=== PATIENT | male | born 1990 | race Caucasian/White ===

== ENCOUNTER 2016-09-28 07:56 | Emergency (ER) | payer OTHER ==
[~2016-09-28] VITALS: Ht 170.2 cm; Wt 68.0 kg
[2016-09-28 08:00] VITALS: BP 117/61; PULSE 117; RESP 18; TEMP 97.5; O2SAT 98
[2016-09-28] MEDS ORDERED: predniSONE 20 MG TAB PO ONE (08:30)
[2016-09-28] MEDS ORDERED: SODIUM CHLOR 0.9% 1000 ML INJ 1,000 ML IV ONE (08:30)
--- NOTE | 2016-09-28 08:33 | PD ---
HPI Chief Complaint: General Weakness Time Seen by Provider: 08:12 Travel History International Travel<30 days: No Contact w/Intl Traveler<30days: No Traveled to known affect area: No History of Present Illness HPI This patient reports that he had some low-grade fever and congestion. 10 days ago he was started on antibiotics which she doesn't know the name of. Shortly thereafter his hands became bright red and irritated and he started to get some peeling of his feet. No involvement of other mucous membranes. He feels lightheaded and some generalized weakness. Symptoms severity is moderate. No longer has fever. He has no vomiting or diarrhea or cough or runny nose or congestion at this time. No syncope. No alleviating factors. PFSH Past Medical History ADHD: Yes Musculoskeletal: Yes (degenerative disc ) ?: Not Social History Alcohol Use: No Tobacco Use: No Substance Use: No Allergies-Medications (Allergen,Severity, Reaction): Coded Allergies: Sulfa (Verified Allergy, Unknown, 09/28/16) Toradol (Verified Allergy, Unknown, 09/28/16) Review of Systems General / Constitutional: No: Fever Eyes: No: Visual changes HENT: Positive: Lightheadedness, No: Headaches Cardiovascular: Positive: Tachycardia, No: Chest Pain or Discomfort Respiratory: No: Shortness of Breath Gastrointestinal: No: Abdominal Pain Genitourinary: No: Dysuria Musculoskeletal: Positive: Weakness, No: Pain Skin: Positive Rash, Positive Itching, Positive Change in Pigmentation Neurologic: Positive: Weakness, Dizziness Psychiatric: No: Depression Endocrine: No: Polydipsia Hematologic/Lymphatic: No: Easy Bruising Physical Exam Narrative GENERAL: Well-nourished, well-developed patient in no apparent distress. SKIN: Focused skin assessment reveals prominent macular erythema of both hands but no where else. A bit of peeling skin on the soles of the feet but no erythema there. Skin is Warm and dry. HEAD: Atraumatic. Normocephalic. EYES: Pupils equal and round. No scleral icterus. No injection or drainage. ENT: No nasal bleeding or discharge. Mucous membranes pink and moist. NECK: Trachea midline. No JVD. CARDIOVASCULAR: Regular rate and rhythm. No murmur appreciated. Heart rate 115 RESPIRATORY: No accessory muscle use. Clear to auscultation. Breath sounds equal bilaterally. GASTROINTESTINAL: Abdomen soft, non-tender, nondistended. Hepatic and splenic margins not palpable. MUSCULOSKELETAL: No obvious deformities. No clubbing. No cyanosis. No edema. NEUROLOGICAL: Awake and alert. No obvious cranial nerve deficits. Motor grossly within normal limits. Normal speech. PSYCHIATRIC: Appropriate mood and affect; insight and judgment normal. Data Data Last Documented VS Vital Signs Date Time Temp Pulse Resp B/P Pulse Ox O2 Delivery O2 Flow Rate FiO2 09/28/16 09:54 117 18 111/60 96 Room Air 09/28/16 08:00 97.5 Orders Iv Access Insert/Monitor (09/28/16 08:24) Complete Blood Count With Diff (09/28/16 08:24) Basic Metabolic Panel (Bmp) (09/28/16 08:24) Westergren Sedimentation Rate (09/28/16 08:24) Sodium Chlor 0.9% 1000 Ml Inj (Ns 1000 M (09/28/16 08:30) Prednisone (Deltasone) (09/28/16 08:30) Labs Laboratory Tests Test 09/28/16 08:30 White Blood Count 13.7 TH/MM3 Red Blood Count 3.41 MIL/MM3 Hemoglobin 10.2 GM/DL Hematocrit 29.4 % Mean Corpuscular Volume 86.4 FL Mean Corpuscular Hemoglobin 30.0 PG Mean Corpuscular Hemoglobin 34.8 % Concent Red Cell Distribution Width 13.2 % Platelet Count 164 TH/MM3 Mean Platelet Volume 7.6 FL Neutrophils (%) (Auto) 91.3 % Lymphocytes (%) (Auto) 3.0 % Monocytes (%) (Auto) 5.3 % Eosinophils (%) (Auto) 0.1 % Basophils (%) (Auto) 0.3 % Neutrophils # (Auto) 12.5 TH/MM3 Lymphocytes # (Auto) 0.4 TH/MM3 Monocytes # (Auto) 0.7 TH/MM3 Eosinophils # (Auto) 0.0 TH/MM3 Basophils # (Auto) 0.0 TH/MM3 CBC Comment AUTO DIFF Differential Total Cells 100 Counted Neutrophils % (Manual) 70 % Band Neutrophils % 18 % Lymphocytes % 6 % Monocytes % 5 % Basophils % 1 % Neutrophils # (Manual) 12.1 TH/MM3 Differential Comment FINAL DIFF MANUAL Platelet Estimate NORMAL Platelet Morphology Comment NORMAL Red Cell Morphology Comment NORMAL Erythrocyte Sedimentation Rate 82 mm/hr Sodium Level 135 MEQ/L Potassium Level 3.8 MEQ/L Chloride Level 99 MEQ/L Carbon Dioxide Level 24.9 MEQ/L Anion Gap 11 MEQ/L Blood Urea Nitrogen 28 MG/DL Creatinine 1.24 MG/DL Estimat Glomerular Filtration 70 ML/MIN Rate Random Glucose 161 MG/DL Calcium Level 8.8 MG/DL MDM Medical Decision Making Medical Screen Exam Complete: Yes Emergency Medical Condition: Yes Medical Record Reviewed: Yes Differential Diagnosis Allergic reaction, adverse side effect of medication, rheumatologic illness Narrative Course I have reviewed the patient's electronic medical record. Etiology of his presentation is not entirely clear. I think most likely some type of allergic reaction to antibiotic he is taking. He has tachycardia and some vague generalized symptoms. The only real objective finding is skin exam of hands and feet. No involvement of oral cavity or other mucous membranes. IV placed I gave him 1 L normal saline IV CBC shows some minor abnormalities Metabolic profile shows normal renal function Sedimentation rate is elevated at 82 I gave him 60 mg of prednisone and 1 L normal saline IV bolus He should call his primary physician when he gets home to get follow-up. I'm writing him 5 days of prednisone I don't believe this is infectious He will stop his antibiotics which I don't think he needs at this point and may be the cause of his problem Is not Carlos-Heriberto syndrome Diagnosis Primary Impression: Allergic reaction caused by a drug Qualified Code: T78.40XA - Allergic reaction caused by a drug, initial encounter Additional Impressions: Dizziness Rash and nonspecific skin eruption Additional Instructions: The patient was advised to follow up with their physician and return if they worsen. Take prednisone for the next 5 days Use Benadryl every 6 hours for the next 2 days but watch for sedation Stop antibiotics Med/Other Pt SpecificInfo: Prescription(s) given Scripts Prednisone 20 Mg Tab40 Mg PO DAILY #10 TAB Ref 0 Take 40 mg (2 tablets) daily for 5 days Prov:Stephen Mcginnis MD 09/28/16 Disposition: 01 DISCHARGE HOME Condition: Stable Stephen Mcginnis MD September 28, 2016 08:32
[2016-09-28 08:59] LABS: AUTOMATED NEUTROPHIL # 12.5 TH/MM3 (1.8-7.7); BASOPHIL % 0.3 % (0.0-2.0); EOSINOPHIL % 0.1 % (0.0-4.0); HEMATOCRIT 29.4 % (39.0-51.0); LYMPHOCYTE # 0.4 TH/MM3 (1.0-4.8); MEAN CELL VOLUME 86.4 FL (80.0-100.0); MEAN CORPUSCULAR HGB CONC 34.8 % (32.0-36.0); MONO % 5.3 % (0.0-8.0); NEUT % 91.3 % (16.0-70.0); PLATELET COUNT 164 TH/MM3 (150-450); RED BLOOD COUNT 3.41 MIL/MM3 (4.50-5.90); RED CELL DISTRIBUTION WIDTH 13.2 % (11.6-17.2); WHITE BLOOD COUNT 13.7 TH/MM3 (4.0-11.0)
[2016-09-28 09:03] LABS: HEMO FLAGS AUTO DIFF
[2016-09-28 09:12] LABS: BICARBONATE 24.9 MEQ/L (21.0-32.0); POTASSIUM 3.8 MEQ/L (3.5-5.1)
[2016-09-28 09:54] VITALS: BP 111/60; PULSE 117; RESP 18; O2SAT 96
[2016-09-28 09:57] LABS: BANDS 18 % (0-6); BASOPHILS 1 % (0-2); NEUTROPHIL # MANUAL DIFF 12.1 TH/MM3 (1.8-7.7); POLYS (SEG NEUTROPHILS) 70 % (16-70); WBC DIFF SAMPLE 100
[2016-09-28 09:58] LABS: PLATELET ESTIMATE SMEAR NORMAL (NORMAL); PLATELET MORPHOLOGY NORMAL (NORMAL); SCAN/DIFF FINAL DIFF MANUAL
[2016-09-28] MEDS ORDERED: PRED20 PO (11:08)
== END 2016-09-28 11:22 | disposition home or self-care (01) ==
LOC: NEPE 07:56
DX: L27.0 Generalized skin eruption due to drugs and medicaments taken internally (principal); T36.95XA Adverse effect of unspecified systemic antibiotic, initial encounter; R42 Dizziness and giddiness; R50.9 Fever, unspecified; R00.0 Tachycardia, unspecified
CPT/HCPCS: 80048; 85007; 85027; 85652; 99284; J7030; J7512

== ENCOUNTER 2016-09-30 14:48 | Inpatient (IN) | payer OTHER ==
[2016-09-30] VITALS (22 sets, daily range): BP systolic 83–147; BP diastolic 40–73; PULSE 127–162; RESP 14–28; TEMP 102.3–104.7; O2SAT 94–100
[~2016-09-30] VITALS: Ht 172.7 cm; Wt 71.5 kg
[~2016-09-30 14:48] MED LIST: PRED20 PO
[2016-09-30] MEDS ORDERED: TYLETAB34 PO (14:55)
[2016-09-30] MEDS ORDERED: ACYC200C66 PO (14:55)
[2016-09-30] MEDS ORDERED: fentaNYL DRIP 250 ML IV SCH (15:00)
[2016-09-30] MEDS ORDERED: ROCURONIUM INJ 50 MG/5 ML VIAL IV ONE (15:00)
[2016-09-30] MEDS ORDERED: fentaNYL DRIP 250 ML ONE (15:00)
[2016-09-30] MEDS ORDERED: SODIUM CHLOR 0.9% 1000 ML INJ 1,000 ML IV ONE ×3 (15:00→15:15)
[2016-09-30] MEDS ORDERED: ETOMIDATE 20 MG/10 ML VIAL IV PUSH ONE (15:00)
[2016-09-30] MEDS ORDERED: MIDAZOLAM 100 MG/ML INJ 100 ML ONE (15:00)
[2016-09-30] MEDS ORDERED: MIDAZOLAM 100 MG/ML INJ 100 ML IV SCH (15:00)
[2016-09-30] MEDS ORDERED: MECL25CH CHEW (15:13)
[2016-09-30] MEDS ORDERED: IBUP-232 PO (15:13)
[2016-09-30] MEDS ORDERED: cefTRIAXone INJ 2,000 MG in SODIUM CHLORIDE 0.9% INJ 100 ML IV ONE (15:15)
[2016-09-30] MEDS ORDERED: PIPERACIL-TAZO 3.375 GM PREMIX 50 ML IV ONE (15:15)
[2016-09-30] MEDS ORDERED: VANCOMYCIN INJ 1,000 MG in SODIUM CHLOR 0.9% 250 ML INJ 250 ML IV ONE (15:15)
--- NOTE | 2016-09-30 15:26 | PD ---
HPI Chief Complaint: Altered Mental Status Time Seen by Provider: 14:50 Travel History International Travel<30 days: No Contact w/Intl Traveler<30days: No Traveled to known affect area: No History of Present Illness HPI 26 years old male was brought in by EMS for altered mental status. Patient was last seen normal by the landlord 2 days ago. Patient was seen in emergency room 2 days ago for diagnosis of allergic reaction. Patient reported that he had low-grade fever and congestion at the visit 2 days ago. Patient was seen 10 days before that by unknown physician and was given antibiotic. Patient state to the physician at last visit that he does not know the name of the medication. Shortly after taking the antibiotic patient complains of red rash on the hands and peeling on his feet. Patient complains of generalized weakness and lightheadedness at that visit. Patient states that the fever subsided on the day of examination. Patient was given prescription for prednisone 40 mg daily for 5 days. Patient was advised to follow with local physician. Patient's landlord palpation with altered mental status today. EMS was called. Patient was with severe lethargy and unable to give information today. GCS was 10 at the scene. Family members call. Patient has a rash on the hands and feet for the past 2 weeks. Patient has been seen by local physicians for the rash. Family member states that the rash was painful with swelling of the hand and feet. The rash finally got better recently. Family member states the patient is allergic to sulfa, Toradol, penicillin, hydrocodone, codeine. Family member states that patient has history of substance abuse and was in rehabilitation recently. Last rehabilitation was a year ago. PFSH Past Medical History Medical History: Unable to Obtain ADHD: Yes Musculoskeletal: Yes (degenerative disc ) Influenza Vaccination: No Past Surgical History Surgical History: Unable to Obtain Social History Alcohol Use: No Tobacco Use: No Substance Use: No (uto) Allergies-Medications (Allergen,Severity, Reaction): Coded Allergies: Sulfa (Verified Allergy, Unknown, 09/30/16) Toradol (Verified Allergy, Unknown, 09/30/16) Reported Meds & Prescriptions Reported Meds & Active Scripts Active Prednisone 20 Mg Tab 40 Mg PO DAILY Take 40 mg (2 tablets) daily for 5 days Reported Ibuprofen 600 Mg Tab 600 Mg PO Q6H PRN Meclizine (Meclizine HCl) 25 Mg Chew 25 Mg CHEW DIRECTED PRN Acyclovir 200 Mg Cap 200 Mg PO 5 TIMES A DAY Tylenol-Codeine #3 (Acetaminophen-Codeine) 300-30 mg Tab 1 Tab PO Q4H PRN Review of Systems ROS Limitations: Altered Mental Status Physical Exam Narrative GENERAL: Well-nourished, well-developed patient. SKIN: Focused skin assessment warm/dry. Patient has red macular rash on the feet bilaterally to the ankle. Patient has red macular rash on both knees. Patient has sloughing of the skin on the right big toe. Patient has redness discoloration of both palms of the hands. HEAD: Normocephalic. EYES: No scleral icterus. No injection or drainage. Pupils 3 mm equal reactive. NECK: Supple, trachea midline. No JVD or lymphadenopathy. Patient moves the head and neck around freely. Oral mucous membranes extremely dry. CARDIOVASCULAR: Tachycardia rate and rhythm without murmurs, gallops, or rubs. RESPIRATORY: Breath sounds equal bilaterally. No accessory muscle use. GASTROINTESTINAL: Abdomen soft, non-tender, nondistended. MUSCULOSKELETAL: No cyanosis, or edema. BACK: Nontender without obvious deformity. No CVA tenderness. Neurologic exam: Patient's obtunded. Patient responded to painful stimuli. Deep tendon reflexes 2+ and equal. Negative Babinski. Data Data Last Documented VS Vital Signs Date Time Temp Pulse Resp B/P Pulse Ox O2 Delivery O2 Flow Rate FiO2 09/30/16 17:06 130 14 115/55 97 09/30/16 16:58 Ventilator 09/30/16 16:50 40 09/30/16 14:51 102.3 Orders Etomidate Inj (Amidate Inj) (09/30/16 15:00) Rocuronium Inj (Zemuron Inj) (09/30/16 15:00) Sodium Chlor 0.9% 1000 Ml Inj (Ns 1000 M (09/30/16 15:00) Sodium Chlor 0.9% 1000 Ml Inj (Ns 1000 M (09/30/16 15:00) Neurological Rass Scale Q30MX2,Q2HX4,Q4H (09/30/16 14:50) Fentanyl Drip (Fentanyl Drip) (09/30/16 15:00) Midazolam Inj (Versed Inj) (09/30/16 15:00) Neurological Rass Scale Q30MX2,Q2HX4,Q4H (09/30/16 14:50) Lactic Acid Sepsis Protocol (09/30/16 14:52) Electrocardiogram (09/30/16 14:53) Complete Blood Count With Diff (09/30/16 14:53) Comprehensive Metabolic Panel (09/30/16 14:53) Creatine Kinase (Cpk) (09/30/16 14:53) Troponin I (09/30/16 14:53) Prothrombin Time / Inr (Pt) (09/30/16 14:53) Act Partial Throm Time (Ptt) (09/30/16 14:53) Arterial Blood Gas (Abg) (09/30/16 14:53) Blood Culture (09/30/16 14:53) Urinalysis - C+S If Indicated (09/30/16 14:53) Magnesium (Mg) (09/30/16 14:53) Thyroid Stimulating Hormone (09/30/16 14:53) Phosphorus (Po4) (09/30/16 14:53) Chest, Single Ap (09/30/16 14:53) Ct Brain W/O Iv Contrast(Rout) (09/30/16 14:53) Iv Access Insert/Monitor (09/30/16 14:53) Ecg Monitoring (09/30/16 14:53) Oximetry (09/30/16 14:53) Urinary Catheter Insert/Apply (09/30/16 14:53) Drug Screen, Random Urine (09/30/16 14:53) Alcohol (Ethanol) (09/30/16 14:53) Salicylates (Aspirin) (09/30/16 14:53) Tylenol (Acetaminophen) (09/30/16 14:53) Midazolam Inj (Versed Inj) (09/30/16 15:00) Fentanyl Drip (Fentanyl Drip) (09/30/16 15:00) Ceftriaxone Inj (Rocephin Inj) (09/30/16 15:15) Vancomycin Inj (Vancomycin Inj) (09/30/16 15:15) Piperacil-Tazo 3.375 Gm Premix (Zosyn 3. (09/30/16 15:15) Sodium Chlor 0.9% 1000 Ml Inj (Ns 1000 M (09/30/16 15:15) Diltiazem Inj (Cardizem Inj) (09/30/16 15:30) Propofol 1000 Mg/100 Ml Inj (Diprivan 10 (09/30/16 16:30) Propofol 1000 Mg/100 Ml Inj (Diprivan 10 (09/30/16 16:27) Lorazepam Inj (Ativan Inj) (09/30/16 16:30) Lorazepam Inj (Ativan Inj) (09/30/16 16:29) CKMB (09/30/16 15:15) CKMB% (09/30/16 15:15) Mri Brain W&W/O Contrast (09/30/16 16:59) Norepinephrine-Dextrose Drip (Levophed-D (09/30/16 17:15) Terbutaline Inj (Brethine Inj) (09/30/16 17:15) Labs Laboratory Tests Test 09/30/16 09/30/16 09/30/16 09/30/16 14:53 15:00 15:05 15:15 Blood Gas Puncture Site RT Blood Gas Patient Temperature 98.6 Blood Gas HCO3 21 mmol/L Blood Gas Base Excess -3.3 mmol/L Blood Gas Oxygen Saturation 98 % Arterial Blood pH 7.38 Arterial Blood Partial 36 mmHg Pressure CO2 Arterial Blood Partial 215 mmHG Pressure O2 Arterial Blood Oxygen Content 13.5 Vol % Arterial Blood 0.7 % Carboxyhemoglobin Arterial Blood Methemoglobin 0.5 % Blood Gas Hemoglobin 9.4 G/DL Oxygen Delivery Device VENTILATOR Blood Gas Ventilator Setting AC14/500/5PEEP Blood Gas Inspired Oxygen 60 % Lactic Acid Level 3.7 mmol/L Urine Color YELLOW Urine Turbidity HAZY Urine pH 5.5 Urine Specific [place] 1.014 Urine Protein 30 mg/dL Urine Glucose (UA) NEG mg/dL Urine Ketones NEG mg/dL Urine Occult Blood SMALL Urine Nitrite NEG Urine Bilirubin NEG Urine Urobilinogen LESS THAN 2.0 MG/DL Urine Leukocyte Esterase SMALL Urine RBC 1 /hpf Urine WBC 5 /hpf Microscopic Urinalysis Comment CULT NOT INDICATED Urine Opiates Screen POS Urine Barbiturates Screen NEG Urine Amphetamines Screen POS Urine Benzodiazepines Screen NEG Urine Cocaine Screen NEG Urine Cannabinoids Screen NEG White Blood Count 19.7 TH/MM3 Red Blood Count 3.33 MIL/MM3 Hemoglobin 9.9 GM/DL Hematocrit 29.2 % Mean Corpuscular Volume 87.5 FL Mean Corpuscular Hemoglobin 29.8 PG Mean Corpuscular Hemoglobin 34.0 % Concent Red Cell Distribution Width 13.9 % Platelet Count 163 TH/MM3 Mean Platelet Volume 8.3 FL Neutrophils (%) (Auto) 87.4 % Lymphocytes (%) (Auto) 5.1 % Monocytes (%) (Auto) 6.4 % Eosinophils (%) (Auto) 0.9 % Basophils (%) (Auto) 0.2 % Neutrophils # (Auto) 17.2 TH/MM3 Lymphocytes # (Auto) 1.0 TH/MM3 Monocytes # (Auto) 1.3 TH/MM3 Eosinophils # (Auto) 0.2 TH/MM3 Basophils # (Auto) 0.0 TH/MM3 CBC Comment AUTO DIFF Differential Comment AUTO DIFF CONFIRMED Platelet Estimate NORMAL Platelet Morphology Comment NORMAL Red Cell Morphology Comment NORMAL Prothrombin Time 13.6 SEC Prothromb Time International 1.2 RATIO Ratio Activated Partial 28.2 SEC Thromboplast Time Sodium Level 147 MEQ/L Potassium Level 4.7 MEQ/L Chloride Level 110 MEQ/L Carbon Dioxide Level 26.6 MEQ/L Anion Gap 10 MEQ/L Blood Urea Nitrogen 54 MG/DL Creatinine 1.69 MG/DL Estimat Glomerular Filtration 49 ML/MIN Rate Random Glucose 160 MG/DL Calcium Level 8.8 MG/DL Phosphorus Level 4.0 MG/DL Magnesium Level 2.7 MG/DL Total Bilirubin 0.8 MG/DL Aspartate Amino Transf 91 U/L (AST/SGOT) Alanine Aminotransferase 72 U/L (ALT/SGPT) Alkaline Phosphatase 175 U/L Total Creatine Kinase 372 U/L Creatine Kinase MB 7.6 NG/ML Creatine Kinase MB % 2.0 % Troponin I 11.90 NG/ML Total Protein 7.3 GM/DL Albumin 2.4 GM/DL Thyroid Stimulating Hormone 0.160 uIU/ML 3rd Gen Salicylates Level LESS THAN 1.7 MG/DL Acetaminophen Level LESS THAN 2.0 MCG/ML Ethyl Alcohol Level LESS THAN 3 MG/DL MDM Medical Decision Making Medical Screen Exam Complete: Yes Emergency Medical Condition: Yes Interpretation(s) Last Impressions Chest X-Ray 09/30/16 3426 Signed Impressions: Service Date/Time: Friday, September 30, 2016 15:23 - CONCLUSION: No acute cardiopulmonary disease demonstrated. Appropriate endotracheal tube tip position. Nasogastric tube courses into the stomach, tip not included on the study. Michael Freitas MD 1607 p.m. CBC WBC 19.7. Hemoglobin 9.9 hematocrit 29.2. 87 neutrophil. UA is negative. ABG pH 7.38. PCO2 36. PO2 215. Patient on 60 % O2 ventilator setting 17 11 PM. BUN 54. Creatinine 1.69. GFR 49. Glucose 160. Lactic acid 3.7. Magnesium 2.7. Troponin 11.90. Alkaline phosphatase 175. Total CK 372. Normal MB fraction. Troponin 11.90. TSH 0.16. Salicylate and acetaminophen level normal. Urine drug screen positive for opiates and amphetamine. Alcohol negative. Differential Diagnosis Differential diagnosis including sepsis, meningitis, dehydration, electrolyte imbalance, substance abuse. Narrative Course 26 years old male with altered mental status, rash on the feet. Patient critically ill. Patient's obtunded. Patient was intubated. Normal saline solution 3 L IV bolus. Rocephin 2 g IV. Vancomycin 1 g IV. Fentanyl, Versed , propofol drip started. Jerez catheter inserted. Family reported allergies to penicillin. Zosyn was ordered originally and then canceled. Critical Care Narrative Aggregate critical care time was 60 minutes. Time to perform other separately billable procedures was not included in the critical care time. My time did not include minutes spent treating any other patients simultaneously or on activities that did not directly contribute to the patient's treatment. The services I provided to this patient were to treat and/or prevent clinically significant deterioration that could result in: I provided critical care services requiring my management, as noted below: Chart data review, documentation time, medication orders and management, vital sign assessments/reviewing monitor data, ordering and reviewing lab tests, ordering and interpreting/reviewing x-rays and diagnostic studies, care of the patient and discussion of the patient with the admitting physicians. Procedures Procedure Narrative After the risks and benefits were discussed the following procedure was performed: INTUBATION: The patient was put in optimal position for the procedure. Rapid sequence intubation was initiated by me using 20 milligrams of etomidate IV and 50 milligrams of rocuronium IV. The patient was intubated with a 8 Indonesian cuffed endotracheal tube. Tube placement was confirmed by visualization of the tube and balloon passing through the cords, capnometry and subsequent chest x- ray. Breath sounds were equal and well aerated bilaterally postintubation. No breath sounds over stomach. Patient tolerated procedure well. Diagnosis Primary Impression: Sepsis Qualified Code: A41.9 - Sepsis, due to unspecified organism Additional Impressions: Intracranial hemorrhage Brain abscess Substance abuse Respiratory failure Qualified Code: J96.01 - Acute respiratory failure with hypoxia and hypercapnia Elevated troponin Admitting Information Admitting Physician Requests: Admit Edwin Macedo MD September 30, 2016 15:26
[2016-09-30] MEDS ORDERED: DILTIAZEM HCL 25 MG/5 ML VIAL IV ONE (15:30)
--- NOTE | 2016-09-30 15:41 | RADRPT ---
EXAM DATE/TIME: 09/30/2016 15:23 [facility] COMPARISON: No previous studies available for comparison. INDICATIONS : Post intubation, chest pain. MEDICAL HISTORY : None. SURGICAL HISTORY : None. ENCOUNTER: Initial ACUITY: 1 day PAIN SCORE: 0/10 LOCATION: Bilateral chest FINDINGS: No focal infiltrate demonstrated. No perceptible effusion. No pneumothorax. Heart size within normal limits. Endotracheal tube tip is approximately 4 cm above the syeda. There is a nasogastric tube coursing in to the stomach. CONCLUSION: No acute cardiopulmonary disease demonstrated. Appropriate endotracheal tube tip position. Nasogastri c tube courses into the stomach, tip not included on the study. Michael Freitas MD on September 30, 2016 at 15:38 Board Certified Radiologist. This report was verified electronically.
[2016-09-30 15:45] LABS: AUTOMATED NEUTROPHIL # 17.2 TH/MM3 (1.8-7.7); BASOPHIL % 0.2 % (0.0-2.0); EOSINOPHIL # 0.2 TH/MM3 (0-0.4); EOSINOPHIL % 0.9 % (0.0-4.0); HEMATOCRIT 29.2 % (39.0-51.0); LYMPH % 5.1 % (9.0-44.0); MEAN CELL VOLUME 87.5 FL (80.0-100.0); MEAN CORPUSCULAR HEMOGLOBIN 29.8 PG (27.0-34.0); MONO % 6.4 % (0.0-8.0); NEUT % 87.4 % (16.0-70.0); PLATELET COUNT 163 TH/MM3 (150-450); RED BLOOD COUNT 3.33 MIL/MM3 (4.50-5.90); RED CELL DISTRIBUTION WIDTH 13.9 % (11.6-17.2); WHITE BLOOD COUNT 19.7 TH/MM3 (4.0-11.0)
[2016-09-30 15:48] LABS: HEMO FLAGS AUTO DIFF
[2016-09-30 15:51] LABS: BLOOD GAS BASE EXCESS -3.3 mmol/L (-2-2); BLOOD GAS CARBOXYHEMOGLOBIN 0.7 % (0-4); BLOOD GAS HCO3 21 mmol/L (22-26); BLOOD GAS METHEMOGLOBIN 0.5 % (0-2); BLOOD GAS O2 HGB SATURATION 98 % (90-100); BLOOD GAS OXYGEN CONTENT 13.5 Vol % (12.0-20.0); BLOOD GAS PCO2 36 mmHg (38-42); BLOOD GAS PO2 215 mmHG (61-120); BLOOD GAS TOTAL HGB 9.4 G/DL (12.0-16.0); CRITICAL VALUE NO; DRAW SITE RT; FIO2 60 %; NUMBER OF ARTERIAL PUNCTURES 1; OXYGEN DEVICE VENTILATOR; STAT YES; TEMP CORR TO 98.6; ULNAR PULSE Y; VENT SETTINGS AC14/500/5PEEP
[2016-09-30 16:02] LABS: APTT (PATIENT) 28.2 SEC (24.3-30.1); INTERNATIONAL NORMALIZED RATIO 1.2 RATIO; PROTHROMBIN TIME - PATIENT 13.6 SEC (9.8-11.6)
[2016-09-30 16:03] LABS: AMPHETAMINE, URINE POS (NEG); BARBITURATES, URINE NEG (NEG); COCAINE, URINE NEG (NEG)
[2016-09-30 16:05] LABS: BLOOD, URINE SMALL (NEG); COMMENT (UR) CULT NOT INDICATED; CULTURE IF INDICATED CULT NOT INDICATED; GLUCOSE,URINE NEG (NEG); KETONE, URINE NEG (NEG); NITRITE,URINE NEG (NEG); PH, URINE 5.5 (5.0-8.5); URINE COLOR YELLOW (YELLW/STRAW)
[2016-09-30 16:11] LABS: PLATELET ESTIMATE SMEAR NORMAL (NORMAL); PLATELET MORPHOLOGY NORMAL (NORMAL); SCAN/DIFF AUTO DIFF CONFIRMED
[2016-09-30 16:27] LABS: ALKALINE PHOSPHATASE 175 U/L (45-117); ALT (GPT) 72 U/L (12-78); ANION GAP 10 MEQ/L (5-15); AST (GOT) 91 U/L (15-37); BICARBONATE 26.6 MEQ/L (21.0-32.0); BLOOD UREA NITROGEN 54 MG/DL (7-18); CHLORIDE 110 MEQ/L (98-107); CREATINE KINASE 372 U/L (39-308); GLOMERULAR FILTRATION RATE 49 ML/MIN (>89); MAGNESIUM 2.7 MG/DL (1.5-2.5); POTASSIUM 4.7 MEQ/L (3.5-5.1); SODIUM (NA) 147 MEQ/L (136-145); TOTAL BILIRUBIN ADULT 0.8 MG/DL (0.2-1.0)
[2016-09-30] MEDS ORDERED: PROPOFOL 1000 MG/100 ML INJ 100 ML ONE (16:27)
[2016-09-30] MEDS ORDERED: LORazepam 2 MG/ML VIAL ONE (16:29)
[2016-09-30] MEDS ORDERED: PROPOFOL 1000 MG/100 ML INJ 100 ML IV SCH (16:30)
[2016-09-30] MEDS ORDERED: LORazepam 2 MG/ML VIAL IV PUSH ONE (16:30)
[2016-09-30 16:31] LABS: ACETAMINOPHEN LESS THAN 2.0 MCG/ML (10.0-30.0)
[2016-09-30 16:48] LABS: CKMB 7.6 NG/ML (0.5-3.6)
--- NOTE | 2016-09-30 16:55 | RADRPT ---
EXAM DATE/TIME: 09/30/2016 16:31 [facility] COMPARISON: No previous studies available for comparison. INDICATIONS : Altered mental status. RADIATION DOSE: 56.35 CTDIvol (mGy) MEDICAL HISTORY : Non-responsive. SURGICAL HISTORY : Non-responsive. ENCOUNTER: Initial ACUITY: 1 day PAIN SCALE: 10/10 LOCATION: cranial TECHNIQUE: Multiple contiguous axial images were obtained of the head. Using automated exposure control and adj ustment of the mA and/or kV according to patient size, radiation dose was kept as low as reasonably a chievable to obtain optimal diagnostic quality images. FINDINGS: Vague areas of cerebral edema are seen in the right frontal and temporal lobes. A focal area falcine area of low-attenuation is seen in the left posterior parietal lobe, measures 17 mm in size. A simila r area measuring about 10 mm in size is seen along the anterior margin of the right thalamus. There i s approximate 3 mm of leftward midline shift. There is small subarachnoid blood in the sulci of the right high parietal lobe, to a lesser exte nt in between the leaves of the falx and the sulci of the left high parietal lobe.. No other intracra nial hemorrhage demonstrated. Skull is intact. A 2 cm mucous retention cyst is seen of the right sphenoid sinus. Visualized pa ranasal sinuses are otherwise clear. CONCLUSION: Noncontrast CT findings of concern for multiple intra-axial masses. There is small acute subarachnoid blood present and about 3 mm of leftward midline shift. MRI of the brain with and without contrast r ecommended. Michael Freitas MD on September 30, 2016 at 16:47 Board Certified Radiologist. This report was verified electronically.
[2016-09-30] MEDS ORDERED: TERBUTALINE INJ 1 MG/ML AMP SQ PRN (17:15)
[2016-09-30] MEDS ORDERED: NOREPINEPHRINE-DEXTROSE DRIP 250 ML IV SCH (17:15)
[2016-09-30 17:30] LABS: LACTIC ACID GHOST NOT REPORTABLE
[2016-09-30] MEDS ORDERED: Vancomycin Consult Pharmacy 1 EA OTHER SCH (17:30)
[2016-09-30] MEDS ORDERED: CHLORHEXIDINE GLUCONATE 2 % 1 PACK (2 CLOTHS) TOP PRN (17:45)
[2016-09-30] MEDS ORDERED: ONDANSETRON HCL 4 MG/2 ML VIAL IV PRN (17:45)
[2016-09-30] MEDS ORDERED: SODIUM CHLORIDE 0.9% FLUSH 10 ML FLUSH IV FLUSH PRN (17:45)
[2016-09-30] MEDS ORDERED: MISCELLANEOUS NURSING INFORMATION XX SCH (17:45)
[2016-09-30] MEDS: SODIUM CHLOR 0.9% 1000 ML INJ 1,000 ML IV SCH (18:00)
[2016-09-30] MEDS: ARTIFICIAL TEARS OPTH SOLN 15 ML BTL EACH EYE SCH (18:00)
[2016-09-30] MEDS ORDERED: GLUCAGON 1 MG/ML VIAL OTHER PRN (18:00)
[2016-09-30] MEDS ORDERED: DEXTROSE 50% IN WATER 50 ML VIAL(D50) IV PRN (18:00)
[2016-09-30] MEDS: INSULIN NovoLIN REGULAR SUPPLEMENTAL SCALE SQ SCH (18:00)
[2016-09-30] MEDS ORDERED: GADODIAMIDE PF 287 MG/ML 5 ML VIAL (for RAD MRI) IV ONE (18:04)
--- NOTE | 2016-09-30 18:20 | HHI.HP ---
HPI Service Critical Care Medicine Primary Care Physician Unknown Admission Diagnosis brain abscess. Intracranial hemorrhage. Sepsis. Diagnosis: Chief Complaint: altered mental status Travel History International Travel<30 Days: No Contact w/Intl Traveler <30 Da: No Traveled to Known Affected Are: No History of Present Illness This is a 26yM who presents to the ED for altered mental status. On arrival, the patient was obtunded and emergently intubated. His roommate is with him and cannot provide much medical history. The remainder of the history is per EMS and ER documentation and my discussion with the ER physician. Per EMS and ED reports, patient was seen approximately 10 days prior to admission by an unknown physician in the clinic and given antibiotic for fever. After taking the antibiotic, the patient had a new red rash on his hands and healing on his feet. He he was seen in the emergency department 2 days prior to admission for low-grade fever and congestion, generalized weakness, lightheadedness. At that time she was given prescription for prednisone 40 mg daily for 5 days. The patient's landlord apparently found the patient today with altered mental status and called EMS. When EMS arrived, his GCS was 10. There is reports that the patient has a history of substance abuse and was recently in rehabilitation. I did talk to the roommate who confirms that the patient had recently gotten out of rehabilitation and was living with him. The remainder does say that he does not think the patient has been taking any illicit substances recently. In the emergency department, the patient was hypotensive, tachycardic. His head CT is significant for significant areas of infarction in the right frontal , temporal, and cerebellar regions as well as a small area of subarachnoid hemorrhage in the superior right parietal region. Patient has early 3 mm of midline shift as well as effacement on the right. Patient's laboratory data is significant for white blood cell count of 19,000, hemoglobin of 9.9, lactate of 3.7, creatinine 1.69, CK 372, troponin of 11.9. His urine drug screen is positive for opiates and amphetamines. I performed a bedside critical care ultrasound which demonstrated hyperdynamic left ventricular function and what appears to be aortic valve vegetations and I measured to be proximally 0.9 x 8.8 cm. This is associated with what appears to be severe aortic regurgitation. There is no pericardial effusion. Right ventricular function is preserved. A formal echo has been ordered to confirm these findings. Critical care medicine has been consulted to evaluate and manage his shock, altered mental status, multiple areas of infarction, and subarachnoid hemorrhage. Review of Systems ROS Limitations: Clinical Condition, Intubated, Altered Mental Status, Unresponsive Past Family Social History Allergies: Coded Allergies: Sulfa (Verified Allergy, Unknown, 09/30/16) Toradol (Verified Allergy, Unknown, 09/30/16) Past Medical History Patient is obtunded, intubated and unable to provide any additional past medical history. Per chart review: ADHD History of substance abuse status post rehabilitation Degenerative disc disease Past Surgical History Unknown and unobtainable secondary to patient's clinical condition. Reported Medications Unobtainable secondary to the patient's clinical condition. Per chart review: Prednisone 20 Mg Tab 40 Mg PO DAILY Take 40 mg (2 tablets) daily for 5 days Ibuprofen 600 Mg Tab 600 Mg PO Q6H PRN Meclizine (Meclizine HCl) 25 Mg Chew 25 Mg CHEW DIRECTED PRN Acyclovir 200 Mg Cap 200 Mg PO 5 TIMES A DAY Tylenol-Codeine #3 (Acetaminophen-Codeine) 300-30 mg Tab 1 Tab PO Q4H PRN Active Ordered Medications See MAR Family History Unknown and unobtainable secondary to patient's clinical condition Social History Unobtainable secondary to patient's clinical condition. Per chart review: No reported history of tobacco or alcohol abuse. Prior reported drug abuse status post rehabilitation Physical Exam Vital Signs Vital Signs Date Time Temp Pulse Resp B/P Pulse Ox O2 Delivery O2 Flow Rate FiO2 09/30/16 18:06 137 14 104/50 100 Ventilator 09/30/16 17:45 135 126/40 100 09/30/16 17:30 127 112/53 99 Ventilator 09/30/16 17:06 130 14 115/55 97 09/30/16 16:58 137 83/52 94 Ventilator 09/30/16 16:55 139 92/53 94 Ventilator 09/30/16 16:51 139 84/49 95 09/30/16 16:50 40 09/30/16 16:50 97 100 09/30/16 16:40 132 96/50 98 Ventilator 09/30/16 16:30 151 107/54 99 09/30/16 16:06 129 120/58 100 Ventilator 09/30/16 15:57 133 09/30/16 15:36 139 123/61 100 Ventilator 09/30/16 15:22 162 147/72 100 09/30/16 15:18 100 60 09/30/16 15:11 161 135/72 100 Ventilator 09/30/16 15:02 60 09/30/16 14:51 102.3 145 28 116/73 100 Physical Exam GENERAL: Young male, lying in bed, intubated, sedated, critically ill HEENT: Pupils 3 mm, equal, sluggishly reactive. Mucous members are dry. NECK: No JVD. Trachea midline. Orotracheally intubated CHEST: Equal chest rise. Clear to auscultation. CARDIOVASCULAR: Tachycardic rate, regular rhythm. II/ systolic and diastolic murmur. ABDOMEN: Soft, nontender, nondistended. No guarding. MUSCULOSKELETAL: There is a nonblanching macular rash primarily over the dorsal aspect of the bilateral feet up to the ankle. No peripheral edema. Distal pulses 2+. NEUROLOGICAL: RASS -5. Recently intubated and sedated. Laboratory Laboratory Tests Test 09/30/16 09/30/16 09/30/16 09/30/16 14:53 15:00 15:05 15:15 Blood Gas Puncture Site RT Blood Gas Patient Temperature 98.6 Blood Gas HCO3 21 Blood Gas Base Excess -3.3 Blood Gas Oxygen Saturation 98 Arterial Blood pH 7.38 Arterial Blood Partial 36 Pressure CO2 Arterial Blood Partial 215 Pressure O2 Arterial Blood Oxygen Content 13.5 Arterial Blood 0.7 Carboxyhemoglobin Arterial Blood Methemoglobin 0.5 Blood Gas Hemoglobin 9.4 Oxygen Delivery Device VENTILATOR Blood Gas Ventilator Setting AC14/500/5PEEP Blood Gas Inspired Oxygen 60 Lactic Acid Level 3.7 Urine Color YELLOW Urine Turbidity HAZY Urine pH 5.5 Urine Specific [place] 1.014 Urine Protein 30 Urine Glucose (UA) NEG Urine Ketones NEG Urine Occult Blood SMALL Urine Nitrite NEG Urine Bilirubin NEG Urine Urobilinogen LESS THAN 2.0 Urine Leukocyte Esterase SMALL Urine RBC 1 Urine WBC 5 Microscopic Urinalysis Comment CULT NOT INDICATED Urine Opiates Screen POS Urine Barbiturates Screen NEG Urine Amphetamines Screen POS Urine Benzodiazepines Screen NEG Urine Cocaine Screen NEG Urine Cannabinoids Screen NEG White Blood Count 19.7 Red Blood Count 3.33 Hemoglobin 9.9 Hematocrit 29.2 Mean Corpuscular Volume 87.5 Mean Corpuscular Hemoglobin 29.8 Mean Corpuscular Hemoglobin 34.0 Concent Red Cell Distribution Width 13.9 Platelet Count 163 Mean Platelet Volume 8.3 Neutrophils (%) (Auto) 87.4 Lymphocytes (%) (Auto) 5.1 Monocytes (%) (Auto) 6.4 Eosinophils (%) (Auto) 0.9 Basophils (%) (Auto) 0.2 Neutrophils # (Auto) 17.2 Lymphocytes # (Auto) 1.0 Monocytes # (Auto) 1.3 Eosinophils # (Auto) 0.2 Basophils # (Auto) 0.0 CBC Comment AUTO DIFF Differential Comment AUTO DIFF CONFIRMED Platelet Estimate NORMAL Platelet Morphology Comment NORMAL Red Cell Morphology Comment NORMAL Prothrombin Time 13.6 Prothromb Time International 1.2 Ratio Activated Partial 28.2 Thromboplast Time Sodium Level 147 Potassium Level 4.7 Chloride Level 110 Carbon Dioxide Level 26.6 Anion Gap 10 Blood Urea Nitrogen 54 Creatinine 1.69 Estimat Glomerular Filtration 49 Rate Random Glucose 160 Calcium Level 8.8 Phosphorus Level 4.0 Magnesium Level 2.7 Total Bilirubin 0.8 Aspartate Amino Transf 91 (AST/SGOT) Alanine Aminotransferase 72 (ALT/SGPT) Alkaline Phosphatase 175 Total Creatine Kinase 372 Creatine Kinase MB 7.6 Creatine Kinase MB % 2.0 Troponin I 11.90 Total Protein 7.3 Albumin 2.4 Thyroid Stimulating Hormone 0.160 3rd Gen Salicylates Level LESS THAN 1.7 Acetaminophen Level LESS THAN 2.0 Ethyl Alcohol Level LESS THAN 3 Date/Time Procedure Status Source Growth 09/30/16 15:05 Aerobic Blood Culture Received Blood Peripheral Pending 09/30/16 15:05 Anaerobic Blood Culture Received Blood Peripheral Pending Result Diagram: 09/30/16 1515 09/30/16 1515 Imaging Last Impressions Head CT 09/30/161452 Signed Impressions: Service Date/Time: Friday, September 30, 2016 16:31 - CONCLUSION: Noncontrast CT findings of concern for multiple intra-axial masses. There is small acute subarachnoid blood present and about 3 mm of leftward midline shift. MRI of the brain with and without contrast recommended. Michael Freitas MD Chest X-Ray 09/30/16 [id number] Signed Impressions: Service Date/Time: Friday, September 30, 2016 15:23 - CONCLUSION: No acute cardiopulmonary disease demonstrated. Appropriate endotracheal tube tip position. Nasogastric tube courses into the stomach, tip not included on the study. 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 He is very critically ill this time. I have consulted neurosurgery. His resuscitation will be very clinically difficult given his competing interests with his cardiogenic shock, valvulopathy, need for hyperosmolar therapy, acute CVAs, cerebral edema which is ongoing and likely will worsen. His prognosis is guarded at best will likely have a poor outcome. Plan by systems: Neurologic: Multiple acute septic CVAs Cerebral edema Small subarachnoid hemorrhage Midline shift, 3 mm Metabolic encephalopathy Neurosurgery consulted, Dr. Michelle q1h neuro checks --prop/fent for goal RASS -2. --avoid long-acting sedating meds --hyperosmolar therapy --f/u MRI --EEG Respiratory: Acute hypoxic and hypercarbic respiratory failure Vent bundle Head of bed 30 Avoid hypercarbia and hypoxia ABG now and in the morning Does not meet SBT criteria given his mental status and acute strokes Wean FiO2 for goal SPO2 greater than 92% Cardiovascular: Aortic valve endocarditis Cardiogenic shock Severe aortic insufficiency Possible aortic stenosis Septic shock IV fluid bolus resuscitation for septic shock Start 3% sodium chloride Arterial line, central line for invasive central pressure monitoring Antibodies as described below Follow-up formal echo Norepinephrine for goal map greater than 65 Renal: Acute kidney injury Jerez for accurate I's and O's Likely secondary to mixed septic and cardiogenic shock -- Strict I/Os FEN/GI: Hypermagnesemia Lactic acidosis Severe metabolic acidosis Acute protein calorie malnutritionmild Elevated LFTs Nothing by mouth OG tube to suction IV fluid resuscitation as above Serial sodiums, osmolalities Daily BMP, LFTs Heme/ID: Anemia, likely secondary to hemolysis from valvulopathy Infective endocarditis Septic shock Follow-up blood cultures Continue vancomycin, Rocephin add Flagyl for anaerobic coverage Consult infectious disease Endocrine: Hyperglycemia of critical illness -- SSI, every 6 hours, medium scale TSH is low, follow-up T3, free T4 Prophylaxis: GI Prophylaxis Protonix IV DVT Prophylaxis -- SCDs Holding pharmacologic DVT prophylaxis in the setting of cerebral hemorrhage Lines: Place arterial line. Place central line. May need PA catheter at some point for ongoing resuscitation and end-point of resuscitation goals. Dispo: Admit the ICU. He remains critically ill. This patient remains critically ill with one or more organ systems which are or may become a threat to life. I have spent in excess of 82 minutes discontinuously in the care and management of this patient. This time is exclusive of procedures, and includes, but is not limited to, evaluation of the patient, review of the medical record, discussions with family, consultants, nursing staff, or respiratory therapy, and documentation in the medical record. Code Status Full Code Discussed Condition With Dr. Sloan, Yahir Anderson MD September 30, 2016 18:20
--- NOTE | 2016-09-30 18:23 | RADRPT ---
EXAM DATE/TIME: 09/30/2016 17:42 [facility] COMPARISON: CT BRAIN W/O CONTRAST, September 30, 2016, 16:31. INDICATIONS : Altered mental status. Abnormal CT. MEDICAL HISTORY : None. SURGICAL HISTORY : None. ENCOUNTER: Subsequent ACUITY: 3 day PAIN SCORE: Nonresponsive. LOCATION: Please note a normal MRA of the brain does not entirely exclude the possibility of a small aneurysm, nor the possibility of distal intracranial vessel disease. TECHNIQUE: 3D time of flight MRA was performed. Source images, multiplanar STS MIP, and 3D volume MIP reconstru ctions were reviewed. FINDINGS: There is excellent visualization of the major intracranial arteries out to the second-order branch ve ssels. There is no evidence for aneurysm, vessel truncation or stenosis, and no evidence for vascula r malformation. CONCLUSION: No occlusion, aneurysm or other acute intracranial vascular abnormality demonstrated. Michael Freitas MD on September 30, 2016 at 18:21 Board Certified Radiologist. This report was verified electronically.
[2016-09-30] MEDS: PROPOFOL 1000 MG/100 ML INJ 100 ML IV SCH ×2 (18:26→21:19)
--- NOTE | 2016-09-30 18:52 | RADRPT ---
EXAM DATE/TIME: 09/30/2016 17:42 [facility] COMPARISON: MRA BRAIN W/O CONTRAST, September 30, 2016, 17:42. CT BRAIN W/O CONTRAST, September 30, 2016, 16:31. INDICATIONS : Altered mental status. Abnormal CT. CONTRAST: 14 cc Omniscan (gadodiamide) IV MEDICAL HISTORY : None. SURGICAL HISTORY : None. ENCOUNTER: Subsequent ACUITY: 3 day PAIN SCORE: Nonresponsive. LOCATION: cranial TECHNIQUE: Multiplanar, multisequence MRI of the brain was performed both prior to and following the administrat ion of paramagnetic contrast. FINDINGS: Numerous foci of are restricted diffusion are seen of both cerebral hemispheres. Most of the areas ar e 2.5 cm or less but there is a larger/broader area in the right temporal lobe that measures about 7. 6 cm. There is an area of the right thalamus that measures 1.5 cm. The bilateral cerebellar hemispher es are involved, up to 2.7 cm on the right and up to 1 cm on the left. No abnormal enhancement. No fl uid collections. Small subarachnoid blood seen in the sulci of both cerebral vertices, right more so than left. No par enchymal or subdural blood. There is about 4 mm of leftward midline shift. CONCLUSION: Numerous bilateral cerebral and cerebellar acute or subacute infarcts that are most likely embolic. P lease see above. No mass or evidence of abscess. 4 mm of leftward midline shift. Small subarachnoid b lood. Michael Freitas MD on September 30, 2016 at 18:46 Board Certified Radiologist. This report was verified electronically.
[2016-09-30] MEDS ORDERED: ACETAMINOPHEN 1000 MG/100 ML VIAL IV ONE (19:30)
[2016-09-30] MEDS: CHLORHEXIDINE 0.12% (ORAL KIT) 15 ML CUP MT SCH (20:00)
[2016-09-30] MEDS: DOCUSATE SODIUM 100 MG/10 ML UDC G-TUBE SCH (20:00)
[2016-09-30] MEDS ORDERED: 3% SALINE INJ 500 ML IV SCH (20:00)
--- NOTE | 2016-09-30 20:17 | RADRPT ---
EXAM DATE/TIME: 09/30/2016 18:45 [facility] COMPARISON: No previous studies available for comparison. INDICATIONS : Increased BUN/Creatinine. MEDICAL HISTORY : ADHD. Rash. Altered mental status. Degenerative disc disease. SURGICAL HISTORY : None. ENCOUNTER: Initial ACUITY: 1 day PAIN SCORE: Nonresponsive. LOCATION: Bilateral flank MEASUREMENTS: RIGHT KIDNEY: 13.3 x 5.5 x 5.4 cm LEFT KIDNEY: 14.0 x 5.3 x 4.8 cm FINDINGS: RIGHT KIDNEY: Renal cortex is normal in thickness and echotexture. No hydronephrosis, stone, or mass. LEFT KIDNEY: Renal cortex is normal in thickness and echotexture. No hydronephrosis, stone, or mass. BLADDER: Decompressed with a Jerez catheter, grossly unremarkable. Spleen appears enlarged, at least 17 cm craniocaudal. CONCLUSION: Ultrasound appearance of the kidneys within normal limits. Jerez catheter in the urinary bladder. Non specific splenomegaly incidentally noted. Michael Freitas MD on September 30, 2016 at 20:14 Board Certified Radiologist. This report was verified electronically.
[2016-09-30] MEDS ORDERED: NOREPINEPHRINE 4 MG/4 ML AMP ONE (20:37)
--- NOTE | 2016-09-30 20:41 | PD.PROCEDR ---
Procedure Note Procedure DATE: 09/30/16 CENTRAL LINE PLACEMENT: Left subclavian vein. INDICATION: Central venous access CONSENT Informed consent could not be obtained from patient due to clinical condition, altered mental status. There is no other individual available to consent. Reason patient's best interest to proceed with central venous access. Discussed with Dr. Cleve Dominguez who concurs. We'll proceed with procedure DESCRIPTION OF THE PROCEDURE The patient was placed in supine position, mild Trendelenburg. The skin was cleansed with Chloraprep. Additional barrier precautions included large sterile drape, sterile gloves, sterile gown, face mask, and hat. 1 % lidocaine was used for local anesthesia. Under direct ultrasound guidance and on single attempt, the vein was accessed with an introducer needle. The guide wire was advanced and the tract was dilated. Using Seldinger technique a 7 [place] 20 cm antimicrobial coated triple-lumen catheter was advanced to a depth of 18 centimeters. The guide wire was removed. All ports had good return of dark venous blood and flushed easily with saline. The central line was secured with 2.0 silk. A sterile dressing with antibiotic disc was applied. ESTIMATED BLOOD LOSS: Minimal COMPLICATIONS: No apparent complications. STAT chest x-ray is pending Renetta Reynoso MD September 30, 2016 20:41
--- NOTE | 2016-09-30 20:49 | PD.PROCEDR ---
Procedure Note Procedure DATE: 09/30/16 PROCEDURE: Left radial arterial catheter placement INDICATION: Hemodynamic and ABG monitoring. DETAILS OF PROCEDURE The patient was positioned and Nate test performed and demonstrated ulnar perfusion. The skin was cleansed with Chloraprep. Additional barrier precautions included sterile towel drape drape, sterile gloves, sterile gown, face mask, and hat. 1% lidocaine was used for local anesthesia. On the 3rd attempt, the artery was accessed with an introducer needle. The guide wire was advanced. Using Seldinger technique 20 gauge arterial catheter was placed. The guide wire was removed. The catheter was connected to a transducer line and flushed with saline. The video monitor displayed normal arterial wave forms. The catheter was secured with 2-0 silk. A sterile dressing with antibiotic disc was applied. ESTIMATED BLOOD LOSS: minimal COMPLICATIONS: None Renetta Reynoso MD September 30, 2016 20:49
[2016-09-30] MEDS: metroNIDAZOLE 500 MG INJ 100 ML IV SCH (21:19)
[2016-09-30] MEDS: SODIUM CHLORIDE 0.9% FLUSH 10 ML FLUSH IV FLUSH SCH (21:20)
--- NOTE | 2016-09-30 21:28 | RADRPT ---
EXAM DATE/TIME: 09/30/2016 21:06 [facility] COMPARISON: CHEST SINGLE AP, September 30, 2016, 15:23. INDICATIONS : Respiratory Failure, Short of Breath MEDICAL HISTORY : Unresponsive SURGICAL HISTORY : Unresponsive ENCOUNTER: Subsequent ACUITY: 1 day PAIN SCORE: Non-responsive. LOCATION: Bilateral chest FINDINGS: Minimal bibasilar atelectasis. No pleural effusion. No pneumothorax. Heart size stable, upper limits of normal. Endotracheal tube tip is approximately 3 cm above the syeda. Nasogastric tube courses into the stoma ch. There is a new left subclavian central venous catheter with tip in the superior vena cava. CONCLUSION: Endotracheal tube and nasogastric tube unchanged. Left subclavian central venous catheter has been pl aced, tip in superior vena cava. No pneumothorax or other acute complication. Michael Freitas MD on September 30, 2016 at 21:26 Board Certified Radiologist. This report was verified electronically.
[2016-09-30] MEDS: RESP: ALBUTEROL 2.5 MG/IPRATROPIUM 0.5 MG NEB (SCH) INH (22:25)
[2016-10-01] VITALS (13 sets, daily range): BP systolic 101–122; BP diastolic 49–64; PULSE 103–118; RESP 14–20; TEMP 99.7–100.2; O2SAT 98–100
[2016-10-01] MEDS: metroNIDAZOLE 500 MG INJ 100 ML IV SCH ×2 (02:10→07:34)
[2016-10-01] MEDS: ACETAMINOPHEN 325 MG TAB PO PRN ×3 (02:11→16:00)
[2016-10-01] MEDS: SODIUM CHLOR 0.9% 1000 ML INJ 1,000 ML IV SCH ×3 (02:51→19:25)
[2016-10-01] MEDS: cefTRIAXone INJ 2,000 MG in SODIUM CHLORIDE 0.9% INJ 100 ML IV SCH ×2 (03:03→14:30)
[2016-10-01] MEDS: RESP: ALBUTEROL 2.5 MG/IPRATROPIUM 0.5 MG NEB (SCH) INH ×4 (03:27→19:46)
[2016-10-01] MEDS: CHLORHEXIDINE GLUCONATE 2 % 1 PACK (2 CLOTHS) TOP SCH (03:57)
[2016-10-01 04:39] LABS: HEMATOCRIT 26.3 % (39.0-51.0); MEAN CORPUSCULAR HEMOGLOBIN 29.3 PG (27.0-34.0); MEAN CORPUSCULAR HGB CONC 33.3 % (32.0-36.0); PLATELET COUNT 109 TH/MM3 (150-450); RED BLOOD COUNT 2.99 MIL/MM3 (4.50-5.90); WHITE BLOOD COUNT 15.9 TH/MM3 (4.0-11.0)
[2016-10-01 04:53] LABS: INTERNATIONAL NORMALIZED RATIO 1.2 RATIO; PROTHROMBIN TIME - PATIENT 13.9 SEC (9.8-11.6)
[2016-10-01] MEDS ORDERED: VANCOMYCIN INJ 1,250 MG in SODIUM CHLOR 0.9% 250 ML INJ 250 ML IV SCH (05:00)
[2016-10-01 05:01] LABS: ALKALINE PHOSPHATASE 137 U/L (45-117); ALT (GPT) 59 U/L (12-78); ANION GAP 8 MEQ/L (5-15); AST (GOT) 80 U/L (15-37); BICARBONATE 24.4 MEQ/L (21.0-32.0); BLOOD UREA NITROGEN 32 MG/DL (7-18); CHLORIDE 119 MEQ/L (98-107); GLOMERULAR FILTRATION RATE 96 ML/MIN (>89); MAGNESIUM 2.6 MG/DL (1.5-2.5); POTASSIUM 3.7 MEQ/L (3.5-5.1); SODIUM (NA) 151 MEQ/L (136-145); TOTAL BILIRUBIN ADULT 0.6 MG/DL (0.2-1.0)
[2016-10-01 05:07] LABS: BLOOD GAS BASE EXCESS -3.3 mmol/L (-2-2); BLOOD GAS CARBOXYHEMOGLOBIN 0.7 % (0-4); BLOOD GAS HCO3 21 mmol/L (22-26); BLOOD GAS METHEMOGLOBIN 1.1 % (0-2); BLOOD GAS O2 HGB SATURATION 97 % (90-100); BLOOD GAS OXYGEN CONTENT 16.3 Vol % (12.0-20.0); BLOOD GAS PCO2 37 mmHg (38-42); BLOOD GAS PO2 163 mmHg (61-120); BLOOD GAS TOTAL HGB 11.7 G/DL (12.0-16.0); TEMP CORR TO 98.6
[2016-10-01 05:08] LABS: CRITICAL VALUE NO; DRAW SITE ART LINE; FIO2 40 %; OXYGEN DEVICE VENTILATOR; STAT NO; VENT SETTINGS AC14/500/PEEP5
[2016-10-01 05:16] LABS: HEMO FLAGS AUTO DIFF
[2016-10-01 05:20] LABS: BANDS 10 % (0-6); METAMYELOCYTES 1 % (0-1); MYELOCYTES 1 % (0-0); NEUTROPHIL # MANUAL DIFF 13.8 TH/MM3 (1.8-7.7); POLYS (SEG NEUTROPHILS) 75 % (16-70); WBC DIFF SAMPLE 100
[2016-10-01 05:21] LABS: SCAN/DIFF FINAL DIFF MANUAL
[2016-10-01 05:22] LABS: DOHLE BODIES PRESENT (NONE SEEN); PLATELET ESTIMATE SMEAR LOW (NORMAL); PLATELET MORPHOLOGY NORMAL (NORMAL); TOXIC VACUOLATION PRESENT (NONE SEEN)
[2016-10-01] MEDS: PROPOFOL 1000 MG/100 ML INJ 100 ML IV SCH ×3 (05:37→21:08)
[2016-10-01] MEDS: INSULIN NovoLIN REGULAR SUPPLEMENTAL SCALE SQ SCH ×4 (05:37→17:36)
--- NOTE | 2016-10-01 05:51 | RADRPT ---
EXAM DATE/TIME: 10/01/2016 05:10 [facility] COMPARISON: CHEST SINGLE AP, September 30, 2016, 21:06. INDICATIONS : Respiratory status. MEDICAL HISTORY : None. SURGICAL HISTORY : None. ENCOUNTER: Subsequent ACUITY: 4 - 6 days PAIN SCORE: Non-responsive. LOCATION: Bilateral chest FINDINGS: Lines and tubes are present not significantly changed. No definite pneumothorax is seen for technique . Slight bilateral perivascular infiltrate is seen worse on the left and slightly worse. Heart and me diastinum are unremarkable for technique. CONCLUSION: Slight worsening bilateral perihilar infiltrates. Angela Basilio MD on October 01, 2016 at 5:49 Board Certified Radiologist. This report was verified electronically.
[2016-10-01] MEDS: PANTOPRAZOLE SODIUM 40 MG VIAL IV SCH (07:34)
[2016-10-01] MEDS: CHLORHEXIDINE 0.12% (ORAL KIT) 15 ML CUP MT SCH ×2 (08:00→19:30)
[2016-10-01] MEDS: DOCUSATE SODIUM 100 MG/10 ML UDC G-TUBE SCH ×2 (08:00→19:30)
[2016-10-01] MEDS: SODIUM CHLORIDE 0.9% FLUSH 10 ML FLUSH IV FLUSH SCH ×2 (09:00→19:30)
[2016-10-01] MEDS: ARTIFICIAL TEARS OPTH SOLN 15 ML BTL EACH EYE SCH ×3 (09:00→17:53)
--- NOTE | 2016-10-01 11:39 | RADRPT ---
EXAM DATE/TIME: 10/01/2016 11:00 [facility] COMPARISON: MRI BRAIN W & W/O CONTRAST, September 30, 2016, 17:42. CT BRAIN W/O CONTRAST, September 30, 2016, 16:31. INDICATIONS : Change in edema, evaluate mid line shift. RADIATION DOSE: CTDIvol (mGy) MEDICAL HISTORY : Non-responsive. SURGICAL HISTORY : Non-responsive. ENCOUNTER: Subsequent ACUITY: 2 days PAIN SCALE: Non-responsive LOCATION: cranial TECHNIQUE: Multiple contiguous axial images were obtained of the head. Using automated exposure control and adj ustment of the mA and/or kV according to patient size, radiation dose was kept as low as reasonably a chievable to obtain optimal diagnostic quality images. FINDINGS: There are multifocal areas of abnormal low density bilaterally involving the parietal region at the h igh convexities and mid convexities, right basal ganglia, and right temporal lobe. There is also an a yrn of low density in the right cerebellum. Subtle high attenuation remains present on the sulci of t he right frontal high convexity. There is approximately 4 mm of [id number] midline shift compared to 2 mm previously. No new blood products are seen. Ventricles are normal in size. There is a stable mucous retention cyst in the sphenoid sinus. CONCLUSION: 1. Multifocal areas of low-density in the cerebrum and cerebellum, as above. These areas are now lowe r in attenuation and more well-defined typical of evolving edema. 2. There is approximately 4 mm of [id number] midline shift, increased from 2 mm on yesterday's exa mination. Michael Escalera MD on October 01, 2016 at 11:33 Board Certified Radiologist. This report was verified electronically.
--- NOTE | 2016-10-01 12:42 | MB ---
cc: MARIA DE JESUS MANCIA MD DATE OF CONSULTATION: 10/01/[address] 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 Antibiotic recommendation. Questionable penicillin allergy not documented. Rocephin given without anaphylaxis in ED. HISTORY OF PRESENT ILLNESS This is a 26-year-old white male who was brought to the emergency department with altered mental status. The patient reportedly was seen normal by his landlord two days prior. He was seen in the emergency department two days ago with a rash. The patient had been put on oral antibiotic 10 days prior for low grade fever and congestion and he developed bright red erythema at his feet and also his hands and there was peeling of the skin subsequently to that. There was no erythema noted at the soles of the feet. His white count was 13.7 at that time. Blood cultures were not taken. The patient was without fever but his white count was elevated and differential showed 18% bands. He also had elevated sedimentation rate of 82. It was felt that the rash was likely allergic reaction caused by a drug. It is unclear what antibiotic the patient was taking. The patient now is intubated and on the ventilator. Information is obtained from the medical record. He had a temperature of 102 degrees and heart rate of 130 and white count of 19.7. CT scan of the head was performed which showed multiple intra-axial masses and a small subacute subarachnoid blood. Subsequent MRI of the brain shows numerous bilateral cerebral and cerebellar acute or subacute infarcts that are most likely embolic. A 2-D echocardiogram was performed and it shows large aortic valve vegetation. The patient's temperature rosalva to 104 degrees yesterday evening. He has been started on antibiotic in the form of ceftriaxone and vancomycin. It is reported that his family stated that he is allergic to several medications including penicillin and sulfa. Currently he is on norepinephrine 6 mcg. Sputum culture has few gram-positive cocci in pairs and clusters. Chest x-ray showed slight worsening of bilateral perihilar infiltrates. The patient is currently unresponsive and he withdraws to stimulation. One blood culture set has gram-positive cocci in both bottles. PAST MEDICAL HISTORY 1. Substance abuse. The patient was in rehabilitation 1 year ago. 2. ADHD. 3. Degenerative disk disease. ALLERGIES Reportedly the patient is allergic to SULFA, PENICILLIN, TORADOL, CODEINE. MEDICATIONS 1. Ceftriaxone intravenous. 2. Vancomycin intravenous. 3. Metronidazole. 4. Protonix. 5. Norepinephrine. 6. DuoNeb. 7. Colace. 8. Tylenol. SOCIAL HISTORY Unobtainable at this time. FAMILY HISTORY Noncontributory. REVIEW OF SYSTEMS Unable to obtain. PHYSICAL EXAMINATION GENERAL: This is a slender well-developed male who is intubated on the ventilator. He is unresponsive. VITAL SIGNS: Temperature of 100.2. Systolic blood pressure 108, heart rate 118. HEENT: The pupils are reactive to light. No icterus. Positive conjunctival erythematous lesions at the lower eyelids. Oropharynx dry mucosa. NECK: No palpable adenopathy. No swelling. LUNGS: Basilar rhonchi. HEART: 3/6 systolic murmur at the left sternal border. ABDOMEN: Bowel sounds are present, soft, flat, nontender. RECTAL: Not performed. : Normal genitalia. EXTREMITIES: No clubbing or cyanosis or edema. The patient has embolic purpuric lesions at the plantar aspect of the great toe on the left and the second toe on the left and also the great toe on the right and several pinpoint purpuric lesions at the base of the foot beyond the toe plantar aspect. Bright red erythematous confluent rash is present at the feet with multiple punctate areas. There is peeled skin at the plantar aspect of both feet which is dried. There is confluent erythema at the arm both left and right and punctate erythematous lesion at the elbow on the right hand. There is no erythema at the chest, trunk, neck or face. The lower extremities have no edema. NEURO: Unable to assess. PSYCHE: Unable to assess. LABORATORY DATA WBC 15.9, platelets 109, hemoglobin 8.8, differential 10% bands, 75% neutrophils. Creatinine 0.95, BUN 32, estimated GFR 96. Sodium 151. Toxicology screen positive for amphetamines and opiates. Urinalysis unremarkable. MRSA nasal screen is negative. While doing this dictation another set of gram-positive cocci is reported, so therefore there are four positive blood culture bottles with gram-positive cocci. Sputum culture pending. Sputum gram stain showed gram-positive cocci in pairs and clusters. Chest x-ray shows worsening of perihilar infiltrates bilateral. IMPRESSION 1. Septic shock due to gram-positive cocci. 2. Acute endocarditis. 3. Acute respiratory failure. 4. Bilateral lung infiltrates, probably secondary to septic emboli. 5. 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 6. History of IV drug abuse. Unknown current use status. 7. Antibiotic allergies.. The patient reportedly is allergic to penicillin and sulfa. 8. Recent drug rash. It is not clear what antibiotic the patient received prior to development of the rash and this is yet to be definitively confirmed. RECOMMENDATIONS 1. Continue Vancomycin. 2. Continue Ceftriaxone. 3. Stop Metronidazole. 4. Monitor blood cultures. 5. Monitor sputum cultures. 6. Follow WBC. Given the history of recent reaction to probably antibiotic which the patient was taking, I would avoid use of penicillin and pay very close attention to him while he is receiving the ceftriaxone. The blood culture needs to be closely monitored for identity of bacteria and antibiotic adjustment. The patient is currently very critically ill. His progress will be monitored and further recommendations will be given on followup. Maria De Jesus Mancia MD FD/JULIO /11:32 AM /12:05 PM MTDRosalia
--- NOTE | 2016-10-01 13:17 | EKG ---
Date Performed: 09/30/2016 Time Performed: 15:22:56 PTAGE: 26 years EKG: Sinus tachycardia RIGHT BUNDLE BRANCH BLOCK with secondary ST-T wave changes ABNORMAL ECG NO PREVIOUS TRACING DOCTOR: Nino Rocha Interpretating Date/Time 10/01/2016 13:14:20
[2016-10-01 15:38] LABS: SODIUM (NA) 154 MEQ/L (136-145)
[2016-10-01 15:52] LABS: CREATINE KINASE 1064 U/L (39-308); FREE T3 LESS THAN 0.50 PG/ML (2.18-3.98); FREE T4 1.07 NG/DL (0.76-1.46)
[2016-10-01 16:09] LABS: CKMB 12.7 NG/ML (0.5-3.6)
--- NOTE | 2016-10-01 16:46 | PD.CONS ---
(Elliott Fragoso) HPI Service Neurosurgery Consult Requested By Dr Dominguez Reason for Consult Brain abscess Primary Care Physician Unknown History of Present Illness The HPI is obtained from a review of the EMR due to the patient's altered mental status and intubation. This is a 26-year-old male who was found by his landlord on with altered mental status and called EMS. Upon arrival of EMS the patient had a GCS of 10. In the emergency department the patient was hypotensive and tachycardiac. He was emergently intubated for airway protection. His CT brain demonstrated significant areas of infarction to the right frontal, temporal and cerebellar regions as well as a small subarachnoid haemorrhage to the superior right parietal region. There was a 3 mm midline shift as well as effacement on the right. The patient's laboratory data is significant for white blood cell count of 19,000, haemoglobin of 9.9, lactate of 3.7, creatinine 1.69, CK 372, troponin of 11.9. His urine drug screen is positive for opiates and amphetamines. He was subsequently admitted to the [facility] for further management and monitoring. Per EMS and ED reports, patient was seen approximately 10 days prior to admission by an unknown physician in the clinic and given antibiotic for fever. After taking the antibiotic, the patient had a new red rash on his hands and healing on his feet. He he was seen in the emergency department 2 days prior to admission for low-grade fever and congestion, generalized weakness, lightheadedness. At that time she was given prescription for prednisone 40 mg daily for 5 days. The patient's landlord apparently found the patient today with altered mental status and called EMS. When EMS arrived, his GCS was 10. There is reports that the patient has a history of substance abuse and was recently in rehabilitation. The patient's roommate confirmed to the [employer]quet [employer] that the patient had recently been in rehabilitation due to a history of substance abuse. The roommate did not think he was doing any illicit drugs recently. (Elliott Fragoso) Review of Systems Unable to obtain a ROS due to patient's mental status and being intubated. ( Elliott Fragoso) Past Family Social History Allergies: Coded Allergies: Hydrocodone (Verified Allergy, Unknown, Nausea/Vomiting, 10/04/16) Mother called Dentist to verify Sulfa (Verified Allergy, Unknown, 09/30/16) Toradol (Verified Allergy, Unknown, 09/30/16) Past Medical History Patient is obtunded, intubated and unable to provide any additional past medical history. Per chart review: ADHD History of substance abuse status post rehabilitation Degenerative disc disease Past Surgical History Unknown and unobtainable secondary to patient's clinical condition. Reported Medications Unobtainable secondary to the patient's clinical condition. Per chart review: Prednisone 20 Mg Tab 40 Mg PO DAILY Take 40 mg (2 tablets) daily for 5 days Ibuprofen 600 Mg Tab 600 Mg PO Q6H PRN Meclizine (Meclizine HCl) 25 Mg Chew 25 Mg CHEW DIRECTED PRN Acyclovir 200 Mg Cap 200 Mg PO 5 TIMES A DAY Tylenol-Codeine #3 (Acetaminophen-Codeine) 300-30 mg Tab 1 Tab PO Q4H PRN Active Ordered Medications Current Medications Medications (Trade) Dose Ordered Sig/Beena Route Start Time Stop Time Status Last Admin Terbutaline Sulfate 1 mg 1 mg UNSCH PRN SQ 09/30/16 17:15 Ceftriaxone Sodium 2000 mg/ Sodium Chloride 100 ml @ 200 mls/hr Q12H IV 10/01/16 03:00 10/01/16 14:30 (Vancomycin Consult Pharmacy) 0 ml @ 0 mls/hr UNSCH OTHER 09/30/16 17:30 Chlorhexidine Gluconate 15 ml 15 ml BID@08,20 MT 09/30/16 20:00 10/01/16 08:00 Propofol 100 ml @ 0 mls/hr TITRATE IV 09/30/16 17:45 10/01/16 13:36 Fentanyl Citrate 250 ml @ 0 mls/hr TITRATE IV 09/30/16 17:45 (NS 1000 ml Inj) 1,000 ml @ 125 mls/hr Q8H IV 09/30/16 18:00 10/01/16 13:36 (NS Flush) 2 ml UNSCH PRN IV FLUSH 09/30/16 17:45 (NS Flush) 2 ml BID IV FLUSH 09/30/16 21:00 10/01/16 09:00 (Tylenol) 650 mg Q6H PRN PO 09/30/16 17:45 10/01/16 09:46 (Protonix Inj) 40 mg DAILY IV 10/01/16 09:00 10/01/16 07:34 (Tears Naturale Opth Soln) 1 drop TID EACH EYE 09/30/16 18:00 10/01/16 13:00 (Zofran Inj) 4 mg Q6H PRN IV 09/30/16 17:45 (Colace Liq) 100 mg Q12H G-TUBE 09/30/16 20:00 (Senna Liq) 17.6 mg Q12H PRN G-TUBE 09/30/16 17:45 Miscellaneous Information 1 Q361D XX 09/30/16 17:45 09/30/16 17:45 (Chlorhexidine 2% Cloth) 3 pack Taper DAILY@04 TOP 10/01/16 04:00 09/27/17 03:59 10/01/16 03:57 (Chlorhexidine 2% Cloth) 3 pack UNSCH PRN TOP 09/30/16 17:45 (D50w (Vial) Inj) 50 ml UNSCH PRN IV 09/30/16 18:00 (Glucagon Inj) 1 mg UNSCH PRN OTHER 09/30/16 18:00 Insulin Human Regular 1 1 Q6HR SQ 09/30/16 18:00 Sodium Chloride 500 ml @ 10 mls/hr CONTINUOUS IV 09/30/16 20:00 09/30/16 21:21 Norepinephrine Bitartrate 4 mg/ Sodium Chloride 254 ml @ 0 mls/hr TITRATE IV 10/01/16 04:15 10/01/16 16:59 (Vancomycin Inj/ NS 250 ml Inj) 262.5 ml @ 250 mls/hr Q12H IV 10/01/16 17:00 10/01/16 16:59 Miscellaneous Information SPECIFIC LAB TO BE NEIL... ONCE ONCE .XX 10/02/16 04:45 10/02/16 04:46 Family History Unknown and unobtainable secondary to patient's clinical condition Social History Unobtainable secondary to patient's clinical condition. Per chart review: No reported history of tobacco or alcohol abuse. Prior reported drug abuse status post rehabilitation (Elliott Fragoso) Physical Exam Vital Signs Vital Signs Date Time Temp Pulse Resp B/P Pulse Ox O2 Delivery O2 Flow Rate FiO2 10/01/16 12:00 40 10/01/16 12:00 100.2 103 16 101/49 100 10/01/16 10:30 99 100 10/01/16 09:43 100 40 10/01/16 08:28 100 40 10/01/16 08:00 40 10/01/16 08:00 100.2 118 14 118/60 100 10/01/16 07:00 100 Mechanical Ventilator 40 10/01/16 04:00 100.0 116 15 109/63 98 10/01/16 04:00 40 10/01/16 01:02 100 40 10/01/16 00:00 99.7 106 17 117/49 100 Automatic Cuff 10/01/16 00:00 40 09/30/16 22:02 100 50 09/30/16 20:00 104.7 138 21 104/55 100 09/30/16 20:00 128 09/30/16 20:00 50 09/30/16 18:53 100 50 09/30/16 18:14 134 111/43 09/30/16 18:06 137 14 104/50 100 Ventilator 09/30/16 18:00 99 100 09/30/16 17:45 135 126/40 100 09/30/16 17:30 127 112/53 99 Ventilator 09/30/16 17:06 130 14 115/55 97 09/30/16 16:58 137 83/52 94 Ventilator 09/30/16 16:55 139 92/53 94 Ventilator 09/30/16 16:51 139 84/49 95 09/30/16 16:50 40 09/30/16 16:50 97 100 09/30/16 16:40 132 96/50 98 Ventilator 09/30/16 16:30 151 107/54 99 Physical Exam GENERAL: Well developed, well nourished male who appears his stated age, sedated & intubated, agitated at times as examined. HEENT: Normocephalic, atraumatic. PERRL 3 mm, sluggish. Mucous membranes dry, orally intubated, OGT present. NECK: No evident midline TTP, no nuchal rigidity, no JVD, trachea midline. CHEST: CTAB w/o W/R/R, equal excursion, non-laboured, orally intubated & mechanically ventilated. CARDIOVASCULAR: S1S2 w/regular rate but fast, grade II/ murmur, radial & pedal pulses 2+ bilaterally, cap refill < 2 sec. Monitor is sinus tachycardia w/ o any ectopy noted. ABDOMEN: Abdomen soft, nontender, no palpable masses or organomegaly, positive bowel sounds, OGT clamped at present. GENITOURINARY: Normal male genitalia, Jerez catheter to BSD w/clear orange coloured urine. MUSCULOSKELETAL: BUTCHER, no evident TTP, no evident deformity or clubbing. INTEGUMENTARY: There is a nonblanching macular rash primarily over the dorsal aspect of the bilateral feet up to the ankle, there is scaling of the skin which is peeling off. The tip of the right great toe does have several very small necrotic areas. NEUROLOGICAL: Sedated & intubated, GCS 7T (E1 V1T M5) He is not following any commands but does withdraw to painful stimuli, no eye opening Unable to assess for sensory deficit due to mental status No ankle clonus No Acuña's sign Negative Babinski sign bilaterally Laboratory Laboratory Tests Test 09/30/16 09/30/16 09/30/16 10/01/16 18:00 20:11 20:53 03:08 Nasal Screen MRSA (PCR) MRSA NOT DETECTED Fibrinogen 492 Sodium Level 148 152 Serum Osmolality 320 322 Lactic Acid Level 1.1 0.8 Troponin I 11.60 10.30 Lipase 37 Hepatitis A IgM Antibody NEGATIVE Hepatitis B Surface Antigen NEGATIVE Hepatitis B Core IgM Antibody NEGATIVE Hepatitis C Antibody NEGATIVE HIV (1&2) Antibody NEGATIVE Test 10/01/16 10/01/16 10/01/16 10/01/16 04:12 04:57 09:00 14:38 White Blood Count 15.9 Red Blood Count 2.99 Hemoglobin 8.8 Hematocrit 26.3 Mean Corpuscular Volume 88.0 Mean Corpuscular Hemoglobin 29.3 Mean Corpuscular Hemoglobin 33.3 Concent Red Cell Distribution Width 14.0 Platelet Count 109 Mean Platelet Volume 8.4 Neutrophils (%) (Auto) Lymphocytes (%) (Auto) Monocytes (%) (Auto) Eosinophils (%) (Auto) Basophils (%) (Auto) Neutrophils # (Auto) Lymphocytes # (Auto) Monocytes # (Auto) Eosinophils # (Auto) Basophils # (Auto) CBC Comment AUTO DIFF Differential Total Cells 100 Counted Neutrophils % (Manual) 75 Band Neutrophils % 10 Lymphocytes % 4 Monocytes % 9 Neutrophils # (Manual) 13.8 Metamyelocytes 1 Myelocytes 1 Differential Comment FINAL DIFF MANUAL Toxic Vacuolation PRESENT Dohle Bodies PRESENT Platelet Estimate LOW Platelet Morphology Comment NORMAL Red Cell Morphology Comment NORMAL Prothrombin Time 13.9 Prothromb Time International 1.2 Ratio Activated Partial 30.0 Thromboplast Time Sodium Level 151 152 154 Potassium Level 3.7 Chloride Level 119 Carbon Dioxide Level 24.4 Anion Gap 8 Blood Urea Nitrogen 32 Creatinine 0.95 Estimat Glomerular Filtration 96 Rate Random Glucose 133 Calcium Level 8.2 Phosphorus Level 3.0 Magnesium Level 2.6 Total Bilirubin 0.6 Aspartate Amino Transf 80 (AST/SGOT) Alanine Aminotransferase 59 (ALT/SGPT) Alkaline Phosphatase 137 Ammonia LESS THAN 10 Total Protein 6.2 Albumin 1.9 Random Cortisol 32.4 Blood Gas Puncture Site ART LINE Blood Gas Patient Temperature 98.6 Blood Gas HCO3 21 Blood Gas Base Excess -3.3 Blood Gas Oxygen Saturation 97 Arterial Blood pH 7.37 Arterial Blood Partial 37 Pressure CO2 Arterial Blood Partial 163 Pressure O2 Arterial Blood Oxygen Content 16.3 Arterial Blood 0.7 Carboxyhemoglobin Arterial Blood Methemoglobin 1.1 Blood Gas Hemoglobin 11.7 Oxygen Delivery Device VENTILATOR Blood Gas Ventilator Setting AC14/500/PEEP5 Blood Gas Inspired Oxygen 40 Serum Osmolality 327 328 Lactic Acid Level 0.9 0.8 Total Creatine Kinase 1064 Creatine Kinase MB 12.7 Creatine Kinase MB % 1.2 Free Thyroxine 1.07 Free Triiodothyronine (T3) LESS THAN 0.50 pg/dL Date/Time Procedure Status Source Growth 09/30/16 22:50 Gram Stain - Final Resulted Sputum Endotracheal 09/30/16 22:50 Sputum Culture - Preliminary Resulted Staphylococcus Aureus 09/30/16 20:11 Aerobic Blood Culture - Preliminary Resulted Blood Line NO GROWTH IN 1 DAY 09/30/16 20:11 Anaerobic Blood Culture - Preliminary Resulted Blood Line NO GROWTH IN 1 DAY (Elliott Fragoso) Result Diagram: 10/01/16 0412 10/01/16 1438 Imaging Recent Impressions Head CT 10/01/16 0000 Signed Impressions: Service Date/Time: Saturday, October 01, 2016 11:00 - CONCLUSION: 1. Multifocal areas of low-density in the cerebrum and cerebellum, as above. These areas are now lower in attenuation and more well-defined typical of evolving edema. 2. There is approximately 4 mm of qoaoe-au-sree midline shift, increased from 2 mm on yesterday's examination. Michael Escalera MD Chest X-Ray 10/01/16 0000 Signed Impressions: Service Date/Time: Saturday, October 01, 2016 05:10 - CONCLUSION: Slight worsening bilateral perihilar infiltrates. K. Juliano Basilio MD Brain MRI 09/30/16 1659 Signed Impressions: Service Date/Time: Friday, September 30, 2016 17:42 - CONCLUSION: Numerous bilateral cerebral and cerebellar acute or subacute infarcts that are most likely embolic. Please see above. No mass or evidence of abscess. 4 mm of leftward midline shift. Small subarachnoid blood. Michael Freitas MD Head CT 09/30/16 1453 Signed Impressions: Service Date/Time: Friday, September 30, 2016 16:31 - CONCLUSION: Noncontrast CT findings of concern for multiple intra-axial masses. There is small acute subarachnoid blood present and about 3 mm of leftward midline shift. MRI of the brain with and without contrast recommended. Michael Freitas MD Chest X-Ray 09/30/16 1453 Signed Impressions: Service Date/Time: Friday, September 30, 2016 15:23 - CONCLUSION: No acute cardiopulmonary disease demonstrated. Appropriate endotracheal tube tip position. Nasogastric tube courses into the stomach, tip not included on the study. Michael Freitas MD Renal Ultrasound 09/30/16 0000 Signed Impressions: Service Date/Time: Friday, September 30, 2016 18:45 - CONCLUSION: Ultrasound appearance of the kidneys within normal limits. Jerez catheter in the urinary bladder. Nonspecific splenomegaly incidentally noted. Michael Freitas MD Head Magnetic Resonance Angiography 09/30/16 0000 Signed Impressions: Service Date/Time: Friday, September 30, 2016 17:42 - CONCLUSION: No occlusion, aneurysm or other acute intracranial vascular abnormality demonstrated. Michael Freitas MD Chest X-Ray 09/30/16 0000 Signed Impressions: Service Date/Time: Friday, September 30, 2016 21:06 - CONCLUSION: Endotracheal tube and nasogastric tube unchanged. Left subclavian central venous catheter has been placed, tip in superior vena cava. No pneumothorax or other acute complication. Michael Freitas MD (Elliott Fragoso) Assessment and Plan Assessment and Plan Impression: Multiple acute septic CVAs Cerebral edema Small subarachnoid hemorrhage Midline shift, 3 mm Metabolic encephalopathy Plan: Consider repeat CT brain in AM Stat CT brain for any further decline in neurological status Frequent neuro checks Concur with 3% saline and keeping sodium elevated Monitor sodium levels Critical care management by [employer] Antibiotics per Infectious Disease (Elliott Fragoso) Attending Statement I have personally seen and examined the patient on 10/01/16. Pertinent documentation and study results have been reviewed by the undersigned. I have personally developed the treatment plan and performed medical decision making. Agree with findings, exam, and treatment plan as noted above. Patient will need initial routine follow-up CT scan and intermittent MRI imaging. At risk for developing progressive edema and possible focal abscess formation. ( Pino Michelle MD) Elliott Fragoso October 01, 2016 16:46 Pino Michelle MD Oct 18, 2016 17:47
[2016-10-01] MEDS: VANCOMYCIN INJ 1,250 MG in SODIUM CHLOR 0.9% 250 ML INJ 250 ML IV SCH (16:59)
[2016-10-01] MEDS: NOREPINEPHRINE INJ 4 MG in SODIUM CHLOR 0.9% 250 ML INJ 250 ML IV SCH (16:59)
--- NOTE | 2016-10-01 17:17 | EC ---
Study Study Date:10/01/2016 STUDY CONCLUSIONS SUMMARY - Left ventricle: The cavity size was mildly dilated. Wall thickness was normal. Systolic function was at the lower limits of normal. The estimated ejection fraction was 50%. Wall motion was normal; there were no regional wall motion abnormalities. - Aortic valve: There was an apparent, medium-sized vegetation. Moderate regurgitation directed eccentrically in the LVOT. Valve area: 2.1cm^2(VTI). Valve area: 2.27cm^2 (Vmax). - Mitral valve: Mild regurgitation. - Tricuspid valve: Mild regurgitation. - Pulmonary arteries: PA peak pressure: 37mm Hg (S). If LV function is below 40, please consider prescribing an ACEI or ARB or document rationale for non-use. PROCEDURE DATA STUDY STATUS: Elective. Procedure: Transthoracic echocardiography. Image quality was good. Scanning was performed from the parasternal, apical, and subcostal acoustic windows. Study completion: The patient tolerated the procedure well. Transthoracic echocardiography. M-mode, complete 2D, complete spectral Doppler, and color Doppler. Height: Height: 68in. Weight: Weight: 153.7lb. Body mass index: BMI: 23.4kg/m^2. Body surface area: BSA: 1.83m^2. Patient status: Inpatient. CARDIAC ANATOMY LEFT VENTRICLE: The cavity size was mildly dilated. Wall thickness was normal. Systolic function was at the lower limits of normal. The estimated ejection fraction was 50%. Wall motion was normal; there were no regional wall motion abnormalities. AORTIC VALVE: Trileaflet; normal thickness leaflets. There was an apparent, medium-sized vegetation. Doppler: Transvalvular velocity was within the normal range. There was no stenosis. Moderate regurgitation directed eccentrically in the LVOT. Valve area: 2.1cm^2(VTI). Indexed valve area: 1.15cm^2/m^2 (VTI). Valve area: 2.27cm^2 (Vmax). Indexed valve area: 1.24cm^2/m^2 (Vmax). Mean gradient: 6mm Hg (S). Peak gradient: 10mm Hg (S). AORTA: Aortic root: The aortic root was normal in size. MITRAL VALVE: Structurally normal valve. Doppler: Transvalvular velocity was within the normal range. There was no evidence for stenosis. Mild regurgitation. Peak gradient: 7mm Hg (D). LEFT ATRIUM: The atrium was normal in size. RIGHT VENTRICLE: The cavity size was normal. Wall thickness was normal. PULMONIC VALVE: Doppler: Transvalvular velocity was within the normal range. There was no evidence for stenosis. No regurgitation. TRICUSPID VALVE: Structurally normal valve. Doppler: Transvalvular velocity was within the normal range. Mild regurgitation. PULMONARY ARTERY: The main pulmonary artery was normal-sized. Systolic pressure was within the normal range. RIGHT ATRIUM: The atrium was normal in size. PERICARDIUM: There was no pericardial effusion. SYSTEMIC VEINS: Inferior vena cava: The vessel was normal in size. Patient weight: 153.7lb _Ejection fraction:_ 65-75% _Fractional shortening:_ 32% up to 5Kg 5-11.5Kg 11.6-22.9Kg 23-45Kg 45-57Kg Aortic Root 7-13 <17 13-22 17-27 17-27 LA diam 6-13 <23 24-38 33-47 37-40 RVID 10-17 7-15 7-15 7-18 8-17 LVIDd 12-22 <32 24-38 33-47 37-40 LVPW 2-4 3-6 5-7 6-8 7-8 IVS 2-4 3-6 5-7 6-8 7-8 BASIC MEASUREMENTS ADULT NORMAL Left ventricle LV internal dimension, ED, chordal 51.5 mm 43-52 level, PLAX LV internal dimension, ES, chordal *42.1 mm 23-38 level, PLAX Fractional shortening, chordal level, *18 % >29 PLAX LV posterior wall thickness, ED 6.85 mm IVS/LVPW ratio, ED 1.06 <1.3 Volume, ED, MOD, 1-plane 167 ml Volume, ES, MOD, 1-plane 83 ml Ejection fraction, MOD, 1-plane 50 % Stroke volume, MOD, 1-plane 84 ml Volume index, ED, MOD, 1-plane 91 ml/m^2 Volume index, ES, MOD, 1-plane 45 ml/m^2 Stroke index, MOD, 1-plane 45.9 ml/m^2 Volume, ED, MOD, 2-plane 206 ml Volume, ES, MOD, 2-plane 113 ml Ejection fraction, MOD, 2-plane 45 % Stroke volume, MOD, 2-plane 93 ml Volume index, ED, MOD, 2-plane 113 ml/m^2 Volume index, ES, MOD, 2-plane 62 ml/m^2 Stroke index, MOD, 2-plane 50.8 ml/m^2 Ventricular septum Septal thickness, ED 7.23 mm Aortic valve Leaflet separation 23 mm 15-26 Aorta Root diameter, ED 29 mm Left atrium Anterior-posterior dimension 41 mm Anterior-posterior dimension index *2.24 cm/m^2 <2.2 BASIC MEASUREMENTS ADULT NORMAL Aortic valve Leaflet separation 23 mm 15-26 DOPPLER MEASUREMENTS ADULT NORMAL Main pulmonary artery Pressure, S *37 mm Hg =30 Aortic valve Peak velocity, S 159 cm/s Mean velocity, S 112 cm/s VTI, S 26.7 cm Mean gradient, S 6 mm Hg Peak gradient, S 10 mm Hg Valve area, VTI 2.1 cm^2 Valve area index, VTI 1.15 cm^2/m^2 Valve area, Vmax 2.27 cm^2 Valve area index, Vmax 1.24 cm^2/m^2 Regurgitant velocity, ED 518 cm/s Regurgitant deceleration 9470 cm/s^2 Regurgitant pressure half-time 160 ms Regurgitant gradient, ED 107 mm Hg Mitral valve Peak E-wave velocity 131 cm/s Peak A-wave velocity 60.9 cm/s Deceleration time *132 ms 150-230 Peak gradient, D 7 mm Hg Peak E/A ratio 2.2 Tricuspid valve Regurgitant peak velocity 276 cm/s Peak RV-RA gradient, S 30 mm Hg Maximal regurgitant velocity 276 cm/s Systemic veins Estimated CVP 10 mm Hg Right ventricle RV pressure, S *40 mm Hg <30 Pulmonic valve Peak velocity, S 92.7 cm/s LEGEND: Mean values are shown as u=mean value. Asterisk (*) walters values outside specified normal range. Prepared and signed by Loyd Paul [id number]
--- NOTE | 2016-10-01 19:22 | HHI.CCPN ---
Subjective Remarks/Hospital Course Hospital Course: This is a 26yM who presents to the ED for altered mental status. On arrival, the patient was obtunded and emergently intubated. His roommate is with him and cannot provide much medical history. The remainder of the history is per EMS and ER documentation and my discussion with the ER physician. Per EMS and ED reports, patient was seen approximately 10 days prior to admission by an unknown physician in the clinic and given antibiotic for fever. After taking the antibiotic, the patient had a new red rash on his hands and healing on his feet. He he was seen in the emergency department 2 days prior to admission for low-grade fever and congestion, generalized weakness, lightheadedness. At that time she was given prescription for prednisone 40 mg daily for 5 days. The patient's landlord apparently found the patient today with altered mental status and called EMS. When EMS arrived, his GCS was 10. There is reports that the patient has a history of substance abuse and was recently in rehabilitation. I did talk to the roommate who confirms that the patient had recently gotten out of rehabilitation and was living with him. The remainder does say that he does not think the patient has been taking any illicit substances recently. In the emergency department, the patient was hypotensive, tachycardic. His head CT is significant for significant areas of infarction in the right frontal , temporal, and cerebellar regions as well as a small area of subarachnoid hemorrhage in the superior right parietal region. Patient has early 3 mm of midline shift as well as effacement on the right. Patient's laboratory data is significant for white blood cell count of 19,000, hemoglobin of 9.9, lactate of 3.7, creatinine 1.69, CK 372, troponin of 11.9. His urine drug screen is positive for opiates and amphetamines. I performed a bedside critical care ultrasound which demonstrated hyperdynamic left ventricular function and what appears to be aortic valve vegetations and I measured to be proximally 0.9 x 8.8 cm. This is associated with what appears to be severe aortic regurgitation. There is no pericardial effusion. Right ventricular function is preserved. A formal echo has been ordered to confirm these findings. Critical care medicine has been consulted to evaluate and manage his shock, altered mental status, multiple areas of infarction, and subarachnoid hemorrhage. Subjective: 10/01: seen and examined around 06:30am. patient on norepinephrine at 6 mcg/min , persistently in shock. patient localizes to pain x 4 extremities. repeat interval head CT with 4mm midline shift. echo with significant aortic valve vegetations and moderate aortic insufficiency. Objective Vital Signs Date Time Temp Pulse Resp B/P Pulse Ox O2 Delivery O2 Flow Rate FiO2 10/01/16 16:52 100 40 10/01/16 16:00 100.2 109 20 103/64 10/01/16 07:00 Mechanical Ventilator Intake and Output 09/30/16 09/30/16 09/30/16 07:59 15:59 23:59 Intake Total 799 ml Output Total 3250 ml Balance -2451 ml Result Diagram: 10/01/16 0412 10/01/16 1438 Other Results Laboratory Tests Test 10/01/16 04:57 Blood Gas Puncture Site ART LINE Blood Gas Patient Temperature 98.6 Blood Gas HCO3 21 mmol/L (22-26) Blood Gas Base Excess -3.3 mmol/L (-2-2) Blood Gas Oxygen Saturation 97 % (90-100) Arterial Blood pH 7.37 (7.380-7.420) Arterial Blood Partial 37 mmHg (38-42) Pressure CO2 Arterial Blood Partial 163 mmHg Pressure O2 (61-120) Arterial Blood Oxygen Content 16.3 Vol % (12.0-20.0) Arterial Blood 0.7 % (0-4) Carboxyhemoglobin Arterial Blood Methemoglobin 1.1 % (0-2) Blood Gas Hemoglobin 11.7 G/DL (12.0-16.0) Oxygen Delivery Device VENTILATOR Blood Gas Ventilator Setting AC14/500/PEEP5 Blood Gas Inspired Oxygen 40 % Imaging Last Impressions Head CT 09/30/16 9243 Signed Impressions: Service Date/Time: Friday, September 30, 2016 16:31 - CONCLUSION: Noncontrast CT findings of concern for multiple intra-axial masses. There is small acute subarachnoid blood present and about 3 mm of leftward midline shift. MRI of the brain with and without contrast recommended. Michael Freitas MD Chest X-Ray 09/30/16 3291 Signed Impressions: Service Date/Time: Friday, September 30, 2016 15:23 - CONCLUSION: No acute cardiopulmonary disease demonstrated. Appropriate endotracheal tube tip position. Nasogastric tube courses into the stomach, tip not included on the study. Michael Freitas MD Objective Remarks GENERAL: Young male, lying in bed, intubated, sedated, critically ill HEENT: Pupils 3 mm, equal, sluggishly reactive. Mucous membranes moist. NECK: No JVD. Trachea midline. Orotracheally intubated CHEST: Equal chest rise. Clear to auscultation. CARDIOVASCULAR: Tachycardic rate, regular rhythm. II/ systolic and diastolic murmur. ABDOMEN: Soft, nontender, nondistended. No guarding. MUSCULOSKELETAL: There is a nonblanching macular rash primarily over the dorsal aspect of the bilateral feet up to the ankle. No peripheral edema. Distal pulses 2+. NEUROLOGICAL: RASS -3. Localizes to pain x 4. does not follow commands. 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 He is very critically ill this time. We will continue with supportive care. I have had a long conversation today with his entire family where I expressed his severe critical illness and his prognosis, which is poor. They continue to want aggressive care and he will remain a Full Code. His cerebral edema is worse, and likely will continue to worsen over the coming days. We are unable to augment his cerebral perfusion pressure due to ongoing septic shock on vasopressors. His prognosis is guarded at best will likely have a poor outcome. Plan by systems: Neurologic: Multiple acute septic CVAs Cerebral edema Small subarachnoid hemorrhage Midline shift, 4 mm Metabolic encephalopathy Neurosurgery consulted, Dr. Michelle q1h neuro checks --prop/fent for goal RASS -2. --avoid long-acting sedating meds --hyperosmolar therapy -- f/u EEG Respiratory: Acute hypoxic and hypercarbic respiratory failure Vent bundle Head of bed 30 Avoid hypercarbia and hypoxia ABG in the AM. Does not meet SBT criteria given his mental status and acute strokes Wean FiO2 for goal SPO2 greater than 92% Cardiovascular: Aortic valve endocarditis Cardiogenic shock Moderate aortic insufficiency Septic shock continue 3% sodium chloride Arterial line, central line for invasive central pressure monitoring Abx as described below 2d echo 10/01: aortic valve vegetations, moderate AI. Norepinephrine for goal map greater than 65 Renal: Acute kidney injury- resolving. Jerez for accurate I's and O's Likely secondary to mixed septic and cardiogenic shock -- Strict I/Os FEN/GI: Hypermagnesemia Lactic acidosis- resolving. Severe metabolic acidosis- resolving. Acute protein calorie malnutritionmild Elevated LFTs Nothing by mouth OG tube to suction IV fluid resuscitation as above Serial sodiums, osmolalities Daily BMP, LFTs Heme/ID: Anemia, likely secondary to hemolysis from valvulopathy Infective endocarditis Septic shock 10/01 blood cultures: GPCs --10/01 sputum culture: Staph aureus Continue vancomycin, Rocephin, Flagyl Infectious disease following: Dontfraid Endocrine: Hyperglycemia of critical illness -- SSI, every 6 hours, medium scale TSH 0.16, free T4 1.07, T3 < 0.5: likely sick euthyroid. Prophylaxis: GI Prophylaxis Protonix IV DVT Prophylaxis -- SCDs Holding pharmacologic DVT prophylaxis in the setting of cerebral hemorrhage Lines: 09/30 radial arterial line --09/30 left SC TLC --Solitario Dispo: Remain in the ICU. He remains critically ill. This patient remains critically ill with one or more organ systems which are or may become a threat to life. I have spent in excess of 58 minutes discontinuously in the care and management of this patient. This time is exclusive of procedures, and includes, but is not limited to, evaluation of the patient, review of the medical record, discussions with family, consultants, nursing staff, or respiratory therapy, and documentation in the medical record. Yahir Dominguez MD October 01, 2016 19:22
--- NOTE | 2016-10-01 22:07 | MG ---
cc: WILY CARLSON M.D. Lab No: Date: 10/01/2016 Age: Sex: M Race: ELECTROENCEPHALOGRAM NUMBER [id number] Diprivan turned off. MEDICATIONS 1. Fentanyl. 2. Ceftriaxone. 3. Vancomycin. 4. Diprivan. INDICATION A 26-year-old substance abuse. Attention deficit hyperactivity disorder. DESCRIPTION The recording shows diffuse alpha and beta rhythms, what appears to be some sleep spindles are seen symmetric and synchronous. Some diffuse theta slowing is at times seen. Hyperventilation is not performed. Photic stimulation is performed without significant posterior driving. IMPRESSION A generally unremarkable recording. Some mild diffuse theta slowing is seen. It looks like some possible sleep activity, a spindle coma could be considered but clinical correlation is needed. No focal abnormalities were noted. No seizure activity is seen. MD MARTINE Livingston/LITO /7:35 PM /10:00 PM
[2016-10-02] VITALS (21 sets, daily range): BP systolic 98–125; BP diastolic 49–70; PULSE 98–122; RESP 16–23; TEMP 99–101.6; O2SAT 98–100
[2016-10-02] MEDS: ACETAMINOPHEN 325 MG TAB PO PRN ×3 (00:36→18:12)
[2016-10-02] MEDS: fentaNYL DRIP 250 ML IV SCH (00:55)
[2016-10-02] MEDS: CHLORHEXIDINE GLUCONATE 2 % 1 PACK (2 CLOTHS) TOP SCH (02:00)
[2016-10-02] MEDS: SODIUM CHLOR 0.9% 1000 ML INJ 1,000 ML IV SCH (02:51)
[2016-10-02] MEDS: PROPOFOL 1000 MG/100 ML INJ 100 ML IV SCH ×2 (03:15→12:05)
[2016-10-02] MEDS: cefTRIAXone INJ 2,000 MG in SODIUM CHLORIDE 0.9% INJ 100 ML IV SCH ×2 (03:15→15:15)
[2016-10-02] MEDS: NOREPINEPHRINE INJ 4 MG in SODIUM CHLOR 0.9% 250 ML INJ 250 ML IV SCH ×2 (03:15→20:18)
[2016-10-02] MEDS: RESP: ALBUTEROL 2.5 MG/IPRATROPIUM 0.5 MG NEB (SCH) INH ×4 (03:20→20:46)
[2016-10-02 03:40] LABS: HEMATOCRIT 25.2 % (39.0-51.0); MEAN CELL VOLUME 88.3 FL (80.0-100.0); MEAN CORPUSCULAR HEMOGLOBIN 29.6 PG (27.0-34.0); MEAN CORPUSCULAR HGB CONC 33.5 % (32.0-36.0); PLATELET COUNT 115 TH/MM3 (150-450); RED BLOOD COUNT 2.85 MIL/MM3 (4.50-5.90); RED CELL DISTRIBUTION WIDTH 14.7 % (11.6-17.2); REVIEW FLAG FINAL
[2016-10-02 04:03] LABS: BICARBONATE 25.6 MEQ/L (21.0-32.0); VANCOMYCIN TROUGH 8.8 MCG/ML (5.0-10.0)
[2016-10-02] MEDS ORDERED: PHARMACY ORDERED LAB ONE ×2 (04:45→16:45)
[2016-10-02] MEDS: INSULIN NovoLIN REGULAR SUPPLEMENTAL SCALE SQ SCH ×4 (04:53→17:16)
[2016-10-02] MEDS: VANCOMYCIN INJ 1,250 MG in SODIUM CHLOR 0.9% 250 ML INJ 250 ML IV SCH (05:10)
[2016-10-02 06:06] LABS: BLOOD GAS CARBOXYHEMOGLOBIN 0.8 % (0-4); BLOOD GAS HCO3 23 mmol/L (22-26); BLOOD GAS O2 HGB SATURATION 97 % (90-100); BLOOD GAS OXYGEN CONTENT 11.9 Vol % (12.0-20.0); BLOOD GAS PCO2 40 mmHg (38-42); BLOOD GAS PO2 176 mmHg (61-120); BLOOD GAS TOTAL HGB 8.4 G/DL (12.0-16.0); TEMP CORR TO 98.6
[2016-10-02 06:07] LABS: CRITICAL VALUE NO; DRAW SITE ART LINE; FIO2 40 %; OXYGEN DEVICE VENTILATOR; STAT NO; VENT SETTINGS AC/500/14/5PEEP
--- NOTE | 2016-10-02 07:38 | HHI.CCPN ---
Subjective Remarks/Hospital Course Hospital Course: This is a 26yM who presents to the ED for altered mental status. On arrival, the patient was obtunded and emergently intubated. His roommate is with him and cannot provide much medical history. The remainder of the history is per EMS and ER documentation and my discussion with the ER physician. Per EMS and ED reports, patient was seen approximately 10 days prior to admission by an unknown physician in the clinic and given antibiotic for fever. After taking the antibiotic, the patient had a new red rash on his hands and healing on his feet. He he was seen in the emergency department 2 days prior to admission for low-grade fever and congestion, generalized weakness, lightheadedness. At that time she was given prescription for prednisone 40 mg daily for 5 days. The patient's landlord apparently found the patient today with altered mental status and called EMS. When EMS arrived, his GCS was 10. There is reports that the patient has a history of substance abuse and was recently in rehabilitation. I did talk to the roommate who confirms that the patient had recently gotten out of rehabilitation and was living with him. The remainder does say that he does not think the patient has been taking any illicit substances recently. In the emergency department, the patient was hypotensive, tachycardic. His head CT is significant for significant areas of infarction in the right frontal , temporal, and cerebellar regions as well as a small area of subarachnoid hemorrhage in the superior right parietal region. Patient has early 3 mm of midline shift as well as effacement on the right. Patient's laboratory data is significant for white blood cell count of 19,000, hemoglobin of 9.9, lactate of 3.7, creatinine 1.69, CK 372, troponin of 11.9. His urine drug screen is positive for opiates and amphetamines. I performed a bedside critical care ultrasound which demonstrated hyperdynamic left ventricular function and what appears to be aortic valve vegetations and I measured to be proximally 0.9 x 8.8 cm. This is associated with what appears to be severe aortic regurgitation. There is no pericardial effusion. Right ventricular function is preserved. A formal echo has been ordered to confirm these findings. Critical care medicine has been consulted to evaluate and manage his shock, altered mental status, multiple areas of infarction, and subarachnoid hemorrhage. Subjective: 10/01: seen and examined around 06:30am. patient on norepinephrine at 6 mcg/min , persistently in shock. patient localizes to pain x 4 extremities. repeat interval head CT with 4mm midline shift. echo with significant aortic valve vegetations and moderate aortic insufficiency. 10/02: now following commands intermittently on the RUE, still localizing in LUE , BLE. off vasopressors this morning. cultures growing staph, sensitivities to follow. Objective Vital Signs Date Time Temp Pulse Resp B/P Pulse Ox O2 Delivery O2 Flow Rate FiO2 10/02/16 06:00 103 10/02/16 04:00 40 10/02/16 04:00 99.0 19 125/70 99 10/01/16 07:00 Mechanical Ventilator Intake and Output 10/01/16 10/01/16 10/02/16 08:00 16:00 00:00 Intake Total 1399 ml 1572 ml 2028 ml Output Total 1525 ml 1600 ml 1105 ml Balance -126 ml -28 ml 923 ml Result Diagram: 10/02/16 0315 10/02/16 0315 Other Results Laboratory Tests Test 10/02/16 05:55 Blood Gas Puncture Site ART LINE Blood Gas Patient Temperature 98.6 Blood Gas HCO3 23 mmol/L (22-26) Blood Gas Base Excess -1.0 mmol/L (-2-2) Blood Gas Oxygen Saturation 97 % (90-100) Arterial Blood pH 7.38 (7.380-7.420) Arterial Blood Partial 40 mmHg (38-42) Pressure CO2 Arterial Blood Partial 176 mmHg Pressure O2 (61-120) Arterial Blood Oxygen Content 11.9 Vol % (12.0-20.0) Arterial Blood 0.8 % (0-4) Carboxyhemoglobin Arterial Blood Methemoglobin 1.0 % (0-2) Blood Gas Hemoglobin 8.4 G/DL (12.0-16.0) Oxygen Delivery Device VENTILATOR Blood Gas Ventilator Setting AC/500/14/5PEEP Blood Gas Inspired Oxygen 40 % Imaging Last Impressions Head CT 09/30/16 5748 Signed Impressions: Service Date/Time: Friday, September 30, 2016 16:31 - CONCLUSION: Noncontrast CT findings of concern for multiple intra-axial masses. There is small acute subarachnoid blood present and about 3 mm of leftward midline shift. MRI of the brain with and without contrast recommended. Michael Freitas MD Chest X-Ray 09/30/16 0616 Signed Impressions: Service Date/Time: Friday, September 30, 2016 15:23 - CONCLUSION: No acute cardiopulmonary disease demonstrated. Appropriate endotracheal tube tip position. Nasogastric tube courses into the stomach, tip not included on the study. Michael Freitas MD Objective Remarks GENERAL: Young male, lying in bed, intubated, sedated, critically ill HEENT: Pupils 3 mm, equal, sluggishly reactive. Mucous membranes moist. NECK: No JVD. Trachea midline. Orotracheally intubated CHEST: Equal chest rise. Clear to auscultation. CARDIOVASCULAR: Tachycardic rate, regular rhythm. II/ systolic and diastolic murmur. ABDOMEN: Soft, nontender, nondistended. No guarding. MUSCULOSKELETAL: There is a nonblanching macular rash primarily over the dorsal aspect of the bilateral feet up to the ankle. No peripheral edema. Distal pulses 2+. NEUROLOGICAL: RASS -3. follows commands in bilateral LEs, nurse reports fc in RUE, but only localizing for me. Localizes to pain x 4. 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 Still critically ill and with ongoing cerebral edema. We will continue with supportive care. We are unable to augment his cerebral perfusion pressure due to ongoing shock. Plan by systems: Neurologic: Multiple acute septic CVAs Cerebral edema Small subarachnoid hemorrhage Midline shift, 4 mm Metabolic encephalopathy Agitated Delirium Neurosurgery consulted, Dr. Michelle q1h neuro checks --prop/fent for goal RASS -2. --avoid long-acting sedating meds --hyperosmolar therapy --EEG 10/01- negative for seizures --start seroquel 50mg po q8h. Respiratory: Acute hypoxic and hypercarbic respiratory failure Vent bundle Head of bed 30 Avoid hypercarbia and hypoxia ABG in the AM. Does not meet SBT criteria given his mental status and acute strokes Wean FiO2 for goal SPO2 greater than 92% Cardiovascular: Aortic valve endocarditis Cardiogenic shock- resolving. Moderate aortic insufficiency Septic shock- resolving. continue 3% sodium chloride, currently on hold, goal Na 145-150. Arterial line, central line for invasive central pressure monitoring --trend CVP. Abx as described below 2d echo 10/01: aortic valve vegetations, moderate AI. Norepinephrine for goal map greater than 65 Renal: Acute kidney injury- resolving. Jerez for accurate I's and O's Likely secondary to mixed septic and cardiogenic shock -- Strict I/Os FEN/GI: Hypermagnesemia Lactic acidosis- resolving. Severe metabolic acidosis- resolving. Acute protein calorie malnutritionmild Elevated LFTs start TF, jevity 1.5, nutrition consult for goals. OG tube to suction --d/c ivf. Serial sodiums, osmolalities Daily BMP, LFTs Heme/ID: Anemia, likely secondary to hemolysis from valvulopathy Infective endocarditis Septic shock- resolving. 10/01 blood cultures: GPCs --10/01 sputum culture: Staph aureus Continue vancomycin, Rocephin --d/c Flagyl. Infectious disease following: Dontfraid Endocrine: Hyperglycemia of critical illness -- SSI, every 6 hours, medium scale TSH 0.16, free T4 1.07, T3 < 0.5: likely sick euthyroid. Prophylaxis: GI Prophylaxis Protonix IV DVT Prophylaxis -- SCDs Holding pharmacologic DVT prophylaxis in the setting of cerebral hemorrhage Lines: 09/30 radial arterial line --09/30 left SC TLC --Jerez Dispo: Remain in the ICU. He remains critically ill. This patient remains critically ill with one or more organ systems which are or may become a threat to life. I have spent in excess of 32 minutes discontinuously in the care and management of this patient. This time is exclusive of procedures, and includes, but is not limited to, evaluation of the patient, review of the medical record, discussions with family, consultants, nursing staff, or respiratory therapy, and documentation in the medical record. Yahir Dominguez MD October 02, 2016 07:38
[2016-10-02] MEDS: DOCUSATE SODIUM 100 MG/10 ML UDC G-TUBE SCH ×2 (08:23→20:21)
[2016-10-02] MEDS: QUEtiapine FUMARATE 25 MG TAB PO SCH ×3 (08:24→21:55)
[2016-10-02] MEDS: CHLORHEXIDINE 0.12% (ORAL KIT) 15 ML CUP MT SCH ×2 (08:24→20:21)
[2016-10-02] MEDS: ARTIFICIAL TEARS OPTH SOLN 15 ML BTL EACH EYE SCH ×3 (08:24→17:16)
[2016-10-02] MEDS: PANTOPRAZOLE SODIUM 40 MG VIAL IV SCH (08:25)
[2016-10-02] MEDS: SODIUM CHLORIDE 0.9% FLUSH 10 ML FLUSH IV FLUSH SCH ×2 (08:25→20:21)
--- NOTE | 2016-10-02 10:44 | RADRPT ---
EXAM DATE/TIME: 10/02/2016 10:19 [place] COMPARISON: CT BRAIN W/O CONTRAST, October 01, 2016, 11:00. INDICATIONS : Evaluate for new embolic stroke. RADIATION DOSE: 56.35 CTDIvol (mGy) MEDICAL HISTORY : Cardiovascular disease. SURGICAL HISTORY : None. ENCOUNTER: Subsequent ACUITY: 4 - 6 days PAIN SCALE: Non-responsive LOCATION: cranial TECHNIQUE: Multiple contiguous axial images were obtained of the head. Using automated exposure control and adj ustment of the mA and/or kV according to patient size, radiation dose was kept as low as reasonably a chievable to obtain optimal diagnostic quality images. FINDINGS: There are multifocal areas of low density is stable in distribution from the prior study. These inclu de the right and left parietal lobe in the high convexity, left parietal mid convexity, right occipit al lobe, right temporal lobe, and right cerebellum. There is also a well-defined ovoid area of low de nsity in the right basal ganglia. Approximately 3 mm of [id number] midline shift is present. Ventr icles are normal in size. No acute blood products are visualized. No mass is seen. There is a stable mucus retention cyst in the sphenoid sinus. CONCLUSION: 1. Stable multifocal areas of low density bilaterally, as above. No acute blood products are identifi ed. Overall, no significant change has occurred since yesterday's exam. 2. Persistent but minimal right to left midline shift currently measuring 3 mm. Michael Escalera MD on October 02, 2016 at 10:39 Board Certified Radiologist. This report was verified electronically.
--- NOTE | 2016-10-02 11:45 | HHI.IDPN ---
Note Infectious Disease Note Patient on the vent. Patient is on 2 mcg of Levophed. Reported to move LLE to stimulation. No other response. Afebrile. Tachycardic. Lightly sedated. Blood cultures have gram positive cocci in 5 of 6 bottles. Sputum has staph aureus. Patient was brought to the emergency department with altered mental status. PAST MEDICAL HISTORY 1. Substance abuse. The patient was in rehabilitation 1 year ago. 2. ADHD. 3. Degenerative disk disease. ALLERGIES Reportedly the patient is allergic to SULFA, PENICILLIN, TORADOL, CODEINE. ANTIBIOTICS: 1. Ceftriaxone intravenous. 2. Vancomycin intravenous. OBJECTIVE: Vital Signs Date Time Temp Pulse Resp B/P Pulse Ox O2 Delivery O2 Flow Rate FiO2 10/02/16 11:07 99 30 10/02/16 11:02 111 10/02/16 10:20 100 100 10/02/16 10:00 110 10/02/16 09:00 116 10/02/16 08:00 99.7 112 23 98/50 100 10/02/16 08:00 112 10/02/16 08:00 30 10/02/16 07:38 100 30 10/02/16 06:00 103 10/02/16 04:00 112 10/02/16 04:00 40 10/02/16 04:00 99.0 112 19 125/70 99 10/02/16 04:00 99 40 10/02/16 02:00 98 10/02/16 01:39 20 10/02/16 00:55 99 40 10/02/16 00:00 100.0 105 16 111/66 100 10/02/16 00:00 105 10/02/16 00:00 40 10/01/16 22:00 105 10/01/16 20:00 40 10/01/16 20:00 111 10/01/16 20:00 100.0 108 16 122/64 100 10/01/16 19:51 100 50 10/01/16 16:52 100 40 10/01/16 16:00 40 10/01/16 16:00 100.2 109 20 103/64 99 10/01/16 12:00 40 10/01/16 12:00 100.2 103 16 101/49 100 10/01/16 10/01/16 10/02/16 15:00 23:00 07:00 Intake Total 1572 ml 2028 ml 1169 ml Output Total 1475 ml 1030 ml 940 ml Balance 97 ml 998 ml 229 ml Intake IV Total 1572 ml 1988 ml 1169 ml Other 40 ml Output Urine Total 1425 ml 1030 ml 940 ml Gastric Drainage Total 50 ml 0 ml 0 ml Laboratory Tests Test 09/30/16 10/01/16 10/02/16 15:15 04:12 03:15 White Blood Count 19.7 TH/MM3 15.9 TH/MM3 17.0 TH/MM3 Red Blood Count 3.33 MIL/MM3 2.99 MIL/MM3 2.85 MIL/MM3 Hemoglobin 9.9 GM/DL 8.8 GM/DL 8.5 GM/DL Hematocrit 29.2 % 26.3 % 25.2 % Mean Corpuscular Volume 87.5 FL 88.0 FL 88.3 FL Mean Corpuscular Hemoglobin 29.8 PG 29.3 PG 29.6 PG Mean Corpuscular Hemoglobin 34.0 % 33.3 % 33.5 % Concent Red Cell Distribution Width 13.9 % 14.0 % 14.7 % Platelet Count 163 TH/MM3 109 TH/MM3 115 TH/MM3 Mean Platelet Volume 8.3 FL 8.4 FL 8.4 FL Neutrophils (%) (Auto) 87.4 % % Lymphocytes (%) (Auto) 5.1 % % Monocytes (%) (Auto) 6.4 % % Eosinophils (%) (Auto) 0.9 % % Basophils (%) (Auto) 0.2 % % Neutrophils # (Auto) 17.2 TH/MM3 TH/MM3 Lymphocytes # (Auto) 1.0 TH/MM3 TH/MM3 Monocytes # (Auto) 1.3 TH/MM3 TH/MM3 Eosinophils # (Auto) 0.2 TH/MM3 TH/MM3 Basophils # (Auto) 0.0 TH/MM3 TH/MM3 CBC Comment AUTO DIFF AUTO DIFF Differential Comment AUTO DIFF FINAL DIFF CONFIRMED MANUAL Platelet Estimate NORMAL LOW Platelet Morphology Comment NORMAL NORMAL Red Cell Morphology Comment NORMAL NORMAL Differential Total Cells 100 Counted Neutrophils % (Manual) 75 % Band Neutrophils % 10 % Lymphocytes % 4 % Monocytes % 9 % Neutrophils # (Manual) 13.8 TH/MM3 Metamyelocytes 1 % Myelocytes 1 % Toxic Vacuolation PRESENT Dohle Bodies PRESENT Laboratory Tests Test 09/30/16 09/30/16 09/30/16 10/01/16 15:00 15:15 20:11 03:08 Lactic Acid Level 3.7 mmol/L 1.1 mmol/L 0.8 mmol/L Sodium Level 147 MEQ/L 148 MEQ/L 152 MEQ/L Potassium Level 4.7 MEQ/L Chloride Level 110 MEQ/L Carbon Dioxide Level 26.6 MEQ/L Anion Gap 10 MEQ/L Blood Urea Nitrogen 54 MG/DL Creatinine 1.69 MG/DL Estimat Glomerular Filtration 49 ML/MIN Rate Random Glucose 160 MG/DL Calcium Level 8.8 MG/DL Phosphorus Level 4.0 MG/DL Magnesium Level 2.7 MG/DL Total Bilirubin 0.8 MG/DL Aspartate Amino Transf 91 U/L (AST/SGOT) Alanine Aminotransferase 72 U/L (ALT/SGPT) Alkaline Phosphatase 175 U/L Total Creatine Kinase 372 U/L Creatine Kinase MB 7.6 NG/ML Creatine Kinase MB % 2.0 % Troponin I 11.90 NG/ML 11.60 NG/ML 10.30 NG/ML Total Protein 7.3 GM/DL Albumin 2.4 GM/DL Thyroid Stimulating Hormone 0.160 uIU/ML 3rd Gen Serum Osmolality 320 MOSM/KG 322 MOSM/KG Lipase 37 U/L Test 10/01/16 10/01/16 10/01/16 10/01/16 04:12 09:00 14:38 20:05 Sodium Level 151 MEQ/L 152 MEQ/L 154 MEQ/L 154 MEQ/L Potassium Level 3.7 MEQ/L Chloride Level 119 MEQ/L Carbon Dioxide Level 24.4 MEQ/L Anion Gap 8 MEQ/L Blood Urea Nitrogen 32 MG/DL Creatinine 0.95 MG/DL Estimat Glomerular Filtration 96 ML/MIN Rate Random Glucose 133 MG/DL Calcium Level 8.2 MG/DL Phosphorus Level 3.0 MG/DL Magnesium Level 2.6 MG/DL Total Bilirubin 0.6 MG/DL Aspartate Amino Transf 80 U/L (AST/SGOT) Alanine Aminotransferase 59 U/L (ALT/SGPT) Alkaline Phosphatase 137 U/L Ammonia LESS THAN 10 MCMOL/L Total Protein 6.2 GM/DL Albumin 1.9 GM/DL Random Cortisol 32.4 MCG/DL Serum Osmolality 327 MOSM/KG 328 MOSM/KG 332 MOSM/KG Lactic Acid Level 0.9 mmol/L 0.8 mmol/L Total Creatine Kinase 1064 U/L Creatine Kinase MB 12.7 NG/ML Creatine Kinase MB % 1.2 % Free Thyroxine 1.07 NG/DL Free Triiodothyronine (T3) LESS THAN 0.50 pg/dL PG/ML Test 10/02/16 03:15 Sodium Level 157 MEQ/L Potassium Level 4.0 MEQ/L Chloride Level 124 MEQ/L Carbon Dioxide Level 25.6 MEQ/L Anion Gap 7 MEQ/L Blood Urea Nitrogen 23 MG/DL Creatinine 0.82 MG/DL Estimat Glomerular Filtration 114 ML/MIN Rate Random Glucose 152 MG/DL Serum Osmolality 334 MOSM/KG Calcium Level 8.1 MG/DL Microbiology Date/Time Procedure Status Source Growth 09/30/16 15:00 Aerobic Blood Culture - Preliminary Resulted Blood Peripheral Staphylococcus Aureus 09/30/16 15:00 Anaerobic Blood Culture - Preliminary Resulted Gram Positive Cocci 09/30/16 15:05 Aerobic Blood Culture - Preliminary Resulted Blood Peripheral Gram Positive Cocci 09/30/16 15:05 Anaerobic Blood Culture - Preliminary Resulted Gram Positive Cocci 09/30/16 20:11 Aerobic Blood Culture - Preliminary Resulted Blood Line Gram Positive Cocci 09/30/16 20:11 Anaerobic Blood Culture - Preliminary Resulted Blood Line NO GROWTH IN 2 DAYS 09/30/16 22:50 Gram Stain - Final Complete Sputum Endotracheal 09/30/16 22:50 Sputum Culture - Final Complete Staphylococcus Aureus PHYSICAL EXAMINATION GENERAL: Patient is unresponsive. HEENT: No icterus. Positive conjunctival erythematous lesions at the lower eyelids. Oropharynx: dry mucosa. NECK: No palpable adenopathy. No swelling. LUNGS: Basilar rhonchi. HEART: 3/6 systolic murmur at the left sternal border. ABDOMEN: Bowel sounds are present, soft, flat, nontender. : Normal genitalia. EXTREMITIES: No clubbing or cyanosis or edema. The patient has embolic purpuric lesions at the plantar aspect of the great toe on the left and the second toe on the left and also the great toe on the right and several pinpoint purpuric lesions at the base of the foot beyond the toe plantar aspect. SKIN: Bright red erythematous confluent rash is present at the feet with multiple punctate areas. There is peeled skin at the plantar aspect of both feet which is dried. There is confluent erythema at the arm both left and right and punctate erythematous lesion at the elbow on the right hand. There is no erythema at the chest, trunk, neck or face. The lower extremities have no edema. IMPRESSION 1. Septic shock due to gram-positive cocci. 2. Acute endocarditis. [place] aortic valve. 3. Acute respiratory failure. 4. Bilateral lung infiltrates, probably secondary to septic emboli. 5. 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 6. History of IV drug abuse. Unknown current use status. 7. Antibiotic allergies. The patient reportedly is allergic to penicillin and sulfa. 8. Recent drug rash. It is not clear what antibiotic the patient received prior to development of the rash and this is yet to be definitively confirmed. RECOMMENDATIONS: 1. Continue Vancomycin. 2. Continue Ceftriaxone. 3. Repeat blood culture in AM. Follow identity of current blood cultures. 4. Follow sputum culture. 5. D/C isolation if no MRSA in sputum. Nemesio Jackson MD October 02, 2016 11:45
--- NOTE | 2016-10-02 12:15 | HHI.NSPN ---
(Elliott Fragoso) Note Status Status: Progress Note (Elliott Fragoso) Interval History Interval History 10/01: The HPI is obtained from a review of the EMR due to the patient's altered mental status and intubation. This is a 26-year-old male who was found by his landlord on with altered mental status and called EMS. Upon arrival of EMS the patient had a GCS of 10. In the emergency department the patient was hypotensive and tachycardiac. He was emergently intubated for airway protection. His CT brain demonstrated significant areas of infarction to the right frontal, temporal and cerebellar regions as well as a small subarachnoid haemorrhage to the superior right parietal region. There was a 3 mm midline shift as well as effacement on the right. The patient's laboratory data is significant for white blood cell count of 19,000, haemoglobin of 9.9, lactate of 3.7, creatinine 1.69, CK 372, troponin of 11.9. His urine drug screen is positive for opiates and amphetamines. He was subsequently admitted to the [facility] for further management and monitoring. Per EMS and ED reports, patient was seen approximately 10 days prior to admission by an unknown physician in the clinic and given antibiotic for fever. After taking the antibiotic, the patient had a new red rash on his hands and healing on his feet. He he was seen in the emergency department 2 days prior to admission for low-grade fever and congestion, generalized weakness, lightheadedness. At that time she was given prescription for prednisone 40 mg daily for 5 days. The patient's landlord apparently found the patient today with altered mental status and called EMS. When EMS arrived, his GCS was 10. There is reports that the patient has a history of substance abuse and was recently in rehabilitation. The patient's roommate confirmed to the [employer] that the patient had recently been in rehabilitation due to a history of substance abuse. The roommate did not think he was doing any illicit drugs recently. 10/02: The patient remains intubated & sedated. He withdraws to painful stimuli to the extremities. (Elliott Fragoso) Labs, Micro, & Vital Signs Results Allergies Coded Allergies Type Severity Reaction Last Updated Verified Sulfa Allergy Unknown 09/30/16 Yes Toradol Allergy Unknown 09/30/16 Yes Recent Impressions Head CT 10/02/16 0000 Signed Impressions: Service Date/Time: Sunday, October 02, 2016 10:19 - CONCLUSION: 1. Stable multifocal areas of low density bilaterally, as above. No acute blood products are identified. Overall, no significant change has occurred since yesterday's exam. 2. Persistent but minimal right to left midline shift currently measuring 3 mm. Michael Escalera MD Head CT 10/01/16 0000 Signed Impressions: Service Date/Time: Saturday, October 01, 2016 11:00 - CONCLUSION: 1. Multifocal areas of low-density in the cerebrum and cerebellum, as above. These areas are now lower in attenuation and more well-defined typical of evolving edema. 2. There is approximately 4 mm of [id number] midline shift, increased from 2 mm on yesterday's examination. Michael Escalera MD Chest X-Ray 10/01/16 0000 Signed Impressions: Service Date/Time: Saturday, October 01, 2016 05:10 - CONCLUSION: Slight worsening bilateral perihilar infiltrates. 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 Please see above. No mass or evidence of abscess. 4 mm of leftward midline shift. Small subarachnoid blood. Michael Freitas MD Head CT 09/30/16 1453 Signed Impressions: Service Date/Time: Friday, September 30, 2016 16:31 - CONCLUSION: Noncontrast CT findings of concern for multiple intra-axial masses. There is small acute subarachnoid blood present and about 3 mm of leftward midline shift. MRI of the brain with and without contrast recommended. Michael Freitas MD Chest X-Ray 09/30/16 1453 Signed Impressions: Service Date/Time: Friday, September 30, 2016 15:23 - CONCLUSION: No acute cardiopulmonary disease demonstrated. Appropriate endotracheal tube tip position. Nasogastric tube courses into the stomach, tip not included on the study. Michael Freitas MD Renal Ultrasound 09/30/16 0000 Signed Impressions: Service Date/Time: Friday, September 30, 2016 18:45 - CONCLUSION: Ultrasound appearance of the kidneys within normal limits. Jerez catheter in the urinary bladder. Nonspecific splenomegaly incidentally noted. Michael Freitas MD Head Magnetic Resonance Angiography 09/30/16 0000 Signed Impressions: Service Date/Time: Friday, September 30, 2016 17:42 - CONCLUSION: No occlusion, aneurysm or other acute intracranial vascular abnormality demonstrated. Michael Freitas MD Chest X-Ray 09/30/16 0000 Signed Impressions: Service Date/Time: Friday, September 30, 2016 21:06 - CONCLUSION: Endotracheal tube and nasogastric tube unchanged. Left subclavian central venous catheter has been placed, tip in superior vena cava. No pneumothorax or other acute complication. Michael Freitas MD /////// 05:59 17:59 05:59 17:59 05:59 17:59 Intake Total 799 ml 2971 ml 2028 ml 2022 ml Output Total 1600 ml 1650 ml 3250 ml 1595 ml 585.0 ml Balance -1600 ml -851 ml -279 ml 433 ml 1437.0 ml Intake IV Total 799 ml 2971 ml 1988 ml 2022 ml Other 40 ml Output Urine Total 1600 ml 1525 ml 3025 ml 1595 ml 530 ml Gastric Drainage Total 125 ml 225 ml 0 ml 50 ml Tube Feeding Residual Discard 5.0 ml # Voids 0 Laboratory Tests Test 09/30/16 09/30/16 09/30/16 09/30/16 14:53 15:00 15:05 15:15 Blood Gas Puncture Site RT Blood Gas Patient Temperature 98.6 Blood Gas HCO3 21 mmol/L Blood Gas Base Excess -3.3 mmol/L Blood Gas Oxygen Saturation 98 % Arterial Blood pH 7.38 Arterial Blood Partial 36 mmHg Pressure CO2 Arterial Blood Partial 215 mmHG Pressure O2 Arterial Blood Oxygen Content 13.5 Vol % Arterial Blood 0.7 % Carboxyhemoglobin Arterial Blood Methemoglobin 0.5 % Blood Gas Hemoglobin 9.4 G/DL Oxygen Delivery Device VENTILATOR Blood Gas Ventilator Setting AC14/500/5PEEP Blood Gas Inspired Oxygen 60 % Lactic Acid Level 3.7 mmol/L Urine Color YELLOW Urine Turbidity HAZY Urine pH 5.5 Urine Specific [place]al 1.014 Urine Protein 30 mg/dL Urine Glucose (UA) NEG mg/dL Urine Ketones NEG mg/dL Urine Occult Blood SMALL Urine Nitrite NEG Urine Bilirubin NEG Urine Urobilinogen LESS THAN 2.0 MG/DL Urine Leukocyte Esterase SMALL Urine RBC 1 /hpf Urine WBC 5 /hpf Microscopic Urinalysis Comment CULT NOT INDICATED Urine Opiates Screen POS Urine Barbiturates Screen NEG Urine Amphetamines Screen POS Urine Benzodiazepines Screen NEG Urine Cocaine Screen NEG Urine Cannabinoids Screen NEG Urine Random Creatinine 86.0 MG/DL Urine Random Sodium 11 MEQ/L White Blood Count 19.7 TH/MM3 Red Blood Count 3.33 MIL/MM3 Hemoglobin 9.9 GM/DL Hematocrit 29.2 % Mean Corpuscular Volume 87.5 FL Mean Corpuscular Hemoglobin 29.8 PG Mean Corpuscular Hemoglobin 34.0 % Concent Red Cell Distribution Width 13.9 % Platelet Count 163 TH/MM3 Mean Platelet Volume 8.3 FL Neutrophils (%) (Auto) 87.4 % Lymphocytes (%) (Auto) 5.1 % Monocytes (%) (Auto) 6.4 % Eosinophils (%) (Auto) 0.9 % Basophils (%) (Auto) 0.2 % Neutrophils # (Auto) 17.2 TH/MM3 Lymphocytes # (Auto) 1.0 TH/MM3 Monocytes # (Auto) 1.3 TH/MM3 Eosinophils # (Auto) 0.2 TH/MM3 Basophils # (Auto) 0.0 TH/MM3 CBC Comment AUTO DIFF Differential Comment AUTO DIFF CONFIRMED Platelet Estimate NORMAL Platelet Morphology Comment NORMAL Red Cell Morphology Comment NORMAL Prothrombin Time 13.6 SEC Prothromb Time International 1.2 RATIO Ratio Activated Partial 28.2 SEC Thromboplast Time Sodium Level 147 MEQ/L Potassium Level 4.7 MEQ/L Chloride Level 110 MEQ/L Carbon Dioxide Level 26.6 MEQ/L Anion Gap 10 MEQ/L Blood Urea Nitrogen 54 MG/DL Creatinine 1.69 MG/DL Estimat Glomerular Filtration 49 ML/MIN Rate Random Glucose 160 MG/DL Calcium Level 8.8 MG/DL Phosphorus Level 4.0 MG/DL Magnesium Level 2.7 MG/DL Total Bilirubin 0.8 MG/DL Aspartate Amino Transf 91 U/L (AST/SGOT) Alanine Aminotransferase 72 U/L (ALT/SGPT) Alkaline Phosphatase 175 U/L Total Creatine Kinase 372 U/L Creatine Kinase MB 7.6 NG/ML Creatine Kinase MB % 2.0 % Troponin I 11.90 NG/ML Total Protein 7.3 GM/DL Albumin 2.4 GM/DL Thyroid Stimulating Hormone 0.160 uIU/ML 3rd Gen Salicylates Level LESS THAN 1.7 MG/DL Acetaminophen Level LESS THAN 2.0 MCG/ML Ethyl Alcohol Level LESS THAN 3 MG/DL Test 09/30/16 09/30/16 09/30/16 10/01/16 18:00 20:11 20:53 03:08 Nasal Screen MRSA (PCR) MRSA NOT DETECTED Fibrinogen 492 mg/dL Sodium Level 148 MEQ/L 152 MEQ/L Serum Osmolality 320 MOSM/KG 322 MOSM/KG Lactic Acid Level 1.1 mmol/L 0.8 mmol/L Troponin I 11.60 NG/ML 10.30 NG/ML Lipase 37 U/L Hepatitis A IgM Antibody NEGATIVE Hepatitis B Surface Antigen NEGATIVE Hepatitis B Core IgM Antibody NEGATIVE Hepatitis C Antibody NEGATIVE HIV (1&2) Antibody NEGATIVE Test 10/01/16 10/01/16 10/01/16 10/01/16 04:12 04:57 09:00 14:38 White Blood Count 15.9 TH/MM3 Red Blood Count 2.99 MIL/MM3 Hemoglobin 8.8 GM/DL Hematocrit 26.3 % Mean Corpuscular Volume 88.0 FL Mean Corpuscular Hemoglobin 29.3 PG Mean Corpuscular Hemoglobin 33.3 % Concent Red Cell Distribution Width 14.0 % Platelet Count 109 TH/MM3 Mean Platelet Volume 8.4 FL Neutrophils (%) (Auto) % Lymphocytes (%) (Auto) % Monocytes (%) (Auto) % Eosinophils (%) (Auto) % Basophils (%) (Auto) % Neutrophils # (Auto) TH/MM3 Lymphocytes # (Auto) TH/MM3 Monocytes # (Auto) TH/MM3 Eosinophils # (Auto) TH/MM3 Basophils # (Auto) TH/MM3 CBC Comment AUTO DIFF Differential Total Cells 100 Counted Neutrophils % (Manual) 75 % Band Neutrophils % 10 % Lymphocytes % 4 % Monocytes % 9 % Neutrophils # (Manual) 13.8 TH/MM3 Metamyelocytes 1 % Myelocytes 1 % Differential Comment FINAL DIFF MANUAL Toxic Vacuolation PRESENT Dohle Bodies PRESENT Platelet Estimate LOW Platelet Morphology Comment NORMAL Red Cell Morphology Comment NORMAL Prothrombin Time 13.9 SEC Prothromb Time International 1.2 RATIO Ratio Activated Partial 30.0 SEC Thromboplast Time Sodium Level 151 MEQ/L 152 MEQ/L 154 MEQ/L Potassium Level 3.7 MEQ/L Chloride Level 119 MEQ/L Carbon Dioxide Level 24.4 MEQ/L Anion Gap 8 MEQ/L Blood Urea Nitrogen 32 MG/DL Creatinine 0.95 MG/DL Estimat Glomerular Filtration 96 ML/MIN Rate Random Glucose 133 MG/DL Calcium Level 8.2 MG/DL Phosphorus Level 3.0 MG/DL Magnesium Level 2.6 MG/DL Total Bilirubin 0.6 MG/DL Aspartate Amino Transf 80 U/L (AST/SGOT) Alanine Aminotransferase 59 U/L (ALT/SGPT) Alkaline Phosphatase 137 U/L Ammonia LESS THAN 10 MCMOL/L Total Protein 6.2 GM/DL Albumin 1.9 GM/DL Random Cortisol 32.4 MCG/DL Blood Gas Puncture Site ART LINE Blood Gas Patient Temperature 98.6 Blood Gas HCO3 21 mmol/L Blood Gas Base Excess -3.3 mmol/L Blood Gas Oxygen Saturation 97 % Arterial Blood pH 7.37 Arterial Blood Partial 37 mmHg Pressure CO2 Arterial Blood Partial 163 mmHg Pressure O2 Arterial Blood Oxygen Content 16.3 Vol % Arterial Blood 0.7 % Carboxyhemoglobin Arterial Blood Methemoglobin 1.1 % Blood Gas Hemoglobin 11.7 G/DL Oxygen Delivery Device VENTILATOR Blood Gas Ventilator Setting AC14/500/PEEP5 Blood Gas Inspired Oxygen 40 % Serum Osmolality 327 MOSM/KG 328 MOSM/KG Lactic Acid Level 0.9 mmol/L 0.8 mmol/L Total Creatine Kinase 1064 U/L Creatine Kinase MB 12.7 NG/ML Creatine Kinase MB % 1.2 % Free Thyroxine 1.07 NG/DL Free Triiodothyronine (T3) LESS THAN 0.50 pg/dL PG/ML Test 10/01/16 10/02/16 10/02/16 20:05 03:15 05:55 Sodium Level 154 MEQ/L 157 MEQ/L Serum Osmolality 332 MOSM/KG 334 MOSM/KG White Blood Count 17.0 TH/MM3 Red Blood Count 2.85 MIL/MM3 Hemoglobin 8.5 GM/DL Hematocrit 25.2 % Mean Corpuscular Volume 88.3 FL Mean Corpuscular Hemoglobin 29.6 PG Mean Corpuscular Hemoglobin 33.5 % Concent Red Cell Distribution Width 14.7 % Platelet Count 115 TH/MM3 Mean Platelet Volume 8.4 FL Potassium Level 4.0 MEQ/L Chloride Level 124 MEQ/L Carbon Dioxide Level 25.6 MEQ/L Anion Gap 7 MEQ/L Blood Urea Nitrogen 23 MG/DL Creatinine 0.82 MG/DL Estimat Glomerular Filtration 114 ML/MIN Rate Random Glucose 152 MG/DL Calcium Level 8.1 MG/DL Vancomycin Level Trough 8.8 MCG/ML Blood Gas Puncture Site ART LINE Blood Gas Patient Temperature 98.6 Blood Gas HCO3 23 mmol/L Blood Gas Base Excess -1.0 mmol/L Blood Gas Oxygen Saturation 97 % Arterial Blood pH 7.38 Arterial Blood Partial 40 mmHg Pressure CO2 Arterial Blood Partial 176 mmHg Pressure O2 Arterial Blood Oxygen Content 11.9 Vol % Arterial Blood 0.8 % Carboxyhemoglobin Arterial Blood Methemoglobin 1.0 % Blood Gas Hemoglobin 8.4 G/DL Oxygen Delivery Device VENTILATOR Blood Gas Ventilator Setting AC/500/14/5PEEP Blood Gas Inspired Oxygen 40 % Constitutional Vital Signs Date Time Temp Pulse Resp B/P Pulse Ox O2 Delivery O2 Flow Rate FiO2 10/02/16 11:07 99 30 10/02/16 11:02 111 10/02/16 10:20 100 100 10/02/16 10:00 110 10/02/16 09:00 116 10/02/16 08:00 99.7 112 23 98/50 100 10/02/16 08:00 112 10/02/16 08:00 30 10/02/16 07:38 100 30 10/02/16 06:00 103 10/02/16 04:00 112 10/02/16 04:00 40 10/02/16 04:00 99.0 112 19 125/70 99 10/02/16 04:00 99 40 10/02/16 02:00 98 10/02/16 01:39 20 10/02/16 00:55 99 40 10/02/16 00:00 100.0 105 16 111/66 100 10/02/16 00:00 105 10/02/16 00:00 40 10/01/16 22:00 105 10/01/16 20:00 40 10/01/16 20:00 111 10/01/16 20:00 100.0 108 16 122/64 100 10/01/16 19:51 100 50 10/01/16 16:52 100 40 10/01/16 16:00 40 10/01/16 16:00 100.2 109 20 103/64 99 10/02/16 06:59 Intake Total 4769 ml Output Total 3445 ml Balance 1324 ml (Elliott Fragoso) Review of Systems/Exam ROS Unable to obtain a ROS due to the patient's mental status, sedation & intubation. Exam GENERAL: Sedated & intubated, no agitation. HEENT: Normocephalic, atraumatic. PERRL 2 mm, sluggish. Mucous membranes dry, orally intubated, OGT present. NECK: No nuchal rigidity, no JVD, trachea midline. CHEST: CTAB w/o W/R/R, equal excursion, non-laboured, orally intubated & mechanically ventilated. CARDIOVASCULAR: S1S2 w/regular rate but fast, grade II/ murmur, radial & pedal pulses 2+ bilaterally, cap refill < 2 sec, 2+ edema at ankles but less to feet. Monitor is sinus tachycardia w/o any ectopy noted. ABDOMEN: Abdomen soft, nontender, no palpable masses or organomegaly, positive bowel sounds, OGT with enteral feeds. GENITOURINARY: Normal male genitalia, Jerez catheter to BSD. MUSCULOSKELETAL: BUTCHER, no evident TTP, no evident deformity or clubbing. INTEGUMENTARY: There is a nonblanching macular rash primarily over the dorsal aspect of the bilateral feet up to the ankle, there is scaling of the skin which is peeling off. The tip of the right great toe does have several very small necrotic areas. NEUROLOGICAL: Sedated & intubated, GCS 7T (E1 V1T M5) He is not following any commands but does withdraw to painful stimuli, no eye opening Unable to assess for sensory deficit due to mental status Negative Babinski sign on right but appears positive on left (Elliott Fragoso) Medications Current Medications Current Medications Medications (Trade) Dose Ordered Sig/Beena Route Start Time Stop Time Status Last Admin Ceftriaxone Sodium 2000 mg/ Sodium Chloride 100 ml @ 200 mls/hr Q12H IV 10/01/16 03:00 10/02/16 03:15 (Vancomycin Consult Pharmacy) 0 ml @ 0 mls/hr UNSCH OTHER 09/30/16 17:30 Chlorhexidine Gluconate 15 ml 15 ml BID@08,20 MT 09/30/16 20:00 10/02/16 08:24 Propofol 100 ml @ 0 mls/hr TITRATE IV 09/30/16 17:45 10/02/16 03:15 (fentaNYL DRIP) 250 ml @ 0 mls/hr TITRATE IV 09/30/16 17:45 10/02/16 00:55 (NS Flush) 2 ml UNSCH PRN IV FLUSH 09/30/16 17:45 (NS Flush) 2 ml BID IV FLUSH 09/30/16 21:00 10/02/16 08:25 (Tylenol) 650 mg Q6H PRN PO 09/30/16 17:45 10/02/16 00:36 (Protonix Inj) 40 mg DAILY IV 10/01/16 09:00 10/02/16 08:25 (Tears Naturale Opth Soln) 1 drop TID EACH EYE 09/30/16 18:00 10/02/16 08:24 (Zofran Inj) 4 mg Q6H PRN IV 09/30/16 17:45 (Colace Liq) 100 mg Q12H G-TUBE 09/30/16 20:00 10/02/16 08:23 (Senna Liq) 17.6 mg Q12H PRN G-TUBE 09/30/16 17:45 Miscellaneous Information 1 Q361D XX 09/30/16 17:45 09/30/16 17:45 (Chlorhexidine 2% Cloth) 3 pack Taper DAILY@04 TOP 10/01/16 04:00 09/27/17 03:59 10/02/16 02:00 (Chlorhexidine 2% Cloth) 3 pack UNSCH PRN TOP 09/30/16 17:45 (D50w (Vial) Inj) 50 ml UNSCH PRN IV 09/30/16 18:00 (Glucagon Inj) 1 mg UNSCH PRN OTHER 09/30/16 18:00 Insulin Human Regular 1 1 Q6HR SQ 09/30/16 18:00 (Levophed Inj/NS 250 ml Inj) 254 ml @ 0 mls/hr TITRATE IV 10/01/16 04:15 10/02/16 03:15 Quetiapine Fumarate 50 mg 50 mg Q8HR PO 10/02/16 08:00 10/02/16 08:24 (Vancomycin Inj/ NS 500 ml Inj) 515 ml @ 250 mls/hr Q12H IV 10/02/16 17:00 Miscellaneous Information SPECIFIC LAB TO BE DRAWN:VANCOMYCIN TROUGH DATE TO... ONCE ONCE .XX 10/04/16 04:45 10/04/16 04:46 (Elliott Fragoso) Medical Decision Making MDM Remarks Impression: Multiple acute septic CVAs Cerebral edema Small subarachnoid hemorrhage Midline shift, 3 mm Metabolic encephalopathy Septic shock Infective endocarditis Sodium 157, above target level of 155 Blood cultures & sputum from both growing Staph aureus CT brain this morning unremarkable for any change (Elliott Fragoso) Plan Plan Remarks CT brain qd in AM Stat CT brain for any further decline in neurological status Frequent neuro checks 3% saline PRN to keep sodium level at 155 Monitor sodium levels Critical care management by [employer] Antibiotics per Infectious Disease (Elliott Fragoso) Attending Statement I have personally seen and examined the patient on 10/02/16. Pertinent documentation and study results have been reviewed by the undersigned. I have personally developed the treatment plan and performed medical decision making. Agree with findings, exam, and treatment plan as noted above. Remains intubated with sedation. Discussed with nursing staff. Examination as above. Moves all extremities and opens eyes with decreased sedation. Still requires sedation for agitation. Discussed with patient's family in the room today. We will check a CT scan head again in the a.m. Discussed with mechanics handyman. Based on the most recent CT scan images, he will probably not require surgical intervention. Continue to keep sodium in the 145-155 range. (Pino Michelle MD) Elliott Fragoso October 02, 2016 12:14 Pino Michelle MD October 03, 2016 22:32
[2016-10-02] MEDS ORDERED: VANCOMYCIN INJ 1,500 MG in SODIUM CHLORID 0.9% 500 ML INJ 500 ML IV SCH (17:00)
[2016-10-03] VITALS (19 sets, daily range): BP systolic 118–128; BP diastolic 52–63; PULSE 100–131; RESP 14–17; TEMP 99.2–100.9; O2SAT 0–100
[2016-10-03] MEDS: PROPOFOL 1000 MG/100 ML INJ 100 ML IV SCH ×3 (00:08→19:12)
[2016-10-03] MEDS: fentaNYL DRIP 250 ML IV SCH ×3 (00:09→23:14)
[2016-10-03] MEDS: RESP: ALBUTEROL 2.5 MG/IPRATROPIUM 0.5 MG NEB (SCH) INH ×4 (00:59→21:11)
[2016-10-03] MEDS: ACETAMINOPHEN 325 MG TAB PO PRN ×3 (01:42→19:53)
[2016-10-03] MEDS: LACTATED RINGER'S 1000 ML INJ 1,000 ML IV SCH ×2 (02:34→13:51)
[2016-10-03] MEDS: cefTRIAXone INJ 2,000 MG in SODIUM CHLORIDE 0.9% INJ 100 ML IV SCH ×2 (02:46→13:50)
[2016-10-03] MEDS: CHLORHEXIDINE GLUCONATE 2 % 1 PACK (2 CLOTHS) TOP SCH (04:08)
[2016-10-03 05:33] LABS: AUTOMATED NEUTROPHIL # 17.5 TH/MM3 (1.8-7.7); BASOPHIL # 0.1 TH/MM3 (0-0.2); BASOPHIL % 0.3 % (0.0-2.0); EOSINOPHIL # 0.1 TH/MM3 (0-0.4); EOSINOPHIL % 0.6 % (0.0-4.0); HEMATOCRIT 26.1 % (39.0-51.0); HEMO FLAGS DIFF FINAL; LYMPH % 8.5 % (9.0-44.0); LYMPHOCYTE # 1.7 TH/MM3 (1.0-4.8); MEAN CELL VOLUME 88.1 FL (80.0-100.0); MEAN CORPUSCULAR HEMOGLOBIN 29.1 PG (27.0-34.0); MONO % 4.1 % (0.0-8.0); NEUT % 86.5 % (16.0-70.0); PLATELET COUNT 132 TH/MM3 (150-450); RED BLOOD COUNT 2.96 MIL/MM3 (4.50-5.90); RED CELL DISTRIBUTION WIDTH 14.5 % (11.6-17.2); WHITE BLOOD COUNT 20.2 TH/MM3 (4.0-11.0)
[2016-10-03 05:57] LABS: BICARBONATE 28.9 MEQ/L (21.0-32.0); POTASSIUM 4.1 MEQ/L (3.5-5.1)
[2016-10-03] MEDS: INSULIN NovoLIN REGULAR SUPPLEMENTAL SCALE SQ SCH ×5 (06:00→23:16)
[2016-10-03] MEDS: QUEtiapine FUMARATE 25 MG TAB PO SCH ×3 (07:38→21:35)
--- NOTE | 2016-10-03 07:45 | HHI.CCPN ---
Subjective Remarks/Hospital Course Hospital Course: This is a 26yM who presents to the ED for altered mental status. On arrival, the patient was obtunded and emergently intubated. His roommate is with him and cannot provide much medical history. The remainder of the history is per EMS and ER documentation and my discussion with the ER physician. Per EMS and ED reports, patient was seen approximately 10 days prior to admission by an unknown physician in the clinic and given antibiotic for fever. After taking the antibiotic, the patient had a new red rash on his hands and healing on his feet. He he was seen in the emergency department 2 days prior to admission for low-grade fever and congestion, generalized weakness, lightheadedness. At that time she was given prescription for prednisone 40 mg daily for 5 days. The patient's landlord apparently found the patient today with altered mental status and called EMS. When EMS arrived, his GCS was 10. There is reports that the patient has a history of substance abuse and was recently in rehabilitation. I did talk to the roommate who confirms that the patient had recently gotten out of rehabilitation and was living with him. The remainder does say that he does not think the patient has been taking any illicit substances recently. In the emergency department, the patient was hypotensive, tachycardic. His head CT is significant for significant areas of infarction in the right frontal , temporal, and cerebellar regions as well as a small area of subarachnoid hemorrhage in the superior right parietal region. Patient has early 3 mm of midline shift as well as effacement on the right. Patient's laboratory data is significant for white blood cell count of 19,000, hemoglobin of 9.9, lactate of 3.7, creatinine 1.69, CK 372, troponin of 11.9. His urine drug screen is positive for opiates and amphetamines. I performed a bedside critical care ultrasound which demonstrated hyperdynamic left ventricular function and what appears to be aortic valve vegetations and I measured to be proximally 0.9 x 8.8 cm. This is associated with what appears to be severe aortic regurgitation. There is no pericardial effusion. Right ventricular function is preserved. A formal echo has been ordered to confirm these findings. Critical care medicine has been consulted to evaluate and manage his shock, altered mental status, multiple areas of infarction, and subarachnoid hemorrhage. Subjective: 10/01: seen and examined around 06:30am. patient on norepinephrine at 6 mcg/min , persistently in shock. patient localizes to pain x 4 extremities. repeat interval head CT with 4mm midline shift. echo with significant aortic valve vegetations and moderate aortic insufficiency. 10/02: now following commands intermittently on the RUE, still localizing in LUE , BLE. off vasopressors this morning. cultures growing staph, sensitivities to follow. 10/03: tachycardic overnight. off vasopressors this morning. not following commands this morning. still persistently febrile and wbc uptrended to 20k. Objective Vital Signs Date Time Temp Pulse Resp B/P Pulse Ox O2 Delivery O2 Flow Rate FiO2 10/03/16 04:23 100 30 10/03/16 02:42 16 10/03/16 00:00 100.6 120 128/60 10/01/16 07:00 Mechanical Ventilator Intake and Output 10/02/16 10/02/16 10/03/16 08:00 16:00 00:00 Intake Total 1544 ml 1040 ml 1403 ml Output Total 1100 ml 655.0 ml 1365 ml Balance 444 ml 385.0 ml 38 ml Result Diagram: 10/03/16 0500 10/03/16 0500 Other Results Microbiology Date/Time Procedure Status Source Growth 09/30/16 15:05 Aerobic Blood Culture - Final Complete Blood Peripheral Staphylococcus Aureus 09/30/16 15:05 Anaerobic Blood Culture - Final Complete Staphylococcus Aureus 09/30/16 22:50 Gram Stain - Final Complete Sputum Endotracheal 09/30/16 22:50 Sputum Culture - Final Complete Staphylococcus Aureus Imaging Last Impressions Head CT 09/30/16 8798 Signed Impressions: Service Date/Time: Friday, September 30, 2016 16:31 - CONCLUSION: Noncontrast CT findings of concern for multiple intra-axial masses. There is small acute subarachnoid blood present and about 3 mm of leftward midline shift. MRI of the brain with and without contrast recommended. Michael Freitas MD Chest X-Ray 09/30/16 1843 Signed Impressions: Service Date/Time: Friday, September 30, 2016 15:23 - CONCLUSION: No acute cardiopulmonary disease demonstrated. Appropriate endotracheal tube tip position. Nasogastric tube courses into the stomach, tip not included on the study. Michael Freitas MD Objective Remarks GENERAL: Young male, lying in bed, intubated, sedated, critically ill HEENT: Pupils 3 mm, equal, sluggishly reactive. Mucous membranes moist. NECK: No JVD. Trachea midline. Orotracheally intubated CHEST: Equal chest rise. Clear to auscultation. CARDIOVASCULAR: Tachycardic rate, regular rhythm. II/ systolic and diastolic murmur. ABDOMEN: Soft, nontender, nondistended. No guarding. MUSCULOSKELETAL: There is a nonblanching macular rash primarily over the dorsal aspect of the bilateral feet up to the ankle. No peripheral edema. Distal pulses 2+. NEUROLOGICAL: RASS -4. does not follow commands for me this morning. weakly localizes in the RUE. spontaneous movements of BLE and w/d to pain. minimal movement in LUE. 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 Still critically ill and with ongoing cerebral edema. neuro exam worse today. will repeat CT head today. also febrile and elevated wbc. will repeat surveillance cultures today. We will continue with supportive care. We are unable to augment his cerebral perfusion pressure due to ongoing shock. Plan by systems: Neurologic: Multiple acute septic CVAs Cerebral edema Small subarachnoid hemorrhage Midline shift, 4 mm Metabolic encephalopathy Agitated Delirium Neurosurgery consulted, Dr. Michelle q1h neuro checks --prop/fent for goal RASS -2. --avoid long-acting sedating meds --hyperosmolar therapy --EEG 10/01- negative for seizures --hold seroquel this morning given worsening mental status. Respiratory: Acute hypoxic and hypercarbic respiratory failure Vent bundle Head of bed 30 Avoid hypercarbia and hypoxia ABG in the AM. Does not meet SBT criteria given his mental status and acute strokes Wean FiO2 for goal SPO2 greater than 92% Cardiovascular: Aortic valve endocarditis Cardiogenic shock- resolving. Moderate aortic insufficiency Septic shock- resolving. continue 3% sodium chloride, currently on hold, goal Na 145-150. Arterial line, central line for invasive central pressure monitoring --trend CVP. Abx as described below 2d echo 10/01: aortic valve vegetations, moderate AI. Norepinephrine for goal map greater than 65 Renal: Acute kidney injury- resolving. Jerez for accurate I's and O's Likely secondary to mixed septic and cardiogenic shock -- Strict I/Os FEN/GI: Hypermagnesemia Lactic acidosis- resolving. Severe metabolic acidosis- resolving. Acute protein calorie malnutritionmild Elevated LFTs start TF, jevity 1.5, nutrition consult for goals. OG tube to suction --had to restart ivf yesterday for persistent hypotension. will attempt to wean today. Serial sodiums, osmolalities Daily BMP, LFTs Heme/ID: Anemia, likely secondary to hemolysis from valvulopathy Infective endocarditis Septic shock- resolving. 10/01 blood cultures: MSSA --10/01 sputum culture: MSSA vancomycin, flagyl d/c 10/02. --continue Rocephin 2gm iv q12h. --repeat surveillance cultures today. Infectious disease following: Dontfraid Endocrine: Hyperglycemia of critical illness -- SSI, every 6 hours, medium scale TSH 0.16, free T4 1.07, T3 < 0.5: likely sick euthyroid. Prophylaxis: GI Prophylaxis Protonix IV DVT Prophylaxis -- SCDs Holding pharmacologic DVT prophylaxis in the setting of cerebral hemorrhage Lines: 09/30 radial arterial line --09/30 left SC TLC --Jerez Dispo: Remain in the ICU. He remains critically ill. This patient remains critically ill with one or more organ systems which are or may become a threat to life. I have spent in excess of 48 minutes discontinuously in the care and management of this patient. This time is exclusive of procedures, and includes, but is not limited to, evaluation of the patient, review of the medical record, discussions with family, consultants, nursing staff, or respiratory therapy, and documentation in the medical record. Yahir Dominguez MD October 03, 2016 07:45
[2016-10-03] MEDS: ARTIFICIAL TEARS OPTH SOLN 15 ML BTL EACH EYE SCH ×3 (08:16→16:11)
[2016-10-03] MEDS: CHLORHEXIDINE 0.12% (ORAL KIT) 15 ML CUP MT SCH ×2 (08:16→19:54)
[2016-10-03] MEDS: SODIUM CHLORIDE 0.9% FLUSH 10 ML FLUSH IV FLUSH SCH ×2 (08:17→19:54)
[2016-10-03] MEDS: PANTOPRAZOLE SODIUM 40 MG VIAL IV SCH (08:18)
[2016-10-03] MEDS: DOCUSATE SODIUM 100 MG/10 ML UDC G-TUBE SCH ×2 (08:18→19:53)
--- NOTE | 2016-10-03 10:12 | RADRPT ---
EXAM DATE/TIME: 10/03/2016 09:51 [facility] COMPARISON: MRI BRAIN W & W/O CONTRAST, September 30, 2016, 17:42. CT BRAIN W/O CONTRAST, October 02, 2016, 10:19. INDICATIONS : Evaluate status of brain abscess RADIATION DOSE: 48.36 CTDIvol (mGy) MEDICAL HISTORY : None SURGICAL HISTORY : None. ENCOUNTER: Subsequent ACUITY: 2 days PAIN SCALE: Non-responsive LOCATION: cranial TECHNIQUE: Multiple contiguous axial images were obtained of the head. Using automated exposure control and adj ustment of the mA and/or kV according to patient size, radiation dose was kept as low as reasonably a chievable to obtain optimal diagnostic quality images. FINDINGS: Focal areas of low-density are again seen in the left parietal, right temporal, right basal ganglia, right posterior frontal and left high parietal region as well as a subtle area of low density in the right frontal region on image 24. A left high parietal paramedian area of low density is also seen. T here is likely no significant change. Right mastoid air cell opacification is present. There are no f ractures. Stable bilateral cerebellar low density foci. Errco-hi-hzbm shift of 3.6 mm is noted decrea sed from previous. CONCLUSION: 1. Multiple foci of low attenuation seen within the cerebral and cerebellar hemispheres consistent wi th evolving infarcts. Mykel Cantu MD on October 03, 2016 at 10:06 Board Certified Radiologist. This report was verified electronically.
--- NOTE | 2016-10-03 12:01 | HHI.IDPN ---
Note Infectious Disease Note Patient is on the vent 30% FIO2. Sedated. Off Levophed. Reported to move extremities to stimulation. Not moving LUE. Febrile. Tachycardic. Blood cultures have gram positive cocci in 5 of 6 bottles. Sputum has staph aureus. Blood culture 10/02 positive. Blood culture repeated today. Spoke to his mom Felicita Roberts about his drug allergies. She reports that he had a reaction to penicillin in his early teens but he has been able to tolerate amoxicillin and ampicillin without difficulty when he goes to the dentist. Patient was brought to the emergency department with altered mental status. PAST MEDICAL HISTORY 1. Substance abuse. The patient was in rehabilitation 1 year ago. 2. ADHD. 3. Degenerative disk disease. ALLERGIES Reportedly the patient is allergic to SULFA, PENICILLIN, TORADOL, CODEINE. ANTIBIOTICS: 1. Ceftriaxone intravenous. 2. Vancomycin intravenous. OBJECTIVE: Vital Signs Date Time Temp Pulse Resp B/P Pulse Ox O2 Delivery O2 Flow Rate FiO2 10/03/16 10:05 100.3 10/03/16 10:05 120 10/03/16 09:30 100 100 10/03/16 08:10 100 30 10/03/16 08:00 30 10/03/16 08:00 120 10/03/16 08:00 99.9 128 16 118/59 99 10/03/16 06:00 108 10/03/16 04:23 100 30 10/03/16 04:00 30 10/03/16 04:00 99.2 100 17 118/56 100 10/03/16 04:00 100 10/03/16 02:42 16 10/03/16 02:00 120 10/03/16 00:59 100 30 10/03/16 00:00 100.6 120 14 128/60 100 10/03/16 00:00 120 10/03/16 00:00 30 10/02/16 22:00 122 10/02/16 20:46 100 30 10/02/16 20:00 30 10/02/16 20:00 102 10/02/16 20:00 100.5 102 20 108/54 99 10/02/16 18:00 112 10/02/16 17:00 101.6 10/02/16 16:21 100 30 10/02/16 16:00 30 10/02/16 16:00 101.5 116 16 107/50 98 10/02/16 16:00 116 10/02/16 14:03 110 10/02/16 12:02 100.6 122 19 115/49 100 10/02/16 12:02 30 10/02/16 12:02 122 10/02/16 10/02/16 10/03/16 15:00 23:00 07:00 Intake Total 1138 ml 1539 ml 1412 ml Output Total 630.0 ml 1360 ml 1515 ml Balance 508.0 ml 179 ml -103 ml Intake IV Total 1054 ml 1135 ml 1011 ml Tube Feeding 24 ml 254 ml 401 ml Tube Irrigant 60 ml Other 60 ml 90 ml Output Urine Total 575 ml 1360 ml 1515 ml Gastric Drainage Total 50 ml Tube Feeding Residual Discard 5.0 ml # Bowel Movements 0 0 Laboratory Tests Test 10/02/16 10/03/16 03:15 05:00 White Blood Count 17.0 TH/MM3 20.2 TH/MM3 Red Blood Count 2.85 MIL/MM3 2.96 MIL/MM3 Hemoglobin 8.5 GM/DL 8.6 GM/DL Hematocrit 25.2 % 26.1 % Mean Corpuscular Volume 88.3 FL 88.1 FL Mean Corpuscular Hemoglobin 29.6 PG 29.1 PG Mean Corpuscular Hemoglobin 33.5 % 33.0 % Concent Red Cell Distribution Width 14.7 % 14.5 % Platelet Count 115 TH/MM3 132 TH/MM3 Mean Platelet Volume 8.4 FL 8.5 FL Neutrophils (%) (Auto) 86.5 % Lymphocytes (%) (Auto) 8.5 % Monocytes (%) (Auto) 4.1 % Eosinophils (%) (Auto) 0.6 % Basophils (%) (Auto) 0.3 % Neutrophils # (Auto) 17.5 TH/MM3 Lymphocytes # (Auto) 1.7 TH/MM3 Monocytes # (Auto) 0.8 TH/MM3 Eosinophils # (Auto) 0.1 TH/MM3 Basophils # (Auto) 0.1 TH/MM3 CBC Comment DIFF FINAL Differential Comment Laboratory Tests Test 10/01/16 10/01/16 10/02/16 10/02/16 14:38 20:05 03:15 12:30 Sodium Level 154 MEQ/L 154 MEQ/L 157 MEQ/L 157 MEQ/L Serum Osmolality 328 MOSM/KG 332 MOSM/KG 334 MOSM/KG 335 MOSM/KG Lactic Acid Level 0.8 mmol/L Total Creatine Kinase 1064 U/L Creatine Kinase MB 12.7 NG/ML Creatine Kinase MB % 1.2 % Free Thyroxine 1.07 NG/DL Free Triiodothyronine (T3) LESS THAN 0.50 pg/dL PG/ML Potassium Level 4.0 MEQ/L Chloride Level 124 MEQ/L Carbon Dioxide Level 25.6 MEQ/L Anion Gap 7 MEQ/L Blood Urea Nitrogen 23 MG/DL Creatinine 0.82 MG/DL Estimat Glomerular Filtration 114 ML/MIN Rate Random Glucose 152 MG/DL Calcium Level 8.1 MG/DL Test 10/02/16 10/03/16 19:35 05:00 Sodium Level 156 MEQ/L 155 MEQ/L Serum Osmolality 329 MOSM/KG Potassium Level 4.1 MEQ/L Chloride Level 120 MEQ/L Carbon Dioxide Level 28.9 MEQ/L Anion Gap 6 MEQ/L Blood Urea Nitrogen 20 MG/DL Creatinine 0.81 MG/DL Estimat Glomerular Filtration 115 ML/MIN Rate Random Glucose 197 MG/DL Calcium Level 8.6 MG/DL Microbiology Date/Time Procedure Status Source Growth 09/30/16 15:00 Aerobic Blood Culture - Final Complete Blood Peripheral Staphylococcus Aureus 09/30/16 15:00 Anaerobic Blood Culture - Final Complete Staphylococcus Aureus 09/30/16 15:05 Aerobic Blood Culture - Final Complete Blood Peripheral Staphylococcus Aureus 09/30/16 15:05 Anaerobic Blood Culture - Final Complete Staphylococcus Aureus 09/30/16 20:11 Aerobic Blood Culture - Final Resulted Blood Line Staphylococcus Aureus 09/30/16 20:11 Anaerobic Blood Culture - Preliminary Resulted Blood Line NO GROWTH IN 3 DAYS 09/30/16 22:50 Gram Stain - Final Complete Sputum Endotracheal 09/30/16 22:50 Sputum Culture - Final Complete Staphylococcus Aureus 10/02/16 12:27 Aerobic Blood Culture - Preliminary Resulted Blood Peripheral Gram Positive Cocci 10/02/16 12:27 Anaerobic Blood Culture - Preliminary Resulted Blood Peripheral NO GROWTH IN 1 DAY 10/03/16 09:07 Aerobic Blood Culture Received Blood Peripheral Pending 10/03/16 09:07 Anaerobic Blood Culture Received Blood Peripheral Pending 10/03/16 09:11 Aerobic Blood Culture Received Blood Peripheral Pending 10/03/16 09:11 Anaerobic Blood Culture Received Blood Peripheral Pending Microbiology Date/Time Procedure Status Source Growth 09/30/16 15:00 Aerobic Blood Culture - Preliminary Resulted Blood Peripheral Staphylococcus Aureus 09/30/16 15:00 Anaerobic Blood Culture - Preliminary Resulted Gram Positive Cocci 09/30/16 15:05 Aerobic Blood Culture - Preliminary Resulted Blood Peripheral Gram Positive Cocci 09/30/16 15:05 Anaerobic Blood Culture - Preliminary Resulted Gram Positive Cocci 09/30/16 20:11 Aerobic Blood Culture - Preliminary Resulted Blood Line Gram Positive Cocci 09/30/16 20:11 Anaerobic Blood Culture - Preliminary Resulted Blood Line NO GROWTH IN 2 DAYS 09/30/16 22:50 Gram Stain - Final Complete Sputum Endotracheal 09/30/16 22:50 Sputum Culture - Final Complete Staphylococcus Aureus IMAGING: Head CT 10/03/16 0945 Signed Impressions: Service Date/Time: Monday, October 03, 2016 09:51 - CONCLUSION: 1. Multiple foci of low attenuation seen within the cerebral and cerebellar hemispheres consistent with evolving infarcts. Mykel Cantu MD Chest X-Ray 10/01/16 0000 Signed Impressions: Service Date/Time: Saturday, October 01, 2016 05:10 - CONCLUSION: Slight worsening bilateral perihilar infiltrates. KJerson Basilio MD Brain MRI 09/30/16 1659 Signed Impressions: Service Date/Time: Friday, September 30, 2016 17:42 - CONCLUSION: Numerous bilateral cerebral and cerebellar acute or subacute infarcts that are most likely embolic. Please see above. No mass or evidence of abscess. 4 mm of leftward midline shift. Small subarachnoid blood. Michael Freitas MD Renal Ultrasound 09/30/16 0000 Signed Impressions: Service Date/Time: Friday, September 30, 2016 18:45 - CONCLUSION: Ultrasound appearance of the kidneys within normal limits. Jerez catheter in the urinary bladder. Nonspecific splenomegaly incidentally noted. Michael Freitas MD Head Magnetic Resonance Angiography 09/30/16 0000 Signed Impressions: Service Date/Time: Friday, September 30, 2016 17:42 - CONCLUSION: No occlusion, aneurysm or other acute intracranial vascular abnormality demonstrated. Michael Freitas MD PHYSICAL EXAMINATION GENERAL: Patient is unresponsive. HEENT: No icterus. Positive conjunctival erythematous lesions at the lower eyelids. Oropharynx: dry mucosa. NECK: No palpable adenopathy. No swelling. LUNGS: Basilar rhonchi same. HEART: 3/6 systolic murmur at the left sternal border. ABDOMEN: Bowel sounds are present, soft, flat, nontender. EXTREMITIES: No clubbing or cyanosis or edema. Embolic purpuric lesions at the plantar aspect of the great toe on the left and the second toe on the left and also the great toe on the right and several pinpoint purpuric lesions at the base of the foot beyond the toe plantar aspect. SKIN: Bright red erythematous confluent rash at both feet is now fading multiple punctate areas fading. There is peeled skin at the plantar aspect of both feet which is dried. Less erythema at the arm both left and right and punctate erythematous lesion at the elbow on the right hand. There is no erythema at the chest, trunk, neck or face. The lower extremities have no edema. IMPRESSION 1. Septic shock due to Staph aureus 2. Acute endocarditis. [place] aortic valve. Staph aureus. 3. Acute respiratory failure. 4. Bilateral lung infiltrates, probably secondary to septic emboli./ PNA Staph aureus. 5. 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 6. History of IV drug abuse. Unknown current use status. 7. Antibiotic allergies. The patient reportedly is allergic to penicillin and sulfa. Confirmed with his mom who reported to me that he has been able to tolerate Amoxicillin. 8. Recent drug rash. It is not clear what antibiotic the patient received prior to development of the rash and this is yet to be definitively confirmed. RECOMMENDATIONS: 1. Continue Vancomycin. 2. Continue Ceftriaxone. 3. Give a challenge dose of Oxacillin. If he tolerates it would switch to Oxacillin IV. 4. Follow Repeat blood culture. 5. Monitor temps. 6. Monitor clinical status. Nemesio Jackson MD October 03, 2016 12:01
[2016-10-03] MEDS ORDERED: OXACILLIN IV ONE (13:00)
[2016-10-03] MEDS ORDERED: SODIUM CHLORIDE 0.9% IV ONE (13:00)
--- NOTE | 2016-10-03 14:08 | PD.CONS ---
Consult Service Palliative Care Consult Requested By Dr. Dominguez Primary Care Physician Unknown Reason for Consultation a. To assist with evaluation and management of symptoms including:dyspnea, encephalopathy b. To assist medical decision maker(s) with: better understanding of current medical conditions; weighing benefits/burdens of medical treatment options; making medical treatment decisions. (Sandy Liu) HPI History of Present Illness This 26-year-old male presented via EMS to the ED on 09/30/16 for altered mental status. He apparently been last seen normal by his landlord 2 days prior. Patient apparently presented to the ED 2 days prior for diagnosis of allergic reaction, at that time reporting low-grade fever and congestion. He at that time reported being seen 10 days prior by another physician and had been prescribed antibiotics for a fever. He then developed a red rash and peeling on his hands and feet, complains of generalized weakness and lightheadedness at that presentation. At that time he was prescribed prednisone and to follow-up with local provider. On day of presentation landlord found patient altered and notified EMS. Patient lethargic at presentation and unable to provide additional information. ED record notes family members were called, patient reported to have a rash on his hands and feet for the past 2 weeks and had been seen by a local physician. Family also reporting patient with a history of substance abuse, recently in rehabilitation, last rehabilitation a year ago. * ED course: Patient obtunded at arrival. Lactic acid 3.7, troponin 11.9, alkaline phosphatase 175 area total CK 372. BUN 54, creatinine 1.69, GFR 49. Glucose 116. Salicylate and acetaminophen levels normal. Urine drug screen positive for opiates, amphetamine. Alcohol negative. He was intubated sedated with fentanyl and Versed and propofol. Hypotensive, Receiving IV fluid bolus. Started on Rocephin, vancomycin.? PCN allergyno reaction to Rocephin in the ED. CXR with no acute process identified.Head CT= significant areas of infarction in the right frontal, temporal, and cerebellar regions as well as a small area of subarachnoid hemorrhage in the superior right parietal region. Patient has early 3 mm of midline shift as well as effacement on the right. He was admitted for further evaluation and management of sepsis, respiratory failure, altered mental status, elevated troponin. Critical care consulted. * Critical care notes bedside ultrasound performed demonstrating "hyperdynamic left ventricular function and what appears to be aortic valve vegetations and I measured to be approximally 0.9 x 8.8 cm. This is associated with what appears to be severe aortic regurgitation. There is no pericardial effusion. Right ventricular function is preserved." Formal echocardiogram ordered/pending. ID , neurosurgery consulted. Cultures pending. * Infectious disease: Initial cultures sputum :gram-positive cocci pairs and clusters, blood culture gram-positive cocci. CXR worsening. Patient continued on vancomycin, Rocephin, following cultures. * Neurosurgery: Patient with multiple acute septic CVAs, cerebral edema, small subarachnoid hemorrhage, midline shift, metabolic encephalopathy. Follow-up CT , repeat CT for any changes in neuro status. Continue 3% saline, keep sodium elevated * EEG 10/01-unremarkable recording. Mild diffuse theta slowing. Possible sleep activity, spindle coma could be considered. No focal abnormalities no seizure activity. * 10/01-requiring norepinephrine drip, localizing to pain. Repeat CT head with 4 mm midline shift. Echo confirmed significant aortic valve vegetations moderate aortic insufficiency. * 10/02 intermittently following commands right upper, localizing left upper, bilateral lowers. Off pressors. Cultures + staph. * 10/03 some tachycardia overnight. Not following commands. Febrile, MAXIMUM TEMPERATURE 101.6. Off vasopressors. WBC trending up 15-->17--> 20.2. H&H slowly trending down 8.6/26.1. Platelet 132. Sodium 155. Repeat blood cultures obtained/pending. ID discussed allergies with patient mother who reported allergic to penicillin as a teenager but has tolerated amoxicillin. Continue on vancomycin, this Rocephin, add challenge dose of oxacillin, monitor for tolerance. Palliative care consulted to assist family with support, clarification of goals of treatment. Pt seen in room, initially no family present. resident care technician in , placing EEG electrodes. Pt w no eye opening, does become restless when touching his head. Not following commands for me, seen moving rt hand spontaneously, lower extremities. No movement Left upper. On fentanyl 100mcgs hr, diprivan 15 mcgs/kg /min. + on levophed 1mcg/min. ADDITIONAL MEDS / medical HX PROVIDED BY FAMILY TODAY : * EKG, lower spine x-rays per Dr. Prather 07/09/16 * 09/07/16 RX ibuprofen TO replace meloxicam for joint pain, + Adderall 30 mg daily ([facility]) * 09/13/16 RX omeprazole, clindamycin 150 mg 4 tablets twice a day, acyclovir 200 mg 1 by mouth 5 times a day [address] Herrera ([facility]) * 09/14/16- RX prednisone Dr. Prather, doxycycline 100 mg 1 by mouth every 12 hours; family reports diagnosed with a "viral illness 09/17" ([facility]) * 09/[address] [facility] [address] Bj Luis Tylenol 3 quantity 20, acyclovir 200 mg 1 by mouth 5 times a day 10 days Function/Cognitive Trajectory lived at home independently no functional or cognitive deficits . (Sandy Liu) Review of Systems ROS Limitations: Clinical Condition (sedated/vented, AMS unable to provide current ROS), Intubated, Altered Mental Status Constitutional: DENIES: Fever (per family ) Musculoskeletal: COMPLAINS OF: Joint pain (x few weeks per family -- starting end of August? ) Integumentary: COMPLAINS OF: Rash (x few weeks per family ) (Sandy Liu) Past Family Social History Coded Allergies: Hydrocodone (Verified Allergy, Unknown, Nausea/Vomiting, 10/04/16) Mother called Dentist to verify Sulfa (Verified Allergy, Unknown, 09/30/16) Toradol (Verified Allergy, Unknown, 09/30/16) Past Medical History Per EMR ADHD History of substance abuse, post rehabilitation Degenerative disc disease . Past Surgical History oral surgeries in past year . Reported Medications Prednisone 20 Mg Tab 40 Mg PO DAILY Take 40 mg (2 tablets) daily for 5 days Ibuprofen 600 Mg Tab 600 Mg PO Q6H PRN Meclizine (Meclizine HCl) 25 Mg Chew 25 Mg CHEW DIRECTED PRN Acyclovir 200 Mg Cap 200 Mg PO 5 TIMES A DAY Tylenol-Codeine #3 (Acetaminophen-Codeine) 300-30 mg Tab 1 Tab PO Q4H PRN . Current Medications Medications (Trade) Dose Ordered Sig/Beena Route Start Time Stop Time Status Last Admin (Rocephin Inj/NS Inj) 100 ml @ 200 mls/hr Q12H IV 10/01/16 03:00 10/03/16 02:46 Chlorhexidine Gluconate 15 ml 15 ml BID@08,20 MT 09/30/16 20:00 10/03/16 08:16 Propofol 100 ml @ 0 mls/hr TITRATE IV 09/30/16 17:45 10/03/16 11:37 (fentaNYL DRIP) 250 ml @ 0 mls/hr TITRATE IV 09/30/16 17:45 10/03/16 12:28 (NS Flush) 2 ml UNSCH PRN IV FLUSH 09/30/16 17:45 (NS Flush) 2 ml BID IV FLUSH 09/30/16 21:00 10/03/16 08:17 (Tylenol) 650 mg Q6H PRN PO 09/30/16 17:45 10/03/16 01:42 (Protonix Inj) 40 mg DAILY IV 10/01/16 09:00 10/03/16 08:18 (Tears Naturale Opth Soln) 1 drop TID EACH EYE 09/30/16 18:00 10/03/16 11:52 (Zofran Inj) 4 mg Q6H PRN IV 09/30/16 17:45 (Colace Liq) 100 mg Q12H G-TUBE 09/30/16 20:00 10/03/16 08:18 (Senna Liq) 17.6 mg Q12H PRN G-TUBE 09/30/16 17:45 Miscellaneous Information 1 Q361D XX 09/30/16 17:45 09/30/16 17:45 (Chlorhexidine 2% Cloth) 3 pack Taper DAILY@04 TOP 10/01/16 04:00 09/27/17 03:59 10/03/16 04:08 (Chlorhexidine 2% Cloth) 3 pack UNSCH PRN TOP 09/30/16 17:45 (D50w (Vial) Inj) 50 ml UNSCH PRN IV 09/30/16 18:00 (Glucagon Inj) 1 mg UNSCH PRN OTHER 09/30/16 18:00 Insulin Human Regular 1 1 Q6HR SQ 09/30/16 18:00 (Levophed Inj/NS 250 ml Inj) 254 ml @ 0 mls/hr TITRATE IV 10/01/16 04:15 10/02/16 20:18 Quetiapine Fumarate 50 mg 50 mg Q8HR PO 10/02/16 08:00 10/03/16 07:38 Lactated Ringer's 1,000 ml @ 84 mls/hr [id number] IV 10/03/16 02:15 10/03/16 02:34 (Prostaphlin Inj/ NS Inj) 100 ml @ 200 mls/hr ONCE ONCE IV 10/03/16 13:00 10/03/16 13:29 Family History history of various cancers paternal, paternal aunt with aneurysm, hx [place] maternal GF . Substance Use Tobacco: not current smoker intermittent occasional smoking since Alcohol: Per EMR review no history of alcohol use; family confirms no ETOH Prescription med abuse: history of prior pill abuse, post rehabilitation several x Illicits: prior drug /pill/marijuana abuse post rehabilitation . Psychosocial History originally from [place], lived in [place] since . HS education. Was incarcerated and then in drug rehabilitation in [facility]. 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 Has 1 sister Elizabeth (Anay) ,lives in [place], mother lives in [place]. Father (parents ) lived in [place] with support from family there. Supported by local friends, coworkers, apartment landlord. Spiritual/Cultural Factors believes in God, no particular affiliation. would want ongoing director of training support. (Sandy Liu) Living Will: Never completed Health Care Surrogate: Never completed Durable Power of Branch Employment Coordinator: Completed, but not made available (mother reports has POA, not clear if this includes medical decision making, awaiting copies of documents) Ethical and Legal Issues Patient is not able to participate in decision-making due to clinical condition. He is not . Per [place] statutes his parents would be legal decision makers, mother is serving as primary supported by his sister and father. She reports she has POA paperwork. (Sandy Liu) Physical Exam Vital Signs Date Time Temp Pulse Resp B/P Pulse Ox O2 Delivery O2 Flow Rate FiO2 10/03/16 12:00 122 10/03/16 12:00 100.5 122 14 118/53 100 10/03/16 12:00 30 10/03/16 11:37 100 30 10/03/16 10:05 100.3 10/03/16 10:05 120 10/03/16 09:30 100 100 10/03/16 08:10 100 30 10/03/16 08:00 30 10/03/16 08:00 120 10/03/16 08:00 99.9 128 16 118/59 99 10/03/16 06:00 108 10/03/16 04:23 100 30 10/03/16 04:00 30 10/03/16 04:00 99.2 100 17 118/56 100 10/03/16 04:00 100 10/03/16 02:42 16 10/03/16 02:00 120 10/03/16 00:59 100 30 10/03/16 00:00 100.6 120 14 128/60 100 10/03/16 00:00 120 10/03/16 00:00 30 10/02/16 22:00 122 10/02/16 20:46 100 30 10/02/16 20:00 30 10/02/16 20:00 102 10/02/16 20:00 100.5 102 20 108/54 99 10/02/16 18:00 112 10/02/16 17:00 101.6 10/02/16 16:21 100 30 10/02/16 16:00 30 10/02/16 16:00 101.5 116 16 107/50 98 10/02/16 16:00 116 10/02/16 14:03 110 10/02/16 10/03/16 19:00 07:00 Intake Total 2035 ml 2054 ml Output Total 1475.0 ml 2030 ml Balance 560.0 ml 24 ml Intake IV Total 1747 ml 1453 ml Tube Feeding 138 ml 541 ml Tube Irrigant 60 ml Other 150 ml Output Urine Total 1420 ml 2030 ml Gastric Drainage Total 50 ml Tube Feeding Residual Discard 5.0 ml # Bowel Movements 0 0 Exam CONSTITUTIONAL/GENERAL: This is an adequately nourished patient, mildly restless at times, otherwise restful between, on [facility] vent TUBES/LINES/DRAINS: Lt SC central line. ETT, OGT, carrera catheter SKIN: No jaundice, or lesions. + slight peeling bottom feet/Embolic purpuric lesions on LT great toe. slight erythematous confluent rash top both feet . No wounds seen anteriorly. Skin temperature appropriate. Not diaphoretic. HEAD: Atraumatic. Normocephalic. EYES: Pupils 2mm/ slight reaction to light. no eye opening. No scleral icterus. No injection or drainage. Fundi not examined. ENT: Nose without bleeding or purulent drainage. limited oropharynx exam due to ETT/OGT NECK: Trachea midline. Supple, nontender. CARDIOVASCULAR: Regular rate and rhythm without murmur. Peripheral pulses symmetric. no peripheral edema RESPIRATORY/CHEST: Symmetric, unlabored respirations on mech vent. Course air movement throughout lungs. + scattered rhonchi. breath sounds equal bilat GASTROINTESTINAL: Abdomen soft, nondistended. No palpable masses. No guarding. Bowel sounds present. GENITOURINARY: Without palpable bladder distension. Carrera catheter in place. MUSCULOSKELETAL: Extremities without clubbing, cyanosis, or edema. No joint effusion noted. No mottling or clubbing. see above skin notation LYMPHATICS: No palpable cervical or supraclavicular adenopathy. NEUROLOGICAL: sedated on mech vent.limited assess-- moves head side to side, moves RUE as resident care technician placing leads. PSYCHIATRIC: No obvious anxiety/depression-- limited assess due to condition/ sedation . (Sandy Liu) Diagnostic Tests Laboratory Laboratory Tests Test 09/30/16 09/30/16 09/30/16 09/30/16 14:53 15:00 15:05 15:15 Blood Gas Puncture Site RT Blood Gas Patient Temperature 98.6 Blood Gas HCO3 21 mmol/L (22-26) Blood Gas Base Excess -3.3 mmol/L (-2-2) Blood Gas Oxygen Saturation 98 % (90-100) Arterial Blood pH 7.38 (7.380-7.420) Arterial Blood Partial 36 mmHg (38-42) Pressure CO2 Arterial Blood Partial 215 mmHG Pressure O2 (61-120) Arterial Blood Oxygen Content 13.5 Vol % (12.0-20.0) Arterial Blood 0.7 % (0-4) Carboxyhemoglobin Arterial Blood Methemoglobin 0.5 % (0-2) Blood Gas Hemoglobin 9.4 G/DL (12.0-16.0) Oxygen Delivery Device VENTILATOR Blood Gas Ventilator Setting AC14/500/5PEEP Blood Gas Inspired Oxygen 60 % Lactic Acid Level 3.7 mmol/L (0.4-2.0) Urine Color YELLOW (YELLW/STRAW) Urine Turbidity HAZY (CLEAR) Urine pH 5.5 (5.0-8.5) Urine Specific [place] 1.014 (1.002-1.035) Urine Protein 30 mg/dL (NEG-TRACE) Urine Glucose (UA) NEG mg/dL (NEG) Urine Ketones NEG mg/dL (NEG) Urine Occult Blood SMALL (NEG) Urine Nitrite NEG (NEG) Urine Bilirubin NEG (NEG) Urine Urobilinogen LESS THAN 2.0 MG/DL (LESS THAN 2.0) Urine Leukocyte Esterase SMALL (NEG) Urine RBC 1 /hpf (0-3) Urine WBC 5 /hpf (0-5) Microscopic Urinalysis Comment CULT NOT INDICATED Urine Opiates Screen POS (NEG) Urine Barbiturates Screen NEG (NEG) Urine Amphetamines Screen POS (NEG) Urine Benzodiazepines Screen NEG (NEG) Urine Cocaine Screen NEG (NEG) Urine Cannabinoids Screen NEG (NEG) Urine Random Creatinine 86.0 MG/DL Urine Random Sodium 11 MEQ/L White Blood Count 19.7 TH/MM3 (4.0-11.0) Red Blood Count 3.33 MIL/MM3 (4.50-5.90) Hemoglobin 9.9 GM/DL (13.0-17.0) Hematocrit 29.2 % (39.0-51.0) Mean Corpuscular Volume 87.5 FL (80.0-100.0) Mean Corpuscular Hemoglobin 29.8 PG (27.0-34.0) Mean Corpuscular Hemoglobin 34.0 % Concent (32.0-36.0) Red Cell Distribution Width 13.9 % (11.6-17.2) Platelet Count 163 TH/MM3 (150-450) Mean Platelet Volume 8.3 FL (7.0-11.0) Neutrophils (%) (Auto) 87.4 % (16.0-70.0) Lymphocytes (%) (Auto) 5.1 % (9.0-44.0) Monocytes (%) (Auto) 6.4 % (0.0-8.0) Eosinophils (%) (Auto) 0.9 % (0.0-4.0) Basophils (%) (Auto) 0.2 % (0.0-2.0) Neutrophils # (Auto) 17.2 TH/MM3 (1.8-7.7) Lymphocytes # (Auto) 1.0 TH/MM3 (1.0-4.8) Monocytes # (Auto) 1.3 TH/MM3 (0-0.9) Eosinophils # (Auto) 0.2 TH/MM3 (0-0.4) Basophils # (Auto) 0.0 TH/MM3 (0-0.2) CBC Comment AUTO DIFF Differential Comment AUTO DIFF CONFIRMED Platelet Estimate NORMAL (NORMAL) Platelet Morphology Comment NORMAL (NORMAL) Red Cell Morphology Comment NORMAL (NORMAL) Prothrombin Time 13.6 SEC (9.8-11.6) Prothromb Time International 1.2 RATIO Ratio Activated Partial 28.2 SEC Thromboplast Time (24.3-30.1) Sodium Level 147 MEQ/L (136-145) Potassium Level 4.7 MEQ/L (3.5-5.1) Chloride Level 110 MEQ/L (98-107) Carbon Dioxide Level 26.6 MEQ/L (21.0-32.0) Anion Gap 10 MEQ/L (5-15) Blood Urea Nitrogen 54 MG/DL (7-18) Creatinine 1.69 MG/DL (0.60-1.30) Estimat Glomerular Filtration 49 ML/MIN (>89) Rate Random Glucose 160 MG/DL (74-106) Calcium Level 8.8 MG/DL (8.5-10.1) Phosphorus Level 4.0 MG/DL (2.5-4.9) Magnesium Level 2.7 MG/DL (1.5-2.5) Total Bilirubin 0.8 MG/DL (0.2-1.0) Aspartate Amino Transf 91 U/L (15-37) (AST/SGOT) Alanine Aminotransferase 72 U/L (12-78) (ALT/SGPT) Alkaline Phosphatase 175 U/L (45-117) Total Creatine Kinase 372 U/L (39-308) Creatine Kinase MB 7.6 NG/ML (0.5-3.6) Creatine Kinase MB % 2.0 % (0.0-4.0) Troponin I 11.90 NG/ML (0.02-0.05) Total Protein 7.3 GM/DL (6.4-8.2) Albumin 2.4 GM/DL (3.4-5.0) Thyroid Stimulating Hormone 0.160 uIU/ML 3rd Gen (0.358-3.740) Salicylates Level LESS THAN 1.7 MG/DL (2.8-20.0) Acetaminophen Level LESS THAN 2.0 MCG/ML (10.0-30.0) Ethyl Alcohol Level LESS THAN 3 MG/DL (0-5) Test 09/30/16 09/30/16 09/30/16 10/01/16 18:00 20:11 20:53 03:08 Nasal Screen MRSA (PCR) MRSA NOT DETECTED (NOT DETECT) Fibrinogen 492 mg/dL (181-393) Sodium Level 148 MEQ/L 152 MEQ/L (136-145) (136-145) Serum Osmolality 320 MOSM/KG 322 MOSM/KG (275-295) (275-295) Lactic Acid Level 1.1 mmol/L 0.8 mmol/L (0.4-2.0) (0.4-2.0) Troponin I 11.60 NG/ML 10.30 NG/ML (0.02-0.05) (0.02-0.05) Lipase 37 U/L (73-393) Hepatitis A IgM Antibody NEGATIVE (NEGATIVE) Hepatitis B Surface Antigen NEGATIVE (NEGATIVE) Hepatitis B Core IgM Antibody NEGATIVE (NEGATIVE) Hepatitis C Antibody NEGATIVE (NEGATIVE) HIV (1&2) Antibody NEGATIVE (NEGATIVE) Test 10/01/16 10/01/16 10/01/16 10/01/16 04:12 04:57 09:00 14:38 White Blood Count 15.9 TH/MM3 (4.0-11.0) Red Blood Count 2.99 MIL/MM3 (4.50-5.90) Hemoglobin 8.8 GM/DL (13.0-17.0) Hematocrit 26.3 % (39.0-51.0) Mean Corpuscular Volume 88.0 FL (80.0-100.0) Mean Corpuscular Hemoglobin 29.3 PG (27.0-34.0) Mean Corpuscular Hemoglobin 33.3 % Concent (32.0-36.0) Red Cell Distribution Width 14.0 % (11.6-17.2) Platelet Count 109 TH/MM3 (150-450) Mean Platelet Volume 8.4 FL (7.0-11.0) Neutrophils (%) (Auto) % (16.0-70.0) Lymphocytes (%) (Auto) % (9.0-44.0) Monocytes (%) (Auto) % (0.0-8.0) Eosinophils (%) (Auto) % (0.0-4.0) Basophils (%) (Auto) % (0.0-2.0) Neutrophils # (Auto) TH/MM3 (1.8-7.7) Lymphocytes # (Auto) TH/MM3 (1.0-4.8) Monocytes # (Auto) TH/MM3 (0-0.9) Eosinophils # (Auto) TH/MM3 (0-0.4) Basophils # (Auto) TH/MM3 (0-0.2) CBC Comment AUTO DIFF Differential Total Cells 100 Counted Neutrophils % (Manual) 75 % (16-70) Band Neutrophils % 10 % (0-6) Lymphocytes % 4 % (9-44) Monocytes % 9 % (0-8) Neutrophils # (Manual) 13.8 TH/MM3 (1.8-7.7) Metamyelocytes 1 % (0-1) Myelocytes 1 % (0-0) Differential Comment FINAL DIFF MANUAL Toxic Vacuolation PRESENT (NONE SEEN) Dohle Bodies PRESENT (NONE SEEN) Platelet Estimate LOW (NORMAL) Platelet Morphology Comment NORMAL (NORMAL) Red Cell Morphology Comment NORMAL (NORMAL) Prothrombin Time 13.9 SEC (9.8-11.6) Prothromb Time International 1.2 RATIO Ratio Activated Partial 30.0 SEC Thromboplast Time (24.3-30.1) Sodium Level 151 MEQ/L 152 MEQ/L 154 MEQ/L (136-145) (136-145) (136-145) Potassium Level 3.7 MEQ/L (3.5-5.1) Chloride Level 119 MEQ/L (98-107) Carbon Dioxide Level 24.4 MEQ/L (21.0-32.0) Anion Gap 8 MEQ/L (5-15) Blood Urea Nitrogen 32 MG/DL (7-18) Creatinine 0.95 MG/DL (0.60-1.30) Estimat Glomerular Filtration 96 ML/MIN (>89) Rate Random Glucose 133 MG/DL (74-106) Calcium Level 8.2 MG/DL (8.5-10.1) Phosphorus Level 3.0 MG/DL (2.5-4.9) Magnesium Level 2.6 MG/DL (1.5-2.5) Total Bilirubin 0.6 MG/DL (0.2-1.0) Aspartate Amino Transf 80 U/L (15-37) (AST/SGOT) Alanine Aminotransferase 59 U/L (12-78) (ALT/SGPT) Alkaline Phosphatase 137 U/L (45-117) Ammonia LESS THAN 10 MCMOL/L (11-32) Total Protein 6.2 GM/DL (6.4-8.2) Albumin 1.9 GM/DL (3.4-5.0) Random Cortisol 32.4 MCG/DL Blood Gas Puncture Site ART LINE Blood Gas Patient Temperature 98.6 Blood Gas HCO3 21 mmol/L (22-26) Blood Gas Base Excess -3.3 mmol/L (-2-2) Blood Gas Oxygen Saturation 97 % (90-100) Arterial Blood pH 7.37 (7.380-7.420) Arterial Blood Partial 37 mmHg (38-42) Pressure CO2 Arterial Blood Partial 163 mmHg Pressure O2 (61-120) Arterial Blood Oxygen Content 16.3 Vol % (12.0-20.0) Arterial Blood 0.7 % (0-4) Carboxyhemoglobin Arterial Blood Methemoglobin 1.1 % (0-2) Blood Gas Hemoglobin 11.7 G/DL (12.0-16.0) Oxygen Delivery Device VENTILATOR Blood Gas Ventilator Setting AC14/500/PEEP5 Blood Gas Inspired Oxygen 40 % Serum Osmolality 327 MOSM/KG 328 MOSM/KG (275-295) (275-295) Lactic Acid Level 0.9 mmol/L 0.8 mmol/L (0.4-2.0) (0.4-2.0) Total Creatine Kinase 1064 U/L (39-308) Creatine Kinase MB 12.7 NG/ML (0.5-3.6) Creatine Kinase MB % 1.2 % (0.0-4.0) Free Thyroxine 1.07 NG/DL (0.76-1.46) Free Triiodothyronine (T3) LESS THAN 0.50 pg/dL PG/ML (2.18-3.98) Test 10/01/16 10/02/16 10/02/16 10/02/16 20:05 03:15 05:55 09:21 Sodium Level 154 MEQ/L 157 MEQ/L (136-145) (136-145) Serum Osmolality 332 MOSM/KG 334 MOSM/KG (275-295) (275-295) White Blood Count 17.0 TH/MM3 (4.0-11.0) Red Blood Count 2.85 MIL/MM3 (4.50-5.90) Hemoglobin 8.5 GM/DL (13.0-17.0) Hematocrit 25.2 % (39.0-51.0) Mean Corpuscular Volume 88.3 FL (80.0-100.0) Mean Corpuscular Hemoglobin 29.6 PG (27.0-34.0) Mean Corpuscular Hemoglobin 33.5 % Concent (32.0-36.0) Red Cell Distribution Width 14.7 % (11.6-17.2) Platelet Count 115 TH/MM3 (150-450) Mean Platelet Volume 8.4 FL (7.0-11.0) Potassium Level 4.0 MEQ/L (3.5-5.1) Chloride Level 124 MEQ/L (98-107) Carbon Dioxide Level 25.6 MEQ/L (21.0-32.0) Anion Gap 7 MEQ/L (5-15) Blood Urea Nitrogen 23 MG/DL (7-18) Creatinine 0.82 MG/DL (0.60-1.30) Estimat Glomerular Filtration 114 ML/MIN Rate (>89) Random Glucose 152 MG/DL (74-106) Calcium Level 8.1 MG/DL (8.5-10.1) Vancomycin Level Trough 8.8 MCG/ML (5.0-10.0) Blood Gas Puncture Site ART LINE Blood Gas Patient Temperature 98.6 Blood Gas HCO3 23 mmol/L (22-26) Blood Gas Base Excess -1.0 mmol/L (-2-2) Blood Gas Oxygen Saturation 97 % (90-100) Arterial Blood pH 7.38 (7.380-7.420) Arterial Blood Partial 40 mmHg (38-42) Pressure CO2 Arterial Blood Partial 176 mmHg Pressure O2 (61-120) Arterial Blood Oxygen Content 11.9 Vol % (12.0-20.0) Arterial Blood 0.8 % (0-4) Carboxyhemoglobin Arterial Blood Methemoglobin 1.0 % (0-2) Blood Gas Hemoglobin 8.4 G/DL (12.0-16.0) Oxygen Delivery Device VENTILATOR Blood Gas Ventilator Setting AC/500/14/5PEEP Blood Gas Inspired Oxygen 40 % Urine Eosinophils RARE /HPF (NONE SEEN) Test 10/02/16 10/02/16 10/03/16 12:30 19:35 05:00 Sodium Level 157 MEQ/L 156 MEQ/L 155 MEQ/L (136-145) (136-145) (136-145) Serum Osmolality 335 MOSM/KG 329 MOSM/KG (275-295) (275-295) White Blood Count 20.2 TH/MM3 (4.0-11.0) Red Blood Count 2.96 MIL/MM3 (4.50-5.90) Hemoglobin 8.6 GM/DL (13.0-17.0) Hematocrit 26.1 % (39.0-51.0) Mean Corpuscular Volume 88.1 FL (80.0-100.0) Mean Corpuscular Hemoglobin 29.1 PG (27.0-34.0) Mean Corpuscular Hemoglobin 33.0 % Concent (32.0-36.0) Red Cell Distribution Width 14.5 % (11.6-17.2) Platelet Count 132 TH/MM3 (150-450) Mean Platelet Volume 8.5 FL (7.0-11.0) Neutrophils (%) (Auto) 86.5 % (16.0-70.0) Lymphocytes (%) (Auto) 8.5 % (9.0-44.0) Monocytes (%) (Auto) 4.1 % (0.0-8.0) Eosinophils (%) (Auto) 0.6 % (0.0-4.0) Basophils (%) (Auto) 0.3 % (0.0-2.0) Neutrophils # (Auto) 17.5 TH/MM3 (1.8-7.7) Lymphocytes # (Auto) 1.7 TH/MM3 (1.0-4.8) Monocytes # (Auto) 0.8 TH/MM3 (0-0.9) Eosinophils # (Auto) 0.1 TH/MM3 (0-0.4) Basophils # (Auto) 0.1 TH/MM3 (0-0.2) CBC Comment DIFF FINAL Differential Comment Potassium Level 4.1 MEQ/L (3.5-5.1) Chloride Level 120 MEQ/L (98-107) Carbon Dioxide Level 28.9 MEQ/L (21.0-32.0) Anion Gap 6 MEQ/L (5-15) Blood Urea Nitrogen 20 MG/DL (7-18) Creatinine 0.81 MG/DL (0.60-1.30) Estimat Glomerular Filtration 115 ML/MIN Rate (>89) Random Glucose 197 MG/DL (74-106) Calcium Level 8.6 MG/DL (8.5-10.1) (Sandy Liu) Result Diagram: 10/03/16 0500 10/03/16 0500 Microbiology Microbiology Date/Time Procedure Status Source Growth 09/30/16 15:00 Aerobic Blood Culture - Final Complete Blood Peripheral Staphylococcus Aureus 09/30/16 15:00 Anaerobic Blood Culture - Final Complete Staphylococcus Aureus 09/30/16 15:05 Aerobic Blood Culture - Final Complete Blood Peripheral Staphylococcus Aureus 09/30/16 15:05 Anaerobic Blood Culture - Final Complete Staphylococcus Aureus 09/30/16 20:11 Aerobic Blood Culture - Final Resulted Blood Line Staphylococcus Aureus 09/30/16 20:11 Anaerobic Blood Culture - Preliminary Resulted Blood Line NO GROWTH IN 3 DAYS 09/30/16 22:50 Gram Stain - Final Complete Sputum Endotracheal 09/30/16 22:50 Sputum Culture - Final Complete Staphylococcus Aureus 10/02/16 12:27 Aerobic Blood Culture - Preliminary Resulted Blood Peripheral Gram Positive Cocci 10/02/16 12:27 Anaerobic Blood Culture - Preliminary Resulted Blood Peripheral NO GROWTH IN 1 DAY 10/03/16 09:07 Aerobic Blood Culture Received Blood Peripheral Pending 10/03/16 09:07 Anaerobic Blood Culture Received Blood Peripheral Pending 10/03/16 09:11 Aerobic Blood Culture Received Blood Peripheral Pending 10/03/16 09:11 Anaerobic Blood Culture Received Blood Peripheral Pending Imaging Last Impressions Head CT 10/03/16 0945 Signed Impressions: Service Date/Time: Monday, October 03, 2016 09:51 - CONCLUSION: 1. Multiple foci of low attenuation seen within the cerebral and cerebellar hemispheres consistent with evolving infarcts. Mykel Cantu MD Chest X-Ray 10/01/16 0000 Signed Impressions: Service Date/Time: Saturday, October 01, 2016 05:10 - CONCLUSION: Slight worsening bilateral perihilar infiltrates. 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 Please see above. No mass or evidence of abscess. 4 mm of leftward midline shift. Small subarachnoid blood. Michael Freitas MD Renal Ultrasound 09/30/16 0000 Signed Impressions: Service Date/Time: Friday, September 30, 2016 18:45 - CONCLUSION: Ultrasound appearance of the kidneys within normal limits. Carrera catheter in the urinary bladder. Nonspecific splenomegaly incidentally noted. Michael Freitas MD Head Magnetic Resonance Angiography 09/30/16 0000 Signed Impressions: Service Date/Time: Friday, September 30, 2016 17:42 - CONCLUSION: No occlusion, aneurysm or other acute intracranial vascular abnormality demonstrated. Michael Freitas MD Procedures 09/30left subclavian central line, left radial arterial line (Sandy Liu) Patient/Family Conference Present at Family Conference: Mother, father, sister Family Conference Time (mins): 45 (minutes) Family Conference Location: Consult Room Issues Discussed: Met at length with family. Discussion included: * Palliative care role, purpose, approach * Additional medical, psychosocial, and spiritual history * Patients general health, functional status, in the months leading up to the current hospitalization * Patient/family understanding of the current medical problems; current treatments in place--review of likely trajectory patient expected to experience prolonged ICU course and likely prolonged hospitalization not clear helpful his cognitive or functional recovery will be. He remains high risk for multiple complications. Additionally review possibility for future interventions and procedures including tracheostomy, PEG tube etc. * Patient/family understanding of prognosis * Patients goals of care as best understood from advance directives and/or conversations and/or values * Current medical treatment options and benefits/burdens of those options-as per above * Legal decision maker per [place] statutes; mother/parents. Family indicates father, who is present has some disabilities and requires a fair amount of care and support himself so is unable to fully participate. Mother includes father and daughter, daughter,( patient's sister )helps her process information * Questions answered to the best of my ability * Palliative care contact information provided Patient sister appears to have a reasonable understanding of conditions, prognosis. She relates that she was critically ill with sepsis in the past few years herself requiring a prolonged ICU course and life support at the time she had a poor prognosis. She also relates that she understands her brother has multiple conditions which she did not have an understands his guarded prognosis. Patient mother appears to have a very simple understanding of conditions and prognosis. At this time goals remain aggressive. Family indicates that recently the patient had been doing fairly well although he had had ongoing joint pains and the rash/foot swelling in the past few weeks to month that he had been trying to get treatment for. Patient's mother is hoping for a miracle and wants to continue whatever measures available to help patient recover. They are open to ongoing to conversations as clinical course evolves. . (Sandy Liu) Assessment and Plan Disease Oriented Problem List: (1) Intracranial hemorrhage (2) Sepsis (3) Elevated troponin (4) Subarachnoid hemorrhage (5) Cerebral edema (6) Metabolic encephalopathy (7) Acute respiratory failure with hypoxia (8) Septic shock due to Staphylococcus aureus (9) Rash and nonspecific skin eruption (10) Substance abuse Symptom Scale: (1) Dyspnea (2) Encephalopathy (3) Agitation Pertinent Non-Medical Issues Psychosocial:originally from [place], lived in [place] since . education. Was incarcerated and then in drug rehabilitation in [facility]. 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 Father (parents ) lived in [place] with support from family there. Supported by local friends, coworkers, apartment landlord. Spiritual:believes in God, no particular affiliation. would want ongoing director of training support. Legal: Patient is not able to participate in decision-making due to clinical condition. He is not . Per [place] statutes his parents would be legal decision makers, mother is serving as primary supported by his sister and father. She reports she has POA paperwork. Ethical issues impacting care: Important Contacts mother Felicita Roberts [phone] sister Elizabeth Raslauramichelle [phone] father Pradeep Rios [phone] . 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 He is currently in multiorgan failure, critically ill. Possible he can recover with prolonged resuscitation , prolonged ICU course. Remains very high risk for further complications and setbacks though possible he can survive this initial injury/ illness. Code Status: Full Code Plan * Legal decision maker: Patient is not able to participate in decision-making due to clinical condition. He is not . Per [place] statutes his parents would be legal decision makers, mother is serving as primary supported by his sister and father. She reports she has POA paperwork. * Goals: Met w pt mother, father, sister at length. Patient sister appears to have a reasonable understanding of conditions, prognosis. Patient mother appears to have a very simple understanding of conditions and prognosis. Sister relates that she was critically ill with sepsis in the past few years herself requiring a prolonged ICU course and life support at the time she had a poor prognosis. She also relates that she understands her brother has multiple conditions which she did not have an understands his guarded prognosis. At this time goals are aggressive. Family indicates that recently the patient had been doing fairly well although he had had ongoing joint pains and the rash/ foot swelling in the past few weeks to month that he had been trying to get treatment for. Patient's mother is hoping for a miracle and wants to continue whatever measures available to help patient recover. They are open to ongoing to conversations as clinical course evolves. * CODE STATUS: full * SYMPTOMS: --dyspnea- intubated for AMS. remains on mech vent -- agitation- hx substance abuse; hx ADD, on adderall. currently sedated with diprivan, fentanyl, some periods of restlessness breakthrough -- encephalopathy- multifactorial-- +sepsis, embolic CVA, hx substance abuse , EEG neg seizure * Palliative care will continue to follow during hospital course as condition evolves, to assist patient/decision-maker with understanding of medical conditions, weighing benefits/burdens of treatment options, for clarification of goals of treatment. Additionally will assist with any symptoms of palliative concern (Sandy Liu) Time Spent Total Floor Time (mins): 60 Face to Face Time (mins): 45 >50% Counseling/Coord of Care: Yes (d/w woods superintendent, rn) (Sandy Liu) Thank you for the opportunity to participate in the care of Mr. Rios. (Sandy Liu) Attestation To help prompt me to consider important information that might be impacting today's encounter and assessment, information from prior notes written by myself or my colleagues may have been "brought forward" into today's note. My signature on this note, however, is an attestation that I personally performed the exam, history, and/or decision-making noted today, and, unless otherwise indicated, the interactions with patient, family, and staff as well as the review of records all occurred today. I also attest that the listed assessment and stated plan reflect my best clinical judgment today based on the combination of historical information, prior notes, and today's exam/ interactions. When time spent is documented, it refers only to time spent today by the signer, or if indicated, combined time spent today by collaborating physician/nurse practitioner. (Sandy Liu) Collaborating MD Comments . Chart reviewed. Case discussed with palliative care RODENT EXTERMINATOR. Above RODENT EXTERMINATOR note reviewed and I concur. . (Foster Marina MD) Sandy Liu October 03, 2016 14:08 Foster Marina MD October 09, 2016 16:33
--- NOTE | 2016-10-03 17:12 | HHI.NSPN ---
(Elliott Fragoso Zhou KELLEYP) Note Status Status: Progress Note (Elliott Fragoso) Interval History Interval History 10/01: The HPI is obtained from a review of the EMR due to the patient's altered mental status and intubation. This is a 26-year-old male who was found by his landlord on with altered mental status and called EMS. Upon arrival of EMS the patient had a GCS of 10. In the emergency department the patient was hypotensive and tachycardiac. He was emergently intubated for airway protection. His CT brain demonstrated significant areas of infarction to the right frontal, temporal and cerebellar regions as well as a small subarachnoid haemorrhage to the superior right parietal region. There was a 3 mm midline shift as well as effacement on the right. The patient's laboratory data is significant for white blood cell count of 19,000, haemoglobin of 9.9, lactate of 3.7, creatinine 1.69, CK 372, troponin of 11.9. His urine drug screen is positive for opiates and amphetamines. He was subsequently admitted to the [facility] for further management and monitoring. Per EMS and ED reports, patient was seen approximately 10 days prior to admission by an unknown physician in the clinic and given antibiotic for fever. After taking the antibiotic, the patient had a new red rash on his hands and healing on his feet. He he was seen in the emergency department 2 days prior to admission for low-grade fever and congestion, generalized weakness, lightheadedness. At that time she was given prescription for prednisone 40 mg daily for 5 days. The patient's landlord apparently found the patient today with altered mental status and called EMS. When EMS arrived, his GCS was 10. There is reports that the patient has a history of substance abuse and was recently in rehabilitation. The patient's roommate confirmed to the [employer] Lieutenant that the patient had recently been in rehabilitation due to a history of substance abuse. The roommate did not think he was doing any illicit drugs recently. 10/02: The patient remains intubated & sedated. He withdraws to painful stimuli to the extremities. 10/03: The patient is sedated with propofol & fentanyl. Nursing reports that he does move the RUE mostly but will move the BLE when the sedation is off. Nursing reported no movement of the LUE. When EEG was at the bedside with the sedation down the patient became quite agitated and was kicking out. (Elliott Fragoso) Labs, Micro, & Vital Signs Results Allergies Coded Allergies Type Severity Reaction Last Updated Verified Sulfa Allergy Unknown 09/30/16 Yes Toradol Allergy Unknown 09/30/16 Yes Recent Impressions Head CT 10/03/16 0945 Signed Impressions: Service Date/Time: Monday, October 03, 2016 09:51 - CONCLUSION: 1. Multiple foci of low attenuation seen within the cerebral and cerebellar hemispheres consistent with evolving infarcts. Mykel Cantu MD Head CT 10/02/16 0000 Signed Impressions: Service Date/Time: Sunday, October 02, 2016 10:19 - CONCLUSION: 1. Stable multifocal areas of low density bilaterally, as above. No acute blood products are identified. Overall, no significant change has occurred since yesterday's exam. 2. Persistent but minimal right to left midline shift currently measuring 3 mm. Michael Escalera MD Head CT 10/01/16 0000 Signed Impressions: Service Date/Time: Saturday, October 01, 2016 11:00 - CONCLUSION: 1. Multifocal areas of low-density in the cerebrum and cerebellum, as above. These areas are now lower in attenuation and more well-defined typical of evolving edema. 2. There is approximately 4 mm of [id number] midline shift, increased from 2 mm on yesterday's examination. Michael Escalera MD Chest X-Ray 10/01/16 0000 Signed Impressions: Service Date/Time: Saturday, October 01, 2016 05:10 - CONCLUSION: Slight worsening bilateral perihilar infiltrates. Angela Basilio MD /////// 06:00 18:00 06:00 18:00 06:00 18:00 Intake Total 2198 ml 1572 ml 3197 ml 1845 ml 1910 ml 1892 ml Output Total 3175 ml 1850 ml 1595 ml 1540.0 ml 1815 ml 2260 ml Balance -977 ml -278 ml 1602 ml 305.0 ml 95 ml -368 ml Intake IV Total 2198 ml 1572 ml 3157 ml 1605 ml 1355 ml 1136 ml Tube Feeding 90 ml 495 ml 546 ml Tube Irrigant 60 ml Other 40 ml 150 ml 210 ml Output Urine Total 2875 ml 1800 ml 1595 ml 1485 ml 1815 ml 2260 ml Gastric Drainage Total 300 ml 50 ml 0 ml 50 ml Tube Feeding Residual Discard 5.0 ml # Bowel Movements 0 0 Laboratory Tests Test 09/30/16 09/30/16 09/30/16 10/01/16 18:00 20:11 20:53 03:08 Nasal Screen MRSA (PCR) MRSA NOT DETECTED Fibrinogen 492 mg/dL Sodium Level 148 MEQ/L 152 MEQ/L Serum Osmolality 320 MOSM/KG 322 MOSM/KG Lactic Acid Level 1.1 mmol/L 0.8 mmol/L Troponin I 11.60 NG/ML 10.30 NG/ML Lipase 37 U/L Hepatitis A IgM Antibody NEGATIVE Hepatitis B Surface Antigen NEGATIVE Hepatitis B Core IgM Antibody NEGATIVE Hepatitis C Antibody NEGATIVE HIV (1&2) Antibody NEGATIVE Test 10/01/16 10/01/16 10/01/16 10/01/16 04:12 04:57 09:00 14:38 White Blood Count 15.9 TH/MM3 Red Blood Count 2.99 MIL/MM3 Hemoglobin 8.8 GM/DL Hematocrit 26.3 % Mean Corpuscular Volume 88.0 FL Mean Corpuscular Hemoglobin 29.3 PG Mean Corpuscular Hemoglobin 33.3 % Concent Red Cell Distribution Width 14.0 % Platelet Count 109 TH/MM3 Mean Platelet Volume 8.4 FL Neutrophils (%) (Auto) % Lymphocytes (%) (Auto) % Monocytes (%) (Auto) % Eosinophils (%) (Auto) % Basophils (%) (Auto) % Neutrophils # (Auto) TH/MM3 Lymphocytes # (Auto) TH/MM3 Monocytes # (Auto) TH/MM3 Eosinophils # (Auto) TH/MM3 Basophils # (Auto) TH/MM3 CBC Comment AUTO DIFF Differential Total Cells 100 Counted Neutrophils % (Manual) 75 % Band Neutrophils % 10 % Lymphocytes % 4 % Monocytes % 9 % Neutrophils # (Manual) 13.8 TH/MM3 Metamyelocytes 1 % Myelocytes 1 % Differential Comment FINAL DIFF MANUAL Toxic Vacuolation PRESENT Dohle Bodies PRESENT Platelet Estimate LOW Platelet Morphology Comment NORMAL Red Cell Morphology Comment NORMAL Prothrombin Time 13.9 SEC Prothromb Time International 1.2 RATIO Ratio Activated Partial 30.0 SEC Thromboplast Time Sodium Level 151 MEQ/L 152 MEQ/L 154 MEQ/L Potassium Level 3.7 MEQ/L Chloride Level 119 MEQ/L Carbon Dioxide Level 24.4 MEQ/L Anion Gap 8 MEQ/L Blood Urea Nitrogen 32 MG/DL Creatinine 0.95 MG/DL Estimat Glomerular Filtration 96 ML/MIN Rate Random Glucose 133 MG/DL Calcium Level 8.2 MG/DL Phosphorus Level 3.0 MG/DL Magnesium Level 2.6 MG/DL Total Bilirubin 0.6 MG/DL Aspartate Amino Transf 80 U/L (AST/SGOT) Alanine Aminotransferase 59 U/L (ALT/SGPT) Alkaline Phosphatase 137 U/L Ammonia LESS THAN 10 MCMOL/L Total Protein 6.2 GM/DL Albumin 1.9 GM/DL Random Cortisol 32.4 MCG/DL Blood Gas Puncture Site ART LINE Blood Gas Patient Temperature 98.6 Blood Gas HCO3 21 mmol/L Blood Gas Base Excess -3.3 mmol/L Blood Gas Oxygen Saturation 97 % Arterial Blood pH 7.37 Arterial Blood Partial 37 mmHg Pressure CO2 Arterial Blood Partial 163 mmHg Pressure O2 Arterial Blood Oxygen Content 16.3 Vol % Arterial Blood 0.7 % Carboxyhemoglobin Arterial Blood Methemoglobin 1.1 % Blood Gas Hemoglobin 11.7 G/DL Oxygen Delivery Device VENTILATOR Blood Gas Ventilator Setting AC14/500/PEEP5 Blood Gas Inspired Oxygen 40 % Serum Osmolality 327 MOSM/KG 328 MOSM/KG Lactic Acid Level 0.9 mmol/L 0.8 mmol/L Total Creatine Kinase 1064 U/L Creatine Kinase MB 12.7 NG/ML Creatine Kinase MB % 1.2 % Free Thyroxine 1.07 NG/DL Free Triiodothyronine (T3) LESS THAN 0.50 pg/dL PG/ML Test 10/01/16 10/02/16 10/02/16 10/02/16 20:05 03:15 05:55 09:21 Sodium Level 154 MEQ/L 157 MEQ/L Serum Osmolality 332 MOSM/KG 334 MOSM/KG White Blood Count 17.0 TH/MM3 Red Blood Count 2.85 MIL/MM3 Hemoglobin 8.5 GM/DL Hematocrit 25.2 % Mean Corpuscular Volume 88.3 FL Mean Corpuscular Hemoglobin 29.6 PG Mean Corpuscular Hemoglobin 33.5 % Concent Red Cell Distribution Width 14.7 % Platelet Count 115 TH/MM3 Mean Platelet Volume 8.4 FL Potassium Level 4.0 MEQ/L Chloride Level 124 MEQ/L Carbon Dioxide Level 25.6 MEQ/L Anion Gap 7 MEQ/L Blood Urea Nitrogen 23 MG/DL Creatinine 0.82 MG/DL Estimat Glomerular Filtration 114 ML/MIN Rate Random Glucose 152 MG/DL Calcium Level 8.1 MG/DL Vancomycin Level Trough 8.8 MCG/ML Blood Gas Puncture Site ART LINE Blood Gas Patient Temperature 98.6 Blood Gas HCO3 23 mmol/L Blood Gas Base Excess -1.0 mmol/L Blood Gas Oxygen Saturation 97 % Arterial Blood pH 7.38 Arterial Blood Partial 40 mmHg Pressure CO2 Arterial Blood Partial 176 mmHg Pressure O2 Arterial Blood Oxygen Content 11.9 Vol % Arterial Blood 0.8 % Carboxyhemoglobin Arterial Blood Methemoglobin 1.0 % Blood Gas Hemoglobin 8.4 G/DL Oxygen Delivery Device VENTILATOR Blood Gas Ventilator Setting AC/500/14/5PEEP Blood Gas Inspired Oxygen 40 % Urine Eosinophils RARE /HPF Test 10/02/16 10/02/16 10/03/16 12:30 19:35 05:00 Sodium Level 157 MEQ/L 156 MEQ/L 155 MEQ/L Serum Osmolality 335 MOSM/KG 329 MOSM/KG White Blood Count 20.2 TH/MM3 Red Blood Count 2.96 MIL/MM3 Hemoglobin 8.6 GM/DL Hematocrit 26.1 % Mean Corpuscular Volume 88.1 FL Mean Corpuscular Hemoglobin 29.1 PG Mean Corpuscular Hemoglobin 33.0 % Concent Red Cell Distribution Width 14.5 % Platelet Count 132 TH/MM3 Mean Platelet Volume 8.5 FL Neutrophils (%) (Auto) 86.5 % Lymphocytes (%) (Auto) 8.5 % Monocytes (%) (Auto) 4.1 % Eosinophils (%) (Auto) 0.6 % Basophils (%) (Auto) 0.3 % Neutrophils # (Auto) 17.5 TH/MM3 Lymphocytes # (Auto) 1.7 TH/MM3 Monocytes # (Auto) 0.8 TH/MM3 Eosinophils # (Auto) 0.1 TH/MM3 Basophils # (Auto) 0.1 TH/MM3 CBC Comment DIFF FINAL Differential Comment Potassium Level 4.1 MEQ/L Chloride Level 120 MEQ/L Carbon Dioxide Level 28.9 MEQ/L Anion Gap 6 MEQ/L Blood Urea Nitrogen 20 MG/DL Creatinine 0.81 MG/DL Estimat Glomerular Filtration 115 ML/MIN Rate Random Glucose 197 MG/DL Calcium Level 8.6 MG/DL Constitutional Vital Signs Date Time Temp Pulse Resp B/P Pulse Ox O2 Delivery O2 Flow Rate FiO2 10/03/16 16:01 110 10/03/16 16:01 99.3 110 16 121/63 100 10/03/16 16:01 30 10/03/16 15:50 0 30 10/03/16 14:07 131 10/03/16 12:00 122 10/03/16 12:00 100.5 122 14 118/53 100 10/03/16 12:00 30 10/03/16 11:37 100 30 10/03/16 10:05 100.3 10/03/16 10:05 120 10/03/16 09:30 100 100 10/03/16 08:10 100 30 10/03/16 08:00 30 10/03/16 08:00 120 10/03/16 08:00 99.9 128 16 118/59 99 10/03/16 06:00 108 10/03/16 04:23 100 30 10/03/16 04:00 30 10/03/16 04:00 99.2 100 17 118/56 100 10/03/16 04:00 100 10/03/16 02:42 16 10/03/16 02:00 120 10/03/16 00:59 100 30 10/03/16 00:00 100.6 120 14 128/60 100 10/03/16 00:00 120 10/03/16 00:00 30 10/02/16 22:00 122 10/02/16 20:46 100 30 10/02/16 20:00 30 10/02/16 20:00 102 10/02/16 20:00 100.5 102 20 108/54 99 10/02/16 18:00 112 10/03/16 07:00 Intake Total 4089 ml Output Total 3505.0 ml Balance 584.0 ml (Elliott Fragoso) Review of Systems/Exam ROS Unable to obtain a ROS due to the patient's mental status, sedation & intubation. Exam GENERAL: Sedated & intubated, no agitation. HEENT: Normocephalic, atraumatic. PERRL 3 mm, sluggish. Mucous membranes moist, orally intubated, OGT present. NECK: No nuchal rigidity, no JVD, trachea midline. CHEST: CTAB w/o W/R/R, equal excursion, non-laboured, orally intubated & mechanically ventilated. CARDIOVASCULAR: S1S2 w/regular rate but fast, grade II/ murmur, radial & pedal pulses 2+ bilaterally, cap refill < 2 sec, 2+ edema at ankles but less to feet. Monitor is sinus tachycardia w/o any ectopy noted. ABDOMEN: Abdomen soft, nontender, no palpable masses or organomegaly, positive bowel sounds, OGT with enteral feeds. GENITOURINARY: Jerez catheter to BSD. MUSCULOSKELETAL: Moves only the RUE & BLE to stimuli, no evident TTP, no evident deformity or clubbing. INTEGUMENTARY: The nonblanching macular rash to the feet & ankle persists as does the scaling skin. The tip of the right great toe does have several very small necrotic areas. NEUROLOGICAL: Sedated & intubated, GCS 7T (E1 V1T M5) He is not following any commands, he withdraws the RUE & BLE to noxious stimuli to any nail bed but there is no movement of the LUE, no eye opening Unable to assess for sensory deficit due to mental status (Elliott Fragoso) Medications Current Medications Current Medications Medications (Trade) Dose Ordered Sig/Beena Route Start Time Stop Time Status Last Admin (Rocephin Inj/NS Inj) 100 ml @ 200 mls/hr Q12H IV 10/01/16 03:00 10/03/16 13:50 Chlorhexidine Gluconate 15 ml 15 ml BID@08,20 MT 09/30/16 20:00 10/03/16 08:16 Propofol 100 ml @ 0 mls/hr TITRATE IV 09/30/16 17:45 10/03/16 11:37 (fentaNYL DRIP) 250 ml @ 0 mls/hr TITRATE IV 09/30/16 17:45 10/03/16 12:28 (NS Flush) 2 ml UNSCH PRN IV FLUSH 09/30/16 17:45 (NS Flush) 2 ml BID IV FLUSH 09/30/16 21:00 10/03/16 08:17 (Tylenol) 650 mg Q6H PRN PO 09/30/16 17:45 10/03/16 13:59 (Protonix Inj) 40 mg DAILY IV 10/01/16 09:00 10/03/16 08:18 (Tears Naturale Opth Soln) 1 drop TID EACH EYE 09/30/16 18:00 10/03/16 16:11 (Zofran Inj) 4 mg Q6H PRN IV 09/30/16 17:45 (Colace Liq) 100 mg Q12H G-TUBE 09/30/16 20:00 10/03/16 08:18 (Senna Liq) 17.6 mg Q12H PRN G-TUBE 09/30/16 17:45 Miscellaneous Information 1 Q361D XX 09/30/16 17:45 09/30/16 17:45 (Chlorhexidine 2% Cloth) 3 pack Taper DAILY@04 TOP 10/01/16 04:00 09/27/17 03:59 10/03/16 04:08 (Chlorhexidine 2% Cloth) 3 pack UNSCH PRN TOP 09/30/16 17:45 (D50w (Vial) Inj) 50 ml UNSCH PRN IV 09/30/16 18:00 (Glucagon Inj) 1 mg UNSCH PRN OTHER 09/30/16 18:00 Insulin Human Regular 1 1 Q6HR SQ 09/30/16 18:00 (Levophed Inj/NS 250 ml Inj) 254 ml @ 0 mls/hr TITRATE IV 10/01/16 04:15 10/02/16 20:18 Quetiapine Fumarate 50 mg 50 mg Q8HR PO 10/02/16 08:00 10/03/16 14:35 (Lr 1000 ml Inj) 1,000 ml @ 84 mls/hr [id number] IV 10/03/16 02:15 10/03/16 13:51 (Elliott Fragoso) Medical Decision Making MDM Remarks Impression: Multiple acute septic CVAs Cerebral edema Small subarachnoid hemorrhage Midline shift, 3 mm Metabolic encephalopathy Septic shock Infective endocarditis Sodium at target level of 155 Blood cultures & sputum from both growing Staph aureus CT brain this morning demonstrates multiple evolving lesions consistent with infarcts (Elliott Fragoso) Plan Plan Remarks CT brain qd in AM Stat CT brain for any further decline in neurological status Frequent neuro checks 3% saline PRN to keep sodium level at 155 Monitor sodium levels Critical care management by [employer] Lieutenant Antibiotics per Infectious Disease (Elliott Fragoso) Attending Statement I have personally seen and examined the patient on 10/03/16. Pertinent documentation and study results have been reviewed by the undersigned. I have personally developed the treatment plan and performed medical decision making. Agree with findings, exam, and treatment plan as noted above. Sodium satisfactory He is more alert and less agitated today. He opens his eyes readily to voice and grasps his right hand. CT scan head 10/03/16 images reviewed by the undersigned. Edema is improving. No new lesions. Stable neurologic exam. May wean off sedation and ventilator from a neurosurgical standpoint. We will discontinue daily CT scans and image as needed depending on neurologic exam and clinical course. (Pino Michelle MD) Elliott Fragoso October 03, 2016 17:12 Pino Michelle MD October 03, 2016 22:35
[2016-10-03] MEDS: NOREPINEPHRINE INJ 4 MG in SODIUM CHLOR 0.9% 250 ML INJ 250 ML IV SCH (23:19)
[2016-10-04] VITALS (20 sets, daily range): BP systolic 106–145; BP diastolic 46–63; PULSE 100–120; RESP 14–18; TEMP 100–100.8; O2SAT 97–100
[2016-10-04] MEDS: LACTATED RINGER'S 1000 ML INJ 1,000 ML IV SCH (02:13)
[2016-10-04] MEDS: cefTRIAXone INJ 2,000 MG in SODIUM CHLORIDE 0.9% INJ 100 ML IV SCH (03:03)
[2016-10-04] MEDS: ACETAMINOPHEN 325 MG TAB PO PRN ×4 (03:03→23:10)
[2016-10-04] MEDS: CHLORHEXIDINE GLUCONATE 2 % 1 PACK (2 CLOTHS) TOP SCH (03:04)
[2016-10-04] MEDS: PROPOFOL 1000 MG/100 ML INJ 100 ML IV SCH ×3 (03:46→21:36)
[2016-10-04] MEDS ORDERED: PHARMACY ORDERED LAB ONE (04:45)
[2016-10-04] MEDS: RESP: ALBUTEROL 2.5 MG/IPRATROPIUM 0.5 MG NEB (SCH) INH ×4 (04:52→19:43)
[2016-10-04 05:19] LABS: AUTOMATED NEUTROPHIL # 22.4 TH/MM3 (1.8-7.7); BASOPHIL % 0.2 % (0.0-2.0); EOSINOPHIL # 0.2 TH/MM3 (0-0.4); EOSINOPHIL % 0.8 % (0.0-4.0); HEMATOCRIT 25.1 % (39.0-51.0); LYMPH % 7.5 % (9.0-44.0); LYMPHOCYTE # 1.9 TH/MM3 (1.0-4.8); MEAN CELL VOLUME 87.7 FL (80.0-100.0); MEAN CORPUSCULAR HEMOGLOBIN 28.9 PG (27.0-34.0); MEAN CORPUSCULAR HGB CONC 32.9 % (32.0-36.0); MONO % 2.9 % (0.0-8.0); NEUT % 88.6 % (16.0-70.0); PLATELET COUNT 150 TH/MM3 (150-450); RED BLOOD COUNT 2.87 MIL/MM3 (4.50-5.90); RED CELL DISTRIBUTION WIDTH 14.8 % (11.6-17.2); WHITE BLOOD COUNT 25.2 TH/MM3 (4.0-11.0)
[2016-10-04 05:35] LABS: HEMO FLAGS AUTO DIFF
[2016-10-04 05:38] LABS: POTASSIUM 3.9 MEQ/L (3.5-5.1)
[2016-10-04] MEDS: INSULIN NovoLIN REGULAR SUPPLEMENTAL SCALE SQ SCH ×4 (06:00→23:10)
[2016-10-04] MEDS: QUEtiapine FUMARATE 25 MG TAB PO SCH ×3 (06:14→21:35)
--- NOTE | 2016-10-04 07:44 | HHI.CCPN ---
Subjective Remarks/Hospital Course Hospital Course: This is a 26yM who presents to the ED for altered mental status. On arrival, the patient was obtunded and emergently intubated. His roommate is with him and cannot provide much medical history. The remainder of the history is per EMS and ER documentation and my discussion with the ER physician. Per EMS and ED reports, patient was seen approximately 10 days prior to admission by an unknown physician in the clinic and given antibiotic for fever. After taking the antibiotic, the patient had a new red rash on his hands and healing on his feet. He he was seen in the emergency department 2 days prior to admission for low-grade fever and congestion, generalized weakness, lightheadedness. At that time she was given prescription for prednisone 40 mg daily for 5 days. The patient's landlord apparently found the patient today with altered mental status and called EMS. When EMS arrived, his GCS was 10. There is reports that the patient has a history of substance abuse and was recently in rehabilitation. I did talk to the roommate who confirms that the patient had recently gotten out of rehabilitation and was living with him. The remainder does say that he does not think the patient has been taking any illicit substances recently. In the emergency department, the patient was hypotensive, tachycardic. His head CT is significant for significant areas of infarction in the right frontal , temporal, and cerebellar regions as well as a small area of subarachnoid hemorrhage in the superior right parietal region. Patient has early 3 mm of midline shift as well as effacement on the right. Patient's laboratory data is significant for white blood cell count of 19,000, hemoglobin of 9.9, lactate of 3.7, creatinine 1.69, CK 372, troponin of 11.9. His urine drug screen is positive for opiates and amphetamines. I performed a bedside critical care ultrasound which demonstrated hyperdynamic left ventricular function and what appears to be aortic valve vegetations and I measured to be proximally 0.9 x 8.8 cm. This is associated with what appears to be severe aortic regurgitation. There is no pericardial effusion. Right ventricular function is preserved. A formal echo has been ordered to confirm these findings. Critical care medicine has been consulted to evaluate and manage his shock, altered mental status, multiple areas of infarction, and subarachnoid hemorrhage. Subjective: 10/01: seen and examined around 06:30am. patient on norepinephrine at 6 mcg/min , persistently in shock. patient localizes to pain x [address] extremities. repeat interval head CT with 4mm midline shift. echo with significant aortic valve vegetations and moderate aortic insufficiency. 10/02: now following commands intermittently on the RUE, still localizing in LUE , BLE. off vasopressors this morning. cultures growing staph, sensitivities to follow. 10/03: tachycardic overnight. off vasopressors this morning. not following commands this morning. still persistently febrile and wbc uptrended to 20k. 10/04: still encephalopathic. EEG negative for seizure activity. received 1 trial dose of oxacillin yesterday without evidence of allergic reaction. will let ID guide this therapy, but safe from a critical care standpoint to pursue oxacillin therapy. cultures persistently positive and wbc uptrending. still febrile. Objective Vital Signs Date Time Temp Pulse Resp B/P Pulse Ox O2 Delivery O2 Flow Rate FiO2 10/04/16 06:00 102 10/04/16 04:52 97 30 10/04/16 04:00 100.8 17 106/52 10/01/16 07:00 Mechanical Ventilator Intake and Output 10/03/16 10/03/16 10/04/16 08:00 16:00 00:00 Intake Total 1458 ml 1229 ml 1326 ml Output Total 1585 ml 1500 ml 1350 ml Balance -127 ml -271 ml -24 ml Result Diagram: 10/04/16 0500 10/04/16 0500 Imaging Last Impressions Head CT 09/30/16 1453 Signed Impressions: Service Date/Time: Friday, September 30, 2016 16:31 - CONCLUSION: Noncontrast CT findings of concern for multiple intra-axial masses. There is small acute subarachnoid blood present and about 3 mm of leftward midline shift. MRI of the brain with and without contrast recommended. Michael Freitas MD Chest X-Ray 09/30/16 8312 Signed Impressions: Service Date/Time: Friday, September 30, 2016 15:23 - CONCLUSION: No acute cardiopulmonary disease demonstrated. Appropriate endotracheal tube tip position. Nasogastric tube courses into the stomach, tip not included on the study. Michael Freitas MD Objective Remarks GENERAL: Young male, lying in bed, intubated, sedated, critically ill HEENT: Pupils 3 mm, equal, sluggishly reactive. Mucous membranes moist. NECK: No JVD. Trachea midline. Orotracheally intubated CHEST: Equal chest rise. Clear to auscultation. CARDIOVASCULAR: Tachycardic rate, regular rhythm. II/ systolic and diastolic murmur. ABDOMEN: Soft, nontender, nondistended. No guarding. MUSCULOSKELETAL: There is a nonblanching macular rash primarily over the dorsal aspect of the bilateral feet up to the ankle. No peripheral edema. Distal pulses 2+. NEUROLOGICAL: RASS -3. does not follow commands for me this morning. localizes in the RUE. spontaneous movements of BLE and w/d to pain. minimal movement in LUE. 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 Still critically ill and with ongoing cerebral edema. neuro exam stable. continue to follow cultures. We will continue with supportive care. Remains very critically ill at this time. Plan by systems: Neurologic: Multiple acute septic CVAs Cerebral edema Small subarachnoid hemorrhage Midline shift, 4 mm Metabolic encephalopathy Agitated Delirium Neurosurgery consulted, Dr. Michelle q1h neuro checks --prop/fent for goal RASS -2. --avoid long-acting sedating meds --d/c 3% today. --EEG 10/01- negative for seizures --seroquel 50mg po q8hr. Respiratory: Acute hypoxic and hypercarbic respiratory failure Vent bundle Head of bed 30 Avoid hypercarbia and hypoxia would consider starting SBT today given improvement in cerebral edema. Wean FiO2 for goal SPO2 greater than 92% Cardiovascular: Aortic valve endocarditis Moderate aortic insufficiency Cardiogenic shock- resolved. Septic shock- resolved --slowly liberalize sodium goal. Arterial line, central line for invasive central pressure monitoring --trend CVP. Abx as described below 2d echo 10/01: aortic valve vegetations, moderate AI. Norepinephrine for goal map greater than 65 Renal: Acute kidney injury- resolved. Jerez for accurate I's and O's -- Strict I/Os FEN/GI: Hypermagnesemia Lactic acidosis- resolved. Severe metabolic acidosis- resolved. Acute protein calorie malnutritionmild Elevated LFTs jevity 1.5, nutrition consult. OG tube to suction --wean off ivf today. d/c serial sodiums/osms Daily BMP Heme/ID: Anemia, likely secondary to hemolysis from valvulopathy Infective endocarditis Septic shock- resolving. 10/01 blood cultures: MSSA --10/01 sputum culture: MSSA --10/02 blood cultures: MSSA --10/03 blood cultures: pending. vancomycin, flagyl d/c 10/02. --continue Rocephin 2gm iv q12h. Infectious disease following: Dontfraid --if persistently positive cultures, will discuss with ID possibly gent induction therapy. Endocrine: Hyperglycemia of critical illness -- SSI, every 6 hours, medium scale TSH 0.16, free T4 1.07, T3 < 0.5: likely sick euthyroid. Prophylaxis: GI Prophylaxis Protonix IV DVT Prophylaxis -- SCDs Holding pharmacologic DVT prophylaxis in the setting of cerebral hemorrhage Lines: 09/30 radial arterial line --09/30 left SC TLC --Jerez Dispo: Remain in the ICU. He remains critically ill. This patient remains critically ill with one or more organ systems which are or may become a threat to life. I have spent in excess of 40 minutes discontinuously in the care and management of this patient. This time is exclusive of procedures, and includes, but is not limited to, evaluation of the patient, review of the medical record, discussions with family, consultants, nursing staff, or respiratory therapy, and documentation in the medical record. Yahir Dominguez MD October 04, 2016 07:44
[2016-10-04 07:49] LABS: BANDS 1 % (0-6); EOSINOPHILS 2 % (0-4); METAMYELOCYTES 2 % (0-1); MYELOCYTES 3 % (0-0); NEUTROPHIL # MANUAL DIFF 22.2 TH/MM3 (1.8-7.7); PLATELET ESTIMATE SMEAR NORMAL (NORMAL); PLATELET MORPHOLOGY NORMAL (NORMAL); POLYS (SEG NEUTROPHILS) 82 % (16-70); SCAN/DIFF FINAL DIFF MANUAL; WBC DIFF SAMPLE 100
[2016-10-04] MEDS: CHLORHEXIDINE 0.12% (ORAL KIT) 15 ML CUP MT SCH ×2 (07:49→19:56)
[2016-10-04] MEDS: DOCUSATE SODIUM 100 MG/10 ML UDC G-TUBE SCH ×2 (07:49→19:55)
[2016-10-04] MEDS: ARTIFICIAL TEARS OPTH SOLN 15 ML BTL EACH EYE SCH ×3 (07:49→16:37)
[2016-10-04] MEDS: PANTOPRAZOLE SODIUM 40 MG VIAL IV SCH (07:49)
[2016-10-04] MEDS: SODIUM CHLORIDE 0.9% FLUSH 10 ML FLUSH IV FLUSH SCH ×2 (07:50→19:56)
[2016-10-04] MEDS: PROPRANOLOL HCL 10 MG TAB PO SCH ×3 (08:20→22:59)
--- NOTE | 2016-10-04 10:25 | HHI.NSPN ---
(Elliott Fragoso Zhou KELLEYP) Note Status Status: Progress Note (Elliott Fragoso) Interval History Interval History 10/01: The HPI is obtained from a review of the EMR due to the patient's altered mental status and intubation. This is a 26-year-old male who was found by his landlord on with altered mental status and called EMS. Upon arrival of EMS the patient had a GCS of 10. In the emergency department the patient was hypotensive and tachycardiac. He was emergently intubated for airway protection. His CT brain demonstrated significant areas of infarction to the right frontal, temporal and cerebellar regions as well as a small subarachnoid haemorrhage to the superior right parietal region. There was a 3 mm midline shift as well as effacement on the right. The patient's laboratory data is significant for white blood cell count of 19,000, haemoglobin of 9.9, lactate of 3.7, creatinine 1.69, CK 372, troponin of 11.9. His urine drug screen is positive for opiates and amphetamines. He was subsequently admitted to the [facility] for further management and monitoring. Per EMS and ED reports, patient was seen approximately 10 days prior to admission by an unknown physician in the clinic and given antibiotic for fever. After taking the antibiotic, the patient had a new red rash on his hands and healing on his feet. He he was seen in the emergency department 2 days prior to admission for low-grade fever and congestion, generalized weakness, lightheadedness. At that time she was given prescription for prednisone 40 mg daily for 5 days. The patient's landlord apparently found the patient today with altered mental status and called EMS. When EMS arrived, his GCS was 10. There is reports that the patient has a history of substance abuse and was recently in rehabilitation. The patient's roommate confirmed to the [employer] that the patient had recently been in rehabilitation due to a history of substance abuse. The roommate did not think he was doing any illicit drugs recently. 10/02: The patient remains intubated & sedated. He withdraws to painful stimuli to the extremities. 10/03: The patient is sedated with propofol & fentanyl. Nursing reports that he does move the RUE mostly but will move the BLE when the sedation is off. Nursing reported no movement of the LUE. When EEG was at the bedside with the sedation down the patient became quite agitated and was kicking out. 10/04: The patient remains sedated. Nursing states he continues to be agitated when the sedation is off. A CT brain yesterday demonstrated multiple evolving infarcts. (Elliott Fragoso) Labs, Micro, & Vital Signs Results Allergies Coded Allergies Type Severity Reaction Last Updated Verified Hydrocodone Allergy Unknown Nausea/Vomiting 10/04/16 Yes Sulfa Allergy Unknown 09/30/16 Yes Toradol Allergy Unknown 09/30/16 Yes Recent Impressions Head CT 10/03/16 0945 Signed Impressions: Service Date/Time: Monday, October 03, 2016 09:51 - CONCLUSION: 1. Multiple foci of low attenuation seen within the cerebral and cerebellar hemispheres consistent with evolving infarcts. Mykel Cantu MD Head CT 10/02/16 0000 Signed Impressions: Service Date/Time: Sunday, October 02, 2016 10:19 - CONCLUSION: 1. Stable multifocal areas of low density bilaterally, as above. No acute blood products are identified. Overall, no significant change has occurred since yesterday's exam. 2. Persistent but minimal right to left midline shift currently measuring 3 mm. Michael Escalera MD ///// 06: 18:00 06: 18: 06: 18:00 Intake Total 3197 ml 1845 ml 1910 ml 2053 ml 1968 ml 497 ml Output Total 1595 ml 1540.0 ml 1815 ml 2435 ml 2140 ml 850 ml Balance 1602 ml 305.0 ml 95 ml -382 ml -172 ml -353 ml Intake IV Total 3157 ml 1605 ml 1355 ml 1230 ml 1238 ml 238 ml Tube Feeding 90 ml 495 ml 613 ml 730 ml 199 ml Tube Irrigant 60 ml Other 40 ml 150 ml 210 ml 60 ml Output Urine Total 1595 ml 1485 ml 1815 ml 2435 ml 2140 ml 850 ml Gastric Drainage Total 0 ml 50 ml Tube Feeding Residual Discard 5.0 ml # Bowel Movements 0 0 0 Laboratory Tests Test 10/01/16 10/01/16 10/02/16 10/02/16 14:38 20:05 03:15 05:55 Sodium Level 154 MEQ/L 154 MEQ/L 157 MEQ/L Serum Osmolality 328 MOSM/KG 332 MOSM/KG 334 MOSM/KG Lactic Acid Level 0.8 mmol/L Total Creatine Kinase 1064 U/L Creatine Kinase MB 12.7 NG/ML Creatine Kinase MB % 1.2 % Free Thyroxine 1.07 NG/DL Free Triiodothyronine (T3) LESS THAN 0.50 pg/dL PG/ML White Blood Count 17.0 TH/MM3 Red Blood Count 2.85 MIL/MM3 Hemoglobin 8.5 GM/DL Hematocrit 25.2 % Mean Corpuscular Volume 88.3 FL Mean Corpuscular Hemoglobin 29.6 PG Mean Corpuscular Hemoglobin 33.5 % Concent Red Cell Distribution Width 14.7 % Platelet Count 115 TH/MM3 Mean Platelet Volume 8.4 FL Potassium Level 4.0 MEQ/L Chloride Level 124 MEQ/L Carbon Dioxide Level 25.6 MEQ/L Anion Gap 7 MEQ/L Blood Urea Nitrogen 23 MG/DL Creatinine 0.82 MG/DL Estimat Glomerular Filtration 114 ML/MIN Rate Random Glucose 152 MG/DL Calcium Level 8.1 MG/DL Vancomycin Level Trough 8.8 MCG/ML Blood Gas Puncture Site ART LINE Blood Gas Patient Temperature 98.6 Blood Gas HCO3 23 mmol/L Blood Gas Base Excess -1.0 mmol/L Blood Gas Oxygen Saturation 97 % Arterial Blood pH 7.38 Arterial Blood Partial 40 mmHg Pressure CO2 Arterial Blood Partial 176 mmHg Pressure O2 Arterial Blood Oxygen Content 11.9 Vol % Arterial Blood 0.8 % Carboxyhemoglobin Arterial Blood Methemoglobin 1.0 % Blood Gas Hemoglobin 8.4 G/DL Oxygen Delivery Device VENTILATOR Blood Gas Ventilator Setting AC/500/14/5PEEP Blood Gas Inspired Oxygen 40 % Test 10/02/16 10/02/16 10/02/16 10/03/16 09:21 12:30 19:35 05:00 Urine Eosinophils RARE /HPF Sodium Level 157 MEQ/L 156 MEQ/L 155 MEQ/L Serum Osmolality 335 MOSM/KG 329 MOSM/KG White Blood Count 20.2 TH/MM3 Red Blood Count 2.96 MIL/MM3 Hemoglobin 8.6 GM/DL Hematocrit 26.1 % Mean Corpuscular Volume 88.1 FL Mean Corpuscular Hemoglobin 29.1 PG Mean Corpuscular Hemoglobin 33.0 % Concent Red Cell Distribution Width 14.5 % Platelet Count 132 TH/MM3 Mean Platelet Volume 8.5 FL Neutrophils (%) (Auto) 86.5 % Lymphocytes (%) (Auto) 8.5 % Monocytes (%) (Auto) 4.1 % Eosinophils (%) (Auto) 0.6 % Basophils (%) (Auto) 0.3 % Neutrophils # (Auto) 17.5 TH/MM3 Lymphocytes # (Auto) 1.7 TH/MM3 Monocytes # (Auto) 0.8 TH/MM3 Eosinophils # (Auto) 0.1 TH/MM3 Basophils # (Auto) 0.1 TH/MM3 CBC Comment DIFF FINAL Differential Comment Potassium Level 4.1 MEQ/L Chloride Level 120 MEQ/L Carbon Dioxide Level 28.9 MEQ/L Anion Gap 6 MEQ/L Blood Urea Nitrogen 20 MG/DL Creatinine 0.81 MG/DL Estimat Glomerular Filtration 115 ML/MIN Rate Random Glucose 197 MG/DL Calcium Level 8.6 MG/DL Test 10/04/16 05:00 White Blood Count 25.2 TH/MM3 Red Blood Count 2.87 MIL/MM3 Hemoglobin 8.3 GM/DL Hematocrit 25.1 % Mean Corpuscular Volume 87.7 FL Mean Corpuscular Hemoglobin 28.9 PG Mean Corpuscular Hemoglobin 32.9 % Concent Red Cell Distribution Width 14.8 % Platelet Count 150 TH/MM3 Mean Platelet Volume 8.3 FL Neutrophils (%) (Auto) 88.6 % Lymphocytes (%) (Auto) 7.5 % Monocytes (%) (Auto) 2.9 % Eosinophils (%) (Auto) 0.8 % Basophils (%) (Auto) 0.2 % Neutrophils # (Auto) 22.4 TH/MM3 Lymphocytes # (Auto) 1.9 TH/MM3 Monocytes # (Auto) 0.7 TH/MM3 Eosinophils # (Auto) 0.2 TH/MM3 Basophils # (Auto) 0.0 TH/MM3 CBC Comment AUTO DIFF Differential Total Cells 100 Counted Neutrophils % (Manual) 82 % Band Neutrophils % 1 % Lymphocytes % 9 % Monocytes % 1 % Eosinophils % 2 % Neutrophils # (Manual) 22.2 TH/MM3 Metamyelocytes 2 % Myelocytes 3 % Differential Comment FINAL DIFF MANUAL Platelet Estimate NORMAL Platelet Morphology Comment NORMAL Red Cell Morphology Comment NORMAL Sodium Level 153 MEQ/L Potassium Level 3.9 MEQ/L Chloride Level 116 MEQ/L Carbon Dioxide Level 33.0 MEQ/L Anion Gap 4 MEQ/L Blood Urea Nitrogen 18 MG/DL Creatinine 0.73 MG/DL Estimat Glomerular Filtration 130 ML/MIN Rate Random Glucose 150 MG/DL Calcium Level 8.3 MG/DL Constitutional Vital Signs Date Time Temp Pulse Resp B/P Pulse Ox O2 Delivery O2 Flow Rate FiO2 10/04/16 10:00 113 10/04/16 08:05 100 30 10/04/16 08:00 120 10/04/16 08:00 30 10/04/16 08:00 100.3 117 14 127/58 100 10/04/16 06:00 102 10/04/16 04:52 97 30 10/04/16 04:00 30 10/04/16 04:00 116 10/04/16 04:00 100.8 116 17 106/52 99 10/04/16 02:00 120 10/04/16 01:03 99 30 10/04/16 00:00 30 10/04/16 00:00 100.5 116 14 124/63 99 10/04/16 00:00 116 10/03/16 22:00 104 10/03/16 21:12 95 30 10/03/16 20:53 16 10/03/16 20:00 100.9 128 15 122/52 100 10/03/16 20:00 30 10/03/16 20:00 128 10/03/16 18:01 121 10/03/16 16:01 110 10/03/16 16:01 99.3 110 16 121/63 100 10/03/16 16:01 30 10/03/16 15:50 0 30 10/03/16 14:07 131 10/03/16 12:00 122 10/03/16 12:00 100.5 122 14 118/53 100 10/03/16 12:00 30 10/03/16 11:37 100 30 10/04/16 07:00 Intake Total 3824 ml Output Total 4365 ml Balance -541 ml (Elliott Fragoso) Review of Systems/Exam ROS Unable to obtain a ROS due to the patient's mental status, sedation & intubation. Exam GENERAL: Sedated & intubated, no agitation. HEENT: Normocephalic, atraumatic. PERRL 3 mm, sluggish. Mucous membranes moist, orally intubated, OGT present. NECK: No nuchal rigidity, no JVD, trachea midline. CHEST: CTAB w/o W/R/R, equal excursion, non-laboured, orally intubated & mechanically ventilated. CARDIOVASCULAR: S1S2 w/regular rate but fast, grade II/ murmur, radial & pedal pulses 2+ bilaterally, cap refill < 2 sec, 2+ edema at ankles but less to feet. Monitor is sinus tachycardia w/o any ectopy noted. ABDOMEN: Abdomen soft, nontender, no palpable masses or organomegaly, positive bowel sounds, OGT with enteral feeds. GENITOURINARY: Jerez catheter to BSD. MUSCULOSKELETAL: Moves only the RUE & RLE to stimuli, no evident TTP, no evident deformity or clubbing. INTEGUMENTARY: The nonblanching macular rash to the feet & ankle persists as does the scaling skin. The tip of the right great toe does have several very small necrotic areas. NEUROLOGICAL: Sedated & intubated, GCS 7T (E1 V1T M5) The patient partially opens the right eye to stimulation He is not following any commands, he withdraws the RUE & RLE to noxious stimuli to any nail bed but there is no movement of the LUE or LLE Unable to assess for sensory deficit due to mental status (Elliott Fragoso) Medications Current Medications Current Medications Medications (Trade) Dose Ordered Sig/Beena Route Start Time Stop Time Status Last Admin Chlorhexidine Gluconate 15 ml 15 ml BID@08,20 MT 09/30/16 20:00 10/04/16 07:49 Propofol 100 ml @ 0 mls/hr TITRATE IV 09/30/16 17:45 10/04/16 03:46 (fentaNYL DRIP) 250 ml @ 0 mls/hr TITRATE IV 09/30/16 17:45 10/03/16 23:14 (NS Flush) 2 ml UNSCH PRN IV FLUSH 09/30/16 17:45 (NS Flush) 2 ml BID IV FLUSH 09/30/16 21:00 10/04/16 07:50 (Tylenol) 650 mg Q6H PRN PO 09/30/16 17:45 10/04/16 03:03 (Protonix Inj) 40 mg DAILY IV 10/01/16 09:00 10/04/16 07:49 (Tears Naturale Opth Soln) 1 drop TID EACH EYE 09/30/16 18:00 10/04/16 07:49 (Zofran Inj) 4 mg Q6H PRN IV 09/30/16 17:45 (Colace Liq) 100 mg Q12H G-TUBE 09/30/16 20:00 10/04/16 07:49 (Senna Liq) 17.6 mg Q12H PRN G-TUBE 09/30/16 17:45 Miscellaneous Information 1 Q361D XX 09/30/16 17:45 09/30/16 17:45 (Chlorhexidine 2% Cloth) 3 pack Taper DAILY@04 TOP 10/01/16 04:00 09/27/17 03:59 10/04/16 03:04 (Chlorhexidine 2% Cloth) 3 pack UNSCH PRN TOP 09/30/16 17:45 (D50w (Vial) Inj) 50 ml UNSCH PRN IV 09/30/16 18:00 (Glucagon Inj) 1 mg UNSCH PRN OTHER 09/30/16 18:00 Insulin Human Regular 1 1 Q6HR SQ 09/30/16 18:00 10/03/16 23:16 (Levophed Inj/NS 250 ml Inj) 254 ml @ 0 mls/hr TITRATE IV 10/01/16 04:15 10/03/16 23:19 (SEROquel) 50 mg Q8HR PO 10/02/16 08:00 10/04/16 06:14 Propranolol HCl 10 mg 10 mg Q8H PO 10/04/16 08:00 10/04/16 08:20 (Prostaphlin Inj/ NS Inj) 100 ml @ 200 mls/hr Q4H IV 10/04/16 10:30 UNV (Elliott Fragoso) Medical Decision Making MDM Remarks Impression: Multiple acute septic CVAs Cerebral edema Small subarachnoid hemorrhage Midline shift, 3 mm Metabolic encephalopathy Septic shock Infective endocarditis Sodium 153 Leukocytosis with interval worsening Blood cultures & sputum from both growing Staph aureus Blood cultures from & with Gram positive cocci CT brain demonstrates multiple evolving lesions consistent with infarcts Neuro exam essentially unchanged (Elliott Fragoso) Plan Plan Remarks Stat CT brain for any further decline in neurological status Frequent neuro checks 3% saline PRN to keep sodium level at 155 Monitor sodium levels Critical care management by [employer] Coiner Antibiotics per Infectious Disease (Elliott Fragoso) Attending Statement I have personally seen and examined the patient on 10/04/16. Pertinent documentation and study results have been reviewed by the undersigned. I have personally developed the treatment plan and performed medical decision making. Agree with findings, exam, and treatment plan as noted above. Opens his eyes with moderate stimulation. Not following commands Pupils equal and reactive Sodium remains low 150s. Stable neurologic function. Edema improving on most recent scan Can allow sodium to normalize at this point Follow-up imaging depending on clinical status (Pino Michelle MD) Elliott Fragoso October 04, 2016 10:25 Pino Michelle MD October 04, 2016 20:03
--- NOTE | 2016-10-04 10:39 | HHI.IDPN ---
Note Infectious Disease Note Patient is on the vent 30% FIO2. Sedated. Becomes agitated when sedation is weaned. Off Levophed. Not moving LUE. Febrile. temp in 100 range. Tachycardic. Tolerated Oxacillin dose without reaction. Sputum has staph aureus. Blood cultures 09/30 Staph aureus in 5 of 6 bottles. Blood culture 10/02 positive. staph aureus. Blood culture 10/03 positive. staph aureus. Spoke to his mom Felicita Roberts about his drug allergies. She reports that he had a reaction to penicillin in his early teens but he has been able to tolerate amoxicillin and ampicillin without difficulty when he goes to the dentist. Patient was brought to the emergency department with altered mental status. Was evaluated for rash. Medicines in weeks before admission: Clindamycin, Doxycycline, acyclovir, Adderral, Tylenol, prednisone, omeprazole, Ibuprofen. PAST MEDICAL HISTORY 1. Substance abuse. The patient was in rehabilitation 1 year ago. 2. ADHD. 3. Degenerative disk disease. ALLERGIES Reportedly the patient is allergic to SULFA, PENICILLIN, TORADOL, CODEINE. ANTIBIOTICS: 1. Ceftriaxone intravenous. 2. Vancomycin intravenous. OBJECTIVE: Vital Signs Date Time Temp Pulse Resp B/P Pulse Ox O2 Delivery O2 Flow Rate FiO2 10/04/16 10:00 113 10/04/16 08:05 100 30 10/04/16 08:00 120 10/04/16 08:00 30 10/04/16 08:00 100.3 117 14 127/58 100 10/04/16 06:00 102 10/04/16 04:52 97 30 10/04/16 04:00 30 10/04/16 04:00 116 10/04/16 04:00 100.8 116 17 106/52 99 10/04/16 02:00 120 10/04/16 01:03 99 30 10/04/16 00:00 30 10/04/16 00:00 100.5 116 14 124/63 99 10/04/16 00:00 116 10/03/16 22:00 104 10/03/16 21:12 95 30 10/03/16 20:53 16 10/03/16 20:00 100.9 128 15 122/52 100 10/03/16 20:00 30 10/03/16 20:00 128 10/03/16 18:01 121 10/03/16 16:01 110 10/03/16 16:01 99.3 110 16 121/63 100 10/03/16 16:01 30 10/03/16 15:50 0 30 10/03/16 14:07 131 10/03/16 12:00 122 10/03/16 12:00 100.5 122 14 118/53 100 10/03/16 12:00 30 10/03/16 11:37 100 30 10/03/16 10/03/16 10/04/16 15:00 23:00 07:00 Intake Total 1416 ml 1176 ml 1232 ml Output Total 1750 ml 1230 ml 1385 ml Balance -334 ml -54 ml -153 ml Intake IV Total 807 ml 713 ml 797 ml Tube Feeding 399 ml 463 ml 435 ml Other 210 ml Output Urine Total 1750 ml 1230 ml 1385 ml # Bowel Movements 0 0 Laboratory Tests Test 10/03/16 10/04/16 05:00 05:00 White Blood Count 20.2 TH/MM3 25.2 TH/MM3 Red Blood Count 2.96 MIL/MM3 2.87 MIL/MM3 Hemoglobin 8.6 GM/DL 8.3 GM/DL Hematocrit 26.1 % 25.1 % Mean Corpuscular Volume 88.1 FL 87.7 FL Mean Corpuscular Hemoglobin 29.1 PG 28.9 PG Mean Corpuscular Hemoglobin 33.0 % 32.9 % Concent Red Cell Distribution Width 14.5 % 14.8 % Platelet Count 132 TH/MM3 150 TH/MM3 Mean Platelet Volume 8.5 FL 8.3 FL Neutrophils (%) (Auto) 86.5 % 88.6 % Lymphocytes (%) (Auto) 8.5 % 7.5 % Monocytes (%) (Auto) 4.1 % 2.9 % Eosinophils (%) (Auto) 0.6 % 0.8 % Basophils (%) (Auto) 0.3 % 0.2 % Neutrophils # (Auto) 17.5 TH/MM3 22.4 TH/MM3 Lymphocytes # (Auto) 1.7 TH/MM3 1.9 TH/MM3 Monocytes # (Auto) 0.8 TH/MM3 0.7 TH/MM3 Eosinophils # (Auto) 0.1 TH/MM3 0.2 TH/MM3 Basophils # (Auto) 0.1 TH/MM3 0.0 TH/MM3 CBC Comment DIFF FINAL AUTO DIFF Differential Comment FINAL DIFF MANUAL Differential Total Cells 100 Counted Neutrophils % (Manual) 82 % Band Neutrophils % 1 % Lymphocytes % 9 % Monocytes % 1 % Eosinophils % 2 % Neutrophils # (Manual) 22.2 TH/MM3 Metamyelocytes 2 % Myelocytes 3 % Platelet Estimate NORMAL Platelet Morphology Comment NORMAL Red Cell Morphology Comment NORMAL Laboratory Tests Test 10/02/16 10/02/16 10/03/16 10/04/16 12:30 19:35 05:00 05:00 Sodium Level 157 MEQ/L 156 MEQ/L 155 MEQ/L 153 MEQ/L Serum Osmolality 335 MOSM/KG 329 MOSM/KG Potassium Level 4.1 MEQ/L 3.9 MEQ/L Chloride Level 120 MEQ/L 116 MEQ/L Carbon Dioxide Level 28.9 MEQ/L 33.0 MEQ/L Anion Gap 6 MEQ/L 4 MEQ/L Blood Urea Nitrogen 20 MG/DL 18 MG/DL Creatinine 0.81 MG/DL 0.73 MG/DL Estimat Glomerular Filtration 115 ML/MIN 130 ML/MIN Rate Random Glucose 197 MG/DL 150 MG/DL Calcium Level 8.6 MG/DL 8.3 MG/DL Microbiology Date/Time Procedure Status Source Growth 10/02/16 12:27 Aerobic Blood Culture - Preliminary Resulted Blood Peripheral Gram Positive Cocci 10/02/16 12:27 Anaerobic Blood Culture - Preliminary Resulted Blood Peripheral NO GROWTH IN 1 DAY 10/03/16 09:07 Aerobic Blood Culture - Preliminary Resulted Blood Peripheral Gram Positive Cocci 10/03/16 09:07 Anaerobic Blood Culture Resulted Blood Peripheral Pending 10/03/16 09:11 Aerobic Blood Culture - Preliminary Resulted Blood Peripheral Gram Positive Cocci 10/03/16 09:11 Anaerobic Blood Culture Resulted Blood Peripheral Pending Vital Signs Date Time Temp Pulse Resp B/P Pulse Ox O2 Delivery O2 Flow Rate FiO2 10/03/16 10:05 100.3 10/03/16 10:05 120 10/03/16 09:30 100 100 10/03/16 08:10 100 30 10/03/16 08:00 30 10/03/16 08:00 120 10/03/16 08:00 99.9 128 16 118/59 99 10/03/16 06:00 108 10/03/16 04:23 100 30 10/03/16 04:00 30 10/03/16 04:00 99.2 100 17 118/56 100 10/03/16 04:00 100 10/03/16 02:42 16 10/03/16 02:00 120 10/03/16 00:59 100 30 10/03/16 00:00 100.6 120 14 128/60 100 10/03/16 00:00 120 10/03/16 00:00 30 10/02/16 22:00 122 10/02/16 20:46 100 30 10/02/16 20:00 30 10/02/16 20:00 102 10/02/16 20:00 100.5 102 20 108/54 99 10/02/16 18:00 112 10/02/16 17:00 101.6 10/02/16 16:21 100 30 10/02/16 16:00 30 10/02/16 16:00 101.5 116 16 107/50 98 10/02/16 16:00 116 10/02/16 14:03 110 10/02/16 12:02 100.6 122 19 115/49 100 10/02/16 12:02 30 10/02/16 12:02 122 10/02/16 10/02/16 10/03/16 15:00 23:00 07:00 Intake Total 1138 ml 1539 ml 1412 ml Output Total 630.0 ml 1360 ml 1515 ml Balance 508.0 ml 179 ml -103 ml Intake IV Total 1054 ml 1135 ml 1011 ml Tube Feeding 24 ml 254 ml 401 ml Tube Irrigant 60 ml Other 60 ml 90 ml Output Urine Total 575 ml 1360 ml 1515 ml Gastric Drainage Total 50 ml Tube Feeding Residual Discard 5.0 ml # Bowel Movements 0 0 Laboratory Tests Test 10/02/16 10/03/16 03:15 05:00 White Blood Count 17.0 TH/MM3 20.2 TH/MM3 Red Blood Count 2.85 MIL/MM3 2.96 MIL/MM3 Hemoglobin 8.5 GM/DL 8.6 GM/DL Hematocrit 25.2 % 26.1 % Mean Corpuscular Volume 88.3 FL 88.1 FL Mean Corpuscular Hemoglobin 29.6 PG 29.1 PG Mean Corpuscular Hemoglobin 33.5 % 33.0 % Concent Red Cell Distribution Width 14.7 % 14.5 % Platelet Count 115 TH/MM3 132 TH/MM3 Mean Platelet Volume 8.4 FL 8.5 FL Neutrophils (%) (Auto) 86.5 % Lymphocytes (%) (Auto) 8.5 % Monocytes (%) (Auto) 4.1 % Eosinophils (%) (Auto) 0.6 % Basophils (%) (Auto) 0.3 % Neutrophils # (Auto) 17.5 TH/MM3 Lymphocytes # (Auto) 1.7 TH/MM3 Monocytes # (Auto) 0.8 TH/MM3 Eosinophils # (Auto) 0.1 TH/MM3 Basophils # (Auto) 0.1 TH/MM3 CBC Comment DIFF FINAL Differential Comment IMAGING: Head CT 10/03/16 0945 Signed Impressions: Service Date/Time: Monday, October 03, 2016 09:51 - CONCLUSION: 1. Multiple foci of low attenuation seen within the cerebral and cerebellar hemispheres consistent with evolving infarcts. Mykel Cantu MD Chest X-Ray 10/01/16 0000 Signed Impressions: Service Date/Time: Saturday, October 01, 2016 05:10 - CONCLUSION: Slight worsening bilateral perihilar infiltrates. 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 Please see above. No mass or evidence of abscess. 4 mm of leftward midline shift. Small subarachnoid blood. Michael Freitas MD Renal Ultrasound 09/30/16 0000 Signed Impressions: Service Date/Time: Friday, September 30, 2016 18:45 - CONCLUSION: Ultrasound appearance of the kidneys within normal limits. Jerez catheter in the urinary bladder. Nonspecific splenomegaly incidentally noted. Michael Freitas MD Head Magnetic Resonance Angiography 09/30/16 0000 Signed Impressions: Service Date/Time: Friday, September 30, 2016 17:42 - CONCLUSION: No occlusion, aneurysm or other acute intracranial vascular abnormality demonstrated. Michael Freitas MD PHYSICAL EXAMINATION GENERAL: Patient is sedated. On vent. HEENT: No icterus. Positive conjunctival erythematous lesions at the lower eyelids. Oropharynx: dry mucosa. NECK: No palpable adenopathy. No swelling. LUNGS: Basilar rhonchi. HEART: 3/6 systolic murmur at the left sternal border. ABDOMEN: Bowel sounds are present, soft, flat, nontender. EXTREMITIES: No clubbing or cyanosis or edema. Embolic purpuric lesions at the plantar aspect of the 4th and 5th toe on the left and the great toe on the right and several pinpoint purpuric lesions at the base of the foot beyond the toe plantar aspect. SKIN: Fading rash at the feet dorsum. There is peeled skin at the plantar aspect of both feet which is dried. Resolved erythema at the arms. There is no erythema at the chest, trunk, neck or face. The lower extremities have no edema. IMPRESSION 1. Septic shock due to Staph aureus 2. Acute endocarditis. Telida aortic valve. Staph aureus. 3. Acute respiratory failure. 4. Bilateral lung infiltrates, probably secondary to septic emboli./ PNA Staph aureus. 5. 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 6. History of IV drug abuse. Unknown current use status. 7. Antibiotic allergies. The patient reportedly is allergic to penicillin and sulfa. Confirmed with his mom who reported to me that he has been able to tolerate Amoxicillin. 8. Recent drug rash. It is not clear what antibiotic the patient received prior to development of the rash and this is yet to be definitively confirmed. RECOMMENDATIONS: 1. Continue Vancomycin. 2. Stop Ceftriaxone. 3. Begin Oxacillin 2 grams Q 4 hours. 4. Repeat blood culture. 5. Monitor temps. 6. Monitor clinical status. Nemesio Jackson MD October 04, 2016 10:39
[2016-10-04] MEDS: OXACILLIN INJ 2 GM in SODIUM CHLORIDE 0.9% INJ 100 ML IV SCH ×4 (11:10→22:59)
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
[2016-10-04] MEDS: fentaNYL DRIP 250 ML IV SCH (14:11)
--- NOTE | 2016-10-04 16:17 | MG ---
cc: WILY CARLSON M.D. Lab No: [id number] Date: Age: 26 Sex: M Race: HISTORY: 26-year-old man intubated on Diprivan, Fentanyl, agitated evolving strokes, substance abuse, Seroquel, DESCRIPTION OF THE RECORDING: A 10 hertz 60 microvolt posterior and diffuse rhythm is noted at times. This is intermixed with some diffuse theta slowing down to 5 hertz. The recording overall is synchronous and symmetric. Some delta slowing is occasionally noted. No epileptiform or seizure activity is seen. Photic stimulation was performed without significant posterior driving. Hyperventilation was not performed. IMPRESSION: Some diffuse slowing consistent with a moderate diffuse encephalopathy but likely medication effect. I did not see any focal abnormalities. No seizure activity was seen. MD MARTINE Livingston/PAULA /3:09 PM /4:13 PM
[2016-10-04] MEDS: NOREPINEPHRINE INJ 4 MG in SODIUM CHLOR 0.9% 250 ML INJ 250 ML IV SCH (23:46)
[2016-10-05] VITALS (18 sets, daily range): BP systolic 116–151; BP diastolic 46–61; PULSE 87–122; RESP 14–19; TEMP 99.5–101; O2SAT 98–100
[2016-10-05] MEDS: PROPOFOL 1000 MG/100 ML INJ 100 ML IV SCH ×4 (01:32→16:35)
[2016-10-05] MEDS: fentaNYL DRIP 250 ML IV SCH ×2 (01:33→11:33)
[2016-10-05] MEDS: OXACILLIN INJ 2 GM in SODIUM CHLORIDE 0.9% INJ 100 ML IV SCH ×6 (03:22→22:01)
[2016-10-05] MEDS: CHLORHEXIDINE GLUCONATE 2 % 1 PACK (2 CLOTHS) TOP SCH (03:23)
[2016-10-05] MEDS: RESP: ALBUTEROL 2.5 MG/IPRATROPIUM 0.5 MG NEB (SCH) INH ×4 (04:26→20:12)
[2016-10-05 04:54] LABS: HEMATOCRIT 23.9 % (39.0-51.0); MEAN CELL VOLUME 86.8 FL (80.0-100.0); MEAN CORPUSCULAR HEMOGLOBIN 29.8 PG (27.0-34.0); MEAN CORPUSCULAR HGB CONC 34.3 % (32.0-36.0); PLATELET COUNT 166 TH/MM3 (150-450); RED BLOOD COUNT 2.75 MIL/MM3 (4.50-5.90); RED CELL DISTRIBUTION WIDTH 14.3 % (11.6-17.2); REVIEW FLAG FINAL; WHITE BLOOD COUNT 22.5 TH/MM3 (4.0-11.0)
[2016-10-05 05:19] LABS: BICARBONATE 34.2 MEQ/L (21.0-32.0); POTASSIUM 3.7 MEQ/L (3.5-5.1)
[2016-10-05] MEDS: INSULIN NovoLIN REGULAR SUPPLEMENTAL SCALE SQ SCH ×4 (05:26→23:48)
[2016-10-05] MEDS: QUEtiapine FUMARATE 25 MG TAB PO SCH ×3 (06:04→22:00)
[2016-10-05] MEDS: SODIUM CHLORIDE 0.9% FLUSH 10 ML FLUSH IV FLUSH SCH ×2 (09:00→21:00)
[2016-10-05] MEDS: DOCUSATE SODIUM 100 MG/10 ML UDC G-TUBE SCH ×2 (09:05→20:34)
[2016-10-05] MEDS: PANTOPRAZOLE SODIUM 40 MG VIAL IV SCH (09:05)
[2016-10-05] MEDS: PROPRANOLOL HCL 10 MG TAB PO SCH ×3 (09:05→23:50)
[2016-10-05] MEDS: CHLORHEXIDINE 0.12% (ORAL KIT) 15 ML CUP MT SCH ×2 (09:06→20:00)
[2016-10-05] MEDS: ARTIFICIAL TEARS OPTH SOLN 15 ML BTL EACH EYE SCH ×3 (09:06→17:12)
[2016-10-05] MEDS: ACETAMINOPHEN 325 MG TAB PO PRN ×2 (09:08→17:50)
--- NOTE | 2016-10-05 11:03 | HHI.NSPN ---
(Elliott Fragoso Zhou KELLEYP) Note Status Status: Progress Note (Elliott Fragoso) Interval History Interval History 10/01: The HPI is obtained from a review of the EMR due to the patient's altered mental status and intubation. This is a 26-year-old male who was found by his landlord on with altered mental status and called EMS. Upon arrival of EMS the patient had a GCS of 10. In the emergency department the patient was hypotensive and tachycardiac. He was emergently intubated for airway protection. His CT brain demonstrated significant areas of infarction to the right frontal, temporal and cerebellar regions as well as a small subarachnoid haemorrhage to the superior right parietal region. There was a 3 mm midline shift as well as effacement on the right. The patient's laboratory data is significant for white blood cell count of 19,000, haemoglobin of 9.9, lactate of 3.7, creatinine 1.69, CK 372, troponin of 11.9. His urine drug screen is positive for opiates and amphetamines. He was subsequently admitted to the [facility] for further management and monitoring. Per EMS and ED reports, patient was seen approximately 10 days prior to admission by an unknown physician in the clinic and given antibiotic for fever. After taking the antibiotic, the patient had a new red rash on his hands and healing on his feet. He he was seen in the emergency department 2 days prior to admission for low-grade fever and congestion, generalized weakness, lightheadedness. At that time she was given prescription for prednisone 40 mg daily for 5 days. The patient's landlord apparently found the patient today with altered mental status and called EMS. When EMS arrived, his GCS was 10. There is reports that the patient has a history of substance abuse and was recently in rehabilitation. The patient's roommate confirmed to the [employer] that the patient had recently been in rehabilitation due to a history of substance abuse. The roommate did not think he was doing any illicit drugs recently. 10/02: The patient remains intubated & sedated. He withdraws to painful stimuli to the extremities. 10/03: The patient is sedated with propofol & fentanyl. Nursing reports that he does move the RUE mostly but will move the BLE when the sedation is off. Nursing reported no movement of the LUE. When EEG was at the bedside with the sedation down the patient became quite agitated and was kicking out. 10/04: The patient remains sedated. Nursing states he continues to be agitated when the sedation is off. A CT brain yesterday demonstrated multiple evolving infarcts. 10/05: The patient is still sedated with propofol & fentanyl. He does not appear to be responding to verbal commands. (Elliott Fragoso) Labs, Micro, & Vital Signs Results Allergies Coded Allergies Type Severity Reaction Last Updated Verified Hydrocodone Allergy Unknown Nausea/Vomiting 10/04/16 Yes Sulfa Allergy Unknown 09/30/16 Yes Toradol Allergy Unknown 09/30/16 Yes Recent Impressions Head CT 10/03/16 0945 Signed Impressions: Service Date/Time: Monday, October 03, 2016 09:51 - CONCLUSION: 1. Multiple foci of low attenuation seen within the cerebral and cerebellar hemispheres consistent with evolving infarcts. Mykel Cantu MD ///// 05:59 17:59 05:59 17:59 05:59 17:59 Intake Total 2056 ml 2223 ml 1847 ml 1603 ml 1548 ml 660 ml Output Total 1840 ml 2610 ml 1940 ml 2089 ml 1365 ml 745 ml Balance 216 ml -387 ml -93 ml -486 ml 183 ml -85 ml Intake IV Total 1433 ml 1353 ml 1152 ml 734 ml 845 ml 373 ml Tube Feeding 473 ml 660 ml 695 ml 619 ml 703 ml 287 ml Tube Irrigant 60 ml Other 90 ml 210 ml 250 ml Output Urine Total 1840 ml 2610 ml 1940 ml 2089 ml 1365 ml 745 ml # Bowel Movements 0 0 0 0 0 0 Laboratory Tests Test 10/02/16 10/02/16 10/03/16 10/04/16 12:30 19:35 05:00 05:00 Sodium Level 157 MEQ/L 156 MEQ/L 155 MEQ/L 153 MEQ/L Serum Osmolality 335 MOSM/KG 329 MOSM/KG White Blood Count 20.2 TH/MM3 25.2 TH/MM3 Red Blood Count 2.96 MIL/MM3 2.87 MIL/MM3 Hemoglobin 8.6 GM/DL 8.3 GM/DL Hematocrit 26.1 % 25.1 % Mean Corpuscular Volume 88.1 FL 87.7 FL Mean Corpuscular Hemoglobin 29.1 PG 28.9 PG Mean Corpuscular Hemoglobin 33.0 % 32.9 % Concent Red Cell Distribution Width 14.5 % 14.8 % Platelet Count 132 TH/MM3 150 TH/MM3 Mean Platelet Volume 8.5 FL 8.3 FL Neutrophils (%) (Auto) 86.5 % 88.6 % Lymphocytes (%) (Auto) 8.5 % 7.5 % Monocytes (%) (Auto) 4.1 % 2.9 % Eosinophils (%) (Auto) 0.6 % 0.8 % Basophils (%) (Auto) 0.3 % 0.2 % Neutrophils # (Auto) 17.5 TH/MM3 22.4 TH/MM3 Lymphocytes # (Auto) 1.7 TH/MM3 1.9 TH/MM3 Monocytes # (Auto) 0.8 TH/MM3 0.7 TH/MM3 Eosinophils # (Auto) 0.1 TH/MM3 0.2 TH/MM3 Basophils # (Auto) 0.1 TH/MM3 0.0 TH/MM3 CBC Comment DIFF FINAL AUTO DIFF Differential Comment FINAL DIFF MANUAL Potassium Level 4.1 MEQ/L 3.9 MEQ/L Chloride Level 120 MEQ/L 116 MEQ/L Carbon Dioxide Level 28.9 MEQ/L 33.0 MEQ/L Anion Gap 6 MEQ/L 4 MEQ/L Blood Urea Nitrogen 20 MG/DL 18 MG/DL Creatinine 0.81 MG/DL 0.73 MG/DL Estimat Glomerular Filtration 115 ML/MIN 130 ML/MIN Rate Random Glucose 197 MG/DL 150 MG/DL Calcium Level 8.6 MG/DL 8.3 MG/DL Differential Total Cells 100 Counted Neutrophils % (Manual) 82 % Band Neutrophils % 1 % Lymphocytes % 9 % Monocytes % 1 % Eosinophils % 2 % Neutrophils # (Manual) 22.2 TH/MM3 Metamyelocytes 2 % Myelocytes 3 % Platelet Estimate NORMAL Platelet Morphology Comment NORMAL Red Cell Morphology Comment NORMAL Test 10/05/16 04:40 White Blood Count 22.5 TH/MM3 Red Blood Count 2.75 MIL/MM3 Hemoglobin 8.2 GM/DL Hematocrit 23.9 % Mean Corpuscular Volume 86.8 FL Mean Corpuscular Hemoglobin 29.8 PG Mean Corpuscular Hemoglobin 34.3 % Concent Red Cell Distribution Width 14.3 % Platelet Count 166 TH/MM3 Mean Platelet Volume 8.1 FL Sodium Level 148 MEQ/L Potassium Level 3.7 MEQ/L Chloride Level 109 MEQ/L Carbon Dioxide Level 34.2 MEQ/L Anion Gap 5 MEQ/L Blood Urea Nitrogen 17 MG/DL Creatinine 0.67 MG/DL Estimat Glomerular Filtration 143 ML/MIN Rate Random Glucose 160 MG/DL Calcium Level 7.9 MG/DL Constitutional Vital Signs Date Time Temp Pulse Resp B/P Pulse Ox O2 Delivery O2 Flow Rate FiO2 10/05/16 10:08 14 10/05/16 10:00 96 10/05/16 08:59 98 30 10/05/16 08:00 99.7 116 14 151/58 100 10/05/16 08:00 30 10/05/16 08:00 116 10/05/16 06:00 122 10/05/16 04:00 30 10/05/16 04:00 99.8 108 14 134/46 100 10/05/16 04:00 108 10/05/16 02:00 100 10/05/16 00:17 100 30 10/05/16 00:00 100.5 90 14 116/58 99 10/05/16 00:00 90 10/05/16 00:00 30 10/04/16 22:00 118 10/04/16 20:00 100.0 118 18 144/56 100 10/04/16 20:00 118 10/04/16 20:00 30 10/04/16 19:43 100 30 10/04/16 18:31 100.0 10/04/16 18:14 106 10/04/16 16:54 100 30 10/04/16 16:00 100.5 103 14 145/46 100 10/04/16 16:00 30 10/04/16 16:00 103 10/04/16 14:00 106 10/04/16 13:15 100 30 10/04/16 12:00 30 10/04/16 12:00 100.5 100 17 125/56 100 10/04/16 12:00 100 10/05/16 06:59 Intake Total 3238 ml Output Total 3354 ml Balance -116 ml (Elliott Fragoso) Review of Systems/Exam ROS Unable to obtain a ROS due to the patient's mental status, sedation & intubation. Exam GENERAL: Sedated & intubated, no agitation. HEENT: Normocephalic, atraumatic. PERRL 3 mm, sluggish. Mucous membranes moist, orally intubated, OGT present. NECK: No nuchal rigidity, no JVD, trachea midline. CHEST: CTAB w/o W/R/R, equal excursion, non-laboured, orally intubated & mechanically ventilated. CARDIOVASCULAR: S1S2 w/RRR, grade II/ murmur, radial & pedal pulses 2+ bilaterally, cap refill < 2 sec, 1+ edema at ankles but less to feet. Monitor is sinus rhythm w/o any ectopy noted. ABDOMEN: Abdomen soft, nontender, positive bowel sounds, OGT with enteral feeds. GENITOURINARY: Jerez catheter to BSD. MUSCULOSKELETAL: Moves the RUE & BLE to stimuli, no evident TTP, no evident deformity or clubbing. INTEGUMENTARY: The nonblanching macular rash to the feet & ankle is significantly improved, still with the scaling skin. The tip of the right great toe does have several very small necrotic areas. NEUROLOGICAL: Sedated & intubated, GCS 7T (E1 V1T M5) No eye opening He is not following any commands, he withdraws the RUE & BLE to noxious stimuli to any nail bed although it is trace movement to the LLE but there is no movement of the LUE, he also will grimace to the stimuli. The patient did move his hand after I placed my hand in his but it seemed to be more reactionary than responding to the command to squeeze since he did not try to squeeze after that. Unable to assess for sensory deficit due to mental status (Elliott Fragoso) Medications Current Medications Current Medications Medications (Trade) Dose Ordered Sig/Beena Route Start Time Stop Time Status Last Admin Chlorhexidine Gluconate 15 ml 15 ml BID@08,20 MT 09/30/16 20:00 10/05/16 09:06 Propofol 100 ml @ 0 mls/hr TITRATE IV 09/30/16 17:45 10/05/16 06:04 (fentaNYL DRIP) 250 ml @ 0 mls/hr TITRATE IV 09/30/16 17:45 10/05/16 01:33 (NS Flush) 2 ml UNSCH PRN IV FLUSH 09/30/16 17:45 (NS Flush) 2 ml BID IV FLUSH 09/30/16 21:00 10/04/16 19:56 (Tylenol) 650 mg Q6H PRN PO 09/30/16 17:45 10/05/16 09:08 (Protonix Inj) 40 mg DAILY IV 10/01/16 09:00 10/05/16 09:05 (Tears Naturale Opth Soln) 1 drop TID EACH EYE 09/30/16 18:00 10/05/16 09:06 (Zofran Inj) 4 mg Q6H PRN IV 09/30/16 17:45 (Colace Liq) 100 mg Q12H G-TUBE 09/30/16 20:00 10/05/16 09:05 (Senna Liq) 17.6 mg Q12H PRN G-TUBE 09/30/16 17:45 Miscellaneous Information 1 Q361D XX 09/30/16 17:45 09/30/16 17:45 (Chlorhexidine 2% Cloth) 3 pack Taper DAILY@04 TOP 10/01/16 04:00 09/27/17 03:59 10/05/16 03:23 (Chlorhexidine 2% Cloth) 3 pack UNSCH PRN TOP 09/30/16 17:45 (D50w (Vial) Inj) 50 ml UNSCH PRN IV 09/30/16 18:00 (Glucagon Inj) 1 mg UNSCH PRN OTHER 09/30/16 18:00 Insulin Human Regular 1 1 Q6HR SQ 09/30/16 18:00 10/03/16 23:16 (Levophed Inj/NS 250 ml Inj) 254 ml @ 0 mls/hr TITRATE IV 10/01/16 04:15 10/04/16 23:46 (SEROquel) 50 mg Q8HR PO 10/02/16 08:00 10/05/16 06:04 Propranolol HCl 10 mg 10 mg Q8H PO 10/04/16 08:00 10/05/16 09:05 (Prostaphlin Inj/ NS Inj) 100 ml @ 200 mls/hr Q4H IV 10/04/16 11:00 10/05/16 06:04 (Elliott Fragoso) Medical Decision Making MDM Remarks Impression: Multiple acute septic CVAs Cerebral edema Small subarachnoid hemorrhage Midline shift, 3 mm Metabolic encephalopathy Septic shock Infective endocarditis Sodium 148 Leukocytosis with interval worsening Blood cultures & sputum from both growing Staph aureus Blood cultures from with Staph aureus Blood cultures from with Gram positive cocci CT brain demonstrates multiple evolving lesions consistent with infarcts Neuro exam essentially unchanged (Elliott Fragoso) Plan Plan Remarks Stat CT brain for any further decline in neurological status Frequent neuro checks 3% saline PRN to keep sodium level at 155 Monitor sodium levels Critical care management by [employer] Antibiotics per Infectious Disease (Elliott Fragoso) Attending Statement I have personally seen and examined the patient on 10/05/16. Pertinent documentation and study results have been reviewed by the undersigned. I have personally developed the treatment plan and performed medical decision making. Agree with findings, exam, and treatment plan as noted above. Neurologic exam remained stable Most recent CT scan with improving edema Recheck CT scan depending on clinical course No surgical intervention anticipated at this time in regards to the cerebral edema. (Pino Michelle MD) Elliott Fragoso October 05, 2016 11:03 Pino Michelle MD October 06, 2016 22:41
--- NOTE | 2016-10-05 11:10 | HHI.HCPN ---
Reason for visit a. To assist with evaluation and management of symptoms including:dyspnea, encephalopathy b. To assist medical decision maker(s) with: better understanding of current medical conditions; weighing benefits/burdens of medical treatment options; making medical treatment decisions. (Sandy Liu) Subjective/Interval History Patient seen today to follow-up on comfort, provided medical update to decision makers. Pt stable overnight. Remains on fentanyl, diprivan for sedation. nursing reports when sedation lightened significant agitation/tachycardia--up [id number]. Nursing reports spont movement of RUE, BLE localize, slight withdrawal LUE to pain. low grade fever, Tmax 100.5, remains on Vancomycin, Oxacillin per ID. Cultures persistently +gram positive cocci. Repeat cult 10/04 pending. Tolerating TF at goal rate/No bowel movement recorded since admission. Nursing reports +flatus. Patient seen in room with Angel SAMSON. Sister Anay at bedside; provided update of current conditions/ assessment, treatments. She indicates patient mother was in earlier today - they cont to visit most of the day. She understands patient remains stable with no significant changes. D/w primary nurse.Nursing to administer PRN senna today for no BM. Nursing to notify when mother arrives if she would like follow up visit from palliative. To my exam- (on sedation- 200mcgs fentanyl/hr, 30mcgs/kg/min diprivan) pt no eye opening , does blink/grimace when attempt to examine pupils. Spont movement RUE, no movement to pain LUE. Localizes to touch/pain BLE. Appears comfortable. . (Sandy Liu) Advance Directives Living Will: Never completed Health Care Surrogate: Never completed Durable Power of Farm Equipment Mechanic: Completed, but not made available (mother reports has POA, not clear if this includes medical decision making, awaiting copies of documents) (Sandy Liu) Objective Vital Signs Date Time Temp Pulse Resp B/P Pulse Ox O2 Delivery O2 Flow Rate FiO2 10/05/16 10:08 14 10/05/16 10:00 96 10/05/16 08:59 98 30 10/05/16 08:00 99.7 116 14 151/58 100 10/05/16 08:00 30 10/05/16 08:00 116 10/05/16 06:00 122 10/05/16 04:00 30 10/05/16 04:00 99.8 108 14 134/46 100 10/05/16 04:00 108 10/05/16 02:00 100 10/05/16 00:17 100 30 10/05/16 00:00 100.5 90 14 116/58 99 10/05/16 00:00 90 10/05/16 00:00 30 10/04/16 22:00 118 10/04/16 20:00 100.0 118 18 144/56 100 10/04/16 20:00 118 10/04/16 20:00 30 10/04/16 19:43 100 30 10/04/16 18:31 100.0 10/04/16 18:14 106 10/04/16 16:54 100 30 10/04/16 16:00 100.5 103 14 145/46 100 10/04/16 16:00 30 10/04/16 16:00 103 10/04/16 14:00 106 10/04/16 13:15 100 30 10/04/16 12:00 30 10/04/16 12:00 100.5 100 17 125/56 100 10/04/16 12:00 100 Intake & Output 10/05/16 10/05/16 07:00 19:00 Intake Total 1559 ml Output Total 1165 ml Balance 394 ml Intake IV Total 923 ml Tube Feeding 636 ml Output Urine Total 1165 ml # Bowel Movements 0 Physical Exam CONSTITUTIONAL/GENERAL: This is an adequately nourished patient, peaceful on mech vent TUBES/LINES/DRAINS: Lt SC central line. ETT, OGT, carrera catheter SKIN: No jaundice, or lesions. + slight peeling bottom feet/Embolic purpuric lesions on LT great toe. slight faint erythematous confluent rash top both feet- - resolving, very faint . No wounds seen anteriorly. Skin temperature appropriate. Not diaphoretic. CARDIOVASCULAR: Regular rate and rhythm without murmur. Peripheral pulses symmetric. no peripheral edema RESPIRATORY/CHEST: Symmetric, unlabored respirations on mech vent. Course air movement throughout lungs. breath sounds equal bilat GASTROINTESTINAL: Abdomen soft, nondistended. No palpable masses. No guarding. Bowel sounds present. TF infusing via OGT. GENITOURINARY: Without palpable bladder distension. Carrera catheter in place clear dark yellow urine. NEUROLOG[facility]: [facility]on sedation- 200mcgs fentanyl/hr, 30mcgs/kg/ min diprivan) no eye opening , does blink/grimace when attempt to examine pupils. Spont movement RUE, no movement to pain LUE. Localizes to touch/pain BLE. Appears comfortable. PSYCHIATRIC: No obvious anxiety/depression-- limited assess due to condition/ sedation . (Sandy Liu) Diagnostic Tests Laboratory Laboratory Tests Test 10/02/16 10/02/16 10/03/16 10/04/16 12:30 19:35 05:00 05:00 Sodium Level 157 MEQ/L 156 MEQ/L 155 MEQ/L 153 MEQ/L (136-145) (136-145) (136-145) (136-145) Serum Osmolality 335 MOSM/KG 329 MOSM/KG (275-295) (275-295) White Blood Count 20.2 TH/MM3 25.2 TH/MM3 (4.0-11.0) (4.0-11.0) Red Blood Count 2.96 MIL/MM3 2.87 MIL/MM3 (4.50-5.90) (4.50-5.90) Hemoglobin 8.6 GM/DL 8.3 GM/DL (13.0-17.0) (13.0-17.0) Hematocrit 26.1 % 25.1 % (39.0-51.0) (39.0-51.0) Mean Corpuscular Volume 88.1 FL 87.7 FL (80.0-100.0) (80.0-100.0) Mean Corpuscular Hemoglobin 29.1 PG 28.9 PG (27.0-34.0) (27.0-34.0) Mean Corpuscular Hemoglobin 33.0 % 32.9 % Concent (32.0-36.0) (32.0-36.0) Red Cell Distribution Width 14.5 % 14.8 % (11.6-17.2) (11.6-17.2) Platelet Count 132 TH/MM3 150 TH/MM3 (150-450) (150-450) Mean Platelet Volume 8.5 FL 8.3 FL (7.0-11.0) (7.0-11.0) Neutrophils (%) (Auto) 86.5 % 88.6 % (16.0-70.0) (16.0-70.0) Lymphocytes (%) (Auto) 8.5 % 7.5 % (9.0-44.0) (9.0-44.0) Monocytes (%) (Auto) 4.1 % (0.0-8.0) 2.9 % (0.0-8.0) Eosinophils (%) (Auto) 0.6 % (0.0-4.0) 0.8 % (0.0-4.0) Basophils (%) (Auto) 0.3 % (0.0-2.0) 0.2 % (0.0-2.0) Neutrophils # (Auto) 17.5 TH/MM3 22.4 TH/MM3 (1.8-7.7) (1.8-7.7) Lymphocytes # (Auto) 1.7 TH/MM3 1.9 TH/MM3 (1.0-4.8) (1.0-4.8) Monocytes # (Auto) 0.8 TH/MM3 0.7 TH/MM3 (0-0.9) (0-0.9) Eosinophils # (Auto) 0.1 TH/MM3 0.2 TH/MM3 (0-0.4) (0-0.4) Basophils # (Auto) 0.1 TH/MM3 0.0 TH/MM3 (0-0.2) (0-0.2) CBC Comment DIFF FINAL AUTO DIFF Differential Comment FINAL DIFF MANUAL Potassium Level 4.1 MEQ/L 3.9 MEQ/L (3.5-5.1) (3.5-5.1) Chloride Level 120 MEQ/L 116 MEQ/L (98-107) (98-107) Carbon Dioxide Level 28.9 MEQ/L 33.0 MEQ/L (21.0-32.0) (21.0-32.0) Anion Gap 6 MEQ/L (5-15) 4 MEQ/L (5-15) Blood Urea Nitrogen 20 MG/DL (7-18) 18 MG/DL (7-18) Creatinine 0.81 MG/DL 0.73 MG/DL (0.60-1.30) (0.60-1.30) Estimat Glomerular Filtration 115 ML/MIN 130 ML/MIN Rate (>89) (>89) Random Glucose 197 MG/DL 150 MG/DL (74-106) (74-106) Calcium Level 8.6 MG/DL 8.3 MG/DL (8.5-10.1) (8.5-10.1) Differential Total Cells 100 Counted Neutrophils % (Manual) 82 % (16-70) Band Neutrophils % 1 % (0-6) Lymphocytes % 9 % (9-44) Monocytes % 1 % (0-8) Eosinophils % 2 % (0-4) Neutrophils # (Manual) 22.2 TH/MM3 (1.8-7.7) Metamyelocytes 2 % (0-1) Myelocytes 3 % (0-0) Platelet Estimate NORMAL (NORMAL) Platelet Morphology Comment NORMAL (NORMAL) Red Cell Morphology Comment NORMAL (NORMAL) Test 10/05/16 04:40 White Blood Count 22.5 TH/MM3 (4.0-11.0) Red Blood Count 2.75 MIL/MM3 (4.50-5.90) Hemoglobin 8.2 GM/DL (13.0-17.0) Hematocrit 23.9 % (39.0-51.0) Mean Corpuscular Volume 86.8 FL (80.0-100.0) Mean Corpuscular Hemoglobin 29.8 PG (27.0-34.0) Mean Corpuscular Hemoglobin 34.3 % Concent (32.0-36.0) Red Cell Distribution Width 14.3 % (11.6-17.2) Platelet Count 166 TH/MM3 (150-450) Mean Platelet Volume 8.1 FL (7.0-11.0) Sodium Level 148 MEQ/L (136-145) Potassium Level 3.7 MEQ/L (3.5-5.1) Chloride Level 109 MEQ/L (98-107) Carbon Dioxide Level 34.2 MEQ/L (21.0-32.0) Anion Gap 5 MEQ/L (5-15) Blood Urea Nitrogen 17 MG/DL (7-18) Creatinine 0.67 MG/DL (0.60-1.30) Estimat Glomerular Filtration 143 ML/MIN Rate (>89) Random Glucose 160 MG/DL (74-106) Calcium Level 7.9 MG/DL (8.5-10.1) (Sandy Liu) Result Diagram: 10/05/16 0440 10/05/16 0440 Microbiology Microbiology Date/Time Procedure Status Source Growth 10/02/16 12:27 Aerobic Blood Culture - Final Resulted Blood Peripheral Staphylococcus Aureus 10/02/16 12:27 Anaerobic Blood Culture - Preliminary Resulted Blood Peripheral NO GROWTH IN 2 DAYS 10/03/16 09:07 Aerobic Blood Culture - Preliminary Resulted Blood Peripheral Gram Positive Cocci 10/03/16 09:07 Anaerobic Blood Culture - Preliminary Resulted Blood Peripheral NO GROWTH IN 1 DAY 10/03/16 09:11 Aerobic Blood Culture - Preliminary Resulted Blood Peripheral Gram Positive Cocci 10/03/16 09:11 Anaerobic Blood Culture - Preliminary Resulted Blood Peripheral NO GROWTH IN 1 DAY 10/04/16 12:19 Aerobic Blood Culture Received Blood Peripheral Pending 10/04/16 12:19 Anaerobic Blood Culture Received Blood Peripheral Pending Imaging Last Impressions Head CT 10/03/16 0945 Signed Impressions: Service Date/Time: Monday, October 03, 2016 09:51 - CONCLUSION: 1. Multiple foci of low attenuation seen within the cerebral and cerebellar hemispheres consistent with evolving infarcts. Mykel Cantu MD Chest X-Ray 10/01/16 0000 Signed Impressions: Service Date/Time: Saturday, October 01, 2016 05:10 - CONCLUSION: Slight worsening bilateral perihilar infiltrates. KJerson Basilio MD Brain MRI 09/30/16 1659 Signed Impressions: Service Date/Time: Friday, September 30, 2016 17:42 - CONCLUSION: Numerous bilateral cerebral and cerebellar acute or subacute infarcts that are most likely embolic. Please see above. No mass or evidence of abscess. 4 mm of leftward midline shift. Small subarachnoid blood. Michael Freitas MD Renal Ultrasound 09/30/16 0000 Signed Impressions: Service Date/Time: Friday, September 30, 2016 18:45 - CONCLUSION: Ultrasound appearance of the kidneys within normal limits. Carrera catheter in the urinary bladder. Nonspecific splenomegaly incidentally noted. Michael Freitas MD Head Magnetic Resonance Angiography 09/30/16 0000 Signed Impressions: Service Date/Time: Friday, September 30, 2016 17:42 - CONCLUSION: No occlusion, aneurysm or other acute intracranial vascular abnormality demonstrated. Michael Freitas MD Procedures 09/30le subclavian central line, left radial arterial line (Sandy Liu) Assessment and Plan Disease Oriented Problem List: (1) Intracranial hemorrhage (2) Sepsis (3) Elevated troponin (4) Subarachnoid hemorrhage (5) Cerebral edema (6) Metabolic encephalopathy (7) Acute respiratory failure with hypoxia (8) Septic shock due to Staphylococcus aureus (9) Rash and nonspecific skin eruption (10) Substance abuse Symptom Scale: (1) Dyspnea (2) Encephalopathy (3) Agitation (4) Constipation Pertinent Non-Medical Issues Psychosocial:originally from [place], lived in [place] . HS education. Was incarcerated and then in drug rehabilitation in [facility]. 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 Father (parents ) lived in [place] with support from family there. Supported by local friends, coworkers, apartment landlord. Spiritual:believes in God, no particular affiliation. would want ongoing quality process auditor support. Legal: Patient is not able to participate in decision-making due to clinical condition. He is not . Per [place] statutes his parents would be legal decision makers, mother is serving as primary supported by his sister and father. She reports she has POA paperwork. Ethical issues impacting care: Important Contacts mother Felicita Roberts [phone] (HCP) sister Elizabeth Rios [phone] father Pradeep Rios [phone] . 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 He is currently in multiorgan failure, critically ill. Possible he can recover with prolonged resuscitation , prolonged ICU course. Remains very high risk for further complications and setbacks though possible he can survive this initial injury/ illness. Code Status: Full Code Plan * Legal decision maker: Patient is not able to participate in decision-making due to clinical condition. He is not . Per [place] statutes his parents would be legal decision makers, mother is serving as primary supported by his sister and father. She reports she has POA paperwork. * Goals: Met w pt mother, father, sister at length 10/03.. Patient sister appears to have a reasonable understanding of conditions, prognosis. Patient mother appears to have a very simple understanding of conditions and prognosis. At this time goals are aggressive. Patient's mother is hoping for a miracle and wants to continue whatever measures available to help patient recover. They are open to ongoing to conversations as clinical course evolves. * CODE STATUS: full * SYMPTOMS: --dyspnea- intubated for AMS. remains on mech vent; sedated, no tachypnea observed or reported while on sedative- when lightened agitation/tachypnea -- agitation- hx substance abuse; hx ADD, on adderall. currently sedated with diprivan, fentanyl, agitation/tachycardia when sedation lightened; nursing titrating fentanyl as needed per critical care -- encephalopathy- multifactorial-- +sepsis, embolic CVA, hx substance abuse , EEG neg seizure -- constipation - no BM recorded since admission 10/01, has scheduled felisha, d/w clinical nursing instructor prn senna today. +flatus, + BS active; con to evaluate * Palliative care will continue to follow during hospital course as condition evolves, to assist patient/decision-maker with understanding of medical conditions, weighing benefits/burdens of treatment options, for clarification of goals of treatment. Additionally will assist with any symptoms of palliative concern (Sandy Liu) Attestation To help prompt me to consider important information that might be impacting today's encounter and assessment, information from prior notes written by myself or my colleagues may have been "brought forward" into today's note. My signature on this note, however, is an attestation that I personally performed the exam, history, and/or decision-making noted today, and, unless otherwise indicated, the interactions with patient, family, and staff as well as the review of records all occurred today. I also attest that the listed assessment and stated plan reflect my best clinical judgment today based on the combination of historical information, prior notes, and today's exam/ interactions. When time spent is documented, it refers only to time spent today by the signer, or if indicated, combined time spent today by collaborating physician/nurse practitioner. (Sandy Liu) Collaborating MD Comments . Chart reviewed. Case discussed with palliative care MUSIC COMPOSER. Above MUSIC COMPOSER note reviewed and I concur. . (Foster Marina MD) Sandy Liu October 05, 2016 11:10 Foster Marina MD October 09, 2016 16:41
[2016-10-05] MEDS: SENNOSIDES SYRUP 8.8 MG/5 ML CUP G-TUBE PRN (11:32)
[2016-10-05] MEDS: NOREPINEPHRINE INJ 4 MG in SODIUM CHLOR 0.9% 250 ML INJ 250 ML IV SCH (11:32)
--- NOTE | 2016-10-05 11:48 | HHI.IDPN ---
Note Infectious Disease Note Patient is on the vent. On Levophed 7mcg. Sedated. Becomes agitated when sedation is weaned. Still febrile. temp in 100 range. Has cooling blanket in place. Tolerating Oxacillin. Good urine output. Sputum has staph aureus. Blood cultures 09/30 Staph aureus in 5 of 6 bottles. Blood culture 10/02 positive. staph aureus. Blood culture 10/03 positive. staph aureus. Blood culture 10/04 negative x 1 day. Patient was brought to the emergency department with altered mental status. Was evaluated for rash at preceding ED evaluation 2 days prior. Medicines in weeks before admission: Clindamycin, Doxycycline, acyclovir, Adderral, Tylenol, prednisone, omeprazole, Ibuprofen. PAST MEDICAL HISTORY 1. Substance abuse. The patient was in rehabilitation 1 year ago. 2. ADHD. 3. Degenerative disk disease. ALLERGIES Reportedly the patient is allergic to SULFA, PENICILLIN, TORADOL, CODEINE. ANTIBIOTICS: Oxacillin. Current Medications Medications (Trade) Dose Ordered Sig/Beena Route PRN Reason Start Time Stop Time Status Last Admin Dose Admin Chlorhexidine Gluconate 15 ml 15 ml BID@08,20 MT 09/30/16 20:00 10/05/16 09:06 Propofol 100 ml @ 0 mls/hr TITRATE IV 09/30/16 17:45 10/05/16 11:33 Fentanyl Citrate (fentaNYL DRIP) 250 ml @ 0 mls/hr TITRATE IV 09/30/16 17:45 10/05/16 11:33 Sodium Chloride (NS Flush) 2 ml UNSCH PRN IV FLUSH FLUSH AFTER USING IV ACCESS 09/30/16 17:45 Sodium Chloride (NS Flush) 2 ml BID IV FLUSH 09/30/16 21:00 10/04/16 19:56 Acetaminophen (Tylenol) 650 mg Q6H PRN PO Fever > 100F 09/30/16 17:45 10/05/16 09:08 Pantoprazole Sodium (Protonix Inj) 40 mg DAILY IV 10/01/16 09:00 10/05/16 09:05 Artificial Tears (Tears Naturale Opth Soln) 1 drop TID EACH EYE 09/30/16 18:00 10/05/16 09:06 Ondansetron HCl (Zofran Inj) 4 mg Q6H PRN IV NAUSEA OR VOMITING 09/30/16 17:45 Docusate Sodium (Colace Liq) 100 mg Q12H G-TUBE 09/30/16 20:00 10/05/16 09:05 Sennosides (Senna Liq) 17.6 mg Q12H PRN G-TUBE CONSTIPATION 09/30/16 17:45 10/05/16 11:32 Miscellaneous Information 1 Q361D XX 09/30/16 17:45 09/30/16 17:45 Chlorhexidine Gluconate (Chlorhexidine 2% Cloth) 3 pack Taper DAILY@04 TOP 10/01/16 04:00 09/27/17 03:59 10/05/16 03:23 Chlorhexidine Gluconate (Chlorhexidine 2% Cloth) 3 pack UNSCH PRN TOP HYGIENIC CARE 09/30/16 17:45 Dextrose (D50w (Vial) Inj) 50 ml UNSCH PRN IV HYPOGLYCEMIA-SEE COMMENTS 09/30/16 18:00 Glucagon (Glucagon Inj) 1 mg UNSCH PRN OTHER HYPOGLYCEMIA-SEE COMMENTS 09/30/16 18:00 Insulin Human Regular 1 1 Q6HR SQ 09/30/16 18:00 10/03/16 23:16 Norepinephrine Bitartrate/Sodium Chloride (Levophed Inj/NS 250 ml Inj) 254 ml @ 0 mls/hr TITRATE IV 10/01/16 04:15 10/05/16 11:32 Quetiapine Fumarate (SEROquel) 50 mg Q8HR PO 10/02/16 08:00 10/05/16 06:04 Propranolol HCl 10 mg 10 mg Q8H PO 10/04/16 08:00 10/05/16 09:05 Oxacillin Sodium/ Sodium Chloride (Prostaphlin Inj/ NS Inj) 100 ml @ 200 mls/hr Q4H IV 10/04/16 11:00 10/05/16 11:30 OBJECTIVE: Vital Signs Date Time Temp Pulse Resp B/P Pulse Ox O2 Delivery O2 Flow Rate FiO2 10/05/16 10:08 14 10/05/16 10:00 96 10/05/16 08:59 98 30 10/05/16 08:00 99.7 116 14 151/58 100 10/05/16 08:00 30 10/05/16 08:00 116 10/05/16 06:00 122 10/05/16 04:00 30 10/05/16 04:00 99.8 108 14 134/46 100 10/05/16 04:00 108 10/05/16 02:00 100 10/05/16 00:17 100 30 10/05/16 00:00 100.5 90 14 116/58 99 10/05/16 00:00 90 10/05/16 00:00 30 10/04/16 22:00 118 10/04/16 20:00 100.0 118 18 144/56 100 10/04/16 20:00 118 10/04/16 20:00 30 10/04/16 19:43 100 30 10/04/16 18:31 100.0 10/04/16 18:14 106 10/04/16 16:54 100 30 10/04/16 16:00 100.5 103 14 145/46 100 10/04/16 16:00 30 10/04/16 16:00 103 10/04/16 14:00 106 10/04/16 13:15 100 30 10/04/16 12:00 30 10/04/16 12:00 100.5 100 17 125/56 100 10/04/16 12:00 100 10/04/16 10/04/16 10/05/16 15:00 23:00 07:00 Intake Total 1096 ml 960 ml 1156 ml Output Total 1314 ml 1175 ml 840 ml Balance -218 ml -215 ml 316 ml Intake IV Total 400 ml 519 ml 682 ml Tube Feeding 446 ml 441 ml 474 ml Other 250 ml Output Urine Total 1314 ml 1175 ml 840 ml # Bowel Movements 0 0 Laboratory Tests Test 10/04/16 10/05/16 05:00 04:40 White Blood Count 25.2 TH/MM3 22.5 TH/MM3 Red Blood Count 2.87 MIL/MM3 2.75 MIL/MM3 Hemoglobin 8.3 GM/DL 8.2 GM/DL Hematocrit 25.1 % 23.9 % Mean Corpuscular Volume 87.7 FL 86.8 FL Mean Corpuscular Hemoglobin 28.9 PG 29.8 PG Mean Corpuscular Hemoglobin 32.9 % 34.3 % Concent Red Cell Distribution Width 14.8 % 14.3 % Platelet Count 150 TH/MM3 166 TH/MM3 Mean Platelet Volume 8.3 FL 8.1 FL Neutrophils (%) (Auto) 88.6 % Lymphocytes (%) (Auto) 7.5 % Monocytes (%) (Auto) 2.9 % Eosinophils (%) (Auto) 0.8 % Basophils (%) (Auto) 0.2 % Neutrophils # (Auto) 22.4 TH/MM3 Lymphocytes # (Auto) 1.9 TH/MM3 Monocytes # (Auto) 0.7 TH/MM3 Eosinophils # (Auto) 0.2 TH/MM3 Basophils # (Auto) 0.0 TH/MM3 CBC Comment AUTO DIFF Differential Total Cells 100 Counted Neutrophils % (Manual) 82 % Band Neutrophils % 1 % Lymphocytes % 9 % Monocytes % 1 % Eosinophils % 2 % Neutrophils # (Manual) 22.2 TH/MM3 Metamyelocytes 2 % Myelocytes 3 % Differential Comment FINAL DIFF MANUAL Platelet Estimate NORMAL Platelet Morphology Comment NORMAL Red Cell Morphology Comment NORMAL Laboratory Tests Test 10/04/16 10/05/16 05:00 04:40 Sodium Level 153 MEQ/L 148 MEQ/L Potassium Level 3.9 MEQ/L 3.7 MEQ/L Chloride Level 116 MEQ/L 109 MEQ/L Carbon Dioxide Level 33.0 MEQ/L 34.2 MEQ/L Anion Gap 4 MEQ/L 5 MEQ/L Blood Urea Nitrogen 18 MG/DL 17 MG/DL Creatinine 0.73 MG/DL 0.67 MG/DL Estimat Glomerular Filtration 130 ML/MIN 143 ML/MIN Rate Random Glucose 150 MG/DL 160 MG/DL Calcium Level 8.3 MG/DL 7.9 MG/DL Microbiology Date/Time Procedure Status Source Growth 10/02/16 12:27 Aerobic Blood Culture - Final Resulted Blood Peripheral Staphylococcus Aureus 10/02/16 12:27 Anaerobic Blood Culture - Preliminary Resulted Blood Peripheral NO GROWTH IN 3 DAYS 10/03/16 09:07 Aerobic Blood Culture - Preliminary Resulted Blood Peripheral Gram Positive Cocci 10/03/16 09:07 Anaerobic Blood Culture - Preliminary Resulted Blood Peripheral NO GROWTH IN 2 DAYS 10/03/16 09:11 Aerobic Blood Culture - Preliminary Resulted Blood Peripheral Gram Positive Cocci 10/03/16 09:11 Anaerobic Blood Culture - Preliminary Resulted Blood Peripheral NO GROWTH IN 2 DAYS 10/04/16 12:19 Aerobic Blood Culture - Preliminary Resulted Blood Peripheral NO GROWTH IN 1 DAY 10/04/16 12:19 Anaerobic Blood Culture - Preliminary Resulted Blood Peripheral NO GROWTH IN 1 DAY Microbiology Date/Time Procedure Status Source Growth 10/02/16 12:27 Aerobic Blood Culture - Preliminary Resulted Blood Peripheral Gram Positive Cocci 10/02/16 12:27 Anaerobic Blood Culture - Preliminary Resulted Blood Peripheral NO GROWTH IN 1 DAY 10/03/16 09:07 Aerobic Blood Culture - Preliminary Resulted Blood Peripheral Gram Positive Cocci 10/03/16 09:07 Anaerobic Blood Culture Resulted Blood Peripheral Pending 10/03/16 09:11 Aerobic Blood Culture - Preliminary Resulted Blood Peripheral Gram Positive Cocci 10/03/16 09:11 Anaerobic Blood Culture Resulted Blood Peripheral Pending IMAGING: Head CT 10/03/16 0945 Signed Impressions: Service Date/Time: Monday, October 03, 2016 09:51 - CONCLUSION: 1. Multiple foci of low attenuation seen within the cerebral and cerebellar hemispheres consistent with evolving infarcts. Mykel Cantu MD Chest X-Ray 10/01/16 0000 Signed Impressions: Service Date/Time: Saturday, October 01, 2016 05:10 - CONCLUSION: Slight worsening bilateral perihilar infiltrates. 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 Please see above. No mass or evidence of abscess. 4 mm of leftward midline shift. Small subarachnoid blood. Michael Freitas MD Renal Ultrasound 09/30/16 0000 Signed Impressions: Service Date/Time: Friday, September 30, 2016 18:45 - CONCLUSION: Ultrasound appearance of the kidneys within normal limits. Jerez catheter in the urinary bladder. Nonspecific splenomegaly incidentally noted. Michael Freitas MD Head Magnetic Resonance Angiography 09/30/16 0000 Signed Impressions: Service Date/Time: Friday, September 30, 2016 17:42 - CONCLUSION: No occlusion, aneurysm or other acute intracranial vascular abnormality demonstrated. Michael Freitas MD PHYSICAL EXAMINATION GENERAL: Patient is sedated. On vent. HEENT: No icterus. Positive conjunctival erythematous lesions at the lower eyelids. Oropharynx: dry mucosa. NECK: No palpable adenopathy. No swelling. LUNGS: Basilar rhonchi. HEART: 2/6 systolic murmur at the left sternal border. No rubs or gallops. ABDOMEN: Bowel sounds are present, soft, flat, nontender. EXTREMITIES: No clubbing or cyanosis or edema. Embolic purpuric lesions at the plantar aspect of the 4th and 5th toe on the left and the great toe on the right and several pinpoint purpuric lesions at the base of the foot beyond the toe plantar aspect now fading. SKIN: Fading rash at the feet dorsum. There is peeled skin at the plantar aspect of both feet which is dried. Resolved erythema at the arms. There is no erythema at the chest, trunk, neck or face. The lower extremities have no edema. NEURO: Unable to assess. PSYCH: unable to assess. IMPRESSION 1. Septic shock due to Staph aureus 2. Acute endocarditis. [place] aortic valve. Staph aureus. 3. Acute respiratory failure. 4. Bilateral lung infiltrates, probably secondary to septic emboli./ PNA Staph aureus. 5. 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 6. History of IV drug abuse. Unknown current use status. 7. Antibiotic allergies. The patient reportedly is allergic to penicillin and sulfa. Confirmed with his mom who reported to me that he has been able to tolerate Amoxicillin. 8. Recent drug rash. It is not clear what antibiotic the patient received prior to development of the rash and this is yet to be definitively confirmed. RECOMMENDATIONS: 1. Continue Oxacillin 2 grams Q 4 hours. 2. Add Gentamycin in light of persistent bacteremia. Monitor renal function closely. 3. Repeat blood culture today and monitor blood culture from 10/04. 4. Monitor temps. 5. Monitor clinical status. Discussed with RN, Sister at bedside. I will be off next 2 days, JERONIMO FREGOSO covering weekend. Nemesio Jackson MD October 05, 2016 11:48
[2016-10-05] MEDS: GENTAMICIN INJ 70 MG in SODIUM CHLORIDE 0.9% INJ 100 ML IV SCH ×2 (12:03→20:34)
[2016-10-05] MEDS: LACTATED RINGER'S 1000 ML INJ 1,000 ML IV SCH (15:08)
--- NOTE | 2016-10-05 15:08 | HHI.CCPN ---
Subjective Remarks/Hospital Course Hospital Course: This is a 26yM who presents to the ED for altered mental status. On arrival, the patient was obtunded and emergently intubated. His roommate is with him and cannot provide much medical history. The remainder of the history is per EMS and ER documentation and my discussion with the ER physician. Per EMS and ED reports, patient was seen approximately 10 days prior to admission by an unknown physician in the clinic and given antibiotic for fever. After taking the antibiotic, the patient had a new red rash on his hands and healing on his feet. He he was seen in the emergency department 2 days prior to admission for low-grade fever and congestion, generalized weakness, lightheadedness. At that time she was given prescription for prednisone 40 mg daily for 5 days. The patient's landlord apparently found the patient today with altered mental status and called EMS. When EMS arrived, his GCS was 10. There is reports that the patient has a history of substance abuse and was recently in rehabilitation. I did talk to the roommate who confirms that the patient had recently gotten out of rehabilitation and was living with him. The remainder does say that he does not think the patient has been taking any illicit substances recently. In the emergency department, the patient was hypotensive, tachycardic. His head CT is significant for significant areas of infarction in the right frontal , temporal, and cerebellar regions as well as a small area of subarachnoid hemorrhage in the superior right parietal region. Patient has early 3 mm of midline shift as well as effacement on the right. Patient's laboratory data is significant for white blood cell count of 19,000, hemoglobin of 9.9, lactate of 3.7, creatinine 1.69, CK 372, troponin of 11.9. His urine drug screen is positive for opiates and amphetamines. I performed a bedside critical care ultrasound which demonstrated hyperdynamic left ventricular function and what appears to be aortic valve vegetations and I measured to be proximally 0.9 x 8.8 cm. This is associated with what appears to be severe aortic regurgitation. There is no pericardial effusion. Right ventricular function is preserved. A formal echo has been ordered to confirm these findings. Critical care medicine has been consulted to evaluate and manage his shock, altered mental status, multiple areas of infarction, and subarachnoid hemorrhage. Subjective: 10/01: seen and examined around 06:30am. patient on norepinephrine at 6 mcg/min , persistently in shock. patient localizes to pain x 4 extremities. repeat interval head CT with 4mm midline shift. echo with significant aortic valve vegetations and moderate aortic insufficiency. 10/02: now following commands intermittently on the RUE, still localizing in LUE , BLE. off vasopressors this morning. cultures growing staph, sensitivities to follow. 10/03: tachycardic overnight. off vasopressors this morning. not following commands this morning. still persistently febrile and wbc uptrended to 20k. 10/04: still encephalopathic. EEG negative for seizure activity. received 1 trial dose of oxacillin yesterday without evidence of allergic reaction. will let ID guide this therapy, but safe from a critical care standpoint to pursue oxacillin therapy. cultures persistently positive and wbc uptrending. still febrile. 10/05: persistent encephalopathy. but now briskly purposeful x 4. now on oxacillin. discussed with ID, and will plan to start gent induction. wbc downtrending today. still febrile. will continue surveilance cultures q48h until 2 sets negative. Objective Vital Signs Date Time Temp Pulse Resp B/P Pulse Ox O2 Delivery O2 Flow Rate FiO2 10/05/16 14:00 95 10/05/16 12:00 30 10/05/16 12:00 99.5 17 124/52 100 10/01/16 07:00 Mechanical Ventilator Intake and Output 10/04/16 10/04/16 10/05/16 08:00 16:00 00:00 Intake Total 1282 ml 1067 ml 1008 ml Output Total 1540 ml 1064 ml 1245 ml Balance -258 ml 3 ml -237 ml Result Diagram: 10/05/16 0440 10/05/16 0440 Imaging Last Impressions Head CT 09/30/16 2513 Signed Impressions: Service Date/Time: Friday, September 30, 2016 16:31 - CONCLUSION: Noncontrast CT findings of concern for multiple intra-axial masses. There is small acute subarachnoid blood present and about 3 mm of leftward midline shift. MRI of the brain with and without contrast recommended. Michael Freitas MD Chest X-Ray 09/30/16 1632 Signed Impressions: Service Date/Time: Friday, September 30, 2016 15:23 - CONCLUSION: No acute cardiopulmonary disease demonstrated. Appropriate endotracheal tube tip position. Nasogastric tube courses into the stomach, tip not included on the study. Michael Freitas MD Objective Remarks GENERAL: Young male, lying in bed, intubated, sedated, critically ill HEENT: Pupils 3 mm, equal, sluggishly reactive. Mucous membranes moist. NECK: No JVD. Trachea midline. Orotracheally intubated CHEST: Equal chest rise. Clear to auscultation. CARDIOVASCULAR: Tachycardic rate, regular rhythm. II/ systolic and diastolic murmur. ABDOMEN: Soft, nontender, nondistended. No guarding. MUSCULOSKELETAL: rash on feet has improved. No peripheral edema. Distal pulses 2+. NEUROLOGICAL: RASS -2. does not follow commands. localizes in the RUE. briskly purposeful in LUE, BLE. 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 Still critically ill and with ongoing cerebral edema. neuro exam stable. continue to follow cultures. We will continue with supportive care. Remains very critically ill at this time. Plan by systems: Neurologic: Multiple acute septic CVAs Cerebral edema Small subarachnoid hemorrhage Midline shift, 4 mm Metabolic encephalopathy Agitated Delirium Neurosurgery consulted, Dr. Michelle q1h neuro checks --prop/fent for goal RASS -2. --avoid long-acting sedating meds --EEG 10/01- negative for seizures --seroquel 50mg po q8hr. Respiratory: Acute hypoxic and hypercarbic respiratory failure Vent bundle Head of bed 30 Avoid hypercarbia and hypoxia will consider trial of sbt today. Wean FiO2 for goal SPO2 greater than 92% Cardiovascular: Aortic valve endocarditis Moderate aortic insufficiency Cardiogenic shock- resolved. Septic shock --slowly liberalize sodium goal. Arterial line, central line for invasive central pressure monitoring --trend CVP. Abx as described below 2d echo 10/01: aortic valve vegetations, moderate AI. Norepinephrine for goal map greater than 65 --vasopressors persist, likely low-grade ongoing shock from persistent bacteremia. Renal: Acute kidney injury- resolved. Jerez for accurate I's and O's -- Strict I/Os FEN/GI: Hypermagnesemia Lactic acidosis- resolved. Severe metabolic acidosis- resolved. Acute protein calorie malnutritionmild Elevated LFTs jevity 1.5, nutrition consult. OG tube to suction --restart LR mivf @ 75cc/hr in the setting of gentamicin induction therapy as renal protection. Daily BMP Heme/ID: Anemia, likely secondary to hemolysis from valvulopathy Infective endocarditis Septic shock- resolving. 10/01 blood cultures: MSSA --10/01 sputum culture: MSSA --10/02 blood cultures: MSSA --10/03 blood cultures: MSSA --10/04 bl cx: MSSA --re-draw surveillance cultures today. vancomycin, flagyl d/c 10/02. --oxacillin --start gentamicin induction therapy per ID. Infectious disease following: Dontfraid Endocrine: Hyperglycemia of critical illness -- SSI, every 6 hours, medium scale TSH 0.16, free T4 1.07, T3 < 0.5: likely sick euthyroid. Prophylaxis: GI Prophylaxis Protonix IV DVT Prophylaxis -- SCDs Holding pharmacologic DVT prophylaxis in the setting of cerebral hemorrhage Lines: 09/30 radial arterial line --09/30 left SC TLC --Jerez Dispo: Remain in the ICU. He remains critically ill. This patient remains critically ill with one or more organ systems which are or may become a threat to life. I have spent in excess of 31 minutes discontinuously in the care and management of this patient. This time is exclusive of procedures, and includes, but is not limited to, evaluation of the patient, review of the medical record, discussions with family, consultants, nursing staff, or respiratory therapy, and documentation in the medical record. Yahir Dominguez MD October 05, 2016 15:07
[2016-10-06] VITALS (18 sets, daily range): BP systolic 138–159; BP diastolic 52–64; PULSE 73–105; RESP 11–18; TEMP 99.3–100.8; O2SAT 99–100
[2016-10-06] MEDS: RESP: ALBUTEROL 2.5 MG/IPRATROPIUM 0.5 MG NEB (SCH) INH ×4 (03:07→21:16)
[2016-10-06] MEDS: OXACILLIN INJ 2 GM in SODIUM CHLORIDE 0.9% INJ 100 ML IV SCH ×6 (03:09→22:54)
[2016-10-06] MEDS: fentaNYL DRIP 250 ML IV SCH ×2 (03:18→16:18)
[2016-10-06] MEDS: CHLORHEXIDINE GLUCONATE 2 % 1 PACK (2 CLOTHS) TOP SCH (04:00)
[2016-10-06] MEDS: GENTAMICIN INJ 70 MG in SODIUM CHLORIDE 0.9% INJ 100 ML IV SCH ×3 (04:08→21:01)
[2016-10-06] MEDS: NOREPINEPHRINE INJ 4 MG in SODIUM CHLOR 0.9% 250 ML INJ 250 ML IV SCH (04:12)
[2016-10-06 04:43] LABS: HEMATOCRIT 24.4 % (39.0-51.0); MEAN CELL VOLUME 86.7 FL (80.0-100.0); MEAN CORPUSCULAR HEMOGLOBIN 29.3 PG (27.0-34.0); MEAN CORPUSCULAR HGB CONC 33.8 % (32.0-36.0); PLATELET COUNT 208 TH/MM3 (150-450); RED BLOOD COUNT 2.81 MIL/MM3 (4.50-5.90); RED CELL DISTRIBUTION WIDTH 14.2 % (11.6-17.2); REVIEW FLAG FINAL; WHITE BLOOD COUNT 21.5 TH/MM3 (4.0-11.0)
[2016-10-06] MEDS: LACTATED RINGER'S 1000 ML INJ 1,000 ML IV SCH ×2 (04:52→17:40)
[2016-10-06 04:54] LABS: BICARBONATE 31.7 MEQ/L (21.0-32.0); POTASSIUM 4.1 MEQ/L (3.5-5.1)
[2016-10-06] MEDS: INSULIN NovoLIN REGULAR SUPPLEMENTAL SCALE SQ SCH ×4 (06:00→23:47)
[2016-10-06] MEDS: QUEtiapine FUMARATE 25 MG TAB PO SCH (06:06)
[2016-10-06] MEDS: CHLORHEXIDINE 0.12% (ORAL KIT) 15 ML CUP MT SCH ×2 (08:00→20:00)
[2016-10-06] MEDS: DOCUSATE SODIUM 100 MG/10 ML UDC G-TUBE SCH ×2 (08:12→21:02)
[2016-10-06] MEDS: PANTOPRAZOLE SODIUM 40 MG VIAL IV SCH (08:12)
[2016-10-06] MEDS: PROPRANOLOL HCL 10 MG TAB PO SCH ×3 (08:12→23:47)
[2016-10-06] MEDS: ARTIFICIAL TEARS OPTH SOLN 15 ML BTL EACH EYE SCH ×3 (08:13→18:00)
[2016-10-06] MEDS: SODIUM CHLORIDE 0.9% FLUSH 10 ML FLUSH IV FLUSH SCH ×2 (08:13→21:00)
[2016-10-06] MEDS: PROPOFOL 1000 MG/100 ML INJ 100 ML IV SCH ×3 (08:59→22:53)
--- NOTE | 2016-10-06 12:29 | HHI.CCPN ---
Subjective Remarks/Hospital Course Hospital Course: This is a 26yM who presents to the ED for altered mental status. On arrival, the patient was obtunded and emergently intubated. His roommate is with him and cannot provide much medical history. The remainder of the history is per EMS and ER documentation and my discussion with the ER physician. Per EMS and ED reports, patient was seen approximately 10 days prior to admission by an unknown physician in the clinic and given antibiotic for fever. After taking the antibiotic, the patient had a new red rash on his hands and healing on his feet. He he was seen in the emergency department 2 days prior to admission for low-grade fever and congestion, generalized weakness, lightheadedness. At that time she was given prescription for prednisone 40 mg daily for 5 days. The patient's landlord apparently found the patient today with altered mental status and called EMS. When EMS arrived, his GCS was 10. There is reports that the patient has a history of substance abuse and was recently in rehabilitation. I did talk to the roommate who confirms that the patient had recently gotten out of rehabilitation and was living with him. The remainder does say that he does not think the patient has been taking any illicit substances recently. In the emergency department, the patient was hypotensive, tachycardic. His head CT is significant for significant areas of infarction in the right frontal , temporal, and cerebellar regions as well as a small area of subarachnoid hemorrhage in the superior right parietal region. Patient has early 3 mm of midline shift as well as effacement on the right. Patient's laboratory data is significant for white blood cell count of 19,000, hemoglobin of 9.9, lactate of 3.7, creatinine 1.69, CK 372, troponin of 11.9. His urine drug screen is positive for opiates and amphetamines. I performed a bedside critical care ultrasound which demonstrated hyperdynamic left ventricular function and what appears to be aortic valve vegetations and I measured to be proximally 0.9 x 8.8 cm. This is associated with what appears to be severe aortic regurgitation. There is no pericardial effusion. Right ventricular function is preserved. A formal echo has been ordered to confirm these findings. Critical care medicine has been consulted to evaluate and manage his shock, altered mental status, multiple areas of infarction, and subarachnoid hemorrhage. Subjective: 10/01: seen and examined around 06:30am. patient on norepinephrine at 6 mcg/min , persistently in shock. patient localizes to pain x 4 extremities. repeat interval head CT with 4mm midline shift. echo with significant aortic valve vegetations and moderate aortic insufficiency. 10/02: now following commands intermittently on the RUE, still localizing in LUE , BLE. off vasopressors this morning. cultures growing staph, sensitivities to follow. 10/03: tachycardic overnight. off vasopressors this morning. not following commands this morning. still persistently febrile and wbc uptrended to 20k. 10/04: still encephalopathic. EEG negative for seizure activity. received 1 trial dose of oxacillin yesterday without evidence of allergic reaction. will let ID guide this therapy, but safe from a critical care standpoint to pursue oxacillin therapy. cultures persistently positive and wbc uptrending. still febrile. 10/05: persistent encephalopathy. but now briskly purposeful x 4. now on oxacillin. discussed with ID, and will plan to start gent induction. wbc downtrending today. still febrile. will continue surveilance cultures q48h until 2 sets negative. 10/06: neuro exam unchanged. still purposeful. blood cultures negative x 24h. will re-draw today. still persists on 1mcg/min levophed, though this has also slightly improved from yesterday. Objective Vital Signs Date Time Temp Pulse Resp B/P Pulse Ox O2 Delivery O2 Flow Rate FiO2 10/06/16 12:09 100 30 10/06/16 06:00 92 10/06/16 04:00 99.3 18 148/61 Intake and Output 10/05/16 10/05/16 10/06/16 08:00 16:00 00:00 Intake Total 1066 ml 1105 ml 1515 ml Output Total 925 ml 950 ml 1450 ml Balance 141 ml 155 ml 65 ml Result Diagram: 10/06/16 0415 10/06/16 0415 Imaging Last Impressions Head CT 09/30/16 3431 Signed Impressions: Service Date/Time: Friday, September 30, 2016 16:31 - CONCLUSION: Noncontrast CT findings of concern for multiple intra-axial masses. There is small acute subarachnoid blood present and about 3 mm of leftward midline shift. MRI of the brain with and without contrast recommended. Michael Freitas MD Chest X-Ray 09/30/16 1975 Signed Impressions: Service Date/Time: Friday, September 30, 2016 15:23 - CONCLUSION: No acute cardiopulmonary disease demonstrated. Appropriate endotracheal tube tip position. Nasogastric tube courses into the stomach, tip not included on the study. Michael Freitas MD Objective Remarks GENERAL: Young male, lying in bed, intubated, sedated, critically ill HEENT: Pupils 3 mm, equal, sluggishly reactive. Mucous membranes moist. NECK: No JVD. Trachea midline. Orotracheally intubated CHEST: Equal chest rise. Clear to auscultation. CARDIOVASCULAR: Tachycardic rate, regular rhythm. II/ systolic and diastolic murmur. ABDOMEN: Soft, nontender, nondistended. No guarding. MUSCULOSKELETAL: rash on feet has improved. No peripheral edema. Distal pulses 2+. NEUROLOGICAL: RASS -3. does not follow commands. localizes in the RUE. briskly purposeful in LUE, BLE. 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 Still critically ill and with ongoing encephalopathy and distributive shock requiring vasopressors. neuro exam stable. continue to follow cultures. We will continue with supportive care. Remains very critically ill at this time. Plan by systems: Neurologic: Multiple acute septic CVAs Cerebral edema Small subarachnoid hemorrhage Midline shift, 4 mm Metabolic encephalopathy Agitated Delirium Neurosurgery consulted, Dr. Michelle q1h neuro checks --prop/fent for goal RASS -2. --avoid long-acting sedating meds --EEG 10/01- negative for seizures --increase seroquel to 100mg q8hr. --add melatonin to assist with sleep/wake cycles -- delirium worse, and agitation worse today. Respiratory: Acute hypoxic and hypercarbic respiratory failure Vent bundle Head of bed 30 Avoid hypercarbia and hypoxia daily SBTs. Wean FiO2 for goal SPO2 greater than 92% Cardiovascular: Aortic valve endocarditis Moderate aortic insufficiency Cardiogenic shock- resolved. Septic shock --slowly liberalize sodium goal. Arterial line, central line for invasive central pressure monitoring --trend CVP. Abx as described below 2d echo 10/01: aortic valve vegetations, moderate AI. Norepinephrine for goal map greater than 65 --vasopressors persist, likely low-grade ongoing shock from persistent bacteremia. Renal: Acute kidney injury- resolved. Jerez for accurate I's and O's -- Strict I/Os FEN/GI: Hypermagnesemia Lactic acidosis- resolved. Severe metabolic acidosis- resolved. Acute protein calorie malnutritionmild Elevated LFTs jevity 1.5, nutrition consult. OG tube to suction --LR mivf @ 75cc/hr in the setting of gentamicin induction therapy as renal protection. Daily BMP Heme/ID: Anemia, likely secondary to hemolysis from valvulopathy Infective endocarditis Septic shock- resolving. 10/01 blood cultures: MSSA --10/01 sputum culture: MSSA --10/02 blood cultures: MSSA --10/03 blood cultures: MSSA --10/04 bl cx: MSSA --10/05 bl cx: NGTD x 24h --re-draw surveillance cultures today. vancomycin, flagyl d/c 10/02. --oxacillin started 10/02 --gentamicin induction therapy per ID. started 10/05 Infectious disease following: Dontfraid Endocrine: Hyperglycemia of critical illness -- SSI, every 6 hours, medium scale TSH 0.16, free T4 1.07, T3 < 0.5: likely sick euthyroid. Prophylaxis: GI Prophylaxis Protonix IV DVT Prophylaxis -- SCDs Holding pharmacologic DVT prophylaxis in the setting of cerebral hemorrhage Lines: 09/30 radial arterial line --09/30 left SC TLC --Jerez Dispo: Remain in the ICU. He remains critically ill. This patient remains critically ill with one or more organ systems which are or may become a threat to life. I have spent in excess of 30 minutes discontinuously in the care and management of this patient. This time is exclusive of procedures, and includes, but is not limited to, evaluation of the patient, review of the medical record, discussions with family, consultants, nursing staff, or respiratory therapy, and documentation in the medical record. Yahir Dominguez MD October 06, 2016 12:29
[2016-10-06] MEDS ORDERED: QUEtiapine FUMARATE 25 MG TAB PO ONE (12:30)
[2016-10-06] MEDS: QUEtiapine FUMARATE 100 MG TAB PO SCH ×2 (14:00→21:02)
[2016-10-06] MEDS: ACETAMINOPHEN 325 MG TAB PO PRN (18:30)
[2016-10-06] MEDS: MELATONIN 5 MG TAB PO SCH (21:02)
[2016-10-07] VITALS (18 sets, daily range): BP systolic 110–153; BP diastolic 53–66; PULSE 70–106; RESP 12–21; TEMP 99.4–100.3; O2SAT 100
[2016-10-07] MEDS: ACETAMINOPHEN 325 MG TAB PO PRN ×4 (02:09→21:13)
[2016-10-07] MEDS: OXACILLIN INJ 2 GM in SODIUM CHLORIDE 0.9% INJ 100 ML IV SCH ×6 (03:28→22:14)
[2016-10-07] MEDS: RESP: ALBUTEROL 2.5 MG/IPRATROPIUM 0.5 MG NEB (SCH) INH ×4 (03:29→22:20)
[2016-10-07] MEDS: PROPOFOL 1000 MG/100 ML INJ 100 ML IV SCH ×3 (03:59→23:55)
[2016-10-07] MEDS: fentaNYL DRIP 250 ML IV SCH ×2 (04:00→20:47)
[2016-10-07] MEDS: CHLORHEXIDINE GLUCONATE 2 % 1 PACK (2 CLOTHS) TOP SCH (04:00)
[2016-10-07] MEDS: GENTAMICIN INJ 70 MG in SODIUM CHLORIDE 0.9% INJ 100 ML IV SCH ×3 (04:43→19:48)
[2016-10-07] MEDS: QUEtiapine FUMARATE 100 MG TAB PO SCH ×3 (05:11→21:35)
[2016-10-07] MEDS: INSULIN NovoLIN REGULAR SUPPLEMENTAL SCALE SQ SCH ×4 (05:38→23:55)
[2016-10-07 05:47] LABS: HEMATOCRIT 23.5 % (39.0-51.0); MEAN CELL VOLUME 87.4 FL (80.0-100.0); MEAN CORPUSCULAR HEMOGLOBIN 29.5 PG (27.0-34.0); MEAN CORPUSCULAR HGB CONC 33.7 % (32.0-36.0); PLATELET COUNT 251 TH/MM3 (150-450); RED BLOOD COUNT 2.68 MIL/MM3 (4.50-5.90); REVIEW FLAG FINAL; WHITE BLOOD COUNT 20.8 TH/MM3 (4.0-11.0)
[2016-10-07 06:03] LABS: BICARBONATE 30.7 MEQ/L (21.0-32.0); POTASSIUM 4.1 MEQ/L (3.5-5.1)
[2016-10-07] MEDS: LACTATED RINGER'S 1000 ML INJ 1,000 ML IV SCH ×2 (07:00→20:20)
[2016-10-07] MEDS: PANTOPRAZOLE SODIUM 40 MG VIAL IV SCH (08:45)
[2016-10-07] MEDS: CHLORHEXIDINE 0.12% (ORAL KIT) 15 ML CUP MT SCH ×2 (08:45→19:48)
[2016-10-07] MEDS: DOCUSATE SODIUM 100 MG/10 ML UDC G-TUBE SCH ×2 (08:45→19:48)
[2016-10-07] MEDS: PROPRANOLOL HCL 10 MG TAB PO SCH ×3 (08:45→23:28)
[2016-10-07] MEDS: SODIUM CHLORIDE 0.9% FLUSH 10 ML FLUSH IV FLUSH SCH ×2 (08:46→19:48)
[2016-10-07] MEDS: ARTIFICIAL TEARS OPTH SOLN 15 ML BTL EACH EYE SCH ×3 (08:46→18:16)
--- NOTE | 2016-10-07 10:30 | HHI.CCPN ---
Subjective Remarks/Hospital Course Hospital Course: This is a 26yM who presents to the ED for altered mental status. On arrival, the patient was obtunded and emergently intubated. His roommate is with him and cannot provide much medical history. The remainder of the history is per EMS and ER documentation and my discussion with the ER physician. Per EMS and ED reports, patient was seen approximately 10 days prior to admission by an unknown physician in the clinic and given antibiotic for fever. After taking the antibiotic, the patient had a new red rash on his hands and healing on his feet. He he was seen in the emergency department 2 days prior to admission for low-grade fever and congestion, generalized weakness, lightheadedness. At that time she was given prescription for prednisone 40 mg daily for 5 days. The patient's landlord apparently found the patient today with altered mental status and called EMS. When EMS arrived, his GCS was 10. There is reports that the patient has a history of substance abuse and was recently in rehabilitation. I did talk to the roommate who confirms that the patient had recently gotten out of rehabilitation and was living with him. The remainder does say that he does not think the patient has been taking any illicit substances recently. In the emergency department, the patient was hypotensive, tachycardic. His head CT is significant for significant areas of infarction in the right frontal , temporal, and cerebellar regions as well as a small area of subarachnoid hemorrhage in the superior right parietal region. Patient has early 3 mm of midline shift as well as effacement on the right. Patient's laboratory data is significant for white blood cell count of 19,000, hemoglobin of 9.9, lactate of 3.7, creatinine 1.69, CK 372, troponin of 11.9. His urine drug screen is positive for opiates and amphetamines. I performed a bedside critical care ultrasound which demonstrated hyperdynamic left ventricular function and what appears to be aortic valve vegetations and I measured to be proximally 0.9 x 8.8 cm. This is associated with what appears to be severe aortic regurgitation. There is no pericardial effusion. Right ventricular function is preserved. A formal echo has been ordered to confirm these findings. Critical care medicine has been consulted to evaluate and manage his shock, altered mental status, multiple areas of infarction, and subarachnoid hemorrhage. Subjective: 10/01: seen and examined around 06:30am. patient on norepinephrine at 6 mcg/min , persistently in shock. patient localizes to pain x 4 extremities. repeat interval head CT with 4mm midline shift. echo with significant aortic valve vegetations and moderate aortic insufficiency. 10/02: now following commands intermittently on the RUE, still localizing in LUE , BLE. off vasopressors this morning. cultures growing staph, sensitivities to follow. 10/03: tachycardic overnight. off vasopressors this morning. not following commands this morning. still persistently febrile and wbc uptrended to 20k. 10/04: still encephalopathic. EEG negative for seizure activity. received 1 trial dose of oxacillin yesterday without evidence of allergic reaction. will let ID guide this therapy, but safe from a critical care standpoint to pursue oxacillin therapy. cultures persistently positive and wbc uptrending. still febrile. 10/05: persistent encephalopathy. but now briskly purposeful x 4. now on oxacillin. discussed with ID, and will plan to start gent induction. wbc downtrending today. still febrile. will continue surveilance cultures q48h until 2 sets negative. 10/06: neuro exam unchanged. still purposeful. blood cultures negative x 24h. will re-draw today. still persists on 1mcg/min levophed, though this has also slightly improved from yesterday. 10/07: neuro exam stable. very agitated, not following commands. blood cultures negative x 48h. off levophed. Objective Vital Signs Date Time Temp Pulse Resp B/P Pulse Ox O2 Delivery O2 Flow Rate FiO2 10/07/16 06:00 92 10/07/16 04:00 30 10/07/16 04:00 99.5 18 138/53 100 Intake and Output 10/06/16 10/06/16 10/07/16 08:00 16:00 00:00 Intake Total 1482 ml 1428 ml 1290 ml Output Total 1475 ml 1150 ml 800 ml Balance 7 ml 278 ml 490 ml Result Diagram: 10/07/16 0520 10/07/16 0520 Imaging Last Impressions Head CT 09/30/16 1453 Signed Impressions: Service Date/Time: Friday, September 30, 2016 16:31 - CONCLUSION: Noncontrast CT findings of concern for multiple intra-axial masses. There is small acute subarachnoid blood present and about 3 mm of leftward midline shift. MRI of the brain with and without contrast recommended. Michael Freitas MD Chest X-Ray 09/30/16 4226 Signed Impressions: Service Date/Time: Friday, September 30, 2016 15:23 - CONCLUSION: No acute cardiopulmonary disease demonstrated. Appropriate endotracheal tube tip position. Nasogastric tube courses into the stomach, tip not included on the study. Michael Freitas MD Objective Remarks GENERAL: Young male, lying in bed, intubated, sedated, critically ill HEENT: Pupils 3 mm, equal, sluggishly reactive. Mucous membranes moist. NECK: No JVD. Trachea midline. Orotracheally intubated CHEST: Equal chest rise. Clear to auscultation. CARDIOVASCULAR: Tachycardic rate, regular rhythm. II/ systolic and diastolic murmur. ABDOMEN: Soft, nontender, nondistended. No guarding. MUSCULOSKELETAL: rash on feet has improved. No peripheral edema. Distal pulses 2+. NEUROLOGICAL: RASS -3. CAM+. does not follow commands. localizes in the RUE. withdraws in LUE, BLE. 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 Still critically ill and with ongoing encephalopathy. neuro exam stable. continue to follow cultures. We will continue with supportive care. Remains very critically ill at this time. If we do not have significant improvements, will need to consider trach. Plan by systems: Neurologic: Multiple acute septic CVAs Cerebral edema Small subarachnoid hemorrhage Midline shift, 4 mm Metabolic encephalopathy Agitated Delirium Neurosurgery consulted, Dr. Michelle q1h neuro checks --prop/fent for goal RASS -2. --avoid long-acting sedating meds --EEG 10/01- negative for seizures -- seroquel 100mg q8hr. -- melatonin to assist with sleep/wake cycles -- delirium and agitation persists. -- interval head CT in AM to re-assess edema. Respiratory: Acute hypoxic and hypercarbic respiratory failure Vent bundle Head of bed 30 Avoid hypercarbia and hypoxia daily SBTs. Wean FiO2 for goal SPO2 greater than 92% Cardiovascular: Aortic valve endocarditis Moderate aortic insufficiency Cardiogenic shock- resolved. Septic shock- resolving. Arterial line, central line for invasive central pressure monitoring --trend CVP. Abx as described below 2d echo 10/01: aortic valve vegetations, moderate AI. off vasopressors today. Renal: Acute kidney injury- resolved. Jerez for accurate I's and O's -- Strict I/Os FEN/GI: Hypermagnesemia Lactic acidosis- resolved. Severe metabolic acidosis- resolved. Acute protein calorie malnutritionmild Elevated LFTs jevity 1.5, nutrition consult. OG tube to suction --d/c mivf today. Daily BMP Heme/ID: Anemia, likely secondary to hemolysis from valvulopathy Infective endocarditis Septic shock- resolving. 10/01 blood cultures: MSSA --10/01 sputum culture: MSSA --10/02 blood cultures: MSSA --10/03 blood cultures: MSSA --10/04 bl cx: MSSA --10/05 bl cx: NGTD x 48h --10/06 bl cx: NGTD vancomycin, flagyl d/c 10/02. --oxacillin started 10/02 --gentamicin induction therapy per ID. started 10/05 Infectious disease following: Dontfraid Endocrine: Hyperglycemia of critical illness -- SSI, every 6 hours, medium scale TSH 0.16, free T4 1.07, T3 < 0.5: likely sick euthyroid. Prophylaxis: GI Prophylaxis Protonix IV DVT Prophylaxis -- SCDs Holding pharmacologic DVT prophylaxis in the setting of cerebral hemorrhage Lines: 09/30 radial arterial line --09/30 left SC TLC --Solitario Dispo: Remain in the ICU. He remains critically ill. This patient remains critically ill with one or more organ systems which are or may become a threat to life. I have spent in excess of 32 minutes discontinuously in the care and management of this patient. This time is exclusive of procedures, and includes, but is not limited to, evaluation of the patient, review of the medical record, discussions with family, consultants, nursing staff, or respiratory therapy, and documentation in the medical record. Yahir Dominguez MD October 07, 2016 10:30
[2016-10-07] MEDS: MELATONIN 5 MG TAB PO SCH (19:48)
[2016-10-08] VITALS (19 sets, daily range): BP systolic 121–144; BP diastolic 50–62; PULSE 79–110; RESP 13–16; TEMP 98.3–99.8; O2SAT 98–100
[2016-10-08] MEDS: OXACILLIN INJ 2 GM in SODIUM CHLORIDE 0.9% INJ 100 ML IV SCH ×5 (01:57→22:52)
[2016-10-08] MEDS: RESP: ALBUTEROL 2.5 MG/IPRATROPIUM 0.5 MG NEB (SCH) INH ×4 (03:01→21:29)
[2016-10-08] MEDS: GENTAMICIN INJ 70 MG in SODIUM CHLORIDE 0.9% INJ 100 ML IV SCH ×3 (03:05→20:51)
[2016-10-08] MEDS: CHLORHEXIDINE GLUCONATE 2 % 1 PACK (2 CLOTHS) TOP SCH (04:00)
[2016-10-08 05:01] LABS: HEMATOCRIT 23.8 % (39.0-51.0); MEAN CELL VOLUME 86.7 FL (80.0-100.0); MEAN CORPUSCULAR HEMOGLOBIN 29.1 PG (27.0-34.0); MEAN CORPUSCULAR HGB CONC 33.6 % (32.0-36.0); PLATELET COUNT 292 TH/MM3 (150-450); RED BLOOD COUNT 2.75 MIL/MM3 (4.50-5.90); RED CELL DISTRIBUTION WIDTH 13.6 % (11.6-17.2); REVIEW FLAG FINAL; WHITE BLOOD COUNT 21.6 TH/MM3 (4.0-11.0)
[2016-10-08] MEDS: PROPOFOL 1000 MG/100 ML INJ 100 ML IV SCH ×3 (05:04→18:40)
[2016-10-08 05:26] LABS: BICARBONATE 29.7 MEQ/L (21.0-32.0); POTASSIUM 4.1 MEQ/L (3.5-5.1)
[2016-10-08] MEDS: INSULIN NovoLIN REGULAR SUPPLEMENTAL SCALE SQ SCH ×3 (06:00→17:51)
[2016-10-08] MEDS: QUEtiapine FUMARATE 100 MG TAB PO SCH ×3 (06:19→20:51)
[2016-10-08] MEDS: fentaNYL DRIP 250 ML IV SCH ×2 (06:31→18:40)
[2016-10-08] MEDS ORDERED: 3% SALINE INJ 250 ML IV ONE (06:45)
--- NOTE | 2016-10-08 07:00 | RADRPT ---
EXAM DATE/TIME: 10/08/2016 05:31 [facility] COMPARISON: MRI BRAIN W & W/O CONTRAST, September 30, 2016, 17:42. CT BRAIN W/O CONTRAST, October 03, 2016, 9:51. INDICATIONS : Interval change in edema. RADIATION DOSE: 52.13 CTDIvol (mGy) MEDICAL HISTORY : Seizures. Gastroesophageal reflux disease. Endocarditis. Substance abuse. SURGICAL HISTORY : None. ENCOUNTER: Subsequent ACUITY: 1 week PAIN SCALE: Non-responsive LOCATION: cranial TECHNIQUE: Multiple contiguous axial images were obtained of the head. Using automated exposure control and adj ustment of the mA and/or kV according to patient size, radiation dose was kept as low as reasonably a chievable to obtain optimal diagnostic quality images. FINDINGS: There has been slight interval increase in volume of hypodensity in the right temporal region area le ft parietal and occipital lesions are grossly stable. There is slight effacement of the basal cistern s, particularly on the right which is increased and slight interval increase in compression of the ri ght lateral ventricle and subfalcine shift. There is slight central hemorrhagic density in the right temporal process. Similar change in the parafalcine left occipital lesion. CONCLUSION: Increasing mass effect mainly associated with the right temporal process Michael Choe MD on October 08, 2016 at 6:55 Board Certified Radiologist. This report was verified electronically.
--- NOTE | 2016-10-08 07:24 | HHI.CCPN ---
Subjective Remarks/Hospital Course Hospital Course: This is a 26yM who presents to the ED for altered mental status. On arrival, the patient was obtunded and emergently intubated. His roommate is with him and cannot provide much medical history. The remainder of the history is per EMS and ER documentation and my discussion with the ER physician. Per EMS and ED reports, patient was seen approximately 10 days prior to admission by an unknown physician in the clinic and given antibiotic for fever. After taking the antibiotic, the patient had a new red rash on his hands and healing on his feet. He he was seen in the emergency department 2 days prior to admission for low-grade fever and congestion, generalized weakness, lightheadedness. At that time she was given prescription for prednisone 40 mg daily for 5 days. The patient's landlord apparently found the patient today with altered mental status and called EMS. When EMS arrived, his GCS was 10. There is reports that the patient has a history of substance abuse and was recently in rehabilitation. I did talk to the roommate who confirms that the patient had recently gotten out of rehabilitation and was living with him. The remainder does say that he does not think the patient has been taking any illicit substances recently. In the emergency department, the patient was hypotensive, tachycardic. His head CT is significant for significant areas of infarction in the right frontal , temporal, and cerebellar regions as well as a small area of subarachnoid hemorrhage in the superior right parietal region. Patient has early 3 mm of midline shift as well as effacement on the right. Patient's laboratory data is significant for white blood cell count of 19,000, hemoglobin of 9.9, lactate of 3.7, creatinine 1.69, CK 372, troponin of 11.9. His urine drug screen is positive for opiates and amphetamines. I performed a bedside critical care ultrasound which demonstrated hyperdynamic left ventricular function and what appears to be aortic valve vegetations and I measured to be proximally 0.9 x 8.8 cm. This is associated with what appears to be severe aortic regurgitation. There is no pericardial effusion. Right ventricular function is preserved. A formal echo has been ordered to confirm these findings. Critical care medicine has been consulted to evaluate and manage his shock, altered mental status, multiple areas of infarction, and subarachnoid hemorrhage. Subjective: 10/01: seen and examined around 06:30am. patient on norepinephrine at 6 mcg/min , persistently in shock. patient localizes to pain x 4 extremities. repeat interval head CT with 4mm midline shift. echo with significant aortic valve vegetations and moderate aortic insufficiency. 10/02: now following commands intermittently on the RUE, still localizing in LUE , BLE. off vasopressors this morning. cultures growing staph, sensitivities to follow. 10/03: tachycardic overnight. off vasopressors this morning. not following commands this morning. still persistently febrile and wbc uptrended to 20k. 10/04: still encephalopathic. EEG negative for seizure activity. received 1 trial dose of oxacillin yesterday without evidence of allergic reaction. will let ID guide this therapy, but safe from a critical care standpoint to pursue oxacillin therapy. cultures persistently positive and wbc uptrending. still febrile. 10/05: persistent encephalopathy. but now briskly purposeful x 4. now on oxacillin. discussed with ID, and will plan to start gent induction. wbc downtrending today. still febrile. will continue surveilance cultures q48h until 2 sets negative. 10/06: neuro exam unchanged. still purposeful. blood cultures negative x 24h. will re-draw today. still persists on 1mcg/min levophed, though this has also slightly improved from yesterday. 10/07: neuro exam stable. very agitated, not following commands. blood cultures negative x 48h. off levophed. 10/08: neuro exam stable. CT with increased midline shift and persistent edema, particularly right side. back on levophed. febrile. wbc stable. Objective Vital Signs Date Time Temp Pulse Resp B/P Pulse Ox O2 Delivery O2 Flow Rate FiO2 10/08/16 06:00 84 10/08/16 05:20 100 100 10/08/16 04:00 99.0 16 140/55 Intake and Output 10/07/16 10/07/16 10/08/16 08:00 16:00 00:00 Intake Total 1594 ml 1559 ml 1065 ml Output Total 525 ml 1200 ml 1325 ml Balance 1069 ml 359 ml -260 ml Result Diagram: 10/08/16 0440 10/08/16 0440 Imaging Last Impressions Head CT 09/30/16 1423 Signed Impressions: Service Date/Time: Santiago, September 30, 2016 16:31 - CONCLUSION: Noncontrast CT findings of concern for multiple intra-axial masses. There is small acute subarachnoid blood present and about 3 mm of leftward midline shift. MRI of the brain with and without contrast recommended. Michael Freitas MD Chest X-Ray 09/30/16 1453 Signed Impressions: Service Date/Time: Friday, September 30, 2016 15:23 - CONCLUSION: No acute cardiopulmonary disease demonstrated. Appropriate endotracheal tube tip position. Nasogastric tube courses into the stomach, tip not included on the study. Michael Freitas MD Objective Remarks GENERAL: Young male, lying in bed, intubated, sedated, critically ill HEENT: Pupils 3 mm, equal, sluggishly reactive. Mucous membranes moist. NECK: No JVD. Trachea midline. Orotracheally intubated CHEST: Equal chest rise. Clear to auscultation. CARDIOVASCULAR: Tachycardic rate, regular rhythm. II/ systolic and diastolic murmur. ABDOMEN: Soft, nontender, nondistended. No guarding. MUSCULOSKELETAL: rash on feet has improved. No peripheral edema. Distal pulses 2+. NEUROLOGICAL: RASS -3. CAM+. does not follow commands. localizes in the RUE. withdraws in LUE, BLE. 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 Still critically ill and with ongoing encephalopathy. evidence of worsening cerebral edema, particularly right temporal area. will restart hypertonic saline. will attempt to avoid mannitol given gentamicin induction therapy and to support renal perfusion. neuro exam stable. continue to follow cultures. We will continue with supportive care. Remains very critically ill at this time. If we do not have significant improvements, will need to consider trach. Plan by systems: Neurologic: Multiple acute septic CVAs Cerebral edema Small subarachnoid hemorrhage Midline shift, 4 mm Metabolic encephalopathy Agitated Delirium Neurosurgery consulted, Dr. Michelle q1h neuro checks --prop/fent for goal RASS -2. --avoid long-acting sedating meds --EEG 10/01- negative for seizures -- seroquel 100mg q8hr. -- melatonin to assist with sleep/wake cycles -- delirium and agitation persists. -- interval head CT in AM to re-assess edema. -- 250cc 3% bolus x 1 -- restart 3% drip at 30 cc/hr. Respiratory: Acute hypoxic and hypercarbic respiratory failure Vent bundle Head of bed 30 Avoid hypercarbia and hypoxia daily SBTs. Wean FiO2 for goal SPO2 greater than 92% Cardiovascular: Aortic valve endocarditis Moderate aortic insufficiency Cardiogenic shock- resolved. Septic shock- resolving. Arterial line, central line for invasive central pressure monitoring --trend CVP. Abx as described below 2d echo 10/01: aortic valve vegetations, moderate AI. back on levophed 8mcg/min today. continue to wean as tolerated for map > 65. Renal: Acute kidney injury- resolved. Jerez for accurate I's and O's -- Strict I/Os FEN/GI: Hypermagnesemia Lactic acidosis- resolved. Severe metabolic acidosis- resolved. Acute protein calorie malnutritionmild Elevated LFTs jevity 1.5, nutrition consult. OG tube to suction Daily BMP Heme/ID: Anemia, likely secondary to hemolysis from valvulopathy Infective endocarditis Septic shock- resolving. 10/01 blood cultures: MSSA --10/01 sputum culture: MSSA --10/02 blood cultures: MSSA --10/03 blood cultures: MSSA --10/04 bl cx: MSSA --10/05 bl cx: NGTD x 48h --10/06 bl cx: NGTD vancomycin, flagyl d/c 10/02. --oxacillin started 10/02 --gentamicin induction therapy per ID. started 10/05 Infectious disease following: Dontfraid Endocrine: Hyperglycemia of critical illness -- SSI, every 6 hours, medium scale TSH 0.16, free T4 1.07, T3 < 0.5: likely sick euthyroid. Prophylaxis: GI Prophylaxis Protonix IV DVT Prophylaxis -- SCDs Holding pharmacologic DVT prophylaxis in the setting of cerebral hemorrhage Lines: 09/30 radial arterial line --09/30 left SC TLC --Solitario Dispo: Remain in the ICU. He remains critically ill. This patient remains critically ill with one or more organ systems which are or may become a threat to life. I have spent in excess of 39 minutes discontinuously in the care and management of this patient. This time is exclusive of procedures, and includes, but is not limited to, evaluation of the patient, review of the medical record, discussions with family, consultants, nursing staff, or respiratory therapy, and documentation in the medical record. Yahir Dominguez MD October 08, 2016 07:24
[2016-10-08] MEDS: DOCUSATE SODIUM 100 MG/10 ML UDC G-TUBE SCH ×2 (07:36→20:51)
[2016-10-08] MEDS: CHLORHEXIDINE 0.12% (ORAL KIT) 15 ML CUP MT SCH ×2 (07:36→20:51)
[2016-10-08] MEDS: PROPRANOLOL HCL 10 MG TAB PO SCH ×2 (07:37→16:58)
[2016-10-08] MEDS: SODIUM CHLORIDE 0.9% FLUSH 10 ML FLUSH IV FLUSH SCH ×2 (09:00→21:00)
[2016-10-08] MEDS: ARTIFICIAL TEARS OPTH SOLN 15 ML BTL EACH EYE SCH ×3 (09:00→17:00)
[2016-10-08] MEDS: PANTOPRAZOLE SODIUM 40 MG VIAL IV SCH (09:27)
[2016-10-08] MEDS: 3% SALINE INJ 500 ML IV SCH (09:28)
[2016-10-08] MEDS: LACTATED RINGER'S 1000 ML INJ 1,000 ML IV SCH (09:40)
--- NOTE | 2016-10-08 11:57 | HHI.IDPN ---
Note Infectious Disease Note Patient is on the vent. On Levophed 3mcg. Sedated. Becomes agitated when sedation is weaned. Temp lower. Tolerating Oxacillin. Good urine output. WBC still elevated. Sputum has staph aureus. Blood cultures 09/30 Staph aureus in 5 of 6 bottles. Blood culture 10/02 positive. staph aureus. Blood culture 10/03 positive. staph aureus. Blood culture 10/04 positive. staph aureus. Blood culture 10/05 negative. Blood culture 10/06 negative. Patient was brought to the emergency department with altered mental status. Was evaluated for rash at preceding ED evaluation 2 days prior. Medicines in weeks before admission: Clindamycin, Doxycycline, acyclovir, Adderral, Tylenol, prednisone, omeprazole, Ibuprofen. PAST MEDICAL HISTORY 1. Substance abuse. The patient was in rehabilitation 1 year ago. 2. ADHD. 3. Degenerative disk disease. ALLERGIES Reportedly the patient is allergic to SULFA, PENICILLIN, TORADOL, CODEINE. ANTIBIOTICS: Oxacillin. Current Medications Medications (Trade) Dose Ordered Sig/Beena Route PRN Reason Start Time Stop Time Status Last Admin Dose Admin Chlorhexidine Gluconate 15 ml 15 ml BID@08,20 MT 09/30/16 20:00 10/08/16 07:36 Propofol 100 ml @ 0 mls/hr TITRATE IV 09/30/16 17:45 10/08/16 05:04 Fentanyl Citrate (fentaNYL DRIP) 250 ml @ 0 mls/hr TITRATE IV 09/30/16 17:45 10/08/16 06:31 Sodium Chloride (NS Flush) 2 ml UNSCH PRN IV FLUSH FLUSH AFTER USING IV ACCESS 09/30/16 17:45 Sodium Chloride (NS Flush) 2 ml BID IV FLUSH 09/30/16 21:00 10/08/16 09:00 Acetaminophen (Tylenol) 650 mg Q6H PRN PO Fever > 100F 09/30/16 17:45 10/07/16 21:13 Pantoprazole Sodium (Protonix Inj) 40 mg DAILY IV 10/01/16 09:00 10/08/16 09:27 Artificial Tears (Tears Naturale Opth Soln) 1 drop TID EACH EYE 09/30/16 18:00 10/08/16 09:00 Ondansetron HCl (Zofran Inj) 4 mg Q6H PRN IV NAUSEA OR VOMITING 09/30/16 17:45 Docusate Sodium (Colace Liq) 100 mg Q12H G-TUBE 09/30/16 20:00 10/08/16 07:36 Sennosides (Senna Liq) 17.6 mg Q12H PRN G-TUBE CONSTIPATION 09/30/16 17:45 10/05/16 11:32 Miscellaneous Information 1 Q361D XX 09/30/16 17:45 09/30/16 17:45 Chlorhexidine Gluconate (Chlorhexidine 2% Cloth) Taper DAILY@04 TOP 10/01/16 04:00 09/27/17 03:59 10/06/16 04:00 Chlorhexidine Gluconate (Chlorhexidine 2% Cloth) 3 pack UNSCH PRN TOP HYGIENIC CARE 09/30/16 17:45 Dextrose (D50w (Vial) Inj) 50 ml UNSCH PRN IV HYPOGLYCEMIA-SEE COMMENTS 09/30/16 18:00 Glucagon (Glucagon Inj) 1 mg UNSCH PRN OTHER HYPOGLYCEMIA-SEE COMMENTS 09/30/16 18:00 Insulin Human Regular 1 1 Q6HR SQ 09/30/16 18:00 10/03/16 23:16 Norepinephrine Bitartrate/Sodium Chloride (Levophed Inj/NS 250 ml Inj) 254 ml @ 0 mls/hr TITRATE IV 10/01/16 04:15 10/06/16 04:12 Propranolol HCl 10 mg 10 mg Q8H PO 10/04/16 08:00 10/08/16 07:37 Gentamicin Sulfate 70 mg/ Sodium Chloride 101.75 ml @ 100 mls/ hr Q8H IV 10/05/16 12:00 10/08/16 11:27 Lactated Ringer's (Lr 1000 ml Inj) 1,000 ml @ 75 mls/hr [id number] IV 10/05/16 15:00 10/07/16 20:20 Quetiapine Fumarate (SEROquel) 100 mg Q8HR PO 10/06/16 14:00 10/08/16 06:19 Melatonin 5 mg 5 mg HS PO 10/06/16 21:00 10/07/16 19:48 Oxacillin Sodium 2 gm/Sodium Chloride 100 ml @ 200 mls/hr Q4H IV 10/07/16 11:00 10/08/16 10:38 Sodium Chloride (Sodium Chloride 3% Inj) 500 ml @ 30 mls/hr CONTINUOUS IV 10/08/16 06:45 10/08/16 09:28 OBJECTIVE: Vital Signs Date Time Temp Pulse Resp B/P Pulse Ox O2 Delivery O2 Flow Rate FiO2 10/08/16 10:00 79 10/08/16 08:41 40 10/08/16 08:41 100 40 10/08/16 08:00 87 10/08/16 08:00 99.4 81 14 143/57 100 10/08/16 08:00 40 10/08/16 06:00 84 10/08/16 05:20 100 100 10/08/16 04:00 40 10/08/16 04:00 99.0 94 16 140/55 100 10/08/16 04:00 94 10/08/16 03:51 99 40 10/08/16 02:00 87 10/08/16 01:08 100 40 10/08/16 00:00 98.3 90 15 144/59 100 10/08/16 00:00 90 10/08/16 00:00 40 10/07/16 22:14 100 60 10/07/16 22:00 70 10/07/16 20:17 100 40 10/07/16 20:00 100 10/07/16 20:00 100.3 100 21 153/66 100 10/07/16 20:00 40 10/07/16 18:00 85 10/07/16 17:28 100 40 10/07/16 16:00 99.7 81 12 112/55 100 10/07/16 16:00 40 10/07/16 16:00 87 10/07/16 14:00 85 10/07/16 12:30 40 10/07/16 12:00 50 10/07/16 12:00 100.1 80 16 110/55 100 10/07/16 12:00 95 10/07/16 10/07/16 10/08/16 15:00 23:00 07:00 Intake Total 1559 ml 1065 ml 1269 ml Output Total 1200 ml 1325 ml 1700 ml Balance 359 ml -260 ml -431 ml Intake IV Total 951 ml 578 ml 714 ml Tube Feeding 333 ml 307 ml 435 ml Tube Irrigant 25 ml Other 250 ml 180 ml 120 ml Output Urine Total 1200 ml 1325 ml 1700 ml # Bowel Movements 1 0 0 Laboratory Tests Test 10/07/16 10/08/16 05:20 04:40 White Blood Count 20.8 TH/MM3 21.6 TH/MM3 Red Blood Count 2.68 MIL/MM3 2.75 MIL/MM3 Hemoglobin 7.9 GM/DL 8.0 GM/DL Hematocrit 23.5 % 23.8 % Mean Corpuscular Volume 87.4 FL 86.7 FL Mean Corpuscular Hemoglobin 29.5 PG 29.1 PG Mean Corpuscular Hemoglobin 33.7 % 33.6 % Concent Red Cell Distribution Width 14.0 % 13.6 % Platelet Count 251 TH/MM3 292 TH/MM3 Mean Platelet Volume 8.2 FL 8.1 FL Laboratory Tests Test 10/07/16 10/08/16 05:20 04:40 Sodium Level 140 MEQ/L 140 MEQ/L Potassium Level 4.1 MEQ/L 4.1 MEQ/L Chloride Level 103 MEQ/L 103 MEQ/L Carbon Dioxide Level 30.7 MEQ/L 29.7 MEQ/L Anion Gap 6 MEQ/L 7 MEQ/L Blood Urea Nitrogen 18 MG/DL 16 MG/DL Creatinine 0.63 MG/DL 0.57 MG/DL Estimat Glomerular Filtration 154 ML/MIN 173 ML/MIN Rate Random Glucose 119 MG/DL 133 MG/DL Calcium Level 7.8 MG/DL 8.0 MG/DL Microbiology Date/Time Procedure Status Source Growth 10/05/16 13:10 Aerobic Blood Culture - Preliminary Resulted Blood Peripheral NO GROWTH IN 3 DAYS 10/05/16 13:10 Anaerobic Blood Culture - Preliminary Resulted Blood Peripheral NO GROWTH IN 3 DAYS 10/05/16 13:19 Aerobic Blood Culture - Preliminary Resulted Blood Peripheral NO GROWTH IN 3 DAYS 10/05/16 13:19 Anaerobic Blood Culture - Preliminary Resulted Blood Peripheral NO GROWTH IN 3 DAYS 10/06/16 17:05 Aerobic Blood Culture - Preliminary Resulted Blood Peripheral NO GROWTH IN 2 DAYS 10/06/16 17:05 Anaerobic Blood Culture - Preliminary Resulted Blood Peripheral NO GROWTH IN 2 DAYS 10/06/16 17:19 Aerobic Blood Culture - Preliminary Resulted Blood Peripheral NO GROWTH IN 2 DAYS 10/06/16 17:19 Anaerobic Blood Culture - Preliminary Resulted Blood Peripheral NO GROWTH IN 2 DAYS IMAGING: Head CT 10/08/16 0600 Signed Impressions: Service Date/Time: Saturday, October 08, 2016 05:31 - CONCLUSION: Increasing mass effect mainly associated with the right temporal process Michael Choe MD Head CT 10/03/16 0945 Signed Impressions: Service Date/Time: Monday, October 03, 2016 09:51 - CONCLUSION: 1. Multiple foci of low attenuation seen within the cerebral and cerebellar hemispheres consistent with evolving infarcts. Mykel Cantu MD Chest X-Ray 10/01/16 0000 Signed Impressions: Service Date/Time: Saturday, October 01, 2016 05:10 - CONCLUSION: Slight worsening bilateral perihilar infiltrates. 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 Please see above. No mass or evidence of abscess. 4 mm of leftward midline shift. Small subarachnoid blood. Michael Freitas MD Renal Ultrasound 09/30/16 0000 Signed Impressions: Service Date/Time: Friday, September 30, 2016 18:45 - CONCLUSION: Ultrasound appearance of the kidneys within normal limits. Jerez catheter in the urinary bladder. Nonspecific splenomegaly incidentally noted. Michael Freitas MD Head Magnetic Resonance Angiography 09/30/16 0000 Signed Impressions: Service Date/Time: Friday, September 30, 2016 17:42 - CONCLUSION: No occlusion, aneurysm or other acute intracranial vascular abnormality demonstrated. Michael Freitas MD PHYSICAL EXAMINATION GENERAL: Patient is sedated. On vent. HEENT: No icterus. Oropharynx: dry mucosa. NECK: No palpable adenopathy. No swelling. LUNGS: Basilar rhonchi. HEART: 2/6 systolic murmur at the left sternal border. No rubs or gallops. ABDOMEN: Bowel sounds are present, soft, flat, nontender. EXTREMITIES: No clubbing or cyanosis or edema. Embolic purpuric lesions at the plantar aspect of the 4th and 5th toe on the left and the great toe on the right and several pinpoint purpuric lesions at the base of the foot beyond the toe plantar aspect resolving. SKIN: Faded rash at the feet dorsum almost resolved. There is peeled skin at the plantar aspect of both feet which is dried. Resolved erythema at the arms. There is no erythema at the chest, trunk, neck or face. The lower extremities have no edema. NEURO: Unable to assess. PSYCH: unable to assess. IMPRESSION 1. Septic shock due to Staph aureus. 2. Acute endocarditis. [place] aortic valve. Staph aureus. 3. Acute respiratory failure. 4. Bilateral lung infiltrates, probably secondary to septic emboli./ PNA Staph aureus. 5. 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 6. History of IV drug abuse. Unknown current use status. 7. Antibiotic allergies. The patient reportedly is allergic to penicillin and sulfa. Confirmed with his mom who reported to me that he has been able to tolerate Amoxicillin. 8. Recent drug rash. It is not clear what antibiotic the patient received prior to development of the rash and this is yet to be definitively confirmed. Appears to be improving. RECOMMENDATIONS: 1. Continue Oxacillin 2 grams Q 4 hours. 2. Continue Gentamycin in light of persistent bacteremia. Monitor renal function. 3. Monitor temps. 4. Monitor clinical status. Nemesio Jackson MD October 08, 2016 11:57
[2016-10-08] MEDS: NOREPINEPHRINE INJ 4 MG in SODIUM CHLOR 0.9% 250 ML INJ 250 ML IV SCH (14:26)
--- NOTE | 2016-10-08 14:53 | HHI.HCPN ---
Reason for visit a. To assist with evaluation and management of symptoms including:dyspnea, encephalopathy b. To assist medical decision maker(s) with: better understanding of current medical conditions; weighing benefits/burdens of medical treatment options; making medical treatment decisions. (Sandy Liu) Subjective/Interval History Patient seen today to follow-up on comfort, provided medical update to decision makers. Pt stable over the weekend. July CPAP nearly 10 hrs yesterday. Remains on fentanyl, diprivan for sedation. nursing reports when sedation lightened significant agitation. F/up CT brain increase in shift, persistent edema daryl to right. Nursing reports following simple commands RUE, RLE when lightening. + some spont movement LLE, LUE- no following commands to LT. Low grade fevers, tmax 100.3. ID following, now on gentamicin, oxacillin. Cultures 10/05 negative x 3 days, cultures 10/06 negative (cultures 10/04 + MSSA). Tolerating TF, + BM today, no other BM documented. Patient seen in room with Nora Cervantes social studies department chair. Sister Anay, mother at bedside just on her way out. Updates have both, review of current conditions, assessments, recent diagnostics. Review that as this week progresses if patient is not showing signs of tolerating weaning off the ventilator or safe for medical extubation, then will likely need tracheostomy/PEG decisions. Goals remain aggressive. Mother informs he had a good weekend tolerating CPAP for many hours yesterday she feels it might of born amount which is why he did not tolerate for as long today. They both indicate they have been receiving thorough updates from nurses, other providers. They expressed gratitude for ongoing care and support. D/w critical care, primary RN. To my exam- on sedation. 150 mcgs/hr fentanyl, diprivan 15mccgs/kg/min. Moving RU, RL spontaneously, restless at times ,slight eye opening. +coughing against vent, nursing providing care. . (Sandy Liu) Advance Directives Living Will: Never completed Health Care Surrogate: Never completed Durable Power of Tandem Mill Operator: Completed, but not made available (mother reports has POA, not clear if this includes medical decision making, awaiting copies of documents) (Sandy Liu) Objective Vital Signs Date Time Temp Pulse Resp B/P Pulse Ox O2 Delivery O2 Flow Rate FiO2 10/08/16 12:00 45 10/08/16 12:00 103 10/08/16 12:00 99.4 102 13 122/53 98 10/08/16 11:52 100 40 10/08/16 10:00 79 10/08/16 08:41 40 10/08/16 08:41 100 40 10/08/16 08:00 87 10/08/16 08:00 99.4 81 14 143/57 100 10/08/16 08:00 40 10/08/16 06:00 84 10/08/16 05:20 100 100 10/08/16 04:00 40 10/08/16 04:00 99.0 94 16 140/55 100 10/08/16 04:00 94 10/08/16 03:51 99 40 10/08/16 02:00 87 10/08/16 01:08 100 40 10/08/16 00:00 98.3 90 15 144/59 100 10/08/16 00:00 90 10/08/16 00:00 40 10/07/16 22:14 100 60 10/07/16 22:00 70 10/07/16 20:17 100 40 10/07/16 20:00 100 10/07/16 20:00 100.3 100 21 153/66 100 10/07/16 20:00 40 10/07/16 18:00 85 10/07/16 17:28 100 40 10/07/16 16:00 99.7 81 12 112/55 100 10/07/16 16:00 40 10/07/16 16:00 87 Intake & Output 10/08/16 10/08/16 07:00 19:00 Intake Total 2334 ml Output Total 3025 ml Balance -691 ml Intake IV Total 1292 ml Tube Feeding 742 ml Other 300 ml Output Urine Total 3025 ml # Bowel Movements 0 Physical Exam CONSTITUTIONAL/GENERAL: This is an adequately nourished patient, peaceful on mech vent TUBES/LINES/DRAINS: Lt SC central line. ETT, OGT, carrera catheter SKIN: No jaundice, or lesions. + slight resolving peeling bottom feet/Embolic purpuric lesions on LT great toe. erythema, peeling bilateral palms of hands, + erythema, left more so than right. Skin warm CARDIOVASCULAR: Regular rate and rhythm without murmur. Peripheral pulses symmetric. no peripheral edema RESPIRATORY/CHEST: Symmetric, unlabored respirations on mech vent. slightly tachypneic. Course air movement throughout lungs. breath sounds equal bilat GASTROINTESTINAL: Abdomen soft, nondistended. No palpable masses. No guarding. Bowel sounds present. TF infusing via OGT. GENITOURINARY: Without palpable bladder distension. Carrera catheter in place clear dark yellow urine. NEUROLOGICAL: sedated on mech vent.(on sedation- 150mcgs fentanyl/hr, 15mcgs/kg/ min diprivan) slight eye opening , does blink/grimace when attempt to examine pupils. Spont movement RUE, RUE. Localizes to touch/pain BLE, RUE, no movement noted LUE. PSYCHIATRIC: -- limited assess due to condition/sedation, slight restlessness while nursing administering care. . (Sandy Liu) Diagnostic Tests Laboratory Laboratory Tests Test 10/06/16 10/07/16 10/08/16 10/08/16 04:15 05:20 04:40 12:15 White Blood Count 21.5 TH/MM3 20.8 TH/MM3 21.6 TH/MM3 (4.0-11.0) (4.0-11.0) (4.0-11.0) Red Blood Count 2.81 MIL/MM3 2.68 MIL/MM3 2.75 MIL/MM3 (4.50-5.90) (4.50-5.90) (4.50-5.90) Hemoglobin 8.3 GM/DL 7.9 GM/DL 8.0 GM/DL (13.0-17.0) (13.0-17.0) (13.0-17.0) Hematocrit 24.4 % 23.5 % 23.8 % (39.0-51.0) (39.0-51.0) (39.0-51.0) Mean Corpuscular Volume 86.7 FL 87.4 FL 86.7 FL (80.0-100.0) (80.0-100.0) (80.0-100.0) Mean Corpuscular Hemoglobin 29.3 PG 29.5 PG 29.1 PG (27.0-34.0) (27.0-34.0) (27.0-34.0) Mean Corpuscular Hemoglobin 33.8 % 33.7 % 33.6 % Concent (32.0-36.0) (32.0-36.0) (32.0-36.0) Red Cell Distribution Width 14.2 % 14.0 % 13.6 % (11.6-17.2) (11.6-17.2) (11.6-17.2) Platelet Count 208 TH/MM3 251 TH/MM3 292 TH/MM3 (150-450) (150-450) (150-450) Mean Platelet Volume 8.3 FL 8.2 FL 8.1 FL (7.0-11.0) (7.0-11.0) (7.0-11.0) Sodium Level 144 MEQ/L 140 MEQ/L 140 MEQ/L 140 MEQ/L (136-145) (136-145) (136-145) (136-145) Potassium Level 4.1 MEQ/L 4.1 MEQ/L 4.1 MEQ/L (3.5-5.1) (3.5-5.1) (3.5-5.1) Chloride Level 109 MEQ/L 103 MEQ/L 103 MEQ/L (98-107) (98-107) (98-107) Carbon Dioxide Level 31.7 MEQ/L 30.7 MEQ/L 29.7 MEQ/L (21.0-32.0) (21.0-32.0) (21.0-32.0) Anion Gap 3 MEQ/L (5-15) 6 MEQ/L (5-15) 7 MEQ/L (5-15) Blood Urea Nitrogen 17 MG/DL (7-18) 18 MG/DL (7-18) 16 MG/DL (7-18) Creatinine 0.61 MG/DL 0.63 MG/DL 0.57 MG/DL (0.60-1.30) (0.60-1.30) (0.60-1.30) Estimat Glomerular Filtration 160 ML/MIN 154 ML/MIN 173 ML/MIN Rate (>89) (>89) (>89) Random Glucose 163 MG/DL 119 MG/DL 133 MG/DL (74-106) (74-106) (74-106) Calcium Level 8.2 MG/DL 7.8 MG/DL 8.0 MG/DL (8.5-10.1) (8.5-10.1) (8.5-10.1) (Sandy Liu) Result Diagram: 10/08/16 0440 10/08/16 1215 Microbiology Microbiology Date/Time Procedure Status Source Growth 10/06/16 17:05 Aerobic Blood Culture - Preliminary Resulted Blood Peripheral NO GROWTH IN 2 DAYS 10/06/16 17:05 Anaerobic Blood Culture - Preliminary Resulted Blood Peripheral NO GROWTH IN 2 DAYS 10/06/16 17:19 Aerobic Blood Culture - Preliminary Resulted Blood Peripheral NO GROWTH IN 2 DAYS 10/06/16 17:19 Anaerobic Blood Culture - Preliminary Resulted Blood Peripheral NO GROWTH IN 2 DAYS Imaging Last Impressions Head CT 10/08/16 0600 Signed Impressions: Service Date/Time: Saturday, October 08, 2016 05:31 - CONCLUSION: Increasing mass effect mainly associated with the right temporal process Michael Choe MD Chest X-Ray 10/01/16 0000 Signed Impressions: Service Date/Time: Saturday, October 01, 2016 05:10 - CONCLUSION: Slight worsening bilateral perihilar infiltrates. 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 Please see above. No mass or evidence of abscess. 4 mm of leftward midline shift. Small subarachnoid blood. Michael Freitas MD Renal Ultrasound 09/30/16 0000 Signed Impressions: Service Date/Time: Friday, September 30, 2016 18:45 - CONCLUSION: Ultrasound appearance of the kidneys within normal limits. Carrera catheter in the urinary bladder. Nonspecific splenomegaly incidentally noted. Michael Freitas MD Head Magnetic Resonance Angiography 09/30/16 0000 Signed Impressions: Service Date/Time: Friday, September 30, 2016 17:42 - CONCLUSION: No occlusion, aneurysm or other acute intracranial vascular abnormality demonstrated. Michael Freitas MD Procedures 09/30left subclavian central line, left radial arterial line (Sandy Liu) Assessment and Plan Disease Oriented Problem List: (1) Intracranial hemorrhage (2) Sepsis (3) Elevated troponin (4) Subarachnoid hemorrhage (5) Cerebral edema (6) Metabolic encephalopathy (7) Acute respiratory failure with hypoxia (8) Septic shock due to Staphylococcus aureus (9) Rash and nonspecific skin eruption (10) Substance abuse Symptom Scale: (1) Dyspnea (2) Encephalopathy (3) Agitation (4) Constipation Pertinent Non-Medical Issues Psychosocial:originally from [place], lived in [place] since . HS education. Was incarcerated and then in drug rehabilitation in [facility]. 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 Father (parents ) lived in [place] with support from family there. Supported by local friends, coworkers, apartment landlord. Spiritual:believes in God, no particular affiliation. would want ongoing education program manager support. Legal: Patient is not able to participate in decision-making due to clinical condition. He is not . Per [place] statutes his parents would be legal decision makers, mother is serving as primary supported by his sister and father. She reports she has POA paperwork. Ethical issues impacting care: Important Contacts mother Felicita Roberts [phone] (HCP) sister Elizabeth Rios [phone] father Pradeep Rios [phone] . 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 He is currently in multiorgan failure, critically ill. Possible he can recover with prolonged resuscitation , prolonged ICU course. Remains very high risk for further complications and setbacks though possible he can survive this initial injury/ illness. Code Status: Full Code Plan * Legal decision maker: Patient is not able to participate in decision-making due to clinical condition. He is not . Per [place] statutes his parents would be legal decision makers, mother is serving as primary supported by his sister and father. She reports she has POA paperwork. * Goals: Met w pt mother, father, sister at length 10/03 upon initial consultation. Patient sister appears to have a reasonable understanding of conditions, prognosis. Patient mother appears to have a very simple understanding of conditions and prognosis. 10/08goals remain aggressive. Likely they would proceed with tracheostomy and PEG if needed. Patient's mother is hoping for a miracle and wants to continue whatever measures available to help patient recover. They are open to ongoing to conversations as clinical course evolves. * CODE STATUS: full * SYMPTOMS: --dyspnea- intubated for AMS. remains on mech vent; sedated, no tachypnea observed or reported while on sedative- when lightened agitation/tachypnea -- agitation- hx substance abuse; hx ADD, on adderall. currently sedated with diprivan, fentanyl, agitation/tachycardia when sedation lightened; nursing titrating fentanyl as needed per critical care -- encephalopathy- multifactorial-- +sepsis, embolic CVA, hx substance abuse , EEG neg seizure -- constipation - no BM recorded since admission 10/01, has scheduled colreyna, d/w certified nursing assistant prn senna 10/05-->> has had BM today. Recommend consider scheduled senna to prevent constipation. +flatus, + BS active; cont to evaluate * Palliative care will continue to follow during hospital course as condition evolves, to assist patient/decision-maker with understanding of medical conditions, weighing benefits/burdens of treatment options, for clarification of goals of treatment. Additionally will assist with any symptoms of palliative concern (Sandy Liu) Time Spent Total Floor Time (mins): 20 (Sandy Liu) Attestation To help prompt me to consider important information that might be impacting today's encounter and assessment, information from prior notes written by myself or my colleagues may have been "brought forward" into today's note. My signature on this note, however, is an attestation that I personally performed the exam, history, and/or decision-making noted today, and, unless otherwise indicated, the interactions with patient, family, and staff as well as the review of records all occurred today. I also attest that the listed assessment and stated plan reflect my best clinical judgment today based on the combination of historical information, prior notes, and today's exam/ interactions. When time spent is documented, it refers only to time spent today by the signer, or if indicated, combined time spent today by collaborating physician/nurse practitioner. (Sandy Liu) Collaborating MD Comments d/w gerry, agree with assessment and plan. (Jose Linares MD) Sandy Liu October 08, 2016 14:53 Jose Linares MD October 09, 2016 11:35
[2016-10-08] MEDS: ACETAMINOPHEN 325 MG TAB PO PRN (16:59)
[2016-10-08] MEDS: MELATONIN 5 MG TAB PO SCH (20:51)
[2016-10-09] VITALS (18 sets, daily range): BP systolic 112–128; BP diastolic 45–63; PULSE 80–110; RESP 15–20; TEMP 98.7–100.7; O2SAT 98–100
[2016-10-09] MEDS: PROPRANOLOL HCL 10 MG TAB PO SCH ×2 (00:11→07:15)
[2016-10-09] MEDS: OXACILLIN INJ 2 GM in SODIUM CHLORIDE 0.9% INJ 100 ML IV SCH ×6 (03:07→23:43)
[2016-10-09] MEDS: GENTAMICIN INJ 70 MG in SODIUM CHLORIDE 0.9% INJ 100 ML IV SCH ×3 (03:07→20:07)
[2016-10-09] MEDS: PROPOFOL 1000 MG/100 ML INJ 100 ML IV SCH ×3 (03:37→17:43)
[2016-10-09] MEDS: CHLORHEXIDINE GLUCONATE 2 % 1 PACK (2 CLOTHS) TOP SCH (03:38)
[2016-10-09] MEDS: RESP: ALBUTEROL 2.5 MG/IPRATROPIUM 0.5 MG NEB (SCH) INH ×4 (03:55→21:21)
[2016-10-09] MEDS: NOREPINEPHRINE INJ 4 MG in SODIUM CHLOR 0.9% 250 ML INJ 250 ML IV SCH ×2 (05:04→15:47)
[2016-10-09] MEDS: QUEtiapine FUMARATE 100 MG TAB PO SCH ×3 (05:13→23:42)
[2016-10-09] MEDS: INSULIN NovoLIN REGULAR SUPPLEMENTAL SCALE SQ SCH ×5 (06:00→23:44)
[2016-10-09 06:48] LABS: MEAN CELL VOLUME 86.7 FL (80.0-100.0); MEAN CORPUSCULAR HGB CONC 34.6 % (32.0-36.0); PLATELET COUNT 331 TH/MM3 (150-450); RED BLOOD COUNT 2.32 MIL/MM3 (4.50-5.90); RED CELL DISTRIBUTION WIDTH 13.7 % (11.6-17.2); WHITE BLOOD COUNT 17.2 TH/MM3 (4.0-11.0)
[2016-10-09 07:10] LABS: REVIEW FLAG FINAL
[2016-10-09 07:12] LABS: HEMATOCRIT 20.1 % (39.0-51.0)
[2016-10-09 07:13] LABS: BICARBONATE 25.5 MEQ/L (21.0-32.0); POTASSIUM 3.9 MEQ/L (3.5-5.1)
[2016-10-09] MEDS: DOCUSATE SODIUM 100 MG/10 ML UDC G-TUBE SCH ×2 (07:14→20:09)
[2016-10-09] MEDS: CHLORHEXIDINE 0.12% (ORAL KIT) 15 ML CUP MT SCH ×2 (07:15→20:07)
[2016-10-09] MEDS: ARTIFICIAL TEARS OPTH SOLN 15 ML BTL EACH EYE SCH ×3 (08:05→17:39)
[2016-10-09] MEDS: SODIUM CHLORIDE 0.9% FLUSH 10 ML FLUSH IV FLUSH SCH ×2 (08:05→20:08)
[2016-10-09] MEDS: PANTOPRAZOLE SODIUM 40 MG VIAL IV SCH (08:05)
[2016-10-09] MEDS: ACETAMINOPHEN 325 MG TAB PO PRN ×3 (08:35→20:08)
[2016-10-09] MEDS: fentaNYL DRIP 250 ML IV SCH (10:01)
[2016-10-09] MEDS: 3% SALINE INJ 500 ML IV SCH (10:02)
--- NOTE | 2016-10-09 10:46 | HHI.NSPN ---
(Elliott Fragoso) History Chief Complaint: Intubated & sedated (Elliott Fragoso) Interval History 10/01: The HPI is obtained from a review of the EMR due to the patient's altered mental status and intubation. This is a 26-year-old male who was found by his landlord on with altered mental status and called EMS. Upon arrival of EMS the patient had a GCS of 10. In the emergency department the patient was hypotensive and tachycardiac. He was emergently intubated for airway protection. His CT brain demonstrated significant areas of infarction to the right frontal, temporal and cerebellar regions as well as a small subarachnoid haemorrhage to the superior right parietal region. There was a 3 mm midline shift as well as effacement on the right. The patient's laboratory data is significant for white blood cell count of 19,000, haemoglobin of 9.9, lactate of 3.7, creatinine 1.69, CK 372, troponin of 11.9. His urine drug screen is positive for opiates and amphetamines. He was subsequently admitted to the [facility] for further management and monitoring. Per EMS and ED reports, patient was seen approximately 10 days prior to admission by an unknown physician in the clinic and given antibiotic for fever. After taking the antibiotic, the patient had a new red rash on his hands and healing on his feet. He he was seen in the emergency department 2 days prior to admission for low-grade fever and congestion, generalized weakness, lightheadedness. At that time she was given prescription for prednisone 40 mg daily for 5 days. The patient's landlord apparently found the patient today with altered mental status and called EMS. When EMS arrived, his GCS was 10. There is reports that the patient has a history of substance abuse and was recently in rehabilitation. The patient's roommate confirmed to the [place] Administrator that the patient had recently been in rehabilitation due to a history of substance abuse. The roommate did not think he was doing any illicit drugs recently. 10/02: The patient remains intubated & sedated. He withdraws to painful stimuli to the extremities. 10/03: The patient is sedated with propofol & fentanyl. Nursing reports that he does move the RUE mostly but will move the BLE when the sedation is off. Nursing reported no movement of the LUE. When EEG was at the bedside with the sedation down the patient became quite agitated and was kicking out. 10/04: The patient remains sedated. Nursing states he continues to be agitated when the sedation is off. A CT brain yesterday demonstrated multiple evolving infarcts. 10/05: The patient is still sedated with propofol & fentanyl. He does not appear to be responding to verbal commands. 10/09: The patient remains sedated with propofol & fentanyl. He did open his right eye on his own as Nursing & this practitioner were talking in the room. He did withdraw on the left side to noxious stimuli. (Elliott Fragoso) System Review Comments Unable to obtain ROS due to patient's mental status. (Elliott Fragoso) Exam Results Vital Signs Date Time Temp Pulse Resp B/P Pulse Ox O2 Delivery O2 Flow Rate FiO2 10/09/16 10:00 83 10/09/16 08:21 30 10/09/16 08:21 100 10/09/16 08:00 99.9 20 122/45 Intake and Output 10/08/16 10/08/16 10/08/16 07:59 15:59 23:59 Intake Total 1269 ml 1520 ml 1063 ml Output Total 1700 ml 1600 ml 900 ml Balance -431 ml -80 ml 163 ml (Elliott Fragoso) Physical Examination GENERAL: Sedated & intubated, no agitation. HEENT: Normocephalic, atraumatic. PERRL 3 mm, sluggish. Mucous membranes moist, orally intubated, OGT present. NECK: No nuchal rigidity, no JVD, trachea midline. CHEST: Slightly coarse bilaterally, equal excursion, non-laboured, orally intubated & mechanically ventilated. CARDIOVASCULAR: S1S2 w/RRR, radial & pedal pulses 2+ bilaterally, cap refill < 2 sec, 1+ edema at ankles but less to feet. Monitor is sinus rhythm w/o any ectopy noted. ABDOMEN: Abdomen soft, nontender, positive bowel sounds, OGT with enteral feeds. GENITOURINARY: Catheter to BSD. MUSCULOSKELETAL: Moves the LUE & LLE to stimuli, no evident TTP, no evident deformity or clubbing. INTEGUMENTARY: The nonblanching macular rash to the feet & ankle continues to improve, continued evolution of skin desquamation. The tip of the right great toe with evolving necrotic area. NEUROLOGICAL: Sedated & intubated, GCS 9T (E3 V1T M5) Right eye opening with verbal stimuli after a while He is not following any commands, he withdraws the LUE & LLE to noxious stimuli to any nail bed, trace movement possibly to the RLE but there is no movement of the RUE, he also will grimace to the stimuli. Unable to assess for sensory deficit due to mental status (Elliott Fragoso) Lab, Micro, Other Results Allergies Coded Allergies Type Severity Reaction Last Updated Verified Hydrocodone Allergy Unknown Nausea/Vomiting 10/04/16 Yes Sulfa Allergy Unknown 09/30/16 Yes Toradol Allergy Unknown 09/30/16 Yes Recent Impressions Head CT 10/08/16 0600 Signed Impressions: Service Date/Time: Saturday, October 08, 2016 05:31 - CONCLUSION: Increasing mass effect mainly associated with the right temporal process Michael Choe MD /// 05:59 17:59 05:59 17:59 05:59 17:59 Intake Total 1290 ml 3153 ml 1065 ml 2789 ml 1063 ml 1100 ml Output Total 800 ml 1725 ml 1325 ml 3300 ml 900 ml Balance 490 ml 1428 ml -260 ml -511 ml 163 ml 1100 ml Intake IV Total 929 ml 1992 ml 578 ml 1742 ml 575 ml 690 ml Tube Feeding 301 ml 766 ml 307 ml 927 ml 488 ml 410 ml Tube Irrigant 25 ml Other 60 ml 370 ml 180 ml 120 ml Output Urine Total 800 ml 1725 ml 1325 ml 3300 ml 900 ml # Bowel Movements 1 0 0 0 Laboratory Tests Test 10/07/16 10/08/16 10/08/16 10/08/16 05:20 04:40 12:15 17:30 White Blood Count 20.8 TH/MM3 21.6 TH/MM3 Red Blood Count 2.68 MIL/MM3 2.75 MIL/MM3 Hemoglobin 7.9 GM/DL 8.0 GM/DL Hematocrit 23.5 % 23.8 % Mean Corpuscular Volume 87.4 FL 86.7 FL Mean Corpuscular Hemoglobin 29.5 PG 29.1 PG Mean Corpuscular Hemoglobin 33.7 % 33.6 % Concent Red Cell Distribution Width 14.0 % 13.6 % Platelet Count 251 TH/MM3 292 TH/MM3 Mean Platelet Volume 8.2 FL 8.1 FL Sodium Level 140 MEQ/L 140 MEQ/L 140 MEQ/L 141 MEQ/L Potassium Level 4.1 MEQ/L 4.1 MEQ/L Chloride Level 103 MEQ/L 103 MEQ/L Carbon Dioxide Level 30.7 MEQ/L 29.7 MEQ/L Anion Gap 6 MEQ/L 7 MEQ/L Blood Urea Nitrogen 18 MG/DL 16 MG/DL Creatinine 0.63 MG/DL 0.57 MG/DL Estimat Glomerular Filtration 154 ML/MIN 173 ML/MIN Rate Random Glucose 119 MG/DL 133 MG/DL Calcium Level 7.8 MG/DL 8.0 MG/DL Test 10/08/16 10/09/16 23:10 06:19 Sodium Level 142 MEQ/L 142 MEQ/L White Blood Count 17.2 TH/MM3 Red Blood Count 2.32 MIL/MM3 Hemoglobin 7.0 GM/DL Hematocrit 20.1 % Mean Corpuscular Volume 86.7 FL Mean Corpuscular Hemoglobin 30.0 PG Mean Corpuscular Hemoglobin 34.6 % Concent Red Cell Distribution Width 13.7 % Platelet Count 331 TH/MM3 Mean Platelet Volume 8.1 FL Potassium Level 3.9 MEQ/L Chloride Level 106 MEQ/L Carbon Dioxide Level 25.5 MEQ/L Anion Gap 11 MEQ/L Blood Urea Nitrogen 17 MG/DL Creatinine 0.60 MG/DL Estimat Glomerular Filtration 163 ML/MIN Rate Random Glucose 139 MG/DL Calcium Level 7.7 MG/DL Vital Signs Date Time Temp Pulse Resp B/P Pulse Ox O2 Delivery O2 Flow Rate FiO2 10/09/16 10:00 83 10/09/16 08:21 30 10/09/16 08:21 100 40 10/09/16 08:00 87 10/09/16 08:00 40 10/09/16 08:00 99.9 81 20 122/45 100 10/09/16 06:00 108 10/09/16 04:00 45 10/09/16 04:00 98.7 80 17 112/48 99 10/09/16 04:00 95 10/09/16 03:56 98 40 10/09/16 02:10 100 40 10/09/16 02:00 90 10/09/16 00:00 45 10/09/16 00:00 92 10/09/16 00:00 99.9 89 16 127/54 100 10/08/16 22:00 85 10/08/16 21:00 100 40 10/08/16 20:00 99.2 96 16 121/62 100 10/08/16 20:00 45 10/08/16 20:00 96 10/08/16 18:00 83 10/08/16 16:00 45 10/08/16 16:00 97 10/08/16 16:00 99.8 97 16 129/50 100 10/08/16 15:16 99 40 10/08/16 14:00 110 10/08/16 12:00 45 10/08/16 12:00 103 10/08/16 12:00 99.4 102 13 122/53 98 10/08/16 11:52 100 40 10/08/16 10:00 79 10/08/16 08:41 40 10/08/16 08:41 100 40 10/08/16 08:00 87 10/08/16 08:00 99.4 81 14 143/57 100 10/08/16 08:00 40 10/08/16 06:00 84 10/08/16 05:20 100 100 10/08/16 04:00 40 10/08/16 04:00 99.0 94 16 140/55 100 10/08/16 04:00 94 10/08/16 03:51 99 40 10/08/16 02:00 87 10/08/16 01:08 100 40 10/08/16 00:00 98.3 90 15 144/59 100 10/08/16 00:00 90 10/08/16 00:00 40 10/07/16 22:14 100 60 10/07/16 22:00 70 10/07/16 20:17 100 40 10/07/16 20:00 100 10/07/16 20:00 100.3 100 21 153/66 100 10/07/16 20:00 40 10/07/16 18:00 85 10/07/16 17:28 100 40 10/07/16 16:00 99.7 81 12 112/55 100 10/07/16 16:00 40 10/07/16 16:00 87 10/07/16 14:00 85 10/07/16 12:30 40 10/07/16 12:00 50 10/07/16 12:00 100.1 80 16 110/55 100 10/07/16 12:00 95 10/07/16 10:44 100 50 10/07/16 10:32 19 10/07/16 10:00 82 10/07/16 08:00 106 10/07/16 08:00 100.1 106 18 120/64 100 10/07/16 08:00 30 10/07/16 06:00 92 10/07/16 04:00 30 10/07/16 04:00 99.5 96 18 138/53 100 10/07/16 04:00 96 10/07/16 03:30 100 30 10/07/16 02:00 105 10/07/16 01:19 100 30 10/07/16 00:00 30 10/07/16 00:00 103 10/07/16 00:00 99.4 103 18 140/54 100 10/06/16 22:00 88 10/06/16 21:16 100 30 10/06/16 20:00 30 10/06/16 20:00 101 10/06/16 20:00 100.2 101 15 159/63 100 10/06/16 18:10 40 10/06/16 18:00 73 10/06/16 16:00 30 10/06/16 16:00 83 10/06/16 16:00 100.8 83 11 155/54 100 10/06/16 15:44 30 10/06/16 15:34 100 30 10/06/16 14:00 96 10/06/16 12:09 100 30 10/06/16 12:00 100.0 82 14 138/52 100 10/06/16 12:00 93 10/06/16 12:00 30 (Elliott Fragoso) Medical Decision Making Impression and Plan Impression: Multiple acute septic CVAs Cerebral edema Small subarachnoid hemorrhage Midline shift, 3 mm Metabolic encephalopathy Septic shock Infective endocarditis CT brain demonstrates increasing mass effect mainly associated with the right temporal process Neuro exam essentially unchanged Plan: Stat CT brain for any further decline in neurological status Frequent neuro checks Continue 3% saline & monitor sodium level Critical care management by [place] Administrator Antibiotics per Infectious Disease (Elliott Fragoso) Attending Statement The exam, history, and the medical decision-making described in the above note were completed with the assistance of the mid-level provider. I reviewed and agree with the findings presented. I attest that I had a [id number] encounter with the patient on the same day, and personally performed and documented my assessment and findings in the medical record. (Izaiah Christiansen MD) Elliott Fragoso October 09, 2016 10:45 Izaiah Christiansen MD October 09, 2016 16:47
--- NOTE | 2016-10-09 11:27 | HHI.IDPN ---
Note Infectious Disease Note Patient is on the vent. On Levophed 7mcg. BP fluctuating. Sedated. Becomes agitated when sedation is weaned. Moving all extremities. Temp 99.9 Tolerating Oxacillin. Good urine output. WBC still elevated but lower today. Sputum has staph aureus. Blood cultures 09/30 Staph aureus in 5 of 6 bottles. Blood culture 10/02 positive. staph aureus. Blood culture 10/03 positive. staph aureus. Blood culture 10/04 positive. staph aureus. Blood culture 10/05 negative. Blood culture 10/06 negative. Patient was brought to the emergency department with altered mental status. Was evaluated for rash at preceding ED evaluation 2 days prior. Medicines in weeks before admission: Clindamycin, Doxycycline, acyclovir, Adderral, Tylenol, prednisone, omeprazole, Ibuprofen. PAST MEDICAL HISTORY 1. Substance abuse. The patient was in rehabilitation 1 year ago. 2. ADHD. 3. Degenerative disk disease. ALLERGIES Reportedly the patient is allergic to SULFA, PENICILLIN, TORADOL, CODEINE. ANTIBIOTICS: Gentamycin Oxacillin. OBJECTIVE: Vital Signs Date Time Temp Pulse Resp B/P Pulse Ox O2 Delivery O2 Flow Rate FiO2 10/08/16 10:00 79 10/08/16 08:41 40 10/08/16 08:41 100 40 10/08/16 08:00 87 10/08/16 08:00 99.4 81 14 143/57 100 10/08/16 08:00 40 10/08/16 06:00 84 10/08/16 05:20 100 100 10/08/16 04:00 40 10/08/16 04:00 99.0 94 16 140/55 100 10/08/16 04:00 94 10/08/16 03:51 99 40 10/08/16 02:00 87 10/08/16 01:08 100 40 10/08/16 00:00 98.3 90 15 144/59 100 10/08/16 00:00 90 10/08/16 00:00 40 10/07/16 22:14 100 60 10/07/16 22:00 70 10/07/16 20:17 100 40 10/07/16 20:00 100 10/07/16 20:00 100.3 100 21 153/66 100 10/07/16 20:00 40 10/07/16 18:00 85 10/07/16 17:28 100 40 10/07/16 16:00 99.7 81 12 112/55 100 10/07/16 16:00 40 10/07/16 16:00 87 10/07/16 14:00 85 10/07/16 12:30 40 10/07/16 12:00 50 10/07/16 12:00 100.1 80 16 110/55 100 10/07/16 12:00 95 10/08/16 10/08/16 10/09/16 15:00 23:00 07:00 Intake Total 1520 ml 1063 ml 1100 ml Output Total 1600 ml 900 ml Balance -80 ml 163 ml 1100 ml Intake IV Total 1028 ml 575 ml 690 ml Tube Feeding 492 ml 488 ml 410 ml Output Urine Total 1600 ml 900 ml # Bowel Movements 0 Laboratory Tests Test 10/08/16 10/09/16 04:40 06:19 White Blood Count 21.6 TH/MM3 17.2 TH/MM3 Red Blood Count 2.75 MIL/MM3 2.32 MIL/MM3 Hemoglobin 8.0 GM/DL 7.0 GM/DL Hematocrit 23.8 % 20.1 % Mean Corpuscular Volume 86.7 FL 86.7 FL Mean Corpuscular Hemoglobin 29.1 PG 30.0 PG Mean Corpuscular Hemoglobin 33.6 % 34.6 % Concent Red Cell Distribution Width 13.6 % 13.7 % Platelet Count 292 TH/MM3 331 TH/MM3 Mean Platelet Volume 8.1 FL 8.1 FL Laboratory Tests Test 10/08/16 10/08/16 10/08/16 10/08/16 04:40 12:15 17:30 23:10 Sodium Level 140 MEQ/L 140 MEQ/L 141 MEQ/L 142 MEQ/L Potassium Level 4.1 MEQ/L Chloride Level 103 MEQ/L Carbon Dioxide Level 29.7 MEQ/L Anion Gap 7 MEQ/L Blood Urea Nitrogen 16 MG/DL Creatinine 0.57 MG/DL Estimat Glomerular Filtration 173 ML/MIN Rate Random Glucose 133 MG/DL Calcium Level 8.0 MG/DL Test 10/09/16 06:19 Sodium Level 142 MEQ/L Potassium Level 3.9 MEQ/L Chloride Level 106 MEQ/L Carbon Dioxide Level 25.5 MEQ/L Anion Gap 11 MEQ/L Blood Urea Nitrogen 17 MG/DL Creatinine 0.60 MG/DL Estimat Glomerular Filtration 163 ML/MIN Rate Random Glucose 139 MG/DL Calcium Level 7.7 MG/DL Microbiology Date/Time Procedure Status Source Growth 10/06/16 17:05 Aerobic Blood Culture - Preliminary Resulted Blood Peripheral NO GROWTH IN 3 DAYS 10/06/16 17:05 Anaerobic Blood Culture - Preliminary Resulted Blood Peripheral NO GROWTH IN 3 DAYS 10/06/16 17:19 Aerobic Blood Culture - Preliminary Resulted Blood Peripheral NO GROWTH IN 3 DAYS 10/06/16 17:19 Anaerobic Blood Culture - Preliminary Resulted Blood Peripheral NO GROWTH IN 3 DAYS IMAGING: Head CT 10/08/16 0600 Signed Impressions: Service Date/Time: Saturday, October 08, 2016 05:31 - CONCLUSION: Increasing mass effect mainly associated with the right temporal process Michael Choe MD Head CT 10/03/16 0945 Signed Impressions: Service Date/Time: Monday, October 03, 2016 09:51 - CONCLUSION: 1. Multiple foci of low attenuation seen within the cerebral and cerebellar hemispheres consistent with evolving infarcts. Mykel Cantu MD Chest X-Ray 10/01/16 0000 Signed Impressions: Service Date/Time: Saturday, October 01, 2016 05:10 - CONCLUSION: Slight worsening bilateral perihilar infiltrates. KJerson Basilio MD Brain MRI 09/30/16 1659 Signed Impressions: Service Date/Time: Friday, September 30, 2016 17:42 - CONCLUSION: Numerous bilateral cerebral and cerebellar acute or subacute infarcts that are most likely embolic. Please see above. No mass or evidence of abscess. 4 mm of leftward midline shift. Small subarachnoid blood. Michael Freitas MD Renal Ultrasound 09/30/16 0000 Signed Impressions: Service Date/Time: Friday, September 30, 2016 18:45 - CONCLUSION: Ultrasound appearance of the kidneys within normal limits. Jerez catheter in the urinary bladder. Nonspecific splenomegaly incidentally noted. Michael Freitas MD Head Magnetic Resonance Angiography 09/30/16 0000 Signed Impressions: Service Date/Time: Friday, September 30, 2016 17:42 - CONCLUSION: No occlusion, aneurysm or other acute intracranial vascular abnormality demonstrated. Michael Freitas MD PHYSICAL EXAMINATION GENERAL: Patient is sedated. On vent. HEENT: No icterus. Oropharynx: dry mucosa. NECK: No adenopathy. No swelling. LUNGS: Bilateral rhonchi. HEART: 2/6 systolic murmur at the left sternal border. No rubs or gallops. ABDOMEN: Bowel sounds are present, soft, nontender. EXTREMITIES: No clubbing or cyanosis or edema. Embolic purpuric lesions at the plantar aspect of the 4th and 5th toe on the left and the great toe on the right and several pinpoint purpuric lesions at the base of the foot beyond the toe plantar aspect resolving. SKIN: Resolved rash at the feet dorsum almost resolved. There is peeled skin at the plantar aspect of both feet and hands. NEURO: Unable to assess. PSYCH: unable to assess. IMPRESSION 1. Septic shock due to Staph aureus. Persistent bacteremia. Negative blood culture indicating favorable response. 2. Acute endocarditis. [place] aortic valve. Staph aureus. 3. Acute respiratory failure. 4. Bilateral lung infiltrates, probably secondary to septic emboli./ PNA Staph aureus. 5. 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 6. History of IV drug abuse. Unknown current use status. 7. Antibiotic allergies. Tolerating Oxacillin/Gentamycin. 8. Recent drug rash. It is not clear what antibiotic the patient received prior to development of the rash and this is yet to be definitively confirmed. RECOMMENDATIONS: 1. Continue Oxacillin 2 grams Q 4 hours. 2. Continue Gentamycin in light of persistent bacteremia. Monitor renal function. 3. Monitor temps. 4. Monitor WBC. 5. Monitor clinical status. 6. Monitor for other infection with prolonged intubation. D/W RN. Nemesio Jackson MD October 09, 2016 11:27
[2016-10-09] MEDS ORDERED: SODIUM CHLORIDE 23.4% INJ 240 MEQ in SYRINGE/BAG 1 EA IV ONE (12:30)
--- NOTE | 2016-10-09 12:34 | HHI.CCPN ---
Subjective Remarks/Hospital Course Hospital Course: This is a 26yM who presents to the ED for altered mental status. On arrival, the patient was obtunded and emergently intubated. His roommate is with him and cannot provide much medical history. The remainder of the history is per EMS and ER documentation and my discussion with the ER physician. Per EMS and ED reports, patient was seen approximately 10 days prior to admission by an unknown physician in the clinic and given antibiotic for fever. After taking the antibiotic, the patient had a new red rash on his hands and healing on his feet. He he was seen in the emergency department 2 days prior to admission for low-grade fever and congestion, generalized weakness, lightheadedness. At that time she was given prescription for prednisone 40 mg daily for 5 days. The patient's landlord apparently found the patient today with altered mental status and called EMS. When EMS arrived, his GCS was 10. There is reports that the patient has a history of substance abuse and was recently in rehabilitation. I did talk to the roommate who confirms that the patient had recently gotten out of rehabilitation and was living with him. The remainder does say that he does not think the patient has been taking any illicit substances recently. In the emergency department, the patient was hypotensive, tachycardic. His head CT is significant for significant areas of infarction in the right frontal , temporal, and cerebellar regions as well as a small area of subarachnoid hemorrhage in the superior right parietal region. Patient has early 3 mm of midline shift as well as effacement on the right. Patient's laboratory data is significant for white blood cell count of 19,000, hemoglobin of 9.9, lactate of 3.7, creatinine 1.69, CK 372, troponin of 11.9. His urine drug screen is positive for opiates and amphetamines. I performed a bedside critical care ultrasound which demonstrated hyperdynamic left ventricular function and what appears to be aortic valve vegetations and I measured to be proximally 0.9 x 8.8 cm. This is associated with what appears to be severe aortic regurgitation. There is no pericardial effusion. Right ventricular function is preserved. A formal echo has been ordered to confirm these findings. Critical care medicine has been consulted to evaluate and manage his shock, altered mental status, multiple areas of infarction, and subarachnoid hemorrhage. Subjective: 10/01: seen and examined around 06:30am. patient on norepinephrine at 6 mcg/min , persistently in shock. patient localizes to pain x 4 extremities. repeat interval head CT with 4mm midline shift. echo with significant aortic valve vegetations and moderate aortic insufficiency. 10/02: now following commands intermittently on the RUE, still localizing in LUE , BLE. off vasopressors this morning. cultures growing staph, sensitivities to follow. 10/03: tachycardic overnight. off vasopressors this morning. not following commands this morning. still persistently febrile and wbc uptrended to 20k. 10/04: still encephalopathic. EEG negative for seizure activity. received 1 trial dose of oxacillin yesterday without evidence of allergic reaction. will let ID guide this therapy, but safe from a critical care standpoint to pursue oxacillin therapy. cultures persistently positive and wbc uptrending. still febrile. 10/05: persistent encephalopathy. but now briskly purposeful x 4. now on oxacillin. discussed with ID, and will plan to start gent induction. wbc downtrending today. still febrile. will continue surveilance cultures q48h until 2 sets negative. 10/06: neuro exam unchanged. still purposeful. blood cultures negative x 24h. will re-draw today. still persists on 1mcg/min levophed, though this has also slightly improved from yesterday. 10/07: neuro exam stable. very agitated, not following commands. blood cultures negative x 48h. off levophed. 10/08: neuro exam stable. CT with increased midline shift and persistent edema, particularly right side. back on levophed. febrile. wbc stable. 10/09: sodium not at goal, likely due to normal renal function. follows commands in the RUE, which is new. spontaneously moves BLE, LUE. wbc downtrending. hgb 7 this AM, but no other signs of end-organ damage from low o2 delivery. Objective Vital Signs Date Time Temp Pulse Resp B/P Pulse Ox O2 Delivery O2 Flow Rate FiO2 10/09/16 11:19 99 40 10/09/16 10:00 83 10/09/16 08:00 99.9 20 122/45 Intake and Output 10/08/16 10/08/16 10/08/16 07:59 15:59 23:59 Intake Total 1269 ml 1520 ml 1063 ml Output Total 1700 ml 1600 ml 900 ml Balance -431 ml -80 ml 163 ml Result Diagram: 10/09/16 0619 10/09/1619 Imaging Last Impressions Head CT 09/30/16 145 Signed Impressions: Service Date/Time: Friday, September 30, 2016 16:31 - CONCLUSION: Noncontrast CT findings of concern for multiple intra-axial masses. There is small acute subarachnoid blood present and about 3 mm of leftward midline shift. MRI of the brain with and without contrast recommended. Michael Freitas MD Chest X-Ray 09/30/16 260 Signed Impressions: Service Date/Time: Friday, September 30, 2016 15:23 - CONCLUSION: No acute cardiopulmonary disease demonstrated. Appropriate endotracheal tube tip position. Nasogastric tube courses into the stomach, tip not included on the study. Michael Freitas MD Objective Remarks GENERAL: Young male, lying in bed, intubated, sedated, critically ill HEENT: Pupils 3 mm, equal, sluggishly reactive. Mucous membranes moist. NECK: No JVD. Trachea midline. Orotracheally intubated CHEST: Equal chest rise. Clear to auscultation. CARDIOVASCULAR: Tachycardic rate, regular rhythm. II/ systolic and diastolic murmur. ABDOMEN: Soft, nontender, nondistended. No guarding. MUSCULOSKELETAL: rash on feet has improved. No peripheral edema. Distal pulses 2+. NEUROLOGICAL: RASS -2. CAM+. follows commands in RUE. withdraws in LUE, BLE. 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 Still critically ill and with ongoing encephalopathy. evidence of worsening cerebral edema, particularly right temporal area. despite 3% NaCl, sodium not at goal. will add single dose of 23% nacl and intermittent 3% boluses on top of increased 3% drip. will attempt to avoid mannitol given gentamicin induction therapy and to support renal perfusion. neuro exam stable. continue to follow cultures. We will continue with supportive care. Remains very critically ill at this time. If we do not have significant improvements, will need to consider trach. Plan by systems: Neurologic: Multiple acute septic CVAs Cerebral edema Small subarachnoid hemorrhage Midline shift, 4 mm Metabolic encephalopathy Agitated Delirium- slightly improved. Neurosurgery consulted, Dr. Michelle q1h neuro checks --prop/fent for goal RASS -2. --avoid long-acting sedating meds --EEG 10/01- negative for seizures -- seroquel 100mg q8hr. -- melatonin to assist with sleep/wake cycles -- delirium and agitation persists, though slightly improved today. -- interval head CT in AM to re-assess edema. -- 250cc 3% bolus q6h to help maintain sodium goal 145 - 155 while edema persists -- 60mL 23% nacl x 1 -- increase 3% drip to 40 cc/hr. Respiratory: Acute hypoxic and hypercarbic respiratory failure Vent bundle Head of bed 30 Avoid hypercarbia and hypoxia daily SBTs. Wean FiO2 for goal SPO2 greater than 92% Cardiovascular: Aortic valve endocarditis Moderate aortic insufficiency Cardiogenic shock- resolved. Septic shock- resolving. Arterial line, central line for invasive central pressure monitoring --trend CVP. Abx as described below 2d echo 10/01: aortic valve vegetations, moderate AI. remains on levophed 8mcg/min today. continue to wean as tolerated for map > 65. Renal: Acute kidney injury- resolved. Jerez for accurate I's and O's -- Strict I/Os FEN/GI: Hypermagnesemia Lactic acidosis- resolved. Severe metabolic acidosis- resolved. Acute protein calorie malnutritionmild Elevated LFTs jevity 1.5, nutrition consult. OG tube to suction Daily BMP Heme/ID: Anemia, likely secondary to hemolysis from valvulopathy Infective endocarditis Septic shock- resolving. 10/01 blood cultures: MSSA --10/01 sputum culture: MSSA --10/02 blood cultures: MSSA --10/03 blood cultures: MSSA --10/04 bl cx: MSSA --10/05 bl cx: NGTD --10/06 bl cx: NGTD vancomycin, flagyl d/c 10/02. --oxacillin started 10/02 --gentamicin induction therapy per ID. started 10/05 Infectious disease following: Dontfraid Endocrine: Hyperglycemia of critical illness -- SSI, every 6 hours, medium scale TSH 0.16, free T4 1.07, T3 < 0.5: likely sick euthyroid. Prophylaxis: GI Prophylaxis Protonix IV DVT Prophylaxis -- SCDs Holding pharmacologic DVT prophylaxis in the setting of cerebral hemorrhage Lines: 09/30 radial arterial line --09/30 left SC TLC --Jerez Dispo: Remain in the ICU. He remains critically ill. This patient remains critically ill with one or more organ systems which are or may become a threat to life. I have spent in excess of 42 minutes discontinuously in the care and management of this patient. This time is exclusive of procedures, and includes, but is not limited to, evaluation of the patient, review of the medical record, discussions with family, consultants, nursing staff, or respiratory therapy, and documentation in the medical record. Yahir Dominguez MD October 09, 2016 12:34
[2016-10-09] MEDS: 3% SALINE INJ 250 ML IV SCH (17:39)
[2016-10-09] MEDS: MELATONIN 5 MG TAB PO SCH (20:09)
[2016-10-10] VITALS (21 sets, daily range): BP systolic 114–142; BP diastolic 46–78; PULSE 85–130; RESP 15–18; TEMP 97.3–101.4; O2SAT 95–100
[2016-10-10] MEDS: PROPOFOL 1000 MG/100 ML INJ 100 ML IV SCH ×3 (01:50→12:44)
[2016-10-10] MEDS: OXACILLIN INJ 2 GM in SODIUM CHLORIDE 0.9% INJ 100 ML IV SCH ×6 (01:50→21:45)
[2016-10-10] MEDS: fentaNYL DRIP 250 ML IV SCH ×2 (01:51→15:04)
[2016-10-10] MEDS: CHLORHEXIDINE GLUCONATE 2 % 1 PACK (2 CLOTHS) TOP SCH (04:00)
[2016-10-10] MEDS: GENTAMICIN INJ 70 MG in SODIUM CHLORIDE 0.9% INJ 100 ML IV SCH ×3 (04:16→19:53)
[2016-10-10] MEDS: ACETAMINOPHEN 325 MG TAB PO PRN ×2 (04:25→19:54)
[2016-10-10] MEDS: QUEtiapine FUMARATE 100 MG TAB PO SCH ×3 (04:56→21:45)
[2016-10-10] MEDS: INSULIN NovoLIN REGULAR SUPPLEMENTAL SCALE SQ SCH ×3 (06:00→18:00)
[2016-10-10] MEDS: 3% SALINE INJ 250 ML IV SCH ×4 (06:00→18:00)
[2016-10-10 07:08] LABS: MEAN CELL VOLUME 88.4 FL (80.0-100.0); MEAN CORPUSCULAR HEMOGLOBIN 28.7 PG (27.0-34.0); MEAN CORPUSCULAR HGB CONC 32.4 % (32.0-36.0); PLATELET COUNT 347 TH/MM3 (150-450); RED BLOOD COUNT 2.26 MIL/MM3 (4.50-5.90); RED CELL DISTRIBUTION WIDTH 14.1 % (11.6-17.2); WHITE BLOOD COUNT 18.7 TH/MM3 (4.0-11.0)
[2016-10-10 07:20] LABS: BICARBONATE 29.7 MEQ/L (21.0-32.0); REVIEW FLAG FINAL
[2016-10-10] MEDS: RESP: ALBUTEROL 2.5 MG/IPRATROPIUM 0.5 MG NEB (SCH) INH ×3 (08:09→20:21)
[2016-10-10] MEDS: CHLORHEXIDINE 0.12% (ORAL KIT) 15 ML CUP MT SCH ×2 (08:16→21:45)
[2016-10-10] MEDS: DOCUSATE SODIUM 100 MG/10 ML UDC G-TUBE SCH ×2 (08:45→21:45)
[2016-10-10] MEDS: SODIUM CHLORIDE 0.9% FLUSH 10 ML FLUSH IV FLUSH SCH ×2 (08:46→21:00)
[2016-10-10] MEDS: PANTOPRAZOLE SODIUM 40 MG VIAL IV SCH (08:46)
[2016-10-10] MEDS: ARTIFICIAL TEARS OPTH SOLN 15 ML BTL EACH EYE SCH ×3 (08:47→18:08)
[2016-10-10] MEDS: 3% SALINE INJ 500 ML IV SCH (09:39)
--- NOTE | 2016-10-10 11:49 | HHI.CCPN ---
Subjective Remarks/Hospital Course Hospital Course: This is a 26yM who presents to the ED for altered mental status. On arrival, the patient was obtunded and emergently intubated. His roommate is with him and cannot provide much medical history. The remainder of the history is per EMS and ER documentation and my discussion with the ER physician. Per EMS and ED reports, patient was seen approximately 10 days prior to admission by an unknown physician in the clinic and given antibiotic for fever. After taking the antibiotic, the patient had a new red rash on his hands and healing on his feet. He he was seen in the emergency department 2 days prior to admission for low-grade fever and congestion, generalized weakness, lightheadedness. At that time she was given prescription for prednisone 40 mg daily for 5 days. The patient's landlord apparently found the patient today with altered mental status and called EMS. When EMS arrived, his GCS was 10. There is reports that the patient has a history of substance abuse and was recently in rehabilitation. I did talk to the roommate who confirms that the patient had recently gotten out of rehabilitation and was living with him. The remainder does say that he does not think the patient has been taking any illicit substances recently. In the emergency department, the patient was hypotensive, tachycardic. His head CT is significant for significant areas of infarction in the right frontal , temporal, and cerebellar regions as well as a small area of subarachnoid hemorrhage in the superior right parietal region. Patient has early 3 mm of midline shift as well as effacement on the right. Patient's laboratory data is significant for white blood cell count of 19,000, hemoglobin of 9.9, lactate of 3.7, creatinine 1.69, CK 372, troponin of 11.9. His urine drug screen is positive for opiates and amphetamines. I performed a bedside critical care ultrasound which demonstrated hyperdynamic left ventricular function and what appears to be aortic valve vegetations and I measured to be proximally 0.9 x 8.8 cm. This is associated with what appears to be severe aortic regurgitation. There is no pericardial effusion. Right ventricular function is preserved. A formal echo has been ordered to confirm these findings. Critical care medicine has been consulted to evaluate and manage his shock, altered mental status, multiple areas of infarction, and subarachnoid hemorrhage. Subjective: 10/01: seen and examined around 06:30am. patient on norepinephrine at 6 mcg/min , persistently in shock. patient localizes to pain x 4 extremities. repeat interval head CT with 4mm midline shift. echo with significant aortic valve vegetations and moderate aortic insufficiency. 10/02: now following commands intermittently on the RUE, still localizing in LUE , BLE. off vasopressors this morning. cultures growing staph, sensitivities to follow. 10/03: tachycardic overnight. off vasopressors this morning. not following commands this morning. still persistently febrile and wbc uptrended to 20k. 10/04: still encephalopathic. EEG negative for seizure activity. received 1 trial dose of oxacillin yesterday without evidence of allergic reaction. will let ID guide this therapy, but safe from a critical care standpoint to pursue oxacillin therapy. cultures persistently positive and wbc uptrending. still febrile. 10/05: persistent encephalopathy. but now briskly purposeful x 4. now on oxacillin. discussed with ID, and will plan to start gent induction. wbc downtrending today. still febrile. will continue surveilance cultures q48h until 2 sets negative. 10/06: neuro exam unchanged. still purposeful. blood cultures negative x 24h. will re-draw today. still persists on 1mcg/min levophed, though this has also slightly improved from yesterday. 10/07: neuro exam stable. very agitated, not following commands. blood cultures negative x 48h. off levophed. 10/08: neuro exam stable. CT with increased midline shift and persistent edema, particularly right side. back on levophed. febrile. wbc stable. 10/09: sodium not at goal, likely due to normal renal function. follows commands in the RUE, which is new. spontaneously moves BLE, LUE. wbc downtrending. hgb 7 this AM, but no other signs of end-organ damage from low o2 delivery. 10/10 failed to SBT today due to rapid shallow breathing also tachycardia. Patient found to have a significant anemia below 7 will transfuse and reattempt SBT later today Objective Vital Signs Date Time Temp Pulse Resp B/P Pulse Ox O2 Delivery O2 Flow Rate FiO2 10/10/16 11:23 99 40 10/10/16 06:00 103 10/10/16 04:00 98.8 16 130/53 Intake and Output 510/09/16 10/10/16 08:00 16:00 00:00 Intake Total 1100 ml 1292 ml 1362 ml Output Total 1400 ml 1000 ml Balance 1100 ml -108 ml 362 ml Result Diagram: 10/10/16 0600 10/10/16 0600 Imaging Last Impressions Head CT 09/30/16 1453 Signed Impressions: Service Date/Time: Friday, September 30, 2016 16:31 - CONCLUSION: Noncontrast CT findings of concern for multiple intra-axial masses. There is small acute subarachnoid blood present and about 3 mm of leftward midline shift. MRI of the brain with and without contrast recommended. Michael Freitas MD Chest X-Ray 09/30/16 1453 Signed Impressions: Service Date/Time: Friday, September 30, 2016 15:23 - CONCLUSION: No acute cardiopulmonary disease demonstrated. Appropriate endotracheal tube tip position. Nasogastric tube courses into the stomach, tip not included on the study. Michael Freitas MD Objective Remarks GENERAL: Young male, lying in bed, intubated, sedated, critically ill HEENT: Pupils 3 mm, equal, sluggishly reactive. Mucous membranes moist. NECK: No JVD. Trachea midline. Orotracheally intubated CHEST: Equal chest rise. Clear to auscultation. CARDIOVASCULAR: Tachycardic rate, regular rhythm. II/ systolic and diastolic murmur. ABDOMEN: Soft, nontender, nondistended. No guarding. MUSCULOSKELETAL: rash on feet has improved. No peripheral edema. Distal pulses 2+. NEUROLOGICAL: RASS -2. CAM+. follows commands in RUE. withdraws in LUE, BLE. 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 Still critically ill and with ongoing encephalopathy. evidence of worsening cerebral edema, particularly right temporal area. despite 3% NaCl, sodium not at goal. will add single dose of 23% nacl and intermittent 3% boluses on top of increased 3% drip. will attempt to avoid mannitol given gentamicin induction therapy and to support renal perfusion. neuro exam stable. continue to follow cultures. We will continue with supportive care. Remains very critically ill at this time. If we do not have significant improvements, will need to consider trach. Plan by systems: Neurologic: Multiple acute septic CVAs Cerebral edema Small subarachnoid hemorrhage Midline shift, 4 mm Metabolic encephalopathy Agitated Delirium- slightly improved. Neurosurgery consulted, Dr. Michelle q1h neuro checks --prop/fent for goal RASS -2. --avoid long-acting sedating meds --EEG 10/01- negative for seizures -- seroquel 100mg q8hr. -- melatonin to assist with sleep/wake cycles -- delirium and agitation persists, though slightly improved today. -- interval head CT in AM to re-assess edema. -- 250cc 3% bolus q6h to help maintain sodium goal 145 - 155 while edema persists -- 60mL 23% nacl x 1 -- increased 3% drip to 40 cc/hr - sodium 147 today, will continue - Precedex trial with a goal to wean off propofol and attempt SBT Respiratory: Acute hypoxic and hypercarbic respiratory failure Vent bundle Head of bed 30 Avoid hypercarbia and hypoxia daily SBTs. Wean FiO2 for goal SPO2 greater than 92% Cardiovascular: Aortic valve endocarditis Moderate aortic insufficiency Cardiogenic shock- resolved. Septic shock- resolving. Arterial line, central line for invasive central pressure monitoring --trend CVP. Abx as described below 2d echo 10/01: aortic valve vegetations, moderate AI. remains on levophed 8mcg/min today. continue to wean as tolerated for map > 65. Renal: Acute kidney injury- resolved. Jerez for accurate I's and O's -- Strict I/Os FEN/GI: Hypermagnesemia Lactic acidosis- resolved. Severe metabolic acidosis- resolved. Acute protein calorie malnutritionmild Elevated LFTs jevity 1.5, nutrition consult. OG tube to suction Daily BMP Heme/ID: Anemia, likely secondary to hemolysis from valvulopathy Infective endocarditis Septic shock- resolving. 10/01 blood cultures: MSSA --10/01 sputum culture: MSSA --10/02 blood cultures: MSSA --10/03 blood cultures: MSSA --10/04 bl cx: MSSA --10/05 bl cx: NGTD --10/06 bl cx: NGTD vancomycin, flagyl d/c 10/02. --oxacillin started 10/02 --gentamicin induction therapy per ID. started 10/05 Infectious disease following: Dontfraid Endocrine: Hyperglycemia of critical illness -- SSI, every 6 hours, medium scale TSH 0.16, free T4 1.07, T3 < 0.5: likely sick euthyroid. Prophylaxis: GI Prophylaxis Protonix IV DVT Prophylaxis -- SCDs Holding pharmacologic DVT prophylaxis in the setting of cerebral hemorrhage Lines: 09/30 radial arterial line --09/30 left SC TLC --Jerez Dispo: Remain in the ICU. He remains critically ill. This patient remains critically ill with one or more organ systems which are or may become a threat to life. I have spent in excess of 35 minutes discontinuously in the care and management of this patient. This time is exclusive of procedures, and includes, but is not limited to, evaluation of the patient, review of the medical record, discussions with family, consultants, nursing staff, or respiratory therapy, and documentation in the medical record. Gurinder Sierra MD October 10, 2016 11:49
--- NOTE | 2016-10-10 12:46 | HHI.IDPN ---
Note Infectious Disease Note Patient is on the vent. Off Levophed , blood pressure elevated. Sedated. Moving all extremities. Did not tolerate CPAP. Good urine output. WBC still elevated. Sputum has staph aureus. Blood cultures 09/30 Staph aureus in 5 of 6 bottles. Blood culture 10/02 positive. staph aureus. Blood culture 10/03 positive. staph aureus. Blood culture 10/04 positive. staph aureus. Blood culture 10/05 negative. Blood culture 10/06 negative. Patient was brought to the emergency department with altered mental status. Was evaluated for rash at preceding ED evaluation 2 days prior. PAST MEDICAL HISTORY 1. Substance abuse. The patient was in rehabilitation 1 year ago. 2. ADHD. 3. Degenerative disk disease. ALLERGIES Reportedly the patient is allergic to SULFA, PENICILLIN, TORADOL, CODEINE. ANTIBIOTICS: Gentamycin day 6. Oxacillin. OBJECTIVE: Vital Signs Date Time Temp Pulse Resp B/P Pulse Ox O2 Delivery O2 Flow Rate FiO2 10/10/16 11:23 99 40 10/10/16 09:30 45 10/10/16 08:15 40 10/10/16 08:15 40 10/10/16 08:11 99 40 10/10/16 08:00 45 10/10/16 06:00 103 10/10/16 04:00 114 10/10/16 04:00 98.8 114 16 130/53 100 10/10/16 04:00 45 10/10/16 03:40 100 40 10/10/16 02:00 93 10/10/16 00:40 100 40 10/10/16 00:00 85 10/10/16 00:00 97.3 102 17 114/55 100 10/10/16 00:00 45 10/09/16 22:00 90 10/09/16 21:24 99 40 10/09/16 20:00 45 10/09/16 20:00 100.7 87 15 128/58 100 10/09/16 20:00 87 10/09/16 18:00 110 10/09/16 16:00 98.7 94 19 127/63 100 10/09/16 16:00 40 10/09/16 16:00 91 10/09/16 15:19 100 40 10/09/16 14:00 110 10/09/16 10/09/16 10/10/16 15:00 23:00 07:00 Intake Total 1292 ml 1362 ml 1351 ml Output Total 1400 ml 1000 ml 1200 ml Balance -108 ml 362 ml 151 ml Intake IV Total 676 ml 1072 ml 836 ml Tube Feeding 516 ml 230 ml 455 ml Tube Irrigant 60 ml 60 ml Other 100 ml Output Urine Total 1400 ml 1000 ml 1200 ml # Bowel Movements 0 0 Laboratory Tests Test 10/09/16 10/10/16 06:19 06:00 White Blood Count 17.2 TH/MM3 18.7 TH/MM3 Red Blood Count 2.32 MIL/MM3 2.26 MIL/MM3 Hemoglobin 7.0 GM/DL 6.5 GM/DL Hematocrit 20.1 % 20.0 % Mean Corpuscular Volume 86.7 FL 88.4 FL Mean Corpuscular Hemoglobin 30.0 PG 28.7 PG Mean Corpuscular Hemoglobin 34.6 % 32.4 % Concent Red Cell Distribution Width 13.7 % 14.1 % Platelet Count 331 TH/MM3 347 TH/MM3 Mean Platelet Volume 8.1 FL 8.0 FL Laboratory Tests Test 10/08/16 10/08/16 10/09/16 10/09/16 17:30 23:10 06:19 11:45 Sodium Level 141 MEQ/L 142 MEQ/L 142 MEQ/L 141 MEQ/L Potassium Level 3.9 MEQ/L Chloride Level 106 MEQ/L Carbon Dioxide Level 25.5 MEQ/L Anion Gap 11 MEQ/L Blood Urea Nitrogen 17 MG/DL Creatinine 0.60 MG/DL Estimat Glomerular Filtration 163 ML/MIN Rate Random Glucose 139 MG/DL Calcium Level 7.7 MG/DL Test 10/09/16 10/09/16 10/10/16 18:15 23:12 06:00 Sodium Level 146 MEQ/L 147 MEQ/L 147 MEQ/L Potassium Level 4.0 MEQ/L Chloride Level 112 MEQ/L Carbon Dioxide Level 29.7 MEQ/L Anion Gap 5 MEQ/L Blood Urea Nitrogen 13 MG/DL Creatinine 0.60 MG/DL Estimat Glomerular Filtration 163 ML/MIN Rate Random Glucose 140 MG/DL Calcium Level 8.2 MG/DL Microbiology Date/Time Procedure Status Source Growth 10/06/16 17:05 Aerobic Blood Culture - Preliminary Resulted Blood Peripheral NO GROWTH IN 3 DAYS 10/06/16 17:05 Anaerobic Blood Culture - Preliminary Resulted Blood Peripheral NO GROWTH IN 3 DAYS 10/06/16 17:19 Aerobic Blood Culture - Preliminary Resulted Blood Peripheral NO GROWTH IN 3 DAYS 10/06/16 17:19 Anaerobic Blood Culture - Preliminary Resulted Blood Peripheral NO GROWTH IN 3 DAYS IMAGING: Head CT 10/08/16 0600 Signed Impressions: Service Date/Time: Saturday, October 08, 2016 05:31 - CONCLUSION: Increasing mass effect mainly associated with the right temporal process Michael Cohe MD Head CT 10/03/16 0945 Signed Impressions: Service Date/Time: Monday, October 03, 2016 09:51 - CONCLUSION: 1. Multiple foci of low attenuation seen within the cerebral and cerebellar hemispheres consistent with evolving infarcts. Mykel Cantu MD Chest X-Ray 10/01/16 0000 Signed Impressions: Service Date/Time: Saturday, October 01, 2016 05:10 - CONCLUSION: Slight worsening bilateral perihilar infiltrates. 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 Please see above. No mass or evidence of abscess. 4 mm of leftward midline shift. Small subarachnoid blood. Michael Freitas MD Renal Ultrasound 09/30/16 0000 Signed Impressions: Service Date/Time: Friday, September 30, 2016 18:45 - CONCLUSION: Ultrasound appearance of the kidneys within normal limits. Jerez catheter in the urinary bladder. Nonspecific splenomegaly incidentally noted. Michael Freitas MD Head Magnetic Resonance Angiography 09/30/16 0000 Signed Impressions: Service Date/Time: Friday, September 30, 2016 17:42 - CONCLUSION: No occlusion, aneurysm or other acute intracranial vascular abnormality demonstrated. Michael Freitas MD PHYSICAL EXAMINATION GENERAL: Patient is sedated. On vent. HEENT: No icterus. Oropharynx: dry mucosa. NECK: No adenopathy. No swelling. LUNGS: Bilateral rhonchi. HEART: 2/6 systolic murmur at the left sternal border. No rubs or gallops. ABDOMEN: Bowel sounds are present, soft, nontender. EXTREMITIES: No clubbing or cyanosis or edema. Embolic purpuric lesions at the plantar aspect of the 4th and 5th toe on the left and the great toe on the right and several pinpoint purpuric lesions at the base of the foot beyond the toe plantar aspect resolving. SKIN: Resolved rash at the feet dorsum almost resolved. There is peeled skin at the plantar aspect of both feet and hands. NEURO: Unable to assess. PSYCH: unable to assess. IMPRESSION 1. Septic shock due to Staph aureus. Persistent bacteremia. Blood culture now negative. 2. Acute endocarditis. [place] aortic valve. Staph aureus. 3. Acute respiratory failure. 4. Bilateral lung infiltrates, probably secondary to septic emboli./ PNA Staph aureus. 5. 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 6. History of IV drug abuse. Unknown current use status. 7. Antibiotic allergies. Tolerating Oxacillin/Gentamycin. 8. Recent drug rash. Medicines in weeks before admission: Clindamycin, Doxycycline, acyclovir, Adderral, Tylenol, prednisone, omeprazole, Ibuprofen. RECOMMENDATIONS: 1. Continue Oxacillin 2 grams Q 4 hours. 2. Continue Gentamycin x 2 weeks. Monitor renal function. 3. Monitor temps. 4. Monitor WBC. 5. Monitor clinical status. 6. Monitor for other infection with prolonged intubation. I will be off 10/11 - 10/14. Other ID MD's covering in my absence. Nemesio Jackson MD October 10, 2016 12:46
--- NOTE | 2016-10-10 15:06 | HHI.HCPN ---
Palliative care stopped by patient's sister in hallway requesting visit. Met with sister at patient's bedside. Nurse in answering questions and providing care. Sister expressed some concerns and frustrations with patient's condition. Palliative EDGE STAINER MACHINE to follow-up. Expressed concerns with nurse interactions today. Charge nurse notified per family request. Offered emotional support with active listening. Offered family meeting to further answer questions, provide update, etc. Sister states she will contact palliative if family desires meeting. Mr. Rios appears to be resting comfortably during my visit. Palliative care will continue to follow throughout hospitalization. Madison Cervantes MARKETING OPERATIONS COORDINATOR, TENNIS BALL COVER CEMENTER October 10, 2016 15:06
[2016-10-10] MEDS ORDERED: DEXMEDETOMIDINE 200 MCG in NS 50 ML IV SCH (15:15)
--- NOTE | 2016-10-10 15:33 | HHI.HCPN ---
Reason for visit a. To assist with evaluation and management of symptoms including:dyspnea, encephalopathy b. To assist medical decision maker(s) with: better understanding of current medical conditions; weighing benefits/burdens of medical treatment options; making medical treatment decisions. Subjective/Interval History Patient seen today to follow-up on comfort, provided medical update to decision makers. [facility] (fentanyl, versed) . Episodes of agitation, strong coughing against vent. Sedative being changed to precedex to keep pt calmer. Nsg reports following simple commands RUE, slight gross movement LUE. Low grade fever, tmax 100.7. BC from 10/05, 10/06 NGTD. WBC 18.7. ID following. Remains on oxacillin, gentamicin. Patient seen in room sister bedside. Nursing also at bedside to add Precedex. To my exam patient is sedated, given reports of recent episode of agitation I did not aggressively attempt to stimulate him for neurologic exam. He appears calm and comfortable time of my exam. Does appear to localize to touch to feet , right upper extremity. No response noted at left upper extremity. Sister informs that mother has left for the afternoon. Provided update on current conditions, recent diagnostics, current assessments, treatments in place. Again review long-term prognosis patient will likely require tracheostomy and PEG, which would likely be considered or recommended by the end of this week if family wishes to continue ongoing aggressive interventions. She asked what the alternative was to pursuing those measures advised that the alternative would be transition to comfort focus. they wish to continue to support the patient and are hopeful for recovery. She will continue to speak with and update patient mother as mother involves her in decision-making. Following exam call to patient mother Felicita, provided updates and review of current conditions, assessments, trajectory going forward. Mother informs that she is at home she was upset earlier during nursing interactions she requests that I notify charge nurse that they did not feel nurse was kind or attentive today. . Advance Directives Living Will: Never completed Health Care Surrogate: Never completed Durable Power of Youth Ministry Director: Completed, but not made available (mother reports has POA, not clear if this includes medical decision making, awaiting copies of documents) Objective Vital Signs Date Time Temp Pulse Resp B/P Pulse Ox O2 Delivery O2 Flow Rate FiO2 10/10/16 14:39 97 60 10/10/16 12:00 45 10/10/16 11:23 99 40 10/10/16 09:30 45 10/10/16 08:15 40 10/10/16 08:15 40 10/10/16 08:11 99 40 10/10/16 08:00 45 10/10/16 06:00 103 10/10/16 04:00 114 10/10/16 04:00 98.8 114 16 130/53 100 10/10/16 04:00 45 10/10/16 03:40 100 40 10/10/16 02:00 93 10/10/16 00:40 100 40 10/10/16 00:00 85 10/10/16 00:00 97.3 102 17 114/55 100 10/10/16 00:00 45 10/09/16 22:00 90 10/09/16 21:24 99 40 10/09/16 20:00 45 10/09/16 20:00 100.7 87 15 128/58 100 10/09/16 20:00 87 10/09/16 18:00 110 10/09/16 16:00 98.7 94 19 127/63 100 10/09/16 16:00 40 10/09/16 16:00 91 Intake & Output 10/10/16 10/10/16 06:59 18:59 Intake Total 2713 ml 1460 ml Output Total 2200 ml 1800 ml Balance 513 ml -340 ml Intake IV Total 1908 ml 887 ml Tube Feeding 685 ml 513 ml Tube Irrigant 120 ml 60 ml Output Urine Total 2200 ml 1800 ml # Bowel Movements 0 0 Physical Exam CONSTITUTIONAL/GENERAL: This is an adequately nourished patient, comfortable on mechanical vent TUBES/LINES/DRAINS: Lt SC central line. ETT, OGT, carrera catheter SKIN: No jaundice, or lesions. + slight resolving peeling bottom feet/Embolic purpuric lesions on LT great toe. peeling bilateral palms of hands. Skin warm CARDIOVASCULAR: Regular rate and rhythm without murmur. Peripheral pulses symmetric. no peripheral edema RESPIRATORY/CHEST: Symmetric, unlabored respirations on mech vent. Course air movement throughout lungs. breath sounds equal bilat GASTROINTESTINAL: Abdomen soft, nondistended. No palpable masses. No guarding. Bowel sounds present. TF infusing via OGT. GENITOURINARY: Without palpable bladder distension. Carrera catheter in place clear dark yellow urine. NEUROLOGICAL: sedated on mech vent.(Fentanyl, Diprivan, being started on Precedex by nursing) slight eye opening , given reports of recent episode of agitation I did not aggressively attempt to stimulate him for neurologic exam. He appears calm and comfortable time of my exam. Does appear to localize to touch to feet, right upper extremity. No response noted at left upper extremity. PSYCHIATRIC: -- limited assess due to condition/sedation, calm at time of my exam. . Diagnostic Tests Laboratory Laboratory Tests Test 10/08/16 10/08/16 10/08/16 10/08/16 04:40 12:15 17:30 23:10 White Blood Count 21.6 TH/MM3 (4.0-11.0) Red Blood Count 2.75 MIL/MM3 (4.50-5.90) Hemoglobin 8.0 GM/DL (13.0-17.0) Hematocrit 23.8 % (39.0-51.0) Mean Corpuscular Volume 86.7 FL (80.0-100.0) Mean Corpuscular Hemoglobin 29.1 PG (27.0-34.0) Mean Corpuscular Hemoglobin 33.6 % Concent (32.0-36.0) Red Cell Distribution Width 13.6 % (11.6-17.2) Platelet Count 292 TH/MM3 (150-450) Mean Platelet Volume 8.1 FL (7.0-11.0) Sodium Level 140 MEQ/L 140 MEQ/L 141 MEQ/L 142 MEQ/L (136-145) (136-145) (136-145) (136-145) Potassium Level 4.1 MEQ/L (3.5-5.1) Chloride Level 103 MEQ/L (98-107) Carbon Dioxide Level 29.7 MEQ/L (21.0-32.0) Anion Gap 7 MEQ/L (5-15) Blood Urea Nitrogen 16 MG/DL (7-18) Creatinine 0.57 MG/DL (0.60-1.30) Estimat Glomerular Filtration 173 ML/MIN Rate (>89) Random Glucose 133 MG/DL (74-106) Calcium Level 8.0 MG/DL (8.5-10.1) Test 10/09/16 10/09/16 10/09/16 10/09/16 06:19 11:45 18:15 23:12 White Blood Count 17.2 TH/MM3 (4.0-11.0) Red Blood Count 2.32 MIL/MM3 (4.50-5.90) Hemoglobin 7.0 GM/DL (13.0-17.0) Hematocrit 20.1 % (39.0-51.0) Mean Corpuscular Volume 86.7 FL (80.0-100.0) Mean Corpuscular Hemoglobin 30.0 PG (27.0-34.0) Mean Corpuscular Hemoglobin 34.6 % Concent (32.0-36.0) Red Cell Distribution Width 13.7 % (11.6-17.2) Platelet Count 331 TH/MM3 (150-450) Mean Platelet Volume 8.1 FL (7.0-11.0) Sodium Level 142 MEQ/L 141 MEQ/L 146 MEQ/L 147 MEQ/L (136-145) (136-145) (136-145) (136-145) Potassium Level 3.9 MEQ/L (3.5-5.1) Chloride Level 106 MEQ/L (98-107) Carbon Dioxide Level 25.5 MEQ/L (21.0-32.0) Anion Gap 11 MEQ/L (5-15) Blood Urea Nitrogen 17 MG/DL (7-18) Creatinine 0.60 MG/DL (0.60-1.30) Estimat Glomerular Filtration 163 ML/MIN Rate (>89) Random Glucose 139 MG/DL (74-106) Calcium Level 7.7 MG/DL (8.5-10.1) Test 10/10/16 10/10/16 10/10/16 10/10/16 06:00 12:00 12:20 13:46 White Blood Count 18.7 TH/MM3 (4.0-11.0) Red Blood Count 2.26 MIL/MM3 (4.50-5.90) Hemoglobin 6.5 GM/DL (13.0-17.0) Hematocrit 20.0 % (39.0-51.0) Mean Corpuscular Volume 88.4 FL (80.0-100.0) Mean Corpuscular Hemoglobin 28.7 PG (27.0-34.0) Mean Corpuscular Hemoglobin 32.4 % Concent (32.0-36.0) Red Cell Distribution Width 14.1 % (11.6-17.2) Platelet Count 347 TH/MM3 (150-450) Mean Platelet Volume 8.0 FL (7.0-11.0) Sodium Level 147 MEQ/L 144 MEQ/L (136-145) (136-145) Potassium Level 4.0 MEQ/L (3.5-5.1) Chloride Level 112 MEQ/L (98-107) Carbon Dioxide Level 29.7 MEQ/L (21.0-32.0) Anion Gap 5 MEQ/L (5-15) Blood Urea Nitrogen 13 MG/DL (7-18) Creatinine 0.60 MG/DL (0.60-1.30) Estimat Glomerular Filtration 163 ML/MIN Rate (>89) Random Glucose 140 MG/DL (74-106) Calcium Level 8.2 MG/DL (8.5-10.1) Blood Type O NEGATIVE O NEGATIVE Antibody Screen NEGATIVE Crossmatch Leukocyte-Reduced Red Blood Cells Blood Bank Comment Result Diagram: 10/10/16 0600 10/10/16 1200 Imaging Last Impressions Head CT 10/08/16 0600 Signed Impressions: Service Date/Time: Saturday, October 08, 2016 05:31 - CONCLUSION: Increasing mass effect mainly associated with the right temporal process Michael Choe MD Chest X-Ray 10/01/16 0000 Signed Impressions: Service Date/Time: Saturday, October 01, 2016 05:10 - CONCLUSION: Slight worsening bilateral perihilar infiltrates. 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 Please see above. No mass or evidence of abscess. 4 mm of leftward midline shift. Small subarachnoid blood. Michael Freitas MD Renal Ultrasound 09/30/16 0000 Signed Impressions: Service Date/Time: Friday, September 30, 2016 18:45 - CONCLUSION: Ultrasound appearance of the kidneys within normal limits. Carrera catheter in the urinary bladder. Nonspecific splenomegaly incidentally noted. Michael Freitas MD Head Magnetic Resonance Angiography 09/30/16 0000 Signed Impressions: Service Date/Time: Friday, September 30, 2016 17:42 - CONCLUSION: No occlusion, aneurysm or other acute intracranial vascular abnormality demonstrated. Michael Freitas MD Procedures 09/30left subclavian central line, left radial arterial line Assessment and Plan Disease Oriented Problem List: (1) Intracranial hemorrhage (2) Sepsis (3) Elevated troponin (4) Subarachnoid hemorrhage (5) Cerebral edema (6) Metabolic encephalopathy (7) Acute respiratory failure with hypoxia (8) Septic shock due to Staphylococcus aureus (9) Rash and nonspecific skin eruption (10) Substance abuse Symptom Scale: (1) Dyspnea (2) Encephalopathy (3) Agitation (4) Constipation Pertinent Non-Medical Issues Psychosocial:originally from [place], lived in [place] since . HS education. Was incarcerated and then in drug rehabilitation in [facility]. 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 Father (parents ) lived in [place] with support from family there. Supported by local friends, coworkers, apartment landlord. Spiritual:believes in God, no particular affiliation. 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 Legal: Patient is not able to participate in decision-making due to clinical condition. He is not . Per [place] statutes his parents would be legal decision makers, mother is serving as primary supported by his sister and father. She reports she has POA paperwork. Ethical issues impacting care: Important Contacts mother Felicita Roberts [phone] ([facility]) sister Elizabeth Rios [phone] father Pradeep Rios [phone] . 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 He is currently in multiorgan failure, critically ill. Possible he can recover with prolonged resuscitation , prolonged ICU course. Remains very high risk for further complications and setbacks though possible he can survive this initial injury/ illness. Code Status: Full Code Plan * Legal decision maker: Patient is not able to participate in decision-making due to clinical condition. He is not . Per [place] statutes his parents would be legal decision makers, mother is serving as primary supported by his sister and father. She reports she has POA paperwork. (palliative SW reviewed and indicates that it does not include medical decision-making) * Goals: Met w pt mother, father, sister at length 10/03 upon initial consultation. Patient sister appears to have a reasonable understanding of conditions, prognosis. Patient mother appears to have a very simple understanding of conditions and prognosis. 10/10goals remain aggressive. Likely they would proceed with tracheostomy and PEG if needed. Patient's mother is hoping for a miracle and wants to continue whatever measures available to help patient recover. They are open to ongoing to conversations as clinical course evolves. Some nursing concerns which I have relayed to charge Nurse Mame * CODE STATUS: full * SYMPTOMS: --dyspnea- intubated for AMS. remains on mech vent; sedated, no tachypnea observed or reported while on sedative- when lightened agitation/tachypnea / changing today to precedex due to ongoing agitation -- agitation- hx substance abuse; hx ADD, on adderall. currently sedated with diprivan, fentanyl, agitation/tachycardia when sedation lightened; nursing titrating fentanyl as needed per critical care -- encephalopathy- multifactorial-- +sepsis, embolic CVA, hx substance abuse , EEG neg seizure -- constipation - no BM recorded since admission 10/01, has scheduled colace, d/w nursing surgical services director prn senna 10/05-->> BM 10/08. Recommend consider scheduled senna to prevent constipation. +flatus, + BS active; cont to evaluate * Palliative care will continue to follow during hospital course as condition evolves, to assist patient/decision-maker with understanding of medical conditions, weighing benefits/burdens of treatment options, for clarification of goals of treatment. Additionally will assist with any symptoms of palliative concern Attestation To help prompt me to consider important information that might be impacting today's encounter and assessment, information from prior notes written by myself or my colleagues may have been "brought forward" into today's note. My signature on this note, however, is an attestation that I personally performed the exam, history, and/or decision-making noted today, and, unless otherwise indicated, the interactions with patient, family, and staff as well as the review of records all occurred today. I also attest that the listed assessment and stated plan reflect my best clinical judgment today based on the combination of historical information, prior notes, and today's exam/ interactions. When time spent is documented, it refers only to time spent today by the signer, or if indicated, combined time spent today by collaborating physician/nurse practitioner. Sandy Liu October 10, 2016 15:33
[2016-10-10] MEDS: DEXMEDETOMIDINE INJ 1,000 MCG in SODIUM CHLOR 0.9% 250 ML INJ 250 ML IV SCH (19:53)
[2016-10-10] MEDS: MELATONIN 5 MG TAB PO SCH (21:45)
[2016-10-11] VITALS (18 sets, daily range): BP systolic 114–166; BP diastolic 52–76; PULSE 88–141; RESP 15–22; TEMP 97.1–100.3; O2SAT 94–100
[2016-10-11] MEDS: RESP: ALBUTEROL 2.5 MG/IPRATROPIUM 0.5 MG NEB (SCH) INH ×4 (01:12→19:44)
--- NOTE | 2016-10-11 01:43 | RADRPT ---
EXAM DATE/TIME: 10/11/2016 01:19 [facility] COMPARISON: CHEST SINGLE AP, October 01, 2016, 5:10. INDICATIONS : Shortness of breath. MEDICAL HISTORY : Gastroesophageal reflux disease. SURGICAL HISTORY : None. ENCOUNTER: Subsequent ACUITY: 1 week PAIN SCORE: Non-responsive. LOCATION: Bilateral chest FINDINGS: Endotracheal tube is present with tip 5 cm above the syeda. Nasogastric tube descends to the stomach . Left subclavian central line is stable in good position. There is diffuse hazy bilateral pleuropare nchymal opacity suggesting infiltrates in layering effusions. Cardiac contours are grossly stable. CONCLUSION: Fairly symmetric diffuse bilateral pleuroparenchymal opacities Michael Choe MD on October 11, 2016 at 1:40 Board Certified Radiologist. This report was verified electronically.
[2016-10-11] MEDS: OXACILLIN INJ 2 GM in SODIUM CHLORIDE 0.9% INJ 100 ML IV SCH ×5 (04:00→19:00)
[2016-10-11] MEDS: CHLORHEXIDINE GLUCONATE 2 % 1 PACK (2 CLOTHS) TOP SCH (04:00)
[2016-10-11] MEDS: GENTAMICIN INJ 70 MG in SODIUM CHLORIDE 0.9% INJ 100 ML IV SCH ×3 (04:01→22:00)
[2016-10-11] MEDS: fentaNYL DRIP 250 ML IV SCH ×2 (04:02→16:52)
[2016-10-11 04:26] LABS: BLOOD GAS BASE EXCESS 2.2 mmol/L (-2-2); BLOOD GAS CARBOXYHEMOGLOBIN 0.6 % (0-4); BLOOD GAS HCO3 26 mmol/L (22-26); BLOOD GAS METHEMOGLOBIN 0.9 % (0-2); BLOOD GAS O2 HGB SATURATION 97 % (90-100); BLOOD GAS OXYGEN CONTENT 20.5 Vol % (12.0-20.0); BLOOD GAS PCO2 40 mmHg (38-42); BLOOD GAS PO2 155 mmHg (61-120); BLOOD GAS TOTAL HGB 14.8 G/DL (12.0-16.0); CRITICAL VALUE NO; OXYGEN DEVICE VENTILATOR; TEMP CORR TO 98.6
[2016-10-11] MEDS: DEXMEDETOMIDINE INJ 1,000 MCG in SODIUM CHLOR 0.9% 250 ML INJ 250 ML IV SCH (04:26)
[2016-10-11 04:27] LABS: DRAW SITE ALINE; FIO2 90 %; STAT NO
[2016-10-11 04:45] LABS: BASOPHIL # 0.1 TH/MM3 (0-0.2); BASOPHIL % 0.5 % (0.0-2.0); EOSINOPHIL # 0.1 TH/MM3 (0-0.4); EOSINOPHIL % 0.6 % (0.0-4.0); HEMATOCRIT 23.8 % (39.0-51.0); HEMO FLAGS DIFF FINAL; LYMPH % 7.2 % (9.0-44.0); LYMPHOCYTE # 1.3 TH/MM3 (1.0-4.8); MEAN CELL VOLUME 86.3 FL (80.0-100.0); MEAN CORPUSCULAR HEMOGLOBIN 28.7 PG (27.0-34.0); MEAN CORPUSCULAR HGB CONC 33.3 % (32.0-36.0); MONO % 3.3 % (0.0-8.0); NEUT % 88.4 % (16.0-70.0); PLATELET COUNT 317 TH/MM3 (150-450); RED BLOOD COUNT 2.76 MIL/MM3 (4.50-5.90); RED CELL DISTRIBUTION WIDTH 14.4 % (11.6-17.2); WHITE BLOOD COUNT 18.1 TH/MM3 (4.0-11.0)
[2016-10-11] MEDS: QUEtiapine FUMARATE 100 MG TAB PO SCH ×3 (05:03→22:00)
[2016-10-11 05:04] LABS: ALT (GPT) 23 U/L (12-78); ANION GAP 6 MEQ/L (5-15); AST (GOT) 22 U/L (15-37); BICARBONATE 28.2 MEQ/L (21.0-32.0); BLOOD UREA NITROGEN 14 MG/DL (7-18); CHLORIDE 112 MEQ/L (98-107); GLOMERULAR FILTRATION RATE 163 ML/MIN (>89); MAGNESIUM 2.2 MG/DL (1.5-2.5); POTASSIUM 3.9 MEQ/L (3.5-5.1); SODIUM (NA) 146 MEQ/L (136-145)
[2016-10-11 05:07] LABS: ALKALINE PHOSPHATASE 84 U/L (45-117); TOTAL BILIRUBIN ADULT 0.3 MG/DL (0.2-1.0)
[2016-10-11] MEDS: INSULIN NovoLIN REGULAR SUPPLEMENTAL SCALE SQ SCH ×4 (06:00→18:00)
[2016-10-11] MEDS: 3% SALINE INJ 250 ML IV SCH ×5 (06:00→20:26)
[2016-10-11] MEDS: DOCUSATE SODIUM 100 MG/10 ML UDC G-TUBE SCH ×2 (08:05→20:00)
[2016-10-11] MEDS: PANTOPRAZOLE SODIUM 40 MG VIAL IV SCH (08:05)
[2016-10-11] MEDS: CHLORHEXIDINE 0.12% (ORAL KIT) 15 ML CUP MT SCH ×2 (08:05→22:01)
[2016-10-11] MEDS: SODIUM CHLORIDE 0.9% FLUSH 10 ML FLUSH IV FLUSH SCH ×2 (08:06→22:01)
[2016-10-11] MEDS: ARTIFICIAL TEARS OPTH SOLN 15 ML BTL EACH EYE SCH ×3 (08:06→16:52)
[2016-10-11] MEDS ORDERED: CISATRACURIUM BESYLATE 20 MG/10 ML VIAL IV PUSH ONE (09:15)
--- NOTE | 2016-10-11 09:15 | HHI.CCPN ---
Subjective Remarks/Hospital Course Hospital Course: This is a 26yM who presents to the ED for altered mental status. On arrival, the patient was obtunded and emergently intubated. His roommate is with him and cannot provide much medical history. The remainder of the history is per EMS and ER documentation and my discussion with the ER physician. Per EMS and ED reports, patient was seen approximately 10 days prior to admission by an unknown physician in the clinic and given antibiotic for fever. After taking the antibiotic, the patient had a new red rash on his hands and healing on his feet. He he was seen in the emergency department 2 days prior to admission for low-grade fever and congestion, generalized weakness, lightheadedness. At that time she was given prescription for prednisone 40 mg daily for 5 days. The patient's landlord apparently found the patient today with altered mental status and called EMS. When EMS arrived, his GCS was 10. There is reports that the patient has a history of substance abuse and was recently in rehabilitation. I did talk to the roommate who confirms that the patient had recently gotten out of rehabilitation and was living with him. The remainder does say that he does not think the patient has been taking any illicit substances recently. In the emergency department, the patient was hypotensive, tachycardic. His head CT is significant for significant areas of infarction in the right frontal , temporal, and cerebellar regions as well as a small area of subarachnoid hemorrhage in the superior right parietal region. Patient has early 3 mm of midline shift as well as effacement on the right. Patient's laboratory data is significant for white blood cell count of 19,000, hemoglobin of 9.9, lactate of 3.7, creatinine 1.69, CK 372, troponin of 11.9. His urine drug screen is positive for opiates and amphetamines. I performed a bedside critical care ultrasound which demonstrated hyperdynamic left ventricular function and what appears to be aortic valve vegetations and I measured to be proximally 0.9 x 8.8 cm. This is associated with what appears to be severe aortic regurgitation. There is no pericardial effusion. Right ventricular function is preserved. A formal echo has been ordered to confirm these findings. Critical care medicine has been consulted to evaluate and manage his shock, altered mental status, multiple areas of infarction, and subarachnoid hemorrhage. Subjective: 10/01: seen and examined around 06:30am. patient on norepinephrine at 6 mcg/min , persistently in shock. patient localizes to pain x [address] extremities. repeat interval head CT with 4mm midline shift. echo with significant aortic valve vegetations and moderate aortic insufficiency. 10/02: now following commands intermittently on the RUE, still localizing in LUE , BLE. off vasopressors this morning. cultures growing staph, sensitivities to follow. 10/03: tachycardic overnight. off vasopressors this morning. not following commands this morning. still persistently febrile and wbc uptrended to 20k. 10/04: still encephalopathic. EEG negative for seizure activity. received 1 trial dose of oxacillin yesterday without evidence of allergic reaction. will let ID guide this therapy, but safe from a critical care standpoint to pursue oxacillin therapy. cultures persistently positive and wbc uptrending. still febrile. 10/05: persistent encephalopathy. but now briskly purposeful x 4. now on oxacillin. discussed with ID, and will plan to start gent induction. wbc downtrending today. still febrile. will continue surveilance cultures q48h until 2 sets negative. 10/06: neuro exam unchanged. still purposeful. blood cultures negative x 24h. will re-draw today. still persists on 1mcg/min levophed, though this has also slightly improved from yesterday. 10/07: neuro exam stable. very agitated, not following commands. blood cultures negative x 48h. off levophed. 10/08: neuro exam stable. CT with increased midline shift and persistent edema, particularly right side. back on levophed. febrile. wbc stable. 10/09: sodium not at goal, likely due to normal renal function. follows commands in the RUE, which is new. spontaneously moves BLE, LUE. wbc downtrending. hgb 7 this AM, but no other signs of end-organ damage from low o2 delivery. 10/10 failed to SBT today due to rapid shallow breathing also tachycardia. Patient found to have a significant anemia below 7 will transfuse and reattempt SBT later today 10/11: Flash pulmonary edema today requiring sedation protocol and vent manipulations. Hypoxemia to 70s. Objective Vital Signs Date Time Temp Pulse Resp B/P Pulse Ox O2 Delivery O2 Flow Rate FiO2 10/11/16 08:08 98 80 10/11/16 06:00 94 10/11/16 04:00 99.2 18 122/68 Intake and Output 10/10/16 10/10/16 10/11/16 08:00 16:00 00:00 Intake Total 1351 ml 1460 ml 1826 ml Output Total 1200 ml 1800 ml 1200 ml Balance 151 ml -340 ml 626 ml Result Diagram: 10/11/16 0430 10/11/16 0430 Other Results Laboratory Tests Test 10/11/16 04:16 Blood Gas Puncture Site SHAWN Blood Gas Patient Temperature 98.6 Blood Gas HCO3 26 mmol/L (22-26) Blood Gas Base Excess 2.2 mmol/L (-2-2) Blood Gas Oxygen Saturation 97 % (90-100) Arterial Blood pH 7.43 (7.380-7.420) Arterial Blood Partial 40 mmHg (38-42) Pressure CO2 Arterial Blood Partial 155 mmHg Pressure O2 (61-120) Arterial Blood Oxygen Content 20.5 Vol % (12.0-20.0) Arterial Blood 0.6 % (0-4) Carboxyhemoglobin Arterial Blood Methemoglobin 0.9 % (0-2) Blood Gas Hemoglobin 14.8 G/DL (12.0-16.0) Oxygen Delivery Device VENTILATOR Blood Gas Ventilator Setting SEE COMMENT Blood Gas Inspired Oxygen 90 % Imaging Last Impressions Head CT 09/30/16 8876 Signed Impressions: Service Date/Time: Friday, September 30, 2016 16:31 - CONCLUSION: Noncontrast CT findings of concern for multiple intra-axial masses. There is small acute subarachnoid blood present and about 3 mm of leftward midline shift. MRI of the brain with and without contrast recommended. Michael Freitas MD Chest X-Ray 09/30/16 1063 Signed Impressions: Service Date/Time: Friday, September 30, 2016 15:23 - CONCLUSION: No acute cardiopulmonary disease demonstrated. Appropriate endotracheal tube tip position. Nasogastric tube courses into the stomach, tip not included on the study. Michael Freitas MD Objective Remarks GENERAL: Young male, lying in bed, intubated, sedated, critically ill HEENT: Pupils 3 mm, equal, sluggishly reactive. Mucous membranes moist. NECK: No JVD. Trachea midline. Orotracheally intubated CHEST: Equal chest rise. Clear to auscultation. CARDIOVASCULAR: Tachycardic rate, regular rhythm. II/ systolic and diastolic murmur. ABDOMEN: Soft, nontender, nondistended. No guarding. MUSCULOSKELETAL: rash on feet has improved. No peripheral edema. Distal pulses 2+. NEUROLOGICAL: RASS -2. CAM+. follows commands in RUE. withdraws in LUE, BLE. 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 Still critically ill and with ongoing encephalopathy. evidence of worsening cerebral edema, particularly right temporal area. despite 3% NaCl, sodium not at goal. will add single dose of 23% nacl and intermittent 3% boluses on top of increased 3% drip. will attempt to avoid mannitol given gentamicin induction therapy and to support renal perfusion. neuro exam stable. continue to follow cultures. We will continue with supportive care. Remains very critically ill at this time. If we do not have significant improvements, will need to consider trach. Plan by systems: Neurologic: Multiple acute septic CVAs Cerebral edema Small subarachnoid hemorrhage Midline shift, 4 mm Metabolic encephalopathy Agitated Delirium- slightly improved. Neurosurgery consulted, Dr. Michelle q1h neuro checks --prop/fent for goal RASS -2. --avoid long-acting sedating meds --EEG 10/01- negative for seizures -- seroquel 100mg q8hr. -- melatonin to assist with sleep/wake cycles -- delirium and agitation persists, though slightly improved today. -- interval head CT in AM to re-assess edema. -- 250cc 3% bolus q6h to help maintain sodium goal 145 - 155 while edema persists -- 60mL 23% nacl x 1 -- increased 3% drip to 40 cc/hr - sodium 147 today, will continue - Precedex trial with a goal to wean off propofol and attempt SBT Respiratory: Acute hypoxic and hypercarbic respiratory failure Vent bundle Head of bed 30 Avoid hypercarbia and hypoxia daily SBTs. Wean FiO2 for goal SPO2 greater than 92% Cardiovascular: Aortic valve endocarditis Moderate aortic insufficiency Cardiogenic shock- resolved. Septic shock- resolving. Arterial line, central line for invasive central pressure monitoring --trend CVP. Abx as described below 2d echo 10/01: aortic valve vegetations, moderate AI. remains on levophed 8mcg/min today. continue to wean as tolerated for map > 65. Renal: Acute kidney injury- resolved. Jerez for accurate I's and O's -- Strict I/Os FEN/GI: Hypermagnesemia Lactic acidosis- resolved. Severe metabolic acidosis- resolved. Acute protein calorie malnutritionmild Elevated LFTs jevity 1.5, nutrition consult. OG tube to suction Daily BMP Heme/ID: Anemia, likely secondary to hemolysis from valvulopathy Infective endocarditis Septic shock- resolving. 10/01 blood cultures: MSSA --10/01 sputum culture: MSSA --10/02 blood cultures: MSSA --10/03 blood cultures: MSSA --10/04 bl cx: MSSA --10/05 bl cx: NGTD --10/06 bl cx: NGTD vancomycin, flagyl d/c 10/02. --oxacillin started 10/02 --gentamicin induction therapy per ID. started 10/05 Infectious disease following: Dontfraid Endocrine: Hyperglycemia of critical illness -- SSI, every 6 hours, medium scale TSH 0.16, free T4 1.07, T3 < 0.5: likely sick euthyroid. Prophylaxis: GI Prophylaxis Protonix IV DVT Prophylaxis -- SCDs Holding pharmacologic DVT prophylaxis in the setting of cerebral hemorrhage Lines: 09/30 radial arterial line --09/30 left SC TLC --Solitario Dispo: Remain in the ICU. He remains critically ill and deteriorating. This patient remains critically ill with one or more organ systems which are or may become a threat to life. I have spent in excess of 30 minutes discontinuously in the care and management of this patient. This time is exclusive of procedures, and includes, but is not limited to, evaluation of the patient, review of the medical record, discussions with family, consultants, nursing staff, or respiratory therapy, and documentation in the medical record. Robert Cartagena MD Oct 11, 2016 09:15
--- NOTE | 2016-10-11 10:36 | HHI.NSPN ---
History Chief Complaint: Intubated & sedated Interval History 10/01: The HPI is obtained from a review of the EMR due to the patient's altered mental status and intubation. This is a 26-year-old male who was found by his landlord on with altered mental status and called EMS. Upon arrival of EMS the patient had a GCS of 10. In the emergency department the patient was hypotensive and tachycardiac. He was emergently intubated for airway protection. His CT brain demonstrated significant areas of infarction to the right frontal, temporal and cerebellar regions as well as a small subarachnoid haemorrhage to the superior right parietal region. There was a 3 mm midline shift as well as effacement on the right. The patient's laboratory data is significant for white blood cell count of 19,000, haemoglobin of 9.9, lactate of 3.7, creatinine 1.69, CK 372, troponin of 11.9. His urine drug screen is positive for opiates and amphetamines. He was subsequently admitted to the [facility] for further management and monitoring. Per EMS and ED reports, patient was seen approximately 10 days prior to admission by an unknown physician in the clinic and given antibiotic for fever. After taking the antibiotic, the patient had a new red rash on his hands and healing on his feet. He he was seen in the emergency department 2 days prior to admission for low-grade fever and congestion, generalized weakness, lightheadedness. At that time she was given prescription for prednisone 40 mg daily for 5 days. The patient's landlord apparently found the patient today with altered mental status and called EMS. When EMS arrived, his GCS was 10. There is reports that the patient has a history of substance abuse and was recently in rehabilitation. The patient's roommate confirmed to the Behavioral Health Case Manager that the patient had recently been in rehabilitation due to a history of substance abuse. The roommate did not think he was doing any illicit drugs recently. 10/02: The patient remains intubated & sedated. He withdraws to painful stimuli to the extremities. 10/03: The patient is sedated with propofol & fentanyl. Nursing reports that he does move the RUE mostly but will move the BLE when the sedation is off. Nursing reported no movement of the LUE. When EEG was at the bedside with the sedation down the patient became quite agitated and was kicking out. 10/04: The patient remains sedated. Nursing states he continues to be agitated when the sedation is off. A CT brain yesterday demonstrated multiple evolving infarcts. 10/05: The patient is still sedated with propofol & fentanyl. He does not appear to be responding to verbal commands. 10/09: The patient remains sedated with propofol & fentanyl. He did open his right eye on his own as Nursing & this practitioner were talking in the room. He did withdraw on the left side to noxious stimuli. 10/11: The patient had received Nimbex prior to being seen due to fighting the vent. When seen the patient was becoming tachypneic and fighting against the vent again. His mother did say she was told he had a good night and yesterday was moving all extremities although the left upper was weaker. His CXR this morning was suggestive of infiltrates in layering effusions. The Behavioral Health Case Manager felt the patient was in flash pulmonary edema. System Review Comments Unable to obtain ROS due to patient's mental status and being intubated & sedated. Exam Results Vital Signs Date Time Temp Pulse Resp B/P Pulse Ox O2 Delivery O2 Flow Rate FiO2 10/11/16 09:10 70 10/11/16 08:08 98 10/11/16 08:00 97.1 96 18 122/58 Intake and Output 10/10/16 10/10/16 10/11/16 08:00 16:00 00:00 Intake Total 1351 ml 1460 ml 1826 ml Output Total 1200 ml 1800 ml 1200 ml Balance 151 ml -340 ml 626 ml Physical Examination GENERAL: Sedated & intubated, Nimbex wearing off and patient struggling against vent. HEENT: Normocephalic, atraumatic. PERRL 3 mm, sluggish. Mucous membranes moist, orally intubated, OGT present. CHEST: Essentially clear bilaterally, equal excursion, laboured, orally intubated & mechanically ventilated. CARDIOVASCULAR: S1S2 w/regular rate but fast, radial & pedal pulses 2+ bilaterally, cap refill < 2 sec, 1+ edema at ankles but less to feet. Monitor is sinus tachycardia w/o any ectopy noted. ABDOMEN: Abdomen soft, nontender, positive bowel sounds, OGT with enteral feeds. GENITOURINARY: Catheter to BSD. MUSCULOSKELETAL: No movement of extremities, no evident deformity or clubbing. INTEGUMENTARY: The nonblanching macular rash to the feet & ankle essentially resolved, continued evolution of skin desquamation. The tip of the right great toe with evolving necrotic area. NEUROLOGICAL: Sedated & intubated, Nimbex wearing off, GCS 5T (E3 V1T M1) Partial right eye opening He is not following any commands, no reponse to noxious stimuli. Unable to assess for sensory deficit due to mental status Lab, Micro, Other Results Allergies Coded Allergies Type Severity Reaction Last Updated Verified Hydrocodone Allergy Unknown Nausea/Vomiting 10/04/16 Yes Sulfa Allergy Unknown 09/30/16 Yes Toradol Allergy Unknown 09/30/16 Yes Recent Impressions Chest X-Ray 10/11/16 0000 Signed Impressions: Service Date/Time: October 01:19 - CONCLUSION: Fairly symmetric diffuse bilateral pleuroparenchymal opacities Michael Choe MD 10/09///175//175//176/1//05/29 06:00 18:00 06:00 18:00 06:00 18:00 Intake Total 2163 ml 1292 ml 2713 ml 1460 ml 3414 ml Output Total 900 ml 1400 ml 2200 ml 1800 ml 2100 ml Balance 1263 ml -108 ml 513 ml -340 ml 1314 ml Intake IV Total 1265 ml 676 ml 1908 ml 887 ml 1819 ml Tube Feeding 898 ml 516 ml 685 ml 513 ml 895 ml Packed Cells 500 ml Tube Irrigant 120 ml 60 ml 200 ml Other 100 ml Output Urine Total 900 ml 1400 ml 2200 ml 1800 ml 2100 ml # Bowel Movements 0 0 0 0 Laboratory Tests Test 10/08/16 10/08/16 10/08/16 10/09/16 12:15 17:30 23:10 06:19 Sodium Level 140 MEQ/L 141 MEQ/L 142 MEQ/L 142 MEQ/L White Blood Count 17.2 TH/MM3 Red Blood Count 2.32 MIL/MM3 Hemoglobin 7.0 GM/DL Hematocrit 20.1 % Mean Corpuscular Volume 86.7 FL Mean Corpuscular Hemoglobin 30.0 PG Mean Corpuscular Hemoglobin 34.6 % Concent Red Cell Distribution Width 13.7 % Platelet Count 331 TH/MM3 Mean Platelet Volume 8.1 FL Potassium Level 3.9 MEQ/L Chloride Level 106 MEQ/L Carbon Dioxide Level 25.5 MEQ/L Anion Gap 11 MEQ/L Blood Urea Nitrogen 17 MG/DL Creatinine 0.60 MG/DL Estimat Glomerular Filtration 163 ML/MIN Rate Random Glucose 139 MG/DL Calcium Level 7.7 MG/DL Test 10/09/16 10/09/16 10/09/16 10/10/16 11:45 18:15 23:12 06:00 Sodium Level 141 MEQ/L 146 MEQ/L 147 MEQ/L 147 MEQ/L White Blood Count 18.7 TH/MM3 Red Blood Count 2.26 MIL/MM3 Hemoglobin 6.5 GM/DL Hematocrit 20.0 % Mean Corpuscular Volume 88.4 FL Mean Corpuscular Hemoglobin 28.7 PG Mean Corpuscular Hemoglobin 32.4 % Concent Red Cell Distribution Width 14.1 % Platelet Count 347 TH/MM3 Mean Platelet Volume 8.0 FL Potassium Level 4.0 MEQ/L Chloride Level 112 MEQ/L Carbon Dioxide Level 29.7 MEQ/L Anion Gap 5 MEQ/L Blood Urea Nitrogen 13 MG/DL Creatinine 0.60 MG/DL Estimat Glomerular Filtration 163 ML/MIN Rate Random Glucose 140 MG/DL Calcium Level 8.2 MG/DL Test 10/10/16 10/10/16 10/10/16 10/10/16 12:00 12:20 13:46 17:49 Sodium Level 144 MEQ/L 146 MEQ/L Blood Type O NEGATIVE O NEGATIVE Antibody Screen NEGATIVE Crossmatch Leukocyte-Reduced Red Blood Cells Blood Bank Comment Test 10/11/16 10/11/16 04:16 04:30 Blood Gas Puncture Site SHAWN Blood Gas Patient Temperature 98.6 Blood Gas HCO3 26 mmol/L Blood Gas Base Excess 2.2 mmol/L Blood Gas Oxygen Saturation 97 % Arterial Blood pH 7.43 Arterial Blood Partial 40 mmHg Pressure CO2 Arterial Blood Partial 155 mmHg Pressure O2 Arterial Blood Oxygen Content 20.5 Vol % Arterial Blood 0.6 % Carboxyhemoglobin Arterial Blood Methemoglobin 0.9 % Blood Gas Hemoglobin 14.8 G/DL Oxygen Delivery Device VENTILATOR Blood Gas Ventilator Setting SEE COMMENT Blood Gas Inspired Oxygen 90 % White Blood Count 18.1 TH/MM3 Red Blood Count 2.76 MIL/MM3 Hemoglobin 7.9 GM/DL Hematocrit 23.8 % Mean Corpuscular Volume 86.3 FL Mean Corpuscular Hemoglobin 28.7 PG Mean Corpuscular Hemoglobin 33.3 % Concent Red Cell Distribution Width 14.4 % Platelet Count 317 TH/MM3 Mean Platelet Volume 8.0 FL Neutrophils (%) (Auto) 88.4 % Lymphocytes (%) (Auto) 7.2 % Monocytes (%) (Auto) 3.3 % Eosinophils (%) (Auto) 0.6 % Basophils (%) (Auto) 0.5 % Neutrophils # (Auto) 16.0 TH/MM3 Lymphocytes # (Auto) 1.3 TH/MM3 Monocytes # (Auto) 0.6 TH/MM3 Eosinophils # (Auto) 0.1 TH/MM3 Basophils # (Auto) 0.1 TH/MM3 CBC Comment DIFF FINAL Differential Comment Sodium Level 146 MEQ/L Potassium Level 3.9 MEQ/L Chloride Level 112 MEQ/L Carbon Dioxide Level 28.2 MEQ/L Anion Gap 6 MEQ/L Blood Urea Nitrogen 14 MG/DL Creatinine 0.60 MG/DL Estimat Glomerular Filtration 163 ML/MIN Rate Random Glucose 131 MG/DL Calcium Level 8.4 MG/DL Phosphorus Level 3.6 MG/DL Magnesium Level 2.2 MG/DL Total Bilirubin 0.3 MG/DL Aspartate Amino Transf 22 U/L (AST/SGOT) Alanine Aminotransferase 23 U/L (ALT/SGPT) Alkaline Phosphatase 84 U/L Total Protein 6.8 GM/DL Albumin 1.6 GM/DL Vital Signs Date Time Temp Pulse Resp B/P Pulse Ox O2 Delivery O2 Flow Rate FiO2 10/11/16 09:10 70 10/11/16 08:08 98 80 10/11/16 08:00 97.1 96 18 122/58 100 10/11/16 08:00 80 10/11/16 08:00 102 10/11/16 06:00 94 10/11/16 04:00 80 10/11/16 04:00 91 10/11/16 04:00 99.2 88 18 122/68 100 10/11/16 03:31 100 90 10/11/16 02:00 94 10/11/16 00:50 95 60 10/11/16 00:00 60 10/11/16 00:00 94 10/11/16 00:00 97.9 94 15 130/60 96 10/10/16 22:00 95 10/10/16 20:21 98 60 10/10/16 20:00 60 10/10/16 20:00 115 10/10/16 20:00 101.4 89 17 114/57 95 10/10/16 19:40 98.7 89 16 127/78 99 10/10/16 19:40 99.1 98 16 133/57 99 10/10/16 18:13 99.6 108 18 125/54 97 10/10/16 18:00 106 10/10/16 16:00 130 10/10/16 16:00 60 10/10/16 16:00 99.6 130 17 142/46 100 10/10/16 14:39 97 60 10/10/16 14:00 114 10/10/16 12:00 45 10/10/16 12:00 92 10/10/16 12:00 99.9 92 15 128/48 100 10/10/16 11:23 99 40 10/10/16 10:00 112 10/10/16 09:30 45 10/10/16 08:15 40 10/10/16 08:15 40 10/10/16 08:11 99 40 10/10/16 08:00 110 10/10/16 08:00 45 10/10/16 08:00 99.8 110 18 128/50 99 10/10/16 07:04 87 10/10/16 06:00 103 10/10/16 04:00 114 10/10/16 04:00 98.8 114 16 130/53 100 10/10/16 04:00 45 10/10/16 03:40 100 40 10/10/16 02:00 93 10/10/16 00:40 100 40 10/10/16 00:00 85 10/10/16 00:00 97.3 102 17 114/55 100 10/10/16 00:00 45 10/09/16 22:00 90 10/09/16 21:24 99 40 10/09/16 20:00 45 10/09/16 20:00 100.7 87 15 128/58 100 10/09/16 20:00 87 10/09/16 18:00 110 10/09/16 16:00 98.7 94 19 127/63 100 10/09/16 16:00 40 10/09/16 16:00 91 10/09/16 15:19 100 40 10/09/16 14:00 110 10/09/16 12:00 83 10/09/16 12:00 99.5 85 16 126/52 100 10/09/16 12:00 40 10/09/16 11:19 99 40 10/09/16 10:00 83 10/09/16 08:21 30 10/09/16 08:21 100 40 10/09/16 08:00 87 10/09/16 08:00 40 10/09/16 08:00 99.9 81 20 122/45 100 10/09/16 06:00 108 10/09/16 04:00 45 10/09/16 04:00 98.7 80 17 112/48 99 10/09/16 04:00 95 10/09/16 03:56 98 40 10/09/16 02:10 100 40 10/09/16 02:00 90 10/09/16 00:00 45 10/09/16 00:00 92 10/09/16 00:00 99.9 89 16 127/54 100 10/08/16 22:00 85 10/08/16 21:00 100 40 10/08/16 20:00 99.2 96 16 121/62 100 10/08/16 20:00 45 10/08/16 20:00 96 10/08/16 18:00 83 10/08/16 16:00 45 10/08/16 16:00 97 10/08/16 16:00 99.8 97 16 129/50 100 10/08/16 15:16 99 40 10/08/16 14:00 110 10/08/16 12:00 45 10/08/16 12:00 103 10/08/16 12:00 99.4 102 13 122/53 98 10/08/16 11:52 100 40 Medical Decision Making Impression and Plan Impression: Multiple acute septic CVAs Cerebral edema Small subarachnoid hemorrhage Midline shift, 3 mm Metabolic encephalopathy Septic shock Infective endocarditis CT brain demonstrates increasing mass effect mainly associated with the right temporal process Unable to assess patient due to Nimbex Plan: Stat CT brain for any further decline in neurological status Frequent neuro checks Continue 3% saline & monitor sodium level Critical care management by Behavioral Health Case Manager Antibiotics per Infectious Disease Elliott Fragoso Oct 11, 2016 10:36
--- NOTE | 2016-10-11 10:44 | HHI.HCSW ---
Licensed Loan Officer Assistant Visit Cognitive Functioning Currently on vent, appears to be utilizing additional muscles for breathing. Somewhat restless. . Significant Family/Friend Met with patient's mom at bedside. Currently struggling and tearful with patients change in medical condition. Verbalizes "it's hard to see" "feels hopeless" Offered production tool engineer, mom requests hangersmith as she is uatsdin. Access Clinician Yahir aware and facilitating visit per mom's request. Mother verbalizes "I knew there would be set backups but not like this, it's hard to see, I'm praying for a miracle". Offered emotional support and active listening provided. Mom very appreciative. . Pertinent Social History Not . No children. Supported by mother, father, and sister- one usually at patient's bedside. . Quality of Life Values/Goals Family remains hopeful, verbalize hoping for a miracle. Goals aggressive at this time. . Spiritual/Religion Components Chaplains following. Curriculum Coach visit requested per mom's request as she is uatsdin. . Medical Components Current setback. Nurse and review of EMR report new pneumonia and flash pulmonary edema. . Advance Directive No written advanced directives. Per [place] Statutes, parent(s) would be medical proxy decision maker as Mr. Rios is not and has no children. . Proposed Soc Wrk Intervention Continued emotional and social support. Family continues to struggle, remaining hopeful, regarding Mr. Rios's medical condition. . Follow Up Visit Palliative care TOE PULLER/MD to follow-up regarding change in condition. Palliative care will continue to follow throughout hospitalization. SW will follow for emotional and social support. Madison Cervantes, RUBIO Oct 11, 2016 10:44
[2016-10-11] MEDS: MIDAZOLAM 100 MG/NS 100 ML DRIP Premix IV SCH (11:18)
[2016-10-11] MEDS: NOREPINEPHRINE INJ 4 MG in SODIUM CHLOR 0.9% 250 ML INJ 250 ML IV SCH ×2 (11:18→16:52)
[2016-10-11 11:42] LABS: BASOPHIL % 0.1 % (0.0-2.0); EOSINOPHIL # 0.1 TH/MM3 (0-0.4); EOSINOPHIL % 0.2 % (0.0-4.0); HEMATOCRIT 26.3 % (39.0-51.0); LYMPH % 2.8 % (9.0-44.0); MEAN CELL VOLUME 86.1 FL (80.0-100.0); MEAN CORPUSCULAR HEMOGLOBIN 29.3 PG (27.0-34.0); MONO % 2.8 % (0.0-8.0); NEUT % 94.1 % (16.0-70.0); PLATELET COUNT 419 TH/MM3 (150-450); RED BLOOD COUNT 3.05 MIL/MM3 (4.50-5.90); RED CELL DISTRIBUTION WIDTH 14.8 % (11.6-17.2)
--- NOTE | 2016-10-11 11:42 | HHI.HCPN ---
Reason for visit a. To assist with evaluation and management of symptoms including:dyspnea, encephalopathy, agitation, constipation b. To assist medical decision maker(s) with: better understanding of current medical conditions; weighing benefits/burdens of medical treatment options; making medical treatment decisions. Subjective/Interval History Patient seen today due to a decline in condition. 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 He developed flash pulmonary edema superimposed upon the above existing conditions and developed hypoxemia with saturations in the 70s. He is seen on 100% FiO2 and sedation has been changed from Precedex to propofol. Oxygen saturations remain in the 80s. He is hypotensive and tachycardic, requiring initiation of Levophed for hemodynamic support. On 8 g of Levophed his blood pressure is 99/34. MAP remains in the 50s. White blood cell count is 18.1, hemoglobin 7.9 and hematocrit 23.8 after receiving 1 unit of packed red blood cells yesterday. Platelet count is normal at 317. Chemistries show a sodium of 146, potassium 3.9, chloride 112, BUN 14 and creatinine 0.60. Albumin is low at 1.6. Arterial blood gas on 90% FiO2 shows bicarbonate 26 base excess +2.2 oxygen saturation 97% pH 7.43 PCO2 40 PaO2 155. Family/friend interactions Mother, father and sister are at bedside. Clinical findings were discussed with the family explaining the impact on the body of hypotension, hypoxemia, sepsis, bacteremia and pneumonia to include the possibility, and even likelihood , of impending . The mother remains stoic in her assertions that he will survive this. Her goals are very aggressive and intends to take all measures for resuscitation. Palliative care is seeing patient to assess symptoms, update family on medical therapy and provide support for goals of care. A drug safety data management specialist has been contacted to assist the mother in spiritual support at her request. Advance Directives Living Will: Never completed Health Care Surrogate: Never completed Durable Power of Disability Services Coordinator: Completed, but not made available (mother reports has POA, not clear if this includes medical decision making, awaiting copies of documents) Objective Vital Signs Date Time Temp Pulse Resp B/P Pulse Ox O2 Delivery O2 Flow Rate FiO2 10/11/16 10:00 141 10/11/16 09:10 70 10/11/16 08:08 98 80 10/11/16 08:00 97.1 96 18 122/58 100 10/11/16 08:00 80 10/11/16 08:00 102 10/11/16 06:00 94 10/11/16 04:00 80 10/11/16 04:00 91 10/11/16 04:00 99.2 88 18 122/68 100 10/11/16 03:31 100 90 10/11/16 02:00 94 10/11/16 00:50 95 60 10/11/16 00:00 60 10/11/16 00:00 94 10/11/16 00:00 97.9 94 15 130/60 96 10/10/16 22:00 95 10/10/16 20:21 98 60 10/10/16 20:00 60 10/10/16 20:00 115 10/10/16 20:00 101.4 89 17 114/57 95 10/10/16 19:40 98.7 89 16 127/78 99 10/10/16 19:40 99.1 98 16 133/57 99 10/10/16 18:13 99.6 108 18 125/54 97 10/10/16 18:00 106 10/10/16 16:00 130 10/10/16 16:00 60 10/10/16 16:00 99.6 130 17 142/46 100 10/10/16 14:39 97 60 10/10/16 14:00 114 10/10/16 12:00 45 10/10/16 12:00 92 10/10/16 12:00 99.9 92 15 128/48 100 10/10/16 11:23 99 40 Intake & Output 10/11/16 10/11/16 06:59 18:59 Intake Total 3414 ml Output Total 2100 ml Balance 1314 ml Intake IV Total 1819 ml Tube Feeding 895 ml Packed Cells 500 ml Tube Irrigant 200 ml Output Urine Total 2100 ml # Bowel Movements 0 Physical Exam CONSTITUTIONAL/GENERAL: This is an adequately nourished patient, sedated, arouses with agitation to stimulation on mechanical vent TUBES/LINES/DRAINS: Lt SC central line. ETT, OGT, carrera catheter SKIN: No jaundice, or lesions. + slight resolving peeling bottom feet/Embolic purpuric lesions on LT great toe. peeling bilateral palms of hands. Skin warm CARDIOVASCULAR: Tachycardic rate and regular rhythm without murmur. Peripheral pulses symmetric, no peripheral edema RESPIRATORY/CHEST: Symmetric, unlabored respirations on mech vent. Coarse air movement throughout lungs, breath sounds equal bilat GASTROINTESTINAL: Abdomen soft, nondistended. No palpable masses. No guarding. Bowel sounds present. TF infusing via OGT. GENITOURINARY: Without palpable bladder distension. Carrera catheter in place clear dark yellow urine. NEUROLOGICAL: sedated on mech vent.(Fentanyl, Diprivan) slight eye opening if stimulated, becomes agitated with suctioning. Comments with increase in sedation. Does appear to localize to touch to feet, right upper extremity. No response noted at left upper extremity. PSYCHIATRIC: -- limited assess due to condition/sedation. . Diagnostic Tests Laboratory Laboratory Tests Test 10/08/16 10/08/16 10/08/16 10/09/16 12:15 17:30 23:10 06:19 Sodium Level 140 MEQ/L 141 MEQ/L 142 MEQ/L 142 MEQ/L (136-145) (136-145) (136-145) (136-145) White Blood Count 17.2 TH/MM3 (4.0-11.0) Red Blood Count 2.32 MIL/MM3 (4.50-5.90) Hemoglobin 7.0 GM/DL (13.0-17.0) Hematocrit 20.1 % (39.0-51.0) Mean Corpuscular Volume 86.7 FL (80.0-100.0) Mean Corpuscular Hemoglobin 30.0 PG (27.0-34.0) Mean Corpuscular Hemoglobin 34.6 % Concent (32.0-36.0) Red Cell Distribution Width 13.7 % (11.6-17.2) Platelet Count 331 TH/MM3 (150-450) Mean Platelet Volume 8.1 FL (7.0-11.0) Potassium Level 3.9 MEQ/L (3.5-5.1) Chloride Level 106 MEQ/L (98-107) Carbon Dioxide Level 25.5 MEQ/L (21.0-32.0) Anion Gap 11 MEQ/L (5-15) Blood Urea Nitrogen 17 MG/DL (7-18) Creatinine 0.60 MG/DL (0.60-1.30) Estimat Glomerular Filtration 163 ML/MIN Rate (>89) Random Glucose 139 MG/DL (74-106) Calcium Level 7.7 MG/DL (8.5-10.1) Test 10/09/16 10/09/16 10/09/16 10/10/16 11:45 18:15 23:12 06:00 Sodium Level 141 MEQ/L 146 MEQ/L 147 MEQ/L 147 MEQ/L (136-145) (136-145) (136-145) (136-145) White Blood Count 18.7 TH/MM3 (4.0-11.0) Red Blood Count 2.26 MIL/MM3 (4.50-5.90) Hemoglobin 6.5 GM/DL (13.0-17.0) Hematocrit 20.0 % (39.0-51.0) Mean Corpuscular Volume 88.4 FL (80.0-100.0) Mean Corpuscular Hemoglobin 28.7 PG (27.0-34.0) Mean Corpuscular Hemoglobin 32.4 % Concent (32.0-36.0) Red Cell Distribution Width 14.1 % (11.6-17.2) Platelet Count 347 TH/MM3 (150-450) Mean Platelet Volume 8.0 FL (7.0-11.0) Potassium Level 4.0 MEQ/L (3.5-5.1) Chloride Level 112 MEQ/L (98-107) Carbon Dioxide Level 29.7 MEQ/L (21.0-32.0) Anion Gap 5 MEQ/L (5-15) Blood Urea Nitrogen 13 MG/DL (7-18) Creatinine 0.60 MG/DL (0.60-1.30) Estimat Glomerular Filtration 163 ML/MIN Rate (>89) Random Glucose 140 MG/DL (74-106) Calcium Level 8.2 MG/DL (8.5-10.1) Test 10/10/16 10/10/16 10/10/16 10/10/16 12:00 12:20 13:46 17:49 Sodium Level 144 MEQ/L 146 MEQ/L (136-145) (136-145) Blood Type O NEGATIVE O NEGATIVE Antibody Screen NEGATIVE Crossmatch Leukocyte-Reduced Red Blood Cells Blood Bank Comment Test 10/11/16 10/11/16 04:16 04:30 Blood Gas Puncture Site SHAWN Blood Gas Patient Temperature 98.6 Blood Gas HCO3 26 mmol/L (22-26) Blood Gas Base Excess 2.2 mmol/L (-2-2) Blood Gas Oxygen Saturation 97 % (90-100) Arterial Blood pH 7.43 (7.380-7.420) Arterial Blood Partial 40 mmHg (38-42) Pressure CO2 Arterial Blood Partial 155 mmHg Pressure O2 (61-120) Arterial Blood Oxygen Content 20.5 Vol % (12.0-20.0) Arterial Blood 0.6 % (0-4) Carboxyhemoglobin Arterial Blood Methemoglobin 0.9 % (0-2) Blood Gas Hemoglobin 14.8 G/DL (12.0-16.0) Oxygen Delivery Device VENTILATOR Blood Gas Ventilator Setting SEE COMMENT Blood Gas Inspired Oxygen 90 % White Blood Count 18.1 TH/MM3 (4.0-11.0) Red Blood Count 2.76 MIL/MM3 (4.50-5.90) Hemoglobin 7.9 GM/DL (13.0-17.0) Hematocrit 23.8 % (39.0-51.0) Mean Corpuscular Volume 86.3 FL (80.0-100.0) Mean Corpuscular Hemoglobin 28.7 PG (27.0-34.0) Mean Corpuscular Hemoglobin 33.3 % Concent (32.0-36.0) Red Cell Distribution Width 14.4 % (11.6-17.2) Platelet Count 317 TH/MM3 (150-450) Mean Platelet Volume 8.0 FL (7.0-11.0) Neutrophils (%) (Auto) 88.4 % (16.0-70.0) Lymphocytes (%) (Auto) 7.2 % (9.0-44.0) Monocytes (%) (Auto) 3.3 % (0.0-8.0) Eosinophils (%) (Auto) 0.6 % (0.0-4.0) Basophils (%) (Auto) 0.5 % (0.0-2.0) Neutrophils # (Auto) 16.0 TH/MM3 (1.8-7.7) Lymphocytes # (Auto) 1.3 TH/MM3 (1.0-4.8) Monocytes # (Auto) 0.6 TH/MM3 (0-0.9) Eosinophils # (Auto) 0.1 TH/MM3 (0-0.4) Basophils # (Auto) 0.1 TH/MM3 (0-0.2) CBC Comment DIFF FINAL Differential Comment Sodium Level 146 MEQ/L (136-145) Potassium Level 3.9 MEQ/L (3.5-5.1) Chloride Level 112 MEQ/L (98-107) Carbon Dioxide Level 28.2 MEQ/L (21.0-32.0) Anion Gap 6 MEQ/L (5-15) Blood Urea Nitrogen 14 MG/DL (7-18) Creatinine 0.60 MG/DL (0.60-1.30) Estimat Glomerular Filtration 163 ML/MIN Rate (>89) Random Glucose 131 MG/DL (74-106) Calcium Level 8.4 MG/DL (8.5-10.1) Phosphorus Level 3.6 MG/DL (2.5-4.9) Magnesium Level 2.2 MG/DL (1.5-2.5) Total Bilirubin 0.3 MG/DL (0.2-1.0) Aspartate Amino Transf 22 U/L (15-37) (AST/SGOT) Alanine Aminotransferase 23 U/L (12-78) (ALT/SGPT) Alkaline Phosphatase 84 U/L (45-117) Total Protein 6.8 GM/DL (6.4-8.2) Albumin 1.6 GM/DL (3.4-5.0) Result Diagram: 10/11/16 0430 10/11/16 0430 Microbiology Microbiology Date/Time Procedure Status Source Growth 10/06/16 17:19 Aerobic Blood Culture - Final Complete Blood Peripheral NO GROWTH IN 5 DAYS 10/06/16 17:19 Anaerobic Blood Culture - Final Complete Blood Peripheral NO GROWTH IN 5 DAYS Imaging Last Impressions Chest X-Ray 10/11/16 0000 Signed Impressions: Service Date/Time: October 01:19 - CONCLUSION: Fairly symmetric diffuse bilateral pleuroparenchymal opacities Michael Choe MD Head CT 10/08/16 0600 Signed Impressions: Service Date/Time: Saturday, October 08, 2016 05:31 - CONCLUSION: Increasing mass effect mainly associated with the right temporal process Michael Choe MD Brain MRI 09/30/16 1659 Signed Impressions: Service Date/Time: Friday, September 30, 2016 17:42 - CONCLUSION: Numerous bilateral cerebral and cerebellar acute or subacute infarcts that are most likely embolic. Please see above. No mass or evidence of abscess. 4 mm of leftward midline shift. Small subarachnoid blood. Michael Freitas MD Renal Ultrasound 09/30/16 0000 Signed Impressions: Service Date/Time: Friday, September 30, 2016 18:45 - CONCLUSION: Ultrasound appearance of the kidneys within normal limits. Carrera catheter in the urinary bladder. Nonspecific splenomegaly incidentally noted. Michael Freitas MD Head Magnetic Resonance Angiography 09/30/16 0000 Signed Impressions: Service Date/Time: Friday, September 30, 2016 17:42 - CONCLUSION: No occlusion, aneurysm or other acute intracranial vascular abnormality demonstrated. Michael Freitas MD Procedures 09/30left subclavian central line, left radial arterial line Assessment and Plan Disease Oriented Problem List: (1) Intracranial hemorrhage (2) Sepsis (3) Elevated troponin (4) Subarachnoid hemorrhage (5) Cerebral edema (6) Metabolic encephalopathy (7) Acute respiratory failure with hypoxia (8) Septic shock due to Staphylococcus aureus (9) Rash and nonspecific skin eruption (10) Substance abuse Symptom Scale: (1) Dyspnea 0-10 Scale: Unable to quantify (2) Encephalopathy 0-10 Scale: Unable to quantify (3) Agitation 0-10 Scale: Unable to quantify (4) Constipation 0-10 Scale: Unable to quantify Pertinent Non-Medical Issues Psychosocial:originally from [place], lived in [place] since . HS education. Was incarcerated and then in drug rehabilitation in [facility]. 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 Father (parents ) lived in [place] with support from family there. Supported by local friends, coworkers, apartment landlord. Spiritual:believes in God, no particular affiliation. would want ongoing windows vmware administrator support. Legal: Patient is not able to participate in decision-making due to clinical condition. He is not . Per [place] statutes his parents would be legal decision makers, mother is serving as primary supported by his sister and father. She reports she has POA paperwork. Ethical issues impacting care: Important Contacts mother Felicita Roberts [phone] ([facility]) sister Elizabeth Rios [phone] father Pradeep Rios [phone] . 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 He is currently in multiorgan failure, critically ill. Possible he can recover with prolonged resuscitation , prolonged ICU course. Remains very high risk for further complications and setbacks though possible he can survive this initial injury/ illness. Code Status: Full Code Plan * Legal decision maker: Patient is not able to participate in decision-making due to clinical condition. He is not . Per [place] statutes his parents would be legal decision makers, mother is serving as primary supported by his sister and father. She reports she has POA paperwork. (palliative SW reviewed and indicates that it does not include medical decision-making) * Goals: Met w pt mother, father, sister at length 10/11 for follow-up visit. Patient sister appears to have a reasonable understanding of conditions, prognosis. Patient mother appears to have a very simple understanding of conditions and prognosis, but denying the possibility of . Father also seems to have a very simple understanding of conditions and prognosis. Goals remain aggressive. Condition today has deteriorated and is extremely critical however if he survives, they would likely proceed with tracheostomy and PEG if needed. Patient's mother is hoping for a miracle and wants to continue whatever measures available to help patient recover. They are open to ongoing to conversations as clinical course evolves. Happy with the nursing staff today. * CODE STATUS: full * SYMPTOMS: --dyspnea- [facility] for [facility]. [facility]; sedated, no tachypnea observed or reported while on sedative- when lightened agitation/tachypnea / failed Precedex, restarting fentanyl and propofol. -- agitation- hx substance abuse; hx ADD, on adderall. currently sedated with diprivan, fentanyl, agitation/tachycardia when sedation lightened; nursing titrating fentanyl as needed per critical care -- encephalopathy- multifactorial-- +sepsis, embolic CVA, hx substance abuse , EEG neg seizure -- constipation - no BM recorded since admission 10/01, has scheduled colace, d/w community health nursing director prn senna 10/05-->> BM 10/08. On docusate daily and senna when necessary. Would recommend changing senna to scheduled. Palliative care will continue to follow during hospital course as condition evolves, to assist patient/decision-maker with understanding of medical conditions, weighing benefits/burdens of treatment options, for clarification of goals of treatment. Additionally will assist with any symptoms of palliative concern. Time Spent Face to Face Time (mins): 30 Attestation To help prompt me to consider important information that might be impacting today's encounter and assessment, information from prior notes written by myself or my colleagues may have been "brought forward" into today's note. My signature on this note, however, is an attestation that I personally performed the exam, history, and/or decision-making noted today, and, unless otherwise indicated, the interactions with patient, family, and staff as well as the review of records all occurred today. I also attest that the listed assessment and stated plan reflect my best clinical judgment today based on the combination of historical information, prior notes, and today's exam/ interactions. When time spent is documented, it refers only to time spent today by the signer, or if indicated, combined time spent today by collaborating physician/nurse practitioner. Thu Sexton Oct 11, 2016 11:42 am
[2016-10-11 11:44] LABS: HEMO FLAGS AUTO DIFF
[2016-10-11] MEDS: PROPOFOL 1000 MG/100 ML INJ 100 ML IV SCH ×3 (11:51→22:00)
[2016-10-11 12:48] LABS: BANDS 10 % (0-6); NEUTROPHIL # MANUAL DIFF 31.2 TH/MM3 (1.8-7.7); POLYS (SEG NEUTROPHILS) 79 % (16-70); WBC DIFF SAMPLE 100
[2016-10-11 12:49] LABS: OVALOCYTES 1+ (NORMAL); PLATELET ESTIMATE SMEAR NORMAL (NORMAL); PLATELET MORPHOLOGY NORMAL (NORMAL); SCAN/DIFF FINAL DIFF MANUAL
[2016-10-11] MEDS: ACETAMINOPHEN 325 MG TAB PO PRN ×2 (17:01→22:34)
[2016-10-11] MEDS: MELATONIN 5 MG TAB PO SCH (22:00)
[2016-10-11] MEDS: METOPROLOL TARTRATE 5 MG/5 ML VIAL IV PUSH SCH (22:28)
[2016-10-12] VITALS (17 sets, daily range): BP systolic 107–158; BP diastolic 45–67; PULSE 89–125; RESP 17–20; TEMP 98.9–100.4; O2SAT 92–100
[2016-10-12] MEDS: PROPOFOL 1000 MG/100 ML INJ 100 ML IV SCH ×4 (00:15→23:03)
[2016-10-12] MEDS: OXACILLIN INJ 2 GM in SODIUM CHLORIDE 0.9% INJ 100 ML IV SCH ×6 (00:15→20:35)
[2016-10-12] MEDS: RESP: ALBUTEROL 2.5 MG/IPRATROPIUM 0.5 MG NEB (SCH) INH (02:56)
[2016-10-12] MEDS: CHLORHEXIDINE GLUCONATE 2 % 1 PACK (2 CLOTHS) TOP SCH (04:00)
[2016-10-12] MEDS: GENTAMICIN INJ 70 MG in SODIUM CHLORIDE 0.9% INJ 100 ML IV SCH ×2 (04:05→11:14)
[2016-10-12] MEDS: METOPROLOL TARTRATE 5 MG/5 ML VIAL IV PUSH SCH (04:23)
[2016-10-12 04:47] LABS: BICARBONATE 27.8 MEQ/L (21.0-32.0); POTASSIUM 3.7 MEQ/L (3.5-5.1)
[2016-10-12 05:05] LABS: AUTOMATED NEUTROPHIL # 17.5 TH/MM3 (1.8-7.7); BASOPHIL # 0.1 TH/MM3 (0-0.2); BASOPHIL % 0.3 % (0.0-2.0); EOSINOPHIL # 0.2 TH/MM3 (0-0.4); EOSINOPHIL % 0.8 % (0.0-4.0); HEMATOCRIT 23.5 % (39.0-51.0); HEMO FLAGS DIFF FINAL; LYMPH % 7.9 % (9.0-44.0); LYMPHOCYTE # 1.6 TH/MM3 (1.0-4.8); MEAN CELL VOLUME 86.3 FL (80.0-100.0); MEAN CORPUSCULAR HEMOGLOBIN 29.2 PG (27.0-34.0); MEAN CORPUSCULAR HGB CONC 33.8 % (32.0-36.0); MONO % 3.1 % (0.0-8.0); NEUT % 87.9 % (16.0-70.0); PLATELET COUNT 371 TH/MM3 (150-450); RED BLOOD COUNT 2.73 MIL/MM3 (4.50-5.90); RED CELL DISTRIBUTION WIDTH 14.6 % (11.6-17.2); WHITE BLOOD COUNT 19.9 TH/MM3 (4.0-11.0)
[2016-10-12] MEDS: 3% SALINE INJ 250 ML IV SCH ×3 (05:25→11:14)
[2016-10-12] MEDS: QUEtiapine FUMARATE 100 MG TAB PO SCH ×3 (05:26→20:36)
[2016-10-12] MEDS: MIDAZOLAM 100 MG/NS 100 ML DRIP Premix IV SCH (05:26)
[2016-10-12] MEDS: INSULIN NovoLIN REGULAR SUPPLEMENTAL SCALE SQ SCH ×4 (06:00→18:00)
[2016-10-12] MEDS: CHLORHEXIDINE 0.12% (ORAL KIT) 15 ML CUP MT SCH ×2 (07:51→20:36)
[2016-10-12] MEDS: ARTIFICIAL TEARS OPTH SOLN 15 ML BTL EACH EYE SCH ×3 (07:51→18:00)
[2016-10-12] MEDS: PANTOPRAZOLE SODIUM 40 MG VIAL IV SCH (07:51)
[2016-10-12] MEDS: DOCUSATE SODIUM 100 MG/10 ML UDC G-TUBE SCH ×2 (07:51→20:35)
[2016-10-12] MEDS: SODIUM CHLORIDE 0.9% FLUSH 10 ML FLUSH IV FLUSH SCH ×2 (07:52→20:36)
--- NOTE | 2016-10-12 08:13 | HHI.CCPN ---
Subjective Remarks/Hospital Course Hospital Course: This is a 26yM who presents to the ED for altered mental status. On arrival, the patient was obtunded and emergently intubated. His roommate is with him and cannot provide much medical history. The remainder of the history is per EMS and ER documentation and my discussion with the ER physician. Per EMS and ED reports, patient was seen approximately 10 days prior to admission by an unknown physician in the clinic and given antibiotic for fever. After taking the antibiotic, the patient had a new red rash on his hands and healing on his feet. He he was seen in the emergency department 2 days prior to admission for low-grade fever and congestion, generalized weakness, lightheadedness. At that time she was given prescription for prednisone 40 mg daily for 5 days. The patient's landlord apparently found the patient today with altered mental status and called EMS. When EMS arrived, his GCS was 10. There is reports that the patient has a history of substance abuse and was recently in rehabilitation. I did talk to the roommate who confirms that the patient had recently gotten out of rehabilitation and was living with him. The remainder does say that he does not think the patient has been taking any illicit substances recently. In the emergency department, the patient was hypotensive, tachycardic. His head CT is significant for significant areas of infarction in the right frontal , temporal, and cerebellar regions as well as a small area of subarachnoid hemorrhage in the superior right parietal region. Patient has early 3 mm of midline shift as well as effacement on the right. Patient's laboratory data is significant for white blood cell count of 19,000, hemoglobin of 9.9, lactate of 3.7, creatinine 1.69, CK 372, troponin of 11.9. His urine drug screen is positive for opiates and amphetamines. I performed a bedside critical care ultrasound which demonstrated hyperdynamic left ventricular function and what appears to be aortic valve vegetations and I measured to be proximally 0.9 x 8.8 cm. This is associated with what appears to be severe aortic regurgitation. There is no pericardial effusion. Right ventricular function is preserved. A formal echo has been ordered to confirm these findings. Critical care medicine has been consulted to evaluate and manage his shock, altered mental status, multiple areas of infarction, and subarachnoid hemorrhage. Subjective: 10/01: seen and examined around 06:30am. patient on norepinephrine at 6 mcg/min , persistently in shock. patient localizes to pain x 4 extremities. repeat interval head CT with 4mm midline shift. echo with significant aortic valve vegetations and moderate aortic insufficiency. 10/02: now following commands intermittently on the RUE, still localizing in LUE , BLE. off vasopressors this morning. cultures growing staph, sensitivities to follow. 10/03: tachycardic overnight. off vasopressors this morning. not following commands this morning. still persistently febrile and wbc uptrended to 20k. 10/04: still encephalopathic. EEG negative for seizure activity. received 1 trial dose of oxacillin yesterday without evidence of allergic reaction. will let ID guide this therapy, but safe from a critical care standpoint to pursue oxacillin therapy. cultures persistently positive and wbc uptrending. still febrile. 10/05: persistent encephalopathy. but now briskly purposeful x 4. now on oxacillin. discussed with ID, and will plan to start gent induction. wbc downtrending today. still febrile. will continue surveilance cultures q48h until 2 sets negative. 10/06: neuro exam unchanged. still purposeful. blood cultures negative x 24h. will re-draw today. still persists on 1mcg/min levophed, though this has also slightly improved from yesterday. 10/07: neuro exam stable. very agitated, not following commands. blood cultures negative x 48h. off levophed. 10/08: neuro exam stable. CT with increased midline shift and persistent edema, particularly right side. back on levophed. febrile. wbc stable. 10/09: sodium not at goal, likely due to normal renal function. follows commands in the RUE, which is new. spontaneously moves BLE, LUE. wbc downtrending. hgb 7 this AM, but no other signs of end-organ damage from low o2 delivery. 10/10 failed to SBT today due to rapid shallow breathing also tachycardia. Patient found to have a significant anemia below 7 will transfuse and reattempt SBT later today 10/11: Flash pulmonary edema today requiring sedation protocol and vent manipulations. Hypoxemia to 70s. 10/12: Some improvement in gas exchange after heavy sedation and relaxant. Objective Vital Signs Date Time Temp Pulse Resp B/P Pulse Ox O2 Delivery O2 Flow Rate FiO2 10/12/16 06:00 119 10/12/16 04:05 96 70 10/12/16 04:00 99.1 17 142/67 Intake and Output 10/11/16 10/11/16 10/12/16 08:00 16:00 00:00 Intake Total 1588 ml 1311 ml 1413 ml Output Total 900 ml 750 ml 1050 ml Balance 688 ml 561 ml 363 ml Result Diagram: 10/12/16 0415 10/12/16 0415 Imaging Last Impressions Head CT 09/30/16 850 Signed Impressions: Service Date/Time: Friday, September 30, 2016 16:31 - CONCLUSION: Noncontrast CT findings of concern for multiple intra-axial masses. There is small acute subarachnoid blood present and about 3 mm of leftward midline shift. MRI of the brain with and without contrast recommended. Michael Frietas MD Chest X-Ray 09/30/[id number] Signed Impressions: Service Date/Time: Friday, September 30, 2016 15:23 - CONCLUSION: No acute cardiopulmonary disease demonstrated. Appropriate endotracheal tube tip position. Nasogastric tube courses into the stomach, tip not included on the study. Michael Freitas MD Objective Remarks GENERAL: Young male, lying in bed, intubated, sedated, critically ill HEENT: Pupils 3 mm, equal, sluggishly reactive. Mucous membranes moist. NECK: No JVD. Trachea midline. Orotracheally intubated CHEST: Equal chest rise. Clear to auscultation. CARDIOVASCULAR: Tachycardic rate, regular rhythm. II/ systolic and diastolic murmur. ABDOMEN: Soft, nontender, nondistended. No guarding. MUSCULOSKELETAL: rash on feet has improved. No peripheral edema. Distal pulses 2+. NEUROLOGICAL: RASS -2. Severely agitated and not following commands when sedation lightened. Tolerance to analgesics and sedatives is very high. 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 Still critically ill and with ongoing encephalopathy. evidence of worsening cerebral edema, particularly right temporal area. despite 3% NaCl, sodium not at goal. will add single dose of 23% nacl and intermittent 3% boluses on top of increased 3% drip. will attempt to avoid mannitol given gentamicin induction therapy and to support renal perfusion. neuro exam stable. continue to follow cultures. We will continue with supportive care. Remains very critically ill at this time. If we do not have significant improvements, will need to consider trach. Plan by systems: Neurologic: Multiple acute septic CVAs Cerebral edema Small subarachnoid hemorrhage Midline shift, 4 mm Metabolic encephalopathy Agitated Delirium- slightly improved. Neurosurgery consulted, Dr. Michelle q1h neuro checks --prop/fent for goal RASS -2. --avoid long-acting sedating meds --EEG 10/01- negative for seizures -- seroquel 100mg q8hr. -- melatonin to assist with sleep/wake cycles -- delirium and agitation persists, though slightly improved today. -- interval head CT in AM to re-assess edema. -- 250cc 3% bolus q6h to help maintain sodium goal 145 - 155 while edema persists -- 60mL 23% nacl x 1 -- increased 3% drip to 40 cc/hr - sodium 147 today, will continue - Precedex trial with a goal to wean off propofol and attempt SBT Respiratory: Acute hypoxic and hypercarbic respiratory failure Vent bundle Head of bed 30 Avoid hypercarbia and hypoxia daily SBTs. Wean FiO2 for goal SPO2 greater than 92% Cardiovascular: Aortic valve endocarditis Moderate aortic insufficiency Cardiogenic shock- resolved. Septic shock- resolving. Arterial line, central line for invasive central pressure monitoring --trend CVP. Abx as described below 2d echo 10/01: aortic valve vegetations, moderate AI. remains on levophed 8mcg/min today. continue to wean as tolerated for map > 65. Renal: Acute kidney injury- resolved. Jerez for accurate I's and O's -- Strict I/Os FEN/GI: Hypermagnesemia Lactic acidosis- resolved. Severe metabolic acidosis- resolved. Acute protein calorie malnutritionmild Elevated LFTs jevity 1.5, nutrition consult. OG tube to suction Daily BMP Heme/ID: Anemia, likely secondary to hemolysis from valvulopathy Infective endocarditis Septic shock- resolving. 10/01 blood cultures: MSSA --10/01 sputum culture: MSSA --10/02 blood cultures: MSSA --10/03 blood cultures: MSSA --10/04 bl cx: MSSA --10/05 bl cx: NGTD --10/06 bl cx: NGTD vancomycin, flagyl d/c 10/02. --oxacillin started 10/02 --gentamicin induction therapy per ID. started 10/05 Infectious disease following: Dontfraid Endocrine: Hyperglycemia of critical illness -- SSI, every 6 hours, medium scale TSH 0.16, free T4 1.07, T3 < 0.5: likely sick euthyroid. Prophylaxis: GI Prophylaxis Protonix IV DVT Prophylaxis -- SCDs Holding pharmacologic DVT prophylaxis in the setting of cerebral hemorrhage Lines: 09/30 radial arterial line --09/30 left SC TLC --Jerez Dispo: Remain in the ICU. He remains critically ill. Unable to wean from ventilator. This patient remains critically ill with one or more organ systems which are or may become a threat to life. I have spent in excess of 30 minutes discontinuously in the care and management of this patient. This time is exclusive of procedures, and includes, but is not limited to, evaluation of the patient, review of the medical record, discussions with family, consultants, nursing staff, or respiratory therapy, and documentation in the medical record. Robert Cartagena MD Oct 12, 2016 08:13
[2016-10-12] MEDS: METOPROLOL TARTRATE 25 MG TAB PO SCH ×2 (10:05→20:36)
[2016-10-12] MEDS: fentaNYL DRIP 250 ML IV SCH ×2 (11:51→23:03)
--- NOTE | 2016-10-12 12:02 | HHI.HCPN ---
Reason for visit a. To assist with evaluation and management of symptoms including:dyspnea, encephalopathy, agitation, constipation b. To assist medical decision maker(s) with: better understanding of current medical conditions; weighing benefits/burdens of medical treatment options; making medical treatment decisions. Subjective/Interval History Patient seen today due to follow-up on comfort, update a family as patient had significant decline yesterday. + Pulmonary edema yesterday, difficulty ventilating patient due to agitation, required Nimbex as well as multiple sedatives. Was at one point requiring 100% FiO2 maintaining sats in the 80s. Condition has since improved. Now tolerating 60% FiO2. On multiple sedatives no longer on paralytic. Mild hypotension requiring Levophed. Today plan is to minimize stimulation, maintain patient. WBC initially elevated to 35, today down to 19.9. Last 2 blood cultures 10/05, 10/06 have been negative 5 days. Remains on antibiotics per ID. Palliative yesterday met with patient mother, father, sister separately. There was some indication from the mother that she may wish to recent decision-making role, possibly making the sister legal decision maker. Patient seen today in room with sister Anay at bedside. Patient is sedated currently on Versed 3 mg an hour, fentanyl 200 mics an hour, propofol 30 mics per kilogram per minute, as well as Levophed 3 mics per minute. I did not aggressively stimulate for exam due to issues with agitation. He appears to be breathing comfortably on mechanical vent, eyes are closed. He does blink and seemed to respond to any light touch stimuli. Spoke with sister Anay at bedside, indicates his mother is struggling, it is very hard to watch Slim in such critical condition, so she briefly visits but does not stay in the room for most of the day. Anay has been keeping her updated as needed. In an emergency which neither mother nor father were available or able to make decisions Anay would agree to do so but at this point mother will still be acting as primary decision maker. Anay will remain closely involved with decision-making, and supporting patient mother. I'm available if mother arrives later and has any questions, nursing or Anay to call me if needed. Advance Directives Living Will: Never completed Health Care Surrogate: Never completed Durable Power of Clinical Physician Assistant: Completed, but not made available (mother reports has POA, not clear if this includes medical decision making, awaiting copies of documents) Objective Vital Signs Date Time Temp Pulse Resp B/P Pulse Ox O2 Delivery O2 Flow Rate FiO2 10/12/16 11:44 98 50 10/12/16 10:00 103 10/12/16 08:11 99 60 10/12/16 08:00 70 10/12/16 08:00 110 10/12/16 08:00 99.0 110 19 136/52 100 10/12/16 06:00 119 10/12/16 04:05 96 70 10/12/16 04:00 99.1 117 17 142/67 98 10/12/16 04:00 117 10/12/16 04:00 70 10/12/16 02:00 100 10/12/16 00:00 80 10/12/16 00:00 112 10/12/16 00:00 100.4 112 20 120/45 100 10/11/16 22:00 124 10/11/16 20:25 94 80 10/11/16 20:00 100.3 132 22 152/52 99 10/11/16 20:00 80 10/11/16 20:00 117 10/11/16 18:00 123 10/11/16 16:00 115 10/11/16 16:00 100 10/11/16 16:00 99.3 115 20 166/76 97 10/11/16 15:45 98 80 10/11/16 14:00 109 10/11/16 12:00 98.4 98 20 114/52 94 10/11/16 12:00 98 10/11/16 12:00 100 10/11/16 11:51 95 100 Intake & Output 10/12/16 10/12/16 07:00 19:00 Intake Total 2469 ml Output Total 1350 ml Balance 1119 ml Intake IV Total 1616 ml Tube Feeding 703 ml Other 150 ml Output Urine Total 1350 ml # Bowel Movements 0 Physical Exam CONSTITUTIONAL/GENERAL: This is an adequately nourished patient, sedated, arouses with agitation to stimulation on mechanical vent TUBES/LINES/DRAINS: Lt SC central line. ETT, OGT, carrera catheter SKIN: No jaundice, or lesions. + slight resolving peeling bottom feet/Embolic purpuric lesions on LT great toe. peeling bilateral palms of hands. Skin warm CARDIOVASCULAR: Tachycardic rate and regular rhythm without murmur. Peripheral pulses symmetric, no peripheral edema RESPIRATORY/CHEST: Symmetric, unlabored respirations on mech vent. Coarse air movement throughout lungs, breath sounds equal bilat GASTROINTESTINAL: Abdomen soft, nondistended. No palpable masses. No guarding. Bowel sounds present. TF infusing via OGT. GENITOURINARY: Without palpable bladder distension. Carrera catheter in place clear dark yellow urine. NEUROLOGICAL: sedated on mech vent.(Fentanyl, Diprivan) slight eye opening if stimulated, becomes agitated with suctioning. Comments with increase in sedation. Does appear to localize to touch to feet, right upper extremity. No response noted at left upper extremity. PSYCHIATRIC: -- limited assess due to condition/sedation. . Diagnostic Tests Laboratory Laboratory Tests Test 10/09/16 10/09/16 10/10/16 10/10/16 18:15 23:12 06:00 12:00 Sodium Level 146 MEQ/L 147 MEQ/L 147 MEQ/L 144 MEQ/L (136-145) (136-145) (136-145) (136-145) White Blood Count 18.7 TH/MM3 (4.0-11.0) Red Blood Count 2.26 MIL/MM3 (4.50-5.90) Hemoglobin 6.5 GM/DL (13.0-17.0) Hematocrit 20.0 % (39.0-51.0) Mean Corpuscular Volume 88.4 FL (80.0-100.0) Mean Corpuscular Hemoglobin 28.7 PG (27.0-34.0) Mean Corpuscular Hemoglobin 32.4 % Concent (32.0-36.0) Red Cell Distribution Width 14.1 % (11.6-17.2) Platelet Count 347 TH/MM3 (150-450) Mean Platelet Volume 8.0 FL (7.0-11.0) Potassium Level 4.0 MEQ/L (3.5-5.1) Chloride Level 112 MEQ/L (98-107) Carbon Dioxide Level 29.7 MEQ/L (21.0-32.0) Anion Gap 5 MEQ/L (5-15) Blood Urea Nitrogen 13 MG/DL (7-18) Creatinine 0.60 MG/DL (0.60-1.30) Estimat Glomerular Filtration 163 ML/MIN Rate (>89) Random Glucose 140 MG/DL (74-106) Calcium Level 8.2 MG/DL (8.5-10.1) Test 10/10/16 10/10/16 10/10/16 10/11/16 12:20 13:46 17:49 04:16 Blood Type O NEGATIVE O NEGATIVE Antibody Screen NEGATIVE Crossmatch Leukocyte-Reduced Red Blood Cells Blood Bank Comment Sodium Level 146 MEQ/L (136-145) Blood Gas Puncture Site SHAWN Blood Gas Patient Temperature 98.6 Blood Gas HCO3 26 mmol/L (22-26) Blood Gas Base Excess 2.2 mmol/L (-2-2) Blood Gas Oxygen Saturation 97 % (90-100) Arterial Blood pH 7.43 (7.380-7.420) Arterial Blood Partial 40 mmHg (38-42) Pressure CO2 Arterial Blood Partial 155 mmHg Pressure O2 (61-120) Arterial Blood Oxygen Content 20.5 Vol % (12.0-20.0) Arterial Blood 0.6 % (0-4) Carboxyhemoglobin Arterial Blood Methemoglobin 0.9 % (0-2) Blood Gas Hemoglobin 14.8 G/DL (12.0-16.0) Oxygen Delivery Device VENTILATOR Blood Gas Ventilator Setting SEE COMMENT Blood Gas Inspired Oxygen 90 % Test 10/11/16 10/11/16 10/12/16 04:30 11:15 04:15 White Blood Count 18.1 TH/MM3 35.0 TH/MM3 19.9 TH/MM3 (4.0-11.0) (4.0-11.0) (4.0-11.0) Red Blood Count 2.76 MIL/MM3 3.05 MIL/MM3 2.73 MIL/MM3 (4.50-5.90) (4.50-5.90) (4.50-5.90) Hemoglobin 7.9 GM/DL 8.9 GM/DL 8.0 GM/DL (13.0-17.0) (13.0-17.0) (13.0-17.0) Hematocrit 23.8 % 26.3 % 23.5 % (39.0-51.0) (39.0-51.0) (39.0-51.0) Mean Corpuscular Volume 86.3 FL 86.1 FL 86.3 FL (80.0-100.0) (80.0-100.0) (80.0-100.0) Mean Corpuscular Hemoglobin 28.7 PG 29.3 PG 29.2 PG (27.0-34.0) (27.0-34.0) (27.0-34.0) Mean Corpuscular Hemoglobin 33.3 % 34.0 % 33.8 % Concent (32.0-36.0) (32.0-36.0) (32.0-36.0) Red Cell Distribution Width 14.4 % 14.8 % 14.6 % (11.6-17.2) (11.6-17.2) (11.6-17.2) Platelet Count 317 TH/MM3 419 TH/MM3 371 TH/MM3 (150-450) (150-450) (150-450) Mean Platelet Volume 8.0 FL 7.8 FL 8.2 FL (7.0-11.0) (7.0-11.0) (7.0-11.0) Neutrophils (%) (Auto) 88.4 % 94.1 % 87.9 % (16.0-70.0) (16.0-70.0) (16.0-70.0) Lymphocytes (%) (Auto) 7.2 % 2.8 % 7.9 % (9.0-44.0) (9.0-44.0) (9.0-44.0) Monocytes (%) (Auto) 3.3 % (0.0-8.0) 2.8 % (0.0-8.0) 3.1 % (0.0-8.0) Eosinophils (%) (Auto) 0.6 % (0.0-4.0) 0.2 % (0.0-4.0) 0.8 % (0.0-4.0) Basophils (%) (Auto) 0.5 % (0.0-2.0) 0.1 % (0.0-2.0) 0.3 % (0.0-2.0) Neutrophils # (Auto) 16.0 TH/MM3 33.0 TH/MM3 17.5 TH/MM3 (1.8-7.7) (1.8-7.7) (1.8-7.7) Lymphocytes # (Auto) 1.3 TH/MM3 1.0 TH/MM3 1.6 TH/MM3 (1.0-4.8) (1.0-4.8) (1.0-4.8) Monocytes # (Auto) 0.6 TH/MM3 1.0 TH/MM3 0.6 TH/MM3 (0-0.9) (0-0.9) (0-0.9) Eosinophils # (Auto) 0.1 TH/MM3 0.1 TH/MM3 0.2 TH/MM3 (0-0.4) (0-0.4) (0-0.4) Basophils # (Auto) 0.1 TH/MM3 0.0 TH/MM3 0.1 TH/MM3 (0-0.2) (0-0.2) (0-0.2) CBC Comment DIFF FINAL AUTO DIFF DIFF FINAL Differential Comment FINAL DIFF MANUAL Sodium Level 146 MEQ/L 146 MEQ/L (136-145) (136-145) Potassium Level 3.9 MEQ/L 3.7 MEQ/L (3.5-5.1) (3.5-5.1) Chloride Level 112 MEQ/L 110 MEQ/L (98-107) (98-107) Carbon Dioxide Level 28.2 MEQ/L 27.8 MEQ/L (21.0-32.0) (21.0-32.0) Anion Gap 6 MEQ/L (5-15) 8 MEQ/L (5-15) Blood Urea Nitrogen 14 MG/DL (7-18) 17 MG/DL (7-18) Creatinine 0.60 MG/DL 0.61 MG/DL (0.60-1.30) (0.60-1.30) Estimat Glomerular Filtration 163 ML/MIN 160 ML/MIN Rate (>89) (>89) Random Glucose 131 MG/DL 118 MG/DL (74-106) (74-106) Calcium Level 8.4 MG/DL 8.1 MG/DL (8.5-10.1) (8.5-10.1) Phosphorus Level 3.6 MG/DL (2.5-4.9) Magnesium Level 2.2 MG/DL (1.5-2.5) Total Bilirubin 0.3 MG/DL (0.2-1.0) Aspartate Amino Transf 22 U/L (15-37) (AST/SGOT) Alanine Aminotransferase 23 U/L (12-78) (ALT/SGPT) Alkaline Phosphatase 84 U/L (45-117) Total Protein 6.8 GM/DL (6.4-8.2) Albumin 1.6 GM/DL (3.4-5.0) Differential Total Cells 100 Counted Neutrophils % (Manual) 79 % (16-70) Band Neutrophils % 10 % (0-6) Lymphocytes % 7 % (9-44) Monocytes % 4 % (0-8) Neutrophils # (Manual) 31.2 TH/MM3 (1.8-7.7) Platelet Estimate NORMAL (NORMAL) Platelet Morphology Comment NORMAL (NORMAL) Ovalocytes 1+ (NORMAL) Result Diagram: 10/12/16 0415 10/12/16 0415 Imaging Last Impressions Chest X-Ray 10/11/16 0000 Signed Impressions: Service Date/Time: October 01:19 - CONCLUSION: Fairly symmetric diffuse bilateral pleuroparenchymal opacities Michael Choe MD Head CT 10/08/16 0600 Signed Impressions: Service Date/Time: Saturday, October 08, 2016 05:31 - CONCLUSION: Increasing mass effect mainly associated with the right temporal process Michael Choe MD Brain MRI 09/30/16 1659 Signed Impressions: Service Date/Time: Friday, September 30, 2016 17:42 - CONCLUSION: Numerous bilateral cerebral and cerebellar acute or subacute infarcts that are most likely embolic. Please see above. No mass or evidence of abscess. 4 mm of leftward midline shift. Small subarachnoid blood. Michael Freitas MD Renal Ultrasound 09/30/16 0000 Signed Impressions: Service Date/Time: Friday, September 30, 2016 18:45 - CONCLUSION: Ultrasound appearance of the kidneys within normal limits. Carrera catheter in the urinary bladder. Nonspecific splenomegaly incidentally noted. Michael Freitas MD Head Magnetic Resonance Angiography 09/30/16 0000 Signed Impressions: Service Date/Time: Friday, September 30, 2016 17:42 - CONCLUSION: No occlusion, aneurysm or other acute intracranial vascular abnormality demonstrated. Michael Freitas MD Procedures 09/30left subclavian central line, left radial arterial line Assessment and Plan Disease Oriented Problem List: (1) Intracranial hemorrhage (2) Sepsis (3) Elevated troponin (4) Subarachnoid hemorrhage (5) Cerebral edema (6) Metabolic encephalopathy (7) Acute respiratory failure with hypoxia (8) Septic shock due to Staphylococcus aureus (9) Rash and nonspecific skin eruption (10) Substance abuse Symptom Scale: (1) Dyspnea 0-10 Scale: Unable to quantify (2) Encephalopathy 0-10 Scale: Unable to quantify (3) Agitation 0-10 Scale: Unable to quantify (4) Constipation 0-10 Scale: Unable to quantify Pertinent Non-Medical Issues Psychosocial:originally from [place], lived in [place] since . HS education. Was incarcerated and then in drug rehabilitation in [facility]. 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 Father (parents ) lived in [place] with support from family there. Supported by local friends, coworkers, apartment landlord. Spiritual:believes in God, no particular affiliation. would want ongoing transmission and protection engineer support. Legal: Patient is not able to participate in decision-making due to clinical condition. He is not . Per [place] statutes his parents would be legal decision makers, mother is serving as primary supported by his sister and father. She reports she has POA paperwork. Ethical issues impacting care: Important Contacts mother Felicita Roberts [phone] ([facility]) sister Elizabeth Rios [phone] father Pradeep Rios [phone] . 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 He is currently in multiorgan failure, critically ill. Possible he can recover with prolonged resuscitation , prolonged ICU course. Remains very high risk for further complications and setbacks though possible he can survive this initial injury/ illness. Code Status: Full Code Plan * Legal decision maker: Patient is not able to participate in decision-making due to clinical condition. He is not . Per [place] statutes his parents would be legal decision makers, mother is serving as primary supported by his sister and father. She reports she has POA paperwork. (palliative SW reviewed and indicates that it does not include medical decision-making) * Goals: Ongoing meetings with patient family. Patient sister appears to have a reasonable understanding of conditions, prognosis. Patient mother appears to have a very simple understanding of conditions and prognosis. Father also seems to have a very simple understanding of conditions and prognosis. Goals remain aggressive. Family has expressed they would likely proceed with tracheostomy and PEG if needed. Patient's mother is hoping for a miracle and wants to continue whatever measures available to help patient recover. They are open to ongoing to conversations as clinical course evolves. * CODE STATUS: full * SYMPTOMS: --dyspnea- intubated for AMS. remains on mech vent; sedated, no tachypnea observed or reported while on sedative- when lightened agitation/tachypnea ; yesterday was not tolerating Precedex significant agitation and respiratory distress requiring paralytic and additional sedatives. Today breathing comfortably. CXR yesterday=diffuse bilateral pleuroparenchymal opacities -- agitation- hx substance abuse; hx ADD, on adderall. currently sedated with diprivan, fentanyl, agitation/tachycardia when sedation lightened; nursing titrating fentanyl, Versed added, Diprivan as needed per critical care; yesterday was not tolerating Precedex significant agitation and respiratory distress requiring paralytic and additional sedatives. -- encephalopathy- multifactorial-- +sepsis, embolic CVA, hx substance abuse , EEG neg seizure ; unable to tolerate full lightning of sedated at this time due to agitation -- constipation - no BM recorded since admission 10/01, has scheduled colace, d/w geriatric nursing assistant prn senna 10/05-->> BM 10/08, 10/12. On docusate daily and senna when necessary. Would recommend changing senna to scheduled. Palliative care will continue to follow during hospital course as condition evolves, to assist patient/decision-maker with understanding of medical conditions, weighing benefits/burdens of treatment options, for clarification of goals of treatment. Additionally will assist with any symptoms of palliative concern. Attestation To help prompt me to consider important information that might be impacting today's encounter and assessment, information from prior notes written by myself or my colleagues may have been "brought forward" into today's note. My signature on this note, however, is an attestation that I personally performed the exam, history, and/or decision-making noted today, and, unless otherwise indicated, the interactions with patient, family, and staff as well as the review of records all occurred today. I also attest that the listed assessment and stated plan reflect my best clinical judgment today based on the combination of historical information, prior notes, and today's exam/ interactions. When time spent is documented, it refers only to time spent today by the signer, or if indicated, combined time spent today by collaborating physician/nurse practitioner. Sandy Liu Oct 12, 2016 12:02
--- NOTE | 2016-10-12 14:46 | PD.PROCEDR ---
Procedure Note Procedure DX: Severe Sepsis (A41.9) OP: Insertion Right Subclavian Vein Central Line (82112) Procedure: Right chest prepped and draped. Right subclavian vein cannulated and wire easily advanced. Catheter passed over wire to 18 cm. Lumens aspirated and flushed. Dressing applied. CXR ordered. Robert Cartagena MD Oct 12, 2016 14:46
[2016-10-12] MEDS: METOPROLOL TARTRATE 5 MG/5 ML VIAL IV PUSH PRN (15:17)
--- NOTE | 2016-10-12 15:58 | RADRPT ---
EXAM DATE/TIME: 10/12/2016 15:09 [facility] COMPARISON: CHEST SINGLE AP, October 11, 2016, 1:19. INDICATIONS : Central line placement MEDICAL HISTORY : Gastroesophageal reflux disease SURGICAL HISTORY : None. ENCOUNTER: Subsequent ACUITY: 1 day PAIN SCORE: Non-responsive. LOCATION: Bilateral chest FINDINGS: There is increasing interstitial edema in both lungs. ET tube, nasogastric tube, central venous cath eter are in good position. There is pneumothorax. CONCLUSION: Increasing interstitial and alveolar opacity in both lungs. Jair Coello MD FACR on October 12, 2016 at 15:47 Board Certified Radiologist. This report was verified electronically.
--- NOTE | 2016-10-12 16:13 | HHI.IDPN ---
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 Vital Signs Date Time Temp Pulse Resp B/P Pulse Ox O2 Delivery O2 Flow Rate FiO2 10/12/16 14:00 125 10/12/16 12:00 98.9 89 19 107/49 93 10/12/16 12:00 89 10/12/16 12:00 70 10/12/16 11:44 98 50 10/12/16 10:00 103 10/12/16 08:11 99 60 10/12/16 08:00 70 10/12/16 08:00 110 10/12/16 08:00 99.0 110 19 136/52 100 10/12/16 06:00 119 10/12/16 04:05 96 70 10/12/16 04:00 99.1 117 17 142/67 98 10/12/16 04:00 117 10/12/16 04:00 70 10/12/16 02:00 100 10/12/16 00:00 80 10/12/16 00:00 112 10/12/16 00:00 100.4 112 20 120/45 100 10/11/16 22:00 124 10/11/16 20:25 94 80 10/11/16 20:00 100.3 132 22 152/52 99 10/11/16 20:00 80 10/11/16 20:00 117 10/11/16 18:00 123 10/11/16 10/11/16 10/12/16 15:00 23:00 07:00 Intake Total 1311 ml 1413 ml 1056 ml Output Total 750 ml 1050 ml 300 ml Balance 561 ml 363 ml 756 ml Intake IV Total 917 ml 858 ml 758 ml Tube Feeding 294 ml 465 ml 238 ml Tube Irrigant 100 ml Other 90 ml 60 ml Output Urine Total 750 ml 1050 ml 300 ml # Bowel Movements 1 0 0 . Laboratory Tests Test 10/11/16 10/11/16 10/12/16 04:30 11:15 04:15 White Blood Count 18.1 TH/MM3 35.0 TH/MM3 19.9 TH/MM3 Red Blood Count 2.76 MIL/MM3 3.05 MIL/MM3 2.73 MIL/MM3 Hemoglobin 7.9 GM/DL 8.9 GM/DL 8.0 GM/DL Hematocrit 23.8 % 26.3 % 23.5 % Mean Corpuscular Volume 86.3 FL 86.1 FL 86.3 FL Mean Corpuscular Hemoglobin 28.7 PG 29.3 PG 29.2 PG Mean Corpuscular Hemoglobin 33.3 % 34.0 % 33.8 % Concent Red Cell Distribution Width 14.4 % 14.8 % 14.6 % Platelet Count 317 TH/MM3 419 TH/MM3 371 TH/MM3 Mean Platelet Volume 8.0 FL 7.8 FL 8.2 FL Neutrophils (%) (Auto) 88.4 % 94.1 % 87.9 % Lymphocytes (%) (Auto) 7.2 % 2.8 % 7.9 % Monocytes (%) (Auto) 3.3 % 2.8 % 3.1 % Eosinophils (%) (Auto) 0.6 % 0.2 % 0.8 % Basophils (%) (Auto) 0.5 % 0.1 % 0.3 % Neutrophils # (Auto) 16.0 TH/MM3 33.0 TH/MM3 17.5 TH/MM3 Lymphocytes # (Auto) 1.3 TH/MM3 1.0 TH/MM3 1.6 TH/MM3 Monocytes # (Auto) 0.6 TH/MM3 1.0 TH/MM3 0.6 TH/MM3 Eosinophils # (Auto) 0.1 TH/MM3 0.1 TH/MM3 0.2 TH/MM3 Basophils # (Auto) 0.1 TH/MM3 0.0 TH/MM3 0.1 TH/MM3 CBC Comment DIFF FINAL AUTO DIFF DIFF FINAL Differential Comment FINAL DIFF MANUAL Differential Total Cells 100 Counted Neutrophils % (Manual) 79 % Band Neutrophils % 10 % Lymphocytes % 7 % Monocytes % 4 % Neutrophils # (Manual) 31.2 TH/MM3 Platelet Estimate NORMAL Platelet Morphology Comment NORMAL Ovalocytes 1+ Laboratory Tests Test 10/10/16 10/11/16 10/12/16 17:49 04:30 04:15 Sodium Level 146 MEQ/L 146 MEQ/L 146 MEQ/L Potassium Level 3.9 MEQ/L 3.7 MEQ/L Chloride Level 112 MEQ/L 110 MEQ/L Carbon Dioxide Level 28.2 MEQ/L 27.8 MEQ/L Anion Gap 6 MEQ/L 8 MEQ/L Blood Urea Nitrogen 14 MG/DL 17 MG/DL Creatinine 0.60 MG/DL 0.61 MG/DL Estimat Glomerular Filtration 163 ML/MIN 160 ML/MIN Rate Random Glucose 131 MG/DL 118 MG/DL Calcium Level 8.4 MG/DL 8.1 MG/DL Phosphorus Level 3.6 MG/DL Magnesium Level 2.2 MG/DL Total Bilirubin 0.3 MG/DL Aspartate Amino Transf 22 U/L (AST/SGOT) Alanine Aminotransferase 23 U/L (ALT/SGPT) Alkaline Phosphatase 84 U/L Total Protein 6.8 GM/DL Albumin 1.6 GM/DL Imaging Last Impressions Chest X-Ray 10/11/16 0000 Signed Impressions: Service Date/Time: October 01:19 - CONCLUSION: Fairly symmetric diffuse bilateral pleuroparenchymal opacities Michael Choe MD Head CT 10/08/16 0600 Signed Impressions: Service Date/Time: Saturday, October 08, 2016 05:31 - CONCLUSION: Increasing mass effect mainly associated with the right temporal process Michael Choe MD Brain MRI 09/30/16 1659 Signed Impressions: Service Date/Time: Friday, September 30, 2016 17:42 - CONCLUSION: Numerous bilateral cerebral and cerebellar acute or subacute infarcts that are most likely embolic. Please see above. No mass or evidence of abscess. 4 mm of leftward midline shift. Small subarachnoid blood. Michael Freitas MD Renal Ultrasound 09/30/16 0000 Signed Impressions: Service Date/Time: Friday, September 30, 2016 18:45 - CONCLUSION: Ultrasound appearance of the kidneys within normal limits. Carrera catheter in the urinary bladder. Nonspecific splenomegaly incidentally noted. Michael Freitas MD Head Magnetic Resonance Angiography 09/30/16 0000 Signed Impressions: Service Date/Time: Friday, September 30, 2016 17:42 - CONCLUSION: No occlusion, aneurysm or other acute intracranial vascular abnormality demonstrated. Michael Freitas MD Physical Exam GENERAL: Patient is sedated. On vent. HEENT: No icterus. Oropharynx: Orally intubated NECK: No palpable adenopathy. No swelling. LUNGS: Basilar rhonchi. HEART: 2/6 systolic murmur at the left sternal border. No rubs or gallops. ABDOMEN: Bowel sounds are present, soft, flat, nontender. EXTREMITIES: No clubbing or cyanosis or edema. Embolic purpuric lesions at the plantar aspect of the 4th and 5th toe on the left and the great toe on the right and several pinpoint purpuric lesions at the base of the foot beyond the toe plantar aspect resolving. SKIN: Faded rash at the feet dorsum almost resolved. There is peeled skin at the plantar aspect of both feet which is dried. Resolved erythema at the arms. There is no erythema at the chest, trunk, neck or face. The lower extremities have no edema. Peeling hands, feet : carrera in place with clear yellow urine NEURO: Unable to assess. PSYCH: unable to assess. Assessment & Plan Remarks IMPRESSION 1. Septic shock due to Staph aureus. 2. Acute endocarditis. [place] aortic valve. Staph aureus. - finally cleared bacteremia 3. Acute respiratory failure. - sp flush pulm edema 4. Bilateral lung infiltrates, probably secondary to septic emboli./ PNA Staph aureus. 5. 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 6. History of IV drug abuse. Unknown current use status. 7. Antibiotic allergies. The patient reportedly is allergic to penicillin and sulfa. Confirmed with his mom who reported to me that he has been able to tolerate Amoxicillin. 8. Recent drug rash. It is not clear what antibiotic the patient received prior to development of the rash and this is yet to be definitively confirmed. 9 New fever RECOMMENDATIONS: 1. Continue Oxacillin 2 grams Q 4 hours. 2. dc Gentamycin 3. Monitor temps. 4. Monitor clinical status. 5. fu repeat blood clx filemon RN filemon Gibbons covering 6-4 Lesly Donald MD Oct 12, 2016 16:12
[2016-10-12] MEDS: MELATONIN 5 MG TAB PO SCH (20:36)
[2016-10-13] VITALS (18 sets, daily range): BP systolic 128–164; BP diastolic 54–85; PULSE 89–132; RESP 19–24; TEMP 98.4–100.1; O2SAT 94–100
[2016-10-13] MEDS: OXACILLIN INJ 2 GM in SODIUM CHLORIDE 0.9% INJ 100 ML IV SCH ×7 (00:09→22:03)
[2016-10-13] MEDS: METOPROLOL TARTRATE 5 MG/5 ML VIAL IV PUSH PRN (00:09)
[2016-10-13] MEDS: ACETAMINOPHEN 325 MG TAB PO PRN ×2 (00:09→08:01)
[2016-10-13 03:12] LABS: AUTOMATED NEUTROPHIL # 13.1 TH/MM3 (1.8-7.7); BASOPHIL # 0.1 TH/MM3 (0-0.2); BASOPHIL % 0.6 % (0.0-2.0); EOSINOPHIL # 0.1 TH/MM3 (0-0.4); EOSINOPHIL % 0.9 % (0.0-4.0); HEMO FLAGS DIFF FINAL; LYMPH % 8.5 % (9.0-44.0); LYMPHOCYTE # 1.3 TH/MM3 (1.0-4.8); MEAN CELL VOLUME 87.2 FL (80.0-100.0); MEAN CORPUSCULAR HGB CONC 33.3 % (32.0-36.0); MONO % 4.1 % (0.0-8.0); NEUT % 85.9 % (16.0-70.0); PLATELET COUNT 308 TH/MM3 (150-450); RED BLOOD COUNT 2.52 MIL/MM3 (4.50-5.90); RED CELL DISTRIBUTION WIDTH 14.7 % (11.6-17.2); WHITE BLOOD COUNT 15.3 TH/MM3 (4.0-11.0)
[2016-10-13 03:30] LABS: BICARBONATE 29.7 MEQ/L (21.0-32.0); POTASSIUM 3.6 MEQ/L (3.5-5.1)
[2016-10-13] MEDS: PROPOFOL 1000 MG/100 ML INJ 100 ML IV SCH ×2 (03:37→20:09)
[2016-10-13] MEDS: CHLORHEXIDINE GLUCONATE 2 % 1 PACK (2 CLOTHS) TOP SCH (04:00)
[2016-10-13 05:20] LABS: CALCIUM-PROTEIN CORRECTED 8.5 MG/DL (8.5-10.1)
[2016-10-13] MEDS: QUEtiapine FUMARATE 100 MG TAB PO SCH ×3 (05:53→20:10)
[2016-10-13] MEDS: MIDAZOLAM 100 MG/NS 100 ML DRIP Premix IV SCH (05:54)
[2016-10-13] MEDS: INSULIN NovoLIN REGULAR SUPPLEMENTAL SCALE SQ SCH ×5 (06:00→22:02)
[2016-10-13] MEDS: NOREPINEPHRINE INJ 4 MG in SODIUM CHLOR 0.9% 250 ML INJ 250 ML IV SCH (07:28)
[2016-10-13] MEDS: ARTIFICIAL TEARS OPTH SOLN 15 ML BTL EACH EYE SCH ×3 (08:00→18:00)
[2016-10-13] MEDS: CHLORHEXIDINE 0.12% (ORAL KIT) 15 ML CUP MT SCH ×2 (08:00→20:10)
[2016-10-13] MEDS: DOCUSATE SODIUM 100 MG/10 ML UDC G-TUBE SCH ×2 (08:00→20:09)
[2016-10-13] MEDS: SODIUM CHLORIDE 0.9% FLUSH 10 ML FLUSH IV FLUSH SCH ×2 (08:01→20:10)
[2016-10-13] MEDS: PANTOPRAZOLE SODIUM 40 MG VIAL IV SCH (08:01)
[2016-10-13] MEDS: METOPROLOL TARTRATE 25 MG TAB PO SCH ×2 (08:01→20:09)
--- NOTE | 2016-10-13 09:43 | HHI.CCPN ---
Subjective Remarks/Hospital Course Hospital Course: This is a 26yM who presents to the ED for altered mental status. On arrival, the patient was obtunded and emergently intubated. His roommate is with him and cannot provide much medical history. The remainder of the history is per EMS and ER documentation and my discussion with the ER physician. Per EMS and ED reports, patient was seen approximately 10 days prior to admission by an unknown physician in the clinic and given antibiotic for fever. After taking the antibiotic, the patient had a new red rash on his hands and healing on his feet. He he was seen in the emergency department 2 days prior to admission for low-grade fever and congestion, generalized weakness, lightheadedness. At that time she was given prescription for prednisone 40 mg daily for 5 days. The patient's landlord apparently found the patient today with altered mental status and called EMS. When EMS arrived, his GCS was 10. There is reports that the patient has a history of substance abuse and was recently in rehabilitation. I did talk to the roommate who confirms that the patient had recently gotten out of rehabilitation and was living with him. The remainder does say that he does not think the patient has been taking any illicit substances recently. In the emergency department, the patient was hypotensive, tachycardic. His head CT is significant for significant areas of infarction in the right frontal , temporal, and cerebellar regions as well as a small area of subarachnoid hemorrhage in the superior right parietal region. Patient has early 3 mm of midline shift as well as effacement on the right. Patient's laboratory data is significant for white blood cell count of 19,000, hemoglobin of 9.9, lactate of 3.7, creatinine 1.69, CK 372, troponin of 11.9. His urine drug screen is positive for opiates and amphetamines. I performed a bedside critical care ultrasound which demonstrated hyperdynamic left ventricular function and what appears to be aortic valve vegetations and I measured to be proximally 0.9 x 8.8 cm. This is associated with what appears to be severe aortic regurgitation. There is no pericardial effusion. Right ventricular function is preserved. A formal echo has been ordered to confirm these findings. Critical care medicine has been consulted to evaluate and manage his shock, altered mental status, multiple areas of infarction, and subarachnoid hemorrhage. Subjective: 10/01: seen and examined around 06:30am. patient on norepinephrine at 6 mcg/min , persistently in shock. patient localizes to pain x 4 extremities. repeat interval head CT with 4mm midline shift. echo with significant aortic valve vegetations and moderate aortic insufficiency. 10/02: now following commands intermittently on the RUE, still localizing in LUE , BLE. off vasopressors this morning. cultures growing staph, sensitivities to follow. 10/03: tachycardic overnight. off vasopressors this morning. not following commands this morning. still persistently febrile and wbc uptrended to 20k. 10/04: still encephalopathic. EEG negative for seizure activity. received 1 trial dose of oxacillin yesterday without evidence of allergic reaction. will let ID guide this therapy, but safe from a critical care standpoint to pursue oxacillin therapy. cultures persistently positive and wbc uptrending. still febrile. 10/05: persistent encephalopathy. but now briskly purposeful x 4. now on oxacillin. discussed with ID, and will plan to start gent induction. wbc downtrending today. still febrile. will continue surveilance cultures q48h until 2 sets negative. 10/06: neuro exam unchanged. still purposeful. blood cultures negative x 24h. will re-draw today. still persists on 1mcg/min levophed, though this has also slightly improved from yesterday. 10/07: neuro exam stable. very agitated, not following commands. blood cultures negative x 48h. off levophed. 10/08: neuro exam stable. CT with increased midline shift and persistent edema, particularly right side. back on levophed. febrile. wbc stable. 10/09: sodium not at goal, likely due to normal renal function. follows commands in the RUE, which is new. spontaneously moves BLE, LUE. wbc downtrending. hgb 7 this AM, but no other signs of end-organ damage from low o2 delivery. 10/10 failed to SBT today due to rapid shallow breathing also tachycardia. Patient found to have a significant anemia below 7 will transfuse and reattempt SBT later today 10/11: Flash pulmonary edema today requiring sedation protocol and vent manipulations. Hypoxemia to 70s. 10/12: Some improvement in gas exchange after heavy sedation and relaxant. 10/13: Tmax 100.3, requiring high dose sedation. Objective Vital Signs Date Time Temp Pulse Resp B/P Pulse Ox O2 Delivery O2 Flow Rate FiO2 10/13/16 08:00 80 10/13/16 08:00 100.1 132 20 145/85 98 Intake and Output 10/12/16 10/12/16 10/13/16 08:00 16:00 00:00 Intake Total 1056 ml 1303 ml 1054 ml Output Total 300 ml 750 ml 750 ml Balance 756 ml 553 ml 304 ml Result Diagram: 10/13/16 0300 10/13/16 0300 Imaging Last Impressions Head CT [id number]/30/161452 Signed Impressions: Service Date/Time: Friday, September 30, 2016 16:31 - CONCLUSION: Noncontrast CT findings of concern for multiple intra-axial masses. There is small acute subarachnoid blood present and about 3 mm of leftward midline shift. MRI of the brain with and without contrast recommended. Michael Freitas MD Chest X-Ray 09/30/[id number] Signed Impressions: Service Date/Time: Friday, September 30, 2016 15:23 - CONCLUSION: No acute cardiopulmonary disease demonstrated. Appropriate endotracheal tube tip position. Nasogastric tube courses into the stomach, tip not included on the study. Michael Freitas MD Objective Remarks GENERAL: Young male, lying in bed, intubated, sedated, critically ill HEENT: Pupils 3 mm, equal, sluggishly reactive. Mucous membranes moist. NECK: No JVD. Trachea midline. Orotracheally intubated CHEST: Equal chest rise. Clear to auscultation. CARDIOVASCULAR: Tachycardic rate, regular rhythm. II/ systolic and diastolic murmur. ABDOMEN: Soft, nontender, nondistended. No guarding. MUSCULOSKELETAL: rash on feet has improved. No peripheral edema. Distal pulses 2+. NEUROLOGICAL: RASS -2. Severely agitated and not following commands when sedation lightened. Tolerance to analgesics and sedatives is very high. 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 Still critically ill and with ongoing encephalopathy. evidence of worsening cerebral edema, particularly right temporal area. despite 3% NaCl, sodium not at goal. will add single dose of 23% nacl and intermittent 3% boluses on top of increased 3% drip. will attempt to avoid mannitol given gentamicin induction therapy and to support renal perfusion. neuro exam stable. continue to follow cultures. We will continue with supportive care. Remains very critically ill at this time. If we do not have significant improvements, will need to consider trach. Plan by systems: Neurologic: Multiple acute septic CVAs Cerebral edema Small subarachnoid hemorrhage Midline shift, 4 mm Metabolic encephalopathy Agitated Delirium- slightly improved. Neurosurgery consulted, Dr. Michelle q1h neuro checks --prop/fent for goal RASS -2. --avoid long-acting sedating meds --EEG 10/01- negative for seizures -- seroquel 100mg q8hr. -- melatonin to assist with sleep/wake cycles -- delirium and agitation persists, though slightly improved today. -- interval head CT in AM to re-assess edema. -- 250cc 3% bolus q6h to help maintain sodium goal 145 - 155 while edema persists -- 60mL 23% nacl x 1 -- increased 3% drip to 40 cc/hr - sodium 147 today, will continue - Precedex trial with a goal to wean off propofol and attempt SBT Respiratory: Acute hypoxic and hypercarbic respiratory failure Vent bundle Head of bed 30 Avoid hypercarbia and hypoxia daily SBTs. Wean FiO2 for goal SPO2 greater than 92% Cardiovascular: Aortic valve endocarditis Moderate aortic insufficiency Cardiogenic shock- resolved. Septic shock- resolving. Arterial line, central line for invasive central pressure monitoring --trend CVP. Abx as described below 2d echo 10/01: aortic valve vegetations, moderate AI. remains on levophed 8mcg/min today. continue to wean as tolerated for map > 65. Renal: Acute kidney injury- resolved. [place] for accurate I's and O's -- Strict I/Os FEN/GI: Hypermagnesemia Lactic acidosis- resolved. Severe metabolic acidosis- resolved. Acute protein calorie malnutritionmild Elevated LFTs jevity 1.5, nutrition consult. OG tube to suction Daily BMP Heme/ID: Anemia, likely secondary to hemolysis from valvulopathy Infective endocarditis Septic shock- resolving. 10/01 blood cultures: MSSA --10/01 sputum culture: MSSA --10/02 blood cultures: MSSA --10/03 blood cultures: MSSA --10/04 bl cx: MSSA --10/05 bl cx: NGTD --10/06 bl cx: NGTD vancomycin, flagyl d/c 10/02. --oxacillin started 10/02 --gentamicin induction therapy per ID. started 10/05, d/c'd Infectious disease following: Dontfraid Endocrine: Hyperglycemia of critical illness -- SSI, every 6 hours, medium scale TSH 0.16, free T4 1.07, T3 < 0.5: likely sick euthyroid. Prophylaxis: GI Prophylaxis Protonix IV DVT Prophylaxis -- SCDs Holding pharmacologic DVT prophylaxis in the setting of cerebral hemorrhage Lines: 09/30 radial arterial line --09/30 left SC TLC d/c. New right SCV CVL placed 10/12. --Jerez Dispo: Remain in the ICU. He remains critically ill. Unable to wean from ventilator. This patient remains critically ill with one or more organ systems which are or may become a threat to life. I have spent in excess of 30 minutes discontinuously in the care and management of this patient. This time is exclusive of procedures, and includes, but is not limited to, evaluation of the patient, review of the medical record, discussions with family, consultants, nursing staff, or respiratory therapy, and documentation in the medical record. Robert Cartagena MD Oct 13, 2016 09:43
[2016-10-13] MEDS: FUROSEMIDE 20 MG/2 ML VIAL IV PUSH SCH (11:00)
[2016-10-13] MEDS: fentaNYL DRIP 250 ML IV SCH ×2 (11:39→20:09)
[2016-10-13] MEDS: MELATONIN 5 MG TAB PO SCH (20:09)
[2016-10-14] VITALS (16 sets, daily range): BP systolic 97–140; BP diastolic 34–55; PULSE 96–120; RESP 15–19; TEMP 98.4–100.1; O2SAT 94–100
[2016-10-14] MEDS: OXACILLIN INJ 2 GM in SODIUM CHLORIDE 0.9% INJ 100 ML IV SCH ×6 (00:59→21:07)
[2016-10-14] MEDS: CHLORHEXIDINE GLUCONATE 2 % 1 PACK (2 CLOTHS) TOP SCH (04:00)
[2016-10-14] MEDS: RESP: ALBUTEROL 2.5 MG/3 ML NEB (PRN) INH ×2 (04:10→19:48)
[2016-10-14] MEDS: PROPOFOL 1000 MG/100 ML INJ 100 ML IV SCH ×6 (04:29→21:06)
[2016-10-14] MEDS: QUEtiapine FUMARATE 100 MG TAB PO SCH ×3 (04:30→20:14)
[2016-10-14] MEDS: INSULIN NovoLIN REGULAR SUPPLEMENTAL SCALE SQ SCH ×2 (06:00→11:43)
[2016-10-14 06:22] LABS: AUTOMATED NEUTROPHIL # 11.1 TH/MM3 (1.8-7.7); BASOPHIL # 0.1 TH/MM3 (0-0.2); EOSINOPHIL # 0.1 TH/MM3 (0-0.4); EOSINOPHIL % 1.1 % (0.0-4.0); HEMATOCRIT 22.9 % (39.0-51.0); HEMO FLAGS DIFF FINAL; LYMPH % 8.6 % (9.0-44.0); LYMPHOCYTE # 1.1 TH/MM3 (1.0-4.8); MEAN CELL VOLUME 85.9 FL (80.0-100.0); MEAN CORPUSCULAR HEMOGLOBIN 29.3 PG (27.0-34.0); MEAN CORPUSCULAR HGB CONC 34.1 % (32.0-36.0); MONO % 2.8 % (0.0-8.0); NEUT % 86.5 % (16.0-70.0); PLATELET COUNT 348 TH/MM3 (150-450); RED BLOOD COUNT 2.67 MIL/MM3 (4.50-5.90); RED CELL DISTRIBUTION WIDTH 14.6 % (11.6-17.2); WHITE BLOOD COUNT 12.8 TH/MM3 (4.0-11.0)
[2016-10-14 06:44] LABS: BICARBONATE 29.4 MEQ/L (21.0-32.0); POTASSIUM 3.6 MEQ/L (3.5-5.1)
[2016-10-14] MEDS: METOPROLOL TARTRATE 25 MG TAB PO SCH ×2 (07:55→20:14)
[2016-10-14] MEDS: FUROSEMIDE 20 MG/2 ML VIAL IV PUSH SCH (08:19)
[2016-10-14] MEDS: PANTOPRAZOLE SODIUM 40 MG VIAL IV SCH (08:19)
[2016-10-14] MEDS: DOCUSATE SODIUM 100 MG/10 ML UDC G-TUBE SCH ×2 (08:19→19:46)
[2016-10-14] MEDS: SODIUM CHLORIDE 0.9% FLUSH 10 ML FLUSH IV FLUSH SCH ×2 (08:19→19:47)
[2016-10-14] MEDS: CHLORHEXIDINE 0.12% (ORAL KIT) 15 ML CUP MT SCH ×2 (08:19→19:47)
[2016-10-14] MEDS: ARTIFICIAL TEARS OPTH SOLN 15 ML BTL EACH EYE SCH ×3 (08:20→18:47)
[2016-10-14] MEDS: fentaNYL DRIP 250 ML IV SCH ×2 (08:42→19:46)
[2016-10-14] MEDS: MIDAZOLAM 100 MG/NS 100 ML DRIP Premix IV SCH (08:42)
[2016-10-14] MEDS ORDERED: MAGNESIUM OXIDE 400 MG TAB PO PRN (10:30)
[2016-10-14] MEDS ORDERED: POTASSIUM CHLORIDE 25 MEQ EFFERVESCENT TAB PO PRN (10:30)
[2016-10-14] MEDS ORDERED: MAGNESIUM SULFATE INJ 4 GM in SODIUM CHLORIDE 0.9% INJ 92 ML IV PRN (10:30)
[2016-10-14] MEDS ORDERED: SODIUM PHOSPHATE INJ 30 MMOL in SODIUM CHLOR 0.9% 250 ML INJ 240 ML IV PRN (10:30)
[2016-10-14] MEDS ORDERED: POTASSIUM PHOSPHATE MONOBASIC 500 MG TAB PO PRN (10:30)
[2016-10-14] MEDS ORDERED: POTASSIUM CHLOR 20 MEQ PREMIX 100 ML IV PRN (10:30)
[2016-10-14] MEDS ORDERED: POTASSIUM PHOSPHATE INJ 30 MMOL in SODIUM CHLOR 0.9% 250 ML INJ 250 ML IV PRN (10:30)
[2016-10-14] MEDS ORDERED: POTASSIUM PHOSPHATE MONOBASIC 500 MG TAB PO/TUBE PRN (10:30)
[2016-10-14] MEDS ORDERED: MAGNESIUM SULFATE INJ 2 GM in SODIUM CHLORIDE 0.9% INJ 96 ML IV PRN (10:30)
--- NOTE | 2016-10-14 10:33 | HHI.CCPN ---
Subjective Remarks/Hospital Course Hospital Course: This is a 26yM who presents to the ED for altered mental status. On arrival, the patient was obtunded and emergently intubated. His roommate is with him and cannot provide much medical history. The remainder of the history is per EMS and ER documentation and my discussion with the ER physician. Per EMS and ED reports, patient was seen approximately 10 days prior to admission by an unknown physician in the clinic and given antibiotic for fever. After taking the antibiotic, the patient had a new red rash on his hands and healing on his feet. He he was seen in the emergency department 2 days prior to admission for low-grade fever and congestion, generalized weakness, lightheadedness. At that time she was given prescription for prednisone 40 mg daily for 5 days. The patient's landlord apparently found the patient today with altered mental status and called EMS. When EMS arrived, his GCS was 10. There is reports that the patient has a history of substance abuse and was recently in rehabilitation. I did talk to the roommate who confirms that the patient had recently gotten out of rehabilitation and was living with him. The remainder does say that he does not think the patient has been taking any illicit substances recently. In the emergency department, the patient was hypotensive, tachycardic. His head CT is significant for significant areas of infarction in the right frontal , temporal, and cerebellar regions as well as a small area of subarachnoid hemorrhage in the superior right parietal region. Patient has early 3 mm of midline shift as well as effacement on the right. Patient's laboratory data is significant for white blood cell count of 19,000, hemoglobin of 9.9, lactate of 3.7, creatinine 1.69, CK 372, troponin of 11.9. His urine drug screen is positive for opiates and amphetamines. I performed a bedside critical care ultrasound which demonstrated hyperdynamic left ventricular function and what appears to be aortic valve vegetations and I measured to be proximally 0.9 x 8.8 cm. This is associated with what appears to be severe aortic regurgitation. There is no pericardial effusion. Right ventricular function is preserved. A formal echo has been ordered to confirm these findings. Critical care medicine has been consulted to evaluate and manage his shock, altered mental status, multiple areas of infarction, and subarachnoid hemorrhage. Subjective: 10/01: seen and examined around 06:30am. patient on norepinephrine at 6 mcg/min , persistently in shock. patient localizes to pain x 4 extremities. repeat interval head CT with 4mm midline shift. echo with significant aortic valve vegetations and moderate aortic insufficiency. 10/02: now following commands intermittently on the RUE, still localizing in LUE , BLE. off vasopressors this morning. cultures growing staph, sensitivities to follow. 10/03: tachycardic overnight. off vasopressors this morning. not following commands this morning. still persistently febrile and wbc uptrended to 20k. 10/04: still encephalopathic. EEG negative for seizure activity. received 1 trial dose of oxacillin yesterday without evidence of allergic reaction. will let ID guide this therapy, but safe from a critical care standpoint to pursue oxacillin therapy. cultures persistently positive and wbc uptrending. still febrile. 10/05: persistent encephalopathy. but now briskly purposeful x 4. now on oxacillin. discussed with ID, and will plan to start gent induction. wbc downtrending today. still febrile. will continue surveilance cultures q48h until 2 sets negative. 10/06: neuro exam unchanged. still purposeful. blood cultures negative x 24h. will re-draw today. still persists on 1mcg/min levophed, though this has also slightly improved from yesterday. 10/07: neuro exam stable. very agitated, not following commands. blood cultures negative x 48h. off levophed. 10/08: neuro exam stable. CT with increased midline shift and persistent edema, particularly right side. back on levophed. febrile. wbc stable. 10/09: sodium not at goal, likely due to normal renal function. follows commands in the RUE, which is new. spontaneously moves BLE, LUE. wbc downtrending. hgb 7 this AM, but no other signs of end-organ damage from low o2 delivery. 10/10 failed to SBT today due to rapid shallow breathing also tachycardia. Patient found to have a significant anemia below 7 will transfuse and reattempt SBT later today 10/11: Flash pulmonary edema today requiring sedation protocol and vent manipulations. Hypoxemia to 70s. 10/12: Some improvement in gas exchange after heavy sedation and relaxant. 10/13: Tmax 100.3, requiring high dose sedation. 10/14: Leukocytosis resolving. Still way ahead on free water - increase diuretics. Prealbumin 17, adjust TFs accordingly. Objective Vital Signs Date Time Temp Pulse Resp B/P Pulse Ox O2 Delivery O2 Flow Rate FiO2 10/14/16 07:25 95 50 10/14/16 06:00 104 10/14/16 04:00 99.2 18 114/50 Intake and Output 10/13/16 10/13/16 10/14/16 08:00 16:00 00:00 Intake Total 1037 ml 1214 ml 930 ml Output Total 450 ml 2050 ml 550 ml Balance 587 ml -836 ml 380 ml Result Diagram: 10/14/1660410/14/16604 Imaging Last Impressions Head CT 09/30/161452 Signed Impressions: Service Date/Time: Friday, September 30, 2016 16:31 - CONCLUSION: Noncontrast CT findings of concern for multiple intra-axial masses. There is small acute subarachnoid blood present and about 3 mm of leftward midline shift. MRI of the brain with and without contrast recommended. Michael Freitas MD Chest X-Ray 09/30/16 5480 Signed Impressions: Service Date/Time: Friday, September 30, 2016 15:23 - CONCLUSION: No acute cardiopulmonary disease demonstrated. Appropriate endotracheal tube tip position. Nasogastric tube courses into the stomach, tip not included on the study. Michael Freitas MD Objective Remarks GENERAL: Young male, lying in bed, intubated, sedated, critically ill HEENT: Pupils 3 mm, equal, sluggishly reactive. Mucous membranes moist. NECK: No JVD. Trachea midline. Orotracheally intubated CHEST: Equal chest rise. Diffuse crackles. CARDIOVASCULAR: Tachycardic rate, regular rhythm. + JVD. ABDOMEN: Soft, nontender, nondistended. No guarding. MUSCULOSKELETAL: rash on feet has improved. No peripheral edema. Distal pulses 2+. NEUROLOGICAL: RASS -3. Severely agitated and not following commands when sedation lightened. Tolerance to analgesics and sedatives is very high. 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 Still critically ill and with ongoing encephalopathy. evidence of worsening cerebral edema, particularly right temporal area. despite 3% NaCl, sodium not at goal. will add single dose of 23% nacl and intermittent 3% boluses on top of increased 3% drip. will attempt to avoid mannitol given gentamicin induction therapy and to support renal perfusion. neuro exam stable. continue to follow cultures. We will continue with supportive care. Remains very critically ill at this time. If we do not have significant improvements, will need to consider trach. Plan by systems: Neurologic: Multiple acute septic CVAs Cerebral edema Small subarachnoid hemorrhage Midline shift, 4 mm Metabolic encephalopathy Agitated Delirium- slightly improved. Neurosurgery consulted, Dr. Michelle q1h neuro checks --prop/fent for goal RASS -2. --avoid long-acting sedating meds --EEG 10/01- negative for seizures -- seroquel 100mg q8hr. -- melatonin to assist with sleep/wake cycles -- delirium and agitation persists, though slightly improved today. -- interval head CT in AM to re-assess edema. -- 250cc 3% bolus q6h to help maintain sodium goal 145 - 155 while edema persists -- 60mL 23% nacl x 1 -- increased 3% drip to 40 cc/hr - sodium 147 today, will continue - Precedex trial was a catastrophic failure - he was absolutely wild and put himself in pulmonary edema. Respiratory: Acute hypoxic and hypercarbic respiratory failure Vent bundle Head of bed 30 Avoid hypercarbia and hypoxia daily SBTs. Wean FiO2 for goal SPO2 greater than 92% Cardiovascular: Aortic valve endocarditis Moderate aortic insufficiency Cardiogenic shock- resolved. Septic shock- resolving. Arterial line, central line for invasive central pressure monitoring --trend CVP. Abx as described below 2d echo 10/01: aortic valve vegetations, moderate AI. remains on levophed today. continue to wean as tolerated for map > 65. Renal: Acute kidney injury- resolved. Jerez for accurate I's and O's -- Strict I/Os FEN/GI: Hypermagnesemia Lactic acidosis- resolved. Severe metabolic acidosis- resolved. Acute protein calorie malnutritionmild Elevated LFTs jevity 1.5, nutrition consult. OG tube to suction Daily BMP Heme/ID: Anemia, likely secondary to hemolysis from valvulopathy Infective endocarditis Septic shock- resolving. 10/01 blood cultures: MSSA --10/01 sputum culture: MSSA --10/02 blood cultures: MSSA --10/03 blood cultures: MSSA --10/04 bl cx: MSSA --10/05 bl cx: NGTD --10/06 bl cx: NGTD vancomycin, flagyl d/c 10/02. --oxacillin started 10/02 --gentamicin induction therapy per ID. started 10/05, d/c'd Infectious disease following: Dontfraid Endocrine: Hyperglycemia of critical illness -- SSI, every 6 hours, medium scale TSH 0.16, free T4 1.07, T3 < 0.5: likely sick euthyroid. Prophylaxis: GI Prophylaxis Protonix IV DVT Prophylaxis -- SCDs Holding pharmacologic DVT prophylaxis in the setting of cerebral hemorrhage Lines: 09/30 radial arterial line --09/30 left SC TLC d/c. New right SCV CVL placed 10/12. --Solitario Overall impression: He remains critically ill. Unable to wean from ventilator. Pulmonary edema persists. This patient remains critically ill with one or more organ systems which are or may become a threat to life. I have spent in excess of 30 minutes discontinuously in the care and management of this patient. This time is exclusive of procedures, and includes, but is not limited to, evaluation of the patient, review of the medical record, discussions with family, consultants, nursing staff, or respiratory therapy, and documentation in the medical record. Robert Cartagena MD Oct 14, 2016 10:33
[2016-10-14] MEDS: FUROSEMIDE 40 MG/4 ML VIAL IV PUSH SCH ×2 (11:46→21:06)
[2016-10-14] MEDS: BENEPROTEIN POWDER 1 PACK G-TUBE SCH ×2 (13:00→18:00)
[2016-10-14] MEDS: MELATONIN 5 MG TAB PO SCH (19:46)
[2016-10-14] MEDS: NOREPINEPHRINE INJ 4 MG in SODIUM CHLOR 0.9% 250 ML INJ 250 ML IV SCH (19:47)
[2016-10-15] VITALS (18 sets, daily range): BP systolic 122–137; BP diastolic 48–60; PULSE 84–111; RESP 14–18; TEMP 98.5–99.8; O2SAT 96–100
[2016-10-15] MEDS: PROPOFOL 1000 MG/100 ML INJ 100 ML IV SCH ×4 (01:10→23:10)
[2016-10-15] MEDS: OXACILLIN INJ 2 GM in SODIUM CHLORIDE 0.9% INJ 100 ML IV SCH ×6 (01:10→23:10)
[2016-10-15] MEDS: CHLORHEXIDINE GLUCONATE 2 % 1 PACK (2 CLOTHS) TOP SCH (04:00)
[2016-10-15] MEDS: QUEtiapine FUMARATE 100 MG TAB PO SCH ×2 (04:21→14:00)
[2016-10-15] MEDS: CHLORHEXIDINE 0.12% (ORAL KIT) 15 ML CUP MT SCH ×2 (08:00→20:05)
[2016-10-15] MEDS: DOCUSATE SODIUM 100 MG/10 ML UDC G-TUBE SCH ×2 (08:00→20:05)
[2016-10-15] MEDS: ARTIFICIAL TEARS OPTH SOLN 15 ML BTL EACH EYE SCH ×3 (08:38→17:08)
[2016-10-15] MEDS: PANTOPRAZOLE SODIUM 40 MG VIAL IV SCH (08:39)
[2016-10-15] MEDS: SODIUM CHLORIDE 0.9% FLUSH 10 ML FLUSH IV FLUSH SCH ×2 (08:39→20:07)
[2016-10-15] MEDS: METOPROLOL TARTRATE 25 MG TAB PO SCH ×2 (08:39→20:05)
[2016-10-15] MEDS: BENEPROTEIN POWDER 1 PACK G-TUBE SCH ×3 (08:39→17:08)
--- NOTE | 2016-10-15 10:10 | HHI.NSPN ---
History Chief Complaint: Intubated & sedated Interval History 26 male with history of multiple septic cerebral emboli, significant cerebral edema with multiple areas of infarction. Exam Results Vital Signs Date Time Temp Pulse Resp B/P Pulse Ox O2 Delivery O2 Flow Rate FiO2 10/15/16 08:24 97 40 10/15/16 08:00 99.4 98 14 136/51 Intake and Output 10/14/16 10/14/16 10/15/16 08:00 16:00 00:00 Intake Total 1222 ml 1126 ml 1286 ml Output Total 500 ml 3400 ml 1900 ml Balance 722 ml -2274 ml -614 ml Physical Examination GENERAL: Sedated & intubated, HEENT: No facial edema or ecchymosis CHEST: Clear, remains on ventilator CARDIOVASCULAR: Regular heart rhythm ABDOMEN: Abdomen soft, nondistended. MUSCULOSKELETAL: No movement of extremities, no evident deformity or clubbing. INTEGUMENTARY: tip of the right great toe with evolving necrotic area. NEUROLOGICAL: Sedated & intubated Does not follow commands No eye opening to voice or deep pain Pupils 3 mm minimally reactive. Disconjugate gaze with left preference. He is not following any commands, no reponse to noxious stimuli. Unable to assess for sensory deficit due to mental status Medical Decision Making Impression and Plan Impression: 1. Patient remains with severe neurologic deficit. Most recent CT scan of 10/08 revealed mild increase in right hemisphere edema and mass effect. Plan: Discussed with family in the intensive surgical care unit stay. Recheck CT scan head today. Continuing posterior checks. Continue to keep sodium 145-155 range Pino Michelle MD Oct 15, 2016 10:10
[2016-10-15] MEDS: FUROSEMIDE 40 MG/4 ML VIAL IV PUSH SCH ×2 (10:35→23:10)
--- NOTE | 2016-10-15 11:06 | HHI.IDPN ---
Note Infectious Disease Note Notes reviewed. Patient is on the vent. 40% FIO2. No response for me. BP stable. Sedated. Noted to be agitated when sedation is weaned. Low grade temps. WBC decreasing. Sputum has staph aureus. Blood cultures 09/30 Staph aureus in 5 of 6 bottles. Blood culture 10/02 positive. staph aureus. Blood culture 10/03 positive. staph aureus. Blood culture 10/04 positive. staph aureus. Blood culture 10/05 negative. Blood culture 10/06 negative. Patient was brought to the emergency department with altered mental status. Was evaluated for rash at preceding ED evaluation 2 days prior. PAST MEDICAL HISTORY 1. Substance abuse. The patient was in rehabilitation 1 year ago. 2. ADHD. 3. Degenerative disk disease. ALLERGIES Reportedly the patient is allergic to SULFA, PENICILLIN, TORADOL, CODEINE. ANTIBIOTICS: Oxacillin. OBJECTIVE: Vital Signs Date Time Temp Pulse Resp B/P Pulse Ox O2 Delivery O2 Flow Rate FiO2 10/15/16 10:00 99 10/15/16 08:24 97 40 10/15/16 08:00 99.4 98 14 136/51 100 10/15/16 08:00 50 10/15/16 08:00 104 10/15/16 06:00 104 10/15/16 04:25 99 45 10/15/16 04:00 99.6 91 14 137/49 100 10/15/16 04:00 50 10/15/16 04:00 91 10/15/16 02:00 100 10/15/16 00:18 100 50 10/15/16 00:00 104 10/15/16 00:00 50 10/15/16 00:00 99.8 104 16 122/50 100 10/14/16 22:00 114 10/14/16 20:00 50 10/14/16 20:00 100.1 120 18 140/52 100 10/14/16 20:00 120 10/14/16 19:49 100 50 10/14/16 16:00 50 10/14/16 16:00 99.5 99 15 104/55 100 10/14/16 14:57 96 50 10/14/16 13:04 94 50 10/14/16 12:00 99.4 102 17 102/46 94 10/14/16 12:00 50 6/410/14/16 10/15/16 14:59 22:59 06:59 Intake Total 1126 ml 1286 ml 1203 ml Output Total 3400 ml 1900 ml 2800 ml Balance -2274 ml -614 ml -1597 ml Intake IV Total 718 ml 863 ml 794 ml Tube Feeding 408 ml 303 ml 309 ml Tube Irrigant 120 ml 100 ml Output Urine Total 3400 ml 1900 ml 2800 ml # Bowel Movements 0 0 Laboratory Tests Test 10/14/16 06:05 White Blood Count 12.8 TH/MM3 Red Blood Count 2.67 MIL/MM3 Hemoglobin 7.8 GM/DL Hematocrit 22.9 % Mean Corpuscular Volume 85.9 FL Mean Corpuscular Hemoglobin 29.3 PG Mean Corpuscular Hemoglobin 34.1 % Concent Red Cell Distribution Width 14.6 % Platelet Count 348 TH/MM3 Mean Platelet Volume 7.5 FL Neutrophils (%) (Auto) 86.5 % Lymphocytes (%) (Auto) 8.6 % Monocytes (%) (Auto) 2.8 % Eosinophils (%) (Auto) 1.1 % Basophils (%) (Auto) 1.0 % Neutrophils # (Auto) 11.1 TH/MM3 Lymphocytes # (Auto) 1.1 TH/MM3 Monocytes # (Auto) 0.4 TH/MM3 Eosinophils # (Auto) 0.1 TH/MM3 Basophils # (Auto) 0.1 TH/MM3 CBC Comment DIFF FINAL Differential Comment Laboratory Tests Test 10/14/16 06:05 Sodium Level 140 MEQ/L Potassium Level 3.6 MEQ/L Chloride Level 103 MEQ/L Carbon Dioxide Level 29.4 MEQ/L Anion Gap 8 MEQ/L Blood Urea Nitrogen 17 MG/DL Creatinine 0.62 MG/DL Estimat Glomerular Filtration 157 ML/MIN Rate Random Glucose 139 MG/DL Calcium Level 8.0 MG/DL Phosphorus Level 3.9 MG/DL Prealbumin 17 MG/DL IMAGING: Head CT 10/08/16 0600 Signed Impressions: Service Date/Time: Saturday, October 08, 2016 05:31 - CONCLUSION: Increasing mass effect mainly associated with the right temporal process Michael Choe MD Head CT 10/03/16 0945 Signed Impressions: Service Date/Time: Monday, October 03, 2016 09:51 - CONCLUSION: 1. Multiple foci of low attenuation seen within the cerebral and cerebellar hemispheres consistent with evolving infarcts. Mykel A. Pepe, MD Chest X-Ray 10/01/16 0000 Signed Impressions: Service Date/Time: Saturday, October 01, 2016 05:10 - CONCLUSION: Slight worsening bilateral perihilar infiltrates. 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 Please see above. No mass or evidence of abscess. 4 mm of leftward midline shift. Small subarachnoid blood. Michael Freitas MD Renal Ultrasound 09/30/16 0000 Signed Impressions: Service Date/Time: Friday, September 30, 2016 18:45 - CONCLUSION: Ultrasound appearance of the kidneys within normal limits. Jerez catheter in the urinary bladder. Nonspecific splenomegaly incidentally noted. Michael Freitas MD Head Magnetic Resonance Angiography 09/30/16 0000 Signed Impressions: Service Date/Time: Friday, September 30, 2016 17:42 - CONCLUSION: No occlusion, aneurysm or other acute intracranial vascular abnormality demonstrated. Michael Freitas MD PHYSICAL EXAMINATION GENERAL: Sedated. On vent. HEENT: No icterus. Pupils constricted. Oropharynx: dry mucosa. NECK: No adenopathy. No swelling. LUNGS: Basilar rhonchi. HEART: 2/6 systolic murmur at the left sternal border. No rubs or gallops. ABDOMEN: Bowel sounds are present, soft, nontender. EXTREMITIES: No clubbing or cyanosis or edema. Embolic purpuric lesions at the plantar aspect of the 4th and 5th toe on the left and the great toe on the right. SKIN: Resolved rash at the feet dorsum almost resolved. There is peeled skin at the plantar aspect of both feet and hands. NEURO: Unable to assess. PSYCH: unable to assess. IMPRESSION 1. Septic shock due to Staph aureus. Persistent bacteremia. Blood culture now negative. 2. Acute endocarditis. [place] aortic valve. Staph aureus. 3. Acute respiratory failure. 4. Bilateral lung infiltrates, probably secondary to septic emboli./ PNA Staph aureus. 5. 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 6. History of IV drug abuse. Unknown current use status. 7. Antibiotic allergies. 8. Recent drug rash. Medicines in weeks before admission: Clindamycin, Doxycycline, acyclovir, Adderral, Tylenol, prednisone, omeprazole, Ibuprofen. RECOMMENDATIONS: 1. Continue Oxacillin 2 grams Q 4 hours. 2. Monitor temps. 3. Monitor WBC. 4. Monitor clinical status. Nemesio Jackson MD Oct 15, 2016 11:06
[2016-10-15 11:52] LABS: HEMATOCRIT 24.6 % (39.0-51.0); MEAN CELL VOLUME 84.8 FL (80.0-100.0); MEAN CORPUSCULAR HEMOGLOBIN 29.1 PG (27.0-34.0); MEAN CORPUSCULAR HGB CONC 34.4 % (32.0-36.0); PLATELET COUNT 413 TH/MM3 (150-450); RED BLOOD COUNT 2.91 MIL/MM3 (4.50-5.90); RED CELL DISTRIBUTION WIDTH 14.5 % (11.6-17.2); REVIEW FLAG FINAL; WHITE BLOOD COUNT 12.3 TH/MM3 (4.0-11.0)
[2016-10-15 12:21] LABS: POTASSIUM 3.8 MEQ/L (3.5-5.1)
[2016-10-15] MEDS ORDERED: ROCURONIUM INJ 50 MG/5 ML VIAL ONE (12:21)
[2016-10-15] MEDS ORDERED: CISATRACURIUM BESYLATE 200 MG/20 ML VIAL IV ONE (13:00)
--- NOTE | 2016-10-15 13:28 | PD.PROCEDR ---
Procedure Note Procedure Date: 01/31/16 Procedure: Fiberoptic bronchoscopy with bronchoalveolar lavage, diagnostic Indication: Guidance for percutaneous tracheostomy tube placement by Dr. Dominguez Details of procedure: Informed consent was obtained from family after discussion of risks, benefits, alternatives. Patients neck remained in neutral position. The patient was preoxygenated with 100% FiO2 on ACV ventilation via endotracheal tube and sedated with fentanyl drip at 200 g per hour IV, propofol at 110 echograms per kilo per minute and Versed 3mg an hour IV, and Nimbex 10 mg IV. I entered the endotracheal tube with a flexible bronchoscope. The endotracheal tube was withdrawn approximately 17 cm. An introducer needle with angiocatheter was placed in the trachea without any damage to the posterior wall. A size 8 Shiley percutaneous tracheostomy tube was placed. I removed the bronchoscope from the endotracheal tube and inserted it through the new tracheostomy tube and visualized normal tracheal structures. I removed the bronchoscope and the tracheostomy tube was connected to the ventilator circuit. After the tracheostomy tube was sutured in place, I reentered the tracheostomy tube with the bronchoscope. All lung segments were visually inspected and were cleared of any significant blood clots or mucus. Specifically, Bronkhorst is routine from the right upper lobe using 30 cc sterile saline. Copious amounts of thick white mucous plugs removed without complication. At the proceeded to suction after irrigation the right middle, right lower lobes of thick white mucous plugs. The bronchial mucosa was normal without raised lesions or masses. I withdrew the scope the syeda and entered the left mainstem, left upper, lingula and lower lobes. These are sections with copious sterile saline of thick white mucous plugging without complication. The patient tolerated the procedure well without any apparent complications. The bronchoscope was withdrawn. Saturations remained above 92% all times. A stat chest x-ray was ordered. Filiberto Pacheco MD Oct 15, 2016 13:28
--- NOTE | 2016-10-15 14:09 | RADRPT ---
EXAM DATE/TIME: 10/15/2016 13:21 [facility] COMPARISON: CHEST SINGLE AP, October 12, 2016, 15:09. INDICATIONS : Post tracheostomy and NG tube placement. MEDICAL HISTORY : None. SURGICAL HISTORY : None. ENCOUNTER: Subsequent ACUITY: 1 day PAIN SCORE: Non-responsive. LOCATION: Chest FINDINGS: Central line is in the right atrium. Nasogastric tube is across the GE junction. Trach tube is in g ood position. There is no pneumothorax. Moderate coarse interstitial changes seen in both lungs worse on the right than the left. CONCLUSION: Trach is in good position without pneumothorax. Jair Coello MD FACR on October 15, 2016 at 14:01 Board Certified Radiologist. This report was verified electronically.
[2016-10-15 15:13] LABS: BRONCHOALVEOLAR LAVAGE RBC 9000 /MM3; BRONCHOALVEOLAR LAVAGE WBC 5500 /MM3; BRONCHOAVEOLAR LYMPHOCYTES 2 %; BRONCHOAVEOLAR NEUTROPHILS 98 %
--- NOTE | 2016-10-15 15:19 | HHI.HCPN ---
Reason for visit a. To assist with evaluation and management of symptoms including:dyspnea, encephalopathy, agitation, constipation b. To assist medical decision maker(s) with: better understanding of current medical conditions; weighing benefits/burdens of medical treatment options; making medical treatment decisions. Subjective/Interval History Patient seen today to evaluate respiratory status status post episode of pulmonary edema and for family meeting at the request of Dr. Dominguez for family support. Due to his length of stay at 15 days, decision for tracheostomy and PEG placement is now imminent. His pulmonary edema has improved over the weekend. He remains fully sedated, on PRBC/AC ventilatory support, 40% FiO2, PEEP 10. He continues to require hemodynamic support with levophed at 5 mcg/m and sedation of Versed 3 mg an hour, fentanyl 200 g an hour and propofol 50 mcg/kg/ m. His vital signs on that regimen show blood pressure 127/60, heart rate 111, respiratory rate 18, oxygen saturation 100% on 50% FiO2 , MAXIMUM TEMPERATURE 100.1. Laboratory studies show a continually decreasing white blood cell count today at 12.3, hemoglobin 8.5, hematocrit 24.6 platelets 413, sodium 139 potassium 3.8 BUN 16, creatinine 0.62. Cultures initially showed staph aureus in both blood and sputum. Most recent cultures drawn 10/05 and 10/06 remain negative. He remains on oxacillin. ID following. Consultations * Neurosurgery-seen today by Dr. Michelle who does not recommend neurosurgical intervention at this time but recommends a recheck of the CT head scan, continue to keep sodium elevated. * Infectious disease-recommends continuing oxacillin 2 g every 4 hours with monitoring of white blood cells and temperatures. . Family/friend interactions Family meeting to include patient's father Cayden, father's sister Yeny, patient's sister Maggi and mother Felicita, as well as palliative care team members, was held to update on patient's status and explore the possibility of tracheostomy and PEG tube placement. Family continues to pursue aggressive measures. Dr. Dominguez explained that a repeat CT of the head would be done to evaluate for any further strokes and a 2-D echocardiogram was to be obtained to evaluate remaining vegetation on the valve and valve function. Additionally, the procedure for tracheostomy and PEG placement were explained to the family and all questions answered. The family did wish to proceed with trach and PEG placement and scheduling was initiated for that to be done today. Family decision-making was confirmed to be #1 patient's mother Felicita, #2 patient's father Pradeep and #3 patient sister Maggi who will also serve as support for the father and mother. . Advance Directives Living Will: Never completed Health Care Surrogate: Never completed Durable Power of Arcade Game Technician: Completed, but not made available (mother reports has POA, not clear if this includes medical decision making, awaiting copies of documents) Objective Vital Signs Date Time Temp Pulse Resp B/P Pulse Ox O2 Delivery O2 Flow Rate FiO2 10/15/16 14:00 84 10/15/16 12:00 99.1 111 18 127/60 100 10/15/16 12:00 50 10/15/16 12:00 111 10/15/16 11:45 99 40 10/15/16 10:00 99 10/15/16 08:24 97 40 10/15/16 08:00 99.4 98 14 136/51 100 10/15/16 08:00 50 10/15/16 08:00 104 10/15/16 06:00 104 10/15/16 04:25 99 45 10/15/16 04:00 99.6 91 14 137/49 100 10/15/16 04:00 50 10/15/16 04:00 91 10/15/16 02:00 100 10/15/16 00:18 100 50 10/15/16 00:00 104 10/15/16 00:00 50 10/15/16 00:00 99.8 104 16 122/50 100 10/14/16 22:00 114 10/14/16 20:00 50 10/14/16 20:00 100.1 120 18 140/52 100 10/14/16 20:00 120 10/14/16 19:49 100 50 10/14/16 16:00 50 10/14/16 16:00 99.5 99 15 104/55 100 10/14/16 14:57 96 50 Intake & Output 10/15/16 10/15/16 07:00 19:00 Intake Total 2489 ml 1040 ml Output Total 4700 ml 3200 ml Balance -2211 ml -2160 ml Intake IV Total 1657 ml 680 ml Tube Feeding 612 ml 240 ml Tube Irrigant 220 ml 120 ml Output Urine Total 4700 ml 3200 ml # Bowel Movements 0 0 Physical Exam CONSTITUTIONAL/GENERAL: This is an adequately nourished patient, sedated, arouses to stimulation on mechanical vent TUBES/LINES/DRAINS: Rt SC central line. ETT, OGT, carrera catheter SKIN: No jaundice, or lesions. + slight resolving peeling bottom feet/Embolic purpuric lesions on LT great toe. peeling bilateral palms of hands. CARDIOVASCULAR: Tachycardic rate and regular rhythm without murmur. No peripheral edema, 3+ dorsalis pedis pulse and left, Doppler dorsalis pedis pulse on the right with delayed capillary refill. Right foot cool to touch. RESPIRATORY/CHEST: Symmetric, unlabored respirations on mech vent. Coarse air movement throughout lungs, breath sounds equal bilat GASTROINTESTINAL: Abdomen soft, nondistended. No palpable masses. No guarding. Bowel sounds present. TF infusing via OGT. GENITOURINARY: Without palpable bladder distension. Carrera catheter in place clear dark yellow urine. NEUROLOGICAL: sedated on mech vent.(Fentanyl, Versed, Diprivan) slight eye opening if stimulated, becomes agitated with suctioning. Calm with increase in sedation. Does appear to localize to touch to feet, right upper extremity. No response noted at left upper extremity. PSYCHIATRIC: -- limited assess due to condition/sedation. . . Diagnostic Tests Laboratory Laboratory Tests Test 10/13/16 10/14/16 10/15/16 03:00 06:05 11:05 White Blood Count 15.3 TH/MM3 12.8 TH/MM3 12.3 TH/MM3 (4.0-11.0) (4.0-11.0) (4.0-11.0) Red Blood Count 2.52 MIL/MM3 2.67 MIL/MM3 2.91 MIL/MM3 (4.50-5.90) (4.50-5.90) (4.50-5.90) Hemoglobin 7.3 GM/DL 7.8 GM/DL 8.5 GM/DL (13.0-17.0) (13.0-17.0) (13.0-17.0) Hematocrit 22.0 % 22.9 % 24.6 % (39.0-51.0) (39.0-51.0) (39.0-51.0) Mean Corpuscular Volume 87.2 FL 85.9 FL 84.8 FL (80.0-100.0) (80.0-100.0) (80.0-100.0) Mean Corpuscular Hemoglobin 29.0 PG 29.3 PG 29.1 PG (27.0-34.0) (27.0-34.0) (27.0-34.0) Mean Corpuscular Hemoglobin 33.3 % 34.1 % 34.4 % Concent (32.0-36.0) (32.0-36.0) (32.0-36.0) Red Cell Distribution Width 14.7 % 14.6 % 14.5 % (11.6-17.2) (11.6-17.2) (11.6-17.2) Platelet Count 308 TH/MM3 348 TH/MM3 413 TH/MM3 (150-450) (150-450) (150-450) Mean Platelet Volume 7.7 FL 7.5 FL 7.6 FL (7.0-11.0) (7.0-11.0) (7.0-11.0) Neutrophils (%) (Auto) 85.9 % 86.5 % (16.0-70.0) (16.0-70.0) Lymphocytes (%) (Auto) 8.5 % 8.6 % (9.0-44.0) (9.0-44.0) Monocytes (%) (Auto) 4.1 % (0.0-8.0) 2.8 % (0.0-8.0) Eosinophils (%) (Auto) 0.9 % (0.0-4.0) 1.1 % (0.0-4.0) Basophils (%) (Auto) 0.6 % (0.0-2.0) 1.0 % (0.0-2.0) Neutrophils # (Auto) 13.1 TH/MM3 11.1 TH/MM3 (1.8-7.7) (1.8-7.7) Lymphocytes # (Auto) 1.3 TH/MM3 1.1 TH/MM3 (1.0-4.8) (1.0-4.8) Monocytes # (Auto) 0.6 TH/MM3 0.4 TH/MM3 (0-0.9) (0-0.9) Eosinophils # (Auto) 0.1 TH/MM3 0.1 TH/MM3 (0-0.4) (0-0.4) Basophils # (Auto) 0.1 TH/MM3 0.1 TH/MM3 (0-0.2) (0-0.2) CBC Comment DIFF FINAL DIFF FINAL Differential Comment Sodium Level 143 MEQ/L 140 MEQ/L 139 MEQ/L (136-145) (136-145) (136-145) Potassium Level 3.6 MEQ/L 3.6 MEQ/L 3.8 MEQ/L (3.5-5.1) (3.5-5.1) (3.5-5.1) Chloride Level 107 MEQ/L 103 MEQ/L 99 MEQ/L (98-107) (98-107) (98-107) Carbon Dioxide Level 29.7 MEQ/L 29.4 MEQ/L 34.0 MEQ/L (21.0-32.0) (21.0-32.0) (21.0-32.0) Anion Gap 6 MEQ/L (5-15) 8 MEQ/L (5-15) 6 MEQ/L (5-15) Blood Urea Nitrogen 17 MG/DL (7-18) 17 MG/DL (7-18) 16 MG/DL (7-18) Creatinine 0.58 MG/DL 0.62 MG/DL 0.62 MG/DL (0.60-1.30) (0.60-1.30) (0.60-1.30) Estimat Glomerular Filtration 169 ML/MIN 157 ML/MIN 157 ML/MIN Rate (>89) (>89) (>89) Random Glucose 114 MG/DL 139 MG/DL 124 MG/DL (74-106) (74-106) (74-106) Calcium Level 8.2 MG/DL 8.0 MG/DL 8.7 MG/DL (8.5-10.1) (8.5-10.1) (8.5-10.1) Protein Corrected Calcium 8.5 MG/DL (8.5-10.1) Total Protein 6.6 GM/DL (6.4-8.2) Phosphorus Level 3.9 MG/DL (2.5-4.9) Prealbumin 17 MG/DL (20-40) Result Diagram: 10/15/16 1105 10/15/16 1105 Microbiology Microbiology Date/Time Procedure Status Source Growth 10/15/16 13:15 Gram Stain Received Bronchial Washings Right Upper Lobe Pending 10/15/16 13:15 Bronchial Culture Received Bronchial Washings Right Upper Lobe Pending 10/15/16 13:15 Acid Fast Stain Received Bronchial Washings Right Upper Lobe Pending 10/15/16 13:15 Mycobacterial Culture Received Bronchial Washings Right Upper Lobe Pending 10/15/16 13:15 Fungal Smear Received Bronchial Washings Right Upper Lobe Pending 10/15/16 13:15 Fungal Culture Received Bronchial Washings Right Upper Lobe Pending Imaging Last Impressions Chest X-Ray 10/12/16 0000 Signed Impressions: Service Date/Time: Wednesday, October 12, 2016 15:09 - CONCLUSION: Increasing interstitial and alveolar opacity in both lungs. Jair Coello MD FACR Head CT 10/08/16 0600 Signed Impressions: Service Date/Time: Saturday, October 08, 2016 05:31 - CONCLUSION: Increasing mass effect mainly associated with the right temporal process Michael Choe MD Brain MRI 09/30/16 1659 Signed Impressions: Service Date/Time: Friday, September 30, 2016 17:42 - CONCLUSION: Numerous bilateral cerebral and cerebellar acute or subacute infarcts that are most likely embolic. Please see above. No mass or evidence of abscess. 4 mm of leftward midline shift. Small subarachnoid blood. Michael Freitas MD Renal Ultrasound 09/30/16 0000 Signed Impressions: Service Date/Time: Friday, September 30, 2016 18:45 - CONCLUSION: Ultrasound appearance of the kidneys within normal limits. Carrera catheter in the urinary bladder. Nonspecific splenomegaly incidentally noted. Michael Freitas MD Head Magnetic Resonance Angiography 09/30/16 0000 Signed Impressions: Service Date/Time: Friday, September 30, 2016 17:42 - CONCLUSION: No occlusion, aneurysm or other acute intracranial vascular abnormality demonstrated. Michael Freitas MD Procedures 09/30left subclavian central line, left radial arterial line 10/12-right subclavian central line 10/15-tracheostomy, bronchoscopy Assessment and Plan Disease Oriented Problem List: (1) Intracranial hemorrhage (2) Sepsis (3) Elevated troponin (4) Subarachnoid hemorrhage (5) Cerebral edema (6) Metabolic encephalopathy (7) Acute respiratory failure with hypoxia (8) Septic shock due to Staphylococcus aureus (9) Rash and nonspecific skin eruption (10) Substance abuse Symptom Scale: (1) Dyspnea 0-10 Scale: Unable to quantify (2) Encephalopathy 0-10 Scale: Unable to quantify (3) Agitation 0-10 Scale: Unable to quantify (4) Constipation 0-10 Scale: Unable to quantify Pertinent Non-Medical Issues Psychosocial:originally from [place], lived in [place] since . HS education. Was incarcerated and then in drug rehabilitation in [facility]. 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 Father (parents ) lived in [place] with support from family there. Supported by local friends, coworkers, apartment landlord. Spiritual:believes in God, no particular affiliation. would want ongoing freight adjuster support. Legal: Patient is not able to participate in decision-making due to clinical condition. He is not . Per [place] statutes his parents would be legal decision makers, mother is serving as primary supported by his sister and father. She reports she has POA paperwork. Ethical issues impacting care: Important Contacts mother Felicita Roberts [phone] (HCP) sister Elizabeth Rios [phone] father Pradeep Rios [phone] . 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 He is currently in multiorgan failure, critically ill. Possible he can recover with prolonged resuscitation , prolonged ICU course. Remains very high risk for further complications and setbacks though possible he can survive this initial injury/ illness. Code Status: Full Code Plan * Legal decision maker: Patient is not able to participate in decision-making due to clinical condition. He is not . Per [place] statutes his parents would be legal decision makers, mother is serving as primary supported by his sister and father. She reports she has POA paperwork. (palliative SW reviewed and indicates that it does not include medical decision-making) * Goals: Ongoing meetings with patient family. Patient sister appears to have a reasonable understanding of conditions, prognosis. Patient mother appears to have a very simple understanding of conditions and prognosis. Father also seems to have a very simple understanding of conditions and prognosis. Goals remain aggressive. Family has expressed they would likely proceed with tracheostomy and PEG if needed. Patient's mother is hoping for a miracle and wants to continue whatever measures available to help patient recover. They are open to ongoing to conversations as clinical course evolves. * CODE STATUS: full SYMPTOMS: * Dyspnea- intubated for AMS. remains on mech vent; sedated, no tachypnea observed or reported while on sedative- when lightened agitation/tachypnea ; failed Precedex trial with significant agitation, pulmonary edema and respiratory distress requiring paralytic and additional sedatives. Today breathing comfortably on propofol, Versed, fentanyl.. CXR shows moderate coarse interstitial changes in both lungs, right greater than left, with a well placed tracheostomy and no pneumothorax * Agitation- hx substance abuse; hx ADD, on adderall. currently sedated with diprivan, fentanyl, agitation/tachycardia when sedation lightened; nursing titrating fentanyl, Versed added, Diprivan as needed per critical care; yesterday was not tolerating Precedex significant agitation and respiratory distress requiring paralytic and additional sedatives. * Encephalopathy- multifactorial-- +sepsis, embolic CVA, hx substance abuse, EEG neg seizure ; unable to tolerate full lightning of sedated at this time due to agitation. Trach placement today to assist in vent weaning. Plan for CT of the head to evaluate for further embolic events. * Constipation - BM 6/2. On docusate daily and senna when necessary. Would recommend changing senna to scheduled. Palliative care will continue to follow during hospital course as condition evolves, to assist patient/decision-maker with understanding of medical conditions, weighing benefits/burdens of treatment options, for clarification of goals of treatment. Additionally will assist with any symptoms of palliative concern. . Attestation To help prompt me to consider important information that might be impacting today's encounter and assessment, information from prior notes written by myself or my colleagues may have been "brought forward" into today's note. My signature on this note, however, is an attestation that I personally performed the exam, history, and/or decision-making noted today, and, unless otherwise indicated, the interactions with patient, family, and staff as well as the review of records all occurred today. I also attest that the listed assessment and stated plan reflect my best clinical judgment today based on the combination of historical information, prior notes, and today's exam/ interactions. When time spent is documented, it refers only to time spent today by the signer, or if indicated, combined time spent today by collaborating physician/nurse practitioner. Thu Sexton Oct 15, 2016 3:19 pm
--- NOTE | 2016-10-15 19:18 | HHI.CCPN ---
Subjective Remarks/Hospital Course Hospital Course: This is a 26yM who presents to the ED for altered mental status. On arrival, the patient was obtunded and emergently intubated. His roommate is with him and cannot provide much medical history. The remainder of the history is per EMS and ER documentation and my discussion with the ER physician. Per EMS and ED reports, patient was seen approximately 10 days prior to admission by an unknown physician in the clinic and given antibiotic for fever. After taking the antibiotic, the patient had a new red rash on his hands and healing on his feet. He he was seen in the emergency department 2 days prior to admission for low-grade fever and congestion, generalized weakness, lightheadedness. At that time she was given prescription for prednisone 40 mg daily for 5 days. The patient's landlord apparently found the patient today with altered mental status and called EMS. When EMS arrived, his GCS was 10. There is reports that the patient has a history of substance abuse and was recently in rehabilitation. I did talk to the roommate who confirms that the patient had recently gotten out of rehabilitation and was living with him. The remainder does say that he does not think the patient has been taking any illicit substances recently. In the emergency department, the patient was hypotensive, tachycardic. His head CT is significant for significant areas of infarction in the right frontal , temporal, and cerebellar regions as well as a small area of subarachnoid hemorrhage in the superior right parietal region. Patient has early 3 mm of midline shift as well as effacement on the right. Patient's laboratory data is significant for white blood cell count of 19,000, hemoglobin of 9.9, lactate of 3.7, creatinine 1.69, CK 372, troponin of 11.9. His urine drug screen is positive for opiates and amphetamines. I performed a bedside critical care ultrasound which demonstrated hyperdynamic left ventricular function and what appears to be aortic valve vegetations and I measured to be proximally 0.9 x 8.8 cm. This is associated with what appears to be severe aortic regurgitation. There is no pericardial effusion. Right ventricular function is preserved. A formal echo has been ordered to confirm these findings. Critical care medicine has been consulted to evaluate and manage his shock, altered mental status, multiple areas of infarction, and subarachnoid hemorrhage. Subjective: 10/01: seen and examined around 06:30am. patient on norepinephrine at 6 mcg/min , persistently in shock. patient localizes to pain x [address] extremities. repeat interval head CT with 4mm midline shift. echo with significant aortic valve vegetations and moderate aortic insufficiency. 10/02: now following commands intermittently on the RUE, still localizing in LUE , BLE. off vasopressors this morning. cultures growing staph, sensitivities to follow. 10/03: tachycardic overnight. off vasopressors this morning. not following commands this morning. still persistently febrile and wbc uptrended to 20k. 10/04: still encephalopathic. EEG negative for seizure activity. received 1 trial dose of oxacillin yesterday without evidence of allergic reaction. will let ID guide this therapy, but safe from a critical care standpoint to pursue oxacillin therapy. cultures persistently positive and wbc uptrending. still febrile. 10/05: persistent encephalopathy. but now briskly purposeful x 4. now on oxacillin. discussed with ID, and will plan to start gent induction. wbc downtrending today. still febrile. will continue surveilance cultures q48h until 2 sets negative. 10/06: neuro exam unchanged. still purposeful. blood cultures negative x 24h. will re-draw today. still persists on 1mcg/min levophed, though this has also slightly improved from yesterday. 10/07: neuro exam stable. very agitated, not following commands. blood cultures negative x 48h. off levophed. 10/08: neuro exam stable. CT with increased midline shift and persistent edema, particularly right side. back on levophed. febrile. wbc stable. 10/09: sodium not at goal, likely due to normal renal function. follows commands in the RUE, which is new. spontaneously moves BLE, LUE. wbc downtrending. hgb 7 this AM, but no other signs of end-organ damage from low o2 delivery. 10/10 failed to SBT today due to rapid shallow breathing also tachycardia. Patient found to have a significant anemia below 7 will transfuse and reattempt SBT later today 10/11: Flash pulmonary edema today requiring sedation protocol and vent manipulations. Hypoxemia to 70s. 10/12: Some improvement in gas exchange after heavy sedation and relaxant. 10/13: Tmax 100.3, requiring high dose sedation. 10/14: Leukocytosis resolving. Still way ahead on free water - increase diuretics. Prealbumin 17, adjust TFs accordingly. 10/15: deeply sedated s/p severe agitation from prior causing pulmonary edema and hypoxia. talked with family at length, not clinically improving on pathway, will require tracheostomy and PEG tube for further improvements. also still significantly + on volume. still on vasopressors, but does not clinically appear to be in significant shock. Objective Vital Signs Date Time Temp Pulse Resp B/P Pulse Ox O2 Delivery O2 Flow Rate FiO2 10/15/16 18:00 108 10/15/16 16:00 98.5 18 123/57 100 10/15/16 16:00 50 Intake and Output 10/14/16 10/14/16 10/15/16 08:00 16:00 00:00 Intake Total 1222 ml 1126 ml 1286 ml Output Total 500 ml 3400 ml 1900 ml Balance 722 ml -2274 ml -614 ml Result Diagram: 10/15/16 1105 10/15/16 1105 Imaging Last Impressions Head CT 09/30/16 7993 Signed Impressions: Service Date/Time: Friday, September 30, 2016 16:31 - CONCLUSION: Noncontrast CT findings of concern for multiple intra-axial masses. There is small acute subarachnoid blood present and about 3 mm of leftward midline shift. MRI of the brain with and without contrast recommended. Michael Freitas MD Chest X-Ray 09/30/16 2173 Signed Impressions: Service Date/Time: Friday, September 30, 2016 15:23 - CONCLUSION: No acute cardiopulmonary disease demonstrated. Appropriate endotracheal tube tip position. Nasogastric tube courses into the stomach, tip not included on the study. Michael Freitas MD Objective Remarks GENERAL: Young male, lying in bed, intubated, sedated, critically ill HEENT: Pupils 3 mm, equal, sluggishly reactive. Mucous membranes moist. NECK: No JVD. Trachea midline. Orotracheally intubated CHEST: Equal chest rise. Diffuse crackles. CARDIOVASCULAR: Tachycardic rate, regular rhythm. + JVD. ABDOMEN: Soft, nontender, nondistended. No guarding. MUSCULOSKELETAL: rash on feet has improved. No peripheral edema. Distal pulses 2+. NEUROLOGICAL: RASS -3. Severely agitated and not following commands when sedation lightened. Tolerance to analgesics and sedatives is very high. 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 Still critically ill and with ongoing encephalopathy. We will continue with supportive care. Remains very critically ill at this time. will need trach and PEG; I have talked with family, we will plan to start this with trach today. will send procalcitonin to see if there is a central component to his fever. will repeat limited 2d echo today to eval aortic insufficiency given his persistent vasopressor requirement. continue ongoing diuresis. will attempt to lighten sedation later. Plan by systems: Neurologic: Multiple acute septic CVAs Cerebral edema Small subarachnoid hemorrhage Midline shift, 4 mm Metabolic encephalopathy Agitated Delirium Neurosurgery consulted, Dr. Michelle q1h neuro checks --prop/fent for goal RASS -2. --EEG 10/01- negative for seizures -- d/c seroquel as this does not appear to be helping. -- melatonin to assist with sleep/wake cycles -- delirium and agitation persists - Precedex trial was a catastrophic failure - he was absolutely wild and put himself in pulmonary edema. - schedule haldol 5mg iv q4h. - d/c versed drip Respiratory: Acute hypoxic and hypercarbic respiratory failure Vent bundle Head of bed 30 Avoid hypercarbia and hypoxia Wean FiO2 for goal SPO2 greater than 92% -- trach today. Cardiovascular: Aortic valve endocarditis Moderate aortic insufficiency Cardiogenic shock- resolved. Septic shock- resolving. Arterial line, central line for invasive central pressure monitoring --trend CVP. Abx as described below 2d echo 10/01: aortic valve vegetations, moderate AI. remains on levophed today. continue to wean as tolerated for map > 65. -- repeat limited 2d echo today to re-eval AI. Renal: Acute kidney injury- resolved. Jerez for accurate I's and O's -- Strict I/Os FEN/GI: Hypermagnesemia Metabolic Alkalosis Acute protein calorie malnutritionmild Elevated LFTs Intravascular Volume Overload jevity 1.5, nutrition consult. OG tube to suction Daily BMP --Lasix 40mg iv q12h --diamox 500mg iv q8h x 3 doses. Heme/ID: Anemia, likely secondary to hemolysis from valvulopathy Infective endocarditis Septic shock- resolving. 10/01 blood cultures: MSSA --10/01 sputum culture: MSSA --10/02 blood cultures: MSSA --10/03 blood cultures: MSSA --10/04 bl cx: MSSA --10/05 bl cx: NGTD --10/06 bl cx: NGTD vancomycin, flagyl d/c 10/02. --oxacillin started 10/02 --gentamicin induction therapy per ID. started 10/05, d/c'd Infectious disease following: Dontfraid Endocrine: Hyperglycemia of critical illness -- SSI, every 6 hours, medium scale TSH 0.16, free T4 1.07, T3 < 0.5: likely sick euthyroid. Prophylaxis: GI Prophylaxis Protonix IV DVT Prophylaxis -- SCDs Holding pharmacologic DVT prophylaxis in the setting of cerebral hemorrhage Lines: 09/30 radial arterial line --09/30 left SC TLC d/c. New right SCV CVL placed 10/12. --Solitario Overall impression: He remains critically ill. Unable to wean from ventilator. Pulmonary edema persists. This patient remains critically ill with one or more organ systems which are or may become a threat to life. I have spent in excess of 47 minutes discontinuously in the care and management of this patient. This time is exclusive of procedures, and includes, but is not limited to, evaluation of the patient, review of the medical record, discussions with family, consultants, nursing staff, or respiratory therapy, and documentation in the medical record. Yahir Dominguez MD Oct 15, 2016 19:18
--- NOTE | 2016-10-15 19:20 | PD.PROCEDR ---
Procedure Note Procedure Percutaneous Dilation Tracheostomy Tube Placement Diagnosis: Persistent acute hypoxic respiratory failure despite 15 days of aggressive therapy with mechanical ventilation Indications: Failure to wean from mechanical ventilation Anesthesia: Versed IV, propofol IV, fentanyl IV Neuromuscular Blockade: Cisatracurium IV Anesthesia was provided by the bedside RN Description of the Procedure: The patient was sedated and paralyzed. The patient was positioned in the supine position with a chest roll. The patient's neck was slightly extended. Landmarks were palpated and the anatomy of the anterior neck was deemed normal. A time out procedure was performed. The patient was placed on a volume control mode of ventilation, on 100% FiO2. The patient was prepped and draped sterilely. A bronchoscope was inserted into the endotracheal tube for endoscopic guidance (see separate bronchoscopy procedure note). After negative aspiration, 1% lidocaine with 1:100k epinephrine was injected subcutaneously in the midline neck using a 21g needle for local anesthesia. An approximately 2cm skin incision was made using a #15 blade. The cricoid cartilage, thyroid tissue , and tracheal rings were palpated in the midline. Under direct bronchoscopic guidance, the cuff of the endotracheal tube was deflated and the endotracheal tube was retracted to a level above the level of the skin incision. At this point, a 15g introducer needle/catheter was advanced midline under negative aspiration with saline filled syringe until bubbles were seen and the needle and catheter were visualized in the lumen of the trachea. The needle was withdrawn leaving the catheter in place. A 0.052 in diameter J-shaped guidewire was advanced through the catheter into the lumen of the trachea, under direct bronchoscopic visualization. Using a modified Seldinger technique , a 14 Fr, 4.5 cm introducer dilator was used, followed by a Blue Rhino Percutaneous Tracheostomy Dilator, and finally a 28 Fr tracheostomy loading catheter with 8.0 Cuffed Shiley tracheostomy tube. The loading catheter and guidewire were removed and the tracheostomy tube was confirmed in the lumen of the trachea with bronchoscopy, end-tidal CO2, and returning volumes on the ventilator. The tracheostomy was sewn to the skin with interrupted 2.0 Prolene sutures, and a tracheostomy tie was applied to the skin. There were no immediate complications. There was minimal EBL. A chest x-ray has been ordered. Legal Stenographer: Russ Cartagena MD I personally performed the procedure. Yahir Dominguez MD Oct 15, 2016 19:20
[2016-10-15] MEDS: fentaNYL DRIP 250 ML IV SCH (20:04)
[2016-10-15] MEDS: HALOPERIDOL LACTATE 5 MG/ML AMP IV SCH (20:05)
[2016-10-15] MEDS: MELATONIN 5 MG TAB PO SCH (20:05)
[2016-10-15] MEDS: NOREPINEPHRINE INJ 4 MG in SODIUM CHLOR 0.9% 250 ML INJ 250 ML IV SCH (23:13)
[2016-10-16] VITALS (18 sets, daily range): BP systolic 100–150; BP diastolic 40–56; PULSE 88–107; RESP 14–17; TEMP 98.7–100.2; O2SAT 96–100
[2016-10-16] MEDS ORDERED: ATROPINE SULFATE 1 MG/10 ML SYRINGE ONE (01:57)
[2016-10-16] MEDS ORDERED: EPINEPHrine HCL (1:10,000) 1 MG/10 ML SYRINGE ONE (01:57)
[2016-10-16] MEDS ORDERED: LIDOCAINE HCL 2% 100 MG/5 ML SYRINGE ONE (01:57)
[2016-10-16] MEDS: OXACILLIN INJ 2 GM in SODIUM CHLORIDE 0.9% INJ 100 ML IV SCH ×6 (02:01→21:31)
[2016-10-16] MEDS: PROPOFOL 1000 MG/100 ML INJ 100 ML IV SCH ×4 (03:48→19:48)
[2016-10-16] MEDS: CHLORHEXIDINE GLUCONATE 2 % 1 PACK (2 CLOTHS) TOP SCH (03:48)
[2016-10-16] MEDS: HALOPERIDOL LACTATE 5 MG/ML AMP IV SCH ×6 (03:48→20:00)
--- NOTE | 2016-10-16 05:12 | RADRPT ---
EXAM DATE/TIME: 10/16/2016 04:37 [facility] COMPARISON: No previous studies available for comparison. INDICATIONS : Septic emboli. Evaluate cerebral edema. RADIATION DOSE: 66.20 CTDIvol (mGy) MEDICAL HISTORY : Cardiovascular disease. SURGICAL HISTORY : Unspecified surgeries. ENCOUNTER: Subsequent ACUITY: 2 weeks PAIN SCALE: Non-responsive LOCATION: cranial TECHNIQUE: Multiple contiguous axial images were obtained of the head. Using automated exposure control and adj ustment of the mA and/or kV according to patient size, radiation dose was kept as low as reasonably a chievable to obtain optimal diagnostic quality images. FINDINGS: CEREBRUM: There is a significant amount of edema throughout the right temporal lobe and deep white matter tract s right greater than left. Some hemorrhage is now appeared and in the central aspect on the right va e with a curvilinear area of hemorrhage measuring between 2.5-3.8 cm in length. The is an area of ed naseem in the high left parietal lobe medially with vague 6 mm area of hemorrhage which is unchanged. T here is less edema in the lower left parietal evolving stroke or lesion. There again is significant shift of the third ventricle and septum pellucida and from right to l eft. Today measures 9 mm unchanged POSTERIOR FOSSA: The cerebellum and brainstem are intact. The 4th ventricle is midline. The cerebellopontine angle i s unremarkable. EXTRACRANIAL: The visualized portion of the orbits is intact. SKULL: The calvaria is intact. No evidence of skull fracture. CONCLUSION: Large area of edema in the right temporal lobe with now some central areas of hemorrhage clearly more impressive than on the , in particular the amount of hemorrhage present. I don't see drainable c ollection, it is more of an elongated curvilinear area. Small area stroke and edema in the medial lef t parietal lobe. Improvement in the lower left lateral parietal lesion with much less edema today Loyd Black MD on October 16, 2016 at 5:07 Board Certified Radiologist. This report was verified electronically.
[2016-10-16] MEDS: NOREPINEPHRINE INJ 4 MG in SODIUM CHLOR 0.9% 250 ML INJ 250 ML IV SCH ×3 (05:37→20:29)
[2016-10-16 05:57] LABS: HEMATOCRIT 24.4 % (39.0-51.0); MEAN CELL VOLUME 86.5 FL (80.0-100.0); MEAN CORPUSCULAR HEMOGLOBIN 28.9 PG (27.0-34.0); MEAN CORPUSCULAR HGB CONC 33.4 % (32.0-36.0); PLATELET COUNT 395 TH/MM3 (150-450); RED BLOOD COUNT 2.83 MIL/MM3 (4.50-5.90); RED CELL DISTRIBUTION WIDTH 14.2 % (11.6-17.2); REVIEW FLAG FINAL; WHITE BLOOD COUNT 12.7 TH/MM3 (4.0-11.0)
[2016-10-16 06:28] LABS: BICARBONATE 31.1 MEQ/L (21.0-32.0); POTASSIUM 3.7 MEQ/L (3.5-5.1)
[2016-10-16] MEDS ORDERED: SODIUM CHLORIDE 23.4% INJ 240 MEQ in SYRINGE/BAG 1 EA IV ONE ×2 (07:30→19:00)
[2016-10-16] MEDS: DOCUSATE SODIUM 100 MG/10 ML UDC G-TUBE SCH ×2 (08:00→19:49)
[2016-10-16] MEDS: SODIUM CHLORIDE 0.9% FLUSH 10 ML FLUSH IV FLUSH SCH ×2 (08:25→21:30)
[2016-10-16] MEDS: PANTOPRAZOLE SODIUM 40 MG VIAL IV SCH (08:25)
[2016-10-16] MEDS: CHLORHEXIDINE 0.12% (ORAL KIT) 15 ML CUP MT SCH ×2 (08:26→21:30)
[2016-10-16] MEDS: ARTIFICIAL TEARS OPTH SOLN 15 ML BTL EACH EYE SCH ×3 (08:29→18:00)
[2016-10-16] MEDS: fentaNYL DRIP 250 ML IV SCH ×2 (08:55→19:49)
[2016-10-16] MEDS: METOPROLOL TARTRATE 25 MG TAB PO SCH ×2 (09:00→21:30)
[2016-10-16] MEDS: BENEPROTEIN POWDER 1 PACK G-TUBE SCH ×3 (09:00→18:00)
--- NOTE | 2016-10-16 09:44 | HHI.NSPN ---
(Elliott Fragoso) History Chief Complaint: Trached & sedated (Elliott Fragoso) Interval History 10/01: The HPI is obtained from a review of the EMR due to the patient's altered mental status and intubation. This is a 26-year-old male who was found by his landlord on with altered mental status and called EMS. Upon arrival of EMS the patient had a GCS of 10. In the emergency department the patient was hypotensive and tachycardiac. He was emergently intubated for airway protection. His CT brain demonstrated significant areas of infarction to the right frontal, temporal and cerebellar regions as well as a small subarachnoid haemorrhage to the superior right parietal region. There was a 3 mm midline shift as well as effacement on the right. The patient's laboratory data is significant for white blood cell count of 19,000, haemoglobin of 9.9, lactate of 3.7, creatinine 1.69, CK 372, troponin of 11.9. His urine drug screen is positive for opiates and amphetamines. He was subsequently admitted to the [facility] for further management and monitoring. Per EMS and ED reports, patient was seen approximately 10 days prior to admission by an unknown physician in the clinic and given antibiotic for fever. After taking the antibiotic, the patient had a new red rash on his hands and healing on his feet. He he was seen in the emergency department 2 days prior to admission for low-grade fever and congestion, generalized weakness, lightheadedness. At that time she was given prescription for prednisone 40 mg daily for 5 days. The patient's landlord apparently found the patient today with altered mental status and called EMS. When EMS arrived, his GCS was 10. There is reports that the patient has a history of substance abuse and was recently in rehabilitation. The patient's roommate confirmed to the Drum Sprayer that the patient had recently been in rehabilitation due to a history of substance abuse. The roommate did not think he was doing any illicit drugs recently. 10/02: The patient remains intubated & sedated. He withdraws to painful stimuli to the extremities. 10/03: The patient is sedated with propofol & fentanyl. Nursing reports that he does move the RUE mostly but will move the BLE when the sedation is off. Nursing reported no movement of the LUE. When EEG was at the bedside with the sedation down the patient became quite agitated and was kicking out. 10/04: The patient remains sedated. Nursing states he continues to be agitated when the sedation is off. A CT brain yesterday demonstrated multiple evolving infarcts. 10/05: The patient is still sedated with propofol & fentanyl. He does not appear to be responding to verbal commands. 10/09: The patient remains sedated with propofol & fentanyl. He did open his right eye on his own as Nursing & this practitioner were talking in the room. He did withdraw on the left side to noxious stimuli. 10/11: The patient had received Nimbex prior to being seen due to fighting the vent. When seen the patient was becoming tachypneic and fighting against the vent again. His mother did say she was told he had a good night and yesterday was moving all extremities although the left upper was weaker. His CXR this morning was suggestive of infiltrates in layering effusions. The Drum Sprayer felt the patient was in flash pulmonary edema. 10/16: The patient is trached and sedated when seen this morning. He did have a CT brain this morning which demonstrated increased edema and new haemorrhage to the right temporal lobe. No drainable collection was identified. A small stroke with edema was also noted to the medial left parietal lobe. The lower left parietal lesion and edema had improved. He had trace movement of the LUE & BLE to noxious stimuli. (Elliott Fragoso) System Review Comments Unable to obtain ROS due to patient's mental status and being trached & sedated. (Elliott Fragoso) Exam Results Vital Signs Date Time Temp Pulse Resp B/P Pulse Ox O2 Delivery O2 Flow Rate FiO2 10/16/16 08:23 98 40 10/16/16 06:00 90 10/16/16 04:00 98.7 14 116/46 Intake and Output 10/15/16 10/15/16 10/15/16 07:59 15:59 23:59 Intake Total 1203 ml 1040 ml 1659 ml Output Total 2800 ml 3200 ml 400 ml Balance -1597 ml -2160 ml 1259 ml (Elliott Fragoso) Physical Examination GENERAL: Sedated & trached, NAD. HEENT: Normocephalic, atraumatic. PERRL 3 mm, sluggish. Mucous membranes moist, orally intubated, OGT present. CHEST: CTAB w/o W/R/R, equal excursion, nonlaboured, trached & mechanically ventilated. CARDIOVASCULAR: S1S2 w/regular rate but fast, radial & pedal pulses 2+ bilaterally, cap refill < 2 sec, 1+ edema at ankles but less to feet. Monitor is sinus tachycardia w/o any ectopy noted. ABDOMEN: Abdomen soft, nontender, positive bowel sounds, OGT clamped. GENITOURINARY: Catheter to BSD. MUSCULOSKELETAL: Trace movement of LUE & BLE to noxious stimuli, no evident deformity or clubbing. INTEGUMENTARY: The nonblanching macular rash to the feet & ankle has resolved, continued evolution of skin desquamation. The tip of the right great toe with evolving necrotic area. NEUROLOGICAL: Sedated & intubated, GCS 4T (E1 V1T M2) PERRL 3 mm minimally reactive, disconjugate gaze with left preference He is not following any commands, trace movement LUE & BLE to noxious stimuli, no response to central noxious stimuli. Unable to assess for sensory deficit due to mental status (Elliott Fragoso) Lab, Micro, Other Results Allergies Coded Allergies Type Severity Reaction Last Updated Verified Hydrocodone Allergy Unknown Nausea/Vomiting 10/04/16 Yes Sulfa Allergy Unknown 09/30/16 Yes Toradol Allergy Unknown 09/30/16 Yes Recent Impressions Head CT 10/16/16 0000 Signed Impressions: Service Date/Time: Sunday, October 16, 2016 04:37 - CONCLUSION: Large area of edema in the right temporal lobe with now some central areas of hemorrhage clearly more impressive than on the , in particular the amount of hemorrhage present. I don't see drainable collection, it is more of an elongated curvilinear area. Small area stroke and edema in the medial left parietal lobe. Improvement in the lower left lateral parietal lesion with much less edema today Loyd Black MD Chest X-Ray 10/15/16 0000 Signed Impressions: Service Date/Time: Saturday, October 15, 2016 13:21 - CONCLUSION: Trach is in good position without pneumothorax. Jair Coello MD FACR /// 05:59 17:59 05:59 17:59 05:59 17:59 Intake Total 930 ml 2348 ml 1286 ml 2243 ml 1659 ml 873 ml Output Total 550 ml 3900 ml 1900 ml 6000 ml 400 ml 3400 ml Balance 380 ml -1552 ml -614 ml -3757 ml 1259 ml -2527 ml Intake IV Total 463 ml 1345 ml 863 ml 1474 ml 1559 ml 833 ml Tube Feeding 347 ml 903 ml 303 ml 549 ml 0 ml 0 ml Tube Irrigant 120 ml 100 ml 120 ml 220 ml 100 ml 40 ml Output Urine Total 550 ml 3900 ml 1900 ml 6000 ml 400 ml 3400 ml # Bowel Movements 0 0 0 0 0 0 Laboratory Tests Test 10/14/16 10/15/16 10/15/16 10/16/16 06:05 11:05 13:15 05:40 White Blood Count 12.8 TH/MM3 12.3 TH/MM3 12.7 TH/MM3 Red Blood Count 2.67 MIL/MM3 2.91 MIL/MM3 2.83 MIL/MM3 Hemoglobin 7.8 GM/DL 8.5 GM/DL 8.2 GM/DL Hematocrit 22.9 % 24.6 % 24.4 % Mean Corpuscular Volume 85.9 FL 84.8 FL 86.5 FL Mean Corpuscular Hemoglobin 29.3 PG 29.1 PG 28.9 PG Mean Corpuscular Hemoglobin 34.1 % 34.4 % 33.4 % Concent Red Cell Distribution Width 14.6 % 14.5 % 14.2 % Platelet Count 348 TH/MM3 413 TH/MM3 395 TH/MM3 Mean Platelet Volume 7.5 FL 7.6 FL 7.7 FL Neutrophils (%) (Auto) 86.5 % Lymphocytes (%) (Auto) 8.6 % Monocytes (%) (Auto) 2.8 % Eosinophils (%) (Auto) 1.1 % Basophils (%) (Auto) 1.0 % Neutrophils # (Auto) 11.1 TH/MM3 Lymphocytes # (Auto) 1.1 TH/MM3 Monocytes # (Auto) 0.4 TH/MM3 Eosinophils # (Auto) 0.1 TH/MM3 Basophils # (Auto) 0.1 TH/MM3 CBC Comment DIFF FINAL Differential Comment Sodium Level 140 MEQ/L 139 MEQ/L 138 MEQ/L Potassium Level 3.6 MEQ/L 3.8 MEQ/L 3.7 MEQ/L Chloride Level 103 MEQ/L 99 MEQ/L 100 MEQ/L Carbon Dioxide Level 29.4 MEQ/L 34.0 MEQ/L 31.1 MEQ/L Anion Gap 8 MEQ/L 6 MEQ/L 7 MEQ/L Blood Urea Nitrogen 17 MG/DL 16 MG/DL 17 MG/DL Creatinine 0.62 MG/DL 0.62 MG/DL 0.77 MG/DL Estimat Glomerular Filtration 157 ML/MIN 157 ML/MIN 122 ML/MIN Rate Random Glucose 139 MG/DL 124 MG/DL 115 MG/DL Calcium Level 8.0 MG/DL 8.7 MG/DL 8.7 MG/DL Phosphorus Level 3.9 MG/DL Prealbumin 17 MG/DL 24 MG/DL Procalcitonin 0.75 ng/mL Bronchoalveolar Lavage WBC 5500 /MM3 Bronchoalveolar Lavage RBC 9000 /MM3 Bronchoalveolar Lavage 98 % Neutrophils Bronchoalveolar Lavage 2 % Lymphocytes Bronchoalveolar Lavage Diff Comment Lavage Fluid Total Volume 15.0 ML Lavage Fluid Total WBC Count 82.000 MILLION Vital Signs Date Time Temp Pulse Resp B/P Pulse Ox O2 Delivery O2 Flow Rate FiO2 10/16/16 08:23 98 40 10/16/16 06:00 90 10/16/16 04:39 100 10/16/16 04:17 98 40 10/16/16 04:00 90 10/16/16 04:00 98.7 90 14 116/46 98 10/16/16 04:00 50 10/16/16 02:00 94 10/16/16 01:09 99 40 10/16/16 00:00 50 10/16/16 00:00 99.7 94 14 127/46 100 10/16/16 00:00 94 10/15/16 22:00 102 10/15/16 21:58 96 40 10/15/16 20:00 99.8 102 16 134/48 100 10/15/16 20:00 50 10/15/16 20:00 100 40 10/15/16 20:00 102 10/15/16 18:00 108 10/15/16 16:00 84 10/15/16 16:00 98.5 95 18 123/57 100 10/15/16 16:00 50 10/15/16 15:28 100 40 10/15/16 14:00 84 10/15/16 12:00 99.1 111 18 127/60 100 10/15/16 12:00 50 10/15/16 12:00 111 10/15/16 11:45 99 40 10/15/16 10:00 99 10/15/16 08:24 97 40 10/15/16 08:00 99.4 98 14 136/51 100 10/15/16 08:00 50 10/15/16 08:00 104 10/15/16 06:00 104 10/15/16 04:25 99 45 10/15/16 04:00 99.6 91 14 137/49 100 10/15/16 04:00 50 10/15/16 04:00 91 10/15/16 02:00 100 10/15/16 00:18 100 50 10/15/16 00:00 104 10/15/16 00:00 50 10/15/16 00:00 99.8 104 16 122/50 100 10/14/16 22:00 114 10/14/16 20:00 50 10/14/16 20:00 100.1 120 18 140/52 100 10/14/16 20:00 120 10/14/16 19:49 100 50 10/14/16 16:00 50 10/14/16 16:00 99.5 99 15 104/55 100 10/14/16 14:57 96 50 10/14/16 13:04 94 50 10/14/16 12:00 99.4 102 17 102/46 94 10/14/16 12:00 50 10/14/16 11:01 98 50 10/14/16 08:00 99.4 100 16 97/34 97 10/14/16 08:00 50 10/14/16 07:25 95 50 10/14/16 06:00 104 10/14/16 04:10 94 50 10/14/16 04:00 80 10/14/16 04:00 96 10/14/16 04:00 99.2 96 18 114/50 94 10/14/16 02:00 100 10/14/16 00:15 95 50 10/14/16 00:00 80 10/14/16 00:00 97 10/14/16 00:00 98.4 97 19 116/50 96 10/13/16 22:00 89 10/13/16 20:23 95 50 10/13/16 20:00 100 10/13/16 20:00 99.3 118 20 132/69 94 10/13/16 20:00 80 10/13/16 18:00 110 10/13/16 16:57 100 50 10/13/16 16:00 80 10/13/16 16:00 99.8 118 24 155/62 95 10/13/16 16:00 123 10/13/16 14:00 111 10/13/16 13:07 100 60 10/13/16 12:00 80 10/13/16 12:00 93 10/13/16 12:00 98.4 93 19 134/54 97 10/13/16 10:00 112 (Elliott Fragoso) Medical Decision Making Impression and Plan Impression: Multiple acute septic CVAs Cerebral edema Small subarachnoid hemorrhage Midline shift, 3 mm Metabolic encephalopathy Septic shock Infective endocarditis CT brain demonstrates large area of right temporal lobe edema with some new central area haemorrhage w/o any drainable collection identified, small area stroke & edema to the medial left parietal lobe, and improvement in the lower left parietal lesion & edema Patient remains critical with severe neurological deficit, poor prognosis for any meaningful recovery Plan: Stat CT brain for any further decline in neurological status Frequent neuro checks Continue 3% saline & monitor sodium level Critical care management by Drum Sprayer Antibiotics per Infectious Disease (Elliott Fragoso) Attending Statement I have personally seen and examined the patient on the date of this note. Pertinent documentation and study results have been reviewed by the undersigned. I have personally developed the treatment plan and performed medical decision making. Agree with findings, exam, and treatment plan as noted above. I spent approximately 30 minutes discussing findings with the patient's family this evening. The CT scan images from 10/16/16 have been reviewed with them as well as the recent MRI brain images. He has a small amount of new hemorrhage circumferentially along the area of the previous right temporal infarct. There is increased primarily right temporal edema and mass effect compared to the previous CT scan from last week. However the mass effect is relatively focal primarily along the ventricle, and there is not significant compression along the brainstem or cisterns. Findings were discussed with cork insulator today. The patient's sodium was allowed to normalize last week given the improvement in the CT scan of the head. Due to the findings on the CT scan today, 10/16/16, the sodium will be increased again with hypertonic saline as needed. A follow-up CT scan of the head will be obtained in the next 2-3 days, or earlier if any significant neurologic changes occur. I have answered all of family questions. They appear to understand all the above (Pino Michelle MD) Elliott Fragoso Oct 16, 2016 09:44 Pino Michelle MD Oct 16, 2016 18:14
--- NOTE | 2016-10-16 11:32 | HHI.HCPN ---
Reason for visit a. To assist with evaluation and management of symptoms including:dyspnea, encephalopathy, agitation, constipation b. To assist medical decision maker(s) with: better understanding of current medical conditions; weighing benefits/burdens of medical treatment options; making medical treatment decisions. Subjective/Interval History s/p trach yesterday, possible PEG placement today. ID cont to follow, BC from negative. Bronch washings micro pending from yesterday. +on Oxacillin per ID. Low grade fevers, currently 100.1. Has cont to require significant amt sedation due to agitation/dyspnea. On fentanyl 200mcgs/hr, diprivan 50mcgs/kg/min. Versed is off. Unable to fully lighten for neuro assess due to this. Repeat ECHO in process today. Repeat CT brain this am = "Large area of edema in the right temporal lobe with now some central areas of hemorrhage clearly more impressive than on the , in particular the amount of hemorrhage present. I don't see drainable collection, it is more of an elongated curvilinear area. Small area stroke and edema in the medial left parietal lobe. Improvement in the lower left lateral parietal lesion with much less edema today" Neurosurgery following, [facility] saw pt earlier today, spoke w family at bedside. Dr Dominguez has also met with family earlier today. + requiring levophed for hypotension. Pt seen in room as 2D echo in process. Observe strong cough reflex when trach tubing touched/moved during echo. Limited neuro exam due to sedation, procedure in process. Updated sister Anay at bedside, mother and father arrived shortly during visit, updated them as well. All questions answered. Family indicates they continue to support pt and are hoping for recovery, goals remain aggressive. Sister voices understanding of overall poor prognosis. They have palliative contact information. D/w primary RN. . Advance Directives Living Will: Never completed Health Care Surrogate: Never completed Durable Power of Lens Inserter: Completed, but not made available (mother reports has POA, not clear if this includes medical decision making (SW has reviewed, this does NOT include healthcare decision making) ) Objective Vital Signs Date Time Temp Pulse Resp B/P Pulse Ox O2 Delivery O2 Flow Rate FiO2 10/16/16 08:23 98 40 10/16/16 06:00 90 10/16/16 04:39 100 10/16/16 04:17 98 40 10/16/16 04:00 90 10/16/16 04:00 98.7 90 14 116/46 98 10/16/16 04:00 50 10/16/16 02:00 94 10/16/16 01:09 99 40 10/16/16 00:00 50 10/16/16 00:00 99.7 94 14 127/46 100 10/16/16 00:00 94 10/15/16 22:00 102 10/15/16 21:58 96 40 10/15/16 20:00 99.8 102 16 134/48 100 10/15/16 20:00 50 10/15/16 20:00 100 40 10/15/16 20:00 102 10/15/16 18:00 108 10/15/16 16:00 84 10/15/16 16:00 98.5 95 18 123/57 100 10/15/16 16:00 50 10/15/16 15:28 100 40 10/15/16 14:00 84 10/15/16 12:00 99.1 111 18 127/60 100 10/15/16 12:00 50 10/15/16 12:00 111 10/15/16 11:45 99 40 Intake & Output 10/16/16 10/16/16 07:00 19:00 Intake Total 2532 ml Output Total 3800 ml Balance -1268 ml Intake IV Total 2392 ml Tube Feeding 0 ml Tube Irrigant 140 ml Output Urine Total 3800 ml # Bowel Movements 0 Physical Exam CONSTITUTIONAL/GENERAL: This is an adequately nourished patient, sedated, + strong coughing on mech vent TUBES/LINES/DRAINS: Rt SC central line. ETT, OGT, carrera catheter SKIN: No jaundice, or lesions. Embolic purpuric lesions on LT great toe. peeling bilateral palms of hands. CARDIOVASCULAR: Tachycardic rate (101) and regular rhythm without murmur. No peripheral edema, periph pulses palp RESPIRATORY/CHEST: Symmetric, unlabored respirations on mech vent, spont strong cough w any stimuli. Coarse air movement throughout lungs, breath sounds equal bilat GASTROINTESTINAL: Abdomen soft, nondistended. No palpable masses. No guarding. TF held for poss procedure today. GENITOURINARY: Without palpable bladder distension. Carrera catheter in place clear dark yellow urine. NEUROLOGICAL: sedated on mech vent.(Fentanyl, Diprivan) appears calm with no stimuli, however strong cough reflex with touch to vent tubing. did not further assess neuro due to agitation concerns. PSYCHIATRIC: -- limited assess due to condition/sedation. . . Diagnostic Tests Laboratory Laboratory Tests Test 10/14/16 10/15/16 10/15/16 10/16/16 06:05 11:05 13:15 05:40 White Blood Count 12.8 TH/MM3 12.3 TH/MM3 12.7 TH/MM3 (4.0-11.0) (4.0-11.0) (4.0-11.0) Red Blood Count 2.67 MIL/MM3 2.91 MIL/MM3 2.83 MIL/MM3 (4.50-5.90) (4.50-5.90) (4.50-5.90) Hemoglobin 7.8 GM/DL 8.5 GM/DL 8.2 GM/DL (13.0-17.0) (13.0-17.0) (13.0-17.0) Hematocrit 22.9 % 24.6 % 24.4 % (39.0-51.0) (39.0-51.0) (39.0-51.0) Mean Corpuscular Volume 85.9 FL 84.8 FL 86.5 FL (80.0-100.0) (80.0-100.0) (80.0-100.0) Mean Corpuscular Hemoglobin 29.3 PG 29.1 PG 28.9 PG (27.0-34.0) (27.0-34.0) (27.0-34.0) Mean Corpuscular Hemoglobin 34.1 % 34.4 % 33.4 % Concent (32.0-36.0) (32.0-36.0) (32.0-36.0) Red Cell Distribution Width 14.6 % 14.5 % 14.2 % (11.6-17.2) (11.6-17.2) (11.6-17.2) Platelet Count 348 TH/MM3 413 TH/MM3 395 TH/MM3 (150-450) (150-450) (150-450) Mean Platelet Volume 7.5 FL 7.6 FL 7.7 FL (7.0-11.0) (7.0-11.0) (7.0-11.0) Neutrophils (%) (Auto) 86.5 % (16.0-70.0) Lymphocytes (%) (Auto) 8.6 % (9.0-44.0) Monocytes (%) (Auto) 2.8 % (0.0-8.0) Eosinophils (%) (Auto) 1.1 % (0.0-4.0) Basophils (%) (Auto) 1.0 % (0.0-2.0) Neutrophils # (Auto) 11.1 TH/MM3 (1.8-7.7) Lymphocytes # (Auto) 1.1 TH/MM3 (1.0-4.8) Monocytes # (Auto) 0.4 TH/MM3 (0-0.9) Eosinophils # (Auto) 0.1 TH/MM3 (0-0.4) Basophils # (Auto) 0.1 TH/MM3 (0-0.2) CBC Comment DIFF FINAL Differential Comment Sodium Level 140 MEQ/L 139 MEQ/L 138 MEQ/L (136-145) (136-145) (136-145) Potassium Level 3.6 MEQ/L 3.8 MEQ/L 3.7 MEQ/L (3.5-5.1) (3.5-5.1) (3.5-5.1) Chloride Level 103 MEQ/L 99 MEQ/L 100 MEQ/L (98-107) (98-107) (98-107) Carbon Dioxide Level 29.4 MEQ/L 34.0 MEQ/L 31.1 MEQ/L (21.0-32.0) (21.0-32.0) (21.0-32.0) Anion Gap 8 MEQ/L (5-15) 6 MEQ/L (5-15) 7 MEQ/L (5-15) Blood Urea Nitrogen 17 MG/DL (7-18) 16 MG/DL (7-18) 17 MG/DL (7-18) Creatinine 0.62 MG/DL 0.62 MG/DL 0.77 MG/DL (0.60-1.30) (0.60-1.30) (0.60-1.30) Estimat Glomerular Filtration 157 ML/MIN 157 ML/MIN 122 ML/MIN Rate (>89) (>89) (>89) Random Glucose 139 MG/DL 124 MG/DL 115 MG/DL (74-106) (74-106) (74-106) Calcium Level 8.0 MG/DL 8.7 MG/DL 8.7 MG/DL (8.5-10.1) (8.5-10.1) (8.5-10.1) Phosphorus Level 3.9 MG/DL (2.5-4.9) Prealbumin 17 MG/DL 24 MG/DL (20-40) (20-40) Procalcitonin 0.75 ng/mL (0.00-0.50) Bronchoalveolar Lavage WBC 5500 /MM3 Bronchoalveolar Lavage RBC 9000 /MM3 Bronchoalveolar Lavage 98 % Neutrophils Bronchoalveolar Lavage 2 % Lymphocytes Bronchoalveolar Lavage Diff Comment Lavage Fluid Total Volume 15.0 ML Lavage Fluid Total WBC Count 82.000 MILLION (4.700-7.100) Result Diagram: 10/16/16 0540 10/16/16 0540 Microbiology Microbiology Date/Time Procedure Status Source Growth 10/15/16 13:15 Gram Stain - Final Resulted Bronchial Washings Right Upper Lobe 10/15/16 13:15 Bronchial Culture Resulted Bronchial Washings Right Upper Lobe Pending 10/15/16 13:15 Acid Fast Stain Received Bronchial Washings Right Upper Lobe Pending 10/15/16 13:15 Mycobacterial Culture Received Bronchial Washings Right Upper Lobe Pending 10/15/16 13:15 Fungal Smear Received Bronchial Washings Right Upper Lobe Pending 10/15/16 13:15 Fungal Culture Received Bronchial Washings Right Upper Lobe Pending Imaging Last Impressions Head CT 10/16/16 0000 Signed Impressions: Service Date/Time: Sunday, October 16, 2016 04:37 - CONCLUSION: Large area of edema in the right temporal lobe with now some central areas of hemorrhage clearly more impressive than on the , in particular the amount of hemorrhage present. I don't see drainable collection, it is more of an elongated curvilinear area. Small area stroke and edema in the medial left parietal lobe. Improvement in the lower left lateral parietal lesion with much less edema today Loyd Black MD Chest X-Ray 10/15/16 0000 Signed Impressions: Service Date/Time: Saturday, October 15, 2016 13:21 - CONCLUSION: Trach is in good position without pneumothorax. Jair Coello MD FACR Brain MRI 09/30/16 1659 Signed Impressions: Service Date/Time: Friday, September 30, 2016 17:42 - CONCLUSION: Numerous bilateral cerebral and cerebellar acute or subacute infarcts that are most likely embolic. Please see above. No mass or evidence of abscess. 4 mm of leftward midline shift. Small subarachnoid blood. Michael Freitas MD Renal Ultrasound 09/30/16 0000 Signed Impressions: Service Date/Time: Friday, September 30, 2016 18:45 - CONCLUSION: Ultrasound appearance of the kidneys within normal limits. Carrera catheter in the urinary bladder. Nonspecific splenomegaly incidentally noted. Michael Freitas MD Head Magnetic Resonance Angiography 09/30/16 0000 Signed Impressions: Service Date/Time: Friday, September 30, 2016 17:42 - CONCLUSION: No occlusion, aneurysm or other acute intracranial vascular abnormality demonstrated. Michael Freitas MD Procedures 09/30left subclavian central line, left radial arterial line 10/12-right subclavian central line 10/15-tracheostomy, bronchoscopy Assessment and Plan Disease Oriented Problem List: (1) Intracranial hemorrhage (2) Sepsis (3) Elevated troponin (4) Subarachnoid hemorrhage (5) Cerebral edema (6) Metabolic encephalopathy (7) Acute respiratory failure with hypoxia (8) Septic shock due to Staphylococcus aureus (9) Rash and nonspecific skin eruption (10) Substance abuse Symptom Scale: (1) Dyspnea 0-10 Scale: Unable to quantify (2) Encephalopathy 0-10 Scale: Unable to quantify (3) Agitation 0-10 Scale: Unable to quantify (4) Constipation 0-10 Scale: Unable to quantify Pertinent Non-Medical Issues Psychosocial:originally from [place], lived in [place] since . education. Was incarcerated and then in drug rehabilitation in [facility]. 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 Father (parents ) lived in [place] with support from family there. Supported by local friends, coworkers, apartment landlord. Spiritual:believes in God, no particular affiliation. would want ongoing epic interface analyst support. Legal: Patient is not able to participate in decision-making due to clinical condition. He is not . Per [place] statutes his parents would be legal decision makers, mother is serving as primary supported by his sister and father. She reports she has POA paperwork. Ethical issues impacting care: Important Contacts mother Felicita Roberts [phone] (HCP) sister Elizabeth Rios [phone] father Pradeep Rios [phone] . 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 He is currently in multiorgan failure, critically ill. Possible he can recover with prolonged resuscitation , prolonged ICU course. Remains very high risk for further complications and setbacks though possible he can survive this initial injury/ illness. Code Status: Full Code Plan * Legal decision maker: Patient is not able to participate in decision-making due to clinical condition. He is not . Per [place] statutes his parents would be legal decision makers, mother is serving as primary supported by his sister and father. She reports she has POA paperwork. (palliative SW reviewed and indicates that it does not include medical decision-making) * Goals: Ongoing meetings with patient family. Patient sister appears to have a reasonable understanding of conditions, prognosis. Patient mother appears to have a very simple understanding of conditions and prognosis. Father also seems to have a very simple understanding of conditions and prognosis. Goals remain aggressive. Family has agreed to trach /PEG (post trach yesterday). Patient's mother is hoping for a miracle and wants to continue whatever measures available to help patient recover. They are open to ongoing to conversations as clinical course evolves. * CODE STATUS: full SYMPTOMS: * Dyspnea- intubated for AMS. remains on mech vent; sedated, no tachypnea observed or reported while on sedative- when lightened agitation/tachypnea ; ongoing significant agitation, and coughing/respiratory distress requiring Today breathing comfortably on propofol, fentanyl. CXR 6/5= moderate coarse interstitial changes in both lungs, right greater than left, with a well placed tracheostomy and no pneumothorax * Agitation- hx substance abuse; hx ADD, on adderall. currently sedated with diprivan, fentanyl, agitation/tachycardia when sedation lightened; nursing titrating fentanyl, Versed discontinued. * Encephalopathy- multifactorial-- +sepsis, embolic CVA, hx substance abuse, EEG neg seizure ; unable to tolerate full lightning of sedated at this time due to agitation. repeat CT brain this am= Large area of edema in the right temporal lobe with now some central areas of hemorrhage clearly more impressive than on the , in particular the amount of hemorrhage present. Small area stroke and edema in the medial left parietal lobe. Improvement in the lower left lateral parietal lesion with much less edema today * Constipation - BM 6/. On docusate daily and senna when necessary. Would recommend changing senna to scheduled- d/w nsg to admin PRN Senna today Palliative care will continue to follow during hospital course as condition evolves, to assist patient/decision-maker with understanding of medical conditions, weighing benefits/burdens of treatment options, for clarification of goals of treatment. Additionally will assist with any symptoms of palliative concern. . Attestation To help prompt me to consider important information that might be impacting today's encounter and assessment, information from prior notes written by myself or my colleagues may have been "brought forward" into today's note. My signature on this note, however, is an attestation that I personally performed the exam, history, and/or decision-making noted today, and, unless otherwise indicated, the interactions with patient, family, and staff as well as the review of records all occurred today. I also attest that the listed assessment and stated plan reflect my best clinical judgment today based on the combination of historical information, prior notes, and today's exam/ interactions. When time spent is documented, it refers only to time spent today by the signer, or if indicated, combined time spent today by collaborating physician/nurse practitioner. Sandy Liu Oct 16, 2016 11:32
[2016-10-16] MEDS: FUROSEMIDE 40 MG/4 ML VIAL IV PUSH SCH ×2 (11:46→21:31)
--- NOTE | 2016-10-16 11:56 | HHI.IDPN ---
Note Infectious Disease Note Notes reviewed. Patient is on the vent. 40% FIO2. No response for me. BP stable. Has trach place 10/15. Low grade temps. Sputum has staph aureus. Blood cultures 09/30 Staph aureus in 5 of 6 bottles. Blood culture 10/02 positive. staph aureus. Blood culture 10/03 positive. staph aureus. Blood culture 10/04 positive. staph aureus. Blood culture 10/05 negative. Blood culture 10/06 negative. Patient was brought to the emergency department with altered mental status. Was evaluated for rash at preceding ED evaluation 2 days prior. PAST MEDICAL HISTORY 1. Substance abuse. The patient was in rehabilitation 1 year ago. 2. ADHD. 3. Degenerative disk disease. ALLERGIES Reportedly the patient is allergic to SULFA, PENICILLIN, TORADOL, CODEINE. ANTIBIOTICS: Oxacillin. OBJECTIVE: Vital Signs Date Time Temp Pulse Resp B/P Pulse Ox O2 Delivery O2 Flow Rate FiO2 10/16/16 11:17 97 40 10/16/16 08:23 98 40 10/16/16 06:00 90 10/16/16 04:39 100 10/16/16 04:17 98 40 10/16/16 04:00 90 10/16/16 04:00 98.7 90 14 116/46 98 10/16/16 04:00 50 10/16/16 02:00 94 10/16/16 01:09 99 40 10/16/16 00:00 50 10/16/16 00:00 99.7 94 14 127/46 100 10/16/16 00:00 94 10/15/16 22:00 102 10/15/16 21:58 96 40 10/15/16 20:00 99.8 102 16 134/48 100 10/15/16 20:00 50 10/15/16 20:00 100 40 10/15/16 20:00 102 10/15/16 18:00 108 10/15/16 16:00 84 10/15/16 16:00 98.5 95 18 123/57 100 10/15/16 16:00 50 10/15/16 15:28 100 40 10/15/16 14:00 84 10/15/16 12:00 99.1 111 18 127/60 100 10/15/16 12:00 50 10/15/16 12:00 111 610/15/16 10/16/16 15:00 23:00 07:00 Intake Total 1040 ml 1659 ml 873 ml Output Total 3200 ml 400 ml 3400 ml Balance -2160 ml 1259 ml -2527 ml Intake IV Total 680 ml 1559 ml 833 ml Tube Feeding 240 ml 0 ml 0 ml Tube Irrigant 120 ml 100 ml 40 ml Output Urine Total 3200 ml 400 ml 3400 ml # Bowel Movements 0 0 0 Laboratory Tests Test 10/15/16 10/16/16 11:05 05:40 White Blood Count 12.3 TH/MM3 12.7 TH/MM3 Red Blood Count 2.91 MIL/MM3 2.83 MIL/MM3 Hemoglobin 8.5 GM/DL 8.2 GM/DL Hematocrit 24.6 % 24.4 % Mean Corpuscular Volume 84.8 FL 86.5 FL Mean Corpuscular Hemoglobin 29.1 PG 28.9 PG Mean Corpuscular Hemoglobin 34.4 % 33.4 % Concent Red Cell Distribution Width 14.5 % 14.2 % Platelet Count 413 TH/MM3 395 TH/MM3 Mean Platelet Volume 7.6 FL 7.7 FL Laboratory Tests Test 10/15/16 10/16/16 11:05 05:40 Sodium Level 139 MEQ/L 138 MEQ/L Potassium Level 3.8 MEQ/L 3.7 MEQ/L Chloride Level 99 MEQ/L 100 MEQ/L Carbon Dioxide Level 34.0 MEQ/L 31.1 MEQ/L Anion Gap 6 MEQ/L 7 MEQ/L Blood Urea Nitrogen 16 MG/DL 17 MG/DL Creatinine 0.62 MG/DL 0.77 MG/DL Estimat Glomerular Filtration 157 ML/MIN 122 ML/MIN Rate Random Glucose 124 MG/DL 115 MG/DL Calcium Level 8.7 MG/DL 8.7 MG/DL Prealbumin 24 MG/DL Procalcitonin 0.75 ng/mL Microbiology Date/Time Procedure Status Source Growth 10/15/16 13:15 Gram Stain - Final Resulted Bronchial Washings Right Upper Lobe 10/15/16 13:15 Bronchial Culture Resulted Bronchial Washings Right Upper Lobe Pending 10/15/16 13:15 Acid Fast Stain Received Bronchial Washings Right Upper Lobe Pending 10/15/16 13:15 Mycobacterial Culture Received Bronchial Washings Right Upper Lobe Pending 10/15/16 13:15 Fungal Smear Received Bronchial Washings Right Upper Lobe Pending 10/15/16 13:15 Fungal Culture Received Bronchial Washings Right Upper Lobe Pending IMAGING: Head CT 10/16/16 0000 Signed Impressions: Service Date/Time: Sunday, October 16, 2016 04:37 - CONCLUSION: Large area of edema in the right temporal lobe with now some central areas of hemorrhage clearly more impressive than on the , in particular the amount of hemorrhage present. I don't see drainable collection, it is more of an elongated curvilinear area. Small area stroke and edema in the medial left parietal lobe. Improvement in the lower left lateral parietal lesion with much less edema today Loyd Black MD Chest X-Ray 10/15/16 0000 Signed Impressions: Service Date/Time: Saturday, October 15, 2016 13:21 - CONCLUSION: Trach is in good position without pneumothorax. Jair Coello MD FACR Head CT 10/08/16 0600 Signed Impressions: Service Date/Time: Saturday, October 08, 2016 05:31 - CONCLUSION: Increasing mass effect mainly associated with the right temporal process Michael Choe MD Head CT 10/03/16 0945 Signed Impressions: Service Date/Time: Monday, October 03, 2016 09:51 - CONCLUSION: 1. Multiple foci of low attenuation seen within the cerebral and cerebellar hemispheres consistent with evolving infarcts. Mykel Cantu MD Chest X-Ray 10/01/16 0000 Signed Impressions: Service Date/Time: Saturday, October 01, 2016 05:10 - CONCLUSION: Slight worsening bilateral perihilar infiltrates. KJerson Basilio MD Brain MRI 09/30/16 1659 Signed Impressions: Service Date/Time: Friday, September 30, 2016 17:42 - CONCLUSION: Numerous bilateral cerebral and cerebellar acute or subacute infarcts that are most likely embolic. Please see above. No mass or evidence of abscess. 4 mm of leftward midline shift. Small subarachnoid blood. Michael Freitas MD Renal Ultrasound 09/30/16 0000 Signed Impressions: Service Date/Time: Friday, September 30, 2016 18:45 - CONCLUSION: Ultrasound appearance of the kidneys within normal limits. Jerez catheter in the urinary bladder. Nonspecific splenomegaly incidentally noted. Michael Freitas MD Head Magnetic Resonance Angiography 09/30/16 0000 Signed Impressions: Service Date/Time: Friday, September 30, 2016 17:42 - CONCLUSION: No occlusion, aneurysm or other acute intracranial vascular abnormality demonstrated. Michael Freitas MD PHYSICAL EXAMINATION GENERAL: Sedated. On vent. HEENT: No icterus. Pupils constricted. Oropharynx: dry mucosa. NECK: No adenopathy. No swelling. LUNGS: Basilar rhonchi R.L. HEART: 2/6 systolic murmur at the left sternal border. No rubs or gallops. ABDOMEN: Bowel sounds are present, soft, nontender. EXTREMITIES: No clubbing or cyanosis or edema. Embolic purpuric lesions at the plantar aspect of the 4th and 5th toe on the left and the great toe on the right. SKIN: Resolved rash at the feet dorsum almost resolved. NEURO: Unable to assess. PSYCH: unable to assess. IMPRESSION 1. Septic shock due to Staph aureus. Persistent bacteremia. Blood culture now negative reflecting clearance. 2. Acute endocarditis. Benton aortic valve. Staph aureus. 3. Acute respiratory failure. 4. Bilateral lung infiltrates, probably secondary to septic emboli./ PNA Staph aureus. 5. 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 6. History of IV drug abuse. Unknown current use status. 7. Antibiotic allergies. 8. Recent drug rash. Medicines in weeks before admission: Clindamycin, Doxycycline, acyclovir, Adderral, Tylenol, prednisone, omeprazole, Ibuprofen. RECOMMENDATIONS: 1. Continue Oxacillin 2 grams Q 4 hours. 2. Monitor temps. 3. Monitor WBC. 4. Monitor clinical status. Discussed with Dad and sister. Nemesio Jackson MD Oct 16, 2016 11:56
--- NOTE | 2016-10-16 13:39 | HHI.CCPN ---
Subjective Remarks/Hospital Course Hospital Course: This is a 26yM who presents to the ED for altered mental status. On arrival, the patient was obtunded and emergently intubated. His roommate is with him and cannot provide much medical history. The remainder of the history is per EMS and ER documentation and my discussion with the ER physician. Per EMS and ED reports, patient was seen approximately 10 days prior to admission by an unknown physician in the clinic and given antibiotic for fever. After taking the antibiotic, the patient had a new red rash on his hands and healing on his feet. He he was seen in the emergency department 2 days prior to admission for low-grade fever and congestion, generalized weakness, lightheadedness. At that time she was given prescription for prednisone 40 mg daily for 5 days. The patient's landlord apparently found the patient today with altered mental status and called EMS. When EMS arrived, his GCS was 10. There is reports that the patient has a history of substance abuse and was recently in rehabilitation. I did talk to the roommate who confirms that the patient had recently gotten out of rehabilitation and was living with him. The remainder does say that he does not think the patient has been taking any illicit substances recently. In the emergency department, the patient was hypotensive, tachycardic. His head CT is significant for significant areas of infarction in the right frontal , temporal, and cerebellar regions as well as a small area of subarachnoid hemorrhage in the superior right parietal region. Patient has early 3 mm of midline shift as well as effacement on the right. Patient's laboratory data is significant for white blood cell count of 19,000, hemoglobin of 9.9, lactate of 3.7, creatinine 1.69, CK 372, troponin of 11.9. His urine drug screen is positive for opiates and amphetamines. I performed a bedside critical care ultrasound which demonstrated hyperdynamic left ventricular function and what appears to be aortic valve vegetations and I measured to be proximally 0.9 x 8.8 cm. This is associated with what appears to be severe aortic regurgitation. There is no pericardial effusion. Right ventricular function is preserved. A formal echo has been ordered to confirm these findings. Critical care medicine has been consulted to evaluate and manage his shock, altered mental status, multiple areas of infarction, and subarachnoid hemorrhage. Subjective: 10/01: seen and examined around 06:30am. patient on norepinephrine at 6 mcg/min , persistently in shock. patient localizes to pain x [address] extremities. repeat interval head CT with 4mm midline shift. echo with significant aortic valve vegetations and moderate aortic insufficiency. 10/02: now following commands intermittently on the RUE, still localizing in LUE , BLE. off vasopressors this morning. cultures growing staph, sensitivities to follow. 10/03: tachycardic overnight. off vasopressors this morning. not following commands this morning. still persistently febrile and wbc uptrended to 20k. 10/04: still encephalopathic. EEG negative for seizure activity. received 1 trial dose of oxacillin yesterday without evidence of allergic reaction. will let ID guide this therapy, but safe from a critical care standpoint to pursue oxacillin therapy. cultures persistently positive and wbc uptrending. still febrile. 10/05: persistent encephalopathy. but now briskly purposeful x 4. now on oxacillin. discussed with ID, and will plan to start gent induction. wbc downtrending today. still febrile. will continue surveilance cultures q48h until 2 sets negative. 10/06: neuro exam unchanged. still purposeful. blood cultures negative x 24h. will re-draw today. still persists on 1mcg/min levophed, though this has also slightly improved from yesterday. 10/07: neuro exam stable. very agitated, not following commands. blood cultures negative x 48h. off levophed. 10/08: neuro exam stable. CT with increased midline shift and persistent edema, particularly right side. back on levophed. febrile. wbc stable. 10/09: sodium not at goal, likely due to normal renal function. follows commands in the RUE, which is new. spontaneously moves BLE, LUE. wbc downtrending. hgb 7 this AM, but no other signs of end-organ damage from low o2 delivery. 10/10 failed to SBT today due to rapid shallow breathing also tachycardia. Patient found to have a significant anemia below 7 will transfuse and reattempt SBT later today 10/11: Flash pulmonary edema today requiring sedation protocol and vent manipulations. Hypoxemia to 70s. 10/12: Some improvement in gas exchange after heavy sedation and relaxant. 10/13: Tmax 100.3, requiring high dose sedation. 10/14: Leukocytosis resolving. Still way ahead on free water - increase diuretics. Prealbumin 17, adjust TFs accordingly. 10/15: deeply sedated s/p severe agitation from prior causing pulmonary edema and hypoxia. talked with family at length, not clinically improving on pathway, will require tracheostomy and PEG tube for further improvements. also still significantly + on volume. still on vasopressors, but does not clinically appear to be in significant shock. 10/16: CT scan today with new hemorrhage into right temporal stroke area with 9mm midline shift. neurosurgery aware. no significant improvements in neurologic exam. repeat echo pending. Objective Vital Signs Date Time Temp Pulse Resp B/P Pulse Ox O2 Delivery O2 Flow Rate FiO2 10/16/16 11:17 97 40 10/16/16 06:00 90 10/16/16 04:00 98.7 14 116/46 Intake and Output 10/15/16 10/15/16 10/16/16 08:00 16:00 00:00 Intake Total 1203 ml 1040 ml 1659 ml Output Total 2800 ml 3200 ml 400 ml Balance -1597 ml -2160 ml 1259 ml Result Diagram: 10/16/16 0540 10/16/16 1210 Imaging Last Impressions Head CT 09/30/16 1453 Signed Impressions: Service Date/Time: Friday, September 30, 2016 16:31 - CONCLUSION: Noncontrast CT findings of concern for multiple intra-axial masses. There is small acute subarachnoid blood present and about 3 mm of leftward midline shift. MRI of the brain with and without contrast recommended. Michael Freitas MD Chest X-Ray 09/30/16 9113 Signed Impressions: Service Date/Time: Friday, September 30, 2016 15:23 - CONCLUSION: No acute cardiopulmonary disease demonstrated. Appropriate endotracheal tube tip position. Nasogastric tube courses into the stomach, tip not included on the study. Michael Freitas MD Objective Remarks GENERAL: Young male, lying in bed, intubated, sedated, critically ill HEENT: Pupils 3 mm, equal, sluggishly reactive. Mucous membranes moist. NECK: No JVD. Trachea midline. Orotracheally intubated CHEST: Equal chest rise. PRVC 40%. vigorous cough with thin secretions. CARDIOVASCULAR: Tachycardic rate, regular rhythm. + JVD. ABDOMEN: Soft, nontender, nondistended. No guarding. MUSCULOSKELETAL: rash on feet has improved. No peripheral edema. Distal pulses 2+. NEUROLOGICAL: RASS -3. Severely agitated and not following commands when sedation lightened. 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 Now with new hemorrhagic conversion and midline shift. echo pending, but my suspicion is that his aortic insufficiency is also worse, contributing to his persistent vasopressor requirements. Overall, his prognosis continues to be poor , and likely worsening. Will discuss with neurosurgery about options, though I am not sure craniotomy is the best overall option for his care, weighing risks and benefits. We will continue with supportive care. Remains very critically ill at this time. continue ongoing diuresis. I have updated the family at length today. Plan by systems: Neurologic: Multiple acute septic CVAs Cerebral edema Small subarachnoid hemorrhage Midline shift, 9 mm Right temporal hemorrhagic conversion Metabolic encephalopathy Agitated Delirium Neurosurgery consulted, Dr. Michelle q1h neuro checks --prop/fent for goal RASS -2. --EEG 10/01- negative for seizures -- s/p failed trial of seroquel. -- melatonin to assist with sleep/wake cycles -- delirium and agitation persists - Precedex trial was a catastrophic failure - he was absolutely wild and put himself in pulmonary edema. - schedule haldol 5mg iv q4h. -- will discuss with Dr. Michelle most appropriate therapy for new hemorrhage and midline shift. Respiratory: Acute hypoxic and hypercarbic respiratory failure Vent bundle Head of bed 30 Avoid hypercarbia and hypoxia Wean FiO2 for goal SPO2 greater than 92% -- s/p trach 10/[address] Dominguez/Osiel Cardiovascular: Aortic valve endocarditis Moderate aortic insufficiency Cardiogenic shock- resolved. Septic shock- resolving. Arterial line, central line for invasive central pressure monitoring --trend CVP. Abx as described below 2d echo 10/01: aortic valve vegetations, moderate AI. remains on levophed today. continue to wean as tolerated for map > 65. -- repeat limited 2d echo pending. my concern is that his AI may have worsened leading to persistent vasopressor requirements. Renal: Acute kidney injury- resolved. Jerez for accurate I's and O's -- Strict I/Os FEN/GI: Hypermagnesemia Metabolic Alkalosis Acute protein calorie malnutritionmild Elevated LFTs Intravascular Volume Overload jevity 1.5, nutrition consult. OG tube to suction Daily BMP --Lasix 40mg iv q12h --diamox 500mg iv q8h x 3 doses. Heme/ID: Anemia, likely secondary to hemolysis from valvulopathy Infective endocarditis Septic shock- resolving. 10/01 blood cultures: MSSA --10/01 sputum culture: MSSA --10/02 blood cultures: MSSA --10/03 blood cultures: MSSA --10/04 bl cx: MSSA --10/05 bl cx: NGTD --10/06 bl cx: NGTD vancomycin, flagyl d/c 10/02. --oxacillin started 10/02 --gentamicin induction therapy per ID. started 10/05, d/c'd Infectious disease following: Dontfraid Endocrine: Hyperglycemia of critical illness -- SSI, every 6 hours, medium scale TSH 0.16, free T4 1.07, T3 < 0.5: likely sick euthyroid. Prophylaxis: GI Prophylaxis Protonix IV DVT Prophylaxis -- SCDs Holding pharmacologic DVT prophylaxis in the setting of cerebral hemorrhage Lines: 09/30 radial arterial line --09/30 left SC TLC d/c. New right SCV CVL placed 10/12. --Solitario Overall impression: He remains critically ill. Unable to wean from ventilator. Pulmonary edema persists. New cerebral hemorrhage. Clinically off pathway. This patient remains critically ill with one or more organ systems which are or may become a threat to life. I have spent in excess of 76 minutes discontinuously in the care and management of this patient. This time is exclusive of procedures, and includes, but is not limited to, evaluation of the patient, review of the medical record, discussions with family, consultants, nursing staff, or respiratory therapy, and documentation in the medical record. Yahir Dominguez MD Oct 16, 2016 13:39
--- NOTE | 2016-10-16 14:48 | PD.CONS ---
HPI History of Present Illness This is a 26 year old male who presented to hospital for AMS, has hx substance abuse, was found to have multiple CVAs, subarachnoid hemorrhabe, aortic valve endocarditis, and respiratory failure. GI has been consulted for PEG. per pt' s mother, pt is recovering drug user, sober for last 3 years and no other major medical hx. Not on blood thinners. (Anju Graves) PFSH Past Medical History Per EMR ADHD History of substance abuse, post rehabilitation Degenerative disc disease . Past Surgical History oral surgeries in past year . (Anju Graves) Coded Allergies: Hydrocodone (Verified Allergy, Unknown, Nausea/Vomiting, 10/04/16) Mother called Dentist to verify Sulfa (Verified Allergy, Unknown, 09/30/16) Toradol (Verified Allergy, Unknown, 09/30/16) Family History history of various cancers paternal, paternal aunt with aneurysm, hx [place] maternal GF . Social History no ETOH no tobacco former drug user sober 3 years (Anju Graves) Review of Systems ROS non contributory (Anju Graves) GI Exam Vitals I&O Vital Signs Date Time Temp Pulse Resp B/P Pulse Ox O2 Delivery O2 Flow Rate FiO2 10/16/16 11:17 97 40 10/16/16 10:00 102 10/16/16 08:23 98 40 10/16/16 08:00 88 10/16/16 06:00 90 10/16/16 04:39 100 10/16/16 04:17 98 40 10/16/16 04:00 90 10/16/16 04:00 98.7 90 14 116/46 98 10/16/16 04:00 50 10/16/16 02:00 94 10/16/16 01:09 99 40 10/16/16 00:00 50 10/16/16 00:00 99.7 94 14 127/46 100 10/16/16 00:00 94 10/15/16 22:00 102 10/15/16 21:58 96 40 10/15/16 20:00 99.8 102 16 134/48 100 10/15/16 20:00 50 10/15/16 20:00 100 40 10/15/16 20:00 102 10/15/16 18:00 108 10/15/16 16:00 84 10/15/16 16:00 98.5 95 18 123/57 100 10/15/16 16:00 50 10/15/16 15:28 100 40 I/O 10/15/16 10/15/16 10/15/16 10/16/16 10/16/16 10/16/16 07:00 15:00 23:00 07:00 15:00 23:00 Intake Total 1203 ml 1040 ml 1659 ml 873 ml Output Total 2800 ml 3200 ml 400 ml 3400 ml Balance -1597 ml -2160 ml 1259 ml -2527 ml Intake IV Total 794 ml 680 ml 1559 ml 833 ml Tube Feeding 309 ml 240 ml 0 ml 0 ml Tube Irrigant 100 ml 120 ml 100 ml 40 ml Output Urine Total 2800 ml 3200 ml 400 ml 3400 ml # Bowel Movements 0 0 0 0 Imaging Last Impressions Head CT 10/16/16 0000 Signed Impressions: Service Date/Time: Sunday, October 16, 2016 04:37 - CONCLUSION: Large area of edema in the right temporal lobe with now some central areas of hemorrhage clearly more impressive than on the , in particular the amount of hemorrhage present. I don't see drainable collection, it is more of an elongated curvilinear area. Small area stroke and edema in the medial left parietal lobe. Improvement in the lower left lateral parietal lesion with much less edema today Loyd Black MD Chest X-Ray 10/15/16 0000 Signed Impressions: Service Date/Time: Saturday, October 15, 2016 13:21 - CONCLUSION: Trach is in good position without pneumothorax. Jair Coello MD FACR Brain MRI 09/30/16 1659 Signed Impressions: Service Date/Time: Friday, September 30, 2016 17:42 - CONCLUSION: Numerous bilateral cerebral and cerebellar acute or subacute infarcts that are most likely embolic. Please see above. No mass or evidence of abscess. 4 mm of leftward midline shift. Small subarachnoid blood. Michael Freitas MD Renal Ultrasound 09/30/16 0000 Signed Impressions: Service Date/Time: Friday, September 30, 2016 18:45 - CONCLUSION: Ultrasound appearance of the kidneys within normal limits. Jerez catheter in the urinary bladder. Nonspecific splenomegaly incidentally noted. Michael Freitas MD Head Magnetic Resonance Angiography 09/30/16 0000 Signed Impressions: Service Date/Time: Friday, September 30, 2016 17:42 - CONCLUSION: No occlusion, aneurysm or other acute intracranial vascular abnormality demonstrated. Michael Freitas MD Laboratory Test 10/16/16 10/16/16 05:40 12:10 White Blood Count 12.7 TH/MM3 Red Blood Count 2.83 MIL/MM3 Hemoglobin 8.2 GM/DL Hematocrit 24.4 % Mean Corpuscular Volume 86.5 FL Mean Corpuscular Hemoglobin 28.9 PG Mean Corpuscular Hemoglobin 33.4 % Concent Red Cell Distribution Width 14.2 % Platelet Count 395 TH/MM3 Mean Platelet Volume 7.7 FL Sodium Level 138 MEQ/L 142 MEQ/L Potassium Level 3.7 MEQ/L Chloride Level 100 MEQ/L Carbon Dioxide Level 31.1 MEQ/L Anion Gap 7 MEQ/L Blood Urea Nitrogen 17 MG/DL Creatinine 0.77 MG/DL Estimat Glomerular Filtration 122 ML/MIN Rate Random Glucose 115 MG/DL Calcium Level 8.7 MG/DL Date/Time Procedure Status Source Growth 10/15/16 13:15 Gram Stain - Final Resulted Bronchial Washings Right Upper Lobe 10/15/16 13:15 Bronchial Culture - Preliminary Resulted Gram Negative Bhavin 10/15/16 13:15 Fungal Smear - Final Resulted Bronchial Washings Right Upper Lobe NO FUNGAL ELEMENTS SEEN. 10/15/16 13:15 Fungal Culture Resulted Bronchial Washings Right Upper Lobe Pending 10/15/16 13:15 Acid Fast Stain Worksheet Bronchial Washings Right Upper Lobe Pending 10/15/16 13:15 Mycobacterial Culture Worksheet Bronchial Washings Right Upper Lobe Pending Physical Examination HEENT: normocephalic; atraumatic; no jaundice. CHEST: coarse CARDIAC: tachy ABDOMEN: Soft, nondistended, no hepatosplenomegaly; bowel sounds are present in all four quadrants. EXTREMITIES: No clubbing, cyanosis, or edema. SKIN: peeling skin crow hands, feet; no rash; no jaundice. [employer]ER [employer]IVER: sedated on vent (Anju Graves) Assessment and Plan Plan ASSESSMENT - dysphagia - need for prolonged ventilation, multiple CVAs, sub arachnoid hemorrhage, aortic valve endocarditis. D/w mother, she wants to proceed with PEG. PLAN - EGD with peg placement tomorrow - NPO after midnight - ok to resume TF today - obtain consents - TF per nutrition This pt seen by myself and Dr Gomez and this note is written on his behalf ( Anju Graves) Physician Comments Seen and examined, plan for EGD / PEG placement in AM. Will follow up with you. (Maria Elena Gomez MD) Anju Graves Oct 16, 2016 14:48 Maria Elena Gomez MD Oct 16, 2016 17:23
[2016-10-16] MEDS: ACETAMINOPHEN 325 MG TAB PO PRN (14:58)
[2016-10-16] MEDS: MELATONIN 5 MG TAB PO SCH (19:48)
[2016-10-16] MEDS: 3% SALINE INJ 500 ML IV SCH (19:50)
[2016-10-16 20:25] LABS: BACTERIA, URINE RARE /hpf; BLOOD, URINE SMALL (NEG); GLUCOSE,URINE NEG (NEG); KETONE, URINE NEG (NEG); MUCUS URINE FEW /lpf (OCC); NITRITE,URINE NEG (NEG); PH, URINE 7.5 (5.0-8.5); SQUAMOUS EPITHELIAL CELL URINE <1 /hpf (0-5); URINE COLOR YELLOW (YELLW/STRAW)
[2016-10-16 20:26] LABS: COMMENT (UR) CATH-CULTURE IND; CULTURE IF INDICATED CATH CULTURE IND
[2016-10-17] VITALS (18 sets, daily range): BP systolic 128–138; BP diastolic 48–50; PULSE 92–120; RESP 14–21; TEMP 98.6–100.6; O2SAT 99–100
[2016-10-17] MEDS: OXACILLIN INJ 2 GM in SODIUM CHLORIDE 0.9% INJ 100 ML IV SCH ×4 (01:16→18:59)
[2016-10-17] MEDS: PROPOFOL 1000 MG/100 ML INJ 100 ML IV SCH ×4 (01:16→17:52)
[2016-10-17] MEDS: HALOPERIDOL LACTATE 5 MG/ML AMP IV SCH ×5 (04:00→20:38)
[2016-10-17] MEDS: CHLORHEXIDINE GLUCONATE 2 % 1 PACK (2 CLOTHS) TOP SCH (04:00)
[2016-10-17] MEDS: NOREPINEPHRINE INJ 4 MG in SODIUM CHLOR 0.9% 250 ML INJ 250 ML IV SCH ×2 (05:12→20:38)
[2016-10-17] MEDS: 3% SALINE INJ 500 ML IV SCH ×2 (05:15→17:53)
[2016-10-17 06:25] LABS: HEMATOCRIT 22.9 % (39.0-51.0); MEAN CELL VOLUME 85.7 FL (80.0-100.0); MEAN CORPUSCULAR HEMOGLOBIN 29.1 PG (27.0-34.0); MEAN CORPUSCULAR HGB CONC 33.9 % (32.0-36.0); PLATELET COUNT 363 TH/MM3 (150-450); RED BLOOD COUNT 2.68 MIL/MM3 (4.50-5.90); RED CELL DISTRIBUTION WIDTH 14.1 % (11.6-17.2); REVIEW FLAG FINAL; WHITE BLOOD COUNT 14.3 TH/MM3 (4.0-11.0)
[2016-10-17 07:08] LABS: BICARBONATE 25.6 MEQ/L (21.0-32.0); POTASSIUM 3.4 MEQ/L (3.5-5.1)
[2016-10-17] MEDS: CHLORHEXIDINE 0.12% (ORAL KIT) 15 ML CUP MT SCH ×2 (08:00→20:39)
[2016-10-17] MEDS: PANTOPRAZOLE SODIUM 40 MG VIAL IV SCH (08:43)
[2016-10-17] MEDS: SODIUM CHLORIDE 0.9% FLUSH 10 ML FLUSH IV FLUSH SCH ×2 (08:43→20:39)
[2016-10-17] MEDS: DOCUSATE SODIUM 100 MG/10 ML UDC G-TUBE SCH ×2 (08:43→20:38)
[2016-10-17] MEDS: METOPROLOL TARTRATE 25 MG TAB PO SCH ×2 (08:44→20:39)
[2016-10-17] MEDS: BENEPROTEIN POWDER 1 PACK G-TUBE SCH ×3 (08:45→18:00)
[2016-10-17] MEDS: ARTIFICIAL TEARS OPTH SOLN 15 ML BTL EACH EYE SCH ×3 (08:45→18:00)
--- NOTE | 2016-10-17 08:45 | HHI.CCPN ---
Subjective Remarks/Hospital Course Hospital Course: This is a 26yM who presents to the ED for altered mental status. On arrival, the patient was obtunded and emergently intubated. His roommate is with him and cannot provide much medical history. The remainder of the history is per EMS and ER documentation and my discussion with the ER physician. Per EMS and ED reports, patient was seen approximately 10 days prior to admission by an unknown physician in the clinic and given antibiotic for fever. After taking the antibiotic, the patient had a new red rash on his hands and healing on his feet. He he was seen in the emergency department 2 days prior to admission for low-grade fever and congestion, generalized weakness, lightheadedness. At that time she was given prescription for prednisone 40 mg daily for 5 days. The patient's landlord apparently found the patient today with altered mental status and called EMS. When EMS arrived, his GCS was 10. There is reports that the patient has a history of substance abuse and was recently in rehabilitation. I did talk to the roommate who confirms that the patient had recently gotten out of rehabilitation and was living with him. The remainder does say that he does not think the patient has been taking any illicit substances recently. In the emergency department, the patient was hypotensive, tachycardic. His head CT is significant for significant areas of infarction in the right frontal , temporal, and cerebellar regions as well as a small area of subarachnoid hemorrhage in the superior right parietal region. Patient has early 3 mm of midline shift as well as effacement on the right. Patient's laboratory data is significant for white blood cell count of 19,000, hemoglobin of 9.9, lactate of 3.7, creatinine 1.69, CK 372, troponin of 11.9. His urine drug screen is positive for opiates and amphetamines. I performed a bedside critical care ultrasound which demonstrated hyperdynamic left ventricular function and what appears to be aortic valve vegetations and I measured to be proximally 0.9 x 8.8 cm. This is associated with what appears to be severe aortic regurgitation. There is no pericardial effusion. Right ventricular function is preserved. A formal echo has been ordered to confirm these findings. Critical care medicine has been consulted to evaluate and manage his shock, altered mental status, multiple areas of infarction, and subarachnoid hemorrhage. Subjective: 10/01: seen and examined around 06:30am. patient on norepinephrine at 6 mcg/min , persistently in shock. patient localizes to pain x [address] extremities. repeat interval head CT with 4mm midline shift. echo with significant aortic valve vegetations and moderate aortic insufficiency. 10/02: now following commands intermittently on the RUE, still localizing in LUE , BLE. off vasopressors this morning. cultures growing staph, sensitivities to follow. 10/03: tachycardic overnight. off vasopressors this morning. not following commands this morning. still persistently febrile and wbc uptrended to 20k. 10/04: still encephalopathic. EEG negative for seizure activity. received 1 trial dose of oxacillin yesterday without evidence of allergic reaction. will let ID guide this therapy, but safe from a critical care standpoint to pursue oxacillin therapy. cultures persistently positive and wbc uptrending. still febrile. 10/05: persistent encephalopathy. but now briskly purposeful x 4. now on oxacillin. discussed with ID, and will plan to start gent induction. wbc downtrending today. still febrile. will continue surveilance cultures q48h until 2 sets negative. 10/06: neuro exam unchanged. still purposeful. blood cultures negative x 24h. will re-draw today. still persists on 1mcg/min levophed, though this has also slightly improved from yesterday. 10/07: neuro exam stable. very agitated, not following commands. blood cultures negative x 48h. off levophed. 10/08: neuro exam stable. CT with increased midline shift and persistent edema, particularly right side. back on levophed. febrile. wbc stable. 10/09: sodium not at goal, likely due to normal renal function. follows commands in the RUE, which is new. spontaneously moves BLE, LUE. wbc downtrending. hgb 7 this AM, but no other signs of end-organ damage from low o2 delivery. 10/10 failed to SBT today due to rapid shallow breathing also tachycardia. Patient found to have a significant anemia below 7 will transfuse and reattempt SBT later today 10/11: Flash pulmonary edema today requiring sedation protocol and vent manipulations. Hypoxemia to 70s. 10/12: Some improvement in gas exchange after heavy sedation and relaxant. 10/13: Tmax 100.3, requiring high dose sedation. 10/14: Leukocytosis resolving. Still way ahead on free water - increase diuretics. Prealbumin , adjust TFs accordingly. 10/15: deeply sedated s/p severe agitation from prior causing pulmonary edema and hypoxia. talked with family at length, not clinically improving on pathway, will require tracheostomy and PEG tube for further improvements. also still significantly + on volume. still on vasopressors, but does not clinically appear to be in significant shock. 10/16: CT scan today with new hemorrhage into right temporal stroke area with 9mm midline shift. neurosurgery aware. no significant improvements in neurologic exam. repeat echo pending. 10/17: Neuro exam remains unchanged. Per Dr. Michelle CT from 10/16/16 showed small amount of new hemorrhage circumferentially along the area of the previous right temporal infarct. There is increased right temporal edema and mass effect but relatively focal primarily along the ventricle, and there is not significant compression along the brainstem or cisterns. Continued medical management, increased Na 145-150. Neuro exam remains unchanged Tmax 100.3, white count increased to 14.3. Enterobacter in BAL 10/15, start Levofloxacin Objective Vital Signs Date Time Temp Pulse Resp B/P Pulse Ox O2 Delivery O2 Flow Rate FiO2 10/17/16 07:55 100 40 10/17/16 06:00 120 10/17/16 04:00 100.6 19 138/50 Intake and Output 10/16/16 10/16/16 10/17/16 08:00 16:00 00:00 Intake Total 873 ml 979 ml 1105 ml Output Total 3400 ml 2500 ml 450 ml Balance -2527 ml -1521 ml 655 ml Result Diagram: 10/17/16 0615 10/17/16 0615 Other Results Microbiology Date/Time Procedure Status Source Growth 10/15/16 13:15 Gram Stain - Final Complete Bronchial Washings Right Upper Lobe 10/15/16 13:15 Bronchial Culture - Final Complete Enterobacter Cloacae Imaging Last Impressions Head CT 09/30/16 5786 Signed Impressions: Service Date/Time: Friday, September 30, 2016 16:31 - CONCLUSION: Noncontrast CT findings of concern for multiple intra-axial masses. There is small acute subarachnoid blood present and about 3 mm of leftward midline shift. MRI of the brain with and without contrast recommended. Michael Freitas MD Chest X-Ray 09/30/16 [id number] Signed Impressions: Service Date/Time: Friday, September 30, 2016 15:23 - CONCLUSION: No acute cardiopulmonary disease demonstrated. Appropriate endotracheal tube tip position. Nasogastric tube courses into the stomach, tip not included on the study. Michael Freitas MD Objective Remarks GENERAL: Young male, lying in bed, intubated, sedated, critically ill HEENT: Pupils 3 mm, equal, sluggishly reactive. Mucous membranes moist. NECK: No JVD. Trachea midline. Orotracheally intubated CHEST: Equal chest rise. PRVC 40%. vigorous cough with thin secretions. CARDIOVASCULAR: Tachycardic rate, regular rhythm. + JVD. ABDOMEN: Soft, nontender, nondistended. No guarding. MUSCULOSKELETAL: rash on feet has improved. No peripheral edema. Distal pulses 2+. NEUROLOGICAL: WING. 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 Now with new hemorrhagic conversion and midline shift. Overall, his prognosis continues to be poor, and likely worsening. We will continue with supportive care. Remains very critically ill at this time. continue ongoing diuresis. I have updated the family at length today. Plan by systems: Neurologic: Multiple acute septic CVAs Cerebral edema, Midline shift, 9 mm Small subarachnoid hemorrhage Right temporal hemorrhagic conversion Metabolic encephalopathy Agitated Delirium Neurosurgery, Dr. Michelle recommends continued medical management with hyperosm therapy q1h neuro checks --prop/fent for goal RASS -2. --EEG 10/01- negative for seizures -- s/p failed trial of seroquel. -- melatonin to assist with sleep/wake cycles -- delirium and agitation persists - Precedex trial was a catastrophic failure - he was absolutely wild and put himself in pulmonary edema. - schedule haldol 5mg iv [id number] to q6 Respiratory: Acute hypoxic and hypercarbic respiratory failure Vent bundle Head of bed 30 Avoid hypercarbia and hypoxia Wean FiO2 for goal SPO2 greater than 92% -- s/p trach 10/[address] Dominguez/Osiel start CPAP daily Cardiovascular: Aortic valve endocarditis Moderate aortic insufficiency Septic,cardiogenic shock Arterial line, central line for invasive central pressure monitoring --trend CVP. Abx as described below 2d echo 10/01: aortic valve vegetations, moderate AI. remains on levophed . continue to wean as tolerated for map > 65. -- repeat limited 2d echo to evaluate worsening AI leading to persistent vasopressor requirements. Renal: Acute kidney injury- resolved. Jerez for accurate I's and O's -- Strict I/Os FEN/GI: Hypermagnesemia Metabolic Alkalosis Acute protein calorie malnutritionmild Elevated LFTs Intravascular Volume Overload jevity 1.5, nutrition consult. Daily BMP --Lasix 40mg iv q12h --diamox 500mg iv q8h x 3 doses. Heme/ID: Anemia, likely secondary to hemolysis from valvulopathy Infective endocarditis Septic shock- resolving. 10/01 blood cultures: MSSA --10/01 sputum culture: MSSA --10/02 blood cultures: MSSA --10/03 blood cultures: MSSA --10/04 bl cx: MSSA --10/05 bl cx: NGTD --10/06 bl cx: NGTD --10/15 Enterobacter in BAL vancomycin, flagyl d/c 10/02. --oxacillin started 10/02 -- Start levofloxacin to cover Enterobacter 10/17 --gentamicin induction therapy per ID. started 10/05, d/c'd Infectious disease following: Dontfraid Endocrine: Hyperglycemia of critical illness -- SSI, every 6 hours, medium scale TSH 0.16, free T4 1.07, T3 < 0.5: likely sick euthyroid. Prophylaxis: GI Prophylaxis Protonix IV DVT Prophylaxis -- SCDs Holding pharmacologic DVT prophylaxis in the setting of cerebral hemorrhage Lines: 09/30 radial arterial line --09/30 left SC TLC d/c. New right SCV CVL placed 10/12. --Solitario Overall impression: He remains critically ill. Unable to wean from ventilator. Pulmonary edema persists. New cerebral hemorrhage. Clinically off pathway. This patient remains critically ill with one or more organ systems which are or may become a threat to life. I have spent in excess of 45 minutes discontinuously in the care and management of this patient. This time is exclusive of procedures, and includes, but is not limited to, evaluation of the patient, review of the medical record, discussions with family, consultants, nursing staff, or respiratory therapy, and documentation in the medical record. Mary Rodriguez MD Oct 17, 2016 08:44 discontinuously in the care and management of this patient. This time is exclusive of procedures, and includes, but is not limited to, evaluation of the patient, review of the medical record, discussions with family, consultants, nursing staff, or respiratory therapy, and documentation in the medical record. Mary Rodriguez MD Oct 17, 2016 08:44
[2016-10-17] MEDS: LEVOFLOXACIN 750 MG PREMIX INJ 150 ML IV SCH (09:49)
[2016-10-17] MEDS: FUROSEMIDE 40 MG/4 ML VIAL IV PUSH SCH (10:47)
[2016-10-17] MEDS: POTASSIUM CHLOR 40 MEQ PREMIX 100 ML IV PRN ×2 (10:47→21:44)
--- NOTE | 2016-10-17 11:32 | HHI.HCPN ---
Reason for visit a. To assist with evaluation and management of symptoms including:dyspnea, encephalopathy, agitation, constipation b. To assist medical decision maker(s) with: better understanding of current medical conditions; weighing benefits/burdens of medical treatment options; making medical treatment decisions. Subjective/Interval History s/p trach2 days ago, scheduled for PEG placement today. Cont to have low grade fevers, repeat urine, blood culture sent yesterday. Bronchial washings pending; initial +Enterobacter, Levaquin added by clinical office technician. Remains on oxacillin per ID. Planned for follow up CT brain in 2-3 days per neurosurgery, cont medical tx with increasing sodium via hypertonic saline as needed. Sedation decreased some from yesterday for neuro checks, reported to localize to RUE, withdraw LUE , BLE. +spont eye opening, no tracking reported. This am on diprivan 30mcgs/kg/ min, fentanyl 150mcgs hr. Remains on levophed 6mcgs. 2D echo not resulted yet, per discussion w critical care, EF is preserved/near normal, significant vegetation persists. Pt seen in room, sister, father at bedside, dual visit w Nora Dominguez TECHNICAL ASSISTANT palliative director social service. Review current clinical condition, assessment,recent diagnostics, treatments in place, overall prognosis. Review pt remains at risk for ongoing complications/setbacks r/t current critical conditions. They indicate they were able to speak w neurosurgery yesterday RE new CT findings.All questions answered. Goals remain aggressive, to cont supportive treatments in hope that pt can recover. D/w primary RN, critical care Dr Rodriguez. . Family/friend interactions * see above. . Advance Directives Living Will: Never completed Health Care Surrogate: Never completed Durable Power of Business Liaison Officer: Completed, but not made available (mother reports has POA, not clear if this includes medical decision making (SW has reviewed, this does NOT include healthcare decision making) ) Objective Vital Signs Date Time Temp Pulse Resp B/P Pulse Ox O2 Delivery O2 Flow Rate FiO2 10/17/16 07:55 100 40 10/17/16 06:00 120 10/17/16 04:07 99 40 10/17/16 04:00 50 10/17/16 04:00 100.6 110 19 138/50 100 10/17/16 04:00 110 10/17/16 02:00 116 10/17/16 00:07 100 40 10/17/16 00:00 100.3 107 16 128/48 100 10/17/16 00:00 50 10/17/16 00:00 107 10/16/16 22:00 98 10/16/16 20:28 98 40 10/16/16 20:00 104 10/16/16 20:00 50 10/16/16 20:00 99.2 104 16 150/56 99 10/16/16 18:00 101 10/16/16 16:00 100.2 98 15 110/42 97 10/16/16 16:00 98 10/16/16 16:00 50 10/16/16 14:00 101 10/16/16 12:00 100.0 107 17 100/40 96 10/16/16 12:00 50 10/16/16 12:00 107 Intake & Output 10/17/16 10/17/16 07:00 19:00 Intake Total 2272 ml Output Total 2800 ml Balance -528 ml Intake IV Total 1918 ml Tube Feeding 224 ml Tube Irrigant 130 ml Output Urine Total 2800 ml # Bowel Movements 0 Physical Exam CONSTITUTIONAL/GENERAL: This is an adequately nourished patient, sedated, slight spont eye opening TUBES/LINES/DRAINS: Rt SC central line.trach, NGT, carrera catheter , SCDs SKIN: No jaundice, or lesions. Embolic purpuric lesions on LT great toe. CARDIOVASCULAR: regular rhythm without murmur. No peripheral edema, periph pulses palp RESPIRATORY/CHEST: Symmetric, unlabored respirations on mech vent,tracheostomy midline, spont strong cough w any stimuli. Coarse rhonchi throughout lungs, breath sounds equal bilat GASTROINTESTINAL: Abdomen soft,flat, nondistended. No palpable masses. No guarding. TF held for PEG procedure. BS hypoactive. GENITOURINARY: Without palpable bladder distension. Carrera catheter in place clear dark yellow urine. NEUROLOGICAL: sedated on mech vent.(Fentanyl, Diprivan) appears calm with no stimuli. Eyes open spont. No tracking. + localizes/moves to light touch RUE. LUE with grimace, withdrawal to pain. +withdrawal BLE to pain. PSYCHIATRIC: -- limited assess due to condition/sedation. . . Diagnostic Tests Laboratory Laboratory Tests Test 10/15/16 10/15/16 10/16/16 10/16/16 11:05 13:15 05:40 12:10 White Blood Count 12.3 TH/MM3 12.7 TH/MM3 (4.0-11.0) (4.0-11.0) Red Blood Count 2.91 MIL/MM3 2.83 MIL/MM3 (4.50-5.90) (4.50-5.90) Hemoglobin 8.5 GM/DL 8.2 GM/DL (13.0-17.0) (13.0-17.0) Hematocrit 24.6 % 24.4 % (39.0-51.0) (39.0-51.0) Mean Corpuscular Volume 84.8 FL 86.5 FL (80.0-100.0) (80.0-100.0) Mean Corpuscular Hemoglobin 29.1 PG 28.9 PG (27.0-34.0) (27.0-34.0) Mean Corpuscular Hemoglobin 34.4 % 33.4 % Concent (32.0-36.0) (32.0-36.0) Red Cell Distribution Width 14.5 % 14.2 % (11.6-17.2) (11.6-17.2) Platelet Count 413 TH/MM3 395 TH/MM3 (150-450) (150-450) Mean Platelet Volume 7.6 FL 7.7 FL (7.0-11.0) (7.0-11.0) Sodium Level 139 MEQ/L 138 MEQ/L 142 MEQ/L (136-145) (136-145) (136-145) Potassium Level 3.8 MEQ/L 3.7 MEQ/L (3.5-5.1) (3.5-5.1) Chloride Level 99 MEQ/L 100 MEQ/L (98-107) (98-107) Carbon Dioxide Level 34.0 MEQ/L 31.1 MEQ/L (21.0-32.0) (21.0-32.0) Anion Gap 6 MEQ/L (5-15) 7 MEQ/L (5-15) Blood Urea Nitrogen 16 MG/DL (7-18) 17 MG/DL (7-18) Creatinine 0.62 MG/DL 0.77 MG/DL (0.60-1.30) (0.60-1.30) Estimat Glomerular Filtration 157 ML/MIN 122 ML/MIN Rate (>89) (>89) Random Glucose 124 MG/DL 115 MG/DL (74-106) (74-106) Calcium Level 8.7 MG/DL 8.7 MG/DL (8.5-10.1) (8.5-10.1) Prealbumin 24 MG/DL (20-40) Procalcitonin 0.75 ng/mL (0.00-0.50) Bronchoalveolar Lavage WBC 5500 /MM3 Bronchoalveolar Lavage RBC 9000 /MM3 Bronchoalveolar Lavage 98 % Neutrophils Bronchoalveolar Lavage 2 % Lymphocytes Bronchoalveolar Lavage Diff Comment Lavage Fluid Total Volume 15.0 ML Lavage Fluid Total WBC Count 82.000 MILLION (4.700-7.100) Test 10/16/16 10/16/16 10/17/16 10/17/16 19:35 20:05 00:15 06:15 Sodium Level 140 MEQ/L 145 MEQ/L 147 MEQ/L (136-145) (136-145) (136-145) Urine Color YELLOW (YELLW/STRAW) Urine Turbidity CLOUDY (CLEAR) Urine pH 7.5 (5.0-8.5) Urine Specific [place] 1.019 (1.002-1.035) Urine Protein TRACE mg/dL (NEG-TRACE) Urine Glucose (UA) NEG mg/dL (NEG) Urine Ketones NEG mg/dL (NEG) Urine Occult Blood SMALL (NEG) Urine Nitrite NEG (NEG) Urine Bilirubin NEG (NEG) Urine Urobilinogen 4.0 MG/DL (LESS THAN 2.0) Urine Leukocyte Esterase SMALL (NEG) Urine RBC 94 /hpf (0-3) Urine WBC 14 /hpf (0-5) Urine Squamous Epithelial <1 /hpf (0-5) Cells Urine Amorphous Sediment SMALL Urine Bacteria RARE /hpf (NONE) Urine Mucus FEW /lpf (OCC) Microscopic Urinalysis Comment CATH-CULTURE IND White Blood Count 14.3 TH/MM3 (4.0-11.0) Red Blood Count 2.68 MIL/MM3 (4.50-5.90) Hemoglobin 7.8 GM/DL (13.0-17.0) Hematocrit 22.9 % (39.0-51.0) Mean Corpuscular Volume 85.7 FL (80.0-100.0) Mean Corpuscular Hemoglobin 29.1 PG (27.0-34.0) Mean Corpuscular Hemoglobin 33.9 % Concent (32.0-36.0) Red Cell Distribution Width 14.1 % (11.6-17.2) Platelet Count 363 TH/MM3 (150-450) Mean Platelet Volume 7.4 FL (7.0-11.0) Potassium Level 3.4 MEQ/L (3.5-5.1) Chloride Level 113 MEQ/L (98-107) Carbon Dioxide Level 25.6 MEQ/L (21.0-32.0) Anion Gap 8 MEQ/L (5-15) Blood Urea Nitrogen 24 MG/DL (7-18) Creatinine 0.75 MG/DL (0.60-1.30) Estimat Glomerular Filtration 126 ML/MIN Rate (>89) Random Glucose 129 MG/DL (74-106) Calcium Level 8.1 MG/DL (8.5-10.1) Result Diagram: 10/17/16 0615 10/17/16 0615 Microbiology Microbiology Date/Time Procedure Status Source Growth 10/15/16 13:15 Gram Stain - Final Complete Bronchial Washings Right Upper Lobe 10/15/16 13:15 Bronchial Culture - Final Complete Enterobacter Cloacae 10/15/16 13:15 Acid Fast Stain Worksheet Bronchial Washings Right Upper Lobe Pending 10/15/16 13:15 Mycobacterial Culture Worksheet Bronchial Washings Right Upper Lobe Pending 10/15/16 13:15 Fungal Smear - Final Resulted Bronchial Washings Right Upper Lobe NO FUNGAL ELEMENTS SEEN. 10/15/16 13:15 Fungal Culture Resulted Bronchial Washings Right Upper Lobe Pending 10/16/16 19:45 Gram Stain - Final Resulted Sputum Endotracheal 10/16/16 19:45 Sputum Culture Resulted Sputum Endotracheal Pending 10/16/16 20:05 Urine Culture Received Urine Catheterized Urine Pending 10/16/16 20:51 Aerobic Blood Culture - Preliminary Resulted Blood Peripheral NO GROWTH IN 1 DAY 10/16/16 20:51 Anaerobic Blood Culture - Preliminary Resulted Blood Peripheral NO GROWTH IN 1 DAY 10/16/16 21:00 Aerobic Blood Culture - Preliminary Resulted Blood Peripheral NO GROWTH IN 1 DAY 10/16/16 21:00 Anaerobic Blood Culture - Preliminary Resulted Blood Peripheral NO GROWTH IN 1 DAY Imaging Last Impressions Head CT 10/16/16 0000 Signed Impressions: Service Date/Time: Sunday, October 16, 2016 04:37 - CONCLUSION: Large area of edema in the right temporal lobe with now some central areas of hemorrhage clearly more impressive than on the , in particular the amount of hemorrhage present. I don't see drainable collection, it is more of an elongated curvilinear area. Small area stroke and edema in the medial left parietal lobe. Improvement in the lower left lateral parietal lesion with much less edema today Loyd Black MD Chest X-Ray 10/15/16 0000 Signed Impressions: Service Date/Time: Saturday, October 15, 2016 13:21 - CONCLUSION: Trach is in good position without pneumothorax. Jair Coello MD FACR Brain MRI 09/30/16 1659 Signed Impressions: Service Date/Time: Friday, September 30, 2016 17:42 - CONCLUSION: Numerous bilateral cerebral and cerebellar acute or subacute infarcts that are most likely embolic. Please see above. No mass or evidence of abscess. 4 mm of leftward midline shift. Small subarachnoid blood. Michael Freitas MD Renal Ultrasound 09/30/16 0000 Signed Impressions: Service Date/Time: Friday, September 30, 2016 18:45 - CONCLUSION: Ultrasound appearance of the kidneys within normal limits. Carrera catheter in the urinary bladder. Nonspecific splenomegaly incidentally noted. Michael Freiats MD Head Magnetic Resonance Angiography 09/30/16 0000 Signed Impressions: Service Date/Time: Friday, September 30, 2016 17:42 - CONCLUSION: No occlusion, aneurysm or other acute intracranial vascular abnormality demonstrated. Michael Freitas MD Procedures 09/30left subclavian central line, left radial arterial line 10/12-right subclavian central line 10/15-tracheostomy, bronchoscopy Assessment and Plan Disease Oriented Problem List: (1) Intracranial hemorrhage (2) Sepsis (3) Elevated troponin (4) Subarachnoid hemorrhage (5) Cerebral edema (6) Metabolic encephalopathy (7) Acute respiratory failure with hypoxia (8) Septic shock due to Staphylococcus aureus (9) Rash and nonspecific skin eruption (10) Substance abuse Symptom Scale: (1) Dyspnea 0-10 Scale: Unable to quantify (2) Encephalopathy 0-10 Scale: Unable to quantify (3) Agitation 0-10 Scale: Unable to quantify (4) Constipation 0-10 Scale: Unable to quantify Pertinent Non-Medical Issues Psychosocial:originally from [place], lived in [place] since . HS education. Was incarcerated and then in drug rehabilitation in [facility] region. 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 Father (parents ) lived in [place] with support from family there. Supported by local friends, coworkers, apartment landlord. Spiritual:believes in God, no particular affiliation. would want ongoing rn medical surgical support. Legal: Patient is not able to participate in decision-making due to clinical condition. He is not . Per [place] statutes his parents would be legal decision makers, mother is serving as primary supported by his sister and father. She reports she has POA paperwork. Ethical issues impacting care: Important Contacts mother Felicita Roberts [phone] (HCP) sister Elizabeth Rios [phone] father Pradeep Rios [phone] . 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 He is currently in multiorgan failure, critically ill. Possible he can recover with prolonged resuscitation , prolonged ICU course. Remains very high risk for further complications and setbacks though possible he can survive this initial injury/ illness. Code Status: Full Code Plan * Legal decision maker: Patient is not able to participate in decision-making due to clinical condition. He is not . Per [place] statutes his parents would be legal decision makers, mother is serving as primary supported by his sister and father. She reports she has POA paperwork. (palliative SW reviewed and indicates that it does not include medical decision-making) * Goals: Ongoing meetings with patient family, daily or as needed. Patient sister appears to have a reasonable understanding of conditions, prognosis. Patient mother appears to have a very simple understanding of conditions and prognosis. Father also seems to have a very simple understanding of conditions and prognosis. Goals remain aggressive. Family has agreed to trach /PEG. Patient's mother is hoping for a miracle and wants to continue whatever measures available to help patient recover. They are open to ongoing to conversations as clinical course evolves. * CODE STATUS: full SYMPTOMS: * Dyspnea- intubated for AMS. remains on mech vent; sedated, no tachypnea observed or reported while on sedative- when lightened agitation/tachypnea ; ongoing significant agitation, and coughing/respiratory distress requiring Today breathing comfortably on propofol, fentanyl. CXR 10/15= moderate coarse interstitial changes in both lungs, right greater than left, with a well placed tracheostomy and no pneumothorax. +Enterobacter bronchial washing, levaquin added * Agitation- hx substance abuse; hx ADD, on adderall.+embolic CVA,+hemorrhage. currently sedated with diprivan, fentanyl, +agitation when sedation lightened; nursing titrating/ lightening as tolerated * Encephalopathy- multifactorial-- +sepsis, embolic CVA, + hemorrhage, hx substance abuse, EEG neg seizure ; repeat CT brain 10/16= Large area of edema in the right temporal lobe with now some central areas of hemorrhage clearly more impressive than on the , in particular the amount of hemorrhage present. Small area stroke and edema in the medial left parietal lobe. Improvement in the lower left lateral parietal lesion with much less edema today . No surgical interventions per neuro, cont medical management , increase sodium level w hypertonic saline as needed * Constipation - BM 10/12. On docusate daily and senna when necessary. Would recommend changing senna to scheduled- d/w nsg to admin PRN Senna today; was not admin yesterday Palliative care will continue to follow during hospital course as condition evolves, to assist patient/decision-maker with understanding of medical conditions, weighing benefits/burdens of treatment options, for clarification of goals of treatment. Additionally will assist with any symptoms of palliative concern. . Time Spent Total Floor Time (mins): 30 Attestation To help prompt me to consider important information that might be impacting today's encounter and assessment, information from prior notes written by myself or my colleagues may have been "brought forward" into today's note. My signature on this note, however, is an attestation that I personally performed the exam, history, and/or decision-making noted today, and, unless otherwise indicated, the interactions with patient, family, and staff as well as the review of records all occurred today. I also attest that the listed assessment and stated plan reflect my best clinical judgment today based on the combination of historical information, prior notes, and today's exam/ interactions. When time spent is documented, it refers only to time spent today by the signer, or if indicated, combined time spent today by collaborating physician/nurse practitioner. Sandy Lui Oct 17, 2016 11:31
--- NOTE | 2016-10-17 12:30 | HHI.IDPN ---
Note Infectious Disease Note Notes reviewed. Discussed with RN. Patient is on the vent. 40% FIO2. Has eyes open. Moving RUE. Reportedly to command per RN. On Levophed 7mcg. Has trach place 10/15. Low grade temps. PEG planned today. WBC elevated. Sputum - Bronch washing 10/15 has Enterobacter. Sputum endotracheal - 10/16 - gram neg bhavin. Blood cultures 09/30 Staph aureus in 5 of 6 bottles. Blood culture 10/02 positive. staph aureus. Blood culture 10/03 positive. staph aureus. Blood culture 10/04 positive. staph aureus. Blood culture 10/05 negative. Blood culture 10/06 negative. Patient was brought to the emergency department with altered mental status. Was evaluated for rash at preceding ED evaluation 2 days prior. PAST MEDICAL HISTORY 1. Substance abuse. The patient was in rehabilitation 1 year ago. 2. ADHD. 3. Degenerative disk disease. ALLERGIES Reportedly the patient is allergic to SULFA, PENICILLIN, TORADOL, CODEINE. ANTIBIOTICS: Oxacillin. Levaquin. OBJECTIVE: Vital Signs Date Time Temp Pulse Resp B/P Pulse Ox O2 Delivery O2 Flow Rate FiO2 10/17/16 12:15 100 40 10/17/16 12:15 40 10/17/16 07:55 100 40 10/17/16 06:00 120 10/17/16 04:07 99 40 10/17/16 04:00 50 10/17/16 04:00 100.6 110 19 138/50 100 10/17/16 04:00 110 10/17/16 02:00 116 10/17/16 00:07 100 40 10/17/16 00:00 100.3 107 16 128/48 100 10/17/16 00:00 50 10/17/16 00:00 107 10/16/16 22:00 98 10/16/16 20:28 98 40 10/16/16 20:00 104 10/16/16 20:00 50 10/16/16 20:00 99.2 104 16 150/56 99 10/16/16 18:00 101 10/16/16 16:00 100.2 98 15 110/42 97 10/16/16 16:00 98 10/16/16 16:00 50 10/16/16 14:00 101 10/16/16 10/16/16 10/17/16 15:00 23:00 07:00 Intake Total 979 ml 1105 ml 1167 ml Output Total 2500 ml 450 ml 2350 ml Balance -1521 ml 655 ml -1183 ml Intake IV Total 979 ml 841 ml 1077 ml Tube Feeding 164 ml 60 ml Tube Irrigant 100 ml 30 ml Output Urine Total 2500 ml 450 ml 2350 ml # Bowel Movements 0 0 Laboratory Tests Test 10/16/16 10/17/16 05:40 06:15 White Blood Count 12.7 TH/MM3 14.3 TH/MM3 Red Blood Count 2.83 MIL/MM3 2.68 MIL/MM3 Hemoglobin 8.2 GM/DL 7.8 GM/DL Hematocrit 24.4 % 22.9 % Mean Corpuscular Volume 86.5 FL 85.7 FL Mean Corpuscular Hemoglobin 28.9 PG 29.1 PG Mean Corpuscular Hemoglobin 33.4 % 33.9 % Concent Red Cell Distribution Width 14.2 % 14.1 % Platelet Count 395 TH/MM3 363 TH/MM3 Mean Platelet Volume 7.7 FL 7.4 FL Laboratory Tests Test 10/16/16 10/16/16 10/16/16 10/17/16 05:40 12:10 19:35 00:15 Sodium Level 138 MEQ/L 142 MEQ/L 140 MEQ/L 145 MEQ/L Potassium Level 3.7 MEQ/L Chloride Level 100 MEQ/L Carbon Dioxide Level 31.1 MEQ/L Anion Gap 7 MEQ/L Blood Urea Nitrogen 17 MG/DL Creatinine 0.77 MG/DL Estimat Glomerular Filtration 122 ML/MIN Rate Random Glucose 115 MG/DL Calcium Level 8.7 MG/DL Test 10/17/16 06:15 Sodium Level 147 MEQ/L Potassium Level 3.4 MEQ/L Chloride Level 113 MEQ/L Carbon Dioxide Level 25.6 MEQ/L Anion Gap 8 MEQ/L Blood Urea Nitrogen 24 MG/DL Creatinine 0.75 MG/DL Estimat Glomerular Filtration 126 ML/MIN Rate Random Glucose 129 MG/DL Calcium Level 8.1 MG/DL Microbiology Date/Time Procedure Status Source Growth 10/15/16 13:15 Gram Stain - Final Complete Bronchial Washings Right Upper Lobe 10/15/16 13:15 Bronchial Culture - Final Complete Enterobacter Cloacae 10/15/16 13:15 Acid Fast Stain Worksheet Bronchial Washings Right Upper Lobe Pending 10/15/16 13:15 Mycobacterial Culture Worksheet Bronchial Washings Right Upper Lobe Pending 10/15/16 13:15 Fungal Smear - Final Resulted Bronchial Washings Right Upper Lobe NO FUNGAL ELEMENTS SEEN. 10/15/16 13:15 Fungal Culture Resulted Bronchial Washings Right Upper Lobe Pending 10/16/16 19:45 Gram Stain - Final Resulted Sputum Endotracheal 10/16/16 19:45 Sputum Culture - Preliminary Resulted Gram Negative Bhavin 10/16/16 20:05 Urine Culture Received Urine Catheterized Urine Pending 10/16/16 20:51 Aerobic Blood Culture - Preliminary Resulted Blood Peripheral NO GROWTH IN 1 DAY 10/16/16 20:51 Anaerobic Blood Culture - Preliminary Resulted Blood Peripheral NO GROWTH IN 1 DAY 10/16/16 21:00 Aerobic Blood Culture - Preliminary Resulted Blood Peripheral NO GROWTH IN 1 DAY 10/16/16 21:00 Anaerobic Blood Culture - Preliminary Resulted Blood Peripheral NO GROWTH IN 1 DAY IMAGING: Head CT 10/16/16 0000 Signed Impressions: Service Date/Time: Sunday, October 16, 2016 04:37 - CONCLUSION: Large area of edema in the right temporal lobe with now some central areas of hemorrhage clearly more impressive than on the , in particular the amount of hemorrhage present. I don't see drainable collection, it is more of an elongated curvilinear area. Small area stroke and edema in the medial left parietal lobe. Improvement in the lower left lateral parietal lesion with much less edema today Loyd Black MD Chest X-Ray 10/15/16 0000 Signed Impressions: Service Date/Time: Saturday, October 15, 2016 13:21 - CONCLUSION: Trach is in good position without pneumothorax. Jair Coello MD FACR Head CT 10/08/16 0600 Signed Impressions: Service Date/Time: Saturday, October 08, 2016 05:31 - CONCLUSION: Increasing mass effect mainly associated with the right temporal process Michael Choe MD Head CT 10/03/16 0945 Signed Impressions: Service Date/Time: Monday, October 03, 2016 09:51 - CONCLUSION: 1. Multiple foci of low attenuation seen within the cerebral and cerebellar hemispheres consistent with evolving infarcts. Mykel Cantu MD Chest X-Ray 10/01/16 0000 Signed Impressions: Service Date/Time: Saturday, October 01, 2016 05:10 - CONCLUSION: Slight worsening bilateral perihilar infiltrates. 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 Please see above. No mass or evidence of abscess. 4 mm of leftward midline shift. Small subarachnoid blood. Michael Freitas MD Renal Ultrasound 09/30/16 0000 Signed Impressions: Service Date/Time: Friday, September 30, 2016 18:45 - CONCLUSION: Ultrasound appearance of the kidneys within normal limits. [place] catheter in the urinary bladder. Nonspecific splenomegaly incidentally noted. Michael Freitas MD Head Magnetic Resonance Angiography 09/30/16 0000 Signed Impressions: Service Date/Time: Friday, September 30, 2016 17:42 - CONCLUSION: No occlusion, aneurysm or other acute intracranial vascular abnormality demonstrated. Michael Freitas MD PHYSICAL EXAMINATION GENERAL: Sedated. On vent. HEENT: No icterus. Oropharynx: moist mucosa. NECK: No adenopathy. No swelling. Trach site without e/o infection. LUNGS: Basilar rhonchi. HEART: 2/6 systolic murmur at the left sternal border. No rubs or gallops. ABDOMEN: Bowel sounds are present, soft, nontender. EXTREMITIES: No clubbing or cyanosis or edema. Embolic purpuric lesions at the plantar aspect of the 4th and 5th toe on the left and the great toe on the right. SKIN: Resolved rash at the feet dorsum almost resolved. NEURO: Unable to assess. PSYCH: unable to assess. IMPRESSION 1. Septic shock due to Staph aureus. Persistent bacteremia. Blood culture now negative reflecting clearance. 2. Acute endocarditis. [place] aortic valve. Staph aureus. 3. Acute respiratory failure. 4. Bilateral lung infiltrates, probably secondary to septic emboli. PNA Staph aureus. Now has Enterobacter PNA. 5. 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 6. History of IV drug abuse. Unknown current use status. 7. Antibiotic allergies. 8. Recent drug rash. Medicines in weeks before admission: Clindamycin, Doxycycline, acyclovir, Adderral, Tylenol, prednisone, omeprazole, Ibuprofen. RECOMMENDATIONS: 1. Continue Oxacillin 2 grams Q 4 hours. 2. Continue Levaquin. 3. Monitor temps. 4. Monitor WBC. 5. Monitor clinical status. Discussed with RN. Nemesio Jackson MD Oct 17, 2016 12:30
[2016-10-17] MEDS: fentaNYL DRIP 250 ML IV SCH (13:01)
[2016-10-17] MEDS ORDERED: PROPOFOL 200 MG/20 ML AMP IV ONE (14:58)
--- NOTE | 2016-10-17 15:03 | ECHRPT ---
Indication: ENDOCARDITIS Indication: ENDOCARDITIS CONCLUSIONS Normal left ventricular size. Wall thickness is normal. The left ventricular systolic function is no rmal with an estimated ejection fraction in the range of 60-65%. No regional wall motion abnormalities are presen t. Trace mitral valve regurgitation Trileaflet aortic valve. Prolapse of aneterior and noncoronary cusps. Severe eccentric aortic regu rgitation. Vegetation noted which is improved in size. Leaflet perforation may be present. . BP: / HR: Rhythm: MEASUREMENTS (Male / Female) Normal Values Technical Quality: M-MODE LV Diastolic Diameter MM 6.5 cm 4.2 - 5.9 / 3.9 - 5.3 cm LV Systolic Diameter MM 4.8 cm LV Ejection Fraction MM Teich 50.2 % IVS Diastolic Thickness MM 1.0 cm 0.6 - 1.0 / 0.6 - 0.9 cm LVPW Diastolic Thickness MM 1.0 cm 0.6 - 1.0 / 0.6 - 0.9 cm LV Relative Wall Thickness MM 0.3 0.24 - 0.42 / 0.22 - 0.42 LV Mass Index MM 161.2 g/m 49 - 115 / 43 - 95 g/m DOPPLER AI Peak Velocity 455.5 cm/s AI Peak Gradient 83.0 mmHg AI Pressure Half Time 131.5 ms FINDINGS Left Ventricle Normal left ventricular size. Wall thickness is normal. The left ventricular systolic function is no rmal with an estimated ejection fraction in the range of 60-65%. No regional wall motion abnormalities are presen t. Right Ventricle Normal right ventricular size and systolic function. Left Atrium The left atrial size is normal. Right Atrium The right atrial size is normal. Atrial Septum Normal atrial septal thickness without atrial level shunting by limited color doppler interrogation. Aorta The aortic root and proximal ascending aorta are normal in size on limited imaging. Mitral Valve Mild thickening of the mitral valve leaflets. Trace mitral valve regurgitation. No mitral valve sten osis. Aortic Valve Trileaflet aortic valve. Prolapse of aneterior and noncoronary cusps. Severe eccentric aortic regu rgitation. Vegetation noted which is improved in size. Leaflet perforation may be present. Tricuspid Valve There is trace tricuspid valve regurgitation. Pulmonary arterial systolic pressure could not be es timated due to an insufficient tricuspid valve regurgitation doppler jet for measurement. Pulmonary Valve The pulmonary valve is not well visualized. Vessels The inferior vena cava is normal in size. Pericardium There is a small pericardial effusion present. Loyd Paul MC, FACC (Electronically Signed) Final Date:17 October 2016 15:03
--- NOTE | 2016-10-17 15:10 | GIPROC ---
[facility] [address] [facility]. [facility], [id number] EGD WITH PEG PROCEDURE REPORT EXAM DATE: 10/17/2016 PATIENT NAME: Slim Rios MR#: [id number] BIRTHDATE: 1990 ATTENDING: Maria Elena Gomez MD ORDER #: [id number] TRANSPORTATION DISPATCHER: Ronald Reed and Erasmo Garcia STATUS: inpatient INDICATIONS: The patient is a 26 yr old male here for an EGD with PEG due to placement of PEG PROCEDURE PERFORMED: EGD with PEG placement MEDICATIONS: None and Per Anesthesia. TOPICAL ANESTHETIC: none CONSENT: The patient understands the risks and benefits of the procedure and understands that these risks include, but are not limited to: sedation, allergic reaction, infection, perforation and/or bleeding. Alternative means of evaluation and treatment include, among others: physical exam, x-rays, and/or surgical intervention. The patient elects to proceed with this endoscopic procedure. medical equipment was checked for proper function. Hand hygiene and appropriate measures for infection prevention was taken. After the risks, benefits and alternatives of the procedure were thoroughly explained, Informed consent was verified, confirmed and timeout was successfully executed by the treatment team. The patient was anesthetized with topical anesthesia and the Pentax [id number] endoscope was introduced through the mouth and advanced to the second portion of the duodenum. The instrument was slowly withdrawn as the mucosa was fully examined. The upper, middle, and distal third of the esophagus were carefully inspected and no abnormalities were noted. The z-line was well seen at the GEJ. The endoscope was pushed into the fundus which was normal including a retroflexed view. The antrum, first and second part of the duodenum were unremarkable. The stomach was then inflated with air, and by a combination of transillumination and manual palpation, the site for the gastrostomy tube placement was selected and marked on the anterior abdominal wall. The skin of the anterior abdomen was surgically prepped and draped with sterile towels. Utilizing strict sterile technique, the selected site was then anesthetized with 1% xylocaine by injection into the skin and subcutaneous tissue. A 1 cm incision was made through the skin and subcutaneous tissue, and the needle/cannula assembly was then passed through the abdominal wall and through the anterior wall of the stomach, maintaining visualization with the endoscope. A snare device previously placed through the instrument channel was then opened and placed around the cannula, the needle was removed, and the insertion wire was passed through the cannula and into the stomach lumen. The snare was then loosened from the cannula, and repositioned to snare the insertion wire. The snare was then pulled up to the endoscope distal tip, and the scope was then withdrawn bringing with it the snare and insertion wire. The insertion wire was then released from the snare, and then loop-attached to the Bard 20 Fr gastrostomy tube. Using the "pull technique", the G-tube was then pulled into place by traction on the insertion wire at the abdominal wall end. The G-tube insertion site was then cleansed once again, and the external bolster was placed over the tube to secure it to the abdominal wall. A sterile dressing was then applied, and the procedure terminated. no abnormalities The gastroscope was then slowly withdrawn and removed. ADVERSE EVENT: There were no complications. IMPRESSIONS: 1. The upper, middle, and distal third of the esophagus were carefully inspected and no abnormalities were noted. The z-line was well seen at the GEJ. The endoscope was pushed into the fundus which was normal including a retroflexed view. The antrum, first and second part of the duodenum were unremarkable. 2. PEG placed successfully RECOMMENDATIONS: PEG recomendations: 1- NPO for 6 hours except for meds 2- Flush PEG tube every 6 hours with water and after each PEG feeding 3- May resume regular diet in the morning 4- May use Ensure or Boost etc. for PEG tube feeding REPEAT EXAM: procedure as needed Maria Elena Gomez MD eSigned: Maria Elena Gomez MD 10/17/2016 3:10 PM cc: PATIENT NAME: Slim Rios MR#: [id number]
--- NOTE | 2016-10-17 18:01 | HHI.NSPN ---
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 Exam Results Vital Signs Date Time Temp Pulse Resp B/P Pulse Ox O2 Delivery O2 Flow Rate FiO2 10/17/16 16:02 100 40 10/17/16 16:00 104 10/17/16 16:00 98.6 21 130/48 Intake and Output 10/16/16 10/16/16 10/17/16 08:00 16:00 00:00 Intake Total 873 ml 979 ml 1105 ml Output Total 3400 ml 2500 ml 450 ml Balance -2527 ml -1521 ml 655 ml Physical Examination Patient remains intubated and sedated. No change in neurologic exam versus 10/16/16 Lab, Micro, Other Results Laboratory Tests Test 10/16/16 10/16/16 10/17/16 10/17/16 19:35 20:05 00:15 06:15 Sodium Level 140 MEQ/L 145 MEQ/L 147 MEQ/L Urine Color YELLOW Urine Turbidity CLOUDY Urine pH 7.5 Urine Specific [place] 1.019 Urine Protein TRACE mg/dL Urine Glucose (UA) NEG mg/dL Urine Ketones NEG mg/dL Urine Occult Blood SMALL Urine Nitrite NEG Urine Bilirubin NEG Urine Urobilinogen 4.0 MG/DL Urine Leukocyte Esterase SMALL Urine RBC 94 /hpf Urine WBC 14 /hpf Urine Squamous Epithelial <1 /hpf Cells Urine Amorphous Sediment SMALL Urine Bacteria RARE /hpf Urine Mucus FEW /lpf Microscopic Urinalysis Comment CATH-CULTURE IND White Blood Count 14.3 TH/MM3 Red Blood Count 2.68 MIL/MM3 Hemoglobin 7.8 GM/DL Hematocrit 22.9 % Mean Corpuscular Volume 85.7 FL Mean Corpuscular Hemoglobin 29.1 PG Mean Corpuscular Hemoglobin 33.9 % Concent Red Cell Distribution Width 14.1 % Platelet Count 363 TH/MM3 Mean Platelet Volume 7.4 FL Potassium Level 3.4 MEQ/L Chloride Level 113 MEQ/L Carbon Dioxide Level 25.6 MEQ/L Anion Gap 8 MEQ/L Blood Urea Nitrogen 24 MG/DL Creatinine 0.75 MG/DL Estimat Glomerular Filtration 126 ML/MIN Rate Random Glucose 129 MG/DL Calcium Level 8.1 MG/DL Test 10/17/16 12:15 Sodium Level 149 MEQ/L Medical Decision Making Impression and Plan Impression: 1. Patient remains with severe neurologic deficit. Most recent CT scan of reveals small amount of new hemorrhage circumferentially around the region of previous right temporal infarction. Plan: Discussed with time lock expert today. Due to possibility of recurrent or residual abscess-plan follow-up MRI of the brain with and without contrast. Continue to keep sodium 145-155 range Pino Michelle MD Oct 17, 2016 18:01
[2016-10-17] MEDS: SENNOSIDES SYRUP 8.8 MG/5 ML CUP G-TUBE PRN (20:37)
[2016-10-17] MEDS: MELATONIN 5 MG TAB PO SCH (20:38)
[2016-10-17 21:36] LABS: POTASSIUM 3.4 MEQ/L (3.5-5.1)
[2016-10-18] VITALS (20 sets, daily range): BP systolic 115–130; BP diastolic 44–65; PULSE 86–141; RESP 14–16; TEMP 98.4–99.8; O2SAT 95–100
[2016-10-18] MEDS: OXACILLIN INJ 2 GM in SODIUM CHLORIDE 0.9% INJ 100 ML IV SCH ×4 (00:02→12:37)
[2016-10-18] MEDS: PROPOFOL 1000 MG/100 ML INJ 100 ML IV SCH ×2 (00:06→04:26)
[2016-10-18] MEDS: FUROSEMIDE 40 MG/4 ML VIAL IV PUSH SCH ×2 (00:07→12:37)
[2016-10-18] MEDS: HALOPERIDOL LACTATE 5 MG/ML AMP IV SCH ×4 (02:29→20:59)
[2016-10-18] MEDS: NOREPINEPHRINE INJ 4 MG in SODIUM CHLOR 0.9% 250 ML INJ 250 ML IV SCH ×2 (03:38→17:16)
[2016-10-18] MEDS: CHLORHEXIDINE GLUCONATE 2 % 1 PACK (2 CLOTHS) TOP SCH (03:38)
[2016-10-18 04:10] LABS: AUTOMATED NEUTROPHIL # 14.4 TH/MM3 (1.8-7.7); BASOPHIL # 0.1 TH/MM3 (0-0.2); BASOPHIL % 0.5 % (0.0-2.0); EOSINOPHIL # 0.1 TH/MM3 (0-0.4); EOSINOPHIL % 0.5 % (0.0-4.0); HEMO FLAGS DIFF FINAL; LYMPH % 8.4 % (9.0-44.0); LYMPHOCYTE # 1.4 TH/MM3 (1.0-4.8); MEAN CORPUSCULAR HEMOGLOBIN 27.9 PG (27.0-34.0); MEAN CORPUSCULAR HGB CONC 32.1 % (32.0-36.0); MONO % 4.2 % (0.0-8.0); NEUT % 86.4 % (16.0-70.0); PLATELET COUNT 371 TH/MM3 (150-450); RED BLOOD COUNT 2.99 MIL/MM3 (4.50-5.90); RED CELL DISTRIBUTION WIDTH 14.6 % (11.6-17.2); WHITE BLOOD COUNT 16.7 TH/MM3 (4.0-11.0)
[2016-10-18] MEDS: fentaNYL DRIP 250 ML IV SCH ×2 (04:26→22:21)
[2016-10-18 04:46] LABS: ALT (GPT) 38 U/L (12-78); ANION GAP 10 MEQ/L (5-15); AST (GOT) 37 U/L (15-37); BICARBONATE 26.8 MEQ/L (21.0-32.0); BLOOD UREA NITROGEN 25 MG/DL (7-18); CHLORIDE 116 MEQ/L (98-107); GLOMERULAR FILTRATION RATE 141 ML/MIN (>89); MAGNESIUM 2.4 MG/DL (1.5-2.5); POTASSIUM 3.6 MEQ/L (3.5-5.1); SODIUM (NA) 153 MEQ/L (136-145)
[2016-10-18 04:48] LABS: ALKALINE PHOSPHATASE 123 U/L (45-117); TOTAL BILIRUBIN ADULT 0.5 MG/DL (0.2-1.0)
--- NOTE | 2016-10-18 06:03 | RADRPT ---
EXAM DATE/TIME: 10/18/2016 04:52 [facility] COMPARISON: CHEST SINGLE AP, October 15, 2016, 13:21. INDICATIONS : Shortness of breath, possible pulmonary disease. MEDICAL HISTORY : None. SURGICAL HISTORY : Tracheostomy ENCOUNTER: Subsequent ACUITY: 4 - 6 days PAIN SCORE: Non-responsive. LOCATION: Bilateral chest FINDINGS: A single view of the chest demonstrates the tracheostomy tube and right subclavian central line are b oth in good position. Mild consolidation in the right lower lobe. Mild pulmonary vascular congestion. . The cardiomediastinal contours are unremarkable. Osseous structures are intact. CONCLUSION: Mild infiltrate in the right lower lobe. Central line in good position. Loyd Black MD on October 18, 2016 at 6:01 Board Certified Radiologist. This report was verified electronically.
[2016-10-18] MEDS: DOCUSATE SODIUM 100 MG/10 ML UDC G-TUBE SCH ×2 (08:49→20:59)
[2016-10-18] MEDS: SENNOSIDES SYRUP 8.8 MG/5 ML CUP G-TUBE PRN (08:49)
[2016-10-18] MEDS: METOPROLOL TARTRATE 25 MG TAB PO SCH (08:49)
[2016-10-18] MEDS: LEVOFLOXACIN 750 MG PREMIX INJ 150 ML IV SCH (08:50)
[2016-10-18] MEDS: PANTOPRAZOLE SODIUM 40 MG VIAL IV SCH (08:50)
[2016-10-18] MEDS: CHLORHEXIDINE 0.12% (ORAL KIT) 15 ML CUP MT SCH ×2 (08:50→21:00)
[2016-10-18] MEDS: BENEPROTEIN POWDER 1 PACK G-TUBE SCH ×3 (08:50→18:00)
[2016-10-18] MEDS: ARTIFICIAL TEARS OPTH SOLN 15 ML BTL EACH EYE SCH ×3 (08:50→18:00)
[2016-10-18] MEDS: SODIUM CHLORIDE 0.9% FLUSH 10 ML FLUSH IV FLUSH SCH ×2 (08:50→21:00)
--- NOTE | 2016-10-18 10:13 | HHI.NSPN ---
(Elliott Fragoso) History Chief Complaint: Trached & sedated (Elliott Fragoso) Interval History 10/01: The HPI is obtained from a review of the EMR due to the patient's altered mental status and intubation. This is a 26-year-old male who was found by his landlord on with altered mental status and called EMS. Upon arrival of EMS the patient had a GCS of 10. In the emergency department the patient was hypotensive and tachycardiac. He was emergently intubated for airway protection. His CT brain demonstrated significant areas of infarction to the right frontal, temporal and cerebellar regions as well as a small subarachnoid haemorrhage to the superior right parietal region. There was a 3 mm midline shift as well as effacement on the right. The patient's laboratory data is significant for white blood cell count of 19,000, haemoglobin of 9.9, lactate of 3.7, creatinine 1.69, CK 372, troponin of 11.9. His urine drug screen is positive for opiates and amphetamines. He was subsequently admitted to the [facility] for further management and monitoring. Per EMS and ED reports, patient was seen approximately 10 days prior to admission by an unknown physician in the clinic and given antibiotic for fever. After taking the antibiotic, the patient had a new red rash on his hands and healing on his feet. He he was seen in the emergency department 2 days prior to admission for low-grade fever and congestion, generalized weakness, lightheadedness. At that time she was given prescription for prednisone 40 mg daily for 5 days. The patient's landlord apparently found the patient today with altered mental status and called EMS. When EMS arrived, his GCS was 10. There is reports that the patient has a history of substance abuse and was recently in rehabilitation. The patient's roommate confirmed to the Registered Public Surveyor that the patient had recently been in rehabilitation due to a history of substance abuse. The roommate did not think he was doing any illicit drugs recently. 10/02: The patient remains intubated & sedated. He withdraws to painful stimuli to the extremities. 10/03: The patient is sedated with propofol & fentanyl. Nursing reports that he does move the RUE mostly but will move the BLE when the sedation is off. Nursing reported no movement of the LUE. When EEG was at the bedside with the sedation down the patient became quite agitated and was kicking out. 10/04: The patient remains sedated. Nursing states he continues to be agitated when the sedation is off. A CT brain yesterday demonstrated multiple evolving infarcts. 10/05: The patient is still sedated with propofol & fentanyl. He does not appear to be responding to verbal commands. 10/09: The patient remains sedated with propofol & fentanyl. He did open his right eye on his own as Nursing & this practitioner were talking in the room. He did withdraw on the left side to noxious stimuli. 10/11: The patient had received Nimbex prior to being seen due to fighting the vent. When seen the patient was becoming tachypneic and fighting against the vent again. His mother did say she was told he had a good night and yesterday was moving all extremities although the left upper was weaker. His CXR this morning was suggestive of infiltrates in layering effusions. The Registered Public Surveyor felt the patient was in flash pulmonary edema. 10/16: The patient is trached and sedated when seen this morning. He did have a CT brain this morning which demonstrated increased edema and new haemorrhage to the right temporal lobe. No drainable collection was identified. A small stroke with edema was also noted to the medial left parietal lobe. The lower left parietal lesion and edema had improved. He had trace movement of the LUE & BLE to noxious stimuli. 10/18: The patient is trached and sedated. He does withdraw to varying degrees to noxious stimuli and does open his eyes as well. (Elliott Fragoso) System Review Comments Unable to obtain ROS due to patient's mental status and being trached & sedated. (Elliott Fragoso) Exam Results Vital Signs Date Time Temp Pulse Resp B/P Pulse Ox O2 Delivery O2 Flow Rate FiO2 10/18/16 08:20 98 40 10/18/16 06:00 105 10/18/16 04:00 98.9 14 128/65 Intake and Output 10/17/16 10/17/16 10/18/16 08:00 16:00 00:00 Intake Total 1167 ml 1214 ml 950 ml Output Total 2350 ml 1900 ml 850 ml Balance -1183 ml -686 ml 100 ml (Elliott Fragoso) Physical Examination GENERAL: Sedated & trached, NAD. HEENT: Normocephalic, atraumatic. PERRL 3 mm & reactive. Mucous membranes moist , orally intubated. CHEST: CTAB w/o W/R/R, equal excursion, nonlaboured, trached & mechanically ventilated. CARDIOVASCULAR: S1S2 w/regular rate but fast, radial & pedal pulses 2+ bilaterally, cap refill < 2 sec, 1+ edema at ankles but less to feet. Monitor is sinus tachycardia w/o any ectopy noted. ABDOMEN: Abdomen soft, nontender, positive bowel sounds, PEG tube w/enteral feeds. GENITOURINARY: Catheter to BSD. MUSCULOSKELETAL: Withdraws extremities to noxious stimuli, spontaneous movement of RUE, no evident deformity or clubbing. INTEGUMENTARY: The nonblanching macular rash to the feet & ankle has resolved, continued evolution of skin desquamation. The tip of the right great toe with evolving necrotic area. NEUROLOGICAL: Sedated & trached, GCS 7T (E2 V1T M4) PERRL 3 mm reactive Opens eyes to noxious stimuli and grimaces face He is not following any commands, moves all extremities to varying degrees with noxious stimuli, spontaneous movement of RUE noted. Unable to assess for sensory deficit due to mental status (Elliott Fragoso) Lab, Micro, Other Results Allergies Coded Allergies Type Severity Reaction Last Updated Verified Hydrocodone Allergy Unknown Nausea/Vomiting 10/04/16 Yes Sulfa Allergy Unknown 09/30/16 Yes Toradol Allergy Unknown 09/30/16 Yes Recent Impressions Chest X-Ray 10/18/16 0600 Signed Impressions: Service Date/Time: October 04:52 - CONCLUSION: Mild infiltrate in the right lower lobe. Central line in good position. Loyd Black MD Head CT 10/16/16 0000 Signed Impressions: Service Date/Time: Sunday, October 16, 2016 04:37 - CONCLUSION: Large area of edema in the right temporal lobe with now some central areas of hemorrhage clearly more impressive than on the , in particular the amount of hemorrhage present. I don't see drainable collection, it is more of an elongated curvilinear area. Small area stroke and edema in the medial left parietal lobe. Improvement in the lower left lateral parietal lesion with much less edema today Loyd Black MD //// 06:00 18:00 06:00 18:00 06: 18:00 Intake Total 2532 ml 979 ml 2272 ml 1214 ml 950 ml 891 ml Output Total 3800 ml 2500 ml 2800 ml 1900 ml 850 ml 1900 ml Balance -1268 ml -1521 ml -528 ml -686 ml 100 ml -1009 ml Intake IV Total 2392 ml 979 ml 1918 ml 1154 ml 950 ml 891 ml Tube Feeding 0 ml 224 ml Tube Irrigant 140 ml 130 ml 60 ml Output Urine Total 3800 ml 2500 ml 2800 ml 1900 ml 850 ml 1900 ml # Bowel Movements 0 0 0 Laboratory Tests Test 10/15/16 10/15/16 10/16/16 10/16/16 11:05 13:15 05:40 12:10 White Blood Count 12.3 TH/MM3 12.7 TH/MM3 Red Blood Count 2.91 MIL/MM3 2.83 MIL/MM3 Hemoglobin 8.5 GM/DL 8.2 GM/DL Hematocrit 24.6 % 24.4 % Mean Corpuscular Volume 84.8 FL 86.5 FL Mean Corpuscular Hemoglobin 29.1 PG 28.9 PG Mean Corpuscular Hemoglobin 34.4 % 33.4 % Concent Red Cell Distribution Width 14.5 % 14.2 % Platelet Count 413 TH/MM3 395 TH/MM3 Mean Platelet Volume 7.6 FL 7.7 FL Sodium Level 139 MEQ/L 138 MEQ/L 142 MEQ/L Potassium Level 3.8 MEQ/L 3.7 MEQ/L Chloride Level 99 MEQ/L 100 MEQ/L Carbon Dioxide Level 34.0 MEQ/L 31.1 MEQ/L Anion Gap 6 MEQ/L 7 MEQ/L Blood Urea Nitrogen 16 MG/DL 17 MG/DL Creatinine 0.62 MG/DL 0.77 MG/DL Estimat Glomerular Filtration 157 ML/MIN 122 ML/MIN Rate Random Glucose 124 MG/DL 115 MG/DL Calcium Level 8.7 MG/DL 8.7 MG/DL Prealbumin 24 MG/DL Procalcitonin 0.75 ng/mL Bronchoalveolar Lavage WBC 5500 /MM3 Bronchoalveolar Lavage RBC 9000 /MM3 Bronchoalveolar Lavage 98 % Neutrophils Bronchoalveolar Lavage 2 % Lymphocytes Bronchoalveolar Lavage Diff Comment Lavage Fluid Total Volume 15.0 ML Lavage Fluid Total WBC Count 82.000 MILLION Test 10/16/16 10/16/16 10/17/16 10/17/16 19:35 20:05 00:15 06:15 Sodium Level 140 MEQ/L 145 MEQ/L 147 MEQ/L Urine Color YELLOW Urine Turbidity CLOUDY Urine pH 7.5 Urine Specific [place] 1.019 Urine Protein TRACE mg/dL Urine Glucose (UA) NEG mg/dL Urine Ketones NEG mg/dL Urine Occult Blood SMALL Urine Nitrite NEG Urine Bilirubin NEG Urine Urobilinogen 4.0 MG/DL Urine Leukocyte Esterase SMALL Urine RBC 94 /hpf Urine WBC 14 /hpf Urine Squamous Epithelial <1 /hpf Cells Urine Amorphous Sediment SMALL Urine Bacteria RARE /hpf Urine Mucus FEW /lpf Microscopic Urinalysis Comment CATH-CULTURE IND White Blood Count 14.3 TH/MM3 Red Blood Count 2.68 MIL/MM3 Hemoglobin 7.8 GM/DL Hematocrit 22.9 % Mean Corpuscular Volume 85.7 FL Mean Corpuscular Hemoglobin 29.1 PG Mean Corpuscular Hemoglobin 33.9 % Concent Red Cell Distribution Width 14.1 % Platelet Count 363 TH/MM3 Mean Platelet Volume 7.4 FL Potassium Level 3.4 MEQ/L Chloride Level 113 MEQ/L Carbon Dioxide Level 25.6 MEQ/L Anion Gap 8 MEQ/L Blood Urea Nitrogen 24 MG/DL Creatinine 0.75 MG/DL Estimat Glomerular Filtration 126 ML/MIN Rate Random Glucose 129 MG/DL Calcium Level 8.1 MG/DL Test 10/17/16 10/17/16 10/18/16 12:15 20:50 03:45 Sodium Level 149 MEQ/L 151 MEQ/L 153 MEQ/L Potassium Level 3.4 MEQ/L 3.6 MEQ/L White Blood Count 16.7 TH/MM3 Red Blood Count 2.99 MIL/MM3 Hemoglobin 8.3 GM/DL Hematocrit 26.0 % Mean Corpuscular Volume 87.0 FL Mean Corpuscular Hemoglobin 27.9 PG Mean Corpuscular Hemoglobin 32.1 % Concent Red Cell Distribution Width 14.6 % Platelet Count 371 TH/MM3 Mean Platelet Volume 7.6 FL Neutrophils (%) (Auto) 86.4 % Lymphocytes (%) (Auto) 8.4 % Monocytes (%) (Auto) 4.2 % Eosinophils (%) (Auto) 0.5 % Basophils (%) (Auto) 0.5 % Neutrophils # (Auto) 14.4 TH/MM3 Lymphocytes # (Auto) 1.4 TH/MM3 Monocytes # (Auto) 0.7 TH/MM3 Eosinophils # (Auto) 0.1 TH/MM3 Basophils # (Auto) 0.1 TH/MM3 CBC Comment DIFF FINAL Differential Comment Chloride Level 116 MEQ/L Carbon Dioxide Level 26.8 MEQ/L Anion Gap 10 MEQ/L Blood Urea Nitrogen 25 MG/DL Creatinine 0.68 MG/DL Estimat Glomerular Filtration 141 ML/MIN Rate Random Glucose 125 MG/DL Calcium Level 8.5 MG/DL Magnesium Level 2.4 MG/DL Total Bilirubin 0.5 MG/DL Aspartate Amino Transf 37 U/L (AST/SGOT) Alanine Aminotransferase 38 U/L (ALT/SGPT) Alkaline Phosphatase 123 U/L Total Protein 7.7 GM/DL Albumin 1.7 GM/DL Vital Signs Date Time Temp Pulse Resp B/P Pulse Ox O2 Delivery O2 Flow Rate FiO2 10/18/16 08:20 98 40 10/18/16 06:00 105 10/18/16 04:00 86 10/18/16 04:00 50 10/18/16 04:00 98.9 95 14 128/65 100 10/18/16 03:53 97 40 10/18/16 02:00 105 10/18/16 00:40 99 40 10/18/16 00:00 105 10/18/16 00:00 99.2 97 14 115/46 97 10/18/16 00:00 50 10/17/16 22:00 105 10/17/16 20:00 99.8 106 14 132/50 100 10/17/16 20:00 105 10/17/16 20:00 50 10/17/16 19:47 99 40 10/17/16 18:00 109 10/17/16 16:02 100 40 10/17/16 16:00 50 10/17/16 16:00 104 10/17/16 16:00 98.6 110 21 130/48 100 10/17/16 14:00 105 10/17/16 12:15 100 40 10/17/16 12:15 40 10/17/16 12:15 40 10/17/16 12:00 104 10/17/16 12:00 98.7 104 15 130/48 100 10/17/16 12:00 50 10/17/16 10:00 92 10/17/16 08:00 98.7 100 20 134/50 100 10/17/16 08:00 50 10/17/16 08:00 100 10/17/16 07:55 100 40 10/17/16 06:00 120 10/17/16 04:07 99 40 10/17/16 04:00 50 10/17/16 04:00 100.6 110 19 138/50 100 10/17/16 04:00 110 10/17/16 02:00 116 10/17/16 00:07 100 40 10/17/16 00:00 100.3 107 16 128/48 100 10/17/16 00:00 50 10/17/16 00:00 107 10/16/16 22:00 98 10/16/16 20:28 98 40 10/16/16 20:00 104 10/16/16 20:00 50 10/16/16 20:00 99.2 104 16 150/56 99 10/16/16 18:00 101 10/16/16 16:00 100.2 98 15 110/42 97 10/16/16 16:00 98 10/16/16 16:00 50 10/16/16 14:00 101 10/16/16 12:00 100.0 107 17 100/40 96 10/16/16 12:00 50 10/16/16 12:00 107 10/16/16 11:17 97 40 10/16/16 10:00 102 10/16/16 08:23 98 40 10/16/16 08:00 50 10/16/16 08:00 88 10/16/16 08:00 99.0 88 14 110/42 98 10/16/16 06:00 90 10/16/16 04:39 100 10/16/16 04:17 98 40 10/16/16 04:00 90 10/16/16 04:00 98.7 90 14 116/46 98 10/16/16 04:00 50 10/16/16 02:00 94 10/16/16 01:09 99 40 10/16/16 00:00 50 10/16/16 00:00 99.7 94 14 127/46 100 10/16/16 00:00 94 10/15/16 22:00 102 10/15/16 21:58 96 40 10/15/16 20:00 99.8 102 16 134/48 100 10/15/16 20:00 50 10/15/16 20:00 100 40 10/15/16 20:00 102 10/15/16 18:00 108 10/15/16 16:00 84 10/15/16 16:00 98.5 95 18 123/57 100 10/15/16 16:00 50 10/15/16 15:28 100 40 10/15/16 14:00 84 10/15/16 12:00 99.1 111 18 127/60 100 10/15/16 12:00 50 10/15/16 12:00 111 10/15/16 11:45 99 40 (Elliott Fragoso) Medical Decision Making Impression and Plan Impression: Multiple acute septic CVAs Cerebral edema Small subarachnoid hemorrhage Midline shift, 3 mm Metabolic encephalopathy Septic shock Infective endocarditis CT brain demonstrates large area of right temporal lobe edema with some new central area haemorrhage w/o any drainable collection identified, small area stroke & edema to the medial left parietal lobe, and improvement in the lower left parietal lesion & edema Patient remains critical with some improvement in neurological function Plan: Stat CT brain for any further decline in neurological status Frequent neuro checks Continue 3% saline & monitor sodium level Critical care management by Registered Public Surveyor Antibiotics per Infectious Disease MRI brain ordered for today and pending (Elliott Fragoso) Attending Statement I have personally seen and examined the patient on the date of this note. Pertinent documentation and study results have been reviewed by the undersigned. I have personally developed the treatment plan and performed medical decision making. The patient is off sedation this evening. He has occasional IV Ativan for periods of agitation. He is awake with mild lethargy. He arouses spontaneously. The patient moves all extremities with moderate strength. He occasionally follows commands with his upper extremities. He tracks to the right and left with a mildly disconjugate gaze and response to his family. 10/18/16 MRI brain with and without contrast images of been reviewed by the undersigned. The study reveals probable areas of resolving abscess in the left temporoparietal region. On the right side the area of temporal edema is more diffusely enhancing, probably more renewals representative of an area of infarction and possibly cerebritis without focal abscess. Findings were discussed today with heel boom operator as well as with the family in the patient's room. There is persistent moderate edema, however the patient's neurologic function is improving, and there is no significant brain stem compression. It is recommended that he continue further observation of the cerebral lesions with follow-up CT scan of the head at the first part of next week, or earlier if any deterioration in his neurologic exam. Approximately 40 minutes total examination, family discussion and management time today. (Pino Michelle MD) Elliott Fragoso Oct 18, 2016 10:13 Pino Michelle MD Oct 18, 2016 17:45
--- NOTE | 2016-10-18 10:50 | HHI.HCPN ---
Reason for visit a. To assist with evaluation and management of symptoms including:dyspnea, encephalopathy, agitation, constipation b. To assist medical decision maker(s) with: better understanding of current medical conditions; weighing benefits/burdens of medical treatment options; making medical treatment decisions. Subjective/Interval History s/p trach this week, PEG yesterday. Planned for MRI this morning. Tmax 99.8. BC negative x24 hr, urine neg x24 hr. On levaquin for +enterobacter bronchial specimen. On Levophed 6mcgs. Sedation = diprivan 20mcgs/kg/min, fentanyl 150mcgs hr. 2D echo = EF 60-65%. No regional wall motion abnormalities noted. Severe aortic regurgitation. Vegetation with improvement in size. Possible leaflet perforation. CV surgery has been consulted for further evaluation. Pt seen in room as nurse preparing to transport to MRI. No family present. He is sedated however somewhat responsive to stimuli. Moving head side to side spontaneously. Spontaneous movement right upper extremity observed. Localizes to touch bilateral lower extremities. Localizes to touch right upper extremity. Left upper extremity with no movement or withdrawal however does have facial grimace with pain stimuli. Breathing comfortably on mechanical vent when not being stimulated. On way out of the unit patient's sister Anay arrives, review with her current assessment, recent diagnostics, pending diagnostics, clinical condition, pending consultation with CV surgery. All questions answered. She continues to provide updates and support patient mother who visits briefly throughout the day. D/w primary RN, critical care Dr Rodriguez. . Advance Directives Living Will: Never completed Health Care Surrogate: Never completed Durable Power of [employer]: Completed, but not made available (mother reports has POA, not clear if this includes medical decision making (SW has reviewed, this does NOT include healthcare decision making) ) Objective Vital Signs Date Time Temp Pulse Resp B/P Pulse Ox O2 Delivery O2 Flow Rate FiO2 10/18/16 08:20 98 40 10/18/16 06:00 105 10/18/16 04:00 86 10/18/16 04:00 50 10/18/16 04:00 98.9 95 14 128/65 100 10/18/16 03:53 97 40 10/18/16 02:00 105 10/18/16 00:40 99 40 10/18/16 00:00 105 10/18/16 00:00 99.2 97 14 115/46 97 10/18/16 00:00 50 10/17/16 22:00 105 10/17/16 20:00 99.8 106 14 132/50 100 10/17/16 20:00 105 10/17/16 20:00 50 10/17/16 19:47 99 40 10/17/16 18:00 109 10/17/16 16:02 100 40 10/17/16 16:00 50 10/17/16 16:00 104 10/17/16 16:00 98.6 110 21 130/48 100 10/17/16 14:00 105 10/17/16 12:15 100 40 10/17/16 12:15 40 10/17/16 12:15 40 10/17/16 12:00 104 10/17/16 12:00 98.7 104 15 130/48 100 10/17/16 12:00 50 Intake & Output 10/18/16 10/18/16 07:00 19:00 Intake Total 1841 ml Output Total 2750 ml Balance -909 ml Intake IV Total 1841 ml Output Urine Total 2750 ml Physical Exam CONSTITUTIONAL/GENERAL: This is an adequately nourished patient, sedated, + blinks to stimuli TUBES/LINES/DRAINS: Rt SC central line. Tracheostomy, PEG tube carrera catheter , SCDs SKIN: No jaundice, or lesions. Embolic purpuric lesions on LT great toe. CARDIOVASCULAR: regular rhythm without murmur. No peripheral edema, periph pulses palp RESPIRATORY/CHEST: Symmetric, unlabored respirations on mech vent,tracheostomy midline. + Clear to right, rhonchi to left. Breath sounds equal bilat GASTROINTESTINAL: Abdomen soft,flat, nondistended. No palpable masses. No guarding. TF held for PEG procedure. BS hypoactive. GENITOURINARY: Without palpable bladder distension. Carrera catheter - clear dark yellow urine. NEUROLOGICAL: sedated on mech vent.(Fentanyl, Diprivan) appears calm and not stimulated.+ Blinks some was stimuli. + Grimace with stimulation. Localizes to touch right upper extremity, bilateral lower extremities. No movement left upper extremity, positive facial grimace with pain to left upper. PSYCHIATRIC: No obvious anxiety-- limited assess due to condition/sedation. . . Diagnostic Tests Laboratory Laboratory Tests Test 610/15/16 10/16/16 10/16/16 11:05 13:15 05:40 12:10 White Blood Count 12.3 TH/MM3 12.7 TH/MM3 (4.0-11.0) (4.0-11.0) Red Blood Count 2.91 MIL/MM3 2.83 MIL/MM3 (4.50-5.90) (4.50-5.90) Hemoglobin 8.5 GM/DL 8.2 GM/DL (13.0-17.0) (13.0-17.0) Hematocrit 24.6 % 24.4 % (39.0-51.0) (39.0-51.0) Mean Corpuscular Volume 84.8 FL 86.5 FL (80.0-100.0) (80.0-100.0) Mean Corpuscular Hemoglobin 29.1 PG 28.9 PG (27.0-34.0) (27.0-34.0) Mean Corpuscular Hemoglobin 34.4 % 33.4 % Concent (32.0-36.0) (32.0-36.0) Red Cell Distribution Width 14.5 % 14.2 % (11.6-17.2) (11.6-17.2) Platelet Count 413 TH/MM3 395 TH/MM3 (150-450) (150-450) Mean Platelet Volume 7.6 FL 7.7 FL (7.0-11.0) (7.0-11.0) Sodium Level 139 MEQ/L 138 MEQ/L 142 MEQ/L (136-145) (136-145) (136-145) Potassium Level 3.8 MEQ/L 3.7 MEQ/L (3.5-5.1) (3.5-5.1) Chloride Level 99 MEQ/L 100 MEQ/L (98-107) (98-107) Carbon Dioxide Level 34.0 MEQ/L 31.1 MEQ/L (21.0-32.0) (21.0-32.0) Anion Gap 6 MEQ/L (5-15) 7 MEQ/L (5-15) Blood Urea Nitrogen 16 MG/DL (7-18) 17 MG/DL (7-18) Creatinine 0.62 MG/DL 0.77 MG/DL (0.60-1.30) (0.60-1.30) Estimat Glomerular Filtration 157 ML/MIN 122 ML/MIN Rate (>89) (>89) Random Glucose 124 MG/DL 115 MG/DL (74-106) (74-106) Calcium Level 8.7 MG/DL 8.7 MG/DL (8.5-10.1) (8.5-10.1) Prealbumin 24 MG/DL (20-40) Procalcitonin 0.75 ng/mL (0.00-0.50) Bronchoalveolar Lavage WBC 5500 /MM3 Bronchoalveolar Lavage RBC 9000 /MM3 Bronchoalveolar Lavage 98 % Neutrophils Bronchoalveolar Lavage 2 % Lymphocytes Bronchoalveolar Lavage Diff Comment Lavage Fluid Total Volume 15.0 ML Lavage Fluid Total WBC Count 82.000 MILLION (4.700-7.100) Test 10/16/16 10/16/16 10/17/16 10/17/16 19:35 20:05 00:15 06:15 Sodium Level 140 MEQ/L 145 MEQ/L 147 MEQ/L (136-145) (136-145) (136-145) Urine Color YELLOW (YELLW/STRAW) Urine Turbidity CLOUDY (CLEAR) Urine pH 7.5 (5.0-8.5) Urine Specific [place] 1.019 (1.002-1.035) Urine Protein TRACE mg/dL (NEG-TRACE) Urine Glucose (UA) NEG mg/dL (NEG) Urine Ketones NEG mg/dL (NEG) Urine Occult Blood SMALL (NEG) Urine Nitrite NEG (NEG) Urine Bilirubin NEG (NEG) Urine Urobilinogen 4.0 MG/DL (LESS THAN 2.0) Urine Leukocyte Esterase SMALL (NEG) Urine RBC 94 /hpf (0-3) Urine WBC 14 /hpf (0-5) Urine Squamous Epithelial <1 /hpf (0-5) Cells Urine Amorphous Sediment SMALL Urine Bacteria RARE /hpf (NONE) Urine Mucus FEW /lpf (OCC) Microscopic Urinalysis Comment CATH-CULTURE IND White Blood Count 14.3 TH/MM3 (4.0-11.0) Red Blood Count 2.68 MIL/MM3 (4.50-5.90) Hemoglobin 7.8 GM/DL (13.0-17.0) Hematocrit 22.9 % (39.0-51.0) Mean Corpuscular Volume 85.7 FL (80.0-100.0) Mean Corpuscular Hemoglobin 29.1 PG (27.0-34.0) Mean Corpuscular Hemoglobin 33.9 % Concent (32.0-36.0) Red Cell Distribution Width 14.1 % (11.6-17.2) Platelet Count 363 TH/MM3 (150-450) Mean Platelet Volume 7.4 FL (7.0-11.0) Potassium Level 3.4 MEQ/L (3.5-5.1) Chloride Level 113 MEQ/L (98-107) Carbon Dioxide Level 25.6 MEQ/L (21.0-32.0) Anion Gap 8 MEQ/L (5-15) Blood Urea Nitrogen 24 MG/DL (7-18) Creatinine 0.75 MG/DL (0.60-1.30) Estimat Glomerular Filtration 126 ML/MIN Rate (>89) Random Glucose 129 MG/DL (74-106) Calcium Level 8.1 MG/DL (8.5-10.1) Test 10/17/16 10/17/16 10/18/16 12:15 20:50 03:45 Sodium Level 149 MEQ/L 151 MEQ/L 153 MEQ/L (136-145) (136-145) (136-145) Potassium Level 3.4 MEQ/L 3.6 MEQ/L (3.5-5.1) (3.5-5.1) White Blood Count 16.7 TH/MM3 (4.0-11.0) Red Blood Count 2.99 MIL/MM3 (4.50-5.90) Hemoglobin 8.3 GM/DL (13.0-17.0) Hematocrit 26.0 % (39.0-51.0) Mean Corpuscular Volume 87.0 FL (80.0-100.0) Mean Corpuscular Hemoglobin 27.9 PG (27.0-34.0) Mean Corpuscular Hemoglobin 32.1 % Concent (32.0-36.0) Red Cell Distribution Width 14.6 % (11.6-17.2) Platelet Count 371 TH/MM3 (150-450) Mean Platelet Volume 7.6 FL (7.0-11.0) Neutrophils (%) (Auto) 86.4 % (16.0-70.0) Lymphocytes (%) (Auto) 8.4 % (9.0-44.0) Monocytes (%) (Auto) 4.2 % (0.0-8.0) Eosinophils (%) (Auto) 0.5 % (0.0-4.0) Basophils (%) (Auto) 0.5 % (0.0-2.0) Neutrophils # (Auto) 14.4 TH/MM3 (1.8-7.7) Lymphocytes # (Auto) 1.4 TH/MM3 (1.0-4.8) Monocytes # (Auto) 0.7 TH/MM3 (0-0.9) Eosinophils # (Auto) 0.1 TH/MM3 (0-0.4) Basophils # (Auto) 0.1 TH/MM3 (0-0.2) CBC Comment DIFF FINAL Differential Comment Chloride Level 116 MEQ/L (98-107) Carbon Dioxide Level 26.8 MEQ/L (21.0-32.0) Anion Gap 10 MEQ/L (5-15) Blood Urea Nitrogen 25 MG/DL (7-18) Creatinine 0.68 MG/DL (0.60-1.30) Estimat Glomerular Filtration 141 ML/MIN Rate (>89) Random Glucose 125 MG/DL (74-106) Calcium Level 8.5 MG/DL (8.5-10.1) Magnesium Level 2.4 MG/DL (1.5-2.5) Total Bilirubin 0.5 MG/DL (0.2-1.0) Aspartate Amino Transf 37 U/L (15-37) (AST/SGOT) Alanine Aminotransferase 38 U/L (12-78) (ALT/SGPT) Alkaline Phosphatase 123 U/L (45-117) Total Protein 7.7 GM/DL (6.4-8.2) Albumin 1.7 GM/DL (3.4-5.0) Result Diagram: 10/18/16 0345 10/18/16 0345 Microbiology Microbiology Date/Time Procedure Status Source Growth 10/15/16 13:15 Gram Stain - Final Complete Bronchial Washings Right Upper Lobe 10/15/16 13:15 Bronchial Culture - Final Complete Enterobacter Cloacae 10/15/16 13:15 Acid Fast Stain Worksheet Bronchial Washings Right Upper Lobe Pending 10/15/16 13:15 Mycobacterial Culture Worksheet Bronchial Washings Right Upper Lobe Pending 10/15/16 13:15 Fungal Smear - Final Resulted Bronchial Washings Right Upper Lobe NO FUNGAL ELEMENTS SEEN. 10/15/16 13:15 Fungal Culture Resulted Bronchial Washings Right Upper Lobe Pending 10/16/16 19:45 Gram Stain - Final Complete Sputum Endotracheal 10/16/16 19:45 Sputum Culture - Final Complete Enterobacter Cloacae 10/16/16 20:05 Urine Culture - Final Complete Urine Catheterized Urine NO GROWTH IN 48 HOURS. 10/16/16 20:51 Aerobic Blood Culture - Preliminary Resulted Blood Peripheral NO GROWTH IN 1 DAY 10/16/16 20:51 Anaerobic Blood Culture - Preliminary Resulted Blood Peripheral NO GROWTH IN 1 DAY 10/16/16 21:00 Aerobic Blood Culture - Preliminary Resulted Blood Peripheral NO GROWTH IN 1 DAY 10/16/16 21:00 Anaerobic Blood Culture - Preliminary Resulted Blood Peripheral NO GROWTH IN 1 DAY Imaging Last Impressions Chest X-Ray 10/18/16 0600 Signed Impressions: Service Date/Time: October 04:52 - CONCLUSION: Mild infiltrate in the right lower lobe. Central line in good position. Loyd Black MD Head CT 10/16/16 0000 Signed Impressions: Service Date/Time: Sunday, October 16, 2016 04:37 - CONCLUSION: Large area of edema in the right temporal lobe with now some central areas of hemorrhage clearly more impressive than on the , in particular the amount of hemorrhage present. I don't see drainable collection, it is more of an elongated curvilinear area. Small area stroke and edema in the medial left parietal lobe. Improvement in the lower left lateral parietal lesion with much less edema today Loyd Black MD Brain MRI 09/30/16 1659 Signed Impressions: Service Date/Time: Friday, September 30, 2016 17:42 - CONCLUSION: Numerous bilateral cerebral and cerebellar acute or subacute infarcts that are most likely embolic. Please see above. No mass or evidence of abscess. 4 mm of leftward midline shift. Small subarachnoid blood. Michael Freitas MD Renal Ultrasound 09/30/16 0000 Signed Impressions: Service Date/Time: Friday, September 30, 2016 18:45 - CONCLUSION: Ultrasound appearance of the kidneys within normal limits. Carrera catheter in the urinary bladder. Nonspecific splenomegaly incidentally noted. Michael Frietas MD Head Magnetic Resonance Angiography 09/30/16 0000 Signed Impressions: Service Date/Time: Friday, September 30, 2016 17:42 - CONCLUSION: No occlusion, aneurysm or other acute intracranial vascular abnormality demonstrated. Michael Freitas MD Procedures 09/30left subclavian central line, left radial arterial line 6/2-right subclavian central line 6/-tracheostomy, bronchoscopy Assessment and Plan Disease Oriented Problem List: (1) Intracranial hemorrhage (2) Sepsis (3) Elevated troponin (4) Subarachnoid hemorrhage (5) Cerebral edema (6) Metabolic encephalopathy (7) Acute respiratory failure with hypoxia (8) Septic shock due to Staphylococcus aureus (9) Rash and nonspecific skin eruption (10) Substance abuse Symptom Scale: (1) Dyspnea 0-10 Scale: Unable to quantify (2) Encephalopathy 0-10 Scale: Unable to quantify (3) Agitation 0-10 Scale: Unable to quantify (4) Constipation 0-10 Scale: Unable to quantify Pertinent Non-Medical Issues Psychosocial:originally from [place], lived in [place] since . HS education. Was incarcerated and then in drug rehabilitation in [facility]. 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 Father (parents ) lived in [place] with support from family there. Supported by local friends, coworkers, apartment landlord. Spiritual:believes in God, no particular affiliation. would want ongoing admission nurse support. Legal: Patient is not able to participate in decision-making due to clinical condition. He is not . Per [place] statutes his parents would be legal decision makers, mother is serving as primary supported by his sister and father. She reports she has POA paperwork. Ethical issues impacting care: Important Contacts mother Felicita Roberts [phone] (HCP) sister Elizabeth Rios [phone] father Pradeep Rios [phone] . 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 Severe aortic regurgitation and possible leaflet perforation, CV consult is pending. He additionally developed small area of brain hemorrhage. He remains critically ill. Possible he can recover with prolonged resuscitation , prolonged ICU course. Remains very high risk for further complications and setbacks though possible he can survive this initial injury/illness. Code Status: Full Code Plan * Legal decision maker: Patient is not able to participate in decision-making due to clinical condition. He is not . Per [place] statutes his parents would be legal decision makers, mother is serving as primary supported by his sister and father. She reports she has POA paperwork. (palliative SW reviewed and indicates that it does not include medical decision-making) [ patient sister Anay providing support to patient mother and assists her with decision making.] * Goals: Ongoing meetings with patient family, daily or as needed. Patient sister appears to have a reasonable understanding of conditions, prognosis. Patient mother appears to have a very simple understanding of conditions and prognosis. Father also seems to have a very simple understanding of conditions and prognosis. Goals remain aggressive. Family has agreed to trach /PEG. Patient's mother is hoping for a miracle and wants to continue whatever measures available to help patient recover. They are open to ongoing to conversations as clinical course evolves. * CODE STATUS: full SYMPTOMS: * Dyspnea- intubated for AMS. remains on mech vent; sedated, no tachypnea observed or reported while on sedative- when lightened agitation/tachypnea ; ongoing significant agitation, and coughing/respiratory distress requiring Today breathing comfortably on propofol, fentanyl. CXR 10/18= Mild infiltrate in the right lower lobe. +Enterobacter bronchial washing,on levaquin * Agitation- hx substance abuse; hx ADD, on adderall.+embolic CVA,+hemorrhage. currently sedated with diprivan, fentanyl, +agitation when sedation lightened; nursing titrating/ lightening as tolerated * Encephalopathy- multifactorial-- +sepsis, embolic CVA, + hemorrhage, hx substance abuse, EEG neg seizure ; repeat CT brain 10/16= Large area of edema in the right temporal lobe with now some central areas of hemorrhage clearly more impressive than on the , in particular the amount of hemorrhage present. Small area stroke and edema in the medial left parietal lobe. Improvement in the lower left lateral parietal lesion with much less edema today . No surgical interventions per neuro, cont medical management , increase sodium level w hypertonic saline as needed. MRI brain today ordered/pending. * Constipation - BM 10/12. On docusate daily and senna when necessary. Would recommend changing senna to scheduled, recommend dulcolax suppository prn no BM - d/w nsg, pt has received 2 doses prn senna. No BM yet. Palliative care will continue to follow during hospital course as condition evolves, to assist patient/decision-maker with understanding of medical conditions, weighing benefits/burdens of treatment options, for clarification of goals of treatment. Additionally will assist with any symptoms of palliative concern. . Attestation To help prompt me to consider important information that might be impacting today's encounter and assessment, information from prior notes written by myself or my colleagues may have been "brought forward" into today's note. My signature on this note, however, is an attestation that I personally performed the exam, history, and/or decision-making noted today, and, unless otherwise indicated, the interactions with patient, family, and staff as well as the review of records all occurred today. I also attest that the listed assessment and stated plan reflect my best clinical judgment today based on the combination of historical information, prior notes, and today's exam/ interactions. When time spent is documented, it refers only to time spent today by the signer, or if indicated, combined time spent today by collaborating physician/nurse practitioner. Sandy Liu Oct 18, 2016 10:50
[2016-10-18] MEDS ORDERED: GADODIAMIDE PF 287 MG/ML 5 ML VIAL (for RAD MRI) IV ONE (12:28)
--- NOTE | 2016-10-18 12:46 | RADRPT ---
EXAM DATE/TIME: 10/18/2016 11:38 [facility] COMPARISON: MRI BRAIN W & W/O CONTRAST, September 30, 2016, 17:42. CT BRAIN W/O CONTRAST, October 16, 2016, 4:37. MRA B RAIN W/O CONTRAST, September 30, 2016, 17:42. INDICATIONS : Altered mental status. Possible abscess. CONTRAST: 14 cc Omniscan (gadodiamide) IV MEDICAL HISTORY : Endocarditis. SURGICAL HISTORY : Dental surgery, cyst removed from base of spine. ENCOUNTER: Subsequent ACUITY: 2 weeks PAIN SCORE: Nonresponsive. LOCATION: cranial TECHNIQUE: Multiplanar, multisequence MRI of the brain was performed both prior to and following the administrat ion of paramagnetic contrast. FINDINGS: Postcontrast MRI imaging demonstrates large areas of abnormal contrast-enhancement involving the righ t temporal and parietal cortex, the basal ganglia on the right, a sizable area of abnormal enhancemen t involving the left occipital cortex is evident as well. In addition, there are small fluid collecti ons with an enhancing rim seen in the left occipital cortex and in the medial aspect of the left rafa etal cortex. These areas are concerning for abscess or cerebritis. There is some degree of fluid with in the area of contrast enhancement within the right posterior temporal cortex as well. Again, with a history of endocarditis this would be concerning for possible cerebritis/abscess. The T2-weighted images demonstrate large areas of vasogenic edema involving most of the right tempora l and portions of the right parietal cortex. There are large areas of edema seen in the watershed dis tribution posteriorly on the left and scattered areas of edema present in the high sulci and gyri crow aterally. There is significant mass effect with 7 mm of right to left falcine shift. The diffusion restricted images demonstrate sizable areas of abnormal restricted diffusion involving the right temporal cortex, the right occipital cortex and the left posterior parietal cortex. No abnormal fluid collections are identified. Examination of the posterior fossa demonstrates abnormal edema and enhancement within the right cereb ellar hemisphere as well. CONCLUSION: 1. Grossly abnormal examination demonstrating large areas of edema with abnormal contrast enhancement in both hemispheres. There are focal rim enhancing fluid collection seen in the left posterior parie kurtis cortex, centrally and the high left parietal cortex and in the right posterior temporal cortex. F indings would be concerning for cerebritis and abscess. 2. 7.5 mm of [id number] falcine shift. 3. Focal area of abnormal enhancement and edema within the right side of the cerebellum again concern ing for cerebritis/abscess in this patient with known history of endocarditis. 4. This patient's examination has significantly worsened when compared to previous dated 09/30/16. Cody Coello MD on October 18, 2016 at 12:36 Board Certified Radiologist. This report was verified electronically.
--- NOTE | 2016-10-18 13:18 | HHI.GIFU ---
Subjective Remarks TF tolerated well and no residuals. Objective Vitals I&O Vital Signs Date Time Temp Pulse Resp B/P Pulse Ox O2 Delivery O2 Flow Rate FiO2 10/18/16 11:15 100 100 10/18/16 11:09 97 40 10/18/16 08:20 98 40 10/18/16 06:00 105 10/18/16 04:00 86 10/18/16 04:00 50 10/18/16 04:00 98.9 95 14 128/65 100 10/18/16 03:53 97 40 10/18/16 02:00 105 10/18/16 00:40 99 40 10/18/16 00:00 105 10/18/16 00:00 99.2 97 14 115/46 97 10/18/16 00:00 50 10/17/16 22:00 105 10/17/16 20:00 99.8 106 14 132/50 100 10/17/16 20:00 105 10/17/16 20:00 50 10/17/16 19:47 99 40 10/17/16 18:00 109 10/17/16 16:02 100 40 10/17/16 16:00 50 10/17/16 16:00 104 10/17/16 16:00 98.6 110 21 130/48 100 10/17/16 14:00 105 I/O 10/17/16 10/17/16 10/17/16 10/18/16 10/18/16 10/18/16 07:00 15:00 23:00 07:00 15:00 23:00 Intake Total 1167 ml 1214 ml 950 ml 891 ml Output Total 2350 ml 1900 ml 850 ml 1900 ml Balance -1183 ml -686 ml 100 ml -1009 ml Intake IV Total 1077 ml 1154 ml 950 ml 891 ml Tube Feeding 60 ml Tube Irrigant 30 ml 60 ml Output Urine Total 2350 ml 1900 ml 850 ml 1900 ml # Bowel Movements 0 0 Laboratory Laboratory Tests Test 10/17/16 10/18/16 10/18/16 20:50 03:45 10:00 Sodium Level 151 153 152 Potassium Level 3.4 3.6 White Blood Count 16.7 Red Blood Count 2.99 Hemoglobin 8.3 Hematocrit 26.0 Mean Corpuscular Volume 87.0 Mean Corpuscular Hemoglobin 27.9 Mean Corpuscular Hemoglobin 32.1 Concent Red Cell Distribution Width 14.6 Platelet Count 371 Mean Platelet Volume 7.6 Neutrophils (%) (Auto) 86.4 Lymphocytes (%) (Auto) 8.4 Monocytes (%) (Auto) 4.2 Eosinophils (%) (Auto) 0.5 Basophils (%) (Auto) 0.5 Neutrophils # (Auto) 14.4 Lymphocytes # (Auto) 1.4 Monocytes # (Auto) 0.7 Eosinophils # (Auto) 0.1 Basophils # (Auto) 0.1 CBC Comment DIFF FINAL Differential Comment Chloride Level 116 Carbon Dioxide Level 26.8 Anion Gap 10 Blood Urea Nitrogen 25 Creatinine 0.68 Estimat Glomerular Filtration 141 Rate Random Glucose 125 Calcium Level 8.5 Magnesium Level 2.4 Total Bilirubin 0.5 Aspartate Amino Transf 37 (AST/SGOT) Alanine Aminotransferase 38 (ALT/SGPT) Alkaline Phosphatase 123 Total Protein 7.7 Albumin 1.7 Date/Time Procedure Status Source Growth 10/16/16 21:00 Aerobic Blood Culture - Preliminary Resulted Blood Peripheral NO GROWTH IN 2 DAYS 10/16/16 21:00 Anaerobic Blood Culture - Preliminary Resulted Gram Positive Cocci 10/16/16 20:05 Urine Culture - Final Complete Urine Catheterized Urine NO GROWTH IN 48 HOURS. 10/16/16 19:45 Gram Stain - Final Complete Sputum Endotracheal 10/16/16 19:45 Sputum Culture - Final Complete Enterobacter Cloacae 10/15/16 13:15 Fungal Smear - Final Resulted Bronchial Washings Right Upper Lobe NO FUNGAL ELEMENTS SEEN. 10/15/16 13:15 Fungal Culture Resulted Bronchial Washings Right Upper Lobe Pending 10/15/16 13:15 Acid Fast Stain Worksheet Bronchial Washings Right Upper Lobe Pending 10/15/16 13:15 Mycobacterial Culture Worksheet Bronchial Washings Right Upper Lobe Pending Physical Exam HEENT: Intubated CHEST: Chest is clear to auscultation and percussion. CARDIAC: Regular rate and rhythm with no murmur gallop or rubs. ABDOMEN: Soft, nondistended, nontender; no hepatosplenomegaly; bowel sounds are present in all four quadrants. EXTREMITIES: No clubbing, cyanosis, or edema. SKIN: Normal; no rash; no jaundice. 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 D/w mother, she wants to proceed with PEG. PLAN - Follow post PEG placement orders - Will sign off for now, please notify us if needed. Maria Elena Gomez MD Oct 18, 2016 13:18 This pt seen by myself and Dr Gomez and this note is written on his behalf Maria Elena Gomez MD Oct 18, 2016 13:18
--- NOTE | 2016-10-18 13:38 | HHI.CCPN ---
Subjective Remarks/Hospital Course Hospital Course: This is a 26yM who presents to the ED for altered mental status. On arrival, the patient was obtunded and emergently intubated. His roommate is with him and cannot provide much medical history. The remainder of the history is per EMS and ER documentation and my discussion with the ER physician. Per EMS and ED reports, patient was seen approximately 10 days prior to admission by an unknown physician in the clinic and given antibiotic for fever. After taking the antibiotic, the patient had a new red rash on his hands and healing on his feet. He he was seen in the emergency department 2 days prior to admission for low-grade fever and congestion, generalized weakness, lightheadedness. At that time she was given prescription for prednisone 40 mg daily for 5 days. The patient's landlord apparently found the patient today with altered mental status and called EMS. When EMS arrived, his GCS was 10. There is reports that the patient has a history of substance abuse and was recently in rehabilitation. I did talk to the roommate who confirms that the patient had recently gotten out of rehabilitation and was living with him. The remainder does say that he does not think the patient has been taking any illicit substances recently. In the emergency department, the patient was hypotensive, tachycardic. His head CT is significant for significant areas of infarction in the right frontal , temporal, and cerebellar regions as well as a small area of subarachnoid hemorrhage in the superior right parietal region. Patient has early 3 mm of midline shift as well as effacement on the right. Patient's laboratory data is significant for white blood cell count of 19,000, hemoglobin of 9.9, lactate of 3.7, creatinine 1.69, CK 372, troponin of 11.9. His urine drug screen is positive for opiates and amphetamines. I performed a bedside critical care ultrasound which demonstrated hyperdynamic left ventricular function and what appears to be aortic valve vegetations and I measured to be proximally 0.9 x 8.8 cm. This is associated with what appears to be severe aortic regurgitation. There is no pericardial effusion. Right ventricular function is preserved. A formal echo has been ordered to confirm these findings. Critical care medicine has been consulted to evaluate and manage his shock, altered mental status, multiple areas of infarction, and subarachnoid hemorrhage. Subjective: 10/01: seen and examined around 06:30am. patient on norepinephrine at 6 mcg/min , persistently in shock. patient localizes to pain x 4 extremities. repeat interval head CT with 4mm midline shift. echo with significant aortic valve vegetations and moderate aortic insufficiency. 10/02: now following commands intermittently on the RUE, still localizing in LUE , BLE. off vasopressors this morning. cultures growing staph, sensitivities to follow. 10/03: tachycardic overnight. off vasopressors this morning. not following commands this morning. still persistently febrile and wbc uptrended to 20k. 10/04: still encephalopathic. EEG negative for seizure activity. received 1 trial dose of oxacillin yesterday without evidence of allergic reaction. will let ID guide this therapy, but safe from a critical care standpoint to pursue oxacillin therapy. cultures persistently positive and wbc uptrending. still febrile. 10/05: persistent encephalopathy. but now briskly purposeful x 4. now on oxacillin. discussed with ID, and will plan to start gent induction. wbc downtrending today. still febrile. will continue surveilance cultures q48h until 2 sets negative. 10/06: neuro exam unchanged. still purposeful. blood cultures negative x 24h. will re-draw today. still persists on 1mcg/min levophed, though this has also slightly improved from yesterday. 10/07: neuro exam stable. very agitated, not following commands. blood cultures negative x 48h. off levophed. 10/08: neuro exam stable. CT with increased midline shift and persistent edema, particularly right side. back on levophed. febrile. wbc stable. 10/09: sodium not at goal, likely due to normal renal function. follows commands in the RUE, which is new. spontaneously moves BLE, LUE. wbc downtrending. hgb 7 this AM, but no other signs of end-organ damage from low o2 delivery. 10/10 failed to SBT today due to rapid shallow breathing also tachycardia. Patient found to have a significant anemia below 7 will transfuse and reattempt SBT later today 10/11: Flash pulmonary edema today requiring sedation protocol and vent manipulations. Hypoxemia to 70s. 10/12: Some improvement in gas exchange after heavy sedation and relaxant. 10/13: Tmax 100.3, requiring high dose sedation. 10/14: Leukocytosis resolving. Still way ahead on free water - increase diuretics. Prealbumin , adjust TFs accordingly. 10/15: deeply sedated s/p severe agitation from prior causing pulmonary edema and hypoxia. talked with family at length, not clinically improving on pathway, will require tracheostomy and PEG tube for further improvements. also still significantly + on volume. still on vasopressors, but does not clinically appear to be in significant shock. 10/16: CT scan today with new hemorrhage into right temporal stroke area with 9mm midline shift. neurosurgery aware. no significant improvements in neurologic exam. repeat echo pending. 10/17: Neuro exam remains unchanged. Per Dr. Michelle CT from 10/16/16 showed small amount of new hemorrhage circumferentially along the area of the previous right temporal infarct. There is increased right temporal edema and mass effect but relatively focal primarily along the ventricle, and there is not significant compression along the brainstem or cisterns. Continued medical management, increased Na 145-150. Neuro exam remains unchanged Tmax 100.3, white count increased to 14.3. Enterobacter in BAL 10/15, start Levofloxacin 10/18 MRI shows multiple brain abscesses bilaterally. Large R sided stroke with midline shift 7.[address] Michelle will review images. ID feels oxacillin sufficient. Clinically neuro slightly improved. Spontaneous eye opening moves right upper and lower extremities spontaneously. (Mother states he squeezes hand to command) Objective Vital Signs Date Time Temp Pulse Resp B/P Pulse Ox O2 Delivery O2 Flow Rate FiO2 10/18/16 11:15 100 100 10/18/16 06:00 105 10/18/16 04:00 98.9 14 128/65 Intake and Output 10/17/16 10/17/16 10/18/16 08:00 16:00 00:00 Intake Total 1167 ml 1214 ml 950 ml Output Total 2350 ml 1900 ml 850 ml Balance -1183 ml -686 ml 100 ml Result Diagram: 10/18/16 0345 10/18/16 1000 Other Results Microbiology Date/Time Procedure Status Source Growth 10/16/16 19:45 Gram Stain - Final Complete Sputum Endotracheal 10/16/16 19:45 Sputum Culture - Final Complete Enterobacter Cloacae 10/16/16 20:05 Urine Culture - Final Complete Urine Catheterized Urine NO GROWTH IN 48 HOURS. Imaging Last Impressions Head CT 09/30/16 1453 Signed Impressions: Service Date/Time: Friday, September 30, 2016 16:31 - CONCLUSION: Noncontrast CT findings of concern for multiple intra-axial masses. There is small acute subarachnoid blood present and about 3 mm of leftward midline shift. MRI of the brain with and without contrast recommended. Michael Freitas MD Chest X-Ray 09/30/16 1453 Signed Impressions: Service Date/Time: Friday, September 30, 2016 15:23 - CONCLUSION: No acute cardiopulmonary disease demonstrated. Appropriate endotracheal tube tip position. Nasogastric tube courses into the stomach, tip not included on the study. Michael Freitas MD Objective Remarks GENERAL: Young male, lying in bed, intubated, critically ill HEENT: Pupils 3 mm, equal, sluggishly reactive. Mucous membranes moist. NECK: No JVD. Trachea midline. Orotracheally intubated CHEST: Equal chest rise. PRVC 40%. vigorous cough with thin secretions. CARDIOVASCULAR: Tachycardic rate 120/min, regular rhythm. + JVD. Levophed 6 mcg/ min ABDOMEN: Soft, nontender, nondistended. No guarding. MUSCULOSKELETAL: rash on feet has improved. No peripheral edema. Distal pulses 2+. NEUROLOGICAL: WING. Brisk withdrawal x4 and spont eye opening to pain. Appears to squeeze R hand for mother. 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 Has hemorrhagic conversion and midline shift. MRi today multiple brain abscesses. Overall, his prognosis continues to be poor, and likely worsening. We will continue with supportive care. Remains very critically ill at this time. continue ongoing diuresis. I have updated the family at length today. Plan by systems: Neurologic: Multiple acute septic CVAs, brain abscesses Cerebral edema, Midline shift, 9 mm Small subarachnoid hemorrhage Right temporal hemorrhagic conversion Metabolic encephalopathy Agitated Delirium --MRI shows multiple brain abscesses bilaterally. Large R sided stroke with midline shift 7.[address] Michelle will review images. --Clinically neurologic some slightly improved. Spontaneous eye opening moves right upper and lower extremities spontaneously --Continue hyperosmolar therapy q1h neuro checks --DC all continuous sedation. Use PRN Ativan and fentanyl for agitation and also continue Fentanyl gtt --EEG 10/01- negative for seizures -- s/p failed trial of seroquel. -- melatonin to assist with sleep/wake cycles -- delirium and agitation persists - Precedex trial was a catastrophic failure - he was absolutely wild and put himself in pulmonary edema. - Haldol 5mg iv q6 Respiratory: Acute hypoxic and hypercarbic respiratory failure Vent bundle Head of bed 30 Avoid hypercarbia and hypoxia Wean FiO2 for goal SPO2 greater than 92% -- s/p trach 10/[address] Dominguez/Osiel start CPAP daily, possible TP in next 24 hours Cardiovascular: Aortic valve endocarditis Severe aortic insufficiency, with probable AV perforation Septic,cardiogenic shock Arterial line, central line for invasive central pressure monitoring Abx as described below 2d echo 10/01: aortic valve vegetations, moderate AI. Echo 10/17 Sev AI, probable AV perforation --CTS consulted, will re evaluate for Mini AVR if neuro status improves remains on levophed . continue to wean as tolerated for map > 65. Renal: Acute kidney injury- resolved. Jerez for accurate I's and O's -- Strict I/Os FEN/GI: Hypermagnesemia Metabolic Alkalosis Acute protein calorie malnutritionmild Elevated LFTs Intravascular Volume Overload jevity 1.5, nutrition consult. Daily BMP --Lasix 40mg iv q12h --Diamox 500mg iv q8h x 3 doses. Heme/ID: Anemia, likely secondary to hemolysis from valvulopathy Infective endocarditis Septic shock- resolving. 10/01 blood cultures: MSSA --10/01 sputum culture: MSSA --10/02 blood cultures: MSSA --10/03 blood cultures: MSSA --10/04 bl cx: MSSA --10/05 bl cx: NGTD --10/06 bl cx: NGTD --10/15 Enterobacter in BAL --10/16 blood culture GPC vancomycin, flagyl d/cd 10/02. --oxacillin started 10/02 -- Started levofloxacin to cover Enterobacter 10/17 --gentamicin induction therapy per ID. started 10/05, d/c'd Infectious disease following: Dontfraid Endocrine: Hyperglycemia of critical illness -- SSI, every 6 hours, medium scale TSH 0.16, free T4 1.07, T3 < 0.5: likely sick euthyroid. Prophylaxis: GI Prophylaxis Protonix IV DVT Prophylaxis -- SCDs Holding pharmacologic DVT prophylaxis in the setting of cerebral hemorrhage, multiple brain abscesses Lines: 09/30 radial arterial line --09/30 left SC TLC d/c. New right SCV CVL placed 10/12. --Solitario Overall impression: He remains critically ill. Unable to wean from ventilator. Pulmonary edema persists. New cerebral hemorrhage. Clinically off pathway. This patient remains critically ill with one or more organ systems which are or may become a threat to life. I have spent in excess of 45 minutes discontinuously in the care and management of this patient. This time is exclusive of procedures, and includes, but is not limited to, evaluation of the patient, review of the medical record, discussions with family, consultants, nursing staff, or respiratory therapy, and documentation in the medical record. Mary Rodriguez MD Oct 18, 2016 13:38
[2016-10-18] MEDS: METOPROLOL TARTRATE 5 MG/5 ML VIAL IV PUSH PRN ×2 (14:34→17:53)
[2016-10-18] MEDS: 3% SALINE INJ 500 ML IV SCH (14:36)
[2016-10-18] MEDS: LORazepam 2 MG/ML VIAL IV PUSH PRN ×2 (15:39→19:55)
[2016-10-18] MEDS: NAFCILLIN INJ 2,000 MG in SODIUM CHLORIDE 0.9% INJ 100 ML IV SCH ×2 (16:54→20:59)
[2016-10-18] MEDS ORDERED: METOPROLOL TARTRATE 5 MG/5 ML VIAL IV PUSH ONE (18:45)
[2016-10-18] MEDS: MELATONIN 5 MG TAB PO SCH (20:59)
[2016-10-18] MEDS: POTASSIUM CHLOR 40 MEQ PREMIX 100 ML IV PRN ×2 (22:20→23:53)
[2016-10-19] VITALS (19 sets, daily range): BP systolic 118–140; BP diastolic 49–62; PULSE 102–138; RESP 14–22; TEMP 98.9–99.7; O2SAT 95–100
[2016-10-19] MEDS: FUROSEMIDE 40 MG/4 ML VIAL IV PUSH SCH ×2 (00:35→10:53)
[2016-10-19] MEDS: NAFCILLIN INJ 2,000 MG in SODIUM CHLORIDE 0.9% INJ 100 ML IV SCH ×6 (00:38→20:22)
[2016-10-19] MEDS: HALOPERIDOL LACTATE 5 MG/ML AMP IV SCH ×4 (01:43→20:21)
[2016-10-19] MEDS: LORazepam 2 MG/ML VIAL IV PUSH PRN (01:51)
[2016-10-19] MEDS: NOREPINEPHRINE INJ 4 MG in SODIUM CHLOR 0.9% 250 ML INJ 250 ML IV SCH (03:48)
[2016-10-19] MEDS: CHLORHEXIDINE GLUCONATE 2 % 1 PACK (2 CLOTHS) TOP SCH (04:55)
[2016-10-19 06:00] LABS: HEMATOCRIT 24.5 % (39.0-51.0); MEAN CELL VOLUME 86.3 FL (80.0-100.0); MEAN CORPUSCULAR HEMOGLOBIN 29.6 PG (27.0-34.0); MEAN CORPUSCULAR HGB CONC 34.3 % (32.0-36.0); PLATELET COUNT 347 TH/MM3 (150-450); RED BLOOD COUNT 2.84 MIL/MM3 (4.50-5.90); RED CELL DISTRIBUTION WIDTH 14.4 % (11.6-17.2); REVIEW FLAG FINAL; WHITE BLOOD COUNT 12.2 TH/MM3 (4.0-11.0)
[2016-10-19 06:10] LABS: BICARBONATE 28.3 MEQ/L (21.0-32.0); POTASSIUM 3.7 MEQ/L (3.5-5.1)
--- NOTE | 2016-10-19 08:36 | MB ---
cc: BENNY WILLIAM MD DATE OF CONSULTATION 10/18/16 1990 HISTORY OF PRESENT ILLNESS A 26-year-old male presented to the emergency room with altered mental status. On arrival, apparently the patient was obtunded and emergently intubated. Per the admission notes, the patient was treated 10 days prior to admission and was given an antibiotic for fever. After taking of the antibiotic, the patient developed a red rash on his hands and feet. He was seen in the emergency department two days prior for admission for low grade fever, congestion, lightheadedness. He was treated with some prednisone. Apparently, the patient has a history of substance abuse and was recently in rehabilitation. Toxicology screen was positive for opiates, positive for amphetamines. In the emergency department, apparently he was hypertensive, tachycardiac. They did a CT scan which showed significant areas of infarction in the right frontotemporal cerebellar regions as well as a small area of subarachnoid hemorrhage in the supra right parietal region. Admission data showed white cell count of 19,000, hemoglobin of 9.9, lactic acid 3.7. They did an echocardiogram on the which showed a medium-sized vegetation on the aortic valve, some moderate regurgitation, mild mitral regurgitation, mild tricuspid regurgitation, EF of 50%. Initial blood culture showed staph aureus in 5/6 bottles. Since critical care has been following the patient managing his shock, altered mental status, multiple areas infarction, subarachnoid hemorrhage, he was resuscitated with IV fluids and then placed on pressors. He remained intubated. They did an EEG on the secondary to encephalopathy. An EEG was negative for seizure activity. He still persisted with encephalopathy. The patient remained intubated, failed spontaneous breathing trials, also became anemic and required transfusions. He has been followed by multiple providers including Infectious Disease, neurosurgery, palliative care, also GI. He underwent a trache and PEG on the , still at this time on low-dose pressors. On October 16, he underwent CT scan which showed a new hemorrhage in the right temporal area with a 9 mm midline shift. On 10/17, he was noted to have some enterobacter in his sputum, was started on Levaquin. Today he underwent MRI which showed multiple brain abscesses bilaterally, large right-sided stroke with midline shift of 7.5 mm. Once his sedation was weaned down, he spontaneously opened his eyes and moving his right upper extremity. We were consulted to evaluate for aortic valve replacement. PAST MEDICAL HISTORY Reviewed from the chart 1. ADHD 2. History of substance abuse 3. Post rehab placement 4. Degenerative disk disease PAST SURGICAL HISTORY Unknown. ALLERGIES SULFA TORADOL MEDICATIONS Reported meds recent 1. Acyclovir 2. Meclizine 3. Ibuprofen with prednisone. Currently on 1. Nafcillin 2. 3 mcg of Levophed 3. Levaquin 4. Lasix. REVIEW OF SYSTEMS Unobtainable. PHYSICAL EXAMINATION VITAL SIGNS: On exam, blood pressure 128/60, heart rate of 86, temperature max 98.9. He is on 50% FIO2, O2 sat is 100%. GENERAL: The patient is currently sedated with some propofol, lying in bed. He has a trache in place. HEENT: Pupils are approximately 3 mm, equal, sluggish, reactive. RESPIRATORY: Equal chest rise. he is on PRBC mode, now he is on 40%. He does have a cough and gag. CARDIOVASCULAR: Slightly tachycardiac, mild JVD with Levophed at 3 mcg, some mild generalized edema. ABDOMEN: Soft, nontender. He has a peg tube in place. EXTREMITIES: Trace edema. Good distal pulses. NEUROLOGIC: He does withdraw to pain. Spontaneously opens to pain, clearly has some left hemiplegia. IMPRESSION This is an fortunate 26-year-old male with aortic valve endocarditis secondary to IV drug use with multiple large distribution CVAs, now with multiple brain abscesses, persistent metabolic encephalopathy, hypoxemic respiratory failure with status post tracheostomy, status post agitated delirium. Recommend continued supportive care at this time. He needs a full four weeks at least for antibiotic therapy and at least six weeks out from any hemorrhagic intracranial hemorrhage prior to the evaluation for any kind of cardiovascular surgery and evaluation for the aortic valve replacement. We will continue to follow in hopes that this young man can improve. I have updated the sister who was at the bedside and we will continue again to follow if neuro status improves. Dictated by CHAPIN Orantes Benny CALHOUN /5:06 PM /8:30 AM
[2016-10-19] MEDS: SENNOSIDES SYRUP 8.8 MG/5 ML CUP G-TUBE PRN (08:44)
[2016-10-19] MEDS: METOPROLOL TARTRATE 5 MG/5 ML VIAL IV PUSH PRN (08:44)
[2016-10-19] MEDS: DOCUSATE SODIUM 100 MG/10 ML UDC G-TUBE SCH ×2 (08:44→20:21)
[2016-10-19] MEDS: ARTIFICIAL TEARS OPTH SOLN 15 ML BTL EACH EYE SCH ×3 (08:45→17:40)
[2016-10-19] MEDS: PANTOPRAZOLE SODIUM 40 MG VIAL IV SCH (08:45)
[2016-10-19] MEDS: CHLORHEXIDINE 0.12% (ORAL KIT) 15 ML CUP MT SCH ×2 (08:45→20:00)
[2016-10-19] MEDS: SODIUM CHLORIDE 0.9% FLUSH 10 ML FLUSH IV FLUSH SCH ×2 (08:45→20:22)
[2016-10-19] MEDS: LEVOFLOXACIN 750 MG PREMIX INJ 150 ML IV SCH (08:45)
[2016-10-19] MEDS: BENEPROTEIN POWDER 1 PACK G-TUBE SCH ×3 (08:45→17:40)
--- NOTE | 2016-10-19 09:18 | HHI.NSPN ---
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 Exam Results Vital Signs Date Time Temp Pulse Resp B/P Pulse Ox O2 Delivery O2 Flow Rate FiO2 10/19/16 08:41 96 40 10/19/16 06:00 102 10/19/16 04:00 98.9 16 124/49 Intake and Output 10/18/16 10/18/16 10/19/16 08:00 16:00 00:00 Intake Total 891 ml 1328 ml 559 ml Output Total 1900 ml 1650 ml 700 ml Balance -1009 ml -322 ml -141 ml Physical Examination GENERAL: Tracheostomy in place. No IV sedation except for when necessary Ativan HEENT: No facial edema or ecchymosis. Sclerae clear and nonicteric CHEST: Respirations clear and regular CARDIOVASCULAR: Regular rhythm. Heart rate 120s-130s ABDOMEN: Abdomen soft, nontender, positive bowel sounds, PEG tube w/enteral feeds. MUSCULOSKELETAL: No extremity edema or cyanosis INTEGUMENTARY: The tip of the right great toe with evolving necrotic area. NEUROLOGICAL: No IV sedation. Awake and alert PERRL 3 mm reactive Spontaneous eye opening. Tracts to the right and left spontaneous and in response to voice. Mild disconjugate gaze. Grasps the right and left hand intermittent to command. Purposeful with the right greater than left upper extremity. Moderate lower extremity movement with stimulation. Lab, Micro, Other Results Laboratory Tests Test 10/18/16 10/18/16 10/18/16 10/19/16 10:00 15:31 21:33 05:00 Sodium Level 152 MEQ/L 152 MEQ/L 155 MEQ/L 156 MEQ/L Potassium Level 3.0 MEQ/L 3.7 MEQ/L White Blood Count 12.2 TH/MM3 Red Blood Count 2.84 MIL/MM3 Hemoglobin 8.4 GM/DL Hematocrit 24.5 % Mean Corpuscular Volume 86.3 FL Mean Corpuscular Hemoglobin 29.6 PG Mean Corpuscular Hemoglobin 34.3 % Concent Red Cell Distribution Width 14.4 % Platelet Count 347 TH/MM3 Mean Platelet Volume 7.7 FL Chloride Level 121 MEQ/L Carbon Dioxide Level 28.3 MEQ/L Anion Gap 7 MEQ/L Blood Urea Nitrogen 26 MG/DL Creatinine 0.87 MG/DL Estimat Glomerular Filtration 106 ML/MIN Rate Random Glucose 129 MG/DL Calcium Level 8.9 MG/DL Medical Decision Making Impression and Plan Impression: 1. Multiple septic emboli secondary areas of ischemia or infarction. Most recent MRI brain with evidence of small areas of residual cerebritis and abscess formation primarily over the left temporoparietal region. The area of edema in the right temporal lobe appears to be primarily an area of infarction with possible cerebritis but no focal abscess formation. Plan: Discussed with motor carrier inspector today. Discussed with family today. Continuing close intensive care neurologic checks. Patient has approximately 8mm of midline shift on the most recent MRI, but his mental status is improving. Continue to keep sodium 145-155 range Follow-up CT scan head next week, or earlier if any change in neurologic function. Pino Michelle MD Oct 19, 2016 09:18
--- NOTE | 2016-10-19 10:50 | HHI.HCPN ---
Reason for visit a. To assist with evaluation and management of symptoms including:dyspnea, encephalopathy, agitation, constipation b. To assist medical decision maker(s) with: better understanding of current medical conditions; weighing benefits/burdens of medical treatment options; making medical treatment decisions. Subjective/Interval History s/p trach , PEG this week. MRI completed yesterday, = Grossly abnormal examination demonstrating large areas of edema with abnormal contrast enhancement in both hemispheres. There are focal rim enhancing fluid collection seen in the left posterior parietal cortex, centrally and the high left parietal cortex and in the right posterior temporal cortex. Findings would be concerning for cerebritis and abscess. 2. 7.5 mm of [id number] falcine shift. 3. Focal area of abnormal enhancement and edema within the right side of the cerebellum again concerning for cerebritis/abscess in this patient with known history of endocarditis. 4. This patient's examination has significantly worsened when compared to previous dated 09/30/16. Neurosurgery continues to follow, notes patient has approximately 8mm of midline shift on the most recent MRI, but his mental status is improving. Continue supportive treatment, follow-up CT scans, neuro assessments. CV surgery evaluated patient yesterday; no interventions planned at this time patient needs at least 4 weeks antibiotics from endocarditis standpoint, and at least 6 weeks from brain hemorrhage standpoint before they could consider surgical intervention. CVS Available as needed. Tmax 99.8. BC from 10/16= Staph Sp Coagulase Negative. ID changed oxacillin to nafcillin. On levaquin for +enterobacter bronchial specimen. Still on Levophed. Nursing titrating as blood pressure tolerates. Nursing attempting to wean sedation today for better neuro assessment. Diprivan off, fentanyl at 125 mics/hour. Nursing reports no following of commands but does open eyes, spontaneous movement of all 4 extremities, significantly less movement from left upper extremity. No bowel movement since 10/12, has had several doses prn Senokot, as well as scheduled daily Colace. Added Dulcolax suppository prn constipation, nursing to give a dose this morning. Abdomen exam is benign. Pt seen in room, sister and some friends at bedside. He has more alert today eyes are open, looking left to right though does not consistently track me. 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 Localizes to touch and moves bilateral lower extremities. Left upper extremity with some spontaneous extension, and seems to withdrawal to pain stimuli. Occasional brow furrow with stimuli. Appears comfortable. Update to sister review recent diagnostics, current treatments, prognosis. All questions answered. She indicates patient mother has gone out to do errands comes in briefly to see patient, I will call her later to provide update. D/w primary RN, critical care Dr Rodriguez. . Family/friend interactions -- later met with pt mother Felicita at bedside, updated, all questions answered. . Advance Directives Living Will: Never completed Health Care Surrogate: Never completed Durable Power of Pattern Checker: Completed, but not made available (mother reports has POA, not clear if this includes medical decision making (SW has reviewed, this does NOT include healthcare decision making) ) Objective Vital Signs Date Time Temp Pulse Resp B/P Pulse Ox O2 Delivery O2 Flow Rate FiO2 10/19/16 08:41 96 40 10/19/16 06:00 102 10/19/16 04:00 119 10/19/16 04:00 98.9 112 16 124/49 97 10/19/16 04:00 40 10/19/16 03:36 99 40 10/19/16 02:00 105 10/19/16 01:38 99 40 10/19/16 00:00 40 10/19/16 00:00 98.9 111 14 118/57 98 10/19/16 00:00 105 10/18/16 22:01 100 40 10/18/16 22:00 105 10/18/16 20:00 115 10/18/16 20:00 99.1 112 16 127/44 99 10/18/16 20:00 40 10/18/16 19:52 99 40 10/18/16 18:00 116 10/18/16 16:08 95 40 10/18/16 16:00 131 10/18/16 16:00 40 10/18/16 16:00 99.8 131 15 117/49 96 10/18/16 14:00 141 10/18/16 13:30 40 10/18/16 12:00 99.0 115 16 130/54 98 10/18/16 12:00 40 10/18/16 12:00 115 10/18/16 11:15 100 100 10/18/16 11:09 97 40 Physical Exam CONSTITUTIONAL/GENERAL: This is an adequately nourished patient, sedated, somewhat arousable TUBES/LINES/DRAINS: Rt SC central line.trach, NGT, carrera catheter , SCDs left radial arterial line SKIN: No jaundice, or lesions. Embolic purpuric lesions on LT great toe. + Sloughing/peeling of skin to Palms of feet, palms of hands CARDIOVASCULAR: regular rhythm without murmur. No peripheral edema, periph pulses palpable RESPIRATORY/CHEST: Symmetric, unlabored respirations on mech vent,tracheostomy midline, clear, some scattered coarseness, breath sounds equal bilat GASTROINTESTINAL: Abdomen soft,flat, nondistended. No palpable masses. No apparent tenderness to exam. TF infusing. BS normoactive. GENITOURINARY: Without palpable bladder distension. Carrera catheter in place clear yellow urine. NEUROLOGICAL: sedated on mech vent.(Fentanyl) appears calm. Pupils are 4 mm, equal and reactive to light. Somewhat arousable/alert at times. Eyes open spontaneously looking around room does not consistently track examiner. Grasped spontaneously with right upper extremity does not follow command. Localizes moves to light touch bilateral lower extremities. Moving all 4 extremities spontaneously. Left upper extremity withdraws to pain, extends spontaneously. PSYCHIATRIC: -- limited assess due to condition/sedation--no apparent anxiety/ agitation . . Diagnostic Tests Laboratory Laboratory Tests Test 10/16/16 10/16/16 10/16/16 10/17/16 12:10 19:35 20:05 00:15 Sodium Level 142 MEQ/L 140 MEQ/L 145 MEQ/L (136-145) (136-145) (136-145) Urine Color YELLOW (YELLW/STRAW) Urine Turbidity CLOUDY (CLEAR) Urine pH 7.5 (5.0-8.5) Urine Specific [place] 1.019 (1.002-1.035) Urine Protein TRACE mg/dL (NEG-TRACE) Urine Glucose (UA) NEG mg/dL (NEG) Urine Ketones NEG mg/dL (NEG) Urine Occult Blood SMALL (NEG) Urine Nitrite NEG (NEG) Urine Bilirubin NEG (NEG) Urine Urobilinogen 4.0 MG/DL (LESS THAN 2.0) Urine Leukocyte Esterase SMALL (NEG) Urine RBC 94 /hpf (0-3) Urine WBC 14 /hpf (0-5) Urine Squamous Epithelial <1 /hpf (0-5) Cells Urine Amorphous Sediment SMALL Urine Bacteria RARE /hpf (NONE) Urine Mucus FEW /lpf (OCC) Microscopic Urinalysis Comment CATH-CULTURE IND Test 10/17/16 10/17/16 10/17/16 10/18/16 06:15 12:15 20:50 03:45 White Blood Count 14.3 TH/MM3 16.7 TH/MM3 (4.0-11.0) (4.0-11.0) Red Blood Count 2.68 MIL/MM3 2.99 MIL/MM3 (4.50-5.90) (4.50-5.90) Hemoglobin 7.8 GM/DL 8.3 GM/DL (13.0-17.0) (13.0-17.0) Hematocrit 22.9 % 26.0 % (39.0-51.0) (39.0-51.0) Mean Corpuscular Volume 85.7 FL 87.0 FL (80.0-100.0) (80.0-100.0) Mean Corpuscular Hemoglobin 29.1 PG 27.9 PG (27.0-34.0) (27.0-34.0) Mean Corpuscular Hemoglobin 33.9 % 32.1 % Concent (32.0-36.0) (32.0-36.0) Red Cell Distribution Width 14.1 % 14.6 % (11.6-17.2) (11.6-17.2) Platelet Count 363 TH/MM3 371 TH/MM3 (150-450) (150-450) Mean Platelet Volume 7.4 FL 7.6 FL (7.0-11.0) (7.0-11.0) Sodium Level 147 MEQ/L 149 MEQ/L 151 MEQ/L 153 MEQ/L (136-145) (136-145) (136-145) (136-145) Potassium Level 3.4 MEQ/L 3.4 MEQ/L 3.6 MEQ/L (3.5-5.1) (3.5-5.1) (3.5-5.1) Chloride Level 113 MEQ/L 116 MEQ/L (98-107) (98-107) Carbon Dioxide Level 25.6 MEQ/L 26.8 MEQ/L (21.0-32.0) (21.0-32.0) Anion Gap 8 MEQ/L (5-15) 10 MEQ/L (5-15) Blood Urea Nitrogen 24 MG/DL (7-18) 25 MG/DL (7-18) Creatinine 0.75 MG/DL 0.68 MG/DL (0.60-1.30) (0.60-1.30) Estimat Glomerular Filtration 126 ML/MIN 141 ML/MIN Rate (>89) (>89) Random Glucose 129 MG/DL 125 MG/DL (74-106) (74-106) Calcium Level 8.1 MG/DL 8.5 MG/DL (8.5-10.1) (8.5-10.1) Neutrophils (%) (Auto) 86.4 % (16.0-70.0) Lymphocytes (%) (Auto) 8.4 % (9.0-44.0) Monocytes (%) (Auto) 4.2 % (0.0-8.0) Eosinophils (%) (Auto) 0.5 % (0.0-4.0) Basophils (%) (Auto) 0.5 % (0.0-2.0) Neutrophils # (Auto) 14.4 TH/MM3 (1.8-7.7) Lymphocytes # (Auto) 1.4 TH/MM3 (1.0-4.8) Monocytes # (Auto) 0.7 TH/MM3 (0-0.9) Eosinophils # (Auto) 0.1 TH/MM3 (0-0.4) Basophils # (Auto) 0.1 TH/MM3 (0-0.2) CBC Comment DIFF FINAL Differential Comment Magnesium Level 2.4 MG/DL (1.5-2.5) Total Bilirubin 0.5 MG/DL (0.2-1.0) Aspartate Amino Transf 37 U/L (15-37) (AST/SGOT) Alanine Aminotransferase 38 U/L (12-78) (ALT/SGPT) Alkaline Phosphatase 123 U/L (45-117) Total Protein 7.7 GM/DL (6.4-8.2) Albumin 1.7 GM/DL (3.4-5.0) Test 10/18/16 10/18/16 10/18/16 10/19/16 10:00 15:31 21:33 05:00 Sodium Level 152 MEQ/L 152 MEQ/L 155 MEQ/L 156 MEQ/L (136-145) (136-145) (136-145) (136-145) Potassium Level 3.0 MEQ/L 3.7 MEQ/L (3.5-5.1) (3.5-5.1) White Blood Count 12.2 TH/MM3 (4.0-11.0) Red Blood Count 2.84 MIL/MM3 (4.50-5.90) Hemoglobin 8.4 GM/DL (13.0-17.0) Hematocrit 24.5 % (39.0-51.0) Mean Corpuscular Volume 86.3 FL (80.0-100.0) Mean Corpuscular Hemoglobin 29.6 PG (27.0-34.0) Mean Corpuscular Hemoglobin 34.3 % Concent (32.0-36.0) Red Cell Distribution Width 14.4 % (11.6-17.2) Platelet Count 347 TH/MM3 (150-450) Mean Platelet Volume 7.7 FL (7.0-11.0) Chloride Level 121 MEQ/L (98-107) Carbon Dioxide Level 28.3 MEQ/L (21.0-32.0) Anion Gap 7 MEQ/L (5-15) Blood Urea Nitrogen 26 MG/DL (7-18) Creatinine 0.87 MG/DL (0.60-1.30) Estimat Glomerular Filtration 106 ML/MIN Rate (>89) Random Glucose 129 MG/DL (74-106) Calcium Level 8.9 MG/DL (8.5-10.1) Result Diagram: 10/19/16 0500 10/19/16 0500 Microbiology Microbiology Date/Time Procedure Status Source Growth 10/16/16 21:00 Aerobic Blood Culture - Preliminary Resulted Blood Peripheral NO GROWTH IN 2 DAYS 10/16/16 21:00 Anaerobic Blood Culture - Preliminary Resulted Staph Sp Coagulase Negative 10/16/16 20:05 Urine Culture - Final Complete Urine Catheterized Urine NO GROWTH IN 48 HOURS. 10/16/16 19:45 Gram Stain - Final Complete Sputum Endotracheal 10/16/16 19:45 Sputum Culture - Final Complete Enterobacter Cloacae 10/15/16 13:15 Fungal Smear - Final Resulted Bronchial Washings Right Upper Lobe NO FUNGAL ELEMENTS SEEN. 10/15/16 13:15 Fungal Culture Resulted Bronchial Washings Right Upper Lobe Pending 10/15/16 13:15 Acid Fast Stain Worksheet Bronchial Washings Right Upper Lobe Pending 10/15/16 13:15 Mycobacterial Culture Worksheet Bronchial Washings Right Upper Lobe Pending Microbiology Date/Time Procedure Status Source Growth 10/16/16 19:45 Gram Stain - Final Complete Sputum Endotracheal 10/16/16 19:45 Sputum Culture - Final Complete Enterobacter Cloacae 10/16/16 20:05 Urine Culture - Final Complete Urine Catheterized Urine NO GROWTH IN 48 HOURS. 10/16/16 20:51 Aerobic Blood Culture - Preliminary Resulted Blood Peripheral NO GROWTH IN 2 DAYS 10/16/16 20:51 Anaerobic Blood Culture - Preliminary Resulted Blood Peripheral NO GROWTH IN 2 DAYS 10/16/16 21:00 Aerobic Blood Culture - Preliminary Resulted Blood Peripheral NO GROWTH IN 2 DAYS 10/16/16 21:00 Anaerobic Blood Culture - Preliminary Resulted Staph Sp Coagulase Negative Imaging Last Impressions Chest X-Ray 10/18/16 0600 Signed Impressions: Service Date/Time: October 04:52 - CONCLUSION: Mild infiltrate in the right lower lobe. Central line in good position. Loyd Black MD Brain MRI 10/18/16 0600 Signed Impressions: Service Date/Time: October 11:38 - CONCLUSION: 1. Grossly abnormal examination demonstrating large areas of edema with abnormal contrast enhancement in both hemispheres. There are focal rim enhancing fluid collection seen in the left posterior parietal cortex, centrally and the high left parietal cortex and in the right posterior temporal cortex. Findings would be concerning for cerebritis and abscess. 2. 7.5 mm of [id number] falcine shift. 3. Focal area of abnormal enhancement and edema within the right side of the cerebellum again concerning for cerebritis/abscess in this patient with known history of endocarditis. 4. This patient's examination has significantly worsened when compared to previous dated 09/30/16. Cody Coello MD Head CT 10/16/16 0000 Signed Impressions: Service Date/Time: Sunday, October 16, 2016 04:37 - CONCLUSION: Large area of edema in the right temporal lobe with now some central areas of hemorrhage clearly more impressive than on the , in particular the amount of hemorrhage present. I don't see drainable collection, it is more of an elongated curvilinear area. Small area stroke and edema in the medial left parietal lobe. Improvement in the lower left lateral parietal lesion with much less edema today Loyd Black MD Renal Ultrasound 09/30/16 0000 Signed Impressions: Service Date/Time: Friday, September 30, 2016 18:45 - CONCLUSION: Ultrasound appearance of the kidneys within normal limits. Carrera catheter in the urinary bladder. Nonspecific splenomegaly incidentally noted. Michael Freitas MD Head Magnetic Resonance Angiography 09/30/16 0000 Signed Impressions: Service Date/Time: Friday, September 30, 2016 17:42 - CONCLUSION: No occlusion, aneurysm or other acute intracranial vascular abnormality demonstrated. Michael Freitas MD Procedures 09/30left subclavian central line, left radial arterial line 10/12-right subclavian central line 10/15-tracheostomy, bronchoscopy Assessment and Plan Disease Oriented Problem List: (1) Intracranial hemorrhage (2) Sepsis (3) Elevated troponin (4) Subarachnoid hemorrhage (5) Cerebral edema (6) Metabolic encephalopathy (7) Acute respiratory failure with hypoxia (8) Septic shock due to Staphylococcus aureus (9) Rash and nonspecific skin eruption (10) Substance abuse Symptom Scale: (1) Dyspnea 0-10 Scale: Unable to quantify (2) Encephalopathy 0-10 Scale: Unable to quantify (3) Agitation 0-10 Scale: Unable to quantify (4) Constipation 0-10 Scale: Unable to quantify Pertinent Non-Medical Issues Psychosocial:originally from [place], lived in [place] since . education. Was incarcerated and then in drug rehabilitation in [facility]. 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 Father (parents ) lived in [place] with support from family there. Supported by local friends, coworkers, apartment landlord. Spiritual:believes in God, no particular affiliation. 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 Legal: Patient is not able to participate in decision-making due to clinical condition. He is not . Per [place] statutes his parents would be legal decision makers, mother is serving as primary supported by his sister and father. She reports she has POA paperwork. Ethical issues impacting care: Important Contacts mother Felicita Roberts [phone] (HCP) sister Elizabeth Rios [phone] father Pradeep Rios [phone] . 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 Severe aortic regurgitation and possible leaflet perforation, CV consult is pending. He additionally developed small area of brain hemorrhage. He remains critically ill. Possible he can recover with prolonged resuscitation , prolonged ICU course. Remains very high risk for further complications and setbacks though possible he can survive this initial injury/illness. Code Status: Full Code Plan * Legal decision maker: Patient is not able to participate in decision-making due to clinical condition. He is not . Per [place] statutes his parents would be legal decision makers, mother is serving as primary supported by his sister and father. She reports she has POA paperwork. (palliative SW reviewed and indicates that it does not include medical decision-making) [ patient sister Anay providing support to patient mother and assists her with decision making.] * Goals: Ongoing meetings with patient family, daily or as needed. Patient sister appears to have a reasonable understanding of conditions, prognosis. Patient mother appears to have a very simple understanding of conditions and prognosis. Father also seems to have a very simple understanding of conditions and prognosis. Goals remain aggressive. Family has agreed to trach /PEG which were completed earlier this week. Patient's mother is hoping for a miracle and wants to continue whatever measures available to help patient recover. They are open to ongoing to conversations as clinical course evolves. * CODE STATUS: full SYMPTOMS: * Dyspnea- intubated for [facility]MS. [facility]; sedated, no tachypnea observed or reported while on sedative- when lightened agitation/tachypnea ; ongoing significant agitation, and coughing/respiratory distress requiring Today breathing comfortably on fentanyl. CXR 10/18= Mild infiltrate in the right lower lobe. +Enterobacter bronchial washing,on levaquin * Agitation- hx substance abuse; hx ADD, on adderall.+embolic CVA,+hemorrhage. currently sedated with diprivan, fentanyl, +agitation when sedation lightened; nursing titrating/ lightening as tolerated--today Diprivan is held for more thorough neuro assessment. * Encephalopathy- multifactorial-- +sepsis, embolic CVA, + hemorrhage, hx substance abuse, EEG neg seizure ; repeat CT brain 10/16, MRI 10/17. Neurosurgery continues to follow, notes patient has approximately 8mm of midline shift on the most recent MRI, but his mental status is improving. Continue supportive treatment, follow-up CT scans, neuro assessments. * Constipation - BM 10/12. On docusate daily and senna when necessary. Would recommend changing senna to scheduled, 10/19 added dulcolax suppository prn no BM - d/w nsg, pt has received several doses prn senna. No BM yet, nursing to administer Dulcolax today. Abdominal exam benign. Palliative care will continue to follow during hospital course as condition evolves, to assist patient/decision-maker with understanding of medical conditions, weighing benefits/burdens of treatment options, for clarification of goals of treatment. Additionally will assist with any symptoms of palliative concern. . Time Spent Total Floor Time (mins): 30 Attestation To help prompt me to consider important information that might be impacting today's encounter and assessment, information from prior notes written by myself or my colleagues may have been "brought forward" into today's note. My signature on this note, however, is an attestation that I personally performed the exam, history, and/or decision-making noted today, and, unless otherwise indicated, the interactions with patient, family, and staff as well as the review of records all occurred today. I also attest that the listed assessment and stated plan reflect my best clinical judgment today based on the combination of historical information, prior notes, and today's exam/ interactions. When time spent is documented, it refers only to time spent today by the signer, or if indicated, combined time spent today by collaborating physician/nurse practitioner. Sandy Liu Oct 19, 2016 10:50
[2016-10-19] MEDS: fentaNYL DRIP 250 ML IV SCH ×2 (10:54→22:53)
[2016-10-19] MEDS ORDERED: BISACODYL 10 MG SUPP RECTAL PRN (11:10)
[2016-10-19] MEDS ORDERED: BISACODYL 10 MG SUPP RECTAL ONE (11:15)
--- NOTE | 2016-10-19 11:25 | HHI.IDPN ---
Note Infectious Disease Note Notes reviewed. Discussed with RN. On the vent. 40% FIO2. Has eyes open. Moving all extremities. On Levophed. Becomes agitated and tachycardic when sedation is lifted. Has trach - placed 10/15. Peg placed 10/17. Low grade temps. WBC lower. Repeat TTE 10/16 noted - apparent perforation of aortic valve leaflet. severe aortic regurg. Sputum - Bronch washing 10/15 has Enterobacter. Sputum endotracheal - 10/16 - gram neg derrick. Blood cultures 09/30 Staph aureus in 5 of 6 bottles. Blood culture 10/02 positive. staph aureus. Blood culture 10/03 positive. staph aureus. Blood culture 10/04 positive. staph aureus. Blood culture 10/05 negative. Blood culture 10/06 negative. Blood culture 10/16 - 1 bottle with staph coag neg. Patient was brought to the emergency department with altered mental status. Was evaluated for rash at preceding ED evaluation 2 days prior. PAST MEDICAL HISTORY 1. Substance abuse. The patient was in rehabilitation 1 year ago. 2. ADHD. 3. Degenerative disk disease. ALLERGIES Reportedly the patient is allergic to SULFA, PENICILLIN, TORADOL, CODEINE. ANTIBIOTICS: Nafcillin Levaquin. OBJECTIVE: Vital Signs Date Time Temp Pulse Resp B/P Pulse Ox O2 Delivery O2 Flow Rate FiO2 10/19/16 08:41 96 40 10/19/16 06:00 102 10/19/16 04:00 119 10/19/16 04:00 98.9 112 16 124/49 97 10/19/16 04:00 40 10/19/16 03:36 99 40 10/19/16 02:00 105 10/19/16 01:38 99 40 10/19/16 00:00 40 10/19/16 00:00 98.9 111 14 118/57 98 10/19/16 00:00 105 10/18/16 22:01 100 40 10/18/16 22:00 105 10/18/16 20:00 115 10/18/16 20:00 99.1 112 16 127/44 99 10/18/16 20:00 40 10/18/16 19:52 99 40 10/18/16 18:00 116 10/18/16 16:08 95 40 10/18/16 16:00 131 10/18/16 16:00 40 10/18/16 16:00 99.8 131 15 117/49 96 10/18/16 14:00 141 10/18/16 13:30 40 10/18/16 12:00 99.0 115 16 130/54 98 10/18/16 12:00 40 10/18/16 12:00 115 10/18/16 10/18/16 10/19/16 15:00 23:00 07:00 Intake Total 1328 ml 559 ml 1048 ml Output Total 1650 ml 700 ml 2850 ml Balance -322 ml -141 ml -1802 ml Intake IV Total 1208 ml 468 ml 809 ml Tube Feeding 60 ml 91 ml 239 ml Tube Irrigant 60 ml Output Urine Total 1650 ml 700 ml 2850 ml # Bowel Movements 0 Laboratory Tests Test 10/18/16 10/19/16 03:45 05:00 White Blood Count 16.7 TH/MM3 12.2 TH/MM3 Red Blood Count 2.99 MIL/MM3 2.84 MIL/MM3 Hemoglobin 8.3 GM/DL 8.4 GM/DL Hematocrit 26.0 % 24.5 % Mean Corpuscular Volume 87.0 FL 86.3 FL Mean Corpuscular Hemoglobin 27.9 PG 29.6 PG Mean Corpuscular Hemoglobin 32.1 % 34.3 % Concent Red Cell Distribution Width 14.6 % 14.4 % Platelet Count 371 TH/MM3 347 TH/MM3 Mean Platelet Volume 7.6 FL 7.7 FL Neutrophils (%) (Auto) 86.4 % Lymphocytes (%) (Auto) 8.4 % Monocytes (%) (Auto) 4.2 % Eosinophils (%) (Auto) 0.5 % Basophils (%) (Auto) 0.5 % Neutrophils # (Auto) 14.4 TH/MM3 Lymphocytes # (Auto) 1.4 TH/MM3 Monocytes # (Auto) 0.7 TH/MM3 Eosinophils # (Auto) 0.1 TH/MM3 Basophils # (Auto) 0.1 TH/MM3 CBC Comment DIFF FINAL Differential Comment Laboratory Tests Test 10/17/16 10/17/16 10/18/16 10/18/16 12:15 20:50 03:45 10:00 Sodium Level 149 MEQ/L 151 MEQ/L 153 MEQ/L 152 MEQ/L Potassium Level 3.4 MEQ/L 3.6 MEQ/L Chloride Level 116 MEQ/L Carbon Dioxide Level 26.8 MEQ/L Anion Gap 10 MEQ/L Blood Urea Nitrogen 25 MG/DL Creatinine 0.68 MG/DL Estimat Glomerular Filtration 141 ML/MIN Rate Random Glucose 125 MG/DL Calcium Level 8.5 MG/DL Magnesium Level 2.4 MG/DL Total Bilirubin 0.5 MG/DL Aspartate Amino Transf 37 U/L (AST/SGOT) Alanine Aminotransferase 38 U/L (ALT/SGPT) Alkaline Phosphatase 123 U/L Total Protein 7.7 GM/DL Albumin 1.7 GM/DL Test 10/18/16 10/18/16 10/19/16 15:31 21:33 05:00 Sodium Level 152 MEQ/L 155 MEQ/L 156 MEQ/L Potassium Level 3.0 MEQ/L 3.7 MEQ/L Chloride Level 121 MEQ/L Carbon Dioxide Level 28.3 MEQ/L Anion Gap 7 MEQ/L Blood Urea Nitrogen 26 MG/DL Creatinine 0.87 MG/DL Estimat Glomerular Filtration 106 ML/MIN Rate Random Glucose 129 MG/DL Calcium Level 8.9 MG/DL Microbiology Date/Time Procedure Status Source Growth 10/16/16 19:45 Gram Stain - Final Complete Sputum Endotracheal 10/16/16 19:45 Sputum Culture - Final Complete Enterobacter Cloacae 10/16/16 20:05 Urine Culture - Final Complete Urine Catheterized Urine NO GROWTH IN 48 HOURS. 10/16/16 20:51 Aerobic Blood Culture - Preliminary Resulted Blood Peripheral NO GROWTH IN 3 DAYS 10/16/16 20:51 Anaerobic Blood Culture - Preliminary Resulted Blood Peripheral NO GROWTH IN 3 DAYS 10/16/16 21:00 Aerobic Blood Culture - Preliminary Resulted Blood Peripheral NO GROWTH IN 3 DAYS 10/16/16 21:00 Anaerobic Blood Culture - Preliminary Resulted Staph Sp Coagulase Negative IMAGING: Chest X-Ray 10/18/16599 Signed Impressions: Service Date/Time: October 04:52 - CONCLUSION: Mild infiltrate in the right lower lobe. Central line in good position. Loyd Black MD Brain MRI 10/18/16599 Signed Impressions: Service Date/Time: October 11:38 - CONCLUSION: 1. Grossly abnormal examination demonstrating large areas of edema with abnormal contrast enhancement in both hemispheres. There are focal rim enhancing fluid collection seen in the left posterior parietal cortex, centrally and the high left parietal cortex and in the right posterior temporal cortex. Findings would be concerning for cerebritis and abscess. 2. 7.5 mm of [id number] falcine shift. 3. Focal area of abnormal enhancement and edema within the right side of the cerebellum again concerning for cerebritis/abscess in this patient with known history of endocarditis. 4. This patient's examination has significantly worsened when compared to previous dated 09/30/16. Cody Coello MD Head CT 10/16/16 0000 Signed Impressions: Service Date/Time: Sunday, October 16, 2016 04:37 - CONCLUSION: Large area of edema in the right temporal lobe with now some central areas of hemorrhage clearly more impressive than on the , in particular the amount of hemorrhage present. I don't see drainable collection, it is more of an elongated curvilinear area. Small area stroke and edema in the medial left parietal lobe. Improvement in the lower left lateral parietal lesion with much less edema today Loyd Black MD Chest X-Ray 10/15/16 0000 Signed Impressions: Service Date/Time: Saturday, October 15, 2016 13:21 - CONCLUSION: Trach is in good position without pneumothorax. Jair Coello MD FACR Head CT 10/08/16 0600 Signed Impressions: Service Date/Time: Saturday, October 08, 2016 05:31 - CONCLUSION: Increasing mass effect mainly associated with the right temporal process Michael Choe MD Head CT 10/03/16 0945 Signed Impressions: Service Date/Time: Monday, October 03, 2016 09:51 - CONCLUSION: 1. Multiple foci of low attenuation seen within the cerebral and cerebellar hemispheres consistent with evolving infarcts. Mykel Cantu MD Chest X-Ray 10/01/16 0000 Signed Impressions: Service Date/Time: Saturday, October 01, 2016 05:10 - CONCLUSION: Slight worsening bilateral perihilar infiltrates. 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 Please see above. No mass or evidence of abscess. 4 mm of leftward midline shift. Small subarachnoid blood. Michael Freitas MD Renal Ultrasound 09/30/16 0000 Signed Impressions: Service Date/Time: Friday, September 30, 2016 18:45 - CONCLUSION: Ultrasound appearance of the kidneys within normal limits. Jerez catheter in the urinary bladder. Nonspecific splenomegaly incidentally noted. Michael Freitas MD Head Magnetic Resonance Angiography 09/30/16 0000 Signed Impressions: Service Date/Time: Friday, September 30, 2016 17:42 - CONCLUSION: No occlusion, aneurysm or other acute intracranial vascular abnormality demonstrated. Michael Freitas MD PHYSICAL EXAMINATION GENERAL: Sedated. On vent. HEENT: Pupils dilated. No icterus. Oropharynx: moist mucosa. NECK: No adenopathy. No swelling. Trach site without e/o infection. LUNGS: Bibasilar rhonchi. Good air movement. HEART: 2-3/6 systolic murmur at the left sternal border. No rubs or gallops. ABDOMEN: Bowel sounds are present, soft, nontender. EXTREMITIES: No clubbing or cyanosis or edema. Embolic purpuric lesions at the plantar aspect of the 4th and 5th toe on the left and the great toe on the right. SKIN: Resolved rash. Dry peeled skin at tips of digits. NEURO: Unable to assess. Moving all extremities. PSYCH: unable to assess. IMPRESSION 1. Septic shock due to Staph aureus. Persistent bacteremia. MSSA. Blood culture now negative reflecting clearance. 2. Acute endocarditis. [place] aortic valve. Staph aureus. 3. Acute respiratory failure. 4. Bilateral lung infiltrates, probably secondary to septic emboli. PNA Staph aureus. Now has Enterobacter PNA. 5. 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 6. History of IV drug abuse. Unknown current use status. 7. Antibiotic allergies. 8. Recent drug rash. Medicines in weeks before admission: Clindamycin, Doxycycline, acyclovir, Adderral, Tylenol, prednisone, omeprazole, Ibuprofen. 9. Repeat blood culture with staph coag negative is most likely contaminant. RECOMMENDATIONS: 1. Continue Nafcillin 2 grams Q 4 hours. 2. Continue Levaquin for Pneumonia due to Enterobacter. 3. Valve replacement when feasible. 4. Monitor temps. 5. Monitor WBC. Decreasing. 6. Monitor clinical status. Discussed with RN. DR. Rodriguez. Updated Mom and daughter at bedside. Nemesio Jackson MD Oct 19, 2016 11:25
--- NOTE | 2016-10-19 11:32 | HHI.CCPN ---
Subjective Remarks/Hospital Course Hospital Course: This is a 26yM who presents to the ED for altered mental status. On arrival, the patient was obtunded and emergently intubated. His roommate is with him and cannot provide much medical history. The remainder of the history is per EMS and ER documentation and my discussion with the ER physician. Per EMS and ED reports, patient was seen approximately 10 days prior to admission by an unknown physician in the clinic and given antibiotic for fever. After taking the antibiotic, the patient had a new red rash on his hands and healing on his feet. He he was seen in the emergency department 2 days prior to admission for low-grade fever and congestion, generalized weakness, lightheadedness. At that time she was given prescription for prednisone 40 mg daily for 5 days. The patient's landlord apparently found the patient today with altered mental status and called EMS. When EMS arrived, his GCS was 10. There is reports that the patient has a history of substance abuse and was recently in rehabilitation. I did talk to the roommate who confirms that the patient had recently gotten out of rehabilitation and was living with him. The remainder does say that he does not think the patient has been taking any illicit substances recently. In the emergency department, the patient was hypotensive, tachycardic. His head CT is significant for significant areas of infarction in the right frontal , temporal, and cerebellar regions as well as a small area of subarachnoid hemorrhage in the superior right parietal region. Patient has early 3 mm of midline shift as well as effacement on the right. Patient's laboratory data is significant for white blood cell count of 19,000, hemoglobin of 9.9, lactate of 3.7, creatinine 1.69, CK 372, troponin of 11.9. His urine drug screen is positive for opiates and amphetamines. I performed a bedside critical care ultrasound which demonstrated hyperdynamic left ventricular function and what appears to be aortic valve vegetations and I measured to be proximally 0.9 x 8.8 cm. This is associated with what appears to be severe aortic regurgitation. There is no pericardial effusion. Right ventricular function is preserved. A formal echo has been ordered to confirm these findings. Critical care medicine has been consulted to evaluate and manage his shock, altered mental status, multiple areas of infarction, and subarachnoid hemorrhage. Subjective: 10/01: seen and examined around 06:30am. patient on norepinephrine at 6 mcg/min , persistently in shock. patient localizes to pain x 4 extremities. repeat interval head CT with 4mm midline shift. echo with significant aortic valve vegetations and moderate aortic insufficiency. 10/02: now following commands intermittently on the RUE, still localizing in LUE , BLE. off vasopressors this morning. cultures growing staph, sensitivities to follow. 10/03: tachycardic overnight. off vasopressors this morning. not following commands this morning. still persistently febrile and wbc uptrended to 20k. 10/04: still encephalopathic. EEG negative for seizure activity. received 1 trial dose of oxacillin yesterday without evidence of allergic reaction. will let ID guide this therapy, but safe from a critical care standpoint to pursue oxacillin therapy. cultures persistently positive and wbc uptrending. still febrile. 10/05: persistent encephalopathy. but now briskly purposeful x 4. now on oxacillin. discussed with ID, and will plan to start gent induction. wbc downtrending today. still febrile. will continue surveilance cultures q48h until 2 sets negative. 10/06: neuro exam unchanged. still purposeful. blood cultures negative x 24h. will re-draw today. still persists on 1mcg/min levophed, though this has also slightly improved from yesterday. 10/07: neuro exam stable. very agitated, not following commands. blood cultures negative x 48h. off levophed. 10/08: neuro exam stable. CT with increased midline shift and persistent edema, particularly right side. back on levophed. febrile. wbc stable. 10/09: sodium not at goal, likely due to normal renal function. follows commands in the RUE, which is new. spontaneously moves BLE, LUE. wbc downtrending. hgb 7 this AM, but no other signs of end-organ damage from low o2 delivery. 10/10 failed to SBT today due to rapid shallow breathing also tachycardia. Patient found to have a significant anemia below 7 will transfuse and reattempt SBT later today 10/11: Flash pulmonary edema today requiring sedation protocol and vent manipulations. Hypoxemia to 70s. 10/12: Some improvement in gas exchange after heavy sedation and relaxant. 10/13: Tmax 100.3, requiring high dose sedation. 10/14: Leukocytosis resolving. Still way ahead on free water - increase diuretics. Prealbumin , adjust TFs accordingly. 10/15: deeply sedated s/p severe agitation from prior causing pulmonary edema and hypoxia. talked with family at length, not clinically improving on pathway, will require tracheostomy and PEG tube for further improvements. also still significantly + on volume. still on vasopressors, but does not clinically appear to be in significant shock. 10/16: CT scan today with new hemorrhage into right temporal stroke area with 9mm midline shift. neurosurgery aware. no significant improvements in neurologic exam. repeat echo pending. 10/17: Neuro exam remains unchanged. Per Dr. Michelle CT from 10/16/16 showed small amount of new hemorrhage circumferentially along the area of the previous right temporal infarct. There is increased right temporal edema and mass effect but relatively focal primarily along the ventricle, and there is not significant compression along the brainstem or cisterns. Continued medical management, increased Na 145-150. Neuro exam remains unchanged Tmax 100.3, white count increased to 14.3. Enterobacter in BAL 10/15, start Levofloxacin 10/18 MRI shows multiple brain abscesses bilaterally. Large R sided stroke with midline shift 7.[address] Michelle will review images. ID feels oxacillin sufficient. Clinically neuro slightly improved. Spontaneous eye opening moves right upper and lower extremities spontaneously. (Mother states he squeezes hand to command) 10/19: Neuro exam slowly improving, squeezes with both hands. WBC count improved. Intermittently requiring Levophed. Remains tachycardic. Start scheduled metoprolol, start scheduled methadone to reduce fentanyl requirement Objective Vital Signs Date Time Temp Pulse Resp B/P Pulse Ox O2 Delivery O2 Flow Rate FiO2 10/19/16 08:41 96 40 10/19/16 06:00 102 10/19/16 04:00 98.9 16 124/49 Intake and Output 10/18/16 10/18/16 10/19/16 08:00 16:00 00:00 Intake Total 891 ml 1328 ml 559 ml Output Total 1900 ml 1650 ml 700 ml Balance -1009 ml -322 ml -141 ml Result Diagram: 10/19/16 0500 10/19/16 0500 Other Results Microbiology Date/Time Procedure Status Source Growth 10/16/16 19:45 Gram Stain - Final Complete Sputum Endotracheal 10/16/16 19:45 Sputum Culture - Final Complete Enterobacter Cloacae 10/16/16 20:05 Urine Culture - Final Complete Urine Catheterized Urine NO GROWTH IN 48 HOURS. Imaging Last Impressions Head CT 09/30/16 2905 Signed Impressions: Service Date/Time: Friday, September 30, 2016 16:31 - CONCLUSION: Noncontrast CT findings of concern for multiple intra-axial masses. There is small acute subarachnoid blood present and about 3 mm of leftward midline shift. MRI of the brain with and without contrast recommended. Michael Freitas MD Chest X-Ray 09/30/16 4470 Signed Impressions: Service Date/Time: Friday, September 30, 2016 15:23 - CONCLUSION: No acute cardiopulmonary disease demonstrated. Appropriate endotracheal tube tip position. Nasogastric tube courses into the stomach, tip not included on the study. Michael Freitas MD Objective Remarks GENERAL: Young male, lying in bed, critically ill HEENT: Pupils 3 mm, equal, sluggishly reactive. Mucous membranes moist. NECK: No JVD. Trachea midline. trach with minimal oozing CHEST: Equal chest rise. CPAP 40%. vigorous cough with thin secretions. CARDIOVASCULAR: Tachycardic rate 120-130/min, regular rhythm. + JVD. Early Diastolic murmur Grade 3 best heard LSB ABDOMEN: Soft, nontender, nondistended. No guarding. MUSCULOSKELETAL: Rash on feet has improved. No peripheral edema. Distal pulses 2+. NEUROLOGICAL: WING. Brisk withdrawal x4 and spontaneous eye opening. Squeezes bilateral hands to command. 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 Has hemorrhagic conversion and midline shift. MRI 10/18 multiple brain abscesses. Continue with supportive care. Remains critically ill at this time, but improving. continue ongoing diuresis. I have updated the family daily Plan by systems: Neurologic: Multiple acute septic CVAs, brain abscesses Cerebral edema, Midline shift, 9 mm Small subarachnoid hemorrhage Right temporal hemorrhagic conversion Metabolic encephalopathy Agitated Delirium --MRI shows multiple brain abscesses bilaterally. Large R sided stroke with midline shift 7.[address] Michelle recommends continue medical management, Ct Saturday --Neuro slightly improved. Spontaneous eye opening, intermittently following commands --Continue hyperosmolar therapy q1h neuro checks --Use PRN Ativan and fentanyl for agitation. Continue Fentanyl gtt. Add Methadone 20 mg BID in attempt to reduce IV Fentanyl - Haldol 5mg iv q6 --EEG 10/01- negative for seizures -- s/p failed trial of Seroquel. melatonin to assist with sleep/wake cycles - Precedex trial was a catastrophic failure - he was very wild and put himself in pulmonary edema. Respiratory: Acute hypoxic and hypercarbic respiratory failure Vent bundle Head of bed 30 Avoid hypercarbia and hypoxia Wean FiO2 for goal SPO2 greater than 92% -- s/p trach 10/[address] Dominguez/Osiel start CPAP daily, --TP 6-8 hours today, increase as tolerated Cardiovascular: Aortic valve endocarditis Severe aortic insufficiency, with probable AV perforation Persistent tachycardia Hypotension Arterial line, central line for invasive central pressure monitoring. DC arterial line today ABX as described below 2d echo 10/01: aortic valve vegetations, moderate AI. Echo 10/17 Sev AI, probable AV perforation --CTS consulted, will re evaluate for Mini AVR if neuro status improves remains intermittently on levophed . continue to wean as tolerated for map > 65. --Start scheduled metoprolol 12.5 mg every 8 hours for HR control Renal: Acute kidney injury- resolved. Jerez for accurate I's and O's -- Strict I/Os FEN/GI: Hypermagnesemia Metabolic Alkalosis Acute protein calorie malnutritionmild Elevated LFTs Intravascular Volume Overload jevity 1.5, nutrition consult. Dulcolax PRN Daily BMP --Lasix 40mg iv q12h --s/p Diamox 500mg iv q8h x 3 doses. Heme/ID: Infective endocarditis Septic shock- resolving. Anemia, likely secondary to hemolysis from valvulopathy 10/01 blood cultures: MSSA --10/01 sputum culture: MSSA --10/02 blood cultures: MSSA --10/03 blood cultures: MSSA --10/04 bl cx: MSSA --10/05 bl cx: NGTD --10/06 bl cx: NGTD --10/15 Enterobacter in BAL --10/16 blood culture coag negative staph probable contamination vancomycin, flagyl d/cd 10/02. --oxacillin started 10/02-DCd 10/18 and nafcillin started by ID 10/18/16 -- Started levofloxacin to cover Enterobacter 10/17 --gentamicin induction therapy per ID. started 10/05, d/c'd Infectious disease following: Dontfraid Endocrine: Hyperglycemia of critical illness -- SSI, every 6 hours, medium scale TSH 0.16, free T4 1.07, T3 < 0.5: likely sick euthyroid. Prophylaxis: GI Prophylaxis Protonix IV DVT Prophylaxis -- SCDs Holding pharmacologic DVT prophylaxis in the setting of cerebral hemorrhage, multiple brain abscesses Lines: R adial arterial line-DC today --09/30 left SC TLC d/c. New right SCV CVL placed 10/12. --Solitario This patient remains critically ill with one or more organ systems which are or may become a threat to life. I have spent in excess of 35 minutes discontinuously in the care and management of this patient. This time is exclusive of procedures, and includes, but is not limited to, evaluation of the patient, review of the medical record, discussions with family, consultants, nursing staff, or respiratory therapy, and documentation in the medical record. Mary Rodriguez MD Oct 19, 2016 11:32
[2016-10-19] MEDS: METHADONE HCL 10 MG/10 ML ORAL SOLUTION PO SCH ×2 (11:59→20:22)
[2016-10-19] MEDS ORDERED: SODIUM CHLORID 0.9% 500 ML INJ 500 ML IV ONE (14:00)
[2016-10-19] MEDS ORDERED: ALBUMIN HUMAN 25% 25 GM/100 ML BAGP IV ONE (14:00)
[2016-10-19] MEDS: METOPROLOL TARTRATE 25 MG TAB PO SCH ×2 (14:02→21:25)
[2016-10-19] MEDS: DILTIAZEM 125 MG/NS 100 ML IV SCH ×2 (14:36)
[2016-10-19] MEDS: MELATONIN 5 MG TAB PO SCH (20:22)
[2016-10-19] MEDS ORDERED: FUROSEMIDE 40 MG/4 ML VIAL IV PUSH SCH (23:00)
[2016-10-20] VITALS (18 sets, daily range): BP systolic 110–128; BP diastolic 52–59; PULSE 92–129; RESP 12–16; TEMP 97.7–100.3; O2SAT 95–100
[2016-10-20] MEDS: NAFCILLIN INJ 2,000 MG in SODIUM CHLORIDE 0.9% INJ 100 ML IV SCH ×6 (01:23→20:16)
[2016-10-20] MEDS: HALOPERIDOL LACTATE 5 MG/ML AMP IV SCH ×4 (01:23→20:16)
[2016-10-20] MEDS: ACETAMINOPHEN 325 MG TAB PO PRN ×2 (03:29→12:41)
[2016-10-20] MEDS: DILTIAZEM 125 MG/NS 100 ML IV SCH ×2 (03:41)
[2016-10-20] MEDS: CHLORHEXIDINE GLUCONATE 2 % 1 PACK (2 CLOTHS) TOP SCH (04:00)
[2016-10-20 04:29] LABS: AUTOMATED NEUTROPHIL # 9.4 TH/MM3 (1.8-7.7); BASOPHIL % 0.4 % (0.0-2.0); EOSINOPHIL # 0.1 TH/MM3 (0-0.4); EOSINOPHIL % 0.5 % (0.0-4.0); HEMATOCRIT 24.3 % (39.0-51.0); HEMO FLAGS DIFF FINAL; LYMPHOCYTE # 1.6 TH/MM3 (1.0-4.8); MEAN CELL VOLUME 86.7 FL (80.0-100.0); MEAN CORPUSCULAR HEMOGLOBIN 28.6 PG (27.0-34.0); NEUT % 80.1 % (16.0-70.0); PLATELET COUNT 301 TH/MM3 (150-450); RED CELL DISTRIBUTION WIDTH 14.1 % (11.6-17.2); WHITE BLOOD COUNT 11.7 TH/MM3 (4.0-11.0)
[2016-10-20 04:41] LABS: ALKALINE PHOSPHATASE 117 U/L (45-117); ALT (GPT) 33 U/L (12-78); ANION GAP 6 MEQ/L (5-15); AST (GOT) 25 U/L (15-37); BICARBONATE 30.7 MEQ/L (21.0-32.0); BLOOD UREA NITROGEN 31 MG/DL (7-18); CHLORIDE 122 MEQ/L (98-107); GLOMERULAR FILTRATION RATE 115 ML/MIN (>89); MAGNESIUM 2.4 MG/DL (1.5-2.5); TOTAL BILIRUBIN ADULT 0.7 MG/DL (0.2-1.0)
[2016-10-20 04:47] LABS: POTASSIUM 2.8 MEQ/L (3.5-5.1); SODIUM (NA) 159 MEQ/L (136-145)
--- NOTE | 2016-10-20 04:51 | RADRPT ---
EXAM DATE/TIME: 10/20/2016 02:51 [facility] COMPARISON: CHEST SINGLE AP, October 18, 2016, 4:52. INDICATIONS : Shortness of breath, followup right lung infiltrate.. MEDICAL HISTORY : None. SURGICAL HISTORY : Tracheostomy ENCOUNTER: Subsequent ACUITY: 1 week PAIN SCORE: Non-responsive. LOCATION: Bilateral chest FINDINGS: A single AP semierect view of the chest was obtained and again demonstrates the tracheostomy tube and right subclavian central venous catheter. Hazy opacity remains in the right lung base. Left lung is clear. The heart size is within normal limits. There is no visualized effusion. The bony thorax remai ns intact. CONCLUSION: 1. Hazy opacity remains in the right lung base. 2. Tracheostomy tube remains in place. Russell Mckeon MD on October 20, 2016 at 4:49 Board Certified Radiologist. This report was verified electronically.
[2016-10-20] MEDS: POTASSIUM CHLOR 40 MEQ PREMIX 100 ML IV PRN (05:01)
[2016-10-20] MEDS: METOPROLOL TARTRATE 25 MG TAB PO SCH ×3 (05:51→20:59)
[2016-10-20] MEDS: DOCUSATE SODIUM 100 MG/10 ML UDC G-TUBE SCH ×2 (07:56→20:00)
[2016-10-20] MEDS: CHLORHEXIDINE 0.12% (ORAL KIT) 15 ML CUP MT SCH ×2 (08:00→20:00)
--- NOTE | 2016-10-20 08:31 | HHI.NSPN ---
(Edmundo Branch) History Chief Complaint: Trached & sedated (Edmundo Branch) Interval History 26 male with history of multiple septic cerebral emboli, significant cerebral edema with multiple areas of infarction. 10/20/16: Patient on fentanyl drip. Patient opens eyes. Pupils 3 mm bilaterally. Reactive bilaterally. He appears to be trying to follow commands. He has a trach in place and is on a rate. (Edmundo Branch) System Review Comments Not able to obtain given clinical exam. (Edmundo Branch) Exam Results Vital Signs Date Time Temp Pulse Resp B/P Pulse Ox O2 Delivery O2 Flow Rate FiO2 10/20/16 08:02 98 40 10/20/16 06:00 106 10/20/16 04:00 97.7 16 122/56 Intake and Output 10/19/16 10/19/16 10/20/16 08:00 16:00 00:00 Intake Total 1048 ml 1132 ml 1441 ml Output Total 2850 ml 2875 ml 800 ml Balance -1802 ml -1743 ml 641 ml (Edmundo Branch) Physical Examination GENERAL: Patient appears no acute distress resting in bed. He is on fentanyl drip. HEENT: No facial edema or ecchymosis. Sclerae clear and nonicteric CHEST: Respirations clear and regular. Trach in place. FiO2 40%. PEEP 5. Respiratory rate 14 CARDIOVASCULAR: Regular rhythm. Cardizem drip held this morning. ABDOMEN: Abdomen soft, nontender, positive bowel sounds. MUSCULOSKELETAL: He appears to try to follow commands with his extremities. INTEGUMENTARY: The tip of the right great toe with evolving necrotic area. NEUROLOGICAL: Patient on fentanyl drip. He opens his eyes. Pupils are 3 mm bilaterally reactive bilaterally. He appears to try to follow commands. (Edmundo Branch) Lab, Micro, Other Results Last Impressions Chest X-Ray 10/20/16 0600 Signed Impressions: Service Date/Time: Thursday, October 20, 2016 02:51 - CONCLUSION: 1. Hazy opacity remains in the right lung base. 2. Tracheostomy tube remains in place. Russell Mckeon MD Brain MRI 10/18/16 0600 Signed Impressions: Service Date/Time: October 11:38 - CONCLUSION: 1. Grossly abnormal examination demonstrating large areas of edema with abnormal contrast enhancement in both hemispheres. There are focal rim enhancing fluid collection seen in the left posterior parietal cortex, centrally and the high left parietal cortex and in the right posterior temporal cortex. Findings would be concerning for cerebritis and abscess. 2. 7.5 mm of [id number] falcine shift. 3. Focal area of abnormal enhancement and edema within the right side of the cerebellum again concerning for cerebritis/abscess in this patient with known history of endocarditis. 4. This patient's examination has significantly worsened when compared to previous dated 09/30/16. Cody Coello MD Head CT 10/16/16 0000 Signed Impressions: Service Date/Time: Sunday, October 16, 2016 04:37 - CONCLUSION: Large area of edema in the right temporal lobe with now some central areas of hemorrhage clearly more impressive than on the , in particular the amount of hemorrhage present. I don't see drainable collection, it is more of an elongated curvilinear area. Small area stroke and edema in the medial left parietal lobe. Improvement in the lower left lateral parietal lesion with much less edema today Loyd Black MD Renal Ultrasound 09/30/16 0000 Signed Impressions: Service Date/Time: Friday, September 30, 2016 18:45 - CONCLUSION: Ultrasound appearance of the kidneys within normal limits. Jerez catheter in the urinary bladder. Nonspecific splenomegaly incidentally noted. Michael Freitas MD Head Magnetic Resonance Angiography 09/30/16 0000 Signed Impressions: Service Date/Time: Friday, September 30, 2016 17:42 - CONCLUSION: No occlusion, aneurysm or other acute intracranial vascular abnormality demonstrated. Michael Freitas MD Laboratory Tests Test 10/19/16 10/19/16 10/19/16 10/20/16 10:15 14:14 22:38 03:30 Sodium Level 157 MEQ/L 158 MEQ/L 157 MEQ/L 159 MEQ/L Potassium Level 2.8 MEQ/L Chloride Level 122 MEQ/L Carbon Dioxide Level 30.7 MEQ/L Anion Gap 6 MEQ/L Blood Urea Nitrogen 31 MG/DL Creatinine 0.81 MG/DL Estimat Glomerular Filtration 115 ML/MIN Rate Random Glucose 146 MG/DL Calcium Level 8.5 MG/DL Magnesium Level 2.4 MG/DL Total Bilirubin 0.7 MG/DL Aspartate Amino Transf 25 U/L (AST/SGOT) Alanine Aminotransferase 33 U/L (ALT/SGPT) Alkaline Phosphatase 117 U/L Total Protein 7.3 GM/DL Albumin 1.9 GM/DL Test 10/20/16 04:00 White Blood Count 11.7 TH/MM3 Red Blood Count 2.80 MIL/MM3 Hemoglobin 8.0 GM/DL Hematocrit 24.3 % Mean Corpuscular Volume 86.7 FL Mean Corpuscular Hemoglobin 28.6 PG Mean Corpuscular Hemoglobin 33.0 % Concent Red Cell Distribution Width 14.1 % Platelet Count 301 TH/MM3 Mean Platelet Volume 7.4 FL Neutrophils (%) (Auto) 80.1 % Lymphocytes (%) (Auto) 14.0 % Monocytes (%) (Auto) 5.0 % Eosinophils (%) (Auto) 0.5 % Basophils (%) (Auto) 0.4 % Neutrophils # (Auto) 9.4 TH/MM3 Lymphocytes # (Auto) 1.6 TH/MM3 Monocytes # (Auto) 0.6 TH/MM3 Eosinophils # (Auto) 0.1 TH/MM3 Basophils # (Auto) 0.0 TH/MM3 CBC Comment DIFF FINAL Differential Comment 10/19/16 10/19/16 10/20/16 15:00 23:00 07:00 Intake Total 1132 ml 1441 ml 1157 ml Output Total 2875 ml 800 ml 550 ml Balance -1743 ml 641 ml 607 ml Intake IV Total 774 ml 978 ml 564 ml Tube Feeding 298 ml 263 ml 293 ml Tube Irrigant 60 ml 200 ml 300 ml Output Urine Total 2875 ml 800 ml 550 ml # Bowel Movements 0 2 0 (Edmundo Branch) Medical Decision Making Impression and Plan Impression: 1. Multiple septic emboli secondary areas of ischemia or infarction. Most recent MRI brain with evidence of small areas of residual cerebritis and abscess formation primarily over the left temporoparietal region. The area of edema in the right temporal lobe appears to be primarily an area of infarction with possible cerebritis but no focal abscess formation. Patient has approximately 8mm of midline shift on the most recent MRI, but his mental status is improving. Plan: Continuing close intensive care neurologic checks. Continue to keep sodium 145-155 range Follow-up CT scan head next week, or earlier if any change in neurologic function. (Edmundo Branch) Attending Statement The exam, history, and the medical decision-making described in the above note were completed with the assistance of the mid-level provider. I reviewed and agree with the findings presented. I attest that I had a [id number] encounter with the patient on the same day, and personally performed and documented my assessment and findings in the medical record. (Morgan Velazquez MD) Edmundo Branch Oct 20, 2016 08:31 Morgan Velazquez MD Oct 20, 2016 11:07
[2016-10-20] MEDS: LEVOFLOXACIN 750 MG PREMIX INJ 150 ML IV SCH (09:01)
[2016-10-20] MEDS: METHADONE HCL 10 MG/10 ML ORAL SOLUTION PO SCH ×2 (09:01→20:17)
[2016-10-20] MEDS: PANTOPRAZOLE SODIUM 40 MG VIAL IV SCH (09:01)
[2016-10-20] MEDS: ARTIFICIAL TEARS OPTH SOLN 15 ML BTL EACH EYE SCH ×3 (09:02→17:15)
[2016-10-20] MEDS: SODIUM CHLORIDE 0.9% FLUSH 10 ML FLUSH IV FLUSH SCH ×2 (09:03→20:16)
[2016-10-20] MEDS: BENEPROTEIN POWDER 1 PACK G-TUBE SCH ×3 (09:05→17:15)
--- NOTE | 2016-10-20 11:14 | HHI.CCPN ---
Subjective Remarks/Hospital Course Hospital Course: This is a 26yM who presents to the ED for altered mental status. On arrival, the patient was obtunded and emergently intubated. His roommate is with him and cannot provide much medical history. The remainder of the history is per EMS and ER documentation and my discussion with the ER physician. Per EMS and ED reports, patient was seen approximately 10 days prior to admission by an unknown physician in the clinic and given antibiotic for fever. After taking the antibiotic, the patient had a new red rash on his hands and healing on his feet. He he was seen in the emergency department 2 days prior to admission for low-grade fever and congestion, generalized weakness, lightheadedness. At that time she was given prescription for prednisone 40 mg daily for 5 days. The patient's landlord apparently found the patient today with altered mental status and called EMS. When EMS arrived, his GCS was 10. There is reports that the patient has a history of substance abuse and was recently in rehabilitation. I did talk to the roommate who confirms that the patient had recently gotten out of rehabilitation and was living with him. The remainder does say that he does not think the patient has been taking any illicit substances recently. In the emergency department, the patient was hypotensive, tachycardic. His head CT is significant for significant areas of infarction in the right frontal , temporal, and cerebellar regions as well as a small area of subarachnoid hemorrhage in the superior right parietal region. Patient has early 3 mm of midline shift as well as effacement on the right. Patient's laboratory data is significant for white blood cell count of 19,000, hemoglobin of 9.9, lactate of 3.7, creatinine 1.69, CK 372, troponin of 11.9. His urine drug screen is positive for opiates and amphetamines. I performed a bedside critical care ultrasound which demonstrated hyperdynamic left ventricular function and what appears to be aortic valve vegetations and I measured to be proximally 0.9 x 8.8 cm. This is associated with what appears to be severe aortic regurgitation. There is no pericardial effusion. Right ventricular function is preserved. A formal echo has been ordered to confirm these findings. Critical care medicine has been consulted to evaluate and manage his shock, altered mental status, multiple areas of infarction, and subarachnoid hemorrhage. Subjective: 10/01: seen and examined around 06:30am. patient on norepinephrine at 6 mcg/min , persistently in shock. patient localizes to pain x [address] extremities. repeat interval head CT with 4mm midline shift. echo with significant aortic valve vegetations and moderate aortic insufficiency. 10/02: now following commands intermittently on the RUE, still localizing in LUE , BLE. off vasopressors this morning. cultures growing staph, sensitivities to follow. 10/03: tachycardic overnight. off vasopressors this morning. not following commands this morning. still persistently febrile and wbc uptrended to 20k. 10/04: still encephalopathic. EEG negative for seizure activity. received 1 trial dose of oxacillin yesterday without evidence of allergic reaction. will let ID guide this therapy, but safe from a critical care standpoint to pursue oxacillin therapy. cultures persistently positive and wbc uptrending. still febrile. 10/05: persistent encephalopathy. but now briskly purposeful x 4. now on oxacillin. discussed with ID, and will plan to start gent induction. wbc downtrending today. still febrile. will continue surveilance cultures q48h until 2 sets negative. 10/06: neuro exam unchanged. still purposeful. blood cultures negative x 24h. will re-draw today. still persists on 1mcg/min levophed, though this has also slightly improved from yesterday. 10/07: neuro exam stable. very agitated, not following commands. blood cultures negative x 48h. off levophed. 10/08: neuro exam stable. CT with increased midline shift and persistent edema, particularly right side. back on levophed. febrile. wbc stable. 10/09: sodium not at goal, likely due to normal renal function. follows commands in the RUE, which is new. spontaneously moves BLE, LUE. wbc downtrending. hgb 7 this AM, but no other signs of end-organ damage from low o2 delivery. 10/10 failed to SBT today due to rapid shallow breathing also tachycardia. Patient found to have a significant anemia below 7 will transfuse and reattempt SBT later today 10/11: Flash pulmonary edema today requiring sedation protocol and vent manipulations. Hypoxemia to 70s. 10/12: Some improvement in gas exchange after heavy sedation and relaxant. 10/13: Tmax 100.3, requiring high dose sedation. 10/14: Leukocytosis resolving. Still way ahead on free water - increase diuretics. Prealbumin , adjust TFs accordingly. 10/15: deeply sedated s/p severe agitation from prior causing pulmonary edema and hypoxia. talked with family at length, not clinically improving on pathway, will require tracheostomy and PEG tube for further improvements. also still significantly + on volume. still on vasopressors, but does not clinically appear to be in significant shock. 10/16: CT scan today with new hemorrhage into right temporal stroke area with 9mm midline shift. neurosurgery aware. no significant improvements in neurologic exam. repeat echo pending. 10/17: Neuro exam remains unchanged. Per Dr. Michelle CT from 10/16/16 showed small amount of new hemorrhage circumferentially along the area of the previous right temporal infarct. There is increased right temporal edema and mass effect but relatively focal primarily along the ventricle, and there is not significant compression along the brainstem or cisterns. Continued medical management, increased Na 145-150. Neuro exam remains unchanged Tmax 100.3, white count increased to 14.3. Enterobacter in BAL 10/15, start Levofloxacin 10/18 MRI shows multiple brain abscesses bilaterally. Large R sided stroke with midline shift 7.[address] Michelle will review images. ID feels oxacillin sufficient. Clinically neuro slightly improved. Spontaneous eye opening moves right upper and lower extremities spontaneously. (Mother states he squeezes hand to command) 10/19: Neuro exam slowly improving, squeezes with both hands. WBC count improved. Intermittently requiring Levophed. Remains tachycardic. Start scheduled metoprolol, start scheduled methadone to reduce fentanyl requirement 10/20 stable overnight, continue methadone and attempt to reduce fentanyl Objective Vital Signs Date Time Temp Pulse Resp B/P Pulse Ox O2 Delivery O2 Flow Rate FiO2 10/20/16 10:00 97 10/20/16 08:02 98 40 10/20/16 08:00 99.5 12 110/52 Intake and Output 10/19/16 10/19/16 10/20/16 08:00 16:00 00:00 Intake Total 1048 ml 1132 ml 1441 ml Output Total 2850 ml 2875 ml 800 ml Balance -1802 ml -1743 ml 641 ml Result Diagram: 10/20/16 0400 10/20/16 0903 Imaging Last Impressions Head CT 09/30/16 1453 Signed Impressions: Service Date/Time: Friday, September 30, 2016 16:31 - CONCLUSION: Noncontrast CT findings of concern for multiple intra-axial masses. There is small acute subarachnoid blood present and about 3 mm of leftward midline shift. MRI of the brain with and without contrast recommended. Michael Freitas MD Chest X-Ray 09/30/16 1453 Signed Impressions: Service Date/Time: Friday, September 30, 2016 15:23 - CONCLUSION: No acute cardiopulmonary disease demonstrated. Appropriate endotracheal tube tip position. Nasogastric tube courses into the stomach, tip not included on the study. Michael Freitas MD Objective Remarks GENERAL: Young male, lying in bed, critically ill HEENT: Pupils 3 mm, equal, sluggishly reactive. Mucous membranes moist. NECK: No JVD. Trachea midline. trach with minimal oozing CHEST: Equal chest rise. CPAP 40%. vigorous cough with thin secretions. CARDIOVASCULAR: Tachycardic rate 120-130/min, regular rhythm. + JVD. Early Diastolic murmur Grade 3 best heard LSB ABDOMEN: Soft, nontender, nondistended. No guarding. MUSCULOSKELETAL: Rash on feet has improved. No peripheral edema. Distal pulses 2+. NEUROLOGICAL: WING. Brisk withdrawal x4 and spontaneous eye opening. Squeezes bilateral hands to command. 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 Has hemorrhagic conversion and midline shift. MRI 10/18 multiple brain abscesses. Continue with supportive care. Remains critically ill at this time, but improving. continue ongoing diuresis. Plan by systems: Neurologic: Multiple acute septic CVAs, brain abscesses Cerebral edema, Midline shift, 9 mm Small subarachnoid hemorrhage Right temporal hemorrhagic conversion Metabolic encephalopathy Agitated Delirium --MRI shows multiple brain abscesses bilaterally. Large R sided stroke with midline shift 7.[address] Michelle recommends continue medical management, Ct Saturday --Neuro slightly improved. Spontaneous eye opening, intermittently following commands --Continue hyperosmolar therapy q1h neuro checks --Use PRN Ativan and fentanyl for agitation. Continue Fentanyl gtt. Add Methadone 20 mg BID in attempt to reduce IV Fentanyl - Haldol 5mg iv q6 - We'll start him on Keppra for seizure prophylaxis, patient with multiple brain abscesses -- s/p failed trial of Seroquel. melatonin to assist with sleep/wake cycles - Precedex trial was a catastrophic failure - he was very wild and put himself in pulmonary edema. Respiratory: Acute hypoxic and hypercarbic respiratory failure Vent bundle Head of bed 30 Avoid hypercarbia and hypoxia Wean FiO2 for goal SPO2 greater than 92% -- s/p trach 10/[address] Dominguez/Osiel start CPAP daily, --TP 6-8 hours today, increase as tolerated Cardiovascular: Aortic valve endocarditis Severe aortic insufficiency, with probable AV perforation Persistent tachycardia Hypotension Arterial line, central line for invasive central pressure monitoring. DC arterial line today ABX as described below 2d echo 10/01: aortic valve vegetations, moderate AI. Echo 10/17 Sev AI, probable AV perforation --CTS consulted, will re evaluate for Mini AVR if neuro status improves remains intermittently on levophed . continue to wean as tolerated for map > 65. --Start scheduled metoprolol 12.5 mg every 8 hours for HR control Renal: Acute kidney injury- resolved. Jerez for accurate I's and O's -- Strict I/Os FEN/GI: Hypermagnesemia Metabolic Alkalosis Acute protein calorie malnutritionmild Elevated LFTs Intravascular Volume Overload jevity 1.5, nutrition consult. Dulcolax PRN Daily BMP --Lasix 40mg iv q12h --s/p Diamox 500mg iv q8h x 3 doses. Heme/ID: Infective endocarditis Septic shock- resolving. Anemia, likely secondary to hemolysis from valvulopathy 10/01 blood cultures: MSSA --10/01 sputum culture: MSSA --10/02 blood cultures: MSSA --10/03 blood cultures: MSSA --10/04 bl cx: MSSA --10/05 bl cx: NGTD --10/06 bl cx: NGTD --10/15 Enterobacter in BAL --10/16 blood culture coag negative staph probable contamination vancomycin, flagyl d/cd 10/02. --oxacillin started 10/02-DCd 10/18 and nafcillin started by ID 10/18/16 -- Started levofloxacin to cover Enterobacter 10/17 --gentamicin induction therapy per ID. started 10/05, d/c'd Infectious disease following: Dontfraid Endocrine: Hyperglycemia of critical illness -- SSI, every 6 hours, medium scale TSH 0.16, free T4 1.07, T3 < 0.5: likely sick euthyroid. Prophylaxis: GI Prophylaxis Protonix IV DVT Prophylaxis -- SCDs Holding pharmacologic DVT prophylaxis in the setting of cerebral hemorrhage, multiple brain abscesses Lines: R adial arterial line-DC today --09/30 left SC TLC d/c. New right SCV CVL placed 10/12. --Jerez Critical Care: The total critical care time was 35 minutes. Time to perform other separately billable procedures was not included in the critical care time. Gurinder Sierra MD Oct 20, 2016 11:14 Gurinder Sierra MD Oct 20, 2016 11:14
[2016-10-20] MEDS ORDERED: TERBUTALINE INJ 1 MG/ML AMP SQ PRN (11:30)
[2016-10-20] MEDS ORDERED: PHENYLEPHRINE INJ 80 MG in DEXTROSE 5% IN WATE 500 ML INJ 492 ML IV SCH ×2 (11:30)
[2016-10-20] MEDS: levETIRAcetam 500 MG/5 ML UDC NG SCH ×2 (12:41→20:16)
[2016-10-20] MEDS: fentaNYL DRIP 250 ML IV SCH (12:41)
[2016-10-20] MEDS: PHENYLEPHRINE INJ 80 MG in SODIUM CHLORID 0.9% 500 ML INJ 492 ML IV SCH (13:02)
--- NOTE | 2016-10-20 14:11 | HHI.IDPN ---
Note Infectious Disease Note Discussed with RN. On the vent. 40% FIO2. Has eyes open. Moving all extremities. Following commands. Off Levophed. Calm and more awake. Low grade temps. WBC lower than yesterday. Has trach - placed 10/15. Peg placed 10/17. Repeat TTE 10/16 noted - apparent perforation of aortic valve leaflet. severe aortic regurg. Sputum - Bronch washing 10/15 has Enterobacter. Sputum endotracheal - 10/16 - gram neg derrick. Blood cultures 09/30 Staph aureus in 5 of 6 bottles. Blood culture 10/02 positive. staph aureus. Blood culture 10/03 positive. staph aureus. Blood culture 10/04 positive. staph aureus. Blood culture 10/05 negative. Blood culture 10/06 negative. Blood culture 10/16 - 1 bottle with staph coag neg. Patient was brought to the emergency department with altered mental status. Was evaluated for rash at preceding ED evaluation 2 days prior. PAST MEDICAL HISTORY 1. Substance abuse. The patient was in rehabilitation 1 year ago. 2. ADHD. 3. Degenerative disk disease. ALLERGIES Reportedly the patient is allergic to SULFA, PENICILLIN, TORADOL, CODEINE. ANTIBIOTICS: Nafcillin Levaquin. OBJECTIVE: Vital Signs Date Time Temp Pulse Resp B/P Pulse Ox O2 Delivery O2 Flow Rate FiO2 10/20/16 12:00 111 10/20/16 10:15 100 T-piece 6.00 40 10/20/16 10:00 97 10/20/16 08:02 98 40 10/20/16 08:00 99.5 100 12 110/52 98 10/20/16 08:00 100 10/20/16 08:00 40 10/20/16 06:00 106 10/20/16 04:48 100 40 10/20/16 04:00 101 10/20/16 04:00 97.7 114 16 122/56 99 10/20/16 04:00 40 10/20/16 02:00 104 10/20/16 00:20 100 40 10/20/16 00:00 102 10/20/16 00:00 40 10/20/16 00:00 100.3 108 15 123/59 99 10/19/16 22:00 106 10/19/16 20:29 98 40 10/19/16 20:00 40 10/19/16 20:00 99.2 120 18 131/58 100 10/19/16 20:00 122 10/19/16 18:00 126 10/19/16 16:06 97 40 10/19/16 16:00 40 10/19/16 16:00 102 10/19/16 16:00 99.1 102 18 122/59 97 Arterial Line 10/19/16 10/19/16 10/20/16 15:00 23:00 07:00 Intake Total 1132 ml 1441 ml 1157 ml Output Total 2875 ml 800 ml 550 ml Balance -1743 ml 641 ml 607 ml Intake IV Total 774 ml 978 ml 564 ml Tube Feeding 298 ml 263 ml 293 ml Tube Irrigant 60 ml 200 ml 300 ml Output Urine Total 2875 ml 800 ml 550 ml # Bowel Movements 0 2 0 Laboratory Tests Test 10/19/16 10/20/16 05:00 04:00 White Blood Count 12.2 TH/MM3 11.7 TH/MM3 Red Blood Count 2.84 MIL/MM3 2.80 MIL/MM3 Hemoglobin 8.4 GM/DL 8.0 GM/DL Hematocrit 24.5 % 24.3 % Mean Corpuscular Volume 86.3 FL 86.7 FL Mean Corpuscular Hemoglobin 29.6 PG 28.6 PG Mean Corpuscular Hemoglobin 34.3 % 33.0 % Concent Red Cell Distribution Width 14.4 % 14.1 % Platelet Count 347 TH/MM3 301 TH/MM3 Mean Platelet Volume 7.7 FL 7.4 FL Neutrophils (%) (Auto) 80.1 % Lymphocytes (%) (Auto) 14.0 % Monocytes (%) (Auto) 5.0 % Eosinophils (%) (Auto) 0.5 % Basophils (%) (Auto) 0.4 % Neutrophils # (Auto) 9.4 TH/MM3 Lymphocytes # (Auto) 1.6 TH/MM3 Monocytes # (Auto) 0.6 TH/MM3 Eosinophils # (Auto) 0.1 TH/MM3 Basophils # (Auto) 0.0 TH/MM3 CBC Comment DIFF FINAL Differential Comment Laboratory Tests Test 10/18/16 10/18/16 10/19/16 10/19/16 15:31 21:33 05:00 10:15 Sodium Level 152 MEQ/L 155 MEQ/L 156 MEQ/L 157 MEQ/L Potassium Level 3.0 MEQ/L 3.7 MEQ/L Chloride Level 121 MEQ/L Carbon Dioxide Level 28.3 MEQ/L Anion Gap 7 MEQ/L Blood Urea Nitrogen 26 MG/DL Creatinine 0.87 MG/DL Estimat Glomerular Filtration 106 ML/MIN Rate Random Glucose 129 MG/DL Calcium Level 8.9 MG/DL Test 10/19/16 10/19/16 10/20/16 10/20/16 14:14 22:38 03:30 09:03 Sodium Level 158 MEQ/L 157 MEQ/L 159 MEQ/L 159 MEQ/L Potassium Level 2.8 MEQ/L Chloride Level 122 MEQ/L Carbon Dioxide Level 30.7 MEQ/L Anion Gap 6 MEQ/L Blood Urea Nitrogen 31 MG/DL Creatinine 0.81 MG/DL Estimat Glomerular Filtration 115 ML/MIN Rate Random Glucose 146 MG/DL Calcium Level 8.5 MG/DL Magnesium Level 2.4 MG/DL Total Bilirubin 0.7 MG/DL Aspartate Amino Transf 25 U/L (AST/SGOT) Alanine Aminotransferase 33 U/L (ALT/SGPT) Alkaline Phosphatase 117 U/L Total Protein 7.3 GM/DL Albumin 1.9 GM/DL Test 10/20/16 13:19 Potassium Level 3.3 MEQ/L IMAGING: Chest X-Ray 10/20/16599 Signed Impressions: Service Date/Time: Thursday, October 20, 2016 02:51 - CONCLUSION: 1. Hazy opacity remains in the right lung base. 2. Tracheostomy tube remains in place. Russell Mckeon MD Chest X-Ray 10/18/16599 Signed Impressions: Service Date/Time: October 04:52 - CONCLUSION: Mild infiltrate in the right lower lobe. Central line in good position. Loyd Black MD Brain MRI 10/18/16599 Signed Impressions: Service Date/Time: October 11:38 - CONCLUSION: 1. Grossly abnormal examination demonstrating large areas of edema with abnormal contrast enhancement in both hemispheres. There are focal rim enhancing fluid collection seen in the left posterior parietal cortex, centrally and the high left parietal cortex and in the right posterior temporal cortex. Findings would be concerning for cerebritis and abscess. 2. 7.5 mm of [id number] falcine shift. 3. Focal area of abnormal enhancement and edema within the right side of the cerebellum again concerning for cerebritis/abscess in this patient with known history of endocarditis. 4. This patient's examination has significantly worsened when compared to previous dated 09/30/16. Cody Coello MD Head CT 10/16/16 0000 Signed Impressions: Service Date/Time: Sunday, October 16, 2016 04:37 - CONCLUSION: Large area of edema in the right temporal lobe with now some central areas of hemorrhage clearly more impressive than on the , in particular the amount of hemorrhage present. I don't see drainable collection, it is more of an elongated curvilinear area. Small area stroke and edema in the medial left parietal lobe. Improvement in the lower left lateral parietal lesion with much less edema today Loyd Black MD Chest X-Ray 10/15/16 0000 Signed Impressions: Service Date/Time: Saturday, October 15, 2016 13:21 - CONCLUSION: Trach is in good position without pneumothorax. Jair Coello MD FACR PHYSICAL EXAMINATION GENERAL: Sedated. Of the vent. On trach collar. HEENT: Pupils dilated. No icterus. Oropharynx: moist mucosa. NECK: No adenopathy. No swelling. Trach site without e/o infection. LUNGS: Bibasilar rhonchi. HEART: 2-3/6 systolic murmur at the left sternal border. No rubs or gallops. ABDOMEN: Bowel sounds are present, soft, nontender. EXTREMITIES: No clubbing or cyanosis or edema. Embolic purpuric lesions at the plantar aspect of the 4th and 5th toe on the left and the great toe on the right. SKIN: Resolved rash. Dry peeled skin at tips of digits. NEURO: Unable to fully assess. Moving all extremities. PSYCH: unable to assess. IMPRESSION 1. Septic shock due to Staph aureus. Persistent bacteremia. MSSA. Blood culture now negative reflecting clearance. 2. Acute endocarditis. [place] aortic valve. Staph aureus. 3. Acute respiratory failure. 4. Bilateral lung infiltrates, probably secondary to septic emboli. PNA Staph aureus. Now has Enterobacter PNA. 5. 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 6. History of IV drug abuse. Unknown current use status. 7. Antibiotic allergies. 8. Recent drug rash. Medicines in weeks before admission: Clindamycin, Doxycycline, acyclovir, Adderral, Tylenol, prednisone, omeprazole, Ibuprofen. 9. Repeat blood culture with staph coag negative is most likely contaminant. RECOMMENDATIONS: 1. Continue Nafcillin 2 grams Q 4 hours. 2. Continue Levaquin for Pneumonia due to Enterobacter. 3. Valve replacement when feasible. 4. Monitor temps. 5. Monitor WBC. 6. Monitor clinical status. Nemesio Jackson MD Oct 20, 2016 14:10
[2016-10-20] MEDS: POTASSIUM CHLOR 20 MEQ PREMIX 100 ML IV PRN ×2 (14:40→17:14)
[2016-10-20] MEDS: LORazepam 2 MG/ML VIAL IV PUSH PRN (16:04)
[2016-10-20] MEDS: MELATONIN 5 MG TAB PO SCH (20:17)
[2016-10-21] VITALS (19 sets, daily range): BP systolic 108–129; BP diastolic 53–75; PULSE 82–140; RESP 14–24; TEMP 99.7–100.8; O2SAT 98–100
[2016-10-21] MEDS: ACETAMINOPHEN 325 MG TAB PO PRN ×3 (00:08→17:16)
[2016-10-21] MEDS: NAFCILLIN INJ 2,000 MG in SODIUM CHLORIDE 0.9% INJ 100 ML IV SCH ×6 (00:12→20:43)
[2016-10-21] MEDS: HALOPERIDOL LACTATE 5 MG/ML AMP IV SCH ×4 (02:03→20:39)
[2016-10-21] MEDS: fentaNYL DRIP 250 ML IV SCH ×3 (02:03→23:25)
[2016-10-21] MEDS: POTASSIUM CHLOR 20 MEQ PREMIX 100 ML IV PRN ×2 (02:33→04:40)
[2016-10-21] MEDS: PHENYLEPHRINE INJ 80 MG in SODIUM CHLORID 0.9% 500 ML INJ 492 ML IV SCH (03:21)
[2016-10-21] MEDS: DILTIAZEM 125 MG/NS 100 ML IV SCH ×2 (03:21)
[2016-10-21] MEDS: CHLORHEXIDINE GLUCONATE 2 % 1 PACK (2 CLOTHS) TOP SCH (03:35)
[2016-10-21 04:32] LABS: AUTOMATED NEUTROPHIL # 11.2 TH/MM3 (1.8-7.7); BASOPHIL # 0.1 TH/MM3 (0-0.2); EOSINOPHIL # 0.2 TH/MM3 (0-0.4); EOSINOPHIL % 1.3 % (0.0-4.0); HEMO FLAGS DIFF FINAL; LYMPH % 16.9 % (9.0-44.0); LYMPHOCYTE # 2.5 TH/MM3 (1.0-4.8); MEAN CELL VOLUME 87.5 FL (80.0-100.0); MEAN CORPUSCULAR HEMOGLOBIN 29.3 PG (27.0-34.0); MEAN CORPUSCULAR HGB CONC 33.5 % (32.0-36.0); MONO % 4.8 % (0.0-8.0); PLATELET COUNT 331 TH/MM3 (150-450); RED BLOOD COUNT 2.85 MIL/MM3 (4.50-5.90); WHITE BLOOD COUNT 14.7 TH/MM3 (4.0-11.0)
--- NOTE | 2016-10-21 05:06 | RADRPT ---
EXAM DATE/TIME: 10/21/2016 04:04 [facility] COMPARISON: CHEST SINGLE AP, October 20, 2016, 2:51. INDICATIONS : Shortness of breath, possible pulmonary disease, follow up infiltrate. MEDICAL HISTORY : None. SURGICAL HISTORY : Tracheostomy ENCOUNTER: Subsequent ACUITY: 1 week PAIN SCORE: Non-responsive. LOCATION: Bilateral chest FINDINGS: Board Certified Radiologist. This report was verified electronically.A single AP semierect view of the chest was obtained and aga in demonstrates the tracheostomy tube in place. The right subclavian central venous line remains in p lace. Hazy perihilar and bibasal opacities remain right greater than left without significant change. The heart size is at the upper limits of normal. There is no visualized effusion. The bony thorax re lorenza intact with overlying electrocardiogram leads. CONCLUSION: No significant change. The bibasilar pulmonary opacities are stable in appearance. Russell Mckeon MD on October 21, 2016 at 5:04
[2016-10-21 05:08] LABS: ALKALINE PHOSPHATASE 98 U/L (45-117); ALT (GPT) 26 U/L (12-78); ANION GAP 6 MEQ/L (5-15); AST (GOT) 24 U/L (15-37); BICARBONATE 29.2 MEQ/L (21.0-32.0); BLOOD UREA NITROGEN 33 MG/DL (7-18); CHLORIDE 122 MEQ/L (98-107); GLOMERULAR FILTRATION RATE 103 ML/MIN (>89); MAGNESIUM 2.4 MG/DL (1.5-2.5); POTASSIUM 3.9 MEQ/L (3.5-5.1); TOTAL BILIRUBIN ADULT 0.8 MG/DL (0.2-1.0)
[2016-10-21 05:16] LABS: SODIUM (NA) 157 MEQ/L (136-145)
[2016-10-21] MEDS: METOPROLOL TARTRATE 25 MG TAB PO SCH ×3 (05:32→20:36)
[2016-10-21 05:35] LABS: BLOOD GAS BASE EXCESS 2.8 mmol/L (-2-2); BLOOD GAS CARBOXYHEMOGLOBIN 1.2 % (0-4); BLOOD GAS HCO3 27 mmol/L (22-26); BLOOD GAS O2 HGB SATURATION 97 % (90-100); BLOOD GAS OXYGEN CONTENT 11.7 Vol % (12.0-20.0); BLOOD GAS PCO2 44 mmHg (38-42); BLOOD GAS PO2 160 mmHg (61-120); BLOOD GAS TOTAL HGB 8.3 G/DL (12.0-16.0); CRITICAL VALUE NO; DRAW SITE RT RADIAL; FIO2 40 %; NUMBER OF ARTERIAL PUNCTURES 1; OXYGEN DEVICE VENTILATOR; STAT NO; TEMP CORR TO 98.6; ULNAR PULSE PRESENT; VENT SETTINGS PRVC/AC
[2016-10-21] MEDS: DOCUSATE SODIUM 100 MG/10 ML UDC G-TUBE SCH ×2 (08:00→20:00)
[2016-10-21] MEDS: CHLORHEXIDINE 0.12% (ORAL KIT) 15 ML CUP MT SCH ×2 (08:00→20:40)
[2016-10-21] MEDS: SODIUM CHLORIDE 0.9% FLUSH 10 ML FLUSH IV FLUSH SCH ×2 (08:23→20:41)
[2016-10-21] MEDS: ARTIFICIAL TEARS OPTH SOLN 15 ML BTL EACH EYE SCH ×3 (08:23→16:35)
[2016-10-21] MEDS: BENEPROTEIN POWDER 1 PACK G-TUBE SCH ×3 (08:23→16:35)
[2016-10-21] MEDS: LEVOFLOXACIN 750 MG PREMIX INJ 150 ML IV SCH (08:28)
[2016-10-21] MEDS: PANTOPRAZOLE SODIUM 40 MG VIAL IV SCH (08:33)
[2016-10-21] MEDS: METHADONE HCL 10 MG/10 ML ORAL SOLUTION PO SCH ×3 (08:34→20:38)
[2016-10-21] MEDS: levETIRAcetam 500 MG/5 ML UDC NG SCH ×2 (08:34→20:38)
--- NOTE | 2016-10-21 08:43 | HHI.NSPN ---
(Edmundo Branch) History Chief Complaint: Trached & sedated (Edmundo Branch) Interval History 26 male with history of multiple septic cerebral emboli, significant cerebral edema with multiple areas of infarction. 10/20/16: Patient on fentanyl drip. Patient opens eyes. Pupils 3 mm bilaterally. Reactive bilaterally. He appears to be trying to follow commands. He has a trach in place and is on a rate. 10/21/16: Patient on fentanyl drip being weaned. He opens his eyes. He is following more consistently today. Pupils are 4 mm bilaterally, reactive bilaterally. He has on a Cardizem drip. (Edmundo Branch) System Review Comments Not able to obtain given clinical exam. (Edmundo Branch) Exam Results Vital Signs Date Time Temp Pulse Resp B/P Pulse Ox O2 Delivery O2 Flow Rate FiO2 10/21/16 06:00 82 10/21/16 04:08 100 40 10/21/16 04:00 100.8 14 111/53 10/20/16 10:15 T-piece 6.00 Intake and Output 10/20/16 10/20/16 10/21/16 08:00 16:00 00:00 Intake Total 1157 ml 1374 ml 1326 ml Output Total 550 ml 600 ml 800 ml Balance 607 ml 774 ml 526 ml (Edmundo Branch) Physical Examination GENERAL: Patient appears no acute distress resting in bed. He is on fentanyl drip. HEENT: No facial edema or ecchymosis. Sclerae clear and nonicteric CHEST: Respirations clear and regular. Trach in place. FiO2 40%. PEEP 5. Respiratory rate 14 CARDIOVASCULAR: Regular rhythm. Cardizem drip held this morning. ABDOMEN: Abdomen soft, nontender, positive bowel sounds. MUSCULOSKELETAL: He following commands better today INTEGUMENTARY: The tip of the right great toe with evolving necrotic area. NEUROLOGICAL: Patient on fentanyl drip. He opens his eyes. Pupils are 3 mm bilaterally reactive bilaterally. He is following commands. (Edmundo Branch) Lab, Micro, Other Results Last Impressions Chest X-Ray 10/21/16 0600 Signed Impressions: Service Date/Time: Friday, October 21, 2016 04:04 - CONCLUSION: No significant change. The bibasilar pulmonary opacities are stable in appearance. Russell Mckeon MD Brain MRI 10/18/16 0600 Signed Impressions: Service Date/Time: October 11:38 - CONCLUSION: 1. Grossly abnormal examination demonstrating large areas of edema with abnormal contrast enhancement in both hemispheres. There are focal rim enhancing fluid collection seen in the left posterior parietal cortex, centrally and the high left parietal cortex and in the right posterior temporal cortex. Findings would be concerning for cerebritis and abscess. 2. 7.5 mm of [id number] falcine shift. 3. Focal area of abnormal enhancement and edema within the right side of the cerebellum again concerning for cerebritis/abscess in this patient with known history of endocarditis. 4. This patient's examination has significantly worsened when compared to previous dated 09/30/16. Cody Coello MD Head CT 10/16/16 0000 Signed Impressions: Service Date/Time: Sunday, October 16, 2016 04:37 - CONCLUSION: Large area of edema in the right temporal lobe with now some central areas of hemorrhage clearly more impressive than on the , in particular the amount of hemorrhage present. I don't see drainable collection, it is more of an elongated curvilinear area. Small area stroke and edema in the medial left parietal lobe. Improvement in the lower left lateral parietal lesion with much less edema today Loyd Black MD Renal Ultrasound 09/30/16 0000 Signed Impressions: Service Date/Time: Friday, September 30, 2016 18:45 - CONCLUSION: Ultrasound appearance of the kidneys within normal limits. [place] catheter in the urinary bladder. Nonspecific splenomegaly incidentally noted. Michael Freitas MD Head Magnetic Resonance Angiography 09/30/16 0000 Signed Impressions: Service Date/Time: Friday, September 30, 2016 17:42 - CONCLUSION: No occlusion, aneurysm or other acute intracranial vascular abnormality demonstrated. Michael Freitas MD Laboratory Tests Test 10/20/16 10/20/16 10/20/16 10/20/16 09:03 13:19 16:00 21:00 Sodium Level 159 MEQ/L 157 MEQ/L 158 MEQ/L Potassium Level 3.3 MEQ/L Test 10/21/16 10/21/16 10/21/16 01:07 04:27 05:15 Potassium Level 3.5 MEQ/L 3.9 MEQ/L White Blood Count 14.7 TH/MM3 Red Blood Count 2.85 MIL/MM3 Hemoglobin 8.4 GM/DL Hematocrit 25.0 % Mean Corpuscular Volume 87.5 FL Mean Corpuscular Hemoglobin 29.3 PG Mean Corpuscular Hemoglobin 33.5 % Concent Red Cell Distribution Width 15.0 % Platelet Count 331 TH/MM3 Mean Platelet Volume 7.4 FL Neutrophils (%) (Auto) 76.0 % Lymphocytes (%) (Auto) 16.9 % Monocytes (%) (Auto) 4.8 % Eosinophils (%) (Auto) 1.3 % Basophils (%) (Auto) 1.0 % Neutrophils # (Auto) 11.2 TH/MM3 Lymphocytes # (Auto) 2.5 TH/MM3 Monocytes # (Auto) 0.7 TH/MM3 Eosinophils # (Auto) 0.2 TH/MM3 Basophils # (Auto) 0.1 TH/MM3 CBC Comment DIFF FINAL Differential Comment Sodium Level 157 MEQ/L Chloride Level 122 MEQ/L Carbon Dioxide Level 29.2 MEQ/L Anion Gap 6 MEQ/L Blood Urea Nitrogen 33 MG/DL Creatinine 0.89 MG/DL Estimat Glomerular Filtration 103 ML/MIN Rate Random Glucose 121 MG/DL Calcium Level 8.8 MG/DL Phosphorus Level 3.0 MG/DL Magnesium Level 2.4 MG/DL Total Bilirubin 0.8 MG/DL Aspartate Amino Transf 24 U/L (AST/SGOT) Alanine Aminotransferase 26 U/L (ALT/SGPT) Alkaline Phosphatase 98 U/L Total Protein 7.1 GM/DL Albumin 1.9 GM/DL Blood Gas Puncture Site RT RADIAL Blood Gas Patient Temperature 98.6 Blood Gas HCO3 27 mmol/L Blood Gas Base Excess 2.8 mmol/L Blood Gas Oxygen Saturation 97 % Arterial Blood pH 7.41 Arterial Blood Partial 44 mmHg Pressure CO2 Arterial Blood Partial 160 mmHg Pressure O2 Arterial Blood Oxygen Content 11.7 Vol % Arterial Blood 1.2 % Carboxyhemoglobin Arterial Blood Methemoglobin 1.0 % Blood Gas Hemoglobin 8.3 G/DL Oxygen Delivery Device VENTILATOR Blood Gas Ventilator Setting PRVC/AC Blood Gas Inspired Oxygen 40 % 10/20/16 10/20/16 10/21/16 15:00 23:00 07:00 Intake Total 1374 ml 1326 ml 1320 ml Output Total 600 ml 800 ml 720 ml Balance 774 ml 526 ml 600 ml Intake IV Total 847 ml 712 ml 715 ml Tube Feeding 227 ml 254 ml 225 ml Tube Irrigant 300 ml 360 ml 380 ml Output Urine Total 600 ml 800 ml 720 ml # Bowel Movements 1 2 1 (Edmundo Branch) Medical Decision Making Impression and Plan Impression: 1. Multiple septic emboli secondary areas of ischemia or infarction. Most recent MRI brain with evidence of small areas of residual cerebritis and abscess formation primarily over the left temporoparietal region. The area of edema in the right temporal lobe appears to be primarily an area of infarction with possible cerebritis but no focal abscess formation. Patient has approximately 8mm of midline shift on the most recent MRI, but his mental status is improving. Plan: Continuing close intensive care neurologic checks. Continue to keep sodium 145-155 range Follow-up CT scan head next week, or earlier if any change in neurologic function. (Edmundo Branch) Attending Statement The exam, history, and the medical decision-making described in the above note were completed with the assistance of the mid-level provider. I reviewed and agree with the findings presented. I attest that I had a [id number] encounter with the patient on the same day, and personally performed and documented my assessment and findings in the medical record. (Morgan Velazquez MD) Edmundo Branch Oct 21, 2016 08:43 Morgan Velazquez MD Oct 21, 2016 11:56
--- NOTE | 2016-10-21 11:19 | HHI.CCPN ---
Subjective Remarks/Hospital Course Hospital Course: This is a 26yM who presents to the ED for altered mental status. On arrival, the patient was obtunded and emergently intubated. His roommate is with him and cannot provide much medical history. The remainder of the history is per EMS and ER documentation and my discussion with the ER physician. Per EMS and ED reports, patient was seen approximately 10 days prior to admission by an unknown physician in the clinic and given antibiotic for fever. After taking the antibiotic, the patient had a new red rash on his hands and healing on his feet. He he was seen in the emergency department 2 days prior to admission for low-grade fever and congestion, generalized weakness, lightheadedness. At that time she was given prescription for prednisone 40 mg daily for 5 days. The patient's landlord apparently found the patient today with altered mental status and called EMS. When EMS arrived, his GCS was 10. There is reports that the patient has a history of substance abuse and was recently in rehabilitation. I did talk to the roommate who confirms that the patient had recently gotten out of rehabilitation and was living with him. The remainder does say that he does not think the patient has been taking any illicit substances recently. In the emergency department, the patient was hypotensive, tachycardic. His head CT is significant for significant areas of infarction in the right frontal , temporal, and cerebellar regions as well as a small area of subarachnoid hemorrhage in the superior right parietal region. Patient has early 3 mm of midline shift as well as effacement on the right. Patient's laboratory data is significant for white blood cell count of 19,000, hemoglobin of 9.9, lactate of 3.7, creatinine 1.69, CK 372, troponin of 11.9. His urine drug screen is positive for opiates and amphetamines. I performed a bedside critical care ultrasound which demonstrated hyperdynamic left ventricular function and what appears to be aortic valve vegetations and I measured to be proximally 0.9 x 8.8 cm. This is associated with what appears to be severe aortic regurgitation. There is no pericardial effusion. Right ventricular function is preserved. A formal echo has been ordered to confirm these findings. Critical care medicine has been consulted to evaluate and manage his shock, altered mental status, multiple areas of infarction, and subarachnoid hemorrhage. Subjective: 10/01: seen and examined around 06:30am. patient on norepinephrine at 6 mcg/min , persistently in shock. patient localizes to pain x 4 extremities. repeat interval head CT with 4mm midline shift. echo with significant aortic valve vegetations and moderate aortic insufficiency. 10/02: now following commands intermittently on the RUE, still localizing in LUE , BLE. off vasopressors this morning. cultures growing staph, sensitivities to follow. 10/03: tachycardic overnight. off vasopressors this morning. not following commands this morning. still persistently febrile and wbc uptrended to 20k. 10/04: still encephalopathic. EEG negative for seizure activity. received 1 trial dose of oxacillin yesterday without evidence of allergic reaction. will let ID guide this therapy, but safe from a critical care standpoint to pursue oxacillin therapy. cultures persistently positive and wbc uptrending. still febrile. 10/05: persistent encephalopathy. but now briskly purposeful x 4. now on oxacillin. discussed with ID, and will plan to start gent induction. wbc downtrending today. still febrile. will continue surveilance cultures q48h until 2 sets negative. 10/06: neuro exam unchanged. still purposeful. blood cultures negative x 24h. will re-draw today. still persists on 1mcg/min levophed, though this has also slightly improved from yesterday. 10/07: neuro exam stable. very agitated, not following commands. blood cultures negative x 48h. off levophed. 10/08: neuro exam stable. CT with increased midline shift and persistent edema, particularly right side. back on levophed. febrile. wbc stable. 10/09: sodium not at goal, likely due to normal renal function. follows commands in the RUE, which is new. spontaneously moves BLE, LUE. wbc downtrending. hgb 7 this AM, but no other signs of end-organ damage from low o2 delivery. 10/10 failed to SBT today due to rapid shallow breathing also tachycardia. Patient found to have a significant anemia below 7 will transfuse and reattempt SBT later today 10/11: Flash pulmonary edema today requiring sedation protocol and vent manipulations. Hypoxemia to 70s. 10/12: Some improvement in gas exchange after heavy sedation and relaxant. 10/13: Tmax 100.3, requiring high dose sedation. 10/14: Leukocytosis resolving. Still way ahead on free water - increase diuretics. Prealbumin , adjust TFs accordingly. 10/15: deeply sedated s/p severe agitation from prior causing pulmonary edema and hypoxia. talked with family at length, not clinically improving on pathway, will require tracheostomy and PEG tube for further improvements. also still significantly + on volume. still on vasopressors, but does not clinically appear to be in significant shock. 10/16: CT scan today with new hemorrhage into right temporal stroke area with 9mm midline shift. neurosurgery aware. no significant improvements in neurologic exam. repeat echo pending. 10/17: Neuro exam remains unchanged. Per Dr. Michelle CT from 10/16/16 showed small amount of new hemorrhage circumferentially along the area of the previous right temporal infarct. There is increased right temporal edema and mass effect but relatively focal primarily along the ventricle, and there is not significant compression along the brainstem or cisterns. Continued medical management, increased Na 145-150. Neuro exam remains unchanged Tmax 100.3, white count increased to 14.3. Enterobacter in BAL 10/15, start Levofloxacin 10/18 MRI shows multiple brain abscesses bilaterally. Large R sided stroke with midline shift 7.[address] Michelle will review images. ID feels oxacillin sufficient. Clinically neuro slightly improved. Spontaneous eye opening moves right upper and lower extremities spontaneously. (Mother states he squeezes hand to command) 10/19: Neuro exam slowly improving, squeezes with both hands. WBC count improved. Intermittently requiring Levophed. Remains tachycardic. Start scheduled metoprolol, start scheduled methadone to reduce fentanyl requirement 10/20 stable overnight, continue methadone and attempt to reduce fentanyl 10/21 will adjust methadone dose recommendation for detoxification off opiate addiction Objective Vital Signs Date Time Temp Pulse Resp B/P Pulse Ox O2 Delivery O2 Flow Rate FiO2 10/21/16 10:00 89 10/21/16 08:51 99 40 10/21/16 08:00 99.7 15 129/75 10/20/16 10:15 T-piece 6.00 Intake and Output 10/20/16 10/20/16 10/20/16 07:59 15:59 23:59 Intake Total 1157 ml 1374 ml 1326 ml Output Total 550 ml 600 ml 800 ml Balance 607 ml 774 ml 526 ml Result Diagram: 10/21/167 10/21/16426 Other Results Laboratory Tests Test 10/21/16 05:15 Blood Gas Puncture Site RT RADIAL Blood Gas Patient Temperature 98.6 Blood Gas HCO3 27 mmol/L (22-26) Blood Gas Base Excess 2.8 mmol/L (-2-2) Blood Gas Oxygen Saturation 97 % (90-100) Arterial Blood pH 7.41 (7.380-7.420) Arterial Blood Partial 44 mmHg (38-42) Pressure CO2 Arterial Blood Partial 160 mmHg Pressure O2 (61-120) Arterial Blood Oxygen Content 11.7 Vol % (12.0-20.0) Arterial Blood 1.2 % (0-4) Carboxyhemoglobin Arterial Blood Methemoglobin 1.0 % (0-2) Blood Gas Hemoglobin 8.3 G/DL (12.0-16.0) Oxygen Delivery Device VENTILATOR Blood Gas Ventilator Setting PRVC/AC Blood Gas Inspired Oxygen 40 % Imaging Last Impressions Head CT 09/30/16 1453 Signed Impressions: Service Date/Time: Friday, September 30, 2016 16:31 - CONCLUSION: Noncontrast CT findings of concern for multiple intra-axial masses. There is small acute subarachnoid blood present and about 3 mm of leftward midline shift. MRI of the brain with and without contrast recommended. Michael Freitas MD Chest X-Ray 09/30/16 6723 Signed Impressions: Service Date/Time: Friday, September 30, 2016 15:23 - CONCLUSION: No acute cardiopulmonary disease demonstrated. Appropriate endotracheal tube tip position. Nasogastric tube courses into the stomach, tip not included on the study. Michael Freitas MD Objective Remarks GENERAL: Young male, lying in bed, critically ill HEENT: Pupils 3 mm, equal, sluggishly reactive. Mucous membranes moist. NECK: No JVD. Trachea midline. trach with minimal oozing CHEST: Equal chest rise. CPAP 40%. vigorous cough with thin secretions. CARDIOVASCULAR: Tachycardic rate 120-130/min, regular rhythm. + JVD. Early Diastolic murmur Grade 3 best heard LSB ABDOMEN: Soft, nontender, nondistended. No guarding. MUSCULOSKELETAL: Rash on feet has improved. No peripheral edema. Distal pulses 2+. NEUROLOGICAL: WING. Brisk withdrawal x4 and spontaneous eye opening. Squeezes bilateral hands to command. 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 Has hemorrhagic conversion and midline shift. MRI 10/18 multiple brain abscesses. Continue with supportive care. Remains critically ill at this time, but improving. continue ongoing diuresis. Plan by systems: Neurologic: Multiple acute septic CVAs, brain abscesses Cerebral edema, Midline shift, 9 mm Small subarachnoid hemorrhage Right temporal hemorrhagic conversion Metabolic encephalopathy Agitated Delirium --MRI shows multiple brain abscesses bilaterally. Large R sided stroke with midline shift 7.[address] Michelle recommends continue medical management, Ct Saturday --Neuro slightly improved. Spontaneous eye opening, intermittently following commands --Continue hyperosmolar therapy q1h neuro checks --Use PRN Ativan and fentanyl for agitation. Continue Fentanyl gtt. - Adjust methadone to start at 10 mg every 6 hours total dose of 40 mg per day may taper up to 80-120 mg per day total dose for symptoms of withdrawal - Haldol 5mg iv q6 - Jeny for seizure prophylaxis, patient with multiple brain abscesses -- s/p failed trial of Seroquel. melatonin to assist with sleep/wake cycles - Precedex trial was a catastrophic failure - he was very wild and put himself in pulmonary edema. Respiratory: Acute hypoxic and hypercarbic respiratory failure Vent bundle Head of bed 30 Avoid hypercarbia and hypoxia Wean FiO2 for goal SPO2 greater than 92% -- s/p trach 10/[address] Dominguez/Osiel start CPAP daily, --TP 6-8 hours today, increase as tolerated Cardiovascular: Aortic valve endocarditis Severe aortic insufficiency, with probable AV perforation Persistent tachycardia Hypotension Arterial line, central line for invasive central pressure monitoring. DC arterial line today ABX as described below 2d echo 10/01: aortic valve vegetations, moderate AI. Echo 10/17 Sev AI, probable AV perforation --CTS consulted, will re evaluate for Mini AVR if neuro status improves remains intermittently on levophed . continue to wean as tolerated for map > 65. --Start scheduled metoprolol 12.5 mg every 8 hours for HR control Renal: Acute kidney injury- resolved. Jerez for accurate I's and O's -- Strict I/Os FEN/GI: Hypermagnesemia Metabolic Alkalosis Acute protein calorie malnutritionmild Elevated LFTs Intravascular Volume Overload jevity 1.5, nutrition consult. Dulcolax PRN Daily BMP --Lasix 40mg iv q12h --s/p Diamox 500mg iv q8h x 3 doses. Heme/ID: Infective endocarditis Septic shock- resolving. Anemia, likely secondary to hemolysis from valvulopathy 10/01 blood cultures: MSSA --10/01 sputum culture: MSSA --10/02 blood cultures: MSSA --10/03 blood cultures: MSSA --10/04 bl cx: MSSA --10/05 bl cx: NGTD --10/06 bl cx: NGTD --10/15 Enterobacter in BAL --10/16 blood culture coag negative staph probable contamination vancomycin, flagyl d/cd 10/02. --oxacillin started 10/02-DCd 10/18 and nafcillin started by ID 10/18/16 -- Started levofloxacin to cover Enterobacter 10/17 --gentamicin induction therapy per ID. started 10/05, d/c'd Infectious disease following: Dontfraid Endocrine: Hyperglycemia of critical illness -- SSI, every 6 hours, medium scale TSH 0.16, free T4 1.07, T3 < 0.5: likely sick euthyroid. Prophylaxis: GI Prophylaxis Protonix IV DVT Prophylaxis -- SCDs Holding pharmacologic DVT prophylaxis in the setting of cerebral hemorrhage, multiple brain abscesses Lines: R adial arterial line-DC today --09/30 left SC TLC d/c. New right SCV CVL placed 10/12. --Jerez Critical Care: The total critical care time was 35 minutes. Time to perform other separately billable procedures was not included in the critical care time. Gurinder Sierra MD Oct 21, 2016 11:19
[2016-10-21] MEDS: LORazepam 2 MG/ML VIAL IV PUSH PRN ×2 (14:39→20:39)
--- NOTE | 2016-10-21 14:39 | HHI.IDPN ---
Note Infectious Disease Note Discussed with RN. On the vent. 40% FIO2. Has eyes open. Moving all extremities. Following commands. Calm. Low grade temps. Has trach - placed 10/15. Peg placed 10/17. Repeat TTE 10/16 noted - apparent perforation of aortic valve leaflet. severe aortic regurg. Sputum - Bronch washing 10/15 has Enterobacter. Sputum endotracheal - 10/16 - gram neg derrick. Blood cultures 09/30 Staph aureus in 5 of 6 bottles. Blood culture 10/02 positive. staph aureus. Blood culture 10/03 positive. staph aureus. Blood culture 10/04 positive. staph aureus. Blood culture 10/05 negative. Blood culture 10/06 negative. Blood culture 10/16 - 1 bottle with staph coag neg. Patient was brought to the emergency department with altered mental status. Was evaluated for rash at preceding ED evaluation 2 days prior. PAST MEDICAL HISTORY 1. Substance abuse. The patient was in rehabilitation 1 year ago. 2. ADHD. 3. Degenerative disk disease. ALLERGIES Reportedly the patient is allergic to SULFA, PENICILLIN, TORADOL, CODEINE. ANTIBIOTICS: Nafcillin Levaquin. OBJECTIVE: Vital Signs Date Time Temp Pulse Resp B/P Pulse Ox O2 Delivery O2 Flow Rate FiO2 10/21/16 12:49 100 40 10/21/16 12:00 100.0 107 14 128/57 100 10/21/16 12:00 40 10/21/16 12:00 107 10/21/16 10:00 89 10/21/16 08:51 99 40 10/21/16 08:00 99.7 112 15 129/75 100 10/21/16 08:00 40 10/21/16 08:00 103 10/21/16 06:00 82 10/21/16 04:08 100 40 10/21/16 04:00 40 10/21/16 04:00 100.8 90 14 111/53 100 10/21/16 04:00 90 10/21/16 02:00 93 10/21/16 01:11 100 40 10/21/16 00:00 100.4 106 15 120/56 98 10/21/16 00:00 106 10/21/16 00:00 40 10/20/16 22:00 97 10/20/16 20:29 99 40 10/20/16 20:00 92 10/20/16 20:00 40 10/20/16 20:00 99.5 108 16 128/59 100 10/20/16 18:00 106 10/20/16 16:45 99 40 10/20/16 16:00 99 10/20/16 16:00 99.0 129 16 122/59 95 10/20/16 16:00 40 10/20/16 10/20/16 10/21/16 15:00 23:00 07:00 Intake Total 1374 ml 1326 ml 1320 ml Output Total 600 ml 800 ml 720 ml Balance 774 ml 526 ml 600 ml Intake IV Total 847 ml 712 ml 715 ml Tube Feeding 227 ml 254 ml 225 ml Tube Irrigant 300 ml 360 ml 380 ml Output Urine Total 600 ml 800 ml 720 ml # Bowel Movements 1 2 1 Laboratory Tests Test 10/20/16 10/21/16 04:00 04:27 White Blood Count 11.7 TH/MM3 14.7 TH/MM3 Red Blood Count 2.80 MIL/MM3 2.85 MIL/MM3 Hemoglobin 8.0 GM/DL 8.4 GM/DL Hematocrit 24.3 % 25.0 % Mean Corpuscular Volume 86.7 FL 87.5 FL Mean Corpuscular Hemoglobin 28.6 PG 29.3 PG Mean Corpuscular Hemoglobin 33.0 % 33.5 % Concent Red Cell Distribution Width 14.1 % 15.0 % Platelet Count 301 TH/MM3 331 TH/MM3 Mean Platelet Volume 7.4 FL 7.4 FL Neutrophils (%) (Auto) 80.1 % 76.0 % Lymphocytes (%) (Auto) 14.0 % 16.9 % Monocytes (%) (Auto) 5.0 % 4.8 % Eosinophils (%) (Auto) 0.5 % 1.3 % Basophils (%) (Auto) 0.4 % 1.0 % Neutrophils # (Auto) 9.4 TH/MM3 11.2 TH/MM3 Lymphocytes # (Auto) 1.6 TH/MM3 2.5 TH/MM3 Monocytes # (Auto) 0.6 TH/MM3 0.7 TH/MM3 Eosinophils # (Auto) 0.1 TH/MM3 0.2 TH/MM3 Basophils # (Auto) 0.0 TH/MM3 0.1 TH/MM3 CBC Comment DIFF FINAL DIFF FINAL Differential Comment Laboratory Tests Test 10/19/16 10/20/16 10/20/1610/17 22:38 03:30 09:03 13:19 Sodium Level 157 MEQ/L 159 MEQ/L 159 MEQ/L Potassium Level 2.8 MEQ/L 3.3 MEQ/L Chloride Level 122 MEQ/L Carbon Dioxide Level 30.7 MEQ/L Anion Gap 6 MEQ/L Blood Urea Nitrogen 31 MG/DL Creatinine 0.81 MG/DL Estimat Glomerular Filtration 115 ML/MIN Rate Random Glucose 146 MG/DL Calcium Level 8.5 MG/DL Magnesium Level 2.4 MG/DL Total Bilirubin 0.7 MG/DL Aspartate Amino Transf 25 U/L (AST/SGOT) Alanine Aminotransferase 33 U/L (ALT/SGPT) Alkaline Phosphatase 117 U/L Total Protein 7.3 GM/DL Albumin 1.9 GM/DL Test 10/20/16 10/20/16 10/21/16 10/21/16 16:00 21:00 01:07 04:27 Sodium Level 157 MEQ/L 158 MEQ/L 157 MEQ/L Potassium Level 3.5 MEQ/L 3.9 MEQ/L Chloride Level 122 MEQ/L Carbon Dioxide Level 29.2 MEQ/L Anion Gap 6 MEQ/L Blood Urea Nitrogen 33 MG/DL Creatinine 0.89 MG/DL Estimat Glomerular Filtration 103 ML/MIN Rate Random Glucose 121 MG/DL Calcium Level 8.8 MG/DL Phosphorus Level 3.0 MG/DL Magnesium Level 2.4 MG/DL Total Bilirubin 0.8 MG/DL Aspartate Amino Transf 24 U/L (AST/SGOT) Alanine Aminotransferase 26 U/L (ALT/SGPT) Alkaline Phosphatase 98 U/L Total Protein 7.1 GM/DL Albumin 1.9 GM/DL IMAGING: Chest X-Ray 10/21/16599 Signed Impressions: Service Date/Time: Friday, October 21, 2016 04:04 - CONCLUSION: No significant change. The bibasilar pulmonary opacities are stable in appearance. Russell Mckeon MD Chest X-Ray 10/20/16599 Signed Impressions: Service Date/Time: Thursday, October 20, 2016 02:51 - CONCLUSION: 1. Hazy opacity remains in the right lung base. 2. Tracheostomy tube remains in place. Russell Mckeon MD Chest X-Ray 10/18/16599 Signed Impressions: Service Date/Time: October 04:52 - CONCLUSION: Mild infiltrate in the right lower lobe. Central line in good position. Loyd Black MD Brain MRI 10/18/16 0600 Signed Impressions: Service Date/Time: October 11:38 - CONCLUSION: 1. Grossly abnormal examination demonstrating large areas of edema with abnormal contrast enhancement in both hemispheres. There are focal rim enhancing fluid collection seen in the left posterior parietal cortex, centrally and the high left parietal cortex and in the right posterior temporal cortex. Findings would be concerning for cerebritis and abscess. 2. 7.5 mm of [id number] falcine shift. 3. Focal area of abnormal enhancement and edema within the right side of the cerebellum again concerning for cerebritis/abscess in this patient with known history of endocarditis. 4. This patient's examination has significantly worsened when compared to previous dated 09/30/16. Cody Coello MD Head CT 10/16/16 0000 Signed Impressions: Service Date/Time: Sunday, October 16, 2016 04:37 - CONCLUSION: Large area of edema in the right temporal lobe with now some central areas of hemorrhage clearly more impressive than on the , in particular the amount of hemorrhage present. I don't see drainable collection, it is more of an elongated curvilinear area. Small area stroke and edema in the medial left parietal lobe. Improvement in the lower left lateral parietal lesion with much less edema today Loyd Black MD Chest X-Ray 10/15/16 0000 Signed Impressions: Service Date/Time: Saturday, October 15, 2016 13:21 - CONCLUSION: Trach is in good position without pneumothorax. Jair Coello MD FACR PHYSICAL EXAMINATION GENERAL: Sedated. On the vent. HEENT: Pupils dilated. No icterus. Oropharynx: moist mucosa. NECK: No adenopathy. No swelling. Trach site without e/o infection. LUNGS: Bibasilar rhonchi same. HEART: 2-3/6 systolic murmur at the left sternal border. No rubs or gallops. ABDOMEN: Bowel sounds are present, soft, nontender. EXTREMITIES: No clubbing or cyanosis or edema. Embolic purpuric lesions at the plantar aspect of the 4th and 5th toe on the left and the great toe on the right. SKIN: Resolved rash. Dry peeled skin at tips of digits. NEURO: Unable to fully assess. Moving all extremities. PSYCH: unable to assess. IMPRESSION 1. Septic shock due to Staph aureus. Persistent bacteremia. MSSA. Blood culture now negative reflecting clearance. 2. Acute endocarditis. [place] aortic valve. Staph aureus. 3. Acute respiratory failure. 4. Bilateral lung infiltrates, probably secondary to septic emboli. PNA Staph aureus. Now has Enterobacter PNA. 5. 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 6. History of IV drug abuse. Unknown current use status. 7. Antibiotic allergies. 8. Recent drug rash. Medicines in weeks before admission: Clindamycin, Doxycycline, acyclovir, Adderral, Tylenol, prednisone, omeprazole, Ibuprofen. 9. Repeat blood culture with staph coag negative is most likely contaminant. 10. Low grade fever. WBC elevated. RECOMMENDATIONS: 1. Continue Nafcillin 2 grams Q 4 hours. 2. Continue Levaquin for Pneumonia due to Enterobacter. 3. Valve replacement when feasible. 4. Repeat blood and sputum culture. 5. Monitor WBC. 6. Monitor clinical status. Nemesio Jackson MD Oct 21, 2016 14:39
[2016-10-21] MEDS: MELATONIN 5 MG TAB PO SCH (20:38)
[2016-10-21] MEDS: RESP: ALBUTEROL 2.5 MG/3 ML NEB (PRN) INH (20:49)
[2016-10-21 21:33] LABS: BACTERIA, URINE OCC /hpf; BLOOD, URINE LARGE (NEG); GLUCOSE,URINE NEG (NEG); KETONE, URINE NEG (NEG); MUCUS URINE FEW /lpf (OCC); NITRITE,URINE NEG (NEG); PH, URINE 6.5 (5.0-8.5)
[2016-10-21 21:35] LABS: COMMENT (UR) CATH-CULTURE IND; CULTURE IF INDICATED CATH CULTURE IND; URINE COLOR RED (YELLW/STRAW)
[2016-10-22] VITALS (17 sets, daily range): BP systolic 93–118; BP diastolic 45–57; PULSE 96–139; RESP 14–20; TEMP 98.8–101.7; O2SAT 98–100
[2016-10-22] MEDS: NAFCILLIN INJ 2,000 MG in SODIUM CHLORIDE 0.9% INJ 100 ML IV SCH ×7 (00:13→23:25)
[2016-10-22] MEDS: HALOPERIDOL LACTATE 5 MG/ML AMP IV SCH ×4 (02:11→19:46)
[2016-10-22] MEDS: METHADONE HCL 10 MG/10 ML ORAL SOLUTION PO SCH ×4 (02:12→19:45)
[2016-10-22] MEDS: ACETAMINOPHEN 325 MG TAB PO PRN ×2 (02:24→19:45)
[2016-10-22] MEDS: CHLORHEXIDINE GLUCONATE 2 % 1 PACK (2 CLOTHS) TOP SCH (02:30)
[2016-10-22] MEDS: PHENYLEPHRINE INJ 80 MG in SODIUM CHLORID 0.9% 500 ML INJ 492 ML IV SCH (02:43)
--- NOTE | 2016-10-22 04:25 | RADRPT ---
EXAM DATE/TIME: 10/22/2016 03:33 [facility] COMPARISON: CHEST SINGLE AP, October 21, 2016, 4:04. INDICATIONS : Short of breath. MEDICAL HISTORY : None. SURGICAL HISTORY : Tracheostomy. ENCOUNTER: Subsequent ACUITY: 1 week PAIN SCORE: 0/10 LOCATION: Bilateral chest FINDINGS: Right subclavian line is present with tip overlapping the expected region of the SVC. Tracheostomy tu be is present in satisfactory position. There is perivascular pulmonary edema slightly worse since th e prior exam. The rest of the examination has not significantly changed. CONCLUSION: Slight worsening of pulmonary edema. Angela Basilio MD on October 22, 2016 at 4:23 Board Certified Radiologist. This report was verified electronically.
--- NOTE | 2016-10-22 04:35 | RADRPT ---
EXAM DATE/TIME: 10/22/2016 04:14 [facility] COMPARISON: MRI BRAIN W & W/O CONTRAST, October 18, 2016, 11:38. CT BRAIN W/O CONTRAST, October 16, 2016, 4:37. INDICATIONS : Septic emboli. RADIATION DOSE: 41.41 CTDIvol (mGy) MEDICAL HISTORY : Cardiovascular disease. SURGICAL HISTORY : Dental surgery, cyst removed from base of spine. ENCOUNTER: Subsequent ACUITY: 3 weeks PAIN SCALE: Non-responsive LOCATION: cranial TECHNIQUE: Multiple contiguous axial images were obtained of the head. Using automated exposure control and adj ustment of the mA and/or kV according to patient size, radiation dose was kept as low as reasonably a chievable to obtain optimal diagnostic quality images. FINDINGS: There is slight improvement in degree of hemorrhage within the right temporal lobe with maximum thickness of 1.6 cm, this same area measured 2.1 cm on the study from 10/16/2016. Surrounding vasogenic edema in the right temporal and left parietal lobes with extension into basal ganglia have not naik ed and there is also slight degree of hemorrhage in left high convexity posterior parietal lobule. Th ere are scattered areas of lucencies as well within the white matter tracts also not significantly ch anged. No significant mass effect is identified. CONCLUSION: There is slight improvement in the degree of hemorrhage within the right temporal lobe, however surro unding vasogenic edema has not changed and the rest of the examination has not significantly changed. Angela Basilio MD on October 22, 2016 at 4:30 Board Certified Radiologist. This report was verified electronically.
[2016-10-22 04:54] LABS: AUTOMATED NEUTROPHIL # 9.8 TH/MM3 (1.8-7.7); BASOPHIL # 0.1 TH/MM3 (0-0.2); BASOPHIL % 0.5 % (0.0-2.0); EOSINOPHIL # 0.2 TH/MM3 (0-0.4); EOSINOPHIL % 1.2 % (0.0-4.0); HEMATOCRIT 23.4 % (39.0-51.0); HEMO FLAGS DIFF FINAL; LYMPH % 15.2 % (9.0-44.0); LYMPHOCYTE # 1.9 TH/MM3 (1.0-4.8); MEAN CELL VOLUME 87.2 FL (80.0-100.0); MEAN CORPUSCULAR HEMOGLOBIN 28.6 PG (27.0-34.0); MEAN CORPUSCULAR HGB CONC 32.8 % (32.0-36.0); MONO % 4.4 % (0.0-8.0); NEUT % 78.7 % (16.0-70.0); PLATELET COUNT 260 TH/MM3 (150-450); RED BLOOD COUNT 2.69 MIL/MM3 (4.50-5.90); RED CELL DISTRIBUTION WIDTH 14.8 % (11.6-17.2); WHITE BLOOD COUNT 12.5 TH/MM3 (4.0-11.0)
[2016-10-22 05:16] LABS: ALT (GPT) 21 U/L (12-78); ANION GAP 6 MEQ/L (5-15); AST (GOT) 19 U/L (15-37); BICARBONATE 27.9 MEQ/L (21.0-32.0); BLOOD UREA NITROGEN 32 MG/DL (7-18); CHLORIDE 120 MEQ/L (98-107); GLOMERULAR FILTRATION RATE 91 ML/MIN (>89); MAGNESIUM 2.2 MG/DL (1.5-2.5); POTASSIUM 3.3 MEQ/L (3.5-5.1); SODIUM (NA) 154 MEQ/L (136-145)
[2016-10-22 05:18] LABS: ALKALINE PHOSPHATASE 78 U/L (45-117); TOTAL BILIRUBIN ADULT 0.6 MG/DL (0.2-1.0)
[2016-10-22] MEDS: METOPROLOL TARTRATE 25 MG TAB PO SCH ×3 (05:27→22:00)
[2016-10-22 06:00] LABS: BLOOD GAS BASE EXCESS 1.3 mmol/L (-2-2); BLOOD GAS CARBOXYHEMOGLOBIN 1.1 % (0-4); BLOOD GAS HCO3 25 mmol/L (22-26); BLOOD GAS O2 HGB SATURATION 97 % (90-100); BLOOD GAS OXYGEN CONTENT 11.2 Vol % (12.0-20.0); BLOOD GAS PCO2 41 mmHg (38-42); BLOOD GAS PO2 178 mmHg (61-120); BLOOD GAS TOTAL HGB 7.9 G/DL (12.0-16.0); CRITICAL VALUE NO; DRAW SITE RT RADIAL; FIO2 40 %; NUMBER OF ARTERIAL PUNCTURES 1; OXYGEN DEVICE VENTILATOR; STAT NO; TEMP CORR TO 98.6; ULNAR PULSE PRESENT; VENT SETTINGS PRVC14/550/1.0/5
[2016-10-22] MEDS: POTASSIUM CHLOR 40 MEQ PREMIX 100 ML IV PRN (06:22)
[2016-10-22] MEDS: LORazepam 2 MG/ML VIAL IV PUSH PRN ×3 (06:44→22:39)
[2016-10-22] MEDS: DOCUSATE SODIUM 100 MG/10 ML UDC G-TUBE SCH ×2 (08:31→19:41)
[2016-10-22] MEDS: PANTOPRAZOLE SODIUM 40 MG VIAL IV SCH (08:31)
[2016-10-22] MEDS: levETIRAcetam 500 MG/5 ML UDC NG SCH ×2 (08:31→19:47)
[2016-10-22] MEDS: LEVOFLOXACIN 750 MG PREMIX INJ 150 ML IV SCH (08:31)
[2016-10-22] MEDS: CHLORHEXIDINE 0.12% (ORAL KIT) 15 ML CUP MT SCH ×2 (08:32→19:47)
[2016-10-22] MEDS: BENEPROTEIN POWDER 1 PACK G-TUBE SCH ×3 (08:33→17:19)
[2016-10-22] MEDS: SODIUM CHLORIDE 0.9% FLUSH 10 ML FLUSH IV FLUSH SCH ×2 (08:34→19:46)
[2016-10-22] MEDS: ARTIFICIAL TEARS OPTH SOLN 15 ML BTL EACH EYE SCH ×3 (08:34→17:19)
--- NOTE | 2016-10-22 08:34 | HHI.CCPN ---
Subjective Remarks/Hospital Course Hospital Course: This is a 26yM who presents to the ED for altered mental status. On arrival, the patient was obtunded and emergently intubated. His roommate is with him and cannot provide much medical history. The remainder of the history is per EMS and ER documentation and my discussion with the ER physician. Per EMS and ED reports, patient was seen approximately 10 days prior to admission by an unknown physician in the clinic and given antibiotic for fever. After taking the antibiotic, the patient had a new red rash on his hands and healing on his feet. He he was seen in the emergency department 2 days prior to admission for low-grade fever and congestion, generalized weakness, lightheadedness. At that time she was given prescription for prednisone 40 mg daily for 5 days. The patient's landlord apparently found the patient today with altered mental status and called EMS. When EMS arrived, his GCS was 10. There is reports that the patient has a history of substance abuse and was recently in rehabilitation. I did talk to the roommate who confirms that the patient had recently gotten out of rehabilitation and was living with him. The remainder does say that he does not think the patient has been taking any illicit substances recently. In the emergency department, the patient was hypotensive, tachycardic. His head CT is significant for significant areas of infarction in the right frontal , temporal, and cerebellar regions as well as a small area of subarachnoid hemorrhage in the superior right parietal region. Patient has early 3 mm of midline shift as well as effacement on the right. Patient's laboratory data is significant for white blood cell count of 19,000, hemoglobin of 9.9, lactate of 3.7, creatinine 1.69, CK 372, troponin of 11.9. His urine drug screen is positive for opiates and amphetamines. I performed a bedside critical care ultrasound which demonstrated hyperdynamic left ventricular function and what appears to be aortic valve vegetations and I measured to be proximally 0.9 x 8.8 cm. This is associated with what appears to be severe aortic regurgitation. There is no pericardial effusion. Right ventricular function is preserved. A formal echo has been ordered to confirm these findings. Critical care medicine has been consulted to evaluate and manage his shock, altered mental status, multiple areas of infarction, and subarachnoid hemorrhage. Subjective: 10/01: seen and examined around 06:30am. patient on norepinephrine at 6 mcg/min , persistently in shock. patient localizes to pain x 4 extremities. repeat interval head CT with 4mm midline shift. echo with significant aortic valve vegetations and moderate aortic insufficiency. 10/02: now following commands intermittently on the RUE, still localizing in LUE , BLE. off vasopressors this morning. cultures growing staph, sensitivities to follow. 10/03: tachycardic overnight. off vasopressors this morning. not following commands this morning. still persistently febrile and wbc uptrended to 20k. 10/04: still encephalopathic. EEG negative for seizure activity. received 1 trial dose of oxacillin yesterday without evidence of allergic reaction. will let ID guide this therapy, but safe from a critical care standpoint to pursue oxacillin therapy. cultures persistently positive and wbc uptrending. still febrile. 10/05: persistent encephalopathy. but now briskly purposeful x 4. now on oxacillin. discussed with ID, and will plan to start gent induction. wbc downtrending today. still febrile. will continue surveilance cultures q48h until 2 sets negative. 10/06: neuro exam unchanged. still purposeful. blood cultures negative x 24h. will re-draw today. still persists on 1mcg/min levophed, though this has also slightly improved from yesterday. 10/07: neuro exam stable. very agitated, not following commands. blood cultures negative x 48h. off levophed. 10/08: neuro exam stable. CT with increased midline shift and persistent edema, particularly right side. back on levophed. febrile. wbc stable. 10/09: sodium not at goal, likely due to normal renal function. follows commands in the RUE, which is new. spontaneously moves BLE, LUE. wbc downtrending. hgb 7 this AM, but no other signs of end-organ damage from low o2 delivery. 10/10 failed to SBT today due to rapid shallow breathing also tachycardia. Patient found to have a significant anemia below 7 will transfuse and reattempt SBT later today 10/11: Flash pulmonary edema today requiring sedation protocol and vent manipulations. Hypoxemia to 70s. 10/12: Some improvement in gas exchange after heavy sedation and relaxant. 10/13: Tmax 100.3, requiring high dose sedation. 10/14: Leukocytosis resolving. Still way ahead on free water - increase diuretics. Prealbumin , adjust TFs accordingly. 10/15: deeply sedated s/p severe agitation from prior causing pulmonary edema and hypoxia. talked with family at length, not clinically improving on pathway, will require tracheostomy and PEG tube for further improvements. also still significantly + on volume. still on vasopressors, but does not clinically appear to be in significant shock. 10/16: CT scan today with new hemorrhage into right temporal stroke area with 9mm midline shift. neurosurgery aware. no significant improvements in neurologic exam. repeat echo pending. 10/17: Neuro exam remains unchanged. Per Dr. Michelle CT from 10/16/16 showed small amount of new hemorrhage circumferentially along the area of the previous right temporal infarct. There is increased right temporal edema and mass effect but relatively focal primarily along the ventricle, and there is not significant compression along the brainstem or cisterns. Continued medical management, increased Na 145-150. Neuro exam remains unchanged Tmax 100.3, white count increased to 14.3. Enterobacter in BAL 10/15, start Levofloxacin 10/18 MRI shows multiple brain abscesses bilaterally. Large R sided stroke with midline shift 7.[address] Michelle will review images. ID feels oxacillin sufficient. Clinically neuro slightly improved. Spontaneous eye opening moves right upper and lower extremities spontaneously. (Mother states he squeezes hand to command) 10/19: Neuro exam slowly improving, squeezes with both hands. WBC count improved. Intermittently requiring Levophed. Remains tachycardic. Start scheduled metoprolol, start scheduled methadone to reduce fentanyl requirement 10/20 stable overnight, continue methadone and attempt to reduce fentanyl 10/21 will adjust methadone dose recommendation for detoxification off opiate addiction 10/22: Received Ativan overnight for agitation, now sedated moving all extremities spontaneously. Sodium 153. Urine output is adequate. Chest x-ray shows mild pulmonary edema Objective Vital Signs Date Time Temp Pulse Resp B/P Pulse Ox O2 Delivery O2 Flow Rate FiO2 10/22/16 06:00 101 10/22/16 04:43 99 40 10/22/16 04:00 101.3 14 117/56 10/20/16 10:15 T-piece 6.00 Intake and Output 10/21/16 10/21/16 10/22/16 08:00 16:00 00:00 Intake Total 1320 ml 1734 ml 924 ml Output Total 720 ml 1100 ml 1250 ml Balance 600 ml 634 ml -326 ml Result Diagram: 10/22/16 0350 10/22/16 0350 Other Results Laboratory Tests Test 10/22/16 05:50 Blood Gas Puncture Site RT RADIAL Blood Gas Patient Temperature 98.6 Blood Gas HCO3 25 mmol/L (22-26) Blood Gas Base Excess 1.3 mmol/L (-2-2) Blood Gas Oxygen Saturation 97 % (90-100) Arterial Blood pH 7.42 (7.380-7.420) Arterial Blood Partial 41 mmHg (38-42) Pressure CO2 Arterial Blood Partial 178 mmHg Pressure O2 (61-120) Arterial Blood Oxygen Content 11.2 Vol % (12.0-20.0) Arterial Blood 1.1 % (0-4) Carboxyhemoglobin Arterial Blood Methemoglobin 1.0 % (0-2) Blood Gas Hemoglobin 7.9 G/DL (12.0-16.0) Oxygen Delivery Device VENTILATOR Blood Gas Ventilator Setting PRVC14/550/1.0/5 Blood Gas Inspired Oxygen 40 % Imaging Last Impressions Head CT 09/30/161452 Signed Impressions: Service Date/Time: Friday, September 30, 2016 16:31 - CONCLUSION: Noncontrast CT findings of concern for multiple intra-axial masses. There is small acute subarachnoid blood present and about 3 mm of leftward midline shift. MRI of the brain with and without contrast recommended. Michael Freitas MD Chest X-Ray 09/30/16 Signed Impressions: Service Date/Time: Friday, September 30, 2016 15:23 - CONCLUSION: No acute cardiopulmonary disease demonstrated. Appropriate endotracheal tube tip position. Nasogastric tube courses into the stomach, tip not included on the study. Michael Freitas MD Objective Remarks GENERAL: Young male, lying in bed, critically ill HEENT: Pupils 3 mm, equal, sluggishly reactive. Mucous membranes moist. NECK: No JVD. Trachea midline. trach with minimal oozing CHEST: Equal chest rise. CPAP 40%. vigorous cough with thin secretions. CARDIOVASCULAR: HR 90-110/min, regular rhythm. + JVD. Early Diastolic murmur Grade 3 best heard LSB ABDOMEN: Soft, nontender, nondistended. No guarding. MUSCULOSKELETAL: Rash on feet has improved. No peripheral edema. Distal pulses 2+. NEUROLOGICAL: WING. Brisk withdrawal x4 and spontaneous eye opening. Intermittently squeezes bilateral hands to command. 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 Has hemorrhagic conversion and midline shift. MRI 10/18 multiple brain abscesses. Continue with supportive care. Remains critically ill at this time, but improving. continue ongoing diuresis. Plan by systems: Neurologic: Multiple acute septic CVAs, brain abscesses Cerebral edema, Midline shift, 9 mm Small subarachnoid hemorrhage Right temporal hemorrhagic conversion Metabolic encephalopathy Agitated Delirium --MRI shows multiple brain abscesses bilaterally. Large R sided stroke with midline shift 7.[address] Michelle recommends continue medical management, --CT head today10/22: Slight improvement in right temporal hemorrhage with persistent vasogenic edema. Midline shift appears improved to me --Spontaneous eye opening, intermittently following commands --Continue hyperosmolar therapy --Use PRN Ativan and fentanyl for agitation. Continue Fentanyl gtt. Start Ativan 1 mg PO q8hr --Methadone 10 mg every 6 hours total dose of 40 mg per day may increase up to 80-120 mg per day total dose for symptoms of withdrawal --Haldol 5mg iv q6 --Keppra for seizure prophylaxis, patient with multiple brain abscesses --s/p failed trial of Seroquel. melatonin to assist with sleep/wake cycles --Precedex trial was a catastrophic failure - he was very wild and put himself in pulmonary edema. Respiratory: Acute hypoxic and hypercarbic respiratory failure Mild pulmonary edema Vent bundle, head of bed 30 Avoid hypercarbia and hypoxia Wean FiO2 for goal SPO2 greater than 90% --s/p trach 10/[address] Dominguez/Osiel --TP up to 12 hours with PS ventilation at night Cardiovascular: Aortic valve endocarditis Severe aortic insufficiency, with probable AV perforation Persistent tachycardia Hypotension ABX as described below 2d echo 10/01: aortic valve vegetations, moderate AI. Echo 10/17 Sev AI, probable AV perforation --CTS consulted, will re evaluate for Mini AVR if neuro status improves remains intermittently on levophed/ortega-synephrine. continue to wean as tolerated for map > 65. --Scheduled metoprolol 12.5 mg every 8 hours for HR control --DC Cardizem Renal: Acute kidney injury- resolved. Jerez for accurate I's and O's -- Strict I/Os FEN/GI: Hypermagnesemia Metabolic Alkalosis Acute protein calorie malnutritionmild Elevated LFTs Intravascular Volume Overload Jevity 1.5, nutrition consult. Dulcolax PRN Daily BMP --s/p Lasix 40mg iv q12h DCd 10/19/16 --s/p Diamox 500mg iv q8h x 3 doses. Heme/ID: Infective endocarditis with embolic complications and severe aortic insufficiency Septic shock- resolving. Anemia, likely secondary to hemolysis from valvulopathy 10/01 blood cultures: MSSA --10/01 sputum culture: MSSA --10/02 blood cultures: MSSA --10/03 blood cultures: MSSA --10/04 bl cx: MSSA --10/05 bl cx: NGTD --10/06 bl cx: NGTD --10/15 Enterobacter in BAL --10/16 blood culture coag negative staph probable contamination vancomycin, flagyl d/cd 10/02. --oxacillin started 10/02-DCd 10/18 and nafcillin started by ID 10/18/16 --Levofloxacin to cover Enterobacter 10/17- --gentamicin induction therapy per ID. started 10/05, d/c'd Infectious disease following: Dontfraid Endocrine: Hyperglycemia of critical illness -- SSI, every 6 hours, medium scale TSH 0.16, free T4 1.07, T3 < 0.5: likely sick euthyroid. Prophylaxis: GI Prophylaxis Protonix IV DVT Prophylaxis -- SCDs Holding pharmacologic DVT prophylaxis in the setting of cerebral hemorrhage, multiple brain abscesses Lines: --09/30 left SC TLC d/c. New right SCV CVL placed 10/12. --[facility] Critical Care: The total critical care time was 35 minutes. Time to perform other separately billable procedures was not included in the critical care time. Mary Rodriguez MD Oct 22, 2016 08:34
[2016-10-22] MEDS: LORazepam 1 MG TAB PO SCH ×3 (09:50→22:00)
[2016-10-22] MEDS: fentaNYL DRIP 250 ML IV SCH (10:15)
--- NOTE | 2016-10-22 12:05 | HHI.IDPN ---
Note Infectious Disease Note Discussed with RN. Now on T- piece. Has eyes open. Moving all extremities. Following commands per mom. Has low grade fever. Trach - placed 10/15. Peg placed 10/17. Repeat TTE 10/16 noted - apparent perforation of aortic valve leaflet. severe aortic regurg. Sputum - Bronch washing 10/15 has Enterobacter. Sputum endotracheal - 10/16 - gram neg derrick. Blood cultures 09/30 Staph aureus in 5 of 6 bottles. Blood culture 10/02 positive. staph aureus. Blood culture 10/03 positive. staph aureus. Blood culture 10/04 positive. staph aureus. Blood culture 10/05 negative. Blood culture 10/06 negative. Blood culture 10/16 - 1 bottle with staph coag neg. Blood culture 10/21 - pending. Patient was brought to the emergency department with altered mental status. Was evaluated for rash at preceding ED evaluation 2 days prior. PAST MEDICAL HISTORY 1. Substance abuse. The patient was in rehabilitation 1 year ago. 2. ADHD. 3. Degenerative disk disease. ALLERGIES Reportedly the patient is allergic to SULFA, PENICILLIN, TORADOL, CODEINE. ANTIBIOTICS: Nafcillin Levaquin. OBJECTIVE: Vital Signs Date Time Temp Pulse Resp B/P Pulse Ox O2 Delivery O2 Flow Rate FiO2 10/22/16 09:35 40 10/22/16 09:35 100 T-piece 6.00 40 10/22/16 08:30 99 40 10/22/16 08:00 100.0 120 20 116/57 98 10/22/16 08:00 120 10/22/16 08:00 40 10/22/16 06:00 101 10/22/16 04:43 99 40 10/22/16 04:00 117 10/22/16 04:00 101.3 117 14 117/56 100 10/22/16 04:00 100 100 10/22/16 04:00 40 10/22/16 02:00 98 10/22/16 00:04 100 40 10/22/16 00:00 40 10/22/16 00:00 96 10/22/16 00:00 100.6 98 14 109/52 100 10/21/16 22:00 94 10/21/16 20:48 115 10/21/16 20:44 100 40 10/21/16 20:00 100.0 140 16 108/55 100 10/21/16 20:00 40 10/21/16 18:00 114 10/21/16 17:03 98 40 10/21/16 16:00 100.2 102 24 123/58 98 10/21/16 16:00 40 10/21/16 16:00 102 10/21/16 14:00 102 10/21/16 12:49 100 40 10/21/16 12:00 100.0 107 14 128/57 100 10/21/16 12:00 40 10/21/16 12:00 107 10/21/16 10/21/16 10/22/16 15:00 23:00 07:00 Intake Total 1734 ml 924 ml 1027 ml Output Total 1100 ml 1250 ml 1300 ml Balance 634 ml -326 ml -273 ml Intake IV Total 784 ml 519 ml 581 ml Tube Feeding 250 ml 205 ml 146 ml Other 700 ml 200 ml 300 ml Output Urine Total 1100 ml 750 ml 600 ml Stool Total 500 ml 700 ml # Bowel Movements 0 3 Laboratory Tests Test 10/21/16 10/22/16 04:27 03:50 White Blood Count 14.7 TH/MM3 12.5 TH/MM3 Red Blood Count 2.85 MIL/MM3 2.69 MIL/MM3 Hemoglobin 8.4 GM/DL 7.7 GM/DL Hematocrit 25.0 % 23.4 % Mean Corpuscular Volume 87.5 FL 87.2 FL Mean Corpuscular Hemoglobin 29.3 PG 28.6 PG Mean Corpuscular Hemoglobin 33.5 % 32.8 % Concent Red Cell Distribution Width 15.0 % 14.8 % Platelet Count 331 TH/MM3 260 TH/MM3 Mean Platelet Volume 7.4 FL 8.0 FL Neutrophils (%) (Auto) 76.0 % 78.7 % Lymphocytes (%) (Auto) 16.9 % 15.2 % Monocytes (%) (Auto) 4.8 % 4.4 % Eosinophils (%) (Auto) 1.3 % 1.2 % Basophils (%) (Auto) 1.0 % 0.5 % Neutrophils # (Auto) 11.2 TH/MM3 9.8 TH/MM3 Lymphocytes # (Auto) 2.5 TH/MM3 1.9 TH/MM3 Monocytes # (Auto) 0.7 TH/MM3 0.6 TH/MM3 Eosinophils # (Auto) 0.2 TH/MM3 0.2 TH/MM3 Basophils # (Auto) 0.1 TH/MM3 0.1 TH/MM3 CBC Comment DIFF FINAL DIFF FINAL Differential Comment Laboratory Tests Test 10/20/16 10/20/16 10/20/16 10/21/16 13:19 16:00 21:00 01:07 Potassium Level 3.3 MEQ/L 3.5 MEQ/L Sodium Level 157 MEQ/L 158 MEQ/L Test 10/21/16 10/22/16 04:27 03:50 Sodium Level 157 MEQ/L 154 MEQ/L Potassium Level 3.9 MEQ/L 3.3 MEQ/L Chloride Level 122 MEQ/L 120 MEQ/L Carbon Dioxide Level 29.2 MEQ/L 27.9 MEQ/L Anion Gap 6 MEQ/L 6 MEQ/L Blood Urea Nitrogen 33 MG/DL 32 MG/DL Creatinine 0.89 MG/DL 0.99 MG/DL Estimat Glomerular Filtration 103 ML/MIN 91 ML/MIN Rate Random Glucose 121 MG/DL 117 MG/DL Calcium Level 8.8 MG/DL 8.4 MG/DL Phosphorus Level 3.0 MG/DL 3.0 MG/DL Magnesium Level 2.4 MG/DL 2.2 MG/DL Total Bilirubin 0.8 MG/DL 0.6 MG/DL Aspartate Amino Transf 24 U/L 19 U/L (AST/SGOT) Alanine Aminotransferase 26 U/L 21 U/L (ALT/SGPT) Alkaline Phosphatase 98 U/L 78 U/L Total Protein 7.1 GM/DL 6.4 GM/DL Albumin 1.9 GM/DL 1.8 GM/DL Microbiology Date/Time Procedure Status Source Growth 10/21/16 17:50 Gram Stain - Final Resulted Sputum Endotracheal 10/21/16 17:50 Sputum Culture Resulted Sputum Endotracheal Pending 10/21/16 17:50 Urine Culture Received Urine Catheterized Urine Pending 10/21/16 19:15 Aerobic Blood Culture - Preliminary Resulted Blood Peripheral NO GROWTH IN 1 DAY 10/21/16 19:15 Anaerobic Blood Culture - Preliminary Resulted Blood Peripheral NO GROWTH IN 1 DAY 10/21/16 19:25 Aerobic Blood Culture - Preliminary Resulted Blood Peripheral NO GROWTH IN 1 DAY 10/21/16 19:25 Anaerobic Blood Culture - Preliminary Resulted Blood Peripheral NO GROWTH IN 1 DAY IMAGING: Head CT 10/22/16 0600 Signed Impressions: Service Date/Time: Saturday, October 22, 2016 04:14 - CONCLUSION: There is slight improvement in the degree of hemorrhage within the right temporal lobe, however surrounding vasogenic edema has not changed and the rest of the examination has not significantly changed. Angela Basilio MD Chest X-Ray 10/22/16599 Signed Impressions: Service Date/Time: Saturday, October 22, 2016 03:33 - CONCLUSION: Slight worsening of pulmonary edema. Angela Basilio MD Chest X-Ray 10/21/16599 Signed Impressions: Service Date/Time: Friday, October 21, 2016 04:04 - CONCLUSION: No significant change. The bibasilar pulmonary opacities are stable in appearance. Russell Mckeon MD Chest X-Ray 10/20/16599 Signed Impressions: Service Date/Time: Thursday, October 20, 2016 02:51 - CONCLUSION: 1. Hazy opacity remains in the right lung base. 2. Tracheostomy tube remains in place. Russell Mckeon MD Chest X-Ray 10/18/16599 Signed Impressions: Service Date/Time: October 04:52 - CONCLUSION: Mild infiltrate in the right lower lobe. Central line in good position. Loyd Black MD Brain MRI 10/18/16599 Signed Impressions: Service Date/Time: October 11:38 - CONCLUSION: 1. Grossly abnormal examination demonstrating large areas of edema with abnormal contrast enhancement in both hemispheres. There are focal rim enhancing fluid collection seen in the left posterior parietal cortex, centrally and the high left parietal cortex and in the right posterior temporal cortex. Findings would be concerning for cerebritis and abscess. 2. 7.5 mm of [id number] falcine shift. 3. Focal area of abnormal enhancement and edema within the right side of the cerebellum again concerning for cerebritis/abscess in this patient with known history of endocarditis. 4. This patient's examination has significantly worsened when compared to previous dated 09/30/16. Cody Coello MD Head CT 10/16/16 0000 Signed Impressions: Service Date/Time: Sunday, October 16, 2016 04:37 - CONCLUSION: Large area of edema in the right temporal lobe with now some central areas of hemorrhage clearly more impressive than on the , in particular the amount of hemorrhage present. I don't see drainable collection, it is more of an elongated curvilinear area. Small area stroke and edema in the medial left parietal lobe. Improvement in the lower left lateral parietal lesion with much less edema today Loyd Black MD Chest X-Ray 10/15/16 0000 Signed Impressions: Service Date/Time: Saturday, October 15, 2016 13:21 - CONCLUSION: Trach is in good position without pneumothorax. Jair Coello MD FACR PHYSICAL EXAMINATION GENERAL: Sedated. On the vent. HEENT: Pupils dilated. No icterus. Oropharynx: moist mucosa. NECK: No adenopathy. No swelling. Trach site without e/o infection. LUNGS: Bibasilar rhonchi same. HEART: 2-3/6 systolic murmur at the left sternal border. Loud S1S2. No rubs or gallops. ABDOMEN: Bowel sounds are present, soft, nontender. - carrera has cloudy urine. EXTREMITIES: No clubbing or cyanosis or edema. Embolic purpuric lesions at the plantar aspect of the 4th and 5th toe on the left and the great toe on the right are fading. SKIN: Resolved rash. Dry peeled skin at tips of digits and soles of feet. NEURO: Moving all extremities. PSYCH: Unable to assess. IMPRESSION 1. Septic shock due to Staph aureus. Persistent bacteremia. MSSA. Blood culture now negative reflecting clearance. 2. Acute endocarditis. [place] aortic valve. Staph aureus. 3. Acute respiratory failure. 4. Bilateral lung infiltrates, probably secondary to septic emboli. PNA Staph aureus. Enterobacter PNA. 5. 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 6. History of IV drug abuse. Unknown current use status. 7. Antibiotic allergies. 8. Recent drug rash. Medicines in weeks before admission: Clindamycin, Doxycycline, acyclovir, Adderral, Tylenol, prednisone, omeprazole, Ibuprofen. 9. Repeat blood culture with staph coag negative is most likely contaminant. 10. Low grade fever. WBC elevated. ? urine vs lung. RECOMMENDATIONS: 1. Continue Nafcillin 2 grams Q 4 hours. 2. Continue Levaquin for Pneumonia due to Enterobacter. 3. Valve replacement when feasible. 4. Monitor new cultures. 5. Monitor WBC. 6. Monitor clinical status. Discussed with mary grace and answered her questions. Nemesio Jackson MD Oct 22, 2016 12:05
--- NOTE | 2016-10-22 13:55 | HHI.HCPN ---
Reason for visit a. To assist with evaluation and management of symptoms including:dyspnea, encephalopathy, agitation, constipation b. To assist medical decision maker(s) with: better understanding of current medical conditions; weighing benefits/burdens of medical treatment options; making medical treatment decisions. (Sandy Liu) Subjective/Interval History s/p trach , PEG last week. CTS has evaluated for aortic valve, no interventions at this time needs at least 4 weeks on antibiotics, at least 6 weeks out from brain hemorrhage before could consider surgical intervention. Repeat CT brain stable. Lightening of sedation for neuro assessments as patient tolerates. Reported he is intermittently following commands. WBC 12.5. Culture from 10/16 positive staph contaminant. Repeat cultures sent 10/21, negative 1 day. Still on Levaquin, nafcillin. Febrile, MAXIMUM TEMPERATURE 101.3. CXR today with slight pulmonary edema. Tolerating T piece during the day with rest on pressure support on the ventilator at night. Having bowel movements, tolerating tube feeding. Patient seen in room no visitors present. Dual visit with Nora Cervantes [employer] palliative professor of social work. Patient is awake /eyes open. Appears to track examiner consistently. Moving all 4 extremities spontaneously grasps when object or hand placed in his however I cannot get him to grasp to my command. Does stick out tongue slightly with command to do so with slight delay. Moving lower extremities however does not follow specific commands such as moving her toes etc. Moves all 4 extremities spontaneously. Does not nod to any questions. D/w primary RN, critical care Dr Rodriguez. . Family/friend interactions mother Felicita arrived after exam, updated her on current assessments, neuro, tx in place, recent diagnostics. They remain optimistic Silm will cont to improve. They feel Slim has been trying to talk to them and seems more interactive when they're present. All questions answered. She is appreciative of ICU care, staff and ongoing updates from palliative. She will share information w sister Anay. . (Sandy Liu) Advance Directives Living Will: Never completed Health Care Surrogate: Never completed Durable Power of Steward/Stewardess Room: Completed, but not made available (mother reports has POA, not clear if this includes medical decision making (SW has reviewed, this does NOT include healthcare decision making) ) (Sandy Liu) Objective Vital Signs Date Time Temp Pulse Resp B/P Pulse Ox O2 Delivery O2 Flow Rate FiO2 10/22/16 10:00 121 10/22/16 09:35 40 10/22/16 09:35 100 T-piece 6.00 40 10/22/16 08:30 99 40 10/22/16 08:00 100.0 120 20 116/57 98 10/22/16 08:00 120 10/22/16 08:00 40 10/22/16 06:00 101 10/22/16 04:43 99 40 10/22/16 04:00 117 10/22/16 04:00 101.3 117 14 117/56 100 10/22/16 04:00 100 100 10/22/16 04:00 40 10/22/16 02:00 98 10/22/16 00:04 100 40 10/22/16 00:00 40 10/22/16 00:00 96 10/22/16 00:00 100.6 98 14 109/52 100 10/21/16 22:00 94 10/21/16 20:48 115 10/21/16 20:44 100 40 10/21/16 20:00 100.0 140 16 108/55 100 10/21/16 20:00 40 10/21/16 18:00 114 10/21/16 17:03 98 40 10/21/16 16:00 100.2 102 24 123/58 98 10/21/16 16:00 40 10/21/16 16:00 102 10/21/16 14:00 102 Intake & Output 10/22/16 10/22/16 06:59 18:59 Intake Total 1951 ml Output Total 2550 ml Balance -599 ml Intake IV Total 1100 ml Tube Feeding 351 ml Other 500 ml Output Urine Total 1350 ml Stool Total 1200 ml # Bowel Movements 3 Physical Exam CONSTITUTIONAL/GENERAL: This is an adequately nourished patient, awake TUBES/LINES/DRAINS: central line.trach, PEG, carrera catheter , SCDs left radial arterial line SKIN: No jaundice, or lesions. Embolic purpuric lesions on LT great toe. + Sloughing/peeling of skin to tips of fingers, toes CARDIOVASCULAR: regular rhythm without murmur. No peripheral edema, periph pulses palpable RESPIRATORY/CHEST: Symmetric, unlabored respirations on Tpiece. Course air movement throughout. GASTROINTESTINAL: Abdomen soft,flat, nondistended. No palpable masses. No apparent tenderness to exam. TF infusing. BS normoactive. GENITOURINARY: Without palpable bladder distension. Carrera catheter in place clear yellow urine. NEUROLOGICAL: sedated on mech vent.(Fentanyl) appears calm. Awake, tracks examiner. Pupils are 3 mm, equal and reactive to light. Moving all 4 strongly spontaneously. Grasps with both hands spontaneously though not necessarily to command. Moves both feet spontaneously does not wiggle toes specifically command. Does protrude tongue when requested to do so, with some delay, slowly. Does not nod to any questions. PSYCHIATRIC: -- limited assess due to condition/sedation--no apparent anxiety/ agitation . . (Sandy Liu) Diagnostic Tests Laboratory Laboratory Tests Test 10/19/16 10/19/16 10/20/16 10/20/16 14:14 22:38 03:30 04:00 Sodium Level 158 MEQ/L 157 MEQ/L 159 MEQ/L (136-145) (136-145) (136-145) Potassium Level 2.8 MEQ/L (3.5-5.1) Chloride Level 122 MEQ/L (98-107) Carbon Dioxide Level 30.7 MEQ/L (21.0-32.0) Anion Gap 6 MEQ/L (5-15) Blood Urea Nitrogen 31 MG/DL (7-18) Creatinine 0.81 MG/DL (0.60-1.30) Estimat Glomerular Filtration 115 ML/MIN Rate (>89) Random Glucose 146 MG/DL (74-106) Calcium Level 8.5 MG/DL (8.5-10.1) Magnesium Level 2.4 MG/DL (1.5-2.5) Total Bilirubin 0.7 MG/DL (0.2-1.0) Aspartate Amino Transf 25 U/L (15-37) (AST/SGOT) Alanine Aminotransferase 33 U/L (12-78) (ALT/SGPT) Alkaline Phosphatase 117 U/L (45-117) Total Protein 7.3 GM/DL (6.4-8.2) Albumin 1.9 GM/DL (3.4-5.0) White Blood Count 11.7 TH/MM3 (4.0-11.0) Red Blood Count 2.80 MIL/MM3 (4.50-5.90) Hemoglobin 8.0 GM/DL (13.0-17.0) Hematocrit 24.3 % (39.0-51.0) Mean Corpuscular Volume 86.7 FL (80.0-100.0) Mean Corpuscular Hemoglobin 28.6 PG (27.0-34.0) Mean Corpuscular Hemoglobin 33.0 % Concent (32.0-36.0) Red Cell Distribution Width 14.1 % (11.6-17.2) Platelet Count 301 TH/MM3 (150-450) Mean Platelet Volume 7.4 FL (7.0-11.0) Neutrophils (%) (Auto) 80.1 % (16.0-70.0) Lymphocytes (%) (Auto) 14.0 % (9.0-44.0) Monocytes (%) (Auto) 5.0 % (0.0-8.0) Eosinophils (%) (Auto) 0.5 % (0.0-4.0) Basophils (%) (Auto) 0.4 % (0.0-2.0) Neutrophils # (Auto) 9.4 TH/MM3 (1.8-7.7) Lymphocytes # (Auto) 1.6 TH/MM3 (1.0-4.8) Monocytes # (Auto) 0.6 TH/MM3 (0-0.9) Eosinophils # (Auto) 0.1 TH/MM3 (0-0.4) Basophils # (Auto) 0.0 TH/MM3 (0-0.2) CBC Comment DIFF FINAL Differential Comment Test 10/20/16 10/20/16 10/20/16 10/20/16 09:03 13:19 16:00 21:00 Sodium Level 159 MEQ/L 157 MEQ/L 158 MEQ/L (136-145) (136-145) (136-145) Potassium Level 3.3 MEQ/L (3.5-5.1) Test 10/21/16 10/21/16 10/21/16 10/21/16 01:07 04:27 05:15 17:50 Potassium Level 3.5 MEQ/L 3.9 MEQ/L (3.5-5.1) (3.5-5.1) White Blood Count 14.7 TH/MM3 (4.0-11.0) Red Blood Count 2.85 MIL/MM3 (4.50-5.90) Hemoglobin 8.4 GM/DL (13.0-17.0) Hematocrit 25.0 % (39.0-51.0) Mean Corpuscular Volume 87.5 FL (80.0-100.0) Mean Corpuscular Hemoglobin 29.3 PG (27.0-34.0) Mean Corpuscular Hemoglobin 33.5 % Concent (32.0-36.0) Red Cell Distribution Width 15.0 % (11.6-17.2) Platelet Count 331 TH/MM3 (150-450) Mean Platelet Volume 7.4 FL (7.0-11.0) Neutrophils (%) (Auto) 76.0 % (16.0-70.0) Lymphocytes (%) (Auto) 16.9 % (9.0-44.0) Monocytes (%) (Auto) 4.8 % (0.0-8.0) Eosinophils (%) (Auto) 1.3 % (0.0-4.0) Basophils (%) (Auto) 1.0 % (0.0-2.0) Neutrophils # (Auto) 11.2 TH/MM3 (1.8-7.7) Lymphocytes # (Auto) 2.5 TH/MM3 (1.0-4.8) Monocytes # (Auto) 0.7 TH/MM3 (0-0.9) Eosinophils # (Auto) 0.2 TH/MM3 (0-0.4) Basophils # (Auto) 0.1 TH/MM3 (0-0.2) CBC Comment DIFF FINAL Differential Comment Sodium Level 157 MEQ/L (136-145) Chloride Level 122 MEQ/L (98-107) Carbon Dioxide Level 29.2 MEQ/L (21.0-32.0) Anion Gap 6 MEQ/L (5-15) Blood Urea Nitrogen 33 MG/DL (7-18) Creatinine 0.89 MG/DL (0.60-1.30) Estimat Glomerular Filtration 103 ML/MIN Rate (>89) Random Glucose 121 MG/DL (74-106) Calcium Level 8.8 MG/DL (8.5-10.1) Phosphorus Level 3.0 MG/DL (2.5-4.9) Magnesium Level 2.4 MG/DL (1.5-2.5) Total Bilirubin 0.8 MG/DL (0.2-1.0) Aspartate Amino Transf 24 U/L (15-37) (AST/SGOT) Alanine Aminotransferase 26 U/L (12-78) (ALT/SGPT) Alkaline Phosphatase 98 U/L (45-117) Total Protein 7.1 GM/DL (6.4-8.2) Albumin 1.9 GM/DL (3.4-5.0) Blood Gas Puncture Site RT RADIAL Blood Gas Patient Temperature 98.6 Blood Gas HCO3 27 mmol/L (22-26) Blood Gas Base Excess 2.8 mmol/L (-2-2) Blood Gas Oxygen Saturation 97 % (90-100) Arterial Blood pH 7.41 (7.380-7.420) Arterial Blood Partial 44 mmHg (38-42) Pressure CO2 Arterial Blood Partial 160 mmHg Pressure O2 (61-120) Arterial Blood Oxygen Content 11.7 Vol % (12.0-20.0) Arterial Blood 1.2 % (0-4) Carboxyhemoglobin Arterial Blood Methemoglobin 1.0 % (0-2) Blood Gas Hemoglobin 8.3 G/DL (12.0-16.0) Oxygen Delivery Device VENTILATOR Blood Gas Ventilator Setting PRVC/AC Blood Gas Inspired Oxygen 40 % Urine Color RED (YELLW/STRAW) Urine Turbidity HAZY (CLEAR) Urine pH 6.5 (5.0-8.5) Urine Specific Tracy 1.020 (1.002-1.035) Urine Protein 100 mg/dL (NEG-TRACE) Urine Glucose (UA) NEG mg/dL (NEG) Urine Ketones NEG mg/dL (NEG) Urine Occult Blood LARGE (NEG) Urine Nitrite NEG (NEG) Urine Bilirubin NEG (NEG) Urine Urobilinogen 2.0 MG/DL (LESS THAN 2.0) Urine Leukocyte Esterase MOD (NEG) Urine RBC /hpf (0-3) Urine WBC 44 /hpf (0-5) Urine Bacteria OCC /hpf (NONE) Urine Mucus FEW /lpf (OCC) Urine Yeast (Budding) RARE (NONE) Microscopic Urinalysis Comment CATH-CULTURE IND Test 10/22/16 10/22/16 03:50 05:50 White Blood Count 12.5 TH/MM3 (4.0-11.0) Red Blood Count 2.69 MIL/MM3 (4.50-5.90) Hemoglobin 7.7 GM/DL (13.0-17.0) Hematocrit 23.4 % (39.0-51.0) Mean Corpuscular Volume 87.2 FL (80.0-100.0) Mean Corpuscular Hemoglobin 28.6 PG (27.0-34.0) Mean Corpuscular Hemoglobin 32.8 % Concent (32.0-36.0) Red Cell Distribution Width 14.8 % (11.6-17.2) Platelet Count 260 TH/MM3 (150-450) Mean Platelet Volume 8.0 FL (7.0-11.0) Neutrophils (%) (Auto) 78.7 % (16.0-70.0) Lymphocytes (%) (Auto) 15.2 % (9.0-44.0) Monocytes (%) (Auto) 4.4 % (0.0-8.0) Eosinophils (%) (Auto) 1.2 % (0.0-4.0) Basophils (%) (Auto) 0.5 % (0.0-2.0) Neutrophils # (Auto) 9.8 TH/MM3 (1.8-7.7) Lymphocytes # (Auto) 1.9 TH/MM3 (1.0-4.8) Monocytes # (Auto) 0.6 TH/MM3 (0-0.9) Eosinophils # (Auto) 0.2 TH/MM3 (0-0.4) Basophils # (Auto) 0.1 TH/MM3 (0-0.2) CBC Comment DIFF FINAL Differential Comment Sodium Level 154 MEQ/L (136-145) Potassium Level 3.3 MEQ/L (3.5-5.1) Chloride Level 120 MEQ/L (98-107) Carbon Dioxide Level 27.9 MEQ/L (21.0-32.0) Anion Gap 6 MEQ/L (5-15) Blood Urea Nitrogen 32 MG/DL (7-18) Creatinine 0.99 MG/DL (0.60-1.30) Estimat Glomerular Filtration 91 ML/MIN (>89) Rate Random Glucose 117 MG/DL (74-106) Calcium Level 8.4 MG/DL (8.5-10.1) Phosphorus Level 3.0 MG/DL (2.5-4.9) Magnesium Level 2.2 MG/DL (1.5-2.5) Total Bilirubin 0.6 MG/DL (0.2-1.0) Aspartate Amino Transf 19 U/L (15-37) (AST/SGOT) Alanine Aminotransferase 21 U/L (12-78) (ALT/SGPT) Alkaline Phosphatase 78 U/L (45-117) Total Protein 6.4 GM/DL (6.4-8.2) Albumin 1.8 GM/DL (3.4-5.0) Blood Gas Puncture Site RT RADIAL Blood Gas Patient Temperature 98.6 Blood Gas HCO3 25 mmol/L (22-26) Blood Gas Base Excess 1.3 mmol/L (-2-2) Blood Gas Oxygen Saturation 97 % (90-100) Arterial Blood pH 7.42 (7.380-7.420) Arterial Blood Partial 41 mmHg (38-42) Pressure CO2 Arterial Blood Partial 178 mmHg Pressure O2 (61-120) Arterial Blood Oxygen Content 11.2 Vol % (12.0-20.0) Arterial Blood 1.1 % (0-4) Carboxyhemoglobin Arterial Blood Methemoglobin 1.0 % (0-2) Blood Gas Hemoglobin 7.9 G/DL (12.0-16.0) Oxygen Delivery Device VENTILATOR Blood Gas Ventilator Setting PRVC14/550/1.0/5 Blood Gas Inspired Oxygen 40 % (Sandy Liu) Result Diagram: 10/22/16 0350 10/22/16 0350 Microbiology Microbiology Date/Time Procedure Status Source Growth 10/21/16 17:50 Gram Stain - Final Resulted Sputum Endotracheal 10/21/16 17:50 Sputum Culture Resulted Sputum Endotracheal Pending 10/21/16 17:50 Urine Culture - Preliminary Resulted Urine Catheterized Urine IMMATURE GROWTH - REINCUBATE 10/21/16 19:15 Aerobic Blood Culture - Preliminary Resulted Blood Peripheral NO GROWTH IN 1 DAY 10/21/16 19:15 Anaerobic Blood Culture - Preliminary Resulted Blood Peripheral NO GROWTH IN 1 DAY 10/21/16 19:25 Aerobic Blood Culture - Preliminary Resulted Blood Peripheral NO GROWTH IN 1 DAY 10/21/16 19:25 Anaerobic Blood Culture - Preliminary Resulted Blood Peripheral NO GROWTH IN 1 DAY Imaging Last Impressions Head CT 10/22/16 0600 Signed Impressions: Service Date/Time: Saturday, October 22, 2016 04:14 - CONCLUSION: There is slight improvement in the degree of hemorrhage within the right temporal lobe, however surrounding vasogenic edema has not changed and the rest of the examination has not significantly changed. Angela Basilio MD Chest X-Ray 10/22/16 0600 Signed Impressions: Service Date/Time: Saturday, October 22, 2016 03:33 - CONCLUSION: Slight worsening of pulmonary edema. Angela Basilio MD Brain MRI 10/18/16 0600 Signed Impressions: Service Date/Time: October 11:38 - CONCLUSION: 1. Grossly abnormal examination demonstrating large areas of edema with abnormal contrast enhancement in both hemispheres. There are focal rim enhancing fluid collection seen in the left posterior parietal cortex, centrally and the high left parietal cortex and in the right posterior temporal cortex. Findings would be concerning for cerebritis and abscess. 2. 7.5 mm of [id number] falcine shift. 3. Focal area of abnormal enhancement and edema within the right side of the cerebellum again concerning for cerebritis/abscess in this patient with known history of endocarditis. 4. This patient's examination has significantly worsened when compared to previous dated 09/30/16. Cody Coello MD Renal Ultrasound 09/30/16 0000 Signed Impressions: Service Date/Time: Friday, September 30, 2016 18:45 - CONCLUSION: Ultrasound appearance of the kidneys within normal limits. Carrera catheter in the urinary bladder. Nonspecific splenomegaly incidentally noted. Michael Freitas MD Head Magnetic Resonance Angiography 09/30/16 0000 Signed Impressions: Service Date/Time: Friday, September 30, 2016 17:42 - CONCLUSION: No occlusion, aneurysm or other acute intracranial vascular abnormality demonstrated. Michael Freitas MD Procedures 09/30left subclavian central line, left radial arterial line 10/12-right subclavian central line 10/15-tracheostomy, bronchoscopy (Sandy Liu) Assessment and Plan Disease Oriented Problem List: (1) Intracranial hemorrhage (2) Sepsis (3) Elevated troponin (4) Subarachnoid hemorrhage (5) Cerebral edema (6) Metabolic encephalopathy (7) Acute respiratory failure with hypoxia (8) Septic shock due to Staphylococcus aureus (9) Rash and nonspecific skin eruption (10) Substance abuse Symptom Scale: (1) Dyspnea 0-10 Scale: Unable to quantify (2) Encephalopathy 0-10 Scale: Unable to quantify (3) Agitation 0-10 Scale: Unable to quantify (4) Constipation 0-10 Scale: Unable to quantify Pertinent Non-Medical Issues Psychosocial:originally from [place], lived in [place] since . HS education. Was incarcerated and then in drug rehabilitation in [facility]. 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 Father (parents ) lived in [place] with support from family there. Supported by local friends, coworkers, apartment landlord. Spiritual:believes in God, no particular affiliation. would want ongoing feltmaker and weigher support. Legal: Patient is not able to participate in decision-making due to clinical condition. He is not . Per [place] statutes his parents would be legal decision makers, mother is serving as primary supported by his sister and father. She reports she has POA paperwork. Ethical issues impacting care: Important Contacts mother Felicita Roberts [phone] (HCP) sister Elizabeth Rios [phone] father Pradeep Rios [phone] . 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 Severe aortic regurgitation and possible leaflet perforation, CV consult is pending. He additionally developed small area of brain hemorrhage. He remains critically ill. Possible he can recover with prolonged resuscitation , prolonged ICU course. Remains very high risk for further complications and setbacks though possible he can survive this initial injury/illness. Code Status: Full Code Plan * Legal decision maker: Patient is not able to participate in decision-making due to clinical condition. He is not . Per [place] statutes his parents would be legal decision makers, mother is serving as primary supported by his sister and father. She reports she has POA paperwork. (palliative SW reviewed and indicates that it does not include medical decision-making) [ patient sister Anay providing support to patient mother and assists her with decision making.] * Goals: Ongoing meetings with patient family, daily or as needed. Patient sister appears to have a reasonable understanding of conditions, prognosis. Patient mother appears to have a very simple understanding of conditions and prognosis. Father also seems to have a very simple understanding of conditions and prognosis. Goals remain aggressive, family elected to proceed with tracheostomy and PEG (done last week) Patient's mother is hoping for a miracle and wants to continue whatever measures available to help patient recover. They are open to ongoing to conversations as clinical course evolves. * CODE STATUS: full SYMPTOMS: * Dyspnea- intubated for AMS. Status post tracheostomy. CXR w/ slight luminary edema. +Enterobacter bronchial washing,on levaquin. Today breathing comfortably on T piece. T piece during the day, rest on pressure support at night. * Agitation- hx substance abuse; hx ADD, on adderall.+embolic CVA,+hemorrhage. Has required significant sedatives during hospital course. Some improvement now on fentanyl.(250 mics per hour) More awake and with less ongoing agitation. * Encephalopathy- multifactorial-- +sepsis, embolic CVA, + hemorrhage, hx substance abuse, EEG neg seizure ; repeat CT brain 10/16, MRI 10/17. Neurosurgery continues to follow, notes patient has approximately 8mm of midline shift on the most recent MRI, but his mental status is improving. Continue supportive treatment, follow-up CT scans, neuro assessments. Most recent CT brain 10/22 appear stable no new findings. Neuro status slowly improving tolerating slight weaning of sedatives. * Constipation -resolved. Now having frequent loose BMs, after several doses of laxatives. +colace scheduled. other bowel pharmaceuticals are prn. Palliative care will continue to follow during hospital course as condition evolves, to assist patient/decision-maker with understanding of medical conditions, weighing benefits/burdens of treatment options, for clarification of goals of treatment. Additionally will assist with any symptoms of palliative concern. . (Sandy Liu) Attestation To help prompt me to consider important information that might be impacting today's encounter and assessment, information from prior notes written by myself or my colleagues may have been "brought forward" into today's note. My signature on this note, however, is an attestation that I personally performed the exam, history, and/or decision-making noted today, and, unless otherwise indicated, the interactions with patient, family, and staff as well as the review of records all occurred today. I also attest that the listed assessment and stated plan reflect my best clinical judgment today based on the combination of historical information, prior notes, and today's exam/ interactions. When time spent is documented, it refers only to time spent today by the signer, or if indicated, combined time spent today by collaborating physician/nurse practitioner. (Sandy Liu) Collaborating MD Comments Discussed with CHAPIN, agree with assessment and plan (Jose Linares MD) Sandy Liu Oct 22, 2016 13:55 Jose Linares MD Oct 24, 2016 13:49
[2016-10-22] MEDS ORDERED: LORazepam 2 MG/ML VIAL IV ONE (18:00)
[2016-10-22] MEDS: MELATONIN 5 MG TAB PO SCH (19:46)
[2016-10-23] VITALS (19 sets, daily range): BP systolic 103–123; BP diastolic 50–55; PULSE 90–144; RESP 22–38; TEMP 99.1–103.5; O2SAT 89–97
[2016-10-23] MEDS: METHADONE HCL 10 MG/10 ML ORAL SOLUTION PO SCH ×5 (02:20→20:08)
[2016-10-23] MEDS: HALOPERIDOL LACTATE 5 MG/ML AMP IV SCH ×4 (02:20→19:12)
[2016-10-23] MEDS: ACETAMINOPHEN 325 MG TAB PO PRN ×2 (02:44→19:19)
[2016-10-23] MEDS: CHLORHEXIDINE GLUCONATE 2 % 1 PACK (2 CLOTHS) TOP SCH (02:56)
[2016-10-23] MEDS: NAFCILLIN INJ 2,000 MG in SODIUM CHLORIDE 0.9% INJ 100 ML IV SCH ×5 (03:10→20:07)
[2016-10-23 03:35] LABS: AUTOMATED NEUTROPHIL # 10.8 TH/MM3 (1.8-7.7); BASOPHIL % 0.1 % (0.0-2.0); EOSINOPHIL # 0.2 TH/MM3 (0-0.4); EOSINOPHIL % 1.7 % (0.0-4.0); LYMPHOCYTE # 2.1 TH/MM3 (1.0-4.8); MEAN CELL VOLUME 86.7 FL (80.0-100.0); MEAN CORPUSCULAR HEMOGLOBIN 29.2 PG (27.0-34.0); MEAN CORPUSCULAR HGB CONC 33.7 % (32.0-36.0); MONO % 4.3 % (0.0-8.0); NEUT % 78.9 % (16.0-70.0); PLATELET COUNT 218 TH/MM3 (150-450); RED BLOOD COUNT 2.37 MIL/MM3 (4.50-5.90); RED CELL DISTRIBUTION WIDTH 14.5 % (11.6-17.2); WHITE BLOOD COUNT 13.7 TH/MM3 (4.0-11.0)
[2016-10-23 03:41] LABS: ALKALINE PHOSPHATASE 81 U/L (45-117); ALT (GPT) 19 U/L (12-78); ANION GAP 7 MEQ/L (5-15); AST (GOT) 23 U/L (15-37); BICARBONATE 27.6 MEQ/L (21.0-32.0); BLOOD UREA NITROGEN 26 MG/DL (7-18); CHLORIDE 121 MEQ/L (98-107); GLOMERULAR FILTRATION RATE 97 ML/MIN (>89); TOTAL BILIRUBIN ADULT 0.5 MG/DL (0.2-1.0)
[2016-10-23 03:44] LABS: SODIUM (NA) 156 MEQ/L (136-145)
[2016-10-23] MEDS: POTASSIUM CHLOR 40 MEQ PREMIX 100 ML IV PRN ×2 (03:46→05:16)
[2016-10-23 03:51] LABS: HEMATOCRIT 20.6 % (39.0-51.0); HEMO FLAGS DIFF FINAL
[2016-10-23] MEDS: METOPROLOL TARTRATE 25 MG TAB PO SCH ×3 (05:41→20:07)
[2016-10-23] MEDS: LORazepam 1 MG TAB PO SCH ×3 (05:41→20:07)
[2016-10-23] MEDS: LORazepam 2 MG/ML VIAL IV PUSH PRN ×3 (05:58→19:17)
[2016-10-23] MEDS: DOCUSATE SODIUM 100 MG/10 ML UDC G-TUBE SCH ×2 (08:00→20:00)
[2016-10-23] MEDS: CHLORHEXIDINE 0.12% (ORAL KIT) 15 ML CUP MT SCH ×2 (08:00→20:00)
[2016-10-23] MEDS: SODIUM CHLORIDE 0.9% FLUSH 10 ML FLUSH IV FLUSH SCH ×2 (09:00→20:08)
[2016-10-23] MEDS: ARTIFICIAL TEARS OPTH SOLN 15 ML BTL EACH EYE SCH ×3 (09:00→18:00)
[2016-10-23] MEDS: BENEPROTEIN POWDER 1 PACK G-TUBE SCH ×3 (09:00→18:00)
[2016-10-23] MEDS: levETIRAcetam 500 MG/5 ML UDC NG SCH ×2 (09:21→20:07)
[2016-10-23] MEDS: LEVOFLOXACIN 750 MG PREMIX INJ 150 ML IV SCH (09:22)
[2016-10-23] MEDS: PANTOPRAZOLE SODIUM 40 MG VIAL IV SCH (09:22)
--- NOTE | 2016-10-23 09:33 | HHI.NSPN ---
(Elliott Fragoso) History Chief Complaint: Trached & sedated (Elliott Fragoso) Interval History 10/01: The HPI is obtained from a review of the EMR due to the patient's altered mental status and intubation. This is a 26-year-old male who was found by his landlord on with altered mental status and called EMS. Upon arrival of EMS the patient had a GCS of 10. In the emergency department the patient was hypotensive and tachycardiac. He was emergently intubated for airway protection. His CT brain demonstrated significant areas of infarction to the right frontal, temporal and cerebellar regions as well as a small subarachnoid haemorrhage to the superior right parietal region. There was a 3 mm midline shift as well as effacement on the right. The patient's laboratory data is significant for white blood cell count of 19,000, haemoglobin of 9.9, lactate of 3.7, creatinine 1.69, CK 372, troponin of 11.9. His urine drug screen is positive for opiates and amphetamines. He was subsequently admitted to the [facility] for further management and monitoring. Per EMS and ED reports, patient was seen approximately 10 days prior to admission by an unknown physician in the clinic and given antibiotic for fever. After taking the antibiotic, the patient had a new red rash on his hands and healing on his feet. He he was seen in the emergency department 2 days prior to admission for low-grade fever and congestion, generalized weakness, lightheadedness. At that time she was given prescription for prednisone 40 mg daily for 5 days. The patient's landlord apparently found the patient today with altered mental status and called EMS. When EMS arrived, his GCS was 10. There is reports that the patient has a history of substance abuse and was recently in rehabilitation. The patient's roommate confirmed to the Dictating Machine Typist that the patient had recently been in rehabilitation due to a history of substance abuse. The roommate did not think he was doing any illicit drugs recently. 10/02: The patient remains intubated & sedated. He withdraws to painful stimuli to the extremities. 10/03: The patient is sedated with propofol & fentanyl. Nursing reports that he does move the RUE mostly but will move the BLE when the sedation is off. Nursing reported no movement of the LUE. When EEG was at the bedside with the sedation down the patient became quite agitated and was kicking out. 10/04: The patient remains sedated. Nursing states he continues to be agitated when the sedation is off. A CT brain yesterday demonstrated multiple evolving infarcts. 10/05: The patient is still sedated with propofol & fentanyl. He does not appear to be responding to verbal commands. 10/09: The patient remains sedated with propofol & fentanyl. He did open his right eye on his own as Nursing & this practitioner were talking in the room. He did withdraw on the left side to noxious stimuli. 10/11: The patient had received Nimbex prior to being seen due to fighting the vent. When seen the patient was becoming tachypneic and fighting against the vent again. His mother did say she was told he had a good night and yesterday was moving all extremities although the left upper was weaker. His CXR this morning was suggestive of infiltrates in layering effusions. The Dictating Machine Typist felt the patient was in flash pulmonary edema. 10/16: The patient is trached and sedated when seen this morning. He did have a CT brain this morning which demonstrated increased edema and new haemorrhage to the right temporal lobe. No drainable collection was identified. A small stroke with edema was also noted to the medial left parietal lobe. The lower left parietal lesion and edema had improved. He had trace movement of the LUE & BLE to noxious stimuli. 10/18: The patient is trached and sedated. He does withdraw to varying degrees to noxious stimuli and does open his eyes as well. 10/23: The patient remains trached. He is awake, alert and appears agitated. He is attempting to sit up in the bed and has soft wrist restraints on. Blood is noted on the counter in his room when seen. His haemoglobin was 6.9 this morning. (Elliott Fragoso) System Review Comments Unable to obtain ROS due to patient's mental status & being trached. (Elliott Fragoso) Exam Results Vital Signs Date Time Temp Pulse Resp B/P Pulse Ox O2 Delivery O2 Flow Rate FiO2 10/23/16 06:15 102.7 10/23/16 06:10 95 T-piece 5.00 40 10/23/16 06:00 114 10/23/16 04:00 27 113/50 Intake and Output 10/22/16 10/22/16 10/23/16 08:00 16:00 00:00 Intake Total 1027 ml 1473 ml 570 ml Output Total 1300 ml 1400 ml 1550 ml Balance -273 ml 73 ml -980 ml (Elliott Fragoso) Physical Examination GENERAL: Patient awake and agitated, attempting to sit up in the bed. HEENT: Normocephalic, atraumatic. PERRL 5 mm bilaterally. Oral membranes tacky. Trached. CHEST: CTAB w/o W/R/R, equal excursion, nonlaboured, trached and on T-piece. CARDIOVASCULAR: S1S2 w/regular but fast rate w/o M/G/R, radial & pedal pulses 2 + bilaterally, cap refill < 2 sec. Monitor is sinus tachycardia w/o any ectopy noted. ABDOMEN: Abdomen soft, nontender, positive bowel sounds, PEG tub w/enteral feeds. MUSCULOSKELETAL: He is moving all extremities to command. No deformity or clubbing noted. INTEGUMENTARY: The tip of the right great toe with evolving necrotic area. Continued desquamation of feet and hands. NEUROLOGICAL: Awake & alert but agitated this morning. BUTCHER spontaneously, follows commands but at times needs coaxing. PERRL 5 mm bilaterally. (Elliott Fragoso) Lab, Micro, Other Results Allergies Coded Allergies Type Severity Reaction Last Updated Verified Hydrocodone Allergy Unknown Nausea/Vomiting 10/04/16 Yes Sulfa Allergy Unknown 09/30/16 Yes Toradol Allergy Unknown 09/30/16 Yes Recent Impressions Head CT 10/22/16 06 Signed Impressions: Service Date/Time: Saturday, October 22, 2016 04:14 - CONCLUSION: There is slight improvement in the degree of hemorrhage within the right temporal lobe, however surrounding vasogenic edema has not changed and the rest of the examination has not significantly changed. Angela Basilio MD Chest X-Ray 10/22/16599 Signed Impressions: Service Date/Time: Saturday, October 22, 2016 03:33 - CONCLUSION: Slight worsening of pulmonary edema. Angela Basilio MD Chest X-Ray 10/21/16 0600 Signed Impressions: Service Date/Time: Friday, October 21, 2016 04:04 - CONCLUSION: No significant change. The bibasilar pulmonary opacities are stable in appearance. Russell Mckeon MD ////// 06:00 18:00 06:00 18:00 06:00 18:00 Intake Total 2646 ml 1734 ml 1951 ml 1473 ml 570 ml 987 ml Output Total 1520 ml 1100 ml 2550 ml 1400 ml 1550 ml 850 ml Balance 1126 ml 634 ml -599 ml 73 ml -980 ml 137 ml Intake IV Total 1427 ml 784 ml 1100 ml 950 ml 348 ml 502 ml Tube Feeding 479 ml 250 ml 351 ml 323 ml 222 ml 235 ml Packed Cells 250 ml Tube Irrigant 740 ml Other 700 ml 500 ml 200 ml Output Urine Total 1520 ml 1100 ml 1350 ml 1200 ml 750 ml 750 ml Stool Total 1200 ml 200 ml 800 ml 100 ml # Bowel Movements 3 0 3 Laboratory Tests Test 10/20/16 10/20/16 10/20/16 10/21/16 13:19 16:00 21:00 01:07 Potassium Level 3.3 MEQ/L 3.5 MEQ/L Sodium Level 157 MEQ/L 158 MEQ/L Test 10/21/16 10/21/16 10/21/16 10/22/16 04:27 05:15 17:50 03:50 White Blood Count 14.7 TH/MM3 12.5 TH/MM3 Red Blood Count 2.85 MIL/MM3 2.69 MIL/MM3 Hemoglobin 8.4 GM/DL 7.7 GM/DL Hematocrit 25.0 % 23.4 % Mean Corpuscular Volume 87.5 FL 87.2 FL Mean Corpuscular Hemoglobin 29.3 PG 28.6 PG Mean Corpuscular Hemoglobin 33.5 % 32.8 % Concent Red Cell Distribution Width 15.0 % 14.8 % Platelet Count 331 TH/MM3 260 TH/MM3 Mean Platelet Volume 7.4 FL 8.0 FL Neutrophils (%) (Auto) 76.0 % 78.7 % Lymphocytes (%) (Auto) 16.9 % 15.2 % Monocytes (%) (Auto) 4.8 % 4.4 % Eosinophils (%) (Auto) 1.3 % 1.2 % Basophils (%) (Auto) 1.0 % 0.5 % Neutrophils # (Auto) 11.2 TH/MM3 9.8 TH/MM3 Lymphocytes # (Auto) 2.5 TH/MM3 1.9 TH/MM3 Monocytes # (Auto) 0.7 TH/MM3 0.6 TH/MM3 Eosinophils # (Auto) 0.2 TH/MM3 0.2 TH/MM3 Basophils # (Auto) 0.1 TH/MM3 0.1 TH/MM3 CBC Comment DIFF FINAL DIFF FINAL Differential Comment Sodium Level 157 MEQ/L 154 MEQ/L Potassium Level 3.9 MEQ/L 3.3 MEQ/L Chloride Level 122 MEQ/L 120 MEQ/L Carbon Dioxide Level 29.2 MEQ/L 27.9 MEQ/L Anion Gap 6 MEQ/L 6 MEQ/L Blood Urea Nitrogen 33 MG/DL 32 MG/DL Creatinine 0.89 MG/DL 0.99 MG/DL Estimat Glomerular Filtration 103 ML/MIN 91 ML/MIN Rate Random Glucose 121 MG/DL 117 MG/DL Calcium Level 8.8 MG/DL 8.4 MG/DL Phosphorus Level 3.0 MG/DL 3.0 MG/DL Magnesium Level 2.4 MG/DL 2.2 MG/DL Total Bilirubin 0.8 MG/DL 0.6 MG/DL Aspartate Amino Transf 24 U/L 19 U/L (AST/SGOT) Alanine Aminotransferase 26 U/L 21 U/L (ALT/SGPT) Alkaline Phosphatase 98 U/L 78 U/L Total Protein 7.1 GM/DL 6.4 GM/DL Albumin 1.9 GM/DL 1.8 GM/DL Blood Gas Puncture Site RT RADIAL Blood Gas Patient Temperature 98.6 Blood Gas HCO3 27 mmol/L Blood Gas Base Excess 2.8 mmol/L Blood Gas Oxygen Saturation 97 % Arterial Blood pH 7.41 Arterial Blood Partial 44 mmHg Pressure CO2 Arterial Blood Partial 160 mmHg Pressure O2 Arterial Blood Oxygen Content 11.7 Vol % Arterial Blood 1.2 % Carboxyhemoglobin Arterial Blood Methemoglobin 1.0 % Blood Gas Hemoglobin 8.3 G/DL Oxygen Delivery Device VENTILATOR Blood Gas Ventilator Setting PRVC/AC Blood Gas Inspired Oxygen 40 % Urine Color RED Urine Turbidity HAZY Urine pH 6.5 Urine Specific [place] 1.020 Urine Protein 100 mg/dL Urine Glucose (UA) NEG mg/dL Urine Ketones NEG mg/dL Urine Occult Blood LARGE Urine Nitrite NEG Urine Bilirubin NEG Urine Urobilinogen 2.0 MG/DL Urine Leukocyte Esterase MOD Urine RBC /hpf Urine WBC 44 /hpf Urine Bacteria OCC /hpf Urine Mucus FEW /lpf Urine Yeast (Budding) RARE Microscopic Urinalysis Comment CATH-CULTURE IND Test 10/22/16 10/23/16 10/23/16 05:50 02:45 04:09 Blood Gas Puncture Site RT RADIAL Blood Gas Patient Temperature 98.6 Blood Gas HCO3 25 mmol/L Blood Gas Base Excess 1.3 mmol/L Blood Gas Oxygen Saturation 97 % Arterial Blood pH 7.42 Arterial Blood Partial 41 mmHg Pressure CO2 Arterial Blood Partial 178 mmHg Pressure O2 Arterial Blood Oxygen Content 11.2 Vol % Arterial Blood 1.1 % Carboxyhemoglobin Arterial Blood Methemoglobin 1.0 % Blood Gas Hemoglobin 7.9 G/DL Oxygen Delivery Device VENTILATOR Blood Gas Ventilator Setting PRVC14/550/1.0/5 Blood Gas Inspired Oxygen 40 % White Blood Count 13.7 TH/MM3 Red Blood Count 2.37 MIL/MM3 Hemoglobin 6.9 GM/DL Hematocrit 20.6 % Mean Corpuscular Volume 86.7 FL Mean Corpuscular Hemoglobin 29.2 PG Mean Corpuscular Hemoglobin 33.7 % Concent Red Cell Distribution Width 14.5 % Platelet Count 218 TH/MM3 Mean Platelet Volume 8.2 FL Neutrophils (%) (Auto) 78.9 % Lymphocytes (%) (Auto) 15.0 % Monocytes (%) (Auto) 4.3 % Eosinophils (%) (Auto) 1.7 % Basophils (%) (Auto) 0.1 % Neutrophils # (Auto) 10.8 TH/MM3 Lymphocytes # (Auto) 2.1 TH/MM3 Monocytes # (Auto) 0.6 TH/MM3 Eosinophils # (Auto) 0.2 TH/MM3 Basophils # (Auto) 0.0 TH/MM3 CBC Comment DIFF FINAL Differential Comment Sodium Level 156 MEQ/L Potassium Level 3.0 MEQ/L Chloride Level 121 MEQ/L Carbon Dioxide Level 27.6 MEQ/L Anion Gap 7 MEQ/L Blood Urea Nitrogen 26 MG/DL Creatinine 0.94 MG/DL Estimat Glomerular Filtration 97 ML/MIN Rate Random Glucose 119 MG/DL Calcium Level 8.1 MG/DL Total Bilirubin 0.5 MG/DL Aspartate Amino Transf 23 U/L (AST/SGOT) Alanine Aminotransferase 19 U/L (ALT/SGPT) Alkaline Phosphatase 81 U/L Total Protein 6.1 GM/DL Albumin 1.9 GM/DL Blood Type O NEGATIVE Antibody Screen NEGATIVE Crossmatch Leukocyte-Reduced Red Blood Cells Blood Bank Comment Vital Signs Date Time Temp Pulse Resp B/P Pulse Ox O2 Delivery O2 Flow Rate FiO2 10/23/16 06:15 102.7 10/23/16 06:14 102.7 10/23/16 06:10 95 T-piece 5.00 40 10/23/16 06:00 114 10/23/16 05:30 103.1 10/23/16 05:13 103.3 10/23/16 04:00 103.5 129 27 113/50 93 10/23/16 04:00 129 10/23/16 02:00 117 10/23/16 00:00 100.2 128 26 123/53 97 10/23/16 00:00 128 10/22/16 22:00 117 10/22/16 20:59 98 T-piece 40 10/22/16 20:00 101.7 125 16 107/49 98 10/22/16 20:00 125 10/22/16 19:00 100 T-Piece 7.00 40 10/22/16 18:00 130 10/22/16 16:00 40 10/22/16 16:00 99.1 128 20 118/57 99 10/22/16 16:00 128 10/22/16 14:00 139 10/22/16 12:00 98.8 105 14 93/45 100 10/22/16 12:00 105 10/22/16 12:00 40 10/22/16 10:00 121 10/22/16 09:35 40 10/22/16 09:35 100 T-piece 6.00 40 10/22/16 08:30 99 40 10/22/16 08:00 100.0 120 20 116/57 98 10/22/16 08:00 120 10/22/16 08:00 40 10/22/16 06:00 101 10/22/16 04:43 99 40 10/22/16 04:00 117 10/22/16 04:00 101.3 117 14 117/56 100 10/22/16 04:00 100 100 10/22/16 04:00 40 10/22/16 02:00 98 10/22/16 00:04 100 40 10/22/16 00:00 40 10/22/16 00:00 96 10/22/16 00:00 100.6 98 14 109/52 100 10/21/16 22:00 94 10/21/16 20:48 115 10/21/16 20:44 100 40 10/21/16 20:00 100.0 140 16 108/55 100 10/21/16 20:00 40 10/21/16 18:00 114 10/21/16 17:03 98 40 10/21/16 16:00 100.2 102 24 123/58 98 10/21/16 16:00 40 10/21/16 16:00 102 10/21/16 14:00 102 10/21/16 12:49 100 40 10/21/16 12:00 100.0 107 14 128/57 100 10/21/16 12:00 40 10/21/16 12:00 107 10/21/16 10:00 89 10/21/16 08:51 99 40 10/21/16 08:00 99.7 112 15 129/75 100 10/21/16 08:00 40 10/21/16 08:00 103 10/21/16 06:00 82 10/21/16 04:08 100 40 10/21/16 04:00 40 10/21/16 04:00 100.8 90 14 111/53 100 10/21/16 04:00 90 10/21/16 02:00 93 10/21/16 01:11 100 40 10/21/16 00:00 100.4 106 15 120/56 98 10/21/16 00:00 106 10/21/16 00:00 40 10/20/16 22:00 97 10/20/16 20:29 99 40 10/20/16 20:00 92 10/20/16 20:00 40 10/20/16 20:00 99.5 108 16 128/59 100 10/20/16 18:00 106 10/20/16 16:45 99 40 10/20/16 16:00 99 10/20/16 16:00 99.0 129 16 122/59 95 10/20/16 16:00 40 10/20/16 14:00 120 10/20/16 12:00 100.1 111 12 110/55 96 10/20/16 12:00 40 10/20/16 12:00 111 10/20/16 10:15 100 T-piece 6.00 40 10/20/16 10:00 97 (Elliott Fragoso) Medical Decision Making Impression and Plan Impression: Multiple acute septic CVAs Cerebral edema Small subarachnoid hemorrhage Midline shift, 3 mm Metabolic encephalopathy Septic shock Infective endocarditis CT brain demonstrates slight improvement of right temporal lobe haemorrhage w/o change in vasogenic edema, remainder of exam w/o significant change Patient with slow improvement in neurological function Sodium 156 this morning Anemia, to be transfused Hypokalemia Plan: Stat CT brain for any further decline in neurological status Frequent neuro checks Continue 3% saline & monitor sodium level Critical care management by Dictating Machine Typist Antibiotics per Infectious Disease (Elliott Fragoso) Attending Statement I have personally seen and examined the patient on the date of this note. Pertinent documentation and study results have been reviewed by the undersigned. I have personally developed the treatment plan and performed medical decision making. Agree with findings, exam, and treatment plan as noted above. Discussed with family in the room today. His neurologic exam is stable over the past few days. Continue to monitor sodium closely MRI brain this week with and without contrast to better determine the degree of abscess formation. (Pino Michelle MD) Ellitot Fragoso Oct 23, 2016 09:33 Pino Michelle MD Oct 25, 2016 15:15
[2016-10-23] MEDS: CEFEPIME INJ 2,000 MG in SODIUM CHLORIDE 0.9% INJ 100 ML IV SCH ×2 (10:00→18:00)
[2016-10-23] MEDS: METOPROLOL TARTRATE 5 MG/5 ML VIAL IV PUSH PRN ×2 (12:05→19:19)
--- NOTE | 2016-10-23 12:25 | HHI.HCPN ---
Reason for visit a. To assist with evaluation and management of symptoms including:dyspnea, encephalopathy, agitation, constipation b. To assist medical decision maker(s) with: better understanding of current medical conditions; weighing benefits/burdens of medical treatment options; making medical treatment decisions. (Sandy Liu) Subjective/Interval History s/p trach , PEG . CTS has evaluated for aortic valve, no interventions at this time needs at least 4 weeks on antibiotics, at least 6 weeks out from brain hemorrhage before could consider surgical intervention. Repeat CT brain stable. Notified family at bedside w questions. Seen with father, sister Anay just outside room, pt with agitation/restlessness, family trying not to stimulate him. Mother has just left unit. Family requests update. Review recent diagnostics including repeat CT brain stable, sedation adjustments/ongoing based on pt response/condition. Review overall condition, prognosis, possible trajectory and risks for ongoing complications/setbacks r/t underlying endocarditis and associated sequelae. Goals remain aggressive, they are hopeful pt will cont to improve and recover. Sister continues to support mother and father with updates and decision making, mother makes brief visits but too upsetting for her to stay for long periods. She will be leaving to return to work and her home in [place] this week, requests daily updates from Palliative during the week if possible. Pt examined-- minimized stimuli during my exam due to tachycardic 140-150s during my exam. Restless, moving all 4 extremities. Moving legs off of side of bed. REstraints x4. Appears to localize to touch on 4 extremities, not following command. Eyes open. Moving trunk around in bed, reaching /pulling on t -piece tubing. Fentanyl was weaned to off. Has been on PO (PEG) methadone 10mg Q6 hr since 10/21 ; today increased to 20mg Q6 hr by tankroom tender. Power Shovel Mechanic to resume precedex for sedation. Repeat BC from 10/21 No growth x 2 days.TMAX 103.5. WBC 13.7. H&H slowly trending down, 6.9/20.6 transfused 1 u RBC early this am. + Tolerating TF. + Having loose BMS. Has been on 40% T-piece since yesterday morning. D/w primary RN, critical care Dr Rodriguez. . (Sandy Liu) Advance Directives Living Will: Never completed Health Care Surrogate: Never completed Durable Power of Synchronizer: Completed, but not made available (mother reports has POA, not clear if this includes medical decision making (SW has reviewed, this does NOT include healthcare decision making) ) (Sandy Liu) Objective Vital Signs Date Time Temp Pulse Resp B/P Pulse Ox O2 Delivery O2 Flow Rate FiO2 10/23/16 06:15 102.7 10/23/16 06:14 102.7 10/23/16 06:10 95 T-piece 5.00 40 10/23/16 06:00 114 10/23/16 05:30 103.1 10/23/16 05:13 103.3 10/23/16 04:00 103.5 129 27 113/50 93 10/23/16 04:00 129 10/23/16 02:00 117 10/23/16 00:00 100.2 128 26 123/53 97 10/23/16 00:00 128 10/22/16 22:00 117 10/22/16 20:59 98 T-piece 40 10/22/16 20:00 101.7 125 16 107/49 98 10/22/16 20:00 125 10/22/16 19:00 100 T-Piece 7.00 40 10/22/16 18:00 130 10/22/16 16:00 40 10/22/16 16:00 99.1 128 20 118/57 99 10/22/16 16:00 128 10/22/16 14:00 139 Intake & Output 10/23/16 10/23/16 07:00 19:00 Intake Total 1557 ml Output Total 2400 ml Balance -843 ml Intake IV Total 850 ml Tube Feeding 457 ml Packed Cells 250 ml Output Urine Total 1500 ml Stool Total 900 ml Physical Exam CONSTITUTIONAL/GENERAL: This is an adequately nourished patient, awake TUBES/LINES/DRAINS: central line.trach, PEG, carrera catheter , SCDs , Restraints x4. SKIN: No jaundice, or lesions. Embolic purpuric lesions on LT great toe. + Sloughing/peeling of skin to tips of fingers, toes CARDIOVASCULAR: regular rhythm without murmur. No peripheral edema, periph pulses palpable RESPIRATORY/CHEST: Symmetric, unlabored respirations on Tpiece. Course air movement throughout. GASTROINTESTINAL: Abdomen soft,flat, nondistended. No palpable masses. No apparent tenderness to exam. TF infusing. BS normoactive. NEUROLOGICAL: restless. moving all 4 extremities. Moving legs off of side of bed. Appears to localize to touch on 4 extremities, not following command. Eyes open. Moving trunk around in bed, reaching /pulling on t-piece tubing PSYCHIATRIC: -- limited assess due to condition. restless . . (Sandy Liu) Diagnostic Tests Laboratory Laboratory Tests Test 10/20/16 10/20/16 10/20/16 10/21/16 13:19 16:00 21:00 01:07 Potassium Level 3.3 MEQ/L 3.5 MEQ/L (3.5-5.1) (3.5-5.1) Sodium Level 157 MEQ/L 158 MEQ/L (136-145) (136-145) Test 10/21/16 10/21/16 10/21/16 10/22/16 04:27 05:15 17:50 03:50 White Blood Count 14.7 TH/MM3 12.5 TH/MM3 (4.0-11.0) (4.0-11.0) Red Blood Count 2.85 MIL/MM3 2.69 MIL/MM3 (4.50-5.90) (4.50-5.90) Hemoglobin 8.4 GM/DL 7.7 GM/DL (13.0-17.0) (13.0-17.0) Hematocrit 25.0 % 23.4 % (39.0-51.0) (39.0-51.0) Mean Corpuscular Volume 87.5 FL 87.2 FL (80.0-100.0) (80.0-100.0) Mean Corpuscular Hemoglobin 29.3 PG 28.6 PG (27.0-34.0) (27.0-34.0) Mean Corpuscular Hemoglobin 33.5 % 32.8 % Concent (32.0-36.0) (32.0-36.0) Red Cell Distribution Width 15.0 % 14.8 % (11.6-17.2) (11.6-17.2) Platelet Count 331 TH/MM3 260 TH/MM3 (150-450) (150-450) Mean Platelet Volume 7.4 FL 8.0 FL (7.0-11.0) (7.0-11.0) Neutrophils (%) (Auto) 76.0 % 78.7 % (16.0-70.0) (16.0-70.0) Lymphocytes (%) (Auto) 16.9 % 15.2 % (9.0-44.0) (9.0-44.0) Monocytes (%) (Auto) 4.8 % (0.0-8.0) 4.4 % (0.0-8.0) Eosinophils (%) (Auto) 1.3 % (0.0-4.0) 1.2 % (0.0-4.0) Basophils (%) (Auto) 1.0 % (0.0-2.0) 0.5 % (0.0-2.0) Neutrophils # (Auto) 11.2 TH/MM3 9.8 TH/MM3 (1.8-7.7) (1.8-7.7) Lymphocytes # (Auto) 2.5 TH/MM3 1.9 TH/MM3 (1.0-4.8) (1.0-4.8) Monocytes # (Auto) 0.7 TH/MM3 0.6 TH/MM3 (0-0.9) (0-0.9) Eosinophils # (Auto) 0.2 TH/MM3 0.2 TH/MM3 (0-0.4) (0-0.4) Basophils # (Auto) 0.1 TH/MM3 0.1 TH/MM3 (0-0.2) (0-0.2) CBC Comment DIFF FINAL DIFF FINAL Differential Comment Sodium Level 157 MEQ/L 154 MEQ/L (136-145) (136-145) Potassium Level 3.9 MEQ/L 3.3 MEQ/L (3.5-5.1) (3.5-5.1) Chloride Level 122 MEQ/L 120 MEQ/L (98-107) (98-107) Carbon Dioxide Level 29.2 MEQ/L 27.9 MEQ/L (21.0-32.0) (21.0-32.0) Anion Gap 6 MEQ/L (5-15) 6 MEQ/L (5-15) Blood Urea Nitrogen 33 MG/DL (7-18) 32 MG/DL (7-18) Creatinine 0.89 MG/DL 0.99 MG/DL (0.60-1.30) (0.60-1.30) Estimat Glomerular Filtration 103 ML/MIN 91 ML/MIN (>89) Rate (>89) Random Glucose 121 MG/DL 117 MG/DL (74-106) (74-106) Calcium Level 8.8 MG/DL 8.4 MG/DL (8.5-10.1) (8.5-10.1) Phosphorus Level 3.0 MG/DL 3.0 MG/DL (2.5-4.9) (2.5-4.9) Magnesium Level 2.4 MG/DL 2.2 MG/DL (1.5-2.5) (1.5-2.5) Total Bilirubin 0.8 MG/DL 0.6 MG/DL (0.2-1.0) (0.2-1.0) Aspartate Amino Transf 24 U/L (15-37) 19 U/L (15-37) (AST/SGOT) Alanine Aminotransferase 26 U/L (12-78) 21 U/L (12-78) (ALT/SGPT) Alkaline Phosphatase 98 U/L (45-117) 78 U/L (45-117) Total Protein 7.1 GM/DL 6.4 GM/DL (6.4-8.2) (6.4-8.2) Albumin 1.9 GM/DL 1.8 GM/DL (3.4-5.0) (3.4-5.0) Blood Gas Puncture Site RT RADIAL Blood Gas Patient Temperature 98.6 Blood Gas HCO3 27 mmol/L (22-26) Blood Gas Base Excess 2.8 mmol/L (-2-2) Blood Gas Oxygen Saturation 97 % (90-100) Arterial Blood pH 7.41 (7.380-7.420) Arterial Blood Partial 44 mmHg (38-42) Pressure CO2 Arterial Blood Partial 160 mmHg Pressure O2 (61-120) Arterial Blood Oxygen Content 11.7 Vol % (12.0-20.0) Arterial Blood 1.2 % (0-4) Carboxyhemoglobin Arterial Blood Methemoglobin 1.0 % (0-2) Blood Gas Hemoglobin 8.3 G/DL (12.0-16.0) Oxygen Delivery Device VENTILATOR Blood Gas Ventilator Setting PRVC/AC Blood Gas Inspired Oxygen 40 % Urine Color RED (YELLW/STRAW) Urine Turbidity HAZY (CLEAR) Urine pH 6.5 (5.0-8.5) Urine Specific [place] 1.020 (1.002-1.035) Urine Protein 100 mg/dL (NEG-TRACE) Urine Glucose (UA) NEG mg/dL (NEG) Urine Ketones NEG mg/dL (NEG) Urine Occult Blood LARGE (NEG) Urine Nitrite NEG (NEG) Urine Bilirubin NEG (NEG) Urine Urobilinogen 2.0 MG/DL (LESS THAN 2.0) Urine Leukocyte Esterase MOD (NEG) Urine RBC /hpf (0-3) Urine WBC 44 /hpf (0-5) Urine Bacteria OCC /hpf (NONE) Urine Mucus FEW /lpf (OCC) Urine Yeast (Budding) RARE (NONE) Microscopic Urinalysis Comment CATH-CULTURE IND Test 10/22/16 10/23/16 10/23/16 05:50 02:45 04:09 Blood Gas Puncture Site RT RADIAL Blood Gas Patient Temperature 98.6 Blood Gas HCO3 25 mmol/L (22-26) Blood Gas Base Excess 1.3 mmol/L (-2-2) Blood Gas Oxygen Saturation 97 % (90-100) Arterial Blood pH 7.42 (7.380-7.420) Arterial Blood Partial 41 mmHg (38-42) Pressure CO2 Arterial Blood Partial 178 mmHg Pressure O2 (61-120) Arterial Blood Oxygen Content 11.2 Vol % (12.0-20.0) Arterial Blood 1.1 % (0-4) Carboxyhemoglobin Arterial Blood Methemoglobin 1.0 % (0-2) Blood Gas Hemoglobin 7.9 G/DL (12.0-16.0) Oxygen Delivery Device VENTILATOR Blood Gas Ventilator Setting PRVC14/550/1.0/5 Blood Gas Inspired Oxygen 40 % White Blood Count 13.7 TH/MM3 (4.0-11.0) Red Blood Count 2.37 MIL/MM3 (4.50-5.90) Hemoglobin 6.9 GM/DL (13.0-17.0) Hematocrit 20.6 % (39.0-51.0) Mean Corpuscular Volume 86.7 FL (80.0-100.0) Mean Corpuscular Hemoglobin 29.2 PG (27.0-34.0) Mean Corpuscular Hemoglobin 33.7 % Concent (32.0-36.0) Red Cell Distribution Width 14.5 % (11.6-17.2) Platelet Count 218 TH/MM3 (150-450) Mean Platelet Volume 8.2 FL (7.0-11.0) Neutrophils (%) (Auto) 78.9 % (16.0-70.0) Lymphocytes (%) (Auto) 15.0 % (9.0-44.0) Monocytes (%) (Auto) 4.3 % (0.0-8.0) Eosinophils (%) (Auto) 1.7 % (0.0-4.0) Basophils (%) (Auto) 0.1 % (0.0-2.0) Neutrophils # (Auto) 10.8 TH/MM3 (1.8-7.7) Lymphocytes # (Auto) 2.1 TH/MM3 (1.0-4.8) Monocytes # (Auto) 0.6 TH/MM3 (0-0.9) Eosinophils # (Auto) 0.2 TH/MM3 (0-0.4) Basophils # (Auto) 0.0 TH/MM3 (0-0.2) CBC Comment DIFF FINAL Differential Comment Sodium Level 156 MEQ/L (136-145) Potassium Level 3.0 MEQ/L (3.5-5.1) Chloride Level 121 MEQ/L (98-107) Carbon Dioxide Level 27.6 MEQ/L (21.0-32.0) Anion Gap 7 MEQ/L (5-15) Blood Urea Nitrogen 26 MG/DL (7-18) Creatinine 0.94 MG/DL (0.60-1.30) Estimat Glomerular Filtration 97 ML/MIN (>89) Rate Random Glucose 119 MG/DL (74-106) Calcium Level 8.1 MG/DL (8.5-10.1) Total Bilirubin 0.5 MG/DL (0.2-1.0) Aspartate Amino Transf 23 U/L (15-37) (AST/SGOT) Alanine Aminotransferase 19 U/L (12-78) (ALT/SGPT) Alkaline Phosphatase 81 U/L (45-117) Total Protein 6.1 GM/DL (6.4-8.2) Albumin 1.9 GM/DL (3.4-5.0) Blood Type O NEGATIVE Antibody Screen NEGATIVE Crossmatch Leukocyte-Reduced Red Blood Cells Blood Bank Comment (Sandy Liu CHAPIN) Result Diagram: 10/23/16 0245 10/23/16 0245 Microbiology Microbiology Date/Time Procedure Status Source Growth 10/21/16 17:50 Gram Stain - Final Resulted Sputum Endotracheal 10/21/16 17:50 Sputum Culture - Preliminary Resulted Gram Negative Bhavin 10/21/16 17:50 Urine Culture - Final Complete Urine Catheterized Urine Corynebacterium Sp 10/21/16 19:15 Aerobic Blood Culture - Preliminary Resulted Blood Peripheral NO GROWTH IN 2 DAYS 10/21/16 19:15 Anaerobic Blood Culture - Preliminary Resulted Blood Peripheral NO GROWTH IN 2 DAYS 10/21/16 19:25 Aerobic Blood Culture - Preliminary Resulted Blood Peripheral NO GROWTH IN 2 DAYS 10/21/16 19:25 Anaerobic Blood Culture - Preliminary Resulted Blood Peripheral NO GROWTH IN 2 DAYS Imaging Last Impressions Head CT 10/22/16 06 Signed Impressions: Service Date/Time: Saturday, October 22, 2016 04:14 - CONCLUSION: There is slight improvement in the degree of hemorrhage within the right temporal lobe, however surrounding vasogenic edema has not changed and the rest of the examination has not significantly changed. Angela Basilio MD Chest X-Ray 10/22/16 06 Signed Impressions: Service Date/Time: Saturday, October 22, 2016 03:33 - CONCLUSION: Slight worsening of pulmonary edema. Angela Basilio MD Brain MRI 10/18/16 0600 Signed Impressions: Service Date/Time: October 11:38 - CONCLUSION: 1. Grossly abnormal examination demonstrating large areas of edema with abnormal contrast enhancement in both hemispheres. There are focal rim enhancing fluid collection seen in the left posterior parietal cortex, centrally and the high left parietal cortex and in the right posterior temporal cortex. Findings would be concerning for cerebritis and abscess. 2. 7.5 mm of [id number] falcine shift. 3. Focal area of abnormal enhancement and edema within the right side of the cerebellum again concerning for cerebritis/abscess in this patient with known history of endocarditis. 4. This patient's examination has significantly worsened when compared to previous dated 09/30/16. Cody Coello MD Renal Ultrasound 09/30/16 0000 Signed Impressions: Service Date/Time: Friday, September 30, 2016 18:45 - CONCLUSION: Ultrasound appearance of the kidneys within normal limits. Carrera catheter in the urinary bladder. Nonspecific splenomegaly incidentally noted. Michael Freitas MD Head Magnetic Resonance Angiography 09/30/16 0000 Signed Impressions: Service Date/Time: Friday, September 30, 2016 17:42 - CONCLUSION: No occlusion, aneurysm or other acute intracranial vascular abnormality demonstrated. Michael Freitas MD Procedures 09/30left subclavian central line, left radial arterial line 6/2-right subclavian central line 6/-tracheostomy, bronchoscopy (Sandy Liu) Assessment and Plan Disease Oriented Problem List: (1) Intracranial hemorrhage (2) Sepsis (3) Elevated troponin (4) Subarachnoid hemorrhage (5) Cerebral edema (6) Metabolic encephalopathy (7) Acute respiratory failure with hypoxia (8) Septic shock due to Staphylococcus aureus (9) Rash and nonspecific skin eruption (10) Substance abuse Symptom Scale: (1) Dyspnea 0-10 Scale: Unable to quantify (2) Encephalopathy 0-10 Scale: Unable to quantify (3) Agitation 0-10 Scale: Unable to quantify (4) Constipation 0-10 Scale: Unable to quantify Pertinent Non-Medical Issues Psychosocial:originally from [place], lived in [place] since . HS education. Was incarcerated and then in drug rehabilitation in [facility]. 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 Father (parents ) lived in [place] with support from family there. Supported by local friends, coworkers, apartment landlord. Spiritual:believes in God, no particular affiliation. would want ongoing security attendant support. Legal: Patient is not able to participate in decision-making due to clinical condition. He is not . Per [place] statutes his parents would be legal decision makers, mother is serving as primary supported by his sister and father. She reports she has POA paperwork. Ethical issues impacting care: Important Contacts mother Felicita Roberts [phone] (HCP) sister Elizabeth Rios [phone] father Pradeep Rios [phone] . 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 Severe aortic regurgitation and possible leaflet perforation, CV consult is pending. He additionally developed small area of brain hemorrhage. He remains critically ill. Possible he can recover with prolonged resuscitation , prolonged ICU course. Remains very high risk for further complications and setbacks though possible he can survive this initial injury/illness. Code Status: Full Code Plan * Legal decision maker: Patient is not able to participate in decision-making due to clinical condition. He is not . Per [place] statutes his parents would be legal decision makers, mother is serving as primary supported by his sister and father. She reports she has POA paperwork. (palliative SW reviewed and indicates that it does not include medical decision-making) [ patient sister Anay providing support to patient mother and assists her with decision making.] * Goals: Ongoing meetings with patient family, daily or as needed. Patient sister appears to have a reasonable understanding of conditions, prognosis. Patient mother appears to have a very simple understanding of conditions and prognosis. Father also seems to have a very simple understanding of conditions and prognosis. Goals remain aggressive, Patient's mother is hoping for a miracle and wants to continue whatever measures available to help patient recover. They are open to ongoing to conversations as clinical course evolves. Sister Anay continues to support mother and father with updates and decision making, mother makes brief visits but too upsetting for her to stay for long periods. She will be leaving to return to work and her home in [place] this week, requests daily updates from Palliative during the week if possible. * CODE STATUS: full SYMPTOMS: * Dyspnea- intubated for AMS. Status post tracheostomy. CXR w/ slight pulmonary edema yesterday. +Enterobacter bronchial washing,on levaquin. Today breathing comfortably on T piece. T piece during the day (has been on x 24 hr) , pressure support at night if needed. * Agitation- hx substance abuse; hx ADD, on adderall.+embolic CVA,+hemorrhage. Has required significant sedatives during hospital course. Some improvement; now on methadone uptitrated per critical care, fentanyl weaned off today, More awake and with less ongoing agitation, though today again increased, tankroom tender to add Precedex. * Encephalopathy- multifactorial-- +sepsis, embolic CVA, + hemorrhage, hx substance abuse, EEG neg seizure ; repeat CT brain 10/16, MRI 10/17. Neurosurgery continues to follow, notes patient has approximately 8mm of midline shift on the most recent MRI, but his mental status is improving. Continue supportive treatment, follow-up CT scans, neuro assessments. Most recent CT brain 10/22 appear stable no new findings. Neuro status slowly improving tolerating slight weaning of sedatives. * Constipation -resolved. Now having frequent loose BMs, after several doses of laxatives. +colace scheduled. other bowel pharmaceuticals are prn. Palliative care will continue to follow during hospital course as condition evolves, to assist patient/decision-maker with understanding of medical conditions, weighing benefits/burdens of treatment options, for clarification of goals of treatment. Additionally will assist with any symptoms of palliative concern. . (Sandy Liu) Time Spent Total Floor Time (mins): 40 (Sandy Liu) Attestation To help prompt me to consider important information that might be impacting today's encounter and assessment, information from prior notes written by myself or my colleagues may have been "brought forward" into today's note. My signature on this note, however, is an attestation that I personally performed the exam, history, and/or decision-making noted today, and, unless otherwise indicated, the interactions with patient, family, and staff as well as the review of records all occurred today. I also attest that the listed assessment and stated plan reflect my best clinical judgment today based on the combination of historical information, prior notes, and today's exam/ interactions. When time spent is documented, it refers only to time spent today by the signer, or if indicated, combined time spent today by collaborating physician/nurse practitioner. (Sandy Liu) Attestation To help prompt me to consider important information that might be impacting today's encounter and assessment, information from prior notes written by myself or my colleagues may have been "brought forward" into today's note. My signature on this note, however, is an attestation that I personally performed the exam, history, and/or decision-making noted today, and, unless otherwise indicated, the interactions with patient, family, and staff as well as the review of records all occurred today. I also attest that the listed assessment and stated plan reflect my best clinical judgment today based on the combination of historical information, prior notes, and today's exam/ interactions. When time spent is documented, it refers only to time spent today by the signer, or if indicated, combined time spent today by collaborating physician/nurse practitioner. . (Jose Linares MD) Sandy Liu Oct 23, 2016 12:25 Jose Linares MD Oct 24, 2016 13:56
--- NOTE | 2016-10-23 12:58 | HHI.CCPN ---
Subjective Remarks/Hospital Course Hospital Course: This is a 26yM who presents to the ED for altered mental status. On arrival, the patient was obtunded and emergently intubated. His roommate is with him and cannot provide much medical history. The remainder of the history is per EMS and ER documentation and my discussion with the ER physician. Per EMS and ED reports, patient was seen approximately 10 days prior to admission by an unknown physician in the clinic and given antibiotic for fever. After taking the antibiotic, the patient had a new red rash on his hands and healing on his feet. He he was seen in the emergency department 2 days prior to admission for low-grade fever and congestion, generalized weakness, lightheadedness. At that time she was given prescription for prednisone 40 mg daily for 5 days. The patient's landlord apparently found the patient today with altered mental status and called EMS. When EMS arrived, his GCS was 10. There is reports that the patient has a history of substance abuse and was recently in rehabilitation. I did talk to the roommate who confirms that the patient had recently gotten out of rehabilitation and was living with him. The remainder does say that he does not think the patient has been taking any illicit substances recently. In the emergency department, the patient was hypotensive, tachycardic. His head CT is significant for significant areas of infarction in the right frontal , temporal, and cerebellar regions as well as a small area of subarachnoid hemorrhage in the superior right parietal region. Patient has early 3 mm of midline shift as well as effacement on the right. Patient's laboratory data is significant for white blood cell count of 19,000, hemoglobin of 9.9, lactate of 3.7, creatinine 1.69, CK 372, troponin of 11.9. His urine drug screen is positive for opiates and amphetamines. I performed a bedside critical care ultrasound which demonstrated hyperdynamic left ventricular function and what appears to be aortic valve vegetations and I measured to be proximally 0.9 x 8.8 cm. This is associated with what appears to be severe aortic regurgitation. There is no pericardial effusion. Right ventricular function is preserved. A formal echo has been ordered to confirm these findings. Critical care medicine has been consulted to evaluate and manage his shock, altered mental status, multiple areas of infarction, and subarachnoid hemorrhage. Subjective: 10/01: seen and examined around 06:30am. patient on norepinephrine at 6 mcg/min , persistently in shock. patient localizes to pain x 4 extremities. repeat interval head CT with 4mm midline shift. echo with significant aortic valve vegetations and moderate aortic insufficiency. 10/02: now following commands intermittently on the RUE, still localizing in LUE , BLE. off vasopressors this morning. cultures growing staph, sensitivities to follow. 10/03: tachycardic overnight. off vasopressors this morning. not following commands this morning. still persistently febrile and wbc uptrended to 20k. 10/04: still encephalopathic. EEG negative for seizure activity. received 1 trial dose of oxacillin yesterday without evidence of allergic reaction. will let ID guide this therapy, but safe from a critical care standpoint to pursue oxacillin therapy. cultures persistently positive and wbc uptrending. still febrile. 10/05: persistent encephalopathy. but now briskly purposeful x 4. now on oxacillin. discussed with ID, and will plan to start gent induction. wbc downtrending today. still febrile. will continue surveilance cultures q48h until 2 sets negative. 10/06: neuro exam unchanged. still purposeful. blood cultures negative x 24h. will re-draw today. still persists on 1mcg/min levophed, though this has also slightly improved from yesterday. 10/07: neuro exam stable. very agitated, not following commands. blood cultures negative x 48h. off levophed. 10/08: neuro exam stable. CT with increased midline shift and persistent edema, particularly right side. back on levophed. febrile. wbc stable. 10/09: sodium not at goal, likely due to normal renal function. follows commands in the RUE, which is new. spontaneously moves BLE, LUE. wbc downtrending. hgb 7 this AM, but no other signs of end-organ damage from low o2 delivery. 10/10 failed to SBT today due to rapid shallow breathing also tachycardia. Patient found to have a significant anemia below 7 will transfuse and reattempt SBT later today 10/11: Flash pulmonary edema today requiring sedation protocol and vent manipulations. Hypoxemia to 70s. 10/12: Some improvement in gas exchange after heavy sedation and relaxant. 10/13: Tmax 100.3, requiring high dose sedation. 10/14: Leukocytosis resolving. Still way ahead on free water - increase diuretics. Prealbumin 17, adjust TFs accordingly. 10/15: deeply sedated s/p severe agitation from prior causing pulmonary edema and hypoxia. talked with family at length, not clinically improving on pathway, will require tracheostomy and PEG tube for further improvements. also still significantly + on volume. still on vasopressors, but does not clinically appear to be in significant shock. 10/16: CT scan today with new hemorrhage into right temporal stroke area with 9mm midline shift. neurosurgery aware. no significant improvements in neurologic exam. repeat echo pending. 10/17: Neuro exam remains unchanged. Per Dr. Michelle CT from 10/16/16 showed small amount of new hemorrhage circumferentially along the area of the previous right temporal infarct. There is increased right temporal edema and mass effect but relatively focal primarily along the ventricle, and there is not significant compression along the brainstem or cisterns. Continued medical management, increased Na 145-150. Neuro exam remains unchanged Tmax 100.3, white count increased to 14.3. Enterobacter in BAL 10/15, start Levofloxacin 10/18 MRI shows multiple brain abscesses bilaterally. Large R sided stroke with midline shift 7.[address] Michelle will review images. ID feels oxacillin sufficient. Clinically neuro slightly improved. Spontaneous eye opening moves right upper and lower extremities spontaneously. (Mother states he squeezes hand to command) 10/19: Neuro exam slowly improving, squeezes with both hands. WBC count improved. Intermittently requiring Levophed. Remains tachycardic. Start scheduled metoprolol, start scheduled methadone to reduce fentanyl requirement 10/20 stable overnight, continue methadone and attempt to reduce fentanyl 10/21 will adjust methadone dose recommendation for detoxification off opiate addiction 10/22: Received Ativan overnight for agitation, now sedated moving all extremities spontaneously. Sodium 153. Urine output is adequate. Chest x-ray shows mild pulmonary edema 10/23: Getting 2 units PRBC for Hb 6.9. Intermittently agitated, with tachycardia. Fever up to 103 today. We'll discuss with ID. We'll change central line. For agitation will attempt to use Precedex again. I discussed with Dr. Cartagena who was the sap specialist while patient had agitation and pulmonary edema while on Precedex. It is clear to me and Dr. Cartagena that it was not an adverse reaction but agitation related to rapid tapering of his sedation and using Precedex alone at that time Objective Vital Signs Date Time Temp Pulse Resp B/P Pulse Ox O2 Delivery O2 Flow Rate FiO2 10/23/16 06:15 102.7 10/23/16 06:10 95 T-piece 5.00 40 10/23/16 06:00 114 10/23/16 04:00 27 113/50 Intake and Output 10/22/16 10/22/16 10/23/16 08:00 16:00 00:00 Intake Total 1027 ml 1473 ml 570 ml Output Total 1300 ml 1400 ml 1550 ml Balance -273 ml 73 ml -980 ml Result Diagram: 10/23/16 0245 10/23/16 0245 Other Results Microbiology Date/Time Procedure Status Source Growth 10/21/16 17:50 Urine Culture - Final Complete Urine Catheterized Urine Corynebacterium Sp Imaging Last Impressions Head CT 09/30/161452 Signed Impressions: Service Date/Time: Friday, September 30, 2016 16:31 - CONCLUSION: Noncontrast CT findings of concern for multiple intra-axial masses. There is small acute subarachnoid blood present and about 3 mm of leftward midline shift. MRI of the brain with and without contrast recommended. Michael Freitas MD Chest X-Ray 09/30/161452 Signed Impressions: Service Date/Time: Friday, September 30, 2016 15:23 - CONCLUSION: No acute cardiopulmonary disease demonstrated. Appropriate endotracheal tube tip position. Nasogastric tube courses into the stomach, tip not included on the study. Michael Freitas MD Objective Remarks GENERAL: Young male, lying in bed, critically ill, intermittently agitated hyperactive HEENT: Pupils 3 mm, equal, sluggishly reactive. Mucous membranes moist. NECK: No JVD. Trachea midline. trach with minimal oozing CHEST: Equal chest rise. TP 40%. vigorous cough with thin secretions. CARDIOVASCULAR: HR 100-130/min, regular rhythm. + JVD. Early Diastolic murmur Grade 3 best heard LSB ABDOMEN: Soft, nontender, nondistended. No guarding. MUSCULOSKELETAL: Rash on feet has improved. No peripheral edema. Distal pulses 2+. NEUROLOGICAL: WING. More awake alert, tracks clearly. Following commands on bilateral UE. 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 Has hemorrhagic conversion and midline shift. MRI 10/18 multiple brain abscesses. Continue with supportive care. Remains critically ill at this time, but improving. continue ongoing diuresis. Plan by systems: Neurologic: Multiple acute septic CVAs, brain abscesses Cerebral edema, Midline shift, 9 mm Small subarachnoid hemorrhage Right temporal hemorrhagic conversion Metabolic encephalopathy Agitated Delirium --MRI shows multiple brain abscesses bilaterally. Large R sided stroke with midline shift 7.[address] Michelle recommends continue medical management, --CT head 10/22: Slight improvement in right temporal hemorrhage with persistent vasogenic edema. Midline shift appears improved to me --Spontaneous eye opening, intermittently following commands --Continue hyperosmolar therapy, on hold now due to Na 156 --Use PRN Ativan and fentanyl for agitation. Continue Fentanyl gtt. Ativan 1 mg PO q8hr --Attempt precede again. I discussed with Dr. Cartagena who was the sap specialist while patient had agitation and pulmonary edema while on Precedex- it was not an adverse reaction but agitation related to rapid tapering of his sedation and using Precedex alone --Methadone 20 mg every 6 hours total dose of 80 mg per day may increase up to 120 mg per day total dose for symptoms of withdrawal --Haldol 5mg iv q6 --Keppra for seizure prophylaxis, patient with multiple brain abscesses --s/p failed trial of Seroquel. melatonin to assist with sleep/wake cycles Respiratory: Acute hypoxic and hypercarbic respiratory failure Mild pulmonary edema Vent bundle, head of bed 30 Avoid hypercarbia and hypoxia Wean FiO2 for goal SPO2 greater than 90% --s/p trach 10/[address] Dominguez/Osiel --TP / as tolerated Cardiovascular: Aortic valve endocarditis Severe aortic insufficiency, with probable AV perforation Persistent tachycardia Hypotension ABX as described below 2d echo 10/01: aortic valve vegetations, moderate AI. Echo 10/17 Sev AI, probable AV perforation --CTS consulted, will re evaluate for Mini AVR if neuro status improves remains intermittently on levophed/ortega-synephrine. continue to wean as tolerated for map > 65. --Scheduled metoprolol 12.5 mg every 8 hours for HR control --Off Cardizem Renal: Acute kidney injury- resolved. Jerez for accurate I's and O's -- Strict I/Os FEN/GI: Hypermagnesemia Metabolic Alkalosis Acute protein calorie malnutritionmild Elevated LFTs Intravascular Volume Overload Jevity 1.5, nutrition consult. Dulcolax PRN Daily BMP --s/p Lasix 40mg iv q12h DCd 10/19/16 --s/p Diamox 500mg iv q8h x 3 doses. Heme/ID: Infective endocarditis with embolic complications and severe aortic insufficiency Septic shock- resolved Anemia, likely secondary to hemolysis from valvulopathy New fever 10/01 blood cultures: MSSA --10/01 sputum culture: MSSA --10/02 blood cultures: MSSA --10/03 blood cultures: MSSA --10/04 bl cx: MSSA --10/05 bl cx: NGTD --10/06 bl cx: NGTD --10/15 Enterobacter in BAL --10/16 blood culture coag negative staph probable contamination --10/21 sputum GNR --10/21 blood no growth --10/21 urine corynebacterium --10/23 blood urine and sputum sent --change central line 10/23 vancomycin, flagyl d/cd 10/02. --oxacillin started 10/02-DCd 10/18 and nafcillin started by ID 10/18/16 --Levofloxacin to cover Enterobacter 10/17- --gentamicin induction therapy per ID. started 10/05, d/c'd Infectious disease following: Dontfraid, added cefepime today 10/23 --Give single dose of vanc 10/23 --getting 2U PRBC 10/23 Endocrine: Hyperglycemia of critical illness -- SSI, every 6 hours, medium scale TSH 0.16, free T4 1.07, T3 < 0.5: likely sick euthyroid. Prophylaxis: GI Prophylaxis Protonix IV DVT Prophylaxis -- SCDs Holding pharmacologic DVT prophylaxis in the setting of cerebral hemorrhage, multiple brain abscesses,anemia Lines: --09/30 left SC TLC d/c. New right SCV CVL placed 10/12. DCd 10/23 --New L subclavian placed 10/23 --Jerez Critical Care: The total critical care time was 40 minutes. Time to perform other separately billable procedures was not included in the critical care time. Mary Rodriguez MD Oct 23, 2016 12:58
[2016-10-23] MEDS ORDERED: DEXMEDETOMIDINE INJ 200 MCG in SODIUM CHLORIDE 0.9% INJ 50 ML IV SCH (13:00)
--- NOTE | 2016-10-23 14:10 | PD.PROCEDR ---
Central Line Procedure REASON FOR PROCEDURE Central venous access PROCEDURE PERFORMED Central line placement: Left subclavian central line CONSENT Informed consent for procedure was obtained . The risks and benefits of the procedure were discussed to include but limited to bleeding, clot formation, infection, and even . ANESTHESIA Local injection of 1% Lidocaine DESCRIPTION OF THE PROCEDURE The patient was placed in supine, mild Trendelenburg position. The area was exposed and cleansed with ChloraPrep, times two. Large sterile drape was used to cover the patient, with the site exposed, under sterile conditions including cap, face mask, sterile gown, and sterile gloves. On single attempt, the introducer needle was inserted with negative pressure in syringe and venous flash was obtained. The guide wire was then advanced without any restriction and the needle was removed. The dilator was used without any complications. Using Seldinger technique the 20 CM 7F triple lumen ABX coated catheter was advanced over the guide wire to a depth of 18 centimeters. The guide wire was removed. All ports were aspirated with dark venous blood return and flushed easily with sterile saline. All ports were capped. Antibiotic disc was placed around central line at puncture site. The central line was secured to the skin with two interrupted 2.0 silk sutures. The area was bandaged with sterile see- through central line bandage. COMPLICATIONS: No apparent complications ESTIMATED BLOOD LOSS: Less than 1 cc. Mary Rodriguez MD Oct 23, 2016 14:10
--- NOTE | 2016-10-23 14:51 | HHI.IDPN ---
Note Infectious Disease Note Discussed with RN. On T- piece. Has eyes open. Moving all extremities. Now spiking to 103 earlier. BP stable. Off pressors. Trach - placed 10/15. Peg placed 10/17. Repeat TTE 10/16 noted - apparent perforation of aortic valve leaflet. severe aortic regurg. Sputum - Bronch washing 10/15 has Enterobacter. Sputum endotracheal - 10/16 - gram neg bhavin. Sputum 10/21 - gran neg bhavin. Blood cultures 09/30 Staph aureus in 5 of 6 bottles. Blood culture 10/02 positive. staph aureus. Blood culture 10/03 positive. staph aureus. Blood culture 10/04 positive. staph aureus. Blood culture 10/05 negative. Blood culture 10/06 negative. Blood culture 10/16 - 1 bottle with staph coag neg. Blood culture 10/21 - pending. Patient was brought to the emergency department with altered mental status. Was evaluated for rash at preceding ED evaluation 2 days prior. PAST MEDICAL HISTORY 1. Substance abuse. The patient was in rehabilitation 1 year ago. 2. ADHD. 3. Degenerative disk disease. ALLERGIES Reportedly the patient is allergic to SULFA, PENICILLIN, TORADOL, CODEINE. ANTIBIOTICS: Nafcillin Levaquin. Cefepime. OBJECTIVE: Vital Signs Date Time Temp Pulse Resp B/P Pulse Ox O2 Delivery O2 Flow Rate FiO2 10/23/16 06:15 102.7 10/23/16 06:14 102.7 10/23/16 06:10 95 T-piece 5.00 40 10/23/16 06:00 114 10/23/16 05:30 103.1 10/23/16 05:13 103.3 10/23/16 04:00 103.5 129 27 113/50 93 10/23/16 04:00 129 10/23/16 02:00 117 10/23/16 00:00 100.2 128 26 123/53 97 10/23/16 00:00 128 10/22/16 22:00 117 10/22/16 20:59 98 T-piece 40 10/22/16 20:00 101.7 125 16 107/49 98 10/22/16 20:00 125 10/22/16 19:00 100 T-Piece 7.00 40 10/22/16 18:00 130 10/22/16 16:00 40 10/22/16 16:00 99.1 128 20 118/57 99 10/22/16 16:00 128 10/22/16 10/22/16 10/23/16 15:00 23:00 07:00 Intake Total 1473 ml 570 ml 987 ml Output Total 1400 ml 1550 ml 850 ml Balance 73 ml -980 ml 137 ml Intake IV Total 950 ml 348 ml 502 ml Tube Feeding 323 ml 222 ml 235 ml Packed Cells 250 ml Other 200 ml Output Urine Total 1200 ml 750 ml 750 ml Stool Total 200 ml 800 ml 100 ml Laboratory Tests Test 10/22/16 10/23/16 03:50 02:45 White Blood Count 12.5 TH/MM3 13.7 TH/MM3 Red Blood Count 2.69 MIL/MM3 2.37 MIL/MM3 Hemoglobin 7.7 GM/DL 6.9 GM/DL Hematocrit 23.4 % 20.6 % Mean Corpuscular Volume 87.2 FL 86.7 FL Mean Corpuscular Hemoglobin 28.6 PG 29.2 PG Mean Corpuscular Hemoglobin 32.8 % 33.7 % Concent Red Cell Distribution Width 14.8 % 14.5 % Platelet Count 260 TH/MM3 218 TH/MM3 Mean Platelet Volume 8.0 FL 8.2 FL Neutrophils (%) (Auto) 78.7 % 78.9 % Lymphocytes (%) (Auto) 15.2 % 15.0 % Monocytes (%) (Auto) 4.4 % 4.3 % Eosinophils (%) (Auto) 1.2 % 1.7 % Basophils (%) (Auto) 0.5 % 0.1 % Neutrophils # (Auto) 9.8 TH/MM3 10.8 TH/MM3 Lymphocytes # (Auto) 1.9 TH/MM3 2.1 TH/MM3 Monocytes # (Auto) 0.6 TH/MM3 0.6 TH/MM3 Eosinophils # (Auto) 0.2 TH/MM3 0.2 TH/MM3 Basophils # (Auto) 0.1 TH/MM3 0.0 TH/MM3 CBC Comment DIFF FINAL DIFF FINAL Differential Comment Laboratory Tests Test 10/22/16 10/23/16 03:50 02:45 Sodium Level 154 MEQ/L 156 MEQ/L Potassium Level 3.3 MEQ/L 3.0 MEQ/L Chloride Level 120 MEQ/L 121 MEQ/L Carbon Dioxide Level 27.9 MEQ/L 27.6 MEQ/L Anion Gap 6 MEQ/L 7 MEQ/L Blood Urea Nitrogen 32 MG/DL 26 MG/DL Creatinine 0.99 MG/DL 0.94 MG/DL Estimat Glomerular Filtration 91 ML/MIN 97 ML/MIN Rate Random Glucose 117 MG/DL 119 MG/DL Calcium Level 8.4 MG/DL 8.1 MG/DL Phosphorus Level 3.0 MG/DL Magnesium Level 2.2 MG/DL Total Bilirubin 0.6 MG/DL 0.5 MG/DL Aspartate Amino Transf 19 U/L 23 U/L (AST/SGOT) Alanine Aminotransferase 21 U/L 19 U/L (ALT/SGPT) Alkaline Phosphatase 78 U/L 81 U/L Total Protein 6.4 GM/DL 6.1 GM/DL Albumin 1.8 GM/DL 1.9 GM/DL Microbiology Date/Time Procedure Status Source Growth 10/21/16 17:50 Gram Stain - Final Resulted Sputum Endotracheal 10/21/16 17:50 Sputum Culture - Preliminary Resulted Gram Negative Bhavin 10/21/16 17:50 Urine Culture - Final Complete Urine Catheterized Urine Corynebacterium Sp 10/21/16 19:15 Aerobic Blood Culture - Preliminary Resulted Blood Peripheral NO GROWTH IN 2 DAYS 10/21/16 19:15 Anaerobic Blood Culture - Preliminary Resulted Blood Peripheral NO GROWTH IN 2 DAYS 10/21/16 19:25 Aerobic Blood Culture - Preliminary Resulted Blood Peripheral NO GROWTH IN 2 DAYS 10/21/16 19:25 Anaerobic Blood Culture - Preliminary Resulted Blood Peripheral NO GROWTH IN 2 DAYS IMAGING: Head CT 10/22/16599 Signed Impressions: Service Date/Time: Saturday, October 22, 2016 04:14 - CONCLUSION: There is slight improvement in the degree of hemorrhage within the right temporal lobe, however surrounding vasogenic edema has not changed and the rest of the examination has not significantly changed. Angela Basilio MD Chest X-Ray 10/22/16599 Signed Impressions: Service Date/Time: Saturday, October 22, 2016 03:33 - CONCLUSION: Slight worsening of pulmonary edema. Angela Basilio MD Chest X-Ray 10/21/16599 Signed Impressions: Service Date/Time: Friday, October 21, 2016 04:04 - CONCLUSION: No significant change. The bibasilar pulmonary opacities are stable in appearance. Russell Mckeon MD Chest X-Ray 10/20/16599 Signed Impressions: Service Date/Time: Thursday, October 20, 2016 02:51 - CONCLUSION: 1. Hazy opacity remains in the right lung base. 2. Tracheostomy tube remains in place. Russell Mckeon MD Chest X-Ray 10/18/16599 Signed Impressions: Service Date/Time: October 04:52 - CONCLUSION: Mild infiltrate in the right lower lobe. Central line in good position. Loyd Black MD Brain MRI 10/18/16599 Signed Impressions: Service Date/Time: October 11:38 - CONCLUSION: 1. Grossly abnormal examination demonstrating large areas of edema with abnormal contrast enhancement in both hemispheres. There are focal rim enhancing fluid collection seen in the left posterior parietal cortex, centrally and the high left parietal cortex and in the right posterior temporal cortex. Findings would be concerning for cerebritis and abscess. 2. 7.5 mm of [id number]-pa-gtts falcine shift. 3. Focal area of abnormal enhancement and edema within the right side of the cerebellum again concerning for cerebritis/abscess in this patient with known history of endocarditis. 4. This patient's examination has significantly worsened when compared to previous dated 09/30/16. Cody Coello MD Head CT 10/16/16 0000 Signed Impressions: Service Date/Time: Sunday, October 16, 2016 04:37 - CONCLUSION: Large area of edema in the right temporal lobe with now some central areas of hemorrhage clearly more impressive than on the , in particular the amount of hemorrhage present. I don't see drainable collection, it is more of an elongated curvilinear area. Small area stroke and edema in the medial left parietal lobe. Improvement in the lower left lateral parietal lesion with much less edema today Loyd Black MD Chest X-Ray 10/15/16 0000 Signed Impressions: Service Date/Time: Saturday, October 15, 2016 13:21 - CONCLUSION: Trach is in good position without pneumothorax. Jair Coello MD FACR PHYSICAL EXAMINATION GENERAL: Sedated. HEENT: Pupils dilated. No icterus. Oropharynx: moist mucosa. NECK: No adenopathy. No swelling. Trach site without e/o infection. LUNGS: Bibasilar rhonchi same. HEART: 2-3/6 systolic murmur at the left sternal border. Loud S1S2. No rubs or gallops. ABDOMEN: Bowel sounds are present, soft, nontender. - carrera has cloudy urine. EXTREMITIES: No clubbing or cyanosis or edema. Embolic purpuric lesions at the plantar aspect of the 4th and 5th toe on the left and the great toe on the right are fading. SKIN: Resolved rash. Dry peeled skin at tips of digits and soles of feet. NEURO: Moving all extremities. PSYCH: Unable to assess. IMPRESSION 1. Septic shock due to Staph aureus. Persistent bacteremia. MSSA. Blood culture now negative reflecting clearance. 2. Acute endocarditis. [place] aortic valve. Staph aureus. 3. Acute respiratory failure. 4. Bilateral lung infiltrates, probably secondary to septic emboli. PNA Staph aureus. Enterobacter PNA. 5. 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 6. History of IV drug abuse. Unknown current use status. 7. Antibiotic allergies. 8. Recent drug rash. Medicines in weeks before admission: Clindamycin, Doxycycline, acyclovir, Adderral, Tylenol, prednisone, omeprazole, Ibuprofen. 9. Repeat blood culture with staph coag negative is most likely contaminant. 10. FEVER - temp higher. WBC elevated. ? urine vs lung. RECOMMENDATIONS: 1. Continue Nafcillin 2 grams Q 4 hours. 2. Continue Levaquin for Pneumonia due to Enterobacter. 3. Cefepime. 4. Agree with Vancomycin dose. 5. Valve replacement when feasible. 6. Monitor new cultures. 7. Agree with central line change. Monitor WBC. 8. Monitor clinical status. Nemesio Jackson MD Oct 23, 2016 14:51
--- NOTE | 2016-10-23 15:09 | RADRPT ---
EXAM DATE/TIME: 10/23/2016 14:20 [facility] COMPARISON: CHEST SINGLE AP, October 22, 2016, 3:33. INDICATIONS : Central line placement. MEDICAL HISTORY : None. SURGICAL HISTORY : Tracheostomy ENCOUNTER: Subsequent ACUITY: 3 weeks PAIN SCORE: Non-responsive. LOCATION: Bilateral chest FINDINGS: Significant worsening in the appearance of the lungs is noted. There is extensive progression of diff use airspace disease. Left subclavian central line is been inserted. There is no evidence of pneumothorax. Tracheostomy tube is in good position. CONCLUSION: Generalized airspace disease with significant progression since the prior day. New left subclavian central venous catheter which is in good position. No evidence of pneumothorax. Yayo Banda MD on October 23, 2016 at 15:05 Board Certified Radiologist. This report was verified electronically.
[2016-10-23] MEDS ORDERED: VANCOMYCIN INJ 1,250 MG in SODIUM CHLOR 0.9% 250 ML INJ 250 ML IV ONE (16:00)
[2016-10-23] MEDS: MELATONIN 5 MG TAB PO SCH (20:07)
[2016-10-24] VITALS (19 sets, daily range): BP systolic 93–123; BP diastolic 47–58; PULSE 85–143; RESP 11–40; TEMP 98.4–102.6; O2SAT 95–100
[2016-10-24] MEDS: fentaNYL DRIP 250 ML IV SCH ×3 (00:34→20:27)
[2016-10-24] MEDS: NAFCILLIN INJ 2,000 MG in SODIUM CHLORIDE 0.9% INJ 100 ML IV SCH ×6 (00:34→21:45)
[2016-10-24] MEDS: HALOPERIDOL LACTATE 5 MG/ML AMP IV SCH ×4 (01:30→19:49)
[2016-10-24] MEDS: CEFEPIME INJ 2,000 MG in SODIUM CHLORIDE 0.9% INJ 100 ML IV SCH ×3 (01:30→18:16)
[2016-10-24] MEDS: METHADONE HCL 10 MG/10 ML ORAL SOLUTION PO SCH ×4 (02:10→21:46)
[2016-10-24] MEDS: LORazepam 2 MG/ML VIAL IV PUSH PRN ×2 (03:00→09:29)
[2016-10-24] MEDS: ACETAMINOPHEN 325 MG TAB PO PRN ×2 (03:00→10:04)
[2016-10-24] MEDS: CHLORHEXIDINE GLUCONATE 2 % 1 PACK (2 CLOTHS) TOP SCH (03:12)
[2016-10-24 04:35] LABS: AUTOMATED NEUTROPHIL # 8.9 TH/MM3 (1.8-7.7); BASOPHIL % 0.4 % (0.0-2.0); EOSINOPHIL # 0.3 TH/MM3 (0-0.4); EOSINOPHIL % 3.1 % (0.0-4.0); HEMATOCRIT 22.6 % (39.0-51.0); HEMO FLAGS DIFF FINAL; LYMPH % 12.7 % (9.0-44.0); LYMPHOCYTE # 1.4 TH/MM3 (1.0-4.8); MEAN CELL VOLUME 87.3 FL (80.0-100.0); MEAN CORPUSCULAR HEMOGLOBIN 28.5 PG (27.0-34.0); MEAN CORPUSCULAR HGB CONC 32.6 % (32.0-36.0); MONO % 3.2 % (0.0-8.0); NEUT % 80.6 % (16.0-70.0); PLATELET COUNT 170 TH/MM3 (150-450); RED BLOOD COUNT 2.59 MIL/MM3 (4.50-5.90); RED CELL DISTRIBUTION WIDTH 14.7 % (11.6-17.2)
[2016-10-24 04:54] LABS: BICARBONATE 22.8 MEQ/L (21.0-32.0); POTASSIUM 3.3 MEQ/L (3.5-5.1)
[2016-10-24] MEDS: LORazepam 1 MG TAB PO SCH ×3 (05:13→21:45)
[2016-10-24] MEDS: POTASSIUM CHLOR 20 MEQ PREMIX 100 ML IV PRN ×2 (05:14→13:36)
[2016-10-24] MEDS: METOPROLOL TARTRATE 25 MG TAB PO SCH ×3 (05:14→21:45)
--- NOTE | 2016-10-24 05:27 | RADRPT ---
EXAM DATE/TIME: 10/24/2016 04:38 [facility] COMPARISON: CHEST SINGLE AP, October 23, 2016, 14:20. INDICATIONS : Short of breath. MEDICAL HISTORY : None. SURGICAL HISTORY : Tracheostomy. ENCOUNTER: Subsequent ACUITY: 1 week PAIN SCORE: 0/10 LOCATION: Bilateral chest FINDINGS: Tracheostomy tube is present in satisfactory position. There is improvement in the aeration of the kaitlyn ngs most likely improvement in pulmonary edema with moderate pulmonary edema remaining. The rest of t he examination has not significantly changed. CONCLUSION: Improvement in aeration of the lungs. Angela Basilio MD on October 24, 2016 at 5:25 Board Certified Radiologist. This report was verified electronically.
[2016-10-24] MEDS: DOCUSATE SODIUM 100 MG/10 ML UDC G-TUBE SCH ×2 (07:31→19:49)
[2016-10-24] MEDS: PANTOPRAZOLE SODIUM 40 MG VIAL IV SCH (09:02)
[2016-10-24] MEDS: ARTIFICIAL TEARS OPTH SOLN 15 ML BTL EACH EYE SCH ×3 (09:03→18:16)
[2016-10-24] MEDS: CHLORHEXIDINE 0.12% (ORAL KIT) 15 ML CUP MT SCH ×2 (09:03→19:50)
[2016-10-24] MEDS: LEVOFLOXACIN 750 MG PREMIX INJ 150 ML IV SCH (09:04)
[2016-10-24] MEDS: levETIRAcetam 500 MG/5 ML UDC NG SCH ×2 (09:04→21:45)
[2016-10-24] MEDS: BENEPROTEIN POWDER 1 PACK G-TUBE SCH ×3 (09:04→18:16)
[2016-10-24] MEDS: SODIUM CHLORIDE 0.9% FLUSH 10 ML FLUSH IV FLUSH SCH ×2 (09:04→21:47)
[2016-10-24] MEDS ORDERED: PROPOFOL 500 MG/50 ML INJ 50 ML ONE (09:33)
[2016-10-24] MEDS ORDERED: ROCURONIUM INJ 50 MG/5 ML VIAL ONE ×3 (09:38→11:29)
[2016-10-24] MEDS ORDERED: NOREPINEPHRINE-DEXTROSE DRIP 250 ML IV ONE ×2 (09:41→14:40)
[2016-10-24] MEDS: PROPOFOL 1000 MG/100 ML INJ 100 ML IV SCH ×3 (11:06→20:27)
--- NOTE | 2016-10-24 11:57 | HHI.IDPN ---
Note Infectious Disease Note Patient Has frothy trach secretions. Sedated heavily. Still with temp elevation. Now on 15 mcg of Levophed. SBP 94. Trach - placed 10/15. Peg placed 10/17. Repeat TTE 10/16 noted - apparent perforation of aortic valve leaflet. severe aortic regurg. Sputum - Bronch washing 10/15 has Enterobacter. Sputum endotracheal - 10/16 - gram neg derrick. Sputum 10/21 - gran neg derrick. Blood cultures 09/30 Staph aureus in 5 of 6 bottles. Blood culture 10/02 positive. staph aureus. Blood culture 10/03 positive. staph aureus. Blood culture 10/04 positive. staph aureus. Blood culture 10/05 negative. Blood culture 10/06 negative. Blood culture 10/16 - 1 bottle with staph coag neg. Blood culture 10/21 - pending. Patient was brought to the emergency department with altered mental status. Was evaluated for rash at preceding ED evaluation 2 days prior. PAST MEDICAL HISTORY 1. Substance abuse. The patient was in rehabilitation 1 year ago. 2. ADHD. 3. Degenerative disk disease. ALLERGIES Reportedly the patient is allergic to SULFA, PENICILLIN, TORADOL, CODEINE. ANTIBIOTICS: Nafcillin Levaquin. Cefepime. OBJECTIVE: Vital Signs Date Time Temp Pulse Resp B/P Pulse Ox O2 Delivery O2 Flow Rate FiO2 10/24/16 10:20 95 100 10/24/16 06:00 110 10/24/16 04:00 102 10/24/16 04:00 100.9 102 14 93/47 100 10/24/16 03:07 98 50 10/24/16 02:00 103 10/24/16 00:00 98.4 107 11 99/48 98 10/24/16 00:00 110 10/23/16 22:10 95 50 10/23/16 22:00 108 10/23/16 21:30 92 T-piece 10.00 90 10/23/16 20:00 100.8 142 38 105/55 89 10/23/16 20:00 144 10/23/16 19:00 89 T-Piece 90 10/23/16 18:00 114 10/23/16 16:00 99.1 90 22 103/55 97 10/23/16 16:00 140 10/23/16 14:00 114 10/23/16 12:00 140 10/23/16 10/23/16 10/24/16 15:00 23:00 07:00 Intake Total 400 ml 1954 ml 864 ml Output Total 1000 ml 890 ml 550 ml Balance -600 ml 1064 ml 314 ml Intake Oral 0 ml IV Total 400 ml 1330 ml 464 ml Tube Feeding 424 ml Other 200 ml 400 ml Output Urine Total 900 ml 890 ml 550 ml Stool Total 100 ml 0 ml Laboratory Tests Test 10/23/16 10/24/16 02:45 04:05 White Blood Count 13.7 TH/MM3 11.0 TH/MM3 Red Blood Count 2.37 MIL/MM3 2.59 MIL/MM3 Hemoglobin 6.9 GM/DL 7.4 GM/DL Hematocrit 20.6 % 22.6 % Mean Corpuscular Volume 86.7 FL 87.3 FL Mean Corpuscular Hemoglobin 29.2 PG 28.5 PG Mean Corpuscular Hemoglobin 33.7 % 32.6 % Concent Red Cell Distribution Width 14.5 % 14.7 % Platelet Count 218 TH/MM3 170 TH/MM3 Mean Platelet Volume 8.2 FL 7.9 FL Neutrophils (%) (Auto) 78.9 % 80.6 % Lymphocytes (%) (Auto) 15.0 % 12.7 % Monocytes (%) (Auto) 4.3 % 3.2 % Eosinophils (%) (Auto) 1.7 % 3.1 % Basophils (%) (Auto) 0.1 % 0.4 % Neutrophils # (Auto) 10.8 TH/MM3 8.9 TH/MM3 Lymphocytes # (Auto) 2.1 TH/MM3 1.4 TH/MM3 Monocytes # (Auto) 0.6 TH/MM3 0.4 TH/MM3 Eosinophils # (Auto) 0.2 TH/MM3 0.3 TH/MM3 Basophils # (Auto) 0.0 TH/MM3 0.0 TH/MM3 CBC Comment DIFF FINAL DIFF FINAL Differential Comment Laboratory Tests Test 10/23/16 10/24/16 02:45 04:05 Sodium Level 156 MEQ/L 152 MEQ/L Potassium Level 3.0 MEQ/L 3.3 MEQ/L Chloride Level 121 MEQ/L 119 MEQ/L Carbon Dioxide Level 27.6 MEQ/L 22.8 MEQ/L Anion Gap 7 MEQ/L 10 MEQ/L Blood Urea Nitrogen 26 MG/DL 19 MG/DL Creatinine 0.94 MG/DL 0.94 MG/DL Estimat Glomerular Filtration 97 ML/MIN 97 ML/MIN Rate Random Glucose 119 MG/DL 112 MG/DL Calcium Level 8.1 MG/DL 7.7 MG/DL Total Bilirubin 0.5 MG/DL Aspartate Amino Transf 23 U/L (AST/SGOT) Alanine Aminotransferase 19 U/L (ALT/SGPT) Alkaline Phosphatase 81 U/L Total Protein 6.1 GM/DL Albumin 1.9 GM/DL Microbiology Date/Time Procedure Status Source Growth 10/21/16 17:50 Gram Stain - Final Complete Sputum Endotracheal 10/21/16 17:50 Sputum Culture - Final Complete Enterobacter Cloacae 10/21/16 17:50 Urine Culture - Final Complete Urine Catheterized Urine Corynebacterium Sp 10/21/16 19:15 Aerobic Blood Culture - Preliminary Resulted Blood Peripheral NO GROWTH IN 3 DAYS 10/21/16 19:15 Anaerobic Blood Culture - Preliminary Resulted Blood Peripheral NO GROWTH IN 3 DAYS 10/21/16 19:25 Aerobic Blood Culture - Preliminary Resulted Blood Peripheral NO GROWTH IN 3 DAYS 10/21/16 19:25 Anaerobic Blood Culture - Preliminary Resulted Blood Peripheral NO GROWTH IN 3 DAYS IMAGING: Chest X-Ray 10/24/16 0000 Signed Impressions: Service Date/Time: Monday, October 24, 2016 04:38 - CONCLUSION: Improvement in aeration of the lungs. Angela Basilio MD Head CT 10/22/16599 Signed Impressions: Service Date/Time: Saturday, October 22, 2016 04:14 - CONCLUSION: There is slight improvement in the degree of hemorrhage within the right temporal lobe, however surrounding vasogenic edema has not changed and the rest of the examination has not significantly changed. Angela Basilio MD Chest X-Ray 10/22/16599 Signed Impressions: Service Date/Time: Saturday, October 22, 2016 03:33 - CONCLUSION: Slight worsening of pulmonary edema. Angela Basilio MD Chest X-Ray 10/21/16599 Signed Impressions: Service Date/Time: Friday, October 21, 2016 04:04 - CONCLUSION: No significant change. The bibasilar pulmonary opacities are stable in appearance. Russell Mckeon MD Chest X-Ray 10/18/16599 Signed Impressions: Service Date/Time: October 04:52 - CONCLUSION: Mild infiltrate in the right lower lobe. Central line in good position. Loyd Black MD Brain MRI 10/18/16 0600 Signed Impressions: Service Date/Time: October 11:38 - CONCLUSION: 1. Grossly abnormal examination demonstrating large areas of edema with abnormal contrast enhancement in both hemispheres. There are focal rim enhancing fluid collection seen in the left posterior parietal cortex, centrally and the high left parietal cortex and in the right posterior temporal cortex. Findings would be concerning for cerebritis and abscess. 2. 7.5 mm of [id number] falcine shift. 3. Focal area of abnormal enhancement and edema within the right side of the cerebellum again concerning for cerebritis/abscess in this patient with known history of endocarditis. 4. This patient's examination has significantly worsened when compared to previous dated 09/30/16. Cody Coello MD Head CT 10/16/16 0000 Signed Impressions: Service Date/Time: Sunday, October 16, 2016 04:37 - CONCLUSION: Large area of edema in the right temporal lobe with now some central areas of hemorrhage clearly more impressive than on the , in particular the amount of hemorrhage present. I don't see drainable collection, it is more of an elongated curvilinear area. Small area stroke and edema in the medial left parietal lobe. Improvement in the lower left lateral parietal lesion with much less edema today Loyd Black MD Chest X-Ray 10/15/16 0000 Signed Impressions: Service Date/Time: Saturday, October 15, 2016 13:21 - CONCLUSION: Trach is in good position without pneumothorax. Jair Coello MD FACR PHYSICAL EXAMINATION GENERAL: Sedated. Unresponsive. HEENT: Pupils dilated. No icterus. Oropharynx: moist mucosa. NECK: No adenopathy. No swelling. Trach site without e/o infection. LUNGS: Bibasilar rhonchi. HEART: 2-3/6 systolic murmur at the left sternal border. Loud S1S2. No rubs or gallops. ABDOMEN: Bowel sounds are present, soft, nontender. EXTREMITIES: No clubbing or cyanosis or edema. Embolic purpuric lesions at the plantar aspect of the 4th and 5th toe on the left and the great toe on the right are faded. SKIN: Resolved rash. Dry peeled skin at tips of digits and soles of feet. NEURO: Sedated. PSYCH: Unable to assess. IMPRESSION 1. Septic shock due to Staph aureus. Persistent bacteremia. MSSA. Blood culture now negative reflecting clearance. 2. Acute endocarditis. [place] aortic valve. Staph aureus. 3. Acute respiratory failure. 4. Bilateral lung infiltrates, probably secondary to septic emboli. Enterobacter PNA. 5. 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 6. History of IV drug abuse. Unknown current use status. 7. Antibiotic allergies. 8. Recent drug rash. Medicines in weeks before admission: Clindamycin, Doxycycline, acyclovir, Adderral, Tylenol, prednisone, omeprazole, Ibuprofen. 9. FEVER - temp lower C. line changed. WBC elevated. Corynebacterium in urine is not significant. RECOMMENDATIONS: 1. Continue Nafcillin 2 grams Q 4 hours. 2. Continue Levaquin for Pneumonia due to Enterobacter. 3. Continue Cefepime. 4. Valve replacement when feasible. 5. Monitor new cultures. 6. Monitor clinical status. Nemesio Jackson MD Oct 24, 2016 11:57
--- NOTE | 2016-10-24 12:21 | HHI.CCPN ---
Subjective Remarks/Hospital Course Hospital Course: This is a 26yM who presents to the ED for altered mental status. On arrival, the patient was obtunded and emergently intubated. His roommate is with him and cannot provide much medical history. The remainder of the history is per EMS and ER documentation and my discussion with the ER physician. Per EMS and ED reports, patient was seen approximately 10 days prior to admission by an unknown physician in the clinic and given antibiotic for fever. After taking the antibiotic, the patient had a new red rash on his hands and healing on his feet. He he was seen in the emergency department 2 days prior to admission for low-grade fever and congestion, generalized weakness, lightheadedness. At that time she was given prescription for prednisone 40 mg daily for 5 days. The patient's landlord apparently found the patient today with altered mental status and called EMS. When EMS arrived, his GCS was 10. There is reports that the patient has a history of substance abuse and was recently in rehabilitation. I did talk to the roommate who confirms that the patient had recently gotten out of rehabilitation and was living with him. The remainder does say that he does not think the patient has been taking any illicit substances recently. In the emergency department, the patient was hypotensive, tachycardic. His head CT is significant for significant areas of infarction in the right frontal , temporal, and cerebellar regions as well as a small area of subarachnoid hemorrhage in the superior right parietal region. Patient has early 3 mm of midline shift as well as effacement on the right. Patient's laboratory data is significant for white blood cell count of 19,000, hemoglobin of 9.9, lactate of 3.7, creatinine 1.69, CK 372, troponin of 11.9. His urine drug screen is positive for opiates and amphetamines. I performed a bedside critical care ultrasound which demonstrated hyperdynamic left ventricular function and what appears to be aortic valve vegetations and I measured to be proximally 0.9 x 8.8 cm. This is associated with what appears to be severe aortic regurgitation. There is no pericardial effusion. Right ventricular function is preserved. A formal echo has been ordered to confirm these findings. Critical care medicine has been consulted to evaluate and manage his shock, altered mental status, multiple areas of infarction, and subarachnoid hemorrhage. Subjective: 10/01: seen and examined around 06:30am. patient on norepinephrine at 6 mcg/min , persistently in shock. patient localizes to pain x [address] extremities. repeat interval head CT with 4mm midline shift. echo with significant aortic valve vegetations and moderate aortic insufficiency. 10/02: now following commands intermittently on the RUE, still localizing in LUE , BLE. off vasopressors this morning. cultures growing staph, sensitivities to follow. 10/03: tachycardic overnight. off vasopressors this morning. not following commands this morning. still persistently febrile and wbc uptrended to 20k. 10/04: still encephalopathic. EEG negative for seizure activity. received 1 trial dose of oxacillin yesterday without evidence of allergic reaction. will let ID guide this therapy, but safe from a critical care standpoint to pursue oxacillin therapy. cultures persistently positive and wbc uptrending. still febrile. 10/05: persistent encephalopathy. but now briskly purposeful x 4. now on oxacillin. discussed with ID, and will plan to start gent induction. wbc downtrending today. still febrile. will continue surveilance cultures q48h until 2 sets negative. 10/06: neuro exam unchanged. still purposeful. blood cultures negative x 24h. will re-draw today. still persists on 1mcg/min levophed, though this has also slightly improved from yesterday. 10/07: neuro exam stable. very agitated, not following commands. blood cultures negative x 48h. off levophed. 10/08: neuro exam stable. CT with increased midline shift and persistent edema, particularly right side. back on levophed. febrile. wbc stable. 10/09: sodium not at goal, likely due to normal renal function. follows commands in the RUE, which is new. spontaneously moves BLE, LUE. wbc downtrending. hgb 7 this AM, but no other signs of end-organ damage from low o2 delivery. 10/10 failed to SBT today due to rapid shallow breathing also tachycardia. Patient found to have a significant anemia below 7 will transfuse and reattempt SBT later today 10/11: Flash pulmonary edema today requiring sedation protocol and vent manipulations. Hypoxemia to 70s. 10/12: Some improvement in gas exchange after heavy sedation and relaxant. 10/13: Tmax 100.3, requiring high dose sedation. 10/14: Leukocytosis resolving. Still way ahead on free water - increase diuretics. Prealbumin 17, adjust TFs accordingly. 10/15: deeply sedated s/p severe agitation from prior causing pulmonary edema and hypoxia. talked with family at length, not clinically improving on pathway, will require tracheostomy and PEG tube for further improvements. also still significantly + on volume. still on vasopressors, but does not clinically appear to be in significant shock. 10/16: CT scan today with new hemorrhage into right temporal stroke area with 9mm midline shift. neurosurgery aware. no significant improvements in neurologic exam. repeat echo pending. 10/17: Neuro exam remains unchanged. Per Dr. Michelle CT from 10/16/16 showed small amount of new hemorrhage circumferentially along the area of the previous right temporal infarct. There is increased right temporal edema and mass effect but relatively focal primarily along the ventricle, and there is not significant compression along the brainstem or cisterns. Continued medical management, increased Na 145-150. Neuro exam remains unchanged Tmax 100.3, white count increased to 14.3. Enterobacter in BAL 10/15, start Levofloxacin 10/18 MRI shows multiple brain abscesses bilaterally. Large R sided stroke with midline shift 7.[address] Michelle will review images. ID feels oxacillin sufficient. Clinically neuro slightly improved. Spontaneous eye opening moves right upper and lower extremities spontaneously. (Mother states he squeezes hand to command) 10/19: Neuro exam slowly improving, squeezes with both hands. WBC count improved. Intermittently requiring Levophed. Remains tachycardic. Start scheduled metoprolol, start scheduled methadone to reduce fentanyl requirement 10/20 stable overnight, continue methadone and attempt to reduce fentanyl 10/21 will adjust methadone dose recommendation for detoxification off opiate addiction 10/22: Received Ativan overnight for agitation, now sedated moving all extremities spontaneously. Sodium 153. Urine output is adequate. Chest x-ray shows mild pulmonary edema 10/23: Getting 2 units PRBC for Hb 6.9. Intermittently agitated, with tachycardia. Fever up to 103 today. We'll discuss with ID. We'll change central line. For agitation will attempt to use Precedex again. I discussed with Dr. Cartagena who was the hat lining paster while patient had agitation and pulmonary edema while on Precedex. It is clear to me and Dr. Cartagena that it was not an adverse reaction but agitation related to rapid tapering of his sedation and using Precedex alone at that time 10/24: Placed back on ventilator today for hypoxemic respiratory failure, chest x -ray showing florid pulmonary edema. I was emergently called to the room today hypoxemic tachypneic breathing and 50s. Large amount of copious frothy blood- tinged secretions from the trach most likely secondary to severe pulmonary edema. Neuromuscular paralysis given for ventilator synchrony. Required aggressive suctioning and bag and mask ventilation for long time before stabilization. Planning for bronchoscopy to rule out any injury to bronchial tree or trach site bleeding. Pulmonary edema is secondary to severe AI Objective Vital Signs Date Time Temp Pulse Resp B/P Pulse Ox O2 Delivery O2 Flow Rate FiO2 10/24/16 10:20 95 100 10/24/16 06:00 110 10/24/16 04:00 100.9 14 93/47 10/23/16 21:30 T-piece 10.00 Intake and Output 10/23/16 10/23/16 10/23/16 07:59 15:59 23:59 Intake Total 987 ml 400 ml 1954 ml Output Total 850 ml 1000 ml 890 ml Balance 137 ml -600 ml 1064 ml Result Diagram: 10/24/16 0405 10/24/16 0405 Other Results Microbiology Date/Time Procedure Status Source Growth 10/21/16 17:50 Gram Stain - Final Complete Sputum Endotracheal 10/21/16 17:50 Sputum Culture - Final Complete Enterobacter Cloacae 10/21/16 17:50 Urine Culture - Final Complete Urine Catheterized Urine Corynebacterium Sp Imaging Last Impressions Head CT 09/30/16 5326 Signed Impressions: Service Date/Time: Friday, September 30, 2016 16:31 - CONCLUSION: Noncontrast CT findings of concern for multiple intra-axial masses. There is small acute subarachnoid blood present and about 3 mm of leftward midline shift. MRI of the brain with and without contrast recommended. Michael Freitas MD Chest X-Ray 09/30/16 4840 Signed Impressions: Service Date/Time: Friday, September 30, 2016 15:23 - CONCLUSION: No acute cardiopulmonary disease demonstrated. Appropriate endotracheal tube tip position. Nasogastric tube courses into the stomach, tip not included on the study. Michael Freitas MD Objective Remarks GENERAL: Young male, lying in bed, critically ill,in acute distress tachypneic, severe distress HEENT: Pupils equal, sluggishly reactive. Mucous membranes moist. NECK: No JVD. Trachea midline. Trach with profuse and copies amount of blood- tinged frothy secretions CHEST: Patient is severely hypoxemic tachypneic. Bilateral course crackles and wheezes CARDIOVASCULAR: HR 150min, regular rhythm. + JVD. Early Diastolic murmur Grade 3 best heard LSB ABDOMEN: Soft, nontender, nondistended. No guarding. MUSCULOSKELETAL: Rash on feet has improved. No peripheral edema. Distal pulses 2+. NEUROLOGICAL: In acute respiratory distress. 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 Has hemorrhagic conversion and midline shift. MRI 10/18 multiple brain abscesses. Continue with supportive care. Remains critically ill at this time, took a turn for the worse with severe pulmonary edema and acute hypoxemic respiratory failure back on full mechanical ventilation Plan by systems: Neurologic: Multiple acute septic CVAs, brain abscesses Cerebral edema, Midline shift, 9 mm Small subarachnoid hemorrhage Right temporal hemorrhagic conversion Metabolic encephalopathy Agitated Delirium --MRI shows multiple brain abscesses bilaterally. Large R sided stroke with midline shift 7.[address] Michelle recommends continued medical management --Repeat MRI 10/25/16 --CT head 10/22: Slight improvement in right temporal hemorrhage with persistent vasogenic edema. Midline shift appears improved to me --Spontaneous eye opening, intermittently following commands --Continue hyperosmolar therapy, as needed --Use PRN Ativan and fentanyl for agitation. --Currently back on full sedation with propofol and fentanyl for ventilator synchrony. Hold Ativan --Methadone 20 mg every 6 hours total dose of 80 mg per day may increase up to 120 mg per day total dose for symptoms of withdrawal --Haldol 5mg iv q6-place on hold --Keppra for seizure prophylaxis, patient with multiple brain abscesses --s/p failed trial of Seroquel. melatonin to assist with sleep/wake cycles Respiratory: Acute hypoxic and hypercarbic respiratory failure Severe pulmonary edema Place on full vent support PCV insp pressure 20 (target TV 600) RR 20, iT 1, PEEP 15) --Vent bundle, head of bed 30 --Plan for bronchoscopy. Bloody frothy secretion most likely secondary to severe pulmonary edema Wean FiO2 for goal SPO2 greater than 90% --s/p trach 10/[address] Dominguez/Osiel Cardiovascular: Aortic valve endocarditis Severe aortic insufficiency, with probable AV perforation Persistent tachycardia Hypotension Severe pulmonary edema from severe AI --Currently back on Levophed to keep MAP >65 --ABX as described below 2d echo 10/01: aortic valve vegetations, moderate AI. Echo 10/17 Sev AI, probable AV perforation --CTS consulted, will re evaluate for Mini AVR if neuro status improves (check repeat MRI) --Scheduled metoprolol 12.5 mg every 8 hours for HR control-hold due to hypotension Renal: Acute kidney injury- resolved. Solitario for accurate I's and O's --Strict I/Os FEN/GI: Hypermagnesemia Metabolic Alkalosis Acute protein calorie malnutritionmild Elevated LFTs Intravascular Volume Overload Jevity 1.5, nutrition consult- on hold --Dulcolax PRN Daily BMP --s/p Lasix 40mg iv q12h DCd 10/19/16. Give 1 dose of Bumex 1 mg x1 with IV Albumin and scheduled --s/p Diamox 500mg iv q8h x 3 doses completed . Heme/ID: Infective endocarditis with embolic complications and severe aortic insufficiency Septic shock- resolved Anemia, likely secondary to hemolysis from valvulopathy New fever 10/01 blood cultures: MSSA --10/01 sputum culture: MSSA --10/02 blood cultures: MSSA --10/03 blood cultures: MSSA --10/04 bl cx: MSSA --10/05 bl cx: NGTD --10/06 bl cx: NGTD --10/15 Enterobacter in BAL --10/16 blood culture coag negative staph probable contamination --10/21 sputum Enterobacter --10/21 blood no growth --10/21 urine corynebacterium --10/23 blood urine and sputum sent --change central line 10/23 vancomycin, flagyl d/cd 10/02. --oxacillin started 10/02-DCd 10/18 and nafcillin started by ID 10/18/16 --Levofloxacin to cover Enterobacter 10/17- --gentamicin induction therapy per ID. started 10/05, d/c'd Infectious disease following: Dontfraid, added cefepime today 10/23 --Give single dose of vanc 10/23 --getting 2U PRBC 10/23, 1U PRBC today Endocrine: Hyperglycemia of critical illness -- SSI, every 6 hours, medium scale TSH 0.16, free T4 1.07, T3 < 0.5: likely sick euthyroid. Prophylaxis: --GI Prophylaxis Protonix IV DVT Prophylaxis -- SCDs Holding pharmacologic DVT prophylaxis in the setting of cerebral hemorrhage, multiple brain abscesses,anemia Lines: --09/30 left SC TLC d/c. --New right SCV CVL placed 10/12. DCd 10/23 --New L subclavian placed 10/23 --Jerez Critical Care: The total critical care time was 85 minutes. Time to perform other separately billable procedures was not included in the critical care time. Mary Rodriguez MD Oct 24, 2016 12:21
[2016-10-24] MEDS ORDERED: BUMETANIDE INJ 1 MG/4 ML VIAL IV PUSH ONE (12:45)
[2016-10-24] MEDS: ALBUMIN HUMAN 25% 25 GM/100 ML BAGP IV SCH (13:33)
--- NOTE | 2016-10-24 16:59 | HHI.HCPN ---
Met with sister in hallway/lobby area. Mom also present but left quickly into conversation. Sister tearful. Verbalizes concern regarding patient's clinical condition/change. Reports she does not believe she is going to be leaving to go back home now. Offered emotional support. Sister inquires about clinical change and plan of care moving forward, specifically asks about planned scans, tests. CHAPIN Paredes also present to answer medical questions. Understands additional tests/scans will be attempted in coming days to further assess clinical condition. No further questions/concerns at this time. Palliative care will continue to follow throughout hospitalization. Madison Cervantes, CONDITIONING MACHINE OPERATOR Oct 24, 2016 16:59
[2016-10-24] MEDS: NOREPINEPHRINE 4 MG/D5W 250 ML IV SCH (20:27)
[2016-10-24] MEDS: MELATONIN 5 MG TAB PO SCH (21:00)
[2016-10-25] VITALS (18 sets, daily range): BP systolic 103–122; BP diastolic 50–58; PULSE 91–108; RESP 20–21; TEMP 98.2–101.1; O2SAT 98–100
[2016-10-25] MEDS: HALOPERIDOL LACTATE 5 MG/ML AMP IV SCH ×4 (01:09→20:00)
[2016-10-25] MEDS: CEFEPIME INJ 2,000 MG in SODIUM CHLORIDE 0.9% INJ 100 ML IV SCH ×2 (01:09→10:14)
[2016-10-25] MEDS: fentaNYL DRIP 250 ML IV SCH ×2 (01:10→21:47)
[2016-10-25] MEDS: PROPOFOL 1000 MG/100 ML INJ 100 ML IV SCH ×5 (01:10→21:47)
[2016-10-25] MEDS: NOREPINEPHRINE 4 MG/D5W 250 ML IV SCH ×2 (01:10→12:27)
[2016-10-25] MEDS: ACETAMINOPHEN 325 MG TAB PO PRN (01:10)
[2016-10-25] MEDS: CHLORHEXIDINE GLUCONATE 2 % 1 PACK (2 CLOTHS) TOP SCH (03:28)
[2016-10-25] MEDS: METHADONE HCL 10 MG/10 ML ORAL SOLUTION PO SCH ×4 (03:29→20:30)
[2016-10-25] MEDS: NAFCILLIN INJ 2,000 MG in SODIUM CHLORIDE 0.9% INJ 100 ML IV SCH ×7 (04:22→20:29)
[2016-10-25 04:54] LABS: AUTOMATED NEUTROPHIL # 12.3 TH/MM3 (1.8-7.7); BASOPHIL # 0.1 TH/MM3 (0-0.2); BASOPHIL % 0.6 % (0.0-2.0); EOSINOPHIL # 0.8 TH/MM3 (0-0.4); EOSINOPHIL % 5.2 % (0.0-4.0); HEMO FLAGS DIFF FINAL; LYMPH % 11.4 % (9.0-44.0); LYMPHOCYTE # 1.8 TH/MM3 (1.0-4.8); MEAN CORPUSCULAR HEMOGLOBIN 29.3 PG (27.0-34.0); MONO % 3.5 % (0.0-8.0); NEUT % 79.3 % (16.0-70.0); PLATELET COUNT 219 TH/MM3 (150-450); RED BLOOD COUNT 2.79 MIL/MM3 (4.50-5.90); RED CELL DISTRIBUTION WIDTH 15.3 % (11.6-17.2); WHITE BLOOD COUNT 15.5 TH/MM3 (4.0-11.0)
[2016-10-25] MEDS: METOPROLOL TARTRATE 25 MG TAB PO SCH ×3 (05:11→21:49)
[2016-10-25] MEDS: LORazepam 1 MG TAB PO SCH ×3 (05:11→20:32)
[2016-10-25 05:32] LABS: ALT (GPT) 15 U/L (12-78); ANION GAP 7 MEQ/L (5-15); AST (GOT) 17 U/L (15-37); BICARBONATE 26.4 MEQ/L (21.0-32.0); BLOOD UREA NITROGEN 21 MG/DL (7-18); CHLORIDE 115 MEQ/L (98-107); GLOMERULAR FILTRATION RATE 84 ML/MIN (>89); MAGNESIUM 2.1 MG/DL (1.5-2.5); POTASSIUM 3.2 MEQ/L (3.5-5.1); SODIUM (NA) 148 MEQ/L (136-145)
[2016-10-25 05:40] LABS: ALKALINE PHOSPHATASE 65 U/L (45-117); TOTAL BILIRUBIN ADULT 0.6 MG/DL (0.2-1.0)
[2016-10-25] MEDS: POTASSIUM CHLOR 40 MEQ PREMIX 100 ML IV PRN (05:48)
--- NOTE | 2016-10-25 06:32 | RADRPT ---
EXAM DATE/TIME: 10/25/2016 04:41 [facility] COMPARISON: CHEST SINGLE AP, October 24, 2016, 4:38. INDICATIONS : Respiratory disease. MEDICAL HISTORY : None. SURGICAL HISTORY : Tracheostomy. ENCOUNTER: Subsequent ACUITY: 3 weeks PAIN SCORE: Non-responsive. LOCATION: Bilateral chest FINDINGS: Tracheostomy tube is present in satisfactory position. Left subclavian line is present with tip overl apping the expected region of the SVC. The pattern of left lung mixed interstitial and alveolar proce ss has not changed, however the right midlung aeration is possibly slightly improved. The rest of the examination has not significantly changed. CONCLUSION: Mild improvement in aeration of right midlung, however otherwise not significantly ch anged. Angela Basilio MD on October 25, 2016 at 6:30 Board Certified Radiologist. This report was verified electronically.
[2016-10-25] MEDS: DOCUSATE SODIUM 100 MG/10 ML UDC G-TUBE SCH ×2 (07:43→20:31)
[2016-10-25] MEDS ORDERED: GADODIAMIDE PF 287 MG/ML 5 ML VIAL (for RAD MRI) IV ONE (08:49)
[2016-10-25] MEDS: SODIUM CHLORIDE 0.9% FLUSH 10 ML FLUSH IV FLUSH SCH ×2 (09:00→20:31)
--- NOTE | 2016-10-25 09:29 | RADRPT ---
EXAM DATE/TIME: 10/25/2016 08:23 [facility] COMPARISON: CT BRAIN W/O CONTRAST, October 22, 2016, 4:14. MRI BRAIN W & W/O CONTRAST, October 18, 2016, 11:38. INDICATIONS : Abscess. CONTRAST: 12 cc Omniscan (gadodiamide) IV MEDICAL HISTORY : endocarditis SURGICAL HISTORY : dental surgery, cyst removed from base of spine ENCOUNTER: Subsequent ACUITY: 3 weeks PAIN SCORE: Nonresponsive. LOCATION: cranial TECHNIQUE: Multiplanar, multisequence MRI of the brain was performed both prior to and following the administrat ion of paramagnetic contrast. FINDINGS: Axial inversion recovery images demonstrate large areas of edema involving the right temporal and par ietal cortex and extension medially into the basal ganglia on the right. There is a second sizable ar ea of abnormal T2 signal involving the watershed distribution between the left parietal and occipital cortex. There is abnormal signal seen within the right cerebellar hemisphere as well. The post contr ast images demonstrate continued contrast-enhancement involving the right temporal and parietal ariela x, the right-sided basal ganglia, the left watershed distribution and scattered areas over the high p arietal cortices. Direct comparison is made to the previous examination dated 10/18/16. There is been mild interval decrease in the size of the areas of enhancement. The centrally necrotic areas in these lesions has mildly decreased as well. There is continued right to left falcine shift which measures 4 mm on today's examination. This measured approximately 9 mm on previous study of 10/18/16. There is some subtle decreased signal within the right temporal parietal region on the gradient refoc used echo images. This could suggest some degree of hemorrhage within this. This is similar in appear ance to previous. No new areas are seen. The ventricles are normal in size and configuration. No new lesions are identified. CONCLUSION: 1. Continued large areas of abnormal contrast enhancement with surrounding edema involving the right temporal parietal cortex, the watershed distribution posteriorly on the left and patchy areas within the high cortices as well as the right cerebellar hemisphere. These have minimally decreased in size compared to previous. The overall amount of fluid associated with the lesions has decreased as well. Findings would suggest mild interval improvement compared to previous. There is decreasing right to l eft falcine shift. The amount of hemorrhage associated with these areas is stable. No new areas of he morrhage are seen. Cody Coello MD on October 25, 2016 at 9:20 Board Certified Radiologist. This report was verified electronically.
[2016-10-25] MEDS: LEVOFLOXACIN 750 MG PREMIX INJ 150 ML IV SCH (10:12)
[2016-10-25] MEDS: PANTOPRAZOLE SODIUM 40 MG VIAL IV SCH (10:13)
[2016-10-25] MEDS: BUMETANIDE INJ 1 MG/4 ML VIAL IV PUSH SCH (10:13)
[2016-10-25] MEDS: levETIRAcetam 500 MG/5 ML UDC NG SCH ×2 (10:13→20:30)
[2016-10-25] MEDS: CHLORHEXIDINE 0.12% (ORAL KIT) 15 ML CUP MT SCH ×2 (10:15→20:33)
[2016-10-25] MEDS: ARTIFICIAL TEARS OPTH SOLN 15 ML BTL EACH EYE SCH ×3 (10:16→17:45)
[2016-10-25] MEDS: BENEPROTEIN POWDER 1 PACK G-TUBE SCH ×3 (10:16→17:45)
--- NOTE | 2016-10-25 10:36 | HHI.HCPN ---
Reason for visit a. To assist with evaluation and management of symptoms including:dyspnea, encephalopathy, agitation, constipation b. To assist medical decision maker(s) with: better understanding of current medical conditions; weighing benefits/burdens of medical treatment options; making medical treatment decisions. Subjective/Interval History s/p trach , PEG . CTS has evaluated for aortic valve, no interventions at this time needs at least 4 weeks on antibiotics, at least 6 weeks out from brain hemorrhage before could consider surgical intervention. Repeat CT brain stable. Yesterday w with recurrent pulmonary edema requiring mechanical ventilation, increased sedation again. Repeat MRI done this morning, stable, slight improvement ,no new new areas of hemorrhage or infarct identified. CXR today= Mild improvement in aeration of right midlung, however otherwise not significantly changed. WBC 15.5. Tmax 102.6. Blood cultures from 10/21 negative 3 days. Sputum culture from yesterday pending. Remains on Levaquin, nafcillin, cefepime per ID. Critical care to discuss w [facility], Neuro RE any potential tx options, as pt will cont to have complications until underlying valve issues corrected. Seen as father, mother leaving Room. Sister Anay at bedside. Anay leaving to return home to [place] later today (she requests daily updates when possible as she cont to support pt mother and father in decision making). Updated on current tx, prognosis, clinical assessment. She has questions RE pt insurance coverage lapsing and how pt mother would go about ensuring his coverage remain uninterrupted. Advise mother would need to call insurer and premiums would likely need to be covered while pt in hospital to remain covered. sedated,on [facility] vent, non responsive to exam-- did not lighten for neuro exam. Nsg indicates that she has seen some spont movement from RUE even on sedatives. D/w RN, critical care. . Advance Directives Living Will: Never completed Health Care Surrogate: Never completed Durable Power of Construction Craft Laborer: Completed, but not made available (mother reports has POA, not clear if this includes medical decision making (SW has reviewed, this does NOT include healthcare decision making) ) Objective Vital Signs Date Time Temp Pulse Resp B/P Pulse Ox O2 Delivery O2 Flow Rate FiO2 10/25/16 07:55 99 10/25/16 06:00 102 10/25/16 04:00 50 10/25/16 04:00 101.1 96 21 115/54 98 10/25/16 04:00 103 10/25/16 03:27 98 50 10/25/16 02:00 96 10/25/16 01:29 100 50 10/25/16 00:00 91 10/25/16 00:00 50 10/25/16 00:00 100.0 91 20 103/50 98 10/24/16 22:00 94 10/24/16 21:04 96 50 10/24/16 20:00 91 10/24/16 20:00 50 10/24/16 20:00 99.9 102 20 106/53 98 10/24/16 19:00 98 Mechanical Ventilator 50 10/24/16 18:00 99 10/24/16 17:55 50 10/24/16 17:34 60 10/24/16 17:34 99 60 10/24/16 16:00 100.2 99 20 116/55 100 10/24/16 16:00 99 10/24/16 14:00 85 10/24/16 12:02 99 80 10/24/16 12:00 102.2 96 20 115/58 99 10/24/16 12:00 96 10/24/16 11:45 102.6 98 20 111/56 99 10/24/16 11:15 100 100 Intake & Output 10/25/16 10/25/16 07:00 19:00 Intake Total 3034 ml Output Total 1511 ml Balance 1523 ml IV Total 2095 ml Tube Feeding 439 ml Albumin 100 ml Other 400 ml Output Urine Total 1510 ml Stool Total 1 ml Physical Exam CONSTITUTIONAL/GENERAL: This is an adequately nourished patient, awake TUBES/LINES/DRAINS: central line.trach, PEG, carrera catheter , SCDs , Restraints x4. SKIN: No jaundice, or lesions. Embolic purpuric lesions on LT great toe. + Sloughing/peeling of skin to tips of fingers, toes CARDIOVASCULAR: regular rhythm without murmur. No peripheral edema, periph pulses palpable RESPIRATORY/CHEST: Symmetric, unlabored respirations on Tpiece. Course air movement throughout. GASTROINTESTINAL: Abdomen soft,flat, nondistended. No palpable masses. No apparent tenderness to exam. TF infusing. BS normoactive. NEUROLOGICAL: restless. moving all 4 extremities. Moving legs off of side of bed. Appears to localize to touch on 4 extremities, not following command. Eyes open. Moving trunk around in bed, reaching /pulling on t-piece tubing PSYCHIATRIC: -- limited assess due to condition. restless . . Diagnostic Tests Laboratory Laboratory Tests Test 10/23/16 10/23/16 10/24/16 10/24/16 02:45 04:09 04:05 09:52 White Blood Count 13.7 TH/MM3 11.0 TH/MM3 (4.0-11.0) (4.0-11.0) Red Blood Count 2.37 MIL/MM3 2.59 MIL/MM3 (4.50-5.90) (4.50-5.90) Hemoglobin 6.9 GM/DL 7.4 GM/DL (13.0-17.0) (13.0-17.0) Hematocrit 20.6 % 22.6 % (39.0-51.0) (39.0-51.0) Mean Corpuscular Volume 86.7 FL 87.3 FL (80.0-100.0) (80.0-100.0) Mean Corpuscular Hemoglobin 29.2 PG 28.5 PG (27.0-34.0) (27.0-34.0) Mean Corpuscular Hemoglobin 33.7 % 32.6 % Concent (32.0-36.0) (32.0-36.0) Red Cell Distribution Width 14.5 % 14.7 % (11.6-17.2) (11.6-17.2) Platelet Count 218 TH/MM3 170 TH/MM3 (150-450) (150-450) Mean Platelet Volume 8.2 FL 7.9 FL (7.0-11.0) (7.0-11.0) Neutrophils (%) (Auto) 78.9 % 80.6 % (16.0-70.0) (16.0-70.0) Lymphocytes (%) (Auto) 15.0 % 12.7 % (9.0-44.0) (9.0-44.0) Monocytes (%) (Auto) 4.3 % (0.0-8.0) 3.2 % (0.0-8.0) Eosinophils (%) (Auto) 1.7 % (0.0-4.0) 3.1 % (0.0-4.0) Basophils (%) (Auto) 0.1 % (0.0-2.0) 0.4 % (0.0-2.0) Neutrophils # (Auto) 10.8 TH/MM3 8.9 TH/MM3 (1.8-7.7) (1.8-7.7) Lymphocytes # (Auto) 2.1 TH/MM3 1.4 TH/MM3 (1.0-4.8) (1.0-4.8) Monocytes # (Auto) 0.6 TH/MM3 0.4 TH/MM3 (0-0.9) (0-0.9) Eosinophils # (Auto) 0.2 TH/MM3 0.3 TH/MM3 (0-0.4) (0-0.4) Basophils # (Auto) 0.0 TH/MM3 0.0 TH/MM3 (0-0.2) (0-0.2) CBC Comment DIFF FINAL DIFF FINAL Differential Comment Sodium Level 156 MEQ/L 152 MEQ/L (136-145) (136-145) Potassium Level 3.0 MEQ/L 3.3 MEQ/L (3.5-5.1) (3.5-5.1) Chloride Level 121 MEQ/L 119 MEQ/L (98-107) (98-107) Carbon Dioxide Level 27.6 MEQ/L 22.8 MEQ/L (21.0-32.0) (21.0-32.0) Anion Gap 7 MEQ/L (5-15) 10 MEQ/L (5-15) Blood Urea Nitrogen 26 MG/DL (7-18) 19 MG/DL (7-18) Creatinine 0.94 MG/DL 0.94 MG/DL (0.60-1.30) (0.60-1.30) Estimat Glomerular Filtration 97 ML/MIN (>89) 97 ML/MIN (>89) Rate Random Glucose 119 MG/DL 112 MG/DL (74-106) (74-106) Calcium Level 8.1 MG/DL 7.7 MG/DL (8.5-10.1) (8.5-10.1) Total Bilirubin 0.5 MG/DL (0.2-1.0) Aspartate Amino Transf 23 U/L (15-37) (AST/SGOT) Alanine Aminotransferase 19 U/L (12-78) (ALT/SGPT) Alkaline Phosphatase 81 U/L (45-117) Total Protein 6.1 GM/DL (6.4-8.2) Albumin 1.9 GM/DL (3.4-5.0) Blood Type O NEGATIVE O NEGATIVE Antibody Screen NEGATIVE Crossmatch Leukocyte-Reduced Leukocyte-Reduced Red Blood Red Blood Cells Cells Blood Bank Comment Test 10/25/16 04:20 White Blood Count 15.5 TH/MM3 (4.0-11.0) Red Blood Count 2.79 MIL/MM3 (4.50-5.90) Hemoglobin 8.2 GM/DL (13.0-17.0) Hematocrit 24.0 % (39.0-51.0) Mean Corpuscular Volume 86.0 FL (80.0-100.0) Mean Corpuscular Hemoglobin 29.3 PG (27.0-34.0) Mean Corpuscular Hemoglobin 34.0 % Concent (32.0-36.0) Red Cell Distribution Width 15.3 % (11.6-17.2) Platelet Count 219 TH/MM3 (150-450) Mean Platelet Volume 8.2 FL (7.0-11.0) Neutrophils (%) (Auto) 79.3 % (16.0-70.0) Lymphocytes (%) (Auto) 11.4 % (9.0-44.0) Monocytes (%) (Auto) 3.5 % (0.0-8.0) Eosinophils (%) (Auto) 5.2 % (0.0-4.0) Basophils (%) (Auto) 0.6 % (0.0-2.0) Neutrophils # (Auto) 12.3 TH/MM3 (1.8-7.7) Lymphocytes # (Auto) 1.8 TH/MM3 (1.0-4.8) Monocytes # (Auto) 0.5 TH/MM3 (0-0.9) Eosinophils # (Auto) 0.8 TH/MM3 (0-0.4) Basophils # (Auto) 0.1 TH/MM3 (0-0.2) CBC Comment DIFF FINAL Differential Comment Sodium Level 148 MEQ/L (136-145) Potassium Level 3.2 MEQ/L (3.5-5.1) Chloride Level 115 MEQ/L (98-107) Carbon Dioxide Level 26.4 MEQ/L (21.0-32.0) Anion Gap 7 MEQ/L (5-15) Blood Urea Nitrogen 21 MG/DL (7-18) Creatinine 1.06 MG/DL (0.60-1.30) Estimat Glomerular Filtration 84 ML/MIN (>89) Rate Random Glucose 123 MG/DL (74-106) Calcium Level 8.2 MG/DL (8.5-10.1) Magnesium Level 2.1 MG/DL (1.5-2.5) Total Bilirubin 0.6 MG/DL (0.2-1.0) Aspartate Amino Transf 17 U/L (15-37) (AST/SGOT) Alanine Aminotransferase 15 U/L (12-78) (ALT/SGPT) Alkaline Phosphatase 65 U/L (45-117) Total Protein 6.6 GM/DL (6.4-8.2) Albumin 2.2 GM/DL (3.4-5.0) Result Diagram: 10/25/1641910/25/16419 Microbiology Microbiology Date/Time Procedure Status Source Growth 10/24/16 11:40 Gram Stain - Final Resulted Sputum Endotracheal 10/24/16 11:40 Sputum Culture Resulted Sputum Endotracheal Pending Imaging Last Impressions Chest X-Ray 10/25/16599 Signed Impressions: Service Date/Time: October 04:41 - CONCLUSION: Mild improvement in aeration of right midlung, however otherwise not significantly changed. Angela Basilio MD Brain MRI 10/25/16599 Signed Impressions: Service Date/Time: October 08:23 - CONCLUSION: 1. Continued large areas of abnormal contrast enhancement with surrounding edema involving the right temporal parietal cortex, the watershed distribution posteriorly on the left and patchy areas within the high cortices as well as the right cerebellar hemisphere. These have minimally decreased in size compared to previous. The overall amount of fluid associated with the lesions has decreased as well. Findings would suggest mild interval improvement compared to previous. There is decreasing right to left falcine shift. The amount of hemorrhage associated with these areas is stable. No new areas of hemorrhage are seen. Cody Coello MD Head CT 6/12/17 0600 Signed Impressions: Service Date/Time: Saturday, October 22, 2016 04:14 - CONCLUSION: There is slight improvement in the degree of hemorrhage within the right temporal lobe, however surrounding vasogenic edema has not changed and the rest of the examination has not significantly changed. Angela Basilio MD Renal Ultrasound 09/30/16 0000 Signed Impressions: Service Date/Time: Friday, September 30, 2016 18:45 - CONCLUSION: Ultrasound appearance of the kidneys within normal limits. Carrera catheter in the urinary bladder. Nonspecific splenomegaly incidentally noted. Michael Freitas MD Head Magnetic Resonance Angiography 09/30/16 0000 Signed Impressions: Service Date/Time: Friday, September 30, 2016 17:42 - CONCLUSION: No occlusion, aneurysm or other acute intracranial vascular abnormality demonstrated. Michael Freitas MD Procedures 09/30left subclavian central line, left radial arterial line 6/2-right subclavian central line 6/5-tracheostomy, bronchoscopy Assessment and Plan Disease Oriented Problem List: (1) Intracranial hemorrhage (2) Sepsis (3) Elevated troponin (4) Subarachnoid hemorrhage (5) Cerebral edema (6) Metabolic encephalopathy (7) Acute respiratory failure with hypoxia (8) Septic shock due to Staphylococcus aureus (9) Rash and nonspecific skin eruption (10) Substance abuse Symptom Scale: (1) Dyspnea 0-10 Scale: Unable to quantify (2) Encephalopathy 0-10 Scale: Unable to quantify (3) Agitation 0-10 Scale: Unable to quantify (4) Constipation 0-10 Scale: Unable to quantify Pertinent Non-Medical Issues Psychosocial:originally from [place], lived in [place] since . education. Was incarcerated and then in drug rehabilitation in [facility]. 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 Father (parents ) lived in [place] with support from family there. Supported by local friends, coworkers, apartment landlord. Spiritual:believes in God, no particular affiliation. 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 Legal: Patient is not able to participate in decision-making due to clinical condition. He is not . Per [place] statutes his parents would be legal decision makers, mother is serving as primary supported by his sister and father. She reports she has POA paperwork. Ethical issues impacting care: Important Contacts mother Felicita Roberts [phone] (HCP) sister Elizabeth Rios [phone] father Pradeep Rios [phone] . 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 Severe aortic regurgitation and possible leaflet perforation, CV consult is pending. He additionally developed small area of brain hemorrhage. He remains critically ill. Possible he can recover with prolonged resuscitation , prolonged ICU course. Remains very high risk for further complications and setbacks though possible he can survive this initial injury/illness. Code Status: Full Code Plan * Legal decision maker: Patient is not able to participate in decision-making due to clinical condition. He is not . Per [place] statutes his parents would be legal decision makers, mother is serving as primary supported by his sister and father. She reports she has POA paperwork. (palliative SW reviewed and indicates that it does not include medical decision-making) [ patient sister Anay providing support to patient mother and assists her with decision making.] * Goals: Ongoing meetings with patient family, daily or as needed. Patient sister appears to have a reasonable understanding of conditions, prognosis. Patient mother appears to have a very simple understanding of conditions and prognosis. Father also seems to have a very simple understanding of conditions and prognosis. Goals remain aggressive, Patient's mother is hoping for a miracle and wants to continue whatever measures available to help patient recover. They are open to ongoing to conversations as clinical course evolves. Sister Anay continues to support mother and father with updates and decision making, mother makes brief visits but too upsetting for her to stay for long periods. She will be leaving to return to work and her home in [place] this week, requests daily updates from Palliative during the week if possible. * CODE STATUS: full SYMPTOMS: * Dyspnea- intubated for AMS. Status post tracheostomy. CXR w/ slight pulmonary edema yesterday. +Enterobacter bronchial washing,on levaquin. Today breathing comfortably on T piece. T piece during the day (has been on x 24 hr) , pressure support at night if needed. * Agitation- hx substance abuse; hx ADD, on adderall.+embolic CVA,+hemorrhage. Has required significant sedatives during hospital course. Some improvement; now on methadone uptitrated per critical care, fentanyl weaned off today, More awake and with less ongoing agitation, though today again increased, vice president of development to add Precedex. * Encephalopathy- multifactorial-- +sepsis, embolic CVA, + hemorrhage, hx substance abuse, EEG neg seizure ; repeat CT brain 10/16, MRI 10/17. Neurosurgery continues to follow, notes patient has approximately 8mm of midline shift on the most recent MRI, but his mental status is improving. Continue supportive treatment, follow-up CT scans, neuro assessments. Most recent CT brain 10/22 appear stable no new findings. Neuro status slowly improving tolerating slight weaning of sedatives. * Constipation -resolved. Now having frequent loose BMs, after several doses of laxatives. +colace scheduled. other bowel pharmaceuticals are prn. Palliative care will continue to follow during hospital course as condition evolves, to assist patient/decision-maker with understanding of medical conditions, weighing benefits/burdens of treatment options, for clarification of goals of treatment. Additionally will assist with any symptoms of palliative concern. . Sandy Liu Oct 25, 2016 10:36
--- NOTE | 2016-10-25 12:45 | HHI.CCPN ---
Subjective Remarks/Hospital Course Hospital Course: This is a 26yM who presents to the ED for altered mental status. On arrival, the patient was obtunded and emergently intubated. His roommate is with him and cannot provide much medical history. The remainder of the history is per EMS and ER documentation and my discussion with the ER physician. Per EMS and ED reports, patient was seen approximately 10 days prior to admission by an unknown physician in the clinic and given antibiotic for fever. After taking the antibiotic, the patient had a new red rash on his hands and healing on his feet. He he was seen in the emergency department 2 days prior to admission for low-grade fever and congestion, generalized weakness, lightheadedness. At that time she was given prescription for prednisone 40 mg daily for 5 days. The patient's landlord apparently found the patient today with altered mental status and called EMS. When EMS arrived, his GCS was 10. There is reports that the patient has a history of substance abuse and was recently in rehabilitation. I did talk to the roommate who confirms that the patient had recently gotten out of rehabilitation and was living with him. The remainder does say that he does not think the patient has been taking any illicit substances recently. In the emergency department, the patient was hypotensive, tachycardic. His head CT is significant for significant areas of infarction in the right frontal , temporal, and cerebellar regions as well as a small area of subarachnoid hemorrhage in the superior right parietal region. Patient has early 3 mm of midline shift as well as effacement on the right. Patient's laboratory data is significant for white blood cell count of 19,000, hemoglobin of 9.9, lactate of 3.7, creatinine 1.69, CK 372, troponin of 11.9. His urine drug screen is positive for opiates and amphetamines. I performed a bedside critical care ultrasound which demonstrated hyperdynamic left ventricular function and what appears to be aortic valve vegetations and I measured to be proximally 0.9 x 8.8 cm. This is associated with what appears to be severe aortic regurgitation. There is no pericardial effusion. Right ventricular function is preserved. A formal echo has been ordered to confirm these findings. Critical care medicine has been consulted to evaluate and manage his shock, altered mental status, multiple areas of infarction, and subarachnoid hemorrhage. Subjective: 10/01: seen and examined around 06:30am. patient on norepinephrine at 6 mcg/min , persistently in shock. patient localizes to pain x [address] extremities. repeat interval head CT with 4mm midline shift. echo with significant aortic valve vegetations and moderate aortic insufficiency. 10/02: now following commands intermittently on the RUE, still localizing in LUE , BLE. off vasopressors this morning. cultures growing staph, sensitivities to follow. 10/03: tachycardic overnight. off vasopressors this morning. not following commands this morning. still persistently febrile and wbc uptrended to 20k. 10/04: still encephalopathic. EEG negative for seizure activity. received 1 trial dose of oxacillin yesterday without evidence of allergic reaction. will let ID guide this therapy, but safe from a critical care standpoint to pursue oxacillin therapy. cultures persistently positive and wbc uptrending. still febrile. 10/05: persistent encephalopathy. but now briskly purposeful x 4. now on oxacillin. discussed with ID, and will plan to start gent induction. wbc downtrending today. still febrile. will continue surveilance cultures q48h until 2 sets negative. 10/06: neuro exam unchanged. still purposeful. blood cultures negative x 24h. will re-draw today. still persists on 1mcg/min levophed, though this has also slightly improved from yesterday. 10/07: neuro exam stable. very agitated, not following commands. blood cultures negative x 48h. off levophed. 10/08: neuro exam stable. CT with increased midline shift and persistent edema, particularly right side. back on levophed. febrile. wbc stable. 10/09: sodium not at goal, likely due to normal renal function. follows commands in the RUE, which is new. spontaneously moves BLE, LUE. wbc downtrending. hgb 7 this AM, but no other signs of end-organ damage from low o2 delivery. 10/10 failed to SBT today due to rapid shallow breathing also tachycardia. Patient found to have a significant anemia below 7 will transfuse and reattempt SBT later today 10/11: Flash pulmonary edema today requiring sedation protocol and vent manipulations. Hypoxemia to 70s. 10/12: Some improvement in gas exchange after heavy sedation and relaxant. 10/13: Tmax 100.3, requiring high dose sedation. 10/14: Leukocytosis resolving. Still way ahead on free water - increase diuretics. Prealbumin 17, adjust TFs accordingly. 10/15: deeply sedated s/p severe agitation from prior causing pulmonary edema and hypoxia. talked with family at length, not clinically improving on pathway, will require tracheostomy and PEG tube for further improvements. also still significantly + on volume. still on vasopressors, but does not clinically appear to be in significant shock. 10/16: CT scan today with new hemorrhage into right temporal stroke area with 9mm midline shift. neurosurgery aware. no significant improvements in neurologic exam. repeat echo pending. 10/17: Neuro exam remains unchanged. Per Dr. Michelle CT from 10/16/16 showed small amount of new hemorrhage circumferentially along the area of the previous right temporal infarct. There is increased right temporal edema and mass effect but relatively focal primarily along the ventricle, and there is not significant compression along the brainstem or cisterns. Continued medical management, increased Na 145-150. Neuro exam remains unchanged Tmax 100.3, white count increased to 14.3. Enterobacter in BAL 10/15, start Levofloxacin 10/18 MRI shows multiple brain abscesses bilaterally. Large R sided stroke with midline shift 7.[address] Michelle will review images. ID feels oxacillin sufficient. Clinically neuro slightly improved. Spontaneous eye opening moves right upper and lower extremities spontaneously. (Mother states he squeezes hand to command) 10/19: Neuro exam slowly improving, squeezes with both hands. WBC count improved. Intermittently requiring Levophed. Remains tachycardic. Start scheduled metoprolol, start scheduled methadone to reduce fentanyl requirement 10/20 stable overnight, continue methadone and attempt to reduce fentanyl 10/21 will adjust methadone dose recommendation for detoxification off opiate addiction 10/22: Received Ativan overnight for agitation, now sedated moving all extremities spontaneously. Sodium 153. Urine output is adequate. Chest x-ray shows mild pulmonary edema 10/23: Getting 2 units PRBC for Hb 6.9. Intermittently agitated, with tachycardia. Fever up to 103 today. We'll discuss with ID. We'll change central line. For agitation will attempt to use Precedex again. I discussed with Dr. Cartagena who was the drapery cutter machine while patient had agitation and pulmonary edema while on Precedex. It is clear to me and Dr. Cartagena that it was not an adverse reaction but agitation related to rapid tapering of his sedation and using Precedex alone at that time 10/24: Placed back on ventilator today for hypoxemic respiratory failure, chest x -ray showing florid pulmonary edema. I was emergently called to the room today hypoxemic tachypneic breathing and 50s. Large amount of copious frothy blood- tinged secretions from the trach most likely secondary to severe pulmonary edema. Neuromuscular paralysis given for ventilator synchrony. Required aggressive suctioning and bag and mask ventilation for long time before stabilization. Planning for bronchoscopy to rule out any injury to bronchial tree or trach site bleeding. Pulmonary edema is secondary to severe AI 10/25: 6 critically ill but stable ventilatory support. Heavily sedated for ventilator synchrony. Chest x-ray shows pulmonary edema with interval improvement. MRI of the brain shows stable to slightly improved lesions and stroke no new hemorrhages Objective Vital Signs Date Time Temp Pulse Resp B/P Pulse Ox O2 Delivery O2 Flow Rate FiO2 10/25/16 07:55 99 10/25/16 07:00 Mechanical Ventilator 50 10/25/16 06:00 102 10/25/16 04:00 101.1 21 115/54 10/23/16 21:30 10.00 Intake and Output 10/24/16 10/24/16 10/25/16 08:00 16:00 00:00 Intake Total 864 ml 1608 ml 1658 ml Output Total 550 ml 1650 ml 1060 ml Balance 314 ml -42 ml 598 ml Result Diagram: 10/25/16 0420 10/25/16 0420 Imaging Last Impressions Head CT 09/30/16 0413 Signed Impressions: Service Date/Time: Friday, September 30, 2016 16:31 - CONCLUSION: Noncontrast CT findings of concern for multiple intra-axial masses. There is small acute subarachnoid blood present and about 3 mm of leftward midline shift. MRI of the brain with and without contrast recommended. Michael Freitas MD Chest X-Ray 09/30/16 8846 Signed Impressions: Service Date/Time: Friday, September 30, 2016 15:23 - CONCLUSION: No acute cardiopulmonary disease demonstrated. Appropriate endotracheal tube tip position. Nasogastric tube courses into the stomach, tip not included on the study. Michael Freitas MD Objective Remarks GENERAL: Young male, lying in bed, critically ill, sedated on the vent HEENT: Pupils equal, sluggishly reactive. Mucous membranes moist. NECK: No JVD. Trachea midline. Trach with minimal bloody secretions CHEST:Bilateral course crackles and wheezes, but improved exam compared to yesterday CARDIOVASCULAR: S1-S2 normal. + JVD. Early Diastolic murmur Grade 3 best heard LSB ABDOMEN: Soft, nontender, nondistended. No guarding. MUSCULOSKELETAL: Rash on feet has improved. No peripheral edema. Distal pulses 2+. NEUROLOGICAL: Intubated and heavily sedated for ventilator synchrony and hypoxia. Moves all extremities on sedation hold. 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 Has hemorrhagic conversion and midline shift. MRI 10/18 multiple brain abscesses. Continue with supportive care. Remains critically ill at this time, took a turn for the worse with severe pulmonary edema and acute hypoxemic respiratory failure back on full mechanical ventilation Plan by systems: Neurologic: Multiple acute septic CVAs, brain abscesses Cerebral edema, Midline shift, 9 mm Small subarachnoid hemorrhage Right temporal hemorrhagic conversion Metabolic encephalopathy Agitated Delirium --MRI 10/18 shows multiple brain abscesses bilaterally. Large R sided stroke with midline shift 7.[address] Michelle recommends continued medical management --MRI today 10/25/16 stable to slightly improved --CT head 10/22: Slight improvement in right temporal hemorrhage with persistent vasogenic edema. Midline shift appears improved on my review --Continue hyperosmolar therapy, as needed --Use PRN Ativan and fentanyl for agitation. --Currently back on full sedation with propofol and fentanyl for ventilator synchrony. Hold Ativan, Hold methadone --Haldol 5mg iv q6-place on hold --Keppra for seizure prophylaxis, patient with multiple brain abscesses --s/p failed trial of Seroquel. melatonin to assist with sleep/wake cycles Respiratory: Acute hypoxic and hypercarbic respiratory failure Severe pulmonary edema ACV PEEP 12, FiO2 40% --Vent bundle, head of bed 30 --Bronchoscopy 10/24/16 was essentially normal except for some pink frothy secretions suggestive of pulmonary edema Wean FiO2 for goal SPO2 greater than 90% --s/p trach 10/[address] Dominguez/Osiel Cardiovascular: Aortic valve endocarditis Severe aortic insufficiency, with probable AV perforation Persistent tachycardia Hypotension Severe pulmonary edema from severe AI, back on vent 10/24 --Levophed to keep MAP >65 --ABX as described below 2d echo 10/01: aortic valve vegetations, moderate AI. Echo 10/17 Sev AI, probable AV perforation --CTS consulted, Dr. Velazquez was to evaluate for Mini AVR if neuro status improves (check repeat MRI) -Neuro status had improved and patient was off the ventilator but developed pulmonary edema requiring mechanical ventilation --Will discuss with Dr. Velazquez about considering aortic valve replacement again --Scheduled metoprolol 12.5 mg every 8 hours for HR control-hold due to hypotension Renal: Acute kidney injury- resolved. Jerez for accurate I's and O's --Strict I/Os FEN/GI: Hypermagnesemia Metabolic Alkalosis Acute protein calorie malnutritionmild Elevated LFTs Intravascular Volume Overload Jevity 1.5, nutrition consult- on hold --Dulcolax PRN Daily BMP --s/p Lasix 40mg iv q12h DCd 10/19/16. Started back on Bumex and IV albumin on --s/p Diamox 500mg iv q8h x 3 doses completed . Heme/ID: Infective endocarditis with embolic complications and severe aortic insufficiency Septic shock- resolved Anemia, likely secondary to hemolysis from valvulopathy New fever 10/01 blood cultures: MSSA --10/01 sputum culture: MSSA --10/02 blood cultures: MSSA --10/03 blood cultures: MSSA --10/04 bl cx: MSSA --10/05 bl cx: NGTD --10/06 bl cx: NGTD --10/15 Enterobacter in BAL --10/16 blood culture coag negative staph probable contamination --10/21 sputum Enterobacter --10/21 blood no growth --10/21 urine corynebacterium --10/23 blood urine and sputum sent --changed central line 10/23 vancomycin, flagyl d/cd 10/02. --oxacillin started 10/02-DCd 10/18 -- Currenlty on nafcillin started by ID 10/18/16,-Levofloxacin to cover Enterobacter 10/17 and Cefepime 10/23 --gentamicin induction therapy per ID. started 10/05, d/c'd Infectious disease following: Dontfraid, --Give single dose of vanc 10/23 --getting 2U PRBC 10/23, 1U PRBC 10/24 Endocrine: Hyperglycemia of critical illness -- SSI, every 6 hours, medium scale TSH 0.16, free T4 1.07, T3 < 0.5: likely sick euthyroid. Prophylaxis: --GI Prophylaxis Protonix IV DVT Prophylaxis -- SCDs Holding pharmacologic DVT prophylaxis in the setting of cerebral hemorrhage, multiple brain abscesses,anemia Lines: --09/30 left SC TLC d/c. --New right SCV CVL placed 10/12. DCd 10/23 --New L subclavian placed 10/23 --Jerez Critical Care: The total critical care time was 45 minutes. Time to perform other separately billable procedures was not included in the critical care time. Mary Rodriguez MD Oct 25, 2016 12:45
--- NOTE | 2016-10-25 12:55 | HHI.IDPN ---
Note Infectious Disease Note Patient on the vent. Sedated heavily. Temp up to 102. Now on 6 mcg of Levophed. Trach - placed 10/15. Peg placed 10/17. Repeat TTE 10/16 noted - apparent perforation of aortic valve leaflet. severe aortic regurg. Sputum - Bronch washing 10/15 has Enterobacter. Sputum endotracheal - 10/16 - gram neg derrick. Sputum 10/21 - gran neg derrick. Blood cultures 09/30 Staph aureus in 5 of 6 bottles. Blood culture 10/02 positive. staph aureus. Blood culture 10/03 positive. staph aureus. Blood culture 10/04 positive. staph aureus. Blood culture 10/05 negative. Blood culture 10/06 negative. Blood culture 10/16 - 1 bottle with staph coag neg. Blood culture 10/21 - No growth. Patient was brought to the emergency department with altered mental status. Was evaluated for rash at preceding ED evaluation 2 days prior. PAST MEDICAL HISTORY 1. Substance abuse. The patient was in rehabilitation 1 year ago. 2. ADHD. 3. Degenerative disk disease. ALLERGIES Reportedly the patient is allergic to SULFA, PENICILLIN, TORADOL, CODEINE. ANTIBIOTICS: Nafcillin Levaquin. Cefepime. OBJECTIVE: Vital Signs Date Time Temp Pulse Resp B/P Pulse Ox O2 Delivery O2 Flow Rate FiO2 10/25/16 12:00 103 10/25/16 10:00 100 10/25/16 08:00 100 10/25/16 07:55 99 10/25/16 07:00 99 Mechanical Ventilator 50 10/25/16 06:00 102 10/25/16 04:00 50 10/25/16 04:00 101.1 96 21 115/54 98 10/25/16 04:00 103 10/25/16 03:27 98 50 10/25/16 02:00 96 10/25/16 01:29 100 50 10/25/16 00:00 91 10/25/16 00:00 50 10/25/16 00:00 100.0 91 20 103/50 98 10/24/16 22:00 94 10/24/16 21:04 96 50 10/24/16 20:00 91 10/24/16 20:00 50 10/24/16 20:00 99.9 102 20 106/53 98 10/24/16 19:00 98 Mechanical Ventilator 50 10/24/16 18:00 99 10/24/16 17:55 50 10/24/16 17:34 60 10/24/16 17:34 99 60 10/24/16 16:00 100.2 99 20 116/55 100 10/24/16 16:00 99 10/24/16 14:00 85 10/24/16 10/24/16 10/25/16 15:00 23:00 07:00 Intake Total 1608 ml 1658 ml 1376 ml Output Total 1650 ml 1060 ml 451 ml Balance -42 ml 598 ml 925 ml IV Total 1120 ml 1226 ml 869 ml Tube Feeding 78 ml 232 ml 207 ml Albumin 100 ml 100 ml Packed Cells 250 ml Tube Irrigant 60 ml Other 200 ml 200 ml Output Urine Total 1250 ml 1060 ml 450 ml Stool Total 400 ml 1 ml Laboratory Tests Test 10/24/16 10/25/16 04:05 04:20 White Blood Count 11.0 TH/MM3 15.5 TH/MM3 Red Blood Count 2.59 MIL/MM3 2.79 MIL/MM3 Hemoglobin 7.4 GM/DL 8.2 GM/DL Hematocrit 22.6 % 24.0 % Mean Corpuscular Volume 87.3 FL 86.0 FL Mean Corpuscular Hemoglobin 28.5 PG 29.3 PG Mean Corpuscular Hemoglobin 32.6 % 34.0 % Concent Red Cell Distribution Width 14.7 % 15.3 % Platelet Count 170 TH/MM3 219 TH/MM3 Mean Platelet Volume 7.9 FL 8.2 FL Neutrophils (%) (Auto) 80.6 % 79.3 % Lymphocytes (%) (Auto) 12.7 % 11.4 % Monocytes (%) (Auto) 3.2 % 3.5 % Eosinophils (%) (Auto) 3.1 % 5.2 % Basophils (%) (Auto) 0.4 % 0.6 % Neutrophils # (Auto) 8.9 TH/MM3 12.3 TH/MM3 Lymphocytes # (Auto) 1.4 TH/MM3 1.8 TH/MM3 Monocytes # (Auto) 0.4 TH/MM3 0.5 TH/MM3 Eosinophils # (Auto) 0.3 TH/MM3 0.8 TH/MM3 Basophils # (Auto) 0.0 TH/MM3 0.1 TH/MM3 CBC Comment DIFF FINAL DIFF FINAL Differential Comment Laboratory Tests Test 10/24/16 10/25/16 04:05 04:20 Sodium Level 152 MEQ/L 148 MEQ/L Potassium Level 3.3 MEQ/L 3.2 MEQ/L Chloride Level 119 MEQ/L 115 MEQ/L Carbon Dioxide Level 22.8 MEQ/L 26.4 MEQ/L Anion Gap 10 MEQ/L 7 MEQ/L Blood Urea Nitrogen 19 MG/DL 21 MG/DL Creatinine 0.94 MG/DL 1.06 MG/DL Estimat Glomerular Filtration 97 ML/MIN 84 ML/MIN Rate Random Glucose 112 MG/DL 123 MG/DL Calcium Level 7.7 MG/DL 8.2 MG/DL Magnesium Level 2.1 MG/DL Total Bilirubin 0.6 MG/DL Aspartate Amino Transf 17 U/L (AST/SGOT) Alanine Aminotransferase 15 U/L (ALT/SGPT) Alkaline Phosphatase 65 U/L Total Protein 6.6 GM/DL Albumin 2.2 GM/DL Microbiology Date/Time Procedure Status Source Growth 10/24/16 11:40 Gram Stain - Final Resulted Sputum Endotracheal 10/24/16 11:40 Sputum Culture - Preliminary Resulted Sputum Endotracheal NO GROWTH IN 24 HOURS. IMAGING: Chest X-Ray 10/24/16 0000 Signed Impressions: Service Date/Time: Monday, October 24, 2016 04:38 - CONCLUSION: Improvement in aeration of the lungs. Angela Basilio MD Head CT 10/22/16599 Signed Impressions: Service Date/Time: Saturday, October 22, 2016 04:14 - CONCLUSION: There is slight improvement in the degree of hemorrhage within the right temporal lobe, however surrounding vasogenic edema has not changed and the rest of the examination has not significantly changed. Angela Basilio MD Chest X-Ray 10/22/16599 Signed Impressions: Service Date/Time: Saturday, October 22, 2016 03:33 - CONCLUSION: Slight worsening of pulmonary edema. Angela Basilio MD Chest X-Ray 10/21/16599 Signed Impressions: Service Date/Time: Friday, October 21, 2016 04:04 - CONCLUSION: No significant change. The bibasilar pulmonary opacities are stable in appearance. Russell Mckeon MD Chest X-Ray 10/18/16599 Signed Impressions: Service Date/Time: October 04:52 - CONCLUSION: Mild infiltrate in the right lower lobe. Central line in good position. Loyd Black MD Brain MRI 10/18/16 0600 Signed Impressions: Service Date/Time: October 11:38 - CONCLUSION: 1. Grossly abnormal examination demonstrating large areas of edema with abnormal contrast enhancement in both hemispheres. There are focal rim enhancing fluid collection seen in the left posterior parietal cortex, centrally and the high left parietal cortex and in the right posterior temporal cortex. Findings would be concerning for cerebritis and abscess. 2. 7.5 mm of [id number] falcine shift. 3. Focal area of abnormal enhancement and edema within the right side of the cerebellum again concerning for cerebritis/abscess in this patient with known history of endocarditis. 4. This patient's examination has significantly worsened when compared to previous dated 09/30/16. Cody Coello MD Head CT 10/16/16 0000 Signed Impressions: Service Date/Time: Sunday, October 16, 2016 04:37 - CONCLUSION: Large area of edema in the right temporal lobe with now some central areas of hemorrhage clearly more impressive than on the , in particular the amount of hemorrhage present. I don't see drainable collection, it is more of an elongated curvilinear area. Small area stroke and edema in the medial left parietal lobe. Improvement in the lower left lateral parietal lesion with much less edema today Loyd Black MD Chest X-Ray 10/15/16 0000 Signed Impressions: Service Date/Time: Saturday, October 15, 2016 13:21 - CONCLUSION: Trach is in good position without pneumothorax. Jair Coello MD FACR PHYSICAL EXAMINATION GENERAL: Sedated. Unresponsive. HEENT: Pupils dilated. No icterus. Oropharynx: moist mucosa. NECK: No adenopathy. No swelling. Trach site without e/o infection. LUNGS: Bibasilar rhonchi persist. HEART: 2-3/6 systolic murmur at the left sternal border. Loud S1S2. No rubs or gallops. ABDOMEN: Bowel sounds are present, soft, nontender. EXTREMITIES: No clubbing or cyanosis or edema. Embolic purpuric lesions at the plantar aspect of the 4th and 5th toe on the left and the great toe on the right are resolved. No new embolic lesions. SKIN: Resolved rash. Dry peeled skin at tips of digits and soles of feet. NEURO: Sedated. PSYCH: Unable to assess. IMPRESSION 1. Septic shock due to Staph aureus. Persistent bacteremia. MSSA. Blood culture now negative reflecting clearance. 2. Acute endocarditis. [place] aortic valve. Staph aureus. 3. Acute respiratory failure. 4. Bilateral lung infiltrates, probably secondary to septic emboli. Enterobacter PNA. 5. 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 6. History of IV drug abuse. Unknown current use status. 7. Antibiotic allergies. 8. Recent drug rash. Medicines in weeks before admission: Clindamycin, Doxycycline, acyclovir, Adderral, Tylenol, prednisone, omeprazole, Ibuprofen. 9. FEVER - C. line changed. WBC elevated. Probably infection related. Corynebacterium in urine is not significant. RECOMMENDATIONS: 1. Continue Nafcillin 2 grams Q 4 hours. 2. Continue Levaquin for Pneumonia due to Enterobacter. 3. Stop Cefepime. 4. Valve replacement when feasible. 5. Monitor new cultures. 6. Monitor clinical status. 7. Monitor temp. D/W [facility]. Nemesio Jackson MD Oct 25, 2016 12:55
[2016-10-25] MEDS: ALBUMIN HUMAN 25% 25 GM/100 ML BAGP IV SCH ×2 (14:36)
--- NOTE | 2016-10-25 14:58 | HHI.NSPN ---
(Elliott Fragoso) History Chief Complaint: Trached & sedated (Elliott Fragoso) Interval History 10/01: The HPI is obtained from a review of the EMR due to the patient's altered mental status and intubation. This is a 26-year-old male who was found by his landlord on with altered mental status and called EMS. Upon arrival of EMS the patient had a GCS of 10. In the emergency department the patient was hypotensive and tachycardiac. He was emergently intubated for airway protection. His CT brain demonstrated significant areas of infarction to the right frontal, temporal and cerebellar regions as well as a small subarachnoid haemorrhage to the superior right parietal region. There was a 3 mm midline shift as well as effacement on the right. The patient's laboratory data is significant for white blood cell count of 19,000, haemoglobin of 9.9, lactate of 3.7, creatinine 1.69, CK 372, troponin of 11.9. His urine drug screen is positive for opiates and amphetamines. He was subsequently admitted to the [facility] for further management and monitoring. Per EMS and ED reports, patient was seen approximately 10 days prior to admission by an unknown physician in the clinic and given antibiotic for fever. After taking the antibiotic, the patient had a new red rash on his hands and healing on his feet. He he was seen in the emergency department 2 days prior to admission for low-grade fever and congestion, generalized weakness, lightheadedness. At that time she was given prescription for prednisone 40 mg daily for 5 days. The patient's landlord apparently found the patient today with altered mental status and called EMS. When EMS arrived, his GCS was 10. There is reports that the patient has a history of substance abuse and was recently in rehabilitation. The patient's roommate confirmed to the [employer] Officer that the patient had recently been in rehabilitation due to a history of substance abuse. The roommate did not think he was doing any illicit drugs recently. 10/02: The patient remains intubated & sedated. He withdraws to painful stimuli to the extremities. 10/03: The patient is sedated with propofol & fentanyl. Nursing reports that he does move the RUE mostly but will move the BLE when the sedation is off. Nursing reported no movement of the LUE. When EEG was at the bedside with the sedation down the patient became quite agitated and was kicking out. 10/04: The patient remains sedated. Nursing states he continues to be agitated when the sedation is off. A CT brain yesterday demonstrated multiple evolving infarcts. 10/05: The patient is still sedated with propofol & fentanyl. He does not appear to be responding to verbal commands. 10/09: The patient remains sedated with propofol & fentanyl. He did open his right eye on his own as Nursing & this practitioner were talking in the room. He did withdraw on the left side to noxious stimuli. 10/11: The patient had received Nimbex prior to being seen due to fighting the vent. When seen the patient was becoming tachypneic and fighting against the vent again. His mother did say she was told he had a good night and yesterday was moving all extremities although the left upper was weaker. His CXR this morning was suggestive of infiltrates in layering effusions. The [employer] Officer felt the patient was in flash pulmonary edema. 10/16: The patient is trached and sedated when seen this morning. He did have a CT brain this morning which demonstrated increased edema and new haemorrhage to the right temporal lobe. No drainable collection was identified. A small stroke with edema was also noted to the medial left parietal lobe. The lower left parietal lesion and edema had improved. He had trace movement of the LUE & BLE to noxious stimuli. 10/18: The patient is trached and sedated. He does withdraw to varying degrees to noxious stimuli and does open his eyes as well. 10/23: The patient remains trached. He is awake, alert and appears agitated. He is attempting to sit up in the bed and has soft wrist restraints on. Blood is noted on the counter in his room when seen. His haemoglobin was 6.9 this morning. 10/25: The patient was seen with Dr Michelle this morning and was awake and attempting to sit up. He did squeeze with his right hand to command. Shortly after that the patient went for an MRI brain which demonstrated mild improvement with the haemorrhage appearing stable. This afternoon when seen the patient is sedated on propofol due to agitation and is back on the vent. ( Elliott Fragoso) System Review Comments Unable to obtain ROS due to patient's mental status and being trached & sedated. (Elliott Fragoso) Exam Results Vital Signs Date Time Temp Pulse Resp B/P Pulse Ox O2 Delivery O2 Flow Rate FiO2 10/25/16 12:00 103 10/25/16 12:00 99.7 20 106/50 100 10/25/16 12:00 50 10/25/16 07:00 Mechanical Ventilator 10/23/16 21:30 10.00 Intake and Output 10/24/16 10/24/16 10/25/16 08:00 16:00 00:00 Intake Total 864 ml 1608 ml 1658 ml Output Total 550 ml 1650 ml 1060 ml Balance 314 ml -42 ml 598 ml (Elliott Fragoso) Physical Examination GENERAL: Patient sedated on propofol but opened his eyes to verbal stimuli. HEENT: Normocephalic, atraumatic. CHEST: CTAB w/o W/R/R, equal excursion, nonlaboured, trached and on vent. CARDIOVASCULAR: S1S2 w/RRR w/o M/G/R, radial & pedal pulses 2+ bilaterally, cap refill < 2 sec. Monitor is sinus rhythm to sinus tachycardia (96 to 103) w/o any ectopy noted. ABDOMEN: Abdomen soft, nontender, positive bowel sounds, PEG tub w/enteral feeds. MUSCULOSKELETAL: No movement of extremities due to sedation. No deformity or clubbing noted. INTEGUMENTARY: The tip of the right great toe with evolving necrotic area. Continued desquamation of feet and hands. NEUROLOGICAL: Trached & sedated on propofol. Partial eye opening to verbal stimuli. Facial grimace & eye opening to noxious stimuli to nailbeds but no movement. This morning he did squeeze Dr Michelle's hand to command. (Elliott Fragoso) Lab, Micro, Other Results Allergies Coded Allergies Type Severity Reaction Last Updated Verified Hydrocodone Allergy Unknown Nausea/Vomiting 10/04/16 Yes Sulfa Allergy Unknown 09/30/16 Yes Toradol Allergy Unknown 09/30/16 Yes Recent Impressions Chest X-Ray 10/25/16 0600 Signed Impressions: Service Date/Time: October 04:41 - CONCLUSION: Mild improvement in aeration of right midlung, however otherwise not significantly changed. Angela Basilio MD Brain MRI 10/25/16 0600 Signed Impressions: Service Date/Time: October 08:23 - CONCLUSION: 1. Continued large areas of abnormal contrast enhancement with surrounding edema involving the right temporal parietal cortex, the watershed distribution posteriorly on the left and patchy areas within the high cortices as well as the right cerebellar hemisphere. These have minimally decreased in size compared to previous. The overall amount of fluid associated with the lesions has decreased as well. Findings would suggest mild interval improvement compared to previous. There is decreasing right to left falcine shift. The amount of hemorrhage associated with these areas is stable. No new areas of hemorrhage are seen. Cody Coello MD Chest X-Ray 10/24/16 0000 Signed Impressions: Service Date/Time: Monday, October 24, 2016 04:38 - CONCLUSION: Improvement in aeration of the lungs. Angela Basilio MD Chest X-Ray 10/23/16 0000 Signed Impressions: Service Date/Time: Sunday, October 23, 2016 14:20 - CONCLUSION: Generalized airspace disease with significant progression since the prior day. New left subclavian central venous catheter which is in good position. No evidence of pneumothorax. Yayo Banda MD /////// 06:00 18:00 06:00 18:00 06:00 18:00 Intake Total 570 ml 1387 ml 2818 ml 1608 ml 3034 ml Output Total 1550 ml 1850 ml 1440 ml 1650 ml 1511 ml Balance -980 ml -463 ml 1378 ml -42 ml 1523 ml Intake Oral 0 ml IV Total 348 ml 902 ml 1794 ml 1120 ml 2095 ml Tube Feeding 222 ml 235 ml 424 ml 78 ml 439 ml Albumin 100 ml 100 ml Packed Cells 250 ml 250 ml Tube Irrigant 60 ml Other 600 ml 400 ml Output Urine Total 750 ml 1650 ml 1440 ml 1250 ml 1510 ml Stool Total 800 ml 200 ml 0 ml 400 ml 1 ml Laboratory Tests Test 6/13/10/23/16 10/24/16 10/24/16 02:45 04:09 04:05 09:52 White Blood Count 13.7 TH/MM3 11.0 TH/MM3 Red Blood Count 2.37 MIL/MM3 2.59 MIL/MM3 Hemoglobin 6.9 GM/DL 7.4 GM/DL Hematocrit 20.6 % 22.6 % Mean Corpuscular Volume 86.7 FL 87.3 FL Mean Corpuscular Hemoglobin 29.2 PG 28.5 PG Mean Corpuscular Hemoglobin 33.7 % 32.6 % Concent Red Cell Distribution Width 14.5 % 14.7 % Platelet Count 218 TH/MM3 170 TH/MM3 Mean Platelet Volume 8.2 FL 7.9 FL Neutrophils (%) (Auto) 78.9 % 80.6 % Lymphocytes (%) (Auto) 15.0 % 12.7 % Monocytes (%) (Auto) 4.3 % 3.2 % Eosinophils (%) (Auto) 1.7 % 3.1 % Basophils (%) (Auto) 0.1 % 0.4 % Neutrophils # (Auto) 10.8 TH/MM3 8.9 TH/MM3 Lymphocytes # (Auto) 2.1 TH/MM3 1.4 TH/MM3 Monocytes # (Auto) 0.6 TH/MM3 0.4 TH/MM3 Eosinophils # (Auto) 0.2 TH/MM3 0.3 TH/MM3 Basophils # (Auto) 0.0 TH/MM3 0.0 TH/MM3 CBC Comment DIFF FINAL DIFF FINAL Differential Comment Sodium Level 156 MEQ/L 152 MEQ/L Potassium Level 3.0 MEQ/L 3.3 MEQ/L Chloride Level 121 MEQ/L 119 MEQ/L Carbon Dioxide Level 27.6 MEQ/L 22.8 MEQ/L Anion Gap 7 MEQ/L 10 MEQ/L Blood Urea Nitrogen 26 MG/DL 19 MG/DL Creatinine 0.94 MG/DL 0.94 MG/DL Estimat Glomerular Filtration 97 ML/MIN 97 ML/MIN Rate Random Glucose 119 MG/DL 112 MG/DL Calcium Level 8.1 MG/DL 7.7 MG/DL Total Bilirubin 0.5 MG/DL Aspartate Amino Transf 23 U/L (AST/SGOT) Alanine Aminotransferase 19 U/L (ALT/SGPT) Alkaline Phosphatase 81 U/L Total Protein 6.1 GM/DL Albumin 1.9 GM/DL Blood Type O NEGATIVE O NEGATIVE Antibody Screen NEGATIVE Crossmatch Leukocyte-Reduced Leukocyte-Reduced Red Blood Red Blood Cells Cells Blood Bank Comment Test 10/25/16 04:20 White Blood Count 15.5 TH/MM3 Red Blood Count 2.79 MIL/MM3 Hemoglobin 8.2 GM/DL Hematocrit 24.0 % Mean Corpuscular Volume 86.0 FL Mean Corpuscular Hemoglobin 29.3 PG Mean Corpuscular Hemoglobin 34.0 % Concent Red Cell Distribution Width 15.3 % Platelet Count 219 TH/MM3 Mean Platelet Volume 8.2 FL Neutrophils (%) (Auto) 79.3 % Lymphocytes (%) (Auto) 11.4 % Monocytes (%) (Auto) 3.5 % Eosinophils (%) (Auto) 5.2 % Basophils (%) (Auto) 0.6 % Neutrophils # (Auto) 12.3 TH/MM3 Lymphocytes # (Auto) 1.8 TH/MM3 Monocytes # (Auto) 0.5 TH/MM3 Eosinophils # (Auto) 0.8 TH/MM3 Basophils # (Auto) 0.1 TH/MM3 CBC Comment DIFF FINAL Differential Comment Sodium Level 148 MEQ/L Potassium Level 3.2 MEQ/L Chloride Level 115 MEQ/L Carbon Dioxide Level 26.4 MEQ/L Anion Gap 7 MEQ/L Blood Urea Nitrogen 21 MG/DL Creatinine 1.06 MG/DL Estimat Glomerular Filtration 84 ML/MIN Rate Random Glucose 123 MG/DL Calcium Level 8.2 MG/DL Magnesium Level 2.1 MG/DL Total Bilirubin 0.6 MG/DL Aspartate Amino Transf 17 U/L (AST/SGOT) Alanine Aminotransferase 15 U/L (ALT/SGPT) Alkaline Phosphatase 65 U/L Total Protein 6.6 GM/DL Albumin 2.2 GM/DL Vital Signs Date Time Temp Pulse Resp B/P Pulse Ox O2 Delivery O2 Flow Rate FiO2 10/25/16 12:00 103 10/25/16 12:00 99.7 103 20 106/50 100 10/25/16 12:00 50 10/25/16 10:00 100 10/25/16 08:00 50 10/25/16 08:00 100 10/25/16 08:00 98.2 100 20 122/58 98 10/25/16 07:55 99 10/25/16 07:00 99 Mechanical Ventilator 50 10/25/16 06:00 102 10/25/16 04:00 50 10/25/16 04:00 101.1 96 21 115/54 98 10/25/16 04:00 103 10/25/16 03:27 98 50 10/25/16 02:00 96 10/25/16 01:29 100 50 10/25/16 00:00 91 10/25/16 00:00 50 10/25/16 00:00 100.0 91 20 103/50 98 10/24/16 22:00 94 10/24/16 21:04 96 50 10/24/16 20:00 91 10/24/16 20:00 50 10/24/16 20:00 99.9 102 20 106/53 98 10/24/16 19:00 98 Mechanical Ventilator 50 10/24/16 18:00 99 10/24/16 17:55 50 10/24/16 17:34 60 10/24/16 17:34 99 60 10/24/16 16:00 100.2 99 20 116/55 100 10/24/16 16:00 99 10/24/16 14:00 85 10/24/16 12:02 99 80 10/24/16 12:00 102.2 96 20 115/58 99 10/24/16 12:00 96 10/24/16 11:45 102.6 98 20 111/56 99 10/24/16 11:15 100 100 10/24/16 10:20 95 100 10/24/16 10:00 143 10/24/16 08:10 100 10/24/16 08:00 101.5 137 40 123/57 98 10/24/16 08:00 142 10/24/16 07:30 50 10/24/16 07:00 99 50 10/24/16 06:00 110 10/24/16 04:00 102 10/24/16 04:00 100.9 102 14 93/47 100 10/24/16 03:07 98 50 10/24/16 02:00 103 10/24/16 00:00 98.4 107 11 99/48 98 10/24/16 00:00 110 10/23/16 22:10 95 50 10/23/16 22:00 108 10/23/16 21:30 92 T-piece 10.00 90 10/23/16 20:00 100.8 142 38 105/55 89 10/23/16 20:00 144 10/23/16 19:00 89 T-Piece 90 10/23/16 18:00 114 10/23/16 16:00 99.1 90 22 103/55 97 10/23/16 16:00 140 10/23/16 14:00 114 10/23/16 12:00 140 10/23/16 10:00 114 10/23/16 08:00 140 10/23/16 07:00 97 T-Piece 7.00 40 10/23/16 06:15 102.7 10/23/16 06:14 102.7 10/23/16 06:10 95 T-piece 5.00 40 10/23/16 06:00 114 10/23/16 05:30 103.1 10/23/16 05:13 103.3 10/23/16 04:00 103.5 129 27 113/50 93 10/23/16 04:00 129 10/23/16 02:00 117 10/23/16 00:00 100.2 128 26 123/53 97 10/23/16 00:00 128 10/22/16 22:00 117 10/22/16 20:59 98 T-piece 40 10/22/16 20:00 101.7 125 16 107/49 98 10/22/16 20:00 125 10/22/16 19:00 100 T-Piece 7.00 40 10/22/16 18:00 130 10/22/16 16:00 40 10/22/16 16:00 99.1 128 20 118/57 99 10/22/16 16:00 128 (Elliott Fragoso) Medical Decision Making Impression and Plan Impression: Multiple acute septic CVAs Cerebral edema Small subarachnoid hemorrhage Midline shift, 3 mm Metabolic encephalopathy Septic shock Infective endocarditis CT brain demonstrates slight improvement of right temporal lobe haemorrhage w/o change in vasogenic edema, remainder of exam w/o significant change MRI brain demonstrated continued large area of abnormal contrast enhancement with surrounding edema to the right temporoparietal cortex, the watershed distribution posteriorly on the left and patchy areas w/i the high cortices as well as the right cerebellar hemisphere which have minimal decrease in size, decreased right to left falcine shift and stable haemorrhage, no new haemorrhage noted Patient with slow improvement in neurological function, following commands but not consistently Sodium 148 this morning Anemia, improved Hypokalemia Plan: Stat CT brain for any further decline in neurological status Frequent neuro checks Continue 3% saline & monitor sodium level Critical care management by [employer] Officer Antibiotics per Infectious Disease (Elliott Fragoso) Attending Statement I have personally seen and examined the patient on the date of this note. Pertinent documentation and study results have been reviewed by the undersigned. I have personally developed the treatment plan and performed medical decision making. Agree with findings, exam, and treatment plan as noted above. Discussed with patient's family in the room today prior to MRI results available. Review of the MRI of the brain 10/25/16 images reveal what appears to be mild improvement in the edema and mass effect related to the right temporal lesion. Otherwise relatively stable. There appears to be less hemorrhage surrounding the right temporal lesion. Discussed with cable television technician today. No neurosurgical intervention planned. The patient could proceed with cardiovascular surgery as indicated. Review of the literature reveals what appears to be a relatively low risk of perioperative intracranial hemorrhage with surgery and anticoagulation. (Pino Michelle MD) Elliott Fragoso Oct 25, 2016 14:58 Pino Michelle MD Oct 25, 2016 15:12
[2016-10-25] MEDS: MELATONIN 5 MG TAB PO SCH (20:31)
[2016-10-26] VITALS (15 sets, daily range): BP systolic 110–122; BP diastolic 51–57; PULSE 88–125; RESP 20; TEMP 98.6–99.5; O2SAT 100
[2016-10-26] MEDS: NAFCILLIN INJ 2,000 MG in SODIUM CHLORIDE 0.9% INJ 100 ML IV SCH ×6 (00:23→19:49)
[2016-10-26] MEDS: ALBUMIN HUMAN 25% 25 GM/100 ML BAGP IV SCH ×2 (01:00→13:51)
[2016-10-26] MEDS: PROPOFOL 1000 MG/100 ML INJ 100 ML IV SCH ×4 (01:13→21:45)
[2016-10-26] MEDS: HALOPERIDOL LACTATE 5 MG/ML AMP IV SCH ×2 (02:00→08:08)
[2016-10-26] MEDS: CHLORHEXIDINE GLUCONATE 2 % 1 PACK (2 CLOTHS) TOP SCH (03:17)
[2016-10-26] MEDS: METHADONE HCL 10 MG/10 ML ORAL SOLUTION PO SCH ×2 (03:17→08:09)
[2016-10-26] MEDS: NOREPINEPHRINE 4 MG/D5W 250 ML IV SCH ×3 (04:20→21:45)
[2016-10-26] MEDS: fentaNYL DRIP 250 ML IV SCH ×2 (04:20→13:45)
[2016-10-26] MEDS: LORazepam 1 MG TAB PO SCH (05:18)
[2016-10-26] MEDS: METOPROLOL TARTRATE 25 MG TAB PO SCH ×3 (05:19→21:32)
[2016-10-26 05:24] LABS: AUTOMATED NEUTROPHIL # 8.5 TH/MM3 (1.8-7.7); BASOPHIL # 0.1 TH/MM3 (0-0.2); BASOPHIL % 0.6 % (0.0-2.0); EOSINOPHIL # 0.5 TH/MM3 (0-0.4); EOSINOPHIL % 4.5 % (0.0-4.0); HEMATOCRIT 23.4 % (39.0-51.0); HEMO FLAGS DIFF FINAL; LYMPH % 15.6 % (9.0-44.0); LYMPHOCYTE # 1.8 TH/MM3 (1.0-4.8); MEAN CELL VOLUME 88.5 FL (80.0-100.0); MEAN CORPUSCULAR HEMOGLOBIN 29.1 PG (27.0-34.0); MEAN CORPUSCULAR HGB CONC 32.9 % (32.0-36.0); MONO % 4.3 % (0.0-8.0); PLATELET COUNT 151 TH/MM3 (150-450); RED BLOOD COUNT 2.65 MIL/MM3 (4.50-5.90); RED CELL DISTRIBUTION WIDTH 15.8 % (11.6-17.2); WHITE BLOOD COUNT 11.4 TH/MM3 (4.0-11.0)
[2016-10-26 05:44] LABS: ALT (GPT) 13 U/L (12-78); ANION GAP 5 MEQ/L (5-15); AST (GOT) 14 U/L (15-37); BICARBONATE 28.5 MEQ/L (21.0-32.0); BLOOD UREA NITROGEN 19 MG/DL (7-18); CHLORIDE 114 MEQ/L (98-107); GLOMERULAR FILTRATION RATE 97 ML/MIN (>89); MAGNESIUM 2.1 MG/DL (1.5-2.5); POTASSIUM 3.4 MEQ/L (3.5-5.1); SODIUM (NA) 147 MEQ/L (136-145)
[2016-10-26 05:46] LABS: ALKALINE PHOSPHATASE 68 U/L (45-117); TOTAL BILIRUBIN ADULT 0.7 MG/DL (0.2-1.0)
--- NOTE | 2016-10-26 06:47 | RADRPT ---
EXAM DATE/TIME: 10/26/2016 05:32 [facility] COMPARISON: CHEST SINGLE AP, October 25, 2016, 4:41. INDICATIONS : Evaluate after respiratory failure, shortness of breath. MEDICAL HISTORY : None. SURGICAL HISTORY : Tracheostomy ENCOUNTER: Subsequent ACUITY: 3 weeks PAIN SCORE: Non-responsive. LOCATION: Bilateral chest FINDINGS: The cardiac silhouette is normal in transverse diameter. A tracheostomy tube is in place in the midli ne. There is patchy alveolar disease bilaterally compatible with edema or pneumonia. There has been n o significant change when compared to the prior exam. CONCLUSION: 1. Patchy alveolar disease characteristic of edema or pneumonia. There has been no significant naik e when compared to the prior exam. Timmy Lynne MD on October 26, 2016 at 6:45 Board Certified Radiologist. This report was verified electronically.
[2016-10-26] MEDS: DOCUSATE SODIUM 100 MG/10 ML UDC G-TUBE SCH ×2 (08:00→19:49)
[2016-10-26] MEDS: levETIRAcetam 500 MG/5 ML UDC NG SCH ×2 (08:07→19:49)
[2016-10-26] MEDS: POTASSIUM CHLOR 20 MEQ PREMIX 100 ML IV PRN (08:07)
[2016-10-26] MEDS: PANTOPRAZOLE SODIUM 40 MG VIAL IV SCH (08:07)
[2016-10-26] MEDS: SODIUM CHLORIDE 0.9% FLUSH 10 ML FLUSH IV FLUSH SCH ×2 (08:08→19:49)
[2016-10-26] MEDS: BUMETANIDE INJ 1 MG/4 ML VIAL IV PUSH SCH (08:08)
[2016-10-26] MEDS: CHLORHEXIDINE 0.12% (ORAL KIT) 15 ML CUP MT SCH ×2 (08:09→19:43)
[2016-10-26] MEDS: ARTIFICIAL TEARS OPTH SOLN 15 ML BTL EACH EYE SCH ×3 (08:09→18:09)
[2016-10-26] MEDS: BENEPROTEIN POWDER 1 PACK G-TUBE SCH ×3 (08:10→18:09)
--- NOTE | 2016-10-26 09:51 | HHI.CCPN ---
Subjective Remarks/Hospital Course Hospital Course: This is a 26yM who presents to the ED for altered mental status. On arrival, the patient was obtunded and emergently intubated. His roommate is with him and cannot provide much medical history. The remainder of the history is per EMS and ER documentation and my discussion with the ER physician. Per EMS and ED reports, patient was seen approximately 10 days prior to admission by an unknown physician in the clinic and given antibiotic for fever. After taking the antibiotic, the patient had a new red rash on his hands and healing on his feet. He he was seen in the emergency department 2 days prior to admission for low-grade fever and congestion, generalized weakness, lightheadedness. At that time she was given prescription for prednisone 40 mg daily for 5 days. The patient's landlord apparently found the patient today with altered mental status and called EMS. When EMS arrived, his GCS was 10. There is reports that the patient has a history of substance abuse and was recently in rehabilitation. I did talk to the roommate who confirms that the patient had recently gotten out of rehabilitation and was living with him. The remainder does say that he does not think the patient has been taking any illicit substances recently. In the emergency department, the patient was hypotensive, tachycardic. His head CT is significant for significant areas of infarction in the right frontal , temporal, and cerebellar regions as well as a small area of subarachnoid hemorrhage in the superior right parietal region. Patient has early 3 mm of midline shift as well as effacement on the right. Patient's laboratory data is significant for white blood cell count of 19,000, hemoglobin of 9.9, lactate of 3.7, creatinine 1.69, CK 372, troponin of 11.9. His urine drug screen is positive for opiates and amphetamines. I performed a bedside critical care ultrasound which demonstrated hyperdynamic left ventricular function and what appears to be aortic valve vegetations and I measured to be proximally 0.9 x 8.8 cm. This is associated with what appears to be severe aortic regurgitation. There is no pericardial effusion. Right ventricular function is preserved. A formal echo has been ordered to confirm these findings. Critical care medicine has been consulted to evaluate and manage his shock, altered mental status, multiple areas of infarction, and subarachnoid hemorrhage. Subjective: 10/01: seen and examined around 06:30am. patient on norepinephrine at 6 mcg/min , persistently in shock. patient localizes to pain x [address] extremities. repeat interval head CT with 4mm midline shift. echo with significant aortic valve vegetations and moderate aortic insufficiency. 10/02: now following commands intermittently on the RUE, still localizing in LUE , BLE. off vasopressors this morning. cultures growing staph, sensitivities to follow. 10/03: tachycardic overnight. off vasopressors this morning. not following commands this morning. still persistently febrile and wbc uptrended to 20k. 10/04: still encephalopathic. EEG negative for seizure activity. received 1 trial dose of oxacillin yesterday without evidence of allergic reaction. will let ID guide this therapy, but safe from a critical care standpoint to pursue oxacillin therapy. cultures persistently positive and wbc uptrending. still febrile. 10/05: persistent encephalopathy. but now briskly purposeful x 4. now on oxacillin. discussed with ID, and will plan to start gent induction. wbc downtrending today. still febrile. will continue surveilance cultures q48h until 2 sets negative. 10/06: neuro exam unchanged. still purposeful. blood cultures negative x 24h. will re-draw today. still persists on 1mcg/min levophed, though this has also slightly improved from yesterday. 10/07: neuro exam stable. very agitated, not following commands. blood cultures negative x 48h. off levophed. 10/08: neuro exam stable. CT with increased midline shift and persistent edema, particularly right side. back on levophed. febrile. wbc stable. 10/09: sodium not at goal, likely due to normal renal function. follows commands in the RUE, which is new. spontaneously moves BLE, LUE. wbc downtrending. hgb 7 this AM, but no other signs of end-organ damage from low o2 delivery. 10/10 failed to SBT today due to rapid shallow breathing also tachycardia. Patient found to have a significant anemia below 7 will transfuse and reattempt SBT later today 10/11: Flash pulmonary edema today requiring sedation protocol and vent manipulations. Hypoxemia to 70s. 10/12: Some improvement in gas exchange after heavy sedation and relaxant. 10/13: Tmax 100.3, requiring high dose sedation. 10/14: Leukocytosis resolving. Still way ahead on free water - increase diuretics. Prealbumin 17, adjust TFs accordingly. 10/15: deeply sedated s/p severe agitation from prior causing pulmonary edema and hypoxia. talked with family at length, not clinically improving on pathway, will require tracheostomy and PEG tube for further improvements. also still significantly + on volume. still on vasopressors, but does not clinically appear to be in significant shock. 10/16: CT scan today with new hemorrhage into right temporal stroke area with 9mm midline shift. neurosurgery aware. no significant improvements in neurologic exam. repeat echo pending. 10/17: Neuro exam remains unchanged. Per Dr. Michelle CT from 10/16/16 showed small amount of new hemorrhage circumferentially along the area of the previous right temporal infarct. There is increased right temporal edema and mass effect but relatively focal primarily along the ventricle, and there is not significant compression along the brainstem or cisterns. Continued medical management, increased Na 145-150. Neuro exam remains unchanged Tmax 100.3, white count increased to 14.3. Enterobacter in BAL 10/15, start Levofloxacin 10/18 MRI shows multiple brain abscesses bilaterally. Large R sided stroke with midline shift 7.[address] Michelle will review images. ID feels oxacillin sufficient. Clinically neuro slightly improved. Spontaneous eye opening moves right upper and lower extremities spontaneously. (Mother states he squeezes hand to command) 10/19: Neuro exam slowly improving, squeezes with both hands. WBC count improved. Intermittently requiring Levophed. Remains tachycardic. Start scheduled metoprolol, start scheduled methadone to reduce fentanyl requirement 10/20 stable overnight, continue methadone and attempt to reduce fentanyl 10/21 will adjust methadone dose recommendation for detoxification off opiate addiction 10/22: Received Ativan overnight for agitation, now sedated moving all extremities spontaneously. Sodium 153. Urine output is adequate. Chest x-ray shows mild pulmonary edema 10/23: Getting 2 units PRBC for Hb 6.9. Intermittently agitated, with tachycardia. Fever up to 103 today. We'll discuss with ID. We'll change central line. For agitation will attempt to use Precedex again. I discussed with Dr. Cartagena who was the scarfing machine operator while patient had agitation and pulmonary edema while on Precedex. It is clear to me and Dr. Cartagena that it was not an adverse reaction but agitation related to rapid tapering of his sedation and using Precedex alone at that time 10/24: Placed back on ventilator today for hypoxemic respiratory failure, chest x -ray showing florid pulmonary edema. I was emergently called to the room today hypoxemic tachypneic breathing and 50s. Large amount of copious frothy blood- tinged secretions from the trach most likely secondary to severe pulmonary edema. Neuromuscular paralysis given for ventilator synchrony. Required aggressive suctioning and bag and mask ventilation for long time before stabilization. Planning for bronchoscopy to rule out any injury to bronchial tree or trach site bleeding. Pulmonary edema is secondary to severe AI 10/25: Remains critically ill but stable ventilatory support. Heavily sedated for ventilator synchrony. Chest x-ray shows pulmonary edema with interval improvement. MRI of the brain shows stable to slightly improved lesions and stroke no new hemorrhages 10/26: Remains intubated sedated. Discuss with cardiothoracic surgery yesterday. He is willing to perform aortic valve replacement this Saturday if cleared by neurosurgery Dr. Michelle. Dr. Michelle has documented that patient could proceed with cardiovascular surgery as indicated, and in his opinion relatively low risk of perioperative intracranial hemorrhage with surgery and anticoagulation. Family is being updated on regular basis Objective Vital Signs Date Time Temp Pulse Resp B/P Pulse Ox O2 Delivery O2 Flow Rate FiO2 10/26/16 08:47 100 40 10/26/16 04:18 20 10/26/16 04:00 98.6 89 114/56 10/25/16 19:30 Mechanical Ventilator 7.00 Intake and Output 10/25/16 10/25/16 10/26/16 08:00 16:00 00:00 Intake Total 1376 ml 1475 ml 1131 ml Output Total 451 ml 1526 ml 800 ml Balance 925 ml -51 ml 331 ml Result Diagram: 10/26/16 0500 10/26/16 0500 Other Results Microbiology Date/Time Procedure Status Source Growth 10/24/16 11:40 Gram Stain - Final Complete Sputum Endotracheal 10/24/16 11:40 Sputum Culture - Final Complete Sputum Endotracheal LIGHT GROWTH NORMAL [facility]ATORY [facility] Imaging Last Impressions Head CT 09/30/16 3473 Signed Impressions: Service Date/Time: Friday, September 30, 2016 16:31 - CONCLUSION: Noncontrast CT findings of concern for multiple intra-axial masses. There is small acute subarachnoid blood present and about 3 mm of leftward midline shift. MRI of the brain with and without contrast recommended. Michael Freitas MD Chest X-Ray 09/30/16 1453 Signed Impressions: Service Date/Time: Friday, September 30, 2016 15:23 - CONCLUSION: No acute cardiopulmonary disease demonstrated. Appropriate endotracheal tube tip position. Nasogastric tube courses into the stomach, tip not included on the study. Michael Freitas MD Objective Remarks GENERAL: Young male, lying in bed, critically ill, sedated on the vent HEENT: Pupils equal, sluggishly reactive. Mucous membranes moist. NECK: No JVD. Trachea midline. Trach with minimal bloody secretions CHEST:Bilateral course crackles and wheezes, but improved exam compared to yesterday CARDIOVASCULAR: S1-S2 normal. + JVD. Early Diastolic murmur Grade 3 best heard LSB ABDOMEN: Soft, nontender, nondistended. No guarding. MUSCULOSKELETAL: Rash on feet has improved. No peripheral edema. Distal pulses 2+. NEUROLOGICAL: Intubated and heavily sedated for ventilator synchrony and hypoxia. Moves all extremities on sedation lightening, opens eyes. 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 Has hemorrhagic conversion and midline shift. MRI 10/18 multiple brain abscesses. Continue with supportive care. Remains critically ill at this time, took a turn for the worse with severe pulmonary edema and acute hypoxemic respiratory failure back on full mechanical ventilation Plan by systems: Neurologic: Multiple acute septic CVAs, brain abscesses Cerebral edema, Midline shift, 9 mm Small subarachnoid hemorrhage Right temporal hemorrhagic conversion Metabolic encephalopathy Agitated Delirium --MRI 10/18 shows multiple brain abscesses bilaterally. Large R sided stroke with midline shift 7.[address] Michelle recommends continued medical management --MRI today 10/25/16 stable to slightly improved, abscesses. Improving cerebral edema, also improvement in the hemorrhagic conversion temporal region on the right --CT head 10/22: Slight improvement in right temporal hemorrhage with persistent vasogenic edema. Midline shift appears improved on my review --Continue hyperosmolar therapy as needed, target Na 145-150 --Propofol and fentanyl for sedation and vent synchrony, Keep RASS -2. Severe regurgitation through the patient to pulmonary edema --Hold Ativan, Hold methadone. Holf IV Haldol --Keppra for seizure prophylaxis, patient with multiple brain abscesses --s/p failed trial of Seroquel. melatonin to assist with sleep/wake cycles Respiratory: Acute hypoxic and hypercarbic respiratory failure Severe pulmonary edema ACV PEEP 12, FiO2 40%. Reduce PEEP as tolerated --Vent bundle, head of bed 30 --Bronchoscopy 10/24/16 was essentially normal except for some pink frothy secretions suggestive of pulmonary edema Wean FiO2 for goal SPO2 greater than 90% --s/p trach 10/[address] Dominguez/Osiel Cardiovascular: Aortic valve endocarditis Severe aortic insufficiency, with probable AV perforation Persistent tachycardia Hypotension Severe pulmonary edema from severe AI, back on vent 10/24 --Dr. Velazquez will perform mini AVR on Saturday10/29/16, if cleared by neurosurgery --Dr. Michelle has documented low risk for intracranial hemorrhage --Levophed to keep MAP >65 --ABX as described below 2d echo 10/01: aortic valve vegetations, moderate AI. Echo 10/17 Sev AI, probable AV perforation --CTS consulted, Dr. Velazquez was to evaluate for Mini AVR if neuro status improves (check repeat MRI) Renal: Acute kidney injury- resolved. Solitario for accurate I's and O's --Strict I/Os FEN/GI: Hypermagnesemia Metabolic Alkalosis Acute protein calorie malnutritionmild Elevated LFTs Intravascular Volume Overload Jevity 1.5, reseume --Dulcolax PRN Daily BMP --Started back on Bumex and IV albumin on 10/24/16 --s/p Lasix 40mg iv q12h DCd 10/19/16. --s/p Diamox 500mg iv q8h x 3 doses completed . Heme/ID: Infective endocarditis with embolic complications and severe aortic insufficiency Septic shock- resolved Anemia, likely secondary to hemolysis from valvulopathy New fever 10/01 blood cultures: MSSA --10/01 sputum culture: MSSA --10/02 blood cultures: MSSA --10/03 blood cultures: MSSA --10/04 bl cx: MSSA --10/05 bl cx: NGTD --10/06 bl cx: NGTD --10/15 Enterobacter in BAL --10/16 blood culture coag negative staph probable contamination --10/21 sputum Enterobacter --10/21 blood no growth --10/21 urine corynebacterium --10/24 sputum no growth --changed central line 10/23 vancomycin, flagyl d/cd 10/02. --oxacillin started 10/02-DCd 10/18 --Currenlty on nafcillin started by ID 10/18/16,-Levofloxacin to cover Enterobacter 10/17 and Cefepime 10/23 --gentamicin induction therapy per ID. started 10/05, d/c'd Infectious disease following: Dontfraid, --Give single dose of vanc 10/23 --getting 2U PRBC 10/23, 1U PRBC 10/24 Endocrine: Hyperglycemia of critical illness -- SSI, every 6 hours, medium scale TSH 0.16, free T4 1.07, T3 < 0.5: likely sick euthyroid. Prophylaxis: --GI Prophylaxis Protonix IV DVT Prophylaxis -- SCDs Holding pharmacologic DVT prophylaxis in the setting of cerebral hemorrhage, multiple brain abscesses,anemia Lines: --09/30 left SC TLC d/c. --New right SCV CVL placed 10/12. DCd 10/23 --New L subclavian placed 10/23 --Jerez Critical Care: The total critical care time was 40 minutes. Time to perform other separately billable procedures was not included in the critical care time. Discussed extensively with family 10/25/16 after I spoke with Dr. Velazquez and Dr. Michelle. Family will let Dr. Velazquez about their decision soon. It is my opinion that patient will without a valve replacement due to severe aortic regurgitation and probable perforation of the valve. He had had several episodes of flash pulmonary edema due to severe AI Mary Rodriguez MD Oct 26, 2016 09:51
[2016-10-26] MEDS: LEVOFLOXACIN 750 MG PREMIX INJ 150 ML IV SCH (09:57)
--- NOTE | 2016-10-26 11:38 | HHI.HCPN ---
Reason for visit a. To assist with evaluation and management of symptoms including:dyspnea, encephalopathy, agitation, constipation b. To assist medical decision maker(s) with: better understanding of current medical conditions; weighing benefits/burdens of medical treatment options; making medical treatment decisions. Subjective/Interval History s/p trach , PEG . CTS previously evaluated for aortic valve, no interventions at this time needs at least 4 weeks on antibiotics, at least 6 weeks out from brain hemorrhage before could consider surgical intervention. Repeat CT brain stable. Veins on mechanical vent, status post recurrent pulmonary edema requiring mechanical ventilation and sedation. Maintaining sedation without lightening to allow patient rest until possible surgery. A recent repeat MRI stable, slight improvement. CXR patchy lung Patchy alveolar disease characteristic of edema or pneumonia; no significant change. Blood culture from 10/21 negative 4 days. Sputum culture thus far normal respiratory traci. on Levaquin, nafcillin , cefepime per ID. Tmax 99.7. Critical care discussed with [facility], neurosurgery regarding proceeding with valve replacement as patient's best chance for recovery/survival. Neurosurgery has cleared, patient with minimal risk of re- hemorrhage, [facility] has agreed to proceed, tentatively scheduled for valve replacement Saturday. Tolerating tube feeds, having BMs. Seen in room no visitors present. Nursing informs that sister was scheduled to leave town yesterday but her flight was canceled so she is present today. Patient is on sedation I did not lighten however even on sedation opens eyes to touch though does not keep them open. Localizes to touch on all 4 extremities. Moving all 4 extremities spontaneously at times. Appears comfortable/restful. Nursing to notify me when family arrives. D/w RN, critical care. . Family/friend interactions later met w sister. Review of current condition, assessment and neuro recommendations re risk for possible CV surgery, and [facility] re-evaluating for possible valve replacement next week. Anay shares family feeling very optimistic but understands associated risks. They would proceed with surgery despite risks to give pt best chance for possible recovery. All questions answered. Mother has my contact information if she has additional questions. Anay remains in communication with mother, father. [ Anay was scheduled to return home to [place] yesterday, however flight was cx, she will postpone return home until after pt surgery] . Advance Directives Living Will: Never completed Health Care Surrogate: Never completed Durable Power of Pillowcase Turner: Completed, but not made available (mother reports has POA, not clear if this includes medical decision making (SW has reviewed, this does NOT include healthcare decision making) ) Objective Vital Signs Date Time Temp Pulse Resp B/P Pulse Ox O2 Delivery O2 Flow Rate FiO2 10/26/16 10:00 88 10/26/16 08:47 100 40 10/26/16 08:00 107 10/26/16 07:00 100 Mechanical Ventilator 7.00 40 10/26/16 04:22 100 40 10/26/16 04:18 20 10/26/16 04:00 40 10/26/16 04:00 98.6 89 20 114/56 100 10/26/16 00:33 100 40 10/26/16 00:00 99.1 95 20 114/57 100 10/26/16 00:00 40 10/25/16 21:14 100 40 10/25/16 20:00 40 10/25/16 20:00 98.6 108 20 114/57 100 10/25/16 19:30 Mechanical Ventilator 7.00 40 10/25/16 18:00 95 10/25/16 16:48 100 40 10/25/16 16:00 50 10/25/16 16:00 95 10/25/16 16:00 99.7 95 20 104/51 100 10/25/16 14:00 100 10/25/16 12:34 100 40 10/25/16 12:00 103 10/25/16 12:00 99.7 103 20 106/50 100 10/25/16 12:00 50 Intake & Output 10/26/16 10/26/16 07:00 19:00 Intake Total 2287 ml Output Total 1400 ml Balance 887 ml IV Total 1551 ml Tube Feeding 436 ml Other 300 ml Output Urine Total 1400 ml # Bowel Movements 2 Physical Exam CONSTITUTIONAL/GENERAL: This is an adequately nourished patient, sedated on mechanical vent TUBES/LINES/DRAINS: central line.trach, PEG, carrera catheter , SCDs , Restraints x4. SKIN: No jaundice, or lesions. Embolic purpuric lesions on LT great toe. + Improving Sloughing/peeling of skin to tips of fingers, toes CARDIOVASCULAR: regular rhythm without murmur. No peripheral edema, periph pulses palpable RESPIRATORY/CHEST: Symmetric, unlabored respirations via tracheostomy to mechanical vent. Course air movement throughout. GASTROINTESTINAL: Abdomen soft,flat, nondistended. No palpable masses. No apparent tenderness to exam. TF infusing. BS normoactive. NEUROLOGICAL: Sedated on mechanical vent. Slight eye opening to stimuli. Did not lighten for exam. Does localize to touch and move all 4 extremities in response to touch. PSYCHIATRIC: -- limited assess due to condition, sedation. Appears calm and comfortable. . . Diagnostic Tests Laboratory Laboratory Tests Test 10/24/16 10/24/16 10/25/16 10/26/16 04:05 09:52 04:20 05:00 White Blood Count 11.0 TH/MM3 15.5 TH/MM3 11.4 TH/MM3 (4.0-11.0) (4.0-11.0) (4.0-11.0) Red Blood Count 2.59 MIL/MM3 2.79 MIL/MM3 2.65 MIL/MM3 (4.50-5.90) (4.50-5.90) (4.50-5.90) Hemoglobin 7.4 GM/DL 8.2 GM/DL 7.7 GM/DL (13.0-17.0) (13.0-17.0) (13.0-17.0) Hematocrit 22.6 % 24.0 % 23.4 % (39.0-51.0) (39.0-51.0) (39.0-51.0) Mean Corpuscular Volume 87.3 FL 86.0 FL 88.5 FL (80.0-100.0) (80.0-100.0) (80.0-100.0) Mean Corpuscular Hemoglobin 28.5 PG 29.3 PG 29.1 PG (27.0-34.0) (27.0-34.0) (27.0-34.0) Mean Corpuscular Hemoglobin 32.6 % 34.0 % 32.9 % Concent (32.0-36.0) (32.0-36.0) (32.0-36.0) Red Cell Distribution Width 14.7 % 15.3 % 15.8 % (11.6-17.2) (11.6-17.2) (11.6-17.2) Platelet Count 170 TH/MM3 219 TH/MM3 151 TH/MM3 (150-450) (150-450) (150-450) Mean Platelet Volume 7.9 FL 8.2 FL 8.6 FL (7.0-11.0) (7.0-11.0) (7.0-11.0) Neutrophils (%) (Auto) 80.6 % 79.3 % 75.0 % (16.0-70.0) (16.0-70.0) (16.0-70.0) Lymphocytes (%) (Auto) 12.7 % 11.4 % 15.6 % (9.0-44.0) (9.0-44.0) (9.0-44.0) Monocytes (%) (Auto) 3.2 % (0.0-8.0) 3.5 % (0.0-8.0) 4.3 % (0.0-8.0) Eosinophils (%) (Auto) 3.1 % (0.0-4.0) 5.2 % (0.0-4.0) 4.5 % (0.0-4.0) Basophils (%) (Auto) 0.4 % (0.0-2.0) 0.6 % (0.0-2.0) 0.6 % (0.0-2.0) Neutrophils # (Auto) 8.9 TH/MM3 12.3 TH/MM3 8.5 TH/MM3 (1.8-7.7) (1.8-7.7) (1.8-7.7) Lymphocytes # (Auto) 1.4 TH/MM3 1.8 TH/MM3 1.8 TH/MM3 (1.0-4.8) (1.0-4.8) (1.0-4.8) Monocytes # (Auto) 0.4 TH/MM3 0.5 TH/MM3 0.5 TH/MM3 (0-0.9) (0-0.9) (0-0.9) Eosinophils # (Auto) 0.3 TH/MM3 0.8 TH/MM3 0.5 TH/MM3 (0-0.4) (0-0.4) (0-0.4) Basophils # (Auto) 0.0 TH/MM3 0.1 TH/MM3 0.1 TH/MM3 (0-0.2) (0-0.2) (0-0.2) CBC Comment DIFF FINAL DIFF FINAL DIFF FINAL Differential Comment Sodium Level 152 MEQ/L 148 MEQ/L 147 MEQ/L (136-145) (136-145) (136-145) Potassium Level 3.3 MEQ/L 3.2 MEQ/L 3.4 MEQ/L (3.5-5.1) (3.5-5.1) (3.5-5.1) Chloride Level 119 MEQ/L 115 MEQ/L 114 MEQ/L (98-107) (98-107) (98-107) Carbon Dioxide Level 22.8 MEQ/L 26.4 MEQ/L 28.5 MEQ/L (21.0-32.0) (21.0-32.0) (21.0-32.0) Anion Gap 10 MEQ/L (5-15) 7 MEQ/L (5-15) 5 MEQ/L (5-15) Blood Urea Nitrogen 19 MG/DL (7-18) 21 MG/DL (7-18) 19 MG/DL (7-18) Creatinine 0.94 MG/DL 1.06 MG/DL 0.94 MG/DL (0.60-1.30) (0.60-1.30) (0.60-1.30) Estimat Glomerular Filtration 97 ML/MIN (>89) 84 ML/MIN (>89) 97 ML/MIN (>89) Rate Random Glucose 112 MG/DL 123 MG/DL 116 MG/DL (74-106) (74-106) (74-106) Calcium Level 7.7 MG/DL 8.2 MG/DL 8.6 MG/DL (8.5-10.1) (8.5-10.1) (8.5-10.1) Blood Type O NEGATIVE Crossmatch Leukocyte-Reduced Red Blood Cells Blood Bank Comment Magnesium Level 2.1 MG/DL 2.1 MG/DL (1.5-2.5) (1.5-2.5) Total Bilirubin 0.6 MG/DL 0.7 MG/DL (0.2-1.0) (0.2-1.0) Aspartate Amino Transf 17 U/L (15-37) 14 U/L (15-37) (AST/SGOT) Alanine Aminotransferase 15 U/L (12-78) 13 U/L (12-78) (ALT/SGPT) Alkaline Phosphatase 65 U/L (45-117) 68 U/L (45-117) Total Protein 6.6 GM/DL 6.5 GM/DL (6.4-8.2) (6.4-8.2) Albumin 2.2 GM/DL 2.3 GM/DL (3.4-5.0) (3.4-5.0) Result Diagram: 10/26/16 0500 10/26/16 0500 Microbiology Microbiology Date/Time Procedure Status Source Growth 10/24/16 11:40 Gram Stain - Final Complete Sputum Endotracheal 10/24/16 11:40 Sputum Culture - Final Complete Sputum Endotracheal LIGHT GROWTH NORMAL RESPIRATORY TRACI Imaging Last Impressions Chest X-Ray 10/26/16 0600 Signed Impressions: Service Date/Time: Wednesday, October 26, 2016 05:32 - CONCLUSION: 1. Patchy alveolar disease characteristic of edema or pneumonia. There has been no significant change when compared to the prior exam. Timmy Lynne MD Brain MRI 10/25/16 0600 Signed Impressions: Service Date/Time: October 08:23 - CONCLUSION: 1. Continued large areas of abnormal contrast enhancement with surrounding edema involving the right temporal parietal cortex, the watershed distribution posteriorly on the left and patchy areas within the high cortices as well as the right cerebellar hemisphere. These have minimally decreased in size compared to previous. The overall amount of fluid associated with the lesions has decreased as well. Findings would suggest mild interval improvement compared to previous. There is decreasing right to left falcine shift. The amount of hemorrhage associated with these areas is stable. No new areas of hemorrhage are seen. Cody Coello MD Head CT 10/22/16 0600 Signed Impressions: Service Date/Time: Saturday, October 22, 2016 04:14 - CONCLUSION: There is slight improvement in the degree of hemorrhage within the right temporal lobe, however surrounding vasogenic edema has not changed and the rest of the examination has not significantly changed. Angela Basilio MD Renal Ultrasound 09/30/16 0000 Signed Impressions: Service Date/Time: Friday, September 30, 2016 18:45 - CONCLUSION: Ultrasound appearance of the kidneys within normal limits. Carrera catheter in the urinary bladder. Nonspecific splenomegaly incidentally noted. Michael Freitas MD Head Magnetic Resonance Angiography 09/30/16 0000 Signed Impressions: Service Date/Time: Friday, September 30, 2016 17:42 - CONCLUSION: No occlusion, aneurysm or other acute intracranial vascular abnormality demonstrated. Michael Freitas MD Procedures 09/30left subclavian central line, left radial arterial line /-right subclavian central line /-tracheostomy, bronchoscopy Assessment and Plan Disease Oriented Problem List: (1) Intracranial hemorrhage (2) Sepsis (3) Elevated troponin (4) Subarachnoid hemorrhage (5) Cerebral edema (6) Metabolic encephalopathy (7) Acute respiratory failure with hypoxia (8) Septic shock due to Staphylococcus aureus (9) Rash and nonspecific skin eruption (10) Substance abuse Symptom Scale: (1) Dyspnea 0-10 Scale: Unable to quantify (2) Encephalopathy 0-10 Scale: Unable to quantify (3) Agitation 0-10 Scale: Unable to quantify (4) Constipation 0-10 Scale: Unable to quantify Pertinent Non-Medical Issues Psychosocial:originally from [place], lived in [place] since . HS education. Was incarcerated and then in drug rehabilitation in [facility]. 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 Father (parents ) lived in [place] with support from family there. Supported by local friends, coworkers, apartment landlord. Spiritual:believes in God, no particular affiliation. would want ongoing hem marker support. Legal: Patient is not able to participate in decision-making due to clinical condition. He is not . Per [place] statutes his parents would be legal decision makers, mother is serving as primary supported by his sister and father. She reports she has POA paperwork. Ethical issues impacting care: Important Contacts mother Felicita Roberts [phone] (HCP) sister Elizabeth Rios [phone] father Pradeep Rios [phone] . 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 Severe aortic regurgitation and possible leaflet perforation, CV consult is pending. He additionally developed small area of brain hemorrhage. He remains critically ill. Possible he can recover with prolonged resuscitation , prolonged ICU course. Remains very high risk for further complications and setbacks though possible he can survive this initial injury/illness. Code Status: Full Code Plan * Legal decision maker: Patient is not able to participate in decision-making due to clinical condition. He is not . Per [place] statutes his parents would be legal decision makers, mother is serving as primary supported by his sister and father. She reports she has POA paperwork. (palliative SW reviewed and indicates that it does not include medical decision-making) [ patient sister Anay providing support to patient mother and assists her with decision making.] * Goals: Ongoing meetings with patient family, daily or as needed. Patient sister appears to have a reasonable understanding of conditions, prognosis. Patient mother appears to have a very simple understanding of conditions and prognosis. Father also seems to have a very simple understanding of conditions and prognosis. Goals remain aggressive, Patient's mother is hoping for a miracle and wants to continue whatever measures available to help patient recover. They are open to ongoing to conversations as clinical course evolves. Sister Anay continues to support mother and father with updates and decision making, mother makes brief visits but too upsetting for her to stay for long periods. She will be leaving to return to work and her home in [place] this week, requests daily updates from Palliative during the week if possible. * CODE STATUS: full SYMPTOMS: * Dyspnea- intubated for AMS. Status post tracheostomy. CXR w/ slight pulmonary edema , CXR stable/unchanged. +Enterobacter bronchial washing,on levaquin. Previously having T piece trials during the day, resumed on mechanical vent due to agitation, pulmonary edema. Currently comfortable on mechanical vent to trach. * Agitation- hx substance abuse; hx ADD, on adderall.+embolic CVA,+hemorrhage. Has required significant sedatives during hospital course. Some improvement during course tolerating weaning previously following commands and more arousable however sedation has been resumed due to cardiac/pulmonary concerns. Currently on Diprivan 45 mics, fentanyl 250 mics; appears comfortable. * Encephalopathy- multifactorial-- +sepsis, embolic CVA, + hemorrhage, hx substance abuse, EEG neg seizure ; repeat CT brain 10/16, MRI 10/17. Repeat MRI stable, slight improvement. Mental status had been improved, heavy sedation has been resumes to allow cardiac / pulmonary rest. * Constipation -resolved. +frequent loose BMs, after several doses of laxatives , improving today, less bowel movements. +colace scheduled. other bowel pharmaceuticals are prn. Palliative care will continue to follow during hospital course as condition evolves, to assist patient/decision-maker with understanding of medical conditions, weighing benefits/burdens of treatment options, for clarification of goals of treatment. Additionally will assist with any symptoms of palliative concern. . Attestation To help prompt me to consider important information that might be impacting today's encounter and assessment, information from prior notes written by myself or my colleagues may have been "brought forward" into today's note. My signature on this note, however, is an attestation that I personally performed the exam, history, and/or decision-making noted today, and, unless otherwise indicated, the interactions with patient, family, and staff as well as the review of records all occurred today. I also attest that the listed assessment and stated plan reflect my best clinical judgment today based on the combination of historical information, prior notes, and today's exam/ interactions. When time spent is documented, it refers only to time spent today by the signer, or if indicated, combined time spent today by collaborating physician/nurse practitioner. Sandy Liu Oct 26, 2016 11:37
--- NOTE | 2016-10-26 12:29 | HHI.IDPN ---
Note Infectious Disease Note Patient on the vent. Sedated heavily. Temp lower. Now on 8 mcg of Levophed. WBC decreased. Reportedly follows commands to move RUE. Discussed with RN. Trach - placed 10/15. Peg placed 10/17. Repeat TTE 10/16 noted - apparent perforation of aortic valve leaflet. severe aortic regurg. Sputum - Bronch washing 10/15 has Enterobacter. Sputum endotracheal - 10/16 - gram neg derrick. Sputum 10/21 - gran neg derrick. Blood cultures 09/30 Staph aureus in 5 of 6 bottles. Blood culture 10/02 positive. staph aureus. Blood culture 10/03 positive. staph aureus. Blood culture 10/04 positive. staph aureus. Blood culture 10/05 negative. Blood culture 10/06 negative. Blood culture 10/16 - 1 bottle with staph coag neg. Blood culture 10/21 - No growth. Patient was brought to the emergency department with altered mental status. Was evaluated for rash at preceding ED evaluation 2 days prior. PAST MEDICAL HISTORY 1. Substance abuse. The patient was in rehabilitation 1 year ago. 2. ADHD. 3. Degenerative disk disease. ALLERGIES Reportedly the patient is allergic to SULFA, PENICILLIN, TORADOL, CODEINE. ANTIBIOTICS: Nafcillin Levaquin. OBJECTIVE: Vital Signs Date Time Temp Pulse Resp B/P Pulse Ox O2 Delivery O2 Flow Rate FiO2 10/26/16 11:51 100 40 10/26/16 10:00 88 10/26/16 08:47 100 40 10/26/16 08:00 40 10/26/16 08:00 98.8 107 20 116/51 100 10/26/16 08:00 107 10/26/16 07:00 100 Mechanical Ventilator 7.00 40 10/26/16 04:22 100 40 10/26/16 04:18 20 10/26/16 04:00 40 10/26/16 04:00 98.6 89 20 114/56 100 10/26/16 00:33 100 40 10/26/16 00:00 99.1 95 20 114/57 100 10/26/16 00:00 40 10/25/16 21:14 100 40 10/25/16 20:00 40 10/25/16 20:00 98.6 108 20 114/57 100 10/25/16 19:30 Mechanical Ventilator 7.00 40 10/25/16 18:00 95 10/25/16 16:48 100 40 10/25/16 16:00 50 10/25/16 16:00 95 10/25/16 16:00 99.7 95 20 104/51 100 10/25/16 14:00 100 10/25/16 12:34 100 40 10/25/16 10/25/16 10/26/16 15:00 23:00 07:00 Intake Total 1475 ml 1131 ml 1156 ml Output Total 1526 ml 800 ml 600 ml Balance -51 ml 331 ml 556 ml IV Total 1090 ml 748 ml 803 ml Tube Feeding 225 ml 233 ml 203 ml Albumin 100 ml Tube Irrigant 60 ml Other 150 ml 150 ml Output Urine Total 1525 ml 800 ml 600 ml Stool Total 1 ml # Bowel Movements 1 1 Laboratory Tests Test 10/25/16 10/26/16 04:20 05:00 White Blood Count 15.5 TH/MM3 11.4 TH/MM3 Red Blood Count 2.79 MIL/MM3 2.65 MIL/MM3 Hemoglobin 8.2 GM/DL 7.7 GM/DL Hematocrit 24.0 % 23.4 % Mean Corpuscular Volume 86.0 FL 88.5 FL Mean Corpuscular Hemoglobin 29.3 PG 29.1 PG Mean Corpuscular Hemoglobin 34.0 % 32.9 % Concent Red Cell Distribution Width 15.3 % 15.8 % Platelet Count 219 TH/MM3 151 TH/MM3 Mean Platelet Volume 8.2 FL 8.6 FL Neutrophils (%) (Auto) 79.3 % 75.0 % Lymphocytes (%) (Auto) 11.4 % 15.6 % Monocytes (%) (Auto) 3.5 % 4.3 % Eosinophils (%) (Auto) 5.2 % 4.5 % Basophils (%) (Auto) 0.6 % 0.6 % Neutrophils # (Auto) 12.3 TH/MM3 8.5 TH/MM3 Lymphocytes # (Auto) 1.8 TH/MM3 1.8 TH/MM3 Monocytes # (Auto) 0.5 TH/MM3 0.5 TH/MM3 Eosinophils # (Auto) 0.8 TH/MM3 0.5 TH/MM3 Basophils # (Auto) 0.1 TH/MM3 0.1 TH/MM3 CBC Comment DIFF FINAL DIFF FINAL Differential Comment Laboratory Tests Test 10/25/16 10/26/16 04:20 05:00 Sodium Level 148 MEQ/L 147 MEQ/L Potassium Level 3.2 MEQ/L 3.4 MEQ/L Chloride Level 115 MEQ/L 114 MEQ/L Carbon Dioxide Level 26.4 MEQ/L 28.5 MEQ/L Anion Gap 7 MEQ/L 5 MEQ/L Blood Urea Nitrogen 21 MG/DL 19 MG/DL Creatinine 1.06 MG/DL 0.94 MG/DL Estimat Glomerular Filtration 84 ML/MIN 97 ML/MIN Rate Random Glucose 123 MG/DL 116 MG/DL Calcium Level 8.2 MG/DL 8.6 MG/DL Magnesium Level 2.1 MG/DL 2.1 MG/DL Total Bilirubin 0.6 MG/DL 0.7 MG/DL Aspartate Amino Transf 17 U/L 14 U/L (AST/SGOT) Alanine Aminotransferase 15 U/L 13 U/L (ALT/SGPT) Alkaline Phosphatase 65 U/L 68 U/L Total Protein 6.6 GM/DL 6.5 GM/DL Albumin 2.2 GM/DL 2.3 GM/DL Microbiology Date/Time Procedure Status Source Growth 10/24/16 11:40 Gram Stain - Final Complete Sputum Endotracheal 10/24/16 11:40 Sputum Culture - Final Complete Sputum Endotracheal LIGHT GROWTH NORMAL RESPIRATORY [facility]: Chest X-Ray 10/26/16599 Signed Impressions: Service Date/Time: Wednesday, October 26, 2016 05:32 - CONCLUSION: 1. Patchy alveolar disease characteristic of edema or pneumonia. There has been no significant change when compared to the prior exam. Timmy Lynne MD Chest X-Ray 10/25/16599 Signed Impressions: Service Date/Time: October 04:41 - CONCLUSION: Mild improvement in aeration of right midlung, however otherwise not significantly changed. Angela Basilio MD Brain MRI 10/25/16599 Signed Impressions: Service Date/Time: October 08:23 - CONCLUSION: 1. Continued large areas of abnormal contrast enhancement with surrounding edema involving the right temporal parietal cortex, the watershed distribution posteriorly on the left and patchy areas within the high cortices as well as the right cerebellar hemisphere. These have minimally decreased in size compared to previous. The overall amount of fluid associated with the lesions has decreased as well. Findings would suggest mild interval improvement compared to previous. There is decreasing right to left falcine shift. The amount of hemorrhage associated with these areas is stable. No new areas of hemorrhage are seen. Cody Coello MD Chest X-Ray 10/24/16 0000 Signed Impressions: Service Date/Time: Monday, October 24, 2016 04:38 - CONCLUSION: Improvement in aeration of the lungs. Angela Basilio MD Chest X-Ray 10/18/16 0600 Signed Impressions: Service Date/Time: October 04:52 - CONCLUSION: Mild infiltrate in the right lower lobe. Central line in good position. Loyd Black MD Brain MRI 10/18/16 06 Signed Impressions: Service Date/Time: October 11:38 - CONCLUSION: 1. Grossly abnormal examination demonstrating large areas of edema with abnormal contrast enhancement in both hemispheres. There are focal rim enhancing fluid collection seen in the left posterior parietal cortex, centrally and the high left parietal cortex and in the right posterior temporal cortex. Findings would be concerning for cerebritis and abscess. 2. 7.5 mm of [id number] falcine shift. 3. Focal area of abnormal enhancement and edema within the right side of the cerebellum again concerning for cerebritis/abscess in this patient with known history of endocarditis. 4. This patient's examination has significantly worsened when compared to previous dated 09/30/16. Cody Coello MD Head CT 10/16/16 0000 Signed Impressions: Service Date/Time: Sunday, October 16, 2016 04:37 - CONCLUSION: Large area of edema in the right temporal lobe with now some central areas of hemorrhage clearly more impressive than on the , in particular the amount of hemorrhage present. I don't see drainable collection, it is more of an elongated curvilinear area. Small area stroke and edema in the medial left parietal lobe. Improvement in the lower left lateral parietal lesion with much less edema today Loyd Black MD Chest X-Ray 10/15/16 0000 Signed Impressions: Service Date/Time: Saturday, October 15, 2016 13:21 - CONCLUSION: Trach is in good position without pneumothorax. Jair Coello MD FACR PHYSICAL EXAMINATION GENERAL: Sedated. Unresponsive. HEENT: Pupils dilated. No icterus. Oropharynx: moist mucosa. NECK: No adenopathy. No swelling. Trach site without e/o infection. LUNGS: Bibasilar rhonchi persist. HEART: 2-3/6 systolic murmur at the left sternal border. Loud S1S2. No rubs or gallops. ABDOMEN: Bowel sounds are present, soft, nontender. EXTREMITIES: No clubbing or cyanosis or edema. Embolic purpuric lesions at the plantar aspect of the 4th and 5th toe on the left and the great toe on the right are resolved. few very tiny petechial lesions at dorsum of feet. SKIN: Resolved rash. Dry peeled skin at tips of digits and soles of feet with new underlying skin. NEURO: Sedated. PSYCH: Unable to assess. IMPRESSION 1. Septic shock due to Staph aureus. Persistent bacteremia. MSSA. Blood culture now negative reflecting clearance. 2. Acute endocarditis. [place] aortic valve. Staph aureus. 3. Acute respiratory failure. 4. Bilateral lung infiltrates, probably secondary to septic emboli. Enterobacter PNA. 5. 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 6. History of IV drug abuse. Unknown current use status. 7. Antibiotic allergies. 8. Recent drug rash. Medicines in weeks before admission: Clindamycin, Doxycycline, acyclovir, Adderral, Tylenol, prednisone, omeprazole, Ibuprofen. 9. FEVER - C. line changed. WBC elevated. Probably infection related. Corynebacterium in urine is not significant. RECOMMENDATIONS: 1. Continue Nafcillin 2 grams Q 4 hours. 2. Continue Levaquin for Pneumonia due to Enterobacter. 3. Valve replacement when feasible. Tentatively planned for a few days. 5. Monitor new cultures. 6. Monitor clinical status. 7. Monitor temp. Nemesio Jackson MD Oct 26, 2016 12:29
--- NOTE | 2016-10-26 13:41 | PD.CAR.PN ---
CVT Progress Note Subjective/Hospital Course: Had a lengthy discussion with the patient's mother (in person) and sister (on the phone) regarding his clinical status and potential treatment options. He has severe aortic insufficiency in the setting of endocarditis with embolic brain abscesses as well as intracranial bleeds. He is ventilatory dependent and on IV Norepinephrine drip to maintain satisfactory hemodynamics. Given his current clinical condition, medical comorbidities and hemodynamic as well as neurologic status, Aortic valve replacement surgery will carry a significant risk of operative and perioperative morbidity and mortality, however , at this time there are no other viable options for his clinical condition. He has had recurrent CHF and pulmonary edema when off the ventilator necessitating reintubation and eventual trach and pressor support. I will have my partner offer a second opinion. If he agrees that the patient may benefit from surgical aortic valve replacement procedure, we may be able to proceed next week...likely Saturday. In the meantime, continue withe optimizing medical therapy. Thanks for allowing me to participate in the care of this very unfortunate young man. Objective: Vital Signs Date Time Temp Pulse Resp B/P Pulse Ox O2 Delivery O2 Flow Rate FiO2 10/26/16 12:00 92 10/26/16 11:51 100 40 10/26/16 10:00 88 10/26/16 08:47 100 40 10/26/16 08:00 40 10/26/16 08:00 98.8 107 20 116/51 100 10/26/16 08:00 107 10/26/16 07:00 100 Mechanical Ventilator 7.00 40 10/26/16 04:22 100 40 10/26/16 04:18 20 10/26/16 04:00 40 10/26/16 04:00 98.6 89 20 114/56 100 10/26/16 00:33 100 40 10/26/16 00:00 99.1 95 20 114/57 100 10/26/16 00:00 40 10/25/16 21:14 100 40 10/25/16 20:00 40 10/25/16 20:00 98.6 108 20 114/57 100 10/25/16 19:30 Mechanical Ventilator 7.00 40 10/25/16 18:00 95 10/25/16 16:48 100 40 10/25/16 16:00 50 10/25/16 16:00 95 10/25/16 16:00 99.7 95 20 104/51 100 10/25/16 14:00 100 Labs: Laboratory Tests Test 10/26/16 05:00 White Blood Count 11.4 TH/MM3 (4.0-11.0) Red Blood Count 2.65 MIL/MM3 (4.50-5.90) Hemoglobin 7.7 GM/DL (13.0-17.0) Hematocrit 23.4 % (39.0-51.0) Mean Corpuscular Volume 88.5 FL (80.0-100.0) Mean Corpuscular Hemoglobin 29.1 PG (27.0-34.0) Mean Corpuscular Hemoglobin 32.9 % Concent (32.0-36.0) Red Cell Distribution Width 15.8 % (11.6-17.2) Platelet Count 151 TH/MM3 (150-450) Mean Platelet Volume 8.6 FL (7.0-11.0) Neutrophils (%) (Auto) 75.0 % (16.0-70.0) Lymphocytes (%) (Auto) 15.6 % (9.0-44.0) Monocytes (%) (Auto) 4.3 % (0.0-8.0) Eosinophils (%) (Auto) 4.5 % (0.0-4.0) Basophils (%) (Auto) 0.6 % (0.0-2.0) Neutrophils # (Auto) 8.5 TH/MM3 (1.8-7.7) Lymphocytes # (Auto) 1.8 TH/MM3 (1.0-4.8) Monocytes # (Auto) 0.5 TH/MM3 (0-0.9) Eosinophils # (Auto) 0.5 TH/MM3 (0-0.4) Basophils # (Auto) 0.1 TH/MM3 (0-0.2) CBC Comment DIFF FINAL Differential Comment Sodium Level 147 MEQ/L (136-145) Potassium Level 3.4 MEQ/L (3.5-5.1) Chloride Level 114 MEQ/L (98-107) Carbon Dioxide Level 28.5 MEQ/L (21.0-32.0) Anion Gap 5 MEQ/L (5-15) Blood Urea Nitrogen 19 MG/DL (7-18) Creatinine 0.94 MG/DL (0.60-1.30) Estimat Glomerular Filtration 97 ML/MIN (>89) Rate Random Glucose 116 MG/DL (74-106) Calcium Level 8.6 MG/DL (8.5-10.1) Magnesium Level 2.1 MG/DL (1.5-2.5) Total Bilirubin 0.7 MG/DL (0.2-1.0) Aspartate Amino Transf 14 U/L (15-37) (AST/SGOT) Alanine Aminotransferase 13 U/L (12-78) (ALT/SGPT) Alkaline Phosphatase 68 U/L (45-117) Total Protein 6.5 GM/DL (6.4-8.2) Albumin 2.3 GM/DL (3.4-5.0) Result Diagram: 10/26/16 0500 10/26/16 0500 Skip Velazquez MD Oct 26, 2016 13:41
--- NOTE | 2016-10-26 15:12 | PD.CAR.PN ---
CVT Progress Note Subjective/Hospital Course: Had a lengthy discussion with the patient's mother (in person) and sister (on the phone) regarding his clinical status and potential treatment options. He has severe aortic insufficiency in the setting of endocarditis with embolic brain abscesses as well as intracranial bleeds. He is ventilatory dependent and on IV Norepinephrine drip to maintain satisfactory hemodynamics. Given his current clinical condition, medical comorbidities and hemodynamic as well as neurologic status, Aortic valve replacement surgery will carry a significant risk of operative and perioperative morbidity and mortality, however , at this time there are no other viable options for his clinical condition. He has had recurrent CHF and pulmonary edema when off the ventilator necessitating reintubation and eventual trach and pressor support. I will have my partner offer a second opinion. If he agrees that the patient may benefit from surgical aortic valve replacement procedure, we may be able to proceed next week...likely Saturday. In the meantime, continue withe optimizing medical therapy. Thanks for allowing me to participate in the care of this very unfortunate young man. I was asked by my partner, Dr. Velazquez, to see this 26 y/o male with severe AI secondary to endocarditis with respiratory and heart failure as well as recent embolic strokes with subarachnoid hemorrhage. He is ventilator dependent s/p tracheostomy and PEG. His neurologic status is difficult to assess, but he has some purposeful movement by report. Objective: Vital Signs Date Time Temp Pulse Resp B/P Pulse Ox O2 Delivery O2 Flow Rate FiO2 10/26/16 14:00 95 10/26/16 12:00 99.5 92 20 110/53 100 10/26/16 12:00 40 10/26/16 12:00 92 10/26/16 11:51 100 40 10/26/16 10:00 88 10/26/16 08:47 100 40 10/26/16 08:00 40 10/26/16 08:00 98.8 107 20 116/51 100 10/26/16 08:00 107 10/26/16 07:00 100 Mechanical Ventilator 7.00 40 10/26/16 04:22 100 40 10/26/16 04:18 20 10/26/16 04:00 40 10/26/16 04:00 98.6 89 20 114/56 100 10/26/16 00:33 100 40 10/26/16 00:00 99.1 95 20 114/57 100 10/26/16 00:00 40 10/25/16 21:14 100 40 10/25/16 20:00 40 10/25/16 20:00 98.6 108 20 114/57 100 10/25/16 19:30 Mechanical Ventilator 7.00 40 10/25/16 18:00 95 10/25/16 16:48 100 40 10/25/16 16:00 50 10/25/16 16:00 95 10/25/16 16:00 99.7 95 20 104/51 100 Labs: Laboratory Tests Test 10/26/16 05:00 White Blood Count 11.4 TH/MM3 (4.0-11.0) Red Blood Count 2.65 MIL/MM3 (4.50-5.90) Hemoglobin 7.7 GM/DL (13.0-17.0) Hematocrit 23.4 % (39.0-51.0) Mean Corpuscular Volume 88.5 FL (80.0-100.0) Mean Corpuscular Hemoglobin 29.1 PG (27.0-34.0) Mean Corpuscular Hemoglobin 32.9 % Concent (32.0-36.0) Red Cell Distribution Width 15.8 % (11.6-17.2) Platelet Count 151 TH/MM3 (150-450) Mean Platelet Volume 8.6 FL (7.0-11.0) Neutrophils (%) (Auto) 75.0 % (16.0-70.0) Lymphocytes (%) (Auto) 15.6 % (9.0-44.0) Monocytes (%) (Auto) 4.3 % (0.0-8.0) Eosinophils (%) (Auto) 4.5 % (0.0-4.0) Basophils (%) (Auto) 0.6 % (0.0-2.0) Neutrophils # (Auto) 8.5 TH/MM3 (1.8-7.7) Lymphocytes # (Auto) 1.8 TH/MM3 (1.0-4.8) Monocytes # (Auto) 0.5 TH/MM3 (0-0.9) Eosinophils # (Auto) 0.5 TH/MM3 (0-0.4) Basophils # (Auto) 0.1 TH/MM3 (0-0.2) CBC Comment DIFF FINAL Differential Comment Sodium Level 147 MEQ/L (136-145) Potassium Level 3.4 MEQ/L (3.5-5.1) Chloride Level 114 MEQ/L (98-107) Carbon Dioxide Level 28.5 MEQ/L (21.0-32.0) Anion Gap 5 MEQ/L (5-15) Blood Urea Nitrogen 19 MG/DL (7-18) Creatinine 0.94 MG/DL (0.60-1.30) Estimat Glomerular Filtration 97 ML/MIN (>89) Rate Random Glucose 116 MG/DL (74-106) Calcium Level 8.6 MG/DL (8.5-10.1) Magnesium Level 2.1 MG/DL (1.5-2.5) Total Bilirubin 0.7 MG/DL (0.2-1.0) Aspartate Amino Transf 14 U/L (15-37) (AST/SGOT) Alanine Aminotransferase 13 U/L (12-78) (ALT/SGPT) Alkaline Phosphatase 68 U/L (45-117) Total Protein 6.5 GM/DL (6.4-8.2) Albumin 2.3 GM/DL (3.4-5.0) Result Diagram: 10/26/16 0500 10/26/16 0500 Imaging: Last Impressions Chest X-Ray 10/26/16599 Signed Impressions: Service Date/Time: Wednesday, October 26, 2016 05:32 - CONCLUSION: 1. Patchy alveolar disease characteristic of edema or pneumonia. There has been no significant change when compared to the prior exam. Timmy Lynne MD Brain MRI 10/25/16599 Signed Impressions: Service Date/Time: October 08:23 - CONCLUSION: 1. Continued large areas of abnormal contrast enhancement with surrounding edema involving the right temporal parietal cortex, the watershed distribution posteriorly on the left and patchy areas within the high cortices as well as the right cerebellar hemisphere. These have minimally decreased in size compared to previous. The overall amount of fluid associated with the lesions has decreased as well. Findings would suggest mild interval improvement compared to previous. There is decreasing right to left falcine shift. The amount of hemorrhage associated with these areas is stable. No new areas of hemorrhage are seen. Cody Coello MD Head CT 10/22/16599 Signed Impressions: Service Date/Time: Saturday, October 22, 2016 04:14 - CONCLUSION: There is slight improvement in the degree of hemorrhage within the right temporal lobe, however surrounding vasogenic edema has not changed and the rest of the examination has not significantly changed. Angela Basilio MD Renal Ultrasound 09/30/16 0000 Signed Impressions: Service Date/Time: Friday, September 30, 2016 18:45 - CONCLUSION: Ultrasound appearance of the kidneys within normal limits. Je[place] catheter in the urinary bladder. Nonspecific splenomegaly incidentally noted. Michael Freitas MD Head Magnetic Resonance Angiography 09/30/16 0000 Signed Impressions: Service Date/Time: Friday, September 30, 2016 17:42 - CONCLUSION: No occlusion, aneurysm or other acute intracranial vascular abnormality demonstrated. Michael Freitas MD Plan: This patient's STS risk profile is summarized below, but it is underestimated as it does not take into consideration the patient's recent stroke with hemorrhage or his overall debilitated state. His risk of AVR in his current condition is much higher as is his risk for evolving his stroke or developing a new one. He is also at increased risk for bleeding intracranially. Risk of surgical site infection is also higher with a tracheostomy. In summary, he is a very poor operative candidate with a poor prognosis. Risk Model and Variables - STS Adult Cardiac Surgery Database Version 2.81 RISK SCORES About the STS Risk Calculator Procedure: AV Replacement Risk of Mortality: 8.735% Morbidity or Mortality: 60.188% Long Length of Stay: 35.913% Short Length of Stay: 14.664% Permanent Stroke: 1.194% Prolonged Ventilation: 42.913% DSW Infection: 0.174% Renal Failure: 7.113% Reoperation: 17.901% Georgina Fournier MD Oct 26, 2016 15:12
[2016-10-27] VITALS (17 sets, daily range): BP systolic 104–132; BP diastolic 49–61; PULSE 79–126; RESP 20; TEMP 98.2–99.1; O2SAT 100
[2016-10-27] MEDS: fentaNYL DRIP 250 ML IV SCH ×3 (00:11→17:53)
[2016-10-27] MEDS: NAFCILLIN INJ 2,000 MG in SODIUM CHLORIDE 0.9% INJ 100 ML IV SCH ×6 (00:11→20:58)
[2016-10-27] MEDS: ALBUMIN HUMAN 25% 25 GM/100 ML BAGP IV SCH ×2 (00:12→12:15)
[2016-10-27] MEDS: CHLORHEXIDINE GLUCONATE 2 % 1 PACK (2 CLOTHS) TOP SCH (03:44)
[2016-10-27] MEDS: NOREPINEPHRINE 4 MG/D5W 250 ML IV SCH ×3 (04:02→20:59)
[2016-10-27] MEDS: PROPOFOL 1000 MG/100 ML INJ 100 ML IV SCH ×3 (04:02→17:53)
[2016-10-27] MEDS: METOPROLOL TARTRATE 25 MG TAB PO SCH ×2 (05:37→13:05)
[2016-10-27] MEDS: DOCUSATE SODIUM 100 MG/10 ML UDC G-TUBE SCH ×2 (08:00→20:57)
[2016-10-27] MEDS: LEVOFLOXACIN 750 MG PREMIX INJ 150 ML IV SCH (08:45)
[2016-10-27] MEDS: PANTOPRAZOLE SODIUM 40 MG VIAL IV SCH (08:46)
[2016-10-27] MEDS: BUMETANIDE INJ 1 MG/4 ML VIAL IV PUSH SCH (08:46)
[2016-10-27] MEDS: CHLORHEXIDINE 0.12% (ORAL KIT) 15 ML CUP MT SCH ×2 (08:46→20:00)
[2016-10-27] MEDS: levETIRAcetam 500 MG/5 ML UDC NG SCH ×2 (08:46→20:57)
[2016-10-27] MEDS: BENEPROTEIN POWDER 1 PACK G-TUBE SCH ×3 (08:47→17:54)
[2016-10-27] MEDS: SODIUM CHLORIDE 0.9% FLUSH 10 ML FLUSH IV FLUSH SCH ×2 (08:47→20:58)
[2016-10-27] MEDS: ARTIFICIAL TEARS OPTH SOLN 15 ML BTL EACH EYE SCH ×3 (08:47→17:54)
[2016-10-27] MEDS: LORazepam 2 MG/ML VIAL IV PUSH PRN ×2 (10:17→17:54)
--- NOTE | 2016-10-27 11:47 | HHI.CCPN ---
Subjective Remarks/Hospital Course Hospital Course: This is a 26yM who presents to the ED for altered mental status. On arrival, the patient was obtunded and emergently intubated. His roommate is with him and cannot provide much medical history. The remainder of the history is per EMS and ER documentation and my discussion with the ER physician. Per EMS and ED reports, patient was seen approximately 10 days prior to admission by an unknown physician in the clinic and given antibiotic for fever. After taking the antibiotic, the patient had a new red rash on his hands and healing on his feet. He he was seen in the emergency department 2 days prior to admission for low-grade fever and congestion, generalized weakness, lightheadedness. At that time she was given prescription for prednisone 40 mg daily for 5 days. The patient's landlord apparently found the patient today with altered mental status and called EMS. When EMS arrived, his GCS was 10. There is reports that the patient has a history of substance abuse and was recently in rehabilitation. I did talk to the roommate who confirms that the patient had recently gotten out of rehabilitation and was living with him. The remainder does say that he does not think the patient has been taking any illicit substances recently. In the emergency department, the patient was hypotensive, tachycardic. His head CT is significant for significant areas of infarction in the right frontal , temporal, and cerebellar regions as well as a small area of subarachnoid hemorrhage in the superior right parietal region. Patient has early 3 mm of midline shift as well as effacement on the right. Patient's laboratory data is significant for white blood cell count of 19,000, hemoglobin of 9.9, lactate of 3.7, creatinine 1.69, CK 372, troponin of 11.9. His urine drug screen is positive for opiates and amphetamines. I performed a bedside critical care ultrasound which demonstrated hyperdynamic left ventricular function and what appears to be aortic valve vegetations and I measured to be proximally 0.9 x 8.8 cm. This is associated with what appears to be severe aortic regurgitation. There is no pericardial effusion. Right ventricular function is preserved. A formal echo has been ordered to confirm these findings. Critical care medicine has been consulted to evaluate and manage his shock, altered mental status, multiple areas of infarction, and subarachnoid hemorrhage. Subjective: 10/01: seen and examined around 06:30am. patient on norepinephrine at 6 mcg/min , persistently in shock. patient localizes to pain x [address] extremities. repeat interval head CT with 4mm midline shift. echo with significant aortic valve vegetations and moderate aortic insufficiency. 10/02: now following commands intermittently on the RUE, still localizing in LUE , BLE. off vasopressors this morning. cultures growing staph, sensitivities to follow. 10/03: tachycardic overnight. off vasopressors this morning. not following commands this morning. still persistently febrile and wbc uptrended to 20k. 10/04: still encephalopathic. EEG negative for seizure activity. received 1 trial dose of oxacillin yesterday without evidence of allergic reaction. will let ID guide this therapy, but safe from a critical care standpoint to pursue oxacillin therapy. cultures persistently positive and wbc uptrending. still febrile. 10/05: persistent encephalopathy. but now briskly purposeful x 4. now on oxacillin. discussed with ID, and will plan to start gent induction. wbc downtrending today. still febrile. will continue surveilance cultures q48h until 2 sets negative. 10/06: neuro exam unchanged. still purposeful. blood cultures negative x 24h. will re-draw today. still persists on 1mcg/min levophed, though this has also slightly improved from yesterday. 10/07: neuro exam stable. very agitated, not following commands. blood cultures negative x 48h. off levophed. 10/08: neuro exam stable. CT with increased midline shift and persistent edema, particularly right side. back on levophed. febrile. wbc stable. 10/09: sodium not at goal, likely due to normal renal function. follows commands in the RUE, which is new. spontaneously moves BLE, LUE. wbc downtrending. hgb 7 this AM, but no other signs of end-organ damage from low o2 delivery. 10/10 failed to SBT today due to rapid shallow breathing also tachycardia. Patient found to have a significant anemia below 7 will transfuse and reattempt SBT later today 10/11: Flash pulmonary edema today requiring sedation protocol and vent manipulations. Hypoxemia to 70s. 10/12: Some improvement in gas exchange after heavy sedation and relaxant. 10/13: Tmax 100.3, requiring high dose sedation. 10/14: Leukocytosis resolving. Still way ahead on free water - increase diuretics. Prealbumin 17, adjust TFs accordingly. 10/15: deeply sedated s/p severe agitation from prior causing pulmonary edema and hypoxia. talked with family at length, not clinically improving on pathway, will require tracheostomy and PEG tube for further improvements. also still significantly + on volume. still on vasopressors, but does not clinically appear to be in significant shock. 10/16: CT scan today with new hemorrhage into right temporal stroke area with 9mm midline shift. neurosurgery aware. no significant improvements in neurologic exam. repeat echo pending. 10/17: Neuro exam remains unchanged. Per Dr. Michelle CT from 10/16/16 showed small amount of new hemorrhage circumferentially along the area of the previous right temporal infarct. There is increased right temporal edema and mass effect but relatively focal primarily along the ventricle, and there is not significant compression along the brainstem or cisterns. Continued medical management, increased Na 145-150. Neuro exam remains unchanged Tmax 100.3, white count increased to 14.3. Enterobacter in BAL 10/15, start Levofloxacin 10/18 MRI shows multiple brain abscesses bilaterally. Large R sided stroke with midline shift 7.[address] Michelle will review images. ID feels oxacillin sufficient. Clinically neuro slightly improved. Spontaneous eye opening moves right upper and lower extremities spontaneously. (Mother states he squeezes hand to command) 10/19: Neuro exam slowly improving, squeezes with both hands. WBC count improved. Intermittently requiring Levophed. Remains tachycardic. Start scheduled metoprolol, start scheduled methadone to reduce fentanyl requirement 10/20 stable overnight, continue methadone and attempt to reduce fentanyl 10/21 will adjust methadone dose recommendation for detoxification off opiate addiction 10/22: Received Ativan overnight for agitation, now sedated moving all extremities spontaneously. Sodium 153. Urine output is adequate. Chest x-ray shows mild pulmonary edema 10/23: Getting 2 units PRBC for Hb 6.9. Intermittently agitated, with tachycardia. Fever up to 103 today. We'll discuss with ID. We'll change central line. For agitation will attempt to use Precedex again. I discussed with Dr. Cartagena who was the artificial breeding distributor while patient had agitation and pulmonary edema while on Precedex. It is clear to me and Dr. Cartagena that it was not an adverse reaction but agitation related to rapid tapering of his sedation and using Precedex alone at that time 10/24: Placed back on ventilator today for hypoxemic respiratory failure, chest x -ray showing florid pulmonary edema. I was emergently called to the room today hypoxemic tachypneic breathing and 50s. Large amount of copious frothy blood- tinged secretions from the trach most likely secondary to severe pulmonary edema. Neuromuscular paralysis given for ventilator synchrony. Required aggressive suctioning and bag and mask ventilation for long time before stabilization. Planning for bronchoscopy to rule out any injury to bronchial tree or trach site bleeding. Pulmonary edema is secondary to severe AI 10/25: Remains critically ill but stable ventilatory support. Heavily sedated for ventilator synchrony. Chest x-ray shows pulmonary edema with interval improvement. MRI of the brain shows stable to slightly improved lesions and stroke no new hemorrhages 10/26: Remains intubated sedated. Discuss with cardiothoracic surgery yesterday. He is willing to perform aortic valve replacement this Saturday if cleared by neurosurgery Dr. Michelle. Dr. Michelle has documented that patient could proceed with cardiovascular surgery as indicated, and in his opinion relatively low risk of perioperative intracranial hemorrhage with surgery and anticoagulation. Family is being updated on regular basis Subjective: 10/27 Tachypnea, tachycardia today, improved with ativan prn. Plan for CT brain/ chest today per previous order. Objective Vital Signs Date Time Temp Pulse Resp B/P Pulse Ox O2 Delivery O2 Flow Rate FiO2 10/27/16 11:23 100 40 10/27/16 10:00 126 10/27/16 08:00 99.0 20 107/51 10/27/16 07:00 Mechanical Ventilator 10/26/16 19:30 7.00 Intake and Output 10/26/16 10/26/16 10/27/16 08:00 16:00 00:00 Intake Total 1156 ml 1574 ml 843 ml Output Total 600 ml 1850 ml 650 ml Balance 556 ml -276 ml 193 ml Result Diagram: 10/26/16 0500 10/26/16 0500 Imaging Last Impressions Head CT 09/30/16 3073 Signed Impressions: Service Date/Time: Friday, September 30, 2016 16:31 - CONCLUSION: Noncontrast CT findings of concern for multiple intra-axial masses. There is small acute subarachnoid blood present and about 3 mm of leftward midline shift. MRI of the brain with and without contrast recommended. Michael Freitas MD Chest X-Ray 09/30/16 [id number] Signed Impressions: Service Date/Time: Friday, September 30, 2016 15:23 - CONCLUSION: No acute cardiopulmonary disease demonstrated. Appropriate endotracheal tube tip position. Nasogastric tube courses into the stomach, tip not included on the study. Michael Freitas MD Objective Remarks Drips: Norepinephrine 8 mcg/m Propofol 50 micrograms per KG per minute Fentanyl 250 g per hour GENERAL: Young male, lying in bed, critically ill, sedated on the vent HEENT: Pupils equal, sluggishly reactive. Mucous membranes moist. NECK: No JVD. Trachea midline. Trach with minimal bloody secretions CHEST:Bilateral course crackles CARDIOVASCULAR: S1-S2 normal. + JVD. Early Diastolic murmur Grade 3 best heard LSB ABDOMEN: Soft, nontender, nondistended. No guarding. MUSCULOSKELETAL: . No peripheral edema. Distal pulses 2+. NEUROLOGICAL: Intubated and sedated for ventilator synchrony and hypoxia. Moves all extremities on sedation lightening, opens eyes. 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 Has hemorrhagic conversion and midline shift. MRI 10/18 multiple brain abscesses. Continue with supportive care. Remains critically ill at this time, took a turn for the worse with severe pulmonary edema and acute hypoxemic respiratory failure back on full mechanical ventilation Plan by systems: Neurologic: Multiple acute septic CVAs, brain abscesses Cerebral edema, Midline shift, 9 mm Small subarachnoid hemorrhage Right temporal hemorrhagic conversion Metabolic encephalopathy Agitated Delirium --MRI 10/18 shows multiple brain abscesses bilaterally. Large R sided stroke with midline shift 7.[address] Michelle recommends continued medical management --MRI today 10/25/16 stable to slightly improved, abscesses. Improving cerebral edema, also improvement in the hemorrhagic conversion temporal region on the right --CT head 10/22: Slight improvement in right temporal hemorrhage with persistent vasogenic edema. Midline shift appears improved on my review --Propofol and fentanyl for sedation and vent synchrony, Keep RASS -2. --Ativan prn, resume methadone due to agitation/pain. Haldol on hold. --Keppra for seizure prophylaxis, patient with multiple brain abscesses --s/p failed trial of Seroquel. Respiratory: Acute hypoxic and hypercarbic respiratory failure Severe pulmonary edema ACV PEEP 12, FiO2 40%. Wean PEEP as tolerated --Vent bundle, head of bed 30 --Bronchoscopy 10/24/16 was essentially normal except for some pink frothy secretions suggestive of pulmonary edema Wean FiO2 for goal SPO2 greater than 90% --s/p trach 10/[address] Dominguez/Osiel Cardiovascular: Aortic valve endocarditis Severe aortic insufficiency, with probable AV perforation Persistent tachycardia Hypotension Severe pulmonary edema from severe AI, back on vent 10/24 --Dr. Velazquez will perform mini AVR on Saturday10/29/16, if cleared by neurosurgery --Dr. Michelle has documented low risk for intracranial hemorrhage --Levophed to keep MAP >65, currently 8 mcg/min. --ABX as described below 2d echo 10/01: aortic valve vegetations, moderate AI. Echo 10/17 Sev AI, probable AV perforation --CTS consulted, Dr. Velazquez and Dr. Fournier feel patient is high risk, and they plan on discussing with [facility] on 10/29. --Bumex 1 mg IV daily Renal: Acute kidney injury- resolved. Jerez for accurate I's and O's --Strict I/Os FEN/GI: Hypermagnesemia Metabolic Alkalosis Acute protein calorie malnutritionmild Elevated LFTs Intravascular Volume Overload Nepro 35/hr. --Dulcolax PRN Daily BMP --Started back on Bumex and IV albumin on 10/24/16 --s/p Lasix 40mg iv q12h DCd 10/19/16. --s/p Diamox 500mg iv q8h x 3 doses completed . Heme/ID: Infective endocarditis with embolic complications and severe aortic insufficiency Septic shock- resolved Anemia, likely secondary to hemolysis from valvulopathy New fever 10/01 blood cultures: MSSA --10/01 sputum culture: MSSA --10/02 blood cultures: MSSA --10/03 blood cultures: MSSA --10/04 bl cx: MSSA --10/05 bl cx: NGTD --10/06 bl cx: NGTD --10/15 Enterobacter in BAL --6/6 blood culture coag negative staph probable contamination --10/21 sputum Enterobacter --10/21 blood no growth --10/21 urine corynebacterium --10/24 sputum no growth --changed central line 10/23 vancomycin, flagyl d/cd 10/02. --oxacillin started 10/02-DCd 10/18 --Currenlty on nafcillin started by ID 10/18/16,-Levofloxacin to cover Enterobacter 10/17 and Cefepime 10/23 --gentamicin induction therapy per ID. started 10/05, d/c'd Infectious disease following: Dontfraid, --Give single dose of vanc 10/23 --getting 2U PRBC 10/23, 1U PRBC 10/24 Endocrine: Hyperglycemia of critical illness -- SSI, every 6 hours, medium scale TSH 0.16, free T4 1.07, T3 < 0.5: likely sick euthyroid. Prophylaxis: --GI Prophylaxis Protonix IV DVT Prophylaxis -- SCDs Holding pharmacologic DVT prophylaxis in the setting of cerebral hemorrhage, multiple brain abscesses,anemia Lines: --09/30 left SC TLC d/c. --New right SCV CVL placed 10/12. DCd 10/23 --New L subclavian placed 10/23 #5. --[place] [facility]: LEvel 3 f/u. It is my opinion that patient will without a valve replacement due to severe aortic regurgitation and probable perforation of the valve. He had had several episodes of flash pulmonary edema due to severe AI. Dr. Velazquez and Dr. Fournier indicate high operative risk but reportedly plan to confer with colleagues at [facility]. Renetta Reynoso MD Oct 27, 2016 11:47
[2016-10-27] MEDS ORDERED: LORazepam 2 MG/ML VIAL IV PUSH ONE (12:00)
[2016-10-27] MEDS ORDERED: METHADONE HCL 10 MG/10 ML ORAL SOLUTION PO SCH (12:00)
[2016-10-27 13:39] LABS: BICARBONATE 29.6 MEQ/L (21.0-32.0); POTASSIUM 3.5 MEQ/L (3.5-5.1)
[2016-10-27] MEDS: POTASSIUM CHLOR 40 MEQ PREMIX 100 ML IV PRN (16:36)
[2016-10-27] MEDS: METHADONE HCL 10 MG/10 ML ORAL SOLUTION PEG SCH (17:54)
--- NOTE | 2016-10-27 19:11 | RADRPT ---
EXAM DATE/TIME: 10/27/2016 18:25 [facility] COMPARISON: CT BRAIN W/O CONTRAST, October 22, 2016, 4:14. INDICATIONS : Evaluate abscess; hemorrhage. RADIATION DOSE: 66.07 CTDIvol (mGy) MEDICAL HISTORY : IV drug use, endocarditis. SURGICAL HISTORY : None. ENCOUNTER: Initial ACUITY: 1 day PAIN SCALE: Non-responsive LOCATION: cranial TECHNIQUE: Multiple contiguous axial images were obtained of the head. Using automated exposure control and adjustment of the mA and/or kV according to patient size, radiation dose was kept as low as reasonably achievable to obtain optimal diagnostic quality images. FINDINGS: Continued interval evolution of right temporal convexity intra-axial hemorrhage with improving blood products now measuring 1.5 cm in maximum dimension compared to 1.6 cm on prior exam. There is also im proved vasogenic edema involving the right temporoparietal mid to low convexities extending to the ri ght basal ganglia. Grossly stable left prior occipital high convexity are white matter hypodensities and loss of fernandez-white matter differentiation. There is also continued evolution of hemorrhage in the left medial parietal high convexities with associated sounding vasogenic edema. There is improved ri ght to left subfalcine shift now measuring approximate 4 mm. Ventricles are normal in size without ev idence for hydrocephalus. Basilar cisterns are maintained. Brainstem and cerebellum are grossly unrem arkable. Remainder of the exam is unchanged. CONCLUSION: Overall mild improvement in large region of right temporoparietal hemorrhage and surrounding vasogeni c edema extending to the right basal ganglia, watershed distribution left parietooccipital infarct/ed naseem and high left parietal cortex hemorrhage. Jose A Munoz MD on October 27, 2016 at 18:58 Board Certified Radiologist. This report was verified electronically.
--- NOTE | 2016-10-27 19:19 | RADRPT ---
EXAM DATE/TIME: 10/27/2016 18:29 [facility] COMPARISON: No previous studies available for comparison. INDICATIONS : Endocarditis; pleural effusion. RADIATION DOSE: 8.51 CTDIvol (mGy) MEDICAL HISTORY : Seizures. Cardiovascular disease SURGICAL HISTORY : Tracheostomy ENCOUNTER: Subsequent ACUITY: 1 month PAIN SCALE: Non-responsive LOCATION: chest TECHNIQUE: Volumetric scanning of the chest was performed. Using automated exposure control and adjustment of the mA and/or kV according to patient size, radiation dose was kept as low as reasonab ly achievable to obtain optimal diagnostic quality images. FINDINGS: There is a tracheostomy good position. Left subclavian central line extends to the central SVC. There are small to moderate size bilateral pleural effusions are demonstrating simple fluid density. There are dense airspace consolidation at the lung bases. Diffuse patchy groundglass opacities are noted t hroughout the lungs bilaterally. There are also multiple bilateral ill-defined parenchymal nodules mo st notably in the left upper lobe with a nodule measuring up to 12 mm. No cavitation at this time. Th ere is a small pericardial effusion. Heart is otherwise grossly unremarkable. Mediastinal evaluation is otherwise limited due to lack of contrast. There are no abnormal lytic or blastic bony lesions. CONCLUSION: 1. Small to moderate-sized simple appearing bilateral pleural effusions. 2. Dense bilateral lower lobe airspace consolidations are more extensive than expected for atelectasi s. Differential considerations include aspiration and infection. 3. Diffuse bilateral groundglass opacities are consistent with diffuse infection versus ARDS. 4. Multiple bilateral non-cavitary somewhat ill-defined pulmonary nodules consistent with septic embo li in this patient with history of endocarditis. 5. Small pericardial effusion. Jose A Munoz MD on October 27, 2016 at 19:09 Board Certified Radiologist. This report was verified electronically.
[2016-10-28] VITALS (19 sets, daily range): BP systolic 107–118; BP diastolic 50–57; PULSE 82–95; RESP 20; TEMP 98.2–99.6; O2SAT 100
[2016-10-28] MEDS: METHADONE HCL 10 MG/10 ML ORAL SOLUTION PEG SCH ×5 (00:20→23:55)
[2016-10-28] MEDS: NAFCILLIN INJ 2,000 MG in SODIUM CHLORIDE 0.9% INJ 100 ML IV SCH ×7 (00:20→23:56)
[2016-10-28] MEDS: ALBUMIN HUMAN 25% 25 GM/100 ML BAGP IV SCH ×3 (00:21→23:59)
[2016-10-28] MEDS: PROPOFOL 1000 MG/100 ML INJ 100 ML IV SCH (01:05)
[2016-10-28] MEDS: fentaNYL DRIP 250 ML IV SCH ×2 (03:07→23:59)
[2016-10-28] MEDS: CHLORHEXIDINE GLUCONATE 2 % 1 PACK (2 CLOTHS) TOP SCH (04:00)
[2016-10-28 06:46] LABS: AUTOMATED NEUTROPHIL # 8.6 TH/MM3 (1.8-7.7); BASOPHIL # 0.1 TH/MM3 (0-0.2); BASOPHIL % 0.7 % (0.0-2.0); EOSINOPHIL # 0.4 TH/MM3 (0-0.4); EOSINOPHIL % 3.8 % (0.0-4.0); HEMO FLAGS DIFF FINAL; LYMPH % 15.4 % (9.0-44.0); LYMPHOCYTE # 1.7 TH/MM3 (1.0-4.8); MEAN CELL VOLUME 87.6 FL (80.0-100.0); MEAN CORPUSCULAR HEMOGLOBIN 28.8 PG (27.0-34.0); MEAN CORPUSCULAR HGB CONC 32.9 % (32.0-36.0); MONO % 4.1 % (0.0-8.0); PLATELET COUNT 200 TH/MM3 (150-450); RED BLOOD COUNT 2.74 MIL/MM3 (4.50-5.90); RED CELL DISTRIBUTION WIDTH 15.3 % (11.6-17.2); WHITE BLOOD COUNT 11.4 TH/MM3 (4.0-11.0)
[2016-10-28 07:08] LABS: BICARBONATE 29.5 MEQ/L (21.0-32.0); POTASSIUM 3.4 MEQ/L (3.5-5.1)
[2016-10-28] MEDS: CHLORHEXIDINE 0.12% (ORAL KIT) 15 ML CUP MT SCH ×2 (08:00→20:00)
[2016-10-28] MEDS: DOCUSATE SODIUM 100 MG/10 ML UDC G-TUBE SCH ×2 (08:00→20:29)
[2016-10-28] MEDS: BENEPROTEIN POWDER 1 PACK G-TUBE SCH ×3 (08:47→17:53)
[2016-10-28] MEDS: LEVOFLOXACIN 750 MG PREMIX INJ 150 ML IV SCH (08:47)
[2016-10-28] MEDS: ARTIFICIAL TEARS OPTH SOLN 15 ML BTL EACH EYE SCH ×3 (08:47→17:54)
[2016-10-28] MEDS: PANTOPRAZOLE SODIUM 40 MG VIAL IV SCH (08:47)
[2016-10-28] MEDS: levETIRAcetam 500 MG/5 ML UDC NG SCH ×2 (08:48→20:29)
[2016-10-28] MEDS: SODIUM CHLORIDE 0.9% FLUSH 10 ML FLUSH IV FLUSH SCH ×2 (08:48→20:30)
[2016-10-28] MEDS: BUMETANIDE INJ 1 MG/4 ML VIAL IV PUSH SCH (08:48)
--- NOTE | 2016-10-28 09:27 | PD.CAR.PN ---
CVT Progress Note Subjective/Hospital Course: Had a lengthy discussion with the patient's mother (in person) and sister (on the phone) regarding his clinical status and potential treatment options. He has severe aortic insufficiency in the setting of endocarditis with embolic brain abscesses as well as intracranial bleeds. He is ventilatory dependent and on IV Norepinephrine drip to maintain satisfactory hemodynamics. Given his current clinical condition, medical comorbidities and hemodynamic as well as neurologic status, Aortic valve replacement surgery will carry a significant risk of operative and perioperative morbidity and mortality, however , at this time there are no other viable options for his clinical condition. He has had recurrent CHF and pulmonary edema when off the ventilator necessitating reintubation and eventual trach and pressor support. I will have my partner offer a second opinion. If he agrees that the patient may benefit from surgical aortic valve replacement procedure, we may be able to proceed next week...likely Saturday. In the meantime, continue withe optimizing medical therapy. Thanks for allowing me to participate in the care of this very unfortunate young man. I was asked by my partner, Dr. Velazquez, to see this 26 y/o male with severe AI secondary to endocarditis with respiratory and heart failure as well as recent embolic strokes with subarachnoid hemorrhage. He is ventilator dependent s/p tracheostomy and PEG. His neurologic status is difficult to assess, but he has some purposeful movement by report. 10/28 Surgery on hold for now pending further improvement and re-evaluation. Discussed with mother, father, sister and step-father. Appreciate Dr. Talamantes's opinion. Will have [facility] offer additional input. Objective: Vital Signs Date Time Temp Pulse Resp B/P Pulse Ox O2 Delivery O2 Flow Rate FiO2 10/28/16 08:00 40 10/28/16 08:00 84 10/28/16 07:53 100 40 10/28/16 07:00 100 Mechanical Ventilator 40 10/28/16 06:00 83 10/28/16 04:00 98.8 92 20 108/50 100 10/28/16 04:00 84 10/28/16 04:00 40 10/28/16 03:32 100 40 10/28/16 02:00 85 10/28/16 01:10 100 40 10/28/16 00:00 40 10/28/16 00:00 89 10/28/16 00:00 98.7 89 20 107/54 100 10/27/16 22:00 92 10/27/16 20:52 100 40 10/27/16 20:00 98.2 90 20 117/58 100 10/27/16 20:00 40 10/27/16 20:00 90 10/27/16 19:00 100 Mechanical Ventilator 40 10/27/16 18:45 100 100 10/27/16 18:00 88 10/27/16 16:00 108 10/27/16 16:00 40 10/27/16 16:00 98.6 79 20 119/55 100 10/27/16 15:24 100 40 10/27/16 14:00 91 10/27/16 12:00 99.1 89 20 110/53 100 10/27/16 12:00 40 10/27/16 12:00 89 10/27/16 11:23 100 40 10/27/16 10:00 126 Labs: Laboratory Tests Test 10/28/16 06:15 White Blood Count 11.4 TH/MM3 (4.0-11.0) Red Blood Count 2.74 MIL/MM3 (4.50-5.90) Hemoglobin 7.9 GM/DL (13.0-17.0) Hematocrit 24.0 % (39.0-51.0) Mean Corpuscular Volume 87.6 FL (80.0-100.0) Mean Corpuscular Hemoglobin 28.8 PG (27.0-34.0) Mean Corpuscular Hemoglobin 32.9 % Concent (32.0-36.0) Red Cell Distribution Width 15.3 % (11.6-17.2) Platelet Count 200 TH/MM3 (150-450) Mean Platelet Volume 8.5 FL (7.0-11.0) Neutrophils (%) (Auto) 76.0 % (16.0-70.0) Lymphocytes (%) (Auto) 15.4 % (9.0-44.0) Monocytes (%) (Auto) 4.1 % (0.0-8.0) Eosinophils (%) (Auto) 3.8 % (0.0-4.0) Basophils (%) (Auto) 0.7 % (0.0-2.0) Neutrophils # (Auto) 8.6 TH/MM3 (1.8-7.7) Lymphocytes # (Auto) 1.7 TH/MM3 (1.0-4.8) Monocytes # (Auto) 0.5 TH/MM3 (0-0.9) Eosinophils # (Auto) 0.4 TH/MM3 (0-0.4) Basophils # (Auto) 0.1 TH/MM3 (0-0.2) CBC Comment DIFF FINAL Differential Comment Sodium Level 140 MEQ/L (136-145) Potassium Level 3.4 MEQ/L (3.5-5.1) Chloride Level 105 MEQ/L (98-107) Carbon Dioxide Level 29.5 MEQ/L (21.0-32.0) Anion Gap 6 MEQ/L (5-15) Blood Urea Nitrogen 18 MG/DL (7-18) Creatinine 0.76 MG/DL (0.60-1.30) Estimat Glomerular Filtration 124 ML/MIN Rate (>89) Random Glucose 114 MG/DL (74-106) Calcium Level 8.4 MG/DL (8.5-10.1) Result Diagram: 10/28/16 0615 10/28/16 0615 Skip Velazquez MD Oct 28, 2016 09:27
[2016-10-28] MEDS: LORazepam 2 MG/ML VIAL IV PUSH PRN (10:49)
[2016-10-28] MEDS: NOREPINEPHRINE 4 MG/D5W 250 ML IV SCH (20:58)
--- NOTE | 2016-10-28 22:00 | HHI.CCPN ---
Subjective Remarks/Hospital Course Hospital Course: This is a 26yM who presents to the ED for altered mental status. On arrival, the patient was obtunded and emergently intubated. His roommate is with him and cannot provide much medical history. The remainder of the history is per EMS and ER documentation and my discussion with the ER physician. Per EMS and ED reports, patient was seen approximately 10 days prior to admission by an unknown physician in the clinic and given antibiotic for fever. After taking the antibiotic, the patient had a new red rash on his hands and healing on his feet. He he was seen in the emergency department 2 days prior to admission for low-grade fever and congestion, generalized weakness, lightheadedness. At that time she was given prescription for prednisone 40 mg daily for 5 days. The patient's landlord apparently found the patient today with altered mental status and called EMS. When EMS arrived, his GCS was 10. There is reports that the patient has a history of substance abuse and was recently in rehabilitation. I did talk to the roommate who confirms that the patient had recently gotten out of rehabilitation and was living with him. The remainder does say that he does not think the patient has been taking any illicit substances recently. In the emergency department, the patient was hypotensive, tachycardic. His head CT is significant for significant areas of infarction in the right frontal , temporal, and cerebellar regions as well as a small area of subarachnoid hemorrhage in the superior right parietal region. Patient has early 3 mm of midline shift as well as effacement on the right. Patient's laboratory data is significant for white blood cell count of 19,000, hemoglobin of 9.9, lactate of 3.7, creatinine 1.69, CK 372, troponin of 11.9. His urine drug screen is positive for opiates and amphetamines. I performed a bedside critical care ultrasound which demonstrated hyperdynamic left ventricular function and what appears to be aortic valve vegetations and I measured to be proximally 0.9 x 8.8 cm. This is associated with what appears to be severe aortic regurgitation. There is no pericardial effusion. Right ventricular function is preserved. A formal echo has been ordered to confirm these findings. Critical care medicine has been consulted to evaluate and manage his shock, altered mental status, multiple areas of infarction, and subarachnoid hemorrhage. Subjective: 10/01: seen and examined around 06:30am. patient on norepinephrine at 6 mcg/min , persistently in shock. patient localizes to pain x [address] extremities. repeat interval head CT with 4mm midline shift. echo with significant aortic valve vegetations and moderate aortic insufficiency. 10/02: now following commands intermittently on the RUE, still localizing in LUE , BLE. off vasopressors this morning. cultures growing staph, sensitivities to follow. 10/03: tachycardic overnight. off vasopressors this morning. not following commands this morning. still persistently febrile and wbc uptrended to 20k. 10/04: still encephalopathic. EEG negative for seizure activity. received 1 trial dose of oxacillin yesterday without evidence of allergic reaction. will let ID guide this therapy, but safe from a critical care standpoint to pursue oxacillin therapy. cultures persistently positive and wbc uptrending. still febrile. 10/05: persistent encephalopathy. but now briskly purposeful x 4. now on oxacillin. discussed with ID, and will plan to start gent induction. wbc downtrending today. still febrile. will continue surveilance cultures q48h until 2 sets negative. 10/06: neuro exam unchanged. still purposeful. blood cultures negative x 24h. will re-draw today. still persists on 1mcg/min levophed, though this has also slightly improved from yesterday. 10/07: neuro exam stable. very agitated, not following commands. blood cultures negative x 48h. off levophed. 10/08: neuro exam stable. CT with increased midline shift and persistent edema, particularly right side. back on levophed. febrile. wbc stable. 10/09: sodium not at goal, likely due to normal renal function. follows commands in the RUE, which is new. spontaneously moves BLE, LUE. wbc downtrending. hgb 7 this AM, but no other signs of end-organ damage from low o2 delivery. 10/10 failed to SBT today due to rapid shallow breathing also tachycardia. Patient found to have a significant anemia below 7 will transfuse and reattempt SBT later today 10/11: Flash pulmonary edema today requiring sedation protocol and vent manipulations. Hypoxemia to 70s. 10/12: Some improvement in gas exchange after heavy sedation and relaxant. 10/13: Tmax 100.3, requiring high dose sedation. 10/14: Leukocytosis resolving. Still way ahead on free water - increase diuretics. Prealbumin 17, adjust TFs accordingly. 10/15: deeply sedated s/p severe agitation from prior causing pulmonary edema and hypoxia. talked with family at length, not clinically improving on pathway, will require tracheostomy and PEG tube for further improvements. also still significantly + on volume. still on vasopressors, but does not clinically appear to be in significant shock. 10/16: CT scan today with new hemorrhage into right temporal stroke area with 9mm midline shift. neurosurgery aware. no significant improvements in neurologic exam. repeat echo pending. 10/17: Neuro exam remains unchanged. Per Dr. Michelle CT from 10/16/16 showed small amount of new hemorrhage circumferentially along the area of the previous right temporal infarct. There is increased right temporal edema and mass effect but relatively focal primarily along the ventricle, and there is not significant compression along the brainstem or cisterns. Continued medical management, increased Na 145-150. Neuro exam remains unchanged Tmax 100.3, white count increased to 14.3. Enterobacter in BAL 10/15, start Levofloxacin 10/18 MRI shows multiple brain abscesses bilaterally. Large R sided stroke with midline shift 7.[address] Michelle will review images. ID feels oxacillin sufficient. Clinically neuro slightly improved. Spontaneous eye opening moves right upper and lower extremities spontaneously. (Mother states he squeezes hand to command) 10/19: Neuro exam slowly improving, squeezes with both hands. WBC count improved. Intermittently requiring Levophed. Remains tachycardic. Start scheduled metoprolol, start scheduled methadone to reduce fentanyl requirement 10/20 stable overnight, continue methadone and attempt to reduce fentanyl 10/21 will adjust methadone dose recommendation for detoxification off opiate addiction 10/22: Received Ativan overnight for agitation, now sedated moving all extremities spontaneously. Sodium 153. Urine output is adequate. Chest x-ray shows mild pulmonary edema 10/23: Getting 2 units PRBC for Hb 6.9. Intermittently agitated, with tachycardia. Fever up to 103 today. We'll discuss with ID. We'll change central line. For agitation will attempt to use Precedex again. I discussed with Dr. Cartagena who was the programmer while patient had agitation and pulmonary edema while on Precedex. It is clear to me and Dr. Cartagena that it was not an adverse reaction but agitation related to rapid tapering of his sedation and using Precedex alone at that time 10/24: Placed back on ventilator today for hypoxemic respiratory failure, chest x -ray showing florid pulmonary edema. I was emergently called to the room today hypoxemic tachypneic breathing and 50s. Large amount of copious frothy blood- tinged secretions from the trach most likely secondary to severe pulmonary edema. Neuromuscular paralysis given for ventilator synchrony. Required aggressive suctioning and bag and mask ventilation for long time before stabilization. Planning for bronchoscopy to rule out any injury to bronchial tree or trach site bleeding. Pulmonary edema is secondary to severe AI 10/25: Remains critically ill but stable ventilatory support. Heavily sedated for ventilator synchrony. Chest x-ray shows pulmonary edema with interval improvement. MRI of the brain shows stable to slightly improved lesions and stroke no new hemorrhages 10/26: Remains intubated sedated. Discuss with cardiothoracic surgery yesterday. He is willing to perform aortic valve replacement this Saturday if cleared by neurosurgery Dr. Michelle. Dr. Michelle has documented that patient could proceed with cardiovascular surgery as indicated, and in his opinion relatively low risk of perioperative intracranial hemorrhage with surgery and anticoagulation. Family is being updated on regular basis 10/27 Tachypnea, tachycardia today, improved with ativan prn. Plan for CT brain/ chest today per previous order. Subjective: 10/28 Still on sedation with propofol/fentanyl for vent synchrony as nurses have noted intermittent agitation, tachypnea. When sedation held he intermittently appears to follow command with hand squeeze on the right upper extremity. Eyes open but does not make eye contact, + facial grimace, L facial droop, withdraw weakly on the left upper. Moves BLE spontaneously, right more than left. Noted Dr. Velazquez to seek input from [facility], surgery on hold for now. Objective Vital Signs Date Time Temp Pulse Resp B/P Pulse Ox O2 Delivery O2 Flow Rate FiO2 10/28/16 20:46 100 40 10/28/16 20:00 90 10/28/16 19:00 Mechanical Ventilator 10/28/16 16:00 98.2 20 118/57 10/26/16 19:30 7.00 Intake and Output 10/27/16 10/27/16 10/28/16 08:00 16:00 00:00 Intake Total 1237 ml 1488 ml 1092 ml Output Total 750.0 ml 1800.0 ml 650 ml Balance 487.0 ml -312.0 ml 442 ml Result Diagram: 10/28/16 0615 10/28/16 0615 Imaging Last Impressions Head CT 09/30/161452 Signed Impressions: Service Date/Time: Friday, September 30, 2016 16:31 - CONCLUSION: Noncontrast CT findings of concern for multiple intra-axial masses. There is small acute subarachnoid blood present and about 3 mm of leftward midline shift. MRI of the brain with and without contrast recommended. Michael Freitas MD Chest X-Ray [id number]/30/161452 Signed Impressions: Service Date/Time: Friday, September 30, 2016 15:23 - CONCLUSION: No acute cardiopulmonary disease demonstrated. Appropriate endotracheal tube tip position. Nasogastric tube courses into the stomach, tip not included on the study. Michael Freitas MD Objective Remarks Drips: Norepinephrine 10 mcg/m Propofol 50 micrograms per KG per minute Fentanyl 250 g per hour GENERAL: Young male, lying in bed, critically ill, sedated on the vent via trach. HEENT: Pupils equal, sluggishly reactive. Mucous membranes moist. NECK: No JVD. Trachea midline. Trach with some old dried blood. CHEST:Bilateral course crackles CARDIOVASCULAR: S1-S2 normal. + JVD. Early Diastolic murmur Grade 3 best heard LSB ABDOMEN: Soft, nontender, nondistended. No guarding. MUSCULOSKELETAL: . No peripheral edema. Distal pulses 2+. NEUROLOGICAL: When sedation held he intermittently appears to follow command with hand squeeze on the right upper extremity. Eyes open but does not make eye contact, + facial grimace, L facial droop, withdraw weakly on the left upper. Moves BLE spontaneously, right more than left. 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 Has hemorrhagic conversion and midline shift. MRI 10/18 multiple brain abscesses. Continue with supportive care. Remains critically ill at this time, took a turn for the worse with severe pulmonary edema and acute hypoxemic respiratory failure back on full mechanical ventilation Plan by systems: Neurologic: Multiple acute septic CVAs, brain abscesses Cerebral edema, Midline shift, 9 mm Small subarachnoid hemorrhage Right temporal hemorrhagic conversion Metabolic encephalopathy Agitated Delirium --MRI 10/18 shows multiple brain abscesses bilaterally. Large R sided stroke with midline shift 7.[address] Michelle recommends continued medical management --MRI 10/25/16 stable to slightly improved, abscesses. Improving cerebral edema , also improvement in the hemorrhagic conversion temporal region on the right --CT head 10/22: Slight improvement in right temporal hemorrhage with persistent vasogenic edema. Midline shift appears improved on my review --Propofol and fentanyl for sedation and vent synchrony, Keep RASS -2. --Ativan prn, resumed methadone 10/27 due to agitation/pain. Haldol on hold. --Keppra for seizure prophylaxis, patient with multiple brain abscesses --s/p failed trial of Seroquel. Respiratory: Acute hypoxic and hypercarbic respiratory failure Severe pulmonary edema ACV PEEP 12, FiO2 40%. Wean PEEP as tolerated -->12 to 10 --Vent bundle, head of bed 30 --Bronchoscopy 10/24/16 was essentially normal except for some pink frothy secretions suggestive of pulmonary edema Wean FiO2 for goal SPO2 greater than 90% --s/p trach 10/[address] Dominguez/Osiel Cardiovascular: Aortic valve endocarditis Severe aortic insufficiency, with probable AV perforation Persistent tachycardia Hypotension Severe pulmonary edema from severe AI, back on vent 10/24 --Dr. Velazquez will perform mini AVR on Saturday10/29/16, if cleared by neurosurgery --Dr. Michelle has documented low risk for intracranial hemorrhage --Levophed to keep MAP >65, currently 10 mcg/min. --ABX as described below 2d echo 10/01: aortic valve vegetations, moderate AI. Echo 10/17 Sev AI, probable AV perforation --CTS consulted, Dr. Velazquez and Dr. Fournier feel patient is high risk, and they plan on discussing with [facility] on 10/29. Renal: Acute kidney injury- resolved. Jerez for accurate I's and O's --Strict I/Os ---- Increase Bumex 1 gram IV q12. KCL 25 MEQ q12. Electrolyte replacement protocol FEN/GI: Acute protein calorie malnutritionmild Elevated LFTs Intravascular Volume Overload Nepro 35/hr. --Dulcolax PRN Daily BMP --Started back on BUmex and albumin 10/24/16, increase to 1 mg IV q12. Heme/ID: Infective endocarditis with embolic complications and severe aortic insufficiency Septic shock- resolved Anemia, likely secondary to hemolysis from valvulopathy New fever 10/01 blood cultures: MSSA --10/01 sputum culture: MSSA --10/02 blood cultures: MSSA --10/03 blood cultures: MSSA --10/04 bl cx: MSSA --10/05 bl cx: NGTD --10/06 bl cx: NGTD --10/15 Enterobacter in BAL --10/16 blood culture coag negative staph probable contamination --10/21 sputum Enterobacter --10/21 blood no growth --10/21 urine corynebacterium --10/24 sputum no growth --changed central line 10/23 vancomycin, flagyl d/cd 10/02. --oxacillin started 10/02-DCd 10/18 --Currenlty on nafcillin started by ID 10/18/16 for MSSA endocarditis, - Levofloxacin to cover Enterobacter 10/17 #12 Was on Cefepime 10/23-10/25. --gentamicin induction therapy per ID. started 10/05, d/c'd Infectious disease following: Dontfraid, --Give single dose of vanc 10/23 --received 2U PRBC 10/23, 1U PRBC 10/24 Endocrine: Hyperglycemia of critical illness -- SSI, every 6 hours, medium scale TSH 0.16, free T4 1.07, T3 < 0.5: likely sick euthyroid. Prophylaxis: --GI Prophylaxis Protonix IV DVT Prophylaxis -- SCDs Holding pharmacologic DVT prophylaxis in the setting of cerebral hemorrhage, multiple brain abscesses,anemia Lines: --New L subclavian placed 10/23 #6 --Jerez --Inactive: Right SCV CVL placed 10/12-10/23 ; 09/30 left SC TLC 09/30 was discontinued Critical Care: LEvel 3 f/u. It is my opinion that patient will without a valve replacement due to severe aortic regurgitation and probable perforation of the valve. He had had several episodes of flash pulmonary edema due to severe AI. Dr. Velazquez and Dr. Fournier indicate high operative risk but reportedly plan to confer with colleagues at [facility]. Operative plans currently on hold pending further improvement. Renetta Reynoso MD Oct 28, 2016 22:00
[2016-10-29] VITALS (17 sets, daily range): BP systolic 101–147; BP diastolic 48–77; PULSE 87–120; RESP 20–22; TEMP 98.1–101.9; O2SAT 97–100
--- NOTE | 2016-10-29 03:46 | RADRPT ---
EXAM DATE/TIME: 10/29/2016 03:03 [facility] COMPARISON: CHEST SINGLE AP, October 26, 2016, 5:32. INDICATIONS : Short of breath. MEDICAL HISTORY : None. SURGICAL HISTORY : Tracheostomy. ENCOUNTER: Subsequent ACUITY: 1 week PAIN SCORE: 0/10 LOCATION: Bilateral chest FINDINGS: Mild to moderate bilateral air space opacities are again noted, mainly mid and lower lungs. I don't s ee a significant change. No large effusion. No pneumothorax. Heart size stable, within normal limits. Tracheostomy again noted. There is a left subclavian central venous catheter are again seen, tip in t he superior vena cava. CONCLUSION: No significant change. Mild to moderate bilateral infiltrates persist. Michael Freitas MD on October 29, 2016 at 3:44 Board Certified Radiologist. This report was verified electronically.
[2016-10-29] MEDS: CHLORHEXIDINE GLUCONATE 2 % 1 PACK (2 CLOTHS) TOP SCH (04:00)
[2016-10-29] MEDS: NAFCILLIN INJ 2,000 MG in SODIUM CHLORIDE 0.9% INJ 100 ML IV SCH ×5 (04:00→19:44)
[2016-10-29 05:27] LABS: AUTOMATED NEUTROPHIL # 8.4 TH/MM3 (1.8-7.7); BASOPHIL % 0.4 % (0.0-2.0); EOSINOPHIL # 0.4 TH/MM3 (0-0.4); EOSINOPHIL % 3.6 % (0.0-4.0); HEMATOCRIT 22.6 % (39.0-51.0); HEMO FLAGS DIFF FINAL; LYMPH % 14.4 % (9.0-44.0); LYMPHOCYTE # 1.6 TH/MM3 (1.0-4.8); MEAN CELL VOLUME 86.6 FL (80.0-100.0); MEAN CORPUSCULAR HEMOGLOBIN 28.8 PG (27.0-34.0); MEAN CORPUSCULAR HGB CONC 33.2 % (32.0-36.0); NEUT % 76.6 % (16.0-70.0); PLATELET COUNT 208 TH/MM3 (150-450); RED BLOOD COUNT 2.61 MIL/MM3 (4.50-5.90); RED CELL DISTRIBUTION WIDTH 15.3 % (11.6-17.2); WHITE BLOOD COUNT 10.9 TH/MM3 (4.0-11.0)
[2016-10-29 05:56] LABS: BICARBONATE 29.7 MEQ/L (21.0-32.0); POTASSIUM 3.5 MEQ/L (3.5-5.1)
[2016-10-29] MEDS: METHADONE HCL 10 MG/10 ML ORAL SOLUTION PEG SCH ×3 (06:29→17:57)
--- NOTE | 2016-10-29 07:46 | HHI.CCPN ---
Subjective Remarks/Hospital Course Hospital Course: This is a 26yM who presents to the ED for altered mental status. On arrival, the patient was obtunded and emergently intubated. His roommate is with him and cannot provide much medical history. The remainder of the history is per EMS and ER documentation and my discussion with the ER physician. Per EMS and ED reports, patient was seen approximately 10 days prior to admission by an unknown physician in the clinic and given antibiotic for fever. After taking the antibiotic, the patient had a new red rash on his hands and healing on his feet. He he was seen in the emergency department 2 days prior to admission for low-grade fever and congestion, generalized weakness, lightheadedness. At that time she was given prescription for prednisone 40 mg daily for 5 days. The patient's landlord apparently found the patient today with altered mental status and called EMS. When EMS arrived, his GCS was 10. There is reports that the patient has a history of substance abuse and was recently in rehabilitation. I did talk to the roommate who confirms that the patient had recently gotten out of rehabilitation and was living with him. The remainder does say that he does not think the patient has been taking any illicit substances recently. In the emergency department, the patient was hypotensive, tachycardic. His head CT is significant for significant areas of infarction in the right frontal , temporal, and cerebellar regions as well as a small area of subarachnoid hemorrhage in the superior right parietal region. Patient has early 3 mm of midline shift as well as effacement on the right. Patient's laboratory data is significant for white blood cell count of 19,000, hemoglobin of 9.9, lactate of 3.7, creatinine 1.69, CK 372, troponin of 11.9. His urine drug screen is positive for opiates and amphetamines. I performed a bedside critical care ultrasound which demonstrated hyperdynamic left ventricular function and what appears to be aortic valve vegetations and I measured to be proximally 0.9 x 8.8 cm. This is associated with what appears to be severe aortic regurgitation. There is no pericardial effusion. Right ventricular function is preserved. A formal echo has been ordered to confirm these findings. Critical care medicine has been consulted to evaluate and manage his shock, altered mental status, multiple areas of infarction, and subarachnoid hemorrhage. Subjective: 10/01: seen and examined around 06:30am. patient on norepinephrine at 6 mcg/min , persistently in shock. patient localizes to pain x [address] extremities. repeat interval head CT with 4mm midline shift. echo with significant aortic valve vegetations and moderate aortic insufficiency. 10/02: now following commands intermittently on the RUE, still localizing in LUE , BLE. off vasopressors this morning. cultures growing staph, sensitivities to follow. 10/03: tachycardic overnight. off vasopressors this morning. not following commands this morning. still persistently febrile and wbc uptrended to 20k. 10/04: still encephalopathic. EEG negative for seizure activity. received 1 trial dose of oxacillin yesterday without evidence of allergic reaction. will let ID guide this therapy, but safe from a critical care standpoint to pursue oxacillin therapy. cultures persistently positive and wbc uptrending. still febrile. 10/05: persistent encephalopathy. but now briskly purposeful x 4. now on oxacillin. discussed with ID, and will plan to start gent induction. wbc downtrending today. still febrile. will continue surveilance cultures q48h until 2 sets negative. 10/06: neuro exam unchanged. still purposeful. blood cultures negative x 24h. will re-draw today. still persists on 1mcg/min levophed, though this has also slightly improved from yesterday. 10/07: neuro exam stable. very agitated, not following commands. blood cultures negative x 48h. off levophed. 10/08: neuro exam stable. CT with increased midline shift and persistent edema, particularly right side. back on levophed. febrile. wbc stable. 10/09: sodium not at goal, likely due to normal renal function. follows commands in the RUE, which is new. spontaneously moves BLE, LUE. wbc downtrending. hgb 7 this AM, but no other signs of end-organ damage from low o2 delivery. 10/10 failed to SBT today due to rapid shallow breathing also tachycardia. Patient found to have a significant anemia below 7 will transfuse and reattempt SBT later today 10/11: Flash pulmonary edema today requiring sedation protocol and vent manipulations. Hypoxemia to 70s. 10/12: Some improvement in gas exchange after heavy sedation and relaxant. 10/13: Tmax 100.3, requiring high dose sedation. 10/14: Leukocytosis resolving. Still way ahead on free water - increase diuretics. Prealbumin 17, adjust TFs accordingly. 10/15: deeply sedated s/p severe agitation from prior causing pulmonary edema and hypoxia. talked with family at length, not clinically improving on pathway, will require tracheostomy and PEG tube for further improvements. also still significantly + on volume. still on vasopressors, but does not clinically appear to be in significant shock. 10/16: CT scan today with new hemorrhage into right temporal stroke area with 9mm midline shift. neurosurgery aware. no significant improvements in neurologic exam. repeat echo pending. 10/17: Neuro exam remains unchanged. Per Dr. Michelle CT from 10/16/16 showed small amount of new hemorrhage circumferentially along the area of the previous right temporal infarct. There is increased right temporal edema and mass effect but relatively focal primarily along the ventricle, and there is not significant compression along the brainstem or cisterns. Continued medical management, increased Na 145-150. Neuro exam remains unchanged Tmax 100.3, white count increased to 14.3. Enterobacter in BAL 10/15, start Levofloxacin 10/18 MRI shows multiple brain abscesses bilaterally. Large R sided stroke with midline shift 7.[address] Michelle will review images. ID feels oxacillin sufficient. Clinically neuro slightly improved. Spontaneous eye opening moves right upper and lower extremities spontaneously. (Mother states he squeezes hand to command) 10/19: Neuro exam slowly improving, squeezes with both hands. WBC count improved. Intermittently requiring Levophed. Remains tachycardic. Start scheduled metoprolol, start scheduled methadone to reduce fentanyl requirement 10/20 stable overnight, continue methadone and attempt to reduce fentanyl 10/21 will adjust methadone dose recommendation for detoxification off opiate addiction 10/22: Received Ativan overnight for agitation, now sedated moving all extremities spontaneously. Sodium 153. Urine output is adequate. Chest x-ray shows mild pulmonary edema 10/23: Getting 2 units PRBC for Hb 6.9. Intermittently agitated, with tachycardia. Fever up to 103 today. We'll discuss with ID. We'll change central line. For agitation will attempt to use Precedex again. I discussed with Dr. Cartagena who was the climbing guide while patient had agitation and pulmonary edema while on Precedex. It is clear to me and Dr. Cartagena that it was not an adverse reaction but agitation related to rapid tapering of his sedation and using Precedex alone at that time 10/24: Placed back on ventilator today for hypoxemic respiratory failure, chest x -ray showing florid pulmonary edema. I was emergently called to the room today hypoxemic tachypneic breathing and 50s. Large amount of copious frothy blood- tinged secretions from the trach most likely secondary to severe pulmonary edema. Neuromuscular paralysis given for ventilator synchrony. Required aggressive suctioning and bag and mask ventilation for long time before stabilization. Planning for bronchoscopy to rule out any injury to bronchial tree or trach site bleeding. Pulmonary edema is secondary to severe AI 10/25: Remains critically ill but stable ventilatory support. Heavily sedated for ventilator synchrony. Chest x-ray shows pulmonary edema with interval improvement. MRI of the brain shows stable to slightly improved lesions and stroke no new hemorrhages 10/26: Remains intubated sedated. Discuss with cardiothoracic surgery yesterday. He is willing to perform aortic valve replacement this Saturday if cleared by neurosurgery Dr. Michelle. Dr. Michelle has documented that patient could proceed with cardiovascular surgery as indicated, and in his opinion relatively low risk of perioperative intracranial hemorrhage with surgery and anticoagulation. Family is being updated on regular basis 10/27 Tachypnea, tachycardia today, improved with ativan prn. Plan for CT brain/ chest today per previous order. Subjective: 10/28 Still on sedation with propofol/fentanyl for vent synchrony as nurses have noted intermittent agitation, tachypnea. When sedation held he intermittently appears to follow command with hand squeeze on the right upper extremity. Eyes open but does not make eye contact, + facial grimace, L facial droop, withdraw weakly on the left upper. Moves BLE spontaneously, right more than left. Noted Dr. Velazquez to seek input from [facility], surgery on hold for now. 10/29: Remains intubated sedate, on weaning doses of Levo. Follows commands by squeezing hands on sedation hold. Input from [facility] pending at this time Objective Vital Signs Date Time Temp Pulse Resp B/P Pulse Ox O2 Delivery O2 Flow Rate FiO2 10/29/16 07:00 100 Mechanical Ventilator 40 10/29/16 06:00 100 10/29/16 04:00 98.5 20 114/56 10/26/16 19:30 7.00 Intake and Output 10/28/16 10/28/16 10/29/16 08:00 16:00 00:00 Intake Total 1193 ml 1443 ml 1274 ml Output Total 500 ml 1550 ml 900 ml Balance 693 ml -107 ml 374 ml Result Diagram: 10/29/16 0450 10/29/16 0450 Imaging Last Impressions Head CT 09/30/16 785 Signed Impressions: Service Date/Time: Friday, September 30, 2016 16:31 - CONCLUSION: Noncontrast CT findings of concern for multiple intra-axial masses. There is small acute subarachnoid blood present and about 3 mm of leftward midline shift. MRI of the brain with and without contrast recommended. Michael Freitas MD Chest X-Ray 09/30/16 0348 Signed Impressions: Service Date/Time: Friday, September 30, 2016 15:23 - CONCLUSION: No acute cardiopulmonary disease demonstrated. Appropriate endotracheal tube tip position. Nasogastric tube courses into the stomach, tip not included on the study. Michael Freitas MD Objective Remarks Drips: Norepinephrine 10 mcg/m-start weaning, hypotension is mostly sedation related Propofol 50 micrograms per KG per minute Fentanyl 250 g per hour GENERAL: Young male, lying in bed, critically ill, sedated on the vent via trach. HEENT: Pupils equal, sluggishly reactive. Mucous membranes moist. NECK: No JVD. Trachea midline. Trach with some old dried blood. CHEST:Bilateral course crackles CARDIOVASCULAR: S1-S2 normal. + JVD. Early Diastolic murmur Grade 3 best heard LSB ABDOMEN: Soft, nontender, nondistended. No guarding. MUSCULOSKELETAL: . No peripheral edema. Distal pulses 2+. NEUROLOGICAL: When sedation held he follows command with hand squeeze on upper extremity. Eyes open makes eye contact, + facial grimace, L facial droop. Moves BLE spontaneously, right more than left. 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 Has hemorrhagic conversion and midline shift. MRI 10/18 multiple brain abscesses, MRI 10/25 showing interval improvement. Continue with supportive care. Remains critically ill at this time, took a turn for the worse with severe pulmonary edema and acute hypoxemic respiratory failure back on full mechanical ventilation Plan by systems: Neurologic: Multiple acute septic CVAs, brain abscesses Cerebral edema, Midline shift, 9 mm Small subarachnoid hemorrhage Right temporal hemorrhagic conversion Metabolic encephalopathy Agitated Delirium --MRI 10/18 shows multiple brain abscesses bilaterally. Large R sided stroke with midline shift 7.[address] Michelle recommends continued medical management --MRI 10/25/16 stable to slightly improved, abscesses. Improving cerebral edema , also improvement in the hemorrhagic conversion temporal region on the right --CT head 10/22: Slight improvement in right temporal hemorrhage with persistent vasogenic edema. Midline shift appears improved on my review --Propofol and fentanyl for sedation and vent synchrony, Keep RASS -2. --Ativan prn, resumed methadone 10/27 due to agitation/pain. Haldol on hold. --Keppra for seizure prophylaxis, patient with multiple brain abscesses --s/p failed trial of Seroquel. --Family and friends insist patient had been clean without drug use for the last 3 years -had been under close monitoring with drug screens for 3 years --UDS on admission positive for opiates and amphetamines due to prescribed Acetaminophen with codeine and Adderall Respiratory: Acute hypoxic and hypercarbic respiratory failure Severe pulmonary edema ACV FiO2 40%. SBT daily with down vent deliberation --Vent bundle, head of bed 30 --Bronchoscopy 10/24/16 was essentially normal except for some pink frothy secretions suggestive of pulmonary edema Wean FiO2 for goal SPO2 greater than 90% --s/p trach 10/[address] Dominguez/Osiel Cardiovascular: Aortic valve endocarditis Severe aortic insufficiency, with probable AV perforation Persistent tachycardia Hypotension Severe flash pulmonary edema from severe AI, back on vent 10/24 --Dr. Michelle neurosurgeon has documented low risk for intracranial hemorrhage from AVR after reviewing recent imaging --Levophed to keep MAP >60, SBP >90 --ABX as described below 2d echo 10/01: aortic valve vegetations, moderate AI. Echo 10/17 Sev AI, probable AV perforation --CTS Dr. Velazquez and Dr. Fournier feel patient is high risk, and they plan on discussing with [facility] on 10/29. Renal: Acute kidney injury- resolved. Jerez for accurate I's and O's --Strict I/Os -Bumex 1 gram IV q12. KCL 25 MEQ q12. Electrolyte replacement protocol FEN/GI: Acute protein calorie malnutritionmild Elevated LFTs Intravascular Volume Overload Nepro 35/hr. --Dulcolax PRN Daily BMP --Bumex and albumin 1 mg IV q12. Heme/ID: Infective endocarditis with embolic complications and severe aortic insufficiency Hypotension Anemia, likely secondary to hemolysis from valvulopathy New fever 10/01 blood cultures: MSSA --10/01 sputum culture: MSSA --10/02 blood cultures: MSSA --10/03 blood cultures: MSSA --10/04 bl cx: MSSA --10/05 bl cx: NGTD --10/06 bl cx: NGTD --10/15 Enterobacter in BAL --10/16 blood culture coag negative staph probable contamination --10/21 sputum Enterobacter --10/21 blood no growth --10/21 urine corynebacterium --10/24 sputum no growth --changed central line 10/23 vancomycin, Flagyl d/cd 10/02. --oxacillin started 10/02-DCd 10/18 --Currently on nafcillin started by ID 10/18/16 for MSSA endocarditis, - Levofloxacin to cover Enterobacter 10/17 #13 Was on Cefepime 10/23-10/25. --gentamicin induction therapy per ID. started 10/05, d/c'd Infectious disease following: Dontfraid, --Give single dose of vanc 10/23 --received 2U PRBC 10/23, 1U PRBC 10/24 Endocrine: Hyperglycemia of critical illness -- SSI, every 6 hours, medium scale TSH 0.16, free T4 1.07, T3 < 0.5: likely sick euthyroid. Prophylaxis: --GI Prophylaxis Protonix IV DVT Prophylaxis -- SCDs Holding pharmacologic DVT prophylaxis in the setting of cerebral hemorrhage, multiple brain abscesses,anemia Lines: --New L subclavian placed 10/23 #7 --Jerez --Inactive: Right SCV CVL placed 10/12-10/23 ; 09/30 left SC TLC 09/30 was discontinued Critical Care: Level 3 f/u. It is my opinion that patient will without a valve replacement due to severe aortic regurgitation and probable perforation of the valve. He had had several episodes of flash pulmonary edema due to severe AI. Dr. Velazquez and Dr. Fournier indicate high operative risk but reportedly plan to confer with colleagues at [facility]. Operative plans currently on hold pending further improvement. Mary Rodriguez MD Oct 29, 2016 07:46
[2016-10-29] MEDS: CHLORHEXIDINE 0.12% (ORAL KIT) 15 ML CUP MT SCH ×2 (08:00→19:44)
[2016-10-29] MEDS: DOCUSATE SODIUM 100 MG/10 ML UDC G-TUBE SCH ×2 (08:00→19:37)
[2016-10-29] MEDS: LEVOFLOXACIN 750 MG PREMIX INJ 150 ML IV SCH (08:44)
[2016-10-29] MEDS: SODIUM CHLORIDE 0.9% FLUSH 10 ML FLUSH IV FLUSH SCH ×2 (08:45→20:09)
[2016-10-29] MEDS: BUMETANIDE INJ 1 MG/4 ML VIAL IV PUSH SCH ×2 (08:45→20:09)
[2016-10-29] MEDS: levETIRAcetam 500 MG/5 ML UDC NG SCH ×2 (08:45→20:09)
[2016-10-29] MEDS: POTASSIUM CHLORIDE 25 MEQ EFFERVESCENT TAB NG SCH ×2 (08:45→20:09)
[2016-10-29] MEDS: PANTOPRAZOLE SODIUM 40 MG VIAL IV SCH (08:45)
[2016-10-29] MEDS: BENEPROTEIN POWDER 1 PACK G-TUBE SCH ×3 (08:46→17:57)
[2016-10-29] MEDS: ARTIFICIAL TEARS OPTH SOLN 15 ML BTL EACH EYE SCH ×3 (08:46→17:57)
[2016-10-29] MEDS: LORazepam 2 MG/ML VIAL IV PUSH PRN (10:44)
--- NOTE | 2016-10-29 10:54 | HHI.HCPN ---
Reason for visit a. To assist with evaluation and management of symptoms including:dyspnea, encephalopathy, agitation, constipation b. To assist medical decision maker(s) with: better understanding of current medical conditions; weighing benefits/burdens of medical treatment options; making medical treatment decisions. Subjective/Interval History s/p trach , PEG . CTS previously evaluated for aortic valve, no interventions at this time needs at least 4 weeks on antibiotics, at least 6 weeks out from brain hemorrhage before could consider surgical intervention. Repeat CT brain stable. Veins on mechanical vent, status post recurrent pulmonary edema requiring mechanical ventilation and sedation. Critical care discussed with CVS, neurosurgery regarding proceeding with valve replacement as patient's best chance for recovery/survival. Neurosurgery has cleared, patient with minimal risk of re-hemorrhage, CVS reevaluated plan for possible valve replacement, pending second opinion by additional CVS; second evaluation recommends further evaluation a tertiary center such as [facility]. Currently pending evaluation by [facility]. Labs are stable. WBC 10.9. H&H slowly trending down 7.5/22.6. Repeat sputum 10/24 normal respiratory traci. Most recent blood culture 10/21 No growth x 5days. Tolerating tube feeds, having BMs. Reported that he is still following commands on sedation. Seen in room no visitors present. Nursing to notify me when family arrives. Patient currently sedated fentanyl 250 mics/hour, propofol 45 mics per kilogram per minute. Levophed 8 mics. +On mechanical vent.+ Grimacing, appears restless. All 4 extremities spontaneously though does not follow commands for me. Localizes to touch on all 4 extremities. Does not Protrude tongue to command, does not follow any other commands for me. Nursing indicates will be giving prn lorazepam for restlessness. D/w RN, critical care. . Advance Directives Living Will: Never completed Health Care Surrogate: Never completed Durable Power of Warehouse Stock Clerk: Completed, but not made available (mother reports has POA, not clear if this includes medical decision making (SW has reviewed, this does NOT include healthcare decision making) ) Objective Vital Signs Date Time Temp Pulse Resp B/P Pulse Ox O2 Delivery O2 Flow Rate FiO2 10/29/16 09:17 97 Ventilator 40 10/29/16 09:17 97 40 10/29/16 07:00 100 Mechanical Ventilator 40 10/29/16 06:00 100 10/29/16 04:20 98 40 10/29/16 04:00 40 10/29/16 04:00 92 10/29/16 04:00 98.5 92 20 114/56 100 10/29/16 02:00 93 10/29/16 00:00 95 10/29/16 00:00 40 10/29/16 00:00 98.1 87 22 147/77 100 10/28/16 22:25 100 40 10/28/16 22:00 93 10/28/16 20:46 100 40 10/28/16 20:00 98.4 92 20 116/57 100 10/28/16 20:00 90 10/28/16 20:00 40 10/28/16 19:00 100 Mechanical Ventilator 40 10/28/16 18:00 93 10/28/16 16:00 98.2 92 20 118/57 100 10/28/16 16:00 92 10/28/16 16:00 40 10/28/16 15:44 100 40 10/28/16 14:00 95 10/28/16 13:48 20 10/28/16 12:00 89 10/28/16 12:00 40 10/28/16 12:00 99.5 89 20 118/56 100 10/28/16 10:45 100 40 Intake & Output 10/29/16 10/29/16 07:00 19:00 Intake Total 2313 ml Output Total 2000 ml Balance 313 ml IV Total 1629 ml Tube Feeding 484 ml Other 200 ml Output Urine Total 2000 ml # Bowel Movements 1 Physical Exam CONSTITUTIONAL/GENERAL: This is an adequately nourished patient, sedated but awake/restless on mechanical vent TUBES/LINES/DRAINS: central line.trach, PEG, carrera catheter , SCDs , Restraints x4. SKIN: No jaundice, or lesions. Embolic purpuric lesions on LT great toe. + Improving Sloughing/peeling of skin to tips of fingers, toes CARDIOVASCULAR: regular rhythm without murmur. No peripheral edema, periph pulses palpable RESPIRATORY/CHEST: Symmetric, unlabored respirations via tracheostomy to mechanical vent. Course air movement throughout. GASTROINTESTINAL: Abdomen soft,flat, nondistended. No palpable masses. No apparent tenderness to exam. TF infusing. BS normoactive. NEUROLOGICAL: Sedated on mechanical vent. Eyes open, looking around room does not track examiner. Does not follow any commands. Moving all 4 extremities spontaneously, appears to localize to touch does not follow my commands. PSYCHIATRIC: -- limited assess due to condition, sedation, appears restless . . Diagnostic Tests Laboratory Laboratory Tests Test 10/27/16 10/28/16 10/29/16 13:00 06:15 04:50 Sodium Level 143 MEQ/L 140 MEQ/L 141 MEQ/L (136-145) (136-145) (136-145) Potassium Level 3.5 MEQ/L 3.4 MEQ/L 3.5 MEQ/L (3.5-5.1) (3.5-5.1) (3.5-5.1) Chloride Level 106 MEQ/L 105 MEQ/L 105 MEQ/L (98-107) (98-107) (98-107) Carbon Dioxide Level 29.6 MEQ/L 29.5 MEQ/L 29.7 MEQ/L (21.0-32.0) (21.0-32.0) (21.0-32.0) Anion Gap 7 MEQ/L (5-15) 6 MEQ/L (5-15) 6 MEQ/L (5-15) Blood Urea Nitrogen 17 MG/DL (7-18) 18 MG/DL (7-18) 19 MG/DL (7-18) Creatinine 0.78 MG/DL 0.76 MG/DL 0.86 MG/DL (0.60-1.30) (0.60-1.30) (0.60-1.30) Estimat Glomerular Filtration 120 ML/MIN 124 ML/MIN 107 ML/MIN Rate (>89) (>89) (>89) Random Glucose 108 MG/DL 114 MG/DL 108 MG/DL (74-106) (74-106) (74-106) Calcium Level 8.1 MG/DL 8.4 MG/DL 8.2 MG/DL (8.5-10.1) (8.5-10.1) (8.5-10.1) White Blood Count 11.4 TH/MM3 10.9 TH/MM3 (4.0-11.0) (4.0-11.0) Red Blood Count 2.74 MIL/MM3 2.61 MIL/MM3 (4.50-5.90) (4.50-5.90) Hemoglobin 7.9 GM/DL 7.5 GM/DL (13.0-17.0) (13.0-17.0) Hematocrit 24.0 % 22.6 % (39.0-51.0) (39.0-51.0) Mean Corpuscular Volume 87.6 FL 86.6 FL (80.0-100.0) (80.0-100.0) Mean Corpuscular Hemoglobin 28.8 PG 28.8 PG (27.0-34.0) (27.0-34.0) Mean Corpuscular Hemoglobin 32.9 % 33.2 % Concent (32.0-36.0) (32.0-36.0) Red Cell Distribution Width 15.3 % 15.3 % (11.6-17.2) (11.6-17.2) Platelet Count 200 TH/MM3 208 TH/MM3 (150-450) (150-450) Mean Platelet Volume 8.5 FL 8.7 FL (7.0-11.0) (7.0-11.0) Neutrophils (%) (Auto) 76.0 % 76.6 % (16.0-70.0) (16.0-70.0) Lymphocytes (%) (Auto) 15.4 % 14.4 % (9.0-44.0) (9.0-44.0) Monocytes (%) (Auto) 4.1 % (0.0-8.0) 5.0 % (0.0-8.0) Eosinophils (%) (Auto) 3.8 % (0.0-4.0) 3.6 % (0.0-4.0) Basophils (%) (Auto) 0.7 % (0.0-2.0) 0.4 % (0.0-2.0) Neutrophils # (Auto) 8.6 TH/MM3 8.4 TH/MM3 (1.8-7.7) (1.8-7.7) Lymphocytes # (Auto) 1.7 TH/MM3 1.6 TH/MM3 (1.0-4.8) (1.0-4.8) Monocytes # (Auto) 0.5 TH/MM3 0.5 TH/MM3 (0-0.9) (0-0.9) Eosinophils # (Auto) 0.4 TH/MM3 0.4 TH/MM3 (0-0.4) (0-0.4) Basophils # (Auto) 0.1 TH/MM3 0.0 TH/MM3 (0-0.2) (0-0.2) CBC Comment DIFF FINAL DIFF FINAL Differential Comment Result Diagram: 10/29/16 0450 10/29/16 0450 Imaging Last Impressions Chest X-Ray 10/29/16599 Signed Impressions: Service Date/Time: Saturday, October 29, 2016 03:03 - CONCLUSION: No significant change. Mild to moderate bilateral infiltrates persist. Michael Freitas MD Chest CT 10/27/16599 Signed Impressions: Service Date/Time: Thursday, October 27, 2016 18:29 - CONCLUSION: 1. Small to moderate-sized simple appearing bilateral pleural effusions. 2. Dense bilateral lower lobe airspace consolidations are more extensive than expected for atelectasis. Differential considerations include aspiration and infection. 3. Diffuse bilateral groundglass opacities are consistent with diffuse infection versus ARDS. 4. Multiple bilateral non-cavitary somewhat ill-defined pulmonary nodules consistent with septic emboli in this patient with history of endocarditis. 5. Small pericardial effusion. Jose A Munoz MD Head CT 10/27/16 0000 Signed Impressions: Service Date/Time: Thursday, October 27, 2016 18:25 - CONCLUSION: Overall mild improvement in large region of right temporoparietal hemorrhage and surrounding vasogenic edema extending to the right basal ganglia, watershed distribution left parietooccipital infarct/edema and high left parietal cortex hemorrhage. Jose A Munoz MD Brain MRI 10/25/16 06 Signed Impressions: Service Date/Time: October 08:23 - CONCLUSION: 1. Continued large areas of abnormal contrast enhancement with surrounding edema involving the right temporal parietal cortex, the watershed distribution posteriorly on the left and patchy areas within the high cortices as well as the right cerebellar hemisphere. These have minimally decreased in size compared to previous. The overall amount of fluid associated with the lesions has decreased as well. Findings would suggest mild interval improvement compared to previous. There is decreasing right to left falcine shift. The amount of hemorrhage associated with these areas is stable. No new areas of hemorrhage are seen. Cody Coello MD Renal Ultrasound 09/30/16 0000 Signed Impressions: Service Date/Time: Friday, September 30, 2016 18:45 - CONCLUSION: Ultrasound appearance of the kidneys within normal limits. Carrera catheter in the urinary bladder. Nonspecific splenomegaly incidentally noted. Michael Freitas MD Head Magnetic Resonance Angiography 09/30/16 0000 Signed Impressions: Service Date/Time: Friday, September 30, 2016 17:42 - CONCLUSION: No occlusion, aneurysm or other acute intracranial vascular abnormality demonstrated. Michael Freitas MD Procedures 09/30left subclavian central line, left radial arterial line 10/12-right subclavian central line 6/-tracheostomy, bronchoscopy Assessment and Plan Disease Oriented Problem List: (1) Intracranial hemorrhage (2) Sepsis (3) Elevated troponin (4) Subarachnoid hemorrhage (5) Cerebral edema (6) Metabolic encephalopathy (7) Acute respiratory failure with hypoxia (8) Septic shock due to Staphylococcus aureus (9) Rash and nonspecific skin eruption (10) Substance abuse Symptom Scale: (1) Dyspnea 0-10 Scale: Unable to quantify (2) Encephalopathy 0-10 Scale: Unable to quantify (3) Agitation 0-10 Scale: Unable to quantify (4) Constipation 0-10 Scale: Unable to quantify Pertinent Non-Medical Issues Psychosocial:originally from [place], lived in [place] since . education. Was incarcerated and then in drug rehabilitation in [facility]. 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 Father (parents ) lived in [place] with support from family there. Supported by local friends, coworkers, apartment landlord. Spiritual:believes in God, no particular affiliation. would want ongoing television program director support. Legal: Patient is not able to participate in decision-making due to clinical condition. He is not . Per [place] statutes his parents would be legal decision makers, mother is serving as primary supported by his sister and father. She reports she has POA paperwork. Ethical issues impacting care: Important Contacts mother Felicita Roberts [phone] (HCP) sister Elizabeth Rios [phone] father Pradeep Rios [phone] . 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 Severe aortic regurgitation and possible leaflet perforation, CV consult is pending. He additionally developed small area of brain hemorrhage. He remains critically ill. Possible he can recover with prolonged resuscitation , prolonged ICU course. Remains very high risk for further complications and setbacks though possible he can survive this initial injury/illness. Code Status: Full Code Plan * Legal decision maker: Patient is not able to participate in decision-making due to clinical condition. He is not . Per [place] statutes his parents would be legal decision makers, mother is serving as primary supported by his sister and father. She reports she has POA paperwork. (palliative SW reviewed and indicates that it does not include medical decision-making) [ patient sister Anay providing support to patient mother and assists her with decision making.] * Goals: Ongoing meetings with patient family, daily or as needed. Patient sister appears to have a reasonable understanding of conditions, prognosis. Patient mother appears to have a very simple understanding of conditions and prognosis. Father also seems to have a very simple understanding of conditions and prognosis. Goals remain aggressive, Patient's mother is hoping for a miracle and wants to continue whatever measures available to help patient recover. They are open to ongoing to conversations as clinical course evolves. Sister Anay continues to support mother and father with updates and decision making, mother makes brief visits but too upsetting for her to stay for long periods. CVS currently re-evaluating for possible valve replacement, patient to be evaluated by [facility] for valve surgery there. * CODE STATUS: full SYMPTOMS: * Dyspnea- intubated for AMS. Status post tracheostomy. CXR w/ slight pulmonary edema , CXR unchanged= Mild to moderate bilateral infiltrates. + Enterobacter bronchial washing,on levaquin. Previously having T piece trials during the day, resumed on mechanical vent due to agitation, pulmonary edema. Currently on mechanical vent to trach;+ sedation * Agitation- hx substance abuse; hx ADD, on adderall.+embolic CVA,+hemorrhage. Has required significant sedatives during hospital course. Some improvement during course tolerating weaning previously following commands and more arousable however sedation has been resumed due to cardiac/pulmonary concerns. Currently on Diprivan 45 mics, fentanyl 250 mics; appears restless this morning , nursing giving PRN ativan * Encephalopathy- multifactorial-- +sepsis, embolic CVA, + hemorrhage, hx substance abuse, EEG neg seizure ; repeat CT brain 10/16, MRI 10/17. Repeat MRI stable, slight improvement. Mental status had been improved, still on sedation however reported to be following commands even on sedation (he did not follow for my exam--however is moving all 4 extremities spontaneously, eyes open.) * Constipation -resolved. +frequent loose BMs last week, after several doses of laxatives, improving, less bowel movements. +colace scheduled. other bowel pharmaceuticals are prn. Palliative care will continue to follow during hospital course as condition evolves, to assist patient/decision-maker with understanding of medical conditions, weighing benefits/burdens of treatment options, for clarification of goals of treatment. Additionally will assist with any symptoms of palliative concern. . Attestation To help prompt me to consider important information that might be impacting today's encounter and assessment, information from prior notes written by myself or my colleagues may have been "brought forward" into today's note. My signature on this note, however, is an attestation that I personally performed the exam, history, and/or decision-making noted today, and, unless otherwise indicated, the interactions with patient, family, and staff as well as the review of records all occurred today. I also attest that the listed assessment and stated plan reflect my best clinical judgment today based on the combination of historical information, prior notes, and today's exam/ interactions. When time spent is documented, it refers only to time spent today by the signer, or if indicated, combined time spent today by collaborating physician/nurse practitioner. Sandy Liu Oct 29, 2016 10:54
--- NOTE | 2016-10-29 12:04 | HHI.IDPN ---
Note Infectious Disease Note Patient remains on the vent. Sedated. Had temp spike of 101.9 a couple hours ago and now 99.9 after removal of blankets per RN. Now on 7 mcg of Levophed, down from 10 mcg earlier. Reportedly follows commands to move RUE and bilateral LE's. Discussed with RN. Trach - placed 10/15. Peg placed 10/17. Repeat TTE 10/16 noted - apparent perforation of aortic valve leaflet. severe aortic regurg. Sputum - Bronch washing 10/15 has Enterobacter. Sputum endotracheal - 10/16 - gram neg derrick. Sputum 10/21 - Enterobacter. 10/24 - Normal traci. Blood cultures 09/30 Staph aureus in 5 of 6 bottles. Blood culture 10/02 positive. staph aureus. Blood culture 10/03 positive. staph aureus. Blood culture 10/04 positive. staph aureus. Blood culture 10/05 negative. Blood culture 10/06 negative. Blood culture 10/16 - 1 bottle with staph coag neg. Blood culture 10/21 - No growth. Patient was brought to the emergency department with altered mental status. Was evaluated for rash at preceding ED evaluation 2 days prior. PAST MEDICAL HISTORY 1. Substance abuse. The patient was in rehabilitation 1 year ago. 2. ADHD. 3. Degenerative disk disease. ALLERGIES Reportedly the patient is allergic to SULFA, PENICILLIN, TORADOL, CODEINE. ANTIBIOTICS: Nafcillin Levaquin. OBJECTIVE: Vital Signs Date Time Temp Pulse Resp B/P Pulse Ox O2 Delivery O2 Flow Rate FiO2 10/29/16 09:17 97 Ventilator 40 10/29/16 09:17 97 40 10/29/16 07:00 100 Mechanical Ventilator 40 10/29/16 06:00 100 10/29/16 04:20 98 40 10/29/16 04:00 40 10/29/16 04:00 92 10/29/16 04:00 98.5 92 20 114/56 100 10/29/16 02:00 93 10/29/16 00:00 95 10/29/16 00:00 40 10/29/16 00:00 98.1 87 22 147/77 100 10/28/16 22:25 100 40 10/28/16 22:00 93 10/28/16 20:46 100 40 10/28/16 20:00 98.4 92 20 116/57 100 10/28/16 20:00 90 10/28/16 20:00 40 10/28/16 19:00 100 Mechanical Ventilator 40 10/28/16 18:00 93 10/28/16 16:00 98.2 92 20 118/57 100 10/28/16 16:00 92 10/28/16 16:00 40 10/28/16 15:44 100 40 10/28/16 14:00 95 10/28/16 13:48 20 10/28/16 10/28/16 10/29/16 15:00 23:00 07:00 Intake Total 1443 ml 1274 ml 1039 ml Output Total 1550 ml 900 ml 1100 ml Balance -107 ml 374 ml -61 ml IV Total 1001 ml 930 ml 699 ml Tube Feeding 262 ml 244 ml 240 ml Tube Irrigant 180 ml Other 100 ml 100 ml Output Urine Total 1550 ml 900 ml 1100 ml # Bowel Movements 2 0 1 Laboratory Tests Test 10/28/16 10/29/16 06:15 04:50 White Blood Count 11.4 TH/MM3 10.9 TH/MM3 Red Blood Count 2.74 MIL/MM3 2.61 MIL/MM3 Hemoglobin 7.9 GM/DL 7.5 GM/DL Hematocrit 24.0 % 22.6 % Mean Corpuscular Volume 87.6 FL 86.6 FL Mean Corpuscular Hemoglobin 28.8 PG 28.8 PG Mean Corpuscular Hemoglobin 32.9 % 33.2 % Concent Red Cell Distribution Width 15.3 % 15.3 % Platelet Count 200 TH/MM3 208 TH/MM3 Mean Platelet Volume 8.5 FL 8.7 FL Neutrophils (%) (Auto) 76.0 % 76.6 % Lymphocytes (%) (Auto) 15.4 % 14.4 % Monocytes (%) (Auto) 4.1 % 5.0 % Eosinophils (%) (Auto) 3.8 % 3.6 % Basophils (%) (Auto) 0.7 % 0.4 % Neutrophils # (Auto) 8.6 TH/MM3 8.4 TH/MM3 Lymphocytes # (Auto) 1.7 TH/MM3 1.6 TH/MM3 Monocytes # (Auto) 0.5 TH/MM3 0.5 TH/MM3 Eosinophils # (Auto) 0.4 TH/MM3 0.4 TH/MM3 Basophils # (Auto) 0.1 TH/MM3 0.0 TH/MM3 CBC Comment DIFF FINAL DIFF FINAL Differential Comment Laboratory Tests Test 10/27/16 10/28/16 10/29/16 13:00 06:15 04:50 Sodium Level 143 MEQ/L 140 MEQ/L 141 MEQ/L Potassium Level 3.5 MEQ/L 3.4 MEQ/L 3.5 MEQ/L Chloride Level 106 MEQ/L 105 MEQ/L 105 MEQ/L Carbon Dioxide Level 29.6 MEQ/L 29.5 MEQ/L 29.7 MEQ/L Anion Gap 7 MEQ/L 6 MEQ/L 6 MEQ/L Blood Urea Nitrogen 17 MG/DL 18 MG/DL 19 MG/DL Creatinine 0.78 MG/DL 0.76 MG/DL 0.86 MG/DL Estimat Glomerular Filtration 120 ML/MIN 124 ML/MIN 107 ML/MIN Rate Random Glucose 108 MG/DL 114 MG/DL 108 MG/DL Calcium Level 8.1 MG/DL 8.4 MG/DL 8.2 MG/DL IMAGING: Chest X-Ray 10/29/16599 Signed Impressions: Service Date/Time: Saturday, October 29, 2016 03:03 - CONCLUSION: No significant change. Mild to moderate bilateral infiltrates persist. Michael Freitas MD Chest X-Ray 10/26/16599 Signed Impressions: Service Date/Time: Wednesday, October 26, 2016 05:32 - CONCLUSION: 1. Patchy alveolar disease characteristic of edema or pneumonia. There has been no significant change when compared to the prior exam. Timmy Lynne MD Chest X-Ray 10/25/16599 Signed Impressions: Service Date/Time: October 04:41 - CONCLUSION: Mild improvement in aeration of right midlung, however otherwise not significantly changed. Angela Basilio MD Brain MRI 10/25/16599 Signed Impressions: Service Date/Time: October 08:23 - CONCLUSION: 1. Continued large areas of abnormal contrast enhancement with surrounding edema involving the right temporal parietal cortex, the watershed distribution posteriorly on the left and patchy areas within the high cortices as well as the right cerebellar hemisphere. These have minimally decreased in size compared to previous. The overall amount of fluid associated with the lesions has decreased as well. Findings would suggest mild interval improvement compared to previous. There is decreasing right to left falcine shift. The amount of hemorrhage associated with these areas is stable. No new areas of hemorrhage are seen. Cody Coello MD Chest X-Ray 10/24/16 0000 Signed Impressions: Service Date/Time: Monday, October 24, 2016 04:38 - CONCLUSION: Improvement in aeration of the lungs. Angela Basilio MD Chest X-Ray 10/18/16 0600 Signed Impressions: Service Date/Time: October 04:52 - CONCLUSION: Mild infiltrate in the right lower lobe. Central line in good position. Loyd Black MD Brain MRI 10/18/16 06 Signed Impressions: Service Date/Time: October 11:38 - CONCLUSION: 1. Grossly abnormal examination demonstrating large areas of edema with abnormal contrast enhancement in both hemispheres. There are focal rim enhancing fluid collection seen in the left posterior parietal cortex, centrally and the high left parietal cortex and in the right posterior temporal cortex. Findings would be concerning for cerebritis and abscess. 2. 7.5 mm of [id number] falcine shift. 3. Focal area of abnormal enhancement and edema within the right side of the cerebellum again concerning for cerebritis/abscess in this patient with known history of endocarditis. 4. This patient's examination has significantly worsened when compared to previous dated 09/30/16. Cody Coello MD Head CT 10/16/16 0000 Signed Impressions: Service Date/Time: Sunday, October 16, 2016 04:37 - CONCLUSION: Large area of edema in the right temporal lobe with now some central areas of hemorrhage clearly more impressive than on the , in particular the amount of hemorrhage present. I don't see drainable collection, it is more of an elongated curvilinear area. Small area stroke and edema in the medial left parietal lobe. Improvement in the lower left lateral parietal lesion with much less edema today Loyd Black MD Chest X-Ray 10/15/16 0000 Signed Impressions: Service Date/Time: Saturday, October 15, 2016 13:21 - CONCLUSION: Trach is in good position without pneumothorax. Jair Coello MD FACR PHYSICAL EXAMINATION GENERAL: Sedated. Unresponsive. HEENT: Pupils dilated. No icterus. Oropharynx: moist mucosa. NECK: No adenopathy. No swelling. Trach site without e/o infection. LUNGS: Bibasilar rhonchi L > R.. HEART: 2-3/6 systolic murmur at the left sternal border. Loud S1S2. No rubs or gallops. ABDOMEN: Bowel sounds are present, soft, no tenderness appreciated. EXTREMITIES: No clubbing or cyanosis or edema. Embolic purpuric lesions at the plantar aspect of the 4th and 5th toe on the left and the great toe on the right are resolved. few very tiny petechial lesions at dorsum of feet. SKIN: Resolved rash. Dry peeled skin at tips of digits and soles of feet with new underlying skin. NEURO: Sedated. PSYCH: Unable to assess. IMPRESSION 1. Septic shock due to Staph aureus. Persistent bacteremia. MSSA. Blood culture now negative reflecting clearance. 2. Acute endocarditis. [place] aortic valve. Staph aureus. 3. Acute respiratory failure. 4. Bilateral lung infiltrates, probably secondary to septic emboli. 5. Enterobacter PNA. 66. 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 7. History of IV drug abuse. Unknown current use status. 8. Antibiotic allergies. 9. Recent drug rash. Medicines in weeks before admission: Clindamycin, Doxycycline, acyclovir, Adderral, Tylenol, prednisone, omeprazole, Ibuprofen. 10. FEVER - C. line changed. WBC elevated. Probably infection related. Corynebacterium in urine is not significant. RECOMMENDATIONS: 1. Continue Nafcillin 2 grams Q 4 hours. 2. Continue Levaquin for Pneumonia due to Enterobacter. 3. Valve replacement when feasible. 4. Follow temps. 5. UA C&S. Urine looks cloudy in carrera. 5. Monitor new cultures. 6. Monitor clinical status. 7. Monitor temp. Discussed with DEA. Nemesio Jackson MD Oct 29, 2016 12:04
[2016-10-29] MEDS: ALBUMIN HUMAN 25% 25 GM/100 ML BAGP IV SCH (12:55)
[2016-10-29] MEDS: RESP: ALBUTEROL 2.5 MG/IPRATROPIUM 0.5 MG NEB (SCH) NEB ×3 (16:04→23:28)
[2016-10-29] MEDS: fentaNYL DRIP 250 ML IV SCH (19:39)
[2016-10-29] MEDS: PROPOFOL 1000 MG/100 ML INJ 100 ML IV SCH (19:57)
[2016-10-29] MEDS: NOREPINEPHRINE-DEXTROSE DRIP 250 ML IV SCH (21:28)
[2016-10-30] VITALS (14 sets, daily range): BP systolic 97–118; BP diastolic 46–57; PULSE 101–130; RESP 16–20; TEMP 98.1–99.3; O2SAT 94–100
[2016-10-30] MEDS: METHADONE HCL 10 MG/10 ML ORAL SOLUTION PEG SCH ×4 (00:19→17:29)
[2016-10-30] MEDS: NAFCILLIN INJ 2,000 MG in SODIUM CHLORIDE 0.9% INJ 100 ML IV SCH ×6 (00:20→20:45)
[2016-10-30] MEDS: ALBUMIN HUMAN 25% 25 GM/100 ML BAGP IV SCH ×2 (00:21→13:00)
[2016-10-30] MEDS: LORazepam 2 MG/ML VIAL IV PUSH PRN ×3 (01:17→14:20)
[2016-10-30] MEDS: RESP: ALBUTEROL 2.5 MG/IPRATROPIUM 0.5 MG NEB (SCH) NEB ×5 (03:30→21:38)
[2016-10-30] MEDS: CHLORHEXIDINE GLUCONATE 2 % 1 PACK (2 CLOTHS) TOP SCH (04:00)
[2016-10-30] MEDS: fentaNYL DRIP 250 ML IV SCH ×2 (04:47→19:22)
[2016-10-30] MEDS: PROPOFOL 1000 MG/100 ML INJ 100 ML IV SCH ×3 (06:00→19:05)
[2016-10-30] MEDS: NOREPINEPHRINE-DEXTROSE DRIP 250 ML IV SCH (06:01)
[2016-10-30] MEDS: DOCUSATE SODIUM 100 MG/10 ML UDC G-TUBE SCH ×2 (08:00→20:00)
[2016-10-30] MEDS ORDERED: NOREPINEPHRINE INJ 4 MG in SODIUM CHLOR 0.9% 250 ML INJ 250 ML IV SCH (08:45)
[2016-10-30] MEDS: BENEPROTEIN POWDER 1 PACK G-TUBE SCH ×3 (09:00→17:32)
[2016-10-30] MEDS: SODIUM CHLORIDE 0.9% FLUSH 10 ML FLUSH IV FLUSH SCH ×2 (09:00→21:00)
[2016-10-30] MEDS: ARTIFICIAL TEARS OPTH SOLN 15 ML BTL EACH EYE SCH ×3 (09:00→17:33)
[2016-10-30] MEDS: PANTOPRAZOLE SODIUM 40 MG VIAL IV SCH (09:04)
[2016-10-30] MEDS: POTASSIUM CHLORIDE 25 MEQ EFFERVESCENT TAB NG SCH ×2 (09:05→20:45)
[2016-10-30] MEDS: levETIRAcetam 500 MG/5 ML UDC NG SCH ×2 (09:05→20:44)
[2016-10-30] MEDS: BUMETANIDE INJ 1 MG/4 ML VIAL IV PUSH SCH ×2 (09:05→20:44)
[2016-10-30] MEDS: CHLORHEXIDINE 0.12% (ORAL KIT) 15 ML CUP MT SCH ×2 (09:08→20:00)
[2016-10-30] MEDS: LEVOFLOXACIN 750 MG PREMIX INJ 150 ML IV SCH (09:08)
--- NOTE | 2016-10-30 10:20 | HHI.NSPN ---
(Elliott Fragoso) History Chief Complaint: Trached & sedated (Elliott Fragoso) Interval History 10/01: The HPI is obtained from a review of the EMR due to the patient's altered mental status and intubation. This is a 26-year-old male who was found by his landlord on with altered mental status and called EMS. Upon arrival of EMS the patient had a GCS of 10. In the emergency department the patient was hypotensive and tachycardiac. He was emergently intubated for airway protection. His CT brain demonstrated significant areas of infarction to the right frontal, temporal and cerebellar regions as well as a small subarachnoid haemorrhage to the superior right parietal region. There was a 3 mm midline shift as well as effacement on the right. The patient's laboratory data is significant for white blood cell count of 19,000, haemoglobin of 9.9, lactate of 3.7, creatinine 1.69, CK 372, troponin of 11.9. His urine drug screen is positive for opiates and amphetamines. He was subsequently admitted to the [facility] for further management and monitoring. Per EMS and ED reports, patient was seen approximately 10 days prior to admission by an unknown physician in the clinic and given antibiotic for fever. After taking the antibiotic, the patient had a new red rash on his hands and healing on his feet. He he was seen in the emergency department 2 days prior to admission for low-grade fever and congestion, generalized weakness, lightheadedness. At that time she was given prescription for prednisone 40 mg daily for 5 days. The patient's landlord apparently found the patient today with altered mental status and called EMS. When EMS arrived, his GCS was 10. There is reports that the patient has a history of substance abuse and was recently in rehabilitation. The patient's roommate confirmed to the [employer] that the patient had recently been in rehabilitation due to a history of substance abuse. The roommate did not think he was doing any illicit drugs recently. 10/02: The patient remains intubated & sedated. He withdraws to painful stimuli to the extremities. 10/03: The patient is sedated with propofol & fentanyl. Nursing reports that he does move the RUE mostly but will move the BLE when the sedation is off. Nursing reported no movement of the LUE. When EEG was at the bedside with the sedation down the patient became quite agitated and was kicking out. 10/04: The patient remains sedated. Nursing states he continues to be agitated when the sedation is off. A CT brain yesterday demonstrated multiple evolving infarcts. 10/05: The patient is still sedated with propofol & fentanyl. He does not appear to be responding to verbal commands. 10/09: The patient remains sedated with propofol & fentanyl. He did open his right eye on his own as Nursing & this practitioner were talking in the room. He did withdraw on the left side to noxious stimuli. 10/11: The patient had received Nimbex prior to being seen due to fighting the vent. When seen the patient was becoming tachypneic and fighting against the vent again. His mother did say she was told he had a good night and yesterday was moving all extremities although the left upper was weaker. His CXR this morning was suggestive of infiltrates in layering effusions. The [employer]ic felt the patient was in flash pulmonary edema. 10/16: The patient is trached and sedated when seen this morning. He did have a CT brain this morning which demonstrated increased edema and new haemorrhage to the right temporal lobe. No drainable collection was identified. A small stroke with edema was also noted to the medial left parietal lobe. The lower left parietal lesion and edema had improved. He had trace movement of the LUE & BLE to noxious stimuli. 10/18: The patient is trached and sedated. He does withdraw to varying degrees to noxious stimuli and does open his eyes as well. 10/23: The patient remains trached. He is awake, alert and appears agitated. He is attempting to sit up in the bed and has soft wrist restraints on. Blood is noted on the counter in his room when seen. His haemoglobin was 6.9 this morning. 10/25: The patient was seen with Dr Michelle this morning and was awake and attempting to sit up. He did squeeze with his right hand to command. Shortly after that the patient went for an MRI brain which demonstrated mild improvement with the haemorrhage appearing stable. This afternoon when seen the patient is sedated on propofol due to agitation and is back on the vent. 10/30: The patient is trached and mechanically ventilated. He did have partial eye opening to verbal stimuli. He is on propofol. A norepinephrine drip is going for blood pressure support. (Elliott Fragoso) System Review Comments Unable to obtain ROS due to patient's clinical condition. (Elliott Fragoso ) Exam Results Vital Signs Date Time Temp Pulse Resp B/P Pulse Ox O2 Delivery O2 Flow Rate FiO2 10/30/16 08:27 100 Ventilator 40 10/30/16 06:00 105 10/30/16 04:00 98.1 20 118/56 10/26/16 19:30 7.00 Intake and Output 10/29/16 10/29/16 10/30/16 08:00 16:00 00:00 Intake Total 1039 ml 1669 ml 1564 ml Output Total 1100 ml 1150 ml 800 ml Balance -61 ml 519 ml 764 ml (Elliott Fragoso) Physical Examination GENERAL: Patient sedated on propofol but partially opened his eyes to verbal stimuli. HEENT: Normocephalic, atraumatic. CHEST: CTAB w/o W/R/R, equal excursion, nonlaboured, trached and on vent. CARDIOVASCULAR: S1S2 w/fast but regular rate w/o M/G/R, radial & pedal pulses 2 + bilaterally, cap refill < 2 sec. Monitor is sinus tachycardia w/o any ectopy noted. Norepinephrine drip for blood pressure support. ABDOMEN: Abdomen soft, nontender, positive bowel sounds, PEG tub w/enteral feeds. MUSCULOSKELETAL: Some withdrawal of right side extremities to noxious stimuli. No deformity or clubbing noted. INTEGUMENTARY: The tip of the right great toe with necrotic area. Continued desquamation of feet and hands. NEUROLOGICAL: Trached & sedated on propofol. Partial eye opening to verbal stimuli. Facial grimace but no eye opening to noxious stimuli to nailbeds. Slight withdrawal RLE>RUE to noxious stimuli but none to LUE or LLE. (Elliott Fragoso) Medical Decision Making Impression and Plan Impression: Multiple acute septic CVAs Cerebral edema Small subarachnoid hemorrhage Midline shift, 3 mm Metabolic encephalopathy Septic shock Infective endocarditis CT brain demonstrates slight improvement of right temporal lobe haemorrhage w/o change in vasogenic edema, remainder of exam w/o significant change MRI brain demonstrated continued large area of abnormal contrast enhancement with surrounding edema to the right temporoparietal cortex, the watershed distribution posteriorly on the left and patchy areas w/i the high cortices as well as the right cerebellar hemisphere which have minimal decrease in size, decreased right to left falcine shift and stable haemorrhage, no new haemorrhage noted Patient with slow improvement in neurological function, following commands but not consistently Patient with poor neurological response, limited movement of right extremities Plan: Stat CT brain for any further decline in neurological status Frequent neuro checks Continue 3% saline & monitor sodium level Critical care management by [employer] Antibiotics per Infectious Disease (Elliott Fragoso) Attending Statement I have personally seen and examined the patient on the date of this note. Pertinent documentation and study results have been reviewed by the undersigned. I have personally developed the treatment plan and performed medical decision making. Agree with findings, exam, and treatment plan as noted above. Most recent CT scan head with some further improvement in degree of edema and mass effect. No new lesions noted. He is stable for cardiothoracic surgical procedures and anticoagulation from a neurosurgery standpoint. (Pino Michelle MD) Elliott Fragoso Oct 30, 2016 10:20 Pino Michelle MD Oct 30, 2016 18:02
[2016-10-30] MEDS: ACETAMINOPHEN 325 MG TAB PO PRN (11:00)
--- NOTE | 2016-10-30 11:07 | HHI.CCPN ---
Subjective Remarks/Hospital Course Hospital Course: This is a 26yM who presents to the ED for altered mental status. On arrival, the patient was obtunded and emergently intubated. His roommate is with him and cannot provide much medical history. The remainder of the history is per EMS and ER documentation and my discussion with the ER physician. Per EMS and ED reports, patient was seen approximately 10 days prior to admission by an unknown physician in the clinic and given antibiotic for fever. After taking the antibiotic, the patient had a new red rash on his hands and healing on his feet. He he was seen in the emergency department 2 days prior to admission for low-grade fever and congestion, generalized weakness, lightheadedness. At that time she was given prescription for prednisone 40 mg daily for 5 days. The patient's landlord apparently found the patient today with altered mental status and called EMS. When EMS arrived, his GCS was 10. There is reports that the patient has a history of substance abuse and was recently in rehabilitation. I did talk to the roommate who confirms that the patient had recently gotten out of rehabilitation and was living with him. The remainder does say that he does not think the patient has been taking any illicit substances recently. In the emergency department, the patient was hypotensive, tachycardic. His head CT is significant for significant areas of infarction in the right frontal , temporal, and cerebellar regions as well as a small area of subarachnoid hemorrhage in the superior right parietal region. Patient has early 3 mm of midline shift as well as effacement on the right. Patient's laboratory data is significant for white blood cell count of 19,000, hemoglobin of 9.9, lactate of 3.7, creatinine 1.69, CK 372, troponin of 11.9. His urine drug screen is positive for opiates and amphetamines. I performed a bedside critical care ultrasound which demonstrated hyperdynamic left ventricular function and what appears to be aortic valve vegetations and I measured to be proximally 0.9 x 8.8 cm. This is associated with what appears to be severe aortic regurgitation. There is no pericardial effusion. Right ventricular function is preserved. A formal echo has been ordered to confirm these findings. Critical care medicine has been consulted to evaluate and manage his shock, altered mental status, multiple areas of infarction, and subarachnoid hemorrhage. Subjective: 10/01: seen and examined around 06:30am. patient on norepinephrine at 6 mcg/min , persistently in shock. patient localizes to pain x [address] extremities. repeat interval head CT with 4mm midline shift. echo with significant aortic valve vegetations and moderate aortic insufficiency. 10/02: now following commands intermittently on the RUE, still localizing in LUE , BLE. off vasopressors this morning. cultures growing staph, sensitivities to follow. 10/03: tachycardic overnight. off vasopressors this morning. not following commands this morning. still persistently febrile and wbc uptrended to 20k. 10/04: still encephalopathic. EEG negative for seizure activity. received 1 trial dose of oxacillin yesterday without evidence of allergic reaction. will let ID guide this therapy, but safe from a critical care standpoint to pursue oxacillin therapy. cultures persistently positive and wbc uptrending. still febrile. 10/05: persistent encephalopathy. but now briskly purposeful x 4. now on oxacillin. discussed with ID, and will plan to start gent induction. wbc downtrending today. still febrile. will continue surveilance cultures q48h until 2 sets negative. 10/06: neuro exam unchanged. still purposeful. blood cultures negative x 24h. will re-draw today. still persists on 1mcg/min levophed, though this has also slightly improved from yesterday. 10/07: neuro exam stable. very agitated, not following commands. blood cultures negative x 48h. off levophed. 10/08: neuro exam stable. CT with increased midline shift and persistent edema, particularly right side. back on levophed. febrile. wbc stable. 10/09: sodium not at goal, likely due to normal renal function. follows commands in the RUE, which is new. spontaneously moves BLE, LUE. wbc downtrending. hgb 7 this AM, but no other signs of end-organ damage from low o2 delivery. 10/10 failed to SBT today due to rapid shallow breathing also tachycardia. Patient found to have a significant anemia below 7 will transfuse and reattempt SBT later today 10/11: Flash pulmonary edema today requiring sedation protocol and vent manipulations. Hypoxemia to 70s. 10/12: Some improvement in gas exchange after heavy sedation and relaxant. 10/13: Tmax 100.3, requiring high dose sedation. 10/14: Leukocytosis resolving. Still way ahead on free water - increase diuretics. Prealbumin 17, adjust TFs accordingly. 10/15: deeply sedated s/p severe agitation from prior causing pulmonary edema and hypoxia. talked with family at length, not clinically improving on pathway, will require tracheostomy and PEG tube for further improvements. also still significantly + on volume. still on vasopressors, but does not clinically appear to be in significant shock. 10/16: CT scan today with new hemorrhage into right temporal stroke area with 9mm midline shift. neurosurgery aware. no significant improvements in neurologic exam. repeat echo pending. 10/17: Neuro exam remains unchanged. Per Dr. Michelle CT from 10/16/16 showed small amount of new hemorrhage circumferentially along the area of the previous right temporal infarct. There is increased right temporal edema and mass effect but relatively focal primarily along the ventricle, and there is not significant compression along the brainstem or cisterns. Continued medical management, increased Na 145-150. Neuro exam remains unchanged Tmax 100.3, white count increased to 14.3. Enterobacter in BAL 10/15, start Levofloxacin 10/18 MRI shows multiple brain abscesses bilaterally. Large R sided stroke with midline shift 7.[address] Michelle will review images. ID feels oxacillin sufficient. Clinically neuro slightly improved. Spontaneous eye opening moves right upper and lower extremities spontaneously. (Mother states he squeezes hand to command) 10/19: Neuro exam slowly improving, squeezes with both hands. WBC count improved. Intermittently requiring Levophed. Remains tachycardic. Start scheduled metoprolol, start scheduled methadone to reduce fentanyl requirement 10/20 stable overnight, continue methadone and attempt to reduce fentanyl 10/21 will adjust methadone dose recommendation for detoxification off opiate addiction 10/22: Received Ativan overnight for agitation, now sedated moving all extremities spontaneously. Sodium 153. Urine output is adequate. Chest x-ray shows mild pulmonary edema 10/23: Getting 2 units PRBC for Hb 6.9. Intermittently agitated, with tachycardia. Fever up to 103 today. We'll discuss with ID. We'll change central line. For agitation will attempt to use Precedex again. I discussed with Dr. Cartagena who was the senior technologist while patient had agitation and pulmonary edema while on Precedex. It is clear to me and Dr. Cartagena that it was not an adverse reaction but agitation related to rapid tapering of his sedation and using Precedex alone at that time 10/24: Placed back on ventilator today for hypoxemic respiratory failure, chest x -ray showing florid pulmonary edema. I was emergently called to the room today hypoxemic tachypneic breathing and 50s. Large amount of copious frothy blood- tinged secretions from the trach most likely secondary to severe pulmonary edema. Neuromuscular paralysis given for ventilator synchrony. Required aggressive suctioning and bag and mask ventilation for long time before stabilization. Planning for bronchoscopy to rule out any injury to bronchial tree or trach site bleeding. Pulmonary edema is secondary to severe AI 10/25: Remains critically ill but stable ventilatory support. Heavily sedated for ventilator synchrony. Chest x-ray shows pulmonary edema with interval improvement. MRI of the brain shows stable to slightly improved lesions and stroke no new hemorrhages 10/26: Remains intubated sedated. Discuss with cardiothoracic surgery yesterday. He is willing to perform aortic valve replacement this Saturday if cleared by neurosurgery Dr. Michelle. Dr. Michelle has documented that patient could proceed with cardiovascular surgery as indicated, and in his opinion relatively low risk of perioperative intracranial hemorrhage with surgery and anticoagulation. Family is being updated on regular basis 10/27 Tachypnea, tachycardia today, improved with ativan prn. Plan for CT brain/ chest today per previous order. Subjective: 10/28 Still on sedation with propofol/fentanyl for vent synchrony as nurses have noted intermittent agitation, tachypnea. When sedation held he intermittently appears to follow command with hand squeeze on the right upper extremity. Eyes open but does not make eye contact, + facial grimace, L facial droop, withdraw weakly on the left upper. Moves BLE spontaneously, right more than left. Noted Dr. Velazquez to seek input from [facility], surgery on hold for now. 10/29: Remains intubated sedate, on weaning doses of Levo. Follows commands by squeezing hands on sedation hold. Input from [facility] pending at this time 10/30: Remains on vent, on 7 mcg/min of Levo, MAP 80-85, weaned to 5 mcg/min. Instructed to RN to wean Levo to keep MAP >60. I have spoken to the office of Dr. Alan Edmondson, CT surgeon at [facility]. Waiting to hear back from him. Second opinion from pending Objective Vital Signs Date Time Temp Pulse Resp B/P Pulse Ox O2 Delivery O2 Flow Rate FiO2 10/30/16 08:27 100 Ventilator 40 10/30/16 06:00 105 10/30/16 04:00 98.1 20 118/56 10/26/16 19:30 7.00 Intake and Output 10/29/16 10/29/16 10/30/16 08:00 16:00 00:00 Intake Total 1039 ml 1669 ml 1564 ml Output Total 1100 ml 1150 ml 800 ml Balance -61 ml 519 ml 764 ml Result Diagram: 10/29/16 0450 10/29/16 0450 Imaging Last Impressions Head CT 09/30/161452 Signed Impressions: Service Date/Time: Friday, September 30, 2016 16:31 - CONCLUSION: Noncontrast CT findings of concern for multiple intra-axial masses. There is small acute subarachnoid blood present and about 3 mm of leftward midline shift. MRI of the brain with and without contrast recommended. Michael Freitas MD Chest X-Ray 09/30/16 2172 Signed Impressions: Service Date/Time: Friday, September 30, 2016 15:23 - CONCLUSION: No acute cardiopulmonary disease demonstrated. Appropriate endotracheal tube tip position. Nasogastric tube courses into the stomach, tip not included on the study. Michael Freitas MD Objective Remarks Drips: Norepinephrine 7 mcg/m weaned to 5 now Propofol 50 micrograms per KG per minute Fentanyl 250 g per hour GENERAL: Young male, lying in bed, critically ill, sedated on the vent via trach. HEENT: Pupils equal, sluggishly reactive. Mucous membranes moist. NECK: No JVD. Trachea midline. Trach with some old dried blood. CHEST: Bilateral course crackles CARDIOVASCULAR: S1-S2 normal. + JVD. Early Diastolic murmur Grade 3 best heard LSB ABDOMEN: Soft, nontender, nondistended. No guarding. MUSCULOSKELETAL: No peripheral edema. Distal pulses 2+. NEUROLOGICAL: When sedation held he intermittently follows command with hand squeeze on right upper extremity. Eyes open makes eye contact, L facial droop. Moves BLE spontaneously, right more than left. 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 Has hemorrhagic conversion and midline shift. MRI 10/18 multiple brain abscesses, MRI 10/25 showing interval improvement with some resolution of bleed and improved midline shift and edema. Continue with supportive care. Remains critically ill at this time, took a turn for the worse with severe pulmonary edema and acute hypoxemic respiratory failure back on full mechanical ventilation Plan by systems: Neurologic: Multiple acute septic CVAs, brain abscesses Cerebral edema, Midline shift Small subarachnoid hemorrhage Right temporal hemorrhagic conversion Metabolic encephalopathy Agitated Delirium --Per Neurosurgeon Dr. Michelle's note on 10/25/16: "MRI of the brain 10/25/16 images reveal mild improvement in the edema and mass effect related to the right temporal lesion. There appears to be less hemorrhage surrounding the right temporal lesion. The patient could proceed with cardiovascular surgery as indicated. Review of the literature reveals what appears to be a relatively low risk of perioperative intracranial hemorrhage with surgery and anticoagulation" --MRI 10/18 shows multiple brain abscesses bilaterally. Large R sided stroke with midline shift 7.[address] Michelle recommends continued medical management --MRI 10/25/16 stable to slightly improved, abscesses. Improving cerebral edema , also improvement in the hemorrhagic conversion temporal region on the right --CT head 10/22: Slight improvement in right temporal hemorrhage with persistent vasogenic edema. Midline shift appears improved on my review --Propofol and fentanyl for sedation and vent synchrony, Keep RASS -2. --Ativan prn, resumed methadone 10/27 due to agitation/pain. Haldol on hold. --Keppra for seizure prophylaxis, patient with multiple brain abscesses --s/p failed trial of Seroquel. --Family and friends insist patient had been clean without drug use for the last 3 years -had been under close monitoring with drug screens for 3 years --UDS on admission positive for opiates and amphetamines due to prescribed Acetaminophen with codeine and Adderall Respiratory: Acute hypoxic and hypercarbic respiratory failure Severe pulmonary edema ACV FiO2 40%. SBT daily without vent liberation --Vent bundle, head of bed 30 --Bronchoscopy 10/24/16 was essentially normal except for some pink frothy secretions suggestive of pulmonary edema Wean FiO2 for goal SPO2 greater than 90% --s/p trach 10/[address] Dominguez/Osiel (High trach performed to permit probable CT surgery for AVR) Cardiovascular: Aortic valve endocarditis Severe aortic insufficiency, with probable AV perforation Hypotension Severe flash pulmonary edema from severe AI, back on vent 10/24 --Dr. Michelle neurosurgeon has documented low risk for intracranial hemorrhage from AVR after reviewing recent imaging --Considered high risk for valve replacement here at [place]. Second opinion from [facility] pending -- I have also contacted Dr. Alan Edmondson's office in [place] to see whether he would consider AVR on this patient --Levophed to keep MAP >60, SBP >90, currently weaned to 5 mcg/min --ABX as described below 2d echo 10/01: aortic valve vegetations, moderate AI. Echo 10/17 Sev AI, probable AV perforation --CTS Dr. Velazquez and Dr. Fournier feel patient is high risk, and they plan on discussing with [facility] on 10/29. Renal: Acute kidney injury- resolved. Jerez for accurate I's and O's --Strict I/Os -Bumex 1 gram IV q12. KCL 25 MEQ q12. Electrolyte replacement protocol FEN/GI: Acute protein calorie malnutritionmild Elevated LFTs Intravascular Volume Overload Nepro 35/hr. --Dulcolax PRN Daily BMP --Bumex and albumin 1 mg IV q12. Heme/ID: Infective endocarditis with embolic complications and severe aortic insufficiency Hypotension Anemia, likely secondary to hemolysis from valvulopathy New fever 10/01 blood cultures: MSSA --10/01 sputum culture: MSSA --10/02 blood cultures: MSSA --10/03 blood cultures: MSSA --10/04 bl cx: MSSA --10/05 bl cx: NGTD --10/06 bl cx: NGTD --10/15 Enterobacter in BAL --10/16 blood culture coag negative staph probable contamination --10/21 sputum Enterobacter --10/21 blood no growth --10/21 urine corynebacterium --10/24 sputum no growth --See cardiac assessment and plan --changed central line 10/23 vancomycin, Flagyl d/cd 10/02. --oxacillin started 10/02-DCd 10/18 --Currently on nafcillin started by ID 10/18/16 for MSSA endocarditis, - Levofloxacin to cover Enterobacter 10/17. Was on Cefepime 10/23-10/25. --gentamicin induction therapy per ID. started 10/05, d/c'd Infectious disease following: Dontfraid, --Give single dose of vanc 10/23 --received 2U PRBC 10/23, 1U PRBC 10/24 Endocrine: Hyperglycemia of critical illness -- SSI, every 6 hours, medium scale TSH 0.16, free T4 1.07, T3 < 0.5: likely sick euthyroid. Prophylaxis: --GI Prophylaxis Protonix IV DVT Prophylaxis -- SCDs Holding pharmacologic DVT prophylaxis in the setting of cerebral hemorrhage, multiple brain abscesses,anemia Lines: --New L subclavian placed 10/23 --Jerez --Inactive: Right SCV CVL placed 10/12-10/23 ; 09/30 left SC TLC 09/30 was discontinued Critical Care: 35 MIN including discussions with office of Dr. Alan Edmondson It is my opinion that patient will without a valve replacement due to severe aortic regurgitation and probable perforation of the valve. He had had several episodes of flash pulmonary edema due to severe AI. Dr. Velazquez and Dr. Fournier indicate high operative risk but reportedly plan to confer with colleagues at [facility]. Operative plans currently on hold pending further improvement. I have also contacted Dr. Alan Edmondson's office ([facility] in [place]) to see whether he will accept the patient for AVR Mary Rodriguez MD Oct 30, 2016 11:07
--- NOTE | 2016-10-30 11:35 | HHI.IDPN ---
Note Infectious Disease Note Patient remains on the vent. Sedated. HR in 130s Afebrile. Now on 5 mcg of Levophed. Has loose stools. Reportedly follows commands to move RUE and bilateral LE's. Discussed with RN. Trach - placed 10/15. Peg placed 10/17. Repeat TTE 10/16 noted - apparent perforation of aortic valve leaflet. severe aortic regurg. Sputum - Bronch washing 10/15 has Enterobacter. Sputum endotracheal - 10/16 - gram neg derrick. Sputum 10/21 - Enterobacter. 10/24 - Normal traci. Blood cultures 09/30 Staph aureus in 5 of 6 bottles. Blood culture 10/02 positive. staph aureus. Blood culture 10/03 positive. staph aureus. Blood culture 10/04 positive. staph aureus. Blood culture 10/05 negative. Blood culture 10/06 negative. Blood culture 10/16 - 1 bottle with staph coag neg. Blood culture 10/21 - No growth. Patient was brought to the emergency department with altered mental status. Was evaluated for rash at preceding ED evaluation 2 days prior. PAST MEDICAL HISTORY 1. Substance abuse. The patient was in rehabilitation 1 year ago. 2. ADHD. 3. Degenerative disk disease. ALLERGIES Reportedly the patient is allergic to SULFA, PENICILLIN, TORADOL, CODEINE. ANTIBIOTICS: Nafcillin Levaquin. OBJECTIVE: Vital Signs Date Time Temp Pulse Resp B/P Pulse Ox O2 Delivery O2 Flow Rate FiO2 10/30/16 08:27 100 Ventilator 40 10/30/16 08:27 100 40 10/30/16 06:00 105 10/30/16 04:00 40 10/30/16 04:00 98.1 105 20 118/56 100 10/30/16 04:00 101 10/30/16 03:31 100 40 10/30/16 02:00 122 10/30/16 01:02 100 40 10/30/16 00:00 122 10/30/16 00:00 40 10/30/16 00:00 98.9 102 20 109/52 100 10/29/16 22:00 96 10/29/16 20:28 100 40 10/29/16 20:00 98.7 91 20 101/54 100 10/29/16 20:00 92 10/29/16 20:00 40 10/29/16 19:00 100 Mechanical Ventilator 40 10/29/16 18:00 120 10/29/16 16:05 100 40 10/29/16 16:00 102 10/29/16 16:00 40 10/29/16 16:00 99.2 96 20 101/57 100 10/29/16 14:00 102 10/29/16 13:00 20 10/29/16 12:47 100 40 10/29/16 12:00 106 10/29/16 12:00 40 10/29/16 12:00 99.5 94 20 101/48 100 10/29/16 10/29/16 10/30/16 15:00 23:00 07:00 Intake Total 1669 ml 1564 ml 974 ml Output Total 1150 ml 800 ml 1600 ml Balance 519 ml 764 ml -626 ml IV Total 1184 ml 866 ml 612 ml Tube Feeding 345 ml 598 ml 262 ml Tube Irrigant 140 ml Other 100 ml 100 ml Output Urine Total 1150 ml 800 ml 1600 ml # Bowel Movements 1 1 Laboratory Tests Test 10/29/16 04:50 White Blood Count 10.9 TH/MM3 Red Blood Count 2.61 MIL/MM3 Hemoglobin 7.5 GM/DL Hematocrit 22.6 % Mean Corpuscular Volume 86.6 FL Mean Corpuscular Hemoglobin 28.8 PG Mean Corpuscular Hemoglobin 33.2 % Concent Red Cell Distribution Width 15.3 % Platelet Count 208 TH/MM3 Mean Platelet Volume 8.7 FL Neutrophils (%) (Auto) 76.6 % Lymphocytes (%) (Auto) 14.4 % Monocytes (%) (Auto) 5.0 % Eosinophils (%) (Auto) 3.6 % Basophils (%) (Auto) 0.4 % Neutrophils # (Auto) 8.4 TH/MM3 Lymphocytes # (Auto) 1.6 TH/MM3 Monocytes # (Auto) 0.5 TH/MM3 Eosinophils # (Auto) 0.4 TH/MM3 Basophils # (Auto) 0.0 TH/MM3 CBC Comment DIFF FINAL Differential Comment Laboratory Tests Test 10/29/16 04:50 Sodium Level 141 MEQ/L Potassium Level 3.5 MEQ/L Chloride Level 105 MEQ/L Carbon Dioxide Level 29.7 MEQ/L Anion Gap 6 MEQ/L Blood Urea Nitrogen 19 MG/DL Creatinine 0.86 MG/DL Estimat Glomerular Filtration 107 ML/MIN Rate Random Glucose 108 MG/DL Calcium Level 8.2 MG/DL IMAGING: Chest X-Ray 10/29/16599 Signed Impressions: Service Date/Time: Saturday, October 29, 2016 03:03 - CONCLUSION: No significant change. Mild to moderate bilateral infiltrates persist. Michael Freitas MD Chest X-Ray 10/26/16599 Signed Impressions: Service Date/Time: Wednesday, October 26, 2016 05:32 - CONCLUSION: 1. Patchy alveolar disease characteristic of edema or pneumonia. There has been no significant change when compared to the prior exam. Timmy Lynne MD Chest X-Ray 10/25/16599 Signed Impressions: Service Date/Time: October 04:41 - CONCLUSION: Mild improvement in aeration of right midlung, however otherwise not significantly changed. Angela Basilio MD Brain MRI 10/25/16599 Signed Impressions: Service Date/Time: October 08:23 - CONCLUSION: 1. Continued large areas of abnormal contrast enhancement with surrounding edema involving the right temporal parietal cortex, the watershed distribution posteriorly on the left and patchy areas within the high cortices as well as the right cerebellar hemisphere. These have minimally decreased in size compared to previous. The overall amount of fluid associated with the lesions has decreased as well. Findings would suggest mild interval improvement compared to previous. There is decreasing right to left falcine shift. The amount of hemorrhage associated with these areas is stable. No new areas of hemorrhage are seen. Cody Coello MD Chest X-Ray 10/18/16599 Signed Impressions: Service Date/Time: October 04:52 - CONCLUSION: Mild infiltrate in the right lower lobe. Central line in good position. Loyd Black MD Brain MRI 10/18/16599 Signed Impressions: Service Date/Time: October 11:38 - CONCLUSION: 1. Grossly abnormal examination demonstrating large areas of edema with abnormal contrast enhancement in both hemispheres. There are focal rim enhancing fluid collection seen in the left posterior parietal cortex, centrally and the high left parietal cortex and in the right posterior temporal cortex. Findings would be concerning for cerebritis and abscess. 2. 7.5 mm of [id number] falcine shift. 3. Focal area of abnormal enhancement and edema within the right side of the cerebellum again concerning for cerebritis/abscess in this patient with known history of endocarditis. 4. This patient's examination has significantly worsened when compared to previous dated 09/30/16. Cody Coello MD Head CT 10/16/16 0000 Signed Impressions: Service Date/Time: Sunday, October 16, 2016 04:37 - CONCLUSION: Large area of edema in the right temporal lobe with now some central areas of hemorrhage clearly more impressive than on the , in particular the amount of hemorrhage present. I don't see drainable collection, it is more of an elongated curvilinear area. Small area stroke and edema in the medial left parietal lobe. Improvement in the lower left lateral parietal lesion with much less edema today Loyd Black MD Chest X-Ray 10/15/16 0000 Signed Impressions: Service Date/Time: Saturday, October 15, 2016 13:21 - CONCLUSION: Trach is in good position without pneumothorax. Jair Coello MD FACR PHYSICAL EXAMINATION GENERAL: Sedated. Restless. HEENT: No icterus. Oropharynx: moist mucosa. NECK: No adenopathy. No swelling. Trach site without e/o infection. LUNGS: Bibasilar rhonchi. HEART: 2-3/6 systolic murmur at the left sternal border. Loud S1S2. No rubs or gallops. ABDOMEN: Bowel sounds are present, soft, no tenderness. EXTREMITIES: No clubbing or cyanosis or edema. Embolic purpuric lesions at the plantar aspect of the 4th and 5th toe on the left and the great toe on the right are resolved. Few very tiny petechial lesions at dorsum of feet is faded. SKIN: Resolved rash. Dry peeled skin at tips of digits and soles of feet with new underlying skin. NEURO: Sedated. PSYCH: Unable to assess. IMPRESSION 1. Septic shock due to Staph aureus. Persistent bacteremia. MSSA. Blood culture now negative reflecting clearance. 2. Acute endocarditis. [place] aortic valve. Staph aureus. 3. Acute respiratory failure. 4. Bilateral lung infiltrates, probably secondary to septic emboli. 5. Enterobacter PNA. 66. 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 7. History of IV drug abuse. Unknown current use status. 8. Antibiotic allergies. 9. Recent drug rash. Medicines in weeks before admission: Clindamycin, Doxycycline, acyclovir, Adderral, Tylenol, prednisone, omeprazole, Ibuprofen. 10. FEVER - C. line changed. WBC elevated. Probably infection related. Temp improved. Corynebacterium in urine is not significant. RECOMMENDATIONS: 1. Continue Nafcillin 2 grams Q 4 hours. 2. Continue Levaquin for Pneumonia due to Enterobacter. 3. Valve replacement when feasible. 4. Follow temps. 5. UA C&S. 6. Monitor clinical status. 7. Monitor temp. Discussed with RN. Nemesio Jackson MD Oct 30, 2016 11:35
--- NOTE | 2016-10-30 12:40 | HHI.HCPN ---
Reason for visit a. To assist with evaluation and management of symptoms including:dyspnea, encephalopathy, agitation, constipation b. To assist medical decision maker(s) with: better understanding of current medical conditions; weighing benefits/burdens of medical treatment options; making medical treatment decisions. Subjective/Interval History . remains on mechanical vent, status post recurrent pulmonary edema requiring mechanical ventilation and sedation. Critical care discussed with CVS, neurosurgery regarding proceeding with valve replacement as patient's best chance for recovery/survival. Neurosurgery has cleared, patient with minimal risk of re-hemorrhage, CVS reevaluated plan for possible valve replacement, pending second opinion by additional CVS; second evaluation recommends further evaluation a tertiary center-- critical care with ongoing discussions for valve at another facility. Patient accepted this morning at [facility] in [place], pending transfer in the coming days. Labs are stable. No new imaging today. Remains on diprivan 50mcgs, fentanyl 250mcgs/hr. Levophed @ 7mcgs. Nursing reports moves all 4 extremities, not following commands today per their assessment. Reported worsening sacral wound- wound care consulted, possible VAC placement. Visualized during nursing care -- approx 3-4cm wound to coccyx, red, skin opening, some surrounding erythema. Seen in room no visitors present. Nursing completing patti care. Pt sedated, eyes open, not tracking. moves 4 extremities spontaneously. + coughing at times of mech vent. call to pt mother, provided update on current assessment, tx, acceptance at [facility] for possible valve surgery there.She expresses understanding of overall prognosis and associated risks. She and family wish to proceed with whatever treatments are possible to help pt recover. SHe requests I update pt sister Anay as well. Call to sister Anay, provided update on assessment, tx, and plans for transfer to [facility] for possible valve surgery there. She is appreciative of ongoing updates, requests updates daily if possible as she is now back home in [place]. D/w RN, critical care. . Advance Directives Living Will: Never completed Health Care Surrogate: Never completed Durable Power of Music Grapher: Completed, but not made available (mother reports has POA, not clear if this includes medical decision making (SW has reviewed, this does NOT include healthcare decision making) ) Objective Vital Signs Date Time Temp Pulse Resp B/P Pulse Ox O2 Delivery O2 Flow Rate FiO2 10/30/16 11:33 94 40 10/30/16 08:27 100 Ventilator 40 10/30/16 08:27 100 40 10/30/16 06:00 105 10/30/16 04:00 40 10/30/16 04:00 98.1 105 20 118/56 100 10/30/16 04:00 101 10/30/16 03:31 100 40 10/30/16 02:00 122 10/30/16 01:02 100 40 10/30/16 00:00 122 10/30/16 00:00 40 10/30/16 00:00 98.9 102 20 109/52 100 10/29/16 22:00 96 10/29/16 20:28 100 40 10/29/16 20:00 98.7 91 20 101/54 100 10/29/16 20:00 92 10/29/16 20:00 40 10/29/16 19:00 100 Mechanical Ventilator 40 10/29/16 18:00 120 10/29/16 16:05 100 40 10/29/16 16:00 102 10/29/16 16:00 40 10/29/16 16:00 99.2 96 20 101/57 100 10/29/16 14:00 102 10/29/16 13:00 20 10/29/16 12:47 100 40 Intake & Output 10/30/16 10/30/16 07:00 19:00 Intake Total 2538 ml Output Total 2400 ml Balance 138 ml IV Total 1478 ml Tube Feeding 860 ml Other 200 ml Output Urine Total 2400 ml # Bowel Movements 2 Physical Exam CONSTITUTIONAL/GENERAL: This is an adequately nourished patient, sedated , eyes open at times, on mechanical vent TUBES/LINES/DRAINS: central line.trach, PEG, carrera catheter , SCDs , Restraints x4. SKIN: No jaundice, or lesions. Embolic purpuric lesions on LT great toe. + wound to sacrum= approx 3-4cm wound to coccyx, red, skin opening, some surrounding erythema CARDIOVASCULAR: regular rhythm without murmur. No peripheral edema, periph pulses palpable RESPIRATORY/CHEST: Symmetric, unlabored respirations via tracheostomy to mechanical vent. Course air movement throughout. GASTROINTESTINAL: Abdomen soft,flat, nondistended. No palpable masses. No apparent tenderness to exam. TF infusing. BS normoactive. NEUROLOGICAL: Sedated on mechanical vent. Eyes open, looking around room does not track examiner. Does not follow any commands. Moving all 4 extremities spontaneously, appears to localize to touch does not follow my commands. PSYCHIATRIC: -- limited assess due to condition, sedation, appears restless . . Diagnostic Tests Laboratory Laboratory Tests Test 10/27/16 10/28/16 10/29/16 13:00 06:15 04:50 Sodium Level 143 MEQ/L 140 MEQ/L 141 MEQ/L (136-145) (136-145) (136-145) Potassium Level 3.5 MEQ/L 3.4 MEQ/L 3.5 MEQ/L (3.5-5.1) (3.5-5.1) (3.5-5.1) Chloride Level 106 MEQ/L 105 MEQ/L 105 MEQ/L (98-107) (98-107) (98-107) Carbon Dioxide Level 29.6 MEQ/L 29.5 MEQ/L 29.7 MEQ/L (21.0-32.0) (21.0-32.0) (21.0-32.0) Anion Gap 7 MEQ/L (5-15) 6 MEQ/L (5-15) 6 MEQ/L (5-15) Blood Urea Nitrogen 17 MG/DL (7-18) 18 MG/DL (7-18) 19 MG/DL (7-18) Creatinine 0.78 MG/DL 0.76 MG/DL 0.86 MG/DL (0.60-1.30) (0.60-1.30) (0.60-1.30) Estimat Glomerular Filtration 120 ML/MIN 124 ML/MIN 107 ML/MIN Rate (>89) (>89) (>89) Random Glucose 108 MG/DL 114 MG/DL 108 MG/DL (74-106) (74-106) (74-106) Calcium Level 8.1 MG/DL 8.4 MG/DL 8.2 MG/DL (8.5-10.1) (8.5-10.1) (8.5-10.1) White Blood Count 11.4 TH/MM3 10.9 TH/MM3 (4.0-11.0) (4.0-11.0) Red Blood Count 2.74 MIL/MM3 2.61 MIL/MM3 (4.50-5.90) (4.50-5.90) Hemoglobin 7.9 GM/DL 7.5 GM/DL (13.0-17.0) (13.0-17.0) Hematocrit 24.0 % 22.6 % (39.0-51.0) (39.0-51.0) Mean Corpuscular Volume 87.6 FL 86.6 FL (80.0-100.0) (80.0-100.0) Mean Corpuscular Hemoglobin 28.8 PG 28.8 PG (27.0-34.0) (27.0-34.0) Mean Corpuscular Hemoglobin 32.9 % 33.2 % Concent (32.0-36.0) (32.0-36.0) Red Cell Distribution Width 15.3 % 15.3 % (11.6-17.2) (11.6-17.2) Platelet Count 200 TH/MM3 208 TH/MM3 (150-450) (150-450) Mean Platelet Volume 8.5 FL 8.7 FL (7.0-11.0) (7.0-11.0) Neutrophils (%) (Auto) 76.0 % 76.6 % (16.0-70.0) (16.0-70.0) Lymphocytes (%) (Auto) 15.4 % 14.4 % (9.0-44.0) (9.0-44.0) Monocytes (%) (Auto) 4.1 % (0.0-8.0) 5.0 % (0.0-8.0) Eosinophils (%) (Auto) 3.8 % (0.0-4.0) 3.6 % (0.0-4.0) Basophils (%) (Auto) 0.7 % (0.0-2.0) 0.4 % (0.0-2.0) Neutrophils # (Auto) 8.6 TH/MM3 8.4 TH/MM3 (1.8-7.7) (1.8-7.7) Lymphocytes # (Auto) 1.7 TH/MM3 1.6 TH/MM3 (1.0-4.8) (1.0-4.8) Monocytes # (Auto) 0.5 TH/MM3 0.5 TH/MM3 (0-0.9) (0-0.9) Eosinophils # (Auto) 0.4 TH/MM3 0.4 TH/MM3 (0-0.4) (0-0.4) Basophils # (Auto) 0.1 TH/MM3 0.0 TH/MM3 (0-0.2) (0-0.2) CBC Comment DIFF FINAL DIFF FINAL Differential Comment Result Diagram: 10/29/16 04510/29/16 045 Procedures 09/30left subclavian central line, left radial arterial line 10/12-right subclavian central line 10/15-tracheostomy, bronchoscopy Assessment and Plan Disease Oriented Problem List: (1) Intracranial hemorrhage (2) Sepsis (3) Elevated troponin (4) Subarachnoid hemorrhage (5) Cerebral edema (6) Metabolic encephalopathy (7) Acute respiratory failure with hypoxia (8) Septic shock due to Staphylococcus aureus (9) Rash and nonspecific skin eruption (10) Substance abuse Symptom Scale: (1) Dyspnea 0-10 Scale: Unable to quantify (2) Encephalopathy 0-10 Scale: Unable to quantify (3) Agitation 0-10 Scale: Unable to quantify (4) Constipation 0-10 Scale: Unable to quantify Pertinent Non-Medical Issues Psychosocial:originally from [place], lived in [place] since . HS education. Was incarcerated and then in drug rehabilitation in [facility]. 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 Father (parents ) lived in [place] with support from family there. Supported by local friends, coworkers, apartment landlord. Spiritual:believes in God, no particular affiliation. would want ongoing security specialist support. Legal: Patient is not able to participate in decision-making due to clinical condition. He is not . Per [place] statutes his parents would be legal decision makers, mother is serving as primary supported by his sister and father. She reports she has POA paperwork. Ethical issues impacting care: Important Contacts mother Felicita Roberts [phone] (HCP) sister Elizabeth Rios [phone] [email or web address] father Pradeep Rios [phone] . 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 Severe aortic regurgitation and possible leaflet perforation, CV consult is pending. He additionally developed small area of brain hemorrhage. He remains critically ill. Possible he can recover with prolonged resuscitation , prolonged ICU course. Remains very high risk for further complications and setbacks though possible he can survive this initial injury/illness. Code Status: Full Code Plan * Legal decision maker: Patient is not able to participate in decision-making due to clinical condition. He is not . Per [place] statutes his parents would be legal decision makers, mother is serving as primary supported by his sister and father. She reports she has POA paperwork. (palliative SW reviewed and indicates that it does not include medical decision-making) [ patient sister Anay providing support to patient mother and assists her with decision making.] * Goals: Ongoing meetings with patient family, daily or as needed. Patient sister appears to have a reasonable understanding of conditions, prognosis. Patient mother appears to have a very simple understanding of conditions and prognosis. Father also seems to have a very simple understanding of conditions and prognosis. Goals remain aggressive, Patient's mother is hoping for a miracle and wants to continue whatever measures available to help patient recover. They are open to ongoing to conversations as clinical course evolves. Sister Anay continues to support mother and father with updates and decision making, mother makes brief visits but too upsetting for her to stay for long periods. pt planned for transfer to tertiary facility for valve replacement in the coming days, family in agreement with this. * CODE STATUS: full SYMPTOMS: * Dyspnea- intubated for AMS. Status post tracheostomy. CXR w/ slight pulmonary edema , CXR unchanged= Mild to moderate bilateral infiltrates. + Enterobacter bronchial washing,on levaquin. Previously having T piece trials during the day, resumed on mechanical vent due to agitation, pulmonary edema. Currently on mechanical vent to trach;+ sedation * Agitation- hx substance abuse; hx ADD, on adderall.+embolic CVA,+hemorrhage. Has required significant sedatives during hospital course. Some improvement during course tolerating weaning previously following commands and more arousable however sedation has been resumed due to cardiac/pulmonary concerns. Currently on Diprivan 45 mics, fentanyl 250 mics; appears restless this morning , nursing giving PRN ativan * Encephalopathy- multifactorial-- +sepsis, embolic CVA, + hemorrhage, hx substance abuse, EEG neg seizure ; repeat CT brain 10/16, MRI 10/17. Repeat MRI stable, slight improvement. Mental status had been improved, still on sedation however reported to be following commands even on sedation (he did not follow for my exam--however is moving all 4 extremities spontaneously, eyes open.) * Constipation -resolved. +frequent loose BMs last week, after several doses of laxatives, improving, less bowel movements. +colace scheduled. other bowel pharmaceuticals are prn. Palliative care will continue to follow during hospital course as condition evolves, to assist patient/decision-maker with understanding of medical conditions, weighing benefits/burdens of treatment options, for clarification of goals of treatment. Additionally will assist with any symptoms of palliative concern. . Attestation To help prompt me to consider important information that might be impacting today's encounter and assessment, information from prior notes written by myself or my colleagues may have been "brought forward" into today's note. My signature on this note, however, is an attestation that I personally performed the exam, history, and/or decision-making noted today, and, unless otherwise indicated, the interactions with patient, family, and staff as well as the review of records all occurred today. I also attest that the listed assessment and stated plan reflect my best clinical judgment today based on the combination of historical information, prior notes, and today's exam/ interactions. When time spent is documented, it refers only to time spent today by the signer, or if indicated, combined time spent today by collaborating physician/nurse practitioner. Sandy Liu Oct 30, 2016 12:40
[2016-10-30 13:39] LABS: BACTERIA, URINE OCC /hpf; BLOOD, URINE MOD (NEG); GLUCOSE,URINE NEG (NEG); KETONE, URINE NEG (NEG); MUCUS URINE FEW /lpf (OCC); NITRITE,URINE NEG (NEG); PH, URINE 5.5 (5.0-8.5); SQUAMOUS EPITHELIAL CELL URINE 1 /hpf (0-5); URINE COLOR YELLOW (YELLW/STRAW)
[2016-10-30 13:40] LABS: COMMENT (UR) CATH-CULTURE IND; CULTURE IF INDICATED CATH CULTURE IND
[2016-10-30] MEDS: FLUCONAZOLE 100 MG TAB PO SCH (13:49)
[2016-10-30] MEDS: NYSTATIN SUSP 500,000 U/5 ML CUP SWISH-SWAL SCH ×3 (13:49→20:44)
[2016-10-30] MEDS: METOPROLOL TARTRATE 5 MG/5 ML VIAL IV PUSH PRN (14:49)
[2016-10-30] MEDS ORDERED: LORazepam 2 MG/ML VIAL IV PRN (15:00)
--- NOTE | 2016-10-30 15:27 | PD.WCN.NOT ---
Wound Consult Description: Sacrum pressure injury per Dr Gibbons 10/28/16. Communicated with: DEA Miranda Recommendation: Cleanse sacral Deep Tissue Injury opening to partial thickness skinloss every other day with NS and gauze. Apply Maxorb Extra AG into sacral wound bed, spray periwound and Deep Tissue Injuries with Cavilon skin barrier film PRN, cover sacrum wound with dry cover. Additional Information: Patient was seen with DEA Miranda on [address] at bedside during assessment. Patient was positioned to his right side. Adhesive foam dressing was removed from sacrum to reveal a Deep Tissue Injury opening to partial thickness skinloss measuring 2.3cm x 1cm x 0.8cm. Wound bed was cleansed with NS and gauze. Wound bed presents with dark red and purple friable tissue within the shallow wound bed with minimal sero-sang drainage and mild odor. Proximal periwound is noted with a deep maroon non blanchable area (DTI) measuring ~2cm x 1cm that was skin prepped using Cavilon spray. Right ischium is noted with a boggy Deep Tissue Injury with non blanching deep purple discoloration measuring ~3cm x ~2cm that was cleansed and prepped with Cavilon skin prep to help dry out the pressure injury and keep it from opening. Robina Taylor [facility] Oct 30, 2016 15:27
[2016-10-30] MEDS: NYSTATIN 100,000 U/GM PWD 15 GM BTL TOPICAL SCH ×2 (17:30→21:15)
[2016-10-31] VITALS (14 sets, daily range): BP systolic 95–101; BP diastolic 44–47; PULSE 108–151; RESP 18–20; TEMP 98–99.6; O2SAT 92–100
[2016-10-31] MEDS: PROPOFOL 1000 MG/100 ML INJ 100 ML IV SCH ×2 (00:21→04:15)
[2016-10-31] MEDS: NAFCILLIN INJ 2,000 MG in SODIUM CHLORIDE 0.9% INJ 100 ML IV SCH ×5 (00:21→16:00)
[2016-10-31] MEDS: ACETAMINOPHEN 325 MG TAB PO PRN (00:22)
[2016-10-31] MEDS: METHADONE HCL 10 MG/10 ML ORAL SOLUTION PEG SCH ×4 (00:22→18:19)
[2016-10-31] MEDS: ALBUMIN HUMAN 25% 25 GM/100 ML BAGP IV SCH ×2 (00:23→12:30)
[2016-10-31] MEDS: RESP: ALBUTEROL 2.5 MG/IPRATROPIUM 0.5 MG NEB (SCH) NEB ×5 (00:49→15:12)
[2016-10-31] MEDS: CHLORHEXIDINE GLUCONATE 2 % 1 PACK (2 CLOTHS) TOP SCH (04:00)
[2016-10-31] MEDS: fentaNYL DRIP 250 ML IV SCH (04:15)
[2016-10-31 04:36] LABS: AUTOMATED NEUTROPHIL # 7.1 TH/MM3 (1.8-7.7); BASOPHIL % 0.4 % (0.0-2.0); EOSINOPHIL # 0.2 TH/MM3 (0-0.4); EOSINOPHIL % 2.7 % (0.0-4.0); LYMPH % 13.1 % (9.0-44.0); LYMPHOCYTE # 1.2 TH/MM3 (1.0-4.8); MEAN CELL VOLUME 86.5 FL (80.0-100.0); MEAN CORPUSCULAR HEMOGLOBIN 29.5 PG (27.0-34.0); MEAN CORPUSCULAR HGB CONC 34.1 % (32.0-36.0); MONO % 4.7 % (0.0-8.0); NEUT % 79.1 % (16.0-70.0); PLATELET COUNT 174 TH/MM3 (150-450); RED BLOOD COUNT 2.16 MIL/MM3 (4.50-5.90); RED CELL DISTRIBUTION WIDTH 15.2 % (11.6-17.2)
[2016-10-31 04:37] LABS: HEMO FLAGS DIFF FINAL
[2016-10-31 04:40] LABS: HEMATOCRIT 18.7 % (39.0-51.0)
[2016-10-31 05:00] LABS: ANION GAP 7 MEQ/L (5-15); AST (GOT) 20 U/L (15-37); BICARBONATE 29.6 MEQ/L (21.0-32.0); BLOOD UREA NITROGEN 32 MG/DL (7-18); CHLORIDE 101 MEQ/L (98-107); GLOMERULAR FILTRATION RATE 77 ML/MIN (>89); MAGNESIUM 2.1 MG/DL (1.5-2.5); POTASSIUM 3.7 MEQ/L (3.5-5.1); SODIUM (NA) 138 MEQ/L (136-145)
[2016-10-31 05:04] LABS: ALKALINE PHOSPHATASE 60 U/L (45-117); ALT (GPT) 12 U/L (12-78); TOTAL BILIRUBIN ADULT 0.6 MG/DL (0.2-1.0)
--- NOTE | 2016-10-31 05:40 | RADRPT ---
EXAM DATE/TIME: 10/31/2016 04:04 [facility] COMPARISON: CHEST SINGLE AP, October 29, 2016, 3:03. INDICATIONS : Shortness of breath. MEDICAL HISTORY : None. SURGICAL HISTORY : Tracheostomy. ENCOUNTER: Subsequent ACUITY: 1 month PAIN SCORE: Non-responsive. LOCATION: Bilateral chest FINDINGS: Bilateral airspace opacities are present, primarily perihilar. These are probably slightly worse than yesterday accounting for differences in technique. No large effusion seen. No pneumothorax. Tracheostomy again noted. There is a left subclavian central venous catheter with tip in the superior vena cava unchanged. CONCLUSION: No significant change. Bilateral perihilar predominant air space opacities persist. Michael Freitas MD on October 31, 2016 at 5:37 Board Certified Radiologist. This report was verified electronically.
--- NOTE | 2016-10-31 07:56 | HHI.CCPN ---
Subjective Remarks/Hospital Course Hospital Course: This is a 26yM who presents to the ED for altered mental status. On arrival, the patient was obtunded and emergently intubated. His roommate is with him and cannot provide much medical history. The remainder of the history is per EMS and ER documentation and my discussion with the ER physician. Per EMS and ED reports, patient was seen approximately 10 days prior to admission by an unknown physician in the clinic and given antibiotic for fever. After taking the antibiotic, the patient had a new red rash on his hands and healing on his feet. He he was seen in the emergency department 2 days prior to admission for low-grade fever and congestion, generalized weakness, lightheadedness. At that time she was given prescription for prednisone 40 mg daily for 5 days. The patient's landlord apparently found the patient today with altered mental status and called EMS. When EMS arrived, his GCS was 10. There is reports that the patient has a history of substance abuse and was recently in rehabilitation. I did talk to the roommate who confirms that the patient had recently gotten out of rehabilitation and was living with him. The remainder does say that he does not think the patient has been taking any illicit substances recently. In the emergency department, the patient was hypotensive, tachycardic. His head CT is significant for significant areas of infarction in the right frontal , temporal, and cerebellar regions as well as a small area of subarachnoid hemorrhage in the superior right parietal region. Patient has early 3 mm of midline shift as well as effacement on the right. Patient's laboratory data is significant for white blood cell count of 19,000, hemoglobin of 9.9, lactate of 3.7, creatinine 1.69, CK 372, troponin of 11.9. His urine drug screen is positive for opiates and amphetamines. I performed a bedside critical care ultrasound which demonstrated hyperdynamic left ventricular function and what appears to be aortic valve vegetations and I measured to be proximally 0.9 x 8.8 cm. This is associated with what appears to be severe aortic regurgitation. There is no pericardial effusion. Right ventricular function is preserved. A formal echo has been ordered to confirm these findings. Critical care medicine has been consulted to evaluate and manage his shock, altered mental status, multiple areas of infarction, and subarachnoid hemorrhage. Subjective: 10/01: seen and examined around 06:30am. patient on norepinephrine at 6 mcg/min , persistently in shock. patient localizes to pain x [address] extremities. repeat interval head CT with 4mm midline shift. echo with significant aortic valve vegetations and moderate aortic insufficiency. 10/02: now following commands intermittently on the RUE, still localizing in LUE , BLE. off vasopressors this morning. cultures growing staph, sensitivities to follow. 10/03: tachycardic overnight. off vasopressors this morning. not following commands this morning. still persistently febrile and wbc uptrended to 20k. 10/04: still encephalopathic. EEG negative for seizure activity. received 1 trial dose of oxacillin yesterday without evidence of allergic reaction. will let ID guide this therapy, but safe from a critical care standpoint to pursue oxacillin therapy. cultures persistently positive and wbc uptrending. still febrile. 10/05: persistent encephalopathy. but now briskly purposeful x 4. now on oxacillin. discussed with ID, and will plan to start gent induction. wbc downtrending today. still febrile. will continue surveilance cultures q48h until 2 sets negative. 10/06: neuro exam unchanged. still purposeful. blood cultures negative x 24h. will re-draw today. still persists on 1mcg/min levophed, though this has also slightly improved from yesterday. 10/07: neuro exam stable. very agitated, not following commands. blood cultures negative x 48h. off levophed. 10/08: neuro exam stable. CT with increased midline shift and persistent edema, particularly right side. back on levophed. febrile. wbc stable. 10/09: sodium not at goal, likely due to normal renal function. follows commands in the RUE, which is new. spontaneously moves BLE, LUE. wbc downtrending. hgb 7 this AM, but no other signs of end-organ damage from low o2 delivery. 10/10 failed to SBT today due to rapid shallow breathing also tachycardia. Patient found to have a significant anemia below 7 will transfuse and reattempt SBT later today 10/11: Flash pulmonary edema today requiring sedation protocol and vent manipulations. Hypoxemia to 70s. 10/12: Some improvement in gas exchange after heavy sedation and relaxant. 10/13: Tmax 100.3, requiring high dose sedation. 10/14: Leukocytosis resolving. Still way ahead on free water - increase diuretics. Prealbumin 17, adjust TFs accordingly. 10/15: deeply sedated s/p severe agitation from prior causing pulmonary edema and hypoxia. talked with family at length, not clinically improving on pathway, will require tracheostomy and PEG tube for further improvements. also still significantly + on volume. still on vasopressors, but does not clinically appear to be in significant shock. 10/16: CT scan today with new hemorrhage into right temporal stroke area with 9mm midline shift. neurosurgery aware. no significant improvements in neurologic exam. repeat echo pending. 10/17: Neuro exam remains unchanged. Per Dr. Michelle CT from 10/16/16 showed small amount of new hemorrhage circumferentially along the area of the previous right temporal infarct. There is increased right temporal edema and mass effect but relatively focal primarily along the ventricle, and there is not significant compression along the brainstem or cisterns. Continued medical management, increased Na 145-150. Neuro exam remains unchanged Tmax 100.3, white count increased to 14.3. Enterobacter in BAL 10/15, start Levofloxacin 10/18 MRI shows multiple brain abscesses bilaterally. Large R sided stroke with midline shift 7.[address] Michelle will review images. ID feels oxacillin sufficient. Clinically neuro slightly improved. Spontaneous eye opening moves right upper and lower extremities spontaneously. (Mother states he squeezes hand to command) 10/19: Neuro exam slowly improving, squeezes with both hands. WBC count improved. Intermittently requiring Levophed. Remains tachycardic. Start scheduled metoprolol, start scheduled methadone to reduce fentanyl requirement 10/20 stable overnight, continue methadone and attempt to reduce fentanyl 10/21 will adjust methadone dose recommendation for detoxification off opiate addiction 10/22: Received Ativan overnight for agitation, now sedated moving all extremities spontaneously. Sodium 153. Urine output is adequate. Chest x-ray shows mild pulmonary edema 10/23: Getting 2 units PRBC for Hb 6.9. Intermittently agitated, with tachycardia. Fever up to 103 today. We'll discuss with ID. We'll change central line. For agitation will attempt to use Precedex again. I discussed with Dr. Cartagena who was the boxing trainer while patient had agitation and pulmonary edema while on Precedex. It is clear to me and Dr. Cartagena that it was not an adverse reaction but agitation related to rapid tapering of his sedation and using Precedex alone at that time 10/24: Placed back on ventilator today for hypoxemic respiratory failure, chest x -ray showing florid pulmonary edema. I was emergently called to the room today hypoxemic tachypneic breathing and 50s. Large amount of copious frothy blood- tinged secretions from the trach most likely secondary to severe pulmonary edema. Neuromuscular paralysis given for ventilator synchrony. Required aggressive suctioning and bag and mask ventilation for long time before stabilization. Planning for bronchoscopy to rule out any injury to bronchial tree or trach site bleeding. Pulmonary edema is secondary to severe AI 10/25: Remains critically ill but stable ventilatory support. Heavily sedated for ventilator synchrony. Chest x-ray shows pulmonary edema with interval improvement. MRI of the brain shows stable to slightly improved lesions and stroke no new hemorrhages 10/26: Remains intubated sedated. Discuss with cardiothoracic surgery yesterday. He is willing to perform aortic valve replacement this Saturday if cleared by neurosurgery Dr. Michelle. Dr. Michelle has documented that patient could proceed with cardiovascular surgery as indicated, and in his opinion relatively low risk of perioperative intracranial hemorrhage with surgery and anticoagulation. Family is being updated on regular basis 10/27 Tachypnea, tachycardia today, improved with ativan prn. Plan for CT brain/ chest today per previous order. Subjective: 10/28 Still on sedation with propofol/fentanyl for vent synchrony as nurses have noted intermittent agitation, tachypnea. When sedation held he intermittently appears to follow command with hand squeeze on the right upper extremity. Eyes open but does not make eye contact, + facial grimace, L facial droop, withdraw weakly on the left upper. Moves BLE spontaneously, right more than left. Noted Dr. Velazquez to seek input from [facility], surgery on hold for now. 10/29: Remains intubated sedate, on weaning doses of Levo. Follows commands by squeezing hands on sedation hold. Input from [facility] pending at this time 10/30: Remains on vent, on 7 mcg/min of Levo, MAP 80-85, weaned to 5 mcg/min. Instructed to RN to wean Levo to keep MAP >60. I have spoken to the office of Dr. Alan Edmondson, CT surgeon at [facility]. Waiting to hear back from him. Second opinion from pending 10/31: Accepted for nonemergent transfer to [facility], by Dr. Alan Edmondson MD. CTS. patient developed acute hypoxia requiring FiO2 up to 100 % today a.m. chest x-ray shows severe bilateral pulmonary edema. Patient's acute pulmonary edema/heart failure secondary to severe AI. I will increase PEEP to 12 TV to 550 and start Bumex infusion for severe pulmonary edema. Rocuronium 50 mg IV x1 Objective Vital Signs Date Time Temp Pulse Resp B/P Pulse Ox O2 Delivery O2 Flow Rate FiO2 10/31/16 07:40 94 80 10/31/16 06:00 151 10/31/16 04:00 98.9 20 97/47 10/30/16 20:00 Mechanical Ventilator Intake and Output 10/30/16 10/30/16 10/31/16 08:00 16:00 00:00 Intake Total 974 ml 832 ml 1323 ml Output Total 1600 ml 1700 ml 1000 ml Balance -626 ml -868 ml 323 ml Result Diagram: 10/31/16 0425 10/31/16 0425 Imaging Last Impressions Head CT 09/30/161452 Signed Impressions: Service Date/Time: Friday, September 30, 2016 16:31 - CONCLUSION: Noncontrast CT findings of concern for multiple intra-axial masses. There is small acute subarachnoid blood present and about 3 mm of leftward midline shift. MRI of the brain with and without contrast recommended. Michael Freitas MD Chest X-Ray 09/30/16 6925 Signed Impressions: Service Date/Time: Friday, September 30, 2016 15:23 - CONCLUSION: No acute cardiopulmonary disease demonstrated. Appropriate endotracheal tube tip position. Nasogastric tube courses into the stomach, tip not included on the study. Michael Frietas MD Objective Remarks Drips: Norepinephrine now on hold Propofol 50 micrograms per KG per minute Fentanyl 250 g per hour GENERAL: Young male, lying in bed, critically ill, sedated on the vent via trach. HEENT: Pupils equal, sluggishly reactive. Mucous membranes moist. NECK: No JVD. Trachea midline. Trach with some old dried blood. CHEST: Bilateral course crackles, increased from yesterday. Bilateral rhonchi CARDIOVASCULAR: S1-S2 normal. + JVD. Early Diastolic murmur Grade 3 best heard LSB ABDOMEN: Soft, nontender, nondistended. No guarding. MUSCULOSKELETAL: No peripheral edema. Distal pulses 2+. NEUROLOGICAL: Heavily sedated due to hypoxia and limits neuro exam. Moving all extremities spontaneously pupils are equal reactive. (Previously When sedation held he intermittently follows command with hand squeeze on right upper extremity). L facial droop. 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 Has hemorrhagic conversion and midline shift. MRI 10/18 multiple brain abscesses, MRI 10/25 showing interval improvement with some resolution of bleed and improved midline shift and edema. Continue with supportive care. Remains critically ill at this time, took a turn for the worse with severe pulmonary edema and acute hypoxemic respiratory failure back on full mechanical ventilation, now today with worsening pulmonary edema Plan by systems: Neurologic: Multiple acute septic CVAs, brain abscesses Cerebral edema, Midline shift Small subarachnoid hemorrhage Right temporal hemorrhagic conversion Metabolic encephalopathy Agitated Delirium --Per Neurosurgeon Dr. Michelle's note on 10/25/16: "MRI of the brain 10/25/16 images reveal mild improvement in the edema and mass effect related to the right temporal lesion. There appears to be less hemorrhage surrounding the right temporal lesion. The patient could proceed with cardiovascular surgery as indicated. Review of the literature reveals what appears to be a relatively low risk of perioperative intracranial hemorrhage with surgery and anticoagulation" --MRI 10/18 shows multiple brain abscesses bilaterally. Large R sided stroke with midline shift 7.[address] Michelle recommends continued medical management --MRI 10/25/16 stable to slightly improved, abscesses. Improving cerebral edema , also improvement in the hemorrhagic conversion temporal region on the right --CT head 10/22: Slight improvement in right temporal hemorrhage with persistent vasogenic edema. Midline shift appears improved on my review --Propofol and fentanyl for sedation and vent synchrony, Keep RASS -2. Intermittent neuromuscular paralysis for ventilator synchrony --Ativan prn, resumed methadone 10/27 due to agitation/pain. Haldol on hold. s/ p failed trial of Seroquel --Keppra for seizure prophylaxis, patient with multiple brain abscesses --Family and friends insist patient had been clean without drug use for the last 3 years -had been under close monitoring with drug screens for 3 years --UDS on admission positive for opiates and amphetamines due to prescribed Acetaminophen with codeine and Adderall Respiratory: Acute hypoxic and hypercarbic respiratory failure Severe pulmonary edema ACV TV 550 PEEP 14 Fio2 80%. No SBT until hypoxia improves --Stat Bumex infusion after 2 mg IV push --Vent bundle, head of bed 30 --Bronchoscopy 10/24/16 was essentially normal except for some pink frothy secretions suggestive of pulmonary edema --s/p trach 10/[address] Dominguez/Osiel (High trach performed to permit probable CT surgery for AVR) Cardiovascular: Acute severe flash pulmonary edema Aortic valve endocarditis Severe aortic insufficiency, with probable AV perforation Hypotension Severe flash pulmonary edema from severe AI, back on vent 10/24, today 10/31/16 with worsening pulmonary edema --His pulmonary edema is related to his severe aortic insufficiency --Give Bumex 2 mg 1 now stat and 0.5 mg per hour infusion --Dr. Michelle neurosurgeon has documented low risk for intracranial hemorrhage from AVR after reviewing recent imaging --Considered high risk for valve replacement here at [place]. Dr. Alan Edmondson' s [facility] patient on 10/31/16 for transfer --Levophed to keep MAP >60, SBP >90, currently on hold 2d echo 10/01: aortic valve vegetations, moderate AI. Echo 10/17 Sev AI, probable AV perforation --CTS Dr. Velazquez and Dr. Fournier feel patient is high risk Renal: Acute kidney injury- resolved. Jerez for accurate I's and O's --Strict I/Os --Bumex gtt as above with KCL replacement FEN/GI: Acute protein calorie malnutritionmild Elevated LFTs Intravascular Volume Overload Nepro 35/hr. --Dulcolax PRN Daily BMP Heme/ID: Infective endocarditis with embolic complications and severe aortic insufficiency Hypotension Anemia, likely secondary to hemolysis from valvulopathy New fever 10/01 blood cultures: MSSA --10/01 sputum culture: MSSA --10/02 blood cultures: MSSA --10/03 blood cultures: MSSA --10/04 bl cx: MSSA --10/05 bl cx: NGTD --10/06 bl cx: NGTD --10/15 Enterobacter in BAL --10/16 blood culture coag negative staph probable contamination --10/21 sputum Enterobacter --10/21 blood no growth --10/21 urine corynebacterium --10/24 sputum no growth --See cardiac assessment and plan --changed central line 10/23 --Currently on nafcillin started by ID 10/18/16 for MSSA endocarditis, - Levofloxacin to cover Enterobacter 10/17. Was on Cefepime 10/23-10/25. vancomycin, Flagyl d/cd 10/02. --oxacillin started 10/02-DCd 10/18 --gentamicin induction therapy per ID. started 10/05, d/c'd Infectious disease following: Dontfraid, --Give single dose of vanc 10/23 --received 2U PRBC 10/23, 1U PRBC 10/24 --2U PRBC today 10/31. GI consulted to evaluate GI blood loss. EGD for PEG on 10/17 was unremarkable Endocrine: Hyperglycemia of critical illness -- SSI, every 6 hours, medium scale TSH 0.16, free T4 1.07, T3 < 0.5: likely sick euthyroid. Prophylaxis: --GI Prophylaxis Protonix IV DVT Prophylaxis -- SCDs Holding pharmacologic DVT prophylaxis in the setting of cerebral hemorrhage, multiple brain abscesses,anemia Lines: --New L subclavian placed 10/23 --Jerez --Inactive: Right SCV CVL placed 10/12-10/23 ; 09/30 left SC TLC 09/30 was discontinued Critical Care: 82 MIN including multiple vent changes and medications to maintain oxygenation It is my opinion that patient will without a valve replacement due to severe aortic regurgitation and probable perforation of the valve. He had had several episodes of flash pulmonary edema due to severe AI. Dr. Velazquez and Dr. Fournier indicate high operative risk but reportedly plan to confer with colleagues at [facility]. Accepted by Dr. Alan Edmondson ([facility]) for transfer, pending bed availability Mary Rodriguez MD Oct 31, 2016 07:56
[2016-10-31] MEDS ORDERED: BUMETANIDE INJ 1 MG/4 ML VIAL IV PUSH ONE (08:00)
[2016-10-31] MEDS: DOCUSATE SODIUM 100 MG/10 ML UDC G-TUBE SCH (08:00)
[2016-10-31] MEDS ORDERED: ROCURONIUM INJ 50 MG/5 ML VIAL IV ONE (08:00)
[2016-10-31] MEDS: CHLORHEXIDINE 0.12% (ORAL KIT) 15 ML CUP MT SCH (08:00)
[2016-10-31] MEDS: LEVOFLOXACIN 750 MG PREMIX INJ 150 ML IV SCH (08:44)
[2016-10-31] MEDS: BENEPROTEIN POWDER 1 PACK G-TUBE SCH ×3 (08:45→18:00)
[2016-10-31] MEDS: FLUCONAZOLE 100 MG TAB PO SCH (08:45)
[2016-10-31] MEDS: levETIRAcetam 500 MG/5 ML UDC NG SCH (08:45)
[2016-10-31] MEDS: PANTOPRAZOLE SODIUM 40 MG VIAL IV SCH (08:45)
[2016-10-31] MEDS: NYSTATIN SUSP 500,000 U/5 ML CUP SWISH-SWAL SCH ×3 (08:45→18:19)
[2016-10-31] MEDS: ARTIFICIAL TEARS OPTH SOLN 15 ML BTL EACH EYE SCH ×3 (08:45→18:00)
[2016-10-31] MEDS: SODIUM CHLORIDE 0.9% FLUSH 10 ML FLUSH IV FLUSH SCH (08:45)
[2016-10-31] MEDS: NYSTATIN 100,000 U/GM PWD 15 GM BTL TOPICAL SCH (08:46)
[2016-10-31] MEDS: POTASSIUM CHLORIDE 25 MEQ EFFERVESCENT TAB NG SCH (08:46)
[2016-10-31] MEDS: METOPROLOL TARTRATE 5 MG/5 ML VIAL IV PUSH PRN (08:47)
--- NOTE | 2016-10-31 08:59 | HHI.GIFU ---
Subjective Remarks Reconsult for anemia with drop in Hgb. Pt sedated on the ventilator. Nurse reports that his O2 sat's dropped to 84% and he became tachycardic with a HR in the 150's and tachypneic. His FIO2 was increased to 70% and his O2 saturations and hr/rr improved. He is having a large amount of pink frothy secretions from his tracheostomy. He has not had any obvious active bleeding. He had a large bowel movement this am and the nurse was not told about any blood in this, although she reports this was prior to her shift and she did not witness this. Objective Vitals I&O Vital Signs Date Time Temp Pulse Resp B/P Pulse Ox O2 Delivery O2 Flow Rate FiO2 10/31/16 07:40 94 80 10/31/16 06:49 92 80 10/31/16 06:00 151 10/31/16 04:00 98.9 108 20 97/47 100 10/31/16 04:00 108 10/31/16 04:00 40 10/31/16 03:46 100 40 10/31/16 02:00 109 10/31/16 00:50 94 50 10/31/16 00:00 120 10/31/16 00:00 40 10/31/16 00:00 99.6 120 20 101/44 97 10/30/16 22:00 130 10/30/16 21:30 97 40 10/30/16 20:00 40 10/30/16 20:00 114 10/30/16 20:00 100 Mechanical Ventilator 40 10/30/16 20:00 99.3 114 20 100/49 100 10/30/16 18:00 40 10/30/16 18:00 40 10/30/16 16:00 98.7 115 20 97/46 100 10/30/16 15:00 40 10/30/16 12:00 98.1 114 16 115/53 100 10/30/16 11:33 94 40 10/30/16 11:30 40 I/O 10/30/16 10/30/16 10/30/16 10/31/16 10/31/16 10/31/16 07:00 15:00 23:00 07:00 15:00 23:00 Intake Total 974 ml 832 ml 1323 ml 793 ml Output Total 1600 ml 1700 ml 1000 ml 500 ml Balance -626 ml -868 ml 323 ml 293 ml IV Total 612 ml 527 ml 914 ml 391 ml Tube Feeding 262 ml 305 ml 209 ml 202 ml Other 100 ml 200 ml 200 ml Output Urine Total 1600 ml 1700 ml 1000 ml 500 ml # Bowel Movements 1 2 1 1 Laboratory Laboratory Tests Test 10/30/16 10/31/16 13:00 04:25 Urine Color YELLOW Urine Turbidity HAZY Urine pH 5.5 Urine Specific Sigurd 1.014 Urine Protein 30 Urine Glucose (UA) NEG Urine Ketones NEG Urine Occult Blood MOD Urine Nitrite NEG Urine Bilirubin NEG Urine Urobilinogen LESS THAN 2.0 Urine Leukocyte Esterase MOD Urine RBC 34 Urine WBC 14 Urine Squamous Epithelial 1 Cells Urine Bacteria OCC Urine Mucus FEW Urine Yeast (Budding) OCC Microscopic Urinalysis Comment CATH-CULTURE IND White Blood Count 9.0 Red Blood Count 2.16 Hemoglobin 6.4 Hematocrit 18.7 Mean Corpuscular Volume 86.5 Mean Corpuscular Hemoglobin 29.5 Mean Corpuscular Hemoglobin 34.1 Concent Red Cell Distribution Width 15.2 Platelet Count 174 Mean Platelet Volume 8.3 Neutrophils (%) (Auto) 79.1 Lymphocytes (%) (Auto) 13.1 Monocytes (%) (Auto) 4.7 Eosinophils (%) (Auto) 2.7 Basophils (%) (Auto) 0.4 Neutrophils # (Auto) 7.1 Lymphocytes # (Auto) 1.2 Monocytes # (Auto) 0.4 Eosinophils # (Auto) 0.2 Basophils # (Auto) 0.0 CBC Comment DIFF FINAL Differential Comment Sodium Level 138 Potassium Level 3.7 Chloride Level 101 Carbon Dioxide Level 29.6 Anion Gap 7 Blood Urea Nitrogen 32 Creatinine 1.15 Estimat Glomerular Filtration 77 Rate Random Glucose 101 Calcium Level 8.5 Magnesium Level 2.1 Total Bilirubin 0.6 Aspartate Amino Transf 20 (AST/SGOT) Alanine Aminotransferase 12 (ALT/SGPT) Alkaline Phosphatase 60 Total Protein 6.9 Albumin 3.1 Date/Time Procedure Status Source Growth 10/30/16 13:00 Urine Culture Received Urine Catheterized Urine Pending Imaging Last Impressions Chest X-Ray 10/31/16 0600 Signed Impressions: Service Date/Time: Saturday, October 31, 2016 04:04 - CONCLUSION: No significant change. Bilateral perihilar predominant air space opacities persist. Michael Freitas MD Chest CT 10/27/16599 Signed Impressions: Service Date/Time: Thursday, October 27, 2016 18:29 - CONCLUSION: 1. Small to moderate-sized simple appearing bilateral pleural effusions. 2. Dense bilateral lower lobe airspace consolidations are more extensive than expected for atelectasis. Differential considerations include aspiration and infection. 3. Diffuse bilateral groundglass opacities are consistent with diffuse infection versus ARDS. 4. Multiple bilateral non-cavitary somewhat ill-defined pulmonary nodules consistent with septic emboli in this patient with history of endocarditis. 5. Small pericardial effusion. Jose A Munoz MD Head CT 10/27/16 0000 Signed Impressions: Service Date/Time: Thursday, October 27, 2016 18:25 - CONCLUSION: Overall mild improvement in large region of right temporoparietal hemorrhage and surrounding vasogenic edema extending to the right basal ganglia, watershed distribution left parietooccipital infarct/edema and high left parietal cortex hemorrhage. Jose A Munoz MD Brain MRI 10/25/16599 Signed Impressions: Service Date/Time: October 08:23 - CONCLUSION: 1. Continued large areas of abnormal contrast enhancement with surrounding edema involving the right temporal parietal cortex, the watershed distribution posteriorly on the left and patchy areas within the high cortices as well as the right cerebellar hemisphere. These have minimally decreased in size compared to previous. The overall amount of fluid associated with the lesions has decreased as well. Findings would suggest mild interval improvement compared to previous. There is decreasing right to left falcine shift. The amount of hemorrhage associated with these areas is stable. No new areas of hemorrhage are seen. Cody Coello MD Renal Ultrasound 09/30/16 0000 Signed Impressions: Service Date/Time: Friday, September 30, 2016 18:45 - CONCLUSION: Ultrasound appearance of the kidneys within normal limits. Jerez catheter in the urinary bladder. Nonspecific splenomegaly incidentally noted. Michael Freitas MD Head Magnetic Resonance Angiography 09/30/16 0000 Signed Impressions: Service Date/Time: Friday, September 30, 2016 17:42 - CONCLUSION: No occlusion, aneurysm or other acute intracranial vascular abnormality demonstrated. Michael Freitas MD Physical Exam HEENT: Normocephalic. CHEST: Resp even/shallow, mildly labored, RR 30. OETT with FIO2 70%. Tracheostomy with frothy pink secretions CARDIAC: ST with HR in 130's. On vasopressors ABDOMEN: Soft, mildly distended,no hepatosplenomegaly; bowel sounds are present in all four quadrants. PEG with TF going. Stopped and flushed PEG and aspirated clear gastric secretions/tf in return with no obvious blood EXTREMITIES: Generalized edema. 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 Pt has been anemic, H/H dropped from 7.5/22.6 to 6.4/18.7. GI has been reconsulted for further evaluation and treatment. Of note, patient was evaluated with EGD with PEG tube placement (10/17/16)-----> The upper, middle, and distal third of the esophagus were carefully inspected and no abnormalities were noted. The z-line was well seen at the GEJ. The endoscope was pushed into the fundus which was normal including a retroflexed view. The antrum, first and second part of the duodenum were unremarkable, PEG placed successfully. I flushed and aspirated his PEG tube and had clear/tf gastric secretions in return without blood. The nurse reports that she was told that he had a large loose stool this morning and there was no mention of black or bloody stool. He does have frothy pink/bloody secretions from his tracheostomy. This morning, his O2 sat's dropped to 84% and he became tachycardic with a HR in the 150's and tachypneic. His FIO2 was increased to 70% and his O2 saturations and hr/rr improved. At this time, he is not stable for any endoscopic evaluation, but it is reassuring that his recent EGD (above) was normal and that there was no evidence of bleeding when I aspirated the contents from his stomach. He is on Protonix. At this point, we will monitor his H/H closely and observe for any active bleeding. We would try to avoid endoscopic procedures until patient is more stable, unless there is obvious active GI bleeding. - Dysphagia, Malnutrition. S/P EGD with PEG tube placement (10/17/16)-----> The upper, middle, and distal third of the esophagus were carefully inspected and no abnormalities were noted. The z-line was well seen at the GEJ. The endoscope was pushed into the fundus which was normal including a retroflexed view. The antrum, first and second part of the duodenum were unremarkable, PEG placed successfully. Tolerating TF. Market Research Lead recommends Nepro to 50 mls/hr to meet nutritional needs. It is going at 35cc/hr at this time. Will defer to CCM as he is in fluid overload. - Multiple acute septic CVA, brain abscesses with small SAH, right temporal hemorrhagic conversion. Per Nsx. - Acute respiratory failure with severe pulmonary edema. O2 sat's dropped to 84 % and he became tachycardic with a HR in the 150's and tachypneic. His FIO2 was increased to 70% and his O2 saturations and hr/rr improved. He is being started on a bumex gtt. - Aortic valve endocarditis with severe aortic insufficiency with probable AV perforation. He is considered high risk for valve replacement here. The patient has been accepted by Dr. Alan Edmondson at [facility] on 10/31, although there is not a transfer date as of yet. Nafcillin. Levaquin. - Fevers secondary to above. 10/21 Urine cx with corynebacterium, sputum with enterobacter cloacae, and 10/16/16 bcx with staphylococcus epidermidis. 10/21 Bcx with no growth 5 days. Rpt Urine cx penidng, sputum with light growth normal respiratory failure. WBC 9.0. Nafcillin. Levaquin. PLAN - TF as tolerated - Cont. PPI - Monitor HH - Transfuse as necessary - Notify GI of any active bleeding - Will hold on endoscopic evaluation at this time, as he is not stable. It is reassuring that his EGD on 10/17/16 was unremarkable and that he is not having any obvious signs of GI bleeding. PEG tube was flushed and aspirated and he had clear/tf gastric secretions. Will monitor and consider EGD when stable or if there is signs of active bleeding. - Pt seen and examined by Dr. Brito and myself and this note is written on his behalf Morena Pena Oct 31, 2016 08:59
[2016-10-31] MEDS ORDERED: BUMETANIDE INJ 1 MG/4 ML VIAL IV PUSH SCH (09:00)
[2016-10-31] MEDS ORDERED: POTASSIUM CHLORIDE 25 MEQ EFFERVESCENT TAB PO SCH (09:00)
--- NOTE | 2016-10-31 09:00 | RADRPT ---
EXAM DATE/TIME: 10/31/2016 07:29 [place] COMPARISON: CHEST SINGLE AP, October 31, 2016, 4:04. INDICATIONS : Respiratory disease. MEDICAL HISTORY : Seizures. Cardiovascular disease SURGICAL HISTORY : Tracheostomy. ENCOUNTER: Subsequent ACUITY: 1 month PAIN SCORE: Non-responsive. LOCATION: Bilateral chest FINDINGS: Trach tube and central line are in good position. Increasing interstitial and alveolar opacities are present in both lungs worse on the right than the left. There is no pneumothorax. The heart remain s enlarged. CONCLUSION: Deterioration appearance of the chest increasing opacification, mixed interstitial and alveolar opaci ties. There is no significant fluid. Jair Coello MD FACR on October 31, 2016 at 8:57 Board Certified Radiologist. This report was verified electronically.
[2016-10-31] MEDS ORDERED: BUMETANIDE INJ 100 ML IV SCH (10:00)
--- NOTE | 2016-10-31 11:09 | HHI.IDPN ---
Note Infectious Disease Note Patient remains on the vent. 70% FIO2. Developed acute pulmonary edema. Decreased Hgb. Sedated. Afebrile. Off Levophed. Has loose stools. Rectal bag in place. Discussed with RN. Trach - placed 10/15. Peg placed 10/17. Repeat TTE 10/16 noted - apparent perforation of aortic valve leaflet. severe aortic regurg. Sputum - Bronch washing 10/15 has Enterobacter. Sputum endotracheal - 10/16 - gram neg derrick. Sputum 10/21 - Enterobacter. 10/24 - Normal traci. Blood cultures 09/30 Staph aureus in 5 of 6 bottles. Blood culture 10/02 positive. staph aureus. Blood culture 10/03 positive. staph aureus. Blood culture 10/04 positive. staph aureus. Blood culture 10/05 negative. Blood culture 10/06 negative. Blood culture 10/16 - 1 bottle with staph coag neg. Blood culture 10/21 - No growth. Patient was brought to the emergency department with altered mental status. Was evaluated for rash at preceding ED evaluation 2 days prior. PAST MEDICAL HISTORY 1. Substance abuse. The patient was in rehabilitation 1 year ago. 2. ADHD. 3. Degenerative disk disease. ALLERGIES Reportedly the patient is allergic to SULFA, PENICILLIN, TORADOL, CODEINE. ANTIBIOTICS: Nafcillin Levaquin. OBJECTIVE: Vital Signs Date Time Temp Pulse Resp B/P Pulse Ox O2 Delivery O2 Flow Rate FiO2 10/31/16 07:40 94 80 10/31/16 07:00 99 Mechanical Ventilator 80 10/31/16 06:49 92 80 10/31/16 06:00 151 10/31/16 04:00 98.9 108 20 97/47 100 10/31/16 04:00 108 10/31/16 04:00 40 10/31/16 03:46 100 40 10/31/16 02:00 109 10/31/16 00:50 94 50 10/31/16 00:00 120 10/31/16 00:00 40 10/31/16 00:00 99.6 120 20 101/44 97 10/30/16 22:00 130 10/30/16 21:30 97 40 10/30/16 20:00 40 10/30/16 20:00 114 10/30/16 20:00 100 Mechanical Ventilator 40 10/30/16 20:00 99.3 114 20 100/49 100 10/30/16 18:00 40 10/30/16 18:00 40 10/30/16 16:00 98.7 115 20 97/46 100 10/30/16 15:00 40 10/30/16 12:00 98.1 114 16 115/53 100 10/30/16 11:33 94 40 10/30/16 11:30 40 10/30/16 10/30/16 10/31/16 15:00 23:00 07:00 Intake Total 832 ml 1323 ml 793 ml Output Total 1700 ml 1000 ml 500 ml Balance -868 ml 323 ml 293 ml IV Total 527 ml 914 ml 391 ml Tube Feeding 305 ml 209 ml 202 ml Other 200 ml 200 ml Output Urine Total 1700 ml 1000 ml 500 ml # Bowel Movements 2 1 1 Laboratory Tests Test 10/31/16 04:25 White Blood Count 9.0 TH/MM3 Red Blood Count 2.16 MIL/MM3 Hemoglobin 6.4 GM/DL Hematocrit 18.7 % Mean Corpuscular Volume 86.5 FL Mean Corpuscular Hemoglobin 29.5 PG Mean Corpuscular Hemoglobin 34.1 % Concent Red Cell Distribution Width 15.2 % Platelet Count 174 TH/MM3 Mean Platelet Volume 8.3 FL Neutrophils (%) (Auto) 79.1 % Lymphocytes (%) (Auto) 13.1 % Monocytes (%) (Auto) 4.7 % Eosinophils (%) (Auto) 2.7 % Basophils (%) (Auto) 0.4 % Neutrophils # (Auto) 7.1 TH/MM3 Lymphocytes # (Auto) 1.2 TH/MM3 Monocytes # (Auto) 0.4 TH/MM3 Eosinophils # (Auto) 0.2 TH/MM3 Basophils # (Auto) 0.0 TH/MM3 CBC Comment DIFF FINAL Differential Comment Laboratory Tests Test 10/31/16 04:25 Sodium Level 138 MEQ/L Potassium Level 3.7 MEQ/L Chloride Level 101 MEQ/L Carbon Dioxide Level 29.6 MEQ/L Anion Gap 7 MEQ/L Blood Urea Nitrogen 32 MG/DL Creatinine 1.15 MG/DL Estimat Glomerular Filtration 77 ML/MIN Rate Random Glucose 101 MG/DL Calcium Level 8.5 MG/DL Magnesium Level 2.1 MG/DL Total Bilirubin 0.6 MG/DL Aspartate Amino Transf 20 U/L (AST/SGOT) Alanine Aminotransferase 12 U/L (ALT/SGPT) Alkaline Phosphatase 60 U/L Total Protein 6.9 GM/DL Albumin 3.1 GM/DL Microbiology Date/Time Procedure Status Source Growth 10/30/16 13:00 Urine Culture Received Urine Catheterized Urine Pending IMAGING: Chest X-Ray 10/29/16599 Signed Impressions: Service Date/Time: Saturday, October 29, 2016 03:03 - CONCLUSION: No significant change. Mild to moderate bilateral infiltrates persist. Michael Freitas MD Chest X-Ray 10/26/16599 Signed Impressions: Service Date/Time: Wednesday, October 26, 2016 05:32 - CONCLUSION: 1. Patchy alveolar disease characteristic of edema or pneumonia. There has been no significant change when compared to the prior exam. Timmy Lynne MD Chest X-Ray 10/25/16599 Signed Impressions: Service Date/Time: October 04:41 - CONCLUSION: Mild improvement in aeration of right midlung, however otherwise not significantly changed. Angela Basilio MD Brain MRI 10/25/16599 Signed Impressions: Service Date/Time: October 08:23 - CONCLUSION: 1. Continued large areas of abnormal contrast enhancement with surrounding edema involving the right temporal parietal cortex, the watershed distribution posteriorly on the left and patchy areas within the high cortices as well as the right cerebellar hemisphere. These have minimally decreased in size compared to previous. The overall amount of fluid associated with the lesions has decreased as well. Findings would suggest mild interval improvement compared to previous. There is decreasing right to left falcine shift. The amount of hemorrhage associated with these areas is stable. No new areas of hemorrhage are seen. Cody Coello MD Chest X-Ray 10/18/16599 Signed Impressions: Service Date/Time: October 04:52 - CONCLUSION: Mild infiltrate in the right lower lobe. Central line in good position. Loyd Black MD Brain MRI 10/18/16599 Signed Impressions: Service Date/Time: October 11:38 - CONCLUSION: 1. Grossly abnormal examination demonstrating large areas of edema with abnormal contrast enhancement in both hemispheres. There are focal rim enhancing fluid collection seen in the left posterior parietal cortex, centrally and the high left parietal cortex and in the right posterior temporal cortex. Findings would be concerning for cerebritis and abscess. 2. 7.5 mm of [id number] falcine shift. 3. Focal area of abnormal enhancement and edema within the right side of the cerebellum again concerning for cerebritis/abscess in this patient with known history of endocarditis. 4. This patient's examination has significantly worsened when compared to previous dated 09/30/16. Cody Coello MD Head CT 10/16/16 0000 Signed Impressions: Service Date/Time: Sunday, October 16, 2016 04:37 - CONCLUSION: Large area of edema in the right temporal lobe with now some central areas of hemorrhage clearly more impressive than on the , in particular the amount of hemorrhage present. I don't see drainable collection, it is more of an elongated curvilinear area. Small area stroke and edema in the medial left parietal lobe. Improvement in the lower left lateral parietal lesion with much less edema today Loyd Black MD Chest X-Ray 10/15/16 0000 Signed Impressions: Service Date/Time: Saturday, October 15, 2016 13:21 - CONCLUSION: Trach is in good position without pneumothorax. Jair Coello MD FACR PHYSICAL EXAMINATION GENERAL: Sedated. Restless. HEENT: No icterus. Oropharynx: moist mucosa. NECK: No adenopathy. No swelling. Trach site without e/o infection. LUNGS: Bibasilar rhonchi. HEART: 2-3/6 systolic murmur at the left sternal border. Loud S1S2. No rubs or gallops. ABDOMEN: Bowel sounds are present, soft, no tenderness. EXTREMITIES: No clubbing or cyanosis or edema. Embolic purpuric lesions at the plantar aspect of the 4th and 5th toe on the left and the great toe on the right are resolved. Few very tiny petechial lesions at dorsum of feet is faded. SKIN: Resolved rash. Dry peeled skin at tips of digits and soles of feet with new underlying skin. NEURO: Sedated. PSYCH: Unable to assess. IMPRESSION 1. Septic shock due to Staph aureus. Persistent bacteremia. MSSA. Blood culture now negative reflecting clearance. 2. Acute endocarditis. [place] aortic valve. Staph aureus. 3. Acute respiratory failure. 4. Bilateral lung infiltrates, probably secondary to septic emboli. 5. Enterobacter PNA. 66. 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 7. History of IV drug abuse. Unknown current use status. 8. Antibiotic allergies. 9. Recent drug rash. Medicines in weeks before admission: Clindamycin, Doxycycline, acyclovir, Adderral, Tylenol, prednisone, omeprazole, Ibuprofen. 10. FEVER - C. line changed. WBC elevated. Probably infection related. Temp improved. Corynebacterium in urine is not significant. 11. Diarrhea. Probably antibiotic associated. RECOMMENDATIONS: 1. Continue Nafcillin 2 grams Q 4 hours. 2. Stop Levaquin. 3. Add Flagyl PO. 4. Valve replacement when feasible. 5. Follow temps. 6. UA C&S. 7. Monitor clinical status. Nemesio Jackson MD Oct 31, 2016 11:09
[2016-10-31] MEDS: metroNIDAZOLE 500 MG TAB PO SCH ×2 (12:30→18:19)
--- NOTE | 2016-11-03 08:28 | HHI.DS ---
Discharge Summary Admission Date September 30, 2016 at 17:30 Discharge Date: Oct 31, 2016 Admitting Diagnosis brain abscess. Intracranial hemorrhage. Sepsis. (1) Aortic valve endocarditis ICD Code: I35.8 Diagnosis: Principal (2) Septic shock due to Staphylococcus aureus ICD Code: A41.01 Diagnosis: Principal (3) Acute respiratory failure with hypoxia ICD Code: J96.01 Diagnosis: Principal (4) Brain abscess ICD Code: G06.0 Diagnosis: Principal (5) Embolic stroke ICD Code: I63.9 Diagnosis: Principal (6) Subarachnoid hemorrhage ICD Code: I60.9 Diagnosis: Principal (7) Intracranial hemorrhage ICD Code: I62.9 Diagnosis: Principal (8) Metabolic encephalopathy ICD Code: G93.41 Diagnosis: Principal (9) Flash pulmonary edema ICD Code: J81.0 Diagnosis: Principal (10) HCAP (healthcare-associated pneumonia) ICD Code: J18.9 Diagnosis: Principal (11) Cerebral edema ICD Code: G93.6 Diagnosis: Principal (12) Elevated troponin ICD Code: R74.8 Diagnosis: Principal (13) Agitation ICD Code: R45.1 Diagnosis: Principal (14) Rash and nonspecific skin eruption ICD Code: R21 Diagnosis: Principal (15) Previous IVDU Diagnosis: Secondary Procedures Central line and arterial line placement 09/30/16 Central line placement 10/12/16 Fiber-optic bronchoscopy and tracheostomy placement 10/15/16 PEG tube placement 10/17/16 Central line placement 10/23/16 Brief History This is a 26yM who presents to the ED for altered mental status. On arrival, the patient was obtunded and emergently intubated. His roommate is with him and cannot provide much medical history. The remainder of the history is per EMS and ER documentation and my discussion with the ER physician. Per EMS and ED reports, patient was seen approximately 10 days prior to admission by an unknown physician in the clinic and given antibiotic for fever. After taking the antibiotic, the patient had a new red rash on his hands and healing on his feet. He he was seen in the emergency department 2 days prior to admission for low-grade fever and congestion, generalized weakness, lightheadedness. At that time she was given prescription for prednisone 40 mg daily for 5 days. The patient's landlord apparently found the patient today with altered mental status and called EMS. When EMS arrived, his GCS was 10. There is reports that the patient has a history of substance abuse and was recently in rehabilitation. I did talk to the roommate who confirms that the patient had recently gotten out of rehabilitation and was living with him. The remainder does say that he does not think the patient has been taking any illicit substances recently. In the emergency department, the patient was hypotensive, tachycardic. His head CT is significant for significant areas of infarction in the right frontal , temporal, and cerebellar regions as well as a small area of subarachnoid hemorrhage in the superior right parietal region. Patient has early 3 mm of midline shift as well as effacement on the right. Patient's laboratory data is significant for white blood cell count of 19,000, hemoglobin of 9.9, lactate of 3.7, creatinine 1.69, CK 372, troponin of 11.9. His urine drug screen is positive for opiates and amphetamines. Dr. Dominguez performed a bedside critical care ultrasound which demonstrated hyperdynamic left ventricular function and what appears to be aortic valve vegetations and I measured to be proximally 0.9 x 8.8 cm. This is associated with what appears to be severe aortic regurgitation. There is no pericardial effusion. Right ventricular function is preserved. A formal echo has been ordered to confirm these findings. Critical care medicine has been consulted to evaluate and manage his shock, altered mental status, multiple areas of infarction, and subarachnoid hemorrhage. CBC/BMP: 10/31/16 0425 10/31/16424 Imaging See EMR PE at Discharge GENERAL: Young male, lying in bed, critically ill, sedated on the vent via trach. HEENT: Pupils equal, sluggishly reactive. Mucous membranes moist. NECK: No JVD. Trachea midline. Trach with some old dried blood. CHEST: Bilateral course crackles, increased from yesterday. Bilateral rhonchi CARDIOVASCULAR: S1-S2 normal. + JVD. Early Diastolic murmur Grade 3 best heard LSB ABDOMEN: Soft, nontender, nondistended. No guarding. MUSCULOSKELETAL: No peripheral edema. Distal pulses 2+. NEUROLOGICAL: Heavily sedated due to hypoxia and limits neuro exam. Moving all extremities spontaneously pupils are equal reactive. (Previously When sedation held he intermittently follows command with hand squeeze on right upper extremity). L facial droop. Transfer Summary This is a 26yM who presents to the ED for altered mental status, arrived obtunded and emergently intubated. Per EMS and ED reports, patient was seen approximately 10 days prior to admission by an unknown physician in the clinic and given antibiotic for fever. After taking the antibiotic, the patient had a new red rash on his hands and healing on his feet. He was seen in the emergency department 2 days prior to admission for low-grade fever and congestion, generalized weakness, lightheadedness. At that time she was given prescription for prednisone 40 mg daily for 5 days. The patient's landlord apparently found the patient today with altered mental status and called EMS. When EMS arrived, his GCS was 10. There is reports that the patient has a history of substance abuse and was recently in rehabilitation. Dr. Dominguez did talk to the roommate who confirms that the patient had recently gotten out of rehabilitation and was living with him, and he does not think the patient has been taking any illicit substances recently. CT of the head revealed significant areas of infarction in the right frontal, temporal, and cerebellar regions as well as a small area of subarachnoid hemorrhage in the superior right parietal region. Patient has early 3 mm of midline shift as well as effacement on the right. Patient's laboratory data is significant for white blood cell count of 19,000, hemoglobin of 9.9, lactate of 3.7, creatinine 1.69, CK 372, troponin of 11.9. His urine drug screen is positive for opiates and amphetamines (Apparently was prescribed Lortab recently and takes Adderall for ADHD). Dr. Dominguez performed a bedside critical care ultrasound which showed aortic valve vegetations approximately 0.9 x 8.8 cm, associated with aortic regurgitation. Formal echo later confirmed these findings. Patient was admitted to Critical care medicine for shock, altered mental status, multiple areas of infarction, and subarachnoid hemorrhage, or secondary to probable infective endocarditis. Subsequent blood cultures grew MSSA in all bottles infectious disease was consulted Hospital course after admission- 10/01: Patient on norepinephrine at 6 mcg/min, persistently in shock. patient localizes to pain x [address] extremities. repeat interval head CT with 4mm midline shift. echo with significant aortic valve vegetations and moderate aortic insufficiency. 10/02: now following commands intermittently on the RUE, still localizing in LUE , BLE. off vasopressors this morning. cultures growing staph, sensitivities to follow. 10/03: tachycardic overnight. off vasopressors this morning. not following commands this morning. still persistently febrile and wbc uptrended to 20k. 10/04: still encephalopathic. EEG negative for seizure activity. received 1 trial dose of oxacillin yesterday without evidence of allergic reaction, per ID 10/05: persistent encephalopathy. but now briskly purposeful x 4. now on oxacillin. discussed with ID, and started gent induction. wbc downtrending today. still febrile. 10/06: neuro exam unchanged. still purposeful. blood cultures negative x 24h. On 1mcg/min levophed 10/07: neuro exam stable. very agitated, not following commands. blood cultures negative x 48h. off levophed. 10/08: neuro exam stable. CT with increased midline shift and persistent edema, particularly right side. back on levophed. febrile. wbc stable. 10/09: sodium not at goal, likely due to normal renal function. follows commands in the RUE. spontaneously moves BLE, LUE. wbc downtrending. hgb 7 this AM, but no other signs of end-organ damage from low o2 delivery. 10/10 failed to SBT today due to rapid shallow breathing also tachycardia. Patient found to have a significant anemia below 7 will transfuse and reattempt SBT later today 10/11: Flash pulmonary edema today requiring sedation protocol and vent manipulations. Hypoxemia to 70s. 10/12: Some improvement in gas exchange after heavy sedation and relaxant. 10/13: Tmax 100.3, requiring high dose sedation. 10/14: Leukocytosis resolving. Still way ahead on free water - increase diuretics. Prealbumin 17, adjust TFs accordingly. 10/15: deeply sedated s/p severe agitation from prior causing pulmonary edema and hypoxia. talked with family at length, not clinically improving on pathway, plan for tracheostomy and PEG tube for further improvements. also still significantly + on volume. still on vasopressors, but does not clinically appear to be in significant shock. 10/16: CT scan today with new hemorrhage into right temporal stroke area with 9mm midline shift. neurosurgery aware. no significant improvements in neurologic exam. repeat echo pending. 10/17: Neuro exam remains unchanged. Per Dr. Michelle CT from 10/16/16 showed small amount of new hemorrhage circumferentially along the area of the previous right temporal infarct. There is increased right temporal edema and mass effect but relatively focal primarily along the ventricle, and there is not significant compression along the brainstem or cisterns. Continued medical management, increased Na 145-150. Tmax 100.3, white count increased to 14.3. Enterobacter in BAL 10/15, start Levofloxacin 10/18 MRI shows multiple brain abscesses bilaterally. Large R sided stroke with midline shift 7.[address] Michelle will review images. ID feels oxacillin sufficient. Clinically neuro slightly improved. Spontaneous eye opening moves right upper and lower extremities spontaneously. (Mother states he squeezes hand to command) 10/19: Neuro exam slowly improving, squeezes with both hands. WBC count improved. Intermittently requiring Levophed. Remains tachycardic. Start scheduled metoprolol, start scheduled methadone to reduce fentanyl requirement 10/20 stable overnight, continue methadone and attempt to reduce fentanyl 10/21 will adjust methadone dose recommendation for detoxification off opiate addiction 10/22: Received Ativan overnight for agitation, now sedated moving all extremities spontaneously. Sodium 153. Urine output is adequate. Chest x-ray shows mild pulmonary edema 10/23: Getting 2 units PRBC for Hb 6.9. Intermittently agitated, with tachycardia. Fever up to 103 today. Change central line. For agitation will attempt to use Precedex again. I discussed with Dr. Cartagena who was the job superintendent while patient had agitation and pulmonary edema while on Precedex. It is clear to me and Dr. Cartagena that it was not an adverse reaction but agitation related to rapid tapering of his sedation and using Precedex alone at that time 10/24: Placed back on ventilator today for hypoxemic respiratory failure, chest x -ray showing florid pulmonary edema. I was emergently called to the room today hypoxemic tachypneic breathing and 50s. Large amount of copious frothy blood- tinged secretions from the trach most likely secondary to severe pulmonary edema. Neuromuscular paralysis given for ventilator synchrony. Required aggressive suctioning and bag and mask ventilation for long time before stabilization. Pulmonary edema is secondary to severe AI. Bronchoscopy revealed normal bronchial tree except for frothy pulmonary edema 10/25: Remains critically ill but stable ventilatory support. Heavily sedated for ventilator synchrony. Chest x-ray shows pulmonary edema with interval improvement. MRI of the brain shows stable to slightly improved lesions and stroke no new hemorrhages 10/26: Remains intubated sedated. Discuss with cardiothoracic surgery yesterday. He is willing to perform aortic valve replacement this Saturday if cleared by neurosurgery Dr. Michelle. Dr. Michelle has documented that patient could proceed with cardiovascular surgery as indicated, and in his opinion relatively low risk of perioperative intracranial hemorrhage with surgery and anticoagulation. Family is being updated on regular basis 10/27 Tachypnea, tachycardia today, improved with ativan prn. Plan for CT brain/ chest today per previous order. 10/28 Still on sedation with propofol/fentanyl for vent synchrony as nurses have noted intermittent agitation, tachypnea. When sedation held he intermittently appears to follow command with hand squeeze on the right upper extremity. Eyes open but does not make eye contact, + facial grimace, L facial droop, withdraw weakly on the left upper. Moves BLE spontaneously, right more than left. Noted Dr. Velazquez to seek input from [facility], surgery on hold for now. 10/29: Remains intubated sedate, on weaning doses of Levo. Follows commands by squeezing hands on sedation hold. Input from [facility] pending at this time 10/30: Remains on vent, on 7 mcg/min of Levo, MAP 80-85, weaned to 5 mcg/min. Instructed to RN to wean Levo to keep MAP >60. I have spoken to the office of Dr. Alan Edmondson, CT surgeon at [facility]. Waiting to hear back from him. Second opinion from pending 10/31: Accepted for nonemergent transfer to [facility], by Dr. Alan Edmondson MD. CTS. patient developed acute hypoxia requiring FiO2 up to 100 % today a.m. chest x-ray shows severe bilateral pulmonary edema. Patient's acute pulmonary edema/heart failure secondary to severe AI. Increase PEEP to 12 TV to 550 and start Bumex infusion for severe pulmonary edema. Rocuronium 50 mg IV x1 I contacted Dr. Anand again later about 2.30PM on 10/31/16 to request an upgrade to emergency transfer due to severe pulmonary edema and hypoxia. He agreed to the request but informed me that a decision to perform aortic valve replacement will be solely based on assessment by him and his team after patient reaches [facility], and there is no guarantee that an AVR will be preformed. I did agree to this condition given the fact AVR was the only survival chance the patient has. (Prior to evaluation for transfer to [facility], I have explained to the family very clearly that even after acceptance for transfer decision for surgery will be made by the surgical team at the receiving hospital, and they were agreeable to these conditions) Hospital Course See transfer summary Pt Condition on Discharge: Deteriorating Discharge Disposition: Disch to Another Hospital Discharge Instructions DIET: Follow Instructions for: On Tube Feeding Activities you can perform: See [place] Instruction Mary Rodriguez MD Nov 03, 2016 08:28 DIET: Follow Instructions for: On Tube Feeding Activities you can perform: See [place] Instruction Mary Rodriguez MD Nov 03, 2016 08:28
== END 2016-10-31 19:22 | disposition short-term general hospital (02) | DRG 3 ==
LOC: NEPE 14:48 → NEDA 17:30 → N03B 18:31
PROVIDERS: ADMIT Internal Medicine Critical Care Medicine; ATTEND Internal Medicine Critical Care Medicine
PROC: 5A1955Z Respiratory Ventilation, Greater than 96 Consecutive Hours (ICD-10-PCS; 2016-09-30)
PROC: 0BH17EZ Insertion of Endotracheal Airway into Trachea, Via Natural or Artificial Opening (ICD-10-PCS; 2016-09-30)
PROC: 02HV33Z Insertion of Infusion Device into Superior Vena Cava, Percutaneous Approach (ICD-10-PCS; 2016-09-30)
PROC: 4A133B1 Monitoring of Arterial Pressure, Peripheral, Percutaneous Approach (ICD-10-PCS; 2016-09-30)
PROC: 4A133J1 Monitoring of Arterial Pulse, Peripheral, Percutaneous Approach (ICD-10-PCS; 2016-09-30)
PROC: 03HY32Z Insertion of Monitoring Device into Upper Artery, Percutaneous Approach (ICD-10-PCS; 2016-09-30)
PROC: 0T9B70Z Drainage of Bladder with Drainage Device, Via Natural or Artificial Opening (ICD-10-PCS; 2016-09-30)
PROC: 0DH67UZ Insertion of Feeding Device into Stomach, Via Natural or Artificial Opening (ICD-10-PCS; 2016-10-02)
PROC: 30233N1 Transfusion of Nonautologous Red Blood Cells into Peripheral Vein, Percutaneous Approach (ICD-10-PCS; 2016-10-10)
PROC: 05H533Z Insertion of Infusion Device into Right Subclavian Vein, Percutaneous Approach (ICD-10-PCS; 2016-10-12)
PROC: 0B113F4 Bypass Trachea to Cutaneous with Tracheostomy Device, Percutaneous Approach (ICD-10-PCS; principal; 2016-10-15)
PROC: 0BCJ8ZZ Extirpation of Matter from Left Lower Lung Lobe, Via Natural or Artificial Opening Endoscopic (ICD-10-PCS; 2016-10-15)
PROC: 0BCC8ZZ Extirpation of Matter from Right Upper Lung Lobe, Via Natural or Artificial Opening Endoscopic (ICD-10-PCS; 2016-10-15)
PROC: 0BCG8ZZ Extirpation of Matter from Left Upper Lung Lobe, Via Natural or Artificial Opening Endoscopic (ICD-10-PCS; 2016-10-15)
PROC: 0BCD8ZZ Extirpation of Matter from Right Middle Lung Lobe, Via Natural or Artificial Opening Endoscopic (ICD-10-PCS; 2016-10-15)
PROC: 0BCF8ZZ Extirpation of Matter from Right Lower Lung Lobe, Via Natural or Artificial Opening Endoscopic (ICD-10-PCS; 2016-10-15)
PROC: 0B9C8ZX Drainage of Right Upper Lung Lobe, Via Natural or Artificial Opening Endoscopic, Diagnostic (ICD-10-PCS; 2016-10-15)
PROC: 0BC78ZZ Extirpation of Matter from Left Main Bronchus, Via Natural or Artificial Opening Endoscopic (ICD-10-PCS; 2016-10-15)
PROC: 0DH63UZ Insertion of Feeding Device into Stomach, Percutaneous Approach (ICD-10-PCS; 2016-10-17)
PROC: 05H633Z Insertion of Infusion Device into Left Subclavian Vein, Percutaneous Approach (ICD-10-PCS; 2016-10-23)
DX: A41.01 Sepsis due to Methicillin susceptible Staphylococcus aureus (principal); G93.6 Cerebral edema; I26.90 Septic pulmonary embolism without acute cor pulmonale; I63.40 Cerebral infarction due to embolism of unspecified cerebral artery; I60.9 Nontraumatic subarachnoid hemorrhage, unspecified; I61.9 Nontraumatic intracerebral hemorrhage, unspecified; G93.41 Metabolic encephalopathy; I74.3 Embolism and thrombosis of arteries of the lower extremities; G06.0 Intracranial abscess and granuloma; L89.152 Pressure ulcer of sacral region, stage 2; J96.01 Acute respiratory failure with hypoxia; J96.02 Acute respiratory failure with hypercapnia; J15.211 Pneumonia due to Methicillin susceptible Staphylococcus aureus; R65.21 Severe sepsis with septic shock; R57.0 Cardiogenic shock; I33.0 Acute and subacute infective endocarditis; J15.6 Pneumonia due to other Gram-negative bacteria; N17.9 Acute kidney failure, unspecified; E87.4 Mixed disorder of acid-base balance; E44.1 Mild protein-calorie malnutrition; I76 Septic arterial embolism; T17.890A Other foreign object in other parts of respiratory tract causing asphyxiation, initial encounter; F11.20 Opioid dependence, uncomplicated; Z99.11 Dependence on respirator [ventilator] status; I11.0 Hypertensive heart disease with heart failure; I50.9 Heart failure, unspecified; F19.10 Other psychoactive substance abuse, uncomplicated; F90.9 Attention-deficit hyperactivity disorder, unspecified type; Z88.0 Allergy status to penicillin; Z88.2 Allergy status to sulfonamides; R00.0 Tachycardia, unspecified; R74.8 Abnormal levels of other serum enzymes; E83.41 Hypermagnesemia; R73.9 Hyperglycemia, unspecified; Z88.1 Allergy status to other antibiotic agents; L27.0 Generalized skin eruption due to drugs and medicaments taken internally; Z51.5 Encounter for palliative care; R79.89 Other specified abnormal findings of blood chemistry; E07.81 Sick-euthyroid syndrome; K59.00 Constipation, unspecified; R45.1 Restlessness and agitation; X58.XXXA Exposure to other specified factors, initial encounter; Y92.239 Unspecified place in hospital as the place of occurrence of the external cause; R13.10 Dysphagia, unspecified; R42 Dizziness and giddiness; I08.1 Rheumatic disorders of both mitral and tricuspid valves; D64.9 Anemia, unspecified; E87.6 Hypokalemia; Z78.1 Physical restraint status; Z87.891 Personal history of nicotine dependence; T36.95XA Adverse effect of unspecified systemic antibiotic, initial encounter
CPT/HCPCS: 31500; 31600; 31624; 36430; 36556; 36600; 51702; 70450; 70544; 70553; 71010; 71250; 76775; 80048; 80053; 80074; 80202; 80307; 81001; 82140; 82533; 82550; 82552; 82570; 82805; 82948; 83605; 83690; 83735; 83930; 84100; 84132; 84134; 84145; 84155; 84295; 84300; 84439; 84443; 84481; 84484; 85007; 85025; 85027; 85384; 85610; 85652; 85730; 86403; 86703; 86850; 86900; 86901; 86920; 87015; 87040; 87070; 87077; 87086; 87102; 87116; 87147; 87186; 87205; 87206; 87641; 89051; 93005; 93306; 93308; 94002; 94003; 94640; 94664; 95819; 96365; 96366; 96374; 96375; 99284; A9579; C9113; J0131; J0171; J0461; J0692; J0696; J1120; J1580; J1630; J1940; J1956; J2060; J2250; J2370; J2700; J3010; J3370; J3480; J7030; J7040; J7050; J7120; J7512; J7613; P9016; P9021; P9047

== ENCOUNTER 2016-11-02 21:18 | Inpatient (IN) | payer OTHER ==
[~2016-11-02 21:18] MED LIST changes: +ACYC200C66 PO; +IBUP-232 PO; +MECL25CH CHEW; +TYLETAB34 PO
[2016-11-03] VITALS (10 sets, daily range): BP systolic 105–118; BP diastolic 55–59; PULSE 86–113; RESP 18–26; TEMP 98.3–100.2; O2SAT 92–100
[2016-11-03] MEDS ORDERED: SODIUM PHOSPHATE INJ 30 MMOL in SODIUM CHLOR 0.9% 250 ML INJ 240 ML IV PRN (10:30)
[2016-11-03] MEDS ORDERED: CHLORHEXIDINE GLUCONATE 2 % 1 PACK (2 CLOTHS) TOP PRN (10:30)
[2016-11-03] MEDS ORDERED: ONDANSETRON HCL 4 MG/2 ML VIAL IV PRN (10:30)
[2016-11-03] MEDS ORDERED: MAGNESIUM SULFATE INJ 2 GM in SODIUM CHLORIDE 0.9% INJ 96 ML IV PRN (10:30)
[2016-11-03] MEDS ORDERED: MISCELLANEOUS NURSING INFORMATION XX SCH (10:30)
[2016-11-03] MEDS ORDERED: POTASSIUM CHLOR 20 MEQ PREMIX 100 ML IV PRN ×2 (10:30)
[2016-11-03] MEDS ORDERED: MAGNESIUM SULFATE INJ 4 GM in SODIUM CHLORIDE 0.9% INJ 92 ML IV PRN (10:30)
[2016-11-03] MEDS ORDERED: MAGNESIUM OXIDE 400 MG TAB PO PRN (10:30)
[2016-11-03] MEDS ORDERED: POTASSIUM PHOSPHATE MONOBASIC 500 MG TAB PO PRN (10:30)
[2016-11-03] MEDS ORDERED: POTASSIUM PHOSPHATE INJ 30 MMOL in SODIUM CHLOR 0.9% 250 ML INJ 250 ML IV PRN (10:30)
[2016-11-03] MEDS ORDERED: POTASSIUM PHOSPHATE MONOBASIC 500 MG TAB PO/TUBE PRN (10:30)
[2016-11-03] MEDS ORDERED: DEXTROSE 50% IN WATER 50 ML VIAL(D50) IV PUSH PRN (10:30)
[2016-11-03] MEDS: PROPOFOL 1000 MG/100 ML INJ 100 ML IV SCH ×3 (10:59→22:26)
[2016-11-03] MEDS: fentaNYL DRIP 250 ML IV SCH ×2 (10:59→20:20)
--- NOTE | 2016-11-03 11:28 | RADRPT ---
EXAM DATE/TIME: 11/03/2016 10:48 [facility] COMPARISON: CHEST SINGLE AP, October 31, 2016, 7:29. INDICATIONS : Shortness of breath MEDICAL HISTORY : Seizures. Cardiovascular disease SURGICAL HISTORY : None. ENCOUNTER: Subsequent ACUITY: 1 month PAIN SCORE: Non-responsive. LOCATION: Bilateral chest FINDINGS: Tracheostomy tube remains in place. There is no evidence of pneumothorax. There is improving aeration of the lung preciado. There continues to be interstitial and airspace disease. The heart size is stabl e. No definite pleural effusions. CONCLUSION: Improving aeration of the lung preciado compared to the prior study. Omari Myoa MD on November 03, 2016 at 11:25 Board Certified Radiologist. This report was verified electronically.
[2016-11-03] MEDS: INSULIN NovoLIN REGULAR SUPPLEMENTAL SCALE SQ SCH ×2 (12:00→18:00)
[2016-11-03] MEDS: RESP: ALBUTEROL 2.5 MG/IPRATROPIUM 0.5 MG NEB (SCH) INH ×2 (14:42→19:26)
--- NOTE | 2016-11-03 15:47 | ECHRPT ---
Indication: Endocarditis and heart valve disorders in diseases classified elsewhere CONCLUSIONS Severe aortic valve regurgitation. Mobile vegetation on the aortic valve. Large vegetation on the aortic valve. The left ventricular systolic function is low normal with an estimated ejection fraction in the rang e of 50- 55%. BP: / HR: 97 Rhythm: MEASUREMENTS (Male / Female) Normal Values Technical Quality: DOPPLER AV Peak Velocity 179.0 cm/s AI Peak Gradient 53.3 mmHg AV Peak Gradient 12.8 mmHg AI Pressure Half Time 101.0 ms AV Mean Gradient 7.0 mmHg TR Peak Velocity 281.5 cm/s AV Velocity Time Integral 33.5 cm TR Peak Gradient 31.7 mmHg AI Peak Velocity 365.0 cm/s Medications Complications Proc. Components FINDINGS LEFT VENTRICLE The left ventricular systolic function is low normal with an estimated ejection fraction in the rang e of 50- 55%. MITRAL VALVE Trace mitral valve regurgitation. AORTIC VALVE Severe aortic valve regurgitation. Mobile vegetation on the aortic valve. Large vegetation on the aortic valve. TRICUSPID VALVE mild tricuspid regurgitation Bryan Brasher MD (Electronically Signed) Final Date:03 November 2016 15:46
--- NOTE | 2016-11-03 18:14 | PD.PROCEDR ---
Procedure Note Procedure Procedure: Transesophageal Echocardiography Diagnosis: Severe aortic insufficiency, infective aortic valve endocarditis Indications: Need for prognosis and better evaluation of the aortic valve Consent: Written consent was obtained Anesthesia: Propofol IV Description of the Procedure: The patient was sedated and mechanically ventilated. The patient was placed on 100% FIO2. The echo probe was inserted easily and without resistance. At the conclusion of the procedure, the echo probe was removed. Please see detailed echocardiogram report for formal findings. Preliminary Findings (not confirmed): 1. Normal Biventricular size and function 2. Severe Aortic Insufficiency- the aortic valve does not coapt appropriately secondary to aortic valve vegetations. visible prolapse into the LVOT. 3. No aortic stenosis 4. No mitral regurgitation 5. No pericardial effusion 6. Trace tricuspid regurgitation 7.Small left pleural effusion 8. No evidence of perivalvular abscess. 9. No intra-atrial shunting by color flow doppler. The patient tolerated the procedure well with no hemodynamic instability or hypoxia. There were no immediate complications noted. At the conclusion of the procedure, the patient was placed back on their pre-procedure ventilatory settings. There was minimal EBL. I personally performed the procedure. Yahir Dominguez MD Nov 03, 2016 18:14
[2016-11-03] MEDS: CEFEPIME INJ 2,000 MG in SODIUM CHLORIDE 0.9% INJ 100 ML IV SCH (19:00)
--- NOTE | 2016-11-03 19:06 | HHI.HP ---
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 His course was complicated by persistent respiratory failure requiring tracheostomy, intracerebral abscess, and severe aortic insufficiency with at least 4 episodes of flash pulmonary edema and near fatal hypoxic respiratory failure. He was evaluated by 2 cardio thoracic surgeons at this institution and deemed not to be a surgical candidate. He was then transferred to [facility] for an outside opinion, where cardiac thoracic surgery at that facility along with infectious disease and neurology at that facility deemed him to be not a surgical candidate. He reports to [facility] in transfer back from [facility]. He remained stable without change and acute clinical status. He is still intubated and encephalopathic. Additional history is unobtainable from the patient. Review of Systems ROS Limitations: Clinical Condition, Intubated, Unresponsive Past Family Social History Allergies: Coded Allergies: Hydrocodone (Verified Allergy, Unknown, Nausea/Vomiting, 10/04/16) Mother called Dentist to verify Sulfa (Verified Allergy, Unknown, 09/30/16) Toradol (Verified Allergy, Unknown, 09/30/16) Past Medical History Patient has a history of ADHD for which she took Adderall Has a history of IV drug abuse status post rehabilitation and per every documentation that we have has been clean for greater than 2 years Recent medical history of infective aortic valve endocarditis Recent medical history of septic intracerebral emboli with intracerebral abscess , hemorrhagic conversion of infarctions Recent medical history of severe aortic insufficiency causing severe CHF exacerbation secondary to valvulopathy Past Surgical History Status post trach, status post PEG Reported Medications Prior to his inpatient admission in September, he took a short course of opiates for lower extremity pain and he took Adderall for his ADHD Active Ordered Medications See MAR Family History Reviewed again in the chart and found to be noncontributory to his acute illness Social History Prior IV drug abuse. Drug screens have been appropriate Physical Exam Vital Signs Vital Signs Date Time Temp Pulse Resp B/P Pulse Ox O2 Delivery O2 Flow Rate FiO2 11/03/16 16:00 98.9 113 21 110/57 100 11/03/16 16:00 50 11/03/16 16:00 113 11/03/16 14:40 50 11/03/16 14:35 99 50 11/03/16 14:00 91 11/03/16 12:11 100 100 11/03/16 12:00 94 11/03/16 12:00 98.3 94 18 118/56 100 11/03/16 11:45 100 11/03/16 10:30 86 11/03/16 10:30 50 11/03/16 10:30 100 Mechanical Ventilator 50 11/03/16 10:00 98.3 86 26 112/55 100 Physical Exam GENERAL: Young male, lying in bed, encephalopathic, trached on a ventilator HEENT: Normocephalic. Atraumatic. Pupils equal, round, reactive, conjugate. Mucous membranes are moist NECK: Trachea is midline. There is no JVD. CHEST: Tracheostomy in place. Equal chest rise. Bilateral coarse rales. CARDIOVASCULAR: Tachycardic rate, regular rhythm. Sinus by telemetry ABDOMEN: Soft, nontender, nondistended. No guarding. PEG tube in place. MUSCULOSKELETAL: Pulses 2+. No peripheral edema. NEUROLOGICAL: RASS -4. Does track intermittently with his eyes. Does not follow commands. Withdrawals 4. Laboratory Laboratory Tests Test 11/03/16 12:20 Nasal Screen MRSA (PCR) MRSA NOT DETECTED Assessment and Plan Assessment and Plan Assessment: This is a 26-year-old male with infective aortic valve endocarditis , intracerebral septic emboli with intracerebral abscess and hemorrhagic conversion of infarctions, severe CHF exacerbation secondary to valvulopathy, severe persistent encephalopathy, chronic respiratory failure. He re-presents from [facility] for ongoing management. I have had a very extensive conversation with his family. We repeated a ISABEL here, please see separate procedure note for details, which demonstrates persistence of his severe aortic insufficiency, without evidence of root abscess. Based on his echo, along with the input from outside hospital consultants, I agree with their assessment that he is likely not a surgical candidate at this time. I explain all this to the family. Isolated this point, without surgery, he would certainly , and with surgery, likely given his multiple medical comorbidities, he would . Given that he is young, I think it is reasonable to give the patient and additional 2 weeks to see if we can medically optimize him from a neurologic and cardiovascular standpoint. Likely this will be unsuccessful given that without surgical repair, the patient will not be able to stay out of heart failure. I spent all this to the family. I agreed to continue our aggressive medical management of the patient with the understanding that if he continued to clinically decline we would not pursue ACLS, CPR, or other life-saving measures that would serve only to increase Slim suffering and not improve his overall clinical outcome. The family expressed understanding of this and also expressed that they did not want to prolong Slim suffering and that they would not want CPR if he continued to clinically decline. Thus we will make the patient DNR, but continue our aggressive medical management for an additional 2 weeks. If at that time he is not clinically improved, I think that we have a responsibility to the patient to pursue comfort measures at that time. Plan: Infective Aortic Valve Endocarditis -- continue Cefepime 2gm iv q8hr (prior abx regimen) -- re-engage ID service -- prior cultures have been negative, will not re-draw at this point -- daily cbc Severe CHF exacerbation secondary to valvulopathy Severe aortic valve insufficiency -- bumex 2mg iv q8hr -- repeat ISABEL 11/03: severe AI. preserved EF. left pleural effusion Metabolic alkalosis -- diamox 500mg iv q8h x 3 doses Severe Encephalopathy Septic Intracerebral emboli Multiple CVAs Hemorrhagic conversion of prior CVAs -- continue to hold anticoagulation -- frequent neuro checks Agitated Delirium -- propofol for goal RASS -2 Acute on chronic hypoxic respiratory failure -- diuresis as above -- continue PRVC -- no sbt today given persistent hypoxia -- wean fio2 for spo2 > 90% Acute protein calorie malnutrition- severe -- restart TF Dispo: -- re-admit to the ICU. continues to be critically ill. Code Status DNR Yahir Dominguez MD Nov 03, 2016 19:06
[2016-11-03] MEDS: BUMETANIDE INJ 1 MG/4 ML VIAL IV PUSH SCH (20:17)
[2016-11-03] MEDS: CHLORHEXIDINE 0.12% (ORAL KIT) 15 ML CUP MT SCH (20:18)
[2016-11-04] VITALS (13 sets, daily range): BP systolic 95–110; BP diastolic 45–53; PULSE 93–109; RESP 17–25; TEMP 98.1–100.8; O2SAT 96–100
[2016-11-04] MEDS: CEFEPIME INJ 2,000 MG in SODIUM CHLORIDE 0.9% INJ 100 ML IV SCH ×2 (01:17→10:00)
[2016-11-04] MEDS: PROPOFOL 1000 MG/100 ML INJ 100 ML IV SCH ×4 (01:48→18:53)
[2016-11-04] MEDS: RESP: ALBUTEROL 2.5 MG/IPRATROPIUM 0.5 MG NEB (SCH) INH ×4 (03:15→19:59)
[2016-11-04] MEDS: CHLORHEXIDINE GLUCONATE 2 % 1 PACK (2 CLOTHS) TOP SCH (04:00)
[2016-11-04] MEDS: BUMETANIDE INJ 1 MG/4 ML VIAL IV PUSH SCH ×3 (04:07→19:01)
[2016-11-04 05:09] LABS: HEMATOCRIT 21.9 % (39.0-51.0); MEAN CORPUSCULAR HEMOGLOBIN 28.8 PG (27.0-34.0); MEAN CORPUSCULAR HGB CONC 33.1 % (32.0-36.0); PLATELET COUNT 208 TH/MM3 (150-450); RED BLOOD COUNT 2.51 MIL/MM3 (4.50-5.90); RED CELL DISTRIBUTION WIDTH 15.2 % (11.6-17.2); REVIEW FLAG FINAL; WHITE BLOOD COUNT 11.6 TH/MM3 (4.0-11.0)
[2016-11-04 05:41] LABS: BICARBONATE 30.4 MEQ/L (21.0-32.0)
[2016-11-04 05:53] LABS: POTASSIUM 2.4 MEQ/L (3.5-5.1)
[2016-11-04] MEDS: INSULIN NovoLIN REGULAR SUPPLEMENTAL SCALE SQ SCH ×5 (06:00→23:06)
[2016-11-04] MEDS: POTASSIUM CHLOR 40 MEQ PREMIX 100 ML IV PRN ×2 (06:00→10:12)
[2016-11-04] MEDS: fentaNYL DRIP 250 ML IV SCH ×3 (06:19→18:52)
[2016-11-04] MEDS: CHLORHEXIDINE 0.12% (ORAL KIT) 15 ML CUP MT SCH ×2 (10:13→20:13)
--- NOTE | 2016-11-04 11:20 | PD.CONS ---
History of Present Illness Service Infectious disease Consult Requested By Dr Kevin Dominguez Reason for Consult Evaluate patient with endocarditis Primary Care Physician No Primary Care Physician Diagnoses: History of Present Illness Patient seen and examined. Records reviewed. Patient is a 26-year-old male initially admitted at [facility] September 30, was diagnosed to have high-grade MSSA septicemia, with documented large mobile aortic valve vegetation with severe AI, with embolic lesions to the brain. He was transferred to [facility] October 31 for cardiothoracic surgical evaluation. During his previous hospitalization he had positive blood cultures with MSSA from 09/30 to 10/04. He was getting IV oxacillin. Patient also required ventilatory support, and eventually required tracheostomy placement. He also had some cultures from the sputum dated October 21 with Enterobacter, and he had a urine culture from October 30 with Cassandra albicans. Patient was evaluated at [facility], and felt not to be a surgical candidate. He was transferred back here to [facility] November 03. Since readmission, he has had some low-grade fevers. He remains on the vent. He has a central line in the left subclavian that was placed October 23. Has a Jerez catheter in place. His chest x-ray is showing improvement in his infiltrates compared to his last chest x-ray. Infectious disease consultation has been requested to continue with his endocarditis management and treatment. Review of Systems ROS Limitations: Clinical Condition Past Family Social History Allergies: Coded Allergies: Hydrocodone (Verified Allergy, Unknown, Nausea/Vomiting, 10/04/16) Mother called Dentist to verify Sulfa (Verified Allergy, Unknown, 09/30/16) Toradol (Verified Allergy, Unknown, 09/30/16) Past Medical History Substance abuse ADHD Degenerative disc disease Past Surgical History Tracheostomy Active Ordered Medications Tylenol Diamox Albuterol Bumex Cefepime Fentanyl Insulin Magnesium Zofran Oxycodone Potassium Diprivan Geodon Family History Noncontributory to his current ID problem Social History Record indicated no smoking Alcohol use History of substance abuse, and he was reportedly in the rehabilitation about a year ago Physical Exam Vital Signs Vital Signs Date Time Temp Pulse Resp B/P Pulse Ox O2 Delivery O2 Flow Rate FiO2 11/04/16 07:34 97 40 11/04/16 04:10 96 40 11/04/16 04:00 45 11/04/16 04:00 100.0 109 17 97/48 97 11/04/16 04:00 109 11/04/16 01:05 99 45 11/04/16 00:00 93 11/04/16 00:00 45 11/04/16 00:00 100.8 93 20 95/45 98 11/03/16 22:15 96 50 11/03/16 20:00 106 11/03/16 20:00 100.2 106 19 105/59 94 11/03/16 20:00 50 11/03/16 19:28 92 50 11/03/16 19:00 98 Mechanical Ventilator 50 11/03/16 16:00 98.9 113 21 110/57 100 11/03/16 16:00 50 11/03/16 16:00 113 11/03/16 14:40 50 11/03/16 14:35 99 50 11/03/16 14:00 91 11/03/16 12:11 100 100 11/03/16 12:00 94 11/03/16 12:00 98.3 94 18 118/56 100 11/03/16 11:45 100 Physical Exam GENERAL: Patient is a thin, well-developed CM, awake, seems to be focusing , not following, on the vent with trach, not in respiratory distress. SKIN: Warm and dry. Some peeling of skin in LE. No generalized rash, no ecchymoses and no evidence of embolic lesions. HEAD: Atraumatic. Normocephalic. No temporal wasting, or tenderness. EYES: [place] conjunctiva. No petechia or hemorrhage. Pupils equal, round and reactive to light. No scleral icterus. No injection or drainage. EARS, NOSE AND THROAT: Nose without bleeding or purulent nasal discharge. No sinus tenderness. NECK: Trachea midline. Supple and not tender, no meningeal signs. Trach site ok CARDIOVASCULAR: Regular rate and rhythm. Tachycardic. Has systolic and diastolic murmur hear base and also L precordium. No rub. RESPIRATORY: Coarse breath sounds bilaterally. ABDOMEN: Soft, non-tender, nondistended. Bowel sounds present and normoactive. No guarding. No rebound. No organomegaly. EXTREMITIES: No clubbing, cyanosis, or edema. No joint effusion, has good ROM. Well perfused and warm. NEUROLOGICAL: Awake, seems to be focusing, not following. PSYCHIATRIC: Unable to assess LINE: LSC TLC with no drainage Laboratory Laboratory Tests Test 11/03/16 11/04/16 12:20 04:33 Nasal Screen MRSA (PCR) MRSA NOT DETECTED White Blood Count 11.6 Red Blood Count 2.51 Hemoglobin 7.2 Hematocrit 21.9 Mean Corpuscular Volume 87.0 Mean Corpuscular Hemoglobin 28.8 Mean Corpuscular Hemoglobin 33.1 Concent Red Cell Distribution Width 15.2 Platelet Count 208 Mean Platelet Volume 9.0 Sodium Level 144 Potassium Level 2.4 Chloride Level 106 Carbon Dioxide Level 30.4 Anion Gap 8 Blood Urea Nitrogen 44 Creatinine 1.08 Estimat Glomerular Filtration 83 Rate Random Glucose 124 Calcium Level 8.8 Result Diagram: 11/04/16 0433 11/04/16 0433 Imaging RADIOLOGY STUDIES/FILMS REVIEWED Chest X-Ray 11/03/16 0000 Signed Impressions: Service Date/Time: Thursday, November 03, 2016 10:48 - CONCLUSION: Improving aeration of the lung preciado compared to the prior study. Omari Moya MD Assessment and Plan Assessment and Plan IMPRESSION MSSA AV endocarditis - with severe AI, [employer] septic embolic lesions - not surgical candidate per evaluation at [facility] respiratory failure S/P trach Recent Enterobacter PNA Rx Cassandra in [facility] 10/30 Low grade temps, ?new nosocomial infection RECOMMENDATION Repeat BC - line and periphery UA and C/S Restart IV Oxacillin Follow new C/S Consider line change Monitor temps Monitor progress Dr Jackson is back tomorrow and will resume ID care Thank you for this consultation Discussed Condition With Spoke with the sister D/W RN D/W Dr Dominguez ([facility]) Estephania Quiñones MD Nov 04, 2016 11:20
[2016-11-04] MEDS: oxyCODONE HCL ORAL CONC 20 MG/ML SYRINGE PO SCH ×4 (11:24→18:55)
[2016-11-04] MEDS: ZIPRASIDONE MESYLATE 20 MG VIAL IM SCH ×2 (11:25→22:13)
[2016-11-04] MEDS: OXACILLIN INJ 2 GM in SODIUM CHLORIDE 0.9% INJ 100 ML IV SCH ×3 (13:03→20:06)
--- NOTE | 2016-11-04 13:31 | HHI.CCPN ---
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 His course was complicated by persistent respiratory failure requiring tracheostomy, intracerebral abscess, and severe aortic insufficiency with at least 4 episodes of flash pulmonary edema and near fatal hypoxic respiratory failure. He was evaluated by 2 cardio thoracic surgeons at this institution and deemed not to be a surgical candidate. He was then transferred to [facility] for an outside opinion, where cardiac thoracic surgery at that facility along with infectious disease and neurology at that facility deemed him to be not a surgical candidate. He reports to [facility] in transfer back from [facility]. He remained stable without change and acute clinical status. He is still intubated and encephalopathic. Additional history is unobtainable from the patient. Subjective: 11/04: agitation persists. cr slightly better. no significant change. ID prefers to change back to oxacillin. another long family discussion today: family has found a facility in [place] they are interested in transferring him to for 3rd opinion. Objective Vital Signs Date Time Temp Pulse Resp B/P Pulse Ox O2 Delivery O2 Flow Rate FiO2 11/04/16 12:20 100 40 11/04/16 04:00 100.0 109 17 97/48 11/03/16 19:00 Mechanical Ventilator Intake and Output 11/03/16 11/03/16 11/04/16 08:00 16:00 00:00 Intake Total 410 ml 871 ml Output Total 350 ml 1400 ml Balance 60 ml -529 ml Result Diagram: 11/04/16 0433 11/04/16 0433 Objective Remarks GENERAL: Young male, lying in bed, encephalopathic, trached on a ventilator HEENT: Normocephalic. Atraumatic. Pupils equal, round, reactive, conjugate. Mucous membranes are moist NECK: Trachea is midline. There is no JVD. CHEST: Tracheostomy in place. Equal chest rise. Bilateral coarse rales. CARDIOVASCULAR: Tachycardic rate, regular rhythm. Sinus by telemetry ABDOMEN: Soft, nontender, nondistended. No guarding. PEG tube in place. MUSCULOSKELETAL: Pulses 2+. No peripheral edema. NEUROLOGICAL: RASS -4. Does track intermittently with his eyes. Does not follow commands. Withdrawals 4. A/P Assessment and Plan Assessment: This is a 26-year-old male with infective aortic valve endocarditis , intracerebral septic emboli with intracerebral abscess and hemorrhagic conversion of infarctions, severe CHF exacerbation secondary to valvulopathy, severe persistent encephalopathy, chronic respiratory failure. He re-presents from [facility] for ongoing management. Based on his echo, along with the input from outside hospital consultants, I agree with their assessment that he is likely not a surgical candidate at this time. At this point, without surgery, he would certainly , and with surgery, likely given his multiple medical comorbidities, he would . Given that he is young, I think it is reasonable to give the patient and additional 2 weeks to see if we can medically optimize him from a neurologic and cardiovascular standpoint. Likely this will be unsuccessful given that without surgical repair, the patient will not be able to stay out of heart failure. We will make the patient DNR, but continue our aggressive medical management for an additional 2 weeks. If at that time he is not clinically improved, I think that we have a responsibility to the patient to pursue comfort measures at that time. Plan: Infective Aortic Valve Endocarditis -- Abx per ID, likely change back to oxacillin. -- prior cultures have been negative, will not re-draw at this point -- daily cbc Severe CHF exacerbation secondary to valvulopathy Severe aortic valve insufficiency -- bumex 2mg iv q8hr -- repeat ISABEL 11/03: severe AI. preserved EF. left pleural effusion Metabolic alkalosis -- diamox 500mg iv q8h x 3 doses, continue this again today. Severe Hypokalemia -- aggressive electrolyte replacement Severe Encephalopathy Septic Intracerebral emboli Multiple CVAs Hemorrhagic conversion of prior CVAs -- continue to hold anticoagulation -- frequent neuro checks Agitated Delirium -- propofol for goal RASS -2 -- add Geodon 10mg IM q12h prn Acute pain associated with decubitus ulcer -- add oxycodone 10mg per tube q4h scheduled Acute on chronic hypoxic respiratory failure -- diuresis as above -- continue PRVC -- no sbt today given agitation -- wean fio2 for spo2 > 90% Acute protein calorie malnutrition- severe -- continue TF Dispo: -- remain in the ICU. remains critically ill. the family is welcome to pursue inter-facility transfer if they choose. Yahir Dominguez MD Nov 04, 2016 13:31
[2016-11-04 13:37] LABS: BACTERIA, URINE RARE /hpf; BLOOD, URINE MOD (NEG); COMMENT (UR) CULT NOT INDICATED; CULTURE IF INDICATED CULT NOT INDICATED; GLUCOSE,URINE NEG (NEG); HYALINE CAST, URINE 3 /lpf (RARE); KETONE, URINE NEG (NEG); MUCUS URINE FEW /lpf (OCC); NITRITE,URINE NEG (NEG); PH, URINE 5.5 (5.0-8.5); SQUAMOUS EPITHELIAL CELL URINE <1 /hpf (0-5); URINE COLOR YELLOW (YELLW/STRAW)
[2016-11-04] MEDS ORDERED: DOCU100S PO (17:39)
[2016-11-04] MEDS ORDERED: ALPR0.5T3 PO (17:39)
[2016-11-04] MEDS ORDERED: PANT40P IV PUSH (17:39)
[2016-11-04] MEDS ORDERED: SENN8.8S7 PEG (17:39)
[2016-11-04] MEDS ORDERED: CEFE2INJ2 IV (17:39)
[2016-11-04] MEDS ORDERED: SERO100T PO (17:39)
[2016-11-04] MEDS ORDERED: HYDR100P IV PUSH (17:39)
[2016-11-04] MEDS ORDERED: [UNRECOGNIZED DRUG - CODE] IV (17:39)
[2016-11-05] VITALS (12 sets, daily range): BP systolic 97–108; BP diastolic 45–51; PULSE 91–108; RESP 15–21; TEMP 98–98.6; O2SAT 100
[2016-11-05] MEDS: OXACILLIN INJ 2 GM in SODIUM CHLORIDE 0.9% INJ 100 ML IV SCH ×7 (00:24→22:52)
[2016-11-05] MEDS: POTASSIUM CHLOR 40 MEQ PREMIX 100 ML IV PRN ×2 (00:30→03:01)
[2016-11-05] MEDS: PROPOFOL 1000 MG/100 ML INJ 100 ML IV SCH ×5 (00:37→22:07)
[2016-11-05 02:37] LABS: HEMATOCRIT 21.1 % (39.0-51.0); MEAN CELL VOLUME 86.8 FL (80.0-100.0); MEAN CORPUSCULAR HEMOGLOBIN 28.6 PG (27.0-34.0); MEAN CORPUSCULAR HGB CONC 32.9 % (32.0-36.0); PLATELET COUNT 217 TH/MM3 (150-450); RED BLOOD COUNT 2.44 MIL/MM3 (4.50-5.90); RED CELL DISTRIBUTION WIDTH 15.3 % (11.6-17.2); REVIEW FLAG FINAL; WHITE BLOOD COUNT 9.2 TH/MM3 (4.0-11.0)
[2016-11-05 02:55] LABS: POTASSIUM 3.4 MEQ/L (3.5-5.1)
[2016-11-05] MEDS: oxyCODONE HCL ORAL CONC 20 MG/ML SYRINGE PO SCH ×6 (03:00→22:52)
[2016-11-05] MEDS: RESP: ALBUTEROL 2.5 MG/IPRATROPIUM 0.5 MG NEB (SCH) INH ×4 (03:27→21:51)
[2016-11-05] MEDS: CHLORHEXIDINE GLUCONATE 2 % 1 PACK (2 CLOTHS) TOP SCH (03:56)
[2016-11-05] MEDS: BUMETANIDE INJ 1 MG/4 ML VIAL IV PUSH SCH ×3 (04:35→19:37)
[2016-11-05] MEDS: INSULIN NovoLIN REGULAR SUPPLEMENTAL SCALE SQ SCH ×4 (04:47→23:31)
[2016-11-05] MEDS: CHLORHEXIDINE 0.12% (ORAL KIT) 15 ML CUP MT SCH ×2 (09:35→19:38)
--- NOTE | 2016-11-05 10:47 | PD.CONS ---
Consult Service Palliative Care Consult Requested By Dr Dominguez . Primary Care Physician No Primary Care Physician Reason for Consultation a. To assist with evaluation and management of symptoms including: dyspnea, agitation, pain, encephalopathy , malnutrition b. To assist medical decision maker(s) with: better understanding of current medical conditions; weighing benefits/burdens of medical treatment options; making medical treatment decisions. HPI History of Present Illness 26-year-old patient was re-admitted/transferred back to [facility] in 11/03 from [facility], for ongoing management of endocarditis , aortic valve vegetation. He was transferred to [facility] last week for second opinion regarding and cardiac thoracic surgery for aortic valve replacement. He was evaluated there by their infectious disease, neurology, they deemed him not to be a surgical candidate and thus he was transferred back to [facility]. He has remained stable without changes to his clinical status. Remains intubated, encephalopathic. * Critical care notes discussion with family regarding overall poor prognosis given severe aortic insufficiency patient not likely to survive without a valve however due to critical illness is not a good candidate for surgical intervention which is also high-risk for . Plan to continue to maximize medical management; to attempt to optimize him from a medical standpoint. Concern that he will not be able to stay out of heart failure. Intensivists discussed at length with family, agreed for additional 2 weeks to attempt medical optimization. Family agreed to DNR. It was agreed that if i at the end of the 2 weeks patient is not clinically improved or worsened they would transition to comfort focused treatment only, as to not prolong patient's suffering. * Palliative care was reconsulted to assist with support to the family, continue with clarification of goals of treatment. BC from 10/04 NG x24 hr. Urine cult ordered/pending. ID following, cont Oxacillin.WBC 9.2. Tmaxc 100.8. Geodon has been added for agitation. +wound consult pending for sacrum wound.Nursing reports cont to move all 4 extremities has not followed commands for her. Discussed with Dr. Dominguez critical care, family has been investigating possible transfer out of area to additional facility for further evaluation and possible valve replacement, thus far has not been accepted. Pt seen in room no visitors present, nsg to notify me when mother or father arrives, indicate mom was in early today. Pt sedated, appears comfortable on mech vent. +fentanyl 250mcgs/hr, diprivan 50 mcg/kg/min. Did not lighten for neuro exam due to hx agitation. No responsive to my exam. Following exam call to sister Anay, as per prior interactions she requests daily updates as she assists/supports mom & dad in decision making. D/w critical care Dr Dominguez, primary RN. patient is known to palliative care service from prior admission during September, additional HPI as per palliative care consult 10/03/16: He initially presented via EMS 09/30/16 for altered mental status. He apparently been last seen normal by his landlord 2 days prior. Patient apparently presented to the ED 2 days prior for diagnosis of allergic reaction, at that time reporting low-grade fever and congestion. He at that time reported being seen 10 days prior by another physician and had been prescribed antibiotics for a fever. He then developed a red rash and peeling on his hands and feet, complains of generalized weakness and lightheadedness at that presentation. At that time he was prescribed prednisone and to follow-up with local provider. On day of presentation landlord found patient altered and notified EMS. Patient lethargic at presentation and unable to provide additional information. ED record notes family members were called, patient reported to have a rash on his hands and feet for the past 2 weeks and had been seen by a local physician. Family also reporting patient with a history of substance abuse, recently in rehabilitation, last rehabilitation a year ago. * ED course: Patient obtunded at arrival. Lactic acid 3.7, troponin 11.9, alkaline phosphatase 175 area total CK 372. BUN 54, creatinine 1.69, GFR 49. Glucose 116. Salicylate and acetaminophen levels normal. Urine drug screen positive for opiates, amphetamine (on ADDERALL FOR ADHD). Alcohol negative. He was intubated sedated. CXR with no acute process identified.Head CT= significant areas of infarction in the right frontal, temporal, and cerebellar regions as well as a small area of subarachnoid hemorrhage in the superior right parietal region. Patient has early 3 mm of midline shift as well as effacement on the right. * Echo: "hyperdynamic left ventricular function and what appears to be aortic valve vegetations and I measured to be approximally 0.9 x 8.8 cm. This is associated with what appears to be severe aortic regurgitation. There is no pericardial effusion. Right ventricular function is preserved." ID, neurosurgery consulted. Cultures pending. * Infectious disease: Initial cultures sputum :gram-positive cocci pairs and clusters, blood culture gram-positive cocci. CXR worsening. Patient continued on vancomycin, Rocephin, following cultures. * Neurosurgery: Patient with multiple acute septic CVAs, cerebral edema, small subarachnoid hemorrhage, midline shift, metabolic encephalopathy. Follow-up CT , repeat CT for any changes in neuro status. Continue 3% saline, keep sodium elevated ADDITIONAL OUT PT HX PER DOCUMENTS/ RXs PROVIDED BY FAMILY: * EKG, lower spine x-rays per Dr. Prather 07/09/16 * 09/07/16 RX ibuprofen TO replace meloxicam for joint pain, + Adderall 30 mg daily ([facility] pharmacy) * 09/13/16 RX omeprazole, clindamycin 150 mg 4 tablets twice a day, acyclovir 200 mg 1 by mouth 5 times a day [address] Herrera ([facility] pharmacy) * 09/14/16- RX prednisone Dr. Prather, doxycycline 100 mg 1 by mouth every 12 hours; family reports diagnosed with a "viral illness 09/17" ([facility] pharmacy) * 09/[address] [facility] [address] Bj Luis Tylenol 3 quantity 20, acyclovir 200 mg 1 by mouth 5 times a day 10 days * s/p tracheostomy, PEG tube week of 10/15/16 * During clinical course through September patient was some neurological improvement at some point weaning off sedation following commands, localizing, arousable though with ongoing episodes of agitation requiring various sedatives including Precedex, fentanyl, Diprivan. * Follow-up CT identified small brain hemorrhage; at that point patient was not a candidate for cardiac surgical intervention. CTS evaluated and noted patient would require at least 4 weeks on antibiotics, and at least 6 weeks out from brain hemorrhage before surgical intervention could be considered (follow-up CT brain stable) * Repeat echo again noted aortic vegetation, with possible perforation of aortic valve leaflets; CVS again reconsulted to consider surgery patient continues to have episodes of pulmonary edema felt to be secondary to severe aortic valve insufficiency. Concern that without surgical intervention patient may not tolerate ventilator weaning due to cardiac status. During periods of sedation weaning patient is following commands. At one point off of mechanical vent tolerating T piece for couple of days at a time though required ventilation again due to pulmonary edema, hypoxic respiratory failure. CVS reevaluation determines not a good surgical candidate, he was evaluated by [facility], subsequently declined. [facility] excepted for evaluation and possible valve replacement. * Was transferred to [facility] 10/31/16. Function/Cognitive Trajectory Prior to September hospitalization independent, lived alone no cognitive or functional deficits. . Past Family Social History Coded Allergies: Hydrocodone (Verified Allergy, Unknown, Nausea/Vomiting, 10/04/16) Mother called Dentist to verify Sulfa (Verified Allergy, Unknown, 09/30/16) Toradol (Verified Allergy, Unknown, 09/30/16) Past Medical History ADHD History of substance abuse, post rehabilitation 1-2yr ago Degenerative disc disease . Past Surgical History oral surgeries in past year . Reported Medications home Meds Prior to SEPTEMBER admission: Prednisone 20 Mg Tab 40 Mg PO DAILY Take 40 mg (2 tablets) daily for 5 days Ibuprofen 600 Mg Tab 600 Mg PO Q6H PRN Meclizine (Meclizine HCl) 25 Mg Chew 25 Mg CHEW DIRECTED PRN Acyclovir 200 Mg Cap 200 Mg PO 5 TIMES A DAY Tylenol-Codeine #3 (Acetaminophen-Codeine) 300-30 mg Tab 1 Tab PO Q4H PRN . Current Medications Medications (Trade) Dose Ordered Sig/Beena Route Start Time Stop Time Status Last Admin Fentanyl Citrate 250 ml @ 0 mls/hr TITRATE IV 11/03/16 10:30 11/04/16 18:52 (Diprivan 1000 Mg/100ml Inj) 100 ml @ 0 mls/hr TITRATE IV 11/03/16 10:30 11/05/16 05:46 Magnesium Oxide 800 mg 800 mg UNSCH PRN PO 11/03/16 10:30 Magnesium Sulfate 4 gm/Sodium Chloride 100 ml @ 50 mls/hr UNSCH PRN IV 11/03/16 10:30 Magnesium Sulfate 2 gm/Sodium Chloride 100 ml @ 50 mls/hr UNSCH PRN IV 11/03/16 10:30 Potassium Chloride 100 ml @ 50 mls/hr Q2H PRN IV 11/03/16 10:30 Potassium Chloride 100 ml @ 50 mls/hr Q2H PRN IV 11/03/16 10:30 Potassium Chloride 100 ml @ 50 mls/hr Q2H PRN IV 11/03/16 10:30 11/05/16 03:01 (KCl 40 Meq Premix Inj) 100 ml @ 25 mls/hr UNSCH PRN IV 11/03/16 10:30 (K-Phos) 2,000 mg Q4H PRN PO 11/03/16 10:30 Potassium Phosphate 2000 mg 2,000 mg UNSCH PRN PO/TUBE 11/03/16 10:30 Potassium Phosphate 30 mmol/ Sodium Chloride 260 ml @ 42 mls/hr UNSCH PRN IV 11/03/16 10:30 (Sodium Phosphate Inj/NS 250 ml Inj) 250 ml @ 42 mls/hr UNSCH PRN IV 11/03/16 10:30 (Peridex 0.12% Liq) 15 ml BID@08,20 MT 11/03/16 20:00 11/05/16 09:35 (D50w (Vial) Inj) 25 ml UNSCH PRN IV PUSH 11/03/16 10:30 (NovoLIN R SUPPLEMENTAL SCALE) 1 Q6HR SQ 11/03/16 12:00 (Tylenol) 650 mg Q6H PRN PO 11/03/16 10:30 (Zofran Inj) 4 mg Q6H PRN IV 11/03/16 10:30 Miscellaneous Information 1 Q361D XX 11/03/16 10:30 11/03/16 10:30 (Chlorhexidine 2% Cloth) 3 pack Taper DAILY@04 TOP 11/04/16 04:00 10/31/17 03:59 11/05/16 03:56 (Chlorhexidine 2% Cloth) 3 pack UNSCH PRN TOP 11/03/16 10:30 (Bumex Inj) 2 mg Q8H IV PUSH 11/03/16 19:15 11/05/16 04:35 (Roxicodone Intensol Liq) 10 mg Q4H PO 11/04/16 11:00 11/05/16 05:46 Ziprasidone 10 mg 10 mg Q12H IM 11/04/16 11:00 11/04/16 22:13 (Prostaphlin Inj/ NS Inj) 100 ml @ 200 mls/hr Q4H IV 11/04/16 12:00 11/05/16 09:34 (Diamox Inj) 500 mg Q8H IV PUSH 11/04/16 18:00 11/05/16 10:01 11/05/16 09:35 Family History history of various cancers paternal, paternal aunt with aneurysm, hx ME maternal GF . Substance Use Tobacco:not current smoker intermittent occasional smoking since Alcohol: family informs no ETOH Prescription med abuse:history of prior pill abuse, post rehabilitation several x Illicits:prior drug /pill/marijuana/ IVD abuse post rehabilitation 1-2 yr ago, none in past year . Psychosocial History originally from [place], lived in [place] since . HS education. Was incarcerated and then in drug rehabilitation in [facility]. 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 Has 1 sister Elizabeth (Anay) ,lives in [place], mother lives in [place]. Father (parents ) lived in [place] with support from family there. Supported by local friends, coworkers, apartment landlord. . Spiritual/Cultural Factors believes in God, no particular affiliation. would want ongoing baker head support . Living Will: Never completed Health Care Surrogate: Never completed Durable Power of Rehabilitation Engineer: Never completed Ethical and Legal Issues Patient is not able to participate in decision-making due to clinical condition. He is not . Per [place] statutes his parents would be legal decision makers, mother is serving as primary supported by his sister and father. Mother has POA paperwork, however this does NOT include medical decision making. . Physical Exam Vital Signs Date Time Temp Pulse Resp B/P Pulse Ox O2 Delivery O2 Flow Rate FiO2 11/05/16 07:30 100 40 11/05/16 04:01 100 40 11/05/16 04:00 98 11/05/16 04:00 40 11/05/16 04:00 98.0 98 15 104/51 100 11/05/16 01:22 100 40 11/05/16 00:00 40 11/05/16 00:00 98.3 96 21 108/51 100 11/05/16 00:00 96 11/04/16 21:58 97 40 11/04/16 20:00 103 11/04/16 20:00 99.4 103 21 101/51 97 11/04/16 20:00 40 11/04/16 19:59 96 40 11/04/16 19:00 97 Mechanical Ventilator 40 11/04/16 16:00 40 11/04/16 16:00 107 11/04/16 16:00 98.1 98 25 107/50 100 11/04/16 15:55 99 40 11/04/16 12:20 100 40 11/04/16 12:00 40 11/04/16 12:00 94 11/04/16 12:00 98.7 99 21 98/45 98 11/04/16 11/05/16 19:00 07:00 Intake Total 1068 ml 1277 ml Output Total 2000 ml 1175 ml Balance -932 ml 102 ml Intake IV Total 574 ml 674 ml Tube Feeding 494 ml 603 ml Output Urine Total 2000 ml 1175 ml Stool Total 0 ml Exam CONSTITUTIONAL/GENERAL: This is an adequately nourished patient, [facility] TUBES/LINES/DRAINS: Left subclavian central line, Jerez catheter, PEG tube, rectal drain, SCDs SKIN: No jaundice, rashes, or lesions.No wounds seen anteriorly. Reported stage III wound to sacrum not visualized. Skin temperature warm, dry. HEAD: Atraumatic. Normocephalic. EYES: Keeps eyes closed. Pupils 3 mm, slight reaction to light. No scleral icterus. No injection or drainage. Fundi not examined. ENT: Nose without bleeding or purulent drainage. Mouth closed, no visible exudates or drainage. NECK: Trachea, tracheostomy midline. Supple, nontender. CARDIOVASCULAR: Regular rate and rhythm without murmurs. Peripheral pulses symmetric. RESPIRATORY/CHEST: Symmetric, unlabored respirations via tracheostomy to mechanical vent. Some scattered rhonchi throughout. Breath sounds equal bilaterally. GASTROINTESTINAL: Abdomen soft, flat, no apparent tenderness though limited assessment, nondistended. No hepato-splenomegaly, or palpable masses. Bowel sounds present. Tube feeding in infusing via PEG. + Loose brown stool present in rectal drain. GENITOURINARY: Without palpable bladder distension. Jerez catheter in place. MUSCULOSKELETAL: Extremities without clubbing, cyanosis, or edema. No joint effusion noted. No mottling or clubbing. NEUROLOGICAL: Sedated on mechanical vent. Nonresponsive to my exam. No eye opening. Appears comfortable. PSYCHIATRIC: No obvious anxiety/depression--limited assessment due to clinical condition, sedatives. . Diagnostic Tests Laboratory Laboratory Tests Test 11/03/16 11/04/16 11/04/16 11/04/16 12:20 04:33 13:13 21:15 Nasal Screen MRSA (PCR) MRSA NOT DETECTED (NOT DETECT) White Blood Count 11.6 TH/MM3 (4.0-11.0) Red Blood Count 2.51 MIL/MM3 (4.50-5.90) Hemoglobin 7.2 GM/DL (13.0-17.0) Hematocrit 21.9 % (39.0-51.0) Mean Corpuscular Volume 87.0 FL (80.0-100.0) Mean Corpuscular Hemoglobin 28.8 PG (27.0-34.0) Mean Corpuscular Hemoglobin 33.1 % Concent (32.0-36.0) Red Cell Distribution Width 15.2 % (11.6-17.2) Platelet Count 208 TH/MM3 (150-450) Mean Platelet Volume 9.0 FL (7.0-11.0) Sodium Level 144 MEQ/L (136-145) Potassium Level 2.4 MEQ/L 3.0 MEQ/L (3.5-5.1) (3.5-5.1) Chloride Level 106 MEQ/L (98-107) Carbon Dioxide Level 30.4 MEQ/L (21.0-32.0) Anion Gap 8 MEQ/L (5-15) Blood Urea Nitrogen 44 MG/DL (7-18) Creatinine 1.08 MG/DL (0.60-1.30) Estimat Glomerular Filtration 83 ML/MIN (>89) Rate Random Glucose 124 MG/DL (74-106) Calcium Level 8.8 MG/DL (8.5-10.1) Urine Color YELLOW (YELLW/STRAW) Urine Turbidity CLEAR (CLEAR) Urine pH 5.5 (5.0-8.5) Urine Specific [place] 1.014 (1.002-1.035) Urine Protein 30 mg/dL (NEG-TRACE) Urine Glucose (UA) NEG mg/dL (NEG) Urine Ketones NEG mg/dL (NEG) Urine Occult Blood MOD (NEG) Urine Nitrite NEG (NEG) Urine Bilirubin NEG (NEG) Urine Urobilinogen LESS THAN 2.0 MG/DL (LESS THAN 2.0) Urine Leukocyte Esterase NEG (NEG) Urine RBC 126 /hpf (0-3) Urine WBC 1 /hpf (0-5) Urine Squamous Epithelial <1 /hpf (0-5) Cells Urine Bacteria RARE /hpf (NONE) Urine Hyaline Casts 3 /lpf (RARE) Urine Mucus FEW /lpf (OCC) Microscopic Urinalysis Comment CULT NOT INDICATED Test 11/05/16 02:25 White Blood Count 9.2 TH/MM3 (4.0-11.0) Red Blood Count 2.44 MIL/MM3 (4.50-5.90) Hemoglobin 7.0 GM/DL (13.0-17.0) Hematocrit 21.1 % (39.0-51.0) Mean Corpuscular Volume 86.8 FL (80.0-100.0) Mean Corpuscular Hemoglobin 28.6 PG (27.0-34.0) Mean Corpuscular Hemoglobin 32.9 % Concent (32.0-36.0) Red Cell Distribution Width 15.3 % (11.6-17.2) Platelet Count 217 TH/MM3 (150-450) Mean Platelet Volume 8.4 FL (7.0-11.0) Sodium Level 145 MEQ/L (136-145) Potassium Level 3.4 MEQ/L (3.5-5.1) Chloride Level 105 MEQ/L (98-107) Carbon Dioxide Level 32.0 MEQ/L (21.0-32.0) Anion Gap 8 MEQ/L (5-15) Blood Urea Nitrogen 42 MG/DL (7-18) Creatinine 1.03 MG/DL (0.60-1.30) Estimat Glomerular Filtration 87 ML/MIN (>89) Rate Random Glucose 119 MG/DL (74-106) Calcium Level 8.4 MG/DL (8.5-10.1) Result Diagram: 11/05/16 0225 11/05/16 0225 Microbiology Microbiology Date/Time Procedure Status Source Growth 11/04/16 12:45 Aerobic Blood Culture Received Blood Line Pending 11/04/16 12:45 Anaerobic Blood Culture Received Blood Line Pending 11/04/16 12:55 Aerobic Blood Culture Received Blood Peripheral Pending 11/04/16 12:55 Anaerobic Blood Culture Received Blood Peripheral Pending Imaging Last Impressions Chest X-Ray 11/03/16 0000 Signed Impressions: Service Date/Time: Thursday, November 03, 2016 10:48 - CONCLUSION: Improving aeration of the lung preciado compared to the prior study. Omari Moya MD Procedures racheostomy, PEG tube . Patient/Family Conference Present at Family Conference: Sister (phone), mother Family Conference Location: Telephone Issues Discussed: Discussion with sister Anay via telephone. Via telephone (nursing to notify me when patient mother arrives today) Discussion included: * Brief review of prolonged hospital course thus far, underlying conditions, overall prognosis * Current treatments in place, declined for further treatments by 2 cardiovascular services at other facilities * Goals of treatment-family understands overall poor prognosis, they wish to continue maximize medical treatments (short of CPR) with the hopes of patient condition may possibly improve enough to be considered for valve replacement * Questions answered to the best of my ability * Palliative care contact information provided; she would like to continue to receive daily updates to assist her in supporting pt mother, father with decision making. *Nursing to notify me when patient's mother arrives. ------ mother arrived later, met with her outside of room discussion included the above bulleted items. Mother endorses she continues to pray for pt and is hoping for a miracle. She is also looking at various other facilities for possible transfer /evaluation for valve, she tells me currently looking into/ contacting hospital associated with [facility] ([facility]), she is hoping to find a surgeon willing to attempt a valve on her son. . Assessment and Plan Disease Oriented Problem List: (1) Aortic valve endocarditis (2) CVA (cerebral vascular accident) Comment: multiple CVAs, Septic Intracerebral emboli (3) Cerebral septic emboli (4) Aortic valve insufficiency Comment: severe (5) CHF (congestive heart failure) Comment: secondary to valvulopathy . (6) Acute on chronic respiratory failure with hypoxia (7) Encephalopathy (8) Intracranial hemorrhage Comment: Hemorrhagic conversion of prior CVAs (9) Previous IVDU (10) Severe protein-calorie malnutrition Symptom Scale: (1) Dyspnea (2) Encephalopathy (3) Agitation (4) Pain (5) Malnutrition Pertinent Non-Medical Issues Psychosocial:originally from [place], lived in [place] since . HS education. Was incarcerated and then in drug rehabilitation in [facility]. 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 Has 1 sister Elizabeth (Anay) ,lives in [place], mother lives in [place]. Father (parents ) lived in [place] with support from family there. Supported by local friends, coworkers, apartment landlord. Spiritual:believes in God, no particular affiliation. would want ongoing baker head support. Legal:Patient is not able to participate in decision-making due to clinical condition. He is not . Per [place] statutes his parents would be legal decision makers, mother is serving as primary supported by his sister and father. Mother has POA paperwork, however this does NOT include medical decision making. Ethical issues impacting care: Important Contacts mother Felicita Roberts [phone] sister Elizabeth Rios [phone] father Pradeep Rios [phone] . Prognosis This unfortunate 26-year-old man initially presented to the ED in September with altered mental status, he has been found to have mixed septic/cardiogenic shock with multiple areas of septic emboli CVA secondary to aortic valve endocarditis. He then developed a small ICH. He has had prolonged ICU course, with episodes of agitation, pulmonary edema and hypoxic respiratory failure, 2/ 2 to severe aortic valve insufficiency. + Aortic valve leaflet perforations. CVS evaluated here for possible valve replacement, patient not felt to be good surgical candidate. Was declined by [facility]. Was transferred and evaluated by [facility] at [facility] last week, also declined due to not felt to be good surgical candidate, transferred back to [facility] 11/03/16. Remains in critical condition, medical treatments maximized. Patient with very poor chance of survival without a valve replacement, and is currently not a candidate for a valve due to poor clinical condition. Not felt likely to improve enough to obtain valve replacement. High risk for ongoing clinical complications and . . Code Status: No Code Plan * Legal decision maker: Patient is not able to participate in decision-making due to clinical condition. He is not . Per [place] statutes his parents would be legal decision makers, mother is serving as primary supported by his sister and father. Mother has POA paperwork however this does not include medical decision-making. * Goals: During prior palliative consultation and multiple interactions palliative has met w pt mother, father, sister at length. Patient sister appears to have a reasonable understanding of conditions, prognosis. Patient mother , father appear to have a very simple understanding of conditions and prognosis. At that time family's goals were aggressive, Patient's mother is hoping for a miracle and wants to continue whatever measures available to help patient recover. 11/05/16: Family wishes to continue maximize medical treatments with the hopes of patient condition may possibly improve enough to be considered for valve replacement; they understand he is high risk for not improving, further complications, clinical deterioration. Mother endorses she continues to pray for pt and is hoping for a miracle. She is also looking at various other facilities for possible transfer /evaluation for valve, she is currently looking into/contacting hospital associated with [facility] ([facility]), she is hoping to find a surgeon willing to attempt a valve on her son. * CODE STATUS: DNR * SYMPTOMS: --dyspnea- intubated for AMS. remains on [facility] vent; status post tracheostomy. has had difficulty weaning off of vent/staying off of vent due to agitation, pulmonary edema 2/2 severe aortic valve insufficiency -- agitation- hx substance abuse; hx ADD, on adderall. + Embolic CVA, +new hemorrhage 6/6 to the right temporal lobe (follow-up CT imaging stable) Has had periods of restlessness, agitation ongoing during prolonged hospital course. Has been on various sedatives including Precedex, Diprivan, fentanyl. Has at times when lightened and able to follow commands, moved all 4 extremities. -- encephalopathy- multifactorial-- +sepsis, embolic CVA, +new hemorrhage 6/ 6 to the right temporal lobe (follow-up CT imaging stable) hx substance abuse, EEG neg seizure . -- malnutrition -- s/p PEG. Ongoing TF. albumin 3.1 --Pain: Potential sources would include: History of degenerative disc disease ; has had prolonged bedbound status during > 1 month hospitalization, + stage III wounds to coccyx. * Palliative care will continue to follow during hospital course as condition evolves, to assist patient/decision-maker with understanding of medical conditions, weighing benefits/burdens of treatment options, for clarification of goals of treatment. Additionally will assist with any symptoms of palliative concern Time Spent Total Floor Time (mins): 60 Thank you for the opportunity to participate in the care of Mr. Rios. Attestation To help prompt me to consider important information that might be impacting today's encounter and assessment, information from prior notes written by myself or my colleagues may have been "brought forward" into today's note. My signature on this note, however, is an attestation that I personally performed the exam, history, and/or decision-making noted today, and, unless otherwise indicated, the interactions with patient, family, and staff as well as the review of records all occurred today. I also attest that the listed assessment and stated plan reflect my best clinical judgment today based on the combination of historical information, prior notes, and today's exam/ interactions. When time spent is documented, it refers only to time spent today by the signer, or if indicated, combined time spent today by collaborating physician/nurse practitioner. Sandy Liu Nov 05, 2016 10:47
[2016-11-05] MEDS: ZIPRASIDONE MESYLATE 20 MG VIAL IM SCH ×2 (11:31→22:52)
--- NOTE | 2016-11-05 16:13 | HHI.IDPN ---
Note Infectious Disease Note ID follow up Patient known to me. Notes reviewed. Patient is restless in bed. He is afebrile. has low grade fever. Notes from [facility] noted. 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 He was transferred to [facility] October 31 for cardiothoracic surgical evaluation. He was felt not to be a surgical candidate. Post tracheostomy and PEG. Allergies: Coded Allergies: Hydrocodone (Verified Allergy, Unknown, Nausea/Vomiting, 10/04/16) Mother called Dentist to verify Sulfa (Verified Allergy, Unknown, 09/30/16) Toradol (Verified Allergy, Unknown, 09/30/16) Past Medical History Substance abuse ADHD Degenerative disc disease Past Surgical History Tracheostomy Current Medications Medications (Trade) Dose Ordered Sig/Beena Route PRN Reason Start Time Stop Time Status Last Admin Dose Admin Fentanyl Citrate 250 ml @ 0 mls/hr TITRATE IV 11/03/16 10:30 11/04/16 18:52 Propofol (Diprivan 1000 Mg/100ml Inj) 100 ml @ 0 mls/hr TITRATE IV 11/03/16 10:30 11/05/16 11:32 Magnesium Oxide 800 mg 800 mg UNSCH PRN PO For Magnesium 1.2 - 1.6 mg/dL 11/03/16 10:30 Magnesium Sulfate 4 gm/Sodium Chloride 100 ml @ 50 mls/hr UNSCH PRN IV For Magnesium 0.9 - 1.1 mg/dL 11/03/16 10:30 Magnesium Sulfate 2 gm/Sodium Chloride 100 ml @ 50 mls/hr UNSCH PRN IV For Magnesium 1.2 - 1.6 mg/dL 11/03/16 10:30 Potassium Chloride 100 ml @ 50 mls/hr Q2H PRN IV For Potassium 2.8 - 3.2 mEq/L 11/03/16 10:30 Potassium Chloride 100 ml @ 50 mls/hr Q2H PRN IV For Potassium 3.3 - 3.5 mEq/L 11/03/16 10:30 Potassium Chloride 100 ml @ 50 mls/hr Q2H PRN IV For Potassium 2.8 - 3.2 mEq/L 11/03/16 10:30 11/05/16 03:01 Potassium Chloride (KCl 40 Meq Premix Inj) 100 ml @ 25 mls/hr UNSCH PRN IV For Potassium 3.3 - 3.5 mEq/L 11/03/16 10:30 Potassium Phosphate (K-Phos) 2,000 mg Q4H PRN PO For Phosphorus < 2.5 mg/dL 11/03/16 10:30 Potassium Phosphate 2000 mg 2,000 mg UNSCH PRN PO/TUBE SEE LABEL COMMENTS 11/03/16 10:30 Potassium Phosphate 30 mmol/ Sodium Chloride 260 ml @ 42 mls/hr UNSCH PRN IV SEE LABEL COMMENTS 11/03/16 10:30 Sodium Phosphate/ Sodium Chloride (Sodium Phosphate Inj/NS 250 ml Inj) 250 ml @ 42 mls/hr UNSCH PRN IV For Phosphorus < 2.5 mg/dL 11/03/16 10:30 Chlorhexidine Gluconate (Peridex 0.12% Liq) 15 ml BID@08,20 MT 11/03/16 20:00 11/05/16 09:35 Dextrose (D50w (Vial) Inj) 25 ml UNSCH PRN IV PUSH HYPOGLYCEMIA-SEE COMMENTS 11/03/16 10:30 Insulin Human Regular (NovoLIN R SUPPLEMENTAL SCALE) 1 Q6HR SQ 11/03/16 12:00 Acetaminophen (Tylenol) 650 mg Q6H PRN PO PAIN 1-10 AND/OR FEVER >101F 11/03/16 10:30 Ondansetron HCl (Zofran Inj) 4 mg Q6H PRN IV NAUSEA OR VOMITING 11/03/16 10:30 Miscellaneous Information 1 Q361D XX 11/03/16 10:30 11/03/16 10:30 Chlorhexidine Gluconate (Chlorhexidine 2% Cloth) 3 pack Taper DAILY@04 TOP 11/04/16 04:00 10/31/17 03:59 11/05/16 03:56 Chlorhexidine Gluconate (Chlorhexidine 2% Cloth) 3 pack UNSCH PRN TOP HYGIENIC CARE 11/03/16 10:30 Bumetanide (Bumex Inj) 2 mg Q8H IV PUSH 11/03/16 19:15 11/05/16 11:31 Oxycodone HCl (Roxicodone Intensol Liq) 10 mg Q4H PO 11/04/16 11:00 11/05/16 15:58 Ziprasidone 10 mg 10 mg Q12H IM 11/04/16 11:00 11/05/16 11:31 Oxacillin Sodium/ Sodium Chloride (Prostaphlin Inj/ NS Inj) 100 ml @ 200 mls/hr Q4H IV 11/04/16 12:00 11/05/16 15:58 Social History Record indicated no smoking Alcohol use History of substance abuse, and he was reportedly in the rehabilitation about a year ago Physical Exam Vital Signs Date Time Temp Pulse Resp B/P Pulse Ox O2 Delivery O2 Flow Rate FiO2 11/05/16 14:49 100 40 11/05/16 11:56 40 11/05/16 11:56 100 40 11/05/16 07:30 100 40 11/05/16 07:00 100 Mechanical Ventilator 40 11/05/16 04:01 100 40 11/05/16 04:00 98 11/05/16 04:00 40 11/05/16 04:00 98.0 98 15 104/51 100 11/05/16 01:22 100 40 11/05/16 00:00 40 11/05/16 00:00 98.3 96 21 108/51 100 11/05/16 00:00 96 11/04/16 21:58 97 40 11/04/16 20:00 103 11/04/16 20:00 99.4 103 21 101/51 97 11/04/16 20:00 40 11/04/16 19:59 96 40 11/04/16 19:00 97 Mechanical Ventilator 40 11/04/16 11/04/16 11/05/16 15:00 23:00 07:00 Intake Total 1068 ml 1277 ml Output Total 2000 ml 1175 ml Balance -932 ml 102 ml Intake IV Total 574 ml 674 ml Tube Feeding 494 ml 603 ml Output Urine Total 2000 ml 1175 ml Stool Total 0 ml Laboratory Tests Test 11/04/16 11/05/16 04:33 02:25 White Blood Count 11.6 TH/MM3 9.2 TH/MM3 Red Blood Count 2.51 MIL/MM3 2.44 MIL/MM3 Hemoglobin 7.2 GM/DL 7.0 GM/DL Hematocrit 21.9 % 21.1 % Mean Corpuscular Volume 87.0 FL 86.8 FL Mean Corpuscular Hemoglobin 28.8 PG 28.6 PG Mean Corpuscular Hemoglobin 33.1 % 32.9 % Concent Red Cell Distribution Width 15.2 % 15.3 % Platelet Count 208 TH/MM3 217 TH/MM3 Mean Platelet Volume 9.0 FL 8.4 FL Laboratory Tests Test 11/04/16 11/04/16 11/05/16 11/05/16 04:33 21:15 02:25 09:30 Sodium Level 144 MEQ/L 145 MEQ/L Potassium Level 2.4 MEQ/L 3.0 MEQ/L 3.4 MEQ/L 3.6 MEQ/L Chloride Level 106 MEQ/L 105 MEQ/L Carbon Dioxide Level 30.4 MEQ/L 32.0 MEQ/L Anion Gap 8 MEQ/L 8 MEQ/L Blood Urea Nitrogen 44 MG/DL 42 MG/DL Creatinine 1.08 MG/DL 1.03 MG/DL Estimat Glomerular Filtration 83 ML/MIN 87 ML/MIN Rate Random Glucose 124 MG/DL 119 MG/DL Calcium Level 8.8 MG/DL 8.4 MG/DL Microbiology Date/Time Procedure Status Source Growth 11/04/16 12:45 Aerobic Blood Culture - Preliminary Resulted Blood Line NO GROWTH IN 1 DAY 11/04/16 12:45 Anaerobic Blood Culture - Preliminary Resulted Blood Line NO GROWTH IN 1 DAY 11/04/16 12:55 Aerobic Blood Culture - Preliminary Resulted Blood Peripheral NO GROWTH IN 1 DAY 11/04/16 12:55 Anaerobic Blood Culture - Preliminary Resulted Blood Peripheral NO GROWTH IN 1 DAY IMAGING: Chest X-Ray 11/03/16 0000 Signed Impressions: Service Date/Time: Thursday, November 03, 2016 10:48 - CONCLUSION: Improving aeration of the lung preciado compared to the prior study. Omari Moya MD GENERAL: Patient is in no acute distress. Restless. HEENT: EOMI, No icterus. No conjunctival erythema. NECK: Supple.No adenopathy. LUNGS: Bilateral rhonchi. CARDIAC: Regular rate and rhythm.(+) 4/6 DALILA LSB. ABDOMEN: Soft, non tender. soft. EXTREMITIES: No CCE. No embolic phenomena. SKIN: No rash. Laboratory Tests Test 11/03/16 11/04/16 12:20 04:33 Nasal Screen MRSA (PCR) MRSA NOT DETECTED White Blood Count 11.6 Red Blood Count 2.51 Hemoglobin 7.2 Hematocrit 21.9 Mean Corpuscular Volume 87.0 Mean Corpuscular Hemoglobin 28.8 Mean Corpuscular Hemoglobin 33.1 Concent Red Cell Distribution Width 15.2 Platelet Count 208 Mean Platelet Volume 9.0 Sodium Level 144 Potassium Level 2.4 Chloride Level 106 Carbon Dioxide Level 30.4 Anion Gap 8 Blood Urea Nitrogen 44 Creatinine 1.08 Estimat Glomerular Filtration 83 Rate Random Glucose 124 Calcium Level 8.8 Result Diagram: 11/04/16 0433 11/04/16 0433 Imaging RADIOLOGY STUDIES/FILMS REVIEWED Chest X-Ray 11/03/16 0000 Signed Impressions: Service Date/Time: Thursday, November 03, 2016 10:48 - CONCLUSION: Improving aeration of the lung preciado compared to the prior study. 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 Respiratory failure S/P trach Recent Enterobacter PNA Rx Cassandra in UC 10/30 Low grade temps, ?new nosocomial infection. RECOMMENDATION Follow blood cultures. Continue IV Oxacillin Monitor temps Monitor progress Nemesio Jackson MD Nov 05, 2016 16:13
--- NOTE | 2016-11-05 17:37 | HHI.CCPN ---
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 His course was complicated by persistent respiratory failure requiring tracheostomy, intracerebral abscess, and severe aortic insufficiency with at least 4 episodes of flash pulmonary edema and near fatal hypoxic respiratory failure. He was evaluated by 2 cardio thoracic surgeons at this institution and deemed not to be a surgical candidate. He was then transferred to [facility] for an outside opinion, where cardiac thoracic surgery at that facility along with infectious disease and neurology at that facility deemed him to be not a surgical candidate. He reports to [facility] in transfer back from [facility]. He remained stable without change and acute clinical status. He is still intubated and encephalopathic. Additional history is unobtainable from the patient. Subjective: 11/04: agitation persists. cr slightly better. no significant change. ID prefers to change back to oxacillin. another long family discussion today: family has found a facility in [place] they are interested in transferring him to for 3rd opinion. 11/05: Patient remains heavily sedated with propofol and fentanyl for agitation. Severe agitation causes him to go into flash pulmonary edema. On sedation lightening patient moves uncontrollably. Otherwise have been stable overnight Objective Vital Signs Date Time Temp Pulse Resp B/P Pulse Ox O2 Delivery O2 Flow Rate FiO2 11/05/16 16:00 98.4 108 15 97/45 100 11/05/16 14:49 40 11/05/16 07:00 Mechanical Ventilator Intake and Output 11/04/16 11/04/16 11/05/16 08:00 16:00 00:00 Intake Total 1068 ml 1277 ml Output Total 2000 ml 1175 ml Balance -932 ml 102 ml Result Diagram: 11/05/16 0225 11/05/16 0930 Objective Remarks GENERAL: Young male, lying in bed, encephalopathic, trached on a ventilator HEENT: Normocephalic. Atraumatic. Pupils equal, round, reactive, conjugate. Mucous membranes are moist NECK: Trachea is midline. There is no JVD. CHEST: Tracheostomy in place. Equal chest rise. Bilateral coarse rales. CARDIOVASCULAR: Tachycardic rate, regular rhythm. Sinus by telemetry. Early diastolic murmur heard in the left sternal border ABDOMEN: Soft, nontender, nondistended. No guarding. PEG tube in place. MUSCULOSKELETAL: Pulses 2+. No peripheral edema. NEUROLOGICAL: Opens eyes spontaneously. Does track intermittently with his eyes. Does not follow commands. Withdrawals 4, moves all extremities spontaneously. Left upper extremity weaker than others A/P Assessment and Plan Assessment: This is a 26-year-old male with infective aortic valve endocarditis , intracerebral septic emboli with intracerebral abscess and hemorrhagic conversion of infarctions, severe CHF exacerbation secondary to valvulopathy, severe persistent encephalopathy, chronic respiratory failure. He re-presents from [facility] for ongoing management. Based on his echo, along with the input from outside hospital consultants, I agree with their assessment that he is likely not a surgical candidate at this time. At this point, without surgery, he would certainly , and with surgery, likely given his multiple medical comorbidities, he may . Given that he is young, I think it is reasonable to give the patient and additional 2 weeks to see if we can medically optimize him from a neurologic and cardiovascular standpoint. Likely this will be unsuccessful given that without surgical repair, the patient will not be able to stay out of heart failure. Patient is DNR now, but continue our aggressive medical management for an additional 2 weeks. If at that time he is not clinically improved, I think that we have a responsibility to the patient to pursue comfort measures at that time. Plan: Infective Aortic Valve Endocarditis -- Abx per ID, Continue IV Oxacillin -- Blood culture 2 from 11/04/16 negative to date -- daily cbc Severe CHF exacerbation secondary to valvulopathy Severe aortic valve insufficiency -- bumex 2mg iv q8hr -- repeat ISABEL 11/03: severe AI. preserved EF. left pleural effusion Metabolic alkalosis -- diamox 500mg iv q8h completed Severe Hypokalemia -- aggressive electrolyte replacement Severe Encephalopathy Septic Intracerebral emboli Multiple CVAs Hemorrhagic conversion of prior CVAs -- continue to hold anticoagulation -- frequent neuro checks Agitated Delirium -- propofol, fentanyl for goal RASS -2 -- add Geodon 10mg IM q12h prn Acute pain associated with decubitus ulcer -- Oxycodone 10mg per tube q4h scheduled Acute on chronic hypoxic respiratory failure -- diuresis as above -- continue PRVC -- CPAP/PS as tolerated -- Wean fio2 for spo2 > 90% Acute protein calorie malnutrition- severe -- continue TF Dispo: -- remain in the ICU. remains critically ill. the family is welcome to pursue inter-facility transfer if they choose. Addendum: Patient pulled out PEG. RN placed new Jerez. STAT GI Consult requested Level 3 Mary Rodriguez MD Nov 05, 2016 17:37
--- NOTE | 2016-11-05 17:58 | RADRPT ---
EXAM DATE/TIME: 11/05/2016 17:34 [place] COMPARISON: CHEST SINGLE AP, November 03, 2016, 10:48. INDICATIONS : Respiratory disease MEDICAL HISTORY : Seizures. Cardiovascular disease SURGICAL HISTORY : None. ENCOUNTER: Subsequent ACUITY: 1 month PAIN SCORE: Non-responsive. LOCATION: Bilateral chest FINDINGS: Trach tube and central line are in good position. Diffuse interstitial and alveolar opacities persis t with increasing air bronchograms retrocardiac region on the left. The heart remains enlarged. CONCLUSION: Increasing air bronchograms retrocardiac region the left. Jair Coello MD FACR on November 05, 2016 at 17:55 Board Certified Radiologist. This report was verified electronically.
[2016-11-05] MEDS: fentaNYL DRIP 250 ML IV SCH (22:07)
[2016-11-06] VITALS (13 sets, daily range): BP systolic 101–115; BP diastolic 49–57; PULSE 94–114; RESP 15–17; TEMP 98.7–100.4; O2SAT 97–100
[2016-11-06] MEDS: RESP: ALBUTEROL 2.5 MG/IPRATROPIUM 0.5 MG NEB (SCH) INH ×4 (03:10→21:17)
[2016-11-06] MEDS: OXACILLIN INJ 2 GM in SODIUM CHLORIDE 0.9% INJ 100 ML IV SCH ×6 (03:24→22:57)
[2016-11-06] MEDS: BUMETANIDE INJ 1 MG/4 ML VIAL IV PUSH SCH ×3 (03:24→18:21)
[2016-11-06] MEDS: oxyCODONE HCL ORAL CONC 20 MG/ML SYRINGE PO SCH ×6 (03:25→22:57)
[2016-11-06] MEDS: CHLORHEXIDINE GLUCONATE 2 % 1 PACK (2 CLOTHS) TOP SCH (03:25)
[2016-11-06] MEDS: PROPOFOL 1000 MG/100 ML INJ 100 ML IV SCH ×4 (03:26→23:11)
[2016-11-06 03:55] LABS: AUTOMATED NEUTROPHIL # 8.9 TH/MM3 (1.8-7.7); BASOPHIL # 0.1 TH/MM3 (0-0.2); EOSINOPHIL # 0.5 TH/MM3 (0-0.4); EOSINOPHIL % 4.3 % (0.0-4.0); LYMPH % 10.6 % (9.0-44.0); LYMPHOCYTE # 1.2 TH/MM3 (1.0-4.8); MEAN CELL VOLUME 86.3 FL (80.0-100.0); MEAN CORPUSCULAR HEMOGLOBIN 28.9 PG (27.0-34.0); MEAN CORPUSCULAR HGB CONC 33.5 % (32.0-36.0); MONO % 3.8 % (0.0-8.0); NEUT % 80.3 % (16.0-70.0); PLATELET COUNT 212 TH/MM3 (150-450); RED BLOOD COUNT 2.32 MIL/MM3 (4.50-5.90); RED CELL DISTRIBUTION WIDTH 14.9 % (11.6-17.2); WHITE BLOOD COUNT 11.1 TH/MM3 (4.0-11.0)
[2016-11-06 04:13] LABS: HEMO FLAGS DIFF FINAL
[2016-11-06 04:20] LABS: ALT (GPT) 63 U/L (12-78); ANION GAP 6 MEQ/L (5-15); AST (GOT) 28 U/L (15-37); BLOOD UREA NITROGEN 40 MG/DL (7-18); CHLORIDE 108 MEQ/L (98-107); GLOMERULAR FILTRATION RATE 89 ML/MIN (>89); POTASSIUM 3.4 MEQ/L (3.5-5.1); SODIUM (NA) 146 MEQ/L (136-145)
[2016-11-06 04:21] LABS: ALKALINE PHOSPHATASE 69 U/L (45-117); TOTAL BILIRUBIN ADULT 0.4 MG/DL (0.2-1.0)
[2016-11-06] MEDS: INSULIN NovoLIN REGULAR SUPPLEMENTAL SCALE SQ SCH ×3 (05:07→16:58)
[2016-11-06] MEDS: POTASSIUM CHLOR 40 MEQ PREMIX 100 ML IV PRN (06:14)
[2016-11-06] MEDS: CHLORHEXIDINE 0.12% (ORAL KIT) 15 ML CUP MT SCH ×2 (08:00→20:06)
[2016-11-06] MEDS: fentaNYL DRIP 250 ML IV SCH ×2 (08:44→16:14)
[2016-11-06] MEDS: ZIPRASIDONE MESYLATE 20 MG VIAL IM SCH ×2 (10:22→17:31)
--- NOTE | 2016-11-06 10:31 | HHI.IDPN ---
Note Infectious Disease Note Patient continues to be restless. Awake. Moving all extremities. Not following commands. Heavily sedated. Fentanyl and versed. BP stable. Afebrile. On vent 40% FIO2. ISABEL 11/03 noted. Large vegetation on aortic valve. Post tracheostomy and PEG. Allergies: Coded Allergies: Hydrocodone (Verified Allergy, Unknown, Nausea/Vomiting, 10/04/16) Mother called Dentist to verify Sulfa (Verified Allergy, Unknown, 09/30/16) Toradol (Verified Allergy, Unknown, 09/30/16) Past Medical History Substance abuse ADHD Degenerative disc disease ANTIBIOTICS: Oxacillin. Physical Exam Vital Signs Date Time Temp Pulse Resp B/P Pulse Ox O2 Delivery O2 Flow Rate FiO2 11/06/16 08:27 100 40 11/06/16 08:15 99.7 98 15 101/49 100 11/06/16 08:00 99.7 106 16 107/53 100 11/06/16 08:00 40 11/06/16 08:00 99.7 106 16 107/53 100 11/06/16 08:00 106 11/06/16 07:00 100 Mechanical Ventilator 40 11/06/16 04:05 100 40 11/06/16 04:00 40 11/06/16 04:00 99.3 107 16 109/51 100 11/06/16 04:00 107 11/06/16 00:33 100 40 11/06/16 00:00 94 11/06/16 00:00 40 11/06/16 00:00 98.7 94 15 106/53 100 11/05/16 20:00 98 11/05/16 20:00 98.6 98 15 101/49 100 11/05/16 20:00 40 11/05/16 19:41 100 40 11/05/16 19:00 100 Mechanical Ventilator 40 11/05/16 16:00 98.4 108 15 97/45 100 11/05/16 16:00 108 11/05/16 16:00 40 11/05/16 14:49 100 40 11/05/16 12:00 40 11/05/16 12:00 98.1 91 15 104/49 100 11/05/16 12:00 104 11/05/16 11:56 40 11/05/16 11:56 100 40 11/05/16 11/05/16 11/06/16 15:00 23:00 07:00 Intake Total 781 ml 894 ml Output Total 800 ml 1300 ml 1650 ml Balance -800 ml -519 ml -756 ml Intake IV Total 584 ml 553 ml Tube Feeding 197 ml 341 ml Output Urine Total 800 ml 1300 ml 1300 ml Stool Total 0 ml 350 ml Laboratory Tests Test 11/05/16 11/06/16 02:25 03:40 White Blood Count 9.2 TH/MM3 11.1 TH/MM3 Red Blood Count 2.44 MIL/MM3 2.32 MIL/MM3 Hemoglobin 7.0 GM/DL 6.7 GM/DL Hematocrit 21.1 % 20.0 % Mean Corpuscular Volume 86.8 FL 86.3 FL Mean Corpuscular Hemoglobin 28.6 PG 28.9 PG Mean Corpuscular Hemoglobin 32.9 % 33.5 % Concent Red Cell Distribution Width 15.3 % 14.9 % Platelet Count 217 TH/MM3 212 TH/MM3 Mean Platelet Volume 8.4 FL 8.5 FL Neutrophils (%) (Auto) 80.3 % Lymphocytes (%) (Auto) 10.6 % Monocytes (%) (Auto) 3.8 % Eosinophils (%) (Auto) 4.3 % Basophils (%) (Auto) 1.0 % Neutrophils # (Auto) 8.9 TH/MM3 Lymphocytes # (Auto) 1.2 TH/MM3 Monocytes # (Auto) 0.4 TH/MM3 Eosinophils # (Auto) 0.5 TH/MM3 Basophils # (Auto) 0.1 TH/MM3 CBC Comment DIFF FINAL Differential Comment Laboratory Tests Test 11/04/16 11/05/16 11/05/16 11/05/16 21:15 02:25 09:30 21:58 Potassium Level 3.0 MEQ/L 3.4 MEQ/L 3.6 MEQ/L Sodium Level 145 MEQ/L Chloride Level 105 MEQ/L Carbon Dioxide Level 32.0 MEQ/L Anion Gap 8 MEQ/L Blood Urea Nitrogen 42 MG/DL Creatinine 1.03 MG/DL Estimat Glomerular Filtration 87 ML/MIN Rate Random Glucose 119 MG/DL Calcium Level 8.4 MG/DL Magnesium Level 2.4 MG/DL Test 11/06/16 03:40 Sodium Level 146 MEQ/L Potassium Level 3.4 MEQ/L Chloride Level 108 MEQ/L Carbon Dioxide Level 32.0 MEQ/L Anion Gap 6 MEQ/L Blood Urea Nitrogen 40 MG/DL Creatinine 1.01 MG/DL Estimat Glomerular Filtration 89 ML/MIN Rate Random Glucose 113 MG/DL Calcium Level 8.5 MG/DL Total Bilirubin 0.4 MG/DL Aspartate Amino Transf 28 U/L (AST/SGOT) Alanine Aminotransferase 63 U/L (ALT/SGPT) Alkaline Phosphatase 69 U/L Total Protein 7.1 GM/DL Albumin 2.7 GM/DL Microbiology Date/Time Procedure Status Source Growth 11/04/16 12:45 Aerobic Blood Culture - Preliminary Resulted Blood Line NO GROWTH IN 1 DAY 11/04/16 12:45 Anaerobic Blood Culture - Preliminary Resulted Blood Line NO GROWTH IN 1 DAY 11/04/16 12:55 Aerobic Blood Culture - Preliminary Resulted Blood Peripheral NO GROWTH IN 1 DAY 11/04/16 12:55 Anaerobic Blood Culture - Preliminary Resulted Blood Peripheral NO GROWTH IN 1 DAY IMAGING: Chest X-Ray 11/03/16 0000 Signed Impressions: Service Date/Time: Thursday, November 03, 2016 10:48 - CONCLUSION: Improving aeration of the lung preciado compared to the prior study. Omari Moya MD GENERAL: Patient is in no acute distress. Restless. Awake. HEENT: EOMI, No icterus. No conjunctival erythema. NECK: Supple.No adenopathy. LUNGS: Bilateral rhonchi. CARDIAC: Regular rate and rhythm. (+) 4/6 DALILA LSB. ABDOMEN: Soft, non tender. EXTREMITIES: No CCE. No embolic phenomena. SKIN: No rash. Laboratory Tests Test 11/03/16 11/04/16 12:20 04:33 Nasal Screen MRSA (PCR) MRSA NOT DETECTED White Blood Count 11.6 Red Blood Count 2.51 Hemoglobin 7.2 Hematocrit 21.9 Mean Corpuscular Volume 87.0 Mean Corpuscular Hemoglobin 28.8 Mean Corpuscular Hemoglobin 33.1 Concent Red Cell Distribution Width 15.2 Platelet Count 208 Mean Platelet Volume 9.0 Sodium Level 144 Potassium Level 2.4 Chloride Level 106 Carbon Dioxide Level 30.4 Anion Gap 8 Blood Urea Nitrogen 44 Creatinine 1.08 Estimat Glomerular Filtration 83 Rate Random Glucose 124 Calcium Level 8.8 Result Diagram: 11/04/16 0433 11/04/16 0433 Imaging RADIOLOGY STUDIES/FILMS REVIEWED Chest X-Ray 11/03/16 0000 Signed Impressions: Service Date/Time: Thursday, November 03, 2016 10:48 - CONCLUSION: Improving aeration of the lung preciado compared to the prior study. Omari Moya MD Assessment and Plan Assessment and Plan IMPRESSION MSSA AV endocarditis. Last positive blood culture 10/04/16. 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 Respiratory failure S/P trach Recent Enterobacter PNA - treated. Cassandra in UC 10/30 Treated. Low grade temps, ?new nosocomial infection. RECOMMENDATION Continue IV Oxacillin2 gm Q 4 hours. Monitor temps Monitor blood cultures. No growth day 1. Monitor clinical progress Nemesio Jackson MD Nov 06, 2016 10:31
--- NOTE | 2016-11-06 12:12 | HHI.CCPN ---
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 His course was complicated by persistent respiratory failure requiring tracheostomy, intracerebral abscess, and severe aortic insufficiency with at least 4 episodes of flash pulmonary edema and near fatal hypoxic respiratory failure. He was evaluated by 2 cardio thoracic surgeons at this institution and deemed not to be a surgical candidate. He was then transferred to [facility] for an outside opinion, where cardiac thoracic surgery at that facility along with infectious disease and neurology at that facility deemed him to be not a surgical candidate. He reports to [facility] in transfer back from [facility]. He remained stable without change and acute clinical status. He is still intubated and encephalopathic. Additional history is unobtainable from the patient. Subjective: 11/04: agitation persists. cr slightly better. no significant change. ID prefers to change back to oxacillin. another long family discussion today: family has found a facility in [place] they are interested in transferring him to for 3rd opinion. 11/05: Patient remains heavily sedated with propofol and fentanyl for agitation. Severe agitation causes him to go into flash pulmonary edema. On sedation lightening patient moves uncontrollably. Otherwise have been stable overnight. 11/06: CXR with continued pulmonary interstitial edema and venous congestion. RV , PA enlarged consistent with chronic overload. Tmax 99. We have produced a prerenal azotemia appropriately so and oxygen diffusion remains acceptable. This remains uncompensated heart failure from a mechanical problem with a poor prognosis. Objective Vital Signs Date Time Temp Pulse Resp B/P Pulse Ox O2 Delivery O2 Flow Rate FiO2 11/06/16 08:27 100 40 11/06/16 08:15 99.7 98 15 101/49 11/06/16 07:00 Mechanical Ventilator Intake and Output 11/05/16 11/05/16 11/06/16 08:00 16:00 00:00 Intake Total 781 ml Output Total 800 ml 1300 ml Balance -800 ml -519 ml Result Diagram: 11/06/16 0340 11/06/16 0340 Objective Remarks GENERAL: Young male, lying in bed, encephalopathic, trach in place, on a ventilator HEENT: Normocephalic. Atraumatic. Pupils equal, round, reactive, conjugate. Mucous membranes are moist NECK: Trachea is midline. Neck veins full. CHEST: Tracheostomy in place. Equal chest rise. Persistent bilateral crackles. CARDIOVASCULAR: Tachycardic rate, regular rhythm. Sinus by telemetry. ABDOMEN: Soft, nontender, nondistended. No guarding. PEG tube in place. BACK: Sacral decubitus. MUSCULOSKELETAL: Pulses 2+. No peripheral edema. NEUROLOGICAL: Opens eyes intermittently spontaneously. Tracks intermittently with his eyes but does not focus or follow.. Does not follow commands. Withdrawals 4 limbs, moves all extremities spontaneously. Left upper extremity minimal strength. A/P Assessment and Plan Assessment: This is a 26-year-old male with infective aortic valve endocarditis , intracerebral septic emboli with intracerebral abscess and hemorrhagic conversion of infarctions, severe CHF exacerbation secondary to valvulopathy, severe persistent encephalopathy, chronic respiratory failure. He re-presents from [facility] for ongoing management. Based on his echo, along with the input from outside hospital consultants, I agree with their assessment that he is likely not a surgical candidate at this time. At this point, without surgery, he would certainly , and with surgery, likely given his multiple medical comorbidities, he may . Given that he is young, I think it is reasonable to give the patient and additional 2 weeks to see if we can medically optimize him from a neurologic and cardiovascular standpoint. Likely this will be unsuccessful given that without surgical repair, the patient will not be able to stay out of heart failure. Patient is DNR now, but continue our aggressive medical management for an additional 2 weeks. If at that time he is not clinically improved, I think that we have a responsibility to the patient to pursue comfort measures at that time. Plan: Infective Aortic Valve Endocarditis -- Abx per ID, Continue IV Oxacillin -- Blood culture 2 from 11/04/16 negative to date -- daily cbc -- Culture for fevers. Severe CHF exacerbation secondary to valvulopathy Severe aortic valve insufficiency -- bumex 2mg iv q8hr -- repeat ISABEL 11/03: severe AI. preserved EF. left pleural effusion -- Pulmonary edema persists. Metabolic alkalosis -- diamox 500mg iv q8h completed --restart for alkalosis and K loss Severe Hypokalemia -- aggressive electrolyte replacement Severe Encephalopathy Septic Intracerebral emboli Multiple CVAs Hemorrhagic conversion of prior CVAs -- continue to hold anticoagulation -- frequent neuro checks Agitated Delirium -- propofol, fentanyl for goal RASS -2 -- add Geodon 10mg IM q8h prn Acute pain associated with decubitus ulcer -- Oxycodone 10mg per tube q4h scheduled Acute on chronic hypoxic respiratory failure -- diuresis as above -- continue PRVC -- CPAP/PS as tolerated -- Wean fio2 for spo2 > 90% Acute protein calorie malnutrition- severe -- continue TF Dispo: -- remain in the ICU. remains critically ill. the family is welcome to pursue inter-facility transfer if they choose. Addendum: Patient pulled out PEG. RN placed new Jerez. Overall impression: No change in poorly compensated cardiopulmonary status. Robert Cartagena MD Nov 06, 2016 12:12 Robert Cartagena MD Nov 06, 2016 12:12
--- NOTE | 2016-11-06 12:38 | HHI.HCPN ---
Reason for visit a. To assist with evaluation and management of symptoms including: dyspnea, agitation, pain, encephalopathy , malnutrition b. To assist medical decision maker(s) with: better understanding of current medical conditions; weighing benefits/burdens of medical treatment options; making medical treatment decisions. Subjective/Interval History 26-year-old patient was re-admitted/transferred back to [facility] in 11/[address] [facility], for ongoing management of endocarditis , aortic valve vegetation. He was transferred to [facility] last week for second opinion regarding and cardiac thoracic surgery for aortic valve replacement. He was evaluated there by their infectious disease, neurology, they deemed him not to be a surgical candidate and thus he was transferred back to [facility]. He has remained stable without changes to his clinical status. Remains intubated, encephalopathic.Palliative care was reconsulted to assist with support to the family, continue with clarification of goals of treatment BC from 10/04 = now growth. ID following, cont Oxacillin.WBC 11.1. Tmax 99.7. Episode of agitation yesterday in which he dislodged his PEG tube, GI was consulted and replaced the tube later in the afternoon. Tube feeding has been resumed. Continues to be on Geodon, fentanyl 250 mics, Diprivan and 50 mics. Nursing reports spontaneous and purposeful movements intermittently on sedation , has not lightened fully for neuro assessment. No following of commands. Case management informs family continues to look at potential options for surgery at another facility, currently looking at a facility at [facility], they have apparently requested hand inspector call that physician. Pt seen in room no visitors present, nsg to notify me when mother or father arrives, indicate mom was in early today. Pt sedated, appears comfortable on mech vent. +fentanyl 250mcgs/hr, diprivan 50 mcg/kg/min. Did not lighten for neuro exam due to hx agitation. Eyes are open but does not track examiner. Observe spontaneous movements, he does not follow my commands. Following exam call to sister Anay, as per prior interactions she requests daily updates as she assists/supports mom & dad in decision making. D/w critical care Dr Dominguez, primary RN. patient is known to palliative care service from prior admission during September, additional HPI as per palliative care consult 10/03/16: He initially presented via EMS 09/30/16 for altered mental status. He apparently been last seen normal by his landlord 2 days prior. Patient apparently presented to the ED 2 days prior for diagnosis of allergic reaction, at that time reporting low-grade fever and congestion. He at that time reported being seen 10 days prior by another physician and had been prescribed antibiotics for a fever. He then developed a red rash and peeling on his hands and feet, complains of generalized weakness and lightheadedness at that presentation. At that time he was prescribed prednisone and to follow-up with local provider. On day of presentation landlord found patient altered and notified EMS. Patient lethargic at presentation and unable to provide additional information. ED record notes family members were called, patient reported to have a rash on his hands and feet for the past 2 weeks and had been seen by a local physician. Family also reporting patient with a history of substance abuse, recently in rehabilitation, last rehabilitation a year ago. * ED course: Patient obtunded at arrival. Lactic acid 3.7, troponin 11.9, alkaline phosphatase 175 area total CK 372. BUN 54, creatinine 1.69, GFR 49. Glucose 116. Salicylate and acetaminophen levels normal. Urine drug screen positive for opiates, amphetamine (on ADDERALL FOR ADHD). Alcohol negative. He was intubated sedated. CXR with no acute process identified.Head CT= significant areas of infarction in the right frontal, temporal, and cerebellar regions as well as a small area of subarachnoid hemorrhage in the superior right parietal region. Patient has early 3 mm of midline shift as well as effacement on the right. * Echo: "hyperdynamic left ventricular function and what appears to be aortic valve vegetations and I measured to be approximally 0.9 x 8.8 cm. This is associated with what appears to be severe aortic regurgitation. There is no pericardial effusion. Right ventricular function is preserved." ID, neurosurgery consulted. Cultures pending. * Infectious disease: Initial cultures sputum :gram-positive cocci pairs and clusters, blood culture gram-positive cocci. CXR worsening. Patient continued on vancomycin, Rocephin, following cultures. * Neurosurgery: Patient with multiple acute septic CVAs, cerebral edema, small subarachnoid hemorrhage, midline shift, metabolic encephalopathy. Follow-up CT , repeat CT for any changes in neuro status. Continue 3% saline, keep sodium elevated ADDITIONAL OUT PT HX PER DOCUMENTS/ RXs PROVIDED BY FAMILY: * EKG, lower spine x-rays per Dr. Prather 07/09/16 * 09/07/16 RX ibuprofen TO replace meloxicam for joint pain, + Adderall 30 mg daily ([facility] pharmacy) * 09/13/16 RX omeprazole, clindamycin 150 mg 4 tablets twice a day, acyclovir 200 mg 1 by mouth 5 times a day [address] Herrera ([facility] pharmacy) * 09/14/16- RX prednisone Dr. Prather, doxycycline 100 mg 1 by mouth every 12 hours; family reports diagnosed with a "viral illness 09/17" ([facility] pharmacy) * 09/[address] [facility] [address] Bj Luis Tylenol 3 quantity 20, acyclovir 200 mg 1 by mouth 5 times a day 10 days * s/p tracheostomy, PEG tube week of 10/15/16 * During clinical course through September patient was some neurological improvement at some point weaning off sedation following commands, localizing, arousable though with ongoing episodes of agitation requiring various sedatives including Precedex, fentanyl, Diprivan. * Follow-up CT identified small brain hemorrhage; at that point patient was not a candidate for cardiac surgical intervention. CTS evaluated and noted patient would require at least 4 weeks on antibiotics, and at least 6 weeks out from brain hemorrhage before surgical intervention could be considered (follow-up CT brain stable) * Repeat echo again noted aortic vegetation, with possible perforation of aortic valve leaflets; CVS again reconsulted to consider surgery patient continues to have episodes of pulmonary edema felt to be secondary to severe aortic valve insufficiency. Concern that without surgical intervention patient may not tolerate ventilator weaning due to cardiac status. During periods of sedation weaning patient is following commands. At one point off of mechanical vent tolerating T piece for couple of days at a time though required ventilation again due to pulmonary edema, hypoxic respiratory failure. CVS reevaluation determines not a good surgical candidate, he was evaluated by [facility], subsequently declined. [facility] excepted for evaluation and possible valve replacement. * Was transferred to [facility] 10/31/16. Family/friend interactions Nursing to notify me when family (mother) arrives. Call to sister to provide update, as per her request to update daily. Voicemail left. . Advance Directives Living Will: Never completed Health Care Surrogate: Never completed Durable Power of Heating Fixture Tender: Never completed Objective Vital Signs Date Time Temp Pulse Resp B/P Pulse Ox O2 Delivery O2 Flow Rate FiO2 11/06/16 12:00 40 11/06/16 12:00 102 11/06/16 12:00 99.7 102 15 103/57 98 11/06/16 08:27 100 40 11/06/16 08:15 99.7 98 15 101/49 100 11/06/16 08:00 99.7 106 16 107/53 100 11/06/16 08:00 40 11/06/16 08:00 99.7 106 16 107/53 100 11/06/16 08:00 106 11/06/16 07:00 100 Mechanical Ventilator 40 11/06/16 04:05 100 40 11/06/16 04:00 40 11/06/16 04:00 99.3 107 16 109/51 100 11/06/16 04:00 107 11/06/16 00:33 100 40 11/06/16 00:00 94 11/06/16 00:00 40 11/06/16 00:00 98.7 94 15 106/53 100 11/05/16 20:00 98 11/05/16 20:00 98.6 98 15 101/49 100 11/05/16 20:00 40 11/05/16 19:41 100 40 11/05/16 19:00 100 Mechanical Ventilator 40 11/05/16 16:00 98.4 108 15 97/45 100 11/05/16 16:00 108 11/05/16 16:00 40 11/05/16 14:49 100 40 Intake & Output 11/06/16 11/06/16 07:00 19:00 Intake Total 1675 ml Output Total 2950 ml Balance -1275 ml Intake IV Total 1137 ml Tube Feeding 538 ml Output Urine Total 2600 ml Stool Total 350 ml Physical Exam CONSTITUTIONAL/GENERAL: This is an adequately nourished patient, sedated on mech vent TUBES/LINES/DRAINS: Left subclavian central line, Jerez catheter, PEG tube, rectal drain, SCDs SKIN: No jaundice, rashes, or lesions.No wounds seen anteriorly. Reported stage III wound to sacrum not visualized. Skin temperature warm, dry. EYES: Eyes open, not tracking. Pupils 3 mm, slight reaction to light. No scleral icterus. No injection or drainage. Fundi not examined. ENT: Nose without bleeding or purulent drainage. Mouth closed, + some dried secretions visible around lips. NECK: Trachea, tracheostomy midline. Supple, nontender. CARDIOVASCULAR: Regular rate and rhythm without murmurs. Peripheral pulses symmetric. RESPIRATORY/CHEST: Symmetric, unlabored respirations via tracheostomy to mechanical vent. Some scattered rhonchi throughout. Breath sounds equal bilaterally. GASTROINTESTINAL: Abdomen soft, flat, no apparent tenderness though limited assessment, nondistended. No hepato-splenomegaly, or palpable masses. Bowel sounds present. Tube feeding in infusing via PEG. + Loose brown stool present in rectal drain. NEUROLOGICAL: Sedated on mechanical vent. Eyes open, does not track examiner. Observe moving extremities spontaneously, does not follow commands. Appears comfortable. PSYCHIATRIC: No obvious anxiety/depression--limited assessment due to clinical condition, sedatives. . Diagnostic Tests Laboratory Laboratory Tests Test 11/04/16 11/04/16 11/04/16 11/05/16 04:33 13:13 21:15 02:25 White Blood Count 11.6 TH/MM3 9.2 TH/MM3 (4.0-11.0) (4.0-11.0) Red Blood Count 2.51 MIL/MM3 2.44 MIL/MM3 (4.50-5.90) (4.50-5.90) Hemoglobin 7.2 GM/DL 7.0 GM/DL (13.0-17.0) (13.0-17.0) Hematocrit 21.9 % 21.1 % (39.0-51.0) (39.0-51.0) Mean Corpuscular Volume 87.0 FL 86.8 FL (80.0-100.0) (80.0-100.0) Mean Corpuscular Hemoglobin 28.8 PG 28.6 PG (27.0-34.0) (27.0-34.0) Mean Corpuscular Hemoglobin 33.1 % 32.9 % Concent (32.0-36.0) (32.0-36.0) Red Cell Distribution Width 15.2 % 15.3 % (11.6-17.2) (11.6-17.2) Platelet Count 208 TH/MM3 217 TH/MM3 (150-450) (150-450) Mean Platelet Volume 9.0 FL 8.4 FL (7.0-11.0) (7.0-11.0) Sodium Level 144 MEQ/L 145 MEQ/L (136-145) (136-145) Potassium Level 2.4 MEQ/L 3.0 MEQ/L 3.4 MEQ/L (3.5-5.1) (3.5-5.1) (3.5-5.1) Chloride Level 106 MEQ/L 105 MEQ/L (98-107) (98-107) Carbon Dioxide Level 30.4 MEQ/L 32.0 MEQ/L (21.0-32.0) (21.0-32.0) Anion Gap 8 MEQ/L (5-15) 8 MEQ/L (5-15) Blood Urea Nitrogen 44 MG/DL (7-18) 42 MG/DL (7-18) Creatinine 1.08 MG/DL 1.03 MG/DL (0.60-1.30) (0.60-1.30) Estimat Glomerular Filtration 83 ML/MIN (>89) 87 ML/MIN (>89) Rate Random Glucose 124 MG/DL 119 MG/DL (74-106) (74-106) Calcium Level 8.8 MG/DL 8.4 MG/DL (8.5-10.1) (8.5-10.1) Urine Color YELLOW (YELLW/STRAW) Urine Turbidity CLEAR (CLEAR) Urine pH 5.5 (5.0-8.5) Urine Specific [place] 1.014 (1.002-1.035) Urine Protein 30 mg/dL (NEG-TRACE) Urine Glucose (UA) NEG mg/dL (NEG) Urine Ketones NEG mg/dL (NEG) Urine Occult Blood MOD (NEG) Urine Nitrite NEG (NEG) Urine Bilirubin NEG (NEG) Urine Urobilinogen LESS THAN 2.0 MG/DL (LESS THAN 2.0) Urine Leukocyte Esterase NEG (NEG) Urine RBC 126 /hpf (0-3) Urine WBC 1 /hpf (0-5) Urine Squamous Epithelial <1 /hpf (0-5) Cells Urine Bacteria RARE /hpf (NONE) Urine Hyaline Casts 3 /lpf (RARE) Urine Mucus FEW /lpf (OCC) Microscopic Urinalysis Comment CULT NOT INDICATED Test 11/05/16 11/05/16 11/06/16 11/06/16 09:30 21:58 03:40 05:00 Potassium Level 3.6 MEQ/L 3.4 MEQ/L (3.5-5.1) (3.5-5.1) Magnesium Level 2.4 MG/DL (1.5-2.5) White Blood Count 11.1 TH/MM3 (4.0-11.0) Red Blood Count 2.32 MIL/MM3 (4.50-5.90) Hemoglobin 6.7 GM/DL (13.0-17.0) Hematocrit 20.0 % (39.0-51.0) Mean Corpuscular Volume 86.3 FL (80.0-100.0) Mean Corpuscular Hemoglobin 28.9 PG (27.0-34.0) Mean Corpuscular Hemoglobin 33.5 % Concent (32.0-36.0) Red Cell Distribution Width 14.9 % (11.6-17.2) Platelet Count 212 TH/MM3 (150-450) Mean Platelet Volume 8.5 FL (7.0-11.0) Neutrophils (%) (Auto) 80.3 % (16.0-70.0) Lymphocytes (%) (Auto) 10.6 % (9.0-44.0) Monocytes (%) (Auto) 3.8 % (0.0-8.0) Eosinophils (%) (Auto) 4.3 % (0.0-4.0) Basophils (%) (Auto) 1.0 % (0.0-2.0) Neutrophils # (Auto) 8.9 TH/MM3 (1.8-7.7) Lymphocytes # (Auto) 1.2 TH/MM3 (1.0-4.8) Monocytes # (Auto) 0.4 TH/MM3 (0-0.9) Eosinophils # (Auto) 0.5 TH/MM3 (0-0.4) Basophils # (Auto) 0.1 TH/MM3 (0-0.2) CBC Comment DIFF FINAL Differential Comment Sodium Level 146 MEQ/L (136-145) Chloride Level 108 MEQ/L (98-107) Carbon Dioxide Level 32.0 MEQ/L (21.0-32.0) Anion Gap 6 MEQ/L (5-15) Blood Urea Nitrogen 40 MG/DL (7-18) Creatinine 1.01 MG/DL (0.60-1.30) Estimat Glomerular Filtration 89 ML/MIN (>89) Rate Random Glucose 113 MG/DL (74-106) Calcium Level 8.5 MG/DL (8.5-10.1) Total Bilirubin 0.4 MG/DL (0.2-1.0) Aspartate Amino Transf 28 U/L (15-37) (AST/SGOT) Alanine Aminotransferase 63 U/L (12-78) (ALT/SGPT) Alkaline Phosphatase 69 U/L (45-117) Total Protein 7.1 GM/DL (6.4-8.2) Albumin 2.7 GM/DL (3.4-5.0) Blood Type O NEGATIVE Antibody Screen NEGATIVE Crossmatch Leukocyte-Reduced Red Blood Cells Blood Bank Comment Result Diagram: 11/06/16 0340 11/06/16 0340 Microbiology Microbiology Date/Time Procedure Status Source Growth 11/04/16 12:45 Aerobic Blood Culture - Preliminary Resulted Blood Line NO GROWTH IN 2 DAYS 11/04/16 12:45 Anaerobic Blood Culture - Preliminary Resulted Blood Line NO GROWTH IN 2 DAYS 11/04/16 12:55 Aerobic Blood Culture - Preliminary Resulted Blood Peripheral NO GROWTH IN 2 DAYS 11/04/16 12:55 Anaerobic Blood Culture - Preliminary Resulted Blood Peripheral NO GROWTH IN 2 DAYS Imaging Last Impressions Chest X-Ray 11/05/16 0000 Signed Impressions: Service Date/Time: Saturday, November 05, 2016 17:34 - CONCLUSION: Increasing air bronchograms retrocardiac region the left. Jair Coello MD FACR Procedures racheostomy, PEG tube . Assessment and Plan Disease Oriented Problem List: (1) Aortic valve endocarditis (2) CVA (cerebral vascular accident) Comment: multiple CVAs, Septic Intracerebral emboli (3) Cerebral septic emboli (4) Aortic valve insufficiency Comment: severe (5) CHF (congestive heart failure) Comment: secondary to valvulopathy . (6) Acute on chronic respiratory failure with hypoxia (7) Encephalopathy (8) Intracranial hemorrhage Comment: Hemorrhagic conversion of prior CVAs (9) Previous IVDU (10) Severe protein-calorie malnutrition Symptom Scale: (1) Dyspnea (2) Encephalopathy (3) Agitation (4) Pain (5) Malnutrition Pertinent Non-Medical Issues Psychosocial:originally from [place], lived in [place] . HS education. Was incarcerated and then in drug rehabilitation in [facility]. 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 Has 1 sister Elizabeth (Anay) ,lives in [place], mother lives in [place]. Father (parents ) lived in [place] with support from family there. Supported by local friends, coworkers, apartment landlord. Spiritual:believes in God, no particular affiliation. would want ongoing loan interviewer support. Legal:Patient is not able to participate in decision-making due to clinical condition. He is not . Per [place] statutes his parents would be legal decision makers, mother is serving as primary supported by his sister and father. Mother has POA paperwork, however this does NOT include medical decision making. Ethical issues impacting care: Important Contacts mother Felicita Roberts [phone] sister Elizabeth Rios [phone] father Pradeep Rios [phone] . Prognosis This unfortunate 26-year-old man initially presented to the ED in September with altered mental status, he has been found to have mixed septic/cardiogenic shock with multiple areas of septic emboli CVA secondary to aortic valve endocarditis. He then developed a small ICH. He has had prolonged ICU course, with episodes of agitation, pulmonary edema and hypoxic respiratory failure, 2/ 2 to severe aortic valve insufficiency. + Aortic valve leaflet perforations. CVS evaluated here for possible valve replacement, patient not felt to be good surgical candidate. Was declined by [facility]. Was transferred and evaluated by [facility] at [facility] last week, also declined due to not felt to be good surgical candidate, transferred back to [facility] 11/03/16. Remains in critical condition, medical treatments maximized. Patient with very poor chance of survival without a valve replacement, and is currently not a candidate for a valve due to poor clinical condition. Not felt likely to improve enough to obtain valve replacement. High risk for ongoing clinical complications and . . Code Status: No Code Plan * Legal decision maker: Patient is not able to participate in decision-making due to clinical condition. He is not . Per [place] statutes his parents would be legal decision makers, mother is serving as primary supported by his sister and father. Mother has POA paperwork however this does not include medical decision-making. * Goals: During prior palliative consultation and multiple interactions palliative has met w pt mother, father, sister at length. Patient sister appears to have a reasonable understanding of conditions, prognosis. Patient mother , father appear to have a very simple understanding of conditions and prognosis. At that time family's goals were aggressive, Patient's mother is hoping for a miracle and wants to continue whatever measures available to help patient recover. 11/05/16: Family wishes to continue maximize medical treatments with the hopes of patient condition may possibly improve enough to be considered for valve replacement; they understand he is high risk for not improving, further complications, clinical deterioration. Mother endorses she continues to pray for pt and is hoping for a miracle. She is also looking at various other facilities for possible transfer /evaluation for valve, she is currently looking into/contacting hospital associated with [facility] ([facility]), she is hoping to find a surgeon willing to attempt a valve on her son. 11/06/16: Goals remain aggressive. * CODE STATUS: DNR * SYMPTOMS: --dyspnea- intubated for AMS. [facility]; status post tracheostomy. has had difficulty weaning off of vent/staying off of vent due to agitation, pulmonary edema 2/2 severe aortic valve insufficiency -- agitation- hx substance abuse; hx ADD, on adderall. + Embolic CVA, +new hemorrhage 10/16 to the right temporal lobe (follow-up CT imaging stable) Has had periods of restlessness, agitation ongoing during prolonged hospital course. Has been on various sedatives including Precedex, Diprivan, fentanyl. Has at times when lightened and able to follow commands, moved all 4 extremities. Currently on Geodon 10mg IM Q 12 hr, fentanyl 250/mcgs hr, diprivan 50 mcgs/kg/ min -- encephalopathy- multifactorial-- +sepsis, embolic CVA, +new hemorrhage 10/16 to the right temporal lobe (follow-up CT imaging stable) hx substance abuse, EEG neg seizure . -- malnutrition -- s/p PEG (replaced by GI 11/05 due to pt dislodging) . Ongoing TF. albumin 3.1 --Pain: Potential sources would include: History of degenerative disc disease ; has had prolonged bedbound status during > 1 month hospitalization, + stage III wounds to coccyx.started on ATC Oxycodone 10mg per tube q4h scheduled * Palliative care will continue to follow during hospital course as condition evolves, to assist patient/decision-maker with understanding of medical conditions, weighing benefits/burdens of treatment options, for clarification of goals of treatment. Additionally will assist with any symptoms of palliative concern Attestation To help prompt me to consider important information that might be impacting today's encounter and assessment, information from prior notes written by myself or my colleagues may have been "brought forward" into today's note. My signature on this note, however, is an attestation that I personally performed the exam, history, and/or decision-making noted today, and, unless otherwise indicated, the interactions with patient, family, and staff as well as the review of records all occurred today. I also attest that the listed assessment and stated plan reflect my best clinical judgment today based on the combination of historical information, prior notes, and today's exam/ interactions. When time spent is documented, it refers only to time spent today by the signer, or if indicated, combined time spent today by collaborating physician/nurse practitioner. Sandy Liu Nov 06, 2016 12:38
--- NOTE | 2016-11-06 13:17 | PD.CONS ---
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 His hospital course was complicated by intracerebral abscess, severe aortic insufficiency, and several episodes of flash pulmonary edema with hypoxic respiratory failure. He required a tracheostomy and PEG tube placement. EGD with PEG tube placement (10/17/16)----- > The upper, middle, and distal third of the esophagus were carefully inspected and no abnormalities were noted. The z-line was well seen at the GEJ. The endoscope was pushed into the fundus which was normal including a retroflexed view. The antrum, first and second part of the duodenum were unremarkable, PEG placed successfully. We were then reconsulted for anemia with drop in Hgb on . At that time, he was not having a significant amount of pink/forthy secretions from his tracheostomy, but not having any obvious GI bleeding ( stomach contents were aspirated- TF material and he had a brown bowel movement) . He was unstable at the time with hypoxia, tachycardia, and requiring 70% FIO2 and therefore we decided not to repeat EGD at that time, based on his overall clinical status and the fact that there was no obvious GI bleeding. He was evaluated by cardiothoracic surgery for possible valve replacement, but was deemed not to be a surgical candidate. He was then transferred to [facility] for an outside opinion, where he was also deemed not to be a surgical candidate. He was then transferred back to this facility on 11/03/16. His PEG tube was dislodged and GI was consulted. [facility] Past Medical History ADHD History of substance abuse, post rehabilitation 1-2yr ago Degenerative disc disease Past Surgical History Oral surgeries in past year Coded Allergies: Hydrocodone (Verified Allergy, Unknown, Nausea/Vomiting, 10/04/16) Mother called Dentist to verify Sulfa (Verified Allergy, Unknown, 09/30/16) Toradol (Verified Allergy, Unknown, 09/30/16) Medications Allergies Coded Allergies Type Severity Reaction Last Updated Verified Hydrocodone Allergy Unknown Nausea/Vomiting 10/04/16 Yes Sulfa Allergy Unknown 09/30/16 Yes Toradol Allergy Unknown 09/30/16 Yes Active Scripts Medications Dose Route/Sig Days Date Category Dose Instructions Senna (Sennosides) 8.8 Mg/5 Ml Syp 8.8 Mg PEG Q12HR 11/04/16 Reported Seroquel (Quetiapine Fumarate) 100 Mg Tab 75 Mg PO BID 11/04/16 Reported Protonix Inj (Pantoprazole Sodium) 40 Mg Inj 40 Mg IV PUSH DAILY 11/04/16 Reported Oxacillin Inj 2 Gm Inj 2 Gm IV Q6H 11/04/16 Reported Solu-Cortef Inj (Hydrocortisone Sodium Succinate) 100 Mg Inj 50 Mg IV PUSH Q6HR 11/04/16 Reported Docusate Sodium Liq (Docusate Sodium) 50 Mg/5 Ml Liq 100 Mg PO Q12HR 11/04/16 Reported Cefepime Inj (Cefepime HCl) 2 Gm/100 Ml Bagp 2 Gm IV Q8H 10 11/04/16 Reported Alprazolam 0.5 Mg Tab 0.5 Mg PO BID 11/04/16 Reported Ibuprofen 600 Mg Tab 600 Mg PO Q6H PRN 09/30/16 Reported Meclizine (Meclizine HCl) 25 Mg Chew 25 Mg CHEW DIRECTED PRN 09/30/16 Reported Acyclovir 200 Mg Cap 200 Mg PO 5 TIMES A DAY 09/30/16 Reported Tylenol-Codeine #3 (Acetaminophen-Codeine) 300-30 mg Tab 1 Tab PO Q4H PRN 09/30/16 Reported Prednisone 20 Mg Tab 40 Mg PO DAILY 09/28/16 Rx Take 40 mg (2 tablets) daily for 5 days Family History History of various cancers paternal, paternal aunt with aneurysm, hx [place] maternal GF Social History Unable to obtain Review of Systems ROS Unable to obtain GI Exam Vitals I&O Vital Signs Date Time Temp Pulse Resp B/P Pulse Ox O2 Delivery O2 Flow Rate FiO2 11/06/16 12:00 40 11/06/16 12:00 102 11/06/16 12:00 99.7 102 15 103/57 98 11/06/16 08:27 100 40 11/06/16 08:15 99.7 98 15 101/49 100 11/06/16 08:00 99.7 106 16 107/53 100 11/06/16 08:00 40 11/06/16 08:00 99.7 106 16 107/53 100 11/06/16 08:00 106 11/06/16 07:00 100 Mechanical Ventilator 40 11/06/16 04:05 100 40 11/06/16 04:00 40 11/06/16 04:00 99.3 107 16 109/51 100 11/06/16 04:00 107 11/06/16 00:33 100 40 11/06/16 00:00 94 11/06/16 00:00 40 11/06/16 00:00 98.7 94 15 106/53 100 11/05/16 20:00 98 11/05/16 20:00 98.6 98 15 101/49 100 11/05/16 20:00 40 11/05/16 19:41 100 40 11/05/16 19:00 100 Mechanical Ventilator 40 11/05/16 16:00 98.4 108 15 97/45 100 11/05/16 16:00 108 11/05/16 16:00 40 11/05/16 14:49 100 40 I/O 11/05/16 11/05/16 11/05/16 11/06/16 11/06/16 11/06/16 07:00 15:00 23:00 07:00 15:00 23:00 Intake Total 781 ml 894 ml Output Total 800 ml 1300 ml 1650 ml Balance -800 ml -519 ml -756 ml Intake IV Total 584 ml 553 ml Tube Feeding 197 ml 341 ml Output Urine Total 800 ml 1300 ml 1300 ml Stool Total 0 ml 350 ml Imaging Last Impressions Chest X-Ray 11/05/16 0000 Signed Impressions: Service Date/Time: Saturday, November 05, 2016 17:34 - CONCLUSION: Increasing air bronchograms retrocardiac region the left. Jair Coello MD FACR Laboratory Test 11/05/16 11/06/16 11/06/16 21:58 03:40 05:00 Magnesium Level 2.4 MG/DL White Blood Count 11.1 TH/MM3 Red Blood Count 2.32 MIL/MM3 Hemoglobin 6.7 GM/DL Hematocrit 20.0 % Mean Corpuscular Volume 86.3 FL Mean Corpuscular Hemoglobin 28.9 PG Mean Corpuscular Hemoglobin 33.5 % Concent Red Cell Distribution Width 14.9 % Platelet Count 212 TH/MM3 Mean Platelet Volume 8.5 FL Neutrophils (%) (Auto) 80.3 % Lymphocytes (%) (Auto) 10.6 % Monocytes (%) (Auto) 3.8 % Eosinophils (%) (Auto) 4.3 % Basophils (%) (Auto) 1.0 % Neutrophils # (Auto) 8.9 TH/MM3 Lymphocytes # (Auto) 1.2 TH/MM3 Monocytes # (Auto) 0.4 TH/MM3 Eosinophils # (Auto) 0.5 TH/MM3 Basophils # (Auto) 0.1 TH/MM3 CBC Comment DIFF FINAL Differential Comment Sodium Level 146 MEQ/L Potassium Level 3.4 MEQ/L Chloride Level 108 MEQ/L Carbon Dioxide Level 32.0 MEQ/L Anion Gap 6 MEQ/L Blood Urea Nitrogen 40 MG/DL Creatinine 1.01 MG/DL Estimat Glomerular Filtration 89 ML/MIN Rate Random Glucose 113 MG/DL Calcium Level 8.5 MG/DL Total Bilirubin 0.4 MG/DL Aspartate Amino Transf 28 U/L (AST/SGOT) Alanine Aminotransferase 63 U/L (ALT/SGPT) Alkaline Phosphatase 69 U/L Total Protein 7.1 GM/DL Albumin 2.7 GM/DL Blood Type O NEGATIVE Antibody Screen NEGATIVE Crossmatch Leukocyte-Reduced Red Blood Cells Blood Bank Comment Date/Time Procedure Status Source Growth 11/04/16 12:55 Aerobic Blood Culture - Preliminary Resulted Blood Peripheral NO GROWTH IN 2 DAYS 11/04/16 12:55 Anaerobic Blood Culture - Preliminary Resulted Blood Peripheral NO GROWTH IN 2 DAYS Physical Examination HEENT: Normocephalic. CHEST: Resp even/shallow, Tracheostomy to vent. CARDIAC: ST, mild. HR 102 ABDOMEN: Soft, mildly distended,no hepatosplenomegaly; bowel sounds are present in all four quadrants. P EXTREMITIES: Generalized edema. [employer]ODUCTION WORK[employer]: Sedated Assessment and Plan Plan ASSESSMENT: - Malfunctioning PEG tube. PEG tube was dislodged. This was replaced with #20 replacement gastrostomy tube without difficulty, gastric secretions in return. He is tolerating TF. - Anemia with drop in Hgb. Pt has been anemic with intermittent drops. We evaluated him on 10/31 for the same. He was also evaluated was evaluated with EGD with PEG tube placement (10/17/16)-----> The upper, middle, and distal third of the esophagus were carefully inspected and no abnormalities were noted. The z-line was well seen at the GEJ. The endoscope was pushed into the fundus which was normal including a retroflexed view. The antrum, first and second part of the duodenum were unremarkable, PEG placed successfully. The nurse has not seen any active bleeding. I stopped the TF, flushed the G tube and aspirated TF material with no obvious blood. He has not had a bowel movement. PPI. HH went from 7.0/21.1 to 6.7/20.0. 1 unit of PRBC has been ordered. - Dysphagia, Malnutrition. S/P EGD with PEG tube placement (10/17/16)-----> The upper, middle, and distal third of the esophagus were carefully inspected and no abnormalities were noted. The z-line was well seen at the GEJ. The endoscope was pushed into the fundus which was normal including a retroflexed view. The antrum, first and second part of the duodenum were unremarkable, PEG placed successfully. Tolerating TF. [employer] Administrator recommends Nepro to 50 mls/hr to meet nutritional needs. - Aortic valve endocarditis with severe aortic insufficiency with probable AV perforation and multiple acute septic CVA, brain abscesses with small SAH, right temporal hemorrhagic conversion. He was considered high risk for valve replacement here. He was then tx to [facility] for second opinion, but deemed not to be a candidate and was therefore transferred back. Oxacillin. - Acute respiratory failure with pulmonary edema. Bumex/Vent per primary - Fevers secondary to above. Oxacillin per ID/CCM. PLAN - S/P Bedside replacement G tube #20, without difficulty - TF as tolerated - Add Protonix 40mg IV daily - Monitor HH - Transfuse as necessary - Notify GI of any active bleeding - Pt seen and examined by Dr. Brito and myself and this note is written on his behalf Morena Pena Nov 06, 2016 13:17
[2016-11-06 14:37] LABS: HEMATOCRIT 22.1 % (39.0-51.0); REVIEW FLAG FINAL
[2016-11-06] MEDS: PANTOPRAZOLE SODIUM 40 MG VIAL IV PUSH SCH (14:52)
[2016-11-07] VITALS (13 sets, daily range): BP systolic 99–144; BP diastolic 46–64; PULSE 90–136; RESP 15–29; TEMP 98.4–100.4; O2SAT 96–100
[2016-11-07] MEDS: RESP: ALBUTEROL 2.5 MG/IPRATROPIUM 0.5 MG NEB (SCH) INH ×3 (03:18→15:53)
[2016-11-07] MEDS: ZIPRASIDONE MESYLATE 20 MG VIAL IM SCH ×3 (03:31→20:00)
[2016-11-07] MEDS: OXACILLIN INJ 2 GM in SODIUM CHLORIDE 0.9% INJ 100 ML IV SCH ×5 (03:31→20:02)
[2016-11-07] MEDS: oxyCODONE HCL ORAL CONC 20 MG/ML SYRINGE PO SCH ×7 (03:32→23:22)
[2016-11-07] MEDS: PROPOFOL 1000 MG/100 ML INJ 100 ML IV SCH ×3 (03:51→21:53)
[2016-11-07] MEDS: fentaNYL DRIP 250 ML IV SCH (03:51)
[2016-11-07] MEDS: BUMETANIDE INJ 1 MG/4 ML VIAL IV PUSH SCH ×3 (03:52→17:57)
[2016-11-07] MEDS: CHLORHEXIDINE GLUCONATE 2 % 1 PACK (2 CLOTHS) TOP SCH (04:00)
[2016-11-07 05:21] LABS: HEMATOCRIT 22.5 % (39.0-51.0); MEAN CELL VOLUME 85.4 FL (80.0-100.0); MEAN CORPUSCULAR HEMOGLOBIN 28.3 PG (27.0-34.0); MEAN CORPUSCULAR HGB CONC 33.1 % (32.0-36.0); PLATELET COUNT 249 TH/MM3 (150-450); RED BLOOD COUNT 2.64 MIL/MM3 (4.50-5.90); RED CELL DISTRIBUTION WIDTH 15.9 % (11.6-17.2); REVIEW FLAG FINAL; WHITE BLOOD COUNT 13.4 TH/MM3 (4.0-11.0)
[2016-11-07 05:35] LABS: BICARBONATE 30.8 MEQ/L (21.0-32.0); POTASSIUM 3.7 MEQ/L (3.5-5.1)
[2016-11-07] MEDS: INSULIN NovoLIN REGULAR SUPPLEMENTAL SCALE SQ SCH ×4 (06:00→17:33)
[2016-11-07] MEDS: CHLORHEXIDINE 0.12% (ORAL KIT) 15 ML CUP MT SCH ×2 (07:47→20:02)
[2016-11-07] MEDS: METOPROLOL TARTRATE 25 MG TAB PO SCH ×4 (10:00→21:44)
[2016-11-07] MEDS ORDERED: PILL SPLITTER OTHER PRN (10:30)
--- NOTE | 2016-11-07 10:35 | HHI.HCPN ---
Reason for visit a. To assist with evaluation and management of symptoms including: dyspnea, agitation, pain, encephalopathy , malnutrition b. To assist medical decision maker(s) with: better understanding of current medical conditions; weighing benefits/burdens of medical treatment options; making medical treatment decisions. Subjective/Interval History 26-year-old patient was re-admitted/transferred back to [facility] in 11/03 from [facility], for ongoing management of endocarditis , aortic valve vegetation. He was transferred to [facility] last week for second opinion regarding and cardiac thoracic surgery for aortic valve replacement. He was evaluated there by their infectious disease, neurology, they deemed him not to be a surgical candidate and thus he was transferred back to [facility]. He has remained stable without changes to his clinical status. Remains intubated, encephalopathic.Palliative care was reconsulted to assist with support to the family, continue with clarification of goals of treatment BC from 10/04 = no growth. ID following, cont Oxacillin.WBC 13.4. Continues to be on Geodon, fentanyl 250 mics, Diprivan and 50 mics, despite this cont to be restless, moving all over bed per nursing. No following of commands. Case management informs family continues to look at potential options for surgery at another facility, currently looking at a facility in [place] per nursing report, that facility spoke w Dr Coats this am. Seen in room w Ewa Nolen RN, CURVE CLEANER-student. No family present. Awake, eyes open , moving all over the bed and what appears to be a purposeful manner though does not follow any commands. Moving all 4 extremities. soft restraints Bilat wrists, + mitts to hands. Trach to [facility] vent. Following exam call to sister Anay, as per prior interactions she requests daily updates as she assists/supports mom & dad in decision making. D/w critical care Dr Dominguez, primary RN. patient is known to palliative care service from prior admission during September, additional HPI as per palliative care consult 10/03/16: He initially presented via EMS 09/30/16 for altered mental status. He apparently been last seen normal by his landlord 2 days prior. Patient apparently presented to the ED 2 days prior for diagnosis of allergic reaction, at that time reporting low-grade fever and congestion. He at that time reported being seen 10 days prior by another physician and had been prescribed antibiotics for a fever. He then developed a red rash and peeling on his hands and feet, complains of generalized weakness and lightheadedness at that presentation. At that time he was prescribed prednisone and to follow-up with local provider. On day of presentation landlord found patient altered and notified EMS. Patient lethargic at presentation and unable to provide additional information. ED record notes family members were called, patient reported to have a rash on his hands and feet for the past 2 weeks and had been seen by a local physician. Family also reporting patient with a history of substance abuse, recently in rehabilitation, last rehabilitation a year ago. * ED course: Patient obtunded at arrival. Lactic acid 3.7, troponin 11.9, alkaline phosphatase 175 area total CK 372. BUN 54, creatinine 1.69, GFR 49. Glucose 116. Salicylate and acetaminophen levels normal. Urine drug screen positive for opiates, amphetamine (on ADDERALL FOR ADHD). Alcohol negative. He was intubated sedated. CXR with no acute process identified.Head CT= significant areas of infarction in the right frontal, temporal, and cerebellar regions as well as a small area of subarachnoid hemorrhage in the superior right parietal region. Patient has early 3 mm of midline shift as well as effacement on the right. * Echo: "hyperdynamic left ventricular function and what appears to be aortic valve vegetations and I measured to be approximally 0.9 x 8.8 cm. This is associated with what appears to be severe aortic regurgitation. There is no pericardial effusion. Right ventricular function is preserved." ID, neurosurgery consulted. Cultures pending. * Infectious disease: Initial cultures sputum :gram-positive cocci pairs and clusters, blood culture gram-positive cocci. CXR worsening. Patient continued on vancomycin, Rocephin, following cultures. * Neurosurgery: Patient with multiple acute septic CVAs, cerebral edema, small subarachnoid hemorrhage, midline shift, metabolic encephalopathy. Follow-up CT , repeat CT for any changes in neuro status. Continue 3% saline, keep sodium elevated ADDITIONAL OUT PT HX PER DOCUMENTS/ RXs PROVIDED BY FAMILY: * EKG, lower spine x-rays per Dr. Prather 07/09/16 * 09/07/16 RX ibuprofen TO replace meloxicam for joint pain, + Adderall 30 mg daily ([facility] pharmacy) * 09/13/16 RX omeprazole, clindamycin 150 mg 4 tablets twice a day, acyclovir 200 mg 1 by mouth 5 times a day [address] Herrera ([facility] pharmacy) * 09/14/16- RX prednisone Dr. Prather, doxycycline 100 mg 1 by mouth every 12 hours; family reports diagnosed with a "viral illness 09/17" ([facility] pharmacy) * 09/[address] Bj Luis Tylenol 3 quantity 20, acyclovir 200 mg 1 by mouth 5 times a day 10 days * s/p tracheostomy, PEG tube week of 10/15/16 * During clinical course through September patient was some neurological improvement at some point weaning off sedation following commands, localizing, arousable though with ongoing episodes of agitation requiring various sedatives including Precedex, fentanyl, Diprivan. * Follow-up CT identified small brain hemorrhage; at that point patient was not a candidate for cardiac surgical intervention. CTS evaluated and noted patient would require at least 4 weeks on antibiotics, and at least 6 weeks out from brain hemorrhage before surgical intervention could be considered (follow-up CT brain stable) * Repeat echo again noted aortic vegetation, with possible perforation of aortic valve leaflets; CVS again reconsulted to consider surgery patient continues to have episodes of pulmonary edema felt to be secondary to severe aortic valve insufficiency. Concern that without surgical intervention patient may not tolerate ventilator weaning due to cardiac status. During periods of sedation weaning patient is following commands. At one point off of mechanical vent tolerating T piece for couple of days at a time though required ventilation again due to pulmonary edema, hypoxic respiratory failure. CVS reevaluation determines not a good surgical candidate, he was evaluated by [facility], subsequently declined. [facility] excepted for evaluation and possible valve replacement. * Was transferred to [facility] 10/31/16. Family/friend interactions call to mother Felicita-- provided update on current conditions, assessments. She has been in touch w other facilities RE possible transfer for surgery, appreciative of Dr Coats speaking w facility in [place] today. Goals remain aggressive, she wishes to cont whatever tx available to help Slim, she is still hopeful he might be able to receive valve surgery. Call to sister Anay, KORINA left. . Advance Directives Living Will: Never completed Health Care Surrogate: Never completed Durable Power of Chief Jailer: Never completed Objective Vital Signs Date Time Temp Pulse Resp B/P Pulse Ox O2 Delivery O2 Flow Rate FiO2 11/07/16 08:03 97 40 11/07/16 08:00 40 11/07/16 08:00 127 11/07/16 08:00 99.6 127 17 122/58 100 11/07/16 07:00 100 Mechanical Ventilator 40 11/07/16 04:45 99 40 11/07/16 04:00 136 11/07/16 04:00 99.7 136 29 144/64 100 11/07/16 04:00 40 11/07/16 00:37 100 40 11/07/16 00:00 40 11/07/16 00:00 100.4 94 15 103/51 100 11/07/16 00:00 94 11/06/16 20:00 108 11/06/16 20:00 100.4 108 15 111/53 98 11/06/16 20:00 40 11/06/16 19:36 100 40 11/06/16 19:00 99 Mechanical Ventilator 40 11/06/16 16:57 97 40 11/06/16 16:00 114 11/06/16 16:00 40 11/06/16 16:00 98.9 114 17 115/56 97 11/06/16 12:56 99 40 11/06/16 12:00 40 11/06/16 12:00 102 11/06/16 12:00 99.7 102 15 103/57 98 Intake & Output 11/07/16 11/07/16 07:00 19:00 Intake Total 2474 ml Output Total 1800 ml Balance 674 ml Intake IV Total 1630 ml Tube Feeding 724 ml Other 120 ml Output Urine Total 1525 ml Stool Total 275 ml Physical Exam CONSTITUTIONAL/GENERAL: This is an adequately nourished patient, [facility] TUBES/LINES/DRAINS: Left subclavian central line, Jerez catheter, PEG tube, rectal drain, SCDs SKIN: No jaundice, rashes, or lesions.No wounds seen anteriorly. Reported stage III wound to sacrum not visualized. Skin temperature warm, dry. EYES: Eyes open, not tracking. Pupils 3 mm, slight reaction to light. No scleral icterus. No injection or drainage. Fundi not examined. ENT: Nose without bleeding or purulent drainage. Mouth closed, + some dried secretions visible around lips. NECK: Trachea, tracheostomy midline. Supple, nontender. CARDIOVASCULAR: Regular rate and rhythm without murmurs. Peripheral pulses symmetric. RESPIRATORY/CHEST: Symmetric, unlabored respirations via tracheostomy to mechanical vent. Some scattered rhonchi throughout. Breath sounds equal bilaterally. GASTROINTESTINAL: Abdomen soft, flat, no apparent tenderness though limited assessment, nondistended. No hepato-splenomegaly, or palpable masses. Bowel sounds present. Tube feeding in infusing via PEG. + Loose brown stool present in rectal drain. NEUROLOGICAL: Sedated on mechanical vent. Eyes open, does not track examiner. Observe moving extremities spontaneously, does not follow commands. Appears comfortable. PSYCHIATRIC: No obvious anxiety/depression--limited assessment due to clinical condition, sedatives. . Diagnostic Tests Laboratory Laboratory Tests Test 11/04/16 11/04/16 11/05/16 11/05/16 13:13 21:15 02:25 09:30 Urine Color YELLOW (YELLW/STRAW) Urine Turbidity CLEAR (CLEAR) Urine pH 5.5 (5.0-8.5) Urine Specific [place] 1.014 (1.002-1.035) Urine Protein 30 mg/dL (NEG-TRACE) Urine Glucose (UA) NEG mg/dL (NEG) Urine Ketones NEG mg/dL (NEG) Urine Occult Blood MOD (NEG) Urine Nitrite NEG (NEG) Urine Bilirubin NEG (NEG) Urine Urobilinogen LESS THAN 2.0 MG/DL (LESS THAN 2.0) Urine Leukocyte Esterase NEG (NEG) Urine RBC 126 /hpf (0-3) Urine WBC 1 /hpf (0-5) Urine Squamous Epithelial <1 /hpf (0-5) Cells Urine Bacteria RARE /hpf (NONE) Urine Hyaline Casts 3 /lpf (RARE) Urine Mucus FEW /lpf (OCC) Microscopic Urinalysis Comment CULT NOT INDICATED Potassium Level 3.0 MEQ/L 3.4 MEQ/L 3.6 MEQ/L (3.5-5.1) (3.5-5.1) (3.5-5.1) White Blood Count 9.2 TH/MM3 (4.0-11.0) Red Blood Count 2.44 MIL/MM3 (4.50-5.90) Hemoglobin 7.0 GM/DL (13.0-17.0) Hematocrit 21.1 % (39.0-51.0) Mean Corpuscular Volume 86.8 FL (80.0-100.0) Mean Corpuscular Hemoglobin 28.6 PG (27.0-34.0) Mean Corpuscular Hemoglobin 32.9 % Concent (32.0-36.0) Red Cell Distribution Width 15.3 % (11.6-17.2) Platelet Count 217 TH/MM3 (150-450) Mean Platelet Volume 8.4 FL (7.0-11.0) Sodium Level 145 MEQ/L (136-145) Chloride Level 105 MEQ/L (98-107) Carbon Dioxide Level 32.0 MEQ/L (21.0-32.0) Anion Gap 8 MEQ/L (5-15) Blood Urea Nitrogen 42 MG/DL (7-18) Creatinine 1.03 MG/DL (0.60-1.30) Estimat Glomerular Filtration 87 ML/MIN (>89) Rate Random Glucose 119 MG/DL (74-106) Calcium Level 8.4 MG/DL (8.5-10.1) Test 11/05/16 11/06/16 11/06/16 11/06/16 21:58 03:40 05:00 14:10 Magnesium Level 2.4 MG/DL (1.5-2.5) White Blood Count 11.1 TH/MM3 (4.0-11.0) Red Blood Count 2.32 MIL/MM3 (4.50-5.90) Hemoglobin 6.7 GM/DL 7.3 GM/DL (13.0-17.0) (13.0-17.0) Hematocrit 20.0 % 22.1 % (39.0-51.0) (39.0-51.0) Mean Corpuscular Volume 86.3 FL (80.0-100.0) Mean Corpuscular Hemoglobin 28.9 PG (27.0-34.0) Mean Corpuscular Hemoglobin 33.5 % Concent (32.0-36.0) Red Cell Distribution Width 14.9 % (11.6-17.2) Platelet Count 212 TH/MM3 (150-450) Mean Platelet Volume 8.5 FL (7.0-11.0) Neutrophils (%) (Auto) 80.3 % (16.0-70.0) Lymphocytes (%) (Auto) 10.6 % (9.0-44.0) Monocytes (%) (Auto) 3.8 % (0.0-8.0) Eosinophils (%) (Auto) 4.3 % (0.0-4.0) Basophils (%) (Auto) 1.0 % (0.0-2.0) Neutrophils # (Auto) 8.9 TH/MM3 (1.8-7.7) Lymphocytes # (Auto) 1.2 TH/MM3 (1.0-4.8) Monocytes # (Auto) 0.4 TH/MM3 (0-0.9) Eosinophils # (Auto) 0.5 TH/MM3 (0-0.4) Basophils # (Auto) 0.1 TH/MM3 (0-0.2) CBC Comment DIFF FINAL Differential Comment Sodium Level 146 MEQ/L (136-145) Potassium Level 3.4 MEQ/L 3.8 MEQ/L (3.5-5.1) (3.5-5.1) Chloride Level 108 MEQ/L (98-107) Carbon Dioxide Level 32.0 MEQ/L (21.0-32.0) Anion Gap 6 MEQ/L (5-15) Blood Urea Nitrogen 40 MG/DL (7-18) Creatinine 1.01 MG/DL (0.60-1.30) Estimat Glomerular Filtration 89 ML/MIN (>89) Rate Random Glucose 113 MG/DL (74-106) Calcium Level 8.5 MG/DL (8.5-10.1) Total Bilirubin 0.4 MG/DL (0.2-1.0) Aspartate Amino Transf 28 U/L (15-37) (AST/SGOT) Alanine Aminotransferase 63 U/L (12-78) (ALT/SGPT) Alkaline Phosphatase 69 U/L (45-117) Total Protein 7.1 GM/DL (6.4-8.2) Albumin 2.7 GM/DL (3.4-5.0) Blood Type O NEGATIVE Antibody Screen NEGATIVE Crossmatch Leukocyte-Reduced Red Blood Cells Blood Bank Comment Test 11/07/16 04:00 White Blood Count 13.4 TH/MM3 (4.0-11.0) Red Blood Count 2.64 MIL/MM3 (4.50-5.90) Hemoglobin 7.5 GM/DL (13.0-17.0) Hematocrit 22.5 % (39.0-51.0) Mean Corpuscular Volume 85.4 FL (80.0-100.0) Mean Corpuscular Hemoglobin 28.3 PG (27.0-34.0) Mean Corpuscular Hemoglobin 33.1 % Concent (32.0-36.0) Red Cell Distribution Width 15.9 % (11.6-17.2) Platelet Count 249 TH/MM3 (150-450) Mean Platelet Volume 8.4 FL (7.0-11.0) Sodium Level 144 MEQ/L (136-145) Potassium Level 3.7 MEQ/L (3.5-5.1) Chloride Level 106 MEQ/L (98-107) Carbon Dioxide Level 30.8 MEQ/L (21.0-32.0) Anion Gap 7 MEQ/L (5-15) Blood Urea Nitrogen 42 MG/DL (7-18) Creatinine 0.98 MG/DL (0.60-1.30) Estimat Glomerular Filtration 92 ML/MIN (>89) Rate Random Glucose 105 MG/DL (74-106) Calcium Level 8.8 MG/DL (8.5-10.1) Result Diagram: 11/07/16 0400 11/07/16 0400 Microbiology Microbiology Date/Time Procedure Status Source Growth 11/04/16 12:45 Aerobic Blood Culture - Preliminary Resulted Blood Line NO GROWTH IN 2 DAYS 11/04/16 12:45 Anaerobic Blood Culture - Preliminary Resulted Blood Line NO GROWTH IN 2 DAYS 11/04/16 12:55 Aerobic Blood Culture - Preliminary Resulted Blood Peripheral NO GROWTH IN 2 DAYS 11/04/16 12:55 Anaerobic Blood Culture - Preliminary Resulted Blood Peripheral NO GROWTH IN 2 DAYS Imaging Last Impressions Chest X-Ray 11/05/16 0000 Signed Impressions: Service Date/Time: Saturday, November 05, 2016 17:34 - CONCLUSION: Increasing air bronchograms retrocardiac region the left. Jair Coello MD FACR Procedures 6/5tracheostomy, PEG tube . Assessment and Plan Disease Oriented Problem List: (1) Aortic valve endocarditis (2) CVA (cerebral vascular accident) Comment: multiple CVAs, Septic Intracerebral emboli (3) Cerebral septic emboli (4) Aortic valve insufficiency Comment: severe (5) CHF (congestive heart failure) Comment: secondary to valvulopathy . (6) Acute on chronic respiratory failure with hypoxia (7) Encephalopathy (8) Intracranial hemorrhage Comment: Hemorrhagic conversion of prior CVAs (9) Previous IVDU (10) Severe protein-calorie malnutrition Symptom Scale: (1) Dyspnea (2) Encephalopathy (3) Agitation (4) Pain (5) Malnutrition Pertinent Non-Medical Issues Psychosocial:originally from [place], lived in [place] since . education. Was incarcerated and then in drug rehabilitation in [facility]. 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 Has 1 sister Elizabeth (Anay) ,lives in [place], mother lives in [place]. Father (parents ) lived in [place] with support from family there. Supported by local friends, coworkers, apartment landlord. Spiritual:believes in God, no particular affiliation. would want ongoing pilot plant research technician support. Legal:Patient is not able to participate in decision-making due to clinical condition. He is not . Per [place] statutes his parents would be legal decision makers, mother is serving as primary supported by his sister and father. Mother has POA paperwork, however this does NOT include medical decision making. Ethical issues impacting care: Important Contacts mother Felicita Roberts [phone] sister Elizabeth Rios [phone] father Pradeep Rios [phone] . Prognosis This unfortunate 26-year-old man initially presented to the ED in September with altered mental status, he has been found to have mixed septic/cardiogenic shock with multiple areas of septic emboli CVA secondary to aortic valve endocarditis. He then developed a small ICH. He has had prolonged ICU course, with episodes of agitation, pulmonary edema and hypoxic respiratory failure, 2/ 2 to severe aortic valve insufficiency. + Aortic valve leaflet perforations. CVS evaluated here for possible valve replacement, patient not felt to be good surgical candidate. Was declined by [facility]. Was transferred and evaluated by [facility] at [facility] last week, also declined due to not felt to be good surgical candidate, transferred back to [facility] 11/03/16. Remains in critical condition, medical treatments maximized. Patient with very poor chance of survival without a valve replacement, and is currently not a candidate for a valve due to poor clinical condition. Not felt likely to improve enough to obtain valve replacement. High risk for ongoing clinical complications and . . Code Status: No Code Plan * Legal decision maker: Patient is not able to participate in decision-making due to clinical condition. He is not . Per [place] statutes his parents would be legal decision makers, mother is serving as primary supported by his sister and father. Mother has POA paperwork however this does not include medical decision-making. * Goals: During prior palliative consultation and multiple interactions palliative has met w pt mother, father, sister at length. Patient sister appears to have a reasonable understanding of conditions, prognosis. Patient mother , father appear to have a very simple understanding of conditions and prognosis. At that time family's goals were aggressive, Patient's mother is hoping for a miracle and wants to continue whatever measures available to help patient recover. 11/05/16: Family wishes to continue maximize medical treatments with the hopes of patient condition may possibly improve enough to be considered for valve replacement; they understand he is high risk for not improving, further complications, clinical deterioration. Mother endorses she continues to pray for pt and is hoping for a miracle. She is also looking at various other facilities for possible transfer /evaluation for valve, she is currently looking into/contacting hospital [facility] with [facility] ([facility]), she is hoping to find a surgeon willing to attempt a valve on her son. 11/06/16: Goals remain aggressive. 11/07/16: goals remain aggressive, mother still exploring possible transfer options for surgery elsewhere * CODE STATUS: DNR * SYMPTOMS: --dyspnea- intubated for AMS. remains on mech vent; status post tracheostomy. has had difficulty weaning off of vent/staying off of vent due to agitation, pulmonary edema 2/2 severe aortic valve insufficiency -- agitation- hx substance abuse; hx ADD, on adderall. + Embolic CVA, +new hemorrhage 6/6 to the right temporal lobe (follow-up CT imaging stable) Has had periods of restlessness, agitation ongoing during prolonged hospital course. Has been on various sedatives including Precedex, Diprivan, fentanyl. Has at times when lightened and able to follow commands, moved all 4 extremities. Currently on Geodon 10mg IM Q 12 hr, fentanyl 250/mcgs hr, diprivan 50 mcgs/kg/ min-- restless today during exam. not following commands. -- encephalopathy- multifactorial-- +sepsis, embolic CVA, +new hemorrhage 6/ 6 to the right temporal lobe (follow-up CT imaging stable) hx substance abuse, EEG neg seizure . -- malnutrition -- s/p PEG (replaced by GI 11/05 due to pt dislodging) . Ongoing TF. albumin 3.1 --Pain: Potential sources would include: History of degenerative disc disease ; has had prolonged bedbound status during > 1 month hospitalization, + stage III wounds to coccyx.started on ATC Oxycodone 10mg per tube q4h scheduled * Palliative care will continue to follow during hospital course as condition evolves, to assist patient/decision-maker with understanding of medical conditions, weighing benefits/burdens of treatment options, for clarification of goals of treatment. Additionally will assist with any symptoms of palliative concern Attestation To help prompt me to consider important information that might be impacting today's encounter and assessment, information from prior notes written by myself or my colleagues may have been "brought forward" into today's note. My signature on this note, however, is an attestation that I personally performed the exam, history, and/or decision-making noted today, and, unless otherwise indicated, the interactions with patient, family, and staff as well as the review of records all occurred today. I also attest that the listed assessment and stated plan reflect my best clinical judgment today based on the combination of historical information, prior notes, and today's exam/ interactions. When time spent is documented, it refers only to time spent today by the signer, or if indicated, combined time spent today by collaborating physician/nurse practitioner. Sandy Liu Nov 07, 2016 10:35
--- NOTE | 2016-11-07 12:18 | HHI.IDPN ---
Note Infectious Disease Note Patient is sedated. Sleeping. RN notes that he just fell asleep. Was restless and grimacing earlier. Low grade fever. BP stable. On vent 40% FIO2. 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 Post tracheostomy and PEG. Allergies: Coded Allergies: Hydrocodone (Verified Allergy, Unknown, Nausea/Vomiting, 10/04/16) Mother called Dentist to verify Sulfa (Verified Allergy, Unknown, 09/30/16) Toradol (Verified Allergy, Unknown, 09/30/16) Past Medical History Substance abuse ADHD Degenerative disc disease ANTIBIOTICS: Oxacillin. Physical Exam Vital Signs Date Time Temp Pulse Resp B/P Pulse Ox O2 Delivery O2 Flow Rate FiO2 11/07/16 12:08 99 40 11/07/16 08:03 97 40 11/07/16 08:00 40 11/07/16 08:00 127 11/07/16 08:00 99.6 127 17 122/58 100 11/07/16 07:00 100 Mechanical Ventilator 40 11/07/16 04:45 99 40 11/07/16 04:00 136 11/07/16 04:00 99.7 136 29 144/64 100 11/07/16 04:00 40 11/07/16 00:37 100 40 11/07/16 00:00 40 11/07/16 00:00 100.4 94 15 103/51 100 11/07/16 00:00 94 11/06/16 20:00 108 11/06/16 20:00 100.4 108 15 111/53 98 11/06/16 20:00 40 11/06/16 19:36 100 40 11/06/16 19:00 99 Mechanical Ventilator 40 11/06/16 16:57 97 40 11/06/16 16:00 114 11/06/16 16:00 40 11/06/16 16:00 98.9 114 17 115/56 97 11/06/16 12:56 99 40 11/06/16 11/06/16 11/07/16 15:00 23:00 07:00 Intake Total 1197 ml 1398 ml 1076 ml Output Total 2250 ml 700 ml 1100 ml Balance -1053 ml 698 ml -24 ml Intake IV Total 435 ml 973 ml 657 ml Tube Feeding 662 ml 365 ml 359 ml Other 100 ml 60 ml 60 ml Output Urine Total 2250 ml 525 ml 1000 ml Stool Total 0 ml 175 ml 100 ml Laboratory Tests Test 11/06/16 11/06/16 11/07/16 03:40 14:10 04:00 White Blood Count 11.1 TH/MM3 13.4 TH/MM3 Red Blood Count 2.32 MIL/MM3 2.64 MIL/MM3 Hemoglobin 6.7 GM/DL 7.3 GM/DL 7.5 GM/DL Hematocrit 20.0 % 22.1 % 22.5 % Mean Corpuscular Volume 86.3 FL 85.4 FL Mean Corpuscular Hemoglobin 28.9 PG 28.3 PG Mean Corpuscular Hemoglobin 33.5 % 33.1 % Concent Red Cell Distribution Width 14.9 % 15.9 % Platelet Count 212 TH/MM3 249 TH/MM3 Mean Platelet Volume 8.5 FL 8.4 FL Neutrophils (%) (Auto) 80.3 % Lymphocytes (%) (Auto) 10.6 % Monocytes (%) (Auto) 3.8 % Eosinophils (%) (Auto) 4.3 % Basophils (%) (Auto) 1.0 % Neutrophils # (Auto) 8.9 TH/MM3 Lymphocytes # (Auto) 1.2 TH/MM3 Monocytes # (Auto) 0.4 TH/MM3 Eosinophils # (Auto) 0.5 TH/MM3 Basophils # (Auto) 0.1 TH/MM3 CBC Comment DIFF FINAL Differential Comment Laboratory Tests Test 11/05/16 11/06/16 11/06/16 11/07/16 21:58 03:40 14:10 04:00 Magnesium Level 2.4 MG/DL Sodium Level 146 MEQ/L 144 MEQ/L Potassium Level 3.4 MEQ/L 3.8 MEQ/L 3.7 MEQ/L Chloride Level 108 MEQ/L 106 MEQ/L Carbon Dioxide Level 32.0 MEQ/L 30.8 MEQ/L Anion Gap 6 MEQ/L 7 MEQ/L Blood Urea Nitrogen 40 MG/DL 42 MG/DL Creatinine 1.01 MG/DL 0.98 MG/DL Estimat Glomerular Filtration 89 ML/MIN 92 ML/MIN Rate Random Glucose 113 MG/DL 105 MG/DL Calcium Level 8.5 MG/DL 8.8 MG/DL Total Bilirubin 0.4 MG/DL Aspartate Amino Transf 28 U/L (AST/SGOT) Alanine Aminotransferase 63 U/L (ALT/SGPT) Alkaline Phosphatase 69 U/L Total Protein 7.1 GM/DL Albumin 2.7 GM/DL Microbiology Date/Time Procedure Status Source Growth 11/04/16 12:45 Aerobic Blood Culture - Preliminary Resulted Blood Line NO GROWTH IN 3 DAYS 11/04/16 12:45 Anaerobic Blood Culture - Preliminary Resulted Blood Line NO GROWTH IN 3 DAYS 11/04/16 12:55 Aerobic Blood Culture - Preliminary Resulted Blood Peripheral NO GROWTH IN 3 DAYS 11/04/16 12:55 Anaerobic Blood Culture - Preliminary Resulted Blood Peripheral NO GROWTH IN 3 DAYS IMAGING: Chest X-Ray 11/03/16 0000 Signed Impressions: Service Date/Time: Thursday, November 03, 2016 10:48 - CONCLUSION: Improving aeration of the lung preciado compared to the prior study. Omari Moya MD GENERAL: Patient is in no acute distress. Restless. Awake. HEENT: EOMI, No icterus. No conjunctival erythema. NECK: Supple.No adenopathy. LUNGS: Bilateral rhonchi. CARDIAC: Regular rate and rhythm. (+) 4/6 DALILA LSB. ABDOMEN: Soft, non tender. EXTREMITIES: No CCE. No embolic phenomena. SKIN: No rash. Laboratory Tests Test 11/03/16 11/04/16 12:20 04:33 Nasal Screen MRSA (PCR) MRSA NOT DETECTED White Blood Count 11.6 Red Blood Count 2.51 Hemoglobin 7.2 Hematocrit 21.9 Mean Corpuscular Volume 87.0 Mean Corpuscular Hemoglobin 28.8 Mean Corpuscular Hemoglobin 33.1 Concent Red Cell Distribution Width 15.2 Platelet Count 208 Mean Platelet Volume 9.0 Sodium Level 144 Potassium Level 2.4 Chloride Level 106 Carbon Dioxide Level 30.4 Anion Gap 8 Blood Urea Nitrogen 44 Creatinine 1.08 Estimat Glomerular Filtration 83 Rate Random Glucose 124 Calcium Level 8.8 Imaging Chest X-Ray 11/03/16 0000 Signed Impressions: Service Date/Time: Thursday, November 03, 2016 10:48 - CONCLUSION: Improving aeration of the lung preciado compared to the prior study. Omari Moya MD Assessment and Plan IMPRESSION MSSA AV endocarditis. Last positive blood culture 10/04/16. - with severe AI, [employer] EX[employer] OPERATIONS AGENT septic embolic lesions, abscess. Respiratory failure S/P trach Recent Enterobacter PNA - treated. Cassandra in UC 10/30 Treated. Low grade temps, ?new nosocomial infection. RECOMMENDATION Continue IV Oxacillin2 gm Q 4 hours. Sputum culture. Monitor temps and WBC. Monitor blood cultures. Monitor clinical progress. Hopefully can have AV valve replacement. Otherwise outlook is poor. Nemesio Jackson MD Nov 07, 2016 12:18
[2016-11-07] MEDS: PANTOPRAZOLE SODIUM 40 MG VIAL IV PUSH SCH (14:21)
--- NOTE | 2016-11-07 14:27 | HHI.GIFU ---
Subjective Remarks PT resting in bed, trach to vent, in no apparent distress. Per RN he is tolerating TF, making stool. Objective Vitals I&O Vital Signs Date Time Temp Pulse Resp B/P Pulse Ox O2 Delivery O2 Flow Rate FiO2 11/07/16 12:08 99 40 11/07/16 12:00 98.7 92 15 104/46 98 11/07/16 12:00 92 11/07/16 12:00 40 11/07/16 08:03 97 40 11/07/16 08:00 40 11/07/16 08:00 127 11/07/16 08:00 99.6 127 17 122/58 100 11/07/16 07:00 100 Mechanical Ventilator 40 11/07/16 04:45 99 40 11/07/16 04:00 136 11/07/16 04:00 99.7 136 29 144/64 100 11/07/16 04:00 40 11/07/16 00:37 100 40 11/07/16 00:00 40 11/07/16 00:00 100.4 94 15 103/51 100 11/07/16 00:00 94 11/06/16 20:00 108 11/06/16 20:00 100.4 108 15 111/53 98 11/06/16 20:00 40 11/06/16 19:36 100 40 11/06/16 19:00 99 Mechanical Ventilator 40 11/06/16 16:57 97 40 11/06/16 16:00 114 11/06/16 16:00 40 11/06/16 16:00 98.9 114 17 115/56 97 I/O 11/06/16 11/06/16 11/06/16 11/07/16 11/07/16 11/07/16 07:00 15:00 23:00 07:00 15:00 23:00 Intake Total 894 ml 1197 ml 1398 ml 1076 ml 1167 ml Output Total 1650 ml 2250 ml 700 ml 1100 ml 1250 ml Balance -756 ml -1053 ml 698 ml -24 ml -83 ml Intake IV Total 553 ml 435 ml 973 ml 657 ml 532 ml Tube Feeding 341 ml 662 ml 365 ml 359 ml 535 ml Other 100 ml 60 ml 60 ml 100 ml Output Urine Total 1300 ml 2250 ml 525 ml 1000 ml 1250 ml Stool Total 350 ml 0 ml 175 ml 100 ml 0 ml Laboratory Laboratory Tests Test 11/07/16 04:00 White Blood Count 13.4 Red Blood Count 2.64 Hemoglobin 7.5 Hematocrit 22.5 Mean Corpuscular Volume 85.4 Mean Corpuscular Hemoglobin 28.3 Mean Corpuscular Hemoglobin 33.1 Concent Red Cell Distribution Width 15.9 Platelet Count 249 Mean Platelet Volume 8.4 Sodium Level 144 Potassium Level 3.7 Chloride Level 106 Carbon Dioxide Level 30.8 Anion Gap 7 Blood Urea Nitrogen 42 Creatinine 0.98 Estimat Glomerular Filtration 92 Rate Random Glucose 105 Calcium Level 8.8 Date/Time Procedure Status Source Growth 11/04/16 12:55 Aerobic Blood Culture - Preliminary Resulted Blood Peripheral NO GROWTH IN 3 DAYS 11/04/16 12:55 Anaerobic Blood Culture - Preliminary Resulted Blood Peripheral NO GROWTH IN 3 DAYS Imaging Last Impressions Chest X-Ray 11/05/16 0000 Signed Impressions: Service Date/Time: Saturday, November 05, 2016 17:34 - CONCLUSION: Increasing air bronchograms retrocardiac region the left. Jair Coello MD FACR Physical Exam HEENT: PERRL; normocephalic; atraumatic; no jaundice. CHEST: Coarse CARDIAC: RRR ABDOMEN: Soft, nondistended, nontender; no hepatosplenomegaly; bowel sounds are present in all four quadrants. PEG site free of redness, swelling, warmth EXTREMITIES: No clubbing, cyanosis, or edema. SKIN: Normal; no rash; no jaundice. LIME KILN TENDER: somnolent. Assessment and Plan Plan ASSESSMENT: - Malfunctioning PEG tube. PEG tube was dislodged. This was replaced with #20 replacement gastrostomy tube without difficulty, gastric secretions in return. He is tolerating TF. - Anemia with drop in Hgb. Pt has been anemic with intermittent drops. We evaluated him on 10/31 for the same. He was also evaluated was evaluated with EGD with PEG tube placement (10/17/16)-----> The upper, middle, and distal third of the esophagus were carefully inspected and no abnormalities were noted. The z-line was well seen at the GEJ. The endoscope was pushed into the fundus which was normal including a retroflexed view. The antrum, first and second part of the duodenum were unremarkable, PEG placed successfully. The nurse has not seen any active bleeding. I stopped the TF, flushed the G tube and aspirated TF material with no obvious blood. He has not had a bowel movement. PPI. HH went from 7.0/21.1 to 6.7/20.0. 1 unit of PRBC has been ordered. - Dysphagia, Malnutrition. S/P EGD with PEG tube placement (10/17/16)-----> The upper, middle, and distal third of the esophagus were carefully inspected and no abnormalities were noted. The z-line was well seen at the GEJ. The endoscope was pushed into the fundus which was normal including a retroflexed view. The antrum, first and second part of the duodenum were unremarkable, PEG placed successfully. Tolerating TF. Item Repair Manager recommends Nepro to 50 mls/hr to meet nutritional needs. - Aortic valve endocarditis with severe aortic insufficiency with probable AV perforation and multiple acute septic CVA, brain abscesses with small SAH, right temporal hemorrhagic conversion. He was considered high risk for valve replacement here. He was then tx to [facility] for second opinion, but deemed not to be a candidate and was therefore transferred back. Oxacillin. - Acute respiratory failure with pulmonary edema. Bumex/Vent per primary - Fevers secondary to above. Oxacillin per ID/CCM. PLAN - TF as tolerated - Protonix 40mg IV daily - Monitor HH - Transfuse as necessary - Notify GI of any active bleeding - GI will sign off, please reconsult if needed - Pt seen and examined by Dr. Brito and myself and this note is written on his behalf Anju Graves Nov 07, 2016 14:27
[2016-11-08] VITALS (16 sets, daily range): BP systolic 92–117; BP diastolic 46–61; PULSE 88–118; RESP 15–18; TEMP 98.6–99.2; O2SAT 98–100
[2016-11-08] MEDS: oxyCODONE HCL ORAL CONC 20 MG/ML SYRINGE PO SCH ×6 (03:29→22:39)
[2016-11-08] MEDS: ZIPRASIDONE MESYLATE 20 MG VIAL IM SCH ×3 (03:29→18:11)
[2016-11-08] MEDS: BUMETANIDE INJ 1 MG/4 ML VIAL IV PUSH SCH ×3 (03:45→19:39)
[2016-11-08] MEDS: OXACILLIN INJ 2 GM in SODIUM CHLORIDE 0.9% INJ 100 ML IV SCH ×8 (03:45→23:18)
[2016-11-08] MEDS: METOPROLOL TARTRATE 25 MG TAB PO SCH ×5 (03:45→22:38)
[2016-11-08] MEDS ORDERED: EPINEPHrine HCL (1:10,000) 1 MG/10 ML SYRINGE ONE (03:53)
[2016-11-08] MEDS: CHLORHEXIDINE GLUCONATE 2 % 1 PACK (2 CLOTHS) TOP SCH (04:00)
[2016-11-08] MEDS ORDERED: MIDAZOLAM HCL 5 MG/ML VIAL (1 ML) IV PUSH ONE (04:00)
--- NOTE | 2016-11-08 04:59 | RADRPT ---
EXAM DATE/TIME: 11/08/2016 04:12 [facility] COMPARISON: MRI BRAIN W & W/O CONTRAST, October 25, 2016, 8:23. CT BRAIN W/O CONTRAST, October 27, 2016, 18:25. INDICATIONS : Follow up hemorrhage. RADIATION DOSE: 37.54 CTDIvol (mGy) MEDICAL HISTORY : Cardiovascular disease. IV Drug use SURGICAL HISTORY : None. ENCOUNTER: Subsequent ACUITY: 2 weeks PAIN SCALE: Non-responsive LOCATION: cranial TECHNIQUE: Multiple contiguous axial images were obtained of the head. Using automated exposure control and adj ustment of the mA and/or kV according to patient size, radiation dose was kept as low as reasonably a chievable to obtain optimal diagnostic quality images. DICOM format image data is available electro nically for review and comparison. FINDINGS: CEREBRUM: The density of the blood products in the right med convexity parietal region has decreased characteri stic of evolving blood products. The surrounding area of edema is stable. A smaller area of hemorrh age in the posterior left high parietal region is stable in size and density. There is persistent mi dline shift to ports the left, measuring 3 mm (previously measured 4 mm) no effacement of the lateral or 3rd ventricle. No new abnormalities seen. POSTERIOR FOSSA: The cerebellum and brainstem are intact. The 4th ventricle is midline. The cerebellopontine angle i s unremarkable. EXTRACRANIAL: The visualized portion of the orbits is intact. Rounded soft tissue opacity in the right sphenoid si nus, stable. SKULL: The calvaria is intact. No evidence of skull fracture. CONCLUSION: Stable size of the hemorrhages with surrounding edema right and left parietal regions. Slight decrea se in midline shift towards the left. Cayden Haile MD on November 08, 2016 at 4:51 Board Certified Radiologist. This report was verified electronically.
[2016-11-08 05:30] LABS: MEAN CELL VOLUME 85.3 FL (80.0-100.0); MEAN CORPUSCULAR HEMOGLOBIN 29.4 PG (27.0-34.0); MEAN CORPUSCULAR HGB CONC 34.5 % (32.0-36.0); PLATELET COUNT 225 TH/MM3 (150-450); RED BLOOD COUNT 2.25 MIL/MM3 (4.50-5.90); RED CELL DISTRIBUTION WIDTH 15.8 % (11.6-17.2); WHITE BLOOD COUNT 9.4 TH/MM3 (4.0-11.0)
[2016-11-08 05:38] LABS: REVIEW FLAG FINAL
[2016-11-08 05:46] LABS: HEMATOCRIT 19.2 % (39.0-51.0)
[2016-11-08 05:52] LABS: BICARBONATE 31.8 MEQ/L (21.0-32.0); POTASSIUM 3.3 MEQ/L (3.5-5.1)
--- NOTE | 2016-11-08 06:04 | RADRPT ---
EXAM DATE/TIME: 11/08/2016 04:24 [facility] COMPARISON: CHEST SINGLE AP, November 05, 2016, 17:34. INDICATIONS : Respiratory disease. MEDICAL HISTORY : Cardiovascular disease. Seizures. SURGICAL HISTORY : None. ENCOUNTER: Subsequent ACUITY: 1 month PAIN SCORE: Non-responsive. LOCATION: Bilateral chest FINDINGS: Diffuse bilateral hazy airspace opacities with out consolidation are similar in distribution and appe arance when compared to prior. Slight improvement in the consolidation left lower lung with some mil d air bronchograms persist. The right hemidiaphragm is well delineated. Left subclavian catheter ti p projects over the proximal superior vena cava. Tracheostomy in place. CONCLUSION: Persistent but slightly improved consolidation left lower lung. Diffuse hazy opacities in the centra l right lung. Cayden Haile MD on November 08, 2016 at 6:01 Board Certified Radiologist. This report was verified electronically.
[2016-11-08] MEDS: POTASSIUM CHLOR 40 MEQ PREMIX 100 ML IV PRN (06:17)
[2016-11-08] MEDS: PROPOFOL 1000 MG/100 ML INJ 100 ML IV SCH ×3 (07:31→19:39)
[2016-11-08] MEDS: fentaNYL DRIP 250 ML IV SCH (07:51)
[2016-11-08] MEDS: CHLORHEXIDINE 0.12% (ORAL KIT) 15 ML CUP MT SCH ×2 (07:51→19:52)
--- NOTE | 2016-11-08 11:22 | HHI.CCPN ---
Subjective Remarks/Hospital Course Note for 11/07/16: Hospital Course: Is a 26-year-old male well known to the critical care service who initially presented back in September 2016 with altered mental status and was found to have multiple septic intracerebral infarcts secondary to infective aortic valve endocarditis. His course was complicated by persistent respiratory failure requiring tracheostomy, intracerebral abscess, and severe aortic insufficiency with at least 4 episodes of flash pulmonary edema and near fatal hypoxic respiratory failure. He was evaluated by 2 cardio thoracic surgeons at this institution and deemed not to be a surgical candidate. He was then transferred to [facility] for an outside opinion, where cardiac thoracic surgery at that facility along with infectious disease and neurology at that facility deemed him to be not a surgical candidate. He reports to [facility] in transfer back from [facility]. He remained stable without change and acute clinical status. He is still intubated and encephalopathic. Additional history is unobtainable from the patient. Subjective: 11/04: agitation persists. cr slightly better. no significant change. ID prefers to change back to oxacillin. another long family discussion today: family has found a facility in [place] they are interested in transferring him to for 3rd opinion. 11/05: Patient remains heavily sedated with propofol and fentanyl for agitation. Severe agitation causes him to go into flash pulmonary edema. On sedation lightening patient moves uncontrollably. Otherwise have been stable overnight. 11/06: CXR with continued pulmonary interstitial edema and venous congestion. RV , PA enlarged consistent with chronic overload. Tmax 99. We have produced a prerenal azotemia appropriately so and oxygen diffusion remains acceptable. This remains uncompensated heart failure from a mechanical problem with a poor prognosis. 11/07: Continue present therapy. Try to slow heart rate with low dose lopressor. Appeared septic last night, less so now. Objective Vital Signs Date Time Temp Pulse Resp B/P Pulse Ox O2 Delivery O2 Flow Rate FiO2 11/08/16 10:54 98.6 91 15 92/46 100 11/08/16 08:00 40 11/08/16 07:00 Mechanical Ventilator Intake and Output 11/07/16 11/07/16 11/08/16 08:00 16:00 00:00 Intake Total 1076 ml 1167 ml 978 ml Output Total 1100 ml 1250 ml 350 ml Balance -24 ml -83 ml 628 ml Result Diagram: 11/08/16 0500 11/08/16 0500 Objective Remarks GENERAL: Young male, lying in bed, encephalopathic, trach in place, on a ventilator HEENT: Normocephalic. Atraumatic. Pupils equal, round, reactive, conjugate. Mucous membranes are moist NECK: Trachea is midline. Neck veins full. CHEST: Tracheostomy in place. Equal chest rise. Persistent bilateral crackles. CARDIOVASCULAR: Tachycardic rate, regular rhythm. Sinus by telemetry. ABDOMEN: Soft, nontender, nondistended. No guarding. PEG tube in place. BACK: Sacral decubitus. MUSCULOSKELETAL: Pulses 2+. No peripheral edema. NEUROLOGICAL: Opens eyes intermittently spontaneously. Tracks intermittently with his eyes but does not focus or follow.. Does not follow commands. Withdrawals 4 limbs, moves all extremities spontaneously. Left upper extremity minimal strength. A/P Assessment and Plan Assessment: This is a 26-year-old male with infective aortic valve endocarditis , intracerebral septic emboli with intracerebral abscess and hemorrhagic conversion of infarctions, severe CHF exacerbation secondary to valvulopathy, severe persistent encephalopathy, chronic respiratory failure. He re-presents from [facility] for ongoing management. Based on his echo, along with the input from outside hospital consultants, I agree with their assessment that he is likely not a surgical candidate at this time. At this point, without surgery, he would certainly , and with surgery, likely given his multiple medical comorbidities, he may . Given that he is young, I think it is reasonable to give the patient and additional 2 weeks to see if we can medically optimize him from a neurologic and cardiovascular standpoint. Likely this will be unsuccessful given that without surgical repair, the patient will not be able to stay out of heart failure. Patient is DNR now, but continue our aggressive medical management for an additional 2 weeks. If at that time he is not clinically improved, I think that we have a responsibility to the patient to pursue comfort measures at that time. Plan: Infective Aortic Valve Endocarditis -- Abx per ID, Continue IV Oxacillin -- Blood culture 2 from 11/04/16 negative to date -- daily cbc -- Culture for fevers. Severe CHF exacerbation secondary to valvulopathy Severe aortic valve insufficiency -- bumex 2mg iv q8hr -- repeat ISABEL 11/03: severe AI. preserved EF. left pleural effusion -- Pulmonary edema persists. Metabolic alkalosis -- diamox 500mg iv q8h completed --restart for alkalosis and K loss Severe Hypokalemia -- aggressive electrolyte replacement Severe Encephalopathy Septic Intracerebral emboli Multiple CVAs Hemorrhagic conversion of prior CVAs -- continue to hold anticoagulation -- frequent neuro checks Agitated Delirium -- propofol, fentanyl for goal RASS -2 -- add Geodon 10mg IM q8h prn Acute pain associated with decubitus ulcer -- Oxycodone 10mg per tube q4h scheduled Acute on chronic hypoxic respiratory failure -- diuresis as above -- continue PRVC -- CPAP/PS as tolerated -- Wean fio2 for spo2 > 90% Acute protein calorie malnutrition- severe -- continue TF Dispo: -- remain in the ICU. remains critically ill. the family is welcome to pursue inter-facility transfer if they choose. Addendum: Patient pulled out PEG. RN placed new Jerez. Overall impression: No change in poorly compensated cardiopulmonary status. Robert Cartagena MD Nov 08, 2016 11:22
--- NOTE | 2016-11-08 11:27 | HHI.CCPN ---
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 His course was complicated by persistent respiratory failure requiring tracheostomy, intracerebral abscess, and severe aortic insufficiency with at least 4 episodes of flash pulmonary edema and near fatal hypoxic respiratory failure. He was evaluated by 2 cardio thoracic surgeons at this institution and deemed not to be a surgical candidate. He was then transferred to [facility] for an outside opinion, where cardiac thoracic surgery at that facility along with infectious disease and neurology at that facility deemed him to be not a surgical candidate. He reports to [facility] in transfer back from [facility]. He remained stable without change and acute clinical status. He is still intubated and encephalopathic. Additional history is unobtainable from the patient. Subjective: 11/04: agitation persists. cr slightly better. no significant change. ID prefers to change back to oxacillin. another long family discussion today: family has found a facility in [place] they are interested in transferring him to for 3rd opinion. 11/05: Patient remains heavily sedated with propofol and fentanyl for agitation. Severe agitation causes him to go into flash pulmonary edema. On sedation lightening patient moves uncontrollably. Otherwise have been stable overnight. 11/06: CXR with continued pulmonary interstitial edema and venous congestion. RV , PA enlarged consistent with chronic overload. Tmax 99. We have produced a prerenal azotemia appropriately so and oxygen diffusion remains acceptable. This remains uncompensated heart failure from a mechanical problem with a poor prognosis. 11/07: Decreased heat rate and fever today. No improvement in neuro status. Objective Vital Signs Date Time Temp Pulse Resp B/P Pulse Ox O2 Delivery O2 Flow Rate FiO2 11/08/16 10:54 98.6 91 15 92/46 100 11/08/16 08:00 40 11/08/16 07:00 Mechanical Ventilator Intake and Output 11/07/16 11/07/16 11/08/16 08:00 16:00 00:00 Intake Total 1076 ml 1167 ml 978 ml Output Total 1100 ml 1250 ml 350 ml Balance -24 ml -83 ml 628 ml Result Diagram: 11/08/16 0500 11/08/16 0500 Objective Remarks GENERAL: Young male, lying in bed, encephalopathic, trach in place, on a ventilator HEENT: Normocephalic. Atraumatic. Pupils equal, round, reactive, conjugate. Mucous membranes are moist NECK: Trachea is midline. Neck veins full. CHEST: Tracheostomy in place, site clean. Equal chest rise. Persistent but decreased bilateral crackles. CARDIOVASCULAR: Tachycardic rate, regular rhythm. Sinus by telemetry. ABDOMEN: Soft, nontender, nondistended. No guarding. PEG tube in place. BACK: Sacral decubitus. MUSCULOSKELETAL: Pulses 2+. No peripheral edema. NEUROLOGICAL: Opens eyes intermittently spontaneously. Tracks intermittently with his eyes but does not focus or follow.. Does not follow commands. Withdrawals 4 limbs, moves all extremities spontaneously. Left upper extremity minimal strength. A/P Assessment and Plan Assessment: This is a 26-year-old male with infective aortic valve endocarditis , intracerebral septic emboli with intracerebral abscess and hemorrhagic conversion of infarctions, severe CHF exacerbation secondary to valvulopathy, severe persistent encephalopathy, chronic respiratory failure. He re-presents from [facility] for ongoing management. Based on his echo, along with the input from outside hospital consultants, I agree with their assessment that he is likely not a surgical candidate at this time. At this point, without surgery, he would certainly , and with surgery, likely given his multiple medical comorbidities, he may . Given that he is young, I think it is reasonable to give the patient and additional 2 weeks to see if we can medically optimize him from a neurologic and cardiovascular standpoint. Likely this will be unsuccessful given that without surgical repair, the patient will not be able to stay out of heart failure. Patient is DNR now, but continue our aggressive medical management for an additional 2 weeks. If at that time he is not clinically improved, I think that we have a responsibility to the patient to pursue comfort measures at that time. Plan: Infective Aortic Valve Endocarditis -- Abx per ID, Continue IV Oxacillin -- Blood culture 2 from 11/04/16 negative to date -- daily cbc -- Culture for fevers. Severe CHF exacerbation secondary to valvulopathy Severe aortic valve insufficiency -- bumex 2mg iv q8hr -- repeat ISABEL 11/03: severe AI. preserved EF. left pleural effusion -- Pulmonary edema persists. Metabolic alkalosis -- diamox 500mg iv q8h completed --restart for alkalosis and K loss Severe Hypokalemia -- aggressive electrolyte replacement Severe Encephalopathy Septic Intracerebral emboli Multiple CVAs Hemorrhagic conversion of prior CVAs -- continue to hold anticoagulation -- frequent neuro checks Agitated Delirium -- propofol, fentanyl for goal RASS -2 -- add Geodon 10mg IM q8h prn Acute pain associated with decubitus ulcer -- Oxycodone 10mg per tube q4h scheduled Acute on chronic hypoxic respiratory failure -- diuresis as above -- continue PRVC -- CPAP/PS as tolerated -- Wean fio2 for spo2 > 90% Acute protein calorie malnutrition- severe -- continue TF Dispo: -- remain in the ICU. remains critically ill. the family is welcome to pursue inter-facility transfer if they choose. Addendum: Patient pulled out PEG. RN placed new Jerez. Overall impression: CXR clearing after very aggressive diuresis. No fever X 36 hrs. Evaluation ongoing for valve replacement. Robert Cartagena MD Nov 08, 2016 11:27
--- NOTE | 2016-11-08 12:39 | HHI.IDPN ---
Note Infectious Disease Note Patient is sedated. Restless. Afebrile. BP stable. On vent 40% FIO2. 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 Post tracheostomy and PEG. Allergies: Coded Allergies: Hydrocodone (Verified Allergy, Unknown, Nausea/Vomiting, 10/04/16) Mother called Dentist to verify Sulfa (Verified Allergy, Unknown, 09/30/16) Toradol (Verified Allergy, Unknown, 09/30/16) Past Medical History Substance abuse ADHD Degenerative disc disease ANTIBIOTICS: Oxacillin. Physical Exam Vital Signs Date Time Temp Pulse Resp B/P Pulse Ox O2 Delivery O2 Flow Rate FiO2 11/08/16 10:54 98.6 91 15 92/46 100 11/08/16 08:00 40 11/08/16 08:00 112 11/08/16 08:00 98.9 106 15 117/58 100 11/08/16 07:47 100 40 11/08/16 07:00 100 Mechanical Ventilator 40 11/08/16 04:28 100 40 11/08/16 04:00 100 100 11/08/16 04:00 40 11/08/16 04:00 112 11/08/16 04:00 99.2 112 15 112/56 100 11/08/16 01:02 98 40 11/08/16 00:00 99.2 89 15 98/49 99 11/08/16 00:00 89 11/08/16 00:00 40 11/07/16 22:22 100 40 11/07/16 20:00 40 11/07/16 20:00 98.4 90 15 99/49 100 11/07/16 20:00 90 11/07/16 19:49 100 40 11/07/16 19:00 100 Mechanical Ventilator 40 11/07/16 16:03 96 40 11/07/16 16:00 99 11/07/16 16:00 40 11/07/16 16:00 99.0 99 15 112/51 96 11/07/16 11/07/16 11/08/16 15:00 23:00 07:00 Intake Total 1167 ml 978 ml 837 ml Output Total 1250 ml 350 ml 550 ml Balance -83 ml 628 ml 287 ml Intake IV Total 532 ml 360 ml 436 ml Tube Feeding 535 ml 558 ml 341 ml Other 100 ml 60 ml 60 ml Output Urine Total 1250 ml 350 ml 550 ml Stool Total 0 ml 0 ml 0 ml Laboratory Tests Test 11/06/16 11/07/16 11/08/16 14:10 04:00 05:00 Hemoglobin 7.3 GM/DL 7.5 GM/DL 6.6 GM/DL Hematocrit 22.1 % 22.5 % 19.2 % White Blood Count 13.4 TH/MM3 9.4 TH/MM3 Red Blood Count 2.64 MIL/MM3 2.25 MIL/MM3 Mean Corpuscular Volume 85.4 FL 85.3 FL Mean Corpuscular Hemoglobin 28.3 PG 29.4 PG Mean Corpuscular Hemoglobin 33.1 % 34.5 % Concent Red Cell Distribution Width 15.9 % 15.8 % Platelet Count 249 TH/MM3 225 TH/MM3 Mean Platelet Volume 8.4 FL 8.3 FL Laboratory Tests Test 11/06/16 11/07/16 11/08/16 14:10 04:00 05:00 Potassium Level 3.8 MEQ/L 3.7 MEQ/L 3.3 MEQ/L Sodium Level 144 MEQ/L 143 MEQ/L Chloride Level 106 MEQ/L 105 MEQ/L Carbon Dioxide Level 30.8 MEQ/L 31.8 MEQ/L Anion Gap 7 MEQ/L 6 MEQ/L Blood Urea Nitrogen 42 MG/DL 48 MG/DL Creatinine 0.98 MG/DL 0.99 MG/DL Estimat Glomerular Filtration 92 ML/MIN 91 ML/MIN Rate Random Glucose 105 MG/DL 92 MG/DL Calcium Level 8.8 MG/DL 8.8 MG/DL Microbiology Date/Time Procedure Status Source Growth 11/04/16 12:45 Aerobic Blood Culture - Preliminary Resulted Blood Line NO GROWTH IN 3 DAYS 11/04/16 12:45 Anaerobic Blood Culture - Preliminary Resulted Blood Line NO GROWTH IN 3 DAYS 11/04/16 12:55 Aerobic Blood Culture - Preliminary Resulted Blood Peripheral NO GROWTH IN 3 DAYS 11/04/16 12:55 Anaerobic Blood Culture - Preliminary Resulted Blood Peripheral NO GROWTH IN 3 DAYS IMAGING: Chest X-Ray 11/08/16 0400 Signed Impressions: Service Date/Time: October 04:24 - CONCLUSION: Persistent but slightly improved consolidation left lower lung. Diffuse hazy opacities in the central right lung. Cayden Haile MD Head CT 11/07/16 0000 Signed Impressions: Service Date/Time: October 04:12 - CONCLUSION: Stable size of the hemorrhages with surrounding edema right and left parietal regions. Slight decrease in midline shift towards the left. Cayden Halie MD Chest X-Ray 11/03/16 0000 Signed Impressions: Service Date/Time: Thursday, November 03, 2016 10:48 - CONCLUSION: Improving aeration of the lung preciado compared to the prior study. Omari Moya MD GENERAL: Patient is in no acute distress. Restless. In soft restraints. HEENT: EOMI, No icterus. No conjunctival erythema. NECK: Supple. No adenopathy. LUNGS: Bilateral rhonchi. CARDIAC: Regular rate and rhythm. (+) 4/6 DALILA LSB. ABDOMEN: Soft, non tender. EXTREMITIES: No CCE. No embolic phenomena. SKIN: No rash. Assessment and Plan IMPRESSION MSSA AV endocarditis. Last positive blood culture 10/04/16. - Severe AI, UI [employer] septic embolic lesions, abscess. Stable. Respiratory failure S/P trach Recent Enterobacter PNA - treated. Cassandra in UC 10/30 Treated. Low grade temps, ?new nosocomial infection. RECOMMENDATION Continue IV Oxacillin2 gm Q 4 hours. Monitor Temps and WBC. Monitor blood cultures. Monitor clinical progress. Hopefully can have AV valve replacement. Otherwise outlook is poor. Nemesio Jackson MD Nov 08, 2016 12:39
--- NOTE | 2016-11-08 13:44 | HHI.HCPN ---
Reason for visit a. To assist with evaluation and management of symptoms including: dyspnea, agitation, pain, encephalopathy , malnutrition b. To assist medical decision maker(s) with: better understanding of current medical conditions; weighing benefits/burdens of medical treatment options; making medical treatment decisions. Subjective/Interval History 26-year-old patient was re-admitted/transferred back to [facility] in 11/03 from [facility], for ongoing management of endocarditis , aortic valve vegetation. He was transferred to [facility] last week for second opinion regarding and cardiac thoracic surgery for aortic valve replacement. He was evaluated there by their infectious disease, neurology, they deemed him not to be a surgical candidate and thus he was transferred back to [facility]. He has remained stable without changes to his clinical status. Remains intubated, encephalopathic.Palliative care was reconsulted to assist with support to the family, continue with clarification of goals of treatment Patient seen and examined in ICU. No family at bedside. Also present Madison Cervantes LCSW. Tmax 99.2. BP 92-102/46-57. Hemoglobin 6.6, hematocrit 19.2. - Blood cultures no growth in [address] head stable size of hemorrhages with surrounding edema right and left parietal regions, slight decrease in midline shift towards the left. Chest xray persistent but slightly improved consolidation left lower lung, diffuse hazy opacities in central right lung. During visit, patient is moaning and grimacing during my visit. Nurse reports some improvement in agitation after Geodon was given. Eyes open intermittently, does not seem to focus or track during my visit. Does not follow commands. Discussed with nurses and casework specialist who reports [facility] in [place] for an evaluation. Awaiting final decision, case management will let us know. I will call family after determination is made regarding transfer to [place]. patient is known to palliative care service from prior admission during September, additional HPI as per palliative care consult 10/03/16: He initially presented via EMS 09/30/16 for altered mental status. He apparently been last seen normal by his landlord 2 days prior. Patient apparently presented to the ED 2 days prior for diagnosis of allergic reaction, at that time reporting low-grade fever and congestion. He at that time reported being seen 10 days prior by another physician and had been prescribed antibiotics for a fever. He then developed a red rash and peeling on his hands and feet, complains of generalized weakness and lightheadedness at that presentation. At that time he was prescribed prednisone and to follow-up with local provider. On day of presentation landlord found patient altered and notified EMS. Patient lethargic at presentation and unable to provide additional information. ED record notes family members were called, patient reported to have a rash on his hands and feet for the past 2 weeks and had been seen by a local physician. Family also reporting patient with a history of substance abuse, recently in rehabilitation, last rehabilitation a year ago. * ED course: Patient obtunded at arrival. Lactic acid 3.7, troponin 11.9, alkaline phosphatase 175 area total CK 372. BUN 54, creatinine 1.69, GFR 49. Glucose 116. Salicylate and acetaminophen levels normal. Urine drug screen positive for opiates, amphetamine (on ADDERALL FOR ADHD). Alcohol negative. He was intubated sedated. CXR with no acute process identified.Head CT= significant areas of infarction in the right frontal, temporal, and cerebellar regions as well as a small area of subarachnoid hemorrhage in the superior right parietal region. Patient has early 3 mm of midline shift as well as effacement on the right. * Echo: "hyperdynamic left ventricular function and what appears to be aortic valve vegetations and I measured to be approximally 0.9 x 8.8 cm. This is associated with what appears to be severe aortic regurgitation. There is no pericardial effusion. Right ventricular function is preserved." ID, neurosurgery consulted. Cultures pending. * Infectious disease: Initial cultures sputum :gram-positive cocci pairs and clusters, blood culture gram-positive cocci. CXR worsening. Patient continued on vancomycin, Rocephin, following cultures. * Neurosurgery: Patient with multiple acute septic CVAs, cerebral edema, small subarachnoid hemorrhage, midline shift, metabolic encephalopathy. Follow-up CT , repeat CT for any changes in neuro status. Continue 3% saline, keep sodium elevated ADDITIONAL OUT PT HX PER DOCUMENTS/ RXs PROVIDED BY FAMILY: * EKG, lower spine x-rays per Dr. Prather 07/09/16 * 09/07/16 RX ibuprofen TO replace meloxicam for joint pain, + Adderall 30 mg daily ([facility] pharmacy) * 09/13/16 RX omeprazole, clindamycin 150 mg 4 tablets twice a day, acyclovir 200 mg 1 by mouth 5 times a day [address] Herrera ([facility] pharmacy) * 09/14/16- RX prednisone Dr. Prather, doxycycline 100 mg 1 by mouth every 12 hours; family reports diagnosed with a "viral illness 09/17" ([facility] pharmacy) * 09/[address] [facility] [address] Bj Luis Tylenol 3 quantity 20, acyclovir 200 mg 1 by mouth 5 times a day 10 days * s/p tracheostomy, PEG tube week of 10/15/16 * During clinical course through September patient was some neurological improvement at some point weaning off sedation following commands, localizing, arousable though with ongoing episodes of agitation requiring various sedatives including Precedex, fentanyl, Diprivan. * Follow-up CT identified small brain hemorrhage; at that point patient was not a candidate for cardiac surgical intervention. CTS evaluated and noted patient would require at least 4 weeks on antibiotics, and at least 6 weeks out from brain hemorrhage before surgical intervention could be considered (follow-up CT brain stable) * Repeat echo again noted aortic vegetation, with possible perforation of aortic valve leaflets; CVS again reconsulted to consider surgery patient continues to have episodes of pulmonary edema felt to be secondary to severe aortic valve insufficiency. Concern that without surgical intervention patient may not tolerate ventilator weaning due to cardiac status. During periods of sedation weaning patient is following commands. At one point off of mechanical vent tolerating T piece for couple of days at a time though required ventilation again due to pulmonary edema, hypoxic respiratory failure. CVS reevaluation determines not a good surgical candidate, he was evaluated by [facility], subsequently declined. [facility] excepted for evaluation and possible valve replacement. * Was transferred to [facility] 10/31/16. Family/friend interactions Will call family after determination is made regarding transfer to [place] in [place]. . Advance Directives Living Will: Never completed Health Care Surrogate: Never completed Durable Power of Wafer Polisher: Never completed Advance Directive Specifics Significant change in goals: NO CODE. Goals remain aggressive short of NO CODE at this time. Family remains hopeful patient can have valve replacement. . Objective Vital Signs Date Time Temp Pulse Resp B/P Pulse Ox O2 Delivery O2 Flow Rate FiO2 11/08/16 12:58 100 40 11/08/16 12:30 98.9 90 15 101/61 100 11/08/16 12:20 15 11/08/16 12:00 106 11/08/16 12:00 40 11/08/16 12:00 98.9 106 18 102/57 100 11/08/16 11:09 98.8 11/08/16 10:54 98.6 91 15 92/46 100 11/08/16 08:00 40 11/08/16 08:00 112 11/08/16 08:00 98.9 106 15 117/58 100 11/08/16 07:47 100 40 11/08/16 07:00 100 Mechanical Ventilator 40 11/08/16 04:28 100 40 11/08/16 04:00 100 100 11/08/16 04:00 40 11/08/16 04:00 112 11/08/16 04:00 99.2 112 15 112/56 100 11/08/16 01:02 98 40 11/08/16 00:00 99.2 89 15 98/49 99 11/08/16 00:00 89 11/08/16 00:00 40 11/07/16 22:22 100 40 11/07/16 20:00 40 11/07/16 20:00 98.4 90 15 99/49 100 11/07/16 20:00 90 11/07/16 19:49 100 40 11/07/16 19:00 100 Mechanical Ventilator 40 11/07/16 16:03 96 40 11/07/16 16:00 99 11/07/16 16:00 40 11/07/16 16:00 99.0 99 15 112/51 96 Intake & Output 11/08/16 11/08/16 07:00 19:00 Intake Total 1815 ml Output Total 900 ml Balance 915 ml Intake IV Total 796 ml Tube Feeding 899 ml Other 120 ml Output Urine Total 900 ml Stool Total 0 ml Physical Exam CONSTITUTIONAL/GENERAL: This is an adequately nourished patient, sedated on mech vent TUBES/LINES/DRAINS: Left subclavian central line, Jerez catheter, PEG tube, rectal drain, SCDs SKIN: No jaundice, rashes, or lesions.No wounds seen anteriorly. Reported stage III wound to sacrum not visualized. Skin temperature warm, dry. EYES: Eyes open, not tracking. Pupils 3 mm, slight reaction to light. No scleral icterus. No injection or drainage. Fundi not examined. ENT: Nose without bleeding or purulent drainage. Mouth closed, + some dried secretions visible around lips. NECK: Trachea, tracheostomy midline. Supple, nontender. CARDIOVASCULAR: Intermittent tachycardia. No murmurs. RESPIRATORY/CHEST: Symmetric, unlabored respirations via tracheostomy to mechanical vent. Some scattered rhonchi throughout. Breath sounds equal bilaterally. GASTROINTESTINAL: Abdomen soft, flat, no apparent tenderness though limited assessment, nondistended. No hepato-splenomegaly, or palpable masses. Bowel sounds present. + Loose brown stool present in rectal drain. NEUROLOGICAL: Sedated on mechanical vent. Eyes open, does not track examiner. Observe moving extremities spontaneously, does not follow commands. Appears comfortable. PSYCHIATRIC: No obvious anxiety/depression--limited assessment due to clinical condition, sedatives. . Diagnostic Tests Laboratory Laboratory Tests Test 11/05/16 11/06/16 11/06/16 11/06/16 21:58 03:40 05:00 14:10 Magnesium Level 2.4 MG/DL (1.5-2.5) White Blood Count 11.1 TH/MM3 (4.0-11.0) Red Blood Count 2.32 MIL/MM3 (4.50-5.90) Hemoglobin 6.7 GM/DL 7.3 GM/DL (13.0-17.0) (13.0-17.0) Hematocrit 20.0 % 22.1 % (39.0-51.0) (39.0-51.0) Mean Corpuscular Volume 86.3 FL (80.0-100.0) Mean Corpuscular Hemoglobin 28.9 PG (27.0-34.0) Mean Corpuscular Hemoglobin 33.5 % Concent (32.0-36.0) Red Cell Distribution Width 14.9 % (11.6-17.2) Platelet Count 212 TH/MM3 (150-450) Mean Platelet Volume 8.5 FL (7.0-11.0) Neutrophils (%) (Auto) 80.3 % (16.0-70.0) Lymphocytes (%) (Auto) 10.6 % (9.0-44.0) Monocytes (%) (Auto) 3.8 % (0.0-8.0) Eosinophils (%) (Auto) 4.3 % (0.0-4.0) Basophils (%) (Auto) 1.0 % (0.0-2.0) Neutrophils # (Auto) 8.9 TH/MM3 (1.8-7.7) Lymphocytes # (Auto) 1.2 TH/MM3 (1.0-4.8) Monocytes # (Auto) 0.4 TH/MM3 (0-0.9) Eosinophils # (Auto) 0.5 TH/MM3 (0-0.4) Basophils # (Auto) 0.1 TH/MM3 (0-0.2) CBC Comment DIFF FINAL Differential Comment Sodium Level 146 MEQ/L (136-145) Potassium Level 3.4 MEQ/L 3.8 MEQ/L (3.5-5.1) (3.5-5.1) Chloride Level 108 MEQ/L (98-107) Carbon Dioxide Level 32.0 MEQ/L (21.0-32.0) Anion Gap 6 MEQ/L (5-15) Blood Urea Nitrogen 40 MG/DL (7-18) Creatinine 1.01 MG/DL (0.60-1.30) Estimat Glomerular Filtration 89 ML/MIN (>89) Rate Random Glucose 113 MG/DL (74-106) Calcium Level 8.5 MG/DL (8.5-10.1) Total Bilirubin 0.4 MG/DL (0.2-1.0) Aspartate Amino Transf 28 U/L (15-37) (AST/SGOT) Alanine Aminotransferase 63 U/L (12-78) (ALT/SGPT) Alkaline Phosphatase 69 U/L (45-117) Total Protein 7.1 GM/DL (6.4-8.2) Albumin 2.7 GM/DL (3.4-5.0) Blood Type O NEGATIVE Antibody Screen NEGATIVE Crossmatch Leukocyte-Reduced Red Blood Cells Blood Bank Comment Test 11/07/16 11/08/16 11/08/16 04:00 05:00 06:42 White Blood Count 13.4 TH/MM3 9.4 TH/MM3 (4.0-11.0) (4.0-11.0) Red Blood Count 2.64 MIL/MM3 2.25 MIL/MM3 (4.50-5.90) (4.50-5.90) Hemoglobin 7.5 GM/DL 6.6 GM/DL (13.0-17.0) (13.0-17.0) Hematocrit 22.5 % 19.2 % (39.0-51.0) (39.0-51.0) Mean Corpuscular Volume 85.4 FL 85.3 FL (80.0-100.0) (80.0-100.0) Mean Corpuscular Hemoglobin 28.3 PG 29.4 PG (27.0-34.0) (27.0-34.0) Mean Corpuscular Hemoglobin 33.1 % 34.5 % Concent (32.0-36.0) (32.0-36.0) Red Cell Distribution Width 15.9 % 15.8 % (11.6-17.2) (11.6-17.2) Platelet Count 249 TH/MM3 225 TH/MM3 (150-450) (150-450) Mean Platelet Volume 8.4 FL 8.3 FL (7.0-11.0) (7.0-11.0) Sodium Level 144 MEQ/L 143 MEQ/L (136-145) (136-145) Potassium Level 3.7 MEQ/L 3.3 MEQ/L (3.5-5.1) (3.5-5.1) Chloride Level 106 MEQ/L 105 MEQ/L (98-107) (98-107) Carbon Dioxide Level 30.8 MEQ/L 31.8 MEQ/L (21.0-32.0) (21.0-32.0) Anion Gap 7 MEQ/L (5-15) 6 MEQ/L (5-15) Blood Urea Nitrogen 42 MG/DL (7-18) 48 MG/DL (7-18) Creatinine 0.98 MG/DL 0.99 MG/DL (0.60-1.30) (0.60-1.30) Estimat Glomerular Filtration 92 ML/MIN (>89) 91 ML/MIN (>89) Rate Random Glucose 105 MG/DL 92 MG/DL (74-106) (74-106) Calcium Level 8.8 MG/DL 8.8 MG/DL (8.5-10.1) (8.5-10.1) Blood Type O NEGATIVE Crossmatch Leukocyte-Reduced Red Blood Cells Blood Bank Comment Result Diagram: 11/08/16 0500 11/08/16 0500 Microbiology Microbiology Date/Time Procedure Status Source Growth 11/04/16 12:55 Aerobic Blood Culture - Preliminary Resulted Blood Peripheral NO GROWTH IN 4 DAYS 11/04/16 12:55 Anaerobic Blood Culture - Preliminary Resulted Blood Peripheral NO GROWTH IN 4 DAYS . Imaging Last Impressions Chest X-Ray 11/08/16 040 Signed Impressions: Service Date/Time: October 04:24 - CONCLUSION: Persistent but slightly improved consolidation left lower lung. Diffuse hazy opacities in the central right lung. Cayden Haile MD Head CT 11/07/16 0000 Signed Impressions: Service Date/Time: October 04:12 - CONCLUSION: Stable size of the hemorrhages with surrounding edema right and left parietal regions. Slight decrease in midline shift towards the left. Cayden Haile MD . Procedures racheostomy, PEG tube . Assessment and Plan Disease Oriented Problem List: (1) Aortic valve endocarditis (2) CVA (cerebral vascular accident) Comment: multiple CVAs, Septic Intracerebral emboli (3) Cerebral septic emboli (4) Aortic valve insufficiency Comment: severe (5) CHF (congestive heart failure) Comment: secondary to valvulopathy . (6) Acute on chronic respiratory failure with hypoxia (7) Encephalopathy (8) Intracranial hemorrhage Comment: Hemorrhagic conversion of prior CVAs (9) Previous IVDU (10) Severe protein-calorie malnutrition Symptom Scale: (1) Dyspnea 0-10 Scale: Unable to quantify (2) Encephalopathy 0-10 Scale: Unable to quantify (3) Agitation 0-10 Scale: Unable to quantify (4) Pain 0-10 Scale: Unable to quantify (5) Malnutrition 0-10 Scale: Unable to quantify Comment: Albumin 2.7. Pertinent Non-Medical Issues Psychosocial:originally from [place], lived in [place] since . HS education. Was incarcerated and then in drug rehabilitation in [facility]. 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 Has 1 sister Elizabeth (Anay) ,lives in [place], mother lives in [place]. Father (parents ) lived in [place] with support from family there. Supported by local friends, coworkers, apartment landlord. Spiritual:believes in God, no particular affiliation. would want ongoing regulator pin inserter support. Legal:Patient is not able to participate in decision-making due to clinical condition. He is not . Per [place] statutes his parents would be legal decision makers, mother is serving as primary supported by his sister and father. Mother has POA paperwork, however this does NOT include medical decision making. Ethical issues impacting care: Important Contacts mother Felicita Roberts [phone] sister Elizabeth Rios [phone] father Pradeep Rios [phone] . Prognosis This unfortunate 26-year-old man initially presented to the ED in September with altered mental status, he has been found to have mixed septic/cardiogenic shock with multiple areas of septic emboli CVA secondary to aortic valve endocarditis. He then developed a small ICH. He has had prolonged ICU course, with episodes of agitation, pulmonary edema and hypoxic respiratory failure, 2/ 2 to severe aortic valve insufficiency. + Aortic valve leaflet perforations. CVS evaluated here for possible valve replacement, patient not felt to be good surgical candidate. Was declined by [facility]. Was transferred and evaluated by [facility] at [facility] last week, also declined due to not felt to be good surgical candidate, transferred back to [facility] 11/03/16. Remains in critical condition, medical treatments maximized. Patient with very poor chance of survival without a valve replacement, and is currently not a candidate for a valve due to poor clinical condition. Not felt likely to improve enough to obtain valve replacement. High risk for ongoing clinical complications and . . Code Status: No Code Plan * Legal decision maker: Patient is not able to participate in decision-making due to clinical condition. He is not . Per [place] statutes his parents would be legal decision makers, mother is serving as primary supported by his sister and father. Mother has POA paperwork however this does not include medical decision-making. * Goals: During prior palliative consultation and multiple interactions palliative has met w pt mother, father, sister at length. Patient sister appears to have a reasonable understanding of conditions, prognosis. Patient mother , father appear to have a very simple understanding of conditions and prognosis. At that time family's goals were aggressive, Patient's mother is hoping for a miracle and wants to continue whatever measures available to help patient recover. 11/05/16: Family wishes to continue maximize medical treatments with the hopes of patient condition may possibly improve enough to be considered for valve replacement; they understand he is high risk for not improving, further complications, clinical deterioration. Mother endorses she continues to pray for pt and is hoping for a miracle. She is also looking at various other facilities for possible transfer /evaluation for valve, she is currently looking into/contacting hospital associated with [facility] ([facility]), she is hoping to find a surgeon willing to attempt a valve on her son. 11/08/16: goals remain aggressive, awaiting to determine if patient will be accepted for transfer to [facility] in [place]. * CODE STATUS: NO CODE/ DNR * SYMPTOMS: --dyspnea- [facility] for [facility]. [facility]; status post tracheostomy. has had difficulty weaning off of vent/staying off of vent due to agitation, pulmonary edema 2/2 severe aortic valve insufficiency -- agitation- hx substance abuse; hx ADD, on adderall. + Embolic CVA, +new hemorrhage 6/6 to the right temporal lobe (follow-up CT imaging stable) Has had periods of restlessness, agitation ongoing during prolonged hospital course. Has been on various sedatives including Precedex, Diprivan, fentanyl. Has at times when lightened and able to follow commands, moved all 4 extremities. Currently on Geodon 10mg IM Q 12 hr, fentanyl 250/mcgs hr, diprivan 50 mcgs/kg/ min-- restless today during exam. not following commands. -- encephalopathy- multifactorial-- +sepsis, embolic CVA, +new hemorrhage 6/ 6 to the right temporal lobe (follow-up CT imaging stable) hx substance abuse, EEG neg seizure . -- malnutrition -- s/p PEG (replaced by GI 11/05 due to pt dislodging) . Ongoing TF. albumin 3.1 --Pain: Potential sources would include: History of degenerative disc disease ; has had prolonged bedbound status during > 1 month hospitalization, + stage III wounds to coccyx.started on ATC Oxycodone 10mg per tube q4h scheduled * Palliative care will continue to follow during hospital course as condition evolves, to assist patient/decision-maker with understanding of medical conditions, weighing benefits/burdens of treatment options, for clarification of goals of treatment. Additionally will assist with any symptoms of palliative concern Attestation To help prompt me to consider important information that might be impacting today's encounter and assessment, information from prior notes written by myself or my colleagues may have been "brought forward" into today's note. My signature on this note, however, is an attestation that I personally performed the exam, history, and/or decision-making noted today, and, unless otherwise indicated, the interactions with patient, family, and staff as well as the review of records all occurred today. I also attest that the listed assessment and stated plan reflect my best clinical judgment today based on the combination of historical information, prior notes, and today's exam/ interactions. When time spent is documented, it refers only to time spent today by the signer, or if indicated, combined time spent today by collaborating physician/nurse practitioner. Suzanne Taylor Nov 08, 2016 13:44
[2016-11-08] MEDS: PANTOPRAZOLE SODIUM 40 MG VIAL IV PUSH SCH (14:00)
[2016-11-09] VITALS (13 sets, daily range): BP systolic 89–109; BP diastolic 47–77; PULSE 84–101; RESP 15–20; TEMP 98.7–100.4; O2SAT 94–100
[2016-11-09] MEDS: BUMETANIDE INJ 1 MG/4 ML VIAL IV PUSH SCH ×3 (03:22→23:23)
[2016-11-09] MEDS: ZIPRASIDONE MESYLATE 20 MG VIAL IM SCH ×3 (03:22→18:15)
[2016-11-09] MEDS: METOPROLOL TARTRATE 25 MG TAB PO SCH ×4 (03:22→21:05)
[2016-11-09] MEDS: oxyCODONE HCL ORAL CONC 20 MG/ML SYRINGE PO SCH ×6 (03:23→23:23)
[2016-11-09] MEDS: OXACILLIN INJ 2 GM in SODIUM CHLORIDE 0.9% INJ 100 ML IV SCH ×6 (03:23→23:23)
[2016-11-09] MEDS: CHLORHEXIDINE GLUCONATE 2 % 1 PACK (2 CLOTHS) TOP SCH (04:00)
[2016-11-09 04:59] LABS: HEMATOCRIT 22.3 % (39.0-51.0); MEAN CELL VOLUME 84.6 FL (80.0-100.0); MEAN CORPUSCULAR HEMOGLOBIN 28.9 PG (27.0-34.0); MEAN CORPUSCULAR HGB CONC 34.1 % (32.0-36.0); PLATELET COUNT 235 TH/MM3 (150-450); RED BLOOD COUNT 2.63 MIL/MM3 (4.50-5.90); RED CELL DISTRIBUTION WIDTH 15.5 % (11.6-17.2); REVIEW FLAG FINAL
[2016-11-09 05:21] LABS: BICARBONATE 32.6 MEQ/L (21.0-32.0); POTASSIUM 3.6 MEQ/L (3.5-5.1)
[2016-11-09] MEDS: fentaNYL DRIP 250 ML IV SCH ×3 (05:42→23:30)
[2016-11-09] MEDS: PROPOFOL 1000 MG/100 ML INJ 100 ML IV SCH ×5 (05:42→23:30)
[2016-11-09] MEDS: CHLORHEXIDINE 0.12% (ORAL KIT) 15 ML CUP MT SCH ×2 (07:44→20:59)
--- NOTE | 2016-11-09 09:10 | HHI.CCPN ---
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 His course was complicated by persistent respiratory failure requiring tracheostomy, intracerebral abscess, and severe aortic insufficiency with at least 4 episodes of flash pulmonary edema and near fatal hypoxic respiratory failure. He was evaluated by 2 cardio thoracic surgeons at this institution and deemed not to be a surgical candidate. He was then transferred to [facility] for an outside opinion, where cardiac thoracic surgery at that facility along with infectious disease and neurology at that facility deemed him to be not a surgical candidate. He reports to [facility] in transfer back from [facility]. He remained stable without change and acute clinical status. He is still intubated and encephalopathic. Additional history is unobtainable from the patient. Subjective: 11/04: agitation persists. cr slightly better. no significant change. ID prefers to change back to oxacillin. another long family discussion today: family has found a facility in [place] they are interested in transferring him to for 3rd opinion. 11/05: Patient remains heavily sedated with propofol and fentanyl for agitation. Severe agitation causes him to go into flash pulmonary edema. On sedation lightening patient moves uncontrollably. Otherwise have been stable overnight. 11/06: CXR with continued pulmonary interstitial edema and venous congestion. RV , PA enlarged consistent with chronic overload. Tmax 99. We have produced a prerenal azotemia appropriately so and oxygen diffusion remains acceptable. This remains uncompensated heart failure from a mechanical problem with a poor prognosis. 11/07: Decreased heat rate and fever today. No improvement in neuro status. 11/08: Continued problems with severe agitation. 11/09: Will need to start librium. He is very tolerant to propofol and fentanyl and at risk to disconnect ventilator. Still requiring elevated PEEP - frothy edema fluid otherwise. 11/10: Prerenal azotemia developing, will reduce bumex by 50%. No change in neurological status. Objective Vital Signs Date Time Temp Pulse Resp B/P Pulse Ox O2 Delivery O2 Flow Rate FiO2 11/09/16 08:00 40 11/09/16 08:00 92 11/09/16 08:00 99.9 15 109/55 94 11/09/16 07:00 Mechanical Ventilator Intake and Output 11/08/16 11/08/16 11/09/16 08:00 16:00 00:00 Intake Total 837 ml 1488 ml 1008 ml Output Total 550 ml 875 ml 750 ml Balance 287 ml 613 ml 258 ml Result Diagram: 11/09/165 11/09/16 0445 Objective Remarks GENERAL: Young male, lying in bed, encephalopathic, trach in place, on a ventilator HEENT: Normocephalic. Atraumatic. Pupils equal, round, reactive, conjugate. Mucous membranes are moist NECK: Trachea is midline. Neck veins full. CHEST: Tracheostomy in place, site clean. Good crow air movement. Few crackles only. CARDIOVASCULAR: Tachycardic rate, regular rhythm. Sinus by telemetry. ABDOMEN: Soft, nontender, nondistended. No guarding. PEG tube in place. BACK: Sacral decubitus. MUSCULOSKELETAL: Pulses 2+. No peripheral edema. NEUROLOGICAL: Opens eyes intermittently spontaneously. Tracks intermittently with his eyes but does not focus or follow. Does not follow commands. Withdraws 4 limbs, moves all extremities spontaneously. Left upper extremity minimal strength. A/P Assessment and Plan Assessment: This is a 26-year-old male with infective aortic valve endocarditis , intracerebral septic emboli with intracerebral abscess and hemorrhagic conversion of infarctions, severe CHF exacerbation secondary to valvulopathy, severe persistent encephalopathy, chronic respiratory failure. He re-presents from [facility] for ongoing management. Based on his echo, along with the input from outside hospital consultants, I agree with their assessment that he is likely not a surgical candidate at this time. At this point, without surgery, he would certainly , and with surgery, likely given his multiple medical comorbidities, he may . Given that he is young, I think it is reasonable to give the patient and additional 2 weeks to see if we can medically optimize him from a neurologic and cardiovascular standpoint. Likely this will be unsuccessful given that without surgical repair, the patient will not be able to stay out of heart failure. Patient is DNR now, but continue our aggressive medical management for an additional 2 weeks. If at that time he is not clinically improved, I think that we have a responsibility to the patient to pursue comfort measures at that time. Plan: Infective Aortic Valve Endocarditis -- Abx per ID, Continue IV Oxacillin -- Blood culture 2 from 11/04/16 negative to date -- daily cbc -- Culture for fevers. Severe CHF exacerbation secondary to valvulopathy Severe aortic valve insufficiency -- bumex 2mg iv q8hr -- repeat ISABEL 11/03: severe AI. preserved EF. left pleural effusion -- Pulmonary edema persists. Metabolic alkalosis -- diamox 500mg iv q8h completed --restart for alkalosis and K loss Severe Hypokalemia -- aggressive electrolyte replacement Severe Encephalopathy Septic Intracerebral emboli Multiple CVAs Hemorrhagic conversion of prior CVAs -- continue to hold anticoagulation -- frequent neuro checks Agitated Delirium -- propofol, fentanyl for goal RASS -2 -- add Geodon 10mg IM q8h prn Acute pain associated with decubitus ulcer -- Oxycodone 10mg per tube q4h scheduled Acute on chronic hypoxic respiratory failure -- diuresis as above -- continue PRVC -- CPAP/PS as tolerated -- Wean fio2 for spo2 > 90% Acute protein calorie malnutrition- severe -- continue TF Dispo: -- remain in the ICU. remains critically ill. the family is welcome to pursue inter-facility transfer if they choose. Addendum: Patient pulled out PEG. RN placed new Jerez. Overall impression: CXR clearing after very aggressive diuresis. No fever X 96 hrs. Evaluation ongoing for valve replacement. Severe agitation less after librium started but still requires high dose propofol and fentanyl for vent synchrony. Flash edema problem improved with increased PEEP. All blood cultures negative since 10/06/16. Robert Cartagena MD Nov 09, 2016 09:10
[2016-11-09] MEDS: chlordiazePOXIDE 25 MG CAP PO SCH ×2 (09:12→20:58)
--- NOTE | 2016-11-09 11:05 | HHI.IDPN ---
Note Infectious Disease Note Patient is awake though sedated. No distress. Low grade fever. BP stable. On vent 40% FIO2. 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 Post tracheostomy and PEG. Allergies: Coded Allergies: Hydrocodone (Verified Allergy, Unknown, Nausea/Vomiting, 10/04/16) Mother called Dentist to verify Sulfa (Verified Allergy, Unknown, 09/30/16) Toradol (Verified Allergy, Unknown, 09/30/16) Past Medical History Substance abuse ADHD Degenerative disc disease ANTIBIOTICS: Oxacillin. Physical Exam Vital Signs Date Time Temp Pulse Resp B/P Pulse Ox O2 Delivery O2 Flow Rate FiO2 11/09/16 08:00 40 11/09/16 08:00 92 11/09/16 08:00 99.9 94 15 109/55 94 11/09/16 07:43 25 11/09/16 07:27 97 40 11/09/16 07:00 99 Mechanical Ventilator 40 11/09/16 04:00 100.2 101 17 108/77 98 11/09/16 04:00 98 40 11/09/16 04:00 101 11/09/16 04:00 40 11/09/16 01:28 98 40 11/09/16 00:00 40 11/09/16 00:00 100.4 84 15 96/50 98 11/09/16 00:00 84 11/08/16 22:05 100 40 11/08/16 20:00 40 11/08/16 20:00 99.0 88 15 94/46 99 11/08/16 20:00 88 11/08/16 19:09 100 40 11/08/16 19:00 100 Mechanical Ventilator 40 11/08/16 17:50 17 11/08/16 16:10 100 40 11/08/16 16:00 118 11/08/16 16:00 98.8 118 17 110/53 100 11/08/16 16:00 40 11/08/16 12:58 100 40 11/08/16 12:30 98.9 90 15 101/61 100 11/08/16 12:00 106 11/08/16 12:00 40 11/08/16 12:00 98.9 106 18 102/57 100 11/08/16 11:09 98.8 11/08/16 11/08/16 11/09/16 15:00 23:00 07:00 Intake Total 1488 ml 1008 ml 1089 ml Output Total 875 ml 750 ml 1850 ml Balance 613 ml 258 ml -761 ml Intake IV Total 726 ml 605 ml 669 ml Tube Feeding 412 ml 303 ml 360 ml Packed Cells 250 ml Other 100 ml 100 ml 60 ml Output Urine Total 800 ml 750 ml 1850 ml Stool Total 75 ml 0 ml 0 ml Laboratory Tests Test 11/08/16 11/09/16 05:00 04:45 White Blood Count 9.4 TH/MM3 11.0 TH/MM3 Red Blood Count 2.25 MIL/MM3 2.63 MIL/MM3 Hemoglobin 6.6 GM/DL 7.6 GM/DL Hematocrit 19.2 % 22.3 % Mean Corpuscular Volume 85.3 FL 84.6 FL Mean Corpuscular Hemoglobin 29.4 PG 28.9 PG Mean Corpuscular Hemoglobin 34.5 % 34.1 % Concent Red Cell Distribution Width 15.8 % 15.5 % Platelet Count 225 TH/MM3 235 TH/MM3 Mean Platelet Volume 8.3 FL 8.1 FL Laboratory Tests Test 11/08/16 11/09/16 05:00 04:45 Sodium Level 143 MEQ/L 147 MEQ/L Potassium Level 3.3 MEQ/L 3.6 MEQ/L Chloride Level 105 MEQ/L 106 MEQ/L Carbon Dioxide Level 31.8 MEQ/L 32.6 MEQ/L Anion Gap 6 MEQ/L 8 MEQ/L Blood Urea Nitrogen 48 MG/DL 47 MG/DL Creatinine 0.99 MG/DL 1.07 MG/DL Estimat Glomerular Filtration 91 ML/MIN 84 ML/MIN Rate Random Glucose 92 MG/DL 98 MG/DL Calcium Level 8.8 MG/DL 8.8 MG/DL Microbiology Date/Time Procedure Status Source Growth 11/04/16 12:45 Aerobic Blood Culture - Preliminary Resulted Blood Line NO GROWTH IN 3 DAYS 11/04/16 12:45 Anaerobic Blood Culture - Preliminary Resulted Blood Line NO GROWTH IN 3 DAYS 11/04/16 12:55 Aerobic Blood Culture - Preliminary Resulted Blood Peripheral NO GROWTH IN 3 DAYS 11/04/16 12:55 Anaerobic Blood Culture - Preliminary Resulted Blood Peripheral NO GROWTH IN 3 DAYS IMAGING: Chest X-Ray 11/08/16 0400 Signed Impressions: Service Date/Time: October 04:24 - CONCLUSION: Persistent but slightly improved consolidation left lower lung. Diffuse hazy opacities in the central right lung. Cayden Haile MD Head CT 11/07/16 0000 Signed Impressions: Service Date/Time: October 04:12 - CONCLUSION: Stable size of the hemorrhages with surrounding edema right and left parietal regions. Slight decrease in midline shift towards the left. Cayden Haile MD Chest X-Ray 11/03/16 0000 Signed Impressions: Service Date/Time: Thursday, November 03, 2016 10:48 - CONCLUSION: Improving aeration of the lung preciado compared to the prior study. Omari Moya MD GENERAL: Patient is in no acute distress. Restless. In soft restraints. HEENT: EOMI, No icterus. No conjunctival erythema. NECK: Supple. No adenopathy. LUNGS: Bilateral rhonchi. CARDIAC: Regular rate and rhythm. (+) 4/6 DALILA LSB. ABDOMEN: Soft, non tender. EXTREMITIES: No CCE. No embolic phenomena. SKIN: No rash. Assessment and Plan IMPRESSION MSSA AV endocarditis. Last positive blood culture 10/04/16. - Severe AI, HIM SPECIALIST septic embolic lesions, abscess. Stable. Respiratory failure S/P trach Recent Enterobacter PNA - treated. Cassandra in UC 10/30 Treated. Low grade temps, ?new nosocomial infection. RECOMMENDATION Continue IV Oxacillin2 gm Q 4 hours. Monitor Temps. Monitor WBC. Monitor blood cultures. Monitor clinical progress. Hopefully can have AV valve replacement. Otherwise outlook is poor without valve replacement. If Temp increase reculture. Nemesio Jackson MD Nov 09, 2016 11:05
[2016-11-09] MEDS: PANTOPRAZOLE SODIUM 40 MG VIAL IV PUSH SCH (13:19)
[2016-11-09 13:22] LABS: ANION GAP 9 MEQ/L (5-15); AST (GOT) 31 U/L (15-37); BICARBONATE 33.1 MEQ/L (21.0-32.0); BLOOD UREA NITROGEN 50 MG/DL (7-18); CHLORIDE 104 MEQ/L (98-107); MAGNESIUM 2.4 MG/DL (1.5-2.5); POTASSIUM 3.3 MEQ/L (3.5-5.1); SODIUM (NA) 146 MEQ/L (136-145)
[2016-11-09 13:26] LABS: ALKALINE PHOSPHATASE 72 U/L (45-117); ALT (GPT) 40 U/L (12-78); GLOMERULAR FILTRATION RATE 80 ML/MIN (>89); TOTAL BILIRUBIN ADULT 0.7 MG/DL (0.2-1.0)
[2016-11-09] MEDS: POTASSIUM CHLOR 40 MEQ PREMIX 100 ML IV PRN (13:39)
--- NOTE | 2016-11-09 15:26 | HHI.HCPN ---
Attempted to see Mr. Rios/family for follow-up support. No family/friends at bedside. Mr. Rios appears to be resting comfortably. Spoke with patient's sister, Anay. Family continues to remain hopeful for transfer to [facility] in [place] for surgery assessment. Answered questions and concerns to the best of my ability. Palliative care will continue to follow throughout hospitalization. Madison Cervantes, [employer] Nov 09, 2016 15:26
--- NOTE | 2016-11-09 15:55 | PD.WCN.NOT ---
Wound Consult Description: Patient seen on [facility] for evaluation of pressure injury to sacrum noted with previous admission. Patient is known to wound care and was assessed previously with deep tissue injury to sacrum. Patient assessed with the assistance of Robina WIN and story writer. Patient turned to R side with the assistance of Robina WIN and story writer to reveal stage 4 pressure injury to coccyx. Wound bed presents with ~60% facia, ~30% muscle and ~10% yellow tissue. Wound noted with minimal sanguinous drainage when cleansed with normal saline and gauze pad that is without odor. Applied Maxorb II (calcium alginate) dressing cut into single strip and loosely packed into wound bed. Sprayed periwound with Cavilon skin prep spray before covering wound with small bordered gauze. Communicated with: DEA Cueva and Doctor Osiel Recommendation: Please cleanse wound to coccyx with normal saline or wound cleanser and apply Maxorb II ( calcium alginate ) dressing cut into single strip and loosely packed into wound bed. Please cover with small bordered gauze dressing and change every other day or PRN if saturated or dislodged. [facility] Smith [facility] Nov 09, 2016 15:55
--- NOTE | 2016-11-09 18:19 | HHI.HCPN ---
I was asked to call sister, Elizabeth to provide medical update and answer medical questions. Reviewed CT head results, current medications to control agitation and advised of case management 16:14 note regarding possible transfer to [facility] (awaiting approval of accepting MD). She appreciates time spent answering her questions. . Suzanne Taylor Nov 09, 2016 18:19
[2016-11-09] MEDS ORDERED: SODIUM CHLOR 0.9% 1000 ML INJ 1,000 ML IV ONE (23:00)
[2016-11-09] MEDS: RESP: ALBUTEROL 2.5 MG/IPRATROPIUM 0.5 MG NEB (PRN) INH (23:27)
[2016-11-10] VITALS (11 sets, daily range): BP systolic 95–108; BP diastolic 47–57; PULSE 84–112; RESP 15–23; TEMP 98.2–98.9; O2SAT 93–100
[2016-11-10] MEDS: METOPROLOL TARTRATE 25 MG TAB PO SCH ×3 (04:00→22:00)
[2016-11-10] MEDS: CHLORHEXIDINE GLUCONATE 2 % 1 PACK (2 CLOTHS) TOP SCH (04:00)
[2016-11-10] MEDS: ZIPRASIDONE MESYLATE 20 MG VIAL IM SCH ×3 (04:31→23:55)
[2016-11-10] MEDS: oxyCODONE HCL ORAL CONC 20 MG/ML SYRINGE PO SCH ×6 (04:32→23:54)
[2016-11-10] MEDS: OXACILLIN INJ 2 GM in SODIUM CHLORIDE 0.9% INJ 100 ML IV SCH ×6 (04:34→23:55)
[2016-11-10 06:16] LABS: BICARBONATE 32.7 MEQ/L (21.0-32.0); POTASSIUM 4.5 MEQ/L (3.5-5.1)
[2016-11-10] MEDS: PROPOFOL 1000 MG/100 ML INJ 100 ML IV SCH ×3 (06:50→20:45)
[2016-11-10] MEDS: CHLORHEXIDINE 0.12% (ORAL KIT) 15 ML CUP MT SCH ×2 (07:28→20:14)
[2016-11-10 08:40] LABS: HEMATOCRIT 21.6 % (39.0-51.0); MEAN CELL VOLUME 86.3 FL (80.0-100.0); MEAN CORPUSCULAR HEMOGLOBIN 28.8 PG (27.0-34.0); MEAN CORPUSCULAR HGB CONC 33.4 % (32.0-36.0); PLATELET COUNT 190 TH/MM3 (150-450); RED CELL DISTRIBUTION WIDTH 15.8 % (11.6-17.2); REVIEW FLAG FINAL; WHITE BLOOD COUNT 9.1 TH/MM3 (4.0-11.0)
[2016-11-10] MEDS: chlordiazePOXIDE 25 MG CAP PO SCH ×2 (09:03→20:14)
[2016-11-10] MEDS: fentaNYL DRIP 250 ML IV SCH ×2 (10:23→20:44)
[2016-11-10] MEDS: BUMETANIDE INJ 1 MG/4 ML VIAL IV PUSH SCH ×2 (11:12→23:54)
[2016-11-10] MEDS: PANTOPRAZOLE SODIUM 40 MG VIAL IV PUSH SCH (14:13)
[2016-11-11] VITALS (13 sets, daily range): BP systolic 99–114; BP diastolic 47–78; PULSE 95–116; RESP 15–19; TEMP 98.3–101.1; O2SAT 93–100
[2016-11-11] MEDS: CHLORHEXIDINE GLUCONATE 2 % 1 PACK (2 CLOTHS) TOP SCH (04:00)
[2016-11-11] MEDS: oxyCODONE HCL ORAL CONC 20 MG/ML SYRINGE PO SCH ×7 (04:54→23:02)
[2016-11-11] MEDS: fentaNYL DRIP 250 ML IV SCH ×2 (04:54→17:35)
[2016-11-11] MEDS: PROPOFOL 1000 MG/100 ML INJ 100 ML IV SCH ×3 (04:54→19:38)
[2016-11-11] MEDS: OXACILLIN INJ 2 GM in SODIUM CHLORIDE 0.9% INJ 100 ML IV SCH ×6 (04:54→23:02)
[2016-11-11 06:28] LABS: BICARBONATE 30.5 MEQ/L (21.0-32.0); POTASSIUM 4.1 MEQ/L (3.5-5.1)
[2016-11-11] MEDS: CHLORHEXIDINE 0.12% (ORAL KIT) 15 ML CUP MT SCH ×2 (07:28→19:38)
[2016-11-11] MEDS: chlordiazePOXIDE 25 MG CAP PO SCH ×2 (07:29→19:38)
[2016-11-11] MEDS: METOPROLOL TARTRATE 25 MG TAB PO SCH ×2 (10:00→21:33)
[2016-11-11] MEDS: BUMETANIDE INJ 1 MG/4 ML VIAL IV PUSH SCH ×2 (10:07→23:01)
[2016-11-11] MEDS: ZIPRASIDONE MESYLATE 20 MG VIAL IM SCH ×2 (10:08→23:02)
--- NOTE | 2016-11-11 10:23 | HHI.CCPN ---
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 His course was complicated by persistent respiratory failure requiring tracheostomy, intracerebral abscess, and severe aortic insufficiency with at least 4 episodes of flash pulmonary edema and near fatal hypoxic respiratory failure. He was evaluated by 2 cardio thoracic surgeons at this institution and deemed not to be a surgical candidate. He was then transferred to [facility] for an outside opinion, where cardiac thoracic surgery at that facility along with infectious disease and neurology at that facility deemed him to be not a surgical candidate. He reports to [facility] in transfer back from [facility]. He remained stable without change and acute clinical status. He is still intubated and encephalopathic. Additional history is unobtainable from the patient. Subjective: 11/04: agitation persists. cr slightly better. no significant change. ID prefers to change back to oxacillin. another long family discussion today: family has found a facility in [place] they are interested in transferring him to for 3rd opinion. 11/05: Patient remains heavily sedated with propofol and fentanyl for agitation. Severe agitation causes him to go into flash pulmonary edema. On sedation lightening patient moves uncontrollably. Otherwise have been stable overnight. 11/06: CXR with continued pulmonary interstitial edema and venous congestion. RV , PA enlarged consistent with chronic overload. Tmax 99. We have produced a prerenal azotemia appropriately so and oxygen diffusion remains acceptable. This remains uncompensated heart failure from a mechanical problem with a poor prognosis. 11/07: Decreased heat rate and fever today. No improvement in neuro status. 11/08: Continued problems with severe agitation. 11/09: Will need to start librium. He is very tolerant to propofol and fentanyl and at risk to disconnect ventilator. Still requiring elevated PEEP - frothy edema fluid otherwise. 11/10: Prerenal azotemia developing, will reduce bumex by 50%. No change in neurological status. 11/11: Renal function acceptable; purposefully running a little dry. No change in neurological function. Objective Vital Signs Date Time Temp Pulse Resp B/P Pulse Ox O2 Delivery O2 Flow Rate FiO2 11/11/16 08:32 16 11/11/16 08:00 105 11/11/16 08:00 40 11/11/16 08:00 99.9 112/78 96 11/11/16 07:00 Mechanical Ventilator Intake and Output 11/10/16 11/10/16 11/11/16 08:00 16:00 00:00 Intake Total 1206 ml 1327 ml 1214 ml Output Total 1025 ml 825 ml 500 ml Balance 181 ml 502 ml 714 ml Result Diagram: 11/10/16 0811/11/16 0515 Objective Remarks GENERAL: Young male, lying in bed, encephalopathic, trach in place, on a ventilator HEENT: Normocephalic. Atraumatic. Pupils equal, round, reactive, conjugate. Mucous membranes are moist NECK: Trachea is midline. Neck veins full. CHEST: Tracheostomy in place, site clean. Good crow air movement. Few crackles only. CARDIOVASCULAR: Tachycardic rate, regular rhythm. Sinus by telemetry. ABDOMEN: Soft, nontender, nondistended. No guarding. PEG tube in place. BACK: Sacral decubitus. MUSCULOSKELETAL: Pulses 2+. No peripheral edema. NEUROLOGICAL: Opens eyes intermittently spontaneously. Tracks intermittently with his eyes but does not focus or follow. Does not follow commands. Withdraws 4 limbs, moves all extremities spontaneously. Left upper extremity minimal strength. A/P Assessment and Plan Assessment: This is a 26-year-old male with infective aortic valve endocarditis , intracerebral septic emboli with intracerebral abscess and hemorrhagic conversion of infarctions, severe CHF exacerbation secondary to valvulopathy, severe persistent encephalopathy, chronic respiratory failure. He re-presents from [facility] for ongoing management. Based on his echo, along with the input from outside hospital consultants, I agree with their assessment that he is likely not a surgical candidate at this time. At this point, without surgery, he would certainly , and with surgery, likely given his multiple medical comorbidities, he may . Given that he is young, I think it is reasonable to give the patient and additional 2 weeks to see if we can medically optimize him from a neurologic and cardiovascular standpoint. Likely this will be unsuccessful given that without surgical repair, the patient will not be able to stay out of heart failure. Patient is DNR now, but continue our aggressive medical management for an additional 2 weeks. If at that time he is not clinically improved, I think that we have a responsibility to the patient to pursue comfort measures at that time. Plan: Infective Aortic Valve Endocarditis -- Abx per ID, Continue IV Oxacillin -- Blood culture 2 from 11/04/16 negative to date -- daily cbc -- Culture for fevers. Severe CHF exacerbation secondary to valvulopathy Severe aortic valve insufficiency -- bumex 2mg iv q8hr -- repeat ISABEL 11/03: severe AI. preserved EF. left pleural effusion -- Pulmonary edema persists. Metabolic alkalosis -- diamox 500mg iv q8h completed --restart for alkalosis and K loss Severe Hypokalemia -- aggressive electrolyte replacement Severe Encephalopathy Septic Intracerebral emboli Multiple CVAs Hemorrhagic conversion of prior CVAs -- continue to hold anticoagulation -- frequent neuro checks Agitated Delirium -- propofol, fentanyl for goal RASS -2 -- add Geodon 10mg IM q8h prn Acute pain associated with decubitus ulcer -- Oxycodone 10mg per tube q4h scheduled Acute on chronic hypoxic respiratory failure -- diuresis as above -- continue PRVC -- CPAP/PS as tolerated -- Wean fio2 for spo2 > 90% Acute protein calorie malnutrition- severe -- continue TF Dispo: -- remain in the ICU. remains critically ill. the family is welcome to pursue inter-facility transfer if they choose. Addendum: Patient pulled out PEG. RN placed new Jerez. Overall impression: CXR clearing after very aggressive diuresis. No fever X 96 hrs. Evaluation ongoing for valve replacement. Severe agitation less after librium started but still requires high dose propofol and fentanyl for vent synchrony. Flash edema problem improved with increased PEEP. All blood cultures negative since 10/06/16. Will add amantadine to help quell agitation. Robert Cartagena MD Nov 11, 2016 10:23
[2016-11-11] MEDS ORDERED: NOREPINEPHRINE-DEXTROSE DRIP 250 ML IV ONE (11:20)
[2016-11-11] MEDS ORDERED: NOREPINEPHRINE INJ 4 MG in SODIUM CHLOR 0.9% 250 ML INJ 246 ML IV SCH (11:30)
[2016-11-11] MEDS: AMANTADINE HCL SOLN 100 MG/10 ML UDC PO SCH (11:52)
[2016-11-11] MEDS ORDERED: NOREPINEPHRINE 4 MG/D5W 250 ML IV SCH (12:00)
[2016-11-11] MEDS: PANTOPRAZOLE SODIUM 40 MG VIAL IV PUSH SCH (13:55)
[2016-11-11] MEDS: ACETAMINOPHEN 325 MG TAB PO PRN ×2 (15:07→23:30)
[2016-11-12] VITALS (13 sets, daily range): BP systolic 88–120; BP diastolic 46–56; PULSE 103–119; RESP 15–19; TEMP 98.8–101.5; O2SAT 93–100
[2016-11-12] MEDS: PROPOFOL 1000 MG/100 ML INJ 100 ML IV SCH ×3 (03:06→21:22)
[2016-11-12] MEDS: OXACILLIN INJ 2 GM in SODIUM CHLORIDE 0.9% INJ 100 ML IV SCH ×5 (03:08→20:04)
[2016-11-12] MEDS: oxyCODONE HCL ORAL CONC 20 MG/ML SYRINGE PO SCH ×6 (03:08→23:00)
[2016-11-12] MEDS: CHLORHEXIDINE GLUCONATE 2 % 1 PACK (2 CLOTHS) TOP SCH (03:08)
[2016-11-12] MEDS: fentaNYL DRIP 250 ML IV SCH ×2 (03:08→21:22)
[2016-11-12 04:53] LABS: AUTOMATED NEUTROPHIL # 9.1 TH/MM3 (1.8-7.7); BASOPHIL % 0.4 % (0.0-2.0); EOSINOPHIL # 0.3 TH/MM3 (0-0.4); EOSINOPHIL % 2.7 % (0.0-4.0); HEMATOCRIT 22.9 % (39.0-51.0); HEMO FLAGS DIFF FINAL; LYMPH % 9.7 % (9.0-44.0); LYMPHOCYTE # 1.1 TH/MM3 (1.0-4.8); MEAN CELL VOLUME 88.1 FL (80.0-100.0); MEAN CORPUSCULAR HEMOGLOBIN 28.7 PG (27.0-34.0); MEAN CORPUSCULAR HGB CONC 32.5 % (32.0-36.0); MONO % 4.8 % (0.0-8.0); NEUT % 82.4 % (16.0-70.0); PLATELET COUNT 181 TH/MM3 (150-450); RED CELL DISTRIBUTION WIDTH 15.7 % (11.6-17.2)
[2016-11-12] MEDS: AMANTADINE HCL SOLN 100 MG/10 ML UDC PO SCH ×2 (06:46→10:20)
[2016-11-12] MEDS: ACETAMINOPHEN 325 MG TAB PO PRN ×3 (06:52→21:25)
[2016-11-12] MEDS: chlordiazePOXIDE 25 MG CAP PO SCH ×2 (08:08→20:04)
[2016-11-12] MEDS: CHLORHEXIDINE 0.12% (ORAL KIT) 15 ML CUP MT SCH ×2 (08:08→20:05)
[2016-11-12] MEDS: METOPROLOL TARTRATE 25 MG TAB PO SCH ×2 (09:55→21:29)
[2016-11-12] MEDS: BUMETANIDE INJ 1 MG/4 ML VIAL IV PUSH SCH ×2 (10:20→23:00)
[2016-11-12] MEDS: ZIPRASIDONE MESYLATE 20 MG VIAL IM SCH ×2 (10:20→23:00)
--- NOTE | 2016-11-12 12:03 | HHI.IDPN ---
Note Infectious Disease Note Patient is sedated. No distress. Temp spike. On vent. Thick mckinley secretions. All lines peripheral. Discussed with RN. 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 Post tracheostomy and PEG. Allergies: Coded Allergies: Hydrocodone (Verified Allergy, Unknown, Nausea/Vomiting, 10/04/16) Mother called Dentist to verify Sulfa (Verified Allergy, Unknown, 09/30/16) Toradol (Verified Allergy, Unknown, 09/30/16) Past Medical History Substance abuse ADHD Degenerative disc disease ANTIBIOTICS: Oxacillin. OBJECTIVE: Vital Signs Date Time Temp Pulse Resp B/P Pulse Ox O2 Delivery O2 Flow Rate FiO2 11/12/16 11:28 17 11/12/16 11:11 94 40 11/12/16 08:00 106 11/12/16 08:00 100.0 106 16 96/46 96 11/12/16 08:00 40 11/12/16 07:37 97 40 11/12/16 07:00 96 Mechanical Ventilator 40 11/12/16 04:00 119 11/12/16 04:00 100.6 119 19 120/56 93 11/12/16 04:00 40 11/12/16 03:55 94 40 11/12/16 01:15 97 40 11/12/16 00:00 101.5 106 16 97/46 100 11/12/16 00:00 40 11/12/16 00:00 106 11/11/16 20:00 113 11/11/16 20:00 98.9 113 19 114/58 97 11/11/16 20:00 40 11/11/16 19:45 100 40 11/11/16 19:00 98 Mechanical Ventilator 40 11/11/16 16:00 101.1 102 15 108/52 95 11/11/16 16:00 40 11/11/16 16:00 102 11/11/16 15:57 94 40 11/11/16 15:47 20 11/11/16 12:00 40 11/11/16 12:00 95 11/11/16 12:00 98.3 95 15 112/72 98 11/11/16 11/11/16 11/12/16 15:00 23:00 07:00 Intake Total 814 ml 1044 ml 1093 ml Output Total 900 ml 500 ml 850 ml Balance -86 ml 544 ml 243 ml Intake IV Total 448 ml 484 ml 547 ml Tube Feeding 366 ml 440 ml 426 ml Other 120 ml 120 ml Output Urine Total 900 ml 500 ml 850 ml Stool Total 0 ml 0 ml 0 ml Laboratory Tests Test 11/12/16 03:51 White Blood Count 11.0 TH/MM3 Red Blood Count 2.60 MIL/MM3 Hemoglobin 7.5 GM/DL Hematocrit 22.9 % Mean Corpuscular Volume 88.1 FL Mean Corpuscular Hemoglobin 28.7 PG Mean Corpuscular Hemoglobin 32.5 % Concent Red Cell Distribution Width 15.7 % Platelet Count 181 TH/MM3 Mean Platelet Volume 8.8 FL Neutrophils (%) (Auto) 82.4 % Lymphocytes (%) (Auto) 9.7 % Monocytes (%) (Auto) 4.8 % Eosinophils (%) (Auto) 2.7 % Basophils (%) (Auto) 0.4 % Neutrophils # (Auto) 9.1 TH/MM3 Lymphocytes # (Auto) 1.1 TH/MM3 Monocytes # (Auto) 0.5 TH/MM3 Eosinophils # (Auto) 0.3 TH/MM3 Basophils # (Auto) 0.0 TH/MM3 CBC Comment DIFF FINAL Differential Comment Laboratory Tests Test 11/11/16 11/12/16 05:15 03:51 Sodium Level 142 MEQ/L Potassium Level 4.1 MEQ/L Chloride Level 106 MEQ/L Carbon Dioxide Level 30.5 MEQ/L Anion Gap 6 MEQ/L Blood Urea Nitrogen 46 MG/DL Creatinine 1.07 MG/DL Estimat Glomerular Filtration 84 ML/MIN Rate Random Glucose 119 MG/DL Calcium Level 9.0 MG/DL Prealbumin 25 MG/DL IMAGING: Chest X-Ray 11/08/16 0400 Signed Impressions: Service Date/Time: October 04:24 - CONCLUSION: Persistent but slightly improved consolidation left lower lung. Diffuse hazy opacities in the central right lung. Cayden Haile MD Head CT 11/07/16 0000 Signed Impressions: Service Date/Time: October 04:12 - CONCLUSION: Stable size of the hemorrhages with surrounding edema right and left parietal regions. Slight decrease in midline shift towards the left. Cayden Haile MD Chest X-Ray 11/03/16 0000 Signed Impressions: Service Date/Time: Thursday, November 03, 2016 10:48 - CONCLUSION: Improving aeration of the lung preciado compared to the prior study. Omari Moya MD GENERAL: No acute distress. On the vent. HEENT: No icterus. No conjunctival erythema. NECK: Supple. No adenopathy. LUNGS: Bilateral rhonchi. CARDIAC: Regular rate and rhythm. (+) 4/6 DALILA LSB. ABDOMEN: Soft, non tender. EXTREMITIES: No CCE. No embolic phenomena. SKIN: No rash. Dry skin. Assessment and Plan IMPRESSION MSSA AV endocarditis. Last positive blood culture 10/04/16. - Severe AI, [employer] septic embolic lesions, abscess. Respiratory failure S/P trach Recent Enterobacter PNA - treated. Cassandra in UC 10/30 Treated. FEVER. ?new nosocomial infection. WBC normal. RECOMMENDATION Continue IV Oxacillin. Culture blood, sputum and urine. Monitor Temps. Nemesio Jackson MD Nov 12, 2016 12:03
[2016-11-12] MEDS: PANTOPRAZOLE SODIUM 40 MG VIAL IV PUSH SCH (12:52)
[2016-11-12 13:36] LABS: BACTERIA, URINE RARE /hpf; BLOOD, URINE MOD (NEG); COMMENT (UR) CATH-CULTURE IND; CULTURE IF INDICATED CATH CULTURE IND; GLUCOSE,URINE NEG (NEG); HYALINE CAST, URINE 4 /lpf (RARE); KETONE, URINE NEG (NEG); MUCUS URINE FEW /lpf (OCC); NITRITE,URINE NEG (NEG); SQUAMOUS EPITHELIAL CELL URINE 2 /hpf (0-5); URINE COLOR YELLOW (YELLW/STRAW)
--- NOTE | 2016-11-12 13:46 | HHI.CCPN ---
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 His course was complicated by persistent respiratory failure requiring tracheostomy, intracerebral abscess, and severe aortic insufficiency with at least 4 episodes of flash pulmonary edema and near fatal hypoxic respiratory failure. He was evaluated by 2 cardio thoracic surgeons at this institution and deemed not to be a surgical candidate. He was then transferred to [facility] for an outside opinion, where cardiac thoracic surgery at that facility along with infectious disease and neurology at that facility deemed him to be not a surgical candidate. He reports to [facility] in transfer back from [facility]. He remained stable without change and acute clinical status. He is still intubated and encephalopathic. Additional history is unobtainable from the patient. Subjective: 11/04: agitation persists. cr slightly better. no significant change. ID prefers to change back to oxacillin. another long family discussion today: family has found a facility in [place] they are interested in transferring him to for 3rd opinion. 11/05: Patient remains heavily sedated with propofol and fentanyl for agitation. Severe agitation causes him to go into flash pulmonary edema. On sedation lightening patient moves uncontrollably. Otherwise have been stable overnight. 11/06: CXR with continued pulmonary interstitial edema and venous congestion. RV , PA enlarged consistent with chronic overload. Tmax 99. We have produced a prerenal azotemia appropriately so and oxygen diffusion remains acceptable. This remains uncompensated heart failure from a mechanical problem with a poor prognosis. 11/07: Decreased heat rate and fever today. No improvement in neuro status. 11/08: Continued problems with severe agitation. 11/09: Will need to start librium. He is very tolerant to propofol and fentanyl and at risk to disconnect ventilator. Still requiring elevated PEEP - frothy edema fluid otherwise. 11/10: Prerenal azotemia developing, will reduce bumex by 50%. No change in neurological status. 11/11: Renal function acceptable; purposefully running a little dry. No change in neurological function. 11/12: No change in neuro status. Objective Vital Signs Date Time Temp Pulse Resp B/P Pulse Ox O2 Delivery O2 Flow Rate FiO2 11/12/16 12:00 104 11/12/16 12:00 40 11/12/16 12:00 100.2 17 88/50 98 11/12/16 07:00 Mechanical Ventilator Intake and Output 11/11/16 11/11/16 11/12/16 08:00 16:00 00:00 Intake Total 795 ml 814 ml 1044 ml Output Total 750 ml 900 ml 500 ml Balance 45 ml -86 ml 544 ml Result Diagram: 11/12/16 0351 11/11/16 0515 Objective Remarks GENERAL: Young male, lying in bed, encephalopathic, trach in place, on a ventilator HEENT: Normocephalic. Atraumatic. Pupils equal, round, reactive, conjugate. Mucous membranes are moist NECK: Trachea is midline. Neck veins full. CHEST: Tracheostomy in place, site clean. Good crow air movement. Few crackles only. CARDIOVASCULAR: Tachycardic rate, regular rhythm. Sinus by telemetry. ABDOMEN: Soft, nontender, nondistended. No guarding. PEG tube in place. BACK: Sacral decubitus. MUSCULOSKELETAL: Pulses 2+. No peripheral edema. NEUROLOGICAL: Opens eyes intermittently spontaneously. Tracks intermittently with his eyes but does not focus or follow. Does not follow commands. Withdraws 4 limbs, moves all extremities spontaneously. Left upper extremity minimal strength. A/P Assessment and Plan Assessment: This is a 26-year-old male with infective aortic valve endocarditis , intracerebral septic emboli with intracerebral abscess and hemorrhagic conversion of infarctions, severe CHF exacerbation secondary to valvulopathy, severe persistent encephalopathy, chronic respiratory failure. He re-presents from [facility] for ongoing management. Based on his echo, along with the input from outside hospital consultants, I agree with their assessment that he is likely not a surgical candidate at this time. At this point, without surgery, he would certainly , and with surgery, likely given his multiple medical comorbidities, he may . Given that he is young, I think it is reasonable to give the patient and additional 2 weeks to see if we can medically optimize him from a neurologic and cardiovascular standpoint. Likely this will be unsuccessful given that without surgical repair, the patient will not be able to stay out of heart failure. Patient is DNR now, but continue our aggressive medical management for an additional 2 weeks. If at that time he is not clinically improved, I think that we have a responsibility to the patient to pursue comfort measures at that time. Plan: Infective Aortic Valve Endocarditis -- Abx per ID, Continue IV Oxacillin -- Blood culture 2 from 11/04/16 negative to date -- daily cbc -- Culture for fevers. Severe CHF exacerbation secondary to valvulopathy Severe aortic valve insufficiency -- bumex 2mg iv q8hr -- repeat ISABEL 11/03: severe AI. preserved EF. left pleural effusion -- Pulmonary edema persists. Metabolic alkalosis -- diamox 500mg iv q8h completed --restart for alkalosis and K loss Severe Hypokalemia -- aggressive electrolyte replacement Severe Encephalopathy Septic Intracerebral emboli Multiple CVAs Hemorrhagic conversion of prior CVAs -- continue to hold anticoagulation -- frequent neuro checks Agitated Delirium -- propofol, fentanyl for goal RASS -2 -- add Geodon 10mg IM q8h prn Acute pain associated with decubitus ulcer -- Oxycodone 10mg per tube q4h scheduled Acute on chronic hypoxic respiratory failure -- diuresis as above -- continue PRVC -- CPAP/PS as tolerated -- Wean fio2 for spo2 > 90% Acute protein calorie malnutrition- severe -- continue TF Dispo: -- remain in the ICU. remains critically ill. the family is welcome to pursue inter-facility transfer if they choose. Addendum: Patient pulled out PEG. RN placed new Jerez. Overall impression: CXR clearing after very aggressive diuresis. No fever X 96 hrs. Evaluation ongoing for valve replacement. Severe agitation less after librium started but still requires high dose propofol and fentanyl for vent synchrony. Flash edema problem improved with increased PEEP. All blood cultures negative since 10/06/16. Will add amantadine to help quell agitation. Robert Cartagena MD Nov 12, 2016 13:46
[2016-11-12] MEDS ORDERED: LACTULOSE SYRUP 20 GM/30 ML CUP PEG ONE (17:15)
[2016-11-13] VITALS (13 sets, daily range): BP systolic 106–125; BP diastolic 50–57; PULSE 109–121; RESP 18–24; TEMP 99.5–101; O2SAT 95–100
[2016-11-13] MEDS: PROPOFOL 1000 MG/100 ML INJ 100 ML IV SCH ×5 (02:17→21:50)
[2016-11-13] MEDS: CHLORHEXIDINE GLUCONATE 2 % 1 PACK (2 CLOTHS) TOP SCH (04:00)
[2016-11-13] MEDS: oxyCODONE HCL ORAL CONC 20 MG/ML SYRINGE PO SCH ×6 (04:27→23:19)
[2016-11-13] MEDS: OXACILLIN INJ 2 GM in SODIUM CHLORIDE 0.9% INJ 100 ML IV SCH ×7 (04:28→20:42)
[2016-11-13] MEDS: AMANTADINE HCL SOLN 100 MG/10 ML UDC PO SCH ×2 (06:46→11:40)
[2016-11-13] MEDS: fentaNYL DRIP 250 ML IV SCH ×2 (06:57→17:30)
--- NOTE | 2016-11-13 08:36 | HHI.CCPN ---
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 His course was complicated by persistent respiratory failure requiring tracheostomy, intracerebral abscess, and severe aortic insufficiency with at least 4 episodes of flash pulmonary edema and near fatal hypoxic respiratory failure. He was evaluated by 2 cardio thoracic surgeons at this institution and deemed not to be a surgical candidate. He was then transferred to [facility] for an outside opinion, where cardiac thoracic surgery at that facility along with infectious disease and neurology at that facility deemed him to be not a surgical candidate. He reports to [facility] in transfer back from [facility]. He remained stable without change and acute clinical status. He is still intubated and encephalopathic. Additional history is unobtainable from the patient. Subjective: 11/04: agitation persists. cr slightly better. no significant change. ID prefers to change back to oxacillin. another long family discussion today: family has found a facility in [place] they are interested in transferring him to for 3rd opinion. 11/05: Patient remains heavily sedated with propofol and fentanyl for agitation. Severe agitation causes him to go into flash pulmonary edema. On sedation lightening patient moves uncontrollably. Otherwise have been stable overnight. 11/06: CXR with continued pulmonary interstitial edema and venous congestion. RV , PA enlarged consistent with chronic overload. Tmax 99. We have produced a prerenal azotemia appropriately so and oxygen diffusion remains acceptable. This remains uncompensated heart failure from a mechanical problem with a poor prognosis. 11/07: Decreased heat rate and fever today. No improvement in neuro status. 11/08: Continued problems with severe agitation. 11/09: Will need to start librium. He is very tolerant to propofol and fentanyl and at risk to disconnect ventilator. Still requiring elevated PEEP - frothy edema fluid otherwise. 11/10: Prerenal azotemia developing, will reduce bumex by 50%. No change in neurological status. 11/11: Renal function acceptable; purposefully running a little dry. No change in neurological function. 11/12: No change in neuro status. 11/13: Afebrile. No change in neuro status. Objective Vital Signs Date Time Temp Pulse Resp B/P Pulse Ox O2 Delivery O2 Flow Rate FiO2 11/13/16 08:10 100 40 11/13/16 05:27 20 11/13/16 04:00 110 11/13/16 04:00 100.3 114/55 11/12/16 19:00 Mechanical Ventilator Intake and Output 11/12/16 11/12/16 11/13/16 08:00 16:00 00:00 Intake Total 1093 ml 1155 ml 1121 ml Output Total 850 ml 900 ml 550 ml Balance 243 ml 255 ml 571 ml Result Diagram: 11/12/16 0351 11/11/16 0515 Objective Remarks GENERAL: Young male, lying in bed, encephalopathic, trach in place, on a ventilator HEENT: Normocephalic. Atraumatic. Pupils equal, round, reactive, conjugate. Mucous membranes are moist NECK: Trachea is midline. Neck veins full. CHEST: Tracheostomy in place, site clean. Good crow air movement. Few crackles only. CARDIOVASCULAR: Tachycardic rate, regular rhythm. Sinus by telemetry. ABDOMEN: Soft, nontender, nondistended. No guarding. PEG tube in place. BACK: Sacral decubitus. MUSCULOSKELETAL: Pulses 2+. No peripheral edema. NEUROLOGICAL: Opens eyes intermittently spontaneously. Tracks intermittently with his eyes but does not focus or follow. Does not follow commands. Withdraws 4 limbs, moves all extremities spontaneously. Left upper extremity minimal strength. Less agitated today. A/P Assessment and Plan Assessment: This is a 26-year-old male with infective aortic valve endocarditis , intracerebral septic emboli with intracerebral abscess and hemorrhagic conversion of infarctions, severe CHF exacerbation secondary to valvulopathy, severe persistent encephalopathy, chronic respiratory failure. He re-presents from [facility] for ongoing management. Based on his echo, along with the input from outside hospital consultants, I agree with their assessment that he is likely not a surgical candidate at this time. At this point, without surgery, he would certainly , and with surgery, likely given his multiple medical comorbidities, he may . Given that he is young, I think it is reasonable to give the patient and additional 2 weeks to see if we can medically optimize him from a neurologic and cardiovascular standpoint. Likely this will be unsuccessful given that without surgical repair, the patient will not be able to stay out of heart failure. Patient is DNR now, but continue our aggressive medical management for an additional 2 weeks. If at that time he is not clinically improved, I think that we have a responsibility to the patient to pursue comfort measures at that time. Plan: Infective Aortic Valve Endocarditis -- Abx per ID, Continue IV Oxacillin -- Blood culture 2 from 11/04/16 negative to date -- daily cbc -- Culture for fevers. Severe CHF exacerbation secondary to valvulopathy Severe aortic valve insufficiency -- bumex 2mg iv q8hr -- repeat ISABEL 11/03: severe AI. preserved EF. left pleural effusion -- Pulmonary edema persists. Metabolic alkalosis -- diamox 500mg iv q8h completed --restart for alkalosis and K loss Severe Hypokalemia -- aggressive electrolyte replacement Severe Encephalopathy Septic Intracerebral emboli Multiple CVAs Hemorrhagic conversion of prior CVAs -- continue to hold anticoagulation -- frequent neuro checks Agitated Delirium -- propofol, fentanyl for goal RASS -2 -- add Geodon 10mg IM q8h prn Acute pain associated with decubitus ulcer -- Oxycodone 10mg per tube q4h scheduled Acute on chronic hypoxic respiratory failure -- diuresis as above -- continue PRVC -- CPAP/PS as tolerated -- Wean fio2 for spo2 > 90% Acute protein calorie malnutrition- severe -- continue TF Dispo: -- remain in the ICU. remains critically ill. the family is welcome to pursue inter-facility transfer if they choose. Addendum: Patient pulled out PEG. RN placed new Jerez. Overall impression: CXR clearing after very aggressive diuresis. No fever X 96 hrs. Evaluation ongoing for valve replacement. Severe agitation less after librium started but still requires high dose propofol and fentanyl for vent synchrony. Flash edema problem improved with increased PEEP. All blood cultures negative since 10/06/16. Started amantadine to help quell agitation, taper down propofol. Robert Cartagena MD Nov 13, 2016 08:36
[2016-11-13] MEDS: CHLORHEXIDINE 0.12% (ORAL KIT) 15 ML CUP MT SCH ×2 (08:43→20:00)
[2016-11-13] MEDS: LACTULOSE SYRUP 20 GM/30 ML CUP PEG SCH (08:43)
[2016-11-13] MEDS: chlordiazePOXIDE 25 MG CAP PO SCH ×2 (08:43→20:42)
[2016-11-13] MEDS: METOPROLOL TARTRATE 25 MG TAB PO SCH ×2 (08:43→21:49)
[2016-11-13] MEDS: BUMETANIDE INJ 1 MG/4 ML VIAL IV PUSH SCH ×2 (11:39→23:19)
[2016-11-13] MEDS: ZIPRASIDONE MESYLATE 20 MG VIAL IM SCH ×2 (11:40→23:19)
--- NOTE | 2016-11-13 11:48 | HHI.IDPN ---
Note Infectious Disease Note Patient is sedated. No distress. Low grade fever. On vent. 60% FIO2. BP stable. Discussed with RN. 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 Post tracheostomy and PEG. Allergies: Coded Allergies: Hydrocodone (Verified Allergy, Unknown, Nausea/Vomiting, 10/04/16) Mother called Dentist to verify Sulfa (Verified Allergy, Unknown, 09/30/16) Toradol (Verified Allergy, Unknown, 09/30/16) Past Medical History Substance abuse ADHD Degenerative disc disease ANTIBIOTICS: Oxacillin. OBJECTIVE: Vital Signs Date Time Temp Pulse Resp B/P Pulse Ox O2 Delivery O2 Flow Rate FiO2 11/13/16 08:10 100 40 11/13/16 05:27 20 11/13/16 04:00 110 11/13/16 04:00 95 40 11/13/16 04:00 100.3 110 21 114/55 98 11/13/16 04:00 40 11/13/16 01:05 95 40 11/13/16 00:00 40 11/13/16 00:00 113 11/13/16 00:00 100.6 113 20 125/57 97 11/12/16 22:15 95 40 11/12/16 20:00 100.1 109 19 114/53 97 11/12/16 20:00 109 11/12/16 20:00 40 11/12/16 19:14 95 40 11/12/16 19:00 98 Mechanical Ventilator 40 11/12/16 16:07 100 40 11/12/16 16:00 98.8 105 15 104/51 97 11/12/16 16:00 105 11/12/16 16:00 40 11/12/16 12:00 104 11/12/16 12:00 40 11/12/16 12:00 100.2 103 17 88/50 98 11/12/16 11/12/16 11/13/16 15:00 23:00 07:00 Intake Total 1155 ml 1121 ml 988 ml Output Total 900 ml 550 ml 950 ml Balance 255 ml 571 ml 38 ml Intake IV Total 569 ml 599 ml 447 ml Tube Feeding 486 ml 402 ml 421 ml Other 100 ml 120 ml 120 ml Output Urine Total 900 ml 550 ml 950 ml Stool Total 0 ml 0 ml 0 ml Laboratory Tests Test 11/12/16 03:51 White Blood Count 11.0 TH/MM3 Red Blood Count 2.60 MIL/MM3 Hemoglobin 7.5 GM/DL Hematocrit 22.9 % Mean Corpuscular Volume 88.1 FL Mean Corpuscular Hemoglobin 28.7 PG Mean Corpuscular Hemoglobin 32.5 % Concent Red Cell Distribution Width 15.7 % Platelet Count 181 TH/MM3 Mean Platelet Volume 8.8 FL Neutrophils (%) (Auto) 82.4 % Lymphocytes (%) (Auto) 9.7 % Monocytes (%) (Auto) 4.8 % Eosinophils (%) (Auto) 2.7 % Basophils (%) (Auto) 0.4 % Neutrophils # (Auto) 9.1 TH/MM3 Lymphocytes # (Auto) 1.1 TH/MM3 Monocytes # (Auto) 0.5 TH/MM3 Eosinophils # (Auto) 0.3 TH/MM3 Basophils # (Auto) 0.0 TH/MM3 CBC Comment DIFF FINAL Differential Comment Laboratory Tests Test 11/12/16 03:51 Prealbumin 25 MG/DL Microbiology Date/Time Procedure Status Source Growth 11/12/16 13:00 Gram Stain - Final Resulted Sputum Endotracheal 11/12/16 13:00 Sputum Culture Resulted Sputum Endotracheal Pending 11/12/16 13:00 Urine Culture - Preliminary Resulted Urine Catheterized Urine Cassandra Albicans 11/12/16 14:45 Aerobic Blood Culture - Preliminary Resulted Blood Peripheral NO GROWTH IN 1 DAY 11/12/16 14:45 Anaerobic Blood Culture - Preliminary Resulted Blood Peripheral NO GROWTH IN 1 DAY 11/12/16 14:50 Aerobic Blood Culture - Preliminary Resulted Blood Peripheral NO GROWTH IN 1 DAY 11/12/16 14:50 Anaerobic Blood Culture - Preliminary Resulted Blood Peripheral NO GROWTH IN 1 DAY IMAGING: Chest X-Ray 11/08/16 0400 Signed Impressions: Service Date/Time: October 04:24 - CONCLUSION: Persistent but slightly improved consolidation left lower lung. Diffuse hazy opacities in the central right lung. Cayden Haile MD Head CT 11/07/16 0000 Signed Impressions: Service Date/Time: October 04:12 - CONCLUSION: Stable size of the hemorrhages with surrounding edema right and left parietal regions. Slight decrease in midline shift towards the left. Cayden Haile MD Chest X-Ray 11/03/16 0000 Signed Impressions: Service Date/Time: Thursday, November 03, 2016 10:48 - CONCLUSION: Improving aeration of the lung preciado compared to the prior study. Omari Moya MD GENERAL: No acute distress. On the vent. HEENT: No icterus. No conjunctival erythema. NECK: Supple. No adenopathy. LUNGS: Bilateral rhonchi. CARDIAC: Regular rate and rhythm. (+) 4/6 DALILA LSB. ABDOMEN: Soft, non tender. EXTREMITIES: No CCE. No embolic phenomena. SKIN: No rash. Dry skin. Assessment and Plan IMPRESSION MSSA AV endocarditis. Last positive blood culture 10/04/16. - Severe AI, [employer] septic embolic lesions, abscess. Respiratory failure S/P trach Recent Enterobacter PNA - treated. Cassandra in UC 10/30 Treated. Now has candiduria. FEVER. ?new nosocomial infection. WBC normal. RECOMMENDATION Continue IV Oxacillin. Start PO Fluconazole. Monitor culture of blood, sputum. Monitor Temps. Follow WBC. Nemesio Jackson MD Nov 13, 2016 11:48
[2016-11-13] MEDS: FLUCONAZOLE 100 MG TAB PO SCH (12:05)
--- NOTE | 2016-11-13 12:36 | HHI.HCPN ---
Reason for visit a. To assist with evaluation and management of symptoms including: dyspnea, agitation, pain, encephalopathy , malnutrition b. To assist medical decision maker(s) with: better understanding of current medical conditions; weighing benefits/burdens of medical treatment options; making medical treatment decisions. Subjective/Interval History 26-year-old patient was re-admitted/transferred back to [facility] in 11/03 from [facility], for ongoing management of endocarditis , aortic valve vegetation. He was transferred to [facility] last week for second opinion regarding and cardiac thoracic surgery for aortic valve replacement. He was evaluated there by their infectious disease, neurology, they deemed him not to be a surgical candidate and thus he was transferred back to [facility]. He has remained stable without changes to his clinical status. Remains intubated, encephalopathic.Palliative care was reconsulted to assist with support to the family, continue with clarification of goals of treatment Patient seen and examined in ICU. No family at bedside. Nurse Bradley at bedside. D/w Associate Professor Of Management -- Dr Dominguez spoke w [facility] over the weekend, reported that 2 neurosurgeons there evaluated recent scans, team evaluation there did not feel pt a good surgical candidate, declined there. Pt approaching 2-week timeline to cont to monitor for improvements as was prev discusses w family by solar photovoltaic designer. (Saturday). BC from 11/12 w no growth. Urine from 11/11 + eddie--> ID started on fluconazole. Afebrile. Cont to have agitation, restlessness, pulling at tubes etc, requiring multiple sedatives-- now on IV fentanyl 250mcgs hr, diprivan 50 mcgs/kg/min, + librium, geodon. Amantadine has been added. On scheduled oxycodone for grimacing/presumed pain---10mg per PEG Q 4 hr. To exam, pt sedated/appears comfortable, did not vigorously stimulate for exam. Eyes closed. Moving 4 extremities spont. + restraints BUE. . patient is known to palliative care service from prior admission during September, additional HPI as per palliative care consult 10/03/16: He initially presented via EMS 09/30/16 for altered mental status. He apparently been last seen normal by his landlord 2 days prior. Patient apparently presented to the ED 2 days prior for diagnosis of allergic reaction, at that time reporting low-grade fever and congestion. He at that time reported being seen 10 days prior by another physician and had been prescribed antibiotics for a fever. He then developed a red rash and peeling on his hands and feet, complains of generalized weakness and lightheadedness at that presentation. At that time he was prescribed prednisone and to follow-up with local provider. On day of presentation landlord found patient altered and notified EMS. Patient lethargic at presentation and unable to provide additional information. ED record notes family members were called, patient reported to have a rash on his hands and feet for the past 2 weeks and had been seen by a local physician. Family also reporting patient with a history of substance abuse, recently in rehabilitation, last rehabilitation a year ago. * ED course: Patient obtunded at arrival. Lactic acid 3.7, troponin 11.9, alkaline phosphatase 175 area total CK 372. BUN 54, creatinine 1.69, GFR 49. Glucose 116. Salicylate and acetaminophen levels normal. Urine drug screen positive for opiates, amphetamine (on ADDERALL FOR ADHD). Alcohol negative. He was intubated sedated. CXR with no acute process identified.Head CT= significant areas of infarction in the right frontal, temporal, and cerebellar regions as well as a small area of subarachnoid hemorrhage in the superior right parietal region. Patient has early 3 mm of midline shift as well as effacement on the right. * Echo: "hyperdynamic left ventricular function and what appears to be aortic valve vegetations and I measured to be approximally 0.9 x 8.8 cm. This is associated with what appears to be severe aortic regurgitation. There is no pericardial effusion. Right ventricular function is preserved." ID, neurosurgery consulted. Cultures pending. * Infectious disease: Initial cultures sputum :gram-positive cocci pairs and clusters, blood culture gram-positive cocci. CXR worsening. Patient continued on vancomycin, Rocephin, following cultures. * Neurosurgery: Patient with multiple acute septic CVAs, cerebral edema, small subarachnoid hemorrhage, midline shift, metabolic encephalopathy. Follow-up CT , repeat CT for any changes in neuro status. Continue 3% saline, keep sodium elevated ADDITIONAL OUT PT HX PER DOCUMENTS/ RXs PROVIDED BY FAMILY: * EKG, lower spine x-rays per Dr. Prather 07/09/16 * 09/07/16 RX ibuprofen TO replace meloxicam for joint pain, + Adderall 30 mg daily ([facility] pharmacy) * 09/13/16 RX omeprazole, clindamycin 150 mg 4 tablets twice a day, acyclovir 200 mg 1 by mouth 5 times a day [address] Herrera ([facility] pharmacy) * 09/14/16- RX prednisone Dr. Prather, doxycycline 100 mg 1 by mouth every 12 hours; family reports diagnosed with a "viral illness 09/17" ([facility] pharmacy) * 09/[address] Bj Luis Tylenol 3 quantity 20, acyclovir 200 mg 1 by mouth 5 times a day 10 days * s/p tracheostomy, PEG tube week of 10/15/16 * During clinical course through September patient was some neurological improvement at some point weaning off sedation following commands, localizing, arousable though with ongoing episodes of agitation requiring various sedatives including Precedex, fentanyl, Diprivan. * Follow-up CT identified small brain hemorrhage; at that point patient was not a candidate for cardiac surgical intervention. CTS evaluated and noted patient would require at least 4 weeks on antibiotics, and at least 6 weeks out from brain hemorrhage before surgical intervention could be considered (follow-up CT brain stable) * Repeat echo again noted aortic vegetation, with possible perforation of aortic valve leaflets; [facility] again reconsulted to consider surgery patient continues to have episodes of pulmonary edema felt to be secondary to severe aortic valve insufficiency. Concern that without surgical intervention patient may not tolerate ventilator weaning due to cardiac status. During periods of sedation weaning patient is following commands. At one point off of mechanical vent tolerating T piece for couple of days at a time though required ventilation again due to pulmonary edema, hypoxic respiratory failure. [facility] reevaluation determines not a good surgical candidate, he was evaluated by [facility], subsequently declined. [facility] excepted for evaluation and possible valve replacement. * Was transferred to [facility] 10/31/16. Family/friend interactions Following exam call to pt mother Felicita, provided update on condition, assessment. Requested meeting with her , pt father, sister tomorrow w medical team to review conditions, goals, prognosis, and limited options going forward, treatment plans going forward. She is open to meeting tomorrow, sometime between 1-3 pm, more specific time to be coordinated tomorrow am. Call to Anay, pt sister. Provided update, review of current condition, assessments. Explore meeting tomorrow to review conditions, prognosis, tx options etc, she will join via conference call. . Advance Directives Living Will: Never completed Health Care Surrogate: Never completed Durable Power of Regrinder Operator: Never completed Objective Vital Signs Date Time Temp Pulse Resp B/P Pulse Ox O2 Delivery O2 Flow Rate FiO2 11/13/16 12:04 98 60 11/13/16 08:10 100 40 11/13/16 05:27 20 11/13/16 04:00 110 11/13/16 04:00 95 40 11/13/16 04:00 100.3 110 21 114/55 98 11/13/16 04:00 40 11/13/16 01:05 95 40 11/13/16 00:00 40 11/13/16 00:00 113 11/13/16 00:00 100.6 113 20 125/57 97 11/12/16 22:15 95 40 11/12/16 20:00 100.1 109 19 114/53 97 11/12/16 20:00 109 11/12/16 20:00 40 11/12/16 19:14 95 40 11/12/16 19:00 98 Mechanical Ventilator 40 11/12/16 16:07 100 40 11/12/16 16:00 98.8 105 15 104/51 97 11/12/16 16:00 105 11/12/16 16:00 40 Intake & Output 11/13/16 11/13/16 07:00 19:00 Intake Total 2109 ml Output Total 1500 ml Balance 609 ml Intake IV Total 1046 ml Tube Feeding 823 ml Other 240 ml Output Urine Total 1500 ml Stool Total 0 ml Physical Exam CONSTITUTIONAL/GENERAL: This is an adequately nourished patient, sedated on [facility] vent TUBES/LINES/DRAINS: PIV LUE x2,Jerez catheter, PEG tube, rectal drain, SCDs SKIN: No jaundice, rashes, or lesions. Reported stage III wound to sacrum not visualized. Skin temperature warm, dry. EYES: Eyes closed ENT: Nose without bleeding or purulent drainage. Mouth closed NECK: Trachea, tracheostomy midline. Supple, nontender. CARDIOVASCULAR: Heart regular, no murmur. peripheral pulses palpable RESPIRATORY/CHEST: Symmetric, unlabored respirations via tracheostomy to mechanical vent. Some scattered rhonchi throughout. Breath sounds equal bilaterally. GASTROINTESTINAL: Abdomen soft, flat, no apparent tenderness though limited assessment, nondistended. No hepato-splenomegaly, or palpable masses. Bowel sounds present. TF infusing to PEG site asymptomatic NEUROLOGICAL: Sedated on mechanical vent. appears comfortable/nonresponsive to my exam. Moves extremities spontaneously PSYCHIATRIC: No obvious anxiety/depression--limited assessment due to clinical condition, sedatives. . Diagnostic Tests Laboratory Laboratory Tests Test 11/11/16 11/12/16 11/12/16 05:15 03:51 13:00 Sodium Level 142 MEQ/L (136-145) Potassium Level 4.1 MEQ/L (3.5-5.1) Chloride Level 106 MEQ/L (98-107) Carbon Dioxide Level 30.5 MEQ/L (21.0-32.0) Anion Gap 6 MEQ/L (5-15) Blood Urea Nitrogen 46 MG/DL (7-18) Creatinine 1.07 MG/DL (0.60-1.30) Estimat Glomerular Filtration 84 ML/MIN (>89) Rate Random Glucose 119 MG/DL (74-106) Calcium Level 9.0 MG/DL (8.5-10.1) White Blood Count 11.0 TH/MM3 (4.0-11.0) Red Blood Count 2.60 MIL/MM3 (4.50-5.90) Hemoglobin 7.5 GM/DL (13.0-17.0) Hematocrit 22.9 % (39.0-51.0) Mean Corpuscular Volume 88.1 FL (80.0-100.0) Mean Corpuscular Hemoglobin 28.7 PG (27.0-34.0) Mean Corpuscular Hemoglobin 32.5 % Concent (32.0-36.0) Red Cell Distribution Width 15.7 % (11.6-17.2) Platelet Count 181 TH/MM3 (150-450) Mean Platelet Volume 8.8 FL (7.0-11.0) Neutrophils (%) (Auto) 82.4 % (16.0-70.0) Lymphocytes (%) (Auto) 9.7 % (9.0-44.0) Monocytes (%) (Auto) 4.8 % (0.0-8.0) Eosinophils (%) (Auto) 2.7 % (0.0-4.0) Basophils (%) (Auto) 0.4 % (0.0-2.0) Neutrophils # (Auto) 9.1 TH/MM3 (1.8-7.7) Lymphocytes # (Auto) 1.1 TH/MM3 (1.0-4.8) Monocytes # (Auto) 0.5 TH/MM3 (0-0.9) Eosinophils # (Auto) 0.3 TH/MM3 (0-0.4) Basophils # (Auto) 0.0 TH/MM3 (0-0.2) CBC Comment DIFF FINAL Differential Comment Prealbumin 25 MG/DL (20-40) Urine Color YELLOW (YELLW/STRAW) Urine Turbidity CLOUDY (CLEAR) Urine pH 7.0 (5.0-8.5) Urine Specific [place] 1.014 (1.002-1.035) Urine Protein 30 mg/dL (NEG-TRACE) Urine Glucose (UA) NEG mg/dL (NEG) Urine Ketones NEG mg/dL (NEG) Urine Occult Blood MOD (NEG) Urine Nitrite NEG (NEG) Urine Bilirubin NEG (NEG) Urine Urobilinogen 2.0 MG/DL (LESS THAN 2.0) Urine Leukocyte Esterase TRACE (NEG) Urine RBC 68 /hpf (0-3) Urine WBC 26 /hpf (0-5) Urine Squamous Epithelial 2 /hpf (0-5) Cells Urine Bacteria RARE /hpf (NONE) Urine Hyaline Casts 4 /lpf (RARE) Urine Mucus FEW /lpf (OCC) Urine Yeast with Hyphae FEW (NONE) Urine Yeast (Budding) MANY (NONE) Microscopic Urinalysis Comment CATH-CULTURE IND Result Diagram: 11/12/16 0351 11/11/16 0515 Microbiology Microbiology Date/Time Procedure Status Source Growth 11/12/16 13:00 Gram Stain - Final Resulted Sputum Endotracheal 11/12/16 13:00 Sputum Culture Resulted Sputum Endotracheal Pending 11/12/16 13:00 Urine Culture - Preliminary Resulted Urine Catheterized Urine Eddie Albicans 11/12/16 14:45 Aerobic Blood Culture - Preliminary Resulted Blood Peripheral NO GROWTH IN 1 DAY 11/12/16 14:45 Anaerobic Blood Culture - Preliminary Resulted Blood Peripheral NO GROWTH IN 1 DAY 11/12/16 14:50 Aerobic Blood Culture - Preliminary Resulted Blood Peripheral NO GROWTH IN 1 DAY 11/12/16 14:50 Anaerobic Blood Culture - Preliminary Resulted Blood Peripheral NO GROWTH IN 1 DAY Imaging Last Impressions Chest X-Ray 11/08/16 0400 Signed Impressions: Service Date/Time: October 04:24 - CONCLUSION: Persistent but slightly improved consolidation left lower lung. Diffuse hazy opacities in the central right lung. Cayden Haile MD Head CT 11/07/16 0000 Signed Impressions: Service Date/Time: October 04:12 - CONCLUSION: Stable size of the hemorrhages with surrounding edema right and left parietal regions. Slight decrease in midline shift towards the left. Cayden Haile MD Procedures 6/5tracheostomy, PEG tube . Assessment and Plan Disease Oriented Problem List: (1) Aortic valve endocarditis (2) CVA (cerebral vascular accident) Comment: multiple CVAs, Septic Intracerebral emboli (3) Cerebral septic emboli (4) Aortic valve insufficiency Comment: severe (5) CHF (congestive heart failure) Comment: secondary to valvulopathy . (6) Acute on chronic respiratory failure with hypoxia (7) Encephalopathy (8) Intracranial hemorrhage Comment: Hemorrhagic conversion of prior CVAs (9) Previous IVDU (10) Severe protein-calorie malnutrition Symptom Scale: (1) Dyspnea 0-10 Scale: Unable to quantify (2) Encephalopathy 0-10 Scale: Unable to quantify (3) Agitation 0-10 Scale: Unable to quantify (4) Pain 0-10 Scale: Unable to quantify (5) Malnutrition 0-10 Scale: Unable to quantify Comment: Albumin 2.7. Pertinent Non-Medical Issues Psychosocial:originally from [place], lived in [place] since . HS education. Was incarcerated and then in drug rehabilitation in [facility]. 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 Has 1 sister Elizabeth (Anay) ,lives in [place], mother lives in [place]. Father (parents ) lived in [place] with support from family there. Supported by local friends, coworkers, apartment landlord. Spiritual:believes in God, no particular affiliation. would want ongoing credit authorizer support. Legal:Patient is not able to participate in decision-making due to clinical condition. He is not . Per [place] statutes his parents would be legal decision makers, mother is serving as primary supported by his sister and father. Mother has POA paperwork, however this does NOT include medical decision making. Ethical issues impacting care: Important Contacts mother Felicita Roberts [phone] sister Elizabeth Rios [phone] father Pradeep Rios [phone] . Prognosis This unfortunate 26-year-old man initially presented to the ED in September with altered mental status, he has been found to have mixed septic/cardiogenic shock with multiple areas of septic emboli CVA secondary to aortic valve endocarditis. He then developed a small ICH. He has had prolonged ICU course, with episodes of agitation, pulmonary edema and hypoxic respiratory failure, 2/ 2 to severe aortic valve insufficiency. + Aortic valve leaflet perforations. [facility]S evaluated here for possible valve replacement, patient not felt to be good surgical candidate. Was declined by [facility]. Was transferred and evaluated by [facility] at [facility] last week, also declined due to not felt to be good surgical candidate, transferred back to [facility] 11/03/16. Remains in critical condition, medical treatments maximized. Patient with very poor chance of survival without a valve replacement, and is currently not a candidate for a valve due to poor clinical condition. Not felt likely to improve enough to obtain valve replacement. High risk for ongoing clinical complications and . . Code Status: No Code Plan * Legal decision maker: Patient is not able to participate in decision-making due to clinical condition. He is not . Per [place] statutes his parents would be legal decision makers, mother is serving as primary supported by his sister and father. Mother has POA paperwork however this does not include medical decision-making. * Goals: During prior palliative consultation and multiple interactions palliative has met w pt mother, father, sister at length. Patient sister appears to have a reasonable understanding of conditions, prognosis. Patient mother , father appear to have a very simple understanding of conditions and prognosis. At that time family's goals were aggressive, Patient's mother is hoping for a miracle and wants to continue whatever measures available to help patient recover. 11/05/16: Family wishes to continue maximize medical treatments with the hopes of patient condition may possibly improve enough to be considered for valve replacement; they understand he is high risk for not improving, further complications, clinical deterioration. Mother endorses she continues to pray for pt and is hoping for a miracle. She is also looking at various other facilities for possible transfer /evaluation for valve, she is currently looking into/contacting hospital [facility] with [facility] ([facility]), she is hoping to find a surgeon willing to attempt a valve on her son. 11/08/16: goals remain aggressive, awaiting to determine if patient will be accepted for transfer to [facility] in [place]. 11/13/16: goals remain aggressive. Approaching 2 week timeframe as initially discussed w family/solar photovoltaic designer, planned to revisit conditions/goals/options/ consider comfort transition at 2 weeks. Plan for family meeting with solar photovoltaic designer Dr Dominguez or Dr Coats tomorrow 11/14/16 between 1-3pm (actual time to be clarified w mother tomorrow am) to review conditions, prognosis, options/ plan going forward. Mother, father, sister (via phone) to participate. * CODE STATUS: NO CODE/ DNR * SYMPTOMS: --dyspnea- intubated for AMS. remains on mech vent; status post tracheostomy. has had difficulty weaning off of vent/staying off of vent due to agitation, pulmonary edema 2/2 severe aortic valve insufficiency -- agitation- hx substance abuse; hx ADD, on adderall. + Embolic CVA, +new hemorrhage 6/6 to the right temporal lobe (follow-up CT imaging stable) Has had periods of restlessness, agitation ongoing during prolonged hospital course. Has been on various sedatives including Precedex, Diprivan, fentanyl. Has at times when lightened and able to follow commands, moved all 4 extremities. Currently on Geodon 10mg IM Q 12 hr, fentanyl 250/mcgs hr, diprivan 50 mcgs/kg/ min-- restless today during exam. not following commands. -- encephalopathy- multifactorial-- +sepsis, embolic CVA, +new hemorrhage 6/ 6 to the right temporal lobe (follow-up CT imaging stable) hx substance abuse, EEG neg seizure . -- malnutrition -- s/p PEG (replaced by GI 11/05 due to pt dislodging) . Ongoing TF. albumin 3.1 --Pain: Potential sources would include: History of degenerative disc disease ; has had prolonged bedbound status during > 1 month hospitalization, + stage III wounds to coccyx.started on ATC Oxycodone 10mg per tube q4h scheduled * Palliative care will continue to follow during hospital course as condition evolves, to assist patient/decision-maker with understanding of medical conditions, weighing benefits/burdens of treatment options, for clarification of goals of treatment. Additionally will assist with any symptoms of palliative concern Time Spent Total Floor Time (mins): 30 Attestation To help prompt me to consider important information that might be impacting today's encounter and assessment, information from prior notes written by myself or my colleagues may have been "brought forward" into today's note. My signature on this note, however, is an attestation that I personally performed the exam, history, and/or decision-making noted today, and, unless otherwise indicated, the interactions with patient, family, and staff as well as the review of records all occurred today. I also attest that the listed assessment and stated plan reflect my best clinical judgment today based on the combination of historical information, prior notes, and today's exam/ interactions. When time spent is documented, it refers only to time spent today by the signer, or if indicated, combined time spent today by collaborating physician/nurse practitioner. Sandy Liu Nov 13, 2016 12:36
[2016-11-13] MEDS: PANTOPRAZOLE SODIUM 40 MG VIAL IV PUSH SCH (13:09)
[2016-11-13] MEDS: ACETAMINOPHEN 325 MG TAB PO PRN (16:14)
[2016-11-14] VITALS (16 sets, daily range): BP systolic 103–120; BP diastolic 51–83; PULSE 88–118; RESP 17–25; TEMP 99.3–101; O2SAT 94–100
[2016-11-14] MEDS: OXACILLIN INJ 2 GM in SODIUM CHLORIDE 0.9% INJ 100 ML IV SCH ×7 (00:17→23:52)
[2016-11-14] MEDS: PROPOFOL 1000 MG/100 ML INJ 100 ML IV SCH ×5 (01:51→22:56)
[2016-11-14] MEDS: ACETAMINOPHEN 325 MG TAB PO PRN (01:51)
[2016-11-14] MEDS: oxyCODONE HCL ORAL CONC 20 MG/ML SYRINGE PO SCH ×6 (03:49→22:00)
[2016-11-14] MEDS: CHLORHEXIDINE GLUCONATE 2 % 1 PACK (2 CLOTHS) TOP SCH (03:49)
[2016-11-14 05:03] LABS: AUTOMATED NEUTROPHIL # 9.4 TH/MM3 (1.8-7.7); BASOPHIL % 0.2 % (0.0-2.0); EOSINOPHIL # 0.3 TH/MM3 (0-0.4); EOSINOPHIL % 2.8 % (0.0-4.0); HEMATOCRIT 21.8 % (39.0-51.0); HEMO FLAGS DIFF FINAL; LYMPH % 9.8 % (9.0-44.0); LYMPHOCYTE # 1.1 TH/MM3 (1.0-4.8); MEAN CELL VOLUME 87.3 FL (80.0-100.0); MEAN CORPUSCULAR HEMOGLOBIN 28.4 PG (27.0-34.0); MEAN CORPUSCULAR HGB CONC 32.5 % (32.0-36.0); MONO % 4.5 % (0.0-8.0); NEUT % 82.7 % (16.0-70.0); PLATELET COUNT 152 TH/MM3 (150-450); RED BLOOD COUNT 2.49 MIL/MM3 (4.50-5.90); RED CELL DISTRIBUTION WIDTH 15.9 % (11.6-17.2); WHITE BLOOD COUNT 11.3 TH/MM3 (4.0-11.0)
[2016-11-14] MEDS: fentaNYL DRIP 250 ML IV SCH ×3 (05:03→22:56)
[2016-11-14] MEDS: AMANTADINE HCL SOLN 100 MG/10 ML UDC PO SCH ×2 (06:26→12:36)
[2016-11-14] MEDS: chlordiazePOXIDE 25 MG CAP PO SCH ×2 (08:54→20:45)
[2016-11-14] MEDS: FLUCONAZOLE 100 MG TAB PO SCH (08:54)
[2016-11-14] MEDS: METOPROLOL TARTRATE 25 MG TAB PO SCH ×2 (08:55→22:00)
[2016-11-14] MEDS: LACTULOSE SYRUP 20 GM/30 ML CUP PEG SCH (08:55)
[2016-11-14] MEDS: CHLORHEXIDINE 0.12% (ORAL KIT) 15 ML CUP MT SCH ×2 (08:55→19:53)
[2016-11-14] MEDS: LEVOFLOXACIN 750 MG TAB PO SCH (10:32)
[2016-11-14] MEDS: BUMETANIDE INJ 1 MG/4 ML VIAL IV PUSH SCH ×2 (10:38→22:00)
--- NOTE | 2016-11-14 10:59 | HHI.HCPN ---
Reason for visit a. To assist with evaluation and management of symptoms including: dyspnea, agitation, pain, encephalopathy , malnutrition b. To assist medical decision maker(s) with: better understanding of current medical conditions; weighing benefits/burdens of medical treatment options; making medical treatment decisions. Subjective/Interval History 26-year-old patient was re-admitted/transferred back to [facility] in 11/03 from [facility], for ongoing management of endocarditis , aortic valve vegetation. He was transferred to [facility] last week for second opinion regarding and cardiac thoracic surgery for aortic valve replacement. He was evaluated there by their infectious disease, neurology, they deemed him not to be a surgical candidate and thus he was transferred back to [facility]. He has remained stable without changes to his clinical status. Remains intubated, encephalopathic.Palliative care was reconsulted to assist with support to the family, continue with clarification of goals of treatment Patient seen and examined in ICU. No family at bedside- call to mother RE follow up meeting today, brief update on phone. Plan for meeting w family at 1: 30pm w palliative, green pipefitter, family. D/w Conference Coordinator, RN. Still with some episodes of breaktrhough agitation, though responds to scheduled, PRN medications. ID cont to follow, fluconazole added yesterday, levaquin added today. BC from 11/12 w no growth. Afebrile. on IV fentanyl 225mcgs hr, diprivan 40 mcgs/kg/min, + librium, geodon, Amantadine. On scheduled oxycodone for grimacing/presumed pain---10mg per PEG Q 4 hr. To exam, pt sedated/appears comfortable, did not vigorously stimulate for exam. Eyes closed. Moving 4 extremities spont. + restraints BUE. . patient is known to palliative care service from prior admission during September, additional HPI as per palliative care consult 10/03/16: He initially presented via EMS 09/30/16 for altered mental status. He apparently been last seen normal by his landlord 2 days prior. Patient apparently presented to the ED 2 days prior for diagnosis of allergic reaction, at that time reporting low-grade fever and congestion. He at that time reported being seen 10 days prior by another physician and had been prescribed antibiotics for a fever. He then developed a red rash and peeling on his hands and feet, complains of generalized weakness and lightheadedness at that presentation. At that time he was prescribed prednisone and to follow-up with local provider. On day of presentation landlord found patient altered and notified EMS. Patient lethargic at presentation and unable to provide additional information. ED record notes family members were called, patient reported to have a rash on his hands and feet for the past 2 weeks and had been seen by a local physician. Family also reporting patient with a history of substance abuse, recently in rehabilitation, last rehabilitation a year ago. * ED course: Patient obtunded at arrival. Lactic acid 3.7, troponin 11.9, alkaline phosphatase 175 area total CK 372. BUN 54, creatinine 1.69, GFR 49. Glucose 116. Salicylate and acetaminophen levels normal. Urine drug screen positive for opiates, amphetamine (on ADDERALL FOR ADHD). Alcohol negative. He was intubated sedated. CXR with no acute process identified.Head CT= significant areas of infarction in the right frontal, temporal, and cerebellar regions as well as a small area of subarachnoid hemorrhage in the superior right parietal region. Patient has early 3 mm of midline shift as well as effacement on the right. * Echo: "hyperdynamic left ventricular function and what appears to be aortic valve vegetations and I measured to be approximally 0.9 x 8.8 cm. This is associated with what appears to be severe aortic regurgitation. There is no pericardial effusion. Right ventricular function is preserved." ID, neurosurgery consulted. Cultures pending. * Infectious disease: Initial cultures sputum :gram-positive cocci pairs and clusters, blood culture gram-positive cocci. CXR worsening. Patient continued on vancomycin, Rocephin, following cultures. * Neurosurgery: Patient with multiple acute septic CVAs, cerebral edema, small subarachnoid hemorrhage, midline shift, metabolic encephalopathy. Follow-up CT , repeat CT for any changes in neuro status. Continue 3% saline, keep sodium elevated ADDITIONAL OUT PT HX PER DOCUMENTS/ RXs PROVIDED BY FAMILY: * EKG, lower spine x-rays per Dr. Prather 07/09/16 * 09/07/16 RX ibuprofen TO replace meloxicam for joint pain, + Adderall 30 mg daily ([facility] pharmacy) * 09/13/16 RX omeprazole, clindamycin 150 mg 4 tablets twice a day, acyclovir 200 mg 1 by mouth 5 times a day [address] Herrera ([facility] pharmacy) * 09/14/16- RX prednisone Dr. Prather, doxycycline 100 mg 1 by mouth every 12 hours; family reports diagnosed with a "viral illness 09/17" ([facility] pharmacy) * 09/[address] [facility] [address] Bj Luis Tylenol 3 quantity 20, acyclovir 200 mg 1 by mouth 5 times a day 10 days * s/p tracheostomy, PEG tube week of 10/15/16 * During clinical course through September patient was some neurological improvement at some point weaning off sedation following commands, localizing, arousable though with ongoing episodes of agitation requiring various sedatives including Precedex, fentanyl, Diprivan. * Follow-up CT identified small brain hemorrhage; at that point patient was not a candidate for cardiac surgical intervention. CTS evaluated and noted patient would require at least 4 weeks on antibiotics, and at least 6 weeks out from brain hemorrhage before surgical intervention could be considered (follow-up CT brain stable) * Repeat echo again noted aortic vegetation, with possible perforation of aortic valve leaflets; [facility] again reconsulted to consider surgery patient continues to have episodes of pulmonary edema felt to be secondary to severe aortic valve insufficiency. Concern that without surgical intervention patient may not tolerate ventilator weaning due to cardiac status. During periods of sedation weaning patient is following commands. At one point off of mechanical vent tolerating T piece for couple of days at a time though required ventilation again due to pulmonary edema, hypoxic respiratory failure. CVS reevaluation determines not a good surgical candidate, he was evaluated by [facility], subsequently declined. [facility] excepted for evaluation and possible valve replacement. * Was transferred to [facility] 10/31/16. Family/friend interactions -------1330 Met w mother, father, aunt, and sister Anay via conference call, approx [address] Dominguez, Nora Cervantes SLOT MACHINE REPAIRER palliative social security specialist, and DEA Cassidy also present/participated in meeting. Discussion included: --review of conditions, hospital trajectory, limited tx options at this time-- multiple evaluations for valve replacement at other facilities-- no accepting facility due to pt very poor candidate for any surgical interventions based on clinical assessments/conditions. Even with continued supportive treatments, pt high risk for continued complications, very poor chance of survival and meaningful recovery. Review w/ family option to transition to comfort focus , removal of life support and comfort measures only. The would like to contact additional family out of the area so they may make travel arrangements to see Slmi. Mother, father appropriately tearful, struggling to accept that Slim is not improving despite his prolonged hospitalization, however they also do not wish to see him potentially in pain and without quality of life. Supportive listening provided. Some limited exploration of anticipatory guidance (would need more in depth conversations RE anticipatory guidance for withdrawal of life support) Tentative plans to meet again next Saturday11/19/16 to further review withdrawal of life support, possibly early next week. Family requests bag machine operator helper to baptize, assist w spiritual care, palliative SW to assist w coordinating. Advance Directives Living Will: Never completed Health Care Surrogate: Never completed Durable Power of Cash Management Clerk: Never completed Objective Vital Signs Date Time Temp Pulse Resp B/P Pulse Ox O2 Delivery O2 Flow Rate FiO2 11/14/16 10:00 106 11/14/16 08:00 100.1 108 21 113/56 99 11/14/16 08:00 109 11/14/16 08:00 40 11/14/16 07:31 99 40 11/14/16 07:00 99 Mechanical Ventilator 40 11/14/16 04:30 100 40 11/14/16 04:00 40 11/14/16 04:00 88 11/14/16 04:00 99.3 88 17 105/54 97 11/14/16 01:20 100 40 11/14/16 00:00 107 11/14/16 00:00 101.0 107 21 104/51 97 11/14/16 00:00 50 11/13/16 22:00 96 40 11/13/16 20:00 99.9 112 24 109/55 99 11/13/16 20:00 112 11/13/16 20:00 50 11/13/16 19:29 97 40 11/13/16 19:00 99 Mechanical Ventilator 40 11/13/16 17:36 95 50 11/13/16 17:29 15 11/13/16 16:00 101.0 121 24 107/55 99 11/13/16 16:00 50 11/13/16 16:00 121 11/13/16 12:04 98 60 11/13/16 12:00 50 11/13/16 12:00 109 11/13/16 12:00 99.5 109 19 113/56 99 Intake & Output 11/14/16 11/14/16 06:59 18:59 Intake Total 2509 ml Output Total 1475 ml 0 ml Balance 1034 ml 0 ml Intake IV Total 1215 ml Tube Feeding 1054 ml Other 240 ml Output Urine Total 1250 ml Stool Total 225 ml Tube Feeding Residual Discard 0 ml # Bowel Movements 1 Physical Exam CONSTITUTIONAL/GENERAL: This is an adequately nourished patient, sedated on mech vent TUBES/LINES/DRAINS: PIV LUE x2,Jerez catheter, PEG tube, rectal drain, SCDs SKIN: No jaundice, rashes, or lesions. Skin temperature warm, dry. NECK: Trachea, tracheostomy midline. Supple, nontender. CARDIOVASCULAR: Heart regular, no murmur. peripheral pulses palpable. Distal extremity edema. RESPIRATORY/CHEST: Symmetric, unlabored respirations via tracheostomy to mechanical vent. Some scattered rhonchi throughout. Breath sounds equal bilaterally. GASTROINTESTINAL: Abdomen soft, flat, no apparent tenderness though limited assessment, nondistended. No hepato-splenomegaly, or palpable masses. Bowel sounds present. TF infusing to PEG site asymptomatic NEUROLOGICAL: Sedated on mechanical vent. Appears comfortable, localizes to touch on extremities. Moves extremities spontaneously PSYCHIATRIC: No obvious anxiety/depression--limited assessment due to clinical condition, sedatives. . Diagnostic Tests Laboratory Laboratory Tests Test 11/12/16 11/12/16 11/14/16 03:51 13:00 04:30 White Blood Count 11.0 TH/MM3 11.3 TH/MM3 (4.0-11.0) (4.0-11.0) Red Blood Count 2.60 MIL/MM3 2.49 MIL/MM3 (4.50-5.90) (4.50-5.90) Hemoglobin 7.5 GM/DL 7.1 GM/DL (13.0-17.0) (13.0-17.0) Hematocrit 22.9 % 21.8 % (39.0-51.0) (39.0-51.0) Mean Corpuscular Volume 88.1 FL 87.3 FL (80.0-100.0) (80.0-100.0) Mean Corpuscular Hemoglobin 28.7 PG 28.4 PG (27.0-34.0) (27.0-34.0) Mean Corpuscular Hemoglobin 32.5 % 32.5 % Concent (32.0-36.0) (32.0-36.0) Red Cell Distribution Width 15.7 % 15.9 % (11.6-17.2) (11.6-17.2) Platelet Count 181 TH/MM3 152 TH/MM3 (150-450) (150-450) Mean Platelet Volume 8.8 FL 8.6 FL (7.0-11.0) (7.0-11.0) Neutrophils (%) (Auto) 82.4 % 82.7 % (16.0-70.0) (16.0-70.0) Lymphocytes (%) (Auto) 9.7 % 9.8 % (9.0-44.0) (9.0-44.0) Monocytes (%) (Auto) 4.8 % (0.0-8.0) 4.5 % (0.0-8.0) Eosinophils (%) (Auto) 2.7 % (0.0-4.0) 2.8 % (0.0-4.0) Basophils (%) (Auto) 0.4 % (0.0-2.0) 0.2 % (0.0-2.0) Neutrophils # (Auto) 9.1 TH/MM3 9.4 TH/MM3 (1.8-7.7) (1.8-7.7) Lymphocytes # (Auto) 1.1 TH/MM3 1.1 TH/MM3 (1.0-4.8) (1.0-4.8) Monocytes # (Auto) 0.5 TH/MM3 0.5 TH/MM3 (0-0.9) (0-0.9) Eosinophils # (Auto) 0.3 TH/MM3 0.3 TH/MM3 (0-0.4) (0-0.4) Basophils # (Auto) 0.0 TH/MM3 0.0 TH/MM3 (0-0.2) (0-0.2) CBC Comment DIFF FINAL DIFF FINAL Differential Comment Prealbumin 25 MG/DL (20-40) Urine Color YELLOW (YELLW/STRAW) Urine Turbidity CLOUDY (CLEAR) Urine pH 7.0 (5.0-8.5) Urine Specific [place] 1.014 (1.002-1.035) Urine Protein 30 mg/dL (NEG-TRACE) Urine Glucose (UA) NEG mg/dL (NEG) Urine Ketones NEG mg/dL (NEG) Urine Occult Blood MOD (NEG) Urine Nitrite NEG (NEG) Urine Bilirubin NEG (NEG) Urine Urobilinogen 2.0 MG/DL (LESS THAN 2.0) Urine Leukocyte Esterase TRACE (NEG) Urine RBC 68 /hpf (0-3) Urine WBC 26 /hpf (0-5) Urine Squamous Epithelial 2 /hpf (0-5) Cells Urine Bacteria RARE /hpf (NONE) Urine Hyaline Casts 4 /lpf (RARE) Urine Mucus FEW /lpf (OCC) Urine Yeast with Hyphae FEW (NONE) Urine Yeast (Budding) MANY (NONE) Microscopic Urinalysis Comment CATH-CULTURE IND Result Diagram: 11/14/16 0430 11/11/16 0515 Microbiology Microbiology Date/Time Procedure Status Source Growth 11/12/16 13:00 Gram Stain - Final Resulted Sputum Endotracheal 11/12/16 13:00 Sputum Culture - Preliminary Resulted Sputum Endotracheal HEAVY GROWTH NORMAL RESPIRATORY CONNOR... 11/12/16 13:00 Urine Culture - Final Complete Urine Catheterized Urine Cassandra Albicans 11/12/16 14:45 Aerobic Blood Culture - Preliminary Resulted Blood Peripheral NO GROWTH IN 1 DAY 11/12/16 14:45 Anaerobic Blood Culture - Preliminary Resulted Blood Peripheral NO GROWTH IN 1 DAY 11/12/16 14:50 Aerobic Blood Culture - Preliminary Resulted Blood Peripheral NO GROWTH IN 1 DAY 11/12/16 14:50 Anaerobic Blood Culture - Preliminary Resulted Blood Peripheral NO GROWTH IN 1 DAY Procedures 6/5tracheostomy, PEG tube . Assessment and Plan Disease Oriented Problem List: (1) Aortic valve endocarditis (2) CVA (cerebral vascular accident) Comment: multiple CVAs, Septic Intracerebral emboli (3) Cerebral septic emboli (4) Aortic valve insufficiency Comment: severe (5) CHF (congestive heart failure) Comment: secondary to valvulopathy . (6) Acute on chronic respiratory failure with hypoxia (7) Encephalopathy (8) Intracranial hemorrhage Comment: Hemorrhagic conversion of prior CVAs (9) Previous IVDU (10) Severe protein-calorie malnutrition Symptom Scale: (1) Dyspnea 0-10 Scale: Unable to quantify (2) Encephalopathy 0-10 Scale: Unable to quantify (3) Agitation 0-10 Scale: Unable to quantify (4) Pain 0-10 Scale: Unable to quantify (5) Malnutrition 0-10 Scale: Unable to quantify Comment: Albumin 2.7. Pertinent Non-Medical Issues Psychosocial:originally from [place], lived in [place] since . HS education. Was incarcerated and then in drug rehabilitation in [facility]. 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 Has 1 sister Elizabeth (Anay) ,lives in [place], mother lives in [place]. Father (parents ) lived in [place] with support from family there. Supported by local friends, coworkers, apartment landlord. Spiritual:believes in God, no particular affiliation. would want ongoing vessel welder support. Legal:Patient is not able to participate in decision-making due to clinical condition. He is not . Per [place] statutes his parents would be legal decision makers, mother is serving as primary supported by his sister and father. Mother has POA paperwork, however this does NOT include medical decision making. Ethical issues impacting care: Important Contacts mother Felicita Roberts [phone] sister Elizabeth Quinnmichelle [phone] father Pradeep Rios [phone] . Prognosis This unfortunate 26-year-old man initially presented to the ED in September with altered mental status, he has been found to have mixed septic/cardiogenic shock with multiple areas of septic emboli CVA secondary to aortic valve endocarditis. He then developed a small ICH. He has had prolonged ICU course, with episodes of agitation, pulmonary edema and hypoxic respiratory failure, 2/ 2 to severe aortic valve insufficiency. + Aortic valve leaflet perforations. CVS evaluated here for possible valve replacement, patient not felt to be good surgical candidate. Was declined by [facility]. Was transferred and evaluated by [facility] at [facility] last week, also declined due to not felt to be good surgical candidate, transferred back to [facility] 11/03/16. Remains in critical condition, medical treatments maximized. Patient with very poor chance of survival without a valve replacement, and is currently not a candidate for a valve due to poor clinical condition. Not felt likely to improve enough to obtain valve replacement. High risk for ongoing clinical complications and . . Code Status: No Code Plan * Legal decision maker: Patient is not able to participate in decision-making due to clinical condition. He is not . Per [place] statutes his parents would be legal decision makers, mother is serving as primary supported by his sister and father. Mother has POA paperwork however this does not include medical decision-making. * Goals: During prior palliative consultation and multiple interactions palliative has met w pt mother, father, sister at length. Patient sister appears to have a reasonable understanding of conditions, prognosis. Patient mother , father appear to have a very simple understanding of conditions and prognosis. At that time family's goals were aggressive, Patient's mother is hoping for a miracle and wants to continue whatever measures available to help patient recover. 11/13/16: goals remain aggressive. Approaching 2 week timeframe as initially discussed w family/green pipefitter, planned to revisit conditions/goals/options/ consider comfort transition at 2 weeks. Plan for family meeting with green pipefitter Dr Dominguez or Dr Coats tomorrow 11/14/16 between 1-3pm (actual time to be clarified w mother tomorrow am) to review conditions, prognosis, options/ plan going forward. Mother, father, sister (via phone) to participate. 11/14/16 : Family meeting with mother, father, sister, aunt, palliative care , green pipefitter: The would like to contact additional family out of the area so they may make travel arrangements to see Slim. Mother, father appropriately tearful, struggling to accept that Slim is not improving despite his prolonged hospitalization, however they also do not wish to see him potentially in pain and without quality of life. Supportive listening provided. Some limited exploration of anticipatory guidance (would need more in depth conversations RE anticipatory guidance for withdrawal of life support) Tentative plans to meet again next Saturday11/19/16 to further review withdrawal of life support, possibly early next week. For now continue with all available treatments. * CODE STATUS: NO CODE/ DNR * SYMPTOMS: --dyspnea- intubated for AMS. remains on [facility] vent; status post tracheostomy. has had difficulty weaning off of vent/staying off of vent due to agitation, pulmonary edema 2/2 severe aortic valve insufficiency -- agitation- hx substance abuse; hx ADD, on adderall. + Embolic CVA, +new hemorrhage / to the right temporal lobe (follow-up CT imaging stable) Has had periods of restlessness, agitation ongoing during prolonged hospital course. Has been on various sedatives including Precedex, Diprivan, fentanyl. Has at times when lightened and able to follow commands, moved all 4 extremities. Currently on Geodon 10mg IM Q 12 hr, fentanyl 240/mcgs hr, diprivan 40 mcgs/kg/ min-- restless today during exam. not following commands. -- encephalopathy- multifactorial-- +sepsis, embolic CVA, +new hemorrhage 10/16 to the right temporal lobe (follow-up CT imaging stable 11/07) hx substance abuse, EEG neg seizure . -- malnutrition -- s/p PEG (replaced by GI 11/05 due to pt dislodging) . Ongoing TF. albumin 2.8 --Pain: Potential sources would include: History of degenerative disc disease ; has had prolonged bedbound status during > 1 month hospitalization, + stage III wounds to coccyx.started on ATC Oxycodone 10mg per tube q4h scheduled * Palliative care will continue to follow during hospital course as condition evolves, to assist patient/decision-maker with understanding of medical conditions, weighing benefits/burdens of treatment options, for clarification of goals of treatment. Additionally will assist with any symptoms of palliative concern Time Spent Total Floor Time (mins): 50 >50% Counseling/Coord of Care: Yes (d/w RN, critical care ) Attestation To help prompt me to consider important information that might be impacting today's encounter and assessment, information from prior notes written by myself or my colleagues may have been "brought forward" into today's note. My signature on this note, however, is an attestation that I personally performed the exam, history, and/or decision-making noted today, and, unless otherwise indicated, the interactions with patient, family, and staff as well as the review of records all occurred today. I also attest that the listed assessment and stated plan reflect my best clinical judgment today based on the combination of historical information, prior notes, and today's exam/ interactions. When time spent is documented, it refers only to time spent today by the signer, or if indicated, combined time spent today by collaborating physician/nurse practitioner. Sandy Liu Nov 14, 2016 10:59
[2016-11-14] MEDS: ZIPRASIDONE MESYLATE 20 MG VIAL IM SCH ×2 (11:00→22:00)
--- NOTE | 2016-11-14 11:11 | HHI.CCPN ---
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 His course was complicated by persistent respiratory failure requiring tracheostomy, intracerebral abscess, and severe aortic insufficiency with at least 4 episodes of flash pulmonary edema and near fatal hypoxic respiratory failure. He was evaluated by 2 cardio thoracic surgeons at this institution and deemed not to be a surgical candidate. He was then transferred to [facility] for an outside opinion, where cardiac thoracic surgery at that facility along with infectious disease and neurology at that facility deemed him to be not a surgical candidate. He reports to [facility] in transfer back from [facility]. He remained stable without change and acute clinical status. He is still intubated and encephalopathic. Additional history is unobtainable from the patient. Subjective: 11/04: agitation persists. cr slightly better. no significant change. ID prefers to change back to oxacillin. another long family discussion today: family has found a facility in [place] they are interested in transferring him to for 3rd opinion. 11/05: Patient remains heavily sedated with propofol and fentanyl for agitation. Severe agitation causes him to go into flash pulmonary edema. On sedation lightening patient moves uncontrollably. Otherwise have been stable overnight. 11/06: CXR with continued pulmonary interstitial edema and venous congestion. RV , PA enlarged consistent with chronic overload. Tmax 99. We have produced a prerenal azotemia appropriately so and oxygen diffusion remains acceptable. This remains uncompensated heart failure from a mechanical problem with a poor prognosis. 11/07: Decreased heat rate and fever today. No improvement in neuro status. 11/08: Continued problems with severe agitation. 11/09: Will need to start librium. He is very tolerant to propofol and fentanyl and at risk to disconnect ventilator. Still requiring elevated PEEP - frothy edema fluid otherwise. 11/10: Prerenal azotemia developing, will reduce bumex by 50%. No change in neurological status. 11/11: Renal function acceptable; purposefully running a little dry. No change in neurological function. 11/12: No change in neuro status. 11/13: Afebrile. No change in neuro status. 11/14: Temp 100.4. No change in neuro status. Less agitated on amantadine and geodon. Taper off propofol. Consulting neuro surgeons from [facility] have reviewed head CTs. They think operative risk for AVR is excessive because of recent bleed in head. Objective Vital Signs Date Time Temp Pulse Resp B/P Pulse Ox O2 Delivery O2 Flow Rate FiO2 11/14/16 10:00 106 11/14/16 08:00 100.1 21 113/56 99 11/14/16 08:00 40 11/14/16 07:00 Mechanical Ventilator Intake and Output 11/13/16 11/13/16 11/14/16 08:00 16:00 00:00 Intake Total 988 ml 1273 ml 1312 ml Output Total 950 ml 550 ml 625 ml Balance 38 ml 723 ml 687 ml Result Diagram: 11/14/16 0430 11/11/16 0515 Other Results Microbiology Date/Time Procedure Status Source Growth 11/12/16 13:00 Urine Culture - Final Complete Urine Catheterized Urine Cassandra Albicans Objective Remarks GENERAL: Young male, lying in bed, encephalopathic, trach in place, on a ventilator HEENT: Normocephalic. Atraumatic. WING. Mucous membranes are moist NECK: Trachea is midline. No JVD. CHEST: Tracheostomy in place, site clean. Good crow air movement. Basilar crackles. CARDIOVASCULAR: RRR, no JVD. Sinus by telemetry. ABDOMEN: Soft, nontender, nondistended. No guarding. PEG tube in place. BACK: Sacral decubitus. MUSCULOSKELETAL: Pulses 2+. No peripheral edema. NEUROLOGICAL: Opens eyes intermittently spontaneously. Tracks intermittently with his eyes but does not focus or follow. Does not follow commands. Withdraws 4 limbs, moves all extremities spontaneously. Left upper extremity minimal strength. Less agitated again today; lighten propofol. A/P Assessment and Plan Assessment: This is a 26-year-old male with infective aortic valve endocarditis , intracerebral septic emboli with intracerebral abscess and hemorrhagic conversion of infarctions, severe CHF exacerbation secondary to valvulopathy, severe persistent encephalopathy, chronic respiratory failure. He re-presents from [facility] for ongoing management. Based on his echo, along with the input from outside hospital consultants, I agree with their assessment that he is likely not a surgical candidate at this time. At this point, without surgery, he would certainly , and with surgery, likely given his multiple medical comorbidities, he may . Given that he is young, I think it is reasonable to give the patient and additional 2 weeks to see if we can medically optimize him from a neurologic and cardiovascular standpoint. Likely this will be unsuccessful given that without surgical repair, the patient will not be able to stay out of heart failure. Patient is DNR now, but continue our aggressive medical management for an additional 2 weeks. If at that time he is not clinically improved, I think that we have a responsibility to the patient to pursue comfort measures at that time. Mother protests that agreement - states she is so agitated "she might kill somebody". Plan: Infective Aortic Valve Endocarditis -- Abx per ID, Continue IV Oxacillin -- Blood culture 2 from 11/04/16 negative to date -- daily cbc -- Culture for fevers. Severe CHF exacerbation secondary to valvulopathy Severe aortic valve insufficiency -- bumex 2mg iv q8hr -- repeat ISABEL 11/03: severe AI. preserved EF. left pleural effusion -- Pulmonary edema persists. Metabolic alkalosis -- diamox 500mg iv q8h completed --restart for alkalosis and K loss Severe Hypokalemia -- aggressive electrolyte replacement Severe Encephalopathy Septic Intracerebral emboli Multiple CVAs Hemorrhagic conversion of prior CVAs -- continue to hold anticoagulation -- frequent neuro checks Agitated Delirium -- propofol, fentanyl for goal RASS -2 -- add Geodon 10mg IM q8h prn Acute pain associated with decubitus ulcer -- Oxycodone 10mg per tube q4h scheduled Acute on chronic hypoxic respiratory failure -- diuresis as above -- continue PRVC -- CPAP/PS as tolerated -- Wean fio2 for spo2 > 90% Acute protein calorie malnutrition- severe -- continue TF Dispo: -- remain in the ICU. remains critically ill. the family is welcome to pursue inter-facility transfer if they choose. Addendum: Patient pulled out PEG. RN placed new Jerez. Overall impression: CXR clearing after very aggressive diuresis. No fever X 96 hrs. Evaluation ongoing for valve replacement. Severe agitation less after librium started but still requires high dose propofol and fentanyl for vent synchrony. Flash edema problem improved with increased PEEP. All blood cultures negative since 10/06/16. Amantadine to help quell agitation, taper down propofol. Robert Cartagena MD Nov 14, 2016 11:11
--- NOTE | 2016-11-14 11:39 | HHI.IDPN ---
Note Infectious Disease Note Patient is sedated. No distress. Still with fever. T max 101. On vent. 60% FIO2. BP stable. Loose stools via rectal bag. Discussed with RN. 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 Post tracheostomy and PEG. Allergies: Coded Allergies: Hydrocodone (Verified Allergy, Unknown, Nausea/Vomiting, 10/04/16) Mother called Dentist to verify Sulfa (Verified Allergy, Unknown, 09/30/16) Toradol (Verified Allergy, Unknown, 09/30/16) Past Medical History Substance abuse ADHD Degenerative disc disease ANTIBIOTICS: Oxacillin. Diflucan. OBJECTIVE: Vital Signs Date Time Temp Pulse Resp B/P Pulse Ox O2 Delivery O2 Flow Rate FiO2 11/14/16 10:00 106 11/14/16 08:00 100.1 108 21 113/56 99 11/14/16 08:00 109 11/14/16 08:00 40 11/14/16 07:31 99 40 11/14/16 07:00 99 Mechanical Ventilator 40 11/14/16 04:30 100 40 11/14/16 04:00 40 11/14/16 04:00 88 11/14/16 04:00 99.3 88 17 105/54 97 11/14/16 01:20 100 40 11/14/16 00:00 107 11/14/16 00:00 101.0 107 21 104/51 97 11/14/16 00:00 50 11/13/16 22:00 96 40 11/13/16 20:00 99.9 112 24 109/55 99 11/13/16 20:00 112 11/13/16 20:00 50 11/13/16 19:29 97 40 11/13/16 19:00 99 Mechanical Ventilator 40 11/13/16 17:36 95 50 11/13/16 17:29 15 11/13/16 16:00 101.0 121 24 107/55 99 11/13/16 16:00 50 11/13/16 16:00 121 11/13/16 12:04 98 60 11/13/16 12:00 50 11/13/16 12:00 109 11/13/16 12:00 99.5 109 19 113/56 99 11/13/16 11/13/16 11/14/16 15:00 23:00 07:00 Intake Total 1273 ml 1312 ml 1197 ml Output Total 550 ml 625 ml 850 ml Balance 723 ml 687 ml 347 ml Intake IV Total 686 ml 626 ml 589 ml Tube Feeding 487 ml 566 ml 488 ml Other 100 ml 120 ml 120 ml Output Urine Total 550 ml 625 ml 625 ml Stool Total 0 ml 225 ml # Bowel Movements 1 Laboratory Tests Test 11/14/16 04:30 White Blood Count 11.3 TH/MM3 Red Blood Count 2.49 MIL/MM3 Hemoglobin 7.1 GM/DL Hematocrit 21.8 % Mean Corpuscular Volume 87.3 FL Mean Corpuscular Hemoglobin 28.4 PG Mean Corpuscular Hemoglobin 32.5 % Concent Red Cell Distribution Width 15.9 % Platelet Count 152 TH/MM3 Mean Platelet Volume 8.6 FL Neutrophils (%) (Auto) 82.7 % Lymphocytes (%) (Auto) 9.8 % Monocytes (%) (Auto) 4.5 % Eosinophils (%) (Auto) 2.8 % Basophils (%) (Auto) 0.2 % Neutrophils # (Auto) 9.4 TH/MM3 Lymphocytes # (Auto) 1.1 TH/MM3 Monocytes # (Auto) 0.5 TH/MM3 Eosinophils # (Auto) 0.3 TH/MM3 Basophils # (Auto) 0.0 TH/MM3 CBC Comment DIFF FINAL Differential Comment Microbiology Date/Time Procedure Status Source Growth 11/12/16 13:00 Gram Stain - Final Resulted Sputum Endotracheal 11/12/16 13:00 Sputum Culture - Preliminary Resulted Sputum Endotracheal HEAVY GROWTH NORMAL RESPIRATORY CONNOR... 11/12/16 13:00 Urine Culture - Final Complete Urine Catheterized Urine Cassandra Albicans 11/12/16 14:45 Aerobic Blood Culture - Preliminary Resulted Blood Peripheral NO GROWTH IN 2 DAYS 11/12/16 14:45 Anaerobic Blood Culture - Preliminary Resulted Blood Peripheral NO GROWTH IN 2 DAYS 11/12/16 14:50 Aerobic Blood Culture - Preliminary Resulted Blood Peripheral NO GROWTH IN 2 DAYS 11/12/16 14:50 Anaerobic Blood Culture - Preliminary Resulted Blood Peripheral NO GROWTH IN 2 DAYS Microbiology Date/Time Procedure Status Source Growth 11/12/16 13:00 Gram Stain - Final Resulted Sputum Endotracheal 11/12/16 13:00 Sputum Culture Resulted Sputum Endotracheal Pending 11/12/16 13:00 Urine Culture - Preliminary Resulted Urine Catheterized Urine Cassandra Albicans 11/12/16 14:45 Aerobic Blood Culture - Preliminary Resulted Blood Peripheral NO GROWTH IN 1 DAY 11/12/16 14:45 Anaerobic Blood Culture - Preliminary Resulted Blood Peripheral NO GROWTH IN 1 DAY 11/12/16 14:50 Aerobic Blood Culture - Preliminary Resulted Blood Peripheral NO GROWTH IN 1 DAY 11/12/16 14:50 Anaerobic Blood Culture - Preliminary Resulted Blood Peripheral NO GROWTH IN 1 DAY IMAGING: Chest X-Ray 11/08/16 0400 Signed Impressions: Service Date/Time: October 04:24 - CONCLUSION: Persistent but slightly improved consolidation left lower lung. Diffuse hazy opacities in the central right lung. Cayden Haile MD Head CT 11/07/16 0000 Signed Impressions: Service Date/Time: October 04:12 - CONCLUSION: Stable size of the hemorrhages with surrounding edema right and left parietal regions. Slight decrease in midline shift towards the left. Cayden Haile MD Chest X-Ray 11/03/16 0000 Signed Impressions: Service Date/Time: Thursday, November 03, 2016 10:48 - CONCLUSION: Improving aeration of the lung preciado compared to the prior study. Omari Moya MD GENERAL: No acute distress. On the vent. HEENT: No icterus. No conjunctival erythema. NECK: Supple. No adenopathy. LUNGS: Bilateral rhonchi. Upper airway grunts heard. CARDIAC: Regular rate and rhythm. (+) 4/6 DALILA LSB. ABDOMEN: Soft, non tender, Non distended. EXTREMITIES: No CCE. No embolic phenomena. SKIN: No rash. Dry warm and moist. Assessment and Plan IMPRESSION MSSA AV endocarditis. Last positive blood culture 10/04/16. 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 Respiratory failure S/P trach Recent Enterobacter PNA - treated. Cassandra in UC 10/30 Treated. Now has candiduria. FEVER. ?new nosocomial infection. RECOMMENDATION Continue IV Oxacillin. Continue PO Fluconazole. Add Levaquin. Monitor cultures. Negative so far. Obtain CXR. Monitor Temps. Follow WBC. Nemesio Jackson MD Nov 14, 2016 11:39
--- NOTE | 2016-11-14 14:03 | RADRPT ---
EXAM DATE/TIME: 11/14/2016 12:41 [place] COMPARISON: CHEST SINGLE AP, November 08, 2016, 4:24. INDICATIONS : Evaluate for pneumoina. MEDICAL HISTORY : Seizures. Cardiovascular disease, hemorrhages SURGICAL HISTORY : Tracheostomy ENCOUNTER: Subsequent ACUITY: 2 weeks PAIN SCORE: Non-responsive. LOCATION: Bilateral chest FINDINGS: There appear to be increasing interstitial and airspace infiltrates in both lungs compared to the aliza or exam. Tracheostomy tube remains in place. No pneumothorax. No definite pleural effusions. The bony structures are stable. CONCLUSION: Increasing bilateral interstitial and airspace infiltrates. Omari Moya MD on November 14, 2016 at 14:01 Board Certified Radiologist. This report was verified electronically.
[2016-11-14] MEDS: PANTOPRAZOLE SODIUM 40 MG VIAL IV PUSH SCH (14:16)
[2016-11-15] VITALS (20 sets, daily range): BP systolic 104–132; BP diastolic 53–64; PULSE 83–132; RESP 16–25; TEMP 97.7–101.9; O2SAT 92–100
[2016-11-15] MEDS: PROPOFOL 1000 MG/100 ML INJ 100 ML IV SCH ×4 (03:16→20:14)
[2016-11-15] MEDS: OXACILLIN INJ 2 GM in SODIUM CHLORIDE 0.9% INJ 100 ML IV SCH ×6 (03:16→23:46)
[2016-11-15] MEDS: oxyCODONE HCL ORAL CONC 20 MG/ML SYRINGE PO SCH ×6 (03:16→23:23)
[2016-11-15] MEDS: CHLORHEXIDINE GLUCONATE 2 % 1 PACK (2 CLOTHS) TOP SCH (04:00)
[2016-11-15 05:44] LABS: ANION GAP 8 MEQ/L (5-15); AST (GOT) 38 U/L (15-37); BICARBONATE 25.7 MEQ/L (21.0-32.0); BLOOD UREA NITROGEN 30 MG/DL (7-18); CHLORIDE 106 MEQ/L (98-107); GLOMERULAR FILTRATION RATE 115 ML/MIN (>89); POTASSIUM 4.1 MEQ/L (3.5-5.1); SODIUM (NA) 140 MEQ/L (136-145)
[2016-11-15 05:49] LABS: ALKALINE PHOSPHATASE 79 U/L (45-117); ALT (GPT) 51 U/L (12-78); TOTAL BILIRUBIN ADULT 0.6 MG/DL (0.2-1.0)
[2016-11-15] MEDS: AMANTADINE HCL SOLN 100 MG/10 ML UDC PO SCH ×2 (06:45→12:11)
[2016-11-15] MEDS: fentaNYL DRIP 250 ML IV SCH ×2 (06:46→20:14)
[2016-11-15] MEDS: CHLORHEXIDINE 0.12% (ORAL KIT) 15 ML CUP MT SCH ×2 (08:00→20:00)
[2016-11-15] MEDS: METOPROLOL TARTRATE 25 MG TAB PO SCH ×2 (09:34→23:22)
[2016-11-15] MEDS: FLUCONAZOLE 100 MG TAB PO SCH (09:34)
[2016-11-15] MEDS: LACTULOSE SYRUP 20 GM/30 ML CUP PEG SCH (09:34)
[2016-11-15] MEDS: LEVOFLOXACIN 750 MG TAB PO SCH (09:34)
[2016-11-15] MEDS: chlordiazePOXIDE 25 MG CAP PO SCH ×2 (09:34→20:13)
[2016-11-15] MEDS: BUMETANIDE INJ 1 MG/4 ML VIAL IV PUSH SCH ×2 (10:55→23:22)
[2016-11-15] MEDS: ZIPRASIDONE MESYLATE 20 MG VIAL IM SCH ×2 (10:58→23:22)
--- NOTE | 2016-11-15 11:49 | HHI.HCPN ---
Received call from sister, Anay. She inquires about family meeting from yesterday. Planned follow-up meeting planned for early next week. Anay reports she is trying to get a flight into [facility] on Saturday night, tentative follow-up meeting planned for Saturday. Anay reports she will contact palliative care when travel arrangements are made. Per Anay's request, briefly and gently discussed general process for transition to comfort only care. Anticipatory guidance reviewed, more detailed information to come in upcoming family meeting early next week. Questions answered to the best of my ability. She is satisfied with information at this time, understands further discussion to follow at family meeting. Palliative care will continue to follow throughout hospitalization. Currently awaiting return call to determine family meeting for early next week. Madison Cervantes, PARAFFIN MACHINE OPERATOR Nov 15, 2016 11:49
--- NOTE | 2016-11-15 11:55 | HHI.CCPN ---
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 His course was complicated by persistent respiratory failure requiring tracheostomy, intracerebral abscess, and severe aortic insufficiency with at least 4 episodes of flash pulmonary edema and near fatal hypoxic respiratory failure. He was evaluated by 2 cardio thoracic surgeons at this institution and deemed not to be a surgical candidate. He was then transferred to [facility] for an outside opinion, where cardiac thoracic surgery at that facility along with infectious disease and neurology at that facility deemed him to be not a surgical candidate. He reports to [facility] in transfer back from [facility]. He remained stable without change and acute clinical status. He is still intubated and encephalopathic. Additional history is unobtainable from the patient. Subjective: 11/04: agitation persists. cr slightly better. no significant change. ID prefers to change back to oxacillin. another long family discussion today: family has found a facility in [place] they are interested in transferring him to for 3rd opinion. 11/05: Patient remains heavily sedated with propofol and fentanyl for agitation. Severe agitation causes him to go into flash pulmonary edema. On sedation lightening patient moves uncontrollably. Otherwise have been stable overnight. 11/06: CXR with continued pulmonary interstitial edema and venous congestion. RV , PA enlarged consistent with chronic overload. Tmax 99. We have produced a prerenal azotemia appropriately so and oxygen diffusion remains acceptable. This remains uncompensated heart failure from a mechanical problem with a poor prognosis. 11/07: Decreased heat rate and fever today. No improvement in neuro status. 11/08: Continued problems with severe agitation. 11/09: Will need to start librium. He is very tolerant to propofol and fentanyl and at risk to disconnect ventilator. Still requiring elevated PEEP - frothy edema fluid otherwise. 11/10: Prerenal azotemia developing, will reduce bumex by 50%. No change in neurological status. 11/11: Renal function acceptable; purposefully running a little dry. No change in neurological function. 11/12: No change in neuro status. 11/13: Afebrile. No change in neuro status. 11/14: Temp 100.4. No change in neuro status. Less agitated on amantadine and geodon. Taper off propofol. Consulting neuro surgeons from [facility] have reviewed head CTs. They think operative risk for AVR is excessive because of recent bleed in head. 11/15: CXR with worsening interstitial edema. Increase bumex. No neuro change. Objective Vital Signs Date Time Temp Pulse Resp B/P Pulse Ox O2 Delivery O2 Flow Rate FiO2 11/15/16 10:42 94 40 11/15/16 10:00 120 11/15/16 08:00 99.5 25 127/64 11/15/16 07:00 Mechanical Ventilator Intake and Output 11/14/16 11/14/16 11/15/16 08:00 16:00 00:00 Intake Total 1197 ml 1255 ml 1071 ml Output Total 850.0 ml 775 ml 775 ml Balance 347.0 ml 480 ml 296 ml Result Diagram: 11/14/16 0430 11/15/16 0350 Other Results Microbiology Date/Time Procedure Status Source Growth 11/12/16 13:00 Gram Stain - Final Complete Sputum Endotracheal 11/12/16 13:00 Sputum Culture - Final Complete Sputum Endotracheal HEAVY GROWTH NORMAL RESPIRATORY CONNOR 11/12/16 13:00 Urine Culture - Final Complete Urine Catheterized Urine Cassandra Albicans Objective Remarks GENERAL: Young male, lying in bed, encephalopathic, trach in place, on a ventilator HEENT: Normocephalic. Atraumatic. WING. Mucous membranes are moist NECK: Trachea is midline. No JVD. CHEST: Tracheostomy in place, site clean. Good crow air movement. Basilar crackles. CARDIOVASCULAR: RRR, no JVD. Sinus by telemetry. ABDOMEN: Soft, nontender, nondistended. No guarding. PEG tube in place. BACK: Sacral decubitus. MUSCULOSKELETAL: Pulses 2+. No peripheral edema. NEUROLOGICAL: Does not follow commands. Withdraws 4 limbs, moves all extremities spontaneously. Left upper extremity minimal strength. A/P Assessment and Plan Assessment: This is a 26-year-old male with infective aortic valve endocarditis , intracerebral septic emboli with intracerebral abscess and hemorrhagic conversion of infarctions, severe CHF exacerbation secondary to valvulopathy, severe persistent encephalopathy, chronic respiratory failure. He re-presents from [facility] for ongoing management. Based on his echo, along with the input from outside hospital consultants, I agree with their assessment that he is likely not a surgical candidate at this time. At this point, without surgery, he would certainly , and with surgery, likely given his multiple medical comorbidities, he may . Given that he is young, I think it is reasonable to give the patient and additional 2 weeks to see if we can medically optimize him from a neurologic and cardiovascular standpoint. Likely this will be unsuccessful given that without surgical repair, the patient will not be able to stay out of heart failure. Patient is DNR now, but continue our aggressive medical management for an additional 2 weeks. If at that time he is not clinically improved, I think that we have a responsibility to the patient to pursue comfort measures at that time. Mother protests that agreement - states she is so agitated "she might kill somebody". Plan: Infective Aortic Valve Endocarditis -- Abx per ID, Continue IV Oxacillin -- Blood culture 2 from 11/04/16 negative to date -- daily cbc -- Culture for fevers. Severe CHF exacerbation secondary to valvulopathy Severe aortic valve insufficiency -- bumex 2mg iv q8hr -- repeat ISABEL 11/03: severe AI. preserved EF. left pleural effusion -- Pulmonary edema persists. Metabolic alkalosis -- diamox 500mg iv q8h completed --restart for alkalosis and K loss Severe Hypokalemia -- aggressive electrolyte replacement Severe Encephalopathy Septic Intracerebral emboli Multiple CVAs Hemorrhagic conversion of prior CVAs -- continue to hold anticoagulation -- frequent neuro checks Agitated Delirium -- propofol, fentanyl for goal RASS -2 -- add Geodon 10mg IM q8h prn Acute pain associated with decubitus ulcer -- Oxycodone 10mg per tube q4h scheduled Acute on chronic hypoxic respiratory failure -- diuresis as above -- continue PRVC -- CPAP/PS as tolerated -- Wean fio2 for spo2 > 90% Acute protein calorie malnutrition- severe -- continue TF Dispo: -- remain in the ICU. remains critically ill. the family is welcome to pursue inter-facility transfer if they choose. Addendum: Patient pulled out PEG. RN placed new Jerez. Overall impression: CXR clearing after very aggressive diuresis. No fever X 96 hrs. Evaluation ongoing for valve replacement. Severe agitation less after librium started but still requires high dose propofol and fentanyl for vent synchrony. Flash edema problem improved with increased PEEP. All blood cultures negative since 10/06/16. Amantadine to help quell agitation, taper down propofol. Robert Cartagena MD Nov 15, 2016 11:55
[2016-11-15] MEDS: ACETAMINOPHEN 325 MG TAB PO PRN ×2 (12:11→23:23)
[2016-11-15] MEDS: PANTOPRAZOLE SODIUM 40 MG VIAL IV PUSH SCH (13:21)
--- NOTE | 2016-11-15 15:16 | HHI.IDPN ---
Note Infectious Disease Note Patient is sedated. No distress. Patient is still having temp spikes. On vent. BP stable. Loose stools via rectal bag. 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 Post tracheostomy and PEG. Allergies: Coded Allergies: Hydrocodone (Verified Allergy, Unknown, Nausea/Vomiting, 10/04/16) Mother called Dentist to verify Sulfa (Verified Allergy, Unknown, 09/30/16) Toradol (Verified Allergy, Unknown, 09/30/16) Past Medical History Substance abuse ADHD Degenerative disc disease ANTIBIOTICS: Oxacillin. Diflucan. Levaquin. OBJECTIVE: Vital Signs Date Time Temp Pulse Resp B/P Pulse Ox O2 Delivery O2 Flow Rate FiO2 11/15/16 14:00 104 11/15/16 13:02 96 40 11/15/16 12:00 115 11/15/16 12:00 116 11/15/16 12:00 40 11/15/16 12:00 101.9 116 24 128/58 95 11/15/16 10:42 94 40 11/15/16 10:00 120 11/15/16 08:00 40 11/15/16 08:00 99.5 115 25 127/64 95 11/15/16 08:00 115 11/15/16 07:25 94 40 11/15/16 07:00 100 Mechanical Ventilator 40 11/15/16 06:00 90 11/15/16 04:10 100 40 11/15/16 04:00 84 11/15/16 04:00 40 11/15/16 04:00 98.5 84 16 104/53 100 11/15/16 02:17 100 40 11/15/16 02:00 83 11/15/16 00:00 97.7 90 20 104/53 99 11/15/16 00:00 40 11/15/16 00:00 90 11/14/16 22:00 114 11/14/16 20:00 99.6 118 25 120/58 94 11/14/16 20:00 118 11/14/16 20:00 40 11/14/16 19:16 99 40 11/14/16 19:00 100 Mechanical Ventilator 40 11/14/16 18:00 115 11/14/16 16:00 99.6 101 22 108/83 97 11/14/16 16:00 101 11/14/16 16:00 40 11/14/16 15:28 97 40 11/14/16 11/14/16 11/15/16 15:00 23:00 07:00 Intake Total 1255 ml 1071 ml 1126 ml Output Total 775 ml 775 ml 375 ml Balance 480 ml 296 ml 751 ml Intake IV Total 580 ml 493 ml 673 ml Tube Feeding 555 ml 478 ml 353 ml Other 120 ml 100 ml 100 ml Output Urine Total 750 ml 675 ml 375 ml Stool Total 25 ml 100 ml Tube Feeding Residual Discard 0 ml 0 ml # Bowel Movements 1 1 Laboratory Tests Test 11/14/16 04:30 White Blood Count 11.3 TH/MM3 Red Blood Count 2.49 MIL/MM3 Hemoglobin 7.1 GM/DL Hematocrit 21.8 % Mean Corpuscular Volume 87.3 FL Mean Corpuscular Hemoglobin 28.4 PG Mean Corpuscular Hemoglobin 32.5 % Concent Red Cell Distribution Width 15.9 % Platelet Count 152 TH/MM3 Mean Platelet Volume 8.6 FL Neutrophils (%) (Auto) 82.7 % Lymphocytes (%) (Auto) 9.8 % Monocytes (%) (Auto) 4.5 % Eosinophils (%) (Auto) 2.8 % Basophils (%) (Auto) 0.2 % Neutrophils # (Auto) 9.4 TH/MM3 Lymphocytes # (Auto) 1.1 TH/MM3 Monocytes # (Auto) 0.5 TH/MM3 Eosinophils # (Auto) 0.3 TH/MM3 Basophils # (Auto) 0.0 TH/MM3 CBC Comment DIFF FINAL Differential Comment Laboratory Tests Test 11/15/16 03:50 Sodium Level 140 MEQ/L Potassium Level 4.1 MEQ/L Chloride Level 106 MEQ/L Carbon Dioxide Level 25.7 MEQ/L Anion Gap 8 MEQ/L Blood Urea Nitrogen 30 MG/DL Creatinine 0.81 MG/DL Estimat Glomerular Filtration 115 ML/MIN Rate Random Glucose 94 MG/DL Calcium Level 9.1 MG/DL Total Bilirubin 0.6 MG/DL Aspartate Amino Transf 38 U/L (AST/SGOT) Alanine Aminotransferase 51 U/L (ALT/SGPT) Alkaline Phosphatase 79 U/L Total Protein 6.8 GM/DL Albumin 2.2 GM/DL Microbiology Date/Time Procedure Status Source Growth 11/12/16 13:00 Gram Stain - Final Resulted Sputum Endotracheal 11/12/16 13:00 Sputum Culture - Preliminary Resulted Sputum Endotracheal HEAVY GROWTH NORMAL RESPIRATORY CONNOR... 11/12/16 13:00 Urine Culture - Final Complete Urine Catheterized Urine Cassandra Albicans 11/12/16 14:45 Aerobic Blood Culture - Preliminary Resulted Blood Peripheral NO GROWTH IN 2 DAYS 11/12/16 14:45 Anaerobic Blood Culture - Preliminary Resulted Blood Peripheral NO GROWTH IN 2 DAYS 11/12/16 14:50 Aerobic Blood Culture - Preliminary Resulted Blood Peripheral NO GROWTH IN 2 DAYS 11/12/16 14:50 Anaerobic Blood Culture - Preliminary Resulted Blood Peripheral NO GROWTH IN 2 DAYS Microbiology Date/Time Procedure Status Source Growth 11/12/16 13:00 Gram Stain - Final Resulted Sputum Endotracheal 11/12/16 13:00 Sputum Culture Resulted Sputum Endotracheal Pending 11/12/16 13:00 Urine Culture - Preliminary Resulted Urine Catheterized Urine Cassandra Albicans 11/12/16 14:45 Aerobic Blood Culture - Preliminary Resulted Blood Peripheral NO GROWTH IN 1 DAY 11/12/16 14:45 Anaerobic Blood Culture - Preliminary Resulted Blood Peripheral NO GROWTH IN 1 DAY 11/12/16 14:50 Aerobic Blood Culture - Preliminary Resulted Blood Peripheral NO GROWTH IN 1 DAY 11/12/16 14:50 Anaerobic Blood Culture - Preliminary Resulted Blood Peripheral NO GROWTH IN 1 DAY IMAGING: Chest X-Ray 11/14/16 0000 Signed Impressions: Service Date/Time: Monday, November 14, 2016 12:41 - CONCLUSION: Increasing bilateral interstitial and airspace infiltrates. Omari Moya MD Chest X-Ray 11/08/16 0400 Signed Impressions: Service Date/Time: October 04:24 - CONCLUSION: Persistent but slightly improved consolidation left lower lung. Diffuse hazy opacities in the central right lung. Cayden Haile MD Head CT 11/07/16 0000 Signed Impressions: Service Date/Time: October 04:12 - CONCLUSION: Stable size of the hemorrhages with surrounding edema right and left parietal regions. Slight decrease in midline shift towards the left. Cayden Haile MD Chest X-Ray 11/03/16 0000 Signed Impressions: Service Date/Time: Thursday, November 03, 2016 10:48 - CONCLUSION: Improving aeration of the lung preciado compared to the prior study. Omari Moya MD GENERAL: No acute distress. On the vent. HEENT: No icterus. No conjunctival erythema. NECK: Supple. No adenopathy. LUNGS: Bilateral rhonchi. CARDIAC: Regular rate and rhythm. (+) 4/6 DALILA LSB. ABDOMEN: Soft, non tender, Non distended. EXTREMITIES: No CCE. No embolic phenomena. SKIN: No rash. Dry warm and moist. Assessment and Plan IMPRESSION MSSA AV endocarditis. Last positive blood culture 10/04/16. - Severe AI, [place] septic embolic lesions, abscess. Respiratory failure S/P trach Recent Enterobacter PNA - treated. Cassandra in UC 10/30 Treated. Now has candiduria. FEVER. ?new nosocomial infection. Negative cultures. RECOMMENDATION Continue IV Oxacillin. Continue PO Fluconazole. Continue Levaquin. Add vancomycin. Monitor cultures. Monitor Temps. Follow WBC. Nemesio Jackson MD Nov 15, 2016 15:16
[2016-11-15] MEDS ORDERED: Vancomycin Consult Pharmacy 1 EA OTHER SCH (15:30)
[2016-11-15] MEDS ORDERED: VANCOMYCIN INJ 1,400 MG in SODIUM CHLORID 0.9% 500 ML INJ 500 ML IV ONE (17:15)
[2016-11-16] VITALS (14 sets, daily range): BP systolic 101–110; BP diastolic 49–56; PULSE 89–121; RESP 15–24; TEMP 98.3–100; O2SAT 92–99
[2016-11-16] MEDS: oxyCODONE HCL ORAL CONC 20 MG/ML SYRINGE PO SCH ×7 (03:22→22:54)
[2016-11-16] MEDS: OXACILLIN INJ 2 GM in SODIUM CHLORIDE 0.9% INJ 100 ML IV SCH ×6 (03:23→23:14)
[2016-11-16] MEDS: VANCOMYCIN 1,000 MG/NS 250 ML IV SCH ×6 (03:23→23:50)
[2016-11-16] MEDS: CHLORHEXIDINE GLUCONATE 2 % 1 PACK (2 CLOTHS) TOP SCH (03:24)
[2016-11-16] MEDS: fentaNYL DRIP 250 ML IV SCH ×3 (03:54→23:25)
[2016-11-16] MEDS: PROPOFOL 1000 MG/100 ML INJ 100 ML IV SCH ×4 (03:54→21:31)
[2016-11-16 05:47] LABS: BICARBONATE 27.3 MEQ/L (21.0-32.0); POTASSIUM 3.7 MEQ/L (3.5-5.1)
[2016-11-16] MEDS: AMANTADINE HCL SOLN 100 MG/10 ML UDC PO SCH ×2 (06:31→13:12)
[2016-11-16] MEDS: LACTULOSE SYRUP 20 GM/30 ML CUP PEG SCH ×2 (09:00→10:19)
[2016-11-16] MEDS: METOPROLOL TARTRATE 25 MG TAB PO SCH ×2 (10:00→22:00)
[2016-11-16] MEDS: chlordiazePOXIDE 25 MG CAP PO SCH ×2 (10:19→22:53)
[2016-11-16] MEDS: LEVOFLOXACIN 750 MG TAB PO SCH (10:19)
[2016-11-16] MEDS: FLUCONAZOLE 100 MG TAB PO SCH (10:19)
[2016-11-16] MEDS: CHLORHEXIDINE 0.12% (ORAL KIT) 15 ML CUP MT SCH ×2 (10:54→23:12)
[2016-11-16] MEDS: BUMETANIDE INJ 1 MG/4 ML VIAL IV PUSH SCH ×2 (10:57→23:13)
[2016-11-16] MEDS: ZIPRASIDONE MESYLATE 20 MG VIAL IM SCH (10:57)
--- NOTE | 2016-11-16 12:11 | HHI.HCPN ---
Reason for visit a. To assist with evaluation and management of symptoms including: dyspnea, agitation, pain, encephalopathy , malnutrition b. To assist medical decision maker(s) with: better understanding of current medical conditions; weighing benefits/burdens of medical treatment options; making medical treatment decisions. Subjective/Interval History 26-year-old patient was re-admitted/transferred back to [facility] in 11/03 from [facility], for ongoing management of endocarditis , aortic valve vegetation. He was transferred to [facility] last week for second opinion regarding and cardiac thoracic surgery for aortic valve replacement. He was evaluated there by their infectious disease, neurology, they deemed him not to be a surgical candidate and thus he was transferred back to [facility]. He has remained stable without changes to his clinical status. Remains intubated, encephalopathic.Palliative care was reconsulted to assist with support to the family, continue with clarification of goals of treatment Patient seen and examined in ICU. No family at bedside. D/w RN. ID cont to follow, on fluconazole for candidia in urine, levaquin , + vanco added yesterday. Tmax yesterday 101.9. BC from 11/12 w no growth x 4 days. continues to be sedated on IV fentanyl 250mcgs hr, diprivan 40 mcgs/kg/min, + librium, geodon, Amantadine. On scheduled oxycodone for grimacing/presumed pain- --10mg per PEG Q 4 hr. To exam, pt sedated/appears comfortable, did not vigorously stimulate for exam. Eyes closed. Moving 4 extremities spont. + restraints BUE. . patient is known to palliative care service from prior admission during September, additional HPI as per palliative care consult 10/03/16: He initially presented via EMS 09/30/16 for altered mental status. He apparently been last seen normal by his landlord 2 days prior. Patient apparently presented to the ED 2 days prior for diagnosis of allergic reaction, at that time reporting low-grade fever and congestion. He at that time reported being seen 10 days prior by another physician and had been prescribed antibiotics for a fever. He then developed a red rash and peeling on his hands and feet, complains of generalized weakness and lightheadedness at that presentation. At that time he was prescribed prednisone and to follow-up with local provider. On day of presentation landlord found patient altered and notified EMS. Patient lethargic at presentation and unable to provide additional information. ED record notes family members were called, patient reported to have a rash on his hands and feet for the past 2 weeks and had been seen by a local physician. Family also reporting patient with a history of substance abuse, recently in rehabilitation, last rehabilitation a year ago. * ED course: Patient obtunded at arrival. Lactic acid 3.7, troponin 11.9, alkaline phosphatase 175 area total CK 372. BUN 54, creatinine 1.69, GFR 49. Glucose 116. Salicylate and acetaminophen levels normal. Urine drug screen positive for opiates, amphetamine (on ADDERALL FOR ADHD). Alcohol negative. He was intubated sedated. CXR with no acute process identified.Head CT= significant areas of infarction in the right frontal, temporal, and cerebellar regions as well as a small area of subarachnoid hemorrhage in the superior right parietal region. Patient has early 3 mm of midline shift as well as effacement on the right. * Echo: "hyperdynamic left ventricular function and what appears to be aortic valve vegetations and I measured to be approximally 0.9 x 8.8 cm. This is associated with what appears to be severe aortic regurgitation. There is no pericardial effusion. Right ventricular function is preserved." ID, neurosurgery consulted. Cultures pending. * Infectious disease: Initial cultures sputum :gram-positive cocci pairs and clusters, blood culture gram-positive cocci. CXR worsening. Patient continued on vancomycin, Rocephin, following cultures. * Neurosurgery: Patient with multiple acute septic CVAs, cerebral edema, small subarachnoid hemorrhage, midline shift, metabolic encephalopathy. Follow-up CT , repeat CT for any changes in neuro status. Continue 3% saline, keep sodium elevated ADDITIONAL OUT PT HX PER DOCUMENTS/ RXs PROVIDED BY FAMILY: * EKG, lower spine x-rays per Dr. Prather 07/09/16 * 09/07/16 RX ibuprofen TO replace meloxicam for joint pain, + Adderall 30 mg daily ([place] [facility]) * 09/13/16 RX omeprazole, clindamycin 150 mg 4 tablets twice a day, acyclovir 200 mg 1 by mouth 5 times a day [address] Herrera ([facility] pharmacy) * 09/14/16- RX prednisone Dr. Prather, doxycycline 100 mg 1 by mouth every 12 hours; family reports diagnosed with a "viral illness 09/17" ([facility] pharmacy) * 09/[address] [facility] [address] Bj Luis Tylenol 3 quantity 20, acyclovir 200 mg 1 by mouth 5 times a day 10 days * s/p tracheostomy, PEG tube week of 10/15/16 * During clinical course through September patient was some neurological improvement at some point weaning off sedation following commands, localizing, arousable though with ongoing episodes of agitation requiring various sedatives including Precedex, fentanyl, Diprivan. * Follow-up CT identified small brain hemorrhage; at that point patient was not a candidate for cardiac surgical intervention. CTS evaluated and noted patient would require at least 4 weeks on antibiotics, and at least 6 weeks out from brain hemorrhage before surgical intervention could be considered (follow-up CT brain stable) * Repeat echo again noted aortic vegetation, with possible perforation of aortic valve leaflets; [facility] again reconsulted to consider surgery patient continues to have episodes of pulmonary edema felt to be secondary to severe aortic valve insufficiency. Concern that without surgical intervention patient may not tolerate ventilator weaning due to cardiac status. During periods of sedation weaning patient is following commands. At one point off of mechanical vent tolerating T piece for couple of days at a time though required ventilation again due to pulmonary edema, hypoxic respiratory failure. [facility]S reevaluation determines not a good surgical candidate, he was evaluated by [facility], subsequently declined. [facility] excepted for evaluation and possible valve replacement. * Was transferred to [facility] 10/31/16. Family/friend interactions Call to mother Felicita, provided update . Her sister still in town supporting her w decision making (pt aunt). They express concerns w possible withdrawal of life support next week, indicate they are not ready to "kill Slim" and that they need more medical information and answers regarding Slim's potential for recovery before they would withdraw life support. Gently explore Slim is declining and is declining from his conditions, that withdrawal of life support is not killing a patient. Attempt to answer their questions--they indicate they "have pages of questions":they want to know if he could be evaluated at another facility that specializes in infections of heart and possibly be treated with a "laser", or perhaps other facilities that specializes in cardiovascular interventions. I did further explore with them that patient had in fact been evaluated by 3 other facilities for treatment and due to severe illness/ condition was declined for any further operative procedures. Further explore that there is no technology or laser related treatment for specific infections, that Slim has been receiving ongoing maximized antibiotic therapy, and that again it is a combination of his multiple issues that are not allowing him to recover, other facilities do not have other antibiotic therapies etc. that [place] has not already currently or currently provided . Further explore that his prognosis overall is related to the hardware and that without valve he will continue to suffer from complications as he will remain in an ICU and dependent. They indicated they would like to obtain Slim's records and have another physician known to the family evaluate the possibility that Slim could be a candidate for possible procedures. Advise they can go through medical records to make appropriate legal requests. Questions answered to the best of my ability. They have additional concerns they would like to meet again with intensivists, and any other providers available on Saturday to revisit goals of treatment and discuss further giving Slim a few more weeks for any possible recovery/improvement. They remain in close communication with sister Anay who is planning to fly and on Saturday. They would like to speak more with providers before any further changes in treatment, do not wish to proceed with withdrawal of life support. Felicita will touch base with palliative sometime around 9 AM Saturday to confirm meeting time for Saturday. * I attempted to reach sister Anay, voicemail left. Advance Directives Living Will: Never completed Health Care Surrogate: Never completed Durable Power of Guitar Instructor: Never completed Objective Vital Signs Date Time Temp Pulse Resp B/P Pulse Ox O2 Delivery O2 Flow Rate FiO2 11/16/16 11:42 92 40 11/16/16 07:52 99 40 11/16/16 06:00 90 11/16/16 04:00 40 11/16/16 04:00 96 11/16/16 04:00 99.2 96 19 102/53 99 11/16/16 03:39 98 40 11/16/16 02:00 89 11/16/16 00:00 100.0 94 18 101/49 97 11/16/16 00:00 40 11/16/16 00:00 94 11/15/16 23:54 100 40 11/15/16 22:00 109 11/15/16 20:00 100.8 132 21 132/63 95 11/15/16 20:00 40 11/15/16 20:00 132 11/15/16 19:32 92 40 11/15/16 19:00 93 Mechanical Ventilator 40 11/15/16 18:00 110 11/15/16 16:15 100 40 11/15/16 16:00 99.1 110 25 119/57 95 11/15/16 16:00 121 11/15/16 16:00 40 11/15/16 14:00 104 11/15/16 13:02 96 40 11/15/16 12:00 115 11/15/16 12:00 116 11/15/16 12:00 40 11/15/16 12:00 101.9 116 24 128/58 95 Intake & Output 11/16/16 11/16/16 07:00 19:00 Intake Total 2893 ml Output Total 1175 ml Balance 1718 ml Intake IV Total 1889 ml Tube Feeding 1004 ml Output Urine Total 1175 ml Tube Feeding Residual Discard 0 ml # Bowel Movements 1 Physical Exam CONSTITUTIONAL/GENERAL: This is an adequately nourished patient, sedated on [facility] vent TUBES/LINES/DRAINS: PIV BUE x2,Jerez catheter, PEG tube, rectal drain, SCDs SKIN: No jaundice, rashes, or lesions. Skin temperature warm, dry. reported wound to sacrum- not visualized. NECK: Trachea, tracheostomy midline. Supple, nontender. CARDIOVASCULAR: Heart regular, no murmur. peripheral pulses palpable. Distal extremity edema. RESPIRATORY/CHEST: Symmetric, unlabored respirations via tracheostomy to mechanical vent. Clear. Breath sounds equal bilaterally. GASTROINTESTINAL: Abdomen soft, flat, no apparent tenderness though limited assessment, nondistended. No palpable masses. Bowel sounds present. TF infusing to PEG site asymptomatic NEUROLOGICAL: Sedated on mechanical vent. Eyes closed, did not vigorously stimulate. Appears comfortable, localizes to touch on extremities. Moves extremities spontaneously PSYCHIATRIC: No obvious anxiety/depression--limited assessment due to clinical condition, sedatives. . Diagnostic Tests Laboratory Laboratory Tests Test 11/14/16 11/15/16 11/16/16 04:30 03:50 04:58 White Blood Count 11.3 TH/MM3 (4.0-11.0) Red Blood Count 2.49 MIL/MM3 (4.50-5.90) Hemoglobin 7.1 GM/DL (13.0-17.0) Hematocrit 21.8 % (39.0-51.0) Mean Corpuscular Volume 87.3 FL (80.0-100.0) Mean Corpuscular Hemoglobin 28.4 PG (27.0-34.0) Mean Corpuscular Hemoglobin 32.5 % Concent (32.0-36.0) Red Cell Distribution Width 15.9 % (11.6-17.2) Platelet Count 152 TH/MM3 (150-450) Mean Platelet Volume 8.6 FL (7.0-11.0) Neutrophils (%) (Auto) 82.7 % (16.0-70.0) Lymphocytes (%) (Auto) 9.8 % (9.0-44.0) Monocytes (%) (Auto) 4.5 % (0.0-8.0) Eosinophils (%) (Auto) 2.8 % (0.0-4.0) Basophils (%) (Auto) 0.2 % (0.0-2.0) Neutrophils # (Auto) 9.4 TH/MM3 (1.8-7.7) Lymphocytes # (Auto) 1.1 TH/MM3 (1.0-4.8) Monocytes # (Auto) 0.5 TH/MM3 (0-0.9) Eosinophils # (Auto) 0.3 TH/MM3 (0-0.4) Basophils # (Auto) 0.0 TH/MM3 (0-0.2) CBC Comment DIFF FINAL Differential Comment Sodium Level 140 MEQ/L 142 MEQ/L (136-145) (136-145) Potassium Level 4.1 MEQ/L 3.7 MEQ/L (3.5-5.1) (3.5-5.1) Chloride Level 106 MEQ/L 107 MEQ/L (98-107) (98-107) Carbon Dioxide Level 25.7 MEQ/L 27.3 MEQ/L (21.0-32.0) (21.0-32.0) Anion Gap 8 MEQ/L (5-15) 8 MEQ/L (5-15) Blood Urea Nitrogen 30 MG/DL (7-18) 28 MG/DL (7-18) Creatinine 0.81 MG/DL 0.88 MG/DL (0.60-1.30) (0.60-1.30) Estimat Glomerular Filtration 115 ML/MIN 105 ML/MIN Rate (>89) (>89) Random Glucose 94 MG/DL 112 MG/DL (74-106) (74-106) Calcium Level 9.1 MG/DL 8.6 MG/DL (8.5-10.1) (8.5-10.1) Total Bilirubin 0.6 MG/DL (0.2-1.0) Aspartate Amino Transf 38 U/L (15-37) (AST/SGOT) Alanine Aminotransferase 51 U/L (12-78) (ALT/SGPT) Alkaline Phosphatase 79 U/L (45-117) Total Protein 6.8 GM/DL (6.4-8.2) Albumin 2.2 GM/DL (3.4-5.0) Result Diagram: 11/14/16 0430 11/16/16 0458 Procedures 6/5tracheostomy, PEG tube . Assessment and Plan Disease Oriented Problem List: (1) Aortic valve endocarditis (2) CVA (cerebral vascular accident) Comment: multiple CVAs, Septic Intracerebral emboli (3) Cerebral septic emboli (4) Aortic valve insufficiency Comment: severe (5) CHF (congestive heart failure) Comment: secondary to valvulopathy . (6) Acute on chronic respiratory failure with hypoxia (7) Encephalopathy (8) Intracranial hemorrhage Comment: Hemorrhagic conversion of prior CVAs (9) Previous IVDU (10) Severe protein-calorie malnutrition Symptom Scale: (1) Dyspnea 0-10 Scale: Unable to quantify (2) Encephalopathy 0-10 Scale: Unable to quantify (3) Agitation 0-10 Scale: Unable to quantify (4) Pain 0-10 Scale: Unable to quantify (5) Malnutrition 0-10 Scale: Unable to quantify Comment: Albumin 2.7. Pertinent Non-Medical Issues Psychosocial:originally from [place], lived in [place] since . HS education. Was incarcerated and then in drug rehabilitation in [facility]. 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 Has 1 sister Elizabeth (Anay) ,lives in [place], mother lives in [place]. Father (parents ) lived in [place] with support from family there. Supported by local friends, coworkers, apartment landlord. Spiritual:believes in God, no particular affiliation. would want ongoing food service coordinator support. Legal:Patient is not able to participate in decision-making due to clinical condition. He is not . Per [place] statutes his parents would be legal decision makers, mother is serving as primary supported by his sister and father. Mother has POA paperwork, however this does NOT include medical decision making. Ethical issues impacting care: Important Contacts mother Felicita Roberts [phone] sister Elizabeth Blanca [phone] father Pradeep Raslauramichelle [phone] . Prognosis This unfortunate 26-year-old man initially presented to the ED in September with altered mental status, he has been found to have mixed septic/cardiogenic shock with multiple areas of septic emboli CVA secondary to aortic valve endocarditis. He then developed a small ICH. He has had prolonged ICU course, with episodes of agitation, pulmonary edema and hypoxic respiratory failure, 2/ 2 to severe aortic valve insufficiency. + Aortic valve leaflet perforations. CVS evaluated here for possible valve replacement, patient not felt to be good surgical candidate. Was declined by [facility]. Was transferred and evaluated by [facility] at [facility] last week, also declined due to not felt to be good surgical candidate, transferred back to [facility] 11/03/16. Remains in critical condition, medical treatments maximized. Patient with very poor chance of survival without a valve replacement, and is currently not a candidate for a valve due to poor clinical condition. Not felt likely to improve enough to obtain valve replacement. High risk for ongoing clinical complications and . . Code Status: No Code Plan * Legal decision maker: Patient is not able to participate in decision-making due to clinical condition. He is not . Per [place] statutes his parents would be legal decision makers, mother is serving as primary supported by his sister and father. Mother has POA paperwork however this does not include medical decision-making. * Goals: During prior palliative consultation and multiple interactions palliative has met w pt mother, father, sister at length. Patient sister appears to have a reasonable understanding of conditions, prognosis. Patient mother , father appear to have a very simple understanding of conditions and prognosis. At that time family's goals were aggressive, Patient's mother is hoping for a miracle and wants to continue whatever measures available to help patient recover. 11/13/16: goals remain aggressive. Approaching 2 week timeframe as initially discussed w family/mutual fund accountant, planned to revisit conditions/goals/options/ consider comfort transition at 2 weeks. Plan for family meeting with mutual fund accountant Dr Dominguez or Dr Coats tomorrow 11/14/16 between 1-3pm (actual time to be clarified w mother tomorrow am) to review conditions, prognosis, options/ plan going forward. Mother, father, sister (via phone) to participate. 11/14/16 : Family meeting with mother, father, sister, aunt, palliative care , mutual fund accountant: The would like to contact additional family out of the area so they may make travel arrangements to see Slim. Mother, father appropriately tearful, struggling to accept that Slim is not improving despite his prolonged hospitalization, however they also do not wish to see him potentially in pain and without quality of life. Supportive listening provided. Some limited exploration of anticipatory guidance (would need more in depth conversations RE anticipatory guidance for withdrawal of life support) Tentative plans to meet again next Saturday11/19/16 to further review withdrawal of life support, possibly early next week. For now continue with all available treatments. 11/16/16: Met w mother, aunt today via phone. Family has additional concerns they would like to meet again with intensivists, and any other providers available on Saturday to revisit goals of treatment and discuss further giving Slim a few more weeks for any possible recovery/improvement. They remain in close communication with sister Anay who is planning to fly and on Saturday. They would like to speak more with providers before any further changes in treatment, do not wish to proceed with withdrawal of life support at this time. Felicita will touch base with palliative sometime around 9 AM Saturday to confirm meeting time for Saturday.--->>> meeting planned for around 944 * CODE STATUS: NO CODE/ DNR * SYMPTOMS: --dyspnea- intubated for AMS. remains on [facility] vent; status post tracheostomy. has had difficulty weaning off of vent/staying off of vent due to agitation, pulmonary edema 2/2 severe aortic valve insufficiency -- agitation- hx substance abuse; hx ADD, on adderall. + Embolic CVA, +new hemorrhage 6/6 to the right temporal lobe (follow-up CT imaging stable) Has had periods of restlessness, agitation ongoing during prolonged hospital course. Has been on various sedatives including Precedex, Diprivan, fentanyl. Has at times when lightened and able to follow commands, moved all 4 extremities-- though he is not been able to be lightened recently, has not demonstrated following commands recently. Currently on Geodon 10mg IM Q 12 hr, fentanyl 250/ mcgs hr, diprivan 40 mcgs/kg/min--calm today during exam. -- encephalopathy- multifactorial-- +sepsis, embolic CVA, +new hemorrhage / 6 to the right temporal lobe (follow-up CT imaging stable 11/07) hx substance abuse, EEG neg seizure . -- malnutrition -- s/p PEG (replaced by GI 11/05 due to pt dislodging) . Ongoing TF. albumin 2.8 --Pain: Potential sources would include: History of degenerative disc disease ; has had prolonged bedbound status during > 1 month hospitalization, + stage III wounds to coccyx.started on ATC Oxycodone 10mg per tube q4h scheduled * Palliative care will continue to follow during hospital course as condition evolves, to assist patient/decision-maker with understanding of medical conditions, weighing benefits/burdens of treatment options, for clarification of goals of treatment. Additionally will assist with any symptoms of palliative concern Attestation To help prompt me to consider important information that might be impacting today's encounter and assessment, information from prior notes written by myself or my colleagues may have been "brought forward" into today's note. My signature on this note, however, is an attestation that I personally performed the exam, history, and/or decision-making noted today, and, unless otherwise indicated, the interactions with patient, family, and staff as well as the review of records all occurred today. I also attest that the listed assessment and stated plan reflect my best clinical judgment today based on the combination of historical information, prior notes, and today's exam/ interactions. When time spent is documented, it refers only to time spent today by the signer, or if indicated, combined time spent today by collaborating physician/nurse practitioner. Sandy Liu Nov 16, 2016 12:11
--- NOTE | 2016-11-16 12:20 | HHI.IDPN ---
Note Infectious Disease Note Patient is sedated. No distress. Looks comfortable. Temp lower. On vent. 40% FIO2. BP stable. 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 Post tracheostomy and PEG. Allergies: Coded Allergies: Hydrocodone (Verified Allergy, Unknown, Nausea/Vomiting, 10/04/16) Mother called Dentist to verify Sulfa (Verified Allergy, Unknown, 09/30/16) Toradol (Verified Allergy, Unknown, 09/30/16) Past Medical History Substance abuse ADHD Degenerative disc disease ANTIBIOTICS: Oxacillin. Diflucan. Levaquin. OBJECTIVE: Vital Signs Date Time Temp Pulse Resp B/P Pulse Ox O2 Delivery O2 Flow Rate FiO2 11/16/16 11:42 92 40 11/16/16 07:52 99 40 11/16/16 07:00 98 Mechanical Ventilator 40 11/16/16 06:00 90 11/16/16 04:00 40 11/16/16 04:00 96 11/16/16 04:00 99.2 96 19 102/53 99 11/16/16 03:39 98 40 11/16/16 02:00 89 11/16/16 00:00 100.0 94 18 101/49 97 11/16/16 00:00 40 11/16/16 00:00 94 11/15/16 23:54 100 40 11/15/16 22:00 109 11/15/16 20:00 100.8 132 21 132/63 95 11/15/16 20:00 40 11/15/16 20:00 132 11/15/16 19:32 92 40 11/15/16 19:00 93 Mechanical Ventilator 40 11/15/16 18:00 110 11/15/16 16:15 100 40 11/15/16 16:00 99.1 110 25 119/57 95 11/15/16 16:00 121 11/15/16 16:00 40 11/15/16 14:00 104 11/15/16 13:02 96 40 11/15/16 11/15/16 11/16/16 15:00 23:00 07:00 Intake Total 1127 ml 1547 ml 1346 ml Output Total 1050 ml 525 ml 650 ml Balance 77 ml 1022 ml 696 ml Intake IV Total 513 ml 1078 ml 811 ml Tube Feeding 614 ml 469 ml 535 ml Output Urine Total 1000 ml 525 ml 650 ml Stool Total 50 ml Tube Feeding Residual Discard 0 ml 0 ml # Bowel Movements 1 Laboratory Tests Test 11/15/16 11/16/16 03:50 04:58 Sodium Level 140 MEQ/L 142 MEQ/L Potassium Level 4.1 MEQ/L 3.7 MEQ/L Chloride Level 106 MEQ/L 107 MEQ/L Carbon Dioxide Level 25.7 MEQ/L 27.3 MEQ/L Anion Gap 8 MEQ/L 8 MEQ/L Blood Urea Nitrogen 30 MG/DL 28 MG/DL Creatinine 0.81 MG/DL 0.88 MG/DL Estimat Glomerular Filtration 115 ML/MIN 105 ML/MIN Rate Random Glucose 94 MG/DL 112 MG/DL Calcium Level 9.1 MG/DL 8.6 MG/DL Total Bilirubin 0.6 MG/DL Aspartate Amino Transf 38 U/L (AST/SGOT) Alanine Aminotransferase 51 U/L (ALT/SGPT) Alkaline Phosphatase 79 U/L Total Protein 6.8 GM/DL Albumin 2.2 GM/DL Chest X-Ray 11/14/16 0000 Signed Impressions: Service Date/Time: Monday, November 14, 2016 12:41 - CONCLUSION: Increasing bilateral interstitial and airspace infiltrates. Omari Moya MD Chest X-Ray 11/08/16 0400 Signed Impressions: Service Date/Time: October 04:24 - CONCLUSION: Persistent but slightly improved consolidation left lower lung. Diffuse hazy opacities in the central right lung. Cayden Haile MD Head CT 11/07/16 0000 Signed Impressions: Service Date/Time: October 04:12 - CONCLUSION: Stable size of the hemorrhages with surrounding edema right and left parietal regions. Slight decrease in midline shift towards the left. Cayden Haile MD Chest X-Ray 11/03/16 0000 Signed Impressions: Service Date/Time: Thursday, November 03, 2016 10:48 - CONCLUSION: Improving aeration of the lung preciado compared to the prior study. Omari Moya MD PHYSICAL EXAM. GENERAL: No acute distress. On the vent. HEENT: No icterus. No conjunctival erythema. NECK: Supple. No adenopathy. LUNGS: Bilateral rhonchi persist. CARDIAC: Regular rate and rhythm. (+) 4/6 DALILA LSB. ABDOMEN: Soft, Non distended. EXTREMITIES: No CCE. No embolic phenomena seen. SKIN: No rash. Dry warm and moist. Assessment and Plan IMPRESSION MSSA AV endocarditis. Last positive blood culture 10/04/16. - Severe AI, [employer] septic embolic lesions, abscess. Respiratory failure S/P trach Recent Enterobacter PNA - treated. Cassandra in UC 10/30 Treated. Now has candiduria. FEVER. ?new nosocomial infection. Negative cultures. Lung infiltrates. ? CHF vs infection. RECOMMENDATION Continue IV Oxacillin. Continue PO Fluconazole. Continue Levaquin. Continue Vancomycin. Monitor Temps. Follow WBC. Observe for nosocomial infection. Nemesio Jackson MD Nov 16, 2016 12:20
--- NOTE | 2016-11-16 12:55 | RADRPT ---
EXAM DATE/TIME: 11/16/2016 12:39 [facility] COMPARISON: CHEST SINGLE AP, November 14, 2016, 12:41. INDICATIONS : Pneumonia. MEDICAL HISTORY : Cardiovascular disease. IV Drug use SURGICAL HISTORY : None. ENCOUNTER: Subsequent ACUITY: 1 month PAIN SCORE: Non-responsive. LOCATION: Bilateral chest FINDINGS: The tracheostomy tube remains in place. There is no evidence of pneumothorax. There continues to be p rominent bilateral diffuse interstitial and airspace pulmonary infiltrates, right greater than left. There appears to be an overall worsening of the infiltrates in the right lung compared to the left. T here is some mild improvement in the left perihilar area compared to the prior study. The heart size is stable. The bony structures are stable. CONCLUSION: 1. There continues to be bilateral interstitial and air space pulmonary infiltrates in the lungs. The re appears to be an overall increase in the pulmonary nfiltrates in the right lung compared to the pr ior exam. 2. There's been a mild improvement in the left perihilar infiltrates compared to the prior study. Omari Moya MD on November 16, 2016 at 12:52 Board Certified Radiologist. This report was verified electronically.
[2016-11-16] MEDS: PANTOPRAZOLE SODIUM 40 MG VIAL IV PUSH SCH (13:02)
--- NOTE | 2016-11-16 13:47 | HHI.CCPN ---
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 His course was complicated by persistent respiratory failure requiring tracheostomy, intracerebral abscess, and severe aortic insufficiency with at least 4 episodes of flash pulmonary edema and near fatal hypoxic respiratory failure. He was evaluated by 2 cardio thoracic surgeons at this institution and deemed not to be a surgical candidate. He was then transferred to [facility] for an outside opinion, where cardiac thoracic surgery at that facility along with infectious disease and neurology at that facility deemed him to be not a surgical candidate. He reports to [facility] in transfer back from [facility]. He remained stable without change and acute clinical status. He is still intubated and encephalopathic. Additional history is unobtainable from the patient. 11/04: agitation persists. cr slightly better. no significant change. ID prefers to change back to oxacillin. another long family discussion today: family has found a facility in [place] they are interested in transferring him to for 3rd opinion. 11/05: Patient remains heavily sedated with propofol and fentanyl for agitation. Severe agitation causes him to go into flash pulmonary edema. On sedation lightening patient moves uncontrollably. Otherwise have been stable overnight. 11/06: CXR with continued pulmonary interstitial edema and venous congestion. RV , PA enlarged consistent with chronic overload. Tmax 99. We have produced a prerenal azotemia appropriately so and oxygen diffusion remains acceptable. This remains uncompensated heart failure from a mechanical problem with a poor prognosis. 11/07: Decreased heat rate and fever today. No improvement in neuro status. 11/08: Continued problems with severe agitation. 11/09: Will need to start librium. He is very tolerant to propofol and fentanyl and at risk to disconnect ventilator. Still requiring elevated PEEP - frothy edema fluid otherwise. 11/10: Prerenal azotemia developing, will reduce bumex by 50%. No change in neurological status. 11/11: Renal function acceptable; purposefully running a little dry. No change in neurological function. 11/12: No change in neuro status. 11/13: Afebrile. No change in neuro status. 11/14: Temp 100.4. No change in neuro status. Less agitated on amantadine and geodon. Taper off propofol. Consulting neuro surgeons from [facility] have reviewed head CTs. They think operative risk for AVR is excessive because of recent bleed in head. 11/15: CXR with worsening interstitial edema. Increase bumex. No neuro change. Subjective: 11/16: Afebrile Overnight. Currently 99. Remains on sedation with propofol and fentanyl drips. PEEP at 10. Objective Vital Signs Date Time Temp Pulse Resp B/P Pulse Ox O2 Delivery O2 Flow Rate FiO2 11/16/16 11:42 92 40 11/16/16 07:00 Mechanical Ventilator 11/16/16 06:00 90 11/16/16 04:00 99.2 19 102/53 Intake and Output 11/15/16 11/15/16 11/16/16 08:00 16:00 00:00 Intake Total 1126 ml 1127 ml 1547 ml Output Total 375.0 ml 1050 ml 525 ml Balance 751.0 ml 77 ml 1022 ml Result Diagram: 11/14/16 0430 11/16/16 0458 Other Results Microbiology Date/Time Procedure Status Source Growth 11/12/16 14:50 Aerobic Blood Culture - Preliminary Resulted Blood Peripheral NO GROWTH IN 4 DAYS 11/12/16 14:50 Anaerobic Blood Culture - Preliminary Resulted Blood Peripheral NO GROWTH IN 4 DAYS 11/12/16 13:00 Urine Culture - Final Complete Urine Catheterized Urine Cassandra Albicans 11/12/16 13:00 Gram Stain - Final Complete Sputum Endotracheal 11/12/16 13:00 Sputum Culture - Final Complete Sputum Endotracheal HEAVY GROWTH NORMAL RESPIRATORY CONNOR Objective Remarks GENERAL: Young male, lying in bed, encephalopathic, trach in place, on a ventilator HEENT: Normocephalic. Atraumatic. WING. Mucous membranes are moist NECK: Trachea is midline. No JVD. CHEST: Tracheostomy in place, site clean. Good crow air movement. Basilar crackles. CARDIOVASCULAR: RRR, no JVD. ABDOMEN: Soft, nontender, nondistended. No guarding. PEG tube in place. BACK: Sacral decubitus gauge to. MUSCULOSKELETAL: Pulses 2+. No peripheral edema. NEUROLOGICAL: Does not follow commands. Withdraws 4 limbs, moves all extremities spontaneously. Left upper extremity minimal strength. A/P Assessment and Plan Assessment: This is a 26-year-old male with infective aortic valve endocarditis , intracerebral septic emboli with intracerebral abscess and hemorrhagic conversion of infarctions, severe CHF exacerbation secondary to valvulopathy, severe persistent encephalopathy, chronic respiratory failure. He re-presents from [facility] for ongoing management. Based on his echo, along with the input from outside hospital consultants, I agree with their assessment that he is likely not a surgical candidate at this time. At this point, without surgery, he would certainly , and with surgery, likely given his multiple medical comorbidities, he may . Given that he is young, I think it is reasonable to give the patient and additional 2 weeks to see if we can medically optimize him from a neurologic and cardiovascular standpoint. Likely this will be unsuccessful given that without surgical repair, the patient will not be able to stay out of heart failure. Patient is DNR now, but continue our aggressive medical management for an additional 2 weeks. If at that time he is not clinically improved, I think that we have a responsibility to the patient to pursue comfort measures at that time. Mother protests that agreement - states she is so agitated "she might kill somebody". Neuro/Psych: Bilateral parietal embolic CVA/hemorrhagic with surrounding vasogenic edema with 3 mm leftward shift Last CT brain 11/07 revealed stable embolic events as above Currently propofol 45 mcg/kg Minutes/fentanyl drip at 250 g for sedation/ analgesia while intubatedVentilator synchrony Goal RASS -2 Daily sedation vacation On amantadine 200 mg by tube at 7 AM and noon Librium 50 mg tube twice a day for agitation CV: Severe CHF exacerbation secondary to valvulopathy Severe aortic valve insufficiency Hypertension -- repeat ISABEL 11/03: severe AI. preserved EF. left pleural effusion Currently metoprolol 25 mg by mouth twice a day for hypertension Bumex decreased to 1 mg IV every 12 hours Resp: Vent dependent respiratory failure status post tracheostomy Pulmonary edema Bilateral infiltrates right greater than left PRVC 15/500/1/10/40 Ventilator bundle Duo nebs every 6 hours with albuterol every 2 hours. Dyspnea Chest x-ray today revealed worsening right-sided versus left-sided pulmonary infiltrate/effusions. GI: Mild protein calorie malnutrition Currently on Jevity 1.5 at 70 cc an hour. Protonix for GI prophylaxis Kristi-Colace for bowel regimen : Jerez catheter if indicated Endo: Sliding-scale insulin if indicated to maintain euglycemia Renal: Monitor urine output Accurate I's and O's Heme: Leukocytosis Normocytic anemia Monitor CBC daily. Follow trends ID: Infective Aortic Valve Endocarditis Candiduria -- Abx per ID, Continue IV Oxacillin, Levaquin, vancomycin and Diflucan Pertinent cultures 11/12 - urine - candiduria 11/12 - blood cultures 2 - no growth Blood culture 2 from 11/04/16 Last positive blood cultures 10/06/16 -- daily cbc -- Culture for fevers. FEN: Replace electrolytes as clinically indicated MSK: Sacral decubitus ulcer stage II Wound care evaluate and treat Access - Utilize peripheral IV. Central line if indicated Prophylaxis - GI -Protonix - DVT - SCD/pharmacological prophylaxis contraindicated with aortic valve vegetation with bilateral parietal hemorrhagic embolic strokes with surrounding edema Level II Filiberto Pacheco MD Nov 16, 2016 13:47
--- NOTE | 2016-11-16 16:53 | PD.WCN.NOT ---
Wound Consult Description: Patient seen on [address] [place] [address] for follow up of pressure injury to sacrum noted with previous admission. Patient assessed with the assistance of Florecita MARTE and scenario writer. Patient turned to L side with the assistance Florecita MARTE and scenario writer Peeled back bordered gauze in place that was changed last night to reveal stage 4 pressure injury to sacrum . Wound bed presents with ~60% facia, ~ 30% muscle and ~10% yellow tissue. Wound noted with minimal sero-sanguinous drainage to dressing that is without odor. Wound measurements are as follows 3.5cm x 0.9cm x 1.4cm.Wound is noted without tunneling or undermining. Periwound is unremarkable. Replaced maxorb II ( calcium alginate) dressing lightly packed in wound bed and reapplied bordered gauze dressing back in place.Patient also has rectal bag in place just below wound. Dressing cannot be removed without disturbing rectal bag. Communicated with: DEA Bernabe [facility] Recommendation: Place continue to change dressing as ordered. Please Vocera wound care nurse for wound deterioration. Natali Smith [facility] Nov 16, 2016 16:53
[2016-11-16 18:34] LABS: AUTOMATED NEUTROPHIL # 7.5 TH/MM3 (1.8-7.7); BASOPHIL % 0.4 % (0.0-2.0); EOSINOPHIL # 0.5 TH/MM3 (0-0.4); LYMPH % 14.3 % (9.0-44.0); LYMPHOCYTE # 1.4 TH/MM3 (1.0-4.8); MEAN CELL VOLUME 87.4 FL (80.0-100.0); MEAN CORPUSCULAR HEMOGLOBIN 28.3 PG (27.0-34.0); MEAN CORPUSCULAR HGB CONC 32.4 % (32.0-36.0); MONO % 4.3 % (0.0-8.0); PLATELET COUNT 173 TH/MM3 (150-450); RED BLOOD COUNT 2.26 MIL/MM3 (4.50-5.90); RED CELL DISTRIBUTION WIDTH 15.9 % (11.6-17.2); WHITE BLOOD COUNT 9.9 TH/MM3 (4.0-11.0)
[2016-11-16 18:36] LABS: HEMO FLAGS DIFF FINAL
[2016-11-16 18:37] LABS: HEMATOCRIT 19.8 % (39.0-51.0)
[2016-11-16] MEDS ORDERED: PHARMACY ORDERED LAB ONE (19:45)
[2016-11-16] MEDS: JUVEN POWDER 1 PACK G-TUBE SCH (23:12)
[2016-11-17] VITALS (18 sets, daily range): BP systolic 98–160; BP diastolic 49–84; PULSE 83–113; RESP 15–22; TEMP 98.2–100.4; O2SAT 92–100
[2016-11-17] MEDS: PROPOFOL 1000 MG/100 ML INJ 100 ML IV SCH ×6 (02:07→22:15)
[2016-11-17] MEDS: oxyCODONE HCL ORAL CONC 20 MG/ML SYRINGE PO SCH ×6 (03:00→22:15)
[2016-11-17 04:03] LABS: ALT (GPT) 55 U/L (12-78); ANION GAP 6 MEQ/L (5-15); AST (GOT) 31 U/L (15-37); BICARBONATE 30.3 MEQ/L (21.0-32.0); BLOOD UREA NITROGEN 26 MG/DL (7-18); CHLORIDE 106 MEQ/L (98-107); GLOMERULAR FILTRATION RATE 112 ML/MIN (>89); MAGNESIUM 1.7 MG/DL (1.5-2.5); POTASSIUM 3.7 MEQ/L (3.5-5.1); SODIUM (NA) 142 MEQ/L (136-145)
[2016-11-17 04:05] LABS: ALKALINE PHOSPHATASE 92 U/L (45-117); TOTAL BILIRUBIN ADULT 0.5 MG/DL (0.2-1.0)
[2016-11-17] MEDS: CHLORHEXIDINE GLUCONATE 2 % 1 PACK (2 CLOTHS) TOP SCH (04:16)
[2016-11-17 04:24] LABS: AUTOMATED NEUTROPHIL # 5.3 TH/MM3 (1.8-7.7); BASOPHIL % 0.4 % (0.0-2.0); EOSINOPHIL # 0.4 TH/MM3 (0-0.4); EOSINOPHIL % 5.9 % (0.0-4.0); LYMPH % 15.5 % (9.0-44.0); LYMPHOCYTE # 1.1 TH/MM3 (1.0-4.8); MEAN CELL VOLUME 86.9 FL (80.0-100.0); MEAN CORPUSCULAR HEMOGLOBIN 29.1 PG (27.0-34.0); MEAN CORPUSCULAR HGB CONC 33.5 % (32.0-36.0); MONO % 4.6 % (0.0-8.0); NEUT % 73.6 % (16.0-70.0); PLATELET COUNT 149 TH/MM3 (150-450); RED BLOOD COUNT 2.04 MIL/MM3 (4.50-5.90); RED CELL DISTRIBUTION WIDTH 15.8 % (11.6-17.2); WHITE BLOOD COUNT 7.2 TH/MM3 (4.0-11.0)
[2016-11-17 04:30] LABS: HEMO FLAGS DIFF FINAL
[2016-11-17 04:32] LABS: HEMATOCRIT 17.7 % (39.0-51.0)
[2016-11-17] MEDS: OXACILLIN INJ 2 GM in SODIUM CHLORIDE 0.9% INJ 100 ML IV SCH ×6 (05:20→23:57)
[2016-11-17] MEDS: VANCOMYCIN 1,000 MG/NS 250 ML IV SCH ×6 (05:21→20:51)
[2016-11-17] MEDS: CHLORHEXIDINE 0.12% (ORAL KIT) 15 ML CUP MT SCH ×2 (08:00→20:00)
[2016-11-17] MEDS: LACTULOSE SYRUP 20 GM/30 ML CUP PEG SCH (08:09)
[2016-11-17] MEDS: chlordiazePOXIDE 25 MG CAP PO SCH ×2 (08:09→20:51)
[2016-11-17] MEDS: FLUCONAZOLE 100 MG TAB PO SCH (08:10)
[2016-11-17] MEDS: AMANTADINE HCL SOLN 100 MG/10 ML UDC PO SCH ×2 (08:10→11:27)
[2016-11-17] MEDS: LEVOFLOXACIN 750 MG TAB PO SCH (08:10)
[2016-11-17] MEDS: fentaNYL DRIP 250 ML IV SCH ×2 (08:32→16:00)
[2016-11-17] MEDS: JUVEN POWDER 1 PACK G-TUBE SCH ×2 (09:00→20:51)
[2016-11-17] MEDS ORDERED: FUROSEMIDE 20 MG/2 ML VIAL IV PUSH ONE (09:45)
[2016-11-17] MEDS ORDERED: POTASSIUM CHLORIDE 20 MEQ PWD PACKET PEG ONE (09:45)
--- NOTE | 2016-11-17 09:49 | HHI.CCPN ---
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 His course was complicated by persistent respiratory failure requiring tracheostomy, intracerebral abscess, and severe aortic insufficiency with at least 4 episodes of flash pulmonary edema and near fatal hypoxic respiratory failure. He was evaluated by 2 cardio thoracic surgeons at this institution and deemed not to be a surgical candidate. He was then transferred to [facility] for an outside opinion, where cardiac thoracic surgery at that facility along with infectious disease and neurology at that facility deemed him to be not a surgical candidate. He reports to [facility] in transfer back from [facility]. He remained stable without change and acute clinical status. He is still intubated and encephalopathic. Additional history is unobtainable from the patient. 11/04: agitation persists. cr slightly better. no significant change. ID prefers to change back to oxacillin. another long family discussion today: family has found a facility in [place] they are interested in transferring him to for 3rd opinion. 11/05: Patient remains heavily sedated with propofol and fentanyl for agitation. Severe agitation causes him to go into flash pulmonary edema. On sedation lightening patient moves uncontrollably. Otherwise have been stable overnight. 11/06: CXR with continued pulmonary interstitial edema and venous congestion. RV , PA enlarged consistent with chronic overload. Tmax 99. We have produced a prerenal azotemia appropriately so and oxygen diffusion remains acceptable. This remains uncompensated heart failure from a mechanical problem with a poor prognosis. 11/07: Decreased heat rate and fever today. No improvement in neuro status. 11/08: Continued problems with severe agitation. 11/09: Will need to start librium. He is very tolerant to propofol and fentanyl and at risk to disconnect ventilator. Still requiring elevated PEEP - frothy edema fluid otherwise. 11/10: Prerenal azotemia developing, will reduce bumex by 50%. No change in neurological status. 11/11: Renal function acceptable; purposefully running a little dry. No change in neurological function. 11/12: No change in neuro status. 11/13: Afebrile. No change in neuro status. 11/14: Temp 100.4. No change in neuro status. Less agitated on amantadine and geodon. Taper off propofol. Consulting neuro surgeons from [facility] have reviewed head CTs. They think operative risk for AVR is excessive because of recent bleed in head. 11/15: CXR with worsening interstitial edema. Increase Bumex. No neuro change. 11/16: Afebrile Overnight. Currently 99. Remains on sedation with propofol and fentanyl drips. PEEP at 10. Subjective: 11/17: Tmax 100. Tolerating tube feeding Jevity 1.5 at 70 cc an hour. One bowel movement. PEEP down to 8. Objective Vital Signs Date Time Temp Pulse Resp B/P Pulse Ox O2 Delivery O2 Flow Rate FiO2 11/17/16 08:00 40 11/17/16 08:00 102 11/17/16 07:59 98 11/17/16 07:00 Mechanical Ventilator 11/17/16 04:00 99.0 16 98/49 Intake and Output 11/16/16 11/16/16 11/17/16 08:00 16:00 00:00 Intake Total 1346 ml 770 ml 1702 ml Output Total 650.0 ml 1200 ml 650 ml Balance 696.0 ml -430 ml 1052 ml Result Diagram: 11/17/16 0318 11/17/16 0318 Other Results Microbiology Date/Time Procedure Status Source Growth 11/12/16 14:50 Aerobic Blood Culture - Preliminary Resulted Blood Peripheral NO GROWTH IN 4 DAYS 11/12/16 14:50 Anaerobic Blood Culture - Preliminary Resulted Blood Peripheral NO GROWTH IN 4 DAYS 11/12/16 13:00 Urine Culture - Final Complete Urine Catheterized Urine Cassandra Albicans 11/12/16 13:00 Gram Stain - Final Complete Sputum Endotracheal 11/12/16 13:00 Sputum Culture - Final Complete Sputum Endotracheal HEAVY GROWTH NORMAL RESPIRATORY CONNOR Objective Remarks GENERAL: Young male, lying in bed, encephalopathic, trach in place, on a ventilator HEENT: Normocephalic. Atraumatic. WING. Mucous membranes are moist NECK: Trachea is midline. No JVD. CHEST: Tracheostomy in place, site clean. Good crow air movement. Basilar crackles. CARDIOVASCULAR: RRR, no JVD. ABDOMEN: Soft, nontender, nondistended. No guarding. PEG tube in place. BACK: Sacral decubitus gauge to. MUSCULOSKELETAL: Pulses 2+. No peripheral edema. NEUROLOGICAL: Does not follow commands. Withdraws 4 limbs, moves all extremities spontaneously. Left upper extremity minimal strength. A/P Assessment and Plan Assessment: This is a 26-year-old male with infective aortic valve endocarditis , intracerebral septic emboli with intracerebral abscess and hemorrhagic conversion of infarctions, severe CHF exacerbation secondary to valvulopathy, severe persistent encephalopathy, chronic respiratory failure. He re-presents from [facility] for ongoing management. Based on his echo, along with the input from outside hospital consultants, I agree with their assessment that he is likely not a surgical candidate at this time. At this point, without surgery, he would certainly , and with surgery, likely given his multiple medical comorbidities, he may . Given that he is young, I think it is reasonable to give the patient and additional 2 weeks to see if we can medically optimize him from a neurologic and cardiovascular standpoint. Likely this will be unsuccessful given that without surgical repair, the patient will not be able to stay out of heart failure. Patient is DNR now, but continue our aggressive medical management for an additional 2 weeks. If at that time he is not clinically improved, I think that we have a responsibility to the patient to pursue comfort measures at that time. Mother protests that agreement - states she is so agitated "she might kill somebody". Neuro/Psych: Bilateral parietal embolic CVA/hemorrhagic with surrounding vasogenic edema with 3 mm leftward shift Last CT brain 11/07 revealed stable embolic events as above Currently propofol 50 mcg/kg Minutes/fentanyl drip at 250 g for sedation/ analgesia while intubatedVentilator synchrony Goal RASS -2 Daily sedation vacation On amantadine 200 mg by tube at 7 AM and noon Librium 50 mg tube twice a day for agitation CV: Severe CHF exacerbation secondary to valvulopathy Severe aortic valve insufficiency Hypertension -- repeat ISABEL 11/03: severe AI. preserved EF. left pleural effusion Currently metoprolol 25 mg by mouth twice a day for hypertension Bumex decreased to 1 mg IV every 12 hours Resp: Vent dependent respiratory failure status post tracheostomy Pulmonary edema Bilateral infiltrates right greater than left PRVC 15/525/1.4//40 Ventilator bundle Duo nebs every 6 hours with albuterol every 2 hours. Dyspnea Chest x-ray 11/16 revealed worsening right-sided versus left-sided pulmonary infiltrate/effusions. GI: Mild protein calorie malnutrition Currently on Jevity 1.5 at 70 cc an hour. Protonix for GI prophylaxis Kristi-Colace for bowel regimen : Jerez catheter if indicated Endo: Sliding-scale insulin if indicated to maintain euglycemia Renal: Monitor urine output Accurate I's and O's Heme: Leukocytosis Normocytic anemia Monitor CBC daily. Transfusing 2 units PRBCs today. Recheck at 1500 hrs. along with coags. ID: Infective Aortic Valve Endocarditis Candiduria -- Abx per ID, Continue IV Oxacillin, Levaquin, vancomycin and Diflucan Pertinent cultures 11/12 - urine - candiduria 11/12 - blood cultures 2 - no growth Blood culture 2 from 11/04/16 Last positive blood cultures 10/06/16 -- daily cbc -- Culture for fevers. FEN: Replace electrolytes as clinically indicated MSK: Sacral decubitus ulcer stage II Wound care evaluate and treat Access - Utilize peripheral IV. Central line if indicated Prophylaxis - GI -Protonix - DVT - SCD/pharmacological prophylaxis contraindicated with aortic valve vegetation with bilateral parietal hemorrhagic embolic strokes with surrounding edema Level II Filiberto Pacheco MD Nov 17, 2016 09:49
[2016-11-17] MEDS: METOPROLOL TARTRATE 25 MG TAB PO SCH ×2 (10:02→20:51)
[2016-11-17] MEDS: MAGNESIUM SULFATE 1 GM PREMIX 100 ML IV SCH ×2 (10:03→10:12)
[2016-11-17] MEDS: BUMETANIDE INJ 1 MG/4 ML VIAL IV PUSH SCH ×2 (11:27→22:15)
--- NOTE | 2016-11-17 11:27 | HHI.IDPN ---
Note Infectious Disease Note Patient is sedated. No distress. Low grade fever. On vent. 45% FIO2. Noted to have mckinley trach secretions. CXR has increased infiltrates. 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 Post tracheostomy and PEG. Allergies: Coded Allergies: Hydrocodone (Verified Allergy, Unknown, Nausea/Vomiting, 10/04/16) Mother called Dentist to verify Sulfa (Verified Allergy, Unknown, 09/30/16) Toradol (Verified Allergy, Unknown, 09/30/16) Past Medical History Substance abuse ADHD Degenerative disc disease ANTIBIOTICS: Oxacillin. Diflucan. Levaquin. Vancomycin. OBJECTIVE: Vital Signs Date Time Temp Pulse Resp B/P Pulse Ox O2 Delivery O2 Flow Rate FiO2 11/17/16 10:00 94 11/17/16 08:00 40 11/17/16 08:00 102 11/17/16 08:00 98.4 102 21 112/63 100 11/17/16 07:59 98 40 11/17/16 07:00 93 Mechanical Ventilator 40 11/17/16 06:00 111 11/17/16 04:00 90 11/17/16 04:00 40 11/17/16 04:00 99.0 90 16 98/49 100 11/17/16 03:50 100 40 11/17/16 02:00 86 11/17/16 00:22 100 40 11/17/16 00:00 98.6 96 17 102/51 100 11/17/16 00:00 40 11/17/16 00:00 96 11/16/16 22:00 100 11/16/16 20:03 95 40 11/16/16 20:00 40 11/16/16 20:00 100.0 108 21 110/56 95 11/16/16 20:00 121 11/16/16 19:00 94 Mechanical Ventilator 40 11/16/16 16:00 98.3 118 24 104/54 97 11/16/16 16:00 40 11/16/16 15:54 96 40 11/16/16 14:00 40 11/16/16 12:00 98.3 108 15 106/53 93 11/16/16 12:00 40 11/16/16 11:42 92 40 11/16/16 11/16/16 11/17/16 15:00 23:00 07:00 Intake Total 770 ml 1702 ml 862 ml Output Total 1200 ml 650 ml 1100 ml Balance -430 ml 1052 ml -238 ml Intake IV Total 290 ml 973 ml 488 ml Tube Feeding 480 ml 609 ml 374 ml Tube Irrigant 120 ml 0 ml Output Urine Total 1200 ml 650 ml 1100 ml Tube Feeding Residual Discard 0 ml 0 ml # Bowel Movements 1 0 Laboratory Tests Test 11/16/16 11/17/16 17:57 03:18 White Blood Count 9.9 TH/MM3 7.2 TH/MM3 Red Blood Count 2.26 MIL/MM3 2.04 MIL/MM3 Hemoglobin 6.4 GM/DL 5.9 GM/DL Hematocrit 19.8 % 17.7 % Mean Corpuscular Volume 87.4 FL 86.9 FL Mean Corpuscular Hemoglobin 28.3 PG 29.1 PG Mean Corpuscular Hemoglobin 32.4 % 33.5 % Concent Red Cell Distribution Width 15.9 % 15.8 % Platelet Count 173 TH/MM3 149 TH/MM3 Mean Platelet Volume 8.8 FL 8.8 FL Neutrophils (%) (Auto) 76.0 % 73.6 % Lymphocytes (%) (Auto) 14.3 % 15.5 % Monocytes (%) (Auto) 4.3 % 4.6 % Eosinophils (%) (Auto) 5.0 % 5.9 % Basophils (%) (Auto) 0.4 % 0.4 % Neutrophils # (Auto) 7.5 TH/MM3 5.3 TH/MM3 Lymphocytes # (Auto) 1.4 TH/MM3 1.1 TH/MM3 Monocytes # (Auto) 0.4 TH/MM3 0.3 TH/MM3 Eosinophils # (Auto) 0.5 TH/MM3 0.4 TH/MM3 Basophils # (Auto) 0.0 TH/MM3 0.0 TH/MM3 CBC Comment DIFF FINAL DIFF FINAL Differential Comment Laboratory Tests Test 11/16/16 11/17/16 04:58 03:18 Sodium Level 142 MEQ/L 142 MEQ/L Potassium Level 3.7 MEQ/L 3.7 MEQ/L Chloride Level 107 MEQ/L 106 MEQ/L Carbon Dioxide Level 27.3 MEQ/L 30.3 MEQ/L Anion Gap 8 MEQ/L 6 MEQ/L Blood Urea Nitrogen 28 MG/DL 26 MG/DL Creatinine 0.88 MG/DL 0.83 MG/DL Estimat Glomerular Filtration 105 ML/MIN 112 ML/MIN Rate Random Glucose 112 MG/DL 100 MG/DL Calcium Level 8.6 MG/DL 8.9 MG/DL Phosphorus Level 3.9 MG/DL Magnesium Level 1.7 MG/DL Total Bilirubin 0.5 MG/DL Aspartate Amino Transf 31 U/L (AST/SGOT) Alanine Aminotransferase 55 U/L (ALT/SGPT) Alkaline Phosphatase 92 U/L Total Protein 6.7 GM/DL Albumin 2.0 GM/DL Laboratory Tests Test 11/15/16 11/16/16 03:50 04:58 Sodium Level 140 MEQ/L 142 MEQ/L Potassium Level 4.1 MEQ/L 3.7 MEQ/L Chloride Level 106 MEQ/L 107 MEQ/L Carbon Dioxide Level 25.7 MEQ/L 27.3 MEQ/L Anion Gap 8 MEQ/L 8 MEQ/L Blood Urea Nitrogen 30 MG/DL 28 MG/DL Creatinine 0.81 MG/DL 0.88 MG/DL Estimat Glomerular Filtration 115 ML/MIN 105 ML/MIN Rate Random Glucose 94 MG/DL 112 MG/DL Calcium Level 9.1 MG/DL 8.6 MG/DL Total Bilirubin 0.6 MG/DL Aspartate Amino Transf 38 U/L (AST/SGOT) Alanine Aminotransferase 51 U/L (ALT/SGPT) Alkaline Phosphatase 79 U/L Total Protein 6.8 GM/DL Albumin 2.2 GM/DL Chest X-Ray 11/16/16 0000 Signed Impressions: Service Date/Time: Wednesday, November 16, 2016 12:39 - CONCLUSION: 1. There continues to be bilateral interstitial and air space pulmonary infiltrates in the lungs. There appears to be an overall increase in the pulmonary nfiltrates in the right lung compared to the prior exam. 2. There's been a mild improvement in the left perihilar infiltrates compared to the prior study. Omari Moya MD Chest X-Ray 11/14/16 0000 Signed Impressions: Service Date/Time: Monday, November 14, 2016 12:41 - CONCLUSION: Increasing bilateral interstitial and airspace infiltrates. Omari Moya MD Chest X-Ray 11/08/16 0400 Signed Impressions: Service Date/Time: October 04:24 - CONCLUSION: Persistent but slightly improved consolidation left lower lung. Diffuse hazy opacities in the central right lung. Cayden Haile MD Head CT 11/07/16 0000 Signed Impressions: Service Date/Time: October 04:12 - CONCLUSION: Stable size of the hemorrhages with surrounding edema right and left parietal regions. Slight decrease in midline shift towards the left. Cayden Haile MD Chest X-Ray 11/03/16 0000 Signed Impressions: Service Date/Time: Thursday, November 03, 2016 10:48 - CONCLUSION: Improving aeration of the lung preciado compared to the prior study. Omari Moya MD PHYSICAL EXAM. GENERAL: No acute distress. On the vent. HEENT: No icterus. No conjunctival erythema. NECK: Supple. No adenopathy. LUNGS: Coarse bilateral rhonchi. CARDIAC: Regular rate and rhythm. (+) 4/6 DALILA LSB. ABDOMEN: Soft, Non distended. EXTREMITIES: No clubbing, cyanosis or edema. No embolic phenomena seen. SKIN: No rash. Dry warm and moist. Assessment and Plan IMPRESSION MSSA AV endocarditis. Last positive blood culture 10/04/16. 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 Respiratory failure S/P trach Recent Enterobacter PNA - treated. Cassandra in UC 10/30 Treated. Now has candiduria. FEVER. ?new nosocomial infection. Negative cultures. Lung infiltrates. ? CHF vs infection. RECOMMENDATION Obtain new sputum culture. Continue IV Oxacillin. Continue PO Fluconazole. Continue Levaquin. Continue Vancomycin. Monitor Temps. Nemesio Jackson MD Nov 17, 2016 11:27
[2016-11-17] MEDS: PANTOPRAZOLE SODIUM 40 MG VIAL IV PUSH SCH (14:40)
[2016-11-17 16:02] LABS: HEMATOCRIT 23.6 % (39.0-51.0); REVIEW FLAG FINAL
[2016-11-17 16:17] LABS: APTT (PATIENT) 33.2 SEC (24.3-30.1); INTERNATIONAL NORMALIZED RATIO 1.2 RATIO; PROTHROMBIN TIME - PATIENT 13.4 SEC (9.8-11.6)
[2016-11-17] MEDS: RESP: ALBUTEROL 2.5 MG/IPRATROPIUM 0.5 MG NEB (PRN) INH (19:40)
[2016-11-18] VITALS (18 sets, daily range): BP systolic 118–157; BP diastolic 53–63; PULSE 93–109; RESP 17–32; TEMP 99.4–102.6; O2SAT 90–100
[2016-11-18] MEDS ORDERED: SODIUM CHLOR 0.9% 250 ML INJ 250 ML ONE (03:16)
[2016-11-18] MEDS: OXACILLIN INJ 2 GM in SODIUM CHLORIDE 0.9% INJ 100 ML IV SCH ×6 (03:19→23:39)
[2016-11-18] MEDS: oxyCODONE HCL ORAL CONC 20 MG/ML SYRINGE PO SCH ×6 (03:19→23:39)
[2016-11-18] MEDS: PROPOFOL 1000 MG/100 ML INJ 100 ML IV SCH ×3 (03:20→22:50)
[2016-11-18] MEDS: fentaNYL DRIP 250 ML IV SCH ×2 (03:20→22:50)
[2016-11-18] MEDS: VANCOMYCIN 1,000 MG/NS 250 ML IV SCH ×2 (03:20)
[2016-11-18] MEDS ORDERED: PHARMACY ORDERED LAB ONE (03:45)
[2016-11-18] MEDS: CHLORHEXIDINE GLUCONATE 2 % 1 PACK (2 CLOTHS) TOP SCH (04:00)
[2016-11-18 04:16] LABS: AUTOMATED NEUTROPHIL # 8.6 TH/MM3 (1.8-7.7); BASOPHIL # 0.1 TH/MM3 (0-0.2); BASOPHIL % 0.6 % (0.0-2.0); EOSINOPHIL # 0.4 TH/MM3 (0-0.4); EOSINOPHIL % 3.4 % (0.0-4.0); HEMATOCRIT 21.9 % (39.0-51.0); HEMO FLAGS DIFF FINAL; LYMPH % 10.7 % (9.0-44.0); LYMPHOCYTE # 1.1 TH/MM3 (1.0-4.8); MEAN CELL VOLUME 86.7 FL (80.0-100.0); MEAN CORPUSCULAR HEMOGLOBIN 28.6 PG (27.0-34.0); MONO % 3.9 % (0.0-8.0); NEUT % 81.4 % (16.0-70.0); PLATELET COUNT 151 TH/MM3 (150-450); RED BLOOD COUNT 2.52 MIL/MM3 (4.50-5.90); RED CELL DISTRIBUTION WIDTH 15.2 % (11.6-17.2); WHITE BLOOD COUNT 10.6 TH/MM3 (4.0-11.0)
[2016-11-18 04:45] LABS: ANION GAP 6 MEQ/L (5-15); AST (GOT) 27 U/L (15-37); BICARBONATE 29.7 MEQ/L (21.0-32.0); BLOOD UREA NITROGEN 30 MG/DL (7-18); CHLORIDE 105 MEQ/L (98-107); GLOMERULAR FILTRATION RATE 106 ML/MIN (>89); MAGNESIUM 1.8 MG/DL (1.5-2.5); POTASSIUM 4.1 MEQ/L (3.5-5.1); SODIUM (NA) 141 MEQ/L (136-145)
[2016-11-18 04:54] LABS: ALKALINE PHOSPHATASE 89 U/L (45-117); ALT (GPT) 47 U/L (12-78); TOTAL BILIRUBIN ADULT 0.6 MG/DL (0.2-1.0)
[2016-11-18] MEDS: AMANTADINE HCL SOLN 100 MG/10 ML UDC PO SCH ×2 (06:06→12:26)
[2016-11-18] MEDS: LACTULOSE SYRUP 20 GM/30 ML CUP PEG SCH (07:51)
[2016-11-18] MEDS: chlordiazePOXIDE 25 MG CAP PO SCH ×2 (07:52→20:59)
[2016-11-18] MEDS: FLUCONAZOLE 100 MG TAB PO SCH (07:52)
[2016-11-18] MEDS: LEVOFLOXACIN 750 MG TAB PO SCH (07:52)
[2016-11-18] MEDS: JUVEN POWDER 1 PACK G-TUBE SCH ×2 (07:52→20:59)
[2016-11-18] MEDS: CHLORHEXIDINE 0.12% (ORAL KIT) 15 ML CUP MT SCH ×2 (08:00→20:58)
[2016-11-18] MEDS: BUMETANIDE INJ 1 MG/4 ML VIAL IV PUSH SCH ×2 (10:03→23:38)
[2016-11-18] MEDS: METOPROLOL TARTRATE 25 MG TAB PO SCH ×2 (10:03→20:59)
[2016-11-18] MEDS: ACETAMINOPHEN 325 MG TAB PO PRN (10:03)
--- NOTE | 2016-11-18 10:33 | HHI.CCPN ---
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 His course was complicated by persistent respiratory failure requiring tracheostomy, intracerebral abscess, and severe aortic insufficiency with at least 4 episodes of flash pulmonary edema and near fatal hypoxic respiratory failure. He was evaluated by 2 cardio thoracic surgeons at this institution and deemed not to be a surgical candidate. He was then transferred to [facility] for an outside opinion, where cardiac thoracic surgery at that facility along with infectious disease and neurology at that facility deemed him to be not a surgical candidate. He reports to [facility] in transfer back from [facility]. He remained stable without change and acute clinical status. He is still intubated and encephalopathic. Additional history is unobtainable from the patient. 11/04: agitation persists. cr slightly better. no significant change. ID prefers to change back to oxacillin. another long family discussion today: family has found a facility in [place] they are interested in transferring him to for 3rd opinion. 11/05: Patient remains heavily sedated with propofol and fentanyl for agitation. Severe agitation causes him to go into flash pulmonary edema. On sedation lightening patient moves uncontrollably. Otherwise have been stable overnight. 11/06: CXR with continued pulmonary interstitial edema and venous congestion. RV , PA enlarged consistent with chronic overload. Tmax 99. We have produced a prerenal azotemia appropriately so and oxygen diffusion remains acceptable. This remains uncompensated heart failure from a mechanical problem with a poor prognosis. 11/07: Decreased heat rate and fever today. No improvement in neuro status. 11/08: Continued problems with severe agitation. 11/09: Will need to start librium. He is very tolerant to propofol and fentanyl and at risk to disconnect ventilator. Still requiring elevated PEEP - frothy edema fluid otherwise. 11/10: Prerenal azotemia developing, will reduce bumex by 50%. No change in neurological status. 11/11: Renal function acceptable; purposefully running a little dry. No change in neurological function. 11/12: No change in neuro status. 11/13: Afebrile. No change in neuro status. 11/14: Temp 100.4. No change in neuro status. Less agitated on amantadine and geodon. Taper off propofol. Consulting neuro surgeons from [facility] have reviewed head CTs. They think operative risk for AVR is excessive because of recent bleed in head. 11/15: CXR with worsening interstitial edema. Increase Bumex. No neuro change. 11/16: Afebrile Overnight. Currently 99. Remains on sedation with propofol and fentanyl drips. PEEP at 10. 11/17: Tmax 100. Tolerating tube feeding Jevity 1.5 at 70 cc an hour. One bowel movement. PEEP down to 8. Subjective: 11/18: Currently afebrile. Tolerating tube feeding at goal. One BM. PEEP was increased to 10. FiO2 60%. Objective Vital Signs Date Time Temp Pulse Resp B/P Pulse Ox O2 Delivery O2 Flow Rate FiO2 11/18/16 08:00 100.6 109 24 130/63 90 11/18/16 08:00 50 11/17/16 19:00 Mechanical Ventilator Intake and Output 11/17/16 11/17/16 11/18/16 08:00 16:00 00:00 Intake Total 862 ml 1422 ml 1216 ml Output Total 1100.0 ml 1550 ml 1050 ml Balance -238.0 ml -128 ml 166 ml Result Diagram: 11/18/16 0349 11/18/16 0347 Other Results Microbiology Date/Time Procedure Status Source Growth 11/17/16 13:10 Gram Stain - Final Resulted Sputum Endotracheal 11/17/16 13:10 Sputum Culture Resulted Sputum Endotracheal Pending Imaging Last 72 hours Impressions Chest X-Ray 11/16/16 0000 Signed Impressions: Service Date/Time: Wednesday, November 16, 2016 12:39 - CONCLUSION: 1. There continues to be bilateral interstitial and air space pulmonary infiltrates in the lungs. There appears to be an overall increase in the pulmonary nfiltrates in the right lung compared to the prior exam. 2. There's been a mild improvement in the left perihilar infiltrates compared to the prior study. Omari Moya MD Objective Remarks GENERAL: Young male, lying in bed, encephalopathic, trach in place, on a ventilator HEENT: Normocephalic. Atraumatic. WING. Mucous membranes are moist NECK: Trachea is midline. No JVD. CHEST: Tracheostomy in place, site clean. Good crow air movement. Basilar crackles. CARDIOVASCULAR: RRR, no JVD. ABDOMEN: Soft, nontender, nondistended. No guarding. PEG tube in place. BACK: Sacral decubitus gauge to. MUSCULOSKELETAL: Pulses 2+. No peripheral edema. NEUROLOGICAL: Does not follow commands. Withdraws 4 limbs, moves all extremities spontaneously. Left upper extremity minimal strength. A/P Assessment and Plan Assessment: This is a 26-year-old male with infective aortic valve endocarditis , intracerebral septic emboli with intracerebral abscess and hemorrhagic conversion of infarctions, severe CHF exacerbation secondary to valvulopathy, severe persistent encephalopathy, chronic respiratory failure. He re-presents from [facility] for ongoing management. Based on his echo, along with the input from outside hospital consultants, I agree with their assessment that he is likely not a surgical candidate at this time. At this point, without surgery, he would certainly , and with surgery, likely given his multiple medical comorbidities, he may . Given that he is young, I think it is reasonable to give the patient and additional 2 weeks to see if we can medically optimize him from a neurologic and cardiovascular standpoint. Likely this will be unsuccessful given that without surgical repair, the patient will not be able to stay out of heart failure. Patient is DNR now, but continue our aggressive medical management for an additional 2 weeks. If at that time he is not clinically improved, I think that we have a responsibility to the patient to pursue comfort measures at that time. Mother protests that agreement - states she is so agitated "she might kill somebody". Neuro/Psych: Bilateral parietal embolic CVA/hemorrhagic with surrounding vasogenic edema with 3 mm leftward shift Last CT brain 11/07 revealed stable embolic events as above Currently propofol 50 mcg/kg Minutes/fentanyl drip at 250 g for sedation/ analgesia while intubatedVentilator synchrony Goal RASS -2 Daily sedation vacation On amantadine 200 mg by tube at 7 AM and noon Librium 50 mg tube twice a day for agitation Scheduled oxycodone 10 mg every 4 hours CV: Severe CHF exacerbation secondary to valvulopathy Severe aortic valve insufficiency Hypertension -- repeat ISABEL 11/03: severe AI. preserved EF. left pleural effusion Currently metoprolol 25 mg by mouth twice a day for hypertension Bumex decreased to 1 mg IV every 12 hours Resp: Vent dependent respiratory failure status post tracheostomy Pulmonary edema Bilateral infiltrates right greater than left PRVC 18/550/1.4/10/60 Ventilator bundle Duo nebs every 6 hours with albuterol every 2 hours. Dyspnea Chest x-ray 11/16 revealed worsening right-sided versus left-sided pulmonary infiltrate/effusions. GI: Mild protein calorie malnutrition Currently on Jevity 1.5 at 70 cc an hour. Protonix for GI prophylaxis Kristi-Colace lactulose for bowel regimen : Jerez catheter if indicated Endo: Sliding-scale insulin if indicated to maintain euglycemia Renal: Monitor urine output Accurate I's and O's Heme: Normocytic anemia Monitor CBC daily. Transfuse 2 units. BC 11/17 ID: Infective Aortic Valve Endocarditis Candiduria -- Abx per ID, Continue IV Oxacillin, Levaquin, vancomycin and Diflucan Pertinent cultures 11/17 - sputum - pending 11/12 - urine - candiduria 11/12 - blood cultures 2 - no growth Blood culture 2 from 11/04/16 Last positive blood cultures 10/06/16 -- daily cbc -- Culture for fevers. FEN: Replace electrolytes as clinically indicated MSK: Sacral decubitus ulcer stage II Wound care evaluate and treat Access - Utilize peripheral IV. Central line if indicated Prophylaxis - GI -Protonix - DVT - SCD/pharmacological prophylaxis contraindicated with aortic valve vegetation with bilateral parietal hemorrhagic embolic strokes with surrounding edema Level II Filiberto Pacheco MD Nov 18, 2016 10:33 Filiberto Pacheco MD Nov 18, 2016 10:33
[2016-11-18] MEDS ORDERED: FUROSEMIDE 20 MG/2 ML VIAL IV PUSH ONE (10:45)
[2016-11-18] MEDS: PANTOPRAZOLE SODIUM 40 MG VIAL IV PUSH SCH (12:26)
--- NOTE | 2016-11-18 15:10 | HHI.IDPN ---
Note Infectious Disease Note Patient on vent. Sedated. Temp spiking higher. Noted to have mckinley trach secretions. Diuresing well. Sputum culture pending. 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 Post tracheostomy and PEG. Allergies: Coded Allergies: Hydrocodone (Verified Allergy, Unknown, Nausea/Vomiting, 10/04/16) Mother called Dentist to verify Sulfa (Verified Allergy, Unknown, 09/30/16) Toradol (Verified Allergy, Unknown, 09/30/16) Past Medical History Substance abuse ADHD Degenerative disc disease ANTIBIOTICS: Oxacillin. Diflucan. Levaquin. Vancomycin. OBJECTIVE: Vital Signs Date Time Temp Pulse Resp B/P Pulse Ox O2 Delivery O2 Flow Rate FiO2 11/18/16 12:00 93 11/18/16 12:00 50 11/18/16 12:00 102.6 93 23 118/53 95 11/18/16 11:40 96 50 11/18/16 10:00 98 11/18/16 08:00 100.6 109 24 130/63 90 11/18/16 08:00 50 11/18/16 08:00 96 11/18/16 07:48 95 50 11/18/16 06:00 96 11/18/16 04:02 98 60 11/18/16 04:00 45 11/18/16 04:00 100.4 98 17 129/61 99 11/18/16 04:00 98 11/18/16 02:00 98 11/18/16 00:00 99 11/18/16 00:00 100.5 99 32 125/56 96 11/18/16 00:00 45 11/17/16 23:48 95 70 11/17/16 22:00 103 11/17/16 20:00 100.4 113 22 160/65 92 11/17/16 20:00 85 11/17/16 20:00 113 11/17/16 19:36 93 85 11/17/16 19:00 92 Mechanical Ventilator 45 11/17/16 18:00 106 11/17/16 16:00 98.2 84 15 117/53 92 11/17/16 16:00 40 11/17/16 16:00 92 45 11/17/16 16:00 92 11/17/16 11/17/16 11/18/16 15:00 23:00 07:00 Intake Total 1422 ml 1216 ml 1893 ml Output Total 1550 ml 1050 ml 1150 ml Balance -128 ml 166 ml 743 ml Intake IV Total 772 ml 565 ml 1057 ml Tube Feeding 650 ml 471 ml 536 ml Other 180 ml 300 ml Output Urine Total 1550 ml 1050 ml 1100 ml Stool Total 0 ml 50 ml Tube Feeding Residual Discard 0 ml # Bowel Movements 1 0 Laboratory Tests Test 11/16/16 11/17/16 11/17/16 11/18/16 17:57 03:18 15:38 03:49 White Blood Count 9.9 TH/MM3 7.2 TH/MM3 10.6 TH/MM3 Red Blood Count 2.26 MIL/MM3 2.04 MIL/MM3 2.52 MIL/MM3 Hemoglobin 6.4 GM/DL 5.9 GM/DL 7.8 GM/DL 7.2 GM/DL Hematocrit 19.8 % 17.7 % 23.6 % 21.9 % Mean Corpuscular Volume 87.4 FL 86.9 FL 86.7 FL Mean Corpuscular Hemoglobin 28.3 PG 29.1 PG 28.6 PG Mean Corpuscular Hemoglobin 32.4 % 33.5 % 33.0 % Concent Red Cell Distribution Width 15.9 % 15.8 % 15.2 % Platelet Count 173 TH/MM3 149 TH/MM3 151 TH/MM3 Mean Platelet Volume 8.8 FL 8.8 FL 8.6 FL Neutrophils (%) (Auto) 76.0 % 73.6 % 81.4 % Lymphocytes (%) (Auto) 14.3 % 15.5 % 10.7 % Monocytes (%) (Auto) 4.3 % 4.6 % 3.9 % Eosinophils (%) (Auto) 5.0 % 5.9 % 3.4 % Basophils (%) (Auto) 0.4 % 0.4 % 0.6 % Neutrophils # (Auto) 7.5 TH/MM3 5.3 TH/MM3 8.6 TH/MM3 Lymphocytes # (Auto) 1.4 TH/MM3 1.1 TH/MM3 1.1 TH/MM3 Monocytes # (Auto) 0.4 TH/MM3 0.3 TH/MM3 0.4 TH/MM3 Eosinophils # (Auto) 0.5 TH/MM3 0.4 TH/MM3 0.4 TH/MM3 Basophils # (Auto) 0.0 TH/MM3 0.0 TH/MM3 0.1 TH/MM3 CBC Comment DIFF FINAL DIFF FINAL DIFF FINAL Differential Comment Laboratory Tests Test 11/17/16 11/18/16 03:18 03:47 Sodium Level 142 MEQ/L 141 MEQ/L Potassium Level 3.7 MEQ/L 4.1 MEQ/L Chloride Level 106 MEQ/L 105 MEQ/L Carbon Dioxide Level 30.3 MEQ/L 29.7 MEQ/L Anion Gap 6 MEQ/L 6 MEQ/L Blood Urea Nitrogen 26 MG/DL 30 MG/DL Creatinine 0.83 MG/DL 0.87 MG/DL Estimat Glomerular Filtration 112 ML/MIN 106 ML/MIN Rate Random Glucose 100 MG/DL 105 MG/DL Calcium Level 8.9 MG/DL 8.4 MG/DL Phosphorus Level 3.9 MG/DL 4.1 MG/DL Magnesium Level 1.7 MG/DL 1.8 MG/DL Total Bilirubin 0.5 MG/DL 0.6 MG/DL Aspartate Amino Transf 31 U/L 27 U/L (AST/SGOT) Alanine Aminotransferase 55 U/L 47 U/L (ALT/SGPT) Alkaline Phosphatase 92 U/L 89 U/L Total Protein 6.7 GM/DL 6.6 GM/DL Albumin 2.0 GM/DL 2.0 GM/DL Microbiology Date/Time Procedure Status Source Growth 11/17/16 13:10 Gram Stain - Final Resulted Sputum Endotracheal 11/17/16 13:10 Sputum Culture Resulted Sputum Endotracheal Pending IMAGING: Chest X-Ray 11/16/16 0000 Signed Impressions: Service Date/Time: Wednesday, November 16, 2016 12:39 - CONCLUSION: 1. There continues to be bilateral interstitial and air space pulmonary infiltrates in the lungs. There appears to be an overall increase in the pulmonary nfiltrates in the right lung compared to the prior exam. 2. There's been a mild improvement in the left perihilar infiltrates compared to the prior study. Omari Moya MD Chest X-Ray 11/14/16 0000 Signed Impressions: Service Date/Time: Monday, November 14, 2016 12:41 - CONCLUSION: Increasing bilateral interstitial and airspace infiltrates. Omari Moya MD Chest X-Ray 11/08/16 0400 Signed Impressions: Service Date/Time: October 04:24 - CONCLUSION: Persistent but slightly improved consolidation left lower lung. Diffuse hazy opacities in the central right lung. Cayden Haile MD Head CT 11/07/16 0000 Signed Impressions: Service Date/Time: October 04:12 - CONCLUSION: Stable size of the hemorrhages with surrounding edema right and left parietal regions. Slight decrease in midline shift towards the left. Cayden Haile MD Chest X-Ray 11/03/16 0000 Signed Impressions: Service Date/Time: Thursday, November 03, 2016 10:48 - CONCLUSION: Improving aeration of the lung preciado compared to the prior study. Omari Moya MD PHYSICAL EXAM. GENERAL: No acute distress. On the vent. Unresponsive. HEENT: No icterus. No conjunctival erythema. NECK: Supple. No adenopathy. LUNGS: Bilateral rhonchi. CARDIAC: Regular rate and rhythm. (+) 4/6 DALILA LSB. ABDOMEN: Soft, Non distended. No palpable mass. EXTREMITIES: No clubbing, cyanosis or edema. No embolic phenomena seen. SKIN: No rash. warm and moist. Assessment and Plan IMPRESSION MSSA AV endocarditis. Last positive blood culture 10/04/16. 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 Respiratory failure S/P trach Recent Enterobacter PNA - treated. Cassandra in UC Treated. FEVER. ?new nosocomial infection. Negative cultures. Repeat sputum culture pending. Lung infiltrates. ? CHF vs infection. RECOMMENDATION Follow sputum culture. Continue IV Oxacillin. Continue PO Fluconazole. Change Levaquin to meropenem. Continue Vancomycin. Monitor Temps. Nemesio Jackson MD Nov 18, 2016 15:10
[2016-11-18] MEDS ORDERED: ASP: Other exception documentation: ( ) PRN (15:15)
[2016-11-18] MEDS ORDERED: MISCELLANEOUS PHARMACY INFORMATION XX PRN ×2 (15:15)
[2016-11-18] MEDS: MEROPENEM INJ 2,000 MG in SODIUM CHLORIDE 0.9% INJ 100 ML IV SCH (17:47)
--- NOTE | 2016-11-18 20:45 | RADRPT ---
EXAM DATE/TIME: 11/18/2016 20:30 [facility] COMPARISON: CT BRAIN W/O CONTRAST, November 08, 2016, 4:12. INDICATIONS : Follow up intracranial hemorrhage. Trauma patient RADIATION DOSE: 40.28 CTDIvol (mGy) MEDICAL HISTORY : Cardiovascular disease. Seizures. SURGICAL HISTORY : None. ENCOUNTER: Subsequent ACUITY: 1 month PAIN SCALE: 0/10 LOCATION: cranial TECHNIQUE: Multiple contiguous axial images were obtained of the head. Using automated exposure control and adj ustment of the mA and/or kV according to patient size, radiation dose was kept as low as reasonably a chievable to obtain optimal diagnostic quality images. DICOM format image data is available electro nically for review and comparison. FINDINGS: There has been a continued mild interval evolution the right temporal lobe hemorrhage with decre ased high density hemorrhage noted and ill-defined edema. This is not significantly changed. The seco nd area of hemorrhage in the left parietal lobe does not appear significantly changed. There is no si gnificant mass effect and no definite midline shift is identified. There is no new hemorrhage for mas s effect. The ventricular system remains within normal limits. The posterior fossa and brainstem are unremarkable. Bone windows demonstrate no evidence of fracture. There is mild motion artifact. 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 CONCLUSION: 1. Mild continued evolution of the right temporal lobe hemorrhage with ill-defined edema 2. The left parietal lobe hemorrhage is not significantly changed. 3. No new hemorrhage or mass effect. 4. No midline shift is identified. Russell Mckeon MD on November 18, 2016 at 20:39 Board Certified Radiologist. This report was verified electronically.
[2016-11-19] VITALS (14 sets, daily range): BP systolic 119–154; BP diastolic 51–64; PULSE 85–94; RESP 18; TEMP 99.1–101.2; O2SAT 95–100
[2016-11-19] MEDS: MEROPENEM INJ 2,000 MG in SODIUM CHLORIDE 0.9% INJ 100 ML IV SCH ×3 (00:22→15:29)
[2016-11-19] MEDS: OXACILLIN INJ 2 GM in SODIUM CHLORIDE 0.9% INJ 100 ML IV SCH ×4 (02:59→15:29)
[2016-11-19] MEDS: CHLORHEXIDINE GLUCONATE 2 % 1 PACK (2 CLOTHS) TOP SCH (02:59)
[2016-11-19] MEDS: oxyCODONE HCL ORAL CONC 20 MG/ML SYRINGE PO SCH ×5 (02:59→17:44)
[2016-11-19] MEDS: ACETAMINOPHEN 325 MG TAB PO PRN (03:06)
[2016-11-19] MEDS: PROPOFOL 1000 MG/100 ML INJ 100 ML IV SCH ×4 (03:54→17:46)
[2016-11-19 04:38] LABS: BASOPHIL % 0.3 % (0.0-2.0); EOSINOPHIL # 0.5 TH/MM3 (0-0.4); EOSINOPHIL % 4.1 % (0.0-4.0); HEMATOCRIT 25.2 % (39.0-51.0); HEMO FLAGS DIFF FINAL; LYMPH % 9.8 % (9.0-44.0); LYMPHOCYTE # 1.1 TH/MM3 (1.0-4.8); MEAN CELL VOLUME 86.6 FL (80.0-100.0); MEAN CORPUSCULAR HGB CONC 33.5 % (32.0-36.0); MONO % 4.5 % (0.0-8.0); NEUT % 81.3 % (16.0-70.0); PLATELET COUNT 167 TH/MM3 (150-450); RED BLOOD COUNT 2.91 MIL/MM3 (4.50-5.90); RED CELL DISTRIBUTION WIDTH 15.2 % (11.6-17.2)
[2016-11-19 05:06] LABS: BICARBONATE 29.5 MEQ/L (21.0-32.0); MAGNESIUM 1.8 MG/DL (1.5-2.5); POTASSIUM 3.6 MEQ/L (3.5-5.1)
[2016-11-19] MEDS: AMANTADINE HCL SOLN 100 MG/10 ML UDC PO SCH ×2 (06:22→11:13)
--- NOTE | 2016-11-19 06:38 | RADRPT ---
EXAM DATE/TIME: 11/19/2016 05:27 [facility] COMPARISON: CHEST SINGLE AP, November 16, 2016, 12:39. INDICATIONS : Short of breath. MEDICAL HISTORY : Cardiovascular disease. IV Drug use. SURGICAL HISTORY : None. ENCOUNTER: Subsequent ACUITY: 1 month PAIN SCORE: 0/10 LOCATION: Bilateral chest FINDINGS: A single view of the chest demonstrates bilateral diffuse infiltrates throughout the lungs. Tracheost itz tube is in good position.. The cardiomediastinal contours are unremarkable. Osseous structures are intact. CONCLUSION: Diffuse bilateral infiltrates with consolidation lung bases similar to the previous study. Loyd Black MD on November 19, 2016 at 6:36 Board Certified Radiologist. This report was verified electronically.
[2016-11-19] MEDS: FLUCONAZOLE 100 MG TAB PO SCH (08:04)
[2016-11-19] MEDS: CHLORHEXIDINE 0.12% (ORAL KIT) 15 ML CUP MT SCH (08:04)
[2016-11-19] MEDS: LACTULOSE SYRUP 20 GM/30 ML CUP PEG SCH (08:04)
[2016-11-19] MEDS: JUVEN POWDER 1 PACK G-TUBE SCH (08:04)
[2016-11-19] MEDS: chlordiazePOXIDE 25 MG CAP PO SCH (08:05)
[2016-11-19] MEDS: METOPROLOL TARTRATE 25 MG TAB PO SCH (08:06)
[2016-11-19] MEDS: fentaNYL DRIP 250 ML IV SCH ×2 (08:40→17:46)
--- NOTE | 2016-11-19 10:18 | HHI.HCPN ---
Reason for visit a. To assist with evaluation and management of symptoms including: dyspnea, agitation, pain, encephalopathy , malnutrition b. To assist medical decision maker(s) with: better understanding of current medical conditions; weighing benefits/burdens of medical treatment options; making medical treatment decisions. Subjective/Interval History 26-year-old patient was re-admitted/transferred back to [facility] in 11/03 from [facility], for ongoing management of endocarditis , aortic valve vegetation. He was transferred to [facility] last week for second opinion regarding and cardiac thoracic surgery for aortic valve replacement. He was evaluated there by their infectious disease, neurology, they deemed him not to be a surgical candidate and thus he was transferred back to [facility]. He has remained stable without changes to his clinical status. Remains intubated, encephalopathic.Palliative care was reconsulted to assist with support to the family, continue with clarification of goals of treatment Patient seen for planned f/up meeting with family. +febrile, tmax 102. Sputum + pseudomonas. On merepenem, oxacillin, diflucan per ID. BC 11/19 pending. CXR =Diffuse bilateral infiltrates with consolidation lung bases similar to the previous study. Repeat CT brain yesterday = 1. Mild continued evolution of the right temporal lobe hemorrhage with ill-defined edema 2. The left parietal lobe hemorrhage is not significantly changed. 3. No new hemorrhage or mass effect. 4. No midline shift is identified. Cont to be on sedation diprivan 50 mcg, fentanyl 250 mcg. Aly d/cd. D/w RN, Critical care To exam minimally responsive, slight withdraw extremities to pain. Tracheostomy to vent. RT in, suctioning, patient was strong cough with suction. . patient is known to palliative care service from prior admission during September, additional HPI as per palliative care consult 10/03/16: He initially presented via EMS 09/30/16 for altered mental status. He apparently been last seen normal by his landlord 2 days prior. Patient apparently presented to the ED 2 days prior for diagnosis of allergic reaction, at that time reporting low-grade fever and congestion. He at that time reported being seen 10 days prior by another physician and had been prescribed antibiotics for a fever. He then developed a red rash and peeling on his hands and feet, complains of generalized weakness and lightheadedness at that presentation. At that time he was prescribed prednisone and to follow-up with local provider. On day of presentation landlord found patient altered and notified EMS. Patient lethargic at presentation and unable to provide additional information. ED record notes family members were called, patient reported to have a rash on his hands and feet for the past 2 weeks and had been seen by a local physician. Family also reporting patient with a history of substance abuse, recently in rehabilitation, last rehabilitation a year ago. * ED course: Patient obtunded at arrival. Lactic acid 3.7, troponin 11.9, alkaline phosphatase 175 area total CK 372. BUN 54, creatinine 1.69, GFR 49. Glucose 116. Salicylate and acetaminophen levels normal. Urine drug screen positive for opiates, amphetamine (on ADDERALL FOR ADHD). Alcohol negative. He was intubated sedated. CXR with no acute process identified.Head CT= significant areas of infarction in the right frontal, temporal, and cerebellar regions as well as a small area of subarachnoid hemorrhage in the superior right parietal region. Patient has early 3 mm of midline shift as well as effacement on the right. * Echo: "hyperdynamic left ventricular function and what appears to be aortic valve vegetations and I measured to be approximally 0.9 x 8.8 cm. This is associated with what appears to be severe aortic regurgitation. There is no pericardial effusion. Right ventricular function is preserved." ID, neurosurgery consulted. Cultures pending. * Infectious disease: Initial cultures sputum :gram-positive cocci pairs and clusters, blood culture gram-positive cocci. CXR worsening. Patient continued on vancomycin, Rocephin, following cultures. * Neurosurgery: Patient with multiple acute septic CVAs, cerebral edema, small subarachnoid hemorrhage, midline shift, metabolic encephalopathy. Follow-up CT , repeat CT for any changes in neuro status. Continue 3% saline, keep sodium elevated ADDITIONAL OUT PT HX PER DOCUMENTS/ RXs PROVIDED BY FAMILY: * EKG, lower spine x-rays per Dr. Prather 07/09/16 * 09/07/16 RX ibuprofen TO replace meloxicam for joint pain, + Adderall 30 mg daily ([facility] pharmacy) * 09/13/16 RX omeprazole, clindamycin 150 mg 4 tablets twice a day, acyclovir 200 mg 1 by mouth 5 times a day [address] Herrera ([facility] pharmacy) * 09/14/16- RX prednisone Dr. Prather, doxycycline 100 mg 1 by mouth every 12 hours; family reports diagnosed with a "viral illness 09/17" ([facility] pharmacy) * 09/[address] [facility] [address] Bj Luis Tylenol 3 quantity 20, acyclovir 200 mg 1 by mouth 5 times a day 10 days * s/p tracheostomy, PEG tube week of 10/15/16 * During clinical course through September patient was some neurological improvement at some point weaning off sedation following commands, localizing, arousable though with ongoing episodes of agitation requiring various sedatives including Precedex, fentanyl, Diprivan. * Follow-up CT identified small brain hemorrhage; at that point patient was not a candidate for cardiac surgical intervention. CTS evaluated and noted patient would require at least 4 weeks on antibiotics, and at least 6 weeks out from brain hemorrhage before surgical intervention could be considered (follow-up CT brain stable) * Repeat echo again noted aortic vegetation, with possible perforation of aortic valve leaflets; CVS again reconsulted to consider surgery patient continues to have episodes of pulmonary edema felt to be secondary to severe aortic valve insufficiency. Concern that without surgical intervention patient may not tolerate ventilator weaning due to cardiac status. During periods of sedation weaning patient is following commands. At one point off of mechanical vent tolerating T piece for couple of days at a time though required ventilation again due to pulmonary edema, hypoxic respiratory failure. CVS reevaluation determines not a good surgical candidate, he was evaluated by [facility], subsequently declined. [facility] excepted for evaluation and possible valve replacement. * Was transferred to [facility] 10/31/16. Family/friend interactions Met w family approximately 40 min ( mom, dad, sister, aunts, mother's significant other) with Dr Dominguez Jordin WOOD MILLER palliative SW, and Guy Hernandez ECDIS N NAVIGATION OPERATOR discussion included: Review of prolonged hospital course, multiple medical conditions most significantly brain, heart, lung involvement in Silm's current critical condition. Review of Very limited treatment options--patient has been evaluated by multiple other facility cardiovascular surgery for valve, not a surgical candidate per multiple facilities physicians. Patient with no improvement thus far, continues to remain high risk for ongoing complications and clinical deterioration due to inability to replace valve. Option to continue supportive care, which could include transfer to LTAC for possible ventilator weaning/management; which would again be fraught with risk for complication, setback and . Other option is to transition to comfort focus , hospice to provide comfort measures at end-of-life. Review of hospice services, anticipatory guidance of end-of-life, all questions answered. Family does not want to see Slim suffer any longer, they feel by continuing medical treatments they are prolonging his suffering and , as he is not showing clinical improvement thus far. They wish to remove artificial measures- ventilator etc., transition to comfort focus. They would like care center placement. If possible they would like to remove the ventilator at a hospice facility as to ensure he does not experience any discomfort during transportation. Sister voices concern that the transfer he recently experienced to [place] he was very uncomfortable upon arrival. They are going to look at a care center facility today, likely they will want to make the transition either later today or tomorrow. Advance Directives Living Will: Never completed Health Care Surrogate: Never completed Durable Power of Fabric Coating Supervisor: Never completed Objective Vital Signs Date Time Temp Pulse Resp B/P Pulse Ox O2 Delivery O2 Flow Rate FiO2 11/19/16 10:00 85 11/19/16 08:00 99.4 89 18 120/57 100 11/19/16 08:00 89 11/19/16 08:00 40 11/19/16 07:22 18 11/19/16 07:17 98 40 11/19/16 06:00 92 11/19/16 04:00 40 11/19/16 04:00 101.2 92 18 119/51 98 11/19/16 04:00 92 11/19/16 03:38 100 40 11/19/16 02:00 92 11/19/16 00:00 40 11/19/16 00:00 94 11/19/16 00:00 100.2 94 18 132/60 95 11/18/16 23:57 94 40 11/18/16 22:00 97 11/18/16 21:28 97 40 11/18/16 20:20 100 100 11/18/16 20:00 99.6 108 21 157/63 95 11/18/16 20:00 40 11/18/16 20:00 108 11/18/16 16:00 95 11/18/16 16:00 99.4 96 21 125/53 97 11/18/16 16:00 40 11/18/16 15:33 100 40 11/18/16 14:00 95 11/18/16 12:00 93 11/18/16 12:00 50 11/18/16 12:00 102.6 93 23 118/53 95 11/18/16 11:40 96 50 Intake & Output 11/19/16 11/19/16 07:00 19:00 Intake Total 3229 ml Output Total 2050 ml Balance 1179 ml IV Total 1726 ml Tube Feeding 893 ml Packed Cells 250 ml Other 360 ml Output Urine Total 2050 ml # Bowel Movements 2 Physical Exam CONSTITUTIONAL/GENERAL: This is an adequately nourished patient, sedated on [facility] vent TUBES/LINES/DRAINS: PIV UE,Jerez catheter, PEG tube, rectal drain, SCDs SKIN: No jaundice, rashes, or lesions. Skin temperature warm, dry. reported wound to sacrum- not visualized. NECK: Trachea, tracheostomy midline. Supple, nontender. CARDIOVASCULAR: Heart regular, no murmur. peripheral pulses palpable. Trace Distal extremity edema. RESPIRATORY/CHEST: Symmetric, unlabored respirations via tracheostomy to mechanical vent. Clear, some faint scattered rhonchi. Breath sounds equal bilaterally. GASTROINTESTINAL: Abdomen soft, flat, no apparent tenderness though limited assessment, nondistended. No palpable masses. Bowel sounds present. TF infusing to PEG site asymptomatic NEUROLOGICAL: Sedated on mechanical vent. Eyes closed, did not vigorously stimulate. Appears comfortable,very slight withdrawal to pain on extremities. PSYCHIATRIC: No obvious anxiety/depression--limited assessment due to clinical condition, sedatives. . Diagnostic Tests Laboratory Laboratory Tests Test 11/16/16 11/16/16 11/17/16 11/17/16 17:57 22:34 03:18 05:16 White Blood Count 9.9 TH/MM3 7.2 TH/MM3 (4.0-11.0) (4.0-11.0) Red Blood Count 2.26 MIL/MM3 2.04 MIL/MM3 (4.50-5.90) (4.50-5.90) Hemoglobin 6.4 GM/DL 5.9 GM/DL (13.0-17.0) (13.0-17.0) Hematocrit 19.8 % 17.7 % (39.0-51.0) (39.0-51.0) Mean Corpuscular Volume 87.4 FL 86.9 FL (80.0-100.0) (80.0-100.0) Mean Corpuscular Hemoglobin 28.3 PG 29.1 PG (27.0-34.0) (27.0-34.0) Mean Corpuscular Hemoglobin 32.4 % 33.5 % Concent (32.0-36.0) (32.0-36.0) Red Cell Distribution Width 15.9 % 15.8 % (11.6-17.2) (11.6-17.2) Platelet Count 173 TH/MM3 149 TH/MM3 (150-450) (150-450) Mean Platelet Volume 8.8 FL 8.8 FL (7.0-11.0) (7.0-11.0) Neutrophils (%) (Auto) 76.0 % 73.6 % (16.0-70.0) (16.0-70.0) Lymphocytes (%) (Auto) 14.3 % 15.5 % (9.0-44.0) (9.0-44.0) Monocytes (%) (Auto) 4.3 % (0.0-8.0) 4.6 % (0.0-8.0) Eosinophils (%) (Auto) 5.0 % (0.0-4.0) 5.9 % (0.0-4.0) Basophils (%) (Auto) 0.4 % (0.0-2.0) 0.4 % (0.0-2.0) Neutrophils # (Auto) 7.5 TH/MM3 5.3 TH/MM3 (1.8-7.7) (1.8-7.7) Lymphocytes # (Auto) 1.4 TH/MM3 1.1 TH/MM3 (1.0-4.8) (1.0-4.8) Monocytes # (Auto) 0.4 TH/MM3 0.3 TH/MM3 (0-0.9) (0-0.9) Eosinophils # (Auto) 0.5 TH/MM3 0.4 TH/MM3 (0-0.4) (0-0.4) Basophils # (Auto) 0.0 TH/MM3 0.0 TH/MM3 (0-0.2) (0-0.2) CBC Comment DIFF FINAL DIFF FINAL Differential Comment Vancomycin Level Trough 22.2 MCG/ML (5.0-10.0) Sodium Level 142 MEQ/L (136-145) Potassium Level 3.7 MEQ/L (3.5-5.1) Chloride Level 106 MEQ/L (98-107) Carbon Dioxide Level 30.3 MEQ/L (21.0-32.0) Anion Gap 6 MEQ/L (5-15) Blood Urea Nitrogen 26 MG/DL (7-18) Creatinine 0.83 MG/DL (0.60-1.30) Estimat Glomerular Filtration 112 ML/MIN Rate (>89) Random Glucose 100 MG/DL (74-106) Calcium Level 8.9 MG/DL (8.5-10.1) Phosphorus Level 3.9 MG/DL (2.5-4.9) Magnesium Level 1.7 MG/DL (1.5-2.5) Total Bilirubin 0.5 MG/DL (0.2-1.0) Aspartate Amino Transf 31 U/L (15-37) (AST/SGOT) Alanine Aminotransferase 55 U/L (12-78) (ALT/SGPT) Alkaline Phosphatase 92 U/L (45-117) Total Protein 6.7 GM/DL (6.4-8.2) Albumin 2.0 GM/DL (3.4-5.0) Blood Type O NEGATIVE Antibody Screen NEGATIVE Crossmatch Leukocyte-Reduced Red Blood Cells Blood Bank Comment Test 11/17/16 11/17/16 11/18/16 11/18/16 06:05 15:38 03:47 03:49 Crossmatch Leukocyte-Reduced Red Blood Cells Blood Bank Comment Hemoglobin 7.8 GM/DL 7.2 GM/DL (13.0-17.0) (13.0-17.0) Hematocrit 23.6 % 21.9 % (39.0-51.0) (39.0-51.0) Prothrombin Time 13.4 SEC (9.8-11.6) Prothromb Time International 1.2 RATIO Ratio Activated Partial 33.2 SEC Thromboplast Time (24.3-30.1) Fibrinogen 403 mg/dL (227-377) Sodium Level 141 MEQ/L (136-145) Potassium Level 4.1 MEQ/L (3.5-5.1) Chloride Level 105 MEQ/L (98-107) Carbon Dioxide Level 29.7 MEQ/L (21.0-32.0) Anion Gap 6 MEQ/L (5-15) Blood Urea Nitrogen 30 MG/DL (7-18) Creatinine 0.87 MG/DL (0.60-1.30) Estimat Glomerular Filtration 106 ML/MIN Rate (>89) Random Glucose 105 MG/DL (74-106) Calcium Level 8.4 MG/DL (8.5-10.1) Phosphorus Level 4.1 MG/DL (2.5-4.9) Magnesium Level 1.8 MG/DL (1.5-2.5) Total Bilirubin 0.6 MG/DL (0.2-1.0) Aspartate Amino Transf 27 U/L (15-37) (AST/SGOT) Alanine Aminotransferase 47 U/L (12-78) (ALT/SGPT) Alkaline Phosphatase 89 U/L (45-117) Total Protein 6.6 GM/DL (6.4-8.2) Albumin 2.0 GM/DL (3.4-5.0) Vancomycin Level Trough 33.6 MCG/ML (5.0-10.0) White Blood Count 10.6 TH/MM3 (4.0-11.0) Red Blood Count 2.52 MIL/MM3 (4.50-5.90) Mean Corpuscular Volume 86.7 FL (80.0-100.0) Mean Corpuscular Hemoglobin 28.6 PG (27.0-34.0) Mean Corpuscular Hemoglobin 33.0 % Concent (32.0-36.0) Red Cell Distribution Width 15.2 % (11.6-17.2) Platelet Count 151 TH/MM3 (150-450) Mean Platelet Volume 8.6 FL (7.0-11.0) Neutrophils (%) (Auto) 81.4 % (16.0-70.0) Lymphocytes (%) (Auto) 10.7 % (9.0-44.0) Monocytes (%) (Auto) 3.9 % (0.0-8.0) Eosinophils (%) (Auto) 3.4 % (0.0-4.0) Basophils (%) (Auto) 0.6 % (0.0-2.0) Neutrophils # (Auto) 8.6 TH/MM3 (1.8-7.7) Lymphocytes # (Auto) 1.1 TH/MM3 (1.0-4.8) Monocytes # (Auto) 0.4 TH/MM3 (0-0.9) Eosinophils # (Auto) 0.4 TH/MM3 (0-0.4) Basophils # (Auto) 0.1 TH/MM3 (0-0.2) CBC Comment DIFF FINAL Differential Comment Test 11/19/16 03:59 White Blood Count 11.0 TH/MM3 (4.0-11.0) Red Blood Count 2.91 MIL/MM3 (4.50-5.90) Hemoglobin 8.4 GM/DL (13.0-17.0) Hematocrit 25.2 % (39.0-51.0) Mean Corpuscular Volume 86.6 FL (80.0-100.0) Mean Corpuscular Hemoglobin 29.0 PG (27.0-34.0) Mean Corpuscular Hemoglobin 33.5 % Concent (32.0-36.0) Red Cell Distribution Width 15.2 % (11.6-17.2) Platelet Count 167 TH/MM3 (150-450) Mean Platelet Volume 8.7 FL (7.0-11.0) Neutrophils (%) (Auto) 81.3 % (16.0-70.0) Lymphocytes (%) (Auto) 9.8 % (9.0-44.0) Monocytes (%) (Auto) 4.5 % (0.0-8.0) Eosinophils (%) (Auto) 4.1 % (0.0-4.0) Basophils (%) (Auto) 0.3 % (0.0-2.0) Neutrophils # (Auto) 9.0 TH/MM3 (1.8-7.7) Lymphocytes # (Auto) 1.1 TH/MM3 (1.0-4.8) Monocytes # (Auto) 0.5 TH/MM3 (0-0.9) Eosinophils # (Auto) 0.5 TH/MM3 (0-0.4) Basophils # (Auto) 0.0 TH/MM3 (0-0.2) CBC Comment DIFF FINAL Differential Comment Sodium Level 139 MEQ/L (136-145) Potassium Level 3.6 MEQ/L (3.5-5.1) Chloride Level 102 MEQ/L (98-107) Carbon Dioxide Level 29.5 MEQ/L (21.0-32.0) Anion Gap 8 MEQ/L (5-15) Blood Urea Nitrogen 34 MG/DL (7-18) Creatinine 0.89 MG/DL (0.60-1.30) Estimat Glomerular Filtration 103 ML/MIN Rate (>89) Random Glucose 119 MG/DL (74-106) Calcium Level 8.8 MG/DL (8.5-10.1) Phosphorus Level 3.1 MG/DL (2.5-4.9) Magnesium Level 1.8 MG/DL (1.5-2.5) Random Vancomycin Level 14.4 COMMENT Result Diagram: 11/19/16 0359 11/19/16 0359 Microbiology Microbiology Date/Time Procedure Status Source Growth 11/17/16 13:10 Gram Stain - Final Resulted Sputum Endotracheal 11/17/16 13:10 Sputum Culture - Preliminary Resulted Pseudomonas Species 11/19/16 03:59 Aerobic Blood Culture Received Blood Peripheral Pending 11/19/16 03:59 Anaerobic Blood Culture Received Blood Peripheral Pending 11/19/16 04:07 Aerobic Blood Culture Received Blood Peripheral Pending 11/19/16 04:07 Anaerobic Blood Culture Received Blood Peripheral Pending Imaging Last Impressions Chest X-Ray 11/19/16 0600 Signed Impressions: Service Date/Time: Saturday, November 19, 2016 05:27 - CONCLUSION: Diffuse bilateral infiltrates with consolidation lung bases similar to the previous study. Lyod Black MD Head CT 11/18/16 0000 Signed Impressions: Service Date/Time: Friday, November 18, 2016 20:30 - CONCLUSION: 1. Mild continued evolution of the right temporal lobe hemorrhage with ill-defined edema 2. The left parietal lobe hemorrhage is not significantly changed. 3. No new hemorrhage or mass effect. 4. No midline shift is identified. Russell Mckeon MD Procedures 6/5tracheostomy, PEG tube . Assessment and Plan Disease Oriented Problem List: (1) Aortic valve endocarditis (2) CVA (cerebral vascular accident) Comment: multiple CVAs, Septic Intracerebral emboli (3) Cerebral septic emboli (4) Aortic valve insufficiency Comment: severe (5) CHF (congestive heart failure) Comment: secondary to valvulopathy . (6) Acute on chronic respiratory failure with hypoxia (7) Encephalopathy (8) Intracranial hemorrhage Comment: Hemorrhagic conversion of prior CVAs (9) Previous IVDU (10) Severe protein-calorie malnutrition Symptom Scale: (1) Dyspnea 0-10 Scale: Unable to quantify (2) Encephalopathy 0-10 Scale: Unable to quantify (3) Agitation 0-10 Scale: Unable to quantify (4) Pain 0-10 Scale: Unable to quantify (5) Malnutrition 0-10 Scale: Unable to quantify Comment: Albumin 2.7. Pertinent Non-Medical Issues Psychosocial:originally from [place], lived in [place] since . HS education. Was incarcerated and then in drug rehabilitation in [facility]. 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 Has 1 sister Elizabeth (Aany) ,lives in [place], mother lives in [place]. Father (parents ) lived in [place] with support from family there. Supported by local friends, coworkers, apartment landlord. Spiritual:believes in God, no particular affiliation. would want ongoing bobbin fixer support. Legal:Patient is not able to participate in decision-making due to clinical condition. He is not . Per [place] statutes his parents would be legal decision makers, mother is serving as primary supported by his sister and father. Mother has POA paperwork, however this does NOT include medical decision making. Ethical issues impacting care: Important Contacts mother Felicita Roberts [phone] sister Elizabeth Rios [phone] father Pradeep Rios [phone] . Prognosis This unfortunate 26-year-old man initially presented to the ED in September with altered mental status, he has been found to have mixed septic/cardiogenic shock with multiple areas of septic emboli CVA secondary to aortic valve endocarditis. He then developed a small ICH. He has had prolonged ICU course, with episodes of agitation, pulmonary edema and hypoxic respiratory failure, 2/ 2 to severe aortic valve insufficiency. + Aortic valve leaflet perforations. CVS evaluated here for possible valve replacement, patient not felt to be good surgical candidate. Was declined by [facility]. Was transferred and evaluated by [facility] last week, also declined due to not felt to be good surgical candidate, transferred back to [facility] 11/03/16. Remains in critical condition, medical treatments maximized. Patient with very poor chance of survival without a valve replacement, and is currently not a candidate for a valve due to poor clinical condition. Not felt likely to improve enough to obtain valve replacement. High risk for ongoing clinical complications and . . Code Status: No Code Plan * Legal decision maker: Patient is not able to participate in decision-making due to clinical condition. He is not . Per [place] statutes his parents would be legal decision makers, mother is serving as primary supported by his sister and father. Mother has POA paperwork however this does not include medical decision-making. * Goals: During prior palliative consultation and multiple interactions palliative has met w pt mother, father, sister at length. Patient sister appears to have a reasonable understanding of conditions, prognosis. Patient mother , father appear to have a very simple understanding of conditions and prognosis. At that time family's goals were aggressive, Patient's mother is hoping for a miracle and wants to continue whatever measures available to help patient recover. 11/13/16: goals remain aggressive. Approaching 2 week timeframe as initially discussed w family/energy audit advisor, planned to revisit conditions/goals/options/ consider comfort transition at 2 weeks. Plan for family meeting with energy audit advisor Dr Dominguez or Dr Coats tomorrow 11/14/16 between 1-3pm (actual time to be clarified w mother tomorrow am) to review conditions, prognosis, options/ plan going forward. Mother, father, sister (via phone) to participate. 11/14/16 : Family meeting with mother, father, sister, aunt, palliative care , energy audit advisor: The would like to contact additional family out of the area so they may make travel arrangements to see Slim. Mother, father appropriately tearful, struggling to accept that Slim is not improving despite his prolonged hospitalization, however they also do not wish to see him potentially in pain and without quality of life. Supportive listening provided. Some limited exploration of anticipatory guidance (would need more in depth conversations RE anticipatory guidance for withdrawal of life support) Tentative plans to meet again next Saturday11/19/16 to further review withdrawal of life support, possibly early next week. For now continue with all available treatments. 11/16/16: Met w mother, aunt today via phone. Family has additional concerns they would like to meet again with intensivists, and any other providers available on Saturday to revisit goals of treatment and discuss further giving Slim a few more weeks for any possible recovery/improvement. They remain in close communication with sister Anay who is planning to fly and on Saturday. They would like to speak more with providers before any further changes in treatment, do not wish to proceed with withdrawal of life support at this time. Felicita will touch base with palliative sometime around 9 AM Saturday to confirm meeting time for Saturday.--->>> meeting planned for around 09Saturday11/19/16 : Family meeting: Met with family at length today, see subjective for additional detail. In summary: Family does not want to see Slim suffer any longer, they feel by continuing medical treatments they are prolonging his suffering and as he is not showing clinical improvement thus far. They wish to remove artificial measures-ventilator etc., transition to comfort focus. They would like care center placement. If possible they would like to remove the ventilator at a hospice facility as to ensure he does not experience any discomfort during transportation. Sister voices concern that the transfer he recently experienced to [place] he was very uncomfortable upon arrival. They are going to look at a care center facility today, likely they will want to make the transition either later today or tomorrow. Hospice orders entered, I did speak to hospice attending physician Dr. Younger, who is in agreement to accept patient on vent and remove vent there. * CODE STATUS: NO CODE/ DNR * SYMPTOMS: --dyspnea- intub[facility]. [facility] status post tracheostomy. has had difficulty weaning off of vent/staying off of vent due to agitation, pulmonary edema 2/2 severe aortic valve insufficiency -- agitation- hx substance abuse; hx ADD, on adderall. + Embolic CVA, +new hemorrhage 10/16 to the right temporal lobe (follow-up CT imaging stable) Has had periods of restlessness, agitation ongoing during prolonged hospital course. Has been on various sedatives including Precedex, Diprivan, fentanyl. Has at times when lightened and able to follow commands, moved all 4 extremities-- though he is not been able to be lightened recently, has not demonstrated following commands recently. Currently on fentanyl 250/mcgs hr, diprivan 50 mcgs/kg/min--calm today during exam. -- encephalopathy- multifactorial-- +sepsis, embolic CVA, +new hemorrhage 10/16 to the right temporal lobe (follow-up CT imaging stable 11/07) hx substance abuse, EEG neg seizure . -- malnutrition -- s/p PEG (replaced by GI 11/05 due to pt dislodging) . Ongoing TF. albumin 2.8 --Pain: Potential sources would include: History of degenerative disc disease ; has had prolonged bedbound status during > 1 month hospitalization, + stage III wounds to coccyx.started on ATC Oxycodone 10mg per tube q4h scheduled * Palliative care will continue to follow during hospital course as condition evolves, to assist patient/decision-maker with understanding of medical conditions, weighing benefits/burdens of treatment options, for clarification of goals of treatment. Additionally will assist with any symptoms of palliative concern Time Spent Total Floor Time (mins): 60 >50% Counseling/Coord of Care: Yes (d/w CM, critical care, hospice admissions, primary) Attestation To help prompt me to consider important information that might be impacting today's encounter and assessment, information from prior notes written by myself or my colleagues may have been "brought forward" into today's note. My signature on this note, however, is an attestation that I personally performed the exam, history, and/or decision-making noted today, and, unless otherwise indicated, the interactions with patient, family, and staff as well as the review of records all occurred today. I also attest that the listed assessment and stated plan reflect my best clinical judgment today based on the combination of historical information, prior notes, and today's exam/ interactions. When time spent is documented, it refers only to time spent today by the signer, or if indicated, combined time spent today by collaborating physician/nurse practitioner. Sandy Liu 10, 2017 10:17
[2016-11-19] MEDS: BUMETANIDE INJ 1 MG/4 ML VIAL IV PUSH SCH (10:36)
[2016-11-19] MEDS: PANTOPRAZOLE SODIUM 40 MG VIAL IV PUSH SCH (12:24)
[2016-11-19] MEDS ORDERED: VANCOMYCIN 1,000 MG/NS 250 ML IV SCH ×2 (13:00)
--- NOTE | 2016-11-19 13:15 | HHI.IDPN ---
Note Infectious Disease Note Patient on vent. Sedated. Temp lower. Noted to have mckinley trach secretions. Sputum culture has pseudomonas species. 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 Post tracheostomy and PEG. Allergies: Coded Allergies: Hydrocodone (Verified Allergy, Unknown, Nausea/Vomiting, 10/04/16) Mother called Dentist to verify Sulfa (Verified Allergy, Unknown, 09/30/16) Toradol (Verified Allergy, Unknown, 09/30/16) Past Medical History Substance abuse ADHD Degenerative disc disease ANTIBIOTICS: Oxacillin. Diflucan. Meropenem. Vancomycin. OBJECTIVE: Vital Signs Date Time Temp Pulse Resp B/P Pulse Ox O2 Delivery O2 Flow Rate FiO2 11/19/16 12:00 99.8 90 18 135/61 97 11/19/16 12:00 90 11/19/16 12:00 40 11/19/16 11:00 100 40 11/19/16 10:00 85 11/19/16 08:00 99.4 89 18 120/57 100 11/19/16 08:00 89 11/19/16 08:00 40 11/19/16 07:22 18 11/19/16 07:17 98 40 11/19/16 06:00 92 11/19/16 04:00 40 11/19/16 04:00 101.2 92 18 119/51 98 11/19/16 04:00 92 11/19/16 03:38 100 40 11/19/16 02:00 92 11/19/16 00:00 40 11/19/16 00:00 94 11/19/16 00:00 100.2 94 18 132/60 95 11/18/16 23:57 94 40 11/18/16 22:00 97 11/18/16 21:28 97 40 11/18/16 20:20 100 100 11/18/16 20:00 99.6 108 21 157/63 95 11/18/16 20:00 40 11/18/16 20:00 108 11/18/16 16:00 95 11/18/16 16:00 99.4 96 21 125/53 97 11/18/16 16:00 40 11/18/16 15:33 100 40 11/18/16 14:00 95 11/18/16 11/18/16 11/19/16 15:00 23:00 07:00 Intake Total 1256 ml 1909 ml 1320 ml Output Total 1500 ml 900 ml 1150 ml Balance -244 ml 1009 ml 170 ml Intake Oral Supplement 706 ml IV Total 550 ml 994 ml 732 ml Tube Feeding 425 ml 468 ml Packed Cells 250 ml Other 240 ml 120 ml Output Urine Total 1500 ml 900 ml 1150 ml # Bowel Movements 1 1 Laboratory Tests Test 11/17/16 11/18/16 11/19/16 15:38 03:49 03:59 Hemoglobin 7.8 GM/DL 7.2 GM/DL 8.4 GM/DL Hematocrit 23.6 % 21.9 % 25.2 % White Blood Count 10.6 TH/MM3 11.0 TH/MM3 Red Blood Count 2.52 MIL/MM3 2.91 MIL/MM3 Mean Corpuscular Volume 86.7 FL 86.6 FL Mean Corpuscular Hemoglobin 28.6 PG 29.0 PG Mean Corpuscular Hemoglobin 33.0 % 33.5 % Concent Red Cell Distribution Width 15.2 % 15.2 % Platelet Count 151 TH/MM3 167 TH/MM3 Mean Platelet Volume 8.6 FL 8.7 FL Neutrophils (%) (Auto) 81.4 % 81.3 % Lymphocytes (%) (Auto) 10.7 % 9.8 % Monocytes (%) (Auto) 3.9 % 4.5 % Eosinophils (%) (Auto) 3.4 % 4.1 % Basophils (%) (Auto) 0.6 % 0.3 % Neutrophils # (Auto) 8.6 TH/MM3 9.0 TH/MM3 Lymphocytes # (Auto) 1.1 TH/MM3 1.1 TH/MM3 Monocytes # (Auto) 0.4 TH/MM3 0.5 TH/MM3 Eosinophils # (Auto) 0.4 TH/MM3 0.5 TH/MM3 Basophils # (Auto) 0.1 TH/MM3 0.0 TH/MM3 CBC Comment DIFF FINAL DIFF FINAL Differential Comment Laboratory Tests Test 11/18/16 11/19/16 03:47 03:59 Sodium Level 141 MEQ/L 139 MEQ/L Potassium Level 4.1 MEQ/L 3.6 MEQ/L Chloride Level 105 MEQ/L 102 MEQ/L Carbon Dioxide Level 29.7 MEQ/L 29.5 MEQ/L Anion Gap 6 MEQ/L 8 MEQ/L Blood Urea Nitrogen 30 MG/DL 34 MG/DL Creatinine 0.87 MG/DL 0.89 MG/DL Estimat Glomerular Filtration 106 ML/MIN 103 ML/MIN Rate Random Glucose 105 MG/DL 119 MG/DL Calcium Level 8.4 MG/DL 8.8 MG/DL Phosphorus Level 4.1 MG/DL 3.1 MG/DL Magnesium Level 1.8 MG/DL 1.8 MG/DL Total Bilirubin 0.6 MG/DL Aspartate Amino Transf 27 U/L (AST/SGOT) Alanine Aminotransferase 47 U/L (ALT/SGPT) Alkaline Phosphatase 89 U/L Total Protein 6.6 GM/DL Albumin 2.0 GM/DL Microbiology Date/Time Procedure Status Source Growth 11/17/16 13:10 Gram Stain - Final Resulted Sputum Endotracheal 11/17/16 13:10 Sputum Culture - Preliminary Resulted Pseudomonas Species 11/19/16 03:59 Aerobic Blood Culture Received Blood Peripheral Pending 11/19/16 03:59 Anaerobic Blood Culture Received Blood Peripheral Pending 11/19/16 04:07 Aerobic Blood Culture Received Blood Peripheral Pending 11/19/16 04:07 Anaerobic Blood Culture Received Blood Peripheral Pending IMAGING: Chest X-Ray 11/19/16 0600 Signed Impressions: Service Date/Time: Saturday, November 19, 2016 05:27 - CONCLUSION: Diffuse bilateral infiltrates with consolidation lung bases similar to the previous study. Loyd Black MD Chest X-Ray 11/16/16 0000 Signed Impressions: Service Date/Time: Wednesday, November 16, 2016 12:39 - CONCLUSION: 1. There continues to be bilateral interstitial and air space pulmonary infiltrates in the lungs. There appears to be an overall increase in the pulmonary nfiltrates in the right lung compared to the prior exam. 2. There's been a mild improvement in the left perihilar infiltrates compared to the prior study. Omari Moya MD Chest X-Ray 11/14/16 0000 Signed Impressions: Service Date/Time: Monday, November 14, 2016 12:41 - CONCLUSION: Increasing bilateral interstitial and airspace infiltrates. Omari Moya MD Chest X-Ray 11/08/16 0400 Signed Impressions: Service Date/Time: October 04:24 - CONCLUSION: Persistent but slightly improved consolidation left lower lung. Diffuse hazy opacities in the central right lung. Cayden Haile MD Head CT 11/07/16 0000 Signed Impressions: Service Date/Time: October 04:12 - CONCLUSION: Stable size of the hemorrhages with surrounding edema right and left parietal regions. Slight decrease in midline shift towards the left. Cayden Haile MD Chest X-Ray 11/03/16 0000 Signed Impressions: Service Date/Time: Thursday, November 03, 2016 10:48 - CONCLUSION: Improving aeration of the lung preciado compared to the prior study. Omari Moya MD PHYSICAL EXAM. GENERAL: No acute distress. On the vent. Unresponsive. HEENT: No icterus. No conjunctival erythema. NECK: Supple. No adenopathy. LUNGS: Bilateral rhonchi. CARDIAC: Regular rate and rhythm. (+) 4/6 DALILA LSB. ABDOMEN: Soft, (+) bowel sounds. Non distended. No palpable mass. EXTREMITIES: No clubbing, cyanosis or edema. No embolic phenomena seen. SKIN: No rash. warm and moist. Assessment and Plan IMPRESSION MSSA AV endocarditis. Last positive blood culture 10/04/16. - Severe AI, LEGAL COORDINATOR septic embolic lesions, brain abscess. Respiratory failure S/P trach Recent Enterobacter PNA - treated. Cassandra in UC Treated. FEVER. PNA. Sputum culture has pseudomonas likely resistant to Levaquin which may explain the fevers. RECOMMENDATION Follow sputum culture for sensitivity of the pseudomonas.. Continue IV Oxacillin. Continue PO Fluconazole. Continue meropenem. Stop Vancomycin. Monitor Temps. Nemesio Jackson MD Nov 19, 2016 13:15
--- NOTE | 2016-11-19 13:40 | HHI.CCPN ---
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 His course was complicated by persistent respiratory failure requiring tracheostomy, intracerebral abscess, and severe aortic insufficiency with at least 4 episodes of flash pulmonary edema and near fatal hypoxic respiratory failure. He was evaluated by 2 cardio thoracic surgeons at this institution and deemed not to be a surgical candidate. He was then transferred to [facility] for an outside opinion, where cardiac thoracic surgery at that facility along with infectious disease and neurology at that facility deemed him to be not a surgical candidate. He reports to [facility] in transfer back from [facility]. He remained stable without change and acute clinical status. He is still intubated and encephalopathic. Additional history is unobtainable from the patient. 11/04: agitation persists. cr slightly better. no significant change. ID prefers to change back to oxacillin. another long family discussion today: family has found a facility in [place] they are interested in transferring him to for 3rd opinion. 11/05: Patient remains heavily sedated with propofol and fentanyl for agitation. Severe agitation causes him to go into flash pulmonary edema. On sedation lightening patient moves uncontrollably. Otherwise have been stable overnight. 11/06: CXR with continued pulmonary interstitial edema and venous congestion. RV , PA enlarged consistent with chronic overload. Tmax 99. We have produced a prerenal azotemia appropriately so and oxygen diffusion remains acceptable. This remains uncompensated heart failure from a mechanical problem with a poor prognosis. 11/07: Decreased heat rate and fever today. No improvement in neuro status. 11/08: Continued problems with severe agitation. 11/09: Will need to start librium. He is very tolerant to propofol and fentanyl and at risk to disconnect ventilator. Still requiring elevated PEEP - frothy edema fluid otherwise. 11/10: Prerenal azotemia developing, will reduce bumex by 50%. No change in neurological status. 11/11: Renal function acceptable; purposefully running a little dry. No change in neurological function. 11/12: No change in neuro status. 11/13: Afebrile. No change in neuro status. 11/14: Temp 100.4. No change in neuro status. Less agitated on amantadine and geodon. Taper off propofol. Consulting neuro surgeons from [facility] have reviewed head CTs. They think operative risk for AVR is excessive because of recent bleed in head. 11/15: CXR with worsening interstitial edema. Increase Bumex. No neuro change. 11/16: Afebrile Overnight. Currently 99. Remains on sedation with propofol and fentanyl drips. PEEP at 10. 11/17: Tmax 100. Tolerating tube feeding Jevity 1.5 at 70 cc an hour. One bowel movement. PEEP down to 8. Subjective: 11/18: Currently afebrile. Tolerating tube feeding at goal. One BM. PEEP was increased to 10. FiO2 60%. 11/19: Tmax 98.4. O2 requirements decrease currently at .FIO2 40%. Objective Vital Signs Date Time Temp Pulse Resp B/P Pulse Ox O2 Delivery O2 Flow Rate FiO2 11/19/16 12:00 99.8 90 18 135/61 97 11/19/16 12:00 40 11/17/16 19:00 Mechanical Ventilator Intake and Output 11/18/16 11/18/16 11/19/16 08:00 16:00 00:00 Intake Total 1893 ml 1256 ml 1909 ml Output Total 1150 ml 1500 ml 900 ml Balance 743 ml -244 ml 1009 ml Result Diagram: 11/19/16 0359 11/19/16 0359 Imaging Last 72 hours Impressions Chest X-Ray 11/16/16 0000 Signed Impressions: Service Date/Time: Wednesday, November 16, 2016 12:39 - CONCLUSION: 1. There continues to be bilateral interstitial and air space pulmonary infiltrates in the lungs. There appears to be an overall increase in the pulmonary nfiltrates in the right lung compared to the prior exam. 2. There's been a mild improvement in the left perihilar infiltrates compared to the prior study. Omari Moya MD Objective Remarks GENERAL: Young male, lying in bed, encephalopathic, tracheostomy in situ, on a ventilator HEENT: Normocephalic. Atraumatic. WING. Mucous membranes are moist NECK: Trachea is midline. No JVD. CHEST: Tracheostomy in place, site clean. Good crow air movement. Basilar crackles. CARDIOVASCULAR: RRR, no JVD. ABDOMEN: Soft, nontender, nondistended. No guarding. PEG tube in place. BACK: Sacral decubitus stage 2. MUSCULOSKELETAL: Pulses 2+. No peripheral edema. NEUROLOGICAL: Does not follow commands. Withdraws 4 limbs, moves all extremities spontaneously. Left upper extremity minimal strength. A/P Assessment and Plan Assessment: This is a 26-year-old male with infective aortic valve endocarditis , intracerebral septic emboli with intracerebral abscess and hemorrhagic conversion of infarctions, severe CHF exacerbation secondary to valvulopathy, severe persistent encephalopathy, chronic respiratory failure. He re-presents from [facility] for ongoing management. Based on his echo, along with the input from outside hospital consultants, I agree with their assessment that he is likely not a surgical candidate at this time. At this point, without surgery, he would certainly , and with surgery, likely given his multiple medical comorbidities, he may . Given that he is young, I think it is reasonable to give the patient and additional 2 weeks to see if we can medically optimize him from a neurologic and cardiovascular standpoint. Likely this will be unsuccessful given that without surgical repair, the patient will not be able to stay out of heart failure. Patient is DNR now, but continue our aggressive medical management for an additional 2 weeks. If at that time he is not clinically improved, I think that we have a responsibility to the patient to pursue comfort measures at that time. Mother protests that agreement - states she is so agitated "she might kill somebody". Neuro/Psych: Bilateral parietal embolic CVA/hemorrhagic with surrounding vasogenic edema with 3 mm leftward shift Last CT brain 11/07 revealed stable embolic events as above Currently propofol 50 mcg/kg /min ,fentanyl drip at 250 g/ hr for sedation/ analgesia while intubatedVentilator synchrony Goal RASS -2 Daily sedation vacation On amantadine 200 mg by tube at 7 AM and noon Librium 50 mg tube twice a day for agitation Scheduled oxycodone 10 mg every 4 hours CV: Severe CHF exacerbation secondary to valvulopathy Severe aortic valve insufficiency Hypertension -- repeat ISABEL 11/03: severe AI. preserved EF. left pleural effusion Currently metoprolol 25 mg by mouth twice a day for hypertension Bumex 1 mg IV every 12 hours Resp: Vent dependent respiratory failure status post tracheostomy Pulmonary edema Bilateral infiltrates right greater than left PRVC 18/550/1.4/10/60 Ventilator bundle Duo nebs every 6 hours with albuterol every 2 hours. Dyspnea Chest x-ray 11/16 revealed worsening right-sided versus left-sided pulmonary infiltrate/effusions. GI: Mild protein calorie malnutrition Currently on Jevity 1.5 at 70 cc an hour. No residuals Protonix for GI prophylaxis Kristi-Colace lactulose for bowel regimen : Jerez catheter if indicated Endo: Sliding-scale insulin if indicated to maintain euglycemia Renal: Monitor urine output Accurate I's and O's Heme: Normocytic anemia Monitor CBC daily. Transfuse 2 units. BC 11/17 ID: Infective Aortic Valve Endocarditis Candiduria -- Abx per ID, Continue IV Oxacillin, Levaquin, vancomycin and Diflucan Pertinent cultures 11/17 - sputum - pending 11/12 - urine - candiduria 11/12 - blood cultures 2 - no growth Blood culture 2 from 11/04/16 Last positive blood cultures 10/06/16 -- daily cbc -- Culture for fevers. FEN: Replace electrolytes as clinically indicated MSK: Sacral decubitus ulcer stage II Wound care evaluate and treat Access - Utilize peripheral IV. Central line if indicated Prophylaxis - GI -Protonix - DVT - SCD/pharmacological prophylaxis contraindicated with aortic valve vegetation with bilateral parietal hemorrhagic embolic strokes with surrounding edema Level 2. Dispo: Dr. Dominguez had family meeting along with Palliative Care Medicine a decision was requested for transfer to Hospice by family. A 3 page document was also provided from the family with medical inquiries was placed on the chart.The family was also instructed by Dr. Dominguez on instructions regarding obtaining the patients medical records.Tentative plan for transfer to Hospice in the next 1-2 days. Physician Peggy Pool MD Nov 19, 2016 13:40
--- NOTE | 2016-11-19 14:59 | HHI.DS ---
Discharge Summary Admission Date Nov 03, 2016 at 10:13 Admitting Diagnosis Brief History Is a 26-year-old male well known to the critical care service who initially presented back in September 2016 with altered mental status and was found to have multiple septic intracerebral infarcts secondary to infective aortic valve endocarditis. His course was complicated by persistent respiratory failure requiring tracheostomy, intracerebral abscess, and severe aortic insufficiency with at least 4 episodes of flash pulmonary edema and near fatal hypoxic respiratory failure. He was evaluated by 2 cardio thoracic surgeons at this institution and deemed not to be a surgical candidate. He was then transferred to [facility] for an outside opinion, where cardiac thoracic surgery at that facility along with infectious disease and neurology at that facility deemed him to be not a surgical candidate. He reports to [facility] in transfer back from [facility]. He remained stable without change and acute clinical status. He is still intubated and encephalopathic. Additional history is unobtainable from the patient. CBC/BMP: 11/19/16 0359 11/19/16 0359 Significant Findings Laboratory Tests Test 11/16/16 11/16/16 11/17/16 11/17/16 17:57 22:34 03:18 15:38 Red Blood Count 2.26 MIL/MM3 2.04 MIL/MM3 (4.50-5.90) (4.50-5.90) Hemoglobin 6.4 GM/DL 5.9 GM/DL 7.8 GM/DL (13.0-17.0) (13.0-17.0) (13.0-17.0) Hematocrit 19.8 % 17.7 % 23.6 % (39.0-51.0) (39.0-51.0) (39.0-51.0) Neutrophils (%) (Auto) 76.0 % 73.6 % (16.0-70.0) (16.0-70.0) Eosinophils (%) (Auto) 5.0 % (0.0-4.0) 5.9 % (0.0-4.0) Eosinophils # (Auto) 0.5 TH/MM3 (0-0.4) Vancomycin Level Trough 22.2 MCG/ML (5.0-10.0) Platelet Count 149 TH/MM3 (150-450) Blood Urea Nitrogen 26 MG/DL (7-18) Albumin 2.0 GM/DL (3.4-5.0) Prothrombin Time 13.4 SEC (9.8-11.6) Activated Partial 33.2 SEC Thromboplast Time (24.3-30.1) Fibrinogen 403 mg/dL (227-377) Test 11/18/16 11/18/16 11/19/16 03:47 03:49 03:59 Blood Urea Nitrogen 30 MG/DL (7-18) 34 MG/DL (7-18) Calcium Level 8.4 MG/DL (8.5-10.1) Albumin 2.0 GM/DL (3.4-5.0) Vancomycin Level Trough 33.6 MCG/ML (5.0-10.0) Red Blood Count 2.52 MIL/MM3 2.91 MIL/MM3 (4.50-5.90) (4.50-5.90) Hemoglobin 7.2 GM/DL 8.4 GM/DL (13.0-17.0) (13.0-17.0) Hematocrit 21.9 % 25.2 % (39.0-51.0) (39.0-51.0) Neutrophils (%) (Auto) 81.4 % 81.3 % (16.0-70.0) (16.0-70.0) Neutrophils # (Auto) 8.6 TH/MM3 9.0 TH/MM3 (1.8-7.7) (1.8-7.7) Eosinophils (%) (Auto) 4.1 % (0.0-4.0) Eosinophils # (Auto) 0.5 TH/MM3 (0-0.4) Random Glucose 119 MG/DL (74-106) Hospital Course 26-year-old male well known to the critical care service who initially presented back in September 2016 with altered mental status and was found to have multiple septic intracerebral infarcts secondary to infective aortic valve endocarditis. His course was complicated by persistent respiratory failure requiring tracheostomy, intracerebral abscess, and severe aortic insufficiency with at least 4 episodes of flash pulmonary edema and near fatal hypoxic respiratory failure. He was evaluated by 2 cardio thoracic surgeons at this institution and deemed not to be a surgical candidate. He was then transferred to [facility] for an outside opinion, where cardiac thoracic surgery at that facility along with infectious disease and neurology at that facility deemed him to be not a surgical candidate. He reports to [facility] in transfer back from [facility]. He remained stable without change and acute clinical status. He is still intubated and encephalopathic. Additional history is unobtainable from the patient. 11/04: agitation persists. cr slightly better. no significant change. ID prefers to change back to oxacillin. another long family discussion today: family has found a facility in [place] they are interested in transferring him to for 3rd opinion. 11/05: Patient remains heavily sedated with propofol and fentanyl for agitation. Severe agitation causes him to go into flash pulmonary edema. On sedation lightening patient moves uncontrollably. Otherwise have been stable overnight. 11/06: CXR with continued pulmonary interstitial edema and venous congestion. RV , PA enlarged consistent with chronic overload. Tmax 99. We have produced a prerenal azotemia appropriately so and oxygen diffusion remains acceptable. This remains uncompensated heart failure from a mechanical problem with a poor prognosis. 11/07: Decreased heat rate and fever today. No improvement in neuro status. 11/08: Continued problems with severe agitation. 11/09: Will need to start librium. He is very tolerant to propofol and fentanyl and at risk to disconnect ventilator. Still requiring elevated PEEP - frothy edema fluid otherwise. 11/10: Prerenal azotemia developing, will reduce bumex by 50%. No change in neurological status. 11/11: Renal function acceptable; purposefully running a little dry. No change in neurological function. 11/12: No change in neuro status. 11/13: Afebrile. No change in neuro status. 11/14: Temp 100.4. No change in neuro status. Less agitated on amantadine and geodon. Taper off propofol. Consulting neuro surgeons from [facility] have reviewed head CTs. They think operative risk for AVR is excessive because of recent bleed in head. 11/15: CXR with worsening interstitial edema. Increase Bumex. No neuro change. 11/16: Afebrile Overnight. Currently 99. Remains on sedation with propofol and fentanyl drips. PEEP at 10. 11/17: Tmax 100. Tolerating tube feeding Jevity 1.5 at 70 cc an hour. One bowel movement. PEEP down to 8. Subjective: 11/18: Currently afebrile. Tolerating tube feeding at goal. One BM. PEEP was increased to 10. FiO2 60%. 7/10: Tmax 98.4. O2 requirements decrease currently at .FIO2 40%.After family discussion with Palliative medicine, plan for discharge this evening at 1800 to Hospice medical facility Pt Condition on Discharge: Deteriorating Discharge Disposition: Hospice/Med Facility Discharge Instructions DIET: Follow Instructions for: Nothing By Mouth Activities you can perform: Continue Bedrest Peggy Frye MD Nov 19, 2016 14:59
[2016-11-19] MEDS ORDERED: fentaNYL DRIP 250 ML IV SCH (17:45)
[2016-11-19] MEDS ORDERED: PROPOFOL 1000 MG/100 ML INJ 100 ML IV SCH (17:45)
[2016-11-21] MEDS ORDERED: PHARMACY ORDERED LAB ONE (00:45)
== END 2016-11-19 18:56 | disposition hospice, inpatient (51) | DRG 288 ==
LOC: N03B 11-03 10:13
PROVIDERS: ADMIT Internal Medicine Critical Care Medicine; ATTEND Internal Medicine Critical Care Medicine
PROC: 5A1955Z Respiratory Ventilation, Greater than 96 Consecutive Hours (ICD-10-PCS; principal; 2016-11-03)
PROC: 0T9B70Z Drainage of Bladder with Drainage Device, Via Natural or Artificial Opening (ICD-10-PCS; 2016-11-03)
PROC: B246ZZ4 Ultrasonography of Right and Left Heart, Transesophageal (ICD-10-PCS; 2016-11-03)
PROC: 30233N1 Transfusion of Nonautologous Red Blood Cells into Peripheral Vein, Percutaneous Approach (ICD-10-PCS; 2016-11-06)
PROC: 0D20XUZ Change Feeding Device in Upper Intestinal Tract, External Approach (ICD-10-PCS; 2016-11-06)
DX: I33.0 Acute and subacute infective endocarditis (principal); J96.21 Acute and chronic respiratory failure with hypoxia; G93.6 Cerebral edema; I61.1 Nontraumatic intracerebral hemorrhage in hemisphere, cortical; Z99.11 Dependence on respirator [ventilator] status; E43 Unspecified severe protein-calorie malnutrition; G93.41 Metabolic encephalopathy; Z93.0 Tracheostomy status; L89.153 Pressure ulcer of sacral region, stage 3; E87.3 Alkalosis; K94.23 Gastrostomy malfunction; B37.49 Other urogenital candidiasis; B95.61 Methicillin susceptible Staphylococcus aureus infection as the cause of diseases classified elsewhere; I08.2 Rheumatic disorders of both aortic and tricuspid valves; Z66 Do not resuscitate; Z86.73 Personal history of transient ischemic attack (TIA), and cerebral infarction without residual deficits; I11.0 Hypertensive heart disease with heart failure; I50.9 Heart failure, unspecified; F90.9 Attention-deficit hyperactivity disorder, unspecified type; Y83.3 Surgical operation with formation of external stoma as the cause of abnormal reaction of the patient, or of later complication, without mention of misadventure at the time of the procedure; R13.10 Dysphagia, unspecified; Z51.5 Encounter for palliative care; Z87.891 Personal history of nicotine dependence; D64.9 Anemia, unspecified; E87.6 Hypokalemia; B96.5 Pseudomonas (aeruginosa) (mallei) (pseudomallei) as the cause of diseases classified elsewhere; R52 Pain, unspecified
CPT/HCPCS: 36430; 70450; 71010; 80048; 80053; 80202; 81001; 82948; 83735; 84100; 84132; 84134; 85014; 85018; 85025; 85027; 85384; 85610; 85730; 86850; 86900; 86901; 86920; 87040; 87070; 87077; 87086; 87186; 87205; 87641; 93312; 93320; 93325; 94002; 94003; 94640; 94664; C9113; J0171; J0692; J1120; J1940; J2185; J2250; J2700; J3010; J3370; J3475; J3480; J3486; J7040; J7050; P9016